=== PATIENT | female | born 1950 | race Caucasian/White ===

== ENCOUNTER 2019-05-08 15:18 | Observation (INO) | payer OTHER ==
[2019-05-08 16:20] LABS: Absolute Lymphocytes (CBC) 1.9 K/uL (0.7-4.9); Basophils % 1.1 % (0-1.3); Hematocrit 44.8 % (36.0-45.0); Lymphocytes % 23.1 % (15.3-44.8); MPV 11.3 fL (7.6-11.3); RBC Red Blood Cell Count 4.82 M/uL (3.86-4.86)
[2019-05-08 16:23] LABS: Protime INR 1.04
--- NOTE | 2019-05-08 16:36 | RAD REPORT ---
EXAM DESCRIPTION: Miguelina Single View05/08/2019 4:31 pm CLINICAL HISTORY: Chest pain COMPARISON: 2010 FINDINGS: The lungs appear clear of acute infiltrate. The heart is normal size IMPRESSION: No acute abnormalities displayed
[2019-05-08 16:37] LABS: ALT/SGPT 22 U/L (12-78); AST/SGOT 22 U/L (15-37); Albumin 3.6 g/dL (3.4-5.0); Alkaline Phosphatase 102 U/L (45-117); BUN Blood Urea Nitrogen 11 mg/dL (7-18); Bicarbonate 24 mmol/L (21-32); Bilirubin Direct 0.1 mg/dL (0-0.2); Bilirubin Total 0.6 mg/dL (0.2-1.0); Glucose Level 90 mg/dL (74-106); Magnesium 2.2 mg/dL (1.8-2.4); NT PRO-BNP 29 pg/mL (<125); Potassium 3.9 mmol/L (3.5-5.1); Protein, Total 7.8 g/dL (6.4-8.2); Sodium Level 139 mmol/L (136-145); Troponin (Emerg Dept Use Only) < 0.02 ng/mL (0.0-0.045)
--- NOTE | 2019-05-08 18:03 | RAD REPORT ---
EXAM DESCRIPTION: CT - Angio Aorta For Dissection - 05/08/2019 5:40 pm CLINICAL HISTORY: . Chest and abd pain COMPARISON: None TECHNIQUE: Computed tomography angiography of the chest, abdomen pelvis were obtained. 100 cc Isovue 370 was administered intravenously. Coronal and sagittal reconstruction were performed. MIP 3D reconstruction was performed All CT scans are performed using dose optimization technique as appropriate and may include automated exposure control or mA/KV adjustment according to patient size. FINDINGS: An aortic dissection is not seen. An aortic aneurysm is not displayed. The celiac, SMA and ANA MARÍA are patent . A lung consolidation is not present. A pericardial effusion is not seen. A pleural effusion is not n oted. Mild fatty liver The Spleen, pancreas adrenals kidneys demonstrate no significant abnormality. The appendix is normal. Small to moderate hiatal hernia Diverticula stem from the colon without evidence of diverticulitis. 13 millimeter fatty structure abu ts the sigmoid colon which may indicate remote epiploic appendagitis. No stranding next to the sigmoi d colon seen. Marked osteoarthritis left hip Small umbilical hernia Cystocele IMPRESSION: Negative for an aortic dissection.
--- NOTE | 2019-05-08 19:47 | EDPHYS ---
Physician Documentation [facility] Name: Carolyn Cordoba Age: 69 yrs Sex: Female : 1950 Arrival Date: 05/08/2019 Time: 15:19 Bed 13 Private MD: Rosenda Valadez F ED Physician Candido Vegas HPI: 05/08 15:42 This 69 yrs old Female presents to ER via Ambulatory with complaints of Chest cp Pain, Numbness Of Arm. 15:42 The patient or guardian reports chest pain that is located primarily in the anterior cp chest wall, left. 15:42 Onset: yesterday. The pain radiates to the left arm, left neck. Associated signs and cp symptoms: Pertinent positives: numbness of left arm, Pertinent negatives: abdominal pain, diaphoresis, lower extremity pain, lower extremity swelling, recent travel, shortness of breath, syncope. The chest pain is described as a heaviness, a pressure. Duration: The patient or guardian reports multiple episodes, that wax and wane. 15:42 Severity of pain: in the emergency department the pain has improved. cp Historical: - Allergies: 15:26 Xanax; tw2 - Home Meds: 15:26 meloxicam oral oral [Active]; trelegt [Active]; dycycline [Active]; tw2 - PMHx: 15:26 GERD; COPD; tw2 - PSHx: 15:26 None; tw2 - Immunization history:: Adult Immunizations. - Social history:: Smoking status: . - Ebola Screening: : Patient denies travel to an Ebola-affected area in the 21 days before illness onset. ROS: 15:44 Constitutional: Negative for body aches, chills, fever, poor PO intake. cp 15:44 Eyes: Negative for injury, pain, redness, and discharge. cp 15:44 ENT: Negative for drainage from ear(s), ear pain, sore throat, difficulty swallowing, difficulty handling secretions. 15:44 Cardiovascular: Positive for chest pain, Negative for edema, palpitations. 15:44 Respiratory: Negative for cough, shortness of breath, wheezing. 15:44 Abdomen/GI: Negative for abdominal pain, nausea, vomiting, and diarrhea, constipation, black/tarry stool, rectal bleeding. 15:44 Back: Negative for injury or acute deformity, decreased range of motion, radiated pain. 15:44 : Negative for urinary symptoms. 15:44 MS/extremity: Positive for pain, paresthesias, of the left arm, Negative for injury or acute deformity, decreased range of motion. 15:44 Skin: Negative for cellulitis, rash. 15:44 Neuro: Negative for altered mental status, dizziness, headache, syncope, weakness. 15:44 All other systems are negative. Exam: 15:45 ECG was reviewed by the Attending Physician. cp 15:50 Constitutional: The patient appears in no acute distress, alert, awake, cp non-diaphoretic, non-toxic, well developed, well nourished. 15:50 Head/Face: Normocephalic, atraumatic. cp 15:50 Eyes: Periorbital structures: appear normal, Conjunctiva: normal, no exudate, no injection, Sclera: no appreciated abnormality, Lids and lashes: appear normal, bilaterally. 15:50 ENT: External ear(s): are unremarkable, Nose: is normal, Mouth: is normal, Posterior pharynx: is normal, airway is patent, no erythema, no exudate. 15:50 Neck: ROM/movement: is normal, is supple, without pain, no range of motions limitations, no nuchal rigidity. 15:50 Chest/axilla: Inspection: normal, Palpation: is normal, no crepitus, no tenderness. 15:50 Cardiovascular: Rate: tachycardic, Rhythm: regular, Pulses: Pulses are 2+ in right radial artery and left radial artery. Edema: is not appreciated, JVD: is not appreciated. 15:50 Respiratory: the patient does not display signs of respiratory distress, Respirations: normal, no use of accessory muscles, no retractions, no splinting, no tachypnea, labored breathing, is not present, Breath sounds: are clear throughout, no decreased breath sounds, no stridor, no wheezing. 15:50 Abdomen/GI: Inspection: abdomen appears normal, Palpation: abdomen is soft and non-tender, in all quadrants. 15:50 Back: pain, is absent, ROM is normal. 15:50 Musculoskeletal/extremity: Exam is negative for decreased range of motion, deformity, injury. 15:50 Skin: no rash present. 15:50 Neuro: Orientation: to person, place \T\ time. Mentation: is normal, Cerebellar function: is grossly normal, Motor: moves all fours, strength is normal, Sensation: is normal. Vital Signs: 15:23 BP 169 / 102; Pulse 117; Resp 18; Temp 97.9(TE); Pulse Ox 100% on R/A; Weight 104.33 kg tw2 (R); Height 5 ft. 2 in. (157.48 cm); Pain 8/10; 16:26 BP 152 / 66; Pulse 78; Resp 16; Pulse Ox 96% on R/A; ph 18:00 BP 151 / 64; Pulse 76; Resp 18; Pulse Ox 99% on R/A; ph 19:20 BP 154 / 85; Pulse 73; Resp 18; Pulse Ox 97% on R/A; lp1 20:30 BP 144 / 80; Pulse 67; Resp 18; Temp 98.4(O); Pulse Ox 99% on R/A; Pain 9/10; lp1 15:23 Body Mass Index 42.07 (104.33 kg, 157.48 cm) tw2 MDM: 15:31 Patient medically screened. cp 19:40 Data reviewed: vital signs, nurses notes, lab test result(s), EKG, radiologic studies, cp plain films. 19:40 Differential diagnosis: abnormal EKG, acute myocardial infarction, pleurisy, pneumonia, cp pneumothorax, pulmonary embolus, stable angina, thoracic aortic disection, unstable angina. The patient was given aspirin in the Emergency Department. Test interpretation: by ED physician or midlevel provider: ECG, plain radiologic studies. 19:41 Physician consultation: Rosenda Valadez MD was called at 19:41, left message on [email or web address].cp 20:05 Physician consultation: Rosenda Valadez MD was contacted at 20:05, regarding admission, cp to the telemetry unit. patient's condition. 05/08 15:31 Order name: Basic Metabolic Panel; Complete Time: 16:48 cp 05/08 16:55 Interpretation: Normal except: GFR 53. cp 05/08 15:31 Order name: CBC with Diff; Complete Time: 16:24 cp 05/08 16:24 Interpretation: Reviewed. cp 05/08 15:31 Order name: LFT's; Complete Time: 16:48 cp 05/08 16:55 Interpretation: Normal except: GLOB 4.2; A/G 0.9. cp 05/08 15:31 Order name: Magnesium; Complete Time: 16:48 cp 05/08 15:31 Order name: NT PRO-BNP; Complete Time: 16:48 cp 05/08 15:31 Order name: PT-INR; Complete Time: 16:48 cp 05/08 15:31 Order name: Troponin (emerg Dept Use Only); Complete Time: 16:48 cp 05/08 16:55 Interpretation: TROPED < 0.02; Reviewed. cp 05/08 20:23 Order name: Basic Metabolic Panel EDMS 05/08 20:23 Order name: Basic Metabolic Panel EDMS 05/08 20:23 Order name: CBC with Automated Diff EDMS 05/08 20:23 Order name: CBC with Automated Diff EDMS 05/08 20:23 Order name: Troponin I EDMS 05/08 20:23 Order name: Troponin I EDMS 05/08 20:24 Order name: Troponin I EDMS 05/08 15:31 Order name: XRAY Chest (1 view); Complete Time: 16:48 cp 05/08 15:31 Order name: EKG; Complete Time: 15:32 cp 05/08 15:31 Order name: Cardiac monitoring; Complete Time: 16:06 cp 05/08 15:31 Order name: EKG - Nurse/Tech; Complete Time: 16:06 cp 05/08 15:31 Order name: IV Saline Lock; Complete Time: 16:06 cp 05/08 15:31 Order name: Labs collected and sent; Complete Time: 16:06 cp 05/08 16:50 Order name: CT Aorta for Dissection; Complete Time: 18:21 cp 05/08 18:22 Interpretation: Report reviewed. cp 05/08 19:51 Order name: Diet Regular; Complete Time: 19:51 cp 05/08 20:21 Order name: CONS Physician Consult EDUT 05/08 20:23 Order name: EKG Electrocardiogram EDUT 05/08 20:23 Order name: EKG Electrocardiogram EDUT 05/08 20:23 Order name: EKG Electrocardiogram EDUT 05/08 20:23 Order name: EKG Electrocardiogram EDMS 05/08 15:31 Order name: O2 Per Protocol; Complete Time: 16:06 cp 05/08 15:31 Order name: O2 Sat Monitoring; Complete Time: 16:06 cp EC:45 Rate is 85 beats/min. Rhythm is regular. IN interval is normal. QRS interval is normal. cp QT interval is normal. T waves are Inverted in lead III. Interpreted by me. Reviewed by me. Administered Medications: 18:18 Drug: Aspirin 325 mg Route: PO; ph 18:40 Follow up: Response: No adverse reaction ph 20:00 Drug: Metoprolol 25 mg Route: PO; lp1 21:10 Follow up: Response: No adverse reaction lp1 20:38 Drug: morphine 2 mg {Note: RASS 0.} Route: IVP; Site: right wrist; lp1 21:09 Follow up: Response: Marked relief of symptoms; RASS: Alert and Calm (0) lp1 Disposition: 05/09 07:21 Co-signature as Attending Physician, Candido Vegas MD I agree with the assessment and dov plan of care. Disposition: 05/08/19 19:46 Hospitalization ordered by Rosenda Valadez for Observation. Preliminary diagnosis is Chest pain, unspecified. - Bed requested for Telemetry/MedSurg (observation). - Status is Observation. lp1 - Condition is Stable. - Problem is new. - Symptoms have improved. UTI on Admission? No Signatures: Dispatcher [employer] EDMS Haley Hernandez RN RN mw Anderson, Corey, MD MD cha Pena, Laura, RN RN lp1 Eugenia Brown RN RN Candido Machado PA PA cp Wise, Tara, RN RN tw2 Corrections: (The following items were deleted from the chart) 05/08 20:31 19:46 Hospitalization Ordered by Rosenda Valadez MD for Observation. Preliminary diagnosis is Chest pain, unspecified. Bed requested for Telemetry/MedSurg (observation). Status is Observation. Condition is Stable. Problem is new. Symptoms have improved. UTI on Admission? No. cp 21:11 20:31 05/08/2019 19:46 Hospitalization Ordered by Rosenda Valadez MD for Observation. lp1 Preliminary diagnosis is Chest pain, unspecified. Bed requested for Telemetry/MedSurg (observation). Status is Observation. Condition is Stable. Problem is new. Symptoms have improved. UTI on Admission? No. mw
--- NOTE | 2019-05-08 19:47 | ER ---
Nurse's Notes [facility] Name: Carolyn Cordoba Age: 69 yrs Sex: Female : 1950 Arrival Date: 05/08/2019 Time: 15:19 Bed 13 Private MD: Rosenda Valadez F Diagnosis: Chest pain, unspecified Presentation: 05/08 15:23 Presenting complaint: Patient states: i started having chest pain yesterday its like a tw2 squeezing pressure in my chest. Transition of care: patient was not received from another setting of care. Onset of symptoms was May 08, 2019. Risk Assessment: Do you want to hurt yourself or someone else? Patient reports no desire to harm self or others. Initial Sepsis Screen: Does the patient meet any 2 criteria? No. Patient's initial sepsis screen is negative. Does the patient have a suspected source of infection? No. Patient's initial sepsis screen is negative. Care prior to arrival: None. 15:23 Method Of Arrival: Ambulatory tw2 15:23 Acuity: MADI 3 tw2 Triage Assessment: 15:26 General: Appears in no apparent distress. obese, Behavior is calm, cooperative, tw2 appropriate for age. Pain: Complains of pain in chest. Cardiovascular: Reports chest pain. Historical: - Allergies: 15:26 Xanax; tw2 - Home Meds: 15:26 meloxicam oral oral [Active]; trelegt [Active]; dycycline [Active]; tw2 - PMHx: 15:26 GERD; COPD; tw2 - PSHx: 15:26 None; tw2 - Immunization history:: Adult Immunizations. - Social history:: Smoking status: . - Ebola Screening: : Patient denies travel to an Ebola-affected area in the 21 days before illness onset. Screenin:26 Abuse screen: Denies threats or abuse. Nutritional screening: No deficits noted. tw2 Tuberculosis screening: No symptoms or risk factors identified. Fall Risk Secondary diagnosis (15 points) impaired mobility, Ambulatory Aid- Crutches/Cane/Walker (15 pts). Assessment: 15:26 Pain: Pain radiates to left arm Pain began 1 day ago. tw2 16:00 General: Appears in no apparent distress. comfortable, obese, well groomed, Behavior is ph cooperative, appropriate for age, anxious. Pain: Complains of pain in anterior aspect of left upper chest Pain radiates to left jaw Quality of pain is described as pressure. Neuro: Level of Consciousness is awake, alert, obeys commands, Oriented to person, place, time, situation. Cardiovascular: Reports chest pain, Denies nausea, shortness of breath, Chest pain quality is pressure, is located in left anterior chest wall radiates to left jaw(s) began 1 day ago. Respiratory: Airway is patent Respiratory effort is even, unlabored, Respiratory pattern is regular, symmetrical. Derm: Skin is intact, is fragile, is thin, Skin is pink, warm \\T\\ dry. Musculoskeletal: Circulation, motion, and sensation intact. Range of motion: intact in all extremities. 17:00 Reassessment: Patient appears in no apparent distress at this time. Patient and/or ph family updated on plan of care and expected duration. Pain level reassessed. Patient is alert, oriented x 3, equal unlabored respirations, skin warm/dry/pink. 18:39 Reassessment: Patient appears in no apparent distress at this time. Patient and/or ph family updated on plan of care and expected duration. Pain level reassessed. Patient is alert, oriented x 3, equal unlabored respirations, skin warm/dry/pink. 19:20 Reassessment: Patient appears in no apparent distress at this time. Patient is alert, lp1 oriented x 3, equal unlabored respirations, skin warm/dry/pink. Patient decides to stay and be admitted, Provider notified. 20:18 Reassessment: Provider notified of patient complaint of continued pain to left upper lp1 chest, states "it comes and goes"; verbal order for Morphine 2mg IV. Vital Signs: 15:23 BP 169 / 102; Pulse 117; Resp 18; Temp 97.9(TE); Pulse Ox 100% on R/A; Weight 104.33 kg tw2 (R); Height 5 ft. 2 in. (157.48 cm); Pain 8/10; 16:26 BP 152 / 66; Pulse 78; Resp 16; Pulse Ox 96% on R/A; ph 18:00 BP 151 / 64; Pulse 76; Resp 18; Pulse Ox 99% on R/A; ph 19:20 BP 154 / 85; Pulse 73; Resp 18; Pulse Ox 97% on R/A; lp1 20:30 BP 144 / 80; Pulse 67; Resp 18; Temp 98.4(O); Pulse Ox 99% on R/A; Pain 9/10; lp1 15:23 Body Mass Index 42.07 (104.33 kg, 157.48 cm) tw2 ED Course: 15:19 Patient arrived in ED. mr 15:19 Rosenda Valadez MD is Private Physician. mr 15:23 Arm band placed on. EKG completed in triage. Results shown to MD. tw2 15:23 Bed in low position. Call light in reach. quenching machine operator on. Pulse ox on. NIBP on. tw2 15:24 Triage completed. tw2 15:26 Patient maintains SpO2 saturation greater than 95% on room air. tw2 15:30 Candido Philip PA is PHCP. cp 15:30 Candido Vegas MD is Attending Physician. cp 15:36 Eugenia Brown RN is Primary Nurse. ph 15:42 EKG done, by administrative support technician. reviewed by Candido ESPINOSA. sm3 16:31 XRAY Chest (1 view) In Process Unspecified. EDMS 17:40 CT Aorta for Dissection In Process Unspecified. EDMS 19:33 No provider procedures requiring assistance completed. lp1 19:45 Rosenda Valadez MD is Hospitalizing Provider. cp 20:19 Patient admitted, IV remains in place. lp1 Administered Medications: 18:18 Drug: Aspirin 325 mg Route: PO; ph 18:40 Follow up: Response: No adverse reaction ph 20:00 Drug: Metoprolol 25 mg Route: PO; lp1 21:10 Follow up: Response: No adverse reaction lp1 20:38 Drug: morphine 2 mg {Note: RASS 0.} Route: IVP; Site: right wrist; lp1 21:09 Follow up: Response: Marked relief of symptoms; RASS: Alert and Calm (0) lp1 Outcome: 19:46 Decision to Hospitalize by Provider. cp 20:19 Condition: stable lp1 20:19 Instructed on the need for admit. 20:55 Admitted to Tele via wheelchair, room 421, with chart, Report called to ERNESTO Mcclain lp1 21:11 Patient left the ED. lp1 Signatures: Dispatcher [employer] HIRENNY Reema Gutierrez Laura, RN RN lp1 Eugenia Brown, RN RN ph Tamera, JESÚS Rey cp, Tara, RN RN tw2 Aury Marquez 3
[2019-05-08] MEDS ORDERED: METOPROLOL TAR 25 MG TAB ONE (19:58)
[2019-05-08] MEDS ORDERED: ONDANSETRON 4 MG/2 ML VIAL IV PRN (20:19)
[2019-05-08] MEDS ORDERED: MORPHINE 4 MG/ML SYR IV PRN (20:19)
[2019-05-08] MEDS ORDERED: ZOLPIDEM TARTRATE 10 MG TABLET PO PRN (20:21)
[2019-05-08] MEDS ORDERED: MORPHINE 2 MG/ML SYR ONE (20:27)
[2019-05-08] MEDS ORDERED: METOPROLOL XL 25 MG TAB PO SCH (21:00)
[2019-05-08 21:30] VITALS: BMI 41.0
[2019-05-09 04:06] LABS: Absolute Lymphocytes (CBC) 2.6 K/uL (0.7-4.9); Basophils % 1.2 % (0-1.3); Hematocrit 37.8 % (36.0-45.0); MPV 11.7 fL (7.6-11.3); RBC Red Blood Cell Count 4.13 M/uL (3.86-4.86)
[2019-05-09 04:14] LABS: Potassium 3.9 mmol/L (3.5-5.1)
[2019-05-09 04:38] LABS: Blood Morphology Comment NOT SEEN (NOT SEEN); Platelet Estimate ADEQ; Urine White Blood Cell Casts OK
[2019-05-09 07:42] LABS: Urine Appearance CLEAR; Urine Bilirubin NEGATIVE (NEG); Urine Blood 2+ (NEG); Urine Color YELLOW; Urine Glucose NEGATIVE (NEG); Urine Protein 1+ (NEG); Urine Specific Gravity >=1.030 (1.005-1.030); Urine Urobilinogen 0.2 mg/dL (0.2-1.0)
[2019-05-09] MEDS ORDERED: INFLUENZA VACCINE (for 3y+) 0.5 ML DOSE IMVAC ONE (08:00)
[2019-05-09 08:08] LABS: Urine Bacteria 20-50 /HPF (<20); Urine Culture Reflex Order NOT NEEDED
[2019-05-09] MEDS ORDERED: ASPIRIN EC 81 MG TAB PO SCH (09:00)
--- NOTE | 2019-05-09 10:19 | EKG ---
Test Date: 2019-05-08 Test Time: 15:25:20 Research Environmental Scientist: JORGE L MEASUREMENT RESULTS: Intervals: Rate: 85 AR: 186 QRSD: 84 QT: 350 QTc: 416 [place]: P: 27 AR: 186 QRS: -48 T: 1 INTERPRETIVE STATEMENTS: Normal sinus rhythm Pulmonary disease pattern Left anterior fascicular block Nonspecific T wave abnormality Abnormal ECG No previous ECG available for comparison Electronically Signed On 05-09-19 10:16:21 CDT by Douglas Elizabeth
--- NOTE | 2019-05-09 10:26 | ECHO ---
HEIGHT: 5 ft 3 in WEIGHT: 231 lb 9.6 oz DATE OF STUDY: 05/09/[address]: Douglas Elizabeth MD 2-DIMENSIONAL: YES M.MODE: YES DOPPLER: YES COLOR FLOW: YES TDS: NO PORTABLE: YES DEFINITY: NO BUBBLE STUDY: NO DIAGNOSIS: CHEST PAIN CARDIAC HISTORY: CATHERIZATION: NO SURGERY: NO PROSTHETIC VALVE: NO PACEMAKER: NO MEASUREMENTS (cm) DIASTOLIC (NORMALS) SYSTOLIC (NORMALS) IVSd 1.0 (0.6-1.2) LA Diam (1.9-4.0) LVEF 68% LVIDd 4.6 (3.5-5.7) LVIDs 2.9 (2.0-3.5) %FS 38% LVPWd 1.1 (0.6-1.2) Ao Diam 3.0 (2.0-3.7) 2 DIMENSIONAL ASSESSMENT: RIGHT ATRIUM: NORMAL LEFT ATRIUM: NORMAL RIGHT VENTRICLE: NORMAL LEFT VENTRICLE: NORMAL TRICUSPID VALVE: NORMAL MITRAL VALVE: NORMAL PULMONIC VALVE: NORMAL AORTIC VALVE: NORMAL PERICARDIAL EFFUSION: NONE AORTIC ROOT: NORMAL LEFT VENTRICULAR WALL MOTION: NORMAL. DOPPLER/COLOR FLOW: NORMAL. COMMENTS: NORMAL 2D ECHO WITH DOPPLER. NO WALL MOTION ABNORMALITY. NO EFFUSION. TECHNOLOGIST: DEBO GARCÍA
[2019-05-09] MEDS ORDERED: TRAZODONE 50 MG TABLET PO PRN (11:12)
[2019-05-09] MEDS ORDERED: predniSONE 10 MG TAB PO PRN (11:12)
[2019-05-09] MEDS ORDERED: TRAMADOL HCL 50 MG TAB PO SCH (12:00)
--- NOTE | 2019-05-09 12:37 | EKG ---
Test Date: 2019-05-09 Test Time: 07:28:21 Boom Supervisor: ZHANG MEASUREMENT RESULTS: Intervals: Rate: 51 VT: 206 QRSD: 86 QT: 464 QTc: 427 [place]: P: 14 VT: 206 QRS: -25 T: 9 INTERPRETIVE STATEMENTS: Sinus bradycardia Otherwise normal ECG Compared to ECG 05/08/2019 15:25:20 Sinus rhythm no longer present Left anterior fascicular block no longer present T-wave abnormality no longer present Electronically Signed On 05-09-19 12:36:28 CDT by Douglas Elizabeth
[2019-05-09 14:54] VITALS: O2SAT 97
[2019-05-09 17:08] VITALS: BP 150/85; TEMP 97
--- NOTE | 2019-05-09 18:28 | CON ---
Date of Consultation: 05/09/2019 She is a patient of Dr. Valadez. I saw the patient on 05/09/2019. Reason For Consultation: Chest pain and arm pain. History Of Present Illness: Ms. Cordoba is a 69-year-old white woman without any previous cardiac hist ory. She has a history of COPD, gastroesophageal reflux disease, and dyslipidemia. She came in with symptoms that she believes are secondary to shingles. Apparently, she had the same exact symptoms a bout 2 years ago when she developed symptoms. She complained of upper left chest, left shoulder, helen k numbness. No pain per se. Denied any nausea, vomiting, diaphoresis, PND, orthopnea, pedal edema, palpitations, or syncope. By the time I saw her, she had normal labs, normal chest x-ray, normal CT angiogram of the chest. Ms. Cordoba states she has had 3 stress tests in the past; the last one was ab out 2 years ago prior to her hip surgery. All of which were normal. She states that she does need a nother stress test sometimes before next year when she is going to have another hip surgery done. Past Medical History: As stated above. Allergies: SHE IS ALLERGIC TO XANAX. Review of Systems: Negative. Social History: Negative. Family History: Noncontributory. Medications: Lipitor, prednisone, and Protonix. Physical Examination: General: She is pleasant, no acute distress. Vital signs: Stable. Sinus rhythm. HEENT: Negative. Neck: Supple with no bruit, lymphadenopathy, JVD, or thyromegaly. Chest: Clear to auscultation and percussion. Cardiac: Regular rhythm and rate. No murmurs, gallops, or rubs. Abdomen: Benign. Extremities: No clubbing, cyanosis, or edema. Diagnostic Data: Normal. Impression And Plan: Atypical chest pain, possibly secondary to neuropathy may be shingles or possib ly cervical spondylosis. I doubt we are dealing with any cardiac issues. Echocardiogram that was do ne is normal. I think she can go home. We can make arrangements for her to have an outpatient stres s test prior to her next hip surgery. She agreed to that. Her chronic obstructive pulmonary disease , gastroesophageal reflux disease, and dyslipidemia are well controlled. Case was discussed with Dr. Valadez. JENY/FELIPE Voice ID: [id number] Report ID: [id number]
[2019-05-09] MEDS ORDERED: GABAPENTIN 300 MG CAP PO SCH (21:00)
[2019-05-09] MEDS ORDERED: ATORVASTATIN 10 MG TAB PO SCH (21:00)
[2019-05-09] MEDS ORDERED: AMOX/K CLAV 875 MG TAB PO SCH (21:00)
--- NOTE | 2019-05-09 23:19 | HP ---
Date of Admission: 05/08/2019 History Of Present Illness: A 69-year-old female with history of hypertension, presented to the [facility] room with complaint of chest pain in the anterior left substernal area. She gave me a history that was associated with left shoulder pain and think coming and going for a few days, stays for a fe w minutes, comes at rest also. No nausea. No vomiting. No palpitation. No other complaints. Review of Systems: Cardiovascular: No dizziness. No palpitation. Respiratory: No complaints. Genitourinary: No complaints. Gastrointestinal: No complaints. Skeletomuscular: Chronic low back pain and multiple joint osteoarthritic pains. Neurological: No complaints. Past Medical History: 1.Hypertension. 2.Hyperlipidemia. 3.Osteoarthritis, multiple joints. 4.Chronic low back pain. 5.Gastroesophageal reflux disease. 6.Chronic obstructive pulmonary disease. Social History: No smoking, alcohol, or drug abuse history. Family History: Noncontributing. Medications: Include Lipitor 10 mg p.o. daily, gabapentin 300 mg p.o. b.i.d., meloxicam 50 mg p.o. d aily, Protonix 40 mg p.o. daily, prednisone 20 mg p.o. daily, tramadol 50 mg p.o. daily, trazodone 10 0 mg p.o. daily. Physical Examination: Vital Signs: Blood pressure 130/60, pulse 60, temperature 97.3. Heart: Regular rate and rhythm. Chest: Clear to auscultation. Abdomen: Soft, nontender. No hepatosplenomegaly. Bowel sounds are normoactive. Extremities: No edema, cyanosis. Peripheral pulses are felt. Neurological: Alert, oriented, nonfocal. Grossly intact. Diagnostic Data: Chest x-ray, no acute pathology. EKG showed normal sinus rhythm. Pulmonary diseas e pattern. Left anterior fascicular block. Nonspecific T-wave abnormality. CT scan of the chest sh owed negative for aortic dissection. CBC noted. Chemistry, GFR 57. Cardiac enzymes negative. Urin alysis; 2+ blood, 1+ leukocyte esterase, and white BC is 10 to 20. Assessment And Plan: 1.Chest pain. The patient with increased risk for coronary artery disease. The patient is being ad mitted and we will do serial cardiac enzymes. Consult Cardiology, put her on telemetry. 2.Urinary tract infection. We will put patient on Augmentin. Pending culture. 3.Rest of patient's chronic medical problems, we will continue current medicines. 4.Have consulted Cardiology. Look orders for details. DAVID/FELIPE Voice ID: [id number]
[2019-05-10] MEDS ORDERED: MELOXICAM 7.5 MG TAB PO SCH (09:00)
[2019-05-10] MEDS ORDERED: PANTOPRAZOLE 40MG TABLET PO SCH (09:00)
--- OUTSIDE RECORDS SUMMARY | 2019-05-21 14:07 | XMS REPORT ---
:1950 [facility] Address [address] [place] [address] Care Team Providers Name Role Phone Unavailable Unavailable Unavailable Problems This patient has no known problems. Allergies, Adverse Reactions, Alerts This patient has no known allergies or adverse reactions. Medications This patient has no known medications.
== END 2019-05-09 16:37 | disposition home or self-care (01) ==
LOC: ER 15:18 → ERHOLD 20:32 → 4TH 20:57
PROVIDERS: ADMIT Internal Medicine; ATTEND Internal Medicine
DX: R07.89 Other chest pain (principal); N39.0 Urinary tract infection, site not specified; I10 Essential (primary) hypertension; E78.5 Hyperlipidemia, unspecified; M15.9 Polyosteoarthritis, unspecified; M54.5 Low back pain; K21.9 Gastro-esophageal reflux disease without esophagitis; J44.9 Chronic obstructive pulmonary disease, unspecified; Z23 Encounter for immunization
CPT/HCPCS: 93005 ×2; 93306; 85025 ×2; 81001; 80048 ×2; 36415; 83735; 85610; 80076; 84484 ×3; 83880; 71275; 74175; 71045; 90471; 96374; 99285; Q9967; Q2035; J2270; G0378 ×3

== ENCOUNTER 2019-11-28 11:01 | Inpatient (IN) | payer OTHER ==
--- NOTE | 2019-11-28 14:27 | R.PREADM ---
SCREENING DATE AND TIME 11/28/2019 11:08 (CDT) ANTICIPATED REHAB ADMISSION DATE 11/28/2019 REFERRING FACILITY [facility] REFERRAL DATE AND TIME 11/28/2019 11:09 (CDT) ACUTE ADMIT DATE 11/22/2019 Previous Rehabilitation(s): No. REFERRING PHYSICIAN Dr. SHIKHA PÉREZ REHAB FACILITY [facility] CLINICAL LIAISON Gloria Mace RN PHYSICIAN REVIEWER Dr. Moi Barry M.D. [facility]# [id number] [id number] NAME DESIREE CORDOBA ADDRESS [address] [facility] PHONE [facility] [id number] DATE OF 1950 AGE 69 SSN# [id number] GENDER female MARITAL STATUS Single (Never ) RACE white [facility] PRE-HOSPITAL LIVING SETTING 01 - Home (private home/apt. board/care, assisted living, chcf, transitional living) HOME TYPE AND DETAILS Type of home: single family house # of levels in the residence: 1 # of steps within the residence: 0 # of steps to enter the residence: 0 PRE-HOSPITAL LIVING WITH Alone FAMILY SUPPORT Yes PRIMARY FAMILY CONTACT NAME ESTEBAN DIETRICH PRIMARY FAMILY CONTACT PHONE PRIMARY FAMILY CONTACT RELATIONSHIP Sister PHONE PRIMARY FAMILY CONTACT ON ADM.? no IS PRIMARY FAMILY CONTACT AUTH. REP.? no 1ST EMERGENCY CONTACT ESTEBAN DIETRICH 1ST CONTACT PHONE 1ST CONTACT RELATIONSHIP Sister PHONE 1ST CONTACT ON ADM. no IS 1ST CONTACT AUTH. REP.? no 2ND EMERGENCY CONTACT DAVEY CORDOBA 2ND CONTACT PHONE 2ND CONTACT RELATIONSHIP MOTHER PHONE 2ND CONTACT ON ADM.? no PATIENT EMPLOYMENT STATUS Retired (for age) PATIENT EMPLOYER No Employer PAYOR INFORMATION: 1ST PAYOR NAME Medicare 1ST PAYOR PHONE 1ST PAYOR INJURY/ILLNESS DUE TO ACCIDENT? Yes ANOTHER LIBERTARIAN RESPONSIBLE? No PRIMARY REHAB/ACUTE DIAGNOSIS: LEFT DISTAL FEMORAL SHAFT PERIPROSTHETIC FRACTURE ONSET DATE 11/22/2019 REHAB IMPAIRMENT CATEGORY (SHAYY): 07 Fracture of LE (FracLE) does NOT meet 60% rule AFFECTED EXTREMITIES: LLE PRIMARY DIAGNOSIS-RELATED SURGERIES: Emergency Femur (Shaft) Fracture Left Femur ORIMN with plate fixation augmentation- performed by Dr. SHIKHA PÉREZ on 11/23/2019 COMORBID REHAB/ACUTE DIAGNOSES: - Tier 3 Morbid (severe) obesity due to excess calories (E66.01) SUMMARY OF ACUTE HOSPITALIZATION: Pt. is a 69 yo Right-handed white female. On 11/22/2019 she was admitted to [facility] and underwent emergency surgery for LEFT DISTAL FEMO RAL SHAFT PERIPROSTHETIC FRACTURE (Femur (Shaft) Fracture) by Dr. SHIKHA PÉREZ. Pre-morbidly, Pt. was independent/mod-I in Locomotion, Balance, Social Cognition, Transfers Control, Sphincter Control, Self-Care, and Communication; and she had good Endurance and Safety Awareness. Currently, she has deficits of Locomotion, Balance, Transfers Control, Self-Care, and Endurance. Pt. is now referred to [facility] for acute in-patient rehabilitation in order to maximize patient's functional independence in activities of daily living, strength, ROM, and mobi lity. Patient has realistic goal of being discharged at assistance level 7-Ind to reside at [facility]HER[facility]S HOME w ith Family/Relatives. Ms. Desiree Cordoba is a 69 year old female who prior to her fall lived at home independently alone. Ms. Cordoba was independent and active in the community, performing all of her own ADLs including driving, shopping and housekeeping. Ms. Cordoba had a fall from standing 11/22/2019 and suffered a left distal femoral shaft periprosthetic fracture. Ms. Cordoba underwent emergency left femur ORIMN with plate fixation augmentation 11/23/2019. Ms. Cordoba is now medically stable but in need of 24-hour nursing, doctor supervision and oversight while receiving active and ongoing intensive therapy (PT, OT and/or SPT). The patient is reasonably expected to participate in 3 hours of therapy a day/15 hours per week and receive care with an intensive interdisciplinary approach. PAST MEDICAL HISTORY Morbid (severe) obesity due to excess calories (E66.01) asthma Chronic obstructive pulmonary disease, unspecified (J44.9) Esophageal reflux Fibromyalgia (M79.7) Hyperlipidemia, unspecified (E78.5) SHINGLES Sleep apnea MEDICATION ALLERGIES: XANAX ZINC ENVIRONMENTAL ALLERGIES: - Substance Allergies None Known - Other Allergies None Known CODE STATUS: Full code WEIGHT/HEIGHT/BMI: WEIGHT 260 lbs HEIGHT 5' 3" BMI 46.1 DIET: - Diet Type Regular - Diet - Solid Texture Regular - Diet - Liquid Texture Regular - Tube Feed N/A SKIN DIAGRAM: Incision on Left upper leg; extent - small; stage - NS(Not Stageable). Treatment - Per Physician's Or ders. REVIEW OF SYSTEMS: - Gen Alert and awake Lying in bed No apparent distress Oriented to: person, time, and place - Vital Signs Temperature: 97.1 F SBP/DBP: 127/63 Pulse: 72 Resp: 16 Vital signs stable, afebrile - CVS RRR VITAL SIGNS Temperature: 97.1 F SBP/DBP: 127/63 Pulse: 72 Resp: 16 Vital signs stable, afebrile MEDICATIONS/TREATMENT: Other- See attached MAR (Medication Administration Record). CURRENT SPHINCTER CONTROL: Pre-hospital bladder status: unspecified # of bladder accidents in the last 7 days prior to screenin Pre-hospital bowel status: unspecified # of bowel accidents in the last 7 days prior to screenin Last Bowel Movement Date: 11/28/2019 CURRENT LOCOMOTION STATUS: distance walked 16 feet DETAILED CURRENT FUNCTIONAL STATUS: - Bladder accident frequency: Ind - No accidents in the past 7 days - Bowel accident frequency: Ind - No accidents in the past 7 days - Walking score based on distance walked: 0(N/A) - Wheelchair score based on distance traveled: 0(N/A) QI SCORES: - Self-Care A. Eating 05-Setup or clean-up assistance B. Oral hygiene 05-Setup or clean-up assistance C. Toileting hygiene 03-Partial/moderate assistance E. Shower/bathe self 88-Not attempted due to medical condition or safety concerns F. Upper body dressing 03-Partial/moderate assistance G. Lower body dressing 02-Substantial/maximal assistance H. Putting on/taking off footwear 02-Substantial/maximal assistance - Mobility A. Roll left and right 04-Supervision or touching assistance B. Sit to lying 04-Supervision or touching assistance C. Lying to sitting on side of bed 04-Supervision or touching assistance D. Sit to stand 03-Partial/moderate assistance E. Chair/[id number] transfer 03-Partial/moderate assistance F. Toilet transfer 03-Partial/moderate assistance G. Car transfer 88-Not attempted due to medical condition or safety concerns I. Walk 10 feet 88-Not attempted due to medical condition or safety concerns J. Walk 50 feet with two turns 88-Not attempted due to medical condition or safety concerns K. Walk 150 feet 88-Not attempted due to medical condition or safety concerns L. Walking 10 feet on uneven surfaces 88-Not attempted due to medical condition or safety concerns M. 1 step (curb) 88-Not attempted due to medical condition or safety concerns N. 4 steps 88-Not attempted due to medical condition or safety concerns O. 12 steps 88-Not attempted due to medical condition or safety concerns P. Picking up object 88-Not attempted due to medical condition or safety concerns R. Wheel 50 feet with two turns S. Wheel 150 feet - Bladder and Bowel Bladder continence 1-Stress incontinence only Bowel continence 0-Always continent - Endurance Poor - Balance Fair - Safety Awareness Good CURRENT FUNC. DEFICITS: Self-Care, Mobility, Endurance, and Balance CURRENT / PREVIOUS ASSISTIVE DEVICES: Rolling Walker Standard Walker CURRENT USE ASSISTIVE DEVICES: CPAP HISTORY OF FALLS. HAS THE PATIENT HAD TWO OR MORE FALLS IN THE PAST YEAR OR ANY FALL WITH INJURY IN T HE PAST YEAR?: Unknown PRIOR SURGERY. DID THE PATIENT HAVE MAJOR SURGERY DURING THE 100 DAYS PRIOR TO ADMISSION?: Yes THERAPY NOTES FROM ACUTE CARE: Attached. SPECIAL NEEDS: - Safety Concerns Skin breakdown precautions needed due to skin breakdown risk PRECAUTIONS: - Weight Bearing Precaution WBAT left LE PATIENT NEEDS ACTIVE AND ONGOING THERAPEUTIC INTERVENTION OF MULTIPLE THERAPY DISCIPLINES, INCLUDING: - Dietary and Nutrition Adequate Nutrition. Nutritional Education. Nutritional Supplements. PATIENT NEEDS CLOSE MEDICAL SUPERVISION BY A REHABILITATION PHYSICIAN FOR: Coordination of Treatment Team Medical and Co-Morbidity Management Post-Op Complications Wound Care PATIENT REQUIRES 24X7 REHAB NURSING FOR MEDICAL AND FUNCTIONAL MGT. OF THE FOLLOWING DEFICITS: Disease Management Medication Management Patient/Family Education Providing Safe Environment Skin Integrity PATIENT REQUIRES INTENSIVE, COORDINATED INTERDISCIPLINARY APPROACH TO REHAB: Arranging Home Equipment/Services Discharge Planning Family Intervention/Training Dye Colorist Dyer/Case Management PATIENT REHAB POTENTIAL: Tomer CORDOBA is able and expected to receive 3 hours of individualized therapy daily on at least 5 of alexandra ry 7 days Tomer CORDOBA's prognosis for significant practical improvement within a reasonable period of time appears Good Expected level of measurable improvement will be of a practical value to Tomer CORDOBA's functional capaci ty or adaptations to impairments Has a viable Discharge Plan Medically appropriate; condition is sufficiently stable to participate in intensive rehab program DISCHARGE PLAN: - Estimated Length of Stay (days) 7. - Consensus on plan Discharge plan has been discussed with primary caregiver. Patient/Family is in agreement with the chelle n. Primary caregiver is in agreement with the plan. - Patient/Family Goals Return home with assistance. - Planned Living Setting Upon Discharge MOTHER'S HOME, to live with Family/Relatives. Transitional Living. Primary caregiver: SISTER. RECOMMENDED CARE LEVEL: IRF RECOMMENDATION DETAILS: Recommended Admission to Comprehensive Rehabilitation Program to Increase Functional [place] SCREENER'S COMPLETENESS CONFIRMATION: - Screening Confirmation The patient data collection on this preadmission screening form is finished PHYSICIANS REVIEW AND ADMISSION DETERMINATION Admit - Based on my review of the Pre-Admission Screening results, in my medical judgment and experie nce, I concur with the findings and recommend admission to [facility], as this patient requires an IRF level of care. SIGNATURE PANEL: Clinical Liaison - [electronically] signed by Gloria Mace RN on 11/28/2019 at 12:38 (CDT) Physician Reviewer - [electronically] signed by Dr. Moi Barry M.D. on 11/28/2019 at 14:26 (CDT )
--- OUTSIDE RECORDS SUMMARY | 2019-11-28 18:48 | XMS REPORT | Summary of Care ---
:1950 Author Organization [facility] Address [address] [place], [place] [id number] Care Team Providers Name Role Phone Melissa Valadez Primary Care Provider Reason for Referral Radiology Services (STAT) Status Reason Specialty Diagnoses / Referred By Referred To Procedures Contact Contact New Request Diagnostic Diagnoses Pain of left lower extremity Enoch Daniel, Radiology Procedures XR FEMUR 2 VW LEFT [address] [place] [address] [place] [address] Radiology Services (STAT) Status Reason Specialty Diagnoses / Referred By Referred To Procedures Contact Contact New Request Diagnostic Diagnoses Pain of left lower extremity Enoch Daniel, Radiology Procedures XR PELVIS 3+ VW [address] [place] [address] [place], [place] [id number] Reason for Visit Reason Comments Auth/Cert Status Reason Specialty Diagnoses / Referred By Referred To Procedures Contact Contact Emergency Medicine Diagnoses [facility] Emergency Dept [address] [facility] [address] Fax: Encounter Details Date Type Department Care Team Description 11/22/2019 Emergency ADC-Emergency Enoch Daniel MD Pain of left lower extremity (Primary Dx ); Department 301 [facility] Closed fracture of distal end of left fe mur, unspecified fracture morphology, initial encounter 132 [facility] [address] [place] [address] [phone] Allergies Active Allergy Reactions Severity Noted Date Comments Alprazolam Hallucinations High 02/16/2012 Zinc Rash High 08/20/2014 documented as of this encounter (statuses as of 11/22/2019) Medications Medication Sig Dispensed Refills Start Date End Date Status atorvastatin (LIPITOR) TK 1 T PO QD 1 05/29/2016 Active 10 mg tablet pantoprazole 40 mg EC TK 1 T PO QD 6 07/25/2016 Active tablet gabapentin 300 mg Take one cap 90 capsule 0 06/21/2017 Active capsule today, BID tomorrow, and then traZODONE 100 mg TK 1 T PO ONCE A 0 07/24/2017 Active tablet DAY meloxicam 15 mg tablet Take 1 tablet by 30 tablet 0 11/08/2017 Active mouth daily. fluticasone/umeclidin/ Inhale as needed. 0 Active vilanter (TRELEGY ELLIPTA INHALE) predniSONE 20 mg 1 PO BID x 4 days 8 tablet 0 06/15/2018 Active tablet doxycycline 100 mg Take 1 capsule by 30 capsule 11 04/11/2019 Active capsuleIndications: mouth daily. Infection of prosthetic knee joint, subsequent encounter traMADol 50 mg Take 1 tablet by 90 tablet 1 04/11/2019 Active tabletIndications: mouth every 8 Infection of (eight) hours as prosthetic knee joint, needed for Pain subsequent encounter (scale 7-10). 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 Total knee replacement status 05/19/2011 Major depressive disorder, single episode, mild 2005 documented as of this encounter (statuses as of 11/22/2019) Immunizations Name Administration Dates Next Due Influenza High Dose 05/29/2016 Influenza Virus Vaccine 04/20/2017 documented as of this encounter Social History Tobacco Use Types Packs/Day Years Used Date Never Smoker Smokeless Tobacco: Never Used Comments: sidestream exposure Alcohol Use Drinks/Week oz/Week Comments No Sex Assigned at Date Recorded Not on file Job Start Date Occupation Industry Not on file Not on file Not on file Travel History Travel Start Travel End No recent travel history available. COVID-19 Exposure Response Date Recorded In the last month, have you been in contact with No / Unsure 11/22/2019 10:14 AM CDT someone who was confirmed or suspected to have Coronavirus / COVID-19? documented as of this encounter Last Filed Vital Signs Vital Sign Reading Time Taken Comments Blood Pressure 125/81 11/22/2019 12:00 PM CDT Pulse 75 11/22/2019 12:00 PM CDT Temperature 36.7 C (98.1 F) 11/22/2019 12:00 PM CDT Respiratory Rate 18 11/22/2019 12:00 PM CDT Oxygen Saturation 97% 11/22/2019 12:00 PM CDT Inhaled Oxygen Concentration - - Weight 106.1 kg (234 lb) 11/22/2019 9:20 AM CDT Height 160 cm (5' 3") 11/22/2019 9:24 AM CDT Body Mass Index 41.45 11/22/2019 9:20 AM CDT documented in this encounter Plan of Treatment Health Maintenance Due Date Last Done Comments HEPATITIS C (HCV) SCREEN 1950 DTaP,Tdap,and Td Vaccines (1 - Tdap) 1962 Breast Cancer Screening (MAMMOGRAM) 1991 COLONOSCOPY 2001 Zoster Recombinant Vaccine (SHINGRIX) (1 2001 of 2) Medicare Wellness Visit 2016 Osteoporosis Screening 2016 PNEUMOCOCCAL VACCINES 65+ (1 of 2 - PCV13) 2016 INFLUENZA VACCINE (Season Ended) 2020 04/20/2017, documented as of this encounter Implants Implanted Type Area Acls Nurse Device Shelf Model / Identifier Expiration Serial / Lot Date Bone, [facility] Osteoset Resorbable Bead Kit Fast Cure 25cc Grafts #[id number] - [id number] BONE [facility] [id number] / Implanted: Qty: 2 on 09/26/2012 at [facility] [employer] / [place] Maxxeus 5cc Cts #2017-40 - [id number] BONE Right: Community Tissue 10/10/2013 / Implanted: Qty: 1 on 04/16/2014 by Butch Maldonado MD at [facility] Leg Services / [id number] Dbranjan Major [facility] Cts #2017-40 - [id number] BONE Community Tissue 10/11/2015 / Implanted: Qty: 1 on 04/16/2014 by Guicho Hammonds MD at [facility] Services / [id number] Femur Shaft, [facility] Tissue Services > 11.0 Cm Frozen > 11.0 Cm #1135-14 - [id number] BONE Right: [facility] Tissue 07/10/2018 1135-14 / Implanted: Qty: 1 on 09/24/2014 by Butch Maldonado MD at [facility] Leg Services [id number] / [id number] Description:[facility] Tissue Services ID: [id number] Femur Shaft > 11.0 cm 14.0 cm exp: 07/10/2018 PrCode: 1135-14 CTS: Lot: [id number] 3.5mm Hex Button Button Right: Hip Baron 12/10/2015 2 23235 / Implanted: Qty: 1 on 04/16/2014 by Aly Garcia MD at [facility] / [id number] 3.5mm Hex Button Button Right: Hip Baron 08/25/2017 2 23235 / Implanted: Qty: 1 on 04/16/2014 at [facility] / [id number] 3.5mm Hex Button Button Right: Hip Baron 12/14/2017 2 23235 / Implanted: Qty: 1 on 04/16/2014 by Aly Garcia MD at [facility] / [id number] 3.5mm Hex Button Button Right: Hip Baron 09/08/2016 2 23235 / Implanted: Qty: 1 on 04/16/2014 by Aly Garcia MD at [facility] / [id number] 3.5mm Hex Button Button Right: Hip Baron 03/08/2018 2 232-35 / Implanted: Qty: 1 on 04/16/2014 by Aly Garcia MD at [facility] / [id number] Cable Ready Cable Environmental Lead System CABLE Right: Hip Baron 12/10/2023 2231-09-08 / Implanted: Qty: 1 on 04/16/2014 by Aly Garcia MD at [facility] / [id number] Cable Ready Cable Environmental Lead System CABLE Right: Hip Baron 12/10/2023 2231-09-08 / Implanted: Qty: 1 on 04/16/2014 by Aly Garcia MD at [facility] / [id number] Cement, Liberty Bone #6191-1-001 - [id number] CEMENT Right: Knee S tryker 01/09/2015 6191-1-001 / Implanted: Qty: 2 on 09/26/2012 by Savanah Lomax MD at [facility] / [id number] Cement, [employer]hew Versabond #[id number] - [id number] CEMENT Right: Knee Mace & Nephew 03/12/2014 [id number] / Implanted: Qty: 3 on 12/14/2012 by Savanah Lomax MD at [facility] / [id number] Bone Cement, Depuy Smartset Ghv Gentamicin 40g #[id number] - [id number] CEMENT Right: Leg Depuy Synthes 11/25/2015 [id number] / Implanted: Qty: 1 on 09/24/2014 by Butch Maldonado MD at [facility] / [id number] Bone Cement, Depuy Smartset Ghv Gentamicin 40g #[id number] - [id number] CEMENT Right: Leg Depuy Synthes 11/25/2015 [id number] / Implanted: Qty: 1 on 09/24/2014 by Butch Maldonado MD at [facility] / [id number] Lps Distal Femoral Component Xx Small Right Femoral Right: Knee 08/12/2017 [id number] / Implanted: Qty: 1 on 12/14/2012 by Savanah Lomax MD at [facility] Component / [id number] Segmental Component Femoral Sleeve Right: Leg Depuy Synthes 02/25/2024 [id number] / Implanted: Qty: 1 on 09/24/2014 by Butch Maldonado MD at [facility] / [id number] Description:REF: [id number] LOT: [id number] Segmental Component 45 mm EXPIRATION: 2024-02 Femoral Stem Bowed Femoral Stem Right: Leg Depuy Synthes [id number] / Implanted: Qty: 1 on 09/24/2014 by Butch Maldonado MD at [facility] / [id number] Description:REF: [id number] LOT: [id number] EXPIRATION: 2023-06 11mm x 200mm cemented Femoral Stem Bowed Ncb Periprosthetic Proximal Femur Plate, Right, 9 Holes, L. 245 Mm Femur Right: Leg Baron 12/25/2020 [id number] / Implanted: Qty: 1 on 09/24/2014 by Butch Maldonado MD at [facility] / [id number] Description:LOT: [id number] NORRIS: [id number] REF: [phone] NCB Periprosthetic Proximal Femur plate, right, 9 holes, L. 245mm Expiration: 2020-12 Lps Tibial Insert Hinge Milroy Xx Small 16mm Hinge Right: Knee 07/12/2014 [id number] / Implanted: Qty: 1 on 12/14/2012 by Savanah Lomax MD at [facility] / [id number] Tka Tibial Tray, Depuy Mbt Rev Tib Tray Sz 3 15mm #[id number] - [id number] KNEE Right: Knee Depuy Synthes 06/11/2022 [id number] / Implanted: Qty: 1 on 12/14/2012 by Savanah Lomax MD at [facility] / [id number] Plate, Synthes 4.5mm Broad Lcp 12h/224mm #226.621 - [id number] PL ATE Right: Leg Synthes 226.621 / Implanted: Qty: 1 on 04/16/2014 by Guicho Hammonds MD at [facility] / Screw, Synthes 4.5mm Cortex Slf-T 14mm #214.814 - [id number] SCRE W Right: Leg Synthes 214.814 / Implanted: Qty: 1 on 04/16/2014 by Guicho Hammonds MD at [facility] / Screw, Synthes 4.5mm Cortex Slf-T 26mm #214.826 - [id number] SCRE W Right: Leg Synthes 214.826 / Implanted: Qty: 1 on 04/16/2014 by Guicho Hammonds MD at [facility] / Screw, Synthes 4.5mm Cortex Slf-T 28mm #214.828 - [id number] SCRE W Right: Leg Synthes 214.828 / Implanted: Qty: 1 on 04/16/2014 by Guicho Hammonds MD at [facility] / Screw, Synthes 4.5mm Cortex Slf-T 30mm #214.830 - [id number] SCRE W Right: Leg Synthes 214.830 / Implanted: Qty: 1 on 04/16/2014 by Guicho Hammonds MD at [facility] / Screw, Synthes 5.0mm Lckng Slf-T W/T25 Star Rec 26mm #212.20 7 - [id number] SCREW Right: Leg Synthes 212.207 / Implanted: Qty: 2 on 04/16/2014 by Guicho Hammonds MD at [facility] / Screw, Synthes 5.0mm Lckng Slf-T W/T25 Star Rec 28mm #212.20 8 - [id number] SCREW Right: Leg Synthes 212.208 / Implanted: Qty: 1 on 04/16/2014 at [facility] / Screw, Synthes 5.0mm Lckng Slf-T W/T25 Star Rec 30mm #212.20 9 - [id number] SCREW Right: Leg Synthes 212.209 / Implanted: Qty: 1 on 04/16/2014 by Guicho Hammonds MD at [facility] / Screw, Synthes 5.0mm Periprosthetic Lckn g Slf-T Star 8mm #02.221.508 - [id number] SCREW Right: Leg Synthes 221.508 / Implanted: Qty: 1 on 04/16/2014 at [facility] / Screw, Synthes 5.0mm Periprosthetic Lckn g Slf-T Star 10mm #02.221.510 - [id number] SCREW Right: Leg Synthes .510 / Implanted: Qty: 1 on 04/16/2014 by Guicho Hammonds MD at [facility] / Screw, Synthes 5.0mm Periprosthetic Lckn g Slf-T Star 12mm #02.221.512 - [id number] SCREW Right: Leg Synthes 512 / Implanted: Qty: 1 on 04/16/2014 by Guicho Hammonds MD at [facility] / Bicortical Screw SCREW Right: Hip Baron 02 .31710.030 / Implanted: Qty: 1 on 04/16/2014 by Aly Garcia MD at [facility] / Bicortical Screw SCREW Right: Hip Baron 02 .08651.040 / Implanted: Qty: 1 on 04/16/2014 by Aly Garcia MD at [facility] / Bicortical Screw SCREW Right: Hip Baron 02 .66880.032 / Implanted: Qty: 2 on 04/16/2014 by Aly Garcia MD at [facility] / Bicortical Screw SCREW Right: Hip Baron 02 .23757.034 / Implanted: Qty: 1 on 04/16/2014 by Aly Garcia MD at [facility] / Bicortical Screw SCREW Right: Hip Baron 02 .46002.034 / Implanted: Qty: 1 on 04/16/2014 at [facility] / Bicortical Screw SCREW Right: Hip Baron 02 .07005.038 / Implanted: Qty: 1 on 04/16/2014 by Aly Garcia MD at [facility] / Unicortical Screw SCREW Right: Hip Baron 0 2.16562.014 / Implanted: Qty: 1 on 04/16/2014 by Aly Garcia MD at [facility] / Unicortical Screw SCREW Right: Hip Baron 0 2.32655.016 / Implanted: Qty: 1 on 04/16/2014 by Aly Garcia MD at [facility] / 5.0 Cortcal Screw 02.52694.014 SCREW Right: Leg Baron 02.33863.014 / Implanted: Qty: 2 on 09/24/2014 by Butch Maldonado MD at [facility] / 02.01722.0 14 Description:5.0 Cortical SCREWS: 02.0315 0.014 5.0 Cortical Screw 02.09821.030 SCREW Right: Leg Baron 02.13684.030 / Implanted: Qty: 2 on 09/24/2014 by Butch Maldonado MD at [facility] / 02.23344.0 30 Description:5.0 Cortical SCREWS: 02.0315 0.030 5.0 Cortical Screw 02.53135.040 SCREW Right: Leg Baron 02.06547.040 / Implanted: Qty: 1 on 09/24/2014 by Butch Maldonado MD at [facility] / 02.54034.0 40 Description:5.0 Cortical SCREW 02.48976. 040 5.0 Cortical Screw 02.71368.016 SCREW Right: Leg Baron 02.01789.016 / Implanted: Qty: 3 on 09/24/2014 by Butch Maldonado MD at [facility] / 02.96330.0 16 Description:5.0 Cortical Screw 02.86380. 016 5.0 Cortical Screw 02.99264.018 SCREW Right: Leg Baron 02.36372.018 / Implanted: Qty: 1 on 09/24/2014 by Butch Maldonado MD at [facility] / 02.26764.0 18 Description:5.0 Cortical Screw 02.90144. 018 Stem, Depuy Sig Tib Niko Stm 13x60 2.5 #589248 - [id number] em Right: Knee Depuy Synthes 03/12/2022 [id number] / Implanted: Qty: 1 on 12/14/2012 by Savanah Lomax MD at [facility] / [id number] Lsp Stem Straight 12mm X 125mm Cemented Stem Right: Knee 06/11/2022 [id number] / Implanted: Qty: 1 on 12/14/2012 by Savanah Lomax MD at [facility] / [id number] Wire, Baron Jewels 16ga Long, 30cm #1292-61 - [id number] WIRE Right: Kn ludwin 1292-61 / Implanted: Qty: 3 on 09/26/2012 by Savanah Lomax MD at [facility] 002 / 002 Cable Ready Cable Environmental Lead System Right: Hip Baron 10/10/2023 2231-09-08 / Implanted: Qty: 1 on 04/16/2014 by Aly Garcia MD at [facility] / [id number] Locking Cap Right: Hip Baron 02.0315 0.300 / Implanted: Qty: 8 on 04/16/2014 by Aly Garcia MD at [facility] / Curved Shaft Plate Right: Hip Baron 02.34941.010 / Implanted: Qty: 1 on 04/16/2014 by Aly Garcia MD at [facility] / Tibial Insert Milroy X Small 16mm Depuy #- - [id number] Right: Leg Depuy Synthes 10/25/2017 / Implanted: Qty: 1 on 09/24/2014 by Butch Maldonado MD at [facility] / [id number] Femoral Comp Lps Distal Radius X Small Right Depuy #- - [id number] Right: Leg Depuy Synthes 06/26/2019 / Implanted: Qty: 1 on 09/24/2014 by Butch Maldonado MD at [facility] / [id number] documented as of this encounter Procedures Procedure Name Priority Date/Time Associated Comments Diagnosis XR PELVIS 3+ VW STAT 11/22/2019 10:54 Pain of left lower Re sults for this AM CDT extremity procedure are i n the results section. XR FEMUR 2 VW LEFT STAT 11/22/2019 10:54 Pain of left lower Results for this AM CDT extremity procedure are i n the results section. ACTIVATED PARTIAL STAT 11/22/2019 10:09 Pain of left lower Results for this THRMPLAS YOLANDA AM CDT extremity procedure are i n the results section. PROTHROMBIN TIME / STAT 11/22/2019 10:09 Pain of left lower Results for this INR AM CDT extremity procedure are i n the results section. CORONAVIRUS COVID-19 STAT 11/22/2019 9:48 Pain of left low er Results for this TESTING AM CDT extremity procedure are i n the results section. CBC WITH DIFFERENTIAL STAT 11/22/2019 9:42 Pain of left lo wer Results for this AM CDT extremity procedure are i n the results section. CBC WITH DIFFERENTIAL Routine 11/22/2019 9:42 Pain of left lo wer Results for this AM CDT extremity procedure are i n the results section. BASIC METABOLIC PANEL STAT 11/22/2019 9:42 Pain of left lo wer Results for this (NA, K, CL, CO2, AM CDT extremity procedure a re in GLUCOSE, BUN, the results CREATININE, CA) section. HEPATIC FUNCTION STAT 11/22/2019 9:42 Pain of left lower R esults for this PANEL (74543) AM CDT extremity procedure are in (ALB,T.PRO,BILI the results T,BU/BC,ALT,AST,ALK section. PHOS) documented in this encounter Results XR FEMUR 2 VW LEFT (11/22/2019 10:54 AM CDT) Specimen Narrative Performed At HISTORY: Pain. S/P fall. PACS/VR/DOSE FINDINGS: Single frontal projection view of left femur showed oblique fracture through the distal shaft of the femur with moderate medial and cephalad displacement of the distal fracture fragment which is overriding the proximal fragment by up to 6 cm. Metallic prosthesis over the distal femo ral condyles is partially visualized. Procedure Note [facility], Radiant Results Inft User - 2019 11:01 AM CDT HISTORY: Pain. S/P fall. FINDINGS: Single frontal projection view of left femur showed oblique fracture through the distal shaft of the femur with moderate medial and cephalad displacement of the distal frac ture fragment which is overriding the proximal fragment by up to 6 cm. Metallic prosthesis over the distal femo ral condyles is partially visualized. Performing Organization Address City/State/Zipcode Phone Number PACS/VR/DOSE XR PELVIS 3+ VW (11/22/2019 10:54 AM CDT) Specimen Narrative Performed At HISTORY: Pain. S/P fall. PACS/VR/DOSE FINDINGS: 3 AP view of the pelvis showed partially visualized metallic hardware over proximal right femur with 2 of the upper most screws supporting metallic plate are probably l ose. Moderate hypertrophic degenerative osteoarthritis of l eft hip joint noted. Mild degenerative arthritis of right hip joint noted. Donor site changes are seen over the iliac bones, more on t he left side. CONCLUSIONS: No acute fracture or disloc ation in AP views of the pelvis. Procedure Note [facility], Radiant Results Inft User - 2019 10:59 AM CDT HISTORY: Pain. S/P fall. FINDINGS: 3 AP view of the pelvis showed partially visualized metallic hardware over proximal right femur with 2 of the upper most screws supporting metallic plate are probably l ose. Moderate hypertrophic degenerative osteo arthritis of left hip joint noted. Mild degenerative arthritis of right hip joint noted. Donor site changes are seen over the iliac bones, more on t he left side. CONCLUSIONS: No acute fracture or disloc ation in AP views of the pelvis. Performing Organization Address City/State/Zipcode Phone Number PACS/VR/DOSE Prothrombin Time (PT) / INR (11/22/2019 10:09 AM CDT) PROTIME PATIENT 12.5 12.0 - 14.7 [facility] LABORATORY INR 1.0Comment: Normal [facility] INR <1.1; Warfarin [facility] Therapeutic range LABORATORY 2.0 to 3.0 or 2.5 to 3.5, depending upon the indications. Specimen Blood - VENOUS Performing Organization Address [facility]/Zipcode Phone Number [facility] CLIA: [id number], [address] [place] [address] aPTT (11/22/2019 10:09 AM CDT) Pathologist Sig nature APTT Patient 24 23 - 38 Seconds [facility] LABORATORY Specimen Blood - VENOUS Narrative Performed At The [facility] patient population mean normal value [facility] LABORATORY for aPTT is 30 seconds. Performing Organization Address [facility] Phone Number [facility] CLIA: [id number], [address] [place] [address] CORONAVIRUS COVID-19 TESTING (11/22/2019 9:48 AM CDT) Pathologist Sig nature SARS-CoV-2 Not Detected Not Detected [facility] LABORATORY Specimen Swab - NASOPHARYNGEAL SWAB Narrative Performed At ID NOW COVID-19 Assay is an isothermal nucleic [facility] LABORATORY acid amplification test intended for the qualitative detection of nucleic acid from SARS-CoV-2 viral RNA in nasopharyngeal (BUILDING PERFORMANCE SPECIALIST) specimens. It is used under Emergency Use Authorization (EUA) by FDA. The limit of detection (LOD) of the assay is 125 Genome Equivalents/mL. A positive result is indicative of the presence of SARS-CoV-2 RNA. Clinical correlation with patient history and other diagnostic information is necessary to determine patient infection status. A negative (Not Detected) result does not preclude SARS-CoV-2 infection. Clinical correlation with patient history and other diagnostic information should be used in patient management decisions. Invalid: Please collect a new specimen for repeat patient testing if clinically indicated. Performing Organization Address City/State/Zipcode Phone Number [facility] CLIA: [id number], [address] [address] CBC WITH DIFFERENTIAL (11/22/2019 9:42 AM CDT) Pathologist Sig nature WBC 12.23 (H) 4.30 - 11.10 [facility] 10*3/L [facility] LABORATORY RBC 4.28 3.93 - 5.25 [facility] 10*6/L [facility] LABORATORY HGB 13.4 11.6 - 15.0 [facility] g/dL [facility] LABORATORY HCT 40.0 35.7 - 45.2 % [facility] LABORATORY MCV 93.5 80.6 - 95.5 fL [facility] LABORATORY MCH 31.3 25.9 - 32.8 pg [facility] LABOR[facility] MCHC 33.5 31.6 - 35.1 [facility] g/dL [facility] LABORATORY RDW-SD 49.8 39.0 - 49.9 fL [facility] LABORATORY RDW-CV 14.4 12.0 - 15.5 % [facility] LABORATORY PLT 179 166 - 358 [facility] 10*3/L [facility] LABORATORY MPV 12.4 9.5 - 12.9 fL [facility] LABORATORY NRBC/100 WBC 0.0 0.0 - 10.0 /100 [facility] WBCs [facility] LABORATORY NRBC x10^3 <0.01 10*3/L [facility] LABORATORY GRAN MAT (NEUT) % 70.9 % [facility] LABOR[facility] IMM GRAN % 0.70 % [facility] LABOR[facility] LYMPH % 18.3 % [facility] LAB[facility] MONO % 9.2 % [facility] LABOR[facility] EOS % 0.5 % [facility] LABOR[facility] BASO % 0.4 % [facility] LABORATORY GRAN MAT x10^3(ANC) 8.66 (H) 1.88 - 7.09 [facility] 10*3/uL [facility] LABORATORY IMM GRAN x10^3 0.09 (H) 0.00 - 0.06 [facility] 10*3/uL HOSPITAL LABORATORY LYMPH x10^3 2.24 1.32 - 3.29 [facility] 10*3/uL HOSPITAL LABORATORY MONO x10^3 1.13 (H) 0.33 - 0.92 [facility] 10*3/uL HOSPITAL LABORATORY EOS x10^3 0.06 0.03 - 0.39 [facility] 10*3/uL [facility] LABORATORY BASO x10^3 0.05 0.01 - 0.07 [facility] 10*3/uL [facility] LABORATORY Specimen Blood - VENOUS Performing Organization Address City/[facility]/Zipcode Phone Number [facility] CLIA: [id number], [address] Hepatic Function Panel (ALB, T.PRO, BILI T, BU/BC, ALT, AST, ALK PHOS) (11/22/2019 9:42 AM CDT) Pathologist Sig nature TOTAL BILI 0.5 0.1 - 1.1 mg/dL [facility] LABORATORY BILI UNCON 0.3 0.1 - 1.1 mg/dL [facility] LAB[facility] BILI CONJ 0.0 0.0 - 0.3 mg/dL [facility] LABOR[facility] T PROTEIN 6.9 6.3 - 8.2 g/dL [facility] LAB[facility] ALBUMIN 3.8 3.5 - 5.0 g/dL [facility] LAB[facility] ALK PHOS 82 34 - 122 U/L [facility] LAB[facility] ALTv 22 5 - 35 U/L [facility] LAB[facility] AST(SGOT) 38 13 - 40 U/L [facility] LABORATORY Specimen Blood - VENOUS Performing Organization Address City/[facility] [facility]/Zipcode Phone Number [facility] CLIA: [id number], [address] Basic Metabolic Panel (NA, K, CL, CO2, GLUCOSE, BUN, CREATININE, CA) (11/22/2019 9:42 AM CDT) Pathologist Sig nature NA 138 135 - 145 [facility] mmol/L [facility] K 4.4 3.5 - 5.0 [facility] mmol/L [facility] CL 109 (H) 98 - 108 mmol/L [facility] CO2 TOTAL 20 (L) 23 - 31 mmol/L [facility] AGAP 9 2 - 16 [facility] BUN 14 7 - 23 mg/dL [facility] [place] GLUCOSE 105 70 - 110 mg/dL [facility] CREATININE 0.65 0.50 - 1.04 [facility] mg/dL [facility] CALCIUM 8.9 8.6 - 10.6 [facility] mg/dL [facility] eGFR Calculation 90.6 mL/min/1.73m2 [facility] (Non-[facility] LABORATORY Maltese) eGFR Calculation 109.9 mL/min/1.73m2 [facility] () [facility] Specimen Blood - VENOUS Narrative Performed At Association of Glomerular Filtration Rate (GFR) [facility] and Staging of Kidney Disease* + + +- + | GFR (mL/min/1.73 m2) | With Kidney Damage | Without Kidney Damage + + +- + | >90 | Stage one | Normal + + +- + | 60-89 | Stage two | Decreased GFR + + +- + | 30-59 | Stage three | Stage three + + +- + | 15-29 | Stage four | Stage four + + +- + | <15 (or dialysis) | Stage five | Stage five + + +- + *Each stage assumes the associated GFR level has been in effect for at least three months. Stages 1 to 5, with or without kidney disease, indicate chronic kidney disease. Notes: Determination of stages one and two (with eGFR >59mL/min/1.73 m2) requires estimation of kidney damage for at least three months as defined by structural or functional abnormalities of the kidney, manifested by either: Pathological abnormalities or Markers of kidney damage (including abnormalities in the composition of the blood or urine or abnormalities in imaging tests). Performing Organization Address City/State/Zipcode Phone Number [facility] CLIA: [id number], [address] documented in this encounter Visit Diagnoses Diagnosis Pain of left lower extremity - Primary Closed fracture of distal end of left fe mur, unspecified fracture morphology, initial encounter documented in this encounter Administered Medications Medication Order MAR Action Action Date Dose Rate Site FENTanyl PF (SUBLIMAZE (PF)) Given 11/22/2019 9:58 AM CDT 100 m cg injection 100 mcg 100 mcg, Slow IV Push, ONCE, 1 dose, 11/22/19 at 1100, STAT FENTanyl PF (SUBLIMAZE (PF)) injection 150 Given 11/21 11:00 AM CDT 150 mcg mcg 150 mcg, Slow IV Push, ONCE, 1 dose, Wed11/22/19 at 1200, STAT HYDROmorphone (DILAUDID) injection 0.5 m g Given 11/22/2019 11:47 AM CDT 0.5 mg 0.5 mg, Slow IV Push, ONCE, 1 dose, Wed11/22/19 at 1245, [place], Use approved by (Faculty): ADC PROVIDER documented in this encounter Insurance Payer Benefit Plan / Subscriber ID Effective Dates Phone Addre ss Type Group MEDICARE MEDICARE PART xxxxxxxxxxx 2016-[place] 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
--- OUTSIDE RECORDS SUMMARY | 2019-11-28 18:48 | XMS REPORT ---
:1950 Author Organization [facility] t Address [address] [place] [address] Care Team Providers Name Role Phone Sandrita MARTINEZ, A Attending Clinician Fredy MARTINEZ Attending Clinician Sandrita MARTINEZ, A Admitting Clinician Problems This patient has no known problems. Allergies, Adverse Reactions, Alerts This patient has no known allergies or adverse reactions. Medications This patient has no known medications. Procedures This patient has no known procedures. Encounters Start End Encounter Admission Attending Care Care Encounter Source Date/Time Date/Time Type Type Clinicians Facility Department ID 2019-11-22 2019-11-28 [facility] Lanie Remy [id number] 14:08:03 17:30:00 Encounter J Carlos Burns Yady [id number] [facility] [id number] 2019-11-22 2019-11-22 Emergency Fredy [facility] [id number] 09:15:45 13:02:00 Enoch Reyes [id number] [place] [id number] [place] [id number] Results This patient has no known results.
--- OUTSIDE RECORDS SUMMARY | 2019-11-28 18:49 | XMS REPORT | Summary of Care ---
:1950 Author Organization [facility] Address [address] [place] [address] Care Team Providers Name Role Phone Allyson, Melissa Primary Care Provider Reason for Referral Other (Routine) Status Reason Specialty Diagnoses / Referred By Referred To Procedures Contact Contact New Request Diagnoses Closed displaced oblique fracture of shaft of left femur, initial encounter Shikha Remy, Shikha Remy, Procedures Discharge Follow-up: Specialty Provider SHIKHA REMY; 2 Weeks MD MARTINEZ [address] [place] [address] Phone: Fax: Radiology Services (STAT) Status Reason Specialty Diagnoses / Referred By Referred To Procedures Contact Contact New Request Diagnostic Diagnoses Closed displaced oblique fracture of shaft of left femur, initial encounter Shikha Remy Radiology Procedures XR FEMUR 2 VW MARTA Burns MD [address] [place] [address] Radiology Services (Routine) Status Reason Specialty Diagnoses / Referred By Referred To Procedures Contact Contact New Request Diagnostic Diagnoses Encounter for central line placement Fang, Radiology Procedures XR CHEST 1 TRISH Hong MD [address] [place] [address] Radiology Services (STAT) Status Reason Specialty Diagnoses / Referred By Referred To Procedures Contact Contact New Request Diagnostic Diagnoses Closed displaced oblique fracture of shaft of left femur, initial encounter RemyShikha colorado Radiology Procedures XR KNEE <3 VW LEFT MD Katy [address] [place] [address] (STAT) Status Reason Specialty Diagnoses / Referred By Referred To Procedures Contact Contact New Request Diagnostic Diagnoses Closed displaced oblique fracture of shaft of left femur, initial encounter Remy, Shikha Radiology Procedures FL TIME OR (NON-REPORTABLE) MD Katy [address] [place] [address] MRI/CAT Scan (STAT) Status Reason Specialty Diagnoses / Referred By Referred To Procedures Contact Contact New Request Diagnostic Diagnoses Closed displaced oblique fracture of shaft of left femur, initial encounter Remy, Shikha Radiology Procedures CT FEMUR LEFT WO CONTRAST MD Katy [address] [place] [address] Radiology Services (STAT) Status Reason Specialty Diagnoses / Referred By Referred To Procedures Contact Contact New Request Diagnostic Diagnoses Closed displaced oblique fracture of shaft of left femur, initial encounter RemyShikha colorado Radiology Procedures XR CHEST 1 VW MD Katy [address] [place] [address] Radiology Services (STAT) Status Reason Specialty Diagnoses / Referred By Referred To Procedures Contact Contact New Request Diagnostic Diagnoses Closed displaced oblique fracture of shaft of left femur, initial encounter RemyShikha colorado Radiology Procedures XR HIPS 2 VW LEFT MD Katy [address] [place] [address] Radiology Services (STAT) Status Reason Specialty Diagnoses / Referred By Referred To Procedures Contact Contact New Request Diagnostic Diagnoses Closed displaced oblique fracture of shaft of left femur, initial encounter Shikha Remy Radiology Procedures XR FEMUR 2 VW LEFT MD Katy [address] [place] [address] Radiology Services (STAT) Status Reason Specialty Diagnoses / Referred By Referred To Procedures Contact Contact New Request Diagnostic Diagnoses Closed displaced oblique fracture of shaft of left femur, initial encounter RemyShikha colorado Radiology Procedures XR KNEE <3 VW MARTA Burns MD [address] [place] [address] Reason for Visit Reason Comments Referral/consult Auth/Cert Status Reason Specialty Diagnoses / Referred By Referred To Procedures Contact Contact Emergency Medicine [facility] [address] [place] [phone] Fax: Encounter Details Date Type Department Care Team Description 11/22/2019 - Hospital Encounter Neurology/Neurologi Remy, Shikha Burns , Closed displaced 11/28/2019 nancy Surgery (JONAS MARTINEZ oblique fracture of 11B) [address] [facility] shaft of left [facility] femur, initial [place], [place] [id number] [place] [address] encounter [phone] Allergies Active Allergy Reactions Severity Noted Date Comments Alprazolam Hallucinations High 02/16/2012 Zinc Rash High 08/20/2014 documented as of this encounter (statuses as of 11/28/2019) Medications Medication Sig Dispensed Refills Start Date End Date Status atorvastatin TK 1 T PO QD 1 05/29/2016 Act sarabjit (LIPITOR) 10 mg tablet pantoprazole 40 mg EC TK 1 T PO QD 6 07/25/2016 Active tablet gabapentin 300 mg Take one cap 90 capsule 0 06/21/2017 Active capsule today, BID tomorrow, and then traZODONE 100 mg TK 1 T PO ONCE A 0 07/24/2017 Active tablet DAY meloxicam 15 mg Take 1 tablet by 30 tablet 0 11/08/2017 Active tablet mouth daily. fluticasone/umeclidin Inhale as 0 Active /vilanter (TRELEGY needed. ELLIPTA INHALE) predniSONE 20 mg 1 PO BID x 4 8 tablet 0 06/15/2018 Active tablet days doxycycline 100 mg Take 1 capsule 30 capsule 11 04/11/2019 Active capsuleIndications: by mouth daily. Infection of prosthetic knee joint, subsequent encounter traMADol 50 mg Take 1 tablet by 90 tablet 1 04/11/2019 Active tabletIndications: mouth every 8 Infection of (eight) hours as prosthetic knee needed for Pain joint, subsequent (scale 7-10). encounter HYDROcodone-acetamino Take 1 tablet by 40 tablet 0 11/28/2019 Active phen 5-325 mg mouth every 6 tabletIndications: (six) hours as Closed displaced needed for Pain oblique fracture of (scale 4-6). shaft of left femur, initial encounter ergocalciferol, Take 50,000 5 capsule 0 12/02/2019 A ctive vitamin d2, 2,500 Units by mouth unit CapIndications: weekly. Closed displaced oblique fracture of shaft of left femur, initial encounter enoxaparin 30 mg/0.3 inject 0.3 mL 13.8 mL 0 11/28/201912/10 Active mL under the skin injectionIndications: every 12 Closed displaced (twelve) hours oblique fracture of for 23 days. shaft of left femur, initial encounter documented as of this encounter (statuses as of 11/28/2019) Active Problems Problem Noted Date Vitamin D deficiency 11/24/2019 Age-related osteoporosis with current pathological fra cture with routine 11/23/2019 healing COPD mixed type 11/23/2019 SHAMIR on CPAP 11/23/2019 Current chronic use of systemic steroids 11/23/2019 Mixed hyperlipidemia 11/23/2019 Gastroesophageal reflux disease without esophagitis Fracture, femur 11/22/2019 Closed displaced oblique fracture of shaft of left fem ur, initial 11/22/2019 encounter Overview: Added automatically from request for rm josy [id number] Arthritis of left hip 09/17/2017 Overview: Added automatically from request for rm josy [id number] Osteoarthritis of left hip, unspecified osteoarthritis type 10/14/2015 Left-sided low back pain with left-sided sciatica 10/2015 Trochanteric bursitis of left hip 10/14/2015 S/P revision of total knee 09/24/2014 Femur fracture, right 04/13/2014 Infected prosthetic knee joint 09/26/2012 Total knee replacement status 05/19/2011 Major depressive disorder, single episode, mild 2005 documented as of this encounter (statuses as of 11/28/2019) Immunizations Name Administration Dates Next Due Influenza High Dose 05/29/2016 Influenza Virus Vaccine 04/20/2017 documented as of this encounter Social History Tobacco Use Types Packs/Day Years Used Date Never Smoker Smokeless Tobacco: Never Used Comments: sidestream exposure Alcohol Use Drinks/Week oz/Week Comments Not Currently Sex Assigned at Date Recorded Not on file Job Start Date Occupation Industry Not on file Not on file Not on file Travel History Travel Start Travel End No recent travel history available. COVID-19 Exposure Response Date Recorded In the last month, have you been in contact with No / Unsure 11/22/2019 2:03 PM CDT someone who was confirmed or suspected to have Coronavirus / COVID-19? documented as of this encounter Last Filed Vital Signs Vital Sign Reading Time Taken Comments Blood Pressure 119/56 11/28/2019 3:22 PM CDT Pulse 72 11/28/2019 3:22 PM CDT Temperature 37.1 C (98.7 F) 11/28/2019 3:22 PM CDT Respiratory Rate 20 11/28/2019 3:22 PM CDT Oxygen Saturation 95% 11/28/2019 3:22 PM CDT Inhaled Oxygen Concentration - - Weight 117.9 kg (260 lb) 11/22/2019 8:30 PM CDT Height 160 cm (5' 3") 11/22/2019 8:30 PM CDT Body Mass Index 46.06 11/22/2019 8:30 PM CDT documented in this encounter Discharge Summaries Shikha Remy MD - 11/28/2019 3:08 PM CDT Date of Service: 11/28/2019 Admit Date/Time: 11/22/2019 2:08 PM Discharge Date: 11/28/2019 Service: Orthopaedic Surgery Attending MD: Dr. Remy Resident MD: Rosetta Beauchamp MD PCP: Rosenda Valadez Reason for Admission: left closed distal femoral shaft fracture (recurrent), above prior left total knee arthroplasty Operations/Procedures:left femoral shaft fracture open reduction and intramedullary nailing, and open reduction internal fixation, with deep hardware removal Complications: None FINAL DIAGNOSIS: (the reason, after study, for admitting the patient to the hospital): same SECONDARY DIAGNOSIS: (any diagnosis that, on this admission, required clinical evaluation, therapeutic treatment, diagnostic procedures, extended hospital stay, or additional nursing care/monitoring) None Hospital Course: Patient was admitted from the emergency room and was taken to the operating room on11/23/2019 for the above procedures. Postoperatively, she was transferred to the floor. The patient was evaluated by Physical Therapy and Occupational Therapy and was deemed appropriate for inpatient rehab. During Layne's hospitalization , she was seen by the Medicine and Cardiology service for assistance with management. At the time of discharge, she was afebrile and her pain was well controlled. No postoperative complications were noted. Prophylactic anticoagulation was provided in the form of Lovenox to be taken for 4 weeks after discharge. Patient suitable for discharge. Laboratory: Labs: CBC BMP PT/INR WBC x10^3 (/uL) Date Value 09/27/2014 11.5 (H) WBC (10*3/L) Date Value 11/24/2019 12.88 (H) NA Date Value 11/24/2019 133 mmol/L (L) 07/23/2014 139 MMOL/L No results found for: PT RBC x10^6 (/uL) Date Value 09/27/2014 2.74 (L) RBC (10*6/L) Date Value 11/24/2019 3.58 (L) K Date Value 11/24/2019 4.4 mmol/L 07/23/2014 4.7 MMOL/L PT INR (no units) Date Value 04/14/2014 1.0 INR (no units) Date Value 11/22/2019 1.0 PLT x10^3 (/uL) Date Value 09/27/2014 127 (L) PLT (10*3/L) Date Value 11/24/2019 211 CALCIUM Date Value 11/24/2019 7.9 mg/dL (L) 07/23/2014 9.8 MG/DL 07/23/2014 9.8 MG/DL THB ART (G/DL) Date Value 09/24/2014 9.6 (L) HGB Date Value 11/24/2019 11.4 g/dL (L) 09/27/2014 8.0 G/DL (L) CL Date Value 11/24/2019 104 mmol/L 07/23/2014 105 MMOL/L aPTT HCT (%) Date Value 11/24/2019 34.0 (L) 09/27/2014 24.1 (L) BUN Date Value 11/24/2019 15 mg/dL 07/23/2014 15 MG/DL APTT (SEC) Date Value 12/17/2012 29 APTT Patient (Seconds) Date Value 11/22/2019 24 CREATININE Date Value 11/24/2019 0.63 mg/dL 07/23/2014 0.80 MG/DL Radiology: Xr Chest 1 Vw Result Date: 11/22/2019 Cardiomegaly with mild interstitial pulmonary edema. Preliminary Report Dictated by Resident: Viridiana Ram MD., have reviewed this study and agree with the above report. Ct Femur Left Wo Contrast Result Date: 11/22/2019 Distracted oblique subacute distal femoral diaphyseal fracture with mild swelling. Total knee arthroplasty with patellar implant loosening. Severe left hip osteoarthrosis. No lytic or sclerotic lesion.Preliminary Report Dictated by Resident: Raghavendra Ram MD., have reviewedthis study and agree with the above report. Xr Femur 2 Vw Left Result Date: 11/23/2019 Status post distal femoral fracture fixation. Xr Femur 2 Vw Left Result Date: 11/22/2019 Distracted distal femoral diaphyseal subacute fracture. Severe left hip osteoarthrosis. Stable totalknee arthroplasty. Hardware loosening at the level of the right proximal femur. Preliminary Report Dictated by Resident: Raghavendra Ram MD., have reviewed this study and agreewith the above report. Xr Hips 2 Vw Left Result Date: 11/22/2019 Distracted distal femoral diaphyseal subacute fracture. Severe left hip osteoarthrosis. Stable totalknee arthroplasty. Hardware loosening at the level of the right proximal femur. Preliminary Report Dictated by Resident: Raghavendra Ram MD., have reviewed this study and agreewith the above report. Xr Knee <3 Vw Left Result Date: 11/22/2019 Distracted distal femoral diaphyseal subacute fracture. Stable total knee arthroplasty. Preliminary Report Dictated by Resident: Raghavendra Varela MD., have reviewed this study and agree with the above report. Xr Knee <3 Vw Left Result Date: 11/22/2019 Distracted distal femoral diaphyseal subacute fracture. Severe left hip osteoarthrosis. Stable totalknee arthroplasty. Hardware loosening at the level of the right proximal femur. Preliminary Report Dictated by Resident: Raghavendra Ram MD., have reviewed this study and agreewith the above report. Discharge Disposition: rehab hospital Discharge Condition: Good Activity: FWB/WBAT: left lower extremity Discharge Medications: Medication List START taking these medications enoxaparin 30 mg/0.3 mL injection Commonly known as: LOVENOX inject 0.3 mL under the skin every 12 (twelve) hours for 23 days. ergocalciferol (vitamin D2) 2,500 unit Cap Commonly known as: ERGOCAL Take 50,000 Units by mouth weekly. Start taking on: December 02, 2019 HYDROcodone-acetaminophen 5-325 mg tablet Commonly known as: NORCO 5 Take 1 tablet by mouth every 6 (six) hours as needed for Pain (scale 4-6). CONTINUE taking these medications atorvastatin 10 mg tablet Commonly known as: LIPITOR doxycycline hyclate 100 mg capsule Commonly known as: Vibramycin Take 1 capsule by mouth daily. gabapentin 300 mg capsule Commonly known as: NEURONTIN Take one cap today, BID tomorrow, and then meloxicam 15 mg tablet Commonly known as: MOBIC Take 1 tablet by mouth daily. pantoprazole 40 mg EC tablet Commonly known as: PROTONIX predniSONE 20 mg tablet Commonly known as: DELTASONE 1 PO BID x 4 days traMADol 50 mg tablet Commonly known as: ULTRAM Take 1 tablet by mouth every 8 (eight) hours as needed for Pain (scale 7-10). traZODone 100 mg tablet Commonly known as: DESYREL TRELEGY ELLIPTA INHALE Where to Get Your Medications Information about where to get these medications is not yet available Ask your nurse or doctor about these medications enoxaparin 30 mg/0.3 mL injection ergocalciferol (vitamin D2) 2,500 unit Cap HYDROcodone-acetaminophen 5-325 mg tablet Discharge Instructions: Please perform twice daily (BID) dry dressing changes, as needed, to left leg/hip incisions with clean 4x4s and nonocclusive tape (i.e., paper tape). No strenuous activity. Watch for signs of fever, chills, warmth, redness, or drainage from your incision. A slight amount is normal for a day or two following surgery. Seek medical attention for: loss of neurologic function,fever >101.5 F, increasing warmth, redness, swelling, drainage at incision site, or anything thatmay concern you. Follow up: Follow up in [address] Remy. Agree with note above and plan of care documented in this encounter Discharge Instructions AttachmentsThe following attachments cannot be sent through Care Everywhere. Acetaminophen; Hydrocodone tablets or capsules (Bulgarian)Enoxaparin injection (Bulgarian)Ergocalciferol, Vitamin D2 tablets or capsules (Bulgarian)Subcutaneous (Sub-Q) Injection, (Single Medicine), Giving a (Bulgarian)documented in this encounter Progress Notes Kristi Caruso OT - 11/28/2019 4:06 PM CDTOCCUPATIONAL THERAPY DISCHARGE NOTE: Patient seen for initial evaluation and Patient/Caregivier Education, Equipment recommendations and Daily living activities. Goals not met secondary to discharge to rehabilitation hospital. Please see progress note dated 11/24/2019 for details on functional status at time of discharge. Discharge acute care OT secondary to discharge from hospital. RICKIE Kent/MARIA DEL CARMEN Ac pager number: [phone] Janneth Wilson RN - 11/28/2019 3:53 PM CDT Care Management Discharge Disposition Note (DCDN) 5-2-1 Interventions: Disease specific education;Intensive medication reconciliation/management;Teachback;Clear discharge plan;Follow-up appointments 5-2-1 Providers: Physician;Distribution Spec/Door Operator;Nurse 5-2-1 Patient Capacity Improvements: Avoidance of adverse events/readmission Discharge Plan for ongoing care and services: Rehabilitation Is this a new referral: Yes Patient Choice completed for referred services: Yes Discharge location(s): Rehabilitation location: [facility] [place], [place] () [phone] (F) [phone] Patient choice completed for referred services: Yes Discussed with patient/patients family involved in decision making: Yes Patient or family caregiver understands, and agrees with discharge plan. Community resources/referrals made or provided to patient: No Transportation: Wheelchair Van(Voucher: [id number]) Mental Status: Alert & Oriented to Person,Place & Time Living Arrangement: Home Other living arrangement: Address of living arrangement: [address] [place] [address] [place] [address] Funding Resources: Medicare A & B;Medicaid HMO Nursing informed of discharge plan: Yes Name of RN informed: Viola Expected discharge date: 11/28/2019 Time: Evening [40] Additional Information: ADRIÁN/VANDANA Name & Contact number: Janneth OLIVER, RN Material Worker, Care Management Dept. [email or web address] (O) [phone] (C) [phone] (not for patient use) The following information has been provided to the facility noted above: reason for the patient discharge or transfer; patients physical and psychosocial status; summary of care, treatment, servicesprovided to patient; and the patient progress toward goals. Mark Christie, PT - 11/28/2019 11:30 AM CDTPhysical Therapy Progress Note: Recommendations: Primary discharge plan: rehabilitation hospital Equipment recommendations: defer to facility PAIN: -Pain Description: tingling and stinging -Pain Location: left leg -Pain rating before treatment: 5, After treatment: 5 -Pain Management: Repositioning Provided PRECAUTIONS: Weight Bearing Precaution: WBAT, Left General Precautions: PPE used:Gloves and Surgical mask, General, Fall, Bracing/Cast present or required:N/A S: Patient agreeable to working with PT. She states she wants to be able to walk to the bathroom so she doesn't have to use the bedside commode O: Patient met Up in chair. Patient seen for the following: Bed mobility: Scooting in supine: Independent Supine-sit: Independent Scooting to edge of bed: Modified independent, use of bed rails assessed patient's ability to return to supine from sitting EOB without use of overhead trapeze Transfers: Sit to stand: Minimal assist using Rolling Walker, requires stabilization of RW during transfer Stand pivot transfer: SBA/Setup Static/dynamic standing balance: Good Verbal cueing provided for correct hand placement and correct use of AD progressed from moderate assistance to minimal assistance when coming to standing. SBA for going to sitting. Gait: Assisted patient with ambulation as follows: 50 with one 2 minute rest break feet using RollingWalker and CGA Patient presenting with Step-to gait pattern. Instructed patient in directional changes and head movements in all planes during gait trial resulting in minimal instability and no LOB. educated patient on importance of taking a rest break if needed. Therapeutic exercise: patient educated in Energy conservation, Fall prevention, General strengthening and Safety awareness., instructed patient in the following: ankle pumps, quad sets, straight leg raises, long arc quads, patient/caregiver demonstrates understanding of instructions. incorporated quad sets prior to ambulation After session, patient Up in chair and call ochoa provided. Nurse notified. A: Patient tolerated session well. Patient progressing toward goals #1, #2, #3, #4. P: PT will continue to progress gait distance with decreased rest breaks. Incorporate sit to stand techniques to prevent need for stabilization of walker. Total Timed Tx Codes in Minutes: 17 Min Total Treatment Time in Minutes: 17 Min NAYLA Nino I was present and participated throughout the session and agree with the documentation as written bythe student therapist on the encounter dated 11/28/2019. Mark Moy PT, DPT, C/NDT Pager [phone] Shikha mckenzie MD - 11/28/2019 11:20 AM CDT Orthopedic Surgery Progress Note Date of Service: 11/28/2019 11:21 Interval History: Layne Cordoba is a 69 year old female s/p s/p left femur ORIMN with plate fixation augmentation for periprosthetic femur fracture on 11/23/2019 S: No issues overnight. Rehab acceptance still pending O: Temp: [36.4 C (97.5 F)-37.2 C (98.9 F)] Pulse: [66-81] Resp: [18] BP: (111-160)/(55-81) MAP (mmHg): [74-104] General: Sitting comfortably in bed, cooperative, comfortable, NAD Cardiac: regular rate, perfused extremities Pulmonary: unlabored respirations MSK: LLE - Inspection: Dressings saturated, changed this AM. Currently dry. No malodor or erythema - SILT in SP/DP/Lin/Sa distributions, Motor intact to TA/GS/EHL/FHL, palpable DP pulse LABORATORY WBC x10^3 (/uL) Date Value 09/27/2014 11.5 (H) 09/26/2014 15.1 (H) WBC (10*3/L) Date Value 11/24/2019 12.88 (H) 11/22/2019 12.23 (H) PLT x10^3 (/uL) Date Value 09/27/2014 127 (L) 09/26/2014 125 (L) PLT (10*3/L) Date Value 11/24/2019 211 11/22/2019 179 HGB Date Value 11/24/2019 11.4 g/dL (L) 09/27/2014 8.0 G/DL (L) 11/26 0700 - 11/27 0659 In: 480 [Oral:480] Out: 1200 [Urine:1200] Imaging: No new imaging Assessment: Layne Cordoba is a 69 year old female s/p left femur ORIMN with plate fixation augmentation 11/23/19. Progressing as expected Plan: Neuro- Pain controlled, multimodal oral therapy GI- Diet: Regular Heme- Asymptomatic, will continue to monitor as indicated ID- continue home Doxycycline M/S- WBAT LLE, KI for comfort. Dressings changes BID/when saturated by nursing - [place] out no issues Activity- PT/OT DVT Prophylaxis - SCD's, lovenox 30 mg BID Disp: PT/OT, pain control, likely rehab placement After discussion with Dr. Garcia, I personally examined the patient, and personally performed a history and physical examination. Furthermore, I personally discussed the subsequent workup/treatment recommendations with the patient. Finally, I agree with resident's note as written. Janneth Wilson RN - 11/28/2019 9:35 AM CDTCare Coordinator Note: [place] [address] to f/u on referral sent yesterday. Spoke with Sachi. Per Sachi patient chart is still in review. Sachi will f/u and call CC back. Janneth OLIVER, RN Material Worker, Care Management Dept. [email or web address] (O) [phone] (C) [phone] (not for patient use) Janneth Wilson RN - 11/27/2019 4:11 PM CDTCare Coordinator Note: CC met with patient at bedside to discuss discharge planning and obtain choice for inpatient [facility]. [facility] [address] [place] [address] . Referral and clinical documentation faxed to facility. Layne Cordoba [id number] RE: Care Management Patient Choice Notification Your doctor has recommended that you have post-hospital care services at discharge. You can choose the provider you want, regardless of its relationship with [facility]. We will contact any of the agencieswithin the [facility] network, or any other agency upon your request. The hospital must assist patients, their families, or the patients underwriting account representative in selecting a post-acute care provider by using and sharing data that includes, but is not limited to, Home Health Agencies, Snf Facilities, Inpatient Rehab, or Retort Press Operator Acute Care, Prison data on quality measures and data on resource use measures. Based on where you live and agency service areas, a list was generated from: Medicare.gov Disclosure: [facility] owns or is affiliated with the following facilities/agencies: [facility] (prison and rehabilitation) Patient Choice Acknowledgement I, Layne Cordoba / authorized underwriting account representative, am aware that I have choice in selecting post-hospital care providers. [facility] has given me a list of providers in the area available to me and/or my authorized underwriting account representative. My choice(s) are listed below: ? Rehab: [facility], [address] [place] [address] - 5th Floor, [place], [place] (Ph) [phone] (F) [phone] Your signature on this form indicates that you have been given the following information: I have been advised of my right to choose the providers I wish ? If prison facilities, long-term acute care hospitals, or home health agencies were recommended, I was given a list of facilities/agencies in my geographic area that deliver these services or ? I have pre-selected or am an established client with a facility/agency and choose to initiate/continue services 11/27/19 Patient/Guardian/Responsible Republican Signature Date Signed copy placed on chart to be scanned into Electronic Medical Record Janneth OLIVER, RN Material Worker, Care Management Dept. [email or web address] (O) [phone] (C) [phone] (not for patient use) Kristi Sheridan OT - 11/27/2019 11:20 AM CDT11/27/2019 1120 OCCUPATIONAL THERAPY NOTE: Patient attempted, declining at this time due to pain and fatigue, reports waiting for pain medication requested ~15 minutes prior. Patient encouraged for participation and educated on role of acute OT, continues to decline. OT will follow up as patient amenable and schedule allows. Thank you. RICKIE Kent/Yashira, MSOT pager number: [phone] Julia Morejon - 11/27/2019 10:12 AM CDT Physical Therapy Progress Note: Recommendations: Primary discharge plan: rehabilitation hospital If patient to discharge home today, recommend home with 24/ family supervision, home with 24 hour physical assistance and home health PT . Equipment recommendations: defer to facility PAIN: -Pain Description: aching and tingling -Pain Location: left leg -Pain rating before treatment: 0, After treatment: 8 -Pain Management: Repositioning Provided PRECAUTIONS: Weight Bearing Precaution: WBAT General Precautions: PPE used:Gloves and Surgical mask, General, Fall, periwick Bracing/Cast present or required:N/A S: Patient agreeable to working with PT. She is wanting to get out of bed more during that day. O: Patient met Semi reclined in bed. Patient seen for the following: Bed mobility: Rolling: Modified independent, use of bed rails with HOB flat Supine-sit: Modified independent, use of bed rails with HOB flat Scooting to edge of bed: Independent cued patient to attempt bed mobility without assistance Transfers: Sit to stand: Moderate assist using Rolling Walker, Patient required stabilization of RW and verbal cues for hand placement. Sit to stand from various surfaces and heights Stand pivot transfer: Minimal assist, with use of RW Static/dynamic standing balance: Fair+ Verbal cueing provided for correct hand placement and correct use of AD Gait: Assisted patient with ambulation as follows: 5 feet using Rolling Walker and Minimal assist Patient presenting with Step-to gait pattern. Instructed patient in directional changes and head movements in all planes during gait trial resulting in minimal instability and no LOB with use of RW cued patient on upright positioning while using AD Therapeutic exercise: patient educated in Fall prevention, General strengthening and Safety awareness., instructed patient in the following: ankle pumps, quad sets, straight leg raises, patient/caregiver demonstrates understanding of instructions. facilitated quad contraction on L with tapping Assisted with SLR on R. Patient unable to maintain quad control during SLR. After session, patient Up in chair and call ochoa provided. Nurse notified. A: Patient tolerated session well. Patient progressing toward goals #1, #2, #4. P: PT will progress gait distance and improve sequencing of transferring cues. Total Timed Tx Codes in Minutes: 33 Min Total Treatment Time in Minutes: 33 Min NAYLA Nino Associated attestation - Mark Moy PT - 11/27/2019 11:37 AM CDTI was present and participated throughout the session and agree with the documentation as written bythe student therapist on the encounter dated 11/27/2019. Mark Moy PT, DPT, C/NDT Pager [phone], Rosetta Pavon MD - 11/27/2019 7:17 AM CDT Orthopedic Surgery Progress Note Date of Service: 11/27/2019 07:18 Interval History: Layne Cordoba is a 69 year old female s/p s/p left femur ORIMN with plate fixation augmentation for periprosthetic femur fracture on 11/23/2019 S: ISAAC BLANCHARD, patient states she's been getting up with PT/OT but has difficulty moving her LLE due to it feeling heavy and is hesitant about putting weight on her RLE due to it having a history of giving out on her. Otherwise no new complaints. O: Temp: [36.2 C (97.1 F)-37.3 C (99.1 F)] Pulse: [72-89] Resp: [16-19] BP: (127-193)/(63-96) MAP (mmHg): [88-121] General: Sitting comfortably in bed, cooperative, comfortable, NAD Cardiac: regular rate, perfused extremities Pulmonary: unlabored respirations MSK: LLE - Inspection: Dressings saturated with serosanguinous pooling within ioban, removed: incisions without overlying erythema, mild expressible serous drainage. - SILT in SP/DP/Lin/Sa distributions, Motor intact to TA/GS/EHL/FHL, palpable DP pulse LABORATORY WBC x10^3 (/uL) Date Value 09/27/2014 11.5 (H) 09/26/2014 15.1 (H) WBC (10*3/L) Date Value 11/24/2019 12.88 (H) 11/22/2019 12.23 (H) PLT x10^3 (/uL) Date Value 09/27/2014 127 (L) 09/26/2014 125 (L) PLT (10*3/L) Date Value 11/24/2019 211 11/22/2019 179 HGB Date Value 11/24/2019 11.4 g/dL (L) 09/27/2014 8.0 G/DL (L) 11/25 0700 - 11/26 0659 In: 360 [Oral:360] Out: 1200 [Urine:1200] Imaging: No new imaging Assessment: Layne Cordoba is a 69 year old female s/p left femur ORIMN with plate fixation augmentation 11/23/19 Plan: Neuro- Pain controlled, multimodal oral therapy GI- Diet: Regular Heme- Asymptomatic, will continue to monitor as indicated ID- continue home Doxycycline M/S- WBAT LLE, KI for comfort. Dressings changed today. - indwelling [place] out, has purewick Activity- PT/OT DVT Prophylaxis - SCD's, lovenox 30 mg BID Disp: PT/OT, pain control, likely rehab placement Rosetta Beauchamp MD PGY-3, Orthopaedic Surgery Associated attestation - Jose May II, MD - 11/27/2019 9:37 AM CDTI performed a history and physical examination of the patient and discussed the patient's managementwith the resident. I reviewed the resident's note and agree with the documented findings and plan of care. Jose May II, M.D. Executive Recruiter Orthopaedic Trauma [employer] Caster Orthopaedic Surgery Pager: 11/27/2019 9:37 AM Iris Dunham PTA - 11/26/2019 11:42 AM CDTPhysical Therapy Progress Note: Recommendations: Primary discharge plan:rehabilitation hospital If patient to discharge home today, recommendhome with / family supervision, home with 24 hour physical assistance and home health PT. Equipment recommendations:defer to facility PAIN: -Pain Location: left leg -Pain rating before treatment: does not rate, After treatment: does not rate -Pain Management: Nursing Notified PRECAUTIONS: Weight Bearing Precaution: WBAT General Precautions: PPE used:Gloves and Surgical mask, General, Fall Bracing/Cast present or required:Knee immobilizer S: Patient agreeable to working with PT. Patient stating he feels nauseous and threw up prior to therapist arrival. O: Patient met Semi reclined in bed. Patient seen for the following: Bed mobility: Repositioned in bed: Modified Independent Therapeutic exercise: patient educated in Energy conservation, Fall prevention, General strengthening, Positioning and Safety awareness., instructed patient in the following: ankle pumps, quad sets, glut sets, heel slides, straight leg raises, patient/caregiver instructed to perform HEP 10-15 times per day, 1-3 repetitio ns., patient/caregiver verbalizes understanding of instructions. After session, patient Semi reclined in bed and call ochoa provided. A: Patient tolerated session fair. Patient progressing toward goals #1, #4. P: PT will - progress gait distance. Total Timed Tx Codes in Minutes: 34 Min Total Treatment Time in Minutes: 34 Min Iris Dunham PTA Pager #: [phone] Supervising PT Gifty Brownlee Flakito Rios MD - 11/26/2019 9:24 AM CDT Orthopedic Surgery Progress Note Date of Service: 11/26/2019 09:25 Interval History: Layne Cordoba is a 69 year old female s/p left femoral IMN and ORIF for periprosthetic femur fracture on 11/23/2019 S: NAEON, doing well this am with no complaints. Patient states she is not ready to be discharged until after she feels comfortable using a bedside commode. O: Temp: [36.1 C (97 F)-37.4 C (99.3 F)] Pulse: [72-91] Resp: [16-20] BP: (121-168)/(54-77) MAP (mmHg): [76-106] General: Sitting comfortably in bed, cooperative, comfortable Cardiac: regular rate Pulmonary: unlabored respirations MSK: LLE - Inspection: Dressings c/d/i - SILT in SP/DP/S/S distributions, Motor intact to AT/PT/EHL/FHL, palpable DP pulse LABORATORY WBC x10^3 (/uL) Date Value 09/27/2014 11.5 (H) 09/26/2014 15.1 (H) WBC (10*3/L) Date Value 11/24/2019 12.88 (H) 11/22/2019 12.23 (H) PLT x10^3 (/uL) Date Value 09/27/2014 127 (L) 09/26/2014 125 (L) PLT (10*3/L) Date Value 11/24/2019 211 11/22/2019 179 HGB Date Value 11/24/2019 11.4 g/dL (L) 09/27/2014 8.0 G/DL (L) 11/24 0700 - 11/25 0659 In: - Out: 1200 [Urine:1200] Imaging: No new imaging Assessment: Layne Cordoba is a 69 year old female s/p left femur ORIMN with plate fixation augmentation 11/23/19 Plan: Neuro- Pain controlled, multimodal oral therapy GI- Diet: Regualr Heme- Asymptomatic, will continue to monitor ID- Doxycycline M/S- WBAT LLE, KI for comfort - [place] out Activity- PT/OT DVT Prophylaxis - SCD's, lovenox 30 mg BID Disp: Will likely discharge to rehab vs. home as per PT tomorrow as patient worried about mobility. Flakito Rios MD PGY-1 Orthopaedic Surgery Pager: [phone] Associated attestation - Jose May II, MD - 11/27/2019 9:39 AM CDTI performed a history and physical examination of the patient and discussed the patient's managementwith the resident. I reviewed the resident's note and agree with the documented findings and plan of care. Jose May II, M.D. Executive Recruiter Orthopaedic Trauma [employer] Orthopaedic Surgery Pager: 11/27/2019 9:39 AM Jose Donald PTA - 11/25/2019 8:28 AM CDT Physical Therapy Progress Note: Recommendations: Primary discharge plan: rehabilitation hospital If patient to discharge home today, recommend home with 24/ family supervision, home with 24 hour physical assistance and home health PT . Equipment recommendations: defer to facility PAIN: -Pain Description: aching and constant -Pain Location: L LE -Pain rating before treatment: 4, After treatment: 10 -Pain Management: reports taking pain meds PRECAUTIONS: Weight Bearing Precaution: WBAT, Left, LE General Precautions: PPE used:Gloves and Surgical mask, General, Fall, pure wick Bracing/Cast present or required:Knee immobilizer, for comfort S: Patient agreeable to working with PT. Patient stated she is used to pain as she has had her knees done before and they still bother her. O: Patient met Semi reclined in bed. Patient seen for the following: Bed mobility: Rolling: Modified independent Reclined to sitting: Modified independent Sitting balance Excellent Scooting to edge of bed: Modified independent Sit to supine: Modified independent Repositioned patient to head of bed: Modified independent Transfers: Sit to stand: Minimal assist using Rolling Walker Stand to sit: Minimal assist using Rolling Walker Static/dynamic standing balance: Fair+ Verbal cueing provided for correct hand placement and correct use of AD Patient experienced difficulty facilitating stand but once upright patient presented with no instability but pain present with weight bearing Gait: Assisted patient with ambulation as follows: 12 feet using Rolling Walker and CGA Patient presenting with step to pattern, antalgic gait, slow fernanda, moderate fatigue throughout, slight instability with no LOB, genu valgum present B gait pattern. patient limited by pain at this time, anticipate gait stability and distance to increase once pain is managed Therapeutic exercise: instructed patient in the following: ankle pumps, quad sets, glut sets, hip abduction/adduction, long arc quads, patient/caregiver instructed to perform HEP 2-3 times per day, 10-15 repetitions., patient/caregiver demonstrates understanding of instructions. educated patient on benefits of therex, pt verbalized understanding After session, patient Semi reclined in bed and call ochoa provided. A: Patient tolerated session poorly. Patient progressing toward goals #1, #2, #3, #4. P: PT will - attempt to increase gait stability and transfers . Total Timed Tx Codes in Minutes: 26 Min Total Treatment Time in Minutes: 26 Min Jose Donald PTA [facility] [phone] Supervising PT: Gifty Brownlee Chavez Chopra, - 11/25/2019 7:36 AM CDT Orthopedic Surgery Progress Note Date of Service: 11/25/2019 07:36 S: 24 hour events:Doing well this AM; NAEON O: Temp: [36.7 C (98 F)-37.6 C (99.6 F)] Pulse: [68-95] Resp: [16-18] BP: (120-140)/(59-72) MAP (mmHg): [79-93] General: AAOX3; no apparent distress Cardiac: regular rate Pulmonary: unlabored respirations Extremity: LLE: Dressings c/d/i. Motor grossly intact TA/GS/EHL/FHL, sensation intact to light touch in deep peroneal, superficial peroneal, tibial, sural, and saphenous distributions. BCR to toes LABORATORY WBC x10^3 (/uL) Date Value 09/27/2014 11.5 (H) 09/26/2014 15.1 (H) WBC (10*3/L) Date Value 11/24/2019 12.88 (H) 11/22/2019 12.23 (H) THB ART (G/DL) Date Value 09/24/2014 9.6 (L) 09/24/2014 11.2 (L) 09/24/2014 12.4 (L) HGB Date Value 11/24/2019 11.4 g/dL (L) 11/22/2019 13.4 g/dL 06/15/2018 13.3 g/dL 09/27/2014 8.0 G/DL (L) 09/26/2014 7.7 G/DL (L) 09/25/2014 7.9 G/DL (L) PLT x10^3 (/uL) Date Value 09/27/2014 127 (L) 09/26/2014 125 (L) PLT (10*3/L) Date Value 11/24/2019 211 11/22/2019 179 HCT (%) Date Value 11/24/2019 34.0 (L) 09/27/2014 24.1 (L) 11/23 0700 - 11/24 0659 In: 480 [Oral:480] Out: - A/P Layne Cordoba is a 69 year old female s/p left femur ORIMN with plate fixation augmentation 11/23/19. Neuro- Pain is controlled with multimodal pain medications, will continue GI- Diet: Regular Heme- Will continue to monitor ID- Doxycycline M/S- WBAT LLE. Knee immobilizer for comfort - [place] out once up with PT Activity- PT/OT DVT Prophylaxis - SCD's and lovenox 30mg BID Disp: Pending pain control and mobilization with PT. Anticipate will remain in house until early next week, but if pain is controlled can discharge this weekend. Chavez Fisher DO PGY-2 [phone] 11/25/2019 Associated attestation - Jose May II, MD - 11/27/2019 9:42 AM CDTI performed a history and physical examination of the patient and discussed the patient's managementwith the resident. I reviewed the resident's note and agree with the documented findings and plan of care. Jose May II, M.D. Executive Recruiter Orthopaedic Trauma [employer] Orthopaedic Surgery Pager: 11/27/2019 9:42 AM Zachery De Leon MSW - 11/24/2019 9:47 AM CDTCare Management Social Functional Assessment Patient Name: Layne Cordoba Age: [age] year old Sex: female Patient's Previous Admission Date at [facility]: 09/24/2014 Current diagnosis and co-morbidities: Femur Fracture Readmission Questions: Was patient discharged from any acute care hospital within the last 30 days: No Social Functional Assessment: Primary language spoken/preferred: Bulgarian Mental Status: Alert & Oriented to Person,Place & Time Information given by: Self Patient's support system: Other Name and number of support system: SisterLuann [phone] Primary Make Up Artist: Self MPOA: Same as support system Living Arrangement: Home Address of living arrangement : [address] [place] [address] [place] [address] Persons living in home: Self Barriers to returning home: None Baseline functional status- ambulation: Independent Functional status-baseline personal care: Independent Baseline functional status- driving: Independent Baseline functional status- grocery shopping: Independent Functional status-baseline housekeeping: Independent Functional status-baseline meal prep: Independent Current functional status same as prior: No(Pending PT/OT eval) Do you have a PCP?: Yes Name of PCP: Rosenda Valadez Home Health Care Agency: No Provider Services: No DME Company: No Equipment: Rollator;Walker;CPAP Hemodialysis: No Community resources utilized: None Funding Resources: Medicare A & B Prescription coverage plan: Medicare Part D Pharmacy where meds are filled: Other Other pharmacy: [facility] Anticipated services prior to disharge: PT/OT/ST Expected mode of discharge transportation: Personal vehicle;Same as support system Additional info required for discharge planning: Pending P/T O/T recommendation Recommended discharge plan: Home SFA Complete: Social Functional Assessment complete: Yes Alcohol Use Screening (AUDIT-C) How often do you have a drink containing alcohol?: Never SCORE: 0 Any issues or concerns with obtaining/affording your medications at home: no. Are you or your support system able to fruit picker medications at discharge: yes. Role of Care Management explained. Merrick De Leon LCSW Door Operator [facility] [phone] signed by Zachery De Leon MSW at 11/24/2019 9:47 AM Kristi Sheridan OT - 11/24/2019 9:05 AM CDT11/24/2019 0905 OCCUPATIONAL THERAPY NOTE: OT consult received, chart reviewed. Patient declining this AM, wanting time to finish breakfast however amenable to OT session later this AM. OT will plan to follow up as schedule allows. Thank you. RICKIE Kent/Yashira, MSOT pager number: [phone] Bob Velazco MD - 11/24/2019 8:38 AM CDT Medicine Service Progress Note Date of Service: 11/24/2019 08:38 24-HOUR EVENTS: - Went to the OR yesterday for IMN and ORIF of left femur SUBJECTIVE: She doing well, states her surgery went really well. Her pain is well controlled, denies difficulty breathing. She states she was told to bring her own CPAP machine from home. PHYSICAL EXAM: Vitals: 11/23/19 2230 11/24/19 0425 11/24/19 0743 11/24/19 0804 BP: (!) 161/84 125/69 (!) 140/68 BP Location: Right arm Patient Position: Supine Supine Pulse: 98 87 89 84 Resp: 16 16 18 Temp: 36.5 C (97.7 F) 36.9 C (98.5 F) 37.3 C (99.2 F) TempSrc: Oral Oral Oral SpO2: 96% 92% 95% 94% Weight: Height: Intake/Output Summary (Last 24 hours) at 11/24/2019 0838 Last data filed at 11/23/2019 1830 Gross per 24 hour Intake 2600 ml Output 525 ml Net 2075 ml Physical Exam Constitutional: No distress. Neck: She has a small incision scar on her left neck where the left CVC was placed. Wound is not actively bleeding but has dried blood around it. No erythema was appreciated Cardiovascular: Normal rate, regular rhythm, S1 normal and S2 normal. Pulses: Dorsalis pedis pulses are 2+ on the right side, and 1+ on the left side. Pulmonary/Chest: She has rales in the right lower field. Abdominal: Soft. Bowel sounds are normal. She exhibits no distension. There is no tenderness. Skin: Skin is warm, dry and intact. LABS/IMAGING - reviewed, pertinent results as below: Recent Labs 11/24/19 0429 WBC 12.88* HGB 11.4* HCT 34.0* MCV 95.0 PLT 211 NA 133* K 4.4 CL 104 TCO2 24 CREAT 0.63 BUN 15 ASSESSMENT/PLAN Layne Cordoba is a 69 year old female admitted to the hospital with: Left femur fracture History of infected hardware Clinical osteoporosis Chronic use of steroids Vitamin D deficiency She is doing well POD #1 from left IMN and ORIF of left femur. Agree with PT/OT consult. Patient mayneed calcium and vitamin D supplementation. She will also need bisphosphonates when deemed appropriate by Orthopedic surgery. Her vitamin D level is undetectable, she will need high dose supplementation. Additionally, patient noted to have mild pulmonary edema and trace asymmetrical pitting edema. Recommend conservative fluid management to avoid volume overload. - Continue doxycycline - Continue Miralax - Extra dose of prednisone 10 mg today, may resume 10 mg daily tomorrow as prescribed by her Chemical Dependency Nurse. - Agree with PT/OT - Conservative fluid management, avoid IV fluids if not necessary - ergocalciferol 50,000 units weekly for 6 weeks Presumed COPD SHAMIR No acute issues - Continue fluticasone/salmeterol - albuterol [id number] PRN - CPAP at night At this time, no further medical issues or needs identified. Medicine Service will sign off. If any questions, please page [phone] PAIN: Controlled Prophylaxis: DVT- enoxaparin Stress Ulcer: no indication for prophylaxis Bob Madison MD Internal Medicine PGY-3 Pager: [phone] END OF DAILY PROGRESS NOTE CURRENT MEDICATIONS - reviewed. Current Facility-Administered Medications Medication Dose Route Frequency Last Rate Last Dose doxycycline hyclate (Vibramycin) capsule 100 mg 100 mg Oral DAILY 100 mg at 11/24/19 0819 predniSONE (DELTASONE) tablet 10 mg 10 mg Oral ONCE ceFAZolin (ANCEF) 3,000 mg in NaCl 0.9% (NS) 100 mL piggyback 3,000 mg IV Piggyback Q8H ABX 3,000 mg at 11/24/19 0818 enoxaparin (LOVENOX) injection 30 mg 30 mg Subcutaneous Q12H 30 mg at 11/24/19 0819 Fluticasone-Salmeterol (ADVAIR) 100-50 mcg/dose inhalation disk 1 Puff 1 Puff Inhalation Q12H1 Puff at 11/24/19 0742 ipratropium-albuterol (DUONEB) 0.5 mg-3 mg(2.5 mg base)/3 mL nebulizer solution 3 mL 3 mL Inhalation Q6HPRN Polyethylene Glycol 3350 (MIRALAX) powder 17 g 17 g Oral BID 17 g at 11/24/19 0800 predniSONE (DELTASONE) tablet 10 mg 10 mg Oral DAILY 10 mg at 11/24/19 0819 atorvastatin (LIPITOR) tablet 10 mg 10 mg Oral QHS 10 mg at 11/23/19 2301 docusate (COLACE) capsule 100 mg 100 mg Oral Q12H 100 mg at 11/24/19 0819 gabapentin (NEURONTIN) capsule 300 mg 300 mg Oral TID 300 mg at 11/24/19 0819 HYDROcodone-acetaminophen (NORCO 5) 5-325 mg tablet 1 tablet 1 tablet Oral Q6HPRN 1 tablet at11/24/19 0029 morpHINE injection 4 mg 4 mg Slow IV Push Q4HPRN 4 mg at 11/24/19 0516 ondansetron (ZOFRAN (PF)) injection 4 mg 4 mg Slow IV Push Q6HPRN traMADol (ULTRAM) tablet 50 mg 50 mg Oral Q4HPRN Associated attestation - Rebecca Dewitt MD - 11/24/2019 12:28 PM CDTI personally interviewed and examined this patient with Dr. Madison on November 24, 2019. I actively participated in the decision-making process. Please see Dr. Madison' note for additional details. Patient states she will go stay with her mother after discharge. She feels much better today regarding her ability to remain independent after she recovers from this fracture. Rebecca Dewitt MD, [facility] Shikha Remy MD - 11/24/2019 7:07 AM CDT Orthopedic Surgery Progress Note Date of Service: 11/24/2019 07:07 S: 24 hour events: Pain largely controlled overnight. No new complaint this morning NAOE - Denies F / C/ N/ V/ CP/ SOB/ dizziness /lightheadedness O: Temp: [36.4 C (97.6 F)-36.9 C (98.5 F)] Pulse: [70-102] Resp: [11-21] BP: (100-161)/(43-105) MAP (mmHg): [71-119] General: AAOX3; no apparent distress Cardiac: regular rate Pulmonary: unlabored respirations Extremity: LLE: Dressings c/d/i. Motor grossly intact TA/GS/EHL/FHL, sensation intact to light touch in deep peroneal, superficial peroneal, tibial, sural, and saphenous distributions. BCR to toes LABORATORY WBC x10^3 (/uL) Date Value 09/27/2014 11.5 (H) 09/26/2014 15.1 (H) WBC (10*3/L) Date Value 11/24/2019 12.88 (H) 11/22/2019 12.23 (H) THB ART (G/DL) Date Value 09/24/2014 9.6 (L) 09/24/2014 11.2 (L) 09/24/2014 12.4 (L) HGB Date Value 11/24/2019 11.4 g/dL (L) 11/22/2019 13.4 g/dL 06/15/2018 13.3 g/dL 09/27/2014 8.0 G/DL (L) 09/26/2014 7.7 G/DL (L) 09/25/2014 7.9 G/DL (L) PLT x10^3 (/uL) Date Value 09/27/2014 127 (L) 09/26/2014 125 (L) PLT (10*3/L) Date Value 11/24/2019 211 11/22/2019 179 HCT (%) Date Value 11/24/2019 34.0 (L) 09/27/2014 24.1 (L) 11/22 0700 - 11/23 0659 In: 2600 [I.V.:2600] Out: 525 [Urine:275] A/P Layne Cordoba is a 69 year old female s/p left femur ORIMN with plate fixation augmentation 11/23/19. Neuro- Pain is controlled with multimodal pain medications, will continue GI- Diet: Regular Heme- Post-op Hgb 11.4, no issues ID- periop ancef complete today, will restart doxycycline in the morning M/S- WBAT LLE. Knee immobilizer for comfort - [place] out once up with PT Activity- PT/OT DVT Prophylaxis - SCD's and lovenox 30mg BID Disp: Pending pain control and mobilization with PT. Anticipate will remain in house until early next week, but if pain is controlled can discharge this weekend. After discussion with Dr. Garcia, I personally examined the patient, and personally performed a history and physical examination. Furthermore, I personally discussed the subsequent workup/treatment recommendations with the patient. Finally, I agree with resident's note as written. Sha Cash MD - 11/23/2019 10:29 PM CDTORTHO POST-OP CHECK AND PLAN Pt resting comfortably in 11B. VSS, breathing comfortably. Dressings c/d/i. palpable DP pulse, motor intact ankle plantar and dorsiflecion, SILT all distributions in foot Diet: regular Activity: WBAT LLE DVT ppx: 20 mg lovenox BID for 28 days A/P: Pt s/p L femur ORIF and IMN. No post-op complications. Sha Ledesma MD 11/23/2019 23:30 Rema Barker LMSW - 11/23/2019 2:57 PM CDTSocial Worker Note SW attempted SFA in AM patient off unit. SW attempted SFA in PM patient in OR. Rema Aponte LMSW Door Operator Care Management C: [phone] O: [phone] [email or web address] Shikha Remy MD - 11/23/2019 9:04 AM CDT Orthopedic Surgery Progress Note Date of Service: 11/23/2019 09:04 S: 24 hour events: NAOE - Denies F / C/ N/ V/ CP/ SOB/ dizziness /lightheadedness O: Temp: [36.6 C (97.9 F)-37.4 C (99.4 F)] Pulse: [71-88] Resp: [16-19] BP: (107-163)/(51-117) MAP (mmHg): [72-97] General: AAOX3; no apparent distress Cardiac: regular rate Pulmonary: unlabored respirations Extremity: LLE: KI in place. Motor grossly intact TA/GS/EHL/FHL, sensation intact to light touch in deep peroneal, superficial peroneal, tibial, sural, and saphenous distributions. Palpable pedal pulses. LABORATORY WBC x10^3 (/uL) Date Value 09/27/2014 11.5 (H) 09/26/2014 15.1 (H) WBC (10*3/L) Date Value 11/22/2019 12.23 (H) 06/15/2018 8.58 THB ART (G/DL) Date Value 09/24/2014 9.6 (L) 09/24/2014 11.2 (L) 09/24/2014 12.4 (L) HGB Date Value 11/22/2019 13.4 g/dL 06/15/2018 13.3 g/dL 09/27/2014 8.0 G/DL (L) 09/26/2014 7.7 G/DL (L) 09/25/2014 7.9 G/DL (L) PLT x10^3 (/uL) Date Value 09/27/2014 127 (L) 09/26/2014 125 (L) PLT (10*3/L) Date Value 11/22/2019 179 06/15/2018 208 HCT (%) Date Value 11/22/2019 40.0 09/27/2014 24.1 (L) 11/21 0700 - 11/22 0659 In: - Out: 250 [Urine:250] A/P Layne Cordoba is a 69 year old female with left femur fracture. -Cardiology consult and echo this am -NPO for surgery this afternoon -Consent in chart -All questions answered -Will remain in house for periop abx and PT/OT post-op After discussion with Dr. Garcia, I personally examined the patient, and personally performed a history and physical examination. Furthermore, I personally discussed the subsequent workup/treatment recommendations with the patient. Finally, I agree with resident's note as written. All treatment options were discussed with the patient including the risks and benefits of surgery aswell as the likelihood of the patient achieving the desired goals. PARQ held. All questions answered. Risks include but are not limited to bleeding,infection, damage to nerve, muscle, artery, tendon, pain, stiffness, scarring, functional or cosmetic deformity, malunion, nonuion, need for further surgery, need for hardware removal, post traumatic arthritis, dvt, pulmonary emboli, and . No guarantees were expressed or implied other than due diligence.... documented in this encounter Plan of Treatment Name Type Priority Associated Diagnoses Date/Ti me ABG+COOX+NA+K+GLU+CA2+ LAB Routine 11/22 4:53 PM CDT VBG+VCOOX+NA+K+GLU+CA2+ LAB Routine 11/09 4:58 PM CDT VBG+VCOOX+NA+K+GLU+CA2+ LAB Routine 11/09 6:29 PM CDT Name Type Priority Associated Diagnoses Order S chedule ABG+COOX+NA+K+GLU+CA2+ LAB Routine ONCE for 1 Occurrences starting 2019 until 11/23/2019 VBG+VCOOX+NA+K+GLU+CA2 LAB Routine ONCE for 1 Occurrences + starting 2019 until 11/23/2019 VBG+VCOOX+NA+K+GLU+CA2 LAB Routine ONCE for 1 Occurrences + starting 2019 until 11/23/2019 Health Maintenance Due Date Last Done Comments [...] of this encounter Implants Implanted Type Area Low Pressure Kettle Operator Device Shelf Model / Identifier Expiration Serial / Lot Date Bone, [facility] Osteoset Resorbable Bead Kit Fast Cure 25cc Grafts #[id number] - [id number] BONE [facility] [id number] / Implanted: Qty: 2 on 09/26/2012 at [facility] [employer] / Dbm Putty Maxxeus 5cc Cts #2017-40 - [id number] BONE Right: [facility] Tissue 10/10/2013 / Implanted: Qty: 1 on 04/16/2014 by Butch Maldonado MD at [facility] [employer] / [id number] Dbm Putty Maxxeus 5cc Cts #2017-40 - [id number] BONE [facility] Tissue 10/11/2015 / Implanted: Qty: 1 on 04/16/2014 by Guicho Hammonds MD at [facility] Services / [id number] Femur Shaft, [facility] Tissue Services > 11.0 Cm Frozen > 11.0 Cm #1135-14 - [id number] BONE Right: [facility] Tissue 07/10/2018 1135-14 / Implanted: Qty: 1 on 09/24/2014 by Butch Maldonado MD at [facility] [employer] [id number] / [id number] Description:[facility] Tissue Services ID: [id number] Femur Shaft > 11.0 cm 14.0 cm exp: 07/10/2018 PrCode: 1135-14 CTS: Lot: [id number] 3.5mm Hex Button Button Right: Hip Baron 12/10/2015 2 232-35 / Implanted: Qty: 1 on 04/16/2014 by Aly Garcia MD at [facility] / [id number] 3.5mm Hex Button Button Right: Hip Baron 08/25/2017 2 232-35 / Implanted: Qty: 1 on 04/16/2014 at [facility] / [id number] 3.5mm Hex Button Button Right: Hip Baron 12/14/2017 2 / Implanted: Qty: 1 on 04/16/2014 by Aly Garcia MD at [facility] / [id number] 3.5mm Hex Button Button Right: Hip Baron 09/08/2016 2 / Implanted: Qty: 1 on 04/16/2014 by Aly Garcia MD at [facility] / [id number] 3.5mm Hex Button Button Right: Hip Baron 03/08/2018 2 / Implanted: Qty: 1 on 04/16/2014 by Aly Garcia MD at [facility] / [id number] Cable Ready Cable Dredge Runner System CABLE Right: Hip Baron 12/10/2023 2231-09-08 / Implanted: Qty: 1 on 04/16/2014 by Aly Garcia MD at [facility] / [id number] Cable Ready Cable Dredge Runner System CABLE Right: Hip Baron 12/10/2023 2231-09-08 / Implanted: Qty: 1 on 04/16/2014 by Aly Garcia MD at [facility] / [id number] Cement, Ilsa Bone #6191-1-001 - [id number] CEMENT Right: Knee S tryker 01/09/2015 6191-1-001 / Implanted: Qty: 2 on 09/26/2012 by Savanah Lomax MD at [facility] / [id number] Cement, [employer]ace [employer] Nephew Versabond #[id number] - [id number] CEMENT Right: Knee [employer]ace [employer] Nephew 03/12/2014 [id number] / Implanted: Qty: 3 on 12/14/2012 by Savanah Lomax MD at [facility] / [id number] Bone Cement, Depuy Smartset Ghv Gentamicin 40g #[id number] - [id number] CEMENT Right: Leg Depuy Synthes 11/25/2015 [id number] / Implanted: Qty: 1 on 09/24/2014 by Butch Maldonado MD at [facility] / [id number] Bone Cement, Depuy Smartset Ghv Gentamicin 40g #[id number] - [id number] CEMENT Right: Leg Depuy Synthes 11/25/2015 [id number] / Implanted: Qty: 1 on 09/24/2014 by Butch Maldonado MD at [facility] / [id number] Lps Distal Femoral Component Xx Small Right Femoral Right: Knee 08/12/[id number] / Implanted: Qty: 1 on 12/14/2012 by Savanah Lomax MD at [facility] Component / [id number] Segmental Component Femoral Sleeve Right: Leg Depuy Synthes 02/25/2024 [id number] / Implanted: Qty: 1 on 09/24/2014 by Butch Maldonado MD at [facility] / [id number] Description:REF: 1987-01-045 LOT: [id number] Segmental Component 45 mm EXPIRATION: 2024-02 Femoral Stem Bowed Femoral Stem Right: Leg Depuy Synthes [id number] / Implanted: Qty: 1 on 09/24/2014 by Butch Maldonado MD at [facility] / [id number] Description:REF: 15-311 LOT: [id number] EXPIRATION: 2023-06 11mm x 200mm cemented Femoral Stem Bowed Ncb Periprosthetic Proximal Femur Plate, Right, 9 Holes, L. 245 Mm Femur Right: Leg Baron 12/25/2020 [id number] / Implanted: Qty: 1 on 09/24/2014 by Butch Maldonado MD at [facility] / [id number] Description:LOT: [id number] NORRIS: [id number] REF: [phone] NCB Periprosthetic Proximal Femur plate, right, 9 holes, L. 245mm Expiration: 2020-12 Lps Tibial Insert Hinge Morral Xx Small 16mm Hinge Right: Knee 07/12/[id number] / Implanted: Qty: 1 on 12/14/2012 by Savanah Lomax MD at [facility] / [id number] Tka Tibial Tray, Depuy Mbt Rev Tib Tray Sz 3 15mm #[id number] - [id number] Right: Knee Depuy Synthes 06/11/2022 [id number] / Implanted: Qty: 1 on 12/14/2012 by Savanah Lomax MD at [facility] / [id number] Plate, Synthes 4.5mm Broad Lcp 12h/224mm #226.621 - [id number] PL ATE Right: Leg Synthes 226.621 / Implanted: Qty: 1 on 04/16/2014 by Guicho Hammonds MD at [facility] / Screw, Synthes 4.5mm Cortex Slf-T 14mm #214.814 - [id number] SCRE W Right: Leg Synthes 214.814 / Implanted: Qty: 1 on 04/16/2014 by Guicho Hammonds MD at [facility] / Screw, Synthes 4.5mm Cortex Slf-T 26mm #214.826 - [id number] SCRE W Right: Leg Synthes 214.826 / Implanted: Qty: 1 on 04/16/2014 by Guicho Hammonds MD at [facility] / Screw, Synthes 4.5mm Cortex Slf-T 28mm #214.828 - [id number] SCRE W Right: Leg Synthes 214.828 / Implanted: Qty: 1 on 04/16/2014 by Guicho Hammonds MD at [facility] / Screw, Synthes 4.5mm Cortex Slf-T 30mm #214.830 - [id number] SCRE W Right: Leg Synthes 214.830 / Implanted: Qty: 1 on 04/16/2014 by Guicho Hammonds MD at [facility] / Screw, Synthes 5.0mm Lckng Slf-T W/T25 Star Rec 26mm #212.20 7 - [id number] SCREW Right: Leg Synthes 212.207 / Implanted: Qty: 2 on 04/16/2014 by Guicho Hammonds MD at [facility] / Screw, Synthes 5.0mm Lckng Slf-T W/T25 Star Rec 28mm #212.20 8 - [id number] SCREW Right: Leg Synthes 212.208 / Implanted: Qty: 1 on 04/16/2014 at [facility] / Screw, Synthes 5.0mm Lckng Slf-T W/T25 Star Rec 30mm #212.20 9 - [id number] SCREW Right: Leg Synthes 212.209 / Implanted: Qty: 1 on 04/16/2014 by Guicho Hammonds MD at [facility] / Screw, Synthes 5.0mm Periprosthetic Lckn g Slf-T Star 8mm #02.221.508 - [id number] SCREW Right: Leg Synthes .221.508 / Implanted: Qty: 1 on 04/16/2014 at [facility] / Screw, Synthes 5.0mm Periprosthetic Lckn g Slf-T Star 10mm #02.221.510 - [id number] SCREW Right: Leg Synthes .221.510 / Implanted: Qty: 1 on 04/16/2014 by Guicho Hammonds MD at [facility] / Screw, Synthes 5.0mm Periprosthetic Lckn g Slf-T Star 12mm #02.221.512 - [id number] SCREW Right: Leg Synthes 221.512 / Implanted: Qty: 1 on 04/16/2014 by Guicho Hammonds MD at [facility] / Bicortical Screw SCREW Right: Hip Baron 02 .67108.030 / Implanted: Qty: 1 on 04/16/2014 by Aly Garcia MD at [facility] / Bicortical Screw SCREW Right: Hip Baron 02 .08485.040 / Implanted: Qty: 1 on 04/16/2014 by Aly Garcia MD at [facility] / Bicortical Screw SCREW Right: Hip Baron 02 .87854.032 / Implanted: Qty: 2 on 04/16/2014 by Aly Garcia MD at [facility] / Bicortical Screw SCREW Right: Hip Baron 02 .54367.034 / Implanted: Qty: 1 on 04/16/2014 by Aly Garcia MD at [facility] / Bicortical Screw SCREW Right: Hip Baron 02 .91448.034 / Implanted: Qty: 1 on 04/16/2014 at [facility] / Bicortical Screw SCREW Right: Hip Baron 02 .32984.038 / Implanted: Qty: 1 on 04/16/2014 by Aly Garcia MD at [facility] / Unicortical Screw SCREW Right: Hip Baron 0 2.33415.014 / Implanted: Qty: 1 on 04/16/2014 by Aly Garcia MD at [facility] / Unicortical Screw SCREW Right: Hip Baron 0 2.54814.016 / Implanted: Qty: 1 on 04/16/2014 by Aly aGrcia MD at [facility] / 5.0 Cortcal Screw 02.32868.014 SCREW Right: Leg Baron 02.94750.014 / Implanted: Qty: 2 on 09/24/2014 by Butch Maldonado MD at [facility] / 02.72599.0 14 Description:5.0 Cortical SCREWS: 02.0315 0.014 5.0 Cortical Screw 02.29178.030 SCREW Right: Leg Baron 02.50619.030 / Implanted: Qty: 2 on 09/24/2014 by Butch Maldonado MD at [facility] / 02.55246.0 30 Description:5.0 Cortical SCREWS: 02.0315 0.030 5.0 Cortical Screw 02.04619.040 SCREW Right: Leg Baron 02.19513.040 / Implanted: Qty: 1 on 09/24/2014 by Butch Maldonado MD at [facility] / 02.04001.0 40 Description:5.0 Cortical SCREW 02.65056. 040 5.0 Cortical Screw 02.63592.016 SCREW Right: Leg Baron 02.25193.016 / Implanted: Qty: 3 on 09/24/2014 by Butch Maldonado MD at [facility] / 02.21091.0 16 Description:5.0 Cortical Screw 02.24718. 016 5.0 Cortical Screw 02.30267.018 SCREW Right: Leg Baron 02.00253.018 / Implanted: Qty: 1 on 09/24/2014 by Butch Maldonado MD at [facility] / 02.32066.0 18 Description:5.0 Cortical Screw 02.23494. 018 85mm Lag Screw And 80mm Compression Screw SCREW Left: Leg Mace & Nephew 07/19/2028 [id number] / Implanted: Qty: 1 on 11/23/2019 by Shikha Remy MD at [facility] / [id number] Screw, Mace & Nephew Trigen Low Profile 5.0mm X 42.5mm #716 88991 - Sna SCREW Left: Leg [employer]ace [employer] Nephew 06/03/2029 [id number] / Implanted: Qty: 1 on 11/23/2019 by Shikha Remy MD at [facility] NA / [id number] Screw, Mace [employer] Nephew Trigen Low Profile 5.0mm X 52.5mm #716 37201 - Sna SCREW Left: Leg Mace [employer] Nephew 01/31/2029 [id number] / Implanted: Qty: 1 on 11/23/2019 by Shikha Remy MD at [facility] NA / [id number] Screw, Mace [employer] Nephew Trigen Low Profile 5.0mm X 47.5mm #716 90446 - Sna SCREW Left: Leg Mace [employer] Nephew 10/31/2027 [id number] / Implanted: Qty: 1 on 11/23/2019 by Shikha Remy MD at [facility] NA / [id number] Screw, Mace & Nephew Clara-Loc 4.5mm T25 Locking 56mm Self-Tapping #50004746 - S SCREW Mace [employer] Nephew [id number] / Implanted: Qty: 1 on 11/23/2019 by Shikha Remy MD at [facility] / Screw, Mace [employer] Nephew Clara-Loc 4.5mm T25 Blunt Tip Loc kim 10mm #35837114 - S SCREW [employer]hew [id number] / Implanted: Qty: 4 on 11/23/2019 by Shikha Remy MD at [facility] / Screw, Mace [employer] Nephew Clara-Loc 4.5mm T25 Blunt Tip Loc kim 12mm #99629144 - S SCREW M[employer]hew [id number] / Implanted: Qty: 1 on 11/23/2019 by Shikha Remy MD at [facility] / Screw, Mace [employer] Nephew Clara-Loc 4.5mm T25 Locking 14mm Self-Tapping #31907023 - S SCREW [employer]hew [id number] / Implanted: Qty: 2 on 11/23/2019 by Shikha Remy MD at [facility] / Screw, Mace [employer] Nephew Clara-Loc 4.5mm T25 Locking 18mm Self-Tapping #69478547 - S SCREW [employer]hew [id number] / Implanted: Qty: 1 on 11/23/2019 by Shikha Remy MD at [facility] / Screw, Mace [employer] Nephew Clara-Loc 4.5mm T25 Locking 24mm Self-Tapping #35321182 - S SCREW Mace [employer] Nephew [id number] / Implanted: Qty: 1 on 11/23/2019 by Shikha Remy MD at [facility] / Stem, Depuy Sig Tib Niko Stm 13x60 08/13.3 #504189 - [id number] St em Right: Knee Depuy Synthes 03/12/2022 124602 / Implanted: Qty: 1 on 12/14/2012 by Savanah Lomax MD at [facility] / [id number] Lsp Stem Straight 12mm X 125mm Cemented Stem Right: Knee 06/11/2022 [id number] / Implanted: Qty: 1 on 12/14/2012 by Savanah Lomax MD at [facility] / [id number] Drill Bit, Mace & Nephew 3.5mm W/Quick Connect #[id number] - S Lin pply Item Mace & Nephew [id number] / Implanted: Qty: 1 on 11/23/2019 by Shikha Remy MD at [facility] / Wire, Baron Jewels 16ga Long, 30cm #1292-61 - [id number] WIRE Right: [facility] 1292-61 / Implanted: Qty: 3 on 09/26/2012 by Savanah Lomax MD at [facility] 002 / 002 Cable Ready Cable Dredge Runner System Right: Hip Baron 10/10/2023 2231-09-08 / Implanted: Qty: 1 on 04/16/2014 by Aly Garcia MD at [facility] / [id number] Locking Cap Right: Hip Baron 02.0315 0.300 / Implanted: Qty: 8 on 04/16/2014 by Aly Garcia MD at [facility] / Curved Shaft Plate Right: Hip Baron 02.32015.010 / Implanted: Qty: 1 on 04/16/2014 by Aly Garcia MD at [facility] / Tibial Insert Morral X Small 16mm Depuy #1986-- - [id number] Right: Leg Depuy Synthes 10/25/2017 / Implanted: Qty: 1 on 09/24/2014 by Butch Maldonado MD at [facility] / [id number] Femoral Comp Lps Distal Radius X Small Right Depuy #1986-- - [id number] Right: Leg Depuy Synthes 06/26/2019 / Implanted: Qty: 1 on 09/24/2014 by Butch Maldonado MD at [facility] / [id number] Left Trochanteric Antegrade Nail 10mm X 38cm Left: Leg ith & Nephew 07/19/2027 [id number] / Implanted: Qty: 1 on 11/23/2019 by Shikha Remy MD at [facility] NA / [id number] Plate Bone Locking 342mml Holex10 Mace & Nephew [id number] / Implanted: Qty: 1 on 11/23/2019 by Shikha Remy MD at [facility] / documented as of this encounter Procedures Procedure Name Priority Date/Time Associated Comments Diagnosis VITAMIN D, 25-OH Routine 11/24/2019 4:29 Results for this AM CDT procedure are i n the results section. PROFILE / Routine 11/24/2019 4:29 Results for this HEMOGRAM AM CDT procedure are i n the results section. BASIC METABOLIC Routine 11/24/2019 4:29 Results for this PANEL (NA, K, CL, AM CDT procedure are in CO2, GLUCOSE, the results BUN, CREATININE, section. CA) XR FEMUR 2 VW STAT 11/23/2019 7:40 Closed displaced Result s for this LEFT PM CDT oblique fracture procedure a re in of shaft of left the results femur, initial section. encounter XR CHEST 1 VW Routine 11/23/2019 7:40 Encounter for Results f or this PM CDT central line procedure are i n placement the results section. FL TIME OR STAT 11/23/2019 6:32 Closed displaced Results for this (NON-REPORTABLE) PM CDT oblique fracture procedu re are in of shaft of left the results femur, initial section. encounter FEMUR ORIF Level 4 (within 11/23/2019 2:32 Closed displaced 0-5 days) PM CDT oblique fracture of shaft of left femur, initial encounter Special Needs Vascular (surfboard) bed. C- arm FEMUR INTRAMEDULLARY Level 4 (within 11/23/2019 2:32 PM Closed dis placed NAILING 0-5 days) CDT oblique fracture of shaft of left femur, initial encounter Special Needs Vascular (surfboard) bed. C- arm ECHO ROUTINE W/DOPPLER STAT 11/23/2019 8:53 AM Closed disp laced COLOR CDT oblique fracture of shaft of left femur, initial encounter XR KNEE <3 VW LEFT STAT 11/22/2019 6:04 PM Closed displace d Results for this CDT oblique fracture procedure a re in of shaft of left the results femur, initial section. encounter EKG-12 LEAD Routine 11/22/2019 5:[address] FEMUR LEFT WO STAT 11/22/2019 4:49 PM Closed displaced Results for this CONTRAST CDT oblique fracture procedure a re in of shaft of left the results femur, initial section. encounter HB ABO GROUPING STAT 11/22/2019 4:20 PM Resul ts for this CDT procedure are i n the results section. URINALYSIS STAT 11/22/2019 3:56 PM Results for this CDT procedure are i n the results section. XR KNEE <3 VW LEFT STAT 11/22/2019 3:32 PM Closed displace d Results for this CDT oblique fracture procedure a re in of shaft of left the results femur, initial section. encounter XR HIPS 2 VW LEFT STAT 11/22/2019 3:32 PM Closed displaced Results for this CDT oblique fracture procedure a re in of shaft of left the results femur, initial section. encounter XR FEMUR 2 VW LEFT STAT 11/22/2019 3:32 PM Closed displace d Results for this CDT oblique fracture procedure a re in of shaft of left the results femur, initial section. encounter XR CHEST 1 VW STAT 11/22/2019 3:32 PM Closed displaced Res ults for this CDT oblique fracture procedure a re in of shaft of left the results femur, initial section. encounter EKG-12 LEAD Routine 11/22/2019 2:43 PM CDT HOSPITAL ADMISSION Routine 11/22/2019 12:01 AM CDT EMERGENCY SERVICES Routine 11/22/2019 12:01 AM AGREEMENTS AND CDT AUTHORIZATIONS EMERGENCY DEPARTMENT Routine 11/22/2019 12:01 AM DOCUMENTS CDT documented in this encounter Results PROFILE / HEMOGRAM (11/24/2019 4:29 AM CDT) Pathologist Sig nature WBC 12.88 (H) 4.30 - 11.10 [facility] 10*3/L SERVICES RBC 3.58 (L) 3.93 - 5.25 [facility] 10*6/L SERVICES HGB 11.4 (L) 11.6 - 15.0 g/dL [facility] HCT 34.0 (L) 35.7 - 45.2 % [facility] MCH 31.8 25.9 - 32.8 pg [facility] MCV 95.0 80.6 - 95.5 fL [facility] MCHC 33.5 31.6 - 35.1 g/dL [facility] PLT 211 166 - 358 10*3/L [facility] MPV 12.3 9.5 - 12.9 fL [facility] RDW-CV 14.4 12.0 - 15.5 % [facility] RDW-SD 50.2 (H) 39.0 - 49.9 fL [facility] NRBC x10^3 <0.01 10*3/L [facility] NRBC/100 WBC 0.0 0.0 - 10.0 /100 [facility] WBCs SERVICES IPF % [facility] Specimen Blood - ARM, LEFT Performing Organization Address City/State/Zipcode Phone Number [facility] CLIA: [id number], [address] [place], [place] [address] [facility] BASIC METABOLIC PANEL (NA, K, CL, CO2, GLUCOSE, BUN, CREATININE, CA) (11/24/2019 4:29 AM CDT) Pathologist Sig nature NA 133 (L) 135 - 145 [facility] mmol/L SERVICES K 4.4 3.5 - 5.0 [facility] mmol/L SERVICES CL 104 98 - 108 mmol/L [facility] SERVICES CO2 TOTAL 24 23 - 31 mmol/L [facility] SERVICES AGAP 5 2 - 16 [facility] SERVICES BUN 15 7 - 23 mg/dL [facility] SERVICES GLUCOSE 178 (H) 70 - 110 mg/dL [facility] SERVICES CREATININE 0.63 0.50 - 1.04 [facility] mg/dL SERVICES CALCIUM 7.9 (L) 8.6 - 10.6 [facility] mg/dL SERVICES eGFR Calculation 94.0 mL/min/1.73m2 [facility] (Non- SERVICES English) eGFR Calculation 113.9 mL/min/1.73m2 [facility] () SERVICES Specimen Blood - ARM, LEFT Narrative Performed At [facility] of Glomerular Filtration Rate (GFR) and St aging [facility] SERVICES of Kidney Disease* + + +------- ------ + | GFR (mL/min/1.73 m2) | With Kidney Damage | Wi thout Kidney Damage + + +------- ------ + | >90 | Stage one | Normal + + +------- ------ + | 60-89 | Stage two | Decreased GFR + + +------- ------ + | 30-59 | Stage three | Stage three + + +------- ------ + | 15-29 | Stage four | Stage four + + +------- ------ + | <15 (or dialysis) | Stage five | Stage five + + +------- ------ + *Each stage assumes the associated GFR level has been in effect for at least three months. Stages 1 to 5, wit h or without kidney disease, indicate chronic kidney disease. Notes: Determination of stages one and two (with eGFR >59mL/min/1.73 m2) requires estimation of kidney damag e for at least three months as defined by structural or func tional abnormalities of the kidney, manifested by either: Pathological abnormalities or Markers of kidney damage (including abnormalities in the composition of the blo od or urine or abnormalities in imaging tests) . Performing Organization Address City/State/[facility] Phone Number [facility] CLIA: [id number], [address] [place] [phone] [facility] VITAMIN D, 25-OH (11/24/2019 4:29 AM CDT) Pathologist Sig nature VIT D 25OH <13 (L) 25 - 80 ng/mL [facility] Specimen Blood - ARM, LEFT Narrative Performed At Deficiency: <20 ng/mL [facility] Insufficiency: 20-24 ng/mL Optimal: 25-80 ng/mL Performing Organization Address City/State/Zipcode Phone Number [facility] CLIA: [id number], [address] [place] [phone] [facility] XR FEMUR 2 VW LEFT (11/23/2019 7:40 PM CDT) Specimen Impressions Performed At PACS/VR/DOSE Status post distal femoral fracture fixa tion. Narrative Performed At EXAM: PACS/VR/DOSE XR FEMUR 2 VW LEFT HISTORY: post op COMPARISON: 11/22/2019 FINDINGS: Imaging of the left femur demonstrates i nterval intramedullary nail and lateral plate fixation hardware utilized to secure an anatomically aligned distal femoral diaphyseal fracture. The mid and distal fixation plate is slightly elevated from the cortex. Overl geoffrey soft tissue swelling, gas, skin hua are seen. Procedure Note [facility], [facility]iant Results Inft User - 2019 7:59 PM CDT EXAM: XR FEMUR 2 VW LEFT HISTORY: post op COMPARISON: 11/22/2019 FINDINGS: Imaging of the left femur demonstrates i nterval intramedullary nail and lateral plate fixation hardware utilized to secure an anatomically aligned distal femoral diaphyseal fracture. The mid and distal fixation plate is slightly elevated from the cortex. Overl geoffrey soft tissue swelling, gas, skin hua are seen. IMPRESSION Status post distal femoral fracture fixa tion. Performing Organization Address City/[facility] Phone Number PACS/VR/DOSE XR CHEST 1 VW (11/23/2019 7:40 PM CDT) Specimen Narrative Performed At EXAM: XR CHEST 1 VW PACS/VR/DOSE HISTORY: central line placement COMPARISON: None. FINDINGS: The tip of the vascular access catheter introduced on the left just enters the brachiocephalic vein. The heart is s lightly enlarged to the left, unchanged. Hilar vascular congestion is present with mild interstitial edema in the poorly expanded lungs. Smal l pleural effusions blunt the costophrenic angles. Procedure Note [facility], [facility]iant Results Inft User - 2019 8:07 AM CDT EXAM: XR CHEST 1 VW HISTORY: central line placement COMPARISON: None. FINDINGS: The tip of the vascular access catheter introduced on the left just enters the brachiocephalic vein. The heart is s lightly enlarged to the left, unchanged. Hilar vascular congestion is present with mild interstitial edema in the poorly expanded lungs. Smal l pleural effusions blunt the costophrenic angles. Performing Organization Address City/State/Zipcode Phone Number PACS/VR/DOSE FL TIME OR (NON-REPORTABLE) (11/23/2019 6:32 PM CDT) Specimen Narrative Performed At These images do not require a Radiology diagnostic rep ort. PACS Performing Organization Address City/State[facility] Phone Number PACS XR KNEE <3 VW LEFT (11/22/2019 6:04 PM CDT) Specimen Impressions Performed At PACS/VR/DOSE Distracted distal femoral diaphyseal sub acute fracture. Stable total knee arthroplasty. Preliminary Report Dictated by Resident: Tito Cheney I, Raghavendra Zapata MD., have reviewed this study and a gree with the above report. Narrative Performed At EXAM: XR KNEE <3 VW LEFT PACS/VR/DOSE HISTORY: fx 1 view, true lateral. Will come assist whe n ready. [phone] COMPARISON: XR KNEE <3 VW LEFT, 0.. FINDINGS: Crosstable radiographs of the left knee demonstrate a partially visualized oblique subacute fracture through the di stal femoral diaphysis with posterior distraction of the distal frag ment and craniocaudal foreshortening. Degree of foreshortening is limited as out of osywc-ca-zeku superiorly. Postsurgical changes of tota l knee arthroplasty. A slightly radiopaque pin projects over the distal femur and proximal tibia likely external to patient. Procedure Note [facility], [facility] Results Inft User - 2019 9:02 PM CDT EXAM: XR KNEE <3 VW LEFT HISTORY: fx 1 view, true lateral. Will c ome assist when ready. [phone] COMPARISON: XR KNEE <3 VW LEFT, 0.. FINDINGS: Crosstable radiographs of the left knee demonstrate a partially visualized oblique subacute fracture through the di stal femoral diaphysis with posterior distraction of the distal frag ment and craniocaudal foreshortening. Degree of foreshortening is limited as out of cttis-gk-swhg superiorly. Postsurgical changes of tota l knee arthroplasty. A slightly radiopaque pin projects over the distal femur and proximal tibia likely external to patient. IMPRESSION Distracted distal femoral diaphyseal sub acute fracture. Stable total knee arthroplasty. Preliminary Report Dictated by Resident: Tito Cheney I, Raghavendra Zapata MD., have reviewed th is study and agree with the above report. Performing Organization Address City/State/Zipcode Phone Number PACS/VR/DOSE CT FEMUR LEFT WO CONTRAST (11/22/2019 4:49 PM CDT) Specimen Impressions Performed At PACS/VR/DOSE Distracted oblique subacute distal femor al diaphyseal fracture with mild swelling. Total knee arthroplasty with patellar im plant loosening. Severe left hip osteoarthrosis. No lytic or sclerotic lesion. Preliminary Report Dictated by Resident: Adele Vargas I, Raghavendra Zapata MD., have reviewed this study and a ninoska with the above report. Narrative Performed At EXAM: CT FEMUR LEFT WO CONTRAST PACS/VR/DOSE HISTORY: Fracture, femur R/o pathologic fx, and for operative planning COMPARISON: Same day radiographs 11/22/19. TECHNIQUE: Contiguous CT acquisition of the femur was performed with reconstructed 5 mm slices without admini stration of IV contrast. Multiplanar reformatted images were obta ined. FINDINGS: BONE AND JOINT: A displaced oblique fracture through the distal femora l diaphysis is seen with anteromedial distraction of the distal femoral fr acture fragment. The distal femoral fracture fragment is posteriorly displa forest by approximately one shaft width diameter with at least 2 .5 cm craniocaudal overriding. Minimal bone resorption and remodeling is seen along t he fracture margins. Paralleling perihardware lucency is seen about the patellar implant of total knee arthroplasty changes consistent with loosen ing. Severe superior hip joint space narrowing with sxrw-ms-vdnt contact, s ubchondral sclerosis, osteophyte formation and degenerative cystic changes a re seen in the left hip joint. Ghost tracks are noted through the dista l femoral diaphysis. No lytic or sclerotic osseous lesions ar e detected. SOFT TISSUES: There is focal swelling along the lateral margin of th e fracture bed within the musculature and subcutaneous fat. No vascular injury is appreciated. Scatt ered arterial vascular calcifications are present. Procedure Note [facility], [facility]iant Results Inft User - 2019 6:29 PM CDT EXAM: CT FEMUR LEFT WO CONTRAST HISTORY: Fracture, femur R/o pathologic fx, and for operative planning COMPARISON: Same day radiographs 11/22/19. TECHNIQUE: Contiguous CT acquisition of the femur was performed with reconstructed 5 mm slices without admini stration of IV contrast. Multiplanar reformatted images were obta ined. FINDINGS: BONE AND JOINT: A displaced oblique fracture through the distal femoral diaphysis is seen with anteromedial distraction of the dis sandra femoral fracture fragment. The distal femoral fracture fragment is post eriorly displaced by approximately one shaft width diameter with at least 2 .5 cm craniocaudal overriding. Minimal bone resorption and remodeling i s seen along the fracture margins. Paralleling perihardware lucency is seen about the patellar implant of total knee arthroplasty changes consiste nt with loosening. Severe superior hip joint space narrowing with bone-on-b one contact, subchondral sclerosis, osteophyte formation and degenerative cy stic changes are seen in the left hip joint. Ghost tracks are noted through the dista l femoral diaphysis. No lytic or sclerotic osseous lesions ar e detected. SOFT TISSUES: There is focal swelling along the latera l margin of the fracture bed within the musculature and subcutaneous fat. No vascular injury is appreciated. Scatt ered arterial vascular calcifications are present. IMPRESSION Distracted oblique subacute distal femor al diaphyseal fracture with mild swelling. Total knee arthroplasty with patellar im plant loosening. Severe left hip osteoarthrosis. No lytic or sclerotic lesion. Preliminary Report Dictated by Resident: Adele Vargas I, Raghavendra Zapata MD., have reviewed is study and agree with the above report. Performing Organization Address City/State/Zipcode Phone Number PACS/VR/DOSE Type and Screen - ONCE STAT (11/22/2019 4:20 PM CDT) Pathologist Sig nature ABO & RH B POSITIVE LAB Comment: Performed at [facility] - [facility] Blood [place] [address] Toll Free: [phone] CLIA No. [id number] IAT Negative LAB Comment: Performed at [facility] - [facility] Blood [place] [address] Toll Free: [phone] CLIA No. [id number] Specimen Blood - VENOUS Performing Organization Address City/State/Zipcode Phone Number BLD LAB URINALYSIS (11/22/2019 3:56 PM CDT) Pathologist Sig nature APPEARANCE Clear Clear [facility] COLOR Yellow Yellow [facility] PH 5.0 4.8 - 8.0 [facility] SP GRAVITY 1.015 1.003 - 1.030 [facility] GLU U QUAL Normal Normal [facility] BLOOD 2+ (A) Negative [facility] KETONES Negative Negative [facility] PROTEIN 100 mg/dL (A) Negative [facility] UROBILIN Normal Normal [facility] BILIRUBIN Negative Negative [facility] NITRITE Negative Negative [facility] LEUK ROXY Negative Negative [facility] RBC/HPF 6 (H) 0 - 3 HPF [facility] WBC/HPF 4 0 - 5 HPF [facility] BACTERIA Negative Negative [facility] MUCOUS Slight (A) Negative LPF [facility] SQ EPITH 1 <=2 HPF [facility] HYAL CAST 4 (H) <=2 LPF [facility] GRAN CASTS 2 (H) <=1 LPF [facility] Specimen Urine - URINE, CLEAN CATCH Performing Organization Address City/State/Zipcode Phone Number [facility] CLIA: [id number], [address] [place], [place] [address] [facility] XR CHEST 1 VW (11/22/2019 3:32 PM CDT) Specimen Impressions Performed At PACS/VR/DOSE Cardiomegaly with mild interstitial pulm onary edema. Preliminary Report Dictated by Resident: Adele Vargas I, Viridiana Salcedo MD., have reviewed thi s study and agree with the above report. Narrative Performed At XR CHEST 1 VW PACS/VR/DOSE Comparison: 06/15/2018 History: Surgery Findings: The lungs are under inflated with pulmonary vascular c ongestion. No pleural effusion, focal consolidation, or pneumo thorax is identified. The cardiomediastinal silhouette is enlarged. The thor acic aorta is ectatic and atherosclerotic calcifications are s een in the aortic arc.. No acute osseous abnormality is present. Degenerative changes are seen in the acromial clavicular and glenohumeral joints. Mild spondylotic changes are seen in the thoracolumbar spine. Procedure Note [facility], [facility] Results In[facility] User - 2019 3:50 PM CDT XR CHEST 1 VW Comparison: 06/15/2018 History: Surgery Findings: The lungs are under inflated with pulmon tanisha vascular congestion. No pleural effusion, focal consolidation, or pneumo thorax is identified. The cardiomediastinal silhouette is enla rged. The thoracic aorta is ectatic and atherosclerotic calcifications are s een in the aortic arc.. No acute osseous abnormality is present. Degenerative changes are seen in the acromial clavicular and glenohumeral joints. Mild spondylotic changes are seen in the thoracolumbar spine. IMPRESSION Cardiomegaly with mild interstitial pulm onary edema. Preliminary Report Dictated by Resident: Adele Vargas I, Viridiana Salcedo MD., have reviewed this study and agree with the above report. Performing Organization Address City/State/Zipcode Phone Number PACS/VR/DOSE XR HIPS 2 VW LEFT (11/22/2019 3:32 PM CDT) Specimen Impressions Performed At PACS/VR/DOSE Distracted distal femoral diaphyseal sub acute fracture. Severe left hip osteoarthrosis. Stable total knee arthroplasty. Hardware loosening at the level of the r ight proximal femur. Preliminary Report Dictated by Resident: Adele Vargas I, Raghavendra Zapata MD., have reviewed this study and a gree with the above report. Narrative Performed At EXAM:XR HIPS 2 VW LEFT PACS/VR/DOSE EXAM: XR FEMUR 2 VW LEFT EXAM: XR KNEE <3 VW LEFT HISTORY: fracture COMPARISON: Radiographs performed the same day earlier , pelvic radiograph dated 02/23/2018 FINDINGS: Radiographs of the left hip, femur and knee demonstrat e an oblique subacute fracture through the distal femoral diap hysis with medial posterior distraction of the distal fragment with and approximat abi 6 cm craniocaudal overriding. Severe left hip joint space narrowing with tmko-gg-vraa contact, marginal osteophytosis and degenerative cysti c changes. Partially visualized right proximal femoral plate and screw fixation hardware is noted with proximal screw retraction approximately 6 m m. Chronic cortical fragmentation is redemonstrated along the left iliac c rest. Plate fixation hardware with progressive partial backin g out of the proximal fixation plate and screw are seen about the proxi mal right femur. Postsurgical changes of prior total knee arthroplasty with preservation of prosthetic joint space and alignment. No suspicious paralleling periprosthetic lucencies are seen. Lumbosacral junction spondylosis and fac et arthropathy are seen. Severe osteopenia. Procedure Note [facility], Radiant Results Inft User - 2019 4:48 PM CDT EXAM:XR HIPS 2 VW LEFT EXAM: XR FEMUR 2 VW LEFT EXAM: XR KNEE <3 VW LEFT HISTORY: fracture COMPARISON: Radiographs performed the sa me day earlier, pelvic radiograph dated 02/23/2018 FINDINGS: Radiographs of the left hip, femur and k nee demonstrate an oblique subacute fracture through the distal femoral diap hysis with medial posterior distraction of the distal fragment with and approximately 6 cm craniocaudal overriding. Severe left hip joint space narrowing with wzej-bb-lnna contact, marginal osteophytosis and dege nerative cystic changes. Partially visualized right proximal femoral plate and screw fixation hardware is noted with proximal screw retraction alexx roximately 6 mm. Chronic cortical fragmentation is redemonstrated along th e left iliac crest. Plate fixation hardware with progressive partial backin g out of the proximal fixation plate and screw are seen about the proxi mal right femur. Postsurgical changes of prior total knee arthroplasty with preservation of prosthetic joint space and alignment. No suspicious paralleling periprosthetic lucencies are seen. Lumbosacral junction spondylosis and fac et arthropathy are seen. Severe osteopenia. IMPRESSION Distracted distal femoral diaphyseal sub acute fracture. Severe left hip osteoarthrosis. Stable total knee arthroplasty. Hardware loosening at the level of the r ight proximal femur. Preliminary Report Dictated by Resident: Raghavendra Ram MD., have reviewed [facility] study and agree with the above report. Performing Organization Address City/State/Zipcode Phone Number PACS/VR/DOSE XR FEMUR 2 VW LEFT (11/22/2019 3:32 PM CDT) Specimen Impressions Performed At PACS/VR/DOSE Distracted distal femoral diaphyseal sub acute fracture. Severe left hip osteoarthrosis. Stable total knee arthroplasty. Hardware loosening at the level of the r ight proximal femur. Preliminary Report Dictated by Resident: Raghavendra Ram MD., have reviewed this study and a gree with the above report. Narrative Performed At EXAM:XR HIPS 2 VW LEFT PACS/VR/DOSE EXAM: XR FEMUR 2 VW LEFT EXAM: XR KNEE <3 VW LEFT HISTORY: fracture COMPARISON: Radiographs performed the same day earlier , pelvic radiograph dated 02/23/2018 FINDINGS: Radiographs of the left hip, femur and knee demonstrat e an oblique subacute fracture through the distal femoral diap hysis with medial posterior distraction of the distal fragment with and approximat abi 6 cm craniocaudal overriding. Severe left hip joint space narrowing with ovpc-mq-iono contact, marginal osteophytosis and degenerative cysti c changes. Partially visualized right proximal femoral plate and screw fixation hardware is noted with proximal screw retraction approximately 6 m m. Chronic cortical fragmentation is redemonstrated along the left iliac c rest. Plate fixation hardware with progressive partial backin g out of the proximal fixation plate and screw are seen about the proxi mal right femur. Postsurgical changes of prior total knee arthroplasty with preservation of prosthetic joint space and alignment. No suspicious paralleling periprosthetic lucencies are seen. Lumbosacral junction spondylosis and fac et arthropathy are seen. Severe osteopenia. Procedure Note [facility], Radiant Results Inft User - 2019 4:48 PM CDT EXAM:XR HIPS 2 VW LEFT EXAM: XR FEMUR 2 VW LEFT EXAM: XR KNEE <3 VW LEFT HISTORY: fracture COMPARISON: Radiographs performed the sa me day earlier, pelvic radiograph dated 02/23/2018 FINDINGS: Radiographs of the left hip, femur and k nee demonstrate an oblique subacute fracture through the distal femoral diap hysis with medial posterior distraction of the distal fragment with and approximately 6 cm craniocaudal overriding. Severe left hip joint space narrowing with ybgt-qp-oadp contact, marginal osteophytosis and dege nerative cystic changes. Partially visualized right proximal femoral plate and screw fixation hardware is noted with proximal screw retraction alexx roximately 6 mm. Chronic cortical fragmentation is redemonstrated along th e left iliac crest. Plate fixation hardware with progressive partial backin g out of the proximal fixation plate and screw are seen about the proxi mal right femur. Postsurgical changes of prior total knee arthroplasty with preservation of prosthetic joint space and alignment. No suspicious paralleling periprosthetic lucencies are seen. Lumbosacral junction spondylosis and fac et arthropathy are seen. Severe osteopenia. IMPRESSION Distracted distal femoral diaphyseal sub acute fracture. Severe left hip osteoarthrosis. Stable total knee arthroplasty. Hardware loosening at the level of the r ight proximal femur. Preliminary Report Dictated by Resident: Raghavendra Ram MD., have reviewed [facility] study and agree with the above report. Performing Organization Address City/State/Zipcode Phone Number PACS/VR/DOSE XR KNEE <3 VW LEFT (11/22/2019 3:32 PM CDT) Specimen Impressions Performed At PACS/VR/DOSE Distracted distal femoral diaphyseal sub acute fracture. Severe left hip osteoarthrosis. Stable total knee arthroplasty. Hardware loosening at the level of the r ight proximal femur. Preliminary Report Dictated by Resident: Adele Vargas I, Raghavendra Zapata MD., have reviewed this study and a gree with the above report. Narrative Performed At EXAM:XR HIPS 2 VW LEFT PACS/VR/DOSE EXAM: XR FEMUR 2 VW LEFT EXAM: XR KNEE <3 VW LEFT HISTORY: fracture COMPARISON: Radiographs performed the same day earlier , pelvic radiograph dated 02/23/2018 FINDINGS: Radiographs of the left hip, femur and knee demonstrat e an oblique subacute fracture through the distal femoral diap hysis with medial posterior distraction of the distal fragment with and approximat abi 6 cm craniocaudal overriding. Severe left hip joint space narrowing with otoo-wi-roxh contact, marginal osteophytosis and degenerative cysti c changes. Partially visualized right proximal femoral plate and screw fixation hardware is noted with proximal screw retraction approximately 6 m m. Chronic cortical fragmentation is redemonstrated along the left iliac c rest. Plate fixation hardware with progressive partial backin g out of the proximal fixation plate and screw are seen about the proxi mal right femur. Postsurgical changes of prior total knee arthroplasty with preservation of prosthetic joint space and alignment. No suspicious paralleling periprosthetic lucencies are seen. Lumbosacral junction spondylosis and fac et arthropathy are seen. Severe osteopenia. Procedure Note [facility], Radiant Results Inft User - 2019 4:48 PM CDT EXAM:XR HIPS 2 VW LEFT EXAM: XR FEMUR 2 VW LEFT EXAM: XR KNEE <3 VW LEFT HISTORY: fracture COMPARISON: Radiographs performed the sa me day earlier, pelvic radiograph dated 02/23/2018 FINDINGS: Radiographs of the left hip, femur and k nee demonstrate an oblique subacute fracture through the distal femoral diap hysis with medial posterior distraction of the distal fragment with and approximately 6 cm craniocaudal overriding. Severe left hip joint space narrowing with blds-wa-awca contact, marginal osteophytosis and dege nerative cystic changes. Partially visualized right proximal femoral plate and screw fixation hardware is noted with proximal screw retraction alexx roximately 6 mm. Chronic cortical fragmentation is redemonstrated along th e left iliac crest. Plate fixation hardware with progressive partial backin g out of the proximal fixation plate and screw are seen about the proxi mal right femur. Postsurgical changes of prior total knee arthroplasty with preservation of prosthetic joint space and alignment. No suspicious paralleling periprosthetic lucencies are seen. Lumbosacral junction spondylosis and fac et arthropathy are seen. Severe osteopenia. IMPRESSION Distracted distal femoral diaphyseal sub acute fracture. Severe left hip osteoarthrosis. Stable total knee arthroplasty. Hardware loosening at the level of the r ight proximal femur. Preliminary Report Dictated by Resident: Raghavendra Ram MD., have reviewed is study and agree with the above report. Performing Organization Address City/State/Zipcode Phone Number PACS/VR/DOSE documented in this encounter Visit Diagnoses Diagnosis Closed displaced oblique fracture of sha ft of left femur, initial encounter - Primary Encounter for central line placement Fitting and adjustment of vascular amina ter Fracture, femur Closed fracture of unspecified part of f emur Age-related osteoporosis with current pa thological fracture with routine healing Aftercare for healing pathologic fractur e of other bone COPD mixed type Chronic airway obstruction, not elsewher e classified SHAMIR on CPAP Obstructive sleep apnea (adult) (pediatr ic) Current chronic use of systemic steroids Mixed hyperlipidemia Gastroesophageal reflux disease without esophagitis Esophageal reflux Vitamin D deficiency Unspecified vitamin D deficiency documented in this encounter Administered Medications Medication Order MAR Action Action Date Dose Rate Site atorvastatin (LIPITOR) tablet 10 Given 11/27/2019 8:18 PM CDT 1 0 mg mg 10 mg, Oral, QHS, First dose on Wed11/22/19 at 2100, Until Discontinued, Routine Given 11/26/2019 8:06 PM CDT 10 mg Given 11/25/2019 7:13 PM CDT 10 mg docusate (COLACE) capsule 100 mg Given 11/25/2019 8:00 AM CDT 100 mg 100 mg, Oral, Q12H, First dose on Wed11/22/19 at 2000, Until Discontinued, Routine Given 11/24/2019 9:25 PM CDT 100 mg Given 11/24/2019 8:19 AM CDT 100 mg doxycycline hyclate (Vibramycin) capsule 100 Given 8:23 AM CDT 100 mg mg 100 mg, Oral, DAILY, First dose on Wed11/24/19 at 0900, Until Discontinued, EDGAR, Reason for Anti-Infective: Empiric Non-Surgical Prophylaxis, Duration of therapy: 7 days, Specific indication: Chronic suppression Given 11/27/2019 8:19 AM CDT 100 mg Given 11/26/2019 8:50 AM CDT 100 mg enoxaparin (LOVENOX) injection 30 mg Given 11/28/2019 7:39 AM CDT 30 mg Abdo men-SC 30 mg, Subcutaneous, Q12H, First dose on Wed11/23/19 at 2000, Until Discontinued, Routine Given 11/27/2019 8:18 PM CDT 30 mg Abdo men-SC Given 11/27/2019 8:18 AM CDT 30 mg Abdo men-SC ergocalciferol (vitamin d2) Given 11/25/2019 12:26 AM CDT 50,000 Units (CALCIFEROL) capsule 50,000 Units 50,000 Units, Oral, QWEEKLY, 6 doses, First dose on 11/25/19 at 0000, Last dose on 12/30/19 at 0000, Routine Fluticasone-Salmeterol (ADVAIR) 100-50 Given 11/28/2019 7:21 AM CDT 1 Puff mcg/dose inhalation disk 1 Puff 1 Puff, Inhalation, Q12H, First dose on Wed11/23/19 at 2000, Until Discontinued, Routine Given 11/27/2019 9:40 PM CDT 1 Puff Given 11/27/2019 8:42 AM CDT 1 Puff gabapentin (NEURONTIN) capsule 300 mg Given 11/28/2019 2:48 PM CDT 300 mg 300 mg, Oral, TID, First dose on Wed11/22/19 at 2000, Until Discontinued, Routine Given 11/28/2019 7:39 AM CDT 300 mg Given 11/27/2019 8:18 PM CDT 300 mg HYDROcodone-acetaminophen (NORCO 5) 5-325 Given 2019 12:09 PM CDT 1 tablet mg tablet 1 tablet 1 tablet, Oral, Q6HPRN, Starting Wed11/22/19 at 1719, Until Discontinued, Routine, Pain (scale 4-6) Given 11/27/2019 9:12 PM CDT 1 tablet Given 11/27/2019 11:56 AM CDT 1 tablet ipratropium-albuterol (DUONEB) 0.5 mg-3 mg(2.5 mg base)/3 mL nebulizer solution 3 mL 3 mL, Inhalation, Q6HPRN, Starting Apryl 11/23/19 at 1126 , Until Discontinued, Routine, Wheezing morpHINE injection 4 mg Given 11/28/2019 2:59 AM CDT 4 mg 4 mg, Slow IV Push, Q4HPRN, Starting Wed11/22/19 at 1719, Until Discontinued, Routine, For pain unrelieved by oral medications, or if patient is unable to tolerate oral pain medication. Given 11/24/2019 5:16 AM CDT 4 mg Given 11/22/2019 8:00 PM CDT 4 mg ondansetron (ZOFRAN (PF)) injection 4 mg Given 11/26/2019 9:39 AM CDT 4 mg 4 mg, Slow IV Push, Q6HPRN, Starting Wed11/22/19 at 1719, Until Discontinued, Routine, Nausea and Vomiting (N/V) pantoprazole (PROTONIX) EC tablet 40 mg Given 11/28/2019 7:39 AM CDT 40 mg 40 mg, Oral, DAILY, First dose on Wed11/27/19 at 0115, Until Discontinued, Routine Given 11/27/2019 8:19 AM CDT 40 mg Given 11/27/2019 2:09 AM CDT 40 mg Polyethylene Glycol 3350 (MIRALAX) powde r 17 g Given 11/25/2019 8:00 AM CDT 17 g 17 g, Oral, BID, First dose on Wed11/23/19 at 2000, Until Discontinued, Routine Given 11/24/2019 9:25 PM CDT 17 g Given 11/24/2019 8:00 AM CDT 17 g predniSONE (DELTASONE) tablet 10 mg Given 11/28/2019 7:39 AM CDT 10 mg 10 mg, Oral, DAILY, First dose on Wed11/24/19 at 0900, Until Discontinued, Routine Given 11/27/2019 8:19 AM CDT 10 mg Given 11/26/2019 8:50 AM CDT 10 mg traMADol (ULTRAM) tablet 50 mg Given 11/26/2019 8:50 AM CDT 50 mg 50 mg, Oral, Q4HPRN, Starting Wed11/22/19 at 1719, Until Discontinued, Routine, Pain (scale 7-10) Given 11/25/2019 11:10 PM CDT 50 mg Medication Order MAR Action Action Date Dose Rate Site ceFAZolin (ANCEF) 3,000 mg in Given 11/24/2019 3:04 PM CDT 3,00 0 mg NaCl 0.9% (NS) 100 mL piggyback 3,000 mg, IV Piggyback, Q8H ABX, 3 doses, First dose on Wed11/23/19 at 2000, Last dose on Wed11/24/19 at 1200, 100 mL, Reason for Anti-Infective: Surgical Prophylaxis, Surgical Prophylaxis: Orthopaedic, Duration of therapy: within 24 hours of surgery Given 11/24/2019 8:18 AM CDT 3,000 mg Given 11/23/2019 11:09 PM CDT 3,000 mg doxycycline hyclate (Vibramycin) capsule 100 Given 10:35 AM CDT 100 mg mg 100 mg, Oral, DAILY, First dose on Apryl 11/23/19 at 0900, Until Discontinued, EDGAR, Reason for Anti-Infective: Empiric Non-Surgical Prophylaxis, Duration of therapy: 7 days FENTanyl PF (SUBLIMAZE (PF)) injection 25 Given 11/23/2019 7:40 PM CDT 25 mcg mcg 25 mcg, Slow IV Push, Q5MIN PRN, 4 doses, Starting Apryl 11/23/19 at 1856, Until Wed11/23/19 at 1940, Routine, Pain (scale 4-6), PACU Given 11/23/2019 7:30 PM CDT 25 mcg Given 11/23/2019 7:21 PM CDT 25 mcg FENTanyl PF (SUBLIMAZE (PF)) injection 50 Given 11/22/2019 6:29 PM CDT 50 mcg mcg 50 mcg, Slow IV Push, ONCE, 1 dose, Wed11/22/19 at 1915, Routine HYDROmorphone (DILAUDID) injection 0.2 m g Given 11/23/2019 9:15 PM CDT 0.2 mg 0.2 mg, Slow IV Push, Q5MIN PRN, 10 doses, Starting Apryl 11/23/19 at 1856, Until Apryl 11/23/19 at 2226, Routine, Pain (scale 7-10), PACU, Use approved by (Faculty): PACU USE -ANESTHESIA SERVICE-HYDROMORPHONE INJECTIONS Given 11/23/2019 8:40 PM CDT 0.2 mg morpHINE injection 4 mg Given 11/22/2019 4:21 PM CDT 4 mg 4 mg, Slow IV Push, ONCE, 1 dose, Wed20 at 1700, Routine predniSONE (DELTASONE) tablet 10 mg Given 11/24/2019 12:18 PM CDT 10 mg 10 mg, Oral, ONCE, 1 dose, 11/24/19 at 0945, Routine predniSONE (DELTASONE) tablet 20 mg Given 11/23/2019 11:01 PM CDT 20 mg 20 mg, Oral, ONCE, 1 dose, Apryl 11/23/19 at 1800, Routine documented in this encounter Insurance Payer Benefit Plan / Subscriber ID Effective Phone Address T ype Group Dates MEDICARE MEDICARE PART xxxxxxxxxxx 2016-Pres [phone] Medicare A & B ent [id number] JESÚS ROBBINS [phone] SUSAN DAVIS xxxxxxxxx 2017-Pres [address] Medica id HEALTHCARE - HEALTHCARE ent [id number] MANAGED MEDICAID [place], [place] documented as of this encounter Advance Directives Type Date Recorded Patient Zoning Assistant Explanati on Advance Directives and Living 03/14/2013 10:06 AM Will Power of Curtain Cleaner 12/31/2015 1:19 PM
[2019-11-28] MEDS ORDERED: TRAZODONE 50 MG TABLET PO PRN (19:12)
[2019-11-28] MEDS: TRAMADOL HCL 50 MG TAB PO PRN (19:36)
[2019-11-28] MEDS: HYDROCODONE/APAP 5/325 MG TAB PO PRN (20:52)
[2019-11-28] MEDS: ATORVASTATIN 10 MG TAB PO SCH (20:52)
[2019-11-28] MEDS: GABAPENTIN 300 MG CAP PO SCH (20:52)
[2019-11-28 21:06] LABS: Urine Appearance CLEAR; Urine Bilirubin NEGATIVE (NEG); Urine Blood 2+ (NEG); Urine Color YELLOW; Urine Glucose NEGATIVE (NEG); Urine Protein 1+ (NEG); Urine Specific Gravity 1.015 (1.005-1.030); Urine Urobilinogen 0.2 mg/dL (0.2-1.0)
[2019-11-28 21:13] LABS: Urine Culture Reflex Order NOT NEEDED
[2019-11-28 21:14] LABS: Urine Bacteria <20 /HPF (<20)
[2019-11-28] MEDS ORDERED: DOCUSATE NA/SENNA CONC 1 TAB PO PRN (22:43)
[2019-11-29] MEDS: PANTOPRAZOLE 40MG TABLET PO SCH (06:06)
[2019-11-29] MEDS: TRAMADOL HCL 50 MG TAB PO PRN (06:16)
[2019-11-29 06:30] LABS: Absolute Lymphocytes (CBC) 2.7 K/uL (0.7-4.9); Hematocrit 28.9 % (36.0-45.0); Lymphocytes % 26.2 % (15.3-44.8); MPV 9.7 fL (7.6-11.3); RBC Red Blood Cell Count 3.07 M/uL (3.86-4.86)
[2019-11-29 07:40] LABS: Albumin 2.1 g/dL (3.4-5.0); BUN Blood Urea Nitrogen 13 mg/dL (7-18); Bicarbonate 25 mmol/L (21-32); Glucose Level 79 mg/dL (74-106); Magnesium 2.2 mg/dL (1.8-2.4); Potassium 3.7 mmol/L (3.5-5.1); Sodium Level 144 mmol/L (136-145)
[2019-11-29] MEDS: MELOXICAM 7.5 MG TAB PO SCH (09:00)
[2019-11-29] MEDS: GABAPENTIN 300 MG CAP PO SCH ×2 (09:00→20:06)
[2019-11-29] MEDS: FE SULF/FA/VIT B COMP & C TAB PO SCH (09:01)
[2019-11-29] MEDS: HYDROCODONE/APAP 5/325 MG TAB PO PRN ×3 (09:02→20:06)
[2019-11-29] MEDS: FERROUS SULFATE 325 MG TAB PO SCH (09:02)
[2019-11-29] MEDS: predniSONE 20 MG TAB PO SCH (09:02)
[2019-11-29] MEDS: DOXYCYCLINE 100 MG CAP PO SCH (09:03)
[2019-11-29] MEDS: PROMOD 30 ML DOSE PO SCH ×2 (09:05→20:07)
[2019-11-29] MEDS: ENOXAPARIN 30 MG/0.3 ML SQ SCH (09:06)
--- NOTE | 2019-11-29 13:42 | R.HP ---
FACILITY: [facility] ENCOUNTER DATE AND TIME: 11/29/2019 13:37 (CDT) MR#: [id number] NAME DESIREE CARVALHO ADDRESS: [place] [address] CITY: [place] STATE: [place]IP [id number] PHONE: DATE OF : 1950 AGE: 69 SSN# [id number] GENDER: Female DEXTERITY Right-handed MARITAL STATUS Single (Never ) RACE White PRE-HOSPITAL LIVING SETTING 01 - Home (private home/apt. board/care, assisted living, senior care, transitional living) PRE-HOSPITAL LIVING WITH Alone ENCOUNTER PHYSICIAN: Dr. Moi Barry M.D. REFERRING DOCTOR: Dr. SHIKHA PÉREZ DATE OF ADMISSION: 11/28/2019 18:45 (CDT) REFERRING FACILITY [facility] HOME TYPE AND DETAILS: Type of home: single family house # of levels in the residence: 1 # of steps within the residence: 0 # of steps to enter the residence: 0 ONSET DATE: 11/22/2019 PRIMARY DIAGNOSIS-RELATED SURGERIES: Emergency Femur (Shaft) Fracture Left Femur ORIMN with plate fixation augmentation- performed by Dr. SHIKHA PÉREZ on 11/23/2019 SECONDARY/COMORBID DIAGNOSES (TIERED): - Tier 3 Morbid (severe) obesity due to excess calories (E66.01) HISTORY OF PRESENT ILLNESS (HPI): Pt. is a 69 yo Right-handed white female. On 11/22/2019 [facility] and underwent emergency surgery for LEFT DISTAL FEMO RAL SHAFT PERIPROSTHETIC FRACTURE (Femur (Shaft) Fracture) by Dr. SHIKHA PÉREZ. Pre-morbidly, Pt. was independent/mod-I in Locomotion, Balance, Social Cognition, Transfers Control, Sphincter Control, Self-Care, and Communication; and she had good Endurance and Safety Awareness. Currently, she has deficits of Locomotion, Balance, Transfers Control, Self-Care, and Endurance. Pt. is now referred to [facility] for acute in-patient rehabilitation in order to maximize patient's functional independence in activities of daily living, strength, ROM, and mobi lity. Patient has realistic goal of being discharged at assistance level 7-Ind to reside at [facility] w ith Family/Relatives. Ms. Desiree Carvalho is a 69 year old female who prior to her fall lived at home independently alone. Ms. Carvalho was independent and active in the community, performing all of her own ADLs including driving, shopping and housekeeping. Ms. Carvalho had a fall from standing 11/22/2019 and suffered a left distal femoral shaft periprosthetic fracture. Ms. Carvalho underwent emergency left femur ORIMN with plate fixation augmentation 11/23/2019. Ms. Carvalho is now medically stable but in need of 24-hour nursing, doctor supervision and oversight while receiving active and ongoing intensive therapy (PT, OT and/or SPT). The patient is reasonably expected to participate in 3 hours of therapy a day/15 hours per week and receive care with an intensive interdisciplinary approach. MEDICATION ALLERGIES: XANAX ZINC ENVIRONMENTAL ALLERGIES: - Substance Allergies None Known - Other Allergies None Known PAST MEDICAL HISTORY: Morbid (severe) obesity due to excess calories (E66.01) asthma Chronic obstructive pulmonary disease, unspecified (J44.9) Esophageal reflux Fibromyalgia (M79.7) Hyperlipidemia, unspecified (E78.5) SHINGLES Sleep apnea FAMILY HISTORY: Family history is not contributory. SOCIAL HISTORY: - Home Living Alone REVIEW OF SYSTEMS: - Gen No Chills Fatigue No Fever - Eyes No Double Vision No itchiness - ENMT No Difficulty Swallowing - CVS No Chest Discomfort No Chest Pain Fatigue No Weight Gain - Resp No Cough No Shortness of Breath - GI Continent No Abdominal Pain Constipation No Diarrhea - Continent No Kidney Pain No Painful Urination No Urinary Urgency - MSK No Joint Pain Muscle Cramps Stiffness - Skin Itching No Rash No Suspicious Lesions - Neuro Coordination Difficulty No Difficulty with Concentration No Memory Loss No Seizures Weakness - Psych No Anxiety No Depression No HIV Exposure No Persistent Infections No Seasonal Allergies - Endo No Cold/Heat Intolerance No Excessive Hunger No Excessive Thirst No Excessive Urination PHYSICAL EXAM - Gen Alert and awake Lying in bed No apparent distress Oriented to: person, time, and place - Skin Left hip incision intact with hua. She has mild itching at incision site. Normacephalic - Eyes No abnormalities - ENMT No abnormalities - Neck No abnormalities No cervical adenopathy - CVS RRR - Chest No abnormalities - Resp Clear to auscultation - Abd Soft - GI Non distended Deferred - No abnormalities - Ext Mild left lower extremity edema. - MSK 4+/5 weakness in left lower extremity - Neuro 4/5 strength left lower extremity. - Psych No abnormalities VITAL SIGNS Temperature: 97.1 F SBP/DBP: 127/63 Pulse: 72 Resp: 16 NURSING: - Shower allowing shower - Skin care per protocol PRECAUTIONS: - Weight Bearing Precaution WBAT left LE ACTIVITIES OOB only with supervision QI SCORES: - Self-Care A. Eating 05-Setup or clean-up assistance B. Oral hygiene 05-Setup or clean-up assistance C. Toileting hygiene 03-Partial/moderate assistance E. Shower/bathe self 88-Not attempted due to medical condition or safety concerns F. Upper body dressing 03-Partial/moderate assistance G. Lower body dressing 02-Substantial/maximal assistance H. Putting on/taking off footwear 02-Substantial/maximal assistance - Mobility A. Roll left and right 04-Supervision or touching assistance B. Sit to lying 04-Supervision or touching assistance C. Lying to sitting on side of bed 04-Supervision or touching assistance D. Sit to stand 03-Partial/moderate assistance E. Chair/bbk-ni-ggyxe transfer 03-Partial/moderate assistance F. Toilet transfer 03-Partial/moderate assistance G. Car transfer 88-Not attempted due to medical condition or safety concerns I. Walk 10 feet 88-Not attempted due to medical condition or safety concerns J. Walk 50 feet with two turns 88-Not attempted due to medical condition or safety concerns K. Walk 150 feet 88-Not attempted due to medical condition or safety concerns L. Walking 10 feet on uneven surfaces 88-Not attempted due to medical condition or safety concerns M. 1 step (curb) 88-Not attempted due to medical condition or safety concerns N. 4 steps 88-Not attempted due to medical condition or safety concerns O. 12 steps 88-Not attempted due to medical condition or safety concerns P. Picking up object 88-Not attempted due to medical condition or safety concerns R. Wheel 50 feet with two turns S. Wheel 150 feet - Bladder and Bowel Bladder continence 1-Stress incontinence only Bowel continence 0-Always continent - Endurance Poor - Balance Fair - Safety Awareness Good CURRENT FUNC. DEFICITS: Self-Care, Mobility, Endurance, and Balance MEDICATIONS: - Other See attached MAR (Medication Administration Record) ASSESSMENT: Pt. is a 69 yo Right-handed white female.On 11/22/2019 she was admitted to [facility] emergency surgery for LEFT DISTAL FEMORAL SHAFT PERIPROSTHETIC FRACTURE (Femur (Shaft) Fracture) b y Dr. SHIKHA PÉREZ.Pre-morbidly, Pt. was independent/mod-I in Locomotion, Balance, Social Cognitio n, Transfers Control, Sphincter Control, Self-Care, and Communication; and she had good Endurance and Safety Awareness.Currently, she has deficits of Locomotion, Balance, Transfers Control, Self-Care, a nd Endurance.Pt. is now referred to [facility] for acute in-patient rehabilita tion in order to maximize patient's functional independence in activities of daily living, strength, ROM, and mobility.- Rehab Goal Patient has realistic goal of being discharged at assistance level 7-Ind to reside at [facility] w ith Family/Relatives. Ms. Desiree Carvalho is a 69 year old female who prior to her fall lived at home independently alone. Ms. Carvalho was independent and active in the community, performing all of her own ADLs including driving, shopping and housekeeping. Ms. Carvalho had a fall from standing 11/22/2019 and suffered a left distal femoral shaft periprosthetic fracture. Ms. Carvalho underwent emergency left femur ORIMN with plate fixation augmentation 11/23/2019. Ms. Carvalho is now medically stable but in need of 24-hour nursing, doctor supervision and oversight while receiving active and ongoing intensive therapy (PT, OT and/or SPT). The patient is reasonably expected to participate in 3 hours of therapy a day/15 hours per week and receive care with an intensive interdisciplinary approach.REHAB PLAN: - Physical Therapy Decreased range of motion - to improve, our physical therapists will perform initial evaluation of pt 's status upon admission and devise an individualized program for increasing patient's Range of Motio n. Gait dysfunction - to improve, our physical therapists will perform initial evaluation of pt's status upon admission and devise an individualized program for Gait Training, and Wheel Chair mobility Inability to transfer - to improve, our physical therapists will perform initial evaluation of pt's s tatus upon admission and devise an individualized program for Bed mobility Need for home safety evaluation - to improve, our physical therapists will perform initial evaluation of pt's status upon admission and devise an individualized program for Home Evaluation Need in caregiver upon discharge - to improve, our physical therapists will perform initial evaluatio n of pt's status upon admission and devise an individualized program for Caregiver Training New precaution - to improve, our physical therapists will perform initial evaluation of pt's status u sima admission and devise an individualized program for Patient precaution education Edema - to improve, our physical therapists will perform initial evaluation of pt's status upon admi ssion and devise an individualized program for Elevation Training, and Lymphedema Therapy Poor balance - to improve, our physical therapists will perform initial evaluation of pt's status upo n admission and devise an individualized program for Balance Training Poor endurance - to improve, our physical therapists will perform initial evaluation of pt's status u sima admission and devise an individualized program for Endurance Training Weakness - to improve, our physical therapists will perform initial evaluation of pt's status upon ad mission and devise an individualized program for Aquatic Therapy, Neuromuscular Reeducation, and Stre ngthening Achieving independence - to improve, our physical therapists will perform initial evaluation of pt's status upon admission and devise an individualized program for Community Reintegration Activities - Occupational Therapy ADL deficits - to improve, our occupation therapists will perform initial evaluation of pt's status u sima admission and devise an individualized program for Bathing, Bed mobility, Community Reintegration , Cooking, Dressing, Eating, Fine Motor Skills, Grooming, Homemaking, Kitchen Mobility, Laundry, Cornelia ent Education, Safety Awareness, Splinting - Positioning, Transfers(Toilet, Tub, Shower), and Wheel C hair Management Need for pulmonary care nurse - to improve, our occupation therapists will perform initial evaluation of pt's s tatus upon admission and devise an individualized program for Caregiver Training Weakness - to improve, our occupation therapists will perform initial evaluation of pt's status upon admission and devise an individualized program for Aquatic Therapy, Balance, Endurance, UE ROM, and U E strengthening MEDICAL PLAN: - Diet Type Start Regular - Diet - Liquid Texture Start Regular - Tube Feed Start N/A - Weight Bearing Precaution WBAT left LE - Skin care per protocol - Other See attached MAR (Medication Administration Record) - Diet - Solid Texture Regular - Shower shower DISCHARGE PLAN: - Estimated Length of Stay (days) 7. - Consensus on plan Discharge plan has been discussed with primary caregiver. Patient/Family is in agreement with the chelle n. Primary caregiver is in agreement with the plan. - Patient/Family Goals Return home with assistance. - Planned Living Setting Upon Discharge [facility], to live with Family/Relatives. Transitional Living. Primary caregiver: SISTER. SIGNATURE PANEL: (CDT)
--- NOTE | 2019-11-29 13:45 | PAPE ---
PATIENT: [facility] MR# [id number] REFERRING DOCTOR Dr. SHIKHA PÉREZ EVALUATION DATE AND TIME 11/29/2019 13:42 (CDT) NAME DESIREE CARVALHO DATE OF 1950 AGE 69 PHONE SSN# [id number] GENDER female EVALUATING PHYSICIAN Dr. Moi Barry M.D. ADMISSION DIAGNOSIS: LEFT DISTAL FEMORAL SHAFT PERIPROSTHETIC FRACTURE ONSET DATE 11/22/2019 SECONDARY/COMORBID DIAGNOSES TIERED: - Tier 3 Morbid (severe) obesity due to excess calories (E66.01) POST-ADMISSION FUNCTIONAL/MEDICAL STATUS: - Bladder Same accident frequency: Ind - No accidents in the past 7 days - Bowel Same accident frequency: Ind - No accidents in the past 7 days - Walking Same score based on distance walked: 0(N/A) - Wheelchair Same score based on distance traveled: 0(N/A) STATUS CHANGE EVALUATION: No change in Functional or Medical Status is identified compared with Pre-Admission screening. PATIENT NEEDS CLOSE MEDICAL SUPERVISION BY A REHABILITATION PHYSICIAN FOR: Coordination of Treatment Team Medical and Co-Morbidity Management Post-Op Complications Wound Care PATIENT REQUIRES 24X7 REHAB NURSING FOR MEDICAL AND FUNCTIONAL MGT. OF THE FOLLOWING DEFICITS: Disease Management Medication Management Patient/Family Education Providing Safe Environment Skin Integrity PATIENT REQUIRES INTENSIVE, COORDINATED INTERDISCIPLINARY APPROACH TO REHAB: Arranging Home Equipment/Services Discharge Planning Family Intervention/Training Incendiaries Supervisor/Case Management LIST OF IDENTIFIED AND POTENTIAL PROBLEMS: Alteration in leisure activities Bladder, Incontinence Bowel, Incontinence Infection, Actual or Potential Mobility Impaired Pain, Alteration in Comfort Self Care Deficit Skin Integrity, Actual or Potential Urinary Tract Infection (UTI), Actual or Potential PATIENT COULD BE AT RISK FOR COMPLICATIONS FROM ADVERSE MEDICAL CONDITIONS DUE TO HIS/HER COMORBIDITI ES AND THE RIGORS OF THE INTENSIVE REHABILLITATION PROGRAM. METHODS OR INTERVENTIONS TO AVOID COMPLIC ATIONS INCLUDE: - Bleeding Assess lab values and manage abnormalities. Nursing to teach precautions for anti-coagulation therapy . Wound to be assessed every shift. - Infection Clinical staff to assess and manage the signs and symptoms of infection including fever, redness, war mth, etc. - Urinary Tract Infection - Falls Patient will be evaluated for Fall Precautions and will be placed on Fall Precautions as indicated pe r protocol. - Skin Breakdown Nursing will assess skin daily using assessment tool and will place on Skin Breakdown Precautions as indicated per protocol. - Pain Clinical staff may employ non-medication methods such as massage, distraction, decrease stimulus, etc . as needed. Clinical staff will assess patient's pain level every shift per protocol to assess and e nsure pain management effectiveness. Medications will be given and the pain level re-assessed. PRELIMINARY PLAN OF CARE: - Physical Therapy Patient needs Physical Therapy for a daily minimum of 1.5 hours at least 5 out of 7 days, to improve: Mobility, Strengthening, Transfers, Stretching, ROM, Endurance, Ability to manage stairs, Gait, and Balance. - Speech Therapy Patient needs Speech Therapy for a daily minimum of 0.5 hours at least 5 out of 7 days, to improve: S wallowing, Cognition, Language Skills, and Compensatory Strategies. - Rehabilitation Nursing Patient requires 24x7 Rehabilitation Nursing for: Pain Issues, Identifying and preventing risk factor s, Monitoring and reporting current medical conditions, Assisting with ambulation and transfer, Sukh ting with all ADL-s, Teaching patients about disease process and medications, Family teaching, Provid ing safe environment, Bowel and Bladder Issues, Skin Integrity, and Medication Management. Patient needs Incendiaries Supervisor and/or Case Management for: Discharge Planning, Arranging Home Equipmen t or Services, and Family Interventions. - Dietary and Nutrition Services Patient needs Dietary and Nutrition Services for: Adequate Nutrition, Nutritional Supplements, and Nu tritional Education. - Occupational Therapy Patient needs Occupational Therapy for a daily minimum of 1.5 hours at least 5 out of 7 days, to impr ove Activities of Daily Living, including: Eating, Grooming, Bathing, Dressing, Toileting, Toilet Tra nsfers, Community Reintegration, Higher functional activities, Adaptive Equipment, Splinting, Househo ld Tasks, and Other activities as determined. QI SCORES: - Self-Care A. Eating 05-Setup or clean-up assistance B. Oral hygiene 05-Setup or clean-up assistance C. Toileting hygiene 03-Partial/moderate assistance E. Shower/bathe self 88-Not attempted due to medical condition or safety concerns F. Upper body dressing 03-Partial/moderate assistance G. Lower body dressing 02-Substantial/maximal assistance H. Putting on/taking off footwear 02-Substantial/maximal assistance - Mobility A. Roll left and right 04-Supervision or touching assistance B. Sit to lying 04-Supervision or touching assistance C. Lying to sitting on side of bed 04-Supervision or touching assistance D. Sit to stand 03-Partial/moderate assistance E. Chair/mre-ba-ysriw transfer 03-Partial/moderate assistance F. Toilet transfer 03-Partial/moderate assistance G. Car transfer 88-Not attempted due to medical condition or safety concerns I. Walk 10 feet 88-Not attempted due to medical condition or safety concerns J. Walk 50 feet with two turns 88-Not attempted due to medical condition or safety concerns K. Walk 150 feet 88-Not attempted due to medical condition or safety concerns L. Walking 10 feet on uneven surfaces 88-Not attempted due to medical condition or safety concerns M. 1 step (curb) 88-Not attempted due to medical condition or safety concerns N. 4 steps 88-Not attempted due to medical condition or safety concerns O. 12 steps 88-Not attempted due to medical condition or safety concerns P. Picking up object 88-Not attempted due to medical condition or safety concerns R. Wheel 50 feet with two turns S. Wheel 150 feet - Bladder and Bowel Bladder continence 1-Stress incontinence only Bowel continence 0-Always continent - Endurance Poor - Balance Fair - Safety Awareness Good POTENTIAL FUNCTIONAL GOALS FOR PATIENT TO ACHIEVE BY DISCHARGE: - Safety Precaution Patient will remain free from falls or injury at time of discharge. - Bed Mobility Patient will perform bed mobility at 4-Mary Kay level of assistance. - Transfers Patient will complete transfers from bed to chair at 4-Mary Kay level of assistance. - Mobility Patient will ambulate 150 ft with 4-Mary Kay level of assistance with RW. PATIENT REHAB POTENTIAL Tomer CARVALHO is able and expected to receive 3 hours of individualized therapy daily on at least 5 of alexandra ry 7 days NSoledad CARVALHO's prognosis for significant practical improvement within a reasonable period of time appears Good Expected level of measurable improvement will be of a practical value to NSoledad CARVALHO's functional capaci ty or adaptations to impairments Has a viable Discharge Plan Medically appropriate; condition is sufficiently stable to participate in intensive rehab program DISCHARGE PLAN: - Estimated Length of Stay (days) 7. - Consensus on plan Discharge plan has been discussed with primary caregiver. Patient/Family is in agreement with the chelle n. Primary caregiver is in agreement with the plan. - Patient/Family Goals Return home with assistance. - Planned Living Setting Upon Discharge MOTHER'S HOME, to live with Family/Relatives. Transitional Living. Primary caregiver: SISTER. CONCLUSION ON REHABILITATION NECESSITY: I have evaluated patient's pre-admission functional status and, comparing it to the patient's post-ad mission functional status now, I conclude that the pre-admission assessment was accurate. Patient's c ondition on admission supports the medical necessity of admission to IRF. It is safe to proceed with patient's therapy program. SIGNATURE PANEL: (CDT)
[2019-11-29] MEDS: ATORVASTATIN 10 MG TAB PO SCH (20:06)
[2019-11-30] MEDS: TRAMADOL HCL 50 MG TAB PO PRN ×2 (00:40→12:36)
[2019-11-30] MEDS: ENOXAPARIN 30 MG/0.3 ML SQ SCH (06:31)
[2019-11-30] MEDS: PANTOPRAZOLE 40MG TABLET PO SCH (06:31)
[2019-11-30] MEDS: MELOXICAM 7.5 MG TAB PO SCH (08:34)
[2019-11-30] MEDS: GABAPENTIN 300 MG CAP PO SCH ×2 (08:34→20:04)
[2019-11-30] MEDS: DOXYCYCLINE 100 MG CAP PO SCH ×2 (08:34→20:04)
[2019-11-30] MEDS: PROMOD 30 ML DOSE PO SCH ×2 (08:35→20:03)
[2019-11-30] MEDS: predniSONE 20 MG TAB PO SCH (08:35)
[2019-11-30] MEDS: FERROUS SULFATE 325 MG TAB PO SCH (08:35)
[2019-11-30] MEDS: CALCIUM CARB 500MG/VIT D 200 IU TAB PO SCH (08:35)
[2019-11-30] MEDS: FE SULF/FA/VIT B COMP & C TAB PO SCH (08:35)
[2019-11-30] MEDS: HYDROCODONE/APAP 5/325 MG TAB PO PRN (08:38)
--- NOTE | 2019-11-30 17:32 | R.PN ---
ENCOUNTER DATE AND TIME: 11/30/2019 17:19 (CDT) NAME DESIREE CARVALHO DATE OF : 1950 DATE OF ADMISSION: 11/28/2019 18:45 (CDT) LEFT DISTAL FEMORAL SHAFT PERIPROSTHETIC FRACTURECHIEF COMPLAINT: Left femur fracture SUBJECTIVE: Pt denied any Shortness of Breath. Pt denied any depression. WBC is normal at 10.2, Hgb 9.7. Ferrous sulfate and Hemocyte plus is being used. Ambulated 140' with contact guard assistance using a rolling walker. VITAL SIGNS Temperature: 98.6 F SBP/DBP: 118/55 Pulse: 60 Resp: 16 MEDICATION ALLERGIES: XANAX ZINC ENVIRONMENTAL ALLERGIES: - Substance Allergies None Known - Other Allergies None Known NURSING: - Shower allowing shower - Skin care per protocol PRECAUTIONS: - Weight Bearing Precaution WBAT left LE ACTIVITIES OOB only with supervision THERAPIES: - Dietary and Nutrition Adequate Nutrition. Nutritional Education. Nutritional Supplements. PHYSICAL EXAM - Gen Alert and awake Lying in bed No apparent distress Oriented to: person, time, and place - Skin Left hip incision intact with hua. She has mild itching at incision site. Normacephalic - Eyes No abnormalities - ENMT No abnormalities - Neck No abnormalities No cervical adenopathy - CVS RRR - Chest No abnormalities - Resp Clear to auscultation - Abd Soft - GI Non distended Deferred - No abnormalities - Ext Mild left lower extremity edema. - MSK 4+/5 weakness in left lower extremity - Neuro 4/5 strength left lower extremity. - Psych No abnormalities ASSESSMENT: Pt. is a 69 yo Right-handed white female.On 11/22/2019 she was admitted to [facility] emergency surgery for LEFT DISTAL FEMORAL SHAFT PERIPROSTHETIC FRACTURE (Femur (Shaft) Fracture) Bairon PÉREZ.Pre-morbidly, Pt. was independent/mod-I in Locomotion, Balance, Social Cognitio n, Transfers Control, Sphincter Control, Self-Care, and Communication; and she had good Endurance and Safety Awareness.Currently, she has deficits of Locomotion, Balance, Transfers Control, Self-Care, a nd Endurance.Pt. is now referred to [facility] for acute in-patient rehabilita tion in order to maximize patient's functional independence in activities of daily living, strength, ROM, and mobility.- Rehab Goal Patient has realistic goal of being discharged at assistance level 7-Ind to reside at MOTHER'S HOME w ith Family/Relatives. MDM/PLAN: - Physical Therapy Decreased range of motion - to improve, our physical therapists will perform initial evaluation of p t's status upon admission and devise an individualized program for increasing patient's Range of Phillip on. Gait dysfunction - to improve, our physical therapists will perform initial evaluation of pt's statu s upon admission and devise an individualized program for Gait Training, and Wheel Chair mobility Inability to transfer - to improve, our physical therapists will perform initial evaluation of pt's status upon admission and devise an individualized program for Bed mobility Need for home safety evaluation - to improve, our physical therapists will perform initial evaluatio n of pt's status upon admission and devise an individualized program for Home Evaluation Need in caregiver upon discharge - to improve, our physical therapists will perform initial evaluati on of pt's status upon admission and devise an individualized program for Caregiver Training Edema - to improve, our physical therapists will perform initial evaluation of pt's status upon admis lauren and devise an individualized program for Elevation Training, and Lymphedema Therapy New precaution - to improve, our physical therapists will perform initial evaluation of pt's status upon admission and devise an individualized program for Patient precaution education Poor balance - to improve, our physical therapists will perform initial evaluation of pt's status up on admission and devise an individualized program for Balance Training Poor endurance - to improve, our physical therapists will perform initial evaluation of pt's status upon admission and devise an individualized program for Endurance Training Weakness - to improve, our physical therapists will perform initial evaluation of pt's status upon a dmission and devise an individualized program for Aquatic Therapy, Neuromuscular Reeducation, and Str engthening Achieving independence - to improve, our physical therapists will perform initial evaluation of pt's status upon admission and devise an individualized program for Community Reintegration Activities - Occupational Therapy ADL deficits - to improve, our occupation therapists will perform initial evaluation of pt's status upon admission and devise an individualized program for Bathing, Bed mobility, Community Reintegratio n, Cooking, Dressing, Eating, Fine Motor Skills, Grooming, Homemaking, Kitchen Mobility, Laundry, Pat ient Education, Safety Awareness, Splinting - Positioning, Transfers(Toilet, Tub, Shower), and Wheel Chair Management Need for animal caregiver - to improve, our occupation therapists will perform initial evaluation of pt's status upon admission and devise an individualized program for Caregiver Training Weakness - to improve, our occupation therapists will perform initial evaluation of pt's status upon admission and devise an individualized program for Aquatic Therapy, Balance, Endurance, UE ROM, and UE strengthening - Other See attached MAR (Medication Administration Record) - Diet Type Continue Regular - Diet - Liquid Texture Continue Regular - Tube Feed Continue N/A - Weight Bearing Precaution WBAT left LE - Skin care per protocol - Diet - Solid Texture Continue Regular - Shower allowing shower FUNCTIONAL STATUS: UPDATED AT WEEKLY TEAM CONFERENCE - Bladder Same accident frequency: 7-Ind - No accidents in the past 7 days - Bowel Same accident frequency: 7-Ind - No accidents in the past 7 days - Walking Same score based on distance walked: 0(N/A) - Wheelchair Same score based on distance traveled: 0(N/A) FUNCTIONAL STATUS: - Self-Care A. Eating Ind B. Grooming Sushma C. Bathing modA D. Dressing - Upper modA E. Dressing - Lower Dep F. Toileting maxA - Sphincter Control G. Bladder control Mary Kay H. Bowel control sup - Transfers Control I. Bed/Chair/Wheelchair maxA J. Toilet maxA K. Tub/Shower maxA - Locomotion L. Walk/Wheelchair (B) modA M. Stairs ADNO - Communication N. Comprehension (B) Sushma O. Expression (B) Sushma - Social Cognition P. Social Interaction Ind Q. Problem Solving Ind R. Memory Sushma - Endurance Fair - Balance Fair - Safety Awareness Fair QI SCORES: - Self-Care A. Eating 05-Setup or clean-up assistance B. Oral hygiene 05-Setup or clean-up assistance C. Toileting hygiene 03-Partial/moderate assistance E. Shower/bathe self 88-Not attempted due to medical condition or safety concerns F. Upper body dressing 03-Partial/moderate assistance G. Lower body dressing 02-Substantial/maximal assistance H. Putting on/taking off footwear 02-Substantial/maximal assistance - Mobility A. Roll left and right 04-Supervision or touching assistance B. Sit to lying 04-Supervision or touching assistance C. Lying to sitting on side of bed 04-Supervision or touching assistance D. Sit to stand 03-Partial/moderate assistance E. Chair/jcq-kv-eqqql transfer 03-Partial/moderate assistance F. Toilet transfer 03-Partial/moderate assistance G. Car transfer 88-Not attempted due to medical condition or safety concerns I. Walk 10 feet 88-Not attempted due to medical condition or safety concerns J. Walk 50 feet with two turns 88-Not attempted due to medical condition or safety concerns K. Walk 150 feet 88-Not attempted due to medical condition or safety concerns L. Walking 10 feet on uneven surfaces 88-Not attempted due to medical condition or safety concerns M. 1 step (curb) 88-Not attempted due to medical condition or safety concerns N. 4 steps 88-Not attempted due to medical condition or safety concerns O. 12 steps 88-Not attempted due to medical condition or safety concerns P. Picking up object 88-Not attempted due to medical condition or safety concerns R. Wheel 50 feet with two turns S. Wheel 150 feet - Bladder and Bowel Bladder continence 1-Stress incontinence only Bowel continence 0-Always continent - Endurance Poor - Balance Fair - Safety Awareness Good CURRENT FUNC. DEFICITS: Self-Care, Mobility, Endurance, and Balance SIGNATURE PANEL: (CDT)
[2019-11-30] MEDS: ATORVASTATIN 10 MG TAB PO SCH (20:04)
[2019-12-01] MEDS: HYDROCODONE/APAP 5/325 MG TAB PO PRN ×2 (00:14→19:41)
[2019-12-01] MEDS: ENOXAPARIN 30 MG/0.3 ML SQ SCH (06:14)
[2019-12-01] MEDS: PANTOPRAZOLE 40MG TABLET PO SCH (06:14)
[2019-12-01] MEDS: TRAMADOL HCL 50 MG TAB PO PRN ×2 (06:37→12:05)
[2019-12-01] MEDS: GABAPENTIN 300 MG CAP PO SCH ×2 (07:28→19:39)
[2019-12-01] MEDS: MELOXICAM 7.5 MG TAB PO SCH (07:28)
[2019-12-01] MEDS: FERROUS SULFATE 325 MG TAB PO SCH (07:29)
[2019-12-01] MEDS: CALCIUM CARB 500MG/VIT D 200 IU TAB PO SCH (07:29)
[2019-12-01] MEDS: predniSONE 20 MG TAB PO SCH (07:29)
[2019-12-01] MEDS: DOXYCYCLINE 100 MG CAP PO SCH ×2 (07:29→19:41)
[2019-12-01] MEDS: FE SULF/FA/VIT B COMP & C TAB PO SCH (07:29)
[2019-12-01] MEDS: PROMOD 30 ML DOSE PO SCH ×2 (07:31→19:47)
--- NOTE | 2019-12-01 09:40 | P.RH.PN ---
Estimated Length of Stay: 14 Expected Discharge Date: 11/13/19 Discharge Disposition Plan: Home Family Support: Yes Longterm Goal: Mobility, Transfers, Self Care Vital Signs: Last Vital Signs Temp 97.5 F 12/01/19 06:47 Pulse 65 12/01/19 06:47 Resp 18 12/01/19 07:29 BP 109/61 12/01/19 06:47 Pulse Ox 97 12/01/19 07:29 Laboratory: Laboratory Last Values WBC 10.2 K/uL (4.3-10.9) 11/29/19 06:19 RBC 3.07 M/uL (3.86-4.86) L 11/29/19 06:19 Hgb 9.7 g/dL (12.0-15.0) L 11/29/19 06:19 Hct 28.9 % (36.0-45.0) L 11/29/19 06:19 MCV 93.8 fL (80-100) 11/29/19 06:19 MCH 31.6 pg (27.0-35.0) 11/29/19 06:19 MCHC 33.7 g/dL (32.0-36.0) 11/29/19 06:19 RDW 15.3 % (12.1-15.2) H 11/29/19 06:19 Plt Count 243 K/uL (152-406) 11/29/19 06:19 MPV 9.7 fL (7.6-11.3) 11/29/19 06:19 Neutrophils % 60.0 % (41.7-73.7) 11/29/19 06:19 Lymphocytes % 26.2 % (15.3-44.8) 11/29/19 06:19 Monocytes % 10.6 % (3.3-12.3) 11/29/19 06:19 Eosinophils % 2.2 % (0-4.4) 11/29/19 06:19 Basophils % 1.0 % (0-1.3) 11/29/19 06:19 Absolute Neutrophils 6.1 K/uL (1.8-8.0) 11/29/19 06:19 Absolute Lymphocytes 2.7 K/uL (0.7-4.9) 11/29/19 06:19 Absolute Monocytes 1.1 K/uL (0.1-1.3) 11/29/19 06:19 Absolute Eosinophils 0.2 K/uL (0-0.5) 11/29/19 06:19 Absolute Basophils 0.1 K/uL (0-0.5) 11/29/19 06:19 Sodium 144 mmol/L (136-145) 11/29/19 06:19 Potassium 3.7 mmol/L (3.5-5.1) 11/29/19 06:19 Chloride 112 mmol/L (98-107) H 11/29/19 06:19 Carbon Dioxide 25 mmol/L (21-32) 11/29/19 06:19 BUN 13 mg/dL (7-18) 11/29/19 06:19 Creatinine 0.60 mg/dL (0.55-1.3) 11/29/19 06:19 Estimated GFR > 90 mL/min (=/>90) 11/29/19 06:19 Glucose 79 mg/dL (74-106) 11/29/19 06:19 Calcium 7.9 mg/dL (8.5-10.1) L 11/29/19 06:19 Magnesium 2.2 mg/dL (1.8-2.4) 11/29/19 06:19 Albumin 2.1 g/dL (3.4-5.0) L 11/29/19 06:19 Prealbumin 16.0 mg/dL (20-40) L 11/29/19 06:19 Urine Color Yellow 11/28/19 20:45 Urine Appearance Clear 11/28/19 20:45 Urine pH 6.0 (5.0-7.0) 11/28/19 20:45 Ur Specific [place] 1.015 (1.005-1.030) 11/28/19 20:45 Glucose (UA)(Auto) Negative (NEG) 11/28/19 20:45 Urine Ketones Negative (NEG) 11/28/19 20:45 Urine Blood 2+ (NEG) H 11/28/19 20:45 Urine Nitrite Negative (NEG) 11/28/19 20:45 Urine Bilirubin Negative (NEG) 11/28/19 20:45 Urine Urobilinogen 0.2 mg/dL (0.2-1.0) 11/28/19 20:45 Ur Leukocyte Esterase Trace (NEG) H 11/28/19 20:45 Urine RBC 5-10 /HPF (NONE SEEN) H 11/28/19 20:45 Urine WBC <5 /HPF (<5) 11/28/19 20:45 Ur Squamous Epith Cells <5 /HPF (NONE SEEN) 11/28/19 20:45 Urine Bacteria <20 /HPF (<20) 11/28/19 20:45 Urine Culture Reflexed Not needed 11/28/19 20:45 Urine Total Protein 1+ (NEG) H 11/28/19 20:45 Weight: 248 lb 11.2 oz Wound Present: Yes Closed Surgical Incision Present: Yes Negative Pressure Wound Therapy Present: No Physician Update: Labs reviewed and are stable. She is walking 150' and transfering with contact guard. She has some postural stablility issues. She is doing fair with occupational therapy but she is still at maximum assistance. 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 Please see the Rehabilitation Signature page for all necessary signatures.
--- NOTE | 2019-12-01 14:15 | FAST ---
ENCOUNTER DATE AND TIME: 12/01/2019 08:00 (CDT) NAME DESIREE CARVALHO DATE OF : 1950 DATE OF ADMISSION: 11/28/2019 18:45 (CDT) PHONE: AGE: 69 N# [id number] GENDER: Female ENCOUNTER PHYSICIAN: Dr. Moi Barry M.D. ADMISSION DIAGNOSIS: - Orthopaedic Disorders 08 - Femur (Shaft) Fracture (08.2) LEFT DISTAL FEMORAL SHAFT PERIPROSTHETIC FRACTURE. EATING: Not assessed/no information CODE: - ORAL HYGIENE: ORAL HYGIENE - STEP 1: Does the patient complete the activity by him/herself with no assistance (physical, verbal/nonverbal cueing, setup/clean-up)? Yes. 1. [id number] ADMISSION PERFORMANCE: Independent CODE: 06 TOILETING HYGIENE: TOILETING HYGIENE - STEP 1: Does the patient complete the activity by him/herself with no assistance (physical, verbal/nonverbal cueing, setup/clean-up)? No. TOILETING HYGIENE - STEP 2: Does the patient need only setup/clean-up assistance from one helper? No. TOILETING HYGIENE - STEP 3: Does the patient need only verbal/nonverbal cueing or touching/steadying/contact guard assistance fro m one helper? Yes. 1. [id number] ADMISSION PERFORMANCE: Supervision or touching assistance CODE: 04 BATHING: Not assessed/no information CODE: - DRESSING - UPPER BODY: DRESSING - UPPER BODY - STEP 1: Does the patient complete the activity by him/herself with no assistance (physical, verbal/nonverbal cueing, setup/clean-up)? No. DRESSING - UPPER BODY - STEP 2: Does the patient need only setup/clean-up assistance from one helper? Yes. 1. [id number] ADMISSION PERFORMANCE: Setup or clean-up assistance CODE: 05 DRESSING - LOWER BODY: DRESSING - LOWER BODY - STEP 1: Does the patient complete the activity by him/herself with no assistance (physical, verbal/nonverbal cueing, setup/clean-up)? No. DRESSING - LOWER BODY - STEP 2: Does the patient need only setup/clean-up assistance from one helper? No. DRESSING - LOWER BODY - STEP 3: Does the patient need only verbal/nonverbal cueing or touching/steadying/contact guard assistance fro m one helper? Yes. 1. [id number] ADMISSION PERFORMANCE: Supervision or touching assistance CODE: 04 PUTTING ON/TAKING OFF FOOTWEAR: Not assessed/no information CODE: - DOES THE PATIENT USE A WHEELCHAIR/SCOOTER? CODE: EXPR INDICATE THE TYPE OF WHEELCHAIR/SCOOTER USED: CODE: EXPR INDICATE THE TYPE OF WHEELCHAIR/SCOOTER USED: CODE: EXPR BLADDER AND BOWEL: CODE: EXPR CODE: EXPR SIGNATURE PANEL: The following modified sections: 1. [id number] Admission Performance, 1. [id number] Admission Performance, 1. [id number] Admission Performance, 1. [id number] Admission Performance were [electronically] signed by ISAMAR Nguyen on WedDec 01 2019 14:13:46 T-0500 (Central Daylight Time)
[2019-12-01] MEDS: ATORVASTATIN 10 MG TAB PO SCH (21:10)
[2019-12-02] MEDS: TRAMADOL HCL 50 MG TAB PO PRN ×2 (03:08→12:07)
[2019-12-02 05:35] VITALS: BMI 47.6
[2019-12-02] MEDS: PANTOPRAZOLE 40MG TABLET PO SCH (06:31)
[2019-12-02] MEDS: ENOXAPARIN 30 MG/0.3 ML SQ SCH (06:32)
[2019-12-02] MEDS: CALCIUM CARB 500MG/VIT D 200 IU TAB PO SCH (08:28)
[2019-12-02] MEDS: MELOXICAM 7.5 MG TAB PO SCH (08:28)
[2019-12-02] MEDS: DOXYCYCLINE 100 MG CAP PO SCH (08:29)
[2019-12-02] MEDS: FERROUS SULFATE 325 MG TAB PO SCH (08:29)
[2019-12-02] MEDS: predniSONE 20 MG TAB PO SCH (08:29)
[2019-12-02] MEDS: GABAPENTIN 300 MG CAP PO SCH ×2 (08:29→19:18)
[2019-12-02] MEDS: HYDROCODONE/APAP 5/325 MG TAB PO PRN ×2 (08:30→23:15)
[2019-12-02] MEDS: FE SULF/FA/VIT B COMP & C TAB PO SCH (08:30)
[2019-12-02] MEDS: PROMOD 30 ML DOSE PO SCH ×2 (08:32→19:28)
[2019-12-02] MEDS ORDERED: DRISDOL (VITAMIN D=ERGOCALCIFEROL) 50000 UNIT CAP PO SCH (09:00)
[2019-12-02] MEDS: SMZ./TMP. 800/160 MG TABLET PO SCH (19:18)
[2019-12-02] MEDS: ATORVASTATIN 10 MG TAB PO SCH (19:19)
[2019-12-03] MEDS: ENOXAPARIN 30 MG/0.3 ML SQ SCH (06:18)
[2019-12-03] MEDS: PANTOPRAZOLE 40MG TABLET PO SCH (06:18)
[2019-12-03] MEDS: PROMOD 30 ML DOSE PO SCH ×2 (07:56→19:36)
[2019-12-03] MEDS: MELOXICAM 7.5 MG TAB PO SCH (07:56)
[2019-12-03] MEDS: FE SULF/FA/VIT B COMP & C TAB PO SCH (07:56)
[2019-12-03] MEDS: SMZ./TMP. 800/160 MG TABLET PO SCH ×2 (07:56→19:36)
[2019-12-03] MEDS: predniSONE 20 MG TAB PO SCH (07:56)
[2019-12-03] MEDS: FERROUS SULFATE 325 MG TAB PO SCH (07:56)
[2019-12-03] MEDS: CALCIUM CARB 500MG/VIT D 200 IU TAB PO SCH (07:56)
[2019-12-03] MEDS: GABAPENTIN 300 MG CAP PO SCH ×2 (07:57→19:36)
[2019-12-03] MEDS: HYDROCODONE/APAP 5/325 MG TAB PO PRN (19:37)
[2019-12-03] MEDS: ATORVASTATIN 10 MG TAB PO SCH (20:01)
[2019-12-03] MEDS: TRAMADOL HCL 50 MG TAB PO PRN (22:51)
[2019-12-04] MEDS: HYDROCODONE/APAP 5/325 MG TAB PO PRN ×3 (03:05→19:23)
[2019-12-04] MEDS: PANTOPRAZOLE 40MG TABLET PO SCH (06:43)
[2019-12-04] MEDS: ENOXAPARIN 30 MG/0.3 ML SQ SCH (06:44)
[2019-12-04] MEDS: FE SULF/FA/VIT B COMP & C TAB PO SCH (08:00)
[2019-12-04] MEDS: FERROUS SULFATE 325 MG TAB PO SCH (08:23)
[2019-12-04] MEDS: MELOXICAM 7.5 MG TAB PO SCH (08:23)
[2019-12-04] MEDS: GABAPENTIN 300 MG CAP PO SCH ×2 (08:24→19:24)
[2019-12-04] MEDS: CALCIUM CARB 500MG/VIT D 200 IU TAB PO SCH (08:24)
[2019-12-04] MEDS: SMZ./TMP. 800/160 MG TABLET PO SCH ×2 (08:25→19:23)
[2019-12-04] MEDS: PROMOD 30 ML DOSE PO SCH ×2 (08:26→19:24)
--- NOTE | 2019-12-04 12:13 | FAST ---
ENCOUNTER DATE AND TIME: 12/04/2019 08:00 (CDT) NAME DESIREE CARVALHO DATE OF : 1950 DATE OF ADMISSION: 11/28/2019 18:45 (CDT) PHONE: AGE: 69 N# [id number] GENDER: Female ENCOUNTER PHYSICIAN: Dr. Moi Barry M.D. ADMISSION DIAGNOSIS: - Orthopaedic Disorders 08 - Femur (Shaft) Fracture (08.2) LEFT DISTAL FEMORAL SHAFT PERIPROSTHETIC FRACTURE. EATING: Not assessed/no information CODE: - ORAL HYGIENE: ORAL HYGIENE - STEP 1: Does the patient complete the activity by him/herself with no assistance (physical, verbal/nonverbal cueing, setup/clean-up)? Yes. 1. [id number] ADMISSION PERFORMANCE: Independent CODE: 06 TOILETING HYGIENE: Not assessed/no information CODE: - BATHING: SHOWER/BATHE SELF - STEP 1: Does the patient complete the activity by him/herself with no assistance (physical, verbal/nonverbal cueing, setup/clean-up)? No. SHOWER/BATHE SELF - STEP 2: Does the patient need only setup/clean-up assistance from one helper? No. SHOWER/BATHE SELF - STEP 3: Does the patient need only verbal/nonverbal cueing or touching/steadying/contact guard assistance fro m one helper? Yes. 1. [id number] ADMISSION PERFORMANCE: Supervision or touching assistance CODE: 04 DRESSING - UPPER BODY: DRESSING - UPPER BODY - STEP 1: Does the patient complete the activity by him/herself with no assistance (physical, verbal/nonverbal cueing, setup/clean-up)? Yes. 1. [id number] ADMISSION PERFORMANCE: Independent CODE: 06 DRESSING - LOWER BODY: DRESSING - LOWER BODY - STEP 1: Does the patient complete the activity by him/herself with no assistance (physical, verbal/nonverbal cueing, setup/clean-up)? No. DRESSING - LOWER BODY - STEP 2: Does the patient need only setup/clean-up assistance from one helper? No. DRESSING - LOWER BODY - STEP 3: Does the patient need only verbal/nonverbal cueing or touching/steadying/contact guard assistance fro m one helper? Yes. 1. [id number] ADMISSION PERFORMANCE: Supervision or touching assistance CODE: 04 PUTTING ON/TAKING OFF FOOTWEAR: FOOTWEAR - STEP 1: Does the patient complete the activity by him/herself with no assistance (physical, verbal/nonverbal cueing, setup/clean-up)? No. FOOTWEAR - STEP 2: Does the patient need only setup/clean-up assistance from one helper? No. FOOTWEAR - STEP 3: Does the patient need only verbal/nonverbal cueing or touching/steadying/contact guard assistance fro m one helper? Yes. 1. [id number] ADMISSION PERFORMANCE: Supervision or touching assistance CODE: 04 DOES THE PATIENT USE A WHEELCHAIR/SCOOTER? CODE: EXPR INDICATE THE TYPE OF WHEELCHAIR/SCOOTER USED: CODE: EXPR INDICATE THE TYPE OF WHEELCHAIR/SCOOTER USED: CODE: EXPR BLADDER AND BOWEL: CODE: EXPR CODE: EXPR SIGNATURE PANEL: The following modified sections: 1. [id number] Admission Performance, 1. [id number] Admission Performance, 1. [id number] Admission Performance, 1. [id number] Admission Performance, 1. [id number] Admission Performance were [electronically] signed by ISAMAR Rubi on WedDec 04 2019 12:13:11 T-0500 (Central Daylight Time)
[2019-12-04] MEDS: TRAMADOL HCL 50 MG TAB PO PRN ×2 (12:49→21:37)
[2019-12-04] MEDS: ATORVASTATIN 10 MG TAB PO SCH (20:04)
[2019-12-05] MEDS: HYDROCODONE/APAP 5/325 MG TAB PO PRN ×3 (01:56→20:08)
[2019-12-05] MEDS: ENOXAPARIN 30 MG/0.3 ML SQ SCH (06:43)
[2019-12-05] MEDS: PANTOPRAZOLE 40MG TABLET PO SCH (06:43)
[2019-12-05] MEDS: TRAMADOL HCL 50 MG TAB PO PRN ×2 (08:22→21:54)
[2019-12-05] MEDS: GABAPENTIN 300 MG CAP PO SCH ×2 (08:23→20:09)
[2019-12-05] MEDS: CALCIUM CARB 500MG/VIT D 200 IU TAB PO SCH (08:23)
[2019-12-05] MEDS: FERROUS SULFATE 325 MG TAB PO SCH (08:23)
[2019-12-05] MEDS: MELOXICAM 7.5 MG TAB PO SCH (08:24)
[2019-12-05] MEDS: FE SULF/FA/VIT B COMP & C TAB PO SCH (08:24)
[2019-12-05] MEDS: SMZ./TMP. 800/160 MG TABLET PO SCH ×2 (08:24→20:08)
[2019-12-05] MEDS: PROMOD 30 ML DOSE PO SCH ×2 (08:26→20:09)
--- NOTE | 2019-12-05 12:02 | P.CNS ---
Date of Consult: 12/05/19 Chief Complaint: s/p left hip surgery History of Present Illness: she had an IM igor left proximal femur in [place] on 11/23/2019, they released her to [facility] according to patient history which she has been doing and tolerating well. she is concerned about infection, she has had previous post operative infections and had a left elbow bursal infection at the time of surgery, she has been on Bactrim for that and it is improving. She is concerned about drainage from her distal incision, she is on Lovenox but she is up and active Allergies alprazolam [From Xanax] Allergy (Severe, Verified 11/29/19 06:07) seecom Home medications list reviewed: Yes Home Medications: Atorvastatin Calcium [Lipitor] 10 mg PO BEDTIME 05/08/19 Doxycycline Hyclate 100 mg PO DAILY 05/08/19 Fluticasone/Umeclidin/Vilanter [Trelegy Ellipta 100-62.5-25] 1 each IH BEDTIME 05/08/19 Gabapentin 300 mg PO BID 05/08/19 Meloxicam 15 mg PO DAILY 05/08/19 Pantoprazole [Protonix Tab] 40 mg PO DAILY 05/08/19 Tramadol HCl [Ultram] 50 mg PO Q8HP 05/08/19 Trazodone HCl [Desyrel] 100 mg PO BEDTIME PRN PRN 05/08/19 predniSONE [Deltasone] 20 mg PO BID 05/08/19 Ergocalciferol (Vitamin D2) [Vitamin D 50,000 Unit Cap] 1 cap PO Q7D 11/28/19 Hydrocodone Bit/Acetaminophen [Hydrocodon-Acetaminophen 5-325] 1 tab PO Q8HR PRN 11/28/19 - Past Medical/Surgical History Diabetic: No -: GERD -: COPD -: OA -: MALINDA KNEE REPLACEMENT -: ANKLE SURGERY -: TIBULA,FIBULA,FEMUR SURGERY - Family History Father Medical History: Heart disease, Lung disease, GI disease Mother Medical History: Heart disease, Hypertension, GI disease - Social History Alcohol use: No CD- Drugs: No Caffeine use: Yes Place of Residence: Home Review of Systems 10-point ROS is otherwise unremarkable Physical Examination Temp Pulse Resp BP Pulse Ox 97.9 F 65 14 110/58 L 97 12/05/19 09:13 12/05/19 09:13 12/05/19 09:20 12/05/19 09:13 12/05/19 09:20 General: In no apparent distress, Oriented x3 HEENT: Atraumatic Musculoskeletal: Other (wound on lower leg saturated with clear serious drainage, well approximated) - Problems (1) Femur fracture, left Current Visit: Yes Status: Acute Conclusions/Impression: stop lovenox due to ooze, explained to patient this places her at higher risk for DVT and PE, she accepted that. she has been up and active on her walker and pleged to continue activity, the will pull hua wednesday but if the lower wound is still draining they will hold that, bactrim is, continue Bactrim untill script is done Clindamycin 300mg qid X10 days, and x-ray left femur, follow up in office after discharge.
--- NOTE | 2019-12-05 14:37 | RAD REPORT ---
EXAM DESCRIPTION: RAD - Femur Left - 12/05/2019 2:03 pm CLINICAL HISTORY: r/o infection Left leg pain COMPARISON: No comparisons FINDINGS: Skin hua are noted along the lateral thigh. Extensive hardware is present in the left femur without evidence of lucency surrounding the hardware. No acute fracture seen.
[2019-12-05] MEDS: ATORVASTATIN 10 MG TAB PO SCH (20:09)
--- NOTE | 2019-12-05 22:40 | R.PN ---
ENCOUNTER DATE AND TIME: 12/05/2019 22:37 (CDT) NAME DESIREE CARVALHO DATE OF : 1950 DATE OF ADMISSION: 11/28/2019 18:45 (CDT) LEFT DISTAL FEMORAL SHAFT PERIPROSTHETIC FRACTURECHIEF COMPLAINT: Left femur fracture SUBJECTIVE: Pt denied any Shortness of Breath. Pt denied any depression. WBC is normal at 10.2, Hgb 9.7. Ferrous sulfate and Hemocyte plus is being used. Ambulated 140' with contact guard assistance using a rolling walker. She had no new complaint. VITAL SIGNS Temperature: 98.6 F SBP/DBP: 121/86 Pulse: 63 Resp: 16 MEDICATION ALLERGIES: XANAX ZINC ENVIRONMENTAL ALLERGIES: - Substance Allergies None Known - Other Allergies None Known NURSING: - Shower allowing shower - Skin care per protocol PRECAUTIONS: - Weight Bearing Precaution WBAT left LE ACTIVITIES OOB only with supervision THERAPIES: - Dietary and Nutrition Adequate Nutrition. Nutritional Education. Nutritional Supplements. PHYSICAL EXAM - Gen Alert and awake Lying in bed No apparent distress Oriented to: person, time, and place - Skin Left hip incision intact with hua. She has mild itching at incision site. Normacephalic - Eyes No abnormalities - ENMT No abnormalities - Neck No abnormalities No cervical adenopathy - CVS RRR - Chest No abnormalities - Resp Clear to auscultation - Abd Soft - GI Non distended Deferred - No abnormalities - Ext Mild left lower extremity edema. - MSK 4+/5 weakness in left lower extremity - Neuro 4/5 strength left lower extremity. - Psych No abnormalities ASSESSMENT: Pt. is a 69 yo Right-handed white female.On 11/22/2019 she was admitted to [facility] emergency surgery for LEFT DISTAL FEMORAL SHAFT PERIPROSTHETIC FRACTURE (Femur (Shaft) Fracture) Bairon PÉREZ.Pre-morbidly, Pt. was independent/mod-I in Locomotion, Balance, Social Cognitio n, Transfers Control, Sphincter Control, Self-Care, and Communication; and she had good Endurance and Safety Awareness.Currently, she has deficits of Locomotion, Balance, Transfers Control, Self-Care, a nd Endurance.Pt. is now referred to [facility] for acute in-patient rehabilita tion in order to maximize patient's functional independence in activities of daily living, strength, ROM, and mobility.- Rehab Goal Patient has realistic goal of being discharged at assistance level 7-Ind to reside at [facility] w ith Family/Relatives. MDM/PLAN: - Physical Therapy Decreased range of motion - to improve, our physical therapists will perform initial evaluation of p t's status upon admission and devise an individualized program for increasing patient's Range of [place] on. Gait dysfunction - to improve, our physical therapists will perform initial evaluation of pt's statu s upon admission and devise an individualized program for Gait Training, and Wheel Chair mobility Inability to transfer - to improve, our physical therapists will perform initial evaluation of pt's status upon admission and devise an individualized program for Bed mobility Need for home safety evaluation - to improve, our physical therapists will perform initial evaluatio n of pt's status upon admission and devise an individualized program for Home Evaluation Need in caregiver upon discharge - to improve, our physical therapists will perform initial evaluati on of pt's status upon admission and devise an individualized program for Caregiver Training Edema - to improve, our physical therapists will perform initial evaluation of pt's status upon admi ssion and devise an individualized program for Elevation Training, and Lymphedema Therapy New precaution - to improve, our physical therapists will perform initial evaluation of pt's status upon admission and devise an individualized program for Patient precaution education Poor balance - to improve, our physical therapists will perform initial evaluation of pt's status up on admission and devise an individualized program for Balance Training Poor endurance - to improve, our physical therapists will perform initial evaluation of pt's status upon admission and devise an individualized program for Endurance Training Weakness - to improve, our physical therapists will perform initial evaluation of pt's status upon a dmission and devise an individualized program for Aquatic Therapy, Neuromuscular Reeducation, and Str engthening Achieving independence - to improve, our physical therapists will perform initial evaluation of pt's status upon admission and devise an individualized program for Community Reintegration Activities - Occupational Therapy ADL deficits - to improve, our occupation therapists will perform initial evaluation of pt's status upon admission and devise an individualized program for Bathing, Bed mobility, Community Reintegratio n, Cooking, Dressing, Eating, Fine Motor Skills, Grooming, Homemaking, Kitchen Mobility, Laundry, Pat ient Education, Safety Awareness, Splinting - Positioning, Transfers(Toilet, Tub, Shower), and Wheel Chair Management Need for transitional care liaison - to improve, our occupation therapists will perform initial evaluation of pt's status upon admission and devise an individualized program for Caregiver Training Weakness - to improve, our occupation therapists will perform initial evaluation of pt's status upon admission and devise an individualized program for Aquatic Therapy, Balance, Endurance, UE ROM, and UE strengthening - Other See attached MAR (Medication Administration Record) - Diet Type Continue Regular - Diet - Liquid Texture Continue Regular - Tube Feed Continue N/A - Weight Bearing Precaution WBAT left LE - Skin care per protocol - Diet - Solid Texture Continue Regular - Shower allowing shower FUNCTIONAL STATUS: UPDATED AT WEEKLY TEAM CONFERENCE - Bladder Same accident frequency: 7-Ind - No accidents in the past 7 days - Bowel Same accident frequency: 7-Ind - No accidents in the past 7 days - Walking Same score based on distance walked: 0(N/A) - Wheelchair Same score based on distance traveled: 0(N/A) FUNCTIONAL STATUS: - Self-Care A. Eating Ind B. Grooming Sushma C. Bathing modA D. Dressing - Upper modA E. Dressing - Lower Dep F. Toileting maxA - Sphincter Control G. Bladder control Mary Kay H. Bowel control sup - Transfers Control I. Bed/Chair/Wheelchair maxA J. Toilet maxA K. Tub/Shower maxA - Locomotion L. Walk/Wheelchair (B) modA M. Stairs ADNO - Communication N. Comprehension (B) Sushma O. Expression (B) Sushma - Social Cognition P. Social Interaction Ind Q. Problem Solving Ind R. Memory Sushma - Endurance Fair - Balance Fair - Safety Awareness Fair QI SCORES: - Self-Care A. Eating 05-Setup or clean-up assistance B. Oral hygiene 05-Setup or clean-up assistance C. Toileting hygiene 03-Partial/moderate assistance E. Shower/bathe self 88-Not attempted due to medical condition or safety concerns F. Upper body dressing 03-Partial/moderate assistance G. Lower body dressing 02-Substantial/maximal assistance H. Putting on/taking off footwear 02-Substantial/maximal assistance - Mobility A. Roll left and right 04-Supervision or touching assistance B. Sit to lying 04-Supervision or touching assistance C. Lying to sitting on side of bed 04-Supervision or touching assistance D. Sit to stand 03-Partial/moderate assistance E. Chair/rtq-ax-ekccf transfer 03-Partial/moderate assistance F. Toilet transfer 03-Partial/moderate assistance G. Car transfer 88-Not attempted due to medical condition or safety concerns I. Walk 10 feet 88-Not attempted due to medical condition or safety concerns J. Walk 50 feet with two turns 88-Not attempted due to medical condition or safety concerns K. Walk 150 feet 88-Not attempted due to medical condition or safety concerns L. Walking 10 feet on uneven surfaces 88-Not attempted due to medical condition or safety concerns M. 1 step (curb) 88-Not attempted due to medical condition or safety concerns N. 4 steps 88-Not attempted due to medical condition or safety concerns O. 12 steps 88-Not attempted due to medical condition or safety concerns P. Picking up object 88-Not attempted due to medical condition or safety concerns R. Wheel 50 feet with two turns S. Wheel 150 feet - Bladder and Bowel Bladder continence 1-Stress incontinence only Bowel continence 0-Always continent - Endurance Poor - Balance Fair - Safety Awareness Good CURRENT FUNC. DEFICITS: Self-Care, Mobility, Endurance, and Balance SIGNATURE PANEL: (CDT)
[2019-12-06] MEDS: HYDROCODONE/APAP 5/325 MG TAB PO PRN ×3 (01:35→20:16)
[2019-12-06] MEDS: PANTOPRAZOLE 40MG TABLET PO SCH (07:47)
[2019-12-06] MEDS: FERROUS SULFATE 325 MG TAB PO SCH (08:02)
[2019-12-06] MEDS: CALCIUM CARB 500MG/VIT D 200 IU TAB PO SCH (08:03)
[2019-12-06] MEDS: GABAPENTIN 300 MG CAP PO SCH ×2 (08:03→20:16)
[2019-12-06] MEDS: MELOXICAM 7.5 MG TAB PO SCH (08:03)
[2019-12-06] MEDS: SMZ./TMP. 800/160 MG TABLET PO SCH ×2 (08:03→20:16)
[2019-12-06] MEDS: FE SULF/FA/VIT B COMP & C TAB PO SCH (08:04)
[2019-12-06] MEDS: PROMOD 30 ML DOSE PO SCH ×2 (08:05→20:17)
[2019-12-06] MEDS: TRAMADOL HCL 50 MG TAB PO PRN ×2 (12:57→21:42)
--- NOTE | 2019-12-06 14:37 | FAST ---
ENCOUNTER DATE AND TIME: 12/06/2019 08:00 (CDT) NAME DESIREE CARVALHO DATE OF : 1950 DATE OF ADMISSION: 11/28/2019 18:45 (CDT) PHONE: AGE: 69 N# [id number] GENDER: Female ENCOUNTER PHYSICIAN: Dr. Moi Barry M.D. ADMISSION DIAGNOSIS: - Orthopaedic Disorders 08 - Femur (Shaft) Fracture (08.2) LEFT DISTAL FEMORAL SHAFT PERIPROSTHETIC FRACTURE. EATING: Not assessed/no information CODE: - ORAL HYGIENE: ORAL HYGIENE - STEP 1: Does the patient complete the activity by him/herself with no assistance (physical, verbal/nonverbal cueing, setup/clean-up)? Yes. 1. [id number] ADMISSION PERFORMANCE: Independent CODE: 06 TOILETING HYGIENE: TOILETING HYGIENE - STEP 1: Does the patient complete the activity by him/herself with no assistance (physical, verbal/nonverbal cueing, setup/clean-up)? Yes. 1. [id number] ADMISSION PERFORMANCE: Independent CODE: 06 BATHING: SHOWER/BATHE SELF - STEP 1: Does the patient complete the activity by him/herself with no assistance (physical, verbal/nonverbal cueing, setup/clean-up)? Yes. 1. [id number] ADMISSION PERFORMANCE: Independent CODE: 06 DRESSING - UPPER BODY: DRESSING - UPPER BODY - STEP 1: Does the patient complete the activity by him/herself with no assistance (physical, verbal/nonverbal cueing, setup/clean-up)? Yes. 1. [id number] ADMISSION PERFORMANCE: Independent CODE: 06 DRESSING - LOWER BODY: DRESSING - LOWER BODY - STEP 1: Does the patient complete the activity by him/herself with no assistance (physical, verbal/nonverbal cueing, setup/clean-up)? Yes. 1. [id number] ADMISSION PERFORMANCE: Independent CODE: 06 PUTTING ON/TAKING OFF FOOTWEAR: FOOTWEAR - STEP 1: Does the patient complete the activity by him/herself with no assistance (physical, verbal/nonverbal cueing, setup/clean-up)? Yes. 1. [id number] ADMISSION PERFORMANCE: Independent CODE: 06 DOES THE PATIENT USE A WHEELCHAIR/SCOOTER? CODE: EXPR INDICATE THE TYPE OF WHEELCHAIR/SCOOTER USED: CODE: EXPR INDICATE THE TYPE OF WHEELCHAIR/SCOOTER USED: CODE: EXPR BLADDER AND BOWEL: CODE: EXPR CODE: EXPR SIGNATURE PANEL: The following modified sections: 1. [id number] Admission Performance, 1. [id number] Admission Performance, 1. [id number] Admission Performance, 1. [id number] Admission Performance, 1. [id number] Admission Performance, 1. [id number] Admission Performance were [electronically] signed by ISAMAR Rubi on WedDec 06 2019 14:36:52 [facility]-0500 (Central Daylight Time)
--- NOTE | 2019-12-06 18:03 | R.PN ---
ENCOUNTER DATE AND TIME: 12/06/2019 17:59 (CDT) NAME DESIREE CARVALHO DATE OF : 1950 DATE OF ADMISSION: 11/28/2019 18:45 (CDT) LEFT DISTAL FEMORAL SHAFT PERIPROSTHETIC FRACTURECHIEF COMPLAINT: Left femur fracture SUBJECTIVE: Pt denied any Shortness of Breath. Pt denied any depression. WBC is normal at 10.2, Hgb 9.7. Ferrous sulfate and Hemocyte plus is being used. Ambulated 300' with standby assistance using a rolling walker. Up and down 5 steps with contact guard assistance. Self-propelled a wheelchair 500' with independence. She had no new complaint. VITAL SIGNS Temperature: 98.8 F SBP/DBP: 139/52 Pulse: 68 Resp: 16 MEDICATION ALLERGIES: XANAX ZINC ENVIRONMENTAL ALLERGIES: - Substance Allergies None Known - Other Allergies None Known NURSING: - Shower allowing shower - Skin care per protocol PRECAUTIONS: - Weight Bearing Precaution WBAT left LE ACTIVITIES OOB only with supervision THERAPIES: - Dietary and Nutrition Adequate Nutrition. Nutritional Education. Nutritional Supplements. PHYSICAL EXAM - Gen Alert and awake Lying in bed No apparent distress Oriented to: person, time, and place - Skin Left hip incision intact with hua. She has mild itching at incision site. Normacephalic - Eyes No abnormalities - ENMT No abnormalities - Neck No abnormalities No cervical adenopathy - CVS RRR - Chest No abnormalities - Resp Clear to auscultation - Abd Soft - GI Non distended Deferred - No abnormalities - Ext Mild left lower extremity edema. - MSK 4+/5 weakness in left lower extremity - Neuro 4/5 strength left lower extremity. - Psych No abnormalities ASSESSMENT: Pt. is a 69 yo Right-handed white female.On 11/22/2019 she was admitted to [facility] emergency surgery for LEFT DISTAL FEMORAL SHAFT PERIPROSTHETIC FRACTURE (Femur (Shaft) Fracture) Bairon PÉREZ.Pre-morbidly, Pt. was independent/mod-I in Locomotion, Balance, Social Cognitio n, Transfers Control, Sphincter Control, Self-Care, and Communication; and she had good Endurance and Safety Awareness.Currently, she has deficits of Locomotion, Balance, Transfers Control, Self-Care, a nd Endurance.Pt. is now referred to [facility] for acute in-patient rehabilita tion in order to maximize patient's functional independence in activities of daily living, strength, ROM, and mobility.- Rehab Goal Patient has realistic goal of being discharged at assistance level 7-Ind to reside at [facility] w ith Family/Relatives. MDM/PLAN: - Physical Therapy Decreased range of motion - to improve, our physical therapists will perform initial evaluation of p t's status upon admission and devise an individualized program for increasing patient's Range of Phillip on. Gait dysfunction - to improve, our physical therapists will perform initial evaluation of pt's statu s upon admission and devise an individualized program for Gait Training, and Wheel Chair mobility Inability to transfer - to improve, our physical therapists will perform initial evaluation of pt's status upon admission and devise an individualized program for Bed mobility Need for home safety evaluation - to improve, our physical therapists will perform initial evaluatio n of pt's status upon admission and devise an individualized program for Home Evaluation Need in caregiver upon discharge - to improve, our physical therapists will perform initial evaluati on of pt's status upon admission and devise an individualized program for Caregiver Training Edema - to improve, our physical therapists will perform initial evaluation of pt's status upon admi ssion and devise an individualized program for Elevation Training, and Lymphedema Therapy New precaution - to improve, our physical therapists will perform initial evaluation of pt's status upon admission and devise an individualized program for Patient precaution education Poor balance - to improve, our physical therapists will perform initial evaluation of pt's status up on admission and devise an individualized program for Balance Training Poor endurance - to improve, our physical therapists will perform initial evaluation of pt's status upon admission and devise an individualized program for Endurance Training Weakness - to improve, our physical therapists will perform initial evaluation of pt's status upon a dmission and devise an individualized program for Aquatic Therapy, Neuromuscular Reeducation, and Str engthening Achieving independence - to improve, our physical therapists will perform initial evaluation of pt's status upon admission and devise an individualized program for Community Reintegration Activities - Occupational Therapy ADL deficits - to improve, our occupation therapists will perform initial evaluation of pt's status upon admission and devise an individualized program for Bathing, Bed mobility, Community Reintegratio n, Cooking, Dressing, Eating, Fine Motor Skills, Grooming, Homemaking, Kitchen Mobility, Laundry, Pat ient Education, Safety Awareness, Splinting - Positioning, Transfers(Toilet, Tub, Shower), and Wheel Chair Management Need for manager critical care - to improve, our occupation therapists will perform initial evaluation of pt's status upon admission and devise an individualized program for Caregiver Training Weakness - to improve, our occupation therapists will perform initial evaluation of pt's status upon admission and devise an individualized program for Aquatic Therapy, Balance, Endurance, UE ROM, and UE strengthening - Other See attached MAR (Medication Administration Record) - Diet Type Continue Regular - Diet - Liquid Texture Continue Regular - Tube Feed Continue N/A - Weight Bearing Precaution WBAT left LE - Skin care per protocol - Diet - Solid Texture Continue Regular - Shower allowing shower FUNCTIONAL STATUS: UPDATED AT WEEKLY TEAM CONFERENCE - Bladder Same accident frequency: 7-Ind - No accidents in the past 7 days - Bowel Same accident frequency: 7-Ind - No accidents in the past 7 days - Walking Same score based on distance walked: 0(N/A) - Wheelchair Same score based on distance traveled: 0(N/A) FUNCTIONAL STATUS: - Self-Care A. Eating Ind B. Grooming Sushma C. Bathing modA D. Dressing - Upper modA E. Dressing - Lower Dep F. Toileting maxA - Sphincter Control G. Bladder control Mary Kay H. Bowel control sup - Transfers Control I. Bed/Chair/Wheelchair maxA J. Toilet maxA K. Tub/Shower maxA - Locomotion L. Walk/Wheelchair (B) modA M. Stairs ADNO - Communication N. Comprehension (B) Sushma O. Expression (B) Sushma - Social Cognition P. Social Interaction Ind Q. Problem Solving Ind R. Memory Sushma - Endurance Fair - Balance Fair - Safety Awareness Fair QI SCORES: - Self-Care A. Eating 05-Setup or clean-up assistance B. Oral hygiene 05-Setup or clean-up assistance C. Toileting hygiene 03-Partial/moderate assistance E. Shower/bathe self 88-Not attempted due to medical condition or safety concerns F. Upper body dressing 03-Partial/moderate assistance G. Lower body dressing 02-Substantial/maximal assistance H. Putting on/taking off footwear 02-Substantial/maximal assistance - Mobility A. Roll left and right 04-Supervision or touching assistance B. Sit to lying 04-Supervision or touching assistance C. Lying to sitting on side of bed 04-Supervision or touching assistance D. Sit to stand 03-Partial/moderate assistance E. Chair/ovw-cv-uprsm transfer 03-Partial/moderate assistance F. Toilet transfer 03-Partial/moderate assistance G. Car transfer 88-Not attempted due to medical condition or safety concerns I. Walk 10 feet 88-Not attempted due to medical condition or safety concerns J. Walk 50 feet with two turns 88-Not attempted due to medical condition or safety concerns K. Walk 150 feet 88-Not attempted due to medical condition or safety concerns L. Walking 10 feet on uneven surfaces 88-Not attempted due to medical condition or safety concerns M. 1 step (curb) 88-Not attempted due to medical condition or safety concerns N. 4 steps 88-Not attempted due to medical condition or safety concerns O. 12 steps 88-Not attempted due to medical condition or safety concerns P. Picking up object 88-Not attempted due to medical condition or safety concerns R. Wheel 50 feet with two turns S. Wheel 150 feet - Bladder and Bowel Bladder continence 1-Stress incontinence only Bowel continence 0-Always continent - Endurance Poor - Balance Fair - Safety Awareness Good CURRENT FUNC. DEFICITS: Self-Care, Mobility, Endurance, and Balance SIGNATURE PANEL: (CDT)
[2019-12-06] MEDS: ATORVASTATIN 10 MG TAB PO SCH (20:16)
[2019-12-07 06:08] LABS: Absolute Lymphocytes (CBC) 1.6 K/uL (0.7-4.9); Basophils % 1.2 % (0-1.3); Lymphocytes % 19.9 % (15.3-44.8); MPV 9.9 fL (7.6-11.3); RBC Red Blood Cell Count 3.09 M/uL (3.86-4.86)
[2019-12-07] MEDS: PANTOPRAZOLE 40MG TABLET PO SCH (06:43)
[2019-12-07 07:18] LABS: Potassium 4.4 mmol/L (3.5-5.1)
[2019-12-07 07:19] LABS: Albumin 2.4 g/dL (3.4-5.0); Magnesium 2.1 mg/dL (1.8-2.4); Prealbumin 18.4 mg/dL (20-40)
[2019-12-07] MEDS: TRAMADOL HCL 50 MG TAB PO PRN (07:37)
[2019-12-07] MEDS: MELOXICAM 7.5 MG TAB PO SCH (07:38)
[2019-12-07] MEDS: FERROUS SULFATE 325 MG TAB PO SCH (07:39)
[2019-12-07] MEDS: SMZ./TMP. 800/160 MG TABLET PO SCH ×2 (07:39→21:12)
[2019-12-07] MEDS: FE SULF/FA/VIT B COMP & C TAB PO SCH (07:39)
[2019-12-07] MEDS: GABAPENTIN 300 MG CAP PO SCH ×2 (07:39→21:12)
[2019-12-07] MEDS: PROMOD 30 ML DOSE PO SCH ×2 (07:39→21:12)
[2019-12-07] MEDS: CALCIUM CARB 500MG/VIT D 200 IU TAB PO SCH (07:39)
[2019-12-07] MEDS: HYDROCODONE/APAP 5/325 MG TAB PO PRN ×2 (11:59→23:18)
--- NOTE | 2019-12-07 14:47 | FAST ---
ENCOUNTER DATE AND TIME: 12/07/2019 08:00 (CDT) NAME DESIREE CARVALHO DATE OF : 1950 DATE OF ADMISSION: 11/28/2019 18:45 (CDT) PHONE: AGE: 69 N# [id number] GENDER: Female ENCOUNTER PHYSICIAN: Dr. Moi Barry M.D. ADMISSION DIAGNOSIS: - Orthopaedic Disorders 08 - Femur (Shaft) Fracture (08.2) LEFT DISTAL FEMORAL SHAFT PERIPROSTHETIC FRACTURE. ROLL LEFT AND RIGHT: ROLL LEFT AND RIGHT - STEP 1: Does the patient complete the activity by him/herself with no assistance (physical, verbal/nonverbal cueing, setup/clean-up)? Yes. 1. [id number] ADMISSION PERFORMANCE: Independent CODE: 06 SIT TO LYING: SIT TO LYING - STEP 1: Does the patient complete the activity by him/herself with no assistance (physical, verbal/nonverbal cueing, setup/clean-up)? Yes. 1. [id number] ADMISSION PERFORMANCE: Independent CODE: 06 LYING TO SITTING: LYING TO SITTING ON SIDE OF BED - STEP 1: Does the patient complete the activity by him/herself with no assistance (physical, verbal/nonverbal cueing, setup/clean-up)? Yes. 1. [id number] ADMISSION PERFORMANCE: Independent CODE: 06 SIT TO STAND: SIT TO STAND - STEP 1: Does the patient complete the activity by him/herself with no assistance (physical, verbal/nonverbal cueing, setup/clean-up)? Yes. 1. [id number] ADMISSION PERFORMANCE: Independent CODE: 06 TRANSFERS: BED, CHAIR: CHAIR/[id number] TRANSFER - STEP 1: Does the patient complete the activity by him/herself with no assistance (physical, verbal/nonverbal cueing, setup/clean-up)? No. CHAIR/[id number] TRANSFER - STEP 2: Does the patient need only setup/clean-up assistance from one helper? Yes. 1. [id number] ADMISSION PERFORMANCE: Setup or clean-up assistance CODE: 05 TRANSFER TOILET: TOILET TRANSFER - STEP 1: Does the patient complete the activity by him/herself with no assistance (physical, verbal/nonverbal cueing, setup/clean-up)? Yes. 1. [id number] ADMISSION PERFORMANCE: Independent CODE: 06 TRANSFERS: CAR: CAR TRANSFER - STEP 1: Does the patient complete the activity by him/herself with no assistance (physical, verbal/nonverbal cueing, setup/clean-up)? No. CAR TRANSFER - STEP 2: Does the patient need only setup/clean-up assistance from one helper? Yes. 1. [id number] ADMISSION PERFORMANCE: Setup or clean-up assistance CODE: 05 WALK 10 FEET: WALK 10 FEET - STEP 1: Does the patient complete the activity by him/herself with no assistance (physical, verbal/nonverbal cueing, setup/clean-up)? No. WALK 10 FEET - STEP 2: Does the patient need only setup/clean-up assistance from one helper? Yes. 1. [id number] ADMISSION PERFORMANCE: Setup or clean-up assistance CODE: 05 WALK 50 FEET: WALK 50 FEET - STEP 1: Does the patient complete the activity by him/herself with no assistance (physical, verbal/nonverbal cueing, setup/clean-up)? No. WALK 50 FEET - STEP 2: Does the patient need only setup/clean-up assistance from one helper? Yes. 1. [id number] ADMISSION PERFORMANCE: Setup or clean-up assistance CODE: 05 WALK 150 FEET: WALK 150 FEET - STEP 1: Does the patient complete the activity by him/herself with no assistance (physical, verbal/nonverbal cueing, setup/clean-up)? No. WALK 150 FEET - STEP 2: Does the patient need only setup/clean-up assistance from one helper? Yes. 1. [id number] ADMISSION PERFORMANCE: Setup or clean-up assistance CODE: 05 WALK 10 FEET UNEVEN: Not attempted due to medical condition or safety concerns CODE: 88 1 STEP (CURB): 1 STEP CURB - STEP 1: Does the patient complete the activity by him/herself with no assistance (physical, verbal/nonverbal cueing, setup/clean-up)? No. 1 STEP CURB - STEP 2: Does the patient need only setup/clean-up assistance from one helper? No. 1 STEP CURB - STEP 3: Does the patient need only verbal/nonverbal cueing or touching/steadying/contact guard assistance fro m one helper? Yes. 1. [id number] ADMISSION PERFORMANCE: Supervision or touching assistance CODE: 04 4 STEPS: Not attempted due to medical condition or safety concerns CODE: 88 12 STEPS: PICKING UP OBJECT: Not attempted due to medical condition or safety concerns CODE: 88 DOES THE PATIENT USE A WHEELCHAIR/SCOOTER? Q1. DOES THE PATIENT USE A WHEELCHAIR/SCOOTER?: Yes CODE: 1 WHEEL 50 FEET WITH TWO TURNS: WHEEL 50 FEET WITH TWO TURNS - STEP 1: Does the patient complete the activity by him/herself with no assistance (physical, verbal/nonverbal cueing, setup/clean-up)? Yes. 1. [id number] ADMISSION PERFORMANCE: Independent CODE: 06 INDICATE THE TYPE OF WHEELCHAIR/SCOOTER USED: RR1. INDICATE THE TYPE OF WHEELCHAIR/SCOOTER USED.: Manual CODE: 1 WHEEL 150 FEET: WHEEL 150 FEET - STEP 1: Does the patient complete the activity by him/herself with no assistance (physical, verbal/nonverbal cueing, setup/clean-up)? Yes. 1. [id number] ADMISSION PERFORMANCE: Independent CODE: 06 INDICATE THE TYPE OF WHEELCHAIR/SCOOTER USED: SS1. INDICATE THE TYPE OF WHEELCHAIR/SCOOTER USED.: Manual CODE: 1 BLADDER AND BOWEL: CODE: EXPR CODE: EXPR SIGNATURE PANEL: The following modified sections: 1. [id number] Admission Performance, 1. [id number] Admission Performance, 1. [id number] Admission Performance, 1. [id number] Admission Performance, 1. [id number] Admission Performance, 1. [id number] Admission Performance, 1. [id number] Admission Performance, 1. [id number] Admission Performance , 1. [id number] Admission Performance, 1. [id number] Admission Performance, 1. [id number] Admission Performanc e, Q1. Does the patient use a wheelchair/scooter?, 1. [id number] Admission Performance, RR1. Indicate th e type of wheelchair/scooter used., 1. [id number] Admission Performance, Code, SS1. Indicate the type of wheelchair/scooter used. were [electronically] signed by Laurita Quiñones PTA on WedDec 07 2019 4:46:37 GMT-0500 (Central Daylight Time)
[2019-12-07 16:57] LABS: Albumin 2.4 g/dL (3.4-5.0); Potassium 4.2 mmol/L (3.5-5.1); Prealbumin 17.7 mg/dL (20-40)
[2019-12-07 17:56] LABS: Absolute Lymphocytes (CBC) 1.6 K/uL (0.7-4.9); Basophils % 0.9 % (0-1.3); Hematocrit 29.3 % (36.0-45.0); Lymphocytes % 16.1 % (15.3-44.8); MPV 10.7 fL (7.6-11.3); RBC Red Blood Cell Count 3.04 M/uL (3.86-4.86)
--- NOTE | 2019-12-07 18:08 | R.PN ---
ENCOUNTER DATE AND TIME: 12/07/2019 18:02 (CDT) NAME DESIREE CARVALHO DATE OF : 1950 DATE OF ADMISSION: 11/28/2019 18:45 (CDT) LEFT DISTAL FEMORAL SHAFT PERIPROSTHETIC FRACTURECHIEF COMPLAINT: Left femur fracture SUBJECTIVE: Pt denied any Shortness of Breath. Pt denied any depression. WBC is normal at 9.7, Hgb 9.7, prealbumin 17.7. Ferrous sulfate and Hemocyte plus is being used. Left femur x-ray show hardware in place and no fractures. Ambulated 300' with standby assistance using a rolling walker. Up and down 5 steps with contact guard assistance. Self-propelled a wheelchair 500' with independence. She had no new complaint. VITAL SIGNS Temperature: 99.6 F SBP/DBP: 143/60 Pulse: 65 Resp: 15 MEDICATION ALLERGIES: XANAX ZINC ENVIRONMENTAL ALLERGIES: - Substance Allergies None Known - Other Allergies None Known NURSING: - Shower allowing shower - Skin care per protocol PRECAUTIONS: - Weight Bearing Precaution WBAT left LE ACTIVITIES OOB only with supervision THERAPIES: - Dietary and Nutrition Adequate Nutrition. Nutritional Education. Nutritional Supplements. PHYSICAL EXAM - Gen Alert and awake Lying in bed No apparent distress Oriented to: person, time, and place - Skin Left hip incision intact with hua. She has mild itching at incision site. Normacephalic - Eyes No abnormalities - ENMT No abnormalities - Neck No abnormalities No cervical adenopathy - CVS RRR - Chest No abnormalities - Resp Clear to auscultation - Abd Soft - GI Non distended Deferred - No abnormalities - Ext Mild left lower extremity edema. - MSK 4+/5 weakness in left lower extremity - Neuro 4/5 strength left lower extremity. - Psych No abnormalities ASSESSMENT: Pt. is a 69 yo Right-handed white female.On 11/22/2019 she was admitted to [facility] emergency surgery for LEFT DISTAL FEMORAL SHAFT PERIPROSTHETIC FRACTURE (Femur (Shaft) Fracture) Bairon PÉREZ.Pre-morbidly, Pt. was independent/mod-I in Locomotion, Balance, Social Cognitio n, Transfers Control, Sphincter Control, Self-Care, and Communication; and she had good Endurance and Safety Awareness.Currently, she has deficits of Locomotion, Balance, Transfers Control, Self-Care, a nd Endurance.Pt. is now referred to [facility] for acute in-patient rehabilita tion in order to maximize patient's functional independence in activities of daily living, strength, ROM, and mobility.- Rehab Goal Patient has realistic goal of being discharged at assistance level 7-Ind to reside at [facility] w ith Family/Relatives. MDM/PLAN: - Physical Therapy Decreased range of motion - to improve, our physical therapists will perform initial evaluation of p t's status upon admission and devise an individualized program for increasing patient's Range of Phillip on. Gait dysfunction - to improve, our physical therapists will perform initial evaluation of pt's statu s upon admission and devise an individualized program for Gait Training, and Wheel Chair mobility Inability to transfer - to improve, our physical therapists will perform initial evaluation of pt's status upon admission and devise an individualized program for Bed mobility Need for home safety evaluation - to improve, our physical therapists will perform initial evaluatio n of pt's status upon admission and devise an individualized program for Home Evaluation Need in caregiver upon discharge - to improve, our physical therapists will perform initial evaluati on of pt's status upon admission and devise an individualized program for Caregiver Training Edema - to improve, our physical therapists will perform initial evaluation of pt's status upon admi ssion and devise an individualized program for Elevation Training, and Lymphedema Therapy New precaution - to improve, our physical therapists will perform initial evaluation of pt's status upon admission and devise an individualized program for Patient precaution education Poor balance - to improve, our physical therapists will perform initial evaluation of pt's status up on admission and devise an individualized program for Balance Training Poor endurance - to improve, our physical therapists will perform initial evaluation of pt's status upon admission and devise an individualized program for Endurance Training Weakness - to improve, our physical therapists will perform initial evaluation of pt's status upon a dmission and devise an individualized program for Aquatic Therapy, Neuromuscular Reeducation, and Str engthening Achieving independence - to improve, our physical therapists will perform initial evaluation of pt's status upon admission and devise an individualized program for Community Reintegration Activities - Occupational Therapy ADL deficits - to improve, our occupation therapists will perform initial evaluation of pt's status upon admission and devise an individualized program for Bathing, Bed mobility, Community Reintegratio n, Cooking, Dressing, Eating, Fine Motor Skills, Grooming, Homemaking, Kitchen Mobility, Laundry, Pat ient Education, Safety Awareness, Splinting - Positioning, Transfers(Toilet, Tub, Shower), and Wheel Chair Management Need for specialist wound care - to improve, our occupation therapists will perform initial evaluation of pt's status upon admission and devise an individualized program for Caregiver Training Weakness - to improve, our occupation therapists will perform initial evaluation of pt's status upon admission and devise an individualized program for Aquatic Therapy, Balance, Endurance, UE ROM, and UE strengthening - Other See attached MAR (Medication Administration Record) - Diet Type Continue Regular - Diet - Liquid Texture Continue Regular - Tube Feed Continue N/A - Weight Bearing Precaution WBAT left LE - Skin care per protocol - Diet - Solid Texture Continue Regular - Shower allowing shower FUNCTIONAL STATUS: UPDATED AT WEEKLY TEAM CONFERENCE - Bladder Same accident frequency: 7-Ind - No accidents in the past 7 days - Bowel Same accident frequency: 7-Ind - No accidents in the past 7 days - Walking Same score based on distance walked: 0(N/A) - Wheelchair Same score based on distance traveled: 0(N/A) FUNCTIONAL STATUS: - Self-Care A. Eating Ind B. Grooming Sushma C. Bathing modA D. Dressing - Upper modA E. Dressing - Lower Dep F. Toileting maxA - Sphincter Control G. Bladder control Mary Kay H. Bowel control sup - Transfers Control I. Bed/Chair/Wheelchair maxA J. Toilet maxA K. Tub/Shower maxA - Locomotion L. Walk/Wheelchair (B) modA M. Stairs ADNO - Communication N. Comprehension (B) Sushma O. Expression (B) uSshma - Social Cognition P. Social Interaction Ind Q. Problem Solving Ind R. Memory Sushma - Endurance Fair - Balance Fair - Safety Awareness Fair QI SCORES: - Self-Care A. Eating 05-Setup or clean-up assistance B. Oral hygiene 05-Setup or clean-up assistance C. Toileting hygiene 03-Partial/moderate assistance E. Shower/bathe self 88-Not attempted due to medical condition or safety concerns F. Upper body dressing 03-Partial/moderate assistance G. Lower body dressing 02-Substantial/maximal assistance H. Putting on/taking off footwear 02-Substantial/maximal assistance - Mobility A. Roll left and right 04-Supervision or touching assistance B. Sit to lying 04-Supervision or touching assistance C. Lying to sitting on side of bed 04-Supervision or touching assistance D. Sit to stand 03-Partial/moderate assistance E. Chair/yly-vx-kgxju transfer 03-Partial/moderate assistance F. Toilet transfer 03-Partial/moderate assistance G. Car transfer 88-Not attempted due to medical condition or safety concerns I. Walk 10 feet 88-Not attempted due to medical condition or safety concerns J. Walk 50 feet with two turns 88-Not attempted due to medical condition or safety concerns K. Walk 150 feet 88-Not attempted due to medical condition or safety concerns L. Walking 10 feet on uneven surfaces 88-Not attempted due to medical condition or safety concerns M. 1 step (curb) 88-Not attempted due to medical condition or safety concerns N. 4 steps 88-Not attempted due to medical condition or safety concerns O. 12 steps 88-Not attempted due to medical condition or safety concerns P. Picking up object 88-Not attempted due to medical condition or safety concerns R. Wheel 50 feet with two turns S. Wheel 150 feet - Bladder and Bowel Bladder continence 1-Stress incontinence only Bowel continence 0-Always continent - Endurance Poor - Balance Fair - Safety Awareness Good CURRENT FUNC. DEFICITS: Self-Care, Mobility, Endurance, and Balance SIGNATURE PANEL: (CDT)
[2019-12-07] MEDS: ATORVASTATIN 10 MG TAB PO SCH (21:12)
[2019-12-08] MEDS: PANTOPRAZOLE 40MG TABLET PO SCH (06:51)
[2019-12-08 07:07] VITALS: BP 119/59; TEMP 98.8
[2019-12-08] MEDS: TRAMADOL HCL 50 MG TAB PO PRN (07:50)
[2019-12-08] MEDS: SMZ./TMP. 800/160 MG TABLET PO SCH (07:51)
[2019-12-08] MEDS: MELOXICAM 7.5 MG TAB PO SCH (07:51)
[2019-12-08] MEDS: FERROUS SULFATE 325 MG TAB PO SCH (07:51)
[2019-12-08] MEDS: CALCIUM CARB 500MG/VIT D 200 IU TAB PO SCH (07:52)
[2019-12-08] MEDS: GABAPENTIN 300 MG CAP PO SCH (07:52)
[2019-12-08] MEDS: PROMOD 30 ML DOSE PO SCH (07:52)
[2019-12-08] MEDS: FE SULF/FA/VIT B COMP & C TAB PO SCH (07:54)
--- NOTE | 2019-12-08 09:36 | P.RH.PN ---
Estimated Length of Stay: 12 Expected Discharge Date: 12/09/19 Discharge Disposition Plan: Home Family Support: Yes Jail Goal: Mobility, Transfers, Self Care Vital Signs: Last Vital Signs Temp 98.8 F 12/08/19 07:07 Pulse 64 12/08/19 07:07 Resp 16 12/08/19 08:50 BP 119/59 L 12/08/19 07:07 Pulse Ox 95 12/08/19 08:50 Laboratory: Laboratory Last Values WBC 9.7 K/uL (4.3-10.9) D 12/07/19 15:45 RBC 3.04 M/uL (3.86-4.86) L 12/07/19 15:45 Hgb 9.7 g/dL (12.0-15.0) L 12/07/19 15:45 Hct 29.3 % (36.0-45.0) L 12/07/19 15:45 MCV 96.5 fL (80-100) 12/07/19 15:45 MCH 31.9 pg (27.0-35.0) 12/07/19 15:45 MCHC 33.0 g/dL (32.0-36.0) 12/07/19 15:45 RDW 17.2 % (12.1-15.2) H 12/07/19 15:45 Plt Count 248 K/uL (152-406) 12/07/19 15:45 MPV 10.7 fL (7.6-11.3) 12/07/19 15:45 Neutrophils % 67.9 % (41.7-73.7) 12/07/19 15:45 Lymphocytes % 16.1 % (15.3-44.8) 12/07/19 15:45 Monocytes % 13.3 % (3.3-12.3) H 12/07/19 15:45 Eosinophils % 1.8 % (0-4.4) 12/07/19 15:45 Basophils % 0.9 % (0-1.3) 12/07/19 15:45 Absolute Neutrophils 6.6 K/uL (1.8-8.0) 12/07/19 15:45 Absolute Lymphocytes 1.6 K/uL (0.7-4.9) 12/07/19 15:45 Absolute Monocytes 1.3 K/uL (0.1-1.3) 12/07/19 15:45 Absolute Eosinophils 0.2 K/uL (0-0.5) 12/07/19 15:45 Absolute Basophils 0.1 K/uL (0-0.5) 12/07/19 15:45 Sodium 137 mmol/L (136-145) 12/07/19 15:45 Potassium 4.2 mmol/L (3.5-5.1) 12/07/19 15:45 Chloride 108 mmol/L (98-107) H 12/07/19 15:45 Carbon Dioxide 22 mmol/L (21-32) 12/07/19 15:45 BUN 16 mg/dL (7-18) 12/07/19 15:45 Creatinine 1.04 mg/dL (0.55-1.3) 12/07/19 15:45 Estimated GFR 53 mL/min (=/>90) L 12/07/19 15:45 Glucose 95 mg/dL (74-106) 12/07/19 15:45 Calcium 8.2 mg/dL (8.5-10.1) L 12/07/19 15:45 Magnesium 2.0 mg/dL (1.8-2.4) 12/07/19 15:45 Albumin 2.4 g/dL (3.4-5.0) L 12/07/19 15:45 Prealbumin 17.7 mg/dL (20-40) L 12/07/19 15:45 Urine Color Yellow 11/28/19 20:45 Urine Appearance Clear 11/28/19 20:45 Urine pH 6.0 (5.0-7.0) 11/28/19 20:45 Ur Specific [place] 1.015 (1.005-1.030) 11/28/19 20:45 Glucose (UA)(Auto) Negative (NEG) 11/28/19 20:45 Urine Ketones Negative (NEG) 11/28/19 20:45 Urine Blood 2+ (NEG) H 11/28/19 20:45 Urine Nitrite Negative (NEG) 11/28/19 20:45 Urine Bilirubin Negative (NEG) 11/28/19 20:45 Urine Urobilinogen 0.2 mg/dL (0.2-1.0) 11/28/19 20:45 Ur Leukocyte Esterase Trace (NEG) H 11/28/19 20:45 Urine RBC 5-10 /HPF (NONE SEEN) H 11/28/19 20:45 Urine WBC <5 /HPF (<5) 11/28/19 20:45 Ur Squamous Epith Cells <5 /HPF (NONE SEEN) 11/28/19 20:45 Urine Bacteria <20 /HPF (<20) 11/28/19 20:45 Urine Culture Reflexed Not needed 11/28/19 20:45 Urine Total Protein 1+ (NEG) H 11/28/19 20:45 Weight: 269 lb Left Elbow Skin Temperature: Warm Wound Present: Yes Closed Surgical Incision Present: Yes Negative Pressure Wound Therapy Present: No Physician Update: Her labs were reviewed and are stable. She is independent with ADL and mobilization. She will be discharged home with home health. Functional Improvement: Patient has met all short-term goals at this time, and is progressing well toward long-term goals. Patient follows instruction well, and shows good attitude toward therapy. Summary: Patient's care plan and residential goals have been reviewed and revised as necessary. Please see the Rehabilitation Signature page for all necessary signatures.
--- NOTE | 2019-12-08 11:40 | FAST ---
SHIFT START DATE/TIME: 12/08/2019 07:00 (CDT) SHIFT END DATE/TIME: 12/08/2019 19:00 (CDT) NAME DESIREE CARVALHO DATE OF : 1950 DATE OF ADMISSION: 11/28/2019 18:45 (CDT) PHONE: AGE: 69 N# [id number] GENDER: Female ENCOUNTER PHYSICIAN: Dr. Moi Barry M.D. ADMISSION DIAGNOSIS: - Orthopaedic Disorders 08 - Femur (Shaft) Fracture (08.2) LEFT DISTAL FEMORAL SHAFT PERIPROSTHETIC FRACTURE. EATING: EATING - STEP 1: Does the patient complete the activity by him/herself with no assistance (physical, verbal/nonverbal cueing, setup/clean-up)? No. EATING - STEP 2: Does the patient need only setup/clean-up assistance from one helper? No. EATING - STEP 3: Does the patient need only verbal/nonverbal cueing or touching/steadying/contact guard assistance fro m one helper? Yes. 1. [id number] ADMISSION PERFORMANCE: Supervision or touching assistance CODE: 04 ORAL HYGIENE: ORAL HYGIENE - STEP 1: Does the patient complete the activity by him/herself with no assistance (physical, verbal/nonverbal cueing, setup/clean-up)? No. ORAL HYGIENE - STEP 2: Does the patient need only setup/clean-up assistance from one helper? No. ORAL HYGIENE - STEP 3: Does the patient need only verbal/nonverbal cueing or touching/steadying/contact guard assistance fro m one helper? Yes. 1. [id number] ADMISSION PERFORMANCE: Supervision or touching assistance CODE: 04 TOILETING HYGIENE: TOILETING HYGIENE - STEP 1: Does the patient complete the activity by him/herself with no assistance (physical, verbal/nonverbal cueing, setup/clean-up)? No. TOILETING HYGIENE - STEP 2: Does the patient need only setup/clean-up assistance from one helper? No. TOILETING HYGIENE - STEP 3: Does the patient need only verbal/nonverbal cueing or touching/steadying/contact guard assistance fro m one helper? Yes. 1. [id number] ADMISSION PERFORMANCE: Supervision or touching assistance CODE: 04 BATHING: Not assessed/no information CODE: - DRESSING - UPPER BODY: Not assessed/no information CODE: - DRESSING - LOWER BODY: Not assessed/no information CODE: - PUTTING ON/TAKING OFF FOOTWEAR: Not assessed/no information CODE: - ROLL LEFT AND RIGHT: Not assessed/no information CODE: - SIT TO LYING: Not assessed/no information CODE: - LYING TO SITTING: Not assessed/no information CODE: - SIT TO STAND: SIT TO STAND - STEP 1: Does the patient complete the activity by him/herself with no assistance (physical, verbal/nonverbal cueing, setup/clean-up)? No. SIT TO STAND - STEP 2: Does the patient need only setup/clean-up assistance from one helper? No. SIT TO STAND - STEP 3: Does the patient need only verbal/nonverbal cueing or touching/steadying/contact guard assistance fro m one helper? Yes. 1. [id number] ADMISSION PERFORMANCE: Supervision or touching assistance CODE: 04 TRANSFERS: BED, CHAIR: CHAIR/[id number] TRANSFER - STEP 1: Does the patient complete the activity by him/herself with no assistance (physical, verbal/nonverbal cueing, setup/clean-up)? No. CHAIR/[id number] TRANSFER - STEP 2: Does the patient need only setup/clean-up assistance from one helper? No. CHAIR/[id number] TRANSFER - STEP 3: Does the patient need only verbal/nonverbal cueing or touching/steadying/contact guard assistance fro m one helper? Yes. 1. [id number] ADMISSION PERFORMANCE: Supervision or touching assistance CODE: 04 TRANSFER TOILET: TOILET TRANSFER - STEP 1: Does the patient complete the activity by him/herself with no assistance (physical, verbal/nonverbal cueing, setup/clean-up)? No. TOILET TRANSFER - STEP 2: Does the patient need only setup/clean-up assistance from one helper? No. TOILET TRANSFER - STEP 3: Does the patient need only verbal/nonverbal cueing or touching/steadying/contact guard assistance fro m one helper? Yes. 1. [id number] ADMISSION PERFORMANCE: Supervision or touching assistance CODE: 04 TRANSFERS: CAR: Not assessed/no information CODE: - WALK 10 FEET: Not assessed/no information CODE: - 1 STEP (CURB): Not assessed/no information CODE: - PICKING UP OBJECT: Not assessed/no information CODE: - DOES THE PATIENT USE A WHEELCHAIR/SCOOTER? CODE: EXPR WHEEL 50 FEET WITH TWO TURNS: Not assessed/no information CODE: - INDICATE THE TYPE OF WHEELCHAIR/SCOOTER USED: CODE: EXPR WHEEL 150 FEET: Not assessed/no information CODE: - INDICATE THE TYPE OF WHEELCHAIR/SCOOTER USED: CODE: EXPR BLADDER AND BOWEL: H350. BLADDER CONTINENCE (3-DAY ASSESSMENT PERIOD): Always continent (no documented incontinence) CODE: 0 H400. BOWEL CONTINENCE (3-DAY ASSESSMENT PERIOD): Always continent CODE: 0 SIGNATURE PANEL: The following modified sections: 1. [id number] Admission Performance, 1. [id number] Admission Performance, 1. [id number] Admission Performance, 1. [id number] Admission Performance, 1. [id number] Admission Performance, 1. [id number] Admission Performance, Code, H350. Bladder Continence (3-day assessment period), H400. Lukas wel Continence (3-day assessment period) were [electronically] signed by Fabio Birmingham on WedDecember 07 202 0 11:40:08 T-0500 (Central Daylight Time)
[2019-12-08] MEDS: HYDROCODONE/APAP 5/325 MG TAB PO PRN (12:46)
[2019-12-08] MEDS ORDERED: NYSTATIN PWDR 100000 UNIT/GM TOP SCH (20:00)
== END 2019-12-08 14:49 | disposition home health service (06) | DRG 560 ==
LOC: 5TH 18:45
PROVIDERS: ADMIT Psychiatry & Neurology Neurology with Special Qualifications in Child Neurology; ATTEND Psychiatry & Neurology Neurology with Special Qualifications in Child Neurology
DX: S72.392D Other fracture of shaft of left femur, subsequent encounter for closed fracture with routine healing (principal); Z68.42 Body mass index [BMI] 45.0-49.9, adult; J44.9 Chronic obstructive pulmonary disease, unspecified; K21.9 Gastro-esophageal reflux disease without esophagitis; E78.5 Hyperlipidemia, unspecified; M79.7 Fibromyalgia; E66.01 Morbid (severe) obesity due to excess calories; Z88.8 Allergy status to other drugs, medicaments and biological substances; Z79.52 Long term (current) use of systemic steroids; Z79.891 Long term (current) use of opiate analgesic; Z79.899 Other long term (current) drug therapy; Z96.653 Presence of artificial knee joint, bilateral
CPT/HCPCS: 36415; 80048; 81001; 82040; 83735; 84134; 85025; 87070; 87075; 87077; 87086; 87088; 87186; 87205; 97110; 97116; 97161; 97530; 97542; J1650; J7512

== ENCOUNTER 2020-04-18 08:39 | Inpatient (IN) | payer OTHER ==
--- NOTE | 2020-04-18 11:02 | R.PREADM ---
PRE-ADMISSION SCREENING FORM SCREENING DATE AND TIME 04/18/2020 08:56 (CDT) ANTICIPATED REHAB ADMISSION DATE 04/20/2020 REFERRING FACILITY [facility] REFERRAL DATE AND TIME 04/18/2020 08:57 (CDT) ACUTE ADMIT DATE 04/06/2020 Previous Rehabilitation(s): No. ACUTE GLOVE OPERATOR/DC ADMINISTRATION INTERN RENÉ MARKHAM ATTENDING PHYSICIAN DR. SULLIVAN REFERRING PHYSICIAN DR. SULLIVAN PRIMARY CARE PHYSICIAN DR. NO,[facility] REHAB FACILITY [facility] CLINICAL LIAISON Miley Cordon PHYSICIAN REVIEWER Dr. Moi Barry M.D. MR# [id number] NAME DESIERE CORDOBA ADDRESS [address] [facility] PHONE [facility] [address] DATE OF 1950 AGE 70 SSN# [id number] GENDER female MARITAL STATUS Single (Never ) RACE unknown race ADMIT FROM 03 - [facility]dc Facility (SNF) PRE-HOSPITAL LIVING SETTING 01 - Home (private home/apt. board/care, assisted living, alf, transitional living) HOME TYPE AND DETAILS Type of home: single family house # of levels in the residence: 1 # of steps within the residence: 0 # of steps to enter the residence: 1 PRE-HOSPITAL LIVING WITH Family/Relatives FAMILY SUPPORT Yes PRIMARY FAMILY CONTACT NAME ESTEBAN DIETRICH PRIMARY FAMILY CONTACT PHONE PRIMARY FAMILY CONTACT RELATIONSHIP Sister PHONE PRIMARY FAMILY CONTACT ON ADM.? no IS PRIMARY FAMILY CONTACT AUTH. REP.? no 1ST EMERGENCY CONTACT ESTEBAN DIETRICH 1ST CONTACT PHONE 1ST CONTACT RELATIONSHIP Sister PHONE 1ST CONTACT ON ADM. no IS 1ST CONTACT AUTH. REP.? no PHONE 2ND CONTACT ON ADM.? no PATIENT EMPLOYMENT STATUS Retired (for age) PATIENT EMPLOYER No Employer PAYOR INFORMATION: 1ST PAYOR NAME MEDICARE 1ST PAYOR PHONE 1ST PAYOR INJURY/ILLNESS DUE TO ACCIDENT? No ANOTHER DEMOCRAT RESPONSIBLE? No PRIMARY REHAB/ACUTE DIAGNOSIS: RIGHT FEMUR FRACTURE REHAB IMPAIRMENT CATEGORY (SHAYY): 07 Fracture of LE (FracLE) MEETS 60% rule AFFECTED EXTREMITIES: LLE PRIMARY DIAGNOSIS-RELATED SURGERIES: Emergency Unilateral Hip Fracture - performed by DR. SULLIVAN on 04/07/2020 SUMMARY OF ACUTE HOSPITALIZATION: Pt. is a 70 yo Right-handed female of unknown race. On 04/06/2020 she was admitted to [facility] and underwent emergency surgery for RIGHT FEMUR FRAC TURE (Unilateral Hip Fracture) by DR. SULLIVAN. Pre-morbidly, Pt. was independent/mod-I in Communication, Safety Awareness, Social Cognition, and Tra nsfers Control; and she had good Endurance and Locomotion. Currently, she has deficits of Safety Awareness, Balance, Sphincter Control, Self-Care, and Endurance . Pt. is now referred to [facility] for acute in-patient rehabilitation in order to maximize patient's functional independence in activities of daily living, strength, ROM, and mobi lity. Patient has realistic goal of being discharged at assistance level 7-Ind to reside at Home with Fami ly/Relatives. Layne Cordoba is a 69 year -old female that lives independently at home in her one-story apartment. She has no stairs to get inside. She was able to do daily activated on her own prior to her femur fracture. PMH of COPD and extensive bilateral lower extremity orthopedic history who presents with right proximal femur fracture. She says she took a step on a flat surface and heard a crack. She was in pain in the posterior hip, thigh and knee on the right side. Patient has not been able to bear weight since the injury. She has always performed all her own ADLs and IADLs. Prior to [facility] she was seeing her PCP regularly. She had surgery @ [facility] 04-06-20. She was d/c on 04/16/20 to [facility], which her and the family stated was a mix up. They had requested to come to us for acute inpatient rehab. The patient would most definitely benefit from acute inpatient rehab and has become severely debilitated and unable to live at her prior level of activity at home getting her stronger to be back living at home independently is our goal. It is reasonable and necessary for the patient to come to acute inpatient rehab for approximately 7-10 days in order to return to her prior level of care. She now being transferred to [facility] Inpatient rehabilitation and is medically stable with relatively stable labs. She is now medically stable but in need of 24 hour nursing, doctor supervision and oversight while receiving active and participate in 3 hours of therapy a day/15 hours per week and receive care with intensive interdisciplinary approach. COVID-19 screening performed; spoke with patient via phone. Patient denies new onset of fever, cough, difficulty breathing, sore throat, body aches and non-allergy nasal congestion in the past 24 hours. Patient denies travel outside of [place] in the past 14 days. Patient denies any contact with someone who has a confirmed diagnosis of or is under investigation for COVID-19 in the past 14 days. Patient has been tested negative for COVID- 19. PAST MEDICAL HISTORY ASTHMA COPD ESOPHAGEAL REFLUX FIBROMYALGIA Hypertension SHINGLES SLEEP APNEA PAST SURGICAL HISTORY: ANTIBIOTIC SPACER PLACEMENT SPACER REMOVAL LEFT FEMUR INTRAMEDULLARY NAILING FEMUR ORIF LEFT FEMUR ORIF RIGHT HIP ORIF RIGHT KNEE RESCETION ARTHROPLASTY LEFT LUMBAR EPIDURAL STEROID INJECTION LEFT OPEN KNEE DEBRIDEMENT RIGHT REMOVAL HARDWARE LOWER EXTREAMITY (SHX) RIGHT TIBIA ORIF RIGHT TOTAL KNEE ARTHROPLASTY RIGHT TRANDFORAMINAL EPIDURAL INJECTION LEFT MEDICATION ALLERGIES: XANAX ZINC ENVIRONMENTAL ALLERGIES: - Substance Allergies None Known - Other Allergies None Known CODE STATUS: Full code WEIGHT/HEIGHT/BMI: WEIGHT 280 lbs HEIGHT 5' 3" BMI 49.6 DIET: - Diet Type Regular - Diet - Solid Texture Regular - Diet - Liquid Texture Regular - Tube Feed N/A REVIEW OF SYSTEMS: - Gen Alert and awake Lying in bed No apparent distress Oriented to: person, time, and place - Vital Signs Temperature: 98.4 F SBP/DBP: 136/69 Pulse: 68 Resp: 18 Vital signs stable, afebrile - CVS RRR VITAL SIGNS Temperature: 98.4 F SBP/DBP: 136/69 Pulse: 68 Resp: 18 Vital signs stable, afebrile MEDICATIONS/TREATMENT: Other- See attached MAR (Medication Administration Record). CURRENT SPHINCTER CONTROL: Pre-hospital bladder status: unspecified # of bladder accidents in the last 7 days prior to screenin Pre-hospital bowel status: unspecified # of bowel accidents in the last 7 days prior to screenin Last Bowel Movement Date: 04/18/2020 CURRENT LOCOMOTION STATUS: distance walked 0 feet DETAILED CURRENT FUNCTIONAL STATUS: - Bladder accident frequency: Ind - No accidents in the past 7 days - Bowel accident frequency: Ind - No accidents in the past 7 days - Walking score based on distance walked: 0(N/A) - Wheelchair score based on distance traveled: 0(N/A) QI SCORES: - Self-Care A. Eating 03-Partial/moderate assistance B. Oral hygiene 03-Partial/moderate assistance C. Toileting hygiene E. Shower/bathe self 02-Substantial/maximal assistance F. Upper body dressing 03-Partial/moderate assistance G. Lower body dressing 02-Substantial/maximal assistance H. Putting on/taking off footwear 88-Not attempted due to medical condition or safety concerns - Mobility A. Roll left and right 03-Partial/moderate assistance B. Sit to lying 03-Partial/moderate assistance C. Lying to sitting on side of bed 03-Partial/moderate assistance D. Sit to stand 02-Substantial/maximal assistance E. Chair/wew-bg-jrjix transfer 02-Substantial/maximal assistance F. Toilet transfer G. Car transfer 88-Not attempted due to medical condition or safety concerns I. Walk 10 feet 88-Not attempted due to medical condition or safety concerns J. Walk 50 feet with two turns 88-Not attempted due to medical condition or safety concerns K. Walk 150 feet 88-Not attempted due to medical condition or safety concerns L. Walking 10 feet on uneven surfaces 88-Not attempted due to medical condition or safety concerns M. 1 step (curb) 88-Not attempted due to medical condition or safety concerns N. 4 steps 88-Not attempted due to medical condition or safety concerns O. 12 steps 88-Not attempted due to medical condition or safety concerns P. Picking up object 88-Not attempted due to medical condition or safety concerns R. Wheel 50 feet with two turns 88-Not attempted due to medical condition or safety concerns S. Wheel 150 feet 88-Not attempted due to medical condition or safety concerns - Bladder and Bowel Bladder continence Bowel continence - Endurance Fair - Balance Poor - Safety Awareness Fair CURRENT FUNC. DEFICITS: Self-Care, Mobility, Endurance, Balance, and Safety Awareness CURRENT / PREVIOUS ASSISTIVE DEVICES: Hospital Bed Rolling Walker Shower Chair Wheelchair PRIOR SURGERY. DID THE PATIENT HAVE MAJOR SURGERY DURING THE 100 DAYS PRIOR TO ADMISSION?: No THERAPY NOTES FROM ACUTE CARE: Attached. SPECIAL NEEDS: - Safety Concerns Skin breakdown precautions needed due to skin breakdown risk PRECAUTIONS: - Anterior Hip Precaution No abduction No active extension No adduction across midline No external rotation No hip flexion >90 degrees No internal rotation - Posterior Hip Precaution No adduction across midline No external rotation No hip flexion >90 degrees No internal rotation No wheel chair propulsion - Weight Bearing Precaution WBAT left LE PATIENT NEEDS ACTIVE AND ONGOING THERAPEUTIC INTERVENTION OF MULTIPLE THERAPY DISCIPLINES, INCLUDING: - Dietary and Nutrition Adequate Nutrition. Nutritional Education. Nutritional Supplements. PATIENT NEEDS CLOSE MEDICAL SUPERVISION BY A REHABILITATION PHYSICIAN FOR: Coordination of Treatment Team Post-Op Complications PATIENT REQUIRES 24X7 REHAB NURSING FOR MEDICAL AND FUNCTIONAL MGT. OF THE FOLLOWING DEFICITS: Disease Management Medication Management Patient/Family Education Providing Safe Environment PATIENT REQUIRES INTENSIVE, COORDINATED INTERDISCIPLINARY APPROACH TO REHAB: Arranging Home Equipment/Services Discharge Planning Family Intervention/Training Resident Advisor/Case Management PATIENT REHAB POTENTIAL: Tomer CORDOBA is able and expected to receive 3 hours of individualized therapy daily on at least 5 of alexandra ry 7 days NSoledad CORDOBA's prognosis for significant practical improvement within a reasonable period of time appears Good Expected level of measurable improvement will be of a practical value to Tomer CORDOBA's functional capaci ty or adaptations to impairments Has a viable Discharge Plan Medically appropriate; condition is sufficiently stable to participate in intensive rehab program DISCHARGE PLAN: - Estimated Length of Stay (days) 14. - Consensus on plan Discharge plan has been discussed with primary caregiver. Patient/Family is in agreement with the chelle n. Primary caregiver is in agreement with the plan. - Patient/Family Goals Return home independently. - Planned Living Setting Upon Discharge Home, to live with Family/Relatives. Transitional Living. RECOMMENDED CARE LEVEL: IRF RECOMMENDATION DETAILS: Recommended Admission to Comprehensive Rehabilitation Program to Increase Functional [place] SCREENER'S COMPLETENESS CONFIRMATION: - Screening Confirmation The patient data collection on this preadmission screening form is finished PHYSICIANS REVIEW AND ADMISSION DETERMINATION Admit - Based on my review of the Pre-Admission Screening results, in my medical judgment and experie nce, I concur with the findings and recommend admission to [facility], as this patient requires an IRF level of care. SIGNATURE PANEL: Ocular Pathologist - [electronically] signed by Miley Cordon on 04/18/2020 at 10:19 (CDT) Clinical Liaison - [electronically] signed by Gloria Mace RN on 04/18/2020 at 10:22 (CDT) Physician Reviewer - [electronically] signed by Dr. Moi Barry M.D. on 04/18/2020 at 11:02 (CDT )
[2020-04-18] MEDS ORDERED: ALBUTEROL 2.5 MG/3 ML NEB SOL NEB PRN (13:29)
[2020-04-18] MEDS ORDERED: FLUTICASONE FUROATE IH PRN (14:15)
[2020-04-18] MEDS ORDERED: VILANTEROL IH PRN (14:15)
[2020-04-18] MEDS ORDERED: UMECLIDINIUM IH PRN (14:15)
[2020-04-18] MEDS ORDERED: ENOXAPARIN 40 MG/0.4 ML SQ SCH (17:00)
--- NOTE | 2020-04-18 17:41 | R.HP ---
HISTORY AND PHYSICAL FACILITY: [facility] ENCOUNTER DATE AND TIME: 04/18/2020 17:33 (CDT) MR#: [id number] NAME DESIREE CORDOBA ADDRESS: [place] [address] CITY: [place] ZIP [address] PHONE: DATE OF : 1950 AGE: 70 SSN# [id number] GENDER: Female DEXTERITY Right-handed MARITAL STATUS Single (Never ) RACE Unknown race PRE-HOSPITAL LIVING SETTING 01 - Home (private home/apt. board/care, assisted living, custodial, transitional living) PRE-HOSPITAL LIVING WITH Family/Relatives ENCOUNTER PHYSICIAN: Dr. Moi Barry M.D. REFERRING DOCTOR: DR. SULLIVAN DATE OF ADMISSION: 04/18/2020 10:47 (CDT) REFERRING FACILITY [facility] PRIMARY CARE PHYSICIAN MADHAV ESTRADA HOME TYPE AND DETAILS: Type of home: single family house # of levels in the residence: 1 # of steps within the residence: 0 # of steps to enter the residence: 1 PRIMARY DIAGNOSIS-RELATED SURGERIES: Emergency Unilateral Hip Fracture - performed by DR. SULLIVAN on 04/07/2020 HISTORY OF PRESENT ILLNESS (HPI): Pt. is a 70 yo Right-handed female of unknown race. On 04/06/2020 she was admitted to [facility] and underwent emergency surgery for RIGHT FEMUR FRAC TURE (Unilateral Hip Fracture) by DR. SULLIVAN. Pre-morbidly, Pt. was independent/mod-I in Communication, Safety Awareness, Social Cognition, and Tra nsfers Control; and she had good Endurance and Locomotion. Currently, she has deficits of Safety Awareness, Balance, Sphincter Control, Self-Care, and Endurance . Pt. is now referred to [facility] for acute in-patient rehabilitation in order to maximize patient's functional independence in activities of daily living, strength, ROM, and mobi lity. Patient has realistic goal of being discharged at assistance level 7-Ind to reside at Home with Fami ly/Relatives. Layne Cordoba is a 69 year -old female that lives independently at home in her one-story apartment. She has no stairs to get inside. She was able to do daily activated on her own prior to her femur fracture. PMH of COPD and extensive bilateral lower extremity orthopedic history who presents with right proximal femur fracture. She says she took a step on a flat surface and heard a crack. She was in pain in the posterior hip, thigh and knee on the right side. Patient has not been able to bear weight since the injury. She has always performed all her own ADLs and IADLs. Prior to COVID she was seeing her PCP regularly. She had surgery @ [facility] 04-06-20. She was d/c on 04/16/20 to [facility], which her and the family stated was a mix up. They had requested to come to us for acute inpatient rehab. The patient would most definitely benefit from acute inpatient rehab and has become severely debilitated and unable to live at her prior level of activity at home getting her stronger to be back living at home independently is our goal. It is reasonable and necessary for the patient to come to acute inpatient rehab for approximately 7-10 days in order to return to her prior level of care. She now being transferred to Inpatient rehabilitation and is medically stable with relatively stable labs. She is now medically stable but in need of 24 hour nursing, doctor supervision and oversight while receiving active and participate in 3 hours of therapy a day/15 hours per week and receive care with intensive interdisciplinary approach. COVID-19 screening performed; spoke with patient via phone. Patient denies new onset of fever, cough, difficulty breathing, sore throat, body aches and non-allergy nasal congestion in the past 24 hours. Patient denies travel outside of [place] in the past 14 days. Patient denies any contact with someone who has a confirmed diagnosis of or is under investigation for COVID-19 in the past 14 days. Patient has been tested negative for COVID- 19. MEDICATION ALLERGIES: XANAX ZINC ENVIRONMENTAL ALLERGIES: - Substance Allergies None Known - Other Allergies None Known PAST MEDICAL HISTORY: ASTHMA COPD ESOPHAGEAL REFLUX FIBROMYALGIA Hypertension SHINGLES SLEEP APNEA PAST SURGICAL HISTORY: ANTIBIOTIC SPACER PLACEMENT SPACER REMOVAL LEFT FEMUR INTRAMEDULLARY NAILING FEMUR ORIF LEFT FEMUR ORIF RIGHT HIP ORIF RIGHT KNEE RESCETION ARTHROPLASTY LEFT LUMBAR EPIDURAL STEROID INJECTION LEFT OPEN KNEE DEBRIDEMENT RIGHT REMOVAL HARDWARE LOWER EXTREAMITY (SHX) RIGHT TIBIA ORIF RIGHT TOTAL KNEE ARTHROPLASTY RIGHT TRANDFORAMINAL EPIDURAL INJECTION LEFT SOCIAL HISTORY: - Home Living Family/Relatives REVIEW OF SYSTEMS: - Gen No Chills Fatigue No Fever - Eyes No Double Vision No itchiness - ENMT No Difficulty Swallowing - CVS No Chest Discomfort No Chest Pain Fatigue No Weight Gain - Resp No Cough No Shortness of Breath - GI Continent No Abdominal Pain Constipation No Diarrhea - Continent No Kidney Pain No Painful Urination No Urinary Urgency - MSK Joint Pain Muscle Cramps Stiffness - Skin No Itching No Rash No Suspicious Lesions - Neuro No Coordination Difficulty No Difficulty with Concentration No Memory Loss No Seizures Weakness - Psych No Anxiety No Depression No HIV Exposure No Persistent Infections No Seasonal Allergies - Endo No Cold/Heat Intolerance No Excessive Hunger No Excessive Thirst No Excessive Urination PHYSICAL EXAM - Gen Alert and awake Lying in bed No apparent distress Oriented to: person, time, and place - Skin No skin breakdown. Normacephalic - Eyes No abnormalities - ENMT No abnormalities - Neck No abnormalities No cervical adenopathy - CVS RRR - Chest No abnormalities - Resp Clear to auscultation - Abd Soft - GI Non distended Deferred - No abnormalities - Ext Right hip surgical site has good hemostasis. - MSK 4+/5 weakness in right lower extremity - Neuro 4/5 strength right lower extremity. - Psych No abnormalities VITAL SIGNS Temperature: 97.3 F SBP/DBP: 135/67 Pulse: 74 Resp: 16 NURSING: - Shower allowing shower - Skin care per protocol PRECAUTIONS: - Anterior Hip Precaution No abduction No active extension No adduction across midline No external rotation No hip flexion >90 degrees No internal rotation - Posterior Hip Precaution No adduction across midline No external rotation No hip flexion >90 degrees No internal rotation No wheel chair propulsion - Weight Bearing Precaution WBAT left LE ACTIVITIES OOB only with supervision QI SCORES: - Self-Care A. Eating 03-Partial/moderate assistance B. Oral hygiene 03-Partial/moderate assistance C. Toileting hygiene E. Shower/bathe self 02-Substantial/maximal assistance F. Upper body dressing 03-Partial/moderate assistance G. Lower body dressing 02-Substantial/maximal assistance H. Putting on/taking off footwear 88-Not attempted due to medical condition or safety concerns - Mobility A. Roll left and right 03-Partial/moderate assistance B. Sit to lying 03-Partial/moderate assistance C. Lying to sitting on side of bed 03-Partial/moderate assistance D. Sit to stand 02-Substantial/maximal assistance E. Chair/[id number]-[id number] transfer 02-Substantial/maximal assistance F. Toilet transfer G. Car transfer 88-Not attempted due to medical condition or safety concerns I. Walk 10 feet 88-Not attempted due to medical condition or safety concerns J. Walk 50 feet with two turns 88-Not attempted due to medical condition or safety concerns K. Walk 150 feet 88-Not attempted due to medical condition or safety concerns L. Walking 10 feet on uneven surfaces 88-Not attempted due to medical condition or safety concerns M. 1 step (curb) 88-Not attempted due to medical condition or safety concerns N. 4 steps 88-Not attempted due to medical condition or safety concerns O. 12 steps 88-Not attempted due to medical condition or safety concerns P. Picking up object 88-Not attempted due to medical condition or safety concerns R. Wheel 50 feet with two turns 88-Not attempted due to medical condition or safety concerns S. Wheel 150 feet 88-Not attempted due to medical condition or safety concerns - Bladder and Bowel Bladder continence Bowel continence - Endurance Fair - Balance Poor - Safety Awareness Fair CURRENT FUNC. DEFICITS: Self-Care, Mobility, Endurance, Balance, and Safety Awareness MEDICATIONS: - Other See attached MAR (Medication Administration Record) ASSESSMENT: Pt. is a 70 yo Right-handed female of unknown race.On 04/06/2020 she was admitted to [facility] nd underwent emergency surgery for RIGHT FEMUR FRACTURE (Unilateral Hip Fracture) by DR. SULLIVAN.Pre -morbidly, Pt. was independent/mod-I in Communication, Safety Awareness, Social Cognition, and Transf ers Control; and she had good Endurance and Locomotion.Currently, she has deficits of Safety Awarenes s, Balance, Sphincter Control, Self-Care, and Endurance.Pt. is now referred to [facility] for acute in-patient rehabilitation in order to maximize patient's functional independenc e in activities of daily living, strength, ROM, and mobility.- Rehab Goal Patient has realistic goal of being discharged at assistance level 7-Ind to reside at Home with Fami ly/Relatives. Layne Cordoba is a 69 year -old female that lives independently at home in her one-story apartment. She has no stairs to get inside. She was able to do daily activated on her own prior to her femur fracture. PMH of COPD and extensive bilateral lower extremity orthopedic history who presents with right proximal femur fracture. She says she took a step on a flat surface and heard a crack. She was in pain in the posterior hip, thigh and knee on the right side. Patient has not been able to bear weight since the injury. She has always performed all her own ADLs and IADLs. Prior to COVID she was seeing her PCP regularly. She had surgery @ [facility] 04-06-20. She was d/c on 04/16/20 to [facility], which her and the family stated was a mix up. They had requested to come to us for acute inpatient rehab. The patient would most definitely benefit from acute inpatient rehab and has become severely debilitated and unable to live at her prior level of activity at home getting her stronger to be back living at home independently is our goal. It is reasonable and necessary for the patient to come to acute inpatient rehab for approximately 7-10 days in order to return to her prior level of care. She now being transferred to Inpatient rehabilitation and is medically stable with relatively stable labs. She is now medically stable but in need of 24 hour nursing, doctor supervision and oversight while receiving active and participate in 3 hours of therapy a day/15 hours per week and receive care with intensive interdisciplinary approach. COVID-19 screening performed; spoke with patient via phone. Patient denies new onset of fever, cough, difficulty breathing, sore throat, body aches and non-allergy nasal congestion in the past 24 hours. Patient denies travel outside of [place] in the past 14 days. Patient denies any contact with someone who has a confirmed diagnosis of or is under investigation for COVID-19 in the past 14 days. Patient has been tested negative for COVID- 19.REHAB PLAN: - Physical Therapy Decreased range of motion - to improve, our physical therapists will perform initial evaluation of pt 's status upon admission and devise an individualized program for increasing patient's Range of Motio n. Gait dysfunction - to improve, our physical therapists will perform initial evaluation of pt's status upon admission and devise an individualized program for Gait Training, and Wheel Chair mobility Need for home safety evaluation - to improve, our physical therapists will perform initial evaluation of pt's status upon admission and devise an individualized program for Home Evaluation Need in caregiver upon discharge - to improve, our physical therapists will perform initial evaluatio n of pt's status upon admission and devise an individualized program for Caregiver Training New precaution - to improve, our physical therapists will perform initial evaluation of pt's status u sima admission and devise an individualized program for Patient precaution education Poor balance - to improve, our physical therapists will perform initial evaluation of pt's status upo n admission and devise an individualized program for Balance Training Poor endurance - to improve, our physical therapists will perform initial evaluation of pt's status u sima admission and devise an individualized program for Endurance Training Weakness - to improve, our physical therapists will perform initial evaluation of pt's status upon ad mission and devise an individualized program for Aquatic Therapy, Neuromuscular Reeducation, and Stre ngthening Achieving independence - to improve, our physical therapists will perform initial evaluation of pt's status upon admission and devise an individualized program for Community Reintegration Activities - Occupational Therapy ADL deficits - to improve, our occupation therapists will perform initial evaluation of pt's status u sima admission and devise an individualized program for Bathing, Bed mobility, Community Reintegration , Cooking, Dressing, Eating, Fine Motor Skills, Grooming, Homemaking, Kitchen Mobility, Laundry, Cornelia ent Education, Safety Awareness, Splinting - Positioning, Transfers(Toilet, Tub, Shower), and Wheel C hair Management Need for post anesthesia care unit nurse - to improve, our occupation therapists will perform initial evaluation of pt's s tatus upon admission and devise an individualized program for Caregiver Training Weakness - to improve, our occupation therapists will perform initial evaluation of pt's status upon admission and devise an individualized program for Aquatic Therapy, Balance, Endurance, UE ROM, and U E strengthening MEDICAL PLAN: - Anterior Hip Precaution No abduction No active extension No adduction across midline No external rotation No hip flexion >90 degrees No internal rotation - Diet - Liquid Texture Start Regular - Tube Feed Start N/A - Diet Type Start Regular - Posterior Hip Precaution No adduction across midline No external rotation No hip flexion >90 degrees No internal rotation No wheel chair propulsion - Weight Bearing Precaution WBAT right LE - Skin care per protocol - Other See attached MAR (Medication Administration Record) - Diet - Solid Texture Regular - Shower shower DISCHARGE PLAN: - Estimated Length of Stay (days) 14. - Consensus on plan Discharge plan has been discussed with primary caregiver. Patient/Family is in agreement with the chelle n. Primary caregiver is in agreement with the plan. - Patient/Family Goals Return home independently. - Planned Living Setting Upon Discharge Home, to live with Family/Relatives. Transitional Living. SIGNATURE PANEL: (CDT)
[2020-04-18] MEDS: predniSONE 20 MG TAB PO SCH (19:28)
[2020-04-18] MEDS: TRAMADOL HCL 50 MG TAB PO PRN (19:28)
[2020-04-18] MEDS: GABAPENTIN 300 MG CAP PO SCH (19:28)
[2020-04-18] MEDS: DOCUSATE NA 100 MG CAP PO SCH (19:35)
[2020-04-18] MEDS ORDERED: ENOXAPARIN 30 MG/0.3 ML SQ SCH (20:00)
[2020-04-18 23:38] LABS: Urine Appearance CLOUDY; Urine Bilirubin NEGATIVE (NEG); Urine Blood 2+ (NEG); Urine Color YELLOW; Urine Glucose NEGATIVE (NEG); Urine Protein NEGATIVE (NEG); Urine Specific Gravity <=1.005 (1.005-1.030); Urine pH 6.5 (5.0-7.0)
[2020-04-18 23:54] LABS: Urine Culture Reflex Order NOT NEEDED
[2020-04-18 23:55] LABS: Urine Bacteria >50 /HPF (<20); Urine Urothelial Cells <5 /HPF (NONE SEEN)
--- OUTSIDE RECORDS SUMMARY | 2020-04-19 03:48 | XMS REPORT | Continuity of Care Document ---
:1950 Author Organization [facility] t Address [address] [place] [id number] Care Team Providers Name Role Phone Yadira MARTINEZ Attending Clinician Juliano FAROOQ Attending Clinician Doctor Unassigned, Name Attending Clinician Unavailable Gautam OROZCO Attending Clinician Sandrita MARTINEZ, Katy Attending Clinician Fredy MARTINEZ Attending Clinician Yadira MARTINEZ Admitting Clinician Sandrita MARTINEZ, Katy Admitting Clinician Problems This patient has no known problems. Allergies, Adverse Reactions, Alerts This patient has no known allergies or adverse reactions. Medications This patient has no known medications. Procedures This patient has no known procedures. Encounters Start End Encounter Admission Attending Care Care Encounter Source Date/Time Date/Time Type Type Clinicians Facility Department ID 2020-04-06 2020-04-16 [facility] Yadira Lanie [id number] 20:29:00 17:40:00 Encounter Maricruz Conteh [id number] [facility] [id number] 2020-04-06 2020-04-06 Emergency NADINE Henao [id number] 16:27:00 19:20:00 Aly Reyes [id number] [place] 4.2.7.2.686 [place] [id number] 2020-01-04 2020-01-04 Orders Doctor MARICRUZ [id number] 00:00:00 00:00:00 Only Unassigned, ROLDAN [id number] [place] [facility] [id number] 2019-12-06 2019-12-06 Orders Doctor MARICRUZ [id number] 00:00:00 00:00:00 Only Unassigned, ROLDAN [id number] [place] [facility] [id number] 2019-11-29 2019-11-29 Transition Tiffanie Florezcharles [id number] 00:00:00 00:00:00 of Care Rain Valdez [id number] [place] [id number] 2019-11-22 2019-11-28 [facility] Lanie Remy [id number] 14:08:03 17:30:00 Encounter J Carlos Katy Sheridany [id number] [facility] [id number] 2019-11-22 2019-11-22 Emergency Fredy [facility] [id number] 09:15:45 13:02:00 Enoch Reyes [id number] [place] [id number] [place] [id number] Results This patient has no known results.
--- OUTSIDE RECORDS SUMMARY | 2020-04-19 03:48 | XMS REPORT | Summary of Care ---
:1950 Author Organization [facility] - [facility] Address [address] [place] [address] Care Team Providers Name Role Phone Allyson, Melissa Primary Care Provider Reason for Referral Radiology Services (STAT) Status Reason Specialty Diagnoses / Referred By Referred To Procedures Contact Contact New Request Diagnostic Diagnoses Right leg pain Aly Henao, Radiology Procedures XR KNEE <3 VW RIGHT VEHICLE TRIMMER [address] [place] [address] Radiology Services (STAT) Status Reason Specialty Diagnoses / Referred By Referred To Procedures Contact Contact New Request Diagnostic Diagnoses Right leg pain Aly Henao, Radiology Procedures XR FEMUR 2 VW RIGHT VEHICLE TRIMMER [address] [place] [address] Reason for Visit Reason Comments Leg Pain right Auth/Cert Status Reason Specialty Diagnoses / Referred By Referred To Procedures Contact Contact Emergency Medicine Diagnoses RT LEG PAIN [facility] [address] [place] [address] Fax: Encounter Details Date Type Department Care Team Description 04/06/2020 Emergency [facility] Aly Henao, VEHICLE TRIMMER Closed nondisplaced subtrochanteric frac ture of right femur, initial encounter (Primary Dx); Department [address] [facility] Right leg pain [address] [place] [place] [address] [address] [place] [id number] [phone] Allergies Active Allergy Reactions Severity Noted Date Comments Alprazolam Hallucinations High 02/16/2012 Zinc Rash High 08/20/2014 documented as of this encounter (statuses as of 04/06/2020) Medications Medication Sig Dispensed Refills Start Date [...] needed for Pain subsequent encounter (scale 7-10). HYDROcodone-acetaminop Take 1 tablet by 40 tablet 0 11/28/2019 Active hen 5-325 mg mouth every 6 tabletIndications: (six) hours as Closed displaced needed for Pain oblique fracture of (scale 4-6). shaft of left femur, initial encounter ergocalciferol, Take 50,000 Units 5 capsule 0 12/02/2019 Active vitamin d2, 2,500 unit by mouth weekly. CapIndications: Closed displaced oblique fracture of shaft of left femur, initial encounter traMADol 50 mg Take 1 tablet by 40 tablet 0 12/12/2019 Active tabletIndications: S/P mouth every 4 ORIF (open reduction (four) hours as internal fixation) needed for Pain fracture, Closed (scale 7-10). 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 Total knee replacement status 05/19/2011 Major depressive disorder, single episode, mild 2005 documented as of this encounter (statuses as of 04/06/2020) Immunizations Name Administration Dates Next Due Influenza High Dose 05/29/2016 Influenza Virus Vaccine 04/20/2017 documented as of this encounter Social History Tobacco Use Types Packs/Day Years Used Date Never Smoker Smokeless Tobacco: Never Used Comments: sidestream exposure Alcohol Use Drinks/Week oz/Week Comments Not Currently Sex Assigned at Date Recorded Not on file COVID-19 Exposure Response Date Recorded In the last month, have you been in contact with No / Unsure 04/06/2020 4:27 PM CDT someone who was confirmed or suspected to have Coronavirus / COVID-19? documented as of this encounter Last Filed Vital Signs Vital Sign Reading Time Taken Comments Blood Pressure 93/75 04/06/2020 7:00 PM CDT Pulse 63 04/06/2020 7:00 PM CDT Temperature 37.2 C (98.9 F) 04/06/2020 7:00 PM CDT Respiratory Rate 19 04/06/2020 7:00 PM CDT Oxygen Saturation 96% 04/06/2020 7:00 PM CDT Inhaled Oxygen Concentration - - Weight 127 kg (280 lb) 04/06/2020 4:30 PM CDT Height - - Body Mass Index 49.6 11/22/2019 8:30 PM CDT documented in this encounter ED Notes Dilcia Covington RN - 04/06/2020 4:27 PM CDTPatient [facility] via [facility] for c/o of right upper leg pain that goes down to her knee for one week that got worse today after hearing a crack. Patient denies any trauma. Patient has had multiple fractures and surgeries with rods and plats on her right leg. Patient also reporting the sensation of right knee pain Patient was given 150 mcg and 4 mg of zofran IM cDAly valentino FNP - 04/06/2020 4:24 PM CDT [facility] Emergency Department Note Patient Name: Layne Cordoba Date of : 1950 69 year old female Treatment Room: [place] [address] Primary Care Physician: Rosenda Valadez Patient Escorted by: Self [9] Mode of Arrival: EMS - [facility] [43] EMS Treatment Prior to ED Arrival: Travel and Exposure Screening: Symptoms Does patient have any of these symptoms?: (not recorded) Exposure Screening Has patient had contact with someone with a communicable disease in the last month?: (not recorded) Diseases exposed to:: (not recorded) Is Patient ?: (not recorded) Exposure Date: (not recorded) Chief Complaint: Chief Complaint Patient presents with Leg Pain right History of Present Illness: Patient with right hip pain x 2 weeks stated she heard and felt a pop today with intense increase inpain. Patient now reports unable to ambulate or lift her leg due to pain. History provided by: Patient diplomatic interpreter/translator used: No Leg Pain Location: Hip Injury: no Hip location: R hip Pain details: Quality: Sharp and shooting Severity: Severe Onset quality: Sudden Duration: 1 day Timing: Constant Progression: Worsening Chronicity: New Dislocation: no Prior injury to area: No Relieved by: Nothing Worsened by: Bearing weight, extension, flexion and rotation Ineffective treatments: None tried Risk factors: frequent fractures and obesity Past Medical History/Immunizations: Past Medical History: Diagnosis Date Asthma COPD (chronic obstructive pulmonary disease) Esophageal reflux Fibromyalgia Hyperlipidemia Shingles Sleep apnea Tetanus received in last 5 years: Unknown Allergies: Allergies Allergen Reactions Xanax [Alprazolam] Hallucinations Zinc Rash Past Social History: Tobacco Use Never smoked or used smokeless tobacco. sidestream exposure Alcohol Use Not Currently. Drug Use No. Past Surgical History: Past Surgical History: Procedure Laterality Date ANTIBIOTIC SPACER PLACEMENT 09/26/2012 Surgeon: Savaanh Roman MD; Location: [facility] ANTIBIOTIC SPACER REMOVAL 12/14/2012 Surgeon: Savanah Roman MD; Location: [facility] FEMUR INTRAMEDULLARY NAILING Left 11/23/2019 Surgeon: J Carlos Remy MD; Location: [facility] FEMUR ORIF Early 1970s FEMUR ORIF Right 04/16/2014 Surgeon: Butch Kohler MD; Location: [facility] LOC[facility] FEMUR ORIF Left 11/23/2019 Surgeon: J Carlos Remy MD; Location: [facility] KNEE RESECTION ARTHROPLASTY 09/26/2012 Surgeon: Savanah Roman MD; Location: [facility] LUMBAR EPIDURAL STEROID INJECTION Left 01/20/2016 Surgeon: Casper Arias MD; [facility] OPEN KNEE DEBRIDEMENT 01/07/2011 Surgeon:SAVANAH ROMAN; Location:[facility] SACROILIAC JOINT INJECTION 09/21/2016 SACROILIAC JOINT INJECTION Left 09/21/2016 Surgeon: Casper Arias MD; Location[facility] TIBIA ORIF Right 04/16/2014 Surgeon: Butch Kohler MD; Location: [facility] TOTAL KNEE ARTHROPLASTY 1998 Bilateral TOTAL KNEE ARTHROPLASTY REVISION 12/18/2010 Surgeon:SAVANAH ROMAN; Location:[facility] TOTAL KNEE ARTHROPLASTY REVISION 12/14/2012 Surgeon: Savanah Roman MD; Location: [facility] TOTAL KNEE ARTHROPLASTY REVISION Right 09/24/2014 Surgeon: Butch Kohler MD; Location: [facility] TRANSFORAMINAL EPIDURAL INJECTION (SHX) 09/21/2016 TRANSFORAMINAL EPIDURAL INJECTION (SHX) Left 09/21/2016 Surgeon: Casper Arias MD; Location: [facility] TRANSFORAMINAL EPIDURAL STEROID INJECTION 01/20/2016 Review of Systems: Review of Systems Constitutional: Negative. HENT: Negative. Eyes: Negative. Respiratory: Negative. Cardiovascular: Negative. Gastrointestinal: Negative. Genitourinary: Negative. Musculoskeletal: Right hip/ leg pain Skin: Negative. Neurological: Negative. Psychiatric/Behavioral: Negative. Endocrine: Endocrine negative Physical Exam: ED Triage Vitals [04/06/20 1630] Weight 127 kg (280 lb) Actual or estimated Estimated by patient/family report Height BP (!) 167/87 Pulse 79 Resp 20 Temp 36.9 C (98.5 F) Temp source Oral SpO2 96 % Measured on Room air Physical Exam Constitutional: General: She is not in acute distress. Appearance: She is well-developed. She is not toxic-appearing or diaphoretic. HENT: Head: Normocephalic. Mouth/Throat: Mouth: Mucous membranes are not dry. Pharynx: No oropharyngeal exudate. Eyes: Pupils: Pupils are equal, round, and reactive to light. Neck: Musculoskeletal: Normal range of motion. Cardiovascular: Rate and Rhythm: Normal rate and regular rhythm. Heart sounds: Normal heart sounds. Pulmonary: Effort: Pulmonary effort is normal. No respiratory distress. Breath sounds: Normal breath sounds. No wheezing or rales. Abdominal: General: Bowel sounds are normal. There is no distension. Palpations: Abdomen is soft. Tenderness: There is no abdominal tenderness. Musculoskeletal: Right hip: She exhibits decreased range of motion, decreased strength, tenderness and bony tenderness. She exhibits no deformity. Legs: Skin: General: Skin is warm and dry. Neurological: Mental Status: She is alert and oriented to person, place, and time. Cranial Nerves: No cranial nerve deficit. Psychiatric: Speech: Speech normal. Behavior: Behavior normal. Thought Content: Thought content normal. Judgment: Judgment normal. Radiology: Hospital Encounter on 04/06/20 XR KNEE <3 VW RIGHT Narrative EXAM: XR FEMUR 2 VW RIGHT, XR KNEE <3 VW RIGHT HISTORY: 69 years-old Female with rt leg pain COMPARISON: Right knee and femur x-rays 12/31/2015 FINDINGS: Radiographs of the right femur and knee demonstrate distal femoral resection and total knee arthroplasty with long stem prosthesis. There is interval backing out of the plate and screws fixating of the proximal/mid femoral shaft with development of perihardware lucency around the proximal most screw with hardware related fracture of the subtrochanteric right femur. Redemonstrated screw fragments along the mid femoral shaft anteriorly. Unremarkable appearance of the total knee arthroplasty hardware and partially visualized plate and screw fixation of the proximal tibial diaphysis. Dystrophic calcifications are noted about the knee joint and the left femoral shaft. Impression Perihardware fracture of the subtrochanteric right femur. Unremarkable total knee arthroplasty using long stem prosthesis. Preliminary Report Dictated by Resident: Evelyn Torrez XR FEMUR 2 VW RIGHT Narrative EXAM: XR FEMUR 2 VW RIGHT, XR KNEE <3 VW RIGHT HISTORY: 69 years-old Female with rt leg pain COMPARISON: Right knee and femur x-rays 12/31/2015 FINDINGS: Radiographs of the right femur and knee demonstrate distal femoral resection and total knee arthroplasty with long stem prosthesis. There is interval backing out of the plate and screws fixating of the proximal/mid femoral shaft with development of perihardware lucency around the proximal most screw with hardware related fracture of the subtrochanteric right femur. Redemonstrated screw fragments along the mid femoral shaft anteriorly. Unremarkable appearance of the total knee arthroplasty hardware and partially visualized plate and screw fixation of the proximal tibial diaphysis. Dystrophic calcifications are noted about the knee joint and the left femoral shaft. Impression Perihardware fracture of the subtrochanteric right femur. Unremarkable total knee arthroplasty using long stem prosthesis. Preliminary Report Dictated by Resident: Evelny Torrez Lab Results (24h): No results found for this or any previous visit (from the past 24 hour(s)). Orders and Treatments: Orders Placed This Encounter Procedures XR FEMUR 2 VW RIGHT XR KNEE <3 VW RIGHT COVID-19 (ID NOW RAPID TESTING) Orders Placed This Encounter Medications FENTanyl PF (SUBLIMAZE (PF)) injection 50 mcg morpHINE injection 4 mg ED COURSE ED Course as of Apr 06 1810 Sat Apr 06, [id number] Discussed with Dr. May who accepted patient for ER to ER eval. [KM] 3174 No ortho chain sales consultant for [facility] today. Notified [facility] of need to transfer to [place] for ortho eval, femur fracture. XR FEMUR 2 VW RIGHT [KM] ED Course User Index [KM] Aly Henao, VEHICLE TRIMMER MDM: right hip/ leg pain Hx of multiple ortho surgeries on rt leg and knee, also left leg and knee subtrochanteric fracture noted. Discussed with dr. May who accepted for ER to ER [facility] in [place]. No ortho on for [facility] today. Stable for transfer. Coding Diagnosis/Impression: ICD-10-CM ICD-9-CM 1. Closed nondisplaced subtrochanteric fracture of right femur, initial encounter S72.24XA 820.22 2. Right leg pain M79.604 729.5 Disposition/Condition: ED Disposition None Discharge Medications: Patient's Medications START taking these medications No medications on file CONTINUE taking these medications which have NOT CHANGED ATORVASTATIN (LIPITOR) 10 MG TABLET TK 1 T PO QD DOXYCYCLINE 100 MG CAPSULE Take 1 capsule by mouth daily. ERGOCALCIFEROL, VITAMIN D2, 2,500 UNIT CAP Take 50,000 Units by mouth weekly. FLUTICASONE/UMECLIDIN/VILANTER (TRELEGY ELLIPTA INHALE) Inhale as needed. GABAPENTIN 300 MG CAPSULE Take one cap today, BID tomorrow, and then HYDROCODONE-ACETAMINOPHEN 5-325 MG TABLET Take 1 tablet by mouth every 6 (six) hours as needed for Pain (scale 4-6). MELOXICAM 15 MG TABLET Take 1 tablet by mouth daily. PANTOPRAZOLE 40 MG EC TABLET TK 1 T PO QD PREDNISONE 20 MG TABLET 1 PO BID x 4 days TRAMADOL 50 MG TABLET Take 1 tablet by mouth every 8 (eight) hours as needed for Pain (scale 7-10). TRAMADOL 50 MG TABLET Take 1 tablet by mouth every 4 (four) hours as needed for Pain (scale 7-10). TRAZODONE 100 MG TABLET TK 1 T PO ONCE A DAY START taking Modified Medications as Prescribed No medications on file STOP taking these medications No medications on file Follow-up: Electronically signed by: OSEAS Marroquin 04/06/2020 4:32 PM Associated attestation - Enoch Daniel MD - 04/06/2020 6:34 PM CDTOn the date of service, I reviewed the patients history, exam findings, diagnostic and any interventions or procedures in detail of the assigned advance practice provider and was available for consultation. Enoch Daniel Jr., MD Clinical Core Driller Helper [facility] Emergency Department documented in this encounter Miscellaneous Notes ED Nurse Note - Anca Wesley RN - 04/06/2020 6:31 PM CDTNurse Report Report given to Candido OROZCO at [facility]. Chief complaint, assessment findings and orders reviewed. Plan of care discussed. Anca Wesley RN D Nurse Note - Shonda Guevara PCT - 04/06/2020 6:16 PM CDTCity Ambulance contacted for transfer at 1817. ETA 30-35Min. D Nurse Note - Anca Wesley RN - 04/06/2020 4:54 PM CDTCovered with warm blanket documented in this encounter Plan of Treatment Name Type Priority Associated Diagnoses Date/Ti me XR FEMUR 2 VW RIGHT IMAGING STAT Right leg pain 2019 5:13 PM CDT XR KNEE <3 VW RIGHT IMAGING STAT Right leg pain 2019 5:13 PM CDT Health Maintenance Due Date Last Done Comments HEPATITIS C (HCV) SCREEN 1950 DTaP,Tdap,and Td Vaccines (1 - Tdap) 1970 Breast Cancer Screening (MAMMOGRAM) 1991 COLON CANCER SCREENING ANNUAL FIT/FOBT 2001 COLON CANCER SCREENING FIT DNA EVERY 3 2001 YEARS COLON CANCER SCREENING SIGMOIDOSCOPY EVERY 2001 5 YEARS COLONOSCOPY 2001 Colorectal Cancer Screening 2001 Zoster Recombinant Vaccine (SHINGRIX) (1 2001 of 2) Medicare Wellness Visit 2016 Osteoporosis Screening 2016 PNEUMOCOCCAL VACCINES 65+ (1 of 1 - 2016 PPSV23) INFLUENZA VACCINE (#1) 2020 04/20/2017, 05/29/2016 Depression Screening 04/11/2020 04/11/2019 documented as of this encounter Implants Implanted Type Area Housekeeping Supervisor Device Shelf Model / Identifier Expiration Serial / Lot Date [facility] Osteoset Resorbable Bead Kit Fast Cure 25cc Grafts #[id number] - [id number] [facility] [place] [id number] / Implanted: Qty: 2 on 09/26/2012 at [facility] [employer] / Dbm Putty Maxxeus 5cc Cts #2016-40 - [id number] BONE Right: Formerly [facility] Tissue 10/10/2013 / Implanted: Qty: 1 on 04/16/2014 by Butch Maldonado MD at [facility] [place] [employer] / 31-1955 Dbm Putty Maxxeus 5cc Cts #2016-40 - [id number] BONE Formerly [facility] Tissue 10/11/2015 / Implanted: Qty: 1 on 04/16/2014 by Guicho Hammonds MD at [facility] Services / [id number] Femur Shaft, Formerly [facility] Tissue Services > 11.0 Cm Frozen > 11.0 Cm #1135-14 - [id number] BONE Right: Formerly [facility] Tissue 07/10/2018 1135-14 / Implanted: Qty: 1 on 09/24/2014 by Butch Maldonado MD at [facility] [place] [employer] [id number] / [id number] Description:Formerly [facility] Tissue [facility] ID: [id number] Femur Shaft > 11.0 cm 14.0 cm exp: 07/10/2018 PrCode: 1135-14 CTS: Lot: [id number] 3.5mm Hex Button Button Right: Hip Baron 12/10/2015 2 35 / Implanted: Qty: 1 on 04/16/2014 by Aly Garcia MD at [facility] [place] / [id number] 3.5mm Hex Button Button Right: Hip Baron 08/25/2017 2 35 / Implanted: Qty: 1 on 04/16/2014 at [facility] [place] / [id number] 3.5mm Hex Button Button Right: Hip Baron 12/14/2017 2 23235 / Implanted: Qty: 1 on 04/16/2014 by Aly Garcia MD at [facility] [place] / [id number] 3.5mm Hex Button Button Right: Hip Baron 09/08/2016 2 23235 / Implanted: Qty: 1 on 04/16/2014 by Aly Garcia MD at [facility] [place] / [id number] 3.5mm Hex Button Button Right: Hip Baron 03/08/2018 2 232-02-35 / Implanted: Qty: 1 on 04/16/2014 by Aly Garcia MD at [facility] [place] / [id number] Cable Ready Cable Collections Technician System CABLE Right: Hip Baron 12/10/2023 2231-09-08 / Implanted: Qty: 1 on 04/16/2014 by Aly Garcia MD at [facility] [place] / [id number] Cable Ready Cable Collections Technician System CABLE Right: Hip Baron 12/10/2023 2231-09-08 / Implanted: Qty: 1 on 04/16/2014 by Aly Garcia MD at [facility] [place] / [id number] Cement, Ilsa Bone #6191-1-001 - [id number] CEMENT Right: Knee S tryker 01/09/2015 6191-1-001 / Implanted: Qty: 2 on 09/26/2012 by Savanah Lomax MD at [facility] [place] / [id number] Cement, Mace & Nephew Versabond #[id number] - [id number] CEMENT Right: Knee Mace & Nephew 03/12/2014 [id number] / Implanted: Qty: 3 on 12/14/2012 by Savanah Lomax MD at [facility] [place] / [id number] Bone Cement, Depuy Smartset Ghv Gentamicin 40g #[id number] - [id number] CEMENT Right: Leg Depuy Synthes 11/25/2015 [id number] / Implanted: Qty: 1 on 09/24/2014 by Butch Maldonado MD at [facility] [place] / [id number] Bone Cement, Depuy Smartset Ghv Gentamicin 40g #[id number] - [id number] CEMENT Right: Leg Depuy Synthes 11/25/2015 [id number] / Implanted: Qty: 1 on 09/24/2014 by Butch Maldonado MD at [facility] [place] / [id number] Lps Distal Femoral Component Xx Small Right Femoral Right: Knee 08/12/2017 [id number] / Implanted: Qty: 1 on 12/14/2012 by Savanah Lomax MD at [facility] [place] Component / [id number] Segmental Component Femoral Sleeve Right: Leg Depuy Synthes 02/25/2024 [id number] / Implanted: Qty: 1 on 09/24/2014 by Butch Maldonado MD at [facility] [place] / [id number] Description:REF: 045 LOT: [id number] Segmental Component 45 mm EXPIRATION: 2024-02 Femoral Stem Bowed Femoral Stem Right: Leg Depuy Synthes [id number] / Implanted: Qty: 1 on 09/24/2014 by Butch Maldonado MD at [facility] [place] / [id number] Description:REF: -311 LOT: [id number] EXPIRATION: 2023-06 11mm x 200mm cemented Femoral Stem Bowed Ncb Periprosthetic Proximal Femur Plate, Right, 9 Holes, L. 245 Mm Femur Right: Leg Baron 12/25/2020 [id number] / Implanted: Qty: 1 on 09/24/2014 by Butch Maldonado MD at [facility] [place] / [id number] Description:LOT: [id number] NORRIS: [id number] REF: [phone] NCB Periprosthetic Proximal Femur plate, right, 9 holes, L. 245mm Expiration: 2020-12 Lps Tibial Insert Hinge Kerby Xx Small 16mm Hinge Right: Knee 07/12/2014 [id number] / Implanted: Qty: 1 on 12/14/2012 by Savanah Lomax MD at [facility] [place] / [id number] Tka Tibial Tray, Depuy Mbt Rev Tib Tray Sz 3 15mm #[id number] - [id number] KNEE Right: Knee Depuy Synthes 06/11/2022 [id number] / Implanted: Qty: 1 on 12/14/2012 by Savanah Lomax MD at [facility] [place] / [id number] Plate, Synthes 4.5mm Broad Lcp 12h/224mm #226.621 - [id number] PL ATE Right: Leg Synthes 226.621 / Implanted: Qty: 1 on 04/16/2014 by Guicho Hammonds MD at [facility] / Screw, Synthes 4.5mm Cortex Slf-T 14mm #214.814 - [id number] SCRE W Right: Leg Synthes 214.814 / Implanted: Qty: 1 on 04/16/2014 by Guicho Hammonds MD at [facility] / Screw, Synthes 4.5mm Cortex Slf-T 26mm #214.826 - [id number] SCRE W Right: Leg Synthes 214.826 / Implanted: Qty: 1 on 04/16/2014 by Guicho Hammonsd MD at [facility] / Screw, Synthes 4.5mm Cortex Slf-T 28mm #214.828 - [id number] SCRE W Right: Leg Synthes 214.828 / Implanted: Qty: 1 on 04/16/2014 by Guicho Hammonds MD at [facility] / Screw, Synthes 4.5mm Cortex Slf-T 30mm #214.830 - [id number] SCRE W Right: Leg Synthes 214.830 / Implanted: Qty: 1 on 04/16/2014 by Guicho Hammonds MD at [facility] / Screw, Synthes 5.0mm Lckng Slf-T W/T25 Star Rec 26mm #212.20 7 - [id number] SCREW Right: Leg Synthes 212.207 / Implanted: Qty: 2 on 04/16/2014 by Guicho Hammonds MD at [facility] / Screw, Synthes 5.0mm Lckng Slf-T W/T25 Star Rec 28mm #212.20 8 - [id number] SCREW Right: Leg Synthes 212.208 / Implanted: Qty: 1 on 04/16/2014 at [facility] [place] / Screw, Synthes 5.0mm Lckng Slf-T W/T25 Star Rec 30mm #212.20 9 - [id number] SCREW Right: Leg Synthes 212.209 / Implanted: Qty: 1 on 04/16/2014 by Guicho Hammonds MD at [facility] / Screw, Synthes 5.0mm Periprosthetic Lckn g Slf-T Star 8mm #02.221.508 - [id number] SCREW Right: Leg Synthes .508 / Implanted: Qty: 1 on 04/16/2014 at [facility] [place] / Screw, Synthes 5.0mm Periprosthetic Lckn g Slf-T Star 10mm #02.221.510 - [id number] SCREW Right: Leg Synthes .510 / Implanted: Qty: 1 on 04/16/2014 by Guicho Hammonds MD at [facility] / Screw, Synthes 5.0mm Periprosthetic Lckn g Slf-T Star 12mm #02.221.512 - [id number] SCREW Right: Leg Synthes 221.512 / Implanted: Qty: 1 on 04/16/2014 by Guicho Hammonds MD at [facility] / Bicortical Screw SCREW Right: Hip Baron 02 .88197.030 / Implanted: Qty: 1 on 04/16/2014 by Aly Garcia MD at [facility] [place] / Bicortical Screw SCREW Right: Hip Abron 02 .42625.040 / Implanted: Qty: 1 on 04/16/2014 by Aly Garcia MD at [facility] [place] / Bicortical Screw SCREW Right: Hip Baron 02 .05097.032 / Implanted: Qty: 2 on 04/16/2014 by Aly Garcia MD at [facility] [place] / Bicortical Screw SCREW Right: Hip Baron 02 .27650.034 / Implanted: Qty: 1 on 04/16/2014 by Aly Garcia MD at [facility] [place] / Bicortical Screw SCREW Right: Hip Baron 02 .06210.034 / Implanted: Qty: 1 on 04/16/2014 at [facility] [place] Bicortical Screw SCREW Right: Hip Baron 02 .74867.038 / Implanted: Qty: 1 on 04/16/2014 by Aly Garcia MD at [facility] [place] Unicortical Screw SCREW Right: Hip Baron 0 2.94272.014 / Implanted: Qty: 1 on 04/16/2014 by Aly Garcia MD at [facility] [place] / Unicortical Screw SCREW Right: Hip Baron 0 2.85682.016 / Implanted: Qty: 1 on 04/16/2014 by Aly Garcia MD at [facility] [place] / 5.0 Cortcal Screw 02.36963.014 SCREW Right: Leg Baron 02.77864.014 / Implanted: Qty: 2 on 09/24/2014 by Butch Maldonado MD at [facility] [place] / 02.35074.0 14 Description:5.0 Cortical SCREWS: 02.0315 0.014 5.0 Cortical Screw 02.19940.030 SCREW Right: Leg Baron 02.56328.030 / Implanted: Qty: 2 on 09/24/2014 by Butch Maldonado MD at [facility] [place] / 02.94147.0 30 Description:5.0 Cortical SCREWS: 02.0315 0.030 5.0 Cortical Screw 02.75132.040 SCREW Right: Leg Baron 02.61749.040 / Implanted: Qty: 1 on 09/24/2014 by Butch Maldonado MD at [facility] [place] / 02.29587.0 40 Description:5.0 Cortical SCREW 02.49232. 040 5.0 Cortical Screw 02.84602.016 SCREW Right: Leg Baron 02.18727.016 / Implanted: Qty: 3 on 09/24/2014 by Butch Maldonado MD at [facility] [place] / 02.70442.0 16 Description:5.0 Cortical Screw 02.97884. 016 5.0 Cortical Screw 02.51616.018 SCREW Right: Leg Baron 02.17516.018 / Implanted: Qty: 1 on 09/24/2014 by Butch Maldonado MD at [facility] [place] / 02.18234.0 18 Description:5.0 Cortical Screw 02.90938. 018 85mm Lag Screw And 80mm Compression Screw SCREW Left: Leg [employer] 07/19/2028 [id number] / Implanted: Qty: 1 on 11/23/2019 by J Carlos Remy MD at [facility] NA / [id number] Screw, [employer] Trigen Low Profile 5.0mm X 42.5mm #[id number] - Sna SCREW Left: Leg [employer] 06/03/2029 [id number] / Implanted: Qty: 1 on 11/23/2019 by J Carlos Remy MD at [facility] NA / [id number] Screw, [employer] Trigen Low Profile 5.0mm X 52.5mm #[id number] - Sna SCREW Left: Leg [employer] 01/31/2029 [id number] / Implanted: Qty: 1 on 11/23/2019 by J Carlos Remy MD at [facility] NA / [id number] Screw, [employer] Trigen Low Profile 5.0mm X 47.5mm #[id number] - Sna SCREW Left: Leg [employer] 10/31/2027 [id number] / Implanted: Qty: 1 on 11/23/2019 by J Carlos Remy MD at [facility] NA / [id number] Screw, [employer] Clara-Loc 4.5mm T25 Locking 56mm Self-Tapping #[id number] - S SCREW [employer] [id number] / Implanted: Qty: 1 on 11/23/2019 by J Carlos Remy MD at [facility] / Screw, [employer] Clara-Loc 4.5mm T25 Blunt Tip Loc kim 10mm #[id number] - S SCREW [employer] [id number] / Implanted: Qty: 4 on 11/23/2019 by J Carlos Remy MD at [facility] / Screw, [employer] Clara-Loc 4.5mm T25 Blunt Tip Loc kim 12mm #[id number] - S SCREW [employer] [id number] / Implanted: Qty: 1 on 11/23/2019 by J Carlos Remy MD at [facility] / Screw, [employer] Clara-Loc 4.5mm T25 Locking 14mm Self-Tapping #[id number] - S SCREW [employer] [id number] / Implanted: Qty: 2 on 11/23/2019 by J Carlos Remy MD at [facility] / Screw, [employer] Clara-Loc 4.5mm T25 Locking 18mm Self-Tapping #[id number] - S SCREW [employer] [id number] / Implanted: Qty: 1 on 11/23/2019 by J Carlos Remy MD at [facility] / Screw, [employer] Clara-Loc 4.5mm T25 Locking 24mm Self-Tapping #[id number] - S SCREW [employer] [id number] / Implanted: Qty: 1 on 11/23/2019 by J Carlos Remy MD at [facility] / Stem, Depuy Sig Tib Niko Stm 13x60 2/2.5/3 #[id number] - [id number] St em Right: Knee Depuy Synthes 03/12/2022 [id number] / Implanted: Qty: 1 on 12/14/2012 by Savanah Lomax MD at [facility] [place] / [id number] Lsp Stem Straight 12mm X 125mm Cemented Stem Right: Knee 06/11/2022 [id number] / Implanted: Qty: 1 on 12/14/2012 by Savanah Lomax MD at [facility] [place] / [id number] Drill Bit, M[employer]hew 3.5mm W/Quick Connect #[id number] - S Lin pply Item [employer]ace [employer]hew [id number] / Implanted: Qty: 1 on 11/23/2019 by J Carlos Remy MD at [facility] / Wire, Baron Jewels 16ga Long, 30cm #1292-61 - [id number] WIRE Right: Kn 1292-61 / Implanted: Qty: 3 on 09/26/2012 by Savanah Lomax MD at [facility] [place] 002 / 002 Cable Ready Cable Collections Technician System Right: Hip Baron 10/10/2023 2231-09-08 / Implanted: Qty: 1 on 04/16/2014 by Aly Garcia MD at [facility] [place] / [id number] Locking Cap Right: Hip Baron 02.0315 0.300 / Implanted: Qty: 8 on 04/16/2014 by Aly Garcia MD at [facility] [place] / Curved Shaft Plate Right: Hip Baron 02.90222.010 / Implanted: Qty: 1 on 04/16/2014 by Aly Garcia MD at [facility] [place] / Tibial Insert Kerby X Small 16mm Depuy #- - [id number] Right: Leg Depuy Synthes 10/25/2017 / Implanted: Qty: 1 on 09/24/2014 by Butch Maldonado MD at [facility] [place] / [id number] Femoral Comp Lps Distal Radius X Small Right Depuy # - [id number] Right: Leg Depuy Synthes 06/26/2019 / Implanted: Qty: 1 on 09/24/2014 by Butch Maldonado MD at [facility] [place] / [id number] Left Trochanteric Antegrade Nail 10mm X 38cm Left: Leg Sm ith & Nephew 07/19/2027 [id number] / Implanted: Qty: 1 on 11/23/2019 by J Carlos Remy MD at [facility] NA / [id number] Plate Bone Locking 342mml Holex10 Mace [employer]hew [id number] / Implanted: Qty: 1 on 11/23/2019 by J Carlos Remy MD at [facility] / documented as of this encounter Procedures Procedure Name Priority Date/Time Associated Diagnosis Comme nts COVID-19 (ID NOW STAT 04/06/2020 5:53 PM Right leg pain Re sults for this RAPID TESTING) CDT procedure are in the results section. XR KNEE <3 VW RIGHT STAT 04/06/2020 5:13 PM Right leg pain CDT Procedure Note - Alonso Bryant nt Results Inft User - 04/06/2020 7:20 PM CDT EXAM: XR FEMUR 2 VW RIGHT, XR KNEE <3 VW RIGHT HISTORY: 69 years-old Female with rt leg pain COMPARISON: Right knee and f emur x-rays 12/31/2015 FINDINGS: Radiographs of the right fem ur and knee demonstrate distal femoral resection and total knee art hroplasty with long stem prosthesis. There is interval backing out of the plate and screws fixating of the proximal/mid femoral shaft with developme nt of perihardware lucency around the proximal most screw with hardware rel ated fracture of the subtrochanteric right femur. Redemonstrated screw fragments along the mid femoral shaft anteriorly. Unremarkable appearance of t he total knee arthroplasty hardware and partially visualized plate a nd screw fixation of the proximal tibial diaphysis. Dystrophic calcif ications are noted about the knee joint and the left femoral shaft. IMPRESSION Perihardware fracture of the subtrochanteric right femur. Unremarkable total knee arth roplasty using long stem prosthesis. Preliminary Report Dictated by Resident: Evelyn Torrez XR FEMUR 2 VW RIGHT STAT 04/06/2020 5:13 PM CDT Right leg pain Procedure Note - Alonso Bryant nt Results Inft User - 04/06/2020 7:20 PM CDT EXAM: XR FEMUR 2 VW RIGHT, XR KNEE <3 VW RIGHT HISTORY: 69 years-old Female with rt leg pain COMPARISON: Right knee and f emur x-rays 12/31/2015 FINDINGS: Radiographs of the right fem ur and knee demonstrate distal femoral resection and total knee art hroplasty with long stem prosthesis. There is interval backing out of the plate and screws fixating of the proximal/mid femoral shaft with developme nt of perihardware lucency around the proximal most screw with hardware rel ated fracture of the subtrochanteric right femur. Redemonstrated screw fragments along the mid femoral shaft anteriorly. Unremarkable appearance of t he total knee arthroplasty hardware and partially visualized plate a nd screw fixation of the proximal tibial diaphysis. Dystrophic calcif ications are noted about the knee joint and the left femoral shaft. IMPRESSION Perihardware fracture of the subtrochanteric right femur. Unremarkable total knee arth roplasty using long stem prosthesis. Preliminary Report Dictated by Resident: Evelyn Torrez documented in this encounter Results COVID-19 (ID NOW RAPID TESTING) (04/06/2020 5:53 PM CDT) SARS-CoV-2 Rapid ID Not Detected Not Detected [facility] Specimen Swab - NASOPHARYNGEAL SWAB Narrative Performed At ID NOW COVID-19 Assay is an isothermal nucleic [facility] acid amplification test intended for the qualitative detection of nucleic acid from SARS-CoV-2 viral RNA in nasopharyngeal (INSURANCE SALES MANAGER) specimens. It is used under Emergency Use Authorization (EUA) by FDA. The limit of detection (LOD) of the assay is 125 Genome Equivalents/mL. A positive result is indicative of the presence of SARS-CoV-2 RNA. Clinical correlation with patient history and other diagnostic information is necessary to determine patient infection status. A negative (Not Detected) result does not preclude SARS-CoV-2 infection. In patients with clinical symptoms and other tests that are consistent with SARS-CoV-2 infection, negative results should be treated as presumptive negative and a new specimen should be tested with alternative PCR molecular test. Invalid: Please collect a new specimen for repeat patient testing if clinically indicated. Performing Organization Address City/State/Zipcode Phone Number [facility] CLIA: [id number] [place], [place] [id number] [address] documented in this encounter Visit Diagnoses Diagnosis Closed nondisplaced subtrochanteric frac ture of right femur, initial encounter - Primary Right leg pain Pain in limb documented in this encounter Administered Medications Medication Order MAR Action Action Date Dose Rate Site FENTanyl PF (SUBLIMAZE (PF)) Given 04/06/2020 4:59 PM CDT 50 mc g injection 50 mcg 50 mcg, Slow IV Push, ONCE, 1 dose, 04/06/20 at 1745, Routine morpHINE injection 4 mg Given 04/06/2020 5:28 PM CDT 4 mg 4 mg, Slow IV Push, ONCE, 1 dose, 04/06/20 at 1830, STAT morpHINE injection 4 mg Given 04/06/2020 6:25 PM CDT 4 mg 4 mg, Slow IV Push, ONCE, 1 dose, 04/06/20 at 1930, STAT documented in this encounter Additional Health Concerns Infection Onset Date Last Indicated Resolved Time COVID-19 Rule Out 04/06/2020 04/06/2020 04/06/2020 6: 37 PM CDT documented as of this encounter Insurance Payer Benefit Plan / Subscriber ID Effective Phone Address T ype Group Dates MEDICARE MEDICARE PART [id number] 2016-Pres [phone] Medicare A & B ent [phone] JESÚS ROBBINS [phone] SUSAN DAVIS [id number] 2017-Pres [address] Medica id HEALTHCARE - [place]CARE [place] [id number] MANAGED MEDICAID [place], [place] documented as of this encounter Advance Directives Type Date Recorded Patient Scientific Aide Explanati on Advance Directives and Living 03/14/2013 10:06 AM Will Power of Demo Specialist 12/31/2015 1:19 PM
--- OUTSIDE RECORDS SUMMARY | 2020-04-19 03:50 | XMS REPORT | Summary of Care ---
:1950 Author Organization [facility] Address [address] [place] [address] Care Team Providers Name Role Phone Melissa Valadez Primary Care Provider Reason for Referral Other (Routine) Status Reason Specialty Diagnoses / Referred By Contact Refe rred To Procedures Contact New Request Diagnoses Other fracture of right femur, initial encounter for closed fracture Maricruz Sullivan II, Maricruz Sullivan II, Procedures Discharge Follow-up: Specialty Provider MARICRUZ SULLIVAN II; 2 Weeks MD MARTINEZ [address] [facility] [address] [place], [place] [address] [place], [place] Phone: [phone] Fax: (Routine) Status Reason Specialty Diagnoses / Referred By Referred To Procedures Contact Contact New Request Orthopedic Diagnoses Other fracture of right femur, initial encounter for closed fracture Maricruz Sullivan Surgery Procedures CONSULT/REFERRAL [facility] MD JONNA [address] [facility] [address] [place] [address] Other (Routine) Status Reason Specialty Diagnoses / Referred By Referred To Procedures Contact Contact New Request Orthopedic Diagnoses Other fracture of right femur, initial encounter for closed fracture Maricruz Sullivan, Surgery Procedures Discharge Follow-up: Specialty Provider EARL RUBIO; 2 Weeks MD Earl COYLE MD [address] [facility] [address] [place] amanda Zepeda [place], [place] [address] [place], [place] Phone: [phone] Phone: Radiology Services (Routine) Status Reason Specialty Diagnoses / Referred By Referred To Procedures Contact Contact New Request Diagnostic Diagnoses Other fracture of right femur, initial encounter for closed fracture Yadira, Maricruz Radiology Procedures XR FEMUR 2 VW RIGHT MD Светлана COYLE Dr. [address] [place] [address] (Routine) Status Reason Specialty Diagnoses / Referred By Referred To Procedures Contact Contact New Request Diagnostic Diagnoses Other fracture of right femur, initial encounter for closed fracture Maricruz Sullivan Radiology Procedures FL TIME OR (NON-REPORTABLE) MD Светлана COYLE Dr. [address] [place] [address] Radiology Services (STAT) Status Reason Specialty Diagnoses / Referred By Referred To Procedures Contact Contact New Request Diagnostic Diagnoses Closed fracture of right femur with routine healing, unspecified fracture morphology, unspecified portion of femur, subsequent encounter Maricruz Sullivan Radiology Procedures XR CHEST 1 VW MD Светлана COYLE Dr. [address] [place] [address] MRI/CAT Scan (STAT) Status Reason Specialty Diagnoses / Referred By Referred To Procedures Contact Contact New Request Diagnostic Diagnoses Closed fracture of right femur with routine healing, unspecified fracture morphology, unspecified portion of femur, subsequent encounter Maricruz Sullivan Radiology Procedures CT HIP RIGHT WO CONTRAST MD [address] [address] [address] Radiology Services (STAT) Status Reason Specialty Diagnoses / Referred By Referred To Procedures Contact Contact New Request Diagnostic Diagnoses Closed fracture of right femur with routine healing, unspecified fracture morphology, unspecified portion of femur, subsequent encounter Mraicruz Sullivan Radiology Procedures XR HIPS 2 VW RIGHT MD Светлана COYLE Dr. [address] [place] [address] Reason for Visit Reason Comments REFERRAL Auth/Cert Status Reason Specialty Diagnoses / Referred By Referred To Procedures Contact Contact [facility] [address] [place] [phone] Fax: Encounter Details Date Type Department Care Team Description 04/06/2020 - Hospital Surgery (JONAS 9C) Maricruz Sullivan II, Other fracture of 04/16/2020 Encounter 712 Wes Ferreira MD right femur, [place], [place] [address] initial encounter [id number] for closed fracture [phone] [place] [address] [phone] Allergies Active Allergy Reactions Severity Noted Date Comments Alprazolam Hallucinations High 02/16/2012 Zinc Rash High 08/20/2014 documented as of this encounter (statuses as of 04/16/2020) Medications Medication Sig Dispensed Refills Start Date End Date Status atorvastatin TK 1 T PO QD 1 05/29/2016 Act sarabjit (LIPITOR) 10 mg tablet pantoprazole 40 mg TK 1 T PO QD 6 07/25/2016 Active EC tablet gabapentin 300 mg Take one cap 90 capsule 0 06/21/2017 Active capsule today, BID tomorrow, and then traZODONE 100 mg TK 1 T PO 0 07/24/2017 Ac tive tablet ONCE A DAY meloxicam 15 mg Take 1 tablet 30 tablet 0 11/08/2017 Active tablet by mouth daily. fluticasone/umeclid Inhale as 0 Active in/vilanter needed. (TRELEGY ELLIPTA INHALE) predniSONE 20 mg 1 PO BID x 4 8 tablet 0 06/15/2018 Active tablet days doxycycline 100 mg Take 1 30 capsule 11 04/11/2019 Active capsuleIndications: capsule by Infection of mouth daily. prosthetic knee joint, subsequent encounter traMADol 50 mg Take 1 tablet 90 tablet 1 04/11/2019 Active tabletIndications: by mouth Infection of every 8 prosthetic knee (eight) hours joint, subsequent as needed for encounter Pain (scale 7-10). ergocalciferol, Take 50,000 5 capsule 0 12/02/2019 A ctive vitamin d2, 2,500 Units by unit mouth weekly. CapIndications: Closed displaced oblique fracture of shaft of left femur, initial encounter traMADol 50 mg Take 1 tablet 40 tablet 0 12/12/2019 Active tabletIndications: by mouth S/P ORIF (open every 4 reduction internal (four) hours fixation) fracture, as needed for Closed bicondylar Pain (scale fracture of left 7-10). femur, initial encounter HYDROcodone-acetami Take 1 tablet 42 tablet 0 04/15/202004/22 Active nophen 10-325 mg by mouth tabletIndications: every 4 acute pain (four) hours as needed for Pain (scale 7-10) for up to 7 days. Indications: acute pain enoxaparin 30 inject 0.3 mL 16.8 mL 0 04/15/2020 05/13/2020 Active mg/0.3 mL under the injectionIndication skin every 12 s: Other fracture (twelve) of right femur, hours for 28 initial encounter days. for closed fracture sennosides-docusate Take 1 tablet 28 tablet 0 04/15/202004/29 Active sodium 8.6-50 mg by mouth 2 per (two) times tabletIndications: daily for 14 Other fracture of days. right femur, initial encounter for closed fracture traMADoL 50 mg Take 1 tablet 28 tablet 0 04/16/2020 Active tabletIndications: by mouth acute pain every 6 (six) hours as needed for Pain (scale 4-6). Indications: acute pain HYDROcodone-acetami Take 1 tablet 40 tablet 0 11/28/201904/15 Discontinued nophen 5-325 mg by mouth tabletIndications: every 6 (six) Closed displaced hours as oblique fracture of needed for shaft of left Pain (scale femur, initial 4-6). encounter traMADoL 50 mg Take 1 tablet 28 tablet 0 04/15/2020 04/16/2020 Discontinued tabletIndications: by mouth acute pain every 6 (six) hours as needed for Pain (scale 4-6) for up to 7 days. Indications: acute pain documented as of this encounter (statuses as of 04/16/2020) Active Problems Problem Noted Date Other fracture of right femur, initial encounter for c losed fracture 2020 Vitamin D deficiency 11/24/2019 Age-related osteoporosis with current pathological fra cture with routine 11/23/2019 healing COPD mixed type 11/23/2019 SHAMIR on CPAP 11/23/2019 Current chronic use of systemic steroids 11/23/2019 Mixed hyperlipidemia 11/23/2019 Gastroesophageal reflux disease without esophagitis Fracture, femur 11/22/2019 Closed displaced oblique fracture of shaft of left fem ur, initial 11/22/2019 encounter Overview: Added automatically from request for rm [id number] Arthritis of left hip 09/17/2017 Overview: Added automatically from request for rm [id number] Osteoarthritis of left hip, unspecified osteoarthritis type 10/14/2015 Left-sided low back pain with left-sided sciatica 10/2015 Trochanteric bursitis of left hip 10/14/2015 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 documented as of this encounter Last Filed Vital Signs Vital Sign Reading Time Taken Comments Blood Pressure 132/63 04/16/2020 11:20 AM CDT Pulse 73 04/16/2020 11:20 AM CDT Temperature 35.9 C (96.7 F) 04/16/2020 11:20 AM CDT Respiratory Rate 16 04/16/2020 11:20 AM CDT Oxygen Saturation 97% 04/16/2020 11:20 AM CDT Inhaled Oxygen Concentration - - Weight 127 kg (280 lb) 04/06/2020 8:27 PM CDT Height - - Body Mass Index 49.6 11/22/2019 8:30 PM CDT documented in this encounter Discharge Summaries Geovanny Dong MD - 04/16/2020 1:18 PM CDT Orthopedic Surgery Discharge Summary Date of Service: 04/16/2020 ADMIT DATE: 04/06/2020 DISCHARGE DATE: 04/16/2020 ATTENDING MD: Dr. Sullivan PCP: Rosenda Valadez PRIMARY DIAGNOSIS/REASON FOR ADMISSION Right periprosthetic subtrochanteric femur fracture FINAL DIAGNOSIS: (the reason, after study, for admitting the patient to the hospital): same SECONDARY DIAGNOSIS: (any diagnosis that, on this admission, required clinical evaluation, therapeutic treatment, diagnostic procedures, extended hospital stay, or additional nursing care/monitoring): Active Hospital Problems Diagnosis Date Noted Other fracture of right femur, initial encounter for closed fracture 2020 Resolved Hospital Problems No resolved problems to display. Patient Active Problem List Diagnosis Date Noted Other fracture of right femur, initial encounter for closed fracture 2020 Vitamin D deficiency 11/24/2019 Age-related osteoporosis with current pathological fracture with routine healing 11/23/2019 COPD mixed type 11/23/2019 SHAMIR on CPAP 11/23/2019 Current chronic use of systemic steroids 11/23/2019 Mixed hyperlipidemia 11/23/2019 Gastroesophageal reflux disease without esophagitis 11/23/2019 Fracture, femur 11/22/2019 Closed displaced oblique fracture of shaft of left femur, initial encounter 11/22/2019 Arthritis of left hip 09/17/2017 Osteoarthritis of left hip, unspecified osteoarthritis type 10/14/2015 Left-sided low back pain with left-sided sciatica 10/14/2015 Trochanteric bursitis of left hip 10/14/2015 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 She underwent the above procedures without complications. She was admitted to the hospital for PT/OT and pain control following surgery. On 04/16/20, her drain output was decreased and her drainswere pulled. She was discharged to SNF in good condition. CONDITION: good DIET: regular ACTIVITY: None weight bearing RLE DISCHARGE MEDICATIONS: Current Discharge Medication List START taking these medications Details enoxaparin (LOVENOX) 30 mg inject 30 mg under the skin every 12 (twelve) hours. Qty: 16.8 mL, Refills: 0 Start date: 04/15/2020, End date: 05/13/2020 Associated Diagnoses: Other fracture of right femur, initial encounter for closed fracture HYDROcodone-acetaminophen (NORCO) 1 tablet Take 1 tablet by mouth every 4 (four) hours as needed forPain (scale 7-10). Qty: 42 tablet, Refills: 0 Start date: 04/15/2020, End date: 04/22/2020 Associated Diagnoses: Other fracture of right femur, initial encounter for closed fracture sennosides-docusate sodium (SENOKOT-S) 1 tablet Take 1 tablet by mouth 2 (two) times daily. Qty: 28 tablet, Refills: 0 Start date: 04/15/2020, End date: 04/29/2020 Associated Diagnoses: Other fracture of right femur, initial encounter for closed fracture !! traMADoL (ULTRAM) 50 mg Take 50 mg by mouth every 6 (six) hours as needed for Pain (scale 4-6). Qty: 28 tablet, Refills: 0 Start date: 04/15/2020, End date: 04/22/2020 Associated Diagnoses: Other fracture of right femur, initial encounter for closed fracture !! - Potential duplicate medications found. Please discuss with provider. CONTINUE these medications which have NOT CHANGED Details !! traMADoL (ULTRAM) 50 mg Take 50 mg by mouth every 4 (four) hours as needed for Pain (scale 7-10). Qty: 40 tablet, Refills: 0 Associated Diagnoses: S/P ORIF (open reduction internal fixation) fracture; Closed bicondylar fracture of left femur, initial encounter ergocalciferol (vitamin D2) (ERGOCAL) 50,000 Units Take 50,000 Units by mouth weekly. Qty: 5 capsule, Refills: 0 Associated Diagnoses: Closed displaced oblique fracture of shaft of left femur, initial encounter doxycycline hyclate (Vibramycin) 100 mg Take 100 mg by mouth daily. Qty: 30 capsule, Refills: 11 Associated Diagnoses: Infection of prosthetic knee joint, subsequent encounter !! traMADoL (ULTRAM) 50 mg Take 50 mg by mouth every 8 (eight) hours as needed for Pain (scale 7-10). Qty: 90 tablet, Refills: 1 Associated Diagnoses: Infection of prosthetic knee joint, subsequent encounter predniSONE 20 mg tablet 1 PO BID x 4 days Qty: 8 tablet, Refills: 0 fluticasone/umeclidin/vilanter (TRELEGY ELLIPTA INHALE) Inhale as needed. meloxicam (MOBIC) 15 mg Take 15 mg by mouth daily. Qty: 30 tablet, Refills: 0 traZODONE 100 mg tablet TK 1 T PO ONCE A DAY Refills: 0 gabapentin 300 mg capsule Take one cap today, BID tomorrow, and then Qty: 90 capsule, Refills: 0 pantoprazole 40 mg EC tablet TK 1 T PO QD Refills: 6 atorvastatin (LIPITOR) 10 mg tablet TK 1 T PO QD Refills: 1 !! - Potential duplicate medications found. Please discuss with provider. STOP taking these medications HYDROcodone-acetaminophen (NORCO 5) 1 tablet Comments: Reason for Stopping: WOUND CARE: Keep incision clean and dry No showering DISCHARGE: Discharged: Home FOLLOW-UP APPOINTMENT: With Dr. Sullivan in 10-14 days. Patient was given discharge instructions. Associated attestation - Maricruz Sullivan II, MD - 04/16/2020 1:26 PM CDTI performed a history and physical examination of the patient and discussed the patient's managementwith the resident'. I reviewed the resident's note and agree with the documented findings and plan of care. Patient was discharged at this date and time: No discharge date for patient encounter. Maricruz Sullivan II, M.D. [employer] [facility] Medical Practice Manager Orthopaedic Surgery Pager: 04/16/2020 1:26 PM No discharge date for patient encounter. documented in this encounter Discharge Instructions AttachmentsThe following attachments cannot be sent through Care Everywhere. Femur Fracture Open Reduction and Internal Fixation (ORIF), Understanding (Macanese)Fall Prevention (Macanese)Acetaminophen; Hydrocodone tablets or capsules (Macanese)Surgical Site Infections, Preventing (Macanese)documented in this encounter Progress Notes Zachery De Leon MSW - 04/16/2020 3:57 PM CDTSw informed by ERNESTO Jacobs that [facility] needs physical copies of Pt's narcotic prescriptions signed. Tiarra paged ortho team. Awaiting response. Merrick De Leon LCSW Sap Bw Architect [facility] [phone] signed by Zachery De Leon MSW at 04/16/2020 3:58 PM CDTKelsi Fine OTA - 04/16/2020 2:56 PM CDTOCCUPATIONAL THERAPY NOTE: Discharge Recommendations: Therapy Needs and Potential:- Patient would benefit from continued skilled occupational therapy services to address: Decline in basic activities of daily living, Decline in instrumental activities of daily living, Decreased strength and Decreased endurance - Patient demonstrates good potential to improve and meet therapy goals with further skilled occupational therapy services. - Patient appears motivated to improve their B/IADLs and return to their previous level of function. - Patient demonstrates ability to tolerate at least 30-60 minutes of active participation in occupational therapy. - Patient able to follow commands: 1-step Yes, Multi-step Yes, Inconsistencies No Challenges to Home Transition:- Requires physical assistance for BADLS - Requires physical assistance for IADLS - Limited caregiver availability - Increased risk of falls Equipment Recommendations:Bedside commode and Overhead trapeze Precautions: WB: NWB R LE General: PPE Utilized: Gloves and Surgical mask, Fall Bracing: N/A S: Patient agreeable to participate in occupational therapy. Patient pleasant and cooperative with PENN this session, however refused to complete a standing pivot transfer. Patient stated she is waiting on transportation to go to SNF and she needs to be prepared. "i don't have time to do all this, plus i'm gonna get therapy when i get there." PAIN Pre-treatment: 5/10 pain at RLE. Post-treatment: 5/10 pain at RLE. Repositioning Provided and patient stated she already had her pain medications. O: Patient found semireclining in bed. R LE elevated. Patient seen this date for the following: ADL Training Grooming: SBA/Setup sitting up in bed UB Dressing: Minimal assist, but with poor effort noted from patient LB Dressing: Dependent. Patient refused to attempt this task. Patient educated on use of rotary dump operator and sock aid to assist with LB dressing due to reports of painwith hip flexion, and patient stated that she is familiar with equipment, as she has had this hip surgery before. Patient educated about fall prevention and safety awareness. Patient educated about the following: Adaptive equipment , Compensatory techniques/adaptive strategies, Fall prevention and WB restrictions. PENN observed and analyzed patient's body mechanics thru out session, especially during transitional movements and offered recommendations to improve techniques to reduce patient's fall risk and increase patient's overall safety during ADLs. Therapeutic Exercise/Procedure Patient seen for Towel/dowel and General strengthening : Patient performed Shoulder flexion/extension, Shoulder abduction/adduction and Elbow flexion/extension, Patient completed 2 sets of 10 reps, Patient required tactile and/or verbal cueing to perform exercises with correct technique Patient/caregiver returns demonstration x 10 repetitions as follows: Tactile and verbal cues provided for correct technique. Patient/caregiver verbalized understanding to all discussed. Patient left semireclining in bed with call ochoa in reach. Resting comfortably with all needs met. A: Patient exhibited Fair participation in therapy and responded well to treatment this session. Patient is progressing toward goal(s) 2, 3, 4 and 5. Pain, Poor endurance, Poor motivation and Persistent weakness remain(s) a limiting factor. P: Daily living activities and Therapeutic exercises to maximize patient's safety and independence with BADLs if patient remains in hospital. ISAMAR Driver Pager [phone] Supervising OTR: Sulma Miner Total Timed Treatment Codes: 41 Min Total Treatment Time: 41 Min Zachery Galvaiz MSW - 04/16/2020 2:36 PM CDT Care Management Discharge Disposition Note (DCDN) 5-2-1 Interventions: Disease specific education;Intensive medication reconciliation/management;Teachback;Clear discharge plan;Follow-up phone calls 5-2-1 Providers: Negative Notcher/Sap Bw Architect;Nurse 5-2-1 Patient Capacity Improvements: Avoidance of adverse events/readmission Discharge Plan for ongoing care and services: Residential Facility (SNF) Patient Choice completed for referred services: Yes Discussed with patient/patients family involved in decision making: Patient or family caregiver understands, and agrees with discharge plan. n/a discussed directly with patient Discharge Plan: Residential Facility (SNF) Discharge location(s): [facility] location: [address] [address] () [phone] (F) [phone] Community resources/referrals made or provided to patient: No Resources/Referrals: Mental Status: Alert & Oriented to Person,Place & Time Manage ADL indepentdly: Yes Living Arrangement: Home Other living arrangement: Address of living arrangement: [address] [facility] [address] Funding Resources: Medicare A & B Has patient been referred to [facility]/Renee? Nursing informed of discharge plan: No CHP referral sent? No CM medication request completed (if appropriate): N/A PCP: Yes Transportation: Ambulance Prior authorization obtained for ambulance:No Authorization number: CPT code: A0428 - Ambulance service, basic life support, non-emergency transport Discharge Medications Will the patient be able to obtain his medications? Yes Does the patient have transportation to to obtain the prescription medications? Yes CM Medication Request completed (if appropriate): Yes Name of RN informed: Arlene Expected discharge date: 04/16/2020 Time: Ambulance ETA 1700 Additional Information: SAND CUTTER informed. Ambulance ETA still TBD. CM/SW Name & Contact number: BERNADETTE Funk Ph. [phone] The following information has been provided to the facility noted above: reason for the patient discharge or transfer; patients physical and psychosocial status; summary of care, treatment, servicesprovided to patient; and the patient progress toward goals. Chandrika Velazco, VIDEO CONFERENCE SPECIALIST - 04/16/2020 12:55 PM CDT Physical Therapy Progress Note: Discharge Recommendations: Therapy Needs and Potential: Patient would benefit from continued physical therapy services to address: decline in bed mobility decline in transfers decline in gait and/or balance decline w/c mobility decreased strength decreased endurance Patient demonstrates good potential to improve and meet therapy goals with further physical therapy services. Patient appears motivated to improve their functional mobility and return to their previous levelof function. Patient demonstrates ability to tolerate atleast 30-60 minutes of physical therapy with active participation. Challenges to Home Transition: increased risk of falls decreased caregiver availability Equipment recommendations: wheelchair PAIN: denies pain PRECAUTIONS: Weight Bearing Precaution: NWB, Right, LE General Precautions: PPE used:Gloves and Surgical mask, General, Fall, Lines/Tubes, Posterior hip precautions, Drain right hip Bracing/Cast present or required:N/A S: Patient agreeable to working with PT. O: Patient met Supine. Patient seen for the following: Bed mobility: Rolling: Minimal assist Bridging: SBA/Setup with LLE Scooting in supine: SBA/Setup using bedrails Sitting balance Fair+ Supine to sit: SBA/Setup, patient requiring assistance for supporting RLE throughout transition, however able to lift RLE and bring it off bed Scooting to edge of bed: Minimal assist, patient cued for advancing hips forward and for leaning sideways Sit to supine: Minimal assist, patient requiring assistance for bringing RLE up into bed. Cued patient for correct body mechanics and for maintaining posterior hip precautions during transition Pt able to tolerate sitting for ~15 mins requiring supv for safety Pt reporting urge to void and was assisted for placing bedpan. Transfers: Pt refusing transfer training this day secondary to patient with c/o fatigue. Pt also refusing sitting in chair secondary to reporting it being uncomfortable and the day before staying in recliner chair for too long. Therapeutic exercise: patient educated in Energy conservation, Fall prevention, General strengthening, Safety awareness, WB restrictions and Hip precautions., instructed patient in the following: ankle pumps, quad sets, glut sets, adductor sets, heel slides, straight leg raises, long arc quads, patient/caregiver instructed to perform HEP 2 times per day, 20 repetitions., patient/caregiver demonstrates understanding of instructions. educated patient on correct technique for performing each exercise in sitting and supine positions After session, patient Supine on bedpan and call ochoa provided. RN notified. A: Patient tolerated session fair. Patient progressing toward goals #1, #3. P: PT will - progress towards current goals and will attemp to improve with mobility and transfers next session . Total Timed Tx Codes in Minutes: 32 Min Total Treatment Time in Minutes: 32 Min Chandrika Madison PTA Supervising PT Dillon TSoledad Thakkar Geovanny West MD - 04/16/2020 7:28 AM CDT Orthopedic Surgery Progress Note Date of Service: 04/16/2020 07:28 S: Layne Carvalho is a 70 year old female s/p right femur HWR and ORIF on 04/08/[address] Sullivan. 24 hour events: No acute events overnight. Patient feels well this morning. Denies any pain. Eating and drinking well. One drain removed yesterday. O: Temp: [35.9 C (96.7 F)-37.2 C (99 F)] Pulse: [69-83] Resp: [15-20] BP: (96-142)/(54-95) MAP (mmHg): [65-111] General: AAOX3; no apparent distress Cardiac: regular rate Pulmonary: unlabored respirations Extremity: RLE: Dressing in place; c,d,i. Drain in place with small amount of sanguineous output in canister. Motor grossly intact GS/TA/EHL/FHL, sensation intact to light touch in deep peroneal, superficial peroneal, tibial, sural, and saphenous distributions. Palpable pedal pulses. LABORATORY WBC x10^3 (/uL) Date Value 09/27/2014 11.5 (H) 09/26/2014 15.1 (H) WBC (10*3/L) Date Value 04/15/2020 9.98 04/12/2020 13.17 (H) THB ART (G/DL) Date Value 09/24/2014 9.6 (L) 09/24/2014 11.2 (L) 09/24/2014 12.4 (L) HGB Date Value 04/15/2020 7.6 g/dL (L) 04/12/2020 7.8 g/dL (L) 04/09/2020 9.3 g/dL (L) 09/27/2014 8.0 G/DL (L) 09/26/2014 7.7 G/DL (L) 09/25/2014 7.9 G/DL (L) PLT x10^3 (/uL) Date Value 09/27/2014 127 (L) 09/26/2014 125 (L) PLT (10*3/L) Date Value 04/15/2020 364 (H) 04/12/2020 202 HCT (%) Date Value 04/15/2020 23.6 (L) 09/27/2014 24.1 (L) Drain output: 50 cc A/P Layne Carvalho is a 70 year old female s/p right femur HWR and ORIF on 04/08/[address] Sullivan. Neuro- Pain controlled, Continue current regimen GI- Diet: regular Heme- Hb 7.6 on 04/15/20; asymptomatic ID- none M/S- NWB RLE Activity- PT/OT DVT Prophylaxis - Lovenox 30 mg BID Will discuss drain output this morning with faculty and possible removal. Disp: pending drain removal; possible removal today and discharge Geovanny Dong MD Orthopaedic Surgery Resident, PGY4 04/16/2020 07:28 Associated attestation - Maricruz Sullivan II, MD - 04/16/2020 9:20 AM CDTI performed a history and physical examination of the patient and discussed the patient's managementwith the resident. I reviewed the resident's note and agree with the documented findings and plan of care. Maricruz Sullivan II, M.D. [facility] [employer] [facility]opa[facility] Tra[facility] Medical Practice Manager Orthopaedic Surgery Pager: 04/16/2020 9:20 AM Adele Ferreira PTA - 04/15/2020 11:23 AM CDT Physical Therapy Progress Note: Discharge Recommendations: Therapy Needs and Potential: Patient would benefit from continued physical therapy services to address: decline in bed mobility decline in transfers decline in gait and/or balance decline w/c mobility decreased strength decreased endurance Patient demonstrates good potential to improve and meet therapy goals with further physical therapy services. Patient appears motivated to improve their functional mobility and return to their previous levelof function. Patient demonstrates ability to tolerate atleast 30-60 minutes of physical therapy with active participation. Challenges to Home Transition: increased risk of falls decreased caregiver availability Equipment recommendations: wheelchair PAIN: denies pain PRECAUTIONS: Weight Bearing Precaution: NWB, Right, LE General Precautions: PPE used:Gloves and Surgical mask, General, Fall, Lines/Tubes, Posterior hip precautions, Drain right hip Bracing/Cast present or required:N/A S: Patient agreeable to working with PT. O: Patient met Semi reclined in bed. Patient seen for the following: Bed mobility: Scooting in supine: SBA/Setup. Patient utilizes B handrails Sitting balance Fair+. Supine to sit: SBA/Setup. Patient utilizes B handrails Scooting to edge of bed: Minimal assist Sit to supine: SBA/Setup analyzed patients transition to sitting. Patient was able to grab R LE and assist it over to theEOB. Patient was able to sit unsupported at bedside x 15 minutes. Slight discomfort in R LE with leg in dependent position and requests to lay back down. Transfers: Sit to stand: Maximal assist using Rolling Walker Stand to sit: Moderate assist using Rolling Walker Static/dynamic standing balance: Poor Verbal cueing provided for correct hand placement and correct use of AD Attempted to stand x 2 and patient had difficulty dt weakness in L LE and B UE to support herselfin RW. She was able to keep R NWB with tactile and verbal cuing Therapeutic exercise: patient educated in Compensatory techniques/adaptive strategies, Deep breathing, Edema management, Energy conservation, Fall prevention, General strengthening, Joint protection, Positioning, Relaxation/breathing techniques and Safety awareness., instructed patient in the following: ankle pumps, toe flexion/extension, quad sets, glut sets, adductor sets, hamstring sets, heel slides, hip abduction/adduction, straight leg raises, short arc quads, patient/caregiver instructed to perform HEP 2 times per day, 20 repetitions., patient/caregiver demonstrates understanding of instructions. cued patient with correct exercise technique. After session, patient Semi reclined in bed and call ochoa provided. A: Patient tolerated session well. Patient progressing toward goals #1, #2, #3, #4. P: PT will - progress bed mobility and transfers Total Timed Tx Codes in Minutes: 40 Min Total Treatment Time in Minutes: 40 Min Adele Ferreira VIDEO CONFERENCE SPECIALIST #[id number] Supervising PT: Dillon Thakkar Geovanny West MD - 04/15/2020 6:11 AM CDT Orthopedic Surgery Progress Note Date of Service: 04/15/2020 06:11 S: Layne Carvalho is a 70 year old female s/p right femur HWR and ORIF on 04/08/[address] Sullivan. 24 hour events: No acute events overnight. Patient feels well. She would like to get out of bed. Dressing changed on rounds today. O: Temp: [36.3 C (97.3 F)-37.4 C (99.3 F)] Pulse: [77-89] Resp: [18-22] BP: (116-134)/(40-72) MAP (mmHg): [61-85] General: AAOX3; no apparent distress Cardiac: regular rate Pulmonary: unlabored respirations Extremity: RLE: Dressing removed and changed; incision with sutures in place. Drains in place with small amountof sanguineous output in canister. Motor grossly intact GS/TA/EHL/FHL, sensation intact to light touch in deep peroneal, superficial peroneal, tibial, sural, and saphenous distributions. Palpable pedalpulses. LABORATORY WBC x10^3 (/uL) Date Value 09/27/2014 11.5 (H) 09/26/2014 15.1 (H) WBC (10*3/L) Date Value 04/12/2020 13.17 (H) 04/09/2020 15.44 (H) THB ART (G/DL) Date Value 09/24/2014 9.6 (L) 09/24/2014 11.2 (L) 09/24/2014 12.4 (L) HGB Date Value 04/12/2020 7.8 g/dL (L) 04/09/2020 9.3 g/dL (L) 04/06/2020 12.9 g/dL 09/27/2014 8.0 G/DL (L) 09/26/2014 7.7 G/DL (L) 09/25/2014 7.9 G/DL (L) PLT x10^3 (/uL) Date Value 09/27/2014 127 (L) 09/26/2014 125 (L) PLT (10*3/L) Date Value 04/12/2020 202 04/09/2020 171 HCT (%) Date Value 04/12/2020 23.3 (L) 09/27/2014 24.1 (L) Drain output: 67 cc 7.5 cc A/P Layne Carvalho is a 70 year old female s/p right femur HWR and ORIF on 04/08/[address] Sullivan. Neuro- Pain controlled, Continue current regimen GI- Diet: regular Heme- Hb 7.8 on 04/12/20 with no further bleeding noted, repeat Hgb ordered this morning ID- none M/S- NWB RLE Activity- PT/OT DVT Prophylaxis - Lovenox 30 mg BID Will discuss drain output this morning with faculty and possible removal. Disp: pending drain removal; possible removal today and discharge Geovanny Dong MD Orthopaedic Surgery Resident, PGY4 04/15/2020 07:04 Associated attestation - Maricruz Sullivan II, MD - 04/15/2020 9:04 AM CDTI performed a history and physical examination of the patient and discussed the patient's managementwith the resident. I reviewed the resident's note and agree with the documented findings and plan of care. Maricruz Sullivan II, M.D. [facility] [employer] [facility] Tra[facility] Medical Practice Manager Orthopaedic Surgery Pager: 04/15/2020 9:04 AM Reza John MD - 04/14/2020 6:43 AM CDT Orthopedic Surgery Progress Note Date of Service: 04/14/2020 06:49 S: Layne Carvalho is a 70 year old female s/p right femur HWR and ORIF on 04/08/[address] Sullivan 24 hour events: No acute events overnight. Patient feels well this morning with minimal pain. Dressing was changed last night due to leaking from wick catheter but nurse noted no bleeding from wound atthe time. O: Temp: [36 C (96.8 F)-37.3 C (99.2 F)] Pulse: [72-82] Resp: [15-20] BP: (85-149)/(49-71) MAP (mmHg): [62-94] General: AAOX3; no apparent distress Cardiac: regular rate Pulmonary: unlabored respirations Extremity: RLE: Dressing c/d/i with no visible strike through. Drains in place with small amount of sanguineousoutput in canister. Motor grossly intact GS/TA/EHL/FHL, sensation intact to light touch in deep peroneal, superficial peroneal, tibial, sural, and saphenous distributions. Palpable pedal pulses. LABORATORY WBC x10^3 (/uL) Date Value 09/27/2014 11.5 (H) 09/26/2014 15.1 (H) WBC (10*3/L) Date Value 04/12/2020 13.17 (H) 04/09/2020 15.44 (H) THB ART (G/DL) Date Value 09/24/2014 9.6 (L) 09/24/2014 11.2 (L) 09/24/2014 12.4 (L) HGB Date Value 04/12/2020 7.8 g/dL (L) 04/09/2020 9.3 g/dL (L) 04/06/2020 12.9 g/dL 09/27/2014 8.0 G/DL (L) 09/26/2014 7.7 G/DL (L) 09/25/2014 7.9 G/DL (L) PLT x10^3 (/uL) Date Value 09/27/2014 127 (L) 09/26/2014 125 (L) PLT (10*3/L) Date Value 04/12/2020 202 04/09/2020 171 HCT (%) Date Value 04/12/2020 23.3 (L) 09/27/2014 24.1 (L) Drain output: 105cc 30cc A/P Layne Carvalho is a 70 year old female s/p right femur HWR and ORIF on 04/08/[address] Sullivan. Neuro- Pain controlled, Continue current regimen GI- Diet: regular Heme- Hb 7.2 on 04/12/20 with no further bleeding noted, consider rechecking ID- none M/S- NWB RLE Activity- PT/OT DVT Prophylaxis - Lovenox 30 mg BID Want <30 cc's to pull drains. Will continue to monitor output. Disp: pending PT/OT; drain removal Reza John MD Orthopaedic Surgery PGY-1 04/14/2020 Associated attestation - Patrick Edwards MD - 04/14/2020 9:04 AM CDT 04/14/2020 Patient seen and examined and agree with the noteOAly Lindquist DO - 04/13/2020 6:59 AM CDT Orthopedic Surgery Progress Note Date of Service: 04/13/2020 07:00 S: Layne Carvalho is a 70 year old female s/p right femur HWR and ORIF on 04/08/[address] Sullivan 24 hour events: No acute events overnight. Patient feels well this morning. Hgb dropped to 7.8, however patient is asymptomatic.Pain well controlled. Has been out of bed with PT/OT. Activity: NWB RLE O: Temp: [36.7 C (98 F)-37.6 C (99.7 F)] Pulse: [69-82] Resp: [16] BP: (125-179)/(53-103) MAP (mmHg): [71-128] General: AAOX3; no apparent distress Cardiac: regular rate Pulmonary: unlabored respirations Extremity: RLE: Incision with sutures in place. Drains in place. Motor grossly intact GS/TA/EHL/FHL, sensation intact to light touch in deep peroneal, superficial peroneal, tibial, sural, and saphenous distributions. Palpable pedal pulses. LABORATORY WBC x10^3 (/uL) Date Value 09/27/2014 11.5 (H) 09/26/2014 15.1 (H) WBC (10*3/L) Date Value 04/12/2020 13.17 (H) 04/09/2020 15.44 (H) THB ART (G/DL) Date Value 09/24/2014 9.6 (L) 09/24/2014 11.2 (L) 09/24/2014 12.4 (L) HGB Date Value 04/12/2020 7.8 g/dL (L) 04/09/2020 9.3 g/dL (L) 04/06/2020 12.9 g/dL 09/27/2014 8.0 G/DL (L) 09/26/2014 7.7 G/DL (L) 09/25/2014 7.9 G/DL (L) PLT x10^3 (/uL) Date Value 09/27/2014 127 (L) 09/26/2014 125 (L) PLT (10*3/L) Date Value 04/12/2020 202 04/09/2020 171 HCT (%) Date Value 04/12/2020 23.3 (L) 09/27/2014 24.1 (L) 04/12 0700 - 04/13 0659 In: 120 [Oral:120] Out: 1340 [Urine:1200; Drains:140] Drain output: 80 cc 60 cc A/P Layne Carvalho is a 70 year old female s/p right femur HWR and ORIF on 04/08/[address] Sullivan. Neuro- Pain controlled, Continue current regimen GI- Diet: regular Heme- Hgb 7.8 on 04/12; asymptomatic; continue to monitor ID- periop Ancef completed M/S- NWB RLE Activity- PT/OT DVT Prophylaxis - Lovenox 30 mg BID next dressing on 04/14/20 Want <30 cc's to pull drains. Will continue to monitor output. Disp: pending PT/OT; drain removal Aly Simons DO Orthopaedic Resident Associated attestation - Patrick Edwards MD - 04/13/2020 9:25 AM CDT 04/13/2020 Patient seen and examined and agree with the Zachery Gallegos MSW - 04/12/2020 3:00 PM CDT Care Management Discharge Disposition Note (DCDN) 5-2-1 Interventions: Disease specific education;Intensive medication reconciliation/management;Teachback;Clear discharge plan;Follow-up phone calls 5-2-1 Providers: Negative Notcher/Sap Bw Architect;Nurse 5-2-1 Patient Capacity Improvements: Avoidance of adverse events/readmission Discharge Plan for ongoing care and services: Residential Facility (SNF) Patient Choice completed for referred services: Yes Discussed with patient/patients family involved in decision making: Patient or family caregiver understands, and agrees with discharge plan. n/a. Discussed with Pt directly Discharge Plan: Residential Facility (SNF) Discharge location(s): [facility] location: [address] [address] () [phone] (F) [phone] Community resources/referrals made or provided to patient: No Mental Status: Alert & Oriented to Person,Place & Time Psychosocial issues and/or concerns resulting in patient being a high risk for re-admission: Manage ADL indepentdly: No Living Arrangement: Home Other living arrangement: Address of living arrangement: [address] [place] [address] Funding Resources: Medicare A & B Has patient been referred to [facility]/Renee? Nursing informed of discharge plan: No CHP referral sent? No CM medication request completed (if appropriate): N/A PCP: Yes Transportation: Ambulance Prior authorization obtained for ambulance:No Authorization number: CPT code: A0428 - Ambulance service, basic life support, non-emergency transport Discharge Medications Will the patient be able to obtain his medications? Yes Does the patient have transportation to to obtain the prescription medications? Yes CM Medication Request completed (if appropriate): Yes Expected discharge date: 04/13/2020 Time: when medically cleared CM/SW Name & Contact number: BERNADETTE Funk Ph. [phone] The following information has been provided to the facility noted above: reason for the patient discharge or transfer; patients physical and psychosocial status; summary of care, treatment, servicesprovided to patient; and the patient progress toward goals. Mitch Franklin MD - 04/12/2020 12:48 PM CDT Orthopedic Surgery Progress Note Date of Service: 04/12/2020 12:49 S: Layne Carvalho is a 70 year old female s/p right femur HWR and ORIF on 04/08/[address] Sullivan 24 hour events: No acute events overnight. Patient feels well this morning. Pain well controlled. Has been out of bed with PT/OT. Activity: NWB RLE O: Temp: [36.7 C (98 F)-36.9 C (98.4 F)] Pulse: [81-84] Resp: [16-18] BP: (92-179)/(45-103) MAP (mmHg): [57-128] General: AAOX3; no apparent distress Cardiac: regular rate Pulmonary: unlabored respirations Extremity: RLE: Incision with sutures in place. Drains in place. Motor grossly intact GS/TA/EHL/FHL, sensation intact to light touch in deep peroneal, superficial peroneal, tibial, sural, and saphenous distributions. Palpable pedal pulses. LABORATORY WBC x10^3 (/uL) Date Value 09/27/2014 11.5 (H) 09/26/2014 15.1 (H) WBC (10*3/L) Date Value 04/09/2020 15.44 (H) 04/06/2020 9.81 THB ART (G/DL) Date Value 09/24/2014 9.6 (L) 09/24/2014 11.2 (L) 09/24/2014 12.4 (L) HGB Date Value 04/09/2020 9.3 g/dL (L) 04/06/2020 12.9 g/dL 11/24/2019 11.4 g/dL (L) 09/27/2014 8.0 G/DL (L) 09/26/2014 7.7 G/DL (L) 09/25/2014 7.9 G/DL (L) PLT x10^3 (/uL) Date Value 09/27/2014 127 (L) 09/26/2014 125 (L) PLT (10*3/L) Date Value 04/09/2020 171 04/06/2020 184 HCT (%) Date Value 04/09/2020 28.3 (L) 09/27/2014 24.1 (L) 04/11 0700 - 04/12 0659 In: 120 [Oral:120] Out: 1340 [Urine:950; Drains:390] Drain output: 90 cc 300 cc A/P Layne Carvalho is a 70 year old female s/p right femur HWR and ORIF on 04/08/[address] Sullivan. Neuro- Pain controlled, Continue current regimen GI- Diet: regular Heme- Hgb 9.3 on 04/09; acute blood loss anemia, asymptomatic; continue to monitor ID- periop Ancef completed M/S- NWB RLE - d/c garcia Activity- PT/OT DVT Prophylaxis - Lovenox 30 mg BID Dressings changed today, next on 04/14/20 Drains continuing to have too much output. Want <30 cc's to pull drains. Will continue to monitoroutput. Disp: pending PT/OT; drain removal Mitch Rendon M.D. Orthopaedic Surgery PGY-1 Associated attestation - Maricruz Sullivan II, MD - 04/15/2020 8:58 AM CDTI performed a history and physical examination of the patient and discussed the patient's managementwith the resident. I reviewed the resident's note and agree with the documented findings and plan of care. Maricruz Sullivan II, M.D. [employer] Orthopaedic Trauma Medical Practice Manager Orthopaedic Surgery Pager: 04/15/2020 8:58 AM Zachery De Leon MSW - 04/12/2020 10:43 AM [id number]: Tiarra left message and contact info for admissions at [facility] . Per employee there Pt is medically approved, but not yet financially approved. Waiting for call back. 1230: Per ortho team Pt is not ready to discharge today. Tiarra informed Kalli in admission at [place]. She states they can take Pt over the weekend and made a note of it. Weekend team: Packet is on Pt's chart. Ambulance and [facility] are pended in communications tab. Please use ortho team pager or [employer] Web to inquire about discharge. Merrikc De Leon LCSW Sap Bw Architect [facility] [phone] signed by Zachery De Leon MSW at 04/12/2020 1:18 PM CDTCAdele fox PTA - 04/12/2020 10:40 AM CDT Physical Therapy Progress Note: Discharge Recommendations: Therapy Needs and Potential: Patient would benefit from continued physical therapy services to address: decline in bed mobility decline in transfers decline in gait and/or balance decreased strength decreased endurance Patient demonstrates good potential to improve and meet therapy goals with further physical therapy services. Patient appears motivated to improve their functional mobility and return to their previous levelof function. Challenges to Home Transition: increased risk of falls decreased caregiver availability Equipment recommendations: wheelchair PAIN: -Pain Location: right leg PRECAUTIONS: Weight Bearing Precaution: R LE NWB General Precautions: PPE used:Gloves and Surgical mask, General, Fall Bracing/Cast present or required:N/A S: Patient agreeable to working with PT exercises only. O: Patient met Up in chair. Patient seen for the following: Therapeutic exercise: patient educated in Compensatory techniques/adaptive strategies, Edema management, Energy conservation, Fall prevention, General strengthening, Joint protection, Relaxation/breathing techniques and Safety awareness., instructed patient in the following: ankle pumps, toe flexion/extension, quad sets, glut sets, adductor sets, heel slides, hip abduction/adduction, straight leg raises, short arc quads, patient/caregiver instructed to perform HEP 2 times per day, 15 repetitions., patient/caregiver demonstrates understanding of instructions. cued patient with correct exercise techniques Education provided with what NWB means and not to put weight through R LE After session, patient Up in chair and call ochoa provided. A: Patient tolerated therapeutic exercises well. Slow progress toward transitions dt weakness in L LE and NWB on R LE P: PT will - progress strength, endurance, ROM and mobility Total Timed Tx Codes in Minutes: 15 Min Total Treatment Time in Minutes: 15 Min Adele Ferreira VIDEO CONFERENCE SPECIALIST #[id number] Supervising PT: Dillon Thakkar Sulma Miner OT - 04/12/2020 9:26 AM CDTI was present and participated throughout the session and agree with the documentation as written bythe student therapist on the encounter dated 04/12/2020. RICKIE Cisneros, JAYLA OCCUPATIONAL THERAPY NOTE: Discharge Recommendations: Therapy Needs and Potential:- Patient would benefit from continued skilled occupational therapy services to address: Decline in basic activities of daily living, Decline in instrumental activities of daily living, Decreased strength and Decreased endurance - Patient demonstrates good potential to improve and meet therapy goals with further skilled occupational therapy services. - Patient appears motivated to improve their B/IADLs and return to their previous level of function. - Patient demonstrates ability to tolerate at least 30-60 minutes of active participation in occupational therapy. - Patient able to follow commands: 1-step Yes, Multi-step Yes, Inconsistencies No Challenges to Home Transition:- Requires physical assistance for BADLS - Requires physical assistance for IADLS - Limited caregiver availability - Increased risk of falls Equipment Recommendations:Bedside commode and Overhead trapeze Precautions: Weight bearing status: NWB R LE General: PPE Utilized: Gloves and Surgical mask, Fall and AJYNE drain x2 Bracing: N/A S: Patient agreeable to participate in occupational therapy. Patient reported she enjoyed sitting upin the chair yesterday. PAIN Pre-treatment: Does not rate/10 pain at right leg. Post-treatment: Does not rate/10 pain at right leg. Patient denies need for pain meds. O: Patient found semireclining in bed. Heels floating. Patient seen this date for the following: ADL Training Bed mobility: Moderate assist x2 Functional mobility: Dependent at this time; with nimesh lift for bed to chair transfers Grooming: SBA/Setup; oral care and washed face with items provided Feeding: Independent; drank water from hospital cup Toileting Hygiene: Dependent. Uses Purewick Patient left sitting upright in bedside chair with call ochoa in reach. Heels floating and MALINDA LE elevated. A: Patient exhibited Good participation in therapy and responded well to treatment this session. Patient is progressing toward goal(s) all. Pain, Poor endurance and Persistent weakness remain(s) a limiting factor. Patient continues to present with Decreased independence with ADL and Decreased strength /endurance for functional activity and will benefit from continued OT services to address above areas and improve functional status. Pt remains motivated to participate in therapy, but expresses some anxiety with movement, leading to occassional self-limiting behavior. Pt re-educated on importance of movement within weightbearing precautions during the healing process. Pt verbalizes understanding to all discussed. P: Functional motor treatment, Patient/Caregivier Education, Daily living activities, Therapeutic exercises and Neuromuscular Re-Education NEENA Lawler Total Timed Treatment Codes: 25 Min Total Treatment Time: 25 Min Ray Monterroso VIDEO CONFERENCE SPECIALIST - 04/11/2020 3:30 PM CDTPhysical Therapy Progress Note: Discharge Recommendations: Therapy Needs and Potential: Patient would benefit from continued physical therapy services to address: decline in bed mobility decline in transfers decline in gait and/or balance decreased strength decreased endurance Patient demonstrates good potential to improve and meet therapy goals with further physical therapy services. Patient demonstrates ability to tolerate atleast 30-60 minutes of physical therapy with active participation. Challenges to Home Transition: increased risk of falls decreased caregiver availability Equipment recommendations: wheelchair PAIN: denies pain PRECAUTIONS: Weight Bearing Precaution: NWB Right, LE General Precautions: PPE used:Gloves and Surgical mask, General, Fall, oxygen: Room air Bracing/Cast present or required:N/A S: Patient agreeable to working with PT but doesn't want to do too much due to food tray about to arrive. O: Patient met Up in chair. Patient seen for the following: Bed mobility: Rolling: Dependent while in chair to don nimesh sling educated patient in the benefits of donning the nimesh sling and not using melinda stedy due to NWB RLE at all times required Therapeutic exercise: patient educated in Deep breathing, General strengthening, Safety awareness and WB restrictions.Patient sitting and instructed in bilateral LE exercises x 15 reps to include: AP, Heel slides, and LAQ with AAROM on the Right side and AROM on the left side educated patient in the importance of NWB RLE during out of bed and during transfers After session, patient Up in chair, nimesh sling donned beneath patient, and call ochoa provided. A: Patient tolerated session fair. Patient progressing toward goals slowly. P: PT will - progress strength, endurance, ROM, and Mobility Lainey Kee PTA Pager # [phone] Sup PT Dillon Bijan Total Timed Tx Codes in Minutes: 28 Min Total Treatment Time in Minutes: 28 Min Zachery Galaviz MSW - 04/11/2020 10:59 AM CDTSocial Work Note Spoke with Pt regarding discharge planning. She states that she is interested in SNF based on her sessions with PT/OT. She is agreeable to [facility] as discussed on Wednesday. Sw sentreferral. Medically, Pt still has active drains. Per ortho team, Pt potentially can discharge tomorrow. Merrick De Leon LCSW [employer] [facility] [phone] Laynetaran Aguilarmanjinder Carvalho [id number] RE: Care Management Patient Choice Notification Your doctor has recommended that you have post-hospital care services at discharge. You can choose the provider you want, regardless of its relationship with [facility]. We will contact any of the agencieswithin the [facility] network, or any other agency upon your request. Based on where you live and agency service areas, a list was generated from: Medicare.gov Disclosure: [facility] owns or is affiliated with the following facilities/agencies: [facility] (long-term and rehabilitation) If you are being referred to a home health agency or long-term facility, you will also be given a [facility] Beneficiary Notification Letter (Orqizgb-ll-Uwdh Profile Supplement) informing you about [facility]'s preferred partners. 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 The hospital has given me a list of providers in the area available to me and/or my authorized retail customer service representative. My choice(s) are listed below: ? SNF/LTC: [facility], [address] [place] [phone] (Ph) [phone] (F) [phone] Your signature on this form indicates that you have been given the following information: ? I have been advised of my right to choose the providers I wish ? If long-term facilities, long-term acute care hospitals, personal care homes, or home healthagencies were recommended, I was given a list of facilities/agencies in my geographic area that deliver these services or ? I have pre-selected or am an established client with a facility/agency and choose to initiate/continue services verbal by Pt 04/11/20 Patient/Guardian/Responsible Alliance Party Signature Date Geovanny West MD - 04/11/2020 7:57 AM CDT Orthopedic Surgery Progress Note Date of Service: 04/11/2020 07:57 S: Layne Carvalho is a 70 year old female s/p right femur HWR and ORIF on 04/08/[address] [place] 24 hour events: No acute events overnight. Patient feels well this morning. Pain well controlled. Has been out of bed with PT/OT. Activity: NWB RLE O: Temp: [36.8 C (98.2 F)-37.1 C (98.8 F)] Pulse: [78-89] Resp: [18-20] BP: (128-143)/(42-68) MAP (mmHg): [59-93] General: AAOX3; no apparent distress Cardiac: regular rate Pulmonary: unlabored respirations Extremity: RLE: Incision with sutures in place. Drains in place. Motor grossly intact GS/TA/EHL/FHL, sensation intact to light touch in deep peroneal, superficial peroneal, tibial, sural, and saphenous distributions. Palpable pedal pulses. LABORATORY WBC x10^3 (/uL) Date Value 09/27/2014 11.5 (H) 09/26/2014 15.1 (H) WBC (10*3/L) Date Value 04/09/2020 15.44 (H) 04/06/2020 9.81 THB ART (G/DL) Date Value 09/24/2014 9.6 (L) 09/24/2014 11.2 (L) 09/24/2014 12.4 (L) HGB Date Value 04/09/2020 9.3 g/dL (L) 04/06/2020 12.9 g/dL 11/24/2019 11.4 g/dL (L) 09/27/2014 8.0 G/DL (L) 09/26/2014 7.7 G/DL (L) 09/25/2014 7.9 G/DL (L) PLT x10^3 (/uL) Date Value 09/27/2014 127 (L) 09/26/2014 125 (L) PLT (10*3/L) Date Value 04/09/2020 171 04/06/2020 184 HCT (%) Date Value 04/09/2020 28.3 (L) 09/27/2014 24.1 (L) 04/10 0700 - 04/11 0659 In: 480 [Oral:480] Out: 520 [Urine:250; Drains:270] Drain output: 30 cc 240 cc A/P Layne Carvalho is a 70 year old female s/p right femur HWR and ORIF on 04/08/[address] [place]. Neuro- Pain controlled, Continue current regimen GI- Diet: regular Heme- Hgb 9.3 on 04/09; acute blood loss anemia, asymptomatic; continue to monitor ID- periop Ancef completed M/S- NWB RLE - d/c garcia Activity- PT/OT DVT Prophylaxis - Lovenox 30 mg BID Disp: pending PT/OT; drain removal Geovanny Dong MD Orthopaedic Surgery Resident, PGY4 04/11/2020 07:57 Associated attestation - Maricruz [place], MD - 04/15/2020 8:56 AM CDTI performed a history and physical examination of the patient and discussed the patient's managementwith the resident. I reviewed the resident's note and agree with the documented findings and plan of care. Maricruz [place], M.D. [employer] [facility] Medical Practice Manager Orthopaedic Surgery Pager: 04/15/2020 8:56 AM Adele Ferreira PTA - 04/10/2020 3:13 PM CDTPhysical Therapy Progress Note: Discharge Recommendations: Therapy Needs and Potential: Patient would benefit from continued physical therapy services to address: decline in bed mobility decline in transfers decline in gait and/or balance decreased strength decreased endurance Patient demonstrates good potential to improve and meet therapy goals with further physical therapy services. Patient demonstrates ability to tolerate atleast 30-60 minutes of physical therapy with active participation. Challenges to Home Transition: increased risk of falls decreased caregiver availability Equipment recommendations: wheelchair PAIN: -Pain Description: constant -Pain Location: right leg -Pain rating before treatment: does not rate, After treatment: does not rate -Pain Management: Nursing Notified Patient complains of 10/10 pain in the R UE where the PICC line was inserted. Patient refuses to put any weight through R UE dt pain levels. Did not notice redness or swelling at pain site. RN notified. PRECAUTIONS: Weight Bearing Precaution: NWB General Precautions: PPE used:Gloves and Surgical mask, General, Fall Bracing/Cast present or required:N/A S: Patient agreeable to working with PT. Patient voices that she can not put weight through R UE and refuses to stand. Patient reluctant with sitting at EOB although agrees with encouragement. O: Patient met Semi reclined in bed. Patient seen for the following: Bed mobility: Supine to sit: Maximal assist x 2 people Scooting to edge of bed: Maximal assist Sit to supine: Maximal assist x 2 people Repositioned patient to head of bed: Dependent adjusted transition to help decrease wb through right UE dt pain sx's. Patient sat at EOB x 15 mins with fair - tolerance. She did not tolerate R LE in dependent position and the R LE was propped up during sitting activities Therapeutic exercise: patient educated in Compensatory techniques/adaptive strategies, Deep breathing, Fall prevention,General strengthening, Joint protection, Positioning, Relaxation/breathing techniques and Safety awareness., instructed patient in the following: ankle pumps, toe flexion/extension, glut sets, long arcquads, patient/caregiver instructed to perform HEP 2 times per day, 15 repetitions., patient/caregiver demonstrates understanding of instructions. cued patient correct exercise technique for maximum benifits. Education provided in regards to OOB activities and the importance to stand. Patient verbalizes understanding. After session, patient Semi reclined in bed and call ochoa provided. A: Patient tolerated session fair. Patient progressing toward goals #1, #3. Patient's progression limited by pain this session. RN notified. P: PT will - progress OOB activity and attempt (R NWB) stand if applicable next visit. Total Timed Tx Codes in Minutes: 30 Min Total Treatment Time in Minutes: 30 Min Adele Ferreira VIDEO CONFERENCE SPECIALIST #[id number] Supervising PT: Dillon Thakkar [place] Miner OT - 04/10/2020 11:20 AM CDTOCCUPATIONAL THERAPY NOTE: Discharge Recommendations: Therapy Needs and Potential:- Patient would benefit from continued skilled occupational therapy services to address: Decline in basic activities of daily living, Decline in instrumental activities of daily living, Decreased strength and Decreased endurance - Patient demonstrates good potential to improve and meet therapy goals with further skilled occupational therapy services. - Patient appears motivated to improve their B/IADLs and return to their previous level of function. - Patient demonstrates ability to tolerate at least 30-60 minutes of active participation in occupational therapy. - Patient able to follow commands: 1-step Yes, Multi-step Yes, Inconsistencies No Challenges to Home Transition:- Requires physical assistance for BADLS - Requires physical assistance for IADLS - No caregiver support - Increased risk of falls - Environmental barriers Equipment Recommendations:Bedside commode and Overhead trapeze Precautions: Weight bearing status: NWB R LE; JAYNE drains General: PPE Utilized: Gloves and Surgical mask and Fall Bracing: N/A S: Patient agreeable to participate in occupational therapy. PAIN Pre-treatment: 02/18 pain at right leg. Post-treatment: 8/10 pain at right leg. Nursing Notified and Pain Meds given. O: Patient found semireclining in bed. R LE elevated. Patient seen this date for the following: ADL Training Bed mobility to EOB with max assist x 2 Return to semi-reclined in bed with max assist x 2 Patient maintains WB precautions throughout session. Patient educated about the following adaptive equipment: BSC. Neuromuscular Re-Education Patient sustains static sitting balance x 15 minutes with fluctuating levels of SBA/Setup and Minimal assist. Patient left semireclining in bed with call ochoa in reach. R LE elevated. A: Patient exhibited Good participation in therapy and responded well to treatment this session. Patient is progressing toward goal(s) all. Pain, Poor endurance and Persistent weakness remain(s) a limiting factor. Patient continues to present with Decreased independence with ADL and Decreased strength /endurance for functional activity and will benefit from continued OT services to address above areas and improve functional status. Pt with increased tolerance for EOB activity today. Continues to require increased encouragement throughout due to pain. P: Patient/Caregivier Education, Equipment recommendations and Daily living activities RICKIE Cisneros, MOT Total Timed Treatment Codes: 40 Min Total Treatment Time: 40 Min Geovanny West MD - 04/10/2020 6:56 AM CDT Orthopedic Surgery Progress Note Date of Service: 04/10/2020 06:56 S: Layne Carvalho is a 70 year old female s/p right femur HWR and ORIF on 04/08/[address] [place] 24 hour events: No acute events overnight. Patient says she slept well overnight. Pain well controlled in the right leg. Was able to work with PT/OT yesterday. Activity: NWB RLE O: Temp: [36.7 C (98.1 F)-38 C (100.4 F)] Pulse: [91-102] Resp: [14-18] BP: (120-145)/(60-78) MAP (mmHg): [75-92] General: AAOX3; no apparent distress Cardiac: regular rate Pulmonary: unlabored respirations Extremity: RLE: Incision with sutures in place; dressing changed on rounds. Drains in place. Motor grossly intact GS/TA/EHL/FHL, sensation intact to light touch in deep peroneal, superficial peroneal, tibial, sural, and saphenous distributions. Palpable pedal pulses. LABORATORY WBC x10^3 (/uL) Date Value 09/27/2014 11.5 (H) 09/26/2014 15.1 (H) WBC (10*3/L) Date Value 04/09/2020 15.44 (H) 04/06/2020 9.81 THB ART (G/DL) Date Value 09/24/2014 9.6 (L) 09/24/2014 11.2 (L) 09/24/2014 12.4 (L) HGB Date Value 04/09/2020 9.3 g/dL (L) 04/06/2020 12.9 g/dL 11/24/2019 11.4 g/dL (L) 09/27/2014 8.0 G/DL (L) 09/26/2014 7.7 G/DL (L) 09/25/2014 7.9 G/DL (L) PLT x10^3 (/uL) Date Value 09/27/2014 127 (L) 09/26/2014 125 (L) PLT (10*3/L) Date Value 04/09/2020 171 04/06/2020 184 HCT (%) Date Value 04/09/2020 28.3 (L) 09/27/2014 24.1 (L) 04/08 2300 - 04/09 2259 In: - Out: 530 [Urine:250; Drains:280] Drain output: 180 cc 280 cc A/P Layne Carvalho is a 70 year old female s/p right femur HWR and ORIF on 04/08/[address] [place]. Neuro- Pain controlled, Continue current regimen GI- Diet: regular Heme- Hgb 9.3 yesterday; acute blood loss anemia, asymptomatic; continue to monitor ID- periop Ancef completed M/S- NWB RLE - d/c garcia Activity- PT/OT DVT Prophylaxis - Lovenox 30 mg BID Disp: pending PT/OT Geovanny Dong MD Orthopaedic Surgery Resident, PGY4 04/10/2020 06:56 Associated attestation - Maricruz [place], MD - 04/15/2020 8:57 AM CDTI performed a history and physical examination of the patient and discussed the patient's managementwith the resident. I reviewed the resident's note and agree with the documented findings and plan of care. Maricruz [place], M.D. [employer] [facility] Tra[facility] Medical Practice Manager Orthopaedic Surgery Pager: 04/15/2020 8:56 AM Zachery De Leon MSW - 04/09/2020 10:20 AM CDTCare Management Social Functional Assessment Patient Name: Layne Carvalho Age: [age] year old Sex: female Patient's Previous Admission Date at [facility]: 11/22/2019 Current diagnosis and co-morbidities: FRACTURE OF RIGHT FEMUR Readmission Questions: Was patient discharged from any acute care hospital within the last 30 days: No Social Functional Assessment: Primary language spoken/preferred: Macanese Mental Status: Alert & Oriented to Person,Place & Time Information given by: Self Patient's support system: Child;Other Name and number of support system: Luann Murphy, sister [phone]; Soren De Leon, son [phone] Primary Director Operations: Self MPOA: No Living Arrangement: Home Address of living arrangement : [address] [address] Persons living in home: Self Barriers to returning home: None Baseline functional status- ambulation: Independent Functional status-baseline personal care: Independent Baseline functional status- driving: Independent Baseline functional status- grocery shopping: Independent Functional status-baseline housekeeping: Independent Functional status-baseline meal prep: Independent Current functional status same as prior: No(Pending PT/OT) Do you have a PCP?: Yes Name of PCP: Rosenda Valadez Home Health Care Agency: Yes Name of Home Health Agency: [address] [address] () [phone] (F) [phone] Previous or current Home Health Care Agency: Previous Provider Services: No DME Company: No Equipment: Walker;Rollator;Bedside Commode Hemodialysis: No Community resources utilized: SSA/SSI/Medicaid Funding Resources: Medicare A & B Prescription coverage plan: Medicare Part D Pharmacy where meds are filled: ([facility]) Anticipated services prior to disharge: PT/OT/ST Expected mode of discharge transportation: Personal vehicle;Wheelchair van Additional info required for discharge planning: Pending P/T O/T recommendation Recommended discharge plan: Update/Resume HH orders;DME Referral;New placement SFA Complete: Social Functional Assessment complete: Yes Alcohol Use Screening (AUDIT-C) How often do you have a drink containing alcohol?: Never SCORE: 0 Merrick De Leon LCSW [employer] [facility] [phone] Any issues or concerns with obtaining/affording your medications at home: no. Are you or your support system able to pickle pumper medications at discharge: yes. Describe: family. Role of Care Management explained. Merrick De Leon LCSW [employer] [facility] [phone] signed by Zachery De Leon MSW at 04/09/2020 10:21 AM Geovanny West MD - 04/09/2020 7:25 AM CDT Orthopedic Surgery Progress Note Date of Service: 04/09/2020 07:25 S: Layne Carvalho is a 70 year old female s/p right femur HWR and ORIF on 04/08/[address] [place] 24 hour events: No acute events overnight. Patient feeling well this morning. Denies pain in her right leg. Activity: NWB RLE O: Temp: [35.3 C (95.6 F)-36.7 C (98 F)] Heart Rate (monitor): [105-112] Pulse: [91-112] Resp: [11-22] BP: (106-135)/(68-93) MAP (mmHg): [84-98] General: AAOX3; no apparent distress Cardiac: regular rate Pulmonary: unlabored respirations Extremity: RLE: Dressings clean, dry, and intact. Drains in place. Motor grossly intact GS/TA/EHL/FHL, sensation intact to light touch in deep peroneal, superficial peroneal, tibial, sural, and saphenous distributions. Palpable pedal pulses. LABORATORY WBC x10^3 (/uL) Date Value 09/27/2014 11.5 (H) 09/26/2014 15.1 (H) WBC (10*3/L) Date Value 04/06/2020 9.81 11/24/2019 12.88 (H) THB ART (G/DL) Date Value 09/24/2014 9.6 (L) 09/24/2014 11.2 (L) 09/24/2014 12.4 (L) HGB Date Value 04/06/2020 12.9 g/dL 11/24/2019 11.4 g/dL (L) 11/22/2019 13.4 g/dL 09/27/2014 8.0 G/DL (L) 09/26/2014 7.7 G/DL (L) 09/25/2014 7.9 G/DL (L) PLT x10^3 (/uL) Date Value 09/27/2014 127 (L) 09/26/2014 125 (L) PLT (10*3/L) Date Value 04/06/2020 184 11/24/2019 211 HCT (%) Date Value 04/06/2020 38.2 09/27/2014 24.1 (L) 04/08 0700 - 04/09 0659 In: 2920 [Oral:120; I.V.:2800] Out: 1375 [Urine:665; Drains:460] Drain output: 180 cc 280 cc A/P Layne Carvalho is a 70 year old female s/p right femur HWR and ORIF on 04/08/[address] [place]. Neuro- Pain controlled, Continue current regimen GI- Diet: regular Heme- Hgb pending this AM ID- periop Ancef M/S- NWB RLE - no issues Activity- PT/OT DVT Prophylaxis - Lovenox 30 mg BID Disp: pending PT/OT Geovanny Dong MD Orthopaedic Surgery Resident, PGY4 04/09/2020 09:04 Associated attestation - Maricruz [place], MD - 04/09/2020 10:45 PM CDTI performed a history and physical examination of the patient and discussed the patient's managementwith the resident. I reviewed the resident's note and agree with the documented findings and plan of care. Maricruz [place] II, M.D. [employer] Orthopaedic Trauma Medical Practice Manager Orthopaedic Surgery Pager: 04/09/2020 10:45 PM Geovanny Dong MD - 04/08/2020 5:25 PM CDTORTHO POST-OP CHECK AND PLAN Pt resting comfortably on the floor. VSS, A&O, breathing comfortably. Dressings c/d/i. Palpable DP pulse, motor intact to toes, SILT all distributions. Anesthesia block: none Pain control: multimodal Diet: regular Activity: NWB RLE Drains: 2 hemovac drains Garcia: in place Labs: AM CBC and BMP DVT prophylaxis: Lovenox ABX: periop Ancef XR: completed in the OR A/P: Pt s/p right femur HWR and ORIF. No post-op complications. Geovanny Dong MD 04/08/2020 17:25 Associated attestation - Maricruz [place], MD - 04/09/2020 10:49 PM CDTI talked with the resident about the patient and was actively involved in the development of a plan of care. Maricruz [place] II, M.D. [employer] Orthopaedic Trauma Medical Practice Manager Orthopaedic Surgery Pager: 04/09/2020 10:49 PM Maricruz [place], MD - 04/08/2020 2:41 PM CDT Orthopaedics Brief Operative Note 04/08/2020 2:41 PM Full Operative Dictation to Follow Pre operative diagnosis: 1. Right periprostetic subtrochanteric femur fracture Post operative diagnosis: Same Procedure: 1. ORIF right periprostetic subtrochanteric femur fracture CPT Code: 48638 Plate IT/Per/Sub Troch 2. Removal deep implants right femur CPT Code: 91920 RemDeepImp Surgeon: Maricruz [place], M.D. Residents: Valdemar Dong Anesthesia: general - GETA EBL: 200 ml Fluids: 1.8 liters Urine: not recorded Tourniquet: none Implants: Implant Name Type Inv. Item Serial No. Route Rider Lot No. LRB No. Used Action SpeedTitan Implant, [id number] Curio [id number] Right 1 Implanted SpeedTitan Implant, [id number] Curio [id number] Right 1 Implanted 4.5mm LCP Proximal Femur Hook Plate, 10 Hole, 277mm 0 [place] [id number] Right 1 Implanted SCREW BONE COMPRESION LOCKING 5.0MM 14MML DEPUY REF#[id number] - S0 SCREW BONE COMPRESION LOCKING5.0MM 14MML DEPUY REF#[id number] 0 [employer] [id number] Right 1 Implanted connecting screw f/lckng attachment 0 [employer] [id number] Right 1 Implanted 3.5mm locking attachment plate, 4.5mm LCP plate, 8 hole 0 [place] [id number] Right 1 Implanted 3.5mm locking attachment plate, 4.5mm LCP plate, 4 hole 0 [place] [id number] Right 1 Implanted SCREW 5.0MM PERIPROSTHETIC LCKING SLF-TPING STRDRV 18MM DEPUY REF#[id number] - S0 SCREW 5.0MM PERIPROSTHETIC LCKING SLF-TPING STRDRV 18MM DEPUY REF#[id number] 0 Depuy Synthes [id number] Right 1 Implanted connecting screw f/lckng attachment PL 0 [employer]iti[employer]ox Synthes [id number] Right 1 Implanted SCREW 5.0MM PERIPROSTHETIC LCKING SLF-TPING STRDRV 18MM DEPUY REF#[id number] - S0 SCREW 5.0MM PERIPROSTHETIC LCKING SLF-TPING STRDRV 18MM DEPUY REF#[id number] 0 Depuy Synthes [id number] Right 1 Implanted SCREW 5.0MM PERIPROSTHETIC LCKING SLF-TPING STRDRV 18MM DEPUY REF#[id number] - S0 SCREW 5.0MM PERIPROSTHETIC LCKING SLF-TPING STRDRV 18MM DEPUY REF#[id number] 0 Depuy Synthes [id number] Right 2 Implanted SCREW, SYNTHES 3.5MM LCKNG SLF-T W/STAR REC 16MM #212.104 - S0 SCREW SCREW, SYNTHES 3.5MM LCKNG SLF-T W/STAR REC 16MM #212.104 0 Synthes 0 Right 1 Implanted SCREW, SYNTHES 3.5MM LCKNG SLF-T W/STAR REC 24MM #212.108 - S0 SCREW SCREW, SYNTHES 3.5MM LCKNG SLF-T W/STAR REC 24MM #212.108 0 Synthes 0 Right 1 Implanted SCREW, SYNTHES 3.5MM LCKNG SLF-T W/STAR REC 26MM #212.109 - S0 SCREW SCREW, SYNTHES 3.5MM LCKNG SLF-T W/STAR REC 26MM #212.109 0 Synthes 0 Right 1 Implanted SCREW, SYNTHES 3.5MM LCKNG SLF-T W/STAR REC 30MM #212.111 - S0 SCREW SCREW, SYNTHES 3.5MM LCKNG SLF-T W/STAR REC 30MM #212.111 0 Synthes 0 Right 1 Implanted SCREW, SYNTHES 3.5MM LCKNG SLF-T W/STAR REC 32MM #212.112 - S0 SCREW SCREW, SYNTHES 3.5MM LCKNG SLF-T W/STAR REC 32MM #212.112 0 Synthes 0 Right 4 Implanted SCREW, SYNTHES 3.5MM LCKNG SLF-T W/STAR REC 34MM #212.113 - S0 SCREW SCREW, SYNTHES 3.5MM LCKNG SLF-T W/STAR REC 34MM #212.113 0 Synthes 0 Right 1 Implanted SCREW, SYNTHES 3.5MM CORTEX SLF-T 34MM #204.834 - S0 SCREW SCREW, SYNTHES 3.5MM CORTEX SLF-T 34MM #204.834 0 Synthes 0 Right 1 Implanted PLATE, 3.5 LCP RECONSTRUCTION 7H/98MM #245.071 - S0 PLATE, 3.5 LCP RECONSTRUCTION 7H/98MM #245.071 0 Synthes 0 Right 1 Implanted SCREW, SYNTHES 3.5MM LCKNG SLF-T W/STAR REC 28MM #212.110 - S0 SCREW SCREW, SYNTHES 3.5MM LCKNG SLF-T W/STAR REC 28MM #212.110 0 Synthes 0 Right 4 Implanted SCREW, SYNTHES 3.5MM CORTEX SLF-T 26MM #204.826 - SN/A SCREW SCREW, SYNTHES 3.5MM CORTEX SLF-T 26MM #204.826 N/A Synthes N/A Right 2 Implanted SCREW, SYNTHES 3.5MM LCKNG SLF-T W/STAR REC 10MM #212.101 - S0 SCREW SCREW, SYNTHES 3.5MM LCKNG SLF-T W/STAR REC 10MM #212.101 0 Synthes 0 Right 1 Implanted SCREW, SYNTHES 3.5MM CORTEX SLF-T 10MM #204.810 - S0 SCREW SCREW, SYNTHES 3.5MM CORTEX SLF-T 10MM #204.810 0 Synthes 0 Right 1 Implanted DBM PUTTY MAXXEUS 10CC CTS #2017- - [id number] BONE DBM PUTTY MAXXEUS 10CC CTS #2017- [id number] [facility] [employer] [facility] 0 Right 1 Implanted BONE, [facility] [employer] CANCELLOUS CRUSHED 15CC FREEZE DRIED #1003-12 - [id number] BONE BONE, [facility] [employer] CANCELLOUS CRUSHED 15CC FREEZE DRIED #1003-12 [id number] [facility] Services [id number] Right 1 Implanted SCREW, SYNTHES 4.5MM CORTEX SLF-T 66MM #214.866 - S0 SCREW SCREW, SYNTHES 4.5MM CORTEX SLF-T 66MM #214.866 0 Synthes 0 Right 1 Implanted SCREW, SYNTHES 4.5MM CORTEX SLF-T 70MM #214.870 - S0 SCREW SCREW, SYNTHES 4.5MM CORTEX SLF-T 70MM #214.870 0 Synthes 0 Right 1 Implanted 4.5mm x 90mm cortex screw 0 Depuy Synthes 0 Right 1 Implanted SCREW, SYNTHES 5.0MM MARVA CONICAL 50MM #[id number] - S0 SCREW SCREW, SYNTHES 5.0MM MARVA CONICAL 50MM#02.205.250 0 Synthes 0 Right 1 Implanted SCREW, SYNTHES 5.0MM MARVA CONICAL 55MM #[id number] - S0 SCREW SCREW, SYNTHES 5.0MM MARVA CONICAL 55MM#[id number] 0 Synthes 0 Right 2 Implanted SCREW, SYNTHES 5.0MM MARVA LCKNG 55MM #[id number] - S0 SCREW SCREW, SYNTHES 5.0MM MARVA LCKNG 55MM #[id number] 0 Synthes 0 Right 2 Implanted SCREW, SYNTHES 5.0MM LCKNG SLF-T W/T25 STAR REC 16MM #[id number] - S0 SCREW SCREW, SYNTHES 5.0MM LCKNG SLF-T W/T25 STAR REC 16MM #212.202 0 Synthes 0 Right 2 Implanted SCREW, SYNTHES 5.0MM LCKNG SLF-T W/T25 STAR REC 40MM #212.214 - S0 SCREW SCREW, SYNTHES 5.0MM LCKNG SLF-T W/T25 STAR REC 40MM #212.214 0 Synthes 0 Right 1 Implanted SCREW, SYNTHES 7.3MM MARVA CONICAL 55MM #[id number] - S0 SCREW SCREW, SYNTHES 7.3MM MARVA CONICAL 55MM#[id number] 0 Synthes 0 Right 1 Implanted SCREW, SYNTHES 7.3MM MARVA CONICAL 70MM #[id number] - S0 SCREW SCREW, SYNTHES 7.3MM MARVA CONICAL 70MM#[id number] 0 Synthes 0 Right 1 Implanted SCREW, SYNTHES 7.3MM MARVA LCKNG 55MM #[id number] - S0 SCREW SCREW, SYNTHES 7.3MM MARVA LCKNG 55MM #[id number] 0 Synthes 0 Right 2 Implanted SCREW, SYNTHES 7.3MM MARVA LCKNG 70MM #[id number] - S0 SCREW SCREW, SYNTHES 7.3MM MARVA LCKNG 70MM #[id number] 0 Synthes 0 Right 2 Implanted Findings: stable fixation Specimens: none Drains: HVx2 stitched in Complications: none Disposition: to floor Maricruz Sullivan II, M.D. [facility] Medical Practice Manager Orthopaedic Surgery Pager: 04/08/2020 2:41 PM documented in this encounter H&P Notes Maricruz Sullivan II, MD - 04/08/2020 6:37 AM CDTOrthopaedic Pre-Operative Note 04/08/2020 6:38 AM Had a discussion with Layne Carvalho about their upcoming procedure/surgery. The discussed procedure was removal deep implant right femur and ORIF subtroanteric femur fracture. The risk, benefits, and alternatives to treatment were discussed of this options as well as non-operative treatment. The risks discussed where as follows, but not limited to chance of heart attack, chance of stroke, chance of , infection from the procedure/surgery, bleeding from the procedure/surgery, possible need for blood transfusions, symptomatic implants, malunion of fracture , nonunion of fracture, damage to nerves/arteries/veins/tendons/bones/skin/muscle/ligaments, need for further surgeries, blood clots with specfic focus on blood clots of the extremties (deep vein thrombosis) and blood clots of the lungs (pulmonary embolism). Layne Carvalho understood the risks, all questions were answered and Layne Carvalho would like to proceed with removal deep implant right femur and ORIF subtroanteric femur fracture. Please see informed consent statement below. 2020 H&P reviewed including review of system and no changes. Patient had right leg marked personally by me. Physical exam before procedure/surgery is as follows: Gen: NAD RLE: 5/5 EHL ankle plantar/dorsi flexion, SILT sural/sapheous/tibial/sP/DP nerves, 2+ PT/Dp pulses Maricruz Sullivan II, M.D. [facility] Medical Practice Manager Orthopaedic Surgery Pager: 04/08/2020 6:38 AM Informed consent discussed with the patient, including: condition, proposed care, treatments and services, alternative forms of treatment, and risks of no treatment. Details discussed around the procedures to be used, and the risks and hazards involved, potential benefits, and side effects of the patients proposed care, treatment, and services; the likelihood of the patient achieving his or her goals; and any potential problems that might occur during recuperation. Reasonable alternative also discussed with the patients proposed care, treatment, and services. The discussion encompasses risks, benefits, and side effects related to the alternative and risks related to not receiving the proposed care, treatment, and services. Aly Varma DO - 04/06/2020 10:20 PM CDT Orthopedic Surgery H&P Note Date: 04/06/2020 Referring Provider: AUSTEN Reason for Referral: Right femur periprosthetic fracture HPI: Layne Carvalho is a 69 year old female PMH of COPD and extensive bilateral lower extremityorthopedic history who presents with a Right proximal femur fracture. She said she took a step on flat surface and felt and heard a crack. She has pain in the posterior hip, thigh and knee on the right side. She denies falling, as she was using her walker and was able to sit immediately. Has not beenable to bear weight since the injury. She denies numbness. She reports a history of bilateral femur fractures requiring ORIF when she was 19 yrs old that was complicated by infection, requiring removal of her hardware (with some hardware unable to be removed from her left femur). She reports having bilateral knee TKAs done in [place] in 1997. The right TKAwas complicated by infections in 2010 (resection on 10/08/2010, replant on 12/18/2010) and 2012 requiring multiple surgical interventions (resection on 09/26/2012, R revision TKA performed on 12/14/2012), also with R femur and tib-fib periprosthetic fracture requiring surgical intervention (04/16/2014), most recently a right knee revision arthroplasty and femur ORIF on 09/24/2014 for R distal femur failed ORIF for periprosthetic fracture. Has longstanding left hip pain due to osteoarthritis, but L ISAIAH deferred at last clinic appointment in 2018 due to necessity to lose weight. Lives in [facility] [address] [place] [id number]. . Insurance status: Medicare ROS: General: denies fevers, chills Pulm: denies cough, SOB Cards: denies chest pain, palpitations Neuro: denies sensation changes, feelings of weakness HEENT: denies changes in vision, changes in hearing, difficulty swallowing GI: denies nausea, vomiting, diarrhea : denies dysuria MSK: denies weakness PMH: Past Medical History: Diagnosis Date Asthma COPD (chronic obstructive pulmonary disease) Esophageal reflux Fibromyalgia Hyperlipidemia Shingles Sleep apnea PSH: Past Surgical History: Procedure Laterality Date ANTIBIOTIC SPACER PLACEMENT 09/26/2012 Surgeon: Patrick Roman MD; [facility] ANTIBIOTIC SPACER REMOVAL 12/14/2012 Surgeon: Patrick Roman MD; [facility]: [facility] FEMUR INTRAMEDULLARY NAILING Left 11/23/2019 Surgeon: J Carlos Remy MD; [facility] FEMUR ORIF Early 1970s FEMUR ORIF Right 04/16/2014 Surgeon: Butch Kohler MD; Location: [facility] FEMUR ORIF Left 11/23/2019 Surgeon: J Carlos Remy MD; [facility] KNEE RESECTION ARTHROPLASTY 09/26/2012 Surgeon: Patrick Roman MD; Location: [facility] LUMBAR EPIDURAL STEROID INJECTION Left 01/20/2016 Surgeon: Casper Arias MD; [facility] OPEN KNEE DEBRIDEMENT 01/07/2011 Surgeon:PATRICK ROMAN; [facility] SACROILIAC JOINT INJECTION 09/21/2016 SACROILIAC JOINT INJECTION Left 09/21/2016 Surgeon: Casper Arias MD; [facility] TIBIA ORIF Right 04/16/2014 Surgeon: Butch Kohler MD; [facility]: [facility] TOTAL KNEE ARTHROPLASTY 1998 Bilateral TOTAL KNEE ARTHROPLASTY REVISION 12/18/2010 Surgeon:PATRIKC ROMAN; [facility] TOTAL KNEE ARTHROPLASTY REVISION 12/14/2012 Surgeon: Patrick Roman MD; [facility]: [facility] TOTAL KNEE ARTHROPLASTY REVISION Right 09/24/2014 Surgeon: Butch Kohler MD; [facility]: [facility] TRANSFORAMINAL EPIDURAL INJECTION (SHX) 09/21/2016 TRANSFORAMINAL EPIDURAL INJECTION (SHX) Left 09/21/2016 Surgeon: Casper Arias MD; [facility] TRANSFORAMINAL EPIDURAL STEROID INJECTION 01/20/2016 SOC Hx: - Tobacco: None - Alcohol: None ALLERGIES Allergies Allergen Reactions Xanax [Alprazolam] Hallucinations Zinc Rash Physical Exam: BP 136/69 | Pulse 68 | Temp 36.9 C (98.4 F) (Oral) | Resp 18 | Wt 127 kg (280 lb) | SpO2 95% | BMI 49.60 kg/m Gen: patient alert and awake. Cooperative and comfortable Pulm: breathing comfortably on room air, non-labored Cards: regular rate HEENT: EOM grossly intact, No lacerations or hematomas GI: not examined : not examined MSK/EXT: Right lower extremity - Multiple thigh and knee scars apparent, no obvious deformity. - + TTP posterolateral thigh - Motor intact TA/GS/EHL/FHL, - Sensation intact to light touch - palpable pedal pulses LABS: CBC WBC x10^3 (/uL) Date Value 09/27/2014 11.5 (H) WBC (10*3/L) Date Value 11/24/2019 12.88 (H) RBC x10^6 (/uL) Date Value 09/27/2014 2.74 (L) RBC (10*6/L) Date Value 11/24/2019 3.58 (L) PLT x10^3 (/uL) Date Value 09/27/2014 127 (L) PLT (10*3/L) Date Value 11/24/2019 211 THB ART (G/DL) Date Value 09/24/2014 9.6 (L) HGB Date Value 11/24/2019 11.4 g/dL (L) 09/27/2014 8.0 G/DL (L) HCT (%) Date Value 11/24/2019 34.0 (L) 09/27/2014 24.1 (L) BMP NA Date Value 11/24/2019 133 mmol/L (L) 07/23/2014 139 MMOL/L K Date Value 11/24/2019 4.4 mmol/L 07/23/2014 4.7 MMOL/L CALCIUM Date Value 11/24/2019 7.9 mg/dL (L) 07/23/2014 9.8 MG/DL 07/23/2014 9.8 MG/DL CL Date Value 11/24/2019 104 mmol/L 07/23/2014 105 MMOL/L BUN Date Value 11/24/2019 15 mg/dL 07/23/2014 15 MG/DL CREATININE Date Value 11/24/2019 0.63 mg/dL 07/23/2014 0.80 MG/DL GLUCOSE Date Value 11/24/2019 178 mg/dL (H) 07/23/2014 93 MG/DL CO2 TOTAL Date Value 11/24/2019 24 mmol/L 07/23/2014 24 MMOL/L Imaging: Xr Femur 2 Vw Right Result Date: 04/06/2020 Perihardware fracture of the subtrochanteric right femur with hardware loosening with underlying changes of revision knee arthroplasty. Preliminary Report Dictated by Resident: Raghavendra Heard MD., have reviewed this study and agree with the above report. Xr Knee <3 Vw Right Result Date: 04/06/2020 Perihardware fracture of the subtrochanteric right femur with hardware loosening with underlying changes of revision knee arthroplasty. Preliminary Report Dictated by Resident: Ali Morshid I, Raghavendra M Benny, MD., have reviewed this study and agree with the above report. Assessment: Layne Carvalho is a 69 year old female with a R periprosthetic subtrochanteric fracture in the setting of revision knee arthroplasty and Lateral proximal femur plate. Plan: - Admit to Ortho - plan for HWR and ORIF R femur tomorrow - WB status: NWB RLE - Lewis traction for comfort. - NPO pm - Independently reviewed current and previous imaging for comparison, if applicable, as well as relevant lab results. I discussed my findings and educated patient on the condition present. All questions answered to patient's satisfaction. Patient states they understand and are in agreement with the tr eatment. Aly Simons DO PGY-2 Resident Orthopedic Surgery & Rehabilitation Associated attestation - Maricruz Sullivan II, MD - 04/09/2020 11:00 PM CDTI performed a history and physical examination of the patient and discussed the patient's managementwith the resident. I reviewed the resident's note and agree with the documented findings and plan of care. Maricruz Sullivan II, M.D. [facility] Medical Practice Manager Orthopaedic Surgery Pager: 04/09/2020 11:00 PM documented in this encounter Procedure Notes Ralph Salinas RN - 04/10/2020 12:35 PM CDTVascular Access Services A bedside timeout was conducted before procedure with Paulie Cervantes RN. An ultrasound guided, 4 Fr., 10 cm. MIDLINE was then placed in the right basilic vein, in one attempt(s). Local anesthetic was not used. Labs were not obtained. REF#: [id number] Lot #: [id number] Exp: 05/11/21 documented in this encounter Consult Notes Gifty Brownlee PT - 04/15/2020 11:08 AM CDTAssociated Order(s): CONSULT ADULT PHYSICAL THERAPYDuplicate consult. PT will continue to follow and attempt progression to ambulation. egnaud, Sulma Katy OT - 04/09/2020 1:22 PM CDTAssociated Order(s): CONSULT ADULT OCCUPATIONAL THERAPY I was present and participated throughout the session and agree with the documentation as written bythe student therapist on the encounter dated 04/09/2020. Vadim Miner OTR, MOT OT GENERAL EVALUATION Consult received via [facility], EMR reviewed and evaluation completed 04/09/20. Patient referred to occupational therapy for evaluation and treatment s/p R femur HWR and ORIF. Patient agreeable to participate in occupational therapy. Discharge Recommendations: Therapy Needs and Potential:- Patient would benefit from continued skilled occupational therapy services to address: Decline in basic activities of daily living, Decline in instrumental activities of daily living, Decreased strength, Decreased range of motion and Decreased endurance - Patient demonstrates good potential to improve and meet therapy goals with further skilled occupational therapy services. - Patient appears motivated to improve their B/IADLs and return to their previous level of function. - Patient demonstrates ability to tolerate at least 30-60 minutes of active participation in occupational therapy. - Patient exhibits limited activity tolerance. - Patient able to follow commands: 1-step Yes, Multi-step Yes, Inconsistencies No Challenges to Home Transition:- Requires physical assistance for BADLS - Requires physical assistance for IADLS - Limited caregiver availability - Increased risk of falls Equipment Recommendations:Shower chair PLAN OF CARE: At least 2-3x/week Precautions: Weight bearing status: NWB R LE, WBAT L LE General: PPE Utilized: Gloves and Surgical mask, Fall and JAYNE drain x2 Bracing: N/A Current Occupational Performance and/or Treatment: Bed-level evaluation completed secondary to patient's pain level. Per patient report, patient was independent with ADL's prior to hospital admission, however utilized rollator with functional mobility. Functional Mobility: NT secondary to bed-level evaluation Patient/caregiver educated on: Deep breathing and Role of OT Patient left semireclining in bed with call ochoa in reach. Heels floating and R LE elevated. Please,see full evaluation below for more detail. OT EVALUATION: 70 year old female Admit date: 04/06/2020 Date of onset: 04/06/2020 Admit Diagnosis: FRACTURE OF RIGHT FEMUR OT Diagnosis: Impaired BADL independence, Impaired IADL independence, Decreased endurance, Impaired self-care mobility and Pain PMH: Past Medical History: Diagnosis Date Asthma COPD (chronic obstructive pulmonary disease) Esophageal reflux Fibromyalgia Hyperlipidemia Shingles Sleep apnea PSH: Past Surgical History: Procedure Laterality Date ANTIBIOTIC SPACER PLACEMENT 09/26/2012 Surgeon: Patrick Roman MD; [facility] ANTIBIOTIC SPACER REMOVAL 12/14/2012 Surgeon: Patrick Roman MD; Location: [facility] FEMUR INTRAMEDULLARY NAILING Left 11/23/2019 Surgeon: J Carlos Remy MD; [facility] FEMUR ORIF Early 1970s FEMUR ORIF Right 04/16/2014 Surgeon: Butch Kohler MD; Location: [facility] FEMUR ORIF Left 11/23/2019 Surgeon: J Carlos Remy MD; [facility] HIP ORIF Right 04/08/2020 Surgeon: Maricruz Sullivan II, MD; [facility] KNEE RESECTION ARTHROPLASTY 09/26/2012 Surgeon: Patrick Roman MD; Location: [facility] LUMBAR EPIDURAL STEROID INJECTION Left 01/20/2016 Surgeon: Casper Arias MD; [facility] OPEN KNEE DEBRIDEMENT 01/07/2011 Surgeon:PATRICK ROMAN; [facility] REMOVAL HARDWARE LOWER EXTREMITY (SHX) Right 04/08/2020 Surgeon: Maricruz Sullivan II, MD; [facility] SACROILIAC JOINT INJECTION 09/21/2016 SACROILIAC JOINT INJECTION Left 09/21/2016 Surgeon: Casper Arias MD; [facility] TIBIA ORIF Right 04/16/2014 Surgeon: Butch Kohler MD; [facility]: [facility] TOTAL KNEE ARTHROPLASTY 1998 Bilateral TOTAL KNEE ARTHROPLASTY REVISION 12/18/2010 Surgeon:PATRICK ROMAN; [facility] TOTAL KNEE ARTHROPLASTY REVISION 12/14/2012 Surgeon: Patrick Roman MD; [facility] TOTAL KNEE ARTHROPLASTY REVISION Right 09/24/2014 Surgeon: Butch Kohler MD; [facility]: [facility] TRANSFORAMINAL EPIDURAL INJECTION (SHX) 09/21/2016 TRANSFORAMINAL EPIDURAL INJECTION (SHX) Left 09/21/2016 Surgeon: Casper Arias MD; Location: [facility] TRANSFORAMINAL EPIDURAL STEROID INJECTION 01/20/2016 PAIN: Before assessment: 10/19 After assessment: 02/18 Location: right leg Pain Management: Pt reports pain meds given earlier OCCUPATIONAL ROLES/HOME ENVIRONMENT: Home environment: Single story home, ramps to enter. Bathroom access: Yes Bathroom setup: Shower Occupation(s): Retired Function prior to admission: Household ambulation, Community ambulation, Independent with BADLs and Independent with IADLs Equipment prior to admission: Rollator, Bedside commode, Rolling Walker, Sock aide PERFORMANCE SKILLS/FACTORS: UE Muscle Tone: bilateral WNL UE ROM: bilateral AROM WFL UE Strength: MALINDA UE WFL Hand dominance: right Dexterity/Coordination: bilateral Fine motor skills Intact and bilateral Gross motor skills Intact Endurance - Sitting: NT Standing: NT Sitting Balance - Static: NT Dynamic: NT Standing: Balance - Static NT Dynamic: NT Dizziness: No Skin Integrity: JAYNE drain x2 Sensation: bilateral Intact to light touch Oral Motor: WFL Communication: Able to verbalize needs Yes Other: N/A Vision: WFL Yes Other: glasses or contacts Hearing: good; no issues reported COGNITION: Orientation: person, place, date/time and situation Follows Commands: 1-step Yes Multi-step Yes Inconsistencies No Safety Awareness/Judgment: Good PROBLEM LIST: Decreased independence with ADL and Decreased strength/endurance for functional activity REHAB POTENTIAL/PROGNOSIS: fair PATIENT/FAMILY GOALS: To go home TREATMENT/INTERVENTION PLAN: Functional motor treatment, Patient/Caregivier Education, Equipment recommendations, Daily living activities, Therapeutic exercises and Neuromuscular Re-Education GOAL(S): By discharge, patient will increase independence in daily living skills as follows: 1 Patient will perform 3 in 1 BSC transfer with CGA with RW. 2 Patient will don/doff socks with CGA using None. 3 Patient will complete grooming tasks with CGA while sitting EOB 4 Patient will increase endurance for functional activity as evidenced by ability to sustain 20 minutes of active participation. 5 Patient/caregiver will verbalize/demonstrate understanding/proficiency in the following home programs: Adaptive equipment , Compensatory techniques/adaptive strategies, Fall prevention and WB restrictions PATIENT-FAMILY TEACHING Patient provided with preferred teaching of verbal information on Deep breathing and Role of OT. Shows readiness to learn. Verbal instruction teaching provided. Individual verbalizes understanding of teaching provided. NEENA Lawler Total Timed Treatment Codes: 8 Min Total Treatment Time: 15 Min Patient Complexity Level High - An occupational therapy evaluation of high complexity was completed using the above tests and measures. The following information was obtained: An occupational profile and medical and therapy history, including review of medical and/or therapy records and extensive stephanie tional review of physical, cognitive, or psychosocial history related to current functional performance, Various standardized and non-standardized assessments were used to identify at least 5 or more performance deficits related to physical, cognitive, or psychosocial skills that result in activity limitations and/or participation restrictions and Clinical decision-making is of high analytic complexity, which includes an analysis of the patient profile, analysis of data from comprehensive assessment(s), and consideration of multiple treatment options. Patient present with comorbidities that affect occupational performance. Significant modification of tasks or assistance (e.g., physical or verbal) with assessment(s) is necessary to enable patient to complete evaluation component. Dillon Nava PT - 04/09/2020 11:53 AM CDTAssociated Order(s): CONSULT ADULT PHYSICAL THERAPY Patient agreeable to working with physical therapy. Patient met Semi reclined in bed. PHYSICAL THERAPY EVALUATION Consult received, chart reviewed and evaluation complete this date. Patient is referred to PT for evaluation and treatment. Patient is a 70 year old female who presents to hospital for FRACTURE OF RIGHT FEMUR. Patient is seen Open reduction and internal fixation, right periprosthetic subtrochanteric femur fracture, CPT code 82894. 2. Removal of deep implant, right femur on 04/08/20 . Discharge Recommendations: Therapy Needs and Potential: Patient would benefit from continued physical therapy services to address: decline in bed mobility decline in transfers decline in gait and/or balance decreased strength decreased endurance Patient demonstrates good potential to improve and meet therapy goals with further physical therapy services. Patient appears motivated to improve their functional mobility and return to their previous levelof function. Challenges to Home Transition: increased risk of falls decreased caregiver availability Equipment recommendations: Anticipates wheel chair with elevating leg rest and removable arm rest at this time. Will update as patient progress with therapy Current Functional Status and/or Treatment:Functional mobility training Bed Mobility: Supine-sit: Patient provided with max assist x 2 with head of the bed elevated. sitting at the edge of bed initially max assist with verbal cues and few min patient able to tolerate with CGA wtih verbal cues. Patient c/o dizziness while sitting at the edge of bed. Patient is requesting to return to supine position. Sit to supine: patient provided with max assist x2 with verbal cues. Scooting in supine: patient provided with max assist x2 with verbal cues and in trendelenburg position . Patient with increase fear of movement and breaking the leg patient educated on importance of movement and importance of therapy to achieve PLOF Transfers: NT secondary to patient not able to tolerate at this time , Ambulation: NT secondary to patient not able to tolerate at this time . Therapeutic exercise: instructed patient in the following: ankle pumps, heel slides, hip abduction/adduction After session, patient Semi reclined in bed. Call button provided. RN notified of patient status PLAN OF CARE: At least 4 times per week, once or twice a day (while in hospital) per patient's tolerance and medical needs. See below for complete details. Admit Date: 04/06/2020 Hospital Diagnosis:FRACTURE OF RIGHT FEMUR PT Diagnosis: Weakness and Pain Weight Bearing Precaution: NWB RT LE General Precautions: PPE used:Gloves and Surgical mask, General, Fall,Hemovac: 2 Bracing/Cast present or required:N/A PMH: Past Medical History: Diagnosis Date Asthma COPD (chronic obstructive pulmonary disease) Esophageal reflux Fibromyalgia Hyperlipidemia Shingles Sleep apnea PSH: Past Surgical History: Procedure Laterality Date ANTIBIOTIC SPACER PLACEMENT 09/26/2012 Surgeon: Patrick Roman MD; [facility] ANTIBIOTIC SPACER REMOVAL 12/14/2012 Surgeon: Patrick Roman MD; [facility]: [facility] FEMUR INTRAMEDULLARY NAILING Left 11/23/2019 Surgeon: JC arlos Remy MD; [facility] FEMUR ORIF Early 1970s FEMUR ORIF Right 04/16/2014 Surgeon: Butch Kohler MD; [facility]: [facility] FEMUR ORIF Left 11/23/2019 Surgeon: J Carlos Remy MD; [facility] HIP ORIF Right 04/08/2020 Surgeon: Maricruz Sullivan II, MD; [facility]: [facility] KNEE RESECTION ARTHROPLASTY 09/26/2012 Surgeon: Patrick Roman MD; [facility]: [facility] LUMBAR EPIDURAL STEROID INJECTION Left 01/20/2016 Surgeon: Casper Arias MD; [facility] OPEN KNEE DEBRIDEMENT 01/07/2011 Surgeon:PATRICK ROMAN; [facility] REMOVAL HARDWARE LOWER EXTREMITY (SHX) Right 04/08/2020 Surgeon: Maricruz Sullivan II, MD; [facility] SACROILIAC JOINT INJECTION 09/21/2016 SACROILIAC JOINT INJECTION Left 09/21/2016 Surgeon: Casper Arias MD; [facility] TIBIA ORIF Right 04/16/2014 Surgeon: Butch Kohler MD; [facility]: [facility] TOTAL KNEE ARTHROPLASTY 1998 Bilateral TOTAL KNEE ARTHROPLASTY REVISION 12/18/2010 Surgeon:PATRICK ROMAN; [facility] TOTAL KNEE ARTHROPLASTY REVISION 12/14/2012 Surgeon: Patrick Roman MD; Location: [facility] TOTAL KNEE ARTHROPLASTY REVISION Right 09/24/2014 Surgeon: Butch Kohler MD; Location: [facility] TRANSFORAMINAL EPIDURAL INJECTION (SHX) 09/21/2016 TRANSFORAMINAL EPIDURAL INJECTION (SHX) Left 09/21/2016 Surgeon: Casper Arias MD; Location: [facility] TRANSFORAMINAL EPIDURAL STEROID INJECTION 01/20/2016 Prior Living Situation: lives alone, ramp access DME: Rolling Walker, Four wheeled walker with seat Prior level of Mobility: community ambulation Subjective: patient states that she was independent prior to hospitalization Patient/Family Goals: to get better Patient/Family verbalizes understanding of condition: Yes PAIN: -Pain Description: constant -Pain Location: right leg -Pain rating before treatment: 6, After treatment: 9 -Pain Management: Pain Meds given COMMUNICATION Primary Language: Macanese Able to Verbalize needs: Yes Vision:glasses Hearing:good; no issues reported ORIENTATION/COGNITION: Oriented to: person, place, date/time and situation Awake: Yes Alert: Yes Dizzy: Yes While sitting at the edge of bed Follows Commands: Yes 1-Step Yes Multi-Step Yes Inconsistent: No NEUROLOGICAL Light Touch: within functional limits bilateral LE Tone: normal BALANCE: Sitting: Static: Good Dynamic: NT Standing: Static: NT Dynamic: NT RANGE OF MOTION: within functional limits bilateral LE, STRENGTH: left LE : 3+/5, RT LE: NT secondary to s/p surgery ENDURANCE: Fair, Room air SKIN INTEGRITY: defer to nursing notes , PROBLEM LIST: Decline in bed mobility, Decline in gait, Decline in transfers, Decreased strength, Decreased endurance, Decreased balance, Weight bearing restrictions and Pain ASSESSMENT: Patient is a 70 year old female seen secondary to the above listed diagnosis. Patient would benefit from continued PT to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 Small Right Femoral Right: Knee 08/12/2017 [id number] / Implanted: Qty: 1 on 12/14/2012 by Patrick Lomax MD at [facility] Component / [id number] Segmental Component Femoral Sleeve Right: Leg Depuy Synthes 02/25/2024 [id number] / Implanted: Qty: 1 on 09/24/2014 by Butch Maldonado MD at [facility] / [id number] Description:REF: LOT: [id number] Segmental Component 45 mm EXPIRATION: 2024-02 Femoral Stem Bowed Femoral Stem Right: Leg Depuy Synthes [id number] / Implanted: Qty: 1 on 09/24/2014 by Butch Maldonado MD at [facility] / [id number] Description:REF: LOT: [id number] EXPIRATION: 2023-06 11mm x 200mm cemented Femoral Stem Bowed Ncb Periprosthetic Proximal Femur Plate, Right, 9 Holes, L. 245 Mm Femur Right: Leg Baron 12/25/2020 [id number] / Implanted: Qty: 1 on 09/24/2014 by Butch Maldonado MD at [facility] / [id number] Description:LOT: [id number] NORRIS: [id number] REF: [phone] NCB Periprosthetic Proximal Femur plate, right, 9 holes, L. 245mm Expiration: 2020-12 Lps Tibial Insert Hinge Entiat Xx Small 16mm Hinge Right: Knee 07/12/2014 [id number] / Implanted: Qty: 1 on 12/14/2012 by Patrick Lomax MD at [facility] / [id number] Tka Tibial Tray, Depuy Mbt Rev Tib Tray Sz 3 15mm #[id number] - [id number] KNEE Right: Knee Depuy Synthes 06/11/2022 [id number] / Implanted: Qty: 1 on 12/14/2012 by Patrick Lomax MD at [facility] / [id number] Plate, Synthes 4.5mm Broad Lcp 12h/224mm #226.621 - [id number] ATE Right: Leg Synthes 226.621 / Implanted: Qty: 1 on 04/16/2014 by Guicho Hammonds MD at [facility] / Screw, Synthes 4.5mm Cortex Slf-T 14mm #214.814 - [id number] SCRE W Right: Leg Synthes 214.814 / Implanted: Qty: 1 on 04/16/2014 by Guicho Hammonds MD at [facility] / Screw, Synthes 4.5mm Cortex Slf-T 26mm #214.826 - [id number] SCRE W Right: Leg Synthes 214.826 / Implanted: Qty: 1 on 04/16/2014 by Guicho Hammonds MD at [facility] / Screw, Synthes 4.5mm Cortex Slf-T 28mm #214.828 - [id number] SCRE W Right: Leg Synthes 214.828 / Implanted: Qty: 1 on 04/16/2014 by Guicho Hammonds MD at [facility] / Screw, Synthes 4.5mm Cortex Slf-T 30mm #214.830 - [id number] SCRE W Right: Leg Synthes 214.830 / Implanted: Qty: 1 on 04/16/2014 by Guicho Hammonds MD at [facility] / Screw, Synthes 5.0mm Lckng Slf-T W/T25 Star Rec 26mm #212.20 7 - [id number] SCREW Right: Leg Synthes 212.207 / Implanted: Qty: 2 on 04/16/2014 by Guicho Hammonds MD at [facility] / Screw, Synthes 5.0mm Lckng Slf-T W/T25 Star Rec 28mm #212.20 8 - [id number] SCREW Right: Leg Synthes 212.208 / Implanted: Qty: 1 on 04/16/2014 at [facility] / Screw, Synthes 5.0mm Lckng Slf-T W/T25 Star Rec 30mm #212.20 9 - [id number] SCREW Right: Leg Synthes 212.209 / Implanted: Qty: 1 on 04/16/2014 by Guicho Hammonds MD at [facility] / Screw, Synthes 5.0mm Periprosthetic Lckn g Slf-T Star 8mm #02.221.508 - [id number] SCREW Right: Leg Synthes .508 / Implanted: Qty: 1 on 04/16/2014 at [facility] / Screw, Synthes 5.0mm Periprosthetic Lckn g Slf-T Star 10mm #02.221.510 - [id number] SCREW Right: Leg Synthes 02.221.510 / Implanted: Qty: 1 on 04/16/2014 by Guicho Hammonds MD at [facility] / Screw, Synthes 5.0mm Periprosthetic Lckn g Slf-T Star 12mm #02.221.512 - [id number] SCREW Right: Leg Synthes .221.512 / Implanted: Qty: 1 on 04/16/2014 by Guicho Hammonds MD at [facility] / Bicortical Screw SCREW Right: Hip Baron 02 .21913.030 / Implanted: Qty: 1 on 04/16/2014 by Aly Garcia MD at [facility] / Bicortical Screw SCREW Right: Hip Baron 02 .84382.040 / Implanted: Qty: 1 on 04/16/2014 by Aly Garcia MD at [facility] / Bicortical Screw SCREW Right: Hip Baron 02 .57371.032 / Implanted: Qty: 2 on 04/16/2014 by Aly Garcia MD at [facility] / Bicortical Screw SCREW Right: Hip Baron 02 .50873.034 / Implanted: Qty: 1 on 04/16/2014 by Aly Garcia MD at [facility] / Bicortical Screw SCREW Right: Hip Baron 02 .52670.034 / Implanted: Qty: 1 on 04/16/2014 at [facility] / Bicortical Screw SCREW Right: Hip Baron 02 .62772.038 / Implanted: Qty: 1 on 04/16/2014 by Aly Garcia MD at [facility] / Unicortical Screw SCREW Right: Hip Baron 0 2.27100.014 / Implanted: Qty: 1 on 04/16/2014 by Aly Garcia MD at [facility] / Unicortical Screw SCREW Right: Hip Baron 0 2.70332.016 / Implanted: Qty: 1 on 04/16/2014 by Aly Garcia MD at [facility] / 5.0 Cortcal Screw 02.10968.014 SCREW Right: Leg Baron 02.70961.014 / Implanted: Qty: 2 on 09/24/2014 by Butch Maldonado MD at [facility] / 02.52638.0 14 Description:5.0 Cortical SCREWS: 02.0315 0.014 5.0 Cortical Screw 02.79100.030 SCREW Right: Leg Baron 02.62911.030 / Implanted: Qty: 2 on 09/24/2014 by Butch Maldonado MD at [facility] / 02.26360.0 30 Description:5.0 Cortical SCREWS: 02.0315 0.030 5.0 Cortical Screw 02.13008.040 SCREW Right: Leg Baron 02.30525.040 / Implanted: Qty: 1 on 09/24/2014 by Butch Maldonado MD at [facility] / 02.72519.0 40 Description:5.0 Cortical SCREW 02.18489. 040 5.0 Cortical Screw 02.87442.016 SCREW Right: Leg Baron 02.48024.016 / Implanted: Qty: 3 on 09/24/2014 by Butch Maldonado MD at [facility] / 02.80468.0 16 Description:5.0 Cortical Screw 02.27204. 016 5.0 Cortical Screw 02.28769.018 SCREW Right: Leg Baron 02.03799.018 / Implanted: Qty: 1 on 09/24/2014 by Butch Maldonado MD at [facility] / 02.77966.0 18 Description:5.0 Cortical Screw 02.27803. 018 85mm Lag Screw And 80mm Compression Screw SCREW Left: Leg [employer] 07/19/2028 [id number] / Implanted: Qty: 1 on 11/23/2019 by J Carlos Remy MD at [facility] NA / [id number] Screw, Mace [employer] Nephew Trigen Low Profile 5.0mm X 42.5mm #716 02324 - Sna SCREW Left: Leg [employer] 06/03/2029 [id number] / Implanted: Qty: 1 on 11/23/2019 by J Carlos Remy MD at [facility] NA / [id number] Screw, Mace [employer] Nephew Trigen Low Profile 5.0mm X 52.5mm #716 86379 - Sna SCREW Left: Leg [employer] 01/31/2029 06589975 / Implanted: Qty: 1 on 11/23/2019 by J Carlos Remy MD at [facility] NA / [id number] Screw, Mace [employer] Nephew Trigen Low Profile 5.0mm X 47.5mm #716 30063 - Sna SCREW Left: Leg [employer] 10/31/2027 [id number] / Implanted: Qty: 1 on 11/23/2019 by J Carlos Remy MD at [facility] NA / [id number] Screw, Mace [employer] Nephew Clara-Loc 4.5mm T25 Locking 56mm Self-Tapping #35311469 - S SCREW [employer]hew [id number] / Implanted: Qty: 1 on 11/23/2019 by J Carlos Remy MD at [facility] / Screw, M[employer] Nephew Clara-Loc 4.5mm T25 Blunt Tip Loc kim 10mm #83030688 - S SCREW [employer]hew [id number] / Implanted: Qty: 4 on 11/23/2019 by J Carlos Remy MD at [facility] / Screw, Mace [employer] Nephew Clara-Loc 4.5mm T25 Blunt Tip Loc kim 12mm #25161025 - S SCREW [employer]hew [id number] / Implanted: Qty: 1 on 11/23/2019 by J Carlos Remy MD at [facility] / Screw, M[employer] Nephew Clara-Loc 4.5mm T25 Locking 14mm Self-Tapping #88950539 - S SCREW [employer]hew [id number] / Implanted: Qty: 2 on 11/23/2019 by J Carlos Remy MD at [facility] / Screw, Mace [employer] Nephew Clara-Loc 4.5mm T25 Locking 18mm Self-Tapping #33378123 - S SCREW [employer]hew [id number] / Implanted: Qty: 1 on 11/23/2019 by J Carlos Remy MD at [facility] / Screw, Mace [employer] Nephew Clara-Loc 4.5mm T25 Locking 24mm Self-Tapping #62970533 - S SCREW [employer]hew 09731521 / Implanted: Qty: 1 on 11/23/2019 by J Carlos Remy MD at [facility] / Screw, Synthes 3.5mm Cortex Slf-T 34mm #204.834 - S0 SCREW Right : Leg Synthes 04/08/2020 204.834 / Implanted: Qty: 1 on 04/08/2020 by Maricruz Boo II, MD at [facility] 0 / 0 Screw, Synthes 3.5mm Lckng Slf-T W/Star Rec 16mm #212.104 - S0 S CREW Right: Leg Synthes 04/08/2020 212.104 / Implanted: Qty: 1 on 04/08/2020 by Maricruz Boo II, MD at [facility] 0 / 0 Screw, Synthes 3.5mm Lckng Slf-T W/Star Rec 24mm #212.108 - S0 S CREW Right: Leg Synthes 04/08/2020 212.108 / Implanted: Qty: 1 on 04/08/2020 by Maricruz Boo II, MD at [facility] 0 / 0 Screw, Synthes 3.5mm Lckng Slf-T W/Star Rec 26mm #212.109 - S0 S CREW Right: Leg Synthes 04/08/2020 212.109 / Implanted: Qty: 1 on 04/08/2020 by Maricruz Boo II, MD at [facility] 0 / 0 Screw, Synthes 3.5mm Lckng Slf-T W/Star Rec 30mm #212.111 - S0 S CREW Right: Leg Synthes 04/08/2020 212.111 / Implanted: Qty: 1 on 04/08/2020 by Maricruz Boo II, MD at [facility] 0 / 0 Screw, Synthes 3.5mm Lckng Slf-T W/Star Rec 32mm #212.112 - S0 S CREW Right: Leg Synthes 04/08/2020 212.112 / Implanted: Qty: 4 on 04/08/2020 by Maricruz Boo II, MD at [facility] 0 / 0 Screw, Synthes 3.5mm Lckng Slf-T W/Star Rec 34mm #212.113 - S0 S CREW Right: Leg Synthes 04/08/2020 212.113 / Implanted: Qty: 1 on 04/08/2020 by Maricruz Boo II, MD at [facility] 0 / 0 Screw, Synthes 3.5mm Lckng Slf-T W/Star Rec 28mm #212.110 - S0 S CREW Right: Leg Synthes 04/08/2020 212.110 / Implanted: Qty: 4 on 04/08/2020 by Maricruz Boo II, MD at [facility] 0 / 0 Screw, Synthes 3.5mm Cortex Slf-T 26mm #204.826 - Sn/A SCREW Right: Leg Synthes 04/08/2020 204.826 / Implanted: Qty: 2 on 04/08/2020 by Maricruz Boo II, MD at [facility] N/A / N/A Screw, Synthes 3.5mm Lckng Slf-T W/Star Rec 10mm #212.101 - S0 S CREW Right: Leg NXE 04/08/2020 212.101 / Implanted: Qty: 1 on 04/08/2020 by Maricruz Boo II, MD at [facility] 0 / 0 Screw, Synthes 3.5mm Cortex Slf-T 10mm #204.810 - S0 SCREW Right : Leg NXE 04/08/2020 204.810 / Implanted: Qty: 1 on 04/08/2020 by Maricruz Boo II, MD at [facility] 0 / 0 Screw, Synthes 5.0mm Marva Conical 50mm #02.205.250 - S0 SCREW Right: Leg NXE 04/08/2020 02.205.250 / Implanted: Qty: 1 on 04/08/2020 by Maricruz Boo II, MD at [facility] 0 / 0 Screw, Synthes 4.5mm Cortex Slf-T 66mm #214.866 - S0 SCREW Right : Leg NXE 04/08/2020 214.866 / Implanted: Qty: 1 on 04/08/2020 by Maricruz Boo II, MD at [facility] 0 / 0 Screw, Synthes 4.5mm Cortex Slf-T 70mm #214.870 - S0 SCREW Right : Leg NXE 04/08/2020 214.870 / Implanted: Qty: 1 on 04/08/2020 by Maricruz Boo II, MD at [facility] 0 / 0 Screw, Synthes 5.0mm Marva Conical 55mm #02.205.255 - S0 SCREW Right: Leg NXE 04/08/2020 02.205.255 / Implanted: Qty: 2 on 04/08/2020 by Maricruz Boo II, MD at [facility] 0 / 0 Screw, Synthes 5.0mm Marva Lckng 55mm #02.205.055 - S0 SCREW Righ t: Leg Synthes 04/08/2020 02.205.055 / Implanted: Qty: 2 on 04/08/2020 by Maricruz Boo II, MD at [facility] 0 / 0 Screw, Synthes 5.0mm Lckng Slf-T W/T25 Star Rec 16mm #212.20 2 - S0 SCREW Right: Leg Synthes 04/08/2020 212.202 / Implanted: Qty: 2 on 04/08/2020 by Maricruz Boo II, MD at [facility] 0 / 0 Screw, Synthes 7.3mm Marva Conical 55mm #02.207.255 - S0 SCREW Right: Leg Synthes 04/08/2020 02.207.255 / Implanted: Qty: 1 on 04/08/2020 by Maricruz Boo II, MD at [facility] 0 / 0 Screw, Synthes 7.3mm Marva Conical 70mm #02.207.270 - S0 SCREW Right: Leg Synthes 04/08/2020 02.207.270 / Implanted: Qty: 1 on 04/08/2020 by Maricruz Boo II, MD at [facility] 0 / 0 Screw, Synthes 5.0mm Lckng Slf-T W/T25 Star Rec 40mm #212.21 4 - S0 SCREW Right: Leg Synthes 04/08/2020 212.214 / Implanted: Qty: 1 on 04/08/2020 by Maricruz Boo II, MD at [facility] 0 / 0 Screw, Synthes 7.3mm Marva Lckng 55mm #02.207.055 - S0 SCREW Righ t: Leg Synthes 04/08/2020 02.207.055 / Implanted: Qty: 2 on 04/08/2020 by Maricruz Boo II, MD at [facility] 0 / 0 Screw, Synthes 7.3mm Marva Lckng 70mm #02.207.070 - S0 SCREW Righ t: Leg Synthes 04/08/2020 02.207.070 / Implanted: Qty: 2 on 04/08/2020 by Maricruz Boo II, MD at [facility] 0 / 0 Screw, Synthes 3.5mm Lckng Slf-T W/Star Rec 22mm #212.107 - S0 S CREW Right: Leg Synthes 212.107 / Implanted: Qty: 1 on 04/08/2020 at [facility] 0 / 0 Screw, Synthes 3.5mm Lckng Slf-T W/Star Rec 36mm #212.115 - S0 S CREW Right: Leg Synthes 212.115 / Implanted: Qty: 2 on 04/08/2020 at [facility] 0 / 0 Stem, Depuy Sig Tib Niko Stm 13x60 #[id number] - [id number] St em Right: Depuy Synthes 03/12/2022 163526 / Implanted: Qty: 1 on 12/14/2012 by Patrick Lomax MD at [facility] Knee / [id number] Lsp Stem Straight 12mm X 125mm Cemented Stem Right: 06/11/2022 [id number] / Implanted: Qty: 1 on 12/14/2012 by Patrick Lomax MD at [facility] Knee / [id number] Drill Bit, Mace [employer] Nephew 3.5mm W/Quick Connect #[id number] - S Lin pply Item Mace [employer] Nephew [id number] / Implanted: Qty: 1 on 11/23/2019 by J Carlos Remy MD at [facility] / Wire, Baron Jewels 16ga Long, 30cm #1292-61 - S002 WIRE Right: 1292-61 / Implanted: Qty: 3 on 09/26/2012 by Patrick Lomax MD at [facility] Knee 002 / 002 Cable Ready Cable Geothermal Operations Engineer System Right: Hip Baron 10/10/2023 2231-09-08 / Implanted: Qty: 1 on 04/16/2014 by Aly Garcia MD at [facility] / [id number] Locking Cap Right: Hip Baron .0315 0.300 / Implanted: Qty: 8 on 04/16/2014 by Aly Garcia MD at [facility] / Curved Shaft Plate Right: Hip Baron 02.24562.010 / Implanted: Qty: 1 on 04/16/2014 by Aly Garcia MD at [facility] / Tibial Insert Entiat X Small 16mm Depuy #1986--016 - [id number] Right: Leg Depuy Synthes 10/25/2017 / Implanted: Qty: 1 on 09/24/2014 by Butch Maldonado MD at [facility] / [id number] Femoral Comp Lps Distal Radius X Small Right Depuy #1986-- - [id number] Right: Leg Depuy Synthes 06/26/2019 / Implanted: Qty: 1 on 09/24/2014 by Butch Maldonado MD at [facility] / [id number] Left Trochanteric Antegrade Nail 10mm X 38cm Left: Leg [facility] & Nephew 07/19/2027 [id number] / Implanted: Qty: 1 on 11/23/2019 by J Carlos Remy MD at [facility] NA / [id number] Plate Bone Locking 342mml Holex10 Mace [employer] Nephew [id number] / Implanted: Qty: 1 on 11/23/2019 by J Carlos Remy MD at [facility] / [employer] Implant, [id number] Right: Leg [employer] 09/14/2023 [id number] / Implanted: Qty: 1 on 04/08/2020 by [facility] / [id number] Speed[employer]itan Implant, [id number] Right: Leg [employer] 03/28/2023 [id number]-[id number] / Implanted: Qty: 1 on 04/08/2020 by Maricruz Boo II, MD at [facility] 0 / [id number] 4.5mm Lcp Proximal Femur Hook Plate, 10 Hole, 277mm Right: Leg Depuy Synthes 10/10/2027 242.124S / Implanted: Qty: 1 on 04/08/2020 by Maricruz Boo II, MD at [facility] 0 / [id number] Screw Bone Compresion Locking 5.0mm 14mml Depuy Ref#02.221. 514s - S0 Right: Leg Depuy Synthes 09/09/2027 02.221.514S / Implanted: Qty: 1 on 04/08/2020 by Maricruz Boo II, MD at [facility] 0 / [id number] Connecting Screw F/Lckng Attachment Right: Leg Depuy Synthes 11/08/2028 02.120.606S / Implanted: Qty: 1 on 04/08/2020 by Maricruz oBo II, MD at [facility] 0 / [id number] 3.5mm Locking Attachment Plate, 4.5mm Lcp Plate, 8 Hole Right: Leg Depuy Synthes 09/08/2028 02.120.602S / Implanted: Qty: 1 on 04/08/2020 by Maricruz Boo II, MD at [facility] 0 / [id number] 3.5mm Locking Attachment Plate, 4.5mm Lcp Plate, 4 Hole Right: Leg Depuy Synthes 12/09/2028 02.120.601S / Implanted: Qty: 1 on 04/08/2020 by Maricruz Boo II, MD at [facility] 0 / [id number] Screw 5.0mm Periprosthetic Lcking Slf-Tp ing Strdrv 18mm Depuy Ref#02.221.518s - S0 Right: Leg Depuy Synthes 10/09/2024 02.221.518S / Implanted: Qty: 1 on 04/08/2020 by Maricruz Boo II, MD at [facility] 0 / [id number] Screw 5.0mm Periprosthetic Lcking Slf-Tp ing Strdrv 18mm Depuy Ref#02.221.518s - S0 Right: Leg Depuy Synthes 10/09/2024 02.221.518S / Implanted: Qty: 1 on 04/08/2020 by Maricruz Boo II, MD at [facility] 0 / [id number] Screw 5.0mm Periprosthetic Lcking Slf-Tp ing Strdrv 18mm Depuy Ref#02.221.518s - S0 Right: Leg Depuy Synthes 10/09/2024 02.221.518S / Implanted: Qty: 1 on 04/08/2020 by Maricruz Boo II, MD at [facility] 0 / [id number] Plate, 3.5 Lcp Reconstruction 7h/98mm #245.071 - S0 Right: Leg Synthes 04/08/2020 245.071 / Implanted: Qty: 1 on 04/08/2020 by Maricruz Boo II, MD at [facility] 0 / 0 4.5mm X 90mm Cortex Screw Right: Leg Depuy Synthes 04/08/2020 214.890 / Implanted: Qty: 1 on 04/08/2020 by Maricruz Boo II, MD at [facility] 0 0 documented as of this encounter Procedures Procedure Name Priority Date/Time Associated Comments Diagnosis COVID-19 (ID NOW STAT 04/16/2020 2:13 Results for RAPID TESTING) PM CDT this procedur e are in the results section. CBC WITH DIFF Routine 04/15/2020 10:09 Results fo r AM CDT this procedure are in the results section. CBC WITHOUT DIFF EDGAR 04/12/2020 5:00 Results for PM CDT this procedure are in the results section. BASIC METABOLIC PANEL Routine 04/09/2020 5:51 Re sults for (NA, K, CL, CO2, PM CDT this proced ure GLUCOSE, BUN, are in the CREATININE, CA) results section. CBC WITH DIFF Routine 04/09/2020 5:50 Results fo r PM CDT this procedure are in the results section. FL TIME OR Routine 04/08/2020 3:00 Other fracture of Result s for (NON-REPORTABLE) PM CDT right femur, this proced ure initial encounter are in the for closed results fracture section. XR FEMUR 2 VW RIGHT Routine 04/08/2020 2:29 Other fracture of Results for PM CDT right femur, this procedure initial encounter are in the for closed results fracture section. REMOVAL HARDWARE Level 3 (within 04/08/2020 7:00 Other fracture of LOWER EXTREMITY 12 hours) AM CDT right femur, initial encounter for closed fracture HIP ORIF Level 3 (within 04/08/2020 7:00 Other fracture of 12 hours) AM CDT right femur, initial encounter for closed fracture EKG-12 LEAD Routine 2020 12:52 AM CDT HB ABO GROUPING Routine 04/06/2020 11:51 Results for PM CDT this procedure are in the results section. CBC WITHOUT DIFF STAT 04/06/2020 11:49 Results for PM CDT this procedure are in the results section. BASIC METABOLIC PANEL STAT 04/06/2020 11:49 Re sults for (NA, K, CL, CO2, PM CDT this proced ure GLUCOSE, BUN, are in the CREATININE, CA) results section. XR CHEST 1 VW STAT 04/06/2020 11:30 Closed fracture of Resu lts for PM CDT right femur with this proced ure routine healing, are in the unspecified results fracture section. morphology, unspecified portion of femur, subsequent encounter EKG-12 LEAD Routine 04/06/2020 11:[address] HIP RIGHT WO STAT 04/06/2020 10:02 Closed fracture of Re sults for CONTRAST PM CDT right femur with this proced ure routine healing, are in the unspecified results fracture section. morphology, unspecified portion of femur, subsequent encounter XR HIPS 2 VW RIGHT STAT 04/06/2020 9:56 Closed fracture of Results for PM CDT right femur with this proced ure routine healing, are in the unspecified results fracture section. morphology, unspecified portion of femur, subsequent encounter EMERGENCY SERVICES Routine 04/06/2020 12:01 AGREEMENTS AND AM CDT AUTHORIZATIONS EMERGENCY DEPARTMENT Routine 04/06/2020 12:01 DOCUMENTS AM CDT documented in this encounter Results COVID-19 (ID NOW RAPID TESTING) (04/16/2020 2:13 PM CDT) SARS-CoV-2 Rapid ID Not Detected Not Detected [facility] Specimen Swab - NASOPHARYNGEAL SWAB Narrative Performed At ID NOW COVID-19 Assay is an isothermal nucleic acid [facility] amplification test intended for the qualitative detect ion of nucleic acid from SARS-CoV-2 viral RNA in nasopharynge al (DEVELOPMENTAL SPECIALIST) specimens. It is used under Emergency Use Authori zation (EUA) by FDA. The limit of detection (LOD) of the assa y is 125 Genome Equivalents/mL. A positive result is indicative of the presence of SARS-CoV-2 RNA. Clinical correlation with patient hi story and other diagnostic information is necessary to deter mine patient infection status. A negative (Not Detected) result does not preclude SARS-CoV-2 infection. In patients with clinical sympto ms and other tests that are consistent with SARS-CoV-2 infect ion, negative results should be treated as presumptive nega tive and a new specimen should be tested with alternative P CR molecular test. Invalid: Please collect a new specimen for repeat leny ent testing if clinically indicated. Performing Organization Address City/State/Zipcode Phone Number [facility] CLIA: [id number] [place] [address] [place] [address] CBC WITH DIFF (04/15/2020 10:09 AM CDT) Pathologist Sig nature WBC 9.98 4.30 - 11.10 [facility] 10*3/L SERVICES RBC 2.50 (L) 3.93 - 5.25 [facility] 10*6/L SERVICES HGB 7.6 (L) 11.6 - 15.0 [facility] g/dL SERVICES HCT 23.6 (L) 35.7 - 45.2 % [facility] MCV 94.4 80.6 - 95.5 fL [facility] MCH 30.4 25.9 - 32.8 pg [facility] MCHC 32.2 31.6 - 35.1 [facility] g/dL SERVICES RDW-SD 51.0 (H) 39.0 - 49.9 fL [facility] RDW-CV 14.8 12.0 - 15.5 % [facility] PLT 364 (H) 166 - 358 [facility] 10*3/L SERVICES MPV 11.0 9.5 - 12.9 fL [facility] SERVICES NRBC/100 WBC 0.0 0.0 - 10.0 /100 [facility] WBCs SERVICES NRBC x10^3 <0.01 10*3/L [facility] GRAN MAT (NEUT) % 67.2 % [facility] IMM GRAN % 0.60 % [facility] LYMPH % 15.7 % [facility] MONO % 13.5 % [facility] EOS % 2.6 % [facility] BASO % 0.4 % [facility] GRAN MAT x10^3(ANC) 6.70 1.88 - 7.09 [facility] 10*3/uL SERVICES IMM GRAN x10^3 0.06 0.00 - 0.06 [facility] 10*3/uL SERVICES LYMPH x10^3 1.57 1.32 - 3.29 [facility] 10*3/uL SERVICES MONO x10^3 1.35 (H) 0.33 - 0.92 [facility] 10*3/uL SERVICES EOS x10^3 0.26 0.03 - 0.39 [facility] 10*3/uL SERVICES BASO x10^3 0.04 0.01 - 0.07 [facility] 10*3/uL SERVICES Specimen Blood - ARM, RIGHT Performing Organization Address [facility] Phone Number [facility] CLIA: [id number] [place] [address] [place] [address] CBC WITHOUT DIFF (04/12/2020 5:00 PM CDT) Pathologist Sig nature WBC 13.17 (H) 4.30 - 11.10 [facility] 10*3/L SERVICES RBC 2.48 (L) 3.93 - 5.25 [facility] 10*6/L SERVICES HGB 7.8 (L) 11.6 - 15.0 g/dL [facility] SERVICES HCT 23.3 (L) 35.7 - 45.2 % [facility] SERVICES MCH 31.5 25.9 - 32.8 pg [facility] MCV 94.0 80.6 - 95.5 fL [facility] SERVICES MCHC 33.5 31.6 - 35.1 g/dL [facility] SERVICES PLT 202 166 - 358 10*3/L [facility] MPV 12.5 9.5 - 12.9 fL [facility] SERVICES RDW-CV 14.8 12.0 - 15.5 % [facility] SERVICES RDW-SD 50.7 (H) 39.0 - 49.9 fL [facility] SERVICES NRBC x10^3 <0.01 10*3/L [facility] SERVICES NRBC/100 WBC 0.0 0.0 - 10.0 /100 [facility] WBCs SERVICES IPF % [facility] Specimen Blood - ARM, RIGHT Performing Organization Address City/[facility] Phone Number [facility] CLIA: [id number] [place], [place] [address] [address] [place] [address] BASIC METABOLIC PANEL (NA, K, CL, CO2, GLUCOSE, BUN, CREATININE, CA) (04/09/2020 5:51 PM CDT) Pathologist Sig nature NA 132 (L) 135 - 145 [facility] mmol/L SERVICES K 3.7 3.5 - 5.0 [facility] mmol/L SERVICES CL 103 98 - 108 mmol/L [facility] CO2 TOTAL 25 23 - 31 mmol/L [facility] AGAP 4 2 - 16 [facility] BUN 13 7 - 23 mg/dL [facility] SERVICES GLUCOSE 100 70 - 110 mg/dL [facility] SERVICES CREATININE 0.54 0.50 - 1.04 [facility] mg/dL SERVICES CALCIUM 7.8 (L) 8.6 - 10.6 [facility] mg/dL SERVICES eGFR Calculation 111.9 mL/min/1.73m2 [facility] (Non- SERVICES Cypriot) eGFR Calculation 135.7 mL/min/1.73m2 [facility] () SERVICES Specimen Blood - VENOUS Narrative Performed At Association of Glomerular Filtration Rate (GFR) and St aging [facility] of Kidney Disease* + + +------- ------ + | GFR (mL/min/1.73 m2) | With Kidney Damage | Wi thorout Kidney Damage + + +------- ------ + [...] in imaging tests) . Performing Organization Address City/State/Zipcode Phone Number [facility] CLIA: [id number] [place] [address] [place] [address] CBC WITH DIFF (04/09/2020 5:50 PM CDT) Pathologist [facility] nature WBC 15.44 (H) 4.30 - 11.10 [facility] 10*3/L SERVICES RBC 3.02 (L) 3.93 - 5.25 [facility] 10*6/L SERVICES HGB 9.3 (L) 11.6 - 15.0 [facility] g/dL SERVICES HCT 28.3 (L) 35.7 - 45.2 % [facility] MCV 93.7 80.6 - 95.5 fL [facility] MCH 30.8 25.9 - 32.8 pg [facility] MCHC 32.9 31.6 - 35.1 [facility] g/dL SERVICES RDW-SD 48.9 39.0 - 49.9 fL [facility] SERVICES RDW-CV 14.6 12.0 - 15.5 % [facility] PLT 171 166 - 358 [facility] 10*3/L SERVICES MPV 13.1 (H) 9.5 - 12.9 fL [facility] SERVICES NRBC/100 WBC 0.0 0.0 - 10.0 /100 [facility] WBCs SERVICES NRBC x10^3 <0.01 10*3/L [facility] GRAN MAT (NEUT) % 74.4 % [facility] IMM GRAN % 0.50 % [facility] LYMPH % 12.9 % [facility] MONO % 10.8 % [facility] EOS % 1.0 % [facility] BASO % 0.4 % [facility] GRAN MAT x10^3(ANC) 11.49 (H) 1.88 - 7.09 [facility] 10*3/uL SERVICES IMM GRAN x10^3 0.07 (H) 0.00 - 0.06 [facility] 10*3/uL SERVICES LYMPH x10^3 1.99 1.32 - 3.29 [facility] 10*3/uL SERVICES MONO x10^3 1.67 (H) 0.33 - 0.92 [facility] 10*3/uL SERVICES EOS x10^3 0.16 0.03 - 0.39 [facility] 10*3/uL SERVICES BASO x10^3 0.06 0.01 - 0.07 [facility] 10*3/uL SERVICES Specimen Blood - VENOUS Performing Organization Address City/State/Zipcode Phone Number [facility] CLIA: [id number] [place] [address] [place] [address] TIME OR (NON-REPORTABLE) (04/08/2020 3:00 PM CDT) Specimen Narrative Performed At These images do not require a Radiology diagnostic rep ort. PACS Performing Organization Address City/State/Zipcode Phone Number PACS XR FEMUR 2 VW RIGHT (04/08/2020 2:29 PM CDT) Specimen Impressions Performed At Postop changes of interval osteotomies involving the p roximal right PACS/VR/DOSE femur without hardware complication seen. RL: [id number] 4 :03 PM Narrative Performed At Patient name: LAYNE CARVALHO PACS/VR/DOSE : 1950 70 years EXAMINATION: XR FEMUR 2 VW RIGHT Ordering Physician: MARICRUZ SULLIVAN II CLINICAL HISTORY: surgery COMPARISON: 04/06/2020. TECHNIQUE: Frontal and lateral views of the right f emur were performed. FINDINGS: Changes of plate and igor fixation spanni ng an osteotomy through the proximal right femur. No hardware compli cation seen. Right hip maintains alignment with narrowing and osteophyte formation pres ent. Heterotopic bone formation across the osteotomy site of t he proximal third femoral diaphysis. Hinged arthroplasty noted of the right knee without complication evident. Postop changes in the soft tiss ues including drain placement. Procedure Note [facility] Inft User - 2019 4:04 PM CDT Patient name: LAYNE CARVALHO : 1950 70 years EXAMINATION: XR FEMUR 2 VW RIGHT Ordering Physician: MARICRUZ SULLIVAN II CLINICAL HISTORY: surgery COMPARISON: 04/06/2020. TECHNIQUE: Frontal and lateral views of the right f emur were performed. FINDINGS: Changes of plate and igor fixation spanni ng an osteotomy through the proximal right femur. No hardware compli cation seen. Right hip maintains alignment with narrowing and osteophyte formation present. Heterotopic bone formation across the osteotomy site of t he proximal third femoral diaphysis. Hinged arthroplasty noted of the right knee without complication evident. Postop changes in the soft tiss ues including drain placement. IMPRESSION Postop changes of interval osteotomies i nvolving the proximal right femur without hardware complication seen. RL: [id number] Performing Organization Address City/State/Zipcode Phone Number PACS/VR/DOSE Type and Screen - ONCE Routine (04/06/2020 11:51 PM CDT) Pathologist [facility] ABO & RH B POSITIVE LAB Comment: Performed at [facility] Laboratory Services - [facility] Blood [place] [address] Toll Free: [phone] CLIA No. [id number] IAT Negative LAB Comment: Performed at [facility] Laboratory Services - [facility] Blood [place] [address] Toll Free: [phone] CLIA No. [id number] Specimen Blood - VENOUS Performing Organization Address City/State/Zipcode Phone Number BLD LAB BASIC METABOLIC PANEL (NA, K, CL, CO2, GLUCOSE, BUN, CREATININE, CA) (04/06/2020 11:49 PM CDT) Pathologist [facility] NA 140 135 - 145 [facility] mmol/L SERVICES K 3.6 3.5 - 5.0 [facility] mmol/L SERVICES CL 110 (H) 98 - 108 mmol/L [facility] SERVICES CO2 TOTAL 23 23 - 31 mmol/L [facility] SERVICES AGAP 7 2 - 16 [facility] BUN 12 7 - 23 mg/dL [facility] SERVICES GLUCOSE 127 (H) 70 - 110 mg/dL [facility] SERVICES CREATININE 0.71 0.50 - 1.04 [facility] mg/dL SERVICES CALCIUM 8.4 (L) 8.6 - 10.6 [facility] mg/dL SERVICES eGFR Calculation 81.9 mL/min/1.73m2 [facility] (Non- SERVICES Cypriot) eGFR Calculation 99.2 mL/min/1.73m2 [facility] () SERVICES Specimen Blood - VENOUS Narrative Performed At Association of Glomerular Filtration Rate (GFR) and St aging [facility] of Kidney Disease* + + [...] in imaging tests) . Performing Organization Address City/[facility]/Zipcode Phone Number [facility] CLIA: [id number] [place] [address] [place] [address] CBC WITHOUT DIFF (04/06/2020 11:49 PM CDT) WBC 9.81 4.30 - 11.10 [facility] 10*3/L SERVICES RBC 4.16 3.93 - 5.25 [facility] 10*6/L SERVICES HGB 12.9 11.6 - 15.0 [facility] g/dL SERVICES HCT 38.2 35.7 - 45.2 % [facility] SERVICES MCH 31.0 25.9 - 32.8 pg [facility] MCV 91.8 80.6 - 95.5 fL [facility] MCHC 33.8 31.6 - 35.1 [facility] g/dL SERVICES PLT 184 166 - 358 [facility] 10*3/L SERVICES MPV 13.0 (H) 9.5 - 12.9 fL [facility] SERVICES RDW-CV 14.3 12.0 - 15.5 % [facility] RDW-SD 47.8 39.0 - 49.9 fL [facility] SERVICES NRBC x10^3 <0.01 10*3/L [facility] SERVICES NRBC/100 WBC 0.0 0.0 - 10.0 [facility] /100 WBCs SERVICES IPF % 10.6 (H)Comment: 1.3 - 7.7 % [facility] Platelet count SERVICES measured by fluorescence method. Specimen Blood - VENOUS Performing Organization Address City/[facility]/Zipcode Phone Number [facility] CLIA: [id number] [place] [address] [place] [address] XR CHEST 1 VW (04/06/2020 11:30 PM CDT) Specimen Impressions Performed At PACS/VR/DOSE Prominent central vascular congestion. N o focal consolidation. Cardiomegaly, unchanged. Preliminary Report Dictated by Resident: Gareth Salvador MD., have reviewe d this study and agree with the above report. Narrative Performed At EXAM: PACS/VR/DOSE XR CHEST 1 VW HISTORY: 69 years-old; Female; surgery p re op COMPARISON: 11/23/2019 radiograph FINDINGS: Lungs/Pleura: . There is prominent central vascular co ngestion There is no pleural effusion or pneumothorax. Heart/Mediastinum: The cardiomediastinal silhouette is enlarged, unchanged No acute osseous structure abnormality. Procedure Note [facility] Results Inft User - 2019 12:00 AM CDT EXAM: XR CHEST 1 VW HISTORY: 69 years-old; Female; surgery p re op COMPARISON: 11/23/2019 radiograph FINDINGS: Lungs/Pleura: . There is prominent centr al vascular congestion There is no pleural effusion or pneumothorax. Heart/Mediastinum: The cardiomediastinal silhouette is enlarged, unchanged No acute osseous structure abnormality. IMPRESSION Prominent central vascular congestion. N o focal consolidation. Cardiomegaly, unchanged. Preliminary Report Dictated by Resident: Gareth Salvador MD., have reviewed this study and agree with the above report. Performing Organization Address City/State/Zipcode Phone Number PACS/VR/DOSE CT HIP RIGHT WO CONTRAST (04/06/2020 10:02 PM CDT) Specimen Impressions Performed At PACS/VR/DOSE [employer] proximal femoral subtrochanteric fracture with overlying fluid collection which may be postoperative. Preliminary Report Dictated by Resident: Dena Boston I, Raghavendra Zapata MD., have reviewed this study and a gree with the above report. Narrative Performed At EXAM: CT HIP RIGHT WO CONTRAST PACS/VR/DOSE HISTORY: 69 years old Female with Fractu re, hip Hip replaced, periprosthetic fracture suspected TECHNIQUE: CT imaging of the right hip is obtained i n 0.63 mm intervals. Sagittal and coronal, are generated and reviewed. Imaging was performed without IV contrast material. COMPARISON: 12/12/2019, 04/06/2020 radiogra phs FINDINGS: Diffuse osteopenia is noted. There is distal femoral resection with u tilization of a long stem prosthesis for femoral tibial arthroplas ty. Overlying lateral femoral cortical plate fixation hardware is seen with partial visualization of dislodged screw fragments at the distal fixation plate. There is transversely oriented subtrochanteric fracture through the proximal plate fixation screw with abduction of the pro ximal fracture fragment with posterior distraction of the proximal femoral fracture fragment. There is a resultant varus angulation at the hip. T he lateral fixation plate is partially backed out along the proximal femur, most notable proximally. This gap measures at least 1.1 cm. A healing osteotomy through the proximal femoral diaphysis is partially visualize d with surrounding heterotopic ossification and bony fragmentation. A fluid collectio n is seen superficial to the right proximal femoral fixation plate measuring 6.8 cm in greatest anterior posterior dimension, 2 cm in gr eatest transverse dimension and approximately 5 cm in craniocaudal dimen lauren. Procedure Note [facility], [facility]iant Results Inft User - 2019 6:49 AM CDT EXAM: CT HIP RIGHT WO CONTRAST HISTORY: 69 years old Female with Fractu re, hip Hip replaced, periprosthetic fracture suspected TECHNIQUE: CT imaging of the right hip is obtained in 0.63 mm intervals. Sagittal and coronal, are generated and reviewed. Imaging was performed without IV contrast material. COMPARISON: 12/12/2019, 04/06/2020 radiogra phs FINDINGS: Diffuse osteopenia is noted. There is distal femoral resection with u tilization of a long stem prosthesis for femoral tibial arthroplas ty. Overlying lateral femoral cortical plate fixation hardware is seen with partial visualization of dislodged screw fragments at the distal fixation plate. There is transversely oriented subtrochanteric fr acture through the proximal plate fixation screw with abduction of the pro ximal fracture fragment with posterior distraction of the proximal fe moral fracture fragment. There is a resultant varus angulation at the hip. T he lateral fixation plate is partially backed out along the proximal femur, most notable proximally. This gap measures at least 1.1 cm. A hea ling osteotomy through the proximal femoral diaphysis is partially visualize d with surrounding heterotopic ossification and bony fragmentation. A f luid collection is seen superficial to the right proximal femoral fixation p late measuring 6.8 cm in greatest anterior posterior dimension, 2 cm in gr eatest transverse dimension and approximately 5 cm in craniocaudal dimen lauren. IMPRESSION Perihardware proximal femoral subtrochan teric fracture with overlying fluid collection which may be postoperative. Preliminary Report Dictated by Resident: Raghavendra Salvador MD., have reviewed is study and agree with the above report. Performing Organization Address City/State/Zipcode Phone Number PACS/VR/DOSE XR HIPS 2 VW RIGHT (04/06/2020 9:56 PM CDT) Specimen Impressions Performed At PACS/VR/DOSE [employer] subtrochanteric femoral fra cture. Preliminary Report Dictated by Resident: Raghavendra Salvador MD., have reviewed this study and a gree with the above report. Narrative Performed At EXAM: PACS/VR/DOSE XR HIPS 2 VW RIGHT HISTORY: trauma COMPARISON: Same day radiographs and CT. FINDINGS: Image quality: Suboptimal evaluation of the femoral neck and head due to penetration. Radiographs of the right hip demonstrate perihardware subtrochanteric femoral fracture at the level of a proximal lateral fe moral plate fixation screw. There is varus angulation with partial lateral displacement of the proximal fixation plate. Diffuse osteopenia is noted. Partially visualized left femoral nail and plate fixation hardware is seen with severe left hip osteoarthrosis.. Procedure Note [facility], Radiant Results Inft User - 2019 7:00 AM CDT EXAM: XR HIPS 2 VW RIGHT HISTORY: trauma COMPARISON: Same day radiographs and CT. FINDINGS: Image quality: Suboptimal evaluation of the femoral neck and head due to penetration. Radiographs of the right hip demonstrate perihardware subtrochanteric femoral fracture at the level of a proxi mal lateral femoral plate fixation screw. There is varus angulation with pa rtial lateral displacement of the proximal fixation plate. Diffuse osteope jerome is noted. Partially visualized left femoral nail and plate fixation xiao dware is seen with severe left hip osteoarthrosis.. IMPRESSION Perihardware subtrochanteric femoral fra cture. Preliminary Report Dictated by Resident: Raghavendra Salvador MD., have reviewed is study and agree with the above report. Performing Organization Address City/State/Zipcode Phone Number PACS/VR/DOSE documented in this encounter Visit Diagnoses Diagnosis Closed fracture of right femur with rout ine healing, unspecified fracture morphology, unspecified portion of femur, subsequent encounter documented in this encounter Administered Medications Medication Order MAR Action Action Date Dose Rate Site albuterol (PROVENTIL) 2.5 mg /3 Given 04/15/2020 7:57 PM CDT 2. 5 mg mL (0.083 %) nebulizer solution 2.5 mg 2.5 mg, Inhalation, Q6HPRN, Starting [place] 04/14/20 at 1542, Until Discontinued, Routine, Shortness of Breath, Wheezing Given 04/15/2020 10:13 AM CDT 2.5 mg Given 04/14/2020 11:25 PM CDT 2.5 mg enoxaparin (LOVENOX) injection 30 mg Given 04/16/2020 9:20 AM CDT 30 mg Abdo men-SC 30 mg, Subcutaneous, Q12H, First dose on Wed04/08/20 at 2000, Until Discontinued, Routine Given 04/15/2020 8:14 PM CDT 30 mg Abdo men-SC Given 04/15/2020 8:09 AM CDT 30 mg Abdo men-SC heparin lock flush (HEP-LOCK) 100 unit/m L injection 200 Units 200 Units (2 mL), IV Push, PRN - SEE INS TRUCTIONS, Starting Wed04/09/20 at 1948, Until Discontinued, Routine HYDROcodone-acetaminophen (NORCO) 10-325 Given 04/15/2020 11 :17 PM CDT 1 tablet mg tablet 1 tablet 1 tablet, Oral, Q4HPRN, Starting [place] 04/07/20 at 0037, Until Discontinued, Routine, Pain (scale 7-10) Given 04/14/2020 12:23 AM CDT 1 tablet Given 04/13/2020 12:29 AM CDT 1 tablet lactated ringers IV infusion 1,000 mL at 42 mL/hr, 1,000 mL, IV Infusion, CONT INUOUS, Starting Wed04/08/20 at 1430, Until Discontinued, Routine, PACU morpHINE injection 2 mg Given 04/09/2020 11:39 AM CDT 2 mg 2 mg, Slow IV Push, Q4HPRN, Starting [place] 04/07/20 at 0037, Until Discontinued, Routine, For pain unrelieved by oral medications, or if patient is unable to tolerate oral pain medication. Given 2020 2:23 PM CDT 2 mg Given 2020 1:28 AM CDT 2 mg NaCl 0.9% (NS) injection 10 mL 10 mL, Slow IV Push, PRN - SEE INSTRUCTI ONS, Starting Wed04/09/20 at 1948, Until Discontinued, Routine pantoprazole (PROTONIX) EC tablet 40 mg Given 04/16/2020 9:20 AM CDT 40 mg 40 mg, Oral, DAILY, First dose on Wed04/10/20 at 2100, Until Discontinued, Routine Given 04/15/2020 8:09 AM CDT 40 mg Given 04/14/2020 8:14 AM CDT 40 mg sennosides-docusate sodium (SENOKOT-S) Given 04/15/2020 8:14 PM CDT 1 tablet 8.6-50 mg per tablet 1 tablet 1 tablet, Oral, BID, First dose on Wed04/07/20 at 0800, Until Discontinued, Routine Given 04/14/2020 8:14 AM CDT 1 tablet Given 04/13/2020 8:41 AM CDT 1 tablet traMADoL (ULTRAM) tablet 50 mg Given 04/09/2020 6:19 PM CDT 50 mg 50 mg, Oral, Q6HPRN, Starting [place] 04/07/20 at 0037, Until Discontinued, Routine, Pain (scale 4-6) Given 04/08/2020 4:56 PM CDT 50 mg Medication Order MAR Action Action Date Dose Rate Site albuterol (PROVENTIL) 2.5 mg /3 Given 04/14/2020 2:39 AM CDT 2. 5 mg mL (0.083 %) nebulizer solution 2.5 mg 2.5 mg, Inhalation, ONCE, 1 dose, [place] 04/14/20 at 0330, Routine ceFAZolin in dextrose (iso-os) (ANCEF) 2 Given 04/09/2020 3:33 AM CDT 2 g gram/100 mL Piggyback 2 g 2 g (2,000 mg), IV Piggyback, Q8H ABX, 2 doses, First dose on Wed04/08/20 at 1615, Last dose on Wed04/09/20 at 0015, 100 mL, Reason for Anti-Infective: Surgical Prophylaxis, Surgical Prophylaxis: Orthopaedic, Duration of therapy: within 24 hours of surgery Given 04/08/2020 8:46 PM CDT 2 g FENTanyl PF (SUBLIMAZE (PF)) injection 25 Given 04/08/2020 4:27 PM CDT 25 mcg mcg 25 mcg, Slow IV Push, Q5MIN PRN, 4 doses, Starting 04/08/20 at 1429, Until 04/08/20 at 1627, Routine, Pain (scale 4-6), PACU Given 04/08/2020 3:59 PM CDT 25 mcg Given 04/08/2020 3:31 PM CDT 25 mcg ipratropium (ATROVENT) 0.02 % nebulizer Given 04/14/2020 2:39 A M CDT 0.5 mg solution 0.5 mg 0.5 mg, Inhalation, ONCE, 1 dose, 04/14/20 at 0330, Routine morpHINE injection 4 mg Given 04/06/2020 9:24 PM CDT 4 mg 4 mg, Slow IV Push, ONCE, 1 dose, 04/06/20 at 2215, Routine morpHINE injection 4 mg Given 2020 2:21 AM CDT 4 mg 4 mg, Slow IV Push, ONCE, 1 dose, 04/07/20 at 0230, Routine NaCl 0.9% (NS) IV infusion 1,000 New Bag 04/10/2020 6:18 PM C DT 1,000 mL 150 mL/hr mL at 150 mL/hr, IV Infusion, ONCE, 1 dose, 04/10/20 at 1900, Routine, 1 L bolus, ondansetron (ZOFRAN (PF)) injection 4 mg Given 04/08/2020 2:57 PM CDT 4 mg 4 mg, Slow IV Push, PRN, 1 dose, Starting 04/08/20 at 1429, Until 04/08/20 at 1457, Routine, Nausea and Vomiting (N/V), PACU documented in this encounter Additional Health Concerns Infection Onset Date Last Indicated Resolved Time COVID-19 Rule Out 04/06/2020 04/06/2020 04/09/2020 8: 33 AM CDT COVID-19 Rule Out 04/16/2020 04/16/2020 04/16/2020 3: 07 PM CDT documented as of this encounter Insurance Payer Benefit Plan / Subscriber ID Effective Phone Address T ype Group Dates MEDICARE MEDICARE PART [id number] 2016-Pres 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
[2020-04-19] MEDS: TRAMADOL HCL 50 MG TAB PO PRN ×3 (05:14→23:12)
[2020-04-19] MEDS: ENOXAPARIN 40 MG/0.4 ML SQ SCH (06:35)
[2020-04-19] MEDS: PANTOPRAZOLE 40MG TABLET PO SCH (06:35)
[2020-04-19] MEDS: LIDOCAINE 4% PATCH TOP SCH (06:35)
[2020-04-19] MEDS: FLUTICASONE 50MCG NASAL SPRAY NAS SCH (07:09)
[2020-04-19 07:18] LABS: Absolute Lymphocytes (CBC) 1.3 K/uL (0.7-4.9); Basophils % 0.3 % (0-1.3); Hematocrit 26.5 % (36.0-45.0); Lymphocytes % 9.7 % (15.3-44.8); MPV 9.1 fL (7.6-11.3); RBC Red Blood Cell Count 2.86 M/uL (3.86-4.86)
[2020-04-19 07:38] LABS: Albumin 2.4 g/dL (3.4-5.0); Magnesium 2.6 mg/dL (1.8-2.4); Potassium 4.3 mmol/L (3.5-5.1); Prealbumin 10.4 mg/dL (20-40)
[2020-04-19] MEDS: predniSONE 20 MG TAB PO SCH ×2 (07:59→19:41)
[2020-04-19] MEDS: GABAPENTIN 300 MG CAP PO SCH ×2 (07:59→19:42)
[2020-04-19] MEDS: DOCUSATE NA 100 MG CAP PO SCH ×3 (07:59→19:42)
[2020-04-19] MEDS: MELOXICAM 7.5 MG TAB PO SCH (07:59)
[2020-04-19] MEDS: ATORVASTATIN 10 MG TAB PO SCH (08:00)
[2020-04-19] MEDS: DOXYCYCLINE 100 MG CAP PO SCH (08:00)
[2020-04-19 09:46] LABS: White Blood Cell Scan OK (OK)
[2020-04-19 09:47] LABS: Blood Morphology Comment NOT SEEN (NOT SEEN); Platelet Estimate INCR
--- NOTE | 2020-04-19 09:50 | P.RH.PN ---
Estimated Length of Stay: 14 Expected Discharge Date: 05/01/20 Discharge Disposition Plan: Home Family Support: Yes Half-Way Goal: Mobility, Transfers, Self Care Vital Signs: Last Vital Signs Temp 97.5 F 04/19/20 08:00 Pulse 63 04/19/20 08:00 Resp 18 04/19/20 08:00 BP 118/59 L 04/19/20 08:00 Pulse Ox 96 04/19/20 08:00 Laboratory: Laboratory Last Values WBC 13.1 K/uL (4.3-10.9) H 04/19/20 06:56 RBC 2.86 M/uL (3.86-4.86) L 04/19/20 06:56 Hgb 8.6 g/dL (12.0-15.0) L 04/19/20 06:56 Hct 26.5 % (36.0-45.0) L 04/19/20 06:56 MCV 92.6 fL (80-100) D 04/19/20 06:56 MCH 30.1 pg (27.0-35.0) 04/19/20 06:56 MCHC 32.5 g/dL (32.0-36.0) 04/19/20 06:56 RDW 15.3 % (12.1-15.2) H 04/19/20 06:56 Plt Count 446 K/uL (152-406) H 04/19/20 06:56 MPV 9.1 fL (7.6-11.3) 04/19/20 06:56 Neutrophils % 86.1 % (41.7-73.7) H 04/19/20 06:56 Lymphocytes % 9.7 % (15.3-44.8) L 04/19/20 06:56 Monocytes % 3.9 % (3.3-12.3) 04/19/20 06:56 Eosinophils % 0.0 % (0-4.4) 04/19/20 06:56 Basophils % 0.3 % (0-1.3) 04/19/20 06:56 Absolute Neutrophils 11.3 K/uL (1.8-8.0) H 04/19/20 06:56 Absolute Lymphocytes 1.3 K/uL (0.7-4.9) 04/19/20 06:56 Absolute Monocytes 0.5 K/uL (0.1-1.3) 04/19/20 06:56 Absolute Eosinophils 0.0 K/uL (0-0.5) 04/19/20 06:56 Absolute Basophils 0.0 K/uL (0-0.5) 04/19/20 06:56 Sodium 138 mmol/L (136-145) 04/19/20 06:56 Potassium 4.3 mmol/L (3.5-5.1) 04/19/20 06:56 Chloride 109 mmol/L (98-107) H 04/19/20 06:56 Carbon Dioxide 22 mmol/L (21-32) 04/19/20 06:56 BUN 13 mg/dL (7-18) 04/19/20 06:56 Creatinine 0.68 mg/dL (0.55-1.3) 04/19/20 06:56 Estimated GFR 86 mL/min (=/>90) L 04/19/20 06:56 Glucose 136 mg/dL (74-106) H 04/19/20 06:56 Calcium 8.2 mg/dL (8.5-10.1) L 04/19/20 06:56 Magnesium 2.6 mg/dL (1.8-2.4) H D 04/19/20 06:56 Albumin 2.4 g/dL (3.4-5.0) L 04/19/20 06:56 Prealbumin 10.4 mg/dL (20-40) L 04/19/20 06:56 Urine Color Yellow 04/18/20 23:10 Urine Appearance Cloudy 04/18/20 23:10 Urine pH 6.5 (5.0-7.0) 04/18/20 23:10 Ur Specific [place] <=1.005 (1.005-1.030) 04/18/20 23:10 Glucose (UA)(Auto) Negative (NEG) 04/18/20 23:10 Urine Ketones Negative (NEG) 04/18/20 23:10 Urine Blood 2+ (NEG) H 04/18/20 23:10 Urine Nitrite Negative (NEG) 04/18/20 23:10 Urine Bilirubin Negative (NEG) 04/18/20 23:10 Urine Urobilinogen 1.0 mg/dL (0.2-1.0) 04/18/20 23:10 Ur Leukocyte Esterase 2+ (NEG) H 04/18/20 23:10 Urine RBC 5-10 /HPF (NONE SEEN) H 04/18/20 23:10 Urine WBC 10-20 /HPF (<5) H 04/18/20 23:10 Ur Squamous Epith Cells 10-20 /HPF (NONE SEEN) H 04/18/20 23:10 Ur Urothelial Cells <5 /HPF (NONE SEEN) 04/18/20 23:10 Urine Bacteria >50 /HPF (<20) H 04/18/20 23:10 Urine Culture Reflexed Not needed 04/18/20 23:10 Urine Total Protein Negative (NEG) 04/18/20 23:10 Weight: 246 lb Wound Present: No Closed Surgical Incision Present: Yes Negative Pressure Wound Therapy Present: No Physician Update: Labs reviewed and are stable. Hgb is 8.6. She is doing well so far. She walked 10 feet with nonweight bearing. Her transfers is at supervision. Summary: Patient's care plan and exterminator goals have been reviewed and revised as necessary. Please see the Rehabilitation Signature page for all necessary signatures.
[2020-04-19] MEDS: CEPACOL LOZENGES PO PRN ×3 (13:20→21:49)
[2020-04-19] MEDS: CRANBERRY FRUIT EXTRACT 200 MG CAP PO SCH (19:41)
[2020-04-20] MEDS: CEPACOL LOZENGES PO PRN ×2 (00:35→20:31)
[2020-04-20] MEDS: ACETAMINOPHEN 325 MG TABLET PO PRN (00:35)
[2020-04-20] MEDS: LIDOCAINE 4% PATCH TOP SCH (07:25)
[2020-04-20] MEDS: PANTOPRAZOLE 40MG TABLET PO SCH (07:26)
[2020-04-20] MEDS: ENOXAPARIN 40 MG/0.4 ML SQ SCH (07:26)
[2020-04-20] MEDS: ATORVASTATIN 10 MG TAB PO SCH ×2 (08:00→20:02)
[2020-04-20] MEDS: DOCUSATE NA 100 MG CAP PO SCH (08:00)
[2020-04-20] MEDS: FLUTICASONE 50MCG NASAL SPRAY NAS SCH (08:00)
[2020-04-20] MEDS: MELOXICAM 7.5 MG TAB PO SCH (08:18)
[2020-04-20] MEDS: GABAPENTIN 300 MG CAP PO SCH ×2 (08:18→19:54)
[2020-04-20] MEDS: DOXYCYCLINE 100 MG CAP PO SCH (08:19)
[2020-04-20] MEDS: predniSONE 20 MG TAB PO SCH ×2 (08:19→19:54)
[2020-04-20] MEDS: CRANBERRY FRUIT EXTRACT 200 MG CAP PO SCH ×2 (08:19→19:54)
[2020-04-20] MEDS: TRAMADOL HCL 50 MG TAB PO PRN ×2 (08:20→13:35)
[2020-04-20] MEDS ORDERED: DOCUSATE NA 100 MG CAP PO PRN (10:08)
[2020-04-21] MEDS: PANTOPRAZOLE 40MG TABLET PO SCH (07:00)
[2020-04-21] MEDS: TRAMADOL HCL 50 MG TAB PO PRN ×2 (07:00→20:09)
[2020-04-21] MEDS: LIDOCAINE 4% PATCH TOP SCH (08:08)
[2020-04-21] MEDS: FLUTICASONE 50MCG NASAL SPRAY NAS SCH (08:09)
[2020-04-21] MEDS: predniSONE 20 MG TAB PO SCH ×2 (08:09→20:08)
[2020-04-21] MEDS: GABAPENTIN 300 MG CAP PO SCH ×2 (08:09→20:07)
[2020-04-21] MEDS: MELOXICAM 7.5 MG TAB PO SCH (08:09)
[2020-04-21] MEDS: DOXYCYCLINE 100 MG CAP PO SCH (08:09)
[2020-04-21] MEDS: CRANBERRY FRUIT EXTRACT 200 MG CAP PO SCH ×2 (08:10→20:07)
[2020-04-21] MEDS: ENOXAPARIN 40 MG/0.4 ML SQ SCH (08:10)
[2020-04-21] MEDS: FE SULF/FA/VIT B COMP & C TAB PO SCH (12:34)
[2020-04-21] MEDS: PROMOD 30 ML DOSE PO SCH ×2 (12:34→20:07)
[2020-04-21] MEDS: FERROUS SULFATE 325 MG TAB PO SCH (12:34)
--- NOTE | 2020-04-21 14:44 | FAST ---
[employer] FORM SHIFT START DATE/TIME: 04/21/2020 07:00 (CDT) SHIFT END DATE/TIME: 04/21/2020 19:00 (CDT) NAME DESIREE CARVALHO DATE OF : 1950 DATE OF ADMISSION: 04/18/2020 10:47 (CDT) PHONE: AGE: 70 N# [id number] GENDER: Female ENCOUNTER PHYSICIAN: Dr. Moi Barry M.D. ADMISSION DIAGNOSIS: - Orthopaedic Disorders 08 - Unilateral Hip Fracture (08.11) RIGHT FEMUR FRACTURE. EATING: EATING - STEP 1: Does the patient complete the activity by him/herself with no assistance (physical, verbal/nonverbal cueing, setup/clean-up)? No. EATING - STEP 2: Does the patient need only setup/clean-up assistance from one helper? Yes. 1. [id number] ADMISSION PERFORMANCE: Setup or clean-up assistance CODE: 05 ORAL HYGIENE: ORAL HYGIENE - STEP 1: Does the patient complete the activity by him/herself with no assistance (physical, verbal/nonverbal cueing, setup/clean-up)? No. ORAL HYGIENE - STEP 2: Does the patient need only setup/clean-up assistance from one helper? Yes. 1. [id number] ADMISSION PERFORMANCE: Setup or clean-up assistance CODE: 05 TOILETING HYGIENE: TOILETING HYGIENE - STEP 1: Does the patient complete the activity by him/herself with no assistance (physical, verbal/nonverbal cueing, setup/clean-up)? No. TOILETING HYGIENE - STEP 2: Does the patient need only setup/clean-up assistance from one helper? Yes. 1. [id number] ADMISSION PERFORMANCE: Setup or clean-up assistance CODE: 05 BATHING: Not assessed/no information CODE: - DRESSING - UPPER BODY: DRESSING - UPPER BODY - STEP 1: Does the patient complete the activity by him/herself with no assistance (physical, verbal/nonverbal cueing, setup/clean-up)? No. DRESSING - UPPER BODY - STEP 2: Does the patient need only setup/clean-up assistance from one helper? Yes. 1. [id number] ADMISSION PERFORMANCE: Setup or clean-up assistance CODE: 05 DRESSING - LOWER BODY: DRESSING - LOWER BODY - STEP 1: Does the patient complete the activity by him/herself with no assistance (physical, verbal/nonverbal cueing, setup/clean-up)? No. DRESSING - LOWER BODY - STEP 2: Does the patient need only setup/clean-up assistance from one helper? Yes. 1. [id number] ADMISSION PERFORMANCE: Setup or clean-up assistance CODE: 05 PUTTING ON/TAKING OFF FOOTWEAR: FOOTWEAR - STEP 1: Does the patient complete the activity by him/herself with no assistance (physical, verbal/nonverbal cueing, setup/clean-up)? No. FOOTWEAR - STEP 2: Does the patient need only setup/clean-up assistance from one helper? No. FOOTWEAR - STEP 3: Does the patient need only verbal/nonverbal cueing or touching/steadying/contact guard assistance fro m one helper? No. FOOTWEAR - STEP 4: Does the patient need physical assistance - for example lifting or trunk support from one helper - wi th the helper providing less than half of the effort? Yes. 1. [id number] ADMISSION PERFORMANCE: Partial/moderate assistance CODE: 03 ROLL LEFT AND RIGHT: ROLL LEFT AND RIGHT - STEP 1: Does the patient complete the activity by him/herself with no assistance (physical, verbal/nonverbal cueing, setup/clean-up)? No. ROLL LEFT AND RIGHT - STEP 2: Does the patient need only setup/clean-up assistance from one helper? No. ROLL LEFT AND RIGHT - STEP 3: Does the patient need only verbal/nonverbal cueing or touching/steadying/contact guard assistance fro m one helper? Yes. 1. [id number] ADMISSION PERFORMANCE: Supervision or touching assistance CODE: 04 SIT TO LYING: SIT TO LYING - STEP 1: Does the patient complete the activity by him/herself with no assistance (physical, verbal/nonverbal cueing, setup/clean-up)? No. SIT TO LYING - STEP 2: Does the patient need only setup/clean-up assistance from one helper? No. SIT TO LYING - STEP 3: Does the patient need only verbal/nonverbal cueing or touching/steadying/contact guard assistance fro m one helper? No. SIT TO LYING - STEP 4: Does the patient need physical assistance - for example lifting or trunk support from one helper - wi th the helper providing less than half of the effort? Yes. 1. [id number] ADMISSION PERFORMANCE: Partial/moderate assistance CODE: 03 LYING TO SITTING: LYING TO SITTING ON SIDE OF BED - STEP 1: Does the patient complete the activity by him/herself with no assistance (physical, verbal/nonverbal cueing, setup/clean-up)? No. LYING TO SITTING ON SIDE OF BED - STEP 2: Does the patient need only setup/clean-up assistance from one helper? No. LYING TO SITTING ON SIDE OF BED - STEP 3: Does the patient need only verbal/nonverbal cueing or touching/steadying/contact guard assistance fro m one helper? Yes. 1. [id number] ADMISSION PERFORMANCE: Supervision or touching assistance CODE: 04 SIT TO STAND: SIT TO STAND - STEP 1: Does the patient complete the activity by him/herself with no assistance (physical, verbal/nonverbal cueing, setup/clean-up)? No. SIT TO STAND - STEP 2: Does the patient need only setup/clean-up assistance from one helper? No. SIT TO STAND - STEP 3: Does the patient need only verbal/nonverbal cueing or touching/steadying/contact guard assistance fro m one helper? Yes. 1. [id number] ADMISSION PERFORMANCE: Supervision or touching assistance CODE: 04 TRANSFERS: BED, CHAIR: CHAIR/[id number] TRANSFER - STEP 1: Does the patient complete the activity by him/herself with no assistance (physical, verbal/nonverbal cueing, setup/clean-up)? No. CHAIR/[id number] TRANSFER - STEP 2: Does the patient need only setup/clean-up assistance from one helper? No. CHAIR/[id number] TRANSFER - STEP 3: Does the patient need only verbal/nonverbal cueing or touching/steadying/contact guard assistance fro m one helper? Yes. 1. [id number] ADMISSION PERFORMANCE: Supervision or touching assistance CODE: 04 TRANSFER TOILET: TOILET TRANSFER - STEP 1: Does the patient complete the activity by him/herself with no assistance (physical, verbal/nonverbal cueing, setup/clean-up)? No. TOILET TRANSFER - STEP 2: Does the patient need only setup/clean-up assistance from one helper? No. TOILET TRANSFER - STEP 3: Does the patient need only verbal/nonverbal cueing or touching/steadying/contact guard assistance fro m one helper? Yes. 1. [id number] ADMISSION PERFORMANCE: Supervision or touching assistance CODE: 04 TRANSFERS: CAR: Not assessed/no information CODE: - WALK 10 FEET: Not assessed/no information CODE: - 1 STEP (CURB): Not assessed/no information CODE: - PICKING UP OBJECT: Not assessed/no information CODE: - DOES THE PATIENT USE A WHEELCHAIR/SCOOTER? Q1. DOES THE PATIENT USE A WHEELCHAIR/SCOOTER?: Yes CODE: 1 WHEEL 50 FEET WITH TWO TURNS: Not assessed/no information CODE: - INDICATE THE TYPE OF WHEELCHAIR/SCOOTER USED: RR1. INDICATE THE TYPE OF WHEELCHAIR/SCOOTER USED.: Manual CODE: 1 WHEEL 150 FEET: Not assessed/no information CODE: - INDICATE THE TYPE OF WHEELCHAIR/SCOOTER USED: SS1. INDICATE THE TYPE OF WHEELCHAIR/SCOOTER USED.: Manual CODE: 1 BLADDER AND BOWEL: H350. BLADDER CONTINENCE (3-DAY ASSESSMENT PERIOD): Always continent (no documented incontinence) CODE: 0 H400. BOWEL CONTINENCE (3-DAY ASSESSMENT PERIOD): Always continent CODE: 0 SIGNATURE PANEL: The following modified sections: 1. [id number] Admission Performance, 1. [id number] Admission Performance, 1. [id number] Admission Performance, 1. DN6832e Admission Performance, 1. VT0073e Admission Performance, 1. GS6108n Admission Performance, 1. [id number] Admission Performance, 1. [id number] Admission Performance , 1. [id number] Admission Performance, 1. [id number] Admission Performance, 1. [id number] Admission Performanc e, 1. [id number] Admission Performance, 1. [id number] Admission Performance, 1. [id number] Admission Performan ce, Q1. Does the patient use a wheelchair/scooter?, RR1. Indicate the type of wheelchair/scooter used ., Code, SS1. Indicate the type of wheelchair/scooter used., H350. Bladder Continence (3-day assessme nt period), H400. Bowel Continence (3-day assessment period) were [electronically] signed by Kandi Arndt [email or web address] on WedApr 21 2020 14:43:42 T-0500 (Central Daylight Time)
[2020-04-21] MEDS: CEPACOL LOZENGES PO PRN (14:58)
--- NOTE | 2020-04-21 17:00 | R.PN ---
PROGRESS NOTES ENCOUNTER DATE AND TIME: 04/21/2020 16:55 (CDT) NAME DESIREE CARVALHO DATE OF : 1950 DATE OF ADMISSION: 04/18/2020 10:47 (CDT) RIGHT FEMUR FRACTURESUBJECTIVE: Pt denied any depression. Pt denied any Shortness of Breath. VITAL SIGNS Temperature: 97.4 F SBP/DBP: 154/69 Pulse: 83 Resp: 16 MEDICATION ALLERGIES: XANAX ZINC ENVIRONMENTAL ALLERGIES: - Substance Allergies None Known - Other Allergies None Known NURSING: - Shower allowing shower - Skin care per protocol PRECAUTIONS: - Anterior Hip Precaution No abduction No active extension No adduction across midline No external rotation No hip flexion >90 degrees No internal rotation - Posterior Hip Precaution No adduction across midline No external rotation No hip flexion >90 degrees No internal rotation No wheel chair propulsion - Weight Bearing Precaution WBAT left LE ACTIVITIES OOB only with supervision THERAPIES: - Dietary and Nutrition Adequate Nutrition. Nutritional Education. Nutritional Supplements. PHYSICAL EXAM - Gen Alert and awake Lying in bed No apparent distress Oriented to: person, time, and place - Skin No skin breakdown. Normacephalic - Eyes No abnormalities - ENMT No abnormalities - Neck No abnormalities No cervical adenopathy - CVS RRR - Chest No abnormalities - Resp Clear to auscultation - Abd Soft - GI Non distended Deferred - No abnormalities - Ext Right hip surgical site has good hemostasis. - MSK 4+/5 weakness in right lower extremity - Neuro 4/5 strength right lower extremity. - Psych No abnormalities ASSESSMENT: Pt. is a 70 yo Right-handed female of unknown race.On 04/06/2020 she was admitted to [facility] nd underwent emergency surgery for RIGHT FEMUR FRACTURE (Unilateral Hip Fracture) by DR. SULLIVAN.Pre -morbidly, Pt. was independent/mod-I in Communication, Safety Awareness, Social Cognition, and Transf ers Control; and she had good Endurance and Locomotion.Currently, she has deficits of Safety Awarenes s, Balance, Sphincter Control, Self-Care, and Endurance.Pt. is now referred to [facility] for acute in-patient rehabilitation in order to maximize patient's functional independenc e in activities of daily living, strength, ROM, and mobility.- Rehab Goal Patient has realistic goal of being discharged at assistance level 7-Ind to reside at Home with Fami ly/Relatives. MDM/PLAN: - Physical Therapy Decreased range of motion - to improve, our physical therapists will perform initial evaluation of p t's status upon admission and devise an individualized program for increasing patient's Range of [place] on. Gait dysfunction - to improve, our physical therapists will perform initial evaluation of pt's statu s upon admission and devise an individualized program for Gait Training, and Wheel Chair mobility Need for home safety evaluation - to improve, our physical therapists will perform initial evaluatio n of pt's status upon admission and devise an individualized program for Home Evaluation Need in caregiver upon discharge - to improve, our physical therapists will perform initial evaluati on of pt's status upon admission and devise an individualized program for Caregiver Training New precaution - to improve, our physical therapists will perform initial evaluation of pt's status upon admission and devise an individualized program for Patient precaution education Poor balance - to improve, our physical therapists will perform initial evaluation of pt's status up on admission and devise an individualized program for Balance Training Poor endurance - to improve, our physical therapists will perform initial evaluation of pt's status upon admission and devise an individualized program for Endurance Training Weakness - to improve, our physical therapists will perform initial evaluation of pt's status upon a dmission and devise an individualized program for Aquatic Therapy, Neuromuscular Reeducation, and Str engthening Achieving independence - to improve, our physical therapists will perform initial evaluation of pt's status upon admission and devise an individualized program for Community Reintegration Activities - Occupational Therapy ADL deficits - to improve, our occupation therapists will perform initial evaluation of pt's status upon admission and devise an individualized program for Bathing, Bed mobility, Community Reintegratio n, Cooking, Dressing, Eating, Fine Motor Skills, Grooming, Homemaking, Kitchen Mobility, Laundry, Pat ient Education, Safety Awareness, Splinting - Positioning, Transfers(Toilet, Tub, Shower), and Wheel Chair Management Need for residential care facility manager - to improve, our occupation therapists will perform initial evaluation of pt's status upon admission and devise an individualized program for Caregiver Training Weakness - to improve, our occupation therapists will perform initial evaluation of pt's status upon admission and devise an individualized program for Aquatic Therapy, Balance, Endurance, UE ROM, and UE strengthening - Other See attached MAR (Medication Administration Record) - Anterior Hip Precaution No abduction No active extension No adduction across midline No external rotation No hip flexion >90 degrees No internal rotation - Diet - Liquid Texture Continue Regular - Tube Feed Continue N/A - Diet Type Continue Regular - Posterior Hip Precaution No adduction across midline No external rotation No hip flexion >90 degrees No internal rotation No wheel chair propulsion - Weight Bearing Precaution WBAT right LE - Skin care per protocol - Diet - Solid Texture Continue Regular - Shower allowing shower FUNCTIONAL STATUS: UPDATED AT WEEKLY TEAM CONFERENCE - Bladder Same accident frequency: 7-Ind - No accidents in the past 7 days - Bowel Same accident frequency: 7-Ind - No accidents in the past 7 days - Walking Same score based on distance walked: 0(N/A) - Wheelchair Same score based on distance traveled: 0(N/A) FUNCTIONAL STATUS: - Self-Care A. Eating Sushma B. Grooming Sushma C. Bathing Mary Kay D. Dressing - Upper sup E. Dressing - Lower modA F. Toileting modA - Sphincter Control G. Bladder control Sushma H. Bowel control Sushma - Transfers Control I. Bed/Chair/Wheelchair Mary Kay J. Toilet Mary Kay K. Tub/Shower modA - Locomotion L. Walk/Wheelchair (B) modA M. Stairs ADNO - Communication N. Comprehension (B) Ind O. Expression (B) Ind - Social Cognition P. Social Interaction Ind Q. Problem Solving Ind R. Memory Ind - Endurance Fair - Balance Fair - Safety Awareness Good QI SCORES: - Self-Care A. Eating 03-Partial/moderate assistance B. Oral hygiene 03-Partial/moderate assistance C. Toileting hygiene E. Shower/bathe self 02-Substantial/maximal assistance F. Upper body dressing 03-Partial/moderate assistance G. Lower body dressing 02-Substantial/maximal assistance H. Putting on/taking off footwear 88-Not attempted due to medical condition or safety concerns - Mobility A. Roll left and right 03-Partial/moderate assistance B. Sit to lying 03-Partial/moderate assistance C. Lying to sitting on side of bed 03-Partial/moderate assistance D. Sit to stand 02-Substantial/maximal assistance E. Chair/[id number] transfer 02-Substantial/maximal assistance F. Toilet transfer G. Car transfer 88-Not attempted due to medical condition or safety concerns I. Walk 10 feet 88-Not attempted due to medical condition or safety concerns J. Walk 50 feet with two turns 88-Not attempted due to medical condition or safety concerns K. Walk 150 feet 88-Not attempted due to medical condition or safety concerns L. Walking 10 feet on uneven surfaces 88-Not attempted due to medical condition or safety concerns M. 1 step (curb) 88-Not attempted due to medical condition or safety concerns N. 4 steps 88-Not attempted due to medical condition or safety concerns O. 12 steps 88-Not attempted due to medical condition or safety concerns P. Picking up object 88-Not attempted due to medical condition or safety concerns R. Wheel 50 feet with two turns 88-Not attempted due to medical condition or safety concerns S. Wheel 150 feet 88-Not attempted due to medical condition or safety concerns - Bladder and Bowel Bladder continence Bowel continence - Endurance Fair - Balance Poor - Safety Awareness Fair [facility]IC[facility]: Self-Care, Mobility, Endurance, Balance, and Safety Awareness SIGNATURE PANEL: (CDT)
[2020-04-21] MEDS: SMZ./TMP. 800/160 MG TABLET PO SCH (20:07)
[2020-04-21] MEDS: ATORVASTATIN 10 MG TAB PO SCH (20:08)
[2020-04-22] MEDS: TRAMADOL HCL 50 MG TAB PO PRN ×2 (00:04→20:16)
[2020-04-22] MEDS: ACETAMINOPHEN 325 MG TABLET PO PRN (02:45)
[2020-04-22] MEDS: ENOXAPARIN 40 MG/0.4 ML SQ SCH (07:06)
[2020-04-22] MEDS: PANTOPRAZOLE 40MG TABLET PO SCH (07:06)
[2020-04-22] MEDS ORDERED: TRELEGY ELLIPTA IH SCH (08:00)
[2020-04-22] MEDS ORDERED: DOXYCYCLINE 100 MG CAP PO SCH (08:00)
[2020-04-22] MEDS: FLUTICASONE 50MCG NASAL SPRAY NAS SCH (08:02)
[2020-04-22] MEDS: CRANBERRY FRUIT EXTRACT 200 MG CAP PO SCH ×2 (08:03→20:16)
[2020-04-22] MEDS: FE SULF/FA/VIT B COMP & C TAB PO SCH (08:04)
[2020-04-22] MEDS: SMZ./TMP. 800/160 MG TABLET PO SCH (08:04)
[2020-04-22] MEDS: GABAPENTIN 300 MG CAP PO SCH ×2 (08:04→20:17)
[2020-04-22] MEDS: MELOXICAM 7.5 MG TAB PO SCH (08:04)
[2020-04-22] MEDS: PROMOD 30 ML DOSE PO SCH ×2 (08:04→20:17)
[2020-04-22] MEDS: predniSONE 20 MG TAB PO SCH ×2 (08:04→20:17)
[2020-04-22] MEDS: FERROUS SULFATE 325 MG TAB PO SCH (08:04)
[2020-04-22] MEDS: LIDOCAINE 4% PATCH TOP SCH (10:21)
[2020-04-22] MEDS: DOXYCYCLINE 100 MG PO SCH (10:21)
[2020-04-22] MEDS: NITROFURAN MACRO 100 MG CAP PO SCH (16:36)
--- NOTE | 2020-04-22 17:05 | R.PN ---
PROGRESS NOTES ENCOUNTER DATE AND TIME: 04/22/2020 16:59 (CDT) NAME DESIREE CARVALHO DATE OF : 1950 DATE OF ADMISSION: 04/18/2020 10:47 (CDT) RIGHT FEMUR FRACTURECHIEF COMPLAINT: Right hip fracture. SUBJECTIVE: Pt denied any depression. Pt denied any Shortness of Breath. Ambulated 24' with contact guard assistance using a rolling walker. Self-propelled 750' with wheelcha ir and standby assistance. VITAL SIGNS Temperature: 97.6 F SBP/DBP: 121/48 Pulse: 60 Resp: 16 MEDICATION ALLERGIES: XANAX ZINC ENVIRONMENTAL ALLERGIES: - Substance Allergies None Known - Other Allergies None Known NURSING: - Shower allowing shower - Skin care per protocol PRECAUTIONS: - Anterior Hip Precaution No abduction No active extension No adduction across midline No external rotation No hip flexion >90 degrees No internal rotation - Posterior Hip Precaution No adduction across midline No external rotation No hip flexion >90 degrees No internal rotation No wheel chair propulsion - Weight Bearing Precaution WBAT left LE ACTIVITIES OOB only with supervision THERAPIES: - Dietary and Nutrition Adequate Nutrition. Nutritional Education. Nutritional Supplements. PHYSICAL EXAM - Gen Alert and awake Lying in bed No apparent distress Oriented to: person, time, and place - Skin No skin breakdown. Normacephalic - Eyes No abnormalities - ENMT No abnormalities - Neck No abnormalities No cervical adenopathy - CVS RRR - Chest No abnormalities - Resp Clear to auscultation - Abd Soft - GI Non distended Deferred - No abnormalities - Ext Right hip surgical site has good hemostasis. - MSK 4+/5 weakness in right lower extremity - Neuro 4/5 strength right lower extremity. - Psych No abnormalities ASSESSMENT: Pt. is a 70 yo Right-handed female of unknown race.On 04/06/2020 she was admitted to [facility] nd underwent emergency surgery for RIGHT FEMUR FRACTURE (Unilateral Hip Fracture) by DR. SULLIVAN.Pre -morbidly, Pt. was independent/mod-I in Communication, Safety Awareness, Social Cognition, and Transf ers Control; and she had good Endurance and Locomotion.Currently, she has deficits of Safety Awarenes s, Balance, Sphincter Control, Self-Care, and Endurance.Pt. is now referred to [facility] for acute in-patient rehabilitation in order to maximize patient's functional independenc e in activities of daily living, strength, ROM, and mobility.- Rehab Goal Patient has realistic goal of being discharged at assistance level 7-Ind to reside at Home with Fami ly/Relatives. MDM/PLAN: - Physical Therapy Decreased range of motion - to improve, our physical therapists will perform initial evaluation of p t's status upon admission and devise an individualized program for increasing patient's Range of Phillip on. Gait dysfunction - to improve, our physical therapists will perform initial evaluation of pt's statu s upon admission and devise an individualized program for Gait Training, and Wheel Chair mobility Need for home safety evaluation - to improve, our physical therapists will perform initial evaluatio n of pt's status upon admission and devise an individualized program for Home Evaluation Need in caregiver upon discharge - to improve, our physical therapists will perform initial evaluati on of pt's status upon admission and devise an individualized program for Caregiver Training New precaution - to improve, our physical therapists will perform initial evaluation of pt's status upon admission and devise an individualized program for Patient precaution education Poor balance - to improve, our physical therapists will perform initial evaluation of pt's status up on admission and devise an individualized program for Balance Training Poor endurance - to improve, our physical therapists will perform initial evaluation of pt's status upon admission and devise an individualized program for Endurance Training Weakness - to improve, our physical therapists will perform initial evaluation of pt's status upon a dmission and devise an individualized program for Aquatic Therapy, Neuromuscular Reeducation, and Str engthening Achieving independence - to improve, our physical therapists will perform initial evaluation of pt's status upon admission and devise an individualized program for Community Reintegration Activities - Occupational Therapy ADL deficits - to improve, our occupation therapists will perform initial evaluation of pt's status upon admission and devise an individualized program for Bathing, Bed mobility, Community Reintegratio n, Cooking, Dressing, Eating, Fine Motor Skills, Grooming, Homemaking, Kitchen Mobility, Laundry, Pat ient Education, Safety Awareness, Splinting - Positioning, Transfers(Toilet, Tub, Shower), and Wheel Chair Management Need for home care administrator - to improve, our occupation therapists will perform initial evaluation of pt's status upon admission and devise an individualized program for Caregiver Training Weakness - to improve, our occupation therapists will perform initial evaluation of pt's status upon admission and devise an individualized program for Aquatic Therapy, Balance, Endurance, UE ROM, and UE strengthening - Other See attached MAR (Medication Administration Record) - Anterior Hip Precaution No abduction No active extension No adduction across midline No external rotation No hip flexion >90 degrees No internal rotation - Diet - Liquid Texture Continue Regular - Tube Feed Continue N/A - Diet Type Continue Regular - Posterior Hip Precaution No adduction across midline No external rotation No hip flexion >90 degrees No internal rotation No wheel chair propulsion - Weight Bearing Precaution WBAT right LE - Skin care per protocol - Diet - Solid Texture Continue Regular - Shower allowing shower FUNCTIONAL STATUS: UPDATED AT WEEKLY TEAM CONFERENCE - Bladder Same accident frequency: 7-Ind - No accidents in the past 7 days - Bowel Same accident frequency: 7-Ind - No accidents in the past 7 days - Walking Same score based on distance walked: 0(N/A) - Wheelchair Same score based on distance traveled: 0(N/A) FUNCTIONAL STATUS: - Self-Care A. Eating Sushma B. Grooming Sushma C. Bathing Mary Kay D. Dressing - Upper sup E. Dressing - Lower modA F. Toileting modA - Sphincter Control G. Bladder control Sushma H. Bowel control Sushma - Transfers Control I. Bed/Chair/Wheelchair Mary Kay J. Toilet Mary Kay K. Tub/Shower modA - Locomotion L. Walk/Wheelchair (B) modA M. Stairs ADNO - Communication N. Comprehension (B) Ind O. Expression (B) Ind - Social Cognition P. Social Interaction Ind Q. Problem Solving Ind R. Memory Ind - Endurance Fair - Balance Fair - Safety Awareness Good QI SCORES: - Self-Care A. Eating 03-Partial/moderate assistance B. Oral hygiene 03-Partial/moderate assistance C. Toileting hygiene E. Shower/bathe self 02-Substantial/maximal assistance F. Upper body dressing 03-Partial/moderate assistance G. Lower body dressing 02-Substantial/maximal assistance H. Putting on/taking off footwear 88-Not attempted due to medical condition or safety concerns - Mobility A. Roll left and right 03-Partial/moderate assistance B. Sit to lying 03-Partial/moderate assistance C. Lying to sitting on side of bed 03-Partial/moderate assistance D. Sit to stand 02-Substantial/maximal assistance E. Chair/[id number] transfer 02-Substantial/maximal assistance F. Toilet transfer G. Car transfer 88-Not attempted due to medical condition or safety concerns I. Walk 10 feet 88-Not attempted due to medical condition or safety concerns J. Walk 50 feet with two turns 88-Not attempted due to medical condition or safety concerns K. Walk 150 feet 88-Not attempted due to medical condition or safety concerns L. Walking 10 feet on uneven surfaces 88-Not attempted due to medical condition or safety concerns M. 1 step (curb) 88-Not attempted due to medical condition or safety concerns N. 4 steps 88-Not attempted due to medical condition or safety concerns O. 12 steps 88-Not attempted due to medical condition or safety concerns P. Picking up object 88-Not attempted due to medical condition or safety concerns R. Wheel 50 feet with two turns 88-Not attempted due to medical condition or safety concerns S. Wheel 150 feet 88-Not attempted due to medical condition or safety concerns - Bladder and Bowel Bladder continence Bowel continence - Endurance Fair - Balance Poor - Safety Awareness Fair [facility]IC[facility]: Self-Care, Mobility, Endurance, Balance, and Safety Awareness SIGNATURE PANEL: (CDT)
[2020-04-22] MEDS: ATORVASTATIN 10 MG TAB PO SCH (20:17)
[2020-04-22] MEDS: TRAZODONE 50 MG TABLET PO PRN (20:17)
[2020-04-23] MEDS: TRAMADOL HCL 50 MG TAB PO PRN ×2 (00:54→19:56)
[2020-04-23] MEDS: PANTOPRAZOLE 40MG TABLET PO SCH (07:08)
[2020-04-23] MEDS: ENOXAPARIN 40 MG/0.4 ML SQ SCH (07:08)
[2020-04-23] MEDS: FLUTICASONE 50MCG NASAL SPRAY NAS SCH (07:09)
[2020-04-23] MEDS: LIDOCAINE 4% PATCH TOP SCH (07:09)
[2020-04-23] MEDS: NITROFURAN MACRO 100 MG CAP PO SCH ×2 (08:14→16:43)
[2020-04-23] MEDS: GABAPENTIN 300 MG CAP PO SCH ×2 (08:14→19:57)
[2020-04-23] MEDS: FERROUS SULFATE 325 MG TAB PO SCH (08:14)
[2020-04-23] MEDS: CRANBERRY FRUIT EXTRACT 200 MG CAP PO SCH ×2 (08:14→19:56)
[2020-04-23] MEDS: MELOXICAM 7.5 MG TAB PO SCH (08:14)
[2020-04-23] MEDS: FE SULF/FA/VIT B COMP & C TAB PO SCH (08:14)
[2020-04-23] MEDS: PROMOD 30 ML DOSE PO SCH ×2 (08:14→19:57)
[2020-04-23] MEDS: DOXYCYCLINE 100 MG PO SCH (08:15)
[2020-04-23] MEDS: predniSONE 20 MG TAB PO SCH ×2 (08:15→19:57)
--- NOTE | 2020-04-23 18:52 | R.PN ---
PROGRESS NOTES ENCOUNTER DATE AND TIME: 04/23/2020 18:50 (CDT) NAME DESIREE CARVALHO DATE OF : 1950 DATE OF ADMISSION: 04/18/2020 10:47 (CDT) RIGHT FEMUR FRACTURECHIEF COMPLAINT: Right hip fracture. SUBJECTIVE: Pt denied any depression. Pt denied any Shortness of Breath. Ambulated 30' with contact guard assistance using a rolling walker. Self-propelled 750' with wheelcha ir and standby assistance. VITAL SIGNS Temperature: 97.2 F SBP/DBP: 117/58 Pulse: 51 Resp: 16 MEDICATION ALLERGIES: XANAX ZINC ENVIRONMENTAL ALLERGIES: - Substance Allergies None Known - Other Allergies None Known NURSING: - Shower allowing shower - Skin care per protocol PRECAUTIONS: - Anterior Hip Precaution No abduction No active extension No adduction across midline No external rotation No hip flexion >90 degrees No internal rotation - Posterior Hip Precaution No adduction across midline No external rotation No hip flexion >90 degrees No internal rotation No wheel chair propulsion - Weight Bearing Precaution WBAT left LE ACTIVITIES OOB only with supervision THERAPIES: - Dietary and Nutrition Adequate Nutrition. Nutritional Education. Nutritional Supplements. PHYSICAL EXAM - Gen Alert and awake Lying in bed No apparent distress Oriented to: person, time, and place - Skin No skin breakdown. Normacephalic - Eyes No abnormalities - ENMT No abnormalities - Neck No abnormalities No cervical adenopathy - CVS RRR - Chest No abnormalities - Resp Clear to auscultation - Abd Soft - GI Non distended Deferred - No abnormalities - Ext Right hip surgical site has good hemostasis. - MSK 4+/5 weakness in right lower extremity - Neuro 4/5 strength right lower extremity. - Psych No abnormalities ASSESSMENT: Pt. is a 70 yo Right-handed female of unknown race.On 04/06/2020 she was admitted to [facility] nd underwent emergency surgery for RIGHT FEMUR FRACTURE (Unilateral Hip Fracture) by DR. SULLIVAN.Pre -morbidly, Pt. was independent/mod-I in Communication, Safety Awareness, Social Cognition, and Transf ers Control; and she had good Endurance and Locomotion.Currently, she has deficits of Safety Awarenes s, Balance, Sphincter Control, Self-Care, and Endurance.Pt. is now referred to [facility] for acute in-patient rehabilitation in order to maximize patient's functional independenc e in activities of daily living, strength, ROM, and mobility.- Rehab Goal Patient has realistic goal of being discharged at assistance level 7-Ind to reside at Home with Fami ly/Relatives. MDM/PLAN: - Physical Therapy Decreased range of motion - to improve, our physical therapists will perform initial evaluation of p t's status upon admission and devise an individualized program for increasing patient's Range of [place] on. Gait dysfunction - to improve, our physical therapists will perform initial evaluation of pt's statu s upon admission and devise an individualized program for Gait Training, and Wheel Chair mobility Need for home safety evaluation - to improve, our physical therapists will perform initial evaluatio n of pt's status upon admission and devise an individualized program for Home Evaluation Need in caregiver upon discharge - to improve, our physical therapists will perform initial evaluati on of pt's status upon admission and devise an individualized program for Caregiver Training New precaution - to improve, our physical therapists will perform initial evaluation of pt's status upon admission and devise an individualized program for Patient precaution education Poor balance - to improve, our physical therapists will perform initial evaluation of pt's status up on admission and devise an individualized program for Balance Training Poor endurance - to improve, our physical therapists will perform initial evaluation of pt's status upon admission and devise an individualized program for Endurance Training Weakness - to improve, our physical therapists will perform initial evaluation of pt's status upon a dmission and devise an individualized program for Aquatic Therapy, Neuromuscular Reeducation, and Str engthening Achieving independence - to improve, our physical therapists will perform initial evaluation of pt's status upon admission and devise an individualized program for Community Reintegration Activities - Occupational Therapy ADL deficits - to improve, our occupation therapists will perform initial evaluation of pt's status upon admission and devise an individualized program for Bathing, Bed mobility, Community Reintegratio n, Cooking, Dressing, Eating, Fine Motor Skills, Grooming, Homemaking, Kitchen Mobility, Laundry, Pat ient Education, Safety Awareness, Splinting - Positioning, Transfers(Toilet, Tub, Shower), and Wheel Chair Management Need for care professional - to improve, our occupation therapists will perform initial evaluation of pt's status upon admission and devise an individualized program for Caregiver Training Weakness - to improve, our occupation therapists will perform initial evaluation of pt's status upon admission and devise an individualized program for Aquatic Therapy, Balance, Endurance, UE ROM, and UE strengthening - Other See attached MAR (Medication Administration Record) - Anterior Hip Precaution No abduction No active extension No adduction across midline No external rotation No hip flexion >90 degrees No internal rotation - Diet - Liquid Texture Continue Regular - Tube Feed Continue N/A - Diet Type Continue Regular - Posterior Hip Precaution No adduction across midline No external rotation No hip flexion >90 degrees No internal rotation No wheel chair propulsion - Weight Bearing Precaution WBAT right LE - Skin care per protocol - Diet - Solid Texture Continue Regular - Shower allowing shower FUNCTIONAL STATUS: UPDATED AT WEEKLY TEAM CONFERENCE - Bladder Same accident frequency: 7-Ind - No accidents in the past 7 days - Bowel Same accident frequency: 7-Ind - No accidents in the past 7 days - Walking Same score based on distance walked: 0(N/A) - Wheelchair Same score based on distance traveled: 0(N/A) FUNCTIONAL STATUS: - Self-Care A. Eating Sushma B. Grooming Sushma C. Bathing Mary Kay D. Dressing - Upper sup E. Dressing - Lower modA F. Toileting modA - Sphincter Control G. Bladder control Sushma H. Bowel control Sushma - Transfers Control I. Bed/Chair/Wheelchair Mary Kay J. Toilet Mary Kay K. Tub/Shower modA - Locomotion L. Walk/Wheelchair (B) modA M. Stairs ADNO - Communication N. Comprehension (B) Ind O. Expression (B) Ind - Social Cognition P. Social Interaction Ind Q. Problem Solving Ind R. Memory Ind - Endurance Fair - Balance Fair - Safety Awareness Good QI SCORES: - Self-Care A. Eating 03-Partial/moderate assistance B. Oral hygiene 03-Partial/moderate assistance C. Toileting hygiene E. Shower/bathe self 02-Substantial/maximal assistance F. Upper body dressing 03-Partial/moderate assistance G. Lower body dressing 02-Substantial/maximal assistance H. Putting on/taking off footwear 88-Not attempted due to medical condition or safety concerns - Mobility A. Roll left and right 03-Partial/moderate assistance B. Sit to lying 03-Partial/moderate assistance C. Lying to sitting on side of bed 03-Partial/moderate assistance D. Sit to stand 02-Substantial/maximal assistance E. Chair/[id number] transfer 02-Substantial/maximal assistance F. Toilet transfer G. Car transfer 88-Not attempted due to medical condition or safety concerns I. Walk 10 feet 88-Not attempted due to medical condition or safety concerns J. Walk 50 feet with two turns 88-Not attempted due to medical condition or safety concerns K. Walk 150 feet 88-Not attempted due to medical condition or safety concerns L. Walking 10 feet on uneven surfaces 88-Not attempted due to medical condition or safety concerns M. 1 step (curb) 88-Not attempted due to medical condition or safety concerns N. 4 steps 88-Not attempted due to medical condition or safety concerns O. 12 steps 88-Not attempted due to medical condition or safety concerns P. Picking up object 88-Not attempted due to medical condition or safety concerns R. Wheel 50 feet with two turns 88-Not attempted due to medical condition or safety concerns S. Wheel 150 feet 88-Not attempted due to medical condition or safety concerns - Bladder and Bowel Bladder continence Bowel continence - Endurance Fair - Balance Poor - Safety Awareness Fair [facility] DEFICITS: Self-Care, Mobility, Endurance, Balance, and Safety Awareness SIGNATURE PANEL: (CDT)
[2020-04-23] MEDS: ATORVASTATIN 10 MG TAB PO SCH (19:56)
[2020-04-23] MEDS: TRAZODONE 50 MG TABLET PO PRN (19:56)
[2020-04-24] MEDS: GABAPENTIN 300 MG CAP PO SCH ×2 (08:22→20:25)
[2020-04-24] MEDS: MELOXICAM 7.5 MG TAB PO SCH (08:22)
[2020-04-24] MEDS: NITROFURAN MACRO 100 MG CAP PO SCH ×2 (08:22→16:29)
[2020-04-24] MEDS: FERROUS SULFATE 325 MG TAB PO SCH (08:22)
[2020-04-24] MEDS: predniSONE 20 MG TAB PO SCH ×2 (08:22→20:26)
[2020-04-24] MEDS: PANTOPRAZOLE 40MG TABLET PO SCH (08:22)
[2020-04-24] MEDS: FE SULF/FA/VIT B COMP & C TAB PO SCH (08:22)
[2020-04-24] MEDS: DRISDOL (VITAMIN D=ERGOCALCIFEROL) 50000 UNIT CAP PO SCH (08:22)
[2020-04-24] MEDS: CRANBERRY FRUIT EXTRACT 200 MG CAP PO SCH ×2 (08:23→20:25)
[2020-04-24] MEDS: LIDOCAINE 4% PATCH TOP SCH (08:23)
[2020-04-24] MEDS: ENOXAPARIN 40 MG/0.4 ML SQ SCH (08:23)
[2020-04-24] MEDS: FLUTICASONE 50MCG NASAL SPRAY NAS SCH (08:23)
[2020-04-24] MEDS: DOXYCYCLINE 100 MG PO SCH (08:24)
[2020-04-24] MEDS: PROMOD 30 ML DOSE PO SCH ×2 (08:24→20:26)
--- NOTE | 2020-04-24 19:17 | R.PN ---
PROGRESS NOTES ENCOUNTER DATE AND TIME: 04/24/2020 19:14 (CDT) NAME DESIREE CARVALHO DATE OF : 1950 DATE OF ADMISSION: 04/18/2020 10:47 (CDT) RIGHT FEMUR FRACTURECHIEF COMPLAINT: Right hip fracture. SUBJECTIVE: Pt denied any depression. Pt denied any Shortness of Breath. Ambulated 22' with contact guard assistance using a rolling walker. Self-propelled 500' with wheelch air and independence. VITAL SIGNS Temperature: 97.1 F SBP/DBP: 143/64 Pulse: 60 Resp: 16 MEDICATION ALLERGIES: XANAX ZINC ENVIRONMENTAL ALLERGIES: - Substance Allergies None Known - Other Allergies None Known NURSING: - Shower allowing shower - Skin care per protocol PRECAUTIONS: - Anterior Hip Precaution No abduction No active extension No adduction across midline No external rotation No hip flexion >90 degrees No internal rotation - Posterior Hip Precaution No adduction across midline No external rotation No hip flexion >90 degrees No internal rotation No wheel chair propulsion - Weight Bearing Precaution WBAT left LE ACTIVITIES OOB only with supervision THERAPIES: - Dietary and Nutrition Adequate Nutrition. Nutritional Education. Nutritional Supplements. PHYSICAL EXAM - Gen Alert and awake Lying in bed No apparent distress Oriented to: person, time, and place - Skin No skin breakdown. Normacephalic - Eyes No abnormalities - ENMT No abnormalities - Neck No abnormalities No cervical adenopathy - CVS RRR - Chest No abnormalities - Resp Clear to auscultation - Abd Soft - GI Non distended Deferred - No abnormalities - Ext Right hip surgical site has good hemostasis. - MSK 4+/5 weakness in right lower extremity - Neuro 4/5 strength right lower extremity. - Psych No abnormalities ASSESSMENT: Pt. is a 70 yo Right-handed female of unknown race.On 04/06/2020 she was admitted to [facility] nd underwent emergency surgery for RIGHT FEMUR FRACTURE (Unilateral Hip Fracture) by DR. SULLIVAN.Pre -morbidly, Pt. was independent/mod-I in Communication, Safety Awareness, Social Cognition, and Transf ers Control; and she had good Endurance and Locomotion.Currently, she has deficits of Safety Awarenes s, Balance, Sphincter Control, Self-Care, and Endurance.Pt. is now referred to [facility] for acute in-patient rehabilitation in order to maximize patient's functional independenc e in activities of daily living, strength, ROM, and mobility.- Rehab Goal Patient has realistic goal of being discharged at assistance level 7-Ind to reside at Home with Fami ly/Relatives. MDM/PLAN: - Physical Therapy Decreased range of motion - to improve, our physical therapists will perform initial evaluation of p t's status upon admission and devise an individualized program for increasing patient's Range of Phillip on. Gait dysfunction - to improve, our physical therapists will perform initial evaluation of pt's statu s upon admission and devise an individualized program for Gait Training, and Wheel Chair mobility Need for home safety evaluation - to improve, our physical therapists will perform initial evaluatio n of pt's status upon admission and devise an individualized program for Home Evaluation Need in caregiver upon discharge - to improve, our physical therapists will perform initial evaluati on of pt's status upon admission and devise an individualized program for Caregiver Training New precaution - to improve, our physical therapists will perform initial evaluation of pt's status upon admission and devise an individualized program for Patient precaution education Poor balance - to improve, our physical therapists will perform initial evaluation of pt's status up on admission and devise an individualized program for Balance Training Poor endurance - to improve, our physical therapists will perform initial evaluation of pt's status upon admission and devise an individualized program for Endurance Training Weakness - to improve, our physical therapists will perform initial evaluation of pt's status upon a dmission and devise an individualized program for Aquatic Therapy, Neuromuscular Reeducation, and Str engthening Achieving independence - to improve, our physical therapists will perform initial evaluation of pt's status upon admission and devise an individualized program for Community Reintegration Activities - Occupational Therapy ADL deficits - to improve, our occupation therapists will perform initial evaluation of pt's status upon admission and devise an individualized program for Bathing, Bed mobility, Community Reintegratio n, Cooking, Dressing, Eating, Fine Motor Skills, Grooming, Homemaking, Kitchen Mobility, Laundry, Pat ient Education, Safety Awareness, Splinting - Positioning, Transfers(Toilet, Tub, Shower), and Wheel Chair Management Need for career development facilitator - to improve, our occupation therapists will perform initial evaluation of pt's status upon admission and devise an individualized program for Caregiver Training Weakness - to improve, our occupation therapists will perform initial evaluation of pt's status upon admission and devise an individualized program for Aquatic Therapy, Balance, Endurance, UE ROM, and UE strengthening - Other See attached MAR (Medication Administration Record) - Anterior Hip Precaution No abduction No active extension No adduction across midline No external rotation No hip flexion >90 degrees No internal rotation - Diet - Liquid Texture Continue Regular - Tube Feed Continue N/A - Diet Type Continue Regular - Posterior Hip Precaution No adduction across midline No external rotation No hip flexion >90 degrees No internal rotation No wheel chair propulsion - Weight Bearing Precaution WBAT right LE - Skin care per protocol - Diet - Solid Texture Continue Regular - Shower allowing shower FUNCTIONAL STATUS: UPDATED AT WEEKLY TEAM CONFERENCE - Bladder Same accident frequency: 7-Ind - No accidents in the past 7 days - Bowel Same accident frequency: 7-Ind - No accidents in the past 7 days - Walking Same score based on distance walked: 0(N/A) - Wheelchair Same score based on distance traveled: 0(N/A) FUNCTIONAL STATUS: - Self-Care A. Eating Sushma B. Grooming Sushma C. Bathing Mary Kay D. Dressing - Upper sup E. Dressing - Lower modA F. Toileting modA - Sphincter Control G. Bladder control Sushma H. Bowel control Sushma - Transfers Control I. Bed/Chair/Wheelchair Mary Kay J. Toilet Mary Kay K. Tub/Shower modA - Locomotion L. Walk/Wheelchair (B) modA M. Stairs ADNO - Communication N. Comprehension (B) Ind O. Expression (B) Ind - Social Cognition P. Social Interaction Ind Q. Problem Solving Ind R. Memory Ind - Endurance Fair - Balance Fair - Safety Awareness Good QI SCORES: - Self-Care A. Eating 03-Partial/moderate assistance B. Oral hygiene 03-Partial/moderate assistance C. Toileting hygiene E. Shower/bathe self 02-Substantial/maximal assistance F. Upper body dressing 03-Partial/moderate assistance G. Lower body dressing 02-Substantial/maximal assistance H. Putting on/taking off footwear 88-Not attempted due to medical condition or safety concerns - Mobility A. Roll left and right 03-Partial/moderate assistance B. Sit to lying 03-Partial/moderate assistance C. Lying to sitting on side of bed 03-Partial/moderate assistance D. Sit to stand 02-Substantial/maximal assistance E. Chair/[id number] transfer 02-Substantial/maximal assistance F. Toilet transfer G. Car transfer 88-Not attempted due to medical condition or safety concerns I. Walk 10 feet 88-Not attempted due to medical condition or safety concerns J. Walk 50 feet with two turns 88-Not attempted due to medical condition or safety concerns K. Walk 150 feet 88-Not attempted due to medical condition or safety concerns L. Walking 10 feet on uneven surfaces 88-Not attempted due to medical condition or safety concerns M. 1 step (curb) 88-Not attempted due to medical condition or safety concerns N. 4 steps 88-Not attempted due to medical condition or safety concerns O. 12 steps 88-Not attempted due to medical condition or safety concerns P. Picking up object 88-Not attempted due to medical condition or safety concerns R. Wheel 50 feet with two turns 88-Not attempted due to medical condition or safety concerns S. Wheel 150 feet 88-Not attempted due to medical condition or safety concerns - Bladder and Bowel Bladder continence Bowel continence - Endurance Fair - Balance Poor - Safety Awareness Fair CURRENT [facility]. DEFICITS: Self-Care, Mobility, Endurance, Balance, and Safety Awareness SIGNATURE PANEL: (CDT)
[2020-04-24] MEDS: TRAMADOL HCL 50 MG TAB PO PRN (20:26)
[2020-04-24] MEDS: ATORVASTATIN 10 MG TAB PO SCH (20:26)
[2020-04-25 06:57] LABS: Absolute Lymphocytes (CBC) 2.1 K/uL (0.7-4.9); Basophils % 0.8 % (0-1.3); Hematocrit 32.2 % (36.0-45.0); Lymphocytes % 14.5 % (15.3-44.8); MPV 10.3 fL (7.6-11.3); RBC Red Blood Cell Count 3.53 M/uL (3.86-4.86)
[2020-04-25 07:11] LABS: Albumin 3.1 g/dL (3.4-5.0); Potassium 4.7 mmol/L (3.5-5.1); Prealbumin 30.4 mg/dL (20-40)
--- NOTE | 2020-04-25 08:19 | FAST ---
OT QI REPORT FORM ENCOUNTER DATE AND TIME: 04/24/2020 08:00 (CDT) NAME DESIREE CARVALHO DATE OF : 1950 DATE OF ADMISSION: 04/18/2020 10:47 (CDT) PHONE: AGE: 70 N# [id number] GENDER: Female ENCOUNTER PHYSICIAN: Dr. Moi Barry M.D. ADMISSION DIAGNOSIS: - Orthopaedic Disorders 08 - Unilateral Hip Fracture (08.11) RIGHT FEMUR FRACTURE. EATING: Not assessed/no information CODE: - ORAL HYGIENE: ORAL HYGIENE - STEP 1: Does the patient complete the activity by him/herself with no assistance (physical, verbal/nonverbal cueing, setup/clean-up)? Yes. 1. [id number] ADMISSION PERFORMANCE: Independent CODE: 06 TOILETING HYGIENE: Not assessed/no information CODE: - BATHING: SHOWER/BATHE SELF - STEP 1: Does the patient complete the activity by him/herself with no assistance (physical, verbal/nonverbal cueing, setup/clean-up)? No. SHOWER/BATHE SELF - STEP 2: Does the patient need only setup/clean-up assistance from one helper? No. SHOWER/BATHE SELF - STEP 3: Does the patient need only verbal/nonverbal cueing or touching/steadying/contact guard assistance fro m one helper? Yes. 1. [id number] ADMISSION PERFORMANCE: Supervision or touching assistance CODE: 04 DRESSING - UPPER BODY: DRESSING - UPPER BODY - STEP 1: Does the patient complete the activity by him/herself with no assistance (physical, verbal/nonverbal cueing, setup/clean-up)? No. DRESSING - UPPER BODY - STEP 2: Does the patient need only setup/clean-up assistance from one helper? Yes. 1. [id number] ADMISSION PERFORMANCE: Setup or clean-up assistance CODE: 05 DRESSING - LOWER BODY: DRESSING - LOWER BODY - STEP 1: Does the patient complete the activity by him/herself with no assistance (physical, verbal/nonverbal cueing, setup/clean-up)? No. DRESSING - LOWER BODY - STEP 2: Does the patient need only setup/clean-up assistance from one helper? No. DRESSING - LOWER BODY - STEP 3: Does the patient need only verbal/nonverbal cueing or touching/steadying/contact guard assistance fro m one helper? Yes. 1. [id number] ADMISSION PERFORMANCE: Supervision or touching assistance CODE: 04 PUTTING ON/TAKING OFF FOOTWEAR: FOOTWEAR - STEP 1: Does the patient complete the activity by him/herself with no assistance (physical, verbal/nonverbal cueing, setup/clean-up)? No. FOOTWEAR - STEP 2: Does the patient need only setup/clean-up assistance from one helper? No. FOOTWEAR - STEP 3: Does the patient need only verbal/nonverbal cueing or touching/steadying/contact guard assistance fro m one helper? Yes. 1. [id number] ADMISSION PERFORMANCE: Supervision or touching assistance CODE: 04 DOES THE PATIENT USE A WHEELCHAIR/SCOOTER? CODE: EXPR INDICATE THE TYPE OF WHEELCHAIR/SCOOTER USED: CODE: EXPR INDICATE THE TYPE OF WHEELCHAIR/SCOOTER USED: CODE: EXPR BLADDER AND BOWEL: CODE: EXPR CODE: EXPR SIGNATURE PANEL: The following modified sections: 1. [id number] Admission Performance, 1. [id number] Admission Performance, 1. [id number] Admission Performance, 1. [id number] Admission Performance, 1. [id number] Admission Performance were [electronically] signed by ISAMAR Rubi on WedApr 25 2020 08:18:04 T-0500 (Central Daylight Time)
[2020-04-25] MEDS: MELOXICAM 7.5 MG TAB PO SCH (08:24)
[2020-04-25] MEDS: FE SULF/FA/VIT B COMP & C TAB PO SCH (08:24)
[2020-04-25] MEDS: PANTOPRAZOLE 40MG TABLET PO SCH (08:24)
[2020-04-25] MEDS: GABAPENTIN 300 MG CAP PO SCH ×2 (08:24→19:44)
[2020-04-25] MEDS: FERROUS SULFATE 325 MG TAB PO SCH (08:24)
[2020-04-25] MEDS: ENOXAPARIN 40 MG/0.4 ML SQ SCH (08:24)
[2020-04-25] MEDS: NITROFURAN MACRO 100 MG CAP PO SCH ×2 (08:24→17:14)
[2020-04-25] MEDS: CRANBERRY FRUIT EXTRACT 200 MG CAP PO SCH ×2 (08:25→19:44)
[2020-04-25] MEDS: DOXYCYCLINE 100 MG PO SCH (08:25)
[2020-04-25] MEDS: predniSONE 20 MG TAB PO SCH ×2 (08:25→19:44)
[2020-04-25] MEDS: FLUTICASONE 50MCG NASAL SPRAY NAS SCH (08:25)
[2020-04-25] MEDS: LIDOCAINE 4% PATCH TOP SCH (08:25)
[2020-04-25] MEDS: PROMOD 30 ML DOSE PO SCH ×2 (08:26→19:44)
--- NOTE | 2020-04-25 17:45 | R.PN ---
PROGRESS NOTES ENCOUNTER DATE AND TIME: 04/25/2020 17:41 (CDT) NAME DESIREE CARVALHO DATE OF : 1950 DATE OF ADMISSION: 04/18/2020 10:47 (CDT) RIGHT FEMUR FRACTURECHIEF COMPLAINT: Right hip fracture. SUBJECTIVE: Pt denied any depression. Pt denied any Shortness of Breath. Ambulated 40' with standby assistance using a rolling walker. Self-propelled 750' with wheelchair an d independence. WBC 14.2, Hgb 10.5, prealbumin 30.4. VITAL SIGNS Temperature: 98.0 F SBP/DBP: 125/74 Pulse: 60 Resp: 16 MEDICATION ALLERGIES: XANAX ZINC ENVIRONMENTAL ALLERGIES: - Substance Allergies None Known - Other Allergies None Known NURSING: - Shower allowing shower - Skin care per protocol PRECAUTIONS: - Anterior Hip Precaution No abduction No active extension No adduction across midline No external rotation No hip flexion >90 degrees No internal rotation - Posterior Hip Precaution No adduction across midline No external rotation No hip flexion >90 degrees No internal rotation No wheel chair propulsion - Weight Bearing Precaution WBAT left LE ACTIVITIES OOB only with supervision THERAPIES: - Dietary and Nutrition Adequate Nutrition. Nutritional Education. Nutritional Supplements. PHYSICAL EXAM - Gen Alert and awake Lying in bed No apparent distress Oriented to: person, time, and place - Skin No skin breakdown. Normacephalic - Eyes No abnormalities - ENMT No abnormalities - Neck No abnormalities No cervical adenopathy - CVS RRR - Chest No abnormalities - Resp Clear to auscultation - Abd Soft - GI Non distended Deferred - No abnormalities - Ext Right hip surgical site has good hemostasis. - MSK 4+/5 weakness in right lower extremity - Neuro 4/5 strength right lower extremity. - Psych No abnormalities ASSESSMENT: Pt. is a 70 yo Right-handed female of unknown race.On 04/06/2020 she was admitted to [facility] nd underwent emergency surgery for RIGHT FEMUR FRACTURE (Unilateral Hip Fracture) by DR. SULLIVAN.Pre -morbidly, Pt. was independent/mod-I in Communication, Safety Awareness, Social Cognition, and Transf ers Control; and she had good Endurance and Locomotion.Currently, she has deficits of Safety Awarenes s, Balance, Sphincter Control, Self-Care, and Endurance.Pt. is now referred to [facility] for acute in-patient rehabilitation in order to maximize patient's functional independenc e in activities of daily living, strength, ROM, and mobility.- Rehab Goal Patient has realistic goal of being discharged at assistance level 7-Ind to reside at Home with Fami ly/Relatives. MDM/PLAN: - Physical Therapy Decreased range of motion - to improve, our physical therapists will perform initial evaluation of p t's status upon admission and devise an individualized program for increasing patient's Range of Phillip on. Gait dysfunction - to improve, our physical therapists will perform initial evaluation of pt's statu s upon admission and devise an individualized program for Gait Training, and Wheel Chair mobility Need for home safety evaluation - to improve, our physical therapists will perform initial evaluatio n of pt's status upon admission and devise an individualized program for Home Evaluation Need in caregiver upon discharge - to improve, our physical therapists will perform initial evaluati on of pt's status upon admission and devise an individualized program for Caregiver Training New precaution - to improve, our physical therapists will perform initial evaluation of pt's status upon admission and devise an individualized program for Patient precaution education Poor balance - to improve, our physical therapists will perform initial evaluation of pt's status up on admission and devise an individualized program for Balance Training Poor endurance - to improve, our physical therapists will perform initial evaluation of pt's status upon admission and devise an individualized program for Endurance Training Weakness - to improve, our physical therapists will perform initial evaluation of pt's status upon a dmission and devise an individualized program for Aquatic Therapy, Neuromuscular Reeducation, and Str engthening Achieving independence - to improve, our physical therapists will perform initial evaluation of pt's status upon admission and devise an individualized program for Community Reintegration Activities - Occupational Therapy ADL deficits - to improve, our occupation therapists will perform initial evaluation of pt's status upon admission and devise an individualized program for Bathing, Bed mobility, Community Reintegratio n, Cooking, Dressing, Eating, Fine Motor Skills, Grooming, Homemaking, Kitchen Mobility, Laundry, Pat ient Education, Safety Awareness, Splinting - Positioning, Transfers(Toilet, Tub, Shower), and Wheel Chair Management Need for respiratory care technician - to improve, our occupation therapists will perform initial evaluation of pt's status upon admission and devise an individualized program for Caregiver Training Weakness - to improve, our occupation therapists will perform initial evaluation of pt's status upon admission and devise an individualized program for Aquatic Therapy, Balance, Endurance, UE ROM, and UE strengthening - Other See attached MAR (Medication Administration Record) - Anterior Hip Precaution No abduction No active extension No adduction across midline No external rotation No hip flexion >90 degrees No internal rotation - Diet - Liquid Texture Continue Regular - Tube Feed Continue N/A - Diet Type Continue Regular - Posterior Hip Precaution No adduction across midline No external rotation No hip flexion >90 degrees No internal rotation No wheel chair propulsion - Weight Bearing Precaution WBAT right LE - Skin care per protocol - Diet - Solid Texture Continue Regular - Shower allowing shower FUNCTIONAL STATUS: UPDATED AT WEEKLY TEAM CONFERENCE - Bladder Same accident frequency: 7-Ind - No accidents in the past 7 days - Bowel Same accident frequency: 7-Ind - No accidents in the past 7 days - Walking Same score based on distance walked: 0(N/A) - Wheelchair Same score based on distance traveled: 0(N/A) FUNCTIONAL STATUS: - Self-Care A. Eating Sushma B. Grooming Sushma C. Bathing Mary Kay D. Dressing - Upper sup E. Dressing - Lower modA F. Toileting modA - Sphincter Control G. Bladder control Sushma H. Bowel control Sushma - Transfers Control I. Bed/Chair/Wheelchair Mary Kay J. Toilet Mary Kay K. Tub/Shower modA - Locomotion L. Walk/Wheelchair (B) modA M. Stairs ADNO - Communication N. Comprehension (B) Ind O. Expression (B) Ind - Social Cognition P. Social Interaction Ind Q. Problem Solving Ind R. Memory Ind - Endurance Fair - Balance Fair - Safety Awareness Good QI SCORES: - Self-Care A. Eating 03-Partial/moderate assistance B. Oral hygiene 03-Partial/moderate assistance C. Toileting hygiene E. Shower/bathe self 02-Substantial/maximal assistance F. Upper body dressing 03-Partial/moderate assistance G. Lower body dressing 02-Substantial/maximal assistance H. Putting on/taking off footwear 88-Not attempted due to medical condition or safety concerns - Mobility A. Roll left and right 03-Partial/moderate assistance B. Sit to lying 03-Partial/moderate assistance C. Lying to sitting on side of bed 03-Partial/moderate assistance D. Sit to stand 02-Substantial/maximal assistance E. Chair/[id number] transfer 02-Substantial/maximal assistance F. Toilet transfer G. Car transfer 88-Not attempted due to medical condition or safety concerns I. Walk 10 feet 88-Not attempted due to medical condition or safety concerns J. Walk 50 feet with two turns 88-Not attempted due to medical condition or safety concerns K. Walk 150 feet 88-Not attempted due to medical condition or safety concerns L. Walking 10 feet on uneven surfaces 88-Not attempted due to medical condition or safety concerns M. 1 step (curb) 88-Not attempted due to medical condition or safety concerns N. 4 steps 88-Not attempted due to medical condition or safety concerns O. 12 steps 88-Not attempted due to medical condition or safety concerns P. Picking up object 88-Not attempted due to medical condition or safety concerns R. Wheel 50 feet with two turns 88-Not attempted due to medical condition or safety concerns S. Wheel 150 feet 88-Not attempted due to medical condition or safety concerns - Bladder and Bowel Bladder continence Bowel continence - Endurance Fair - Balance Poor - Safety Awareness Fair CURRENT [facility]. DEFICITS: Self-Care, Mobility, Endurance, Balance, and Safety Awareness SIGNATURE PANEL: (CDT)
[2020-04-25] MEDS: TRAMADOL HCL 50 MG TAB PO PRN (19:44)
[2020-04-25] MEDS: ATORVASTATIN 10 MG TAB PO SCH (20:05)
[2020-04-26] MEDS: FLUTICASONE 50MCG NASAL SPRAY NAS SCH (07:04)
[2020-04-26] MEDS: ENOXAPARIN 40 MG/0.4 ML SQ SCH (07:04)
[2020-04-26] MEDS: PANTOPRAZOLE 40MG TABLET PO SCH (07:04)
[2020-04-26] MEDS: CRANBERRY FRUIT EXTRACT 200 MG CAP PO SCH ×2 (07:50→19:39)
[2020-04-26] MEDS: FE SULF/FA/VIT B COMP & C TAB PO SCH (07:50)
[2020-04-26] MEDS: DOXYCYCLINE 100 MG PO SCH (07:51)
[2020-04-26] MEDS: GABAPENTIN 300 MG CAP PO SCH ×2 (07:51→19:40)
[2020-04-26] MEDS: FERROUS SULFATE 325 MG TAB PO SCH (07:51)
[2020-04-26] MEDS: MELOXICAM 7.5 MG TAB PO SCH (07:51)
[2020-04-26] MEDS: predniSONE 20 MG TAB PO SCH ×2 (07:51→19:40)
[2020-04-26] MEDS: NITROFURAN MACRO 100 MG CAP PO SCH ×2 (07:51→17:02)
[2020-04-26] MEDS: PROMOD 30 ML DOSE PO SCH ×2 (07:52→19:44)
--- NOTE | 2020-04-26 10:05 | P.RH.PN ---
Estimated Length of Stay: 15 Expected Discharge Date: 05/02/20 Discharge Disposition Plan: Home Family Support: Yes [facility] Goal: Mobility, Transfers, Self Care Vital Signs: Last Vital Signs Temp 98.6 F 04/26/20 07:28 Pulse 60 04/26/20 07:28 Resp 16 04/26/20 07:28 BP 139/75 04/26/20 07:28 Pulse Ox 100 04/26/20 07:28 Laboratory: Laboratory Last Values WBC 14.2 K/uL (4.3-10.9) H 04/25/20 06:33 RBC 3.53 M/uL (3.86-4.86) L D 04/25/20 06:33 Hgb 10.5 g/dL (12.0-15.0) L 04/25/20 06:33 Hct 32.2 % (36.0-45.0) L D 04/25/20 06:33 MCV 91.2 fL (80-100) 04/25/20 06:33 MCH 29.7 pg (27.0-35.0) 04/25/20 06:33 MCHC 32.6 g/dL (32.0-36.0) 04/25/20 06:33 RDW 16.0 % (12.1-15.2) H 04/25/20 06:33 Plt Count 522 K/uL (152-406) H 04/25/20 06:33 MPV 10.3 fL (7.6-11.3) D 04/25/20 06:33 Neutrophils % 77.8 % (41.7-73.7) H 04/25/20 06:33 Lymphocytes % 14.5 % (15.3-44.8) L 04/25/20 06:33 Monocytes % 6.8 % (3.3-12.3) 04/25/20 06:33 Eosinophils % 0.1 % (0-4.4) 04/25/20 06:33 Basophils % 0.8 % (0-1.3) 04/25/20 06:33 Absolute Neutrophils 11.1 K/uL (1.8-8.0) H 04/25/20 06:33 Absolute Lymphocytes 2.1 K/uL (0.7-4.9) 04/25/20 06:33 Absolute Monocytes 1.0 K/uL (0.1-1.3) 04/25/20 06:33 Absolute Eosinophils 0.0 K/uL (0-0.5) 04/25/20 06:33 Absolute Basophils 0.1 K/uL (0-0.5) 04/25/20 06:33 Platelet Estimate Incr 04/19/20 06:56 Morphology Comment Not seen (NOT SEEN) 04/19/20 06:56 Sodium 141 mmol/L (136-145) 04/25/20 06:33 Potassium 4.7 mmol/L (3.5-5.1) 04/25/20 06:33 Chloride 111 mmol/L (98-107) H 04/25/20 06:33 Carbon Dioxide 22 mmol/L (21-32) 04/25/20 06:33 BUN 22 mg/dL (7-18) H 04/25/20 06:33 Creatinine 0.85 mg/dL (0.55-1.3) 04/25/20 06:33 Estimated GFR 66 mL/min (=/>90) L 04/25/20 06:33 Glucose 116 mg/dL (74-106) H 04/25/20 06:33 Calcium 8.5 mg/dL (8.5-10.1) 04/25/20 06:33 Magnesium 2.6 mg/dL (1.8-2.4) H D 04/19/20 06:56 Albumin 3.1 g/dL (3.4-5.0) L 04/25/20 06:33 Prealbumin 30.4 mg/dL (20-40) 04/25/20 06:33 Urine Color Yellow 04/18/20 23:10 Urine Appearance Cloudy 04/18/20 23:10 Urine pH 6.5 (5.0-7.0) 04/18/20 23:10 Ur Specific [place] <=1.005 (1.005-1.030) 04/18/20 23:10 Glucose (UA)(Auto) Negative (NEG) 04/18/20 23:10 Urine Ketones Negative (NEG) 04/18/20 23:10 Urine Blood 2+ (NEG) H 04/18/20 23:10 Urine Nitrite Negative (NEG) 04/18/20 23:10 Urine Bilirubin Negative (NEG) 04/18/20 23:10 Urine Urobilinogen 1.0 mg/dL (0.2-1.0) 04/18/20 23:10 Ur Leukocyte Esterase 2+ (NEG) H 04/18/20 23:10 Urine RBC 5-10 /HPF (NONE SEEN) H 04/18/20 23:10 Urine WBC 10-20 /HPF (<5) H 04/18/20 23:10 Ur Squamous Epith Cells 10-20 /HPF (NONE SEEN) H 04/18/20 23:10 Ur Urothelial Cells <5 /HPF (NONE SEEN) 04/18/20 23:10 Urine Bacteria >50 /HPF (<20) H 04/18/20 23:10 Urine Culture Reflexed Not needed 04/18/20 23:10 Urine Total Protein Negative (NEG) 04/18/20 23:10 SARS-CoV-2 RNA (RT-PCR) Negative (NEGATIVE) 04/19/20 13:30 Smear Scan Ok (OK) 04/19/20 06:56 Weight: 244 lb 9.6 oz Wound Present: No Closed Surgical Incision Present: Yes Negative Pressure Wound Therapy Present: No Physician Update: WBC increased to 14. Will get chest x-ray, repeat UA. She just completed a course of antibiotics for a UTI. She is doing well with physical and occupational therapy. Medical Issues: HX OF BILATERAL KNEE REPLACEMENT, COPD, DEPRESSION, GERD, OBESITY. Medication Issues: NONE AT THIS TIME. Pain Issues: TAKING TYLENOL, LIDOCAINE PATCH, AND TRAMADOL FOR PAIN. Functional Improvement: Patient has met all short-term goals at this time, w/ the exception of gait distance. Patient continues to show improvement in all aspects of therapy, however continues to require VC for pacing. Summary: Patient's care plan and finisher machine goals have been reviewed and revised as necessary. Please see the Rehabilitation Signature page for all necessary signatures.
[2020-04-26] MEDS: LIDOCAINE 4% PATCH TOP SCH (10:11)
--- NOTE | 2020-04-26 12:35 | RAD REPORT ---
EXAM DESCRIPTION: Miguelina Single View04/26/2020 12:28 pm CLINICAL HISTORY: Cough COMPARISON: 2018 FINDINGS: The lungs appear clear of acute infiltrate. The heart is borderline enlarged IMPRESSION: No acute abnormalities displayed
[2020-04-26 13:14] LABS: Urine Appearance TURBID; Urine Bilirubin NEGATIVE (NEG); Urine Blood 1+ (NEG); Urine Color DK YELLOW; Urine Glucose NEGATIVE (NEG); Urine Protein 2+ (NEG); Urine Specific Gravity >=1.030 (1.005-1.030)
[2020-04-26 13:36] LABS: Calcium Oxalate Crystals- Ur MANY (NONE SEEN); Urine Bacteria >50 /HPF (<20); Urine Culture Reflex Order NOT NEEDED
[2020-04-26] MEDS ORDERED: CEFTRIAXONE/SWI 1gm 1 GM/10 ML SYR IVP ONE (15:00)
[2020-04-26] MEDS: TRAZODONE 50 MG TABLET PO PRN (19:40)
[2020-04-26] MEDS: ATORVASTATIN 10 MG TAB PO SCH (20:31)
[2020-04-27 05:46] VITALS: BMI 42.2
[2020-04-27 06:47] LABS: Absolute Lymphocytes (CBC) 1.5 K/uL (0.7-4.9); Basophils % 0.4 % (0-1.3); Hematocrit 34.3 % (36.0-45.0); Lymphocytes % 13.1 % (15.3-44.8); MPV 10.2 fL (7.6-11.3); RBC Red Blood Cell Count 3.73 M/uL (3.86-4.86)
[2020-04-27] MEDS: PANTOPRAZOLE 40MG TABLET PO SCH (07:48)
[2020-04-27] MEDS: ENOXAPARIN 40 MG/0.4 ML SQ SCH (07:49)
[2020-04-27] MEDS: PROMOD 30 ML DOSE PO SCH ×2 (08:00→20:05)
[2020-04-27] MEDS: LIDOCAINE 4% PATCH TOP SCH ×2 (08:00→08:05)
[2020-04-27] MEDS: NITROFURAN MACRO 100 MG CAP PO SCH ×2 (08:06→16:35)
[2020-04-27] MEDS: MELOXICAM 7.5 MG TAB PO SCH (08:06)
[2020-04-27] MEDS: GABAPENTIN 300 MG CAP PO SCH ×2 (08:06→20:05)
[2020-04-27] MEDS: CRANBERRY FRUIT EXTRACT 200 MG CAP PO SCH ×2 (08:06→20:05)
[2020-04-27] MEDS: TRAMADOL HCL 50 MG TAB PO PRN ×2 (08:07→20:04)
[2020-04-27] MEDS: predniSONE 20 MG TAB PO SCH ×2 (08:07→20:04)
[2020-04-27] MEDS: FERROUS SULFATE 325 MG TAB PO SCH (08:07)
[2020-04-27] MEDS: FE SULF/FA/VIT B COMP & C TAB PO SCH (08:07)
[2020-04-27] MEDS: DOXYCYCLINE 100 MG PO SCH (08:08)
[2020-04-27] MEDS: FLUTICASONE 50MCG NASAL SPRAY NAS SCH (08:10)
--- NOTE | 2020-04-27 15:16 | FAST ---
[employer] FORM SHIFT START DATE/TIME: 04/27/2020 07:00 (CDT) SHIFT END DATE/TIME: 04/27/2020 19:00 (CDT) NAME DESIREE CARVALHO DATE OF : 1950 DATE OF ADMISSION: 04/18/2020 10:47 (CDT) PHONE: AGE: 70 N# [id number] GENDER: Female ENCOUNTER PHYSICIAN: Dr. Moi Barry M.D. ADMISSION DIAGNOSIS: - Orthopaedic Disorders 08 - Unilateral Hip Fracture (08.11) RIGHT FEMUR FRACTURE. EATING: EATING - STEP 1: Does the patient complete the activity by him/herself with no assistance (physical, verbal/nonverbal cueing, setup/clean-up)? No. EATING - STEP 2: Does the patient need only setup/clean-up assistance from one helper? Yes. 1. [id number] ADMISSION PERFORMANCE: Setup or clean-up assistance CODE: 05 ORAL HYGIENE: ORAL HYGIENE - STEP 1: Does the patient complete the activity by him/herself with no assistance (physical, verbal/nonverbal cueing, setup/clean-up)? No. ORAL HYGIENE - STEP 2: Does the patient need only setup/clean-up assistance from one helper? Yes. 1. [id number] ADMISSION PERFORMANCE: Setup or clean-up assistance CODE: 05 TOILETING HYGIENE: TOILETING HYGIENE - STEP 1: Does the patient complete the activity by him/herself with no assistance (physical, verbal/nonverbal cueing, setup/clean-up)? No. TOILETING HYGIENE - STEP 2: Does the patient need only setup/clean-up assistance from one helper? Yes. 1. [id number] ADMISSION PERFORMANCE: Setup or clean-up assistance CODE: 05 BATHING: Not assessed/no information CODE: - DRESSING - UPPER BODY: DRESSING - UPPER BODY - STEP 1: Does the patient complete the activity by him/herself with no assistance (physical, verbal/nonverbal cueing, setup/clean-up)? No. DRESSING - UPPER BODY - STEP 2: Does the patient need only setup/clean-up assistance from one helper? Yes. 1. [id number] ADMISSION PERFORMANCE: Setup or clean-up assistance CODE: 05 DRESSING - LOWER BODY: DRESSING - LOWER BODY - STEP 1: Does the patient complete the activity by him/herself with no assistance (physical, verbal/nonverbal cueing, setup/clean-up)? No. DRESSING - LOWER BODY - STEP 2: Does the patient need only setup/clean-up assistance from one helper? Yes. 1. [id number] ADMISSION PERFORMANCE: Setup or clean-up assistance CODE: 05 PUTTING ON/TAKING OFF FOOTWEAR: FOOTWEAR - STEP 1: Does the patient complete the activity by him/herself with no assistance (physical, verbal/nonverbal cueing, setup/clean-up)? No. FOOTWEAR - STEP 2: Does the patient need only setup/clean-up assistance from one helper? Yes. 1. [id number] ADMISSION PERFORMANCE: Setup or clean-up assistance CODE: 05 ROLL LEFT AND RIGHT: ROLL LEFT AND RIGHT - STEP 1: Does the patient complete the activity by him/herself with no assistance (physical, verbal/nonverbal cueing, setup/clean-up)? No. ROLL LEFT AND RIGHT - STEP 2: Does the patient need only setup/clean-up assistance from one helper? Yes. 1. [id number] ADMISSION PERFORMANCE: Setup or clean-up assistance CODE: 05 SIT TO LYING: SIT TO LYING - STEP 1: Does the patient complete the activity by him/herself with no assistance (physical, verbal/nonverbal cueing, setup/clean-up)? No. SIT TO LYING - STEP 2: Does the patient need only setup/clean-up assistance from one helper? Yes. 1. [id number] ADMISSION PERFORMANCE: Setup or clean-up assistance CODE: 05 LYING TO SITTING: LYING TO SITTING ON SIDE OF BED - STEP 1: Does the patient complete the activity by him/herself with no assistance (physical, verbal/nonverbal cueing, setup/clean-up)? No. LYING TO SITTING ON SIDE OF BED - STEP 2: Does the patient need only setup/clean-up assistance from one helper? Yes. 1. [id number] ADMISSION PERFORMANCE: Setup or clean-up assistance CODE: 05 SIT TO STAND: SIT TO STAND - STEP 1: Does the patient complete the activity by him/herself with no assistance (physical, verbal/nonverbal cueing, setup/clean-up)? No. SIT TO STAND - STEP 2: Does the patient need only setup/clean-up assistance from one helper? Yes. 1. [id number] ADMISSION PERFORMANCE: Setup or clean-up assistance CODE: 05 TRANSFERS: BED, CHAIR: CHAIR/[id number] TRANSFER - STEP 1: Does the patient complete the activity by him/herself with no assistance (physical, verbal/nonverbal cueing, setup/clean-up)? No. CHAIR/[id number] TRANSFER - STEP 2: Does the patient need only setup/clean-up assistance from one helper? Yes. 1. [id number] ADMISSION PERFORMANCE: Setup or clean-up assistance CODE: 05 TRANSFER TOILET: TOILET TRANSFER - STEP 1: Does the patient complete the activity by him/herself with no assistance (physical, verbal/nonverbal cueing, setup/clean-up)? No. TOILET TRANSFER - STEP 2: Does the patient need only setup/clean-up assistance from one helper? Yes. 1. [id number] ADMISSION PERFORMANCE: Setup or clean-up assistance CODE: 05 TRANSFERS: CAR: Not assessed/no information CODE: - WALK 10 FEET: Not assessed/no information CODE: - 1 STEP (CURB): Not assessed/no information CODE: - PICKING UP OBJECT: Not assessed/no information CODE: - DOES THE PATIENT USE A WHEELCHAIR/SCOOTER? Q1. DOES THE PATIENT USE A WHEELCHAIR/SCOOTER?: Yes CODE: 1 WHEEL 50 FEET WITH TWO TURNS: WHEEL 50 FEET WITH TWO TURNS - STEP 1: Does the patient complete the activity by him/herself with no assistance (physical, verbal/nonverbal cueing, setup/clean-up)? Yes. 1. [id number] ADMISSION PERFORMANCE: Independent CODE: 06 INDICATE THE TYPE OF WHEELCHAIR/SCOOTER USED: RR1. INDICATE THE TYPE OF WHEELCHAIR/SCOOTER USED.: Manual CODE: 1 WHEEL 150 FEET: WHEEL 150 FEET - STEP 1: Does the patient complete the activity by him/herself with no assistance (physical, verbal/nonverbal cueing, setup/clean-up)? Yes. 1. [id number] ADMISSION PERFORMANCE: Independent CODE: 06 INDICATE THE TYPE OF WHEELCHAIR/SCOOTER USED: SS1. INDICATE THE TYPE OF WHEELCHAIR/SCOOTER USED.: Manual CODE: 1 BLADDER AND BOWEL: H350. BLADDER CONTINENCE (3-DAY ASSESSMENT PERIOD): Always continent (no documented incontinence) CODE: 0 H400. BOWEL CONTINENCE (3-DAY ASSESSMENT PERIOD): Always continent CODE: 0 SIGNATURE PANEL: The following modified sections: 1. [id number] Admission Performance, 1. [id number] Admission Performance, 1. [id number] Admission Performance, 1. PM2011h Admission Performance, 1. NG7280s Admission Performance, 1. MC8761m Admission Performance, 1. OF1075Y Admission Performance, 1. [id number] Admission Performance , 1. [id number] Admission Performance, 1. GB4308A Admission Performance, 1. GE5040T Admission Performanc e, 1. [id number] Admission Performance, Q1. Does the patient use a wheelchair/scooter?, 1. [id number] Admis lauren Performance, RR1. Indicate the type of wheelchair/scooter used., 1. [id number] Admission Performanc e, Code, SS1. Indicate the type of wheelchair/scooter used., H350. Bladder Continence (3-day assessme nt period), H400. Bowel Continence (3-day assessment period) were [electronically] signed by Kandi Arndt C.N.ASoledad on Sat Apr 27 2020 15:15:28 GMT-0500 (Central Daylight Time)
[2020-04-27] MEDS: ATORVASTATIN 10 MG TAB PO SCH (20:04)
[2020-04-27] MEDS: TRAZODONE 50 MG TABLET PO PRN (20:05)
[2020-04-28] MEDS: ENOXAPARIN 40 MG/0.4 ML SQ SCH (08:00)
[2020-04-28] MEDS: LIDOCAINE 4% PATCH TOP SCH (08:00)
[2020-04-28] MEDS: PROMOD 30 ML DOSE PO SCH ×2 (08:00→20:00)
[2020-04-28] MEDS: PANTOPRAZOLE 40MG TABLET PO SCH (08:35)
[2020-04-28] MEDS: MELOXICAM 7.5 MG TAB PO SCH (08:36)
[2020-04-28] MEDS: CRANBERRY FRUIT EXTRACT 200 MG CAP PO SCH ×2 (08:37→19:59)
[2020-04-28] MEDS: TRAMADOL HCL 50 MG TAB PO PRN ×2 (08:37→19:59)
[2020-04-28] MEDS: FERROUS SULFATE 325 MG TAB PO SCH (08:40)
[2020-04-28] MEDS: DOXYCYCLINE 100 MG PO SCH (08:40)
[2020-04-28] MEDS: GABAPENTIN 300 MG CAP PO SCH ×2 (08:41→19:59)
[2020-04-28] MEDS: predniSONE 20 MG TAB PO SCH ×2 (08:41→19:59)
[2020-04-28] MEDS: NITROFURAN MACRO 100 MG CAP PO SCH ×2 (08:41→17:22)
[2020-04-28] MEDS: FLUTICASONE 50MCG NASAL SPRAY NAS SCH (08:42)
[2020-04-28] MEDS: FE SULF/FA/VIT B COMP & C TAB PO SCH (08:45)
[2020-04-28] MEDS: ATORVASTATIN 10 MG TAB PO SCH (19:59)
[2020-04-29] MEDS: PANTOPRAZOLE 40MG TABLET PO SCH (07:11)
[2020-04-29] MEDS: ENOXAPARIN 40 MG/0.4 ML SQ SCH (07:11)
[2020-04-29] MEDS: FLUTICASONE 50MCG NASAL SPRAY NAS SCH (07:12)
[2020-04-29] MEDS: CRANBERRY FRUIT EXTRACT 200 MG CAP PO SCH ×2 (07:55→19:52)
[2020-04-29] MEDS: predniSONE 20 MG TAB PO SCH ×2 (07:55→19:52)
[2020-04-29] MEDS: NITROFURAN MACRO 100 MG CAP PO SCH ×2 (07:55→16:48)
[2020-04-29] MEDS: LIDOCAINE 4% PATCH TOP SCH (07:55)
[2020-04-29] MEDS: MELOXICAM 7.5 MG TAB PO SCH (07:55)
[2020-04-29] MEDS: DOXYCYCLINE 100 MG PO SCH (07:56)
[2020-04-29] MEDS: GABAPENTIN 300 MG CAP PO SCH ×2 (07:56→19:52)
[2020-04-29] MEDS: FE SULF/FA/VIT B COMP & C TAB PO SCH (07:56)
[2020-04-29] MEDS: FERROUS SULFATE 325 MG TAB PO SCH (07:56)
[2020-04-29] MEDS: PROMOD 30 ML DOSE PO SCH ×2 (07:57→19:52)
[2020-04-29] MEDS: NYSTATIN PWDR 100000 UNIT/GM TOP SCH ×2 (11:13→20:00)
--- NOTE | 2020-04-29 18:09 | R.PN ---
PROGRESS NOTES ENCOUNTER DATE AND TIME: 04/29/2020 18:07 (CDT) NAME DESIREE CARVALHO DATE OF : 1950 DATE OF ADMISSION: 04/18/2020 10:47 (CDT) RIGHT FEMUR FRACTURECHIEF COMPLAINT: Right hip fracture. SUBJECTIVE: Pt denied any depression. Pt denied any Shortness of Breath. Ambulated 40' with standby assistance using a rolling walker. Self-propelled 750' with wheelchair an d independence. WBC 11.6, Hgb 11.1, prealbumin 30.4. VITAL SIGNS Temperature: 97.0 F SBP/DBP: 124/68 Pulse: 65 Resp: 16 MEDICATION ALLERGIES: XANAX ZINC ENVIRONMENTAL ALLERGIES: - Substance Allergies None Known - Other Allergies None Known NURSING: - Shower allowing shower - Skin care per protocol PRECAUTIONS: - Anterior Hip Precaution No abduction No active extension No adduction across midline No external rotation No hip flexion >90 degrees No internal rotation - Posterior Hip Precaution No adduction across midline No external rotation No hip flexion >90 degrees No internal rotation No wheel chair propulsion - Weight Bearing Precaution WBAT left LE ACTIVITIES OOB only with supervision THERAPIES: - Dietary and Nutrition Adequate Nutrition. Nutritional Education. Nutritional Supplements. PHYSICAL EXAM - Gen Alert and awake Lying in bed No apparent distress Oriented to: person, time, and place - Skin No skin breakdown. Normacephalic - Eyes No abnormalities - ENMT No abnormalities - Neck No abnormalities No cervical adenopathy - CVS RRR - Chest No abnormalities - Resp Clear to auscultation - Abd Soft - GI Non distended Deferred - No abnormalities - Ext Right hip surgical site has good hemostasis. - MSK 4+/5 weakness in right lower extremity - Neuro 4/5 strength right lower extremity. - Psych No abnormalities ASSESSMENT: Pt. is a 70 yo Right-handed female of unknown race.On 04/06/2020 she was admitted to [facility] nd underwent emergency surgery for RIGHT FEMUR FRACTURE (Unilateral Hip Fracture) by DR. SULLIVAN.Pre -morbidly, Pt. was independent/mod-I in Communication, Safety Awareness, Social Cognition, and Transf ers Control; and she had good Endurance and Locomotion.Currently, she has deficits of Safety Awarenes s, Balance, Sphincter Control, Self-Care, and Endurance.Pt. is now referred to [facility] for acute in-patient rehabilitation in order to maximize patient's functional independenc e in activities of daily living, strength, ROM, and mobility.- Rehab Goal Patient has realistic goal of being discharged at assistance level 7-Ind to reside at Home with Fami ly/Relatives. MDM/PLAN: - Physical Therapy Decreased range of motion - to improve, our physical therapists will perform initial evaluation of p t's status upon admission and devise an individualized program for increasing patient's Range of [place] on. Gait dysfunction - to improve, our physical therapists will perform initial evaluation of pt's statu s upon admission and devise an individualized program for Gait Training, and Wheel Chair mobility Need for home safety evaluation - to improve, our physical therapists will perform initial evaluatio n of pt's status upon admission and devise an individualized program for Home Evaluation Need in caregiver upon discharge - to improve, our physical therapists will perform initial evaluati on of pt's status upon admission and devise an individualized program for Caregiver Training New precaution - to improve, our physical therapists will perform initial evaluation of pt's status upon admission and devise an individualized program for Patient precaution education Poor balance - to improve, our physical therapists will perform initial evaluation of pt's status up on admission and devise an individualized program for Balance Training Poor endurance - to improve, our physical therapists will perform initial evaluation of pt's status upon admission and devise an individualized program for Endurance Training Weakness - to improve, our physical therapists will perform initial evaluation of pt's status upon a dmission and devise an individualized program for Aquatic Therapy, Neuromuscular Reeducation, and Str engthening Achieving independence - to improve, our physical therapists will perform initial evaluation of pt's status upon admission and devise an individualized program for Community Reintegration Activities - Occupational Therapy ADL deficits - to improve, our occupation therapists will perform initial evaluation of pt's status upon admission and devise an individualized program for Bathing, Bed mobility, Community Reintegratio n, Cooking, Dressing, Eating, Fine Motor Skills, Grooming, Homemaking, Kitchen Mobility, Laundry, Pat ient Education, Safety Awareness, Splinting - Positioning, Transfers(Toilet, Tub, Shower), and Wheel Chair Management Need for animal care taker - to improve, our occupation therapists will perform initial evaluation of pt's status upon admission and devise an individualized program for Caregiver Training Weakness - to improve, our occupation therapists will perform initial evaluation of pt's status upon admission and devise an individualized program for Aquatic Therapy, Balance, Endurance, UE ROM, and UE strengthening - Other See attached MAR (Medication Administration Record) - Anterior Hip Precaution No abduction No active extension No adduction across midline No external rotation No hip flexion >90 degrees No internal rotation - Diet - Liquid Texture Continue Regular - Tube Feed Continue N/A - Diet Type Continue Regular - Posterior Hip Precaution No adduction across midline No external rotation No hip flexion >90 degrees No internal rotation No wheel chair propulsion - Weight Bearing Precaution WBAT right LE - Skin care per protocol - Diet - Solid Texture Continue Regular - Shower allowing shower FUNCTIONAL STATUS: UPDATED AT WEEKLY TEAM CONFERENCE - Bladder Same accident frequency: 7-Ind - No accidents in the past 7 days - Bowel Same accident frequency: 7-Ind - No accidents in the past 7 days - Walking Same score based on distance walked: 0(N/A) - Wheelchair Same score based on distance traveled: 0(N/A) FUNCTIONAL STATUS: - Self-Care A. Eating Sushma B. Grooming Sushma C. Bathing Mary Kay D. Dressing - Upper sup E. Dressing - Lower modA F. Toileting modA - Sphincter Control G. Bladder control Sushma H. Bowel control Sushma - Transfers Control I. Bed/Chair/Wheelchair Mary Kay J. Toilet Mary Kay K. Tub/Shower modA - Locomotion L. Walk/Wheelchair (B) modA M. Stairs ADNO - Communication N. Comprehension (B) Ind O. Expression (B) Ind - Social Cognition P. Social Interaction Ind Q. Problem Solving Ind R. Memory Ind - Endurance Fair - Balance Fair - Safety Awareness Good QI SCORES: - Self-Care A. Eating 03-Partial/moderate assistance B. Oral hygiene 03-Partial/moderate assistance C. Toileting hygiene E. Shower/bathe self 02-Substantial/maximal assistance F. Upper body dressing 03-Partial/moderate assistance G. Lower body dressing 02-Substantial/maximal assistance H. Putting on/taking off footwear 88-Not attempted due to medical condition or safety concerns - Mobility A. Roll left and right 03-Partial/moderate assistance B. Sit to lying 03-Partial/moderate assistance C. Lying to sitting on side of bed 03-Partial/moderate assistance D. Sit to stand 02-Substantial/maximal assistance E. Chair/nau-ks-ygzzo transfer 02-Substantial/maximal assistance F. Toilet transfer G. Car transfer 88-Not attempted due to medical condition or safety concerns I. Walk 10 feet 88-Not attempted due to medical condition or safety concerns J. Walk 50 feet with two turns 88-Not attempted due to medical condition or safety concerns K. Walk 150 feet 88-Not attempted due to medical condition or safety concerns L. Walking 10 feet on uneven surfaces 88-Not attempted due to medical condition or safety concerns M. 1 step (curb) 88-Not attempted due to medical condition or safety concerns N. 4 steps 88-Not attempted due to medical condition or safety concerns O. 12 steps 88-Not attempted due to medical condition or safety concerns P. Picking up object 88-Not attempted due to medical condition or safety concerns R. Wheel 50 feet with two turns 88-Not attempted due to medical condition or safety concerns S. Wheel 150 feet 88-Not attempted due to medical condition or safety concerns - Bladder and Bowel Bladder continence Bowel continence - Endurance Fair - Balance Poor - Safety Awareness Fair [facility]RENT [facility]. DEFICITS: Self-Care, Mobility, Endurance, Balance, and Safety Awareness SIGNATURE PANEL: (CDT)
[2020-04-29] MEDS ORDERED: NYSTATIN PWDR 100000 UNIT/GM TOP SCH (20:00)
[2020-04-29] MEDS: ATORVASTATIN 10 MG TAB PO SCH (20:00)
[2020-04-30] MEDS: FLUTICASONE 50MCG NASAL SPRAY NAS SCH (07:00)
[2020-04-30] MEDS: PANTOPRAZOLE 40MG TABLET PO SCH (07:00)
[2020-04-30] MEDS: ENOXAPARIN 40 MG/0.4 ML SQ SCH (07:00)
[2020-04-30] MEDS: NYSTATIN PWDR 100000 UNIT/GM TOP SCH ×2 (07:00→20:29)
[2020-04-30] MEDS: PROMOD 30 ML DOSE PO SCH ×2 (07:36→20:00)
[2020-04-30] MEDS: LIDOCAINE 4% PATCH TOP SCH (07:54)
[2020-04-30] MEDS: predniSONE 20 MG TAB PO SCH ×2 (07:55→20:28)
[2020-04-30] MEDS: FERROUS SULFATE 325 MG TAB PO SCH (07:55)
[2020-04-30] MEDS: CRANBERRY FRUIT EXTRACT 200 MG CAP PO SCH ×2 (07:55→20:28)
[2020-04-30] MEDS: MELOXICAM 7.5 MG TAB PO SCH (07:55)
[2020-04-30] MEDS: DOXYCYCLINE 100 MG CAP PO SCH (07:55)
[2020-04-30] MEDS: FE SULF/FA/VIT B COMP & C TAB PO SCH (07:56)
[2020-04-30] MEDS: GABAPENTIN 300 MG CAP PO SCH ×2 (07:56→20:29)
--- NOTE | 2020-04-30 17:05 | R.PN ---
PROGRESS NOTES ENCOUNTER DATE AND TIME: 04/30/2020 17:03 (CDT) NAME DEISREE CARVALHO DATE OF : 1950 DATE OF ADMISSION: 04/18/2020 10:47 (CDT) RIGHT FEMUR FRACTURECHIEF COMPLAINT: Right hip fracture. SUBJECTIVE: Pt denied any depression. Pt denied any Shortness of Breath. Ambulated 40' with standby assistance using a rolling walker. Self-propelled 750' with wheelchair an d independence. WBC 11.6, Hgb 11.1, prealbumin 30.4. VITAL SIGNS Temperature: 97.0 F SBP/DBP: 128/71 Pulse: 53 Resp: 16 MEDICATION ALLERGIES: XANAX ZINC ENVIRONMENTAL ALLERGIES: - Substance Allergies None Known - Other Allergies None Known NURSING: - Shower allowing shower - Skin care per protocol PRECAUTIONS: - Anterior Hip Precaution No abduction No active extension No adduction across midline No external rotation No hip flexion >90 degrees No internal rotation - Posterior Hip Precaution No adduction across midline No external rotation No hip flexion >90 degrees No internal rotation No wheel chair propulsion - Weight Bearing Precaution WBAT left LE ACTIVITIES OOB only with supervision THERAPIES: - Dietary and Nutrition Adequate Nutrition. Nutritional Education. Nutritional Supplements. PHYSICAL EXAM - Gen Alert and awake Lying in bed No apparent distress Oriented to: person, time, and place - Skin No skin breakdown. Normacephalic - Eyes No abnormalities - ENMT No abnormalities - Neck No abnormalities No cervical adenopathy - CVS RRR - Chest No abnormalities - Resp Clear to auscultation - Abd Soft - GI Non distended Deferred - No abnormalities - Ext Right hip surgical site has good hemostasis. - MSK 4+/5 weakness in right lower extremity - Neuro 4/5 strength right lower extremity. - Psych No abnormalities ASSESSMENT: Pt. is a 70 yo Right-handed female of unknown race.On 04/06/2020 she was admitted to [facility] nd underwent emergency surgery for RIGHT FEMUR FRACTURE (Unilateral Hip Fracture) by DR. SULLIVAN.Pre -morbidly, Pt. was independent/mod-I in Communication, Safety Awareness, Social Cognition, and Transf ers Control; and she had good Endurance and Locomotion.Currently, she has deficits of Safety Awarenes s, Balance, Sphincter Control, Self-Care, and Endurance.Pt. is now referred to [facility] for acute in-patient rehabilitation in order to maximize patient's functional independenc e in activities of daily living, strength, ROM, and mobility.- Rehab Goal Patient has realistic goal of being discharged at assistance level 7-Ind to reside at Home with Fami ly/Relatives. MDM/PLAN: - Physical Therapy Decreased range of motion - to improve, our physical therapists will perform initial evaluation of p t's status upon admission and devise an individualized program for increasing patient's Range of [place] on. Gait dysfunction - to improve, our physical therapists will perform initial evaluation of pt's statu s upon admission and devise an individualized program for Gait Training, and Wheel Chair mobility Need for home safety evaluation - to improve, our physical therapists will perform initial evaluatio n of pt's status upon admission and devise an individualized program for Home Evaluation Need in caregiver upon discharge - to improve, our physical therapists will perform initial evaluati on of pt's status upon admission and devise an individualized program for Caregiver Training New precaution - to improve, our physical therapists will perform initial evaluation of pt's status upon admission and devise an individualized program for Patient precaution education Poor balance - to improve, our physical therapists will perform initial evaluation of pt's status up on admission and devise an individualized program for Balance Training Poor endurance - to improve, our physical therapists will perform initial evaluation of pt's status upon admission and devise an individualized program for Endurance Training Weakness - to improve, our physical therapists will perform initial evaluation of pt's status upon a dmission and devise an individualized program for Aquatic Therapy, Neuromuscular Reeducation, and Str engthening Achieving independence - to improve, our physical therapists will perform initial evaluation of pt's status upon admission and devise an individualized program for Community Reintegration Activities - Occupational Therapy ADL deficits - to improve, our occupation therapists will perform initial evaluation of pt's status upon admission and devise an individualized program for Bathing, Bed mobility, Community Reintegratio n, Cooking, Dressing, Eating, Fine Motor Skills, Grooming, Homemaking, Kitchen Mobility, Laundry, Pat ient Education, Safety Awareness, Splinting - Positioning, Transfers(Toilet, Tub, Shower), and Wheel Chair Management Need for care management coordinator - to improve, our occupation therapists will perform initial evaluation of pt's status upon admission and devise an individualized program for Caregiver Training Weakness - to improve, our occupation therapists will perform initial evaluation of pt's status upon admission and devise an individualized program for Aquatic Therapy, Balance, Endurance, UE ROM, and UE strengthening - Other See attached MAR (Medication Administration Record) - Anterior Hip Precaution No abduction No active extension No adduction across midline No external rotation No hip flexion >90 degrees No internal rotation - Diet - Liquid Texture Continue Regular - Tube Feed Continue N/A - Diet Type Continue Regular - Posterior Hip Precaution No adduction across midline No external rotation No hip flexion >90 degrees No internal rotation No wheel chair propulsion - Weight Bearing Precaution WBAT right LE - Skin care per protocol - Diet - Solid Texture Continue Regular - Shower allowing shower FUNCTIONAL STATUS: UPDATED AT WEEKLY TEAM CONFERENCE - Bladder Same accident frequency: 7-Ind - No accidents in the past 7 days - Bowel Same accident frequency: 7-Ind - No accidents in the past 7 days - Walking Same score based on distance walked: 0(N/A) - Wheelchair Same score based on distance traveled: 0(N/A) FUNCTIONAL STATUS: - Self-Care A. Eating Sushma B. Grooming Sushma C. Bathing Mary Kay D. Dressing - Upper sup E. Dressing - Lower modA F. Toileting modA - Sphincter Control G. Bladder control Sushma H. Bowel control Sushma - Transfers Control I. Bed/Chair/Wheelchair Mary Kay J. Toilet Mary Kay K. Tub/Shower modA - Locomotion L. Walk/Wheelchair (B) modA M. Stairs ADNO - Communication N. Comprehension (B) Ind O. Expression (B) Ind - Social Cognition P. Social Interaction Ind Q. Problem Solving Ind R. Memory Ind - Endurance Fair - Balance Fair - Safety Awareness Good QI SCORES: - Self-Care A. Eating 03-Partial/moderate assistance B. Oral hygiene 03-Partial/moderate assistance C. Toileting hygiene E. Shower/bathe self 02-Substantial/maximal assistance F. Upper body dressing 03-Partial/moderate assistance G. Lower body dressing 02-Substantial/maximal assistance H. Putting on/taking off footwear 88-Not attempted due to medical condition or safety concerns - Mobility A. Roll left and right 03-Partial/moderate assistance B. Sit to lying 03-Partial/moderate assistance C. Lying to sitting on side of bed 03-Partial/moderate assistance D. Sit to stand 02-Substantial/maximal assistance E. Chair/inn-rk-nrlfk transfer 02-Substantial/maximal assistance F. Toilet transfer G. Car transfer 88-Not attempted due to medical condition or safety concerns I. Walk 10 feet 88-Not attempted due to medical condition or safety concerns J. Walk 50 feet with two turns 88-Not attempted due to medical condition or safety concerns K. Walk 150 feet 88-Not attempted due to medical condition or safety concerns L. Walking 10 feet on uneven surfaces 88-Not attempted due to medical condition or safety concerns M. 1 step (curb) 88-Not attempted due to medical condition or safety concerns N. 4 steps 88-Not attempted due to medical condition or safety concerns O. 12 steps 88-Not attempted due to medical condition or safety concerns P. Picking up object 88-Not attempted due to medical condition or safety concerns R. Wheel 50 feet with two turns 88-Not attempted due to medical condition or safety concerns S. Wheel 150 feet 88-Not attempted due to medical condition or safety concerns - Bladder and Bowel Bladder continence Bowel continence - Endurance Fair - Balance Poor - Safety Awareness Fair CURRENT [facility]. DEFICITS: Self-Care, Mobility, Endurance, Balance, and Safety Awareness SIGNATURE PANEL: (CDT)
[2020-04-30] MEDS: TRAMADOL HCL 50 MG TAB PO PRN (20:28)
[2020-04-30] MEDS: ATORVASTATIN 10 MG TAB PO SCH (20:29)
[2020-05-01] MEDS: TRAZODONE 50 MG TABLET PO PRN (02:00)
[2020-05-01] MEDS: FERROUS SULFATE 325 MG TAB PO SCH (07:35)
[2020-05-01] MEDS: LIDOCAINE 4% PATCH TOP SCH (07:35)
[2020-05-01] MEDS: predniSONE 20 MG TAB PO SCH ×2 (07:35→19:52)
[2020-05-01] MEDS: CRANBERRY FRUIT EXTRACT 200 MG CAP PO SCH ×2 (07:35→19:51)
[2020-05-01] MEDS: PANTOPRAZOLE 40MG TABLET PO SCH (07:36)
[2020-05-01] MEDS: FE SULF/FA/VIT B COMP & C TAB PO SCH (07:36)
[2020-05-01] MEDS: FLUTICASONE 50MCG NASAL SPRAY NAS SCH (07:36)
[2020-05-01] MEDS: NYSTATIN PWDR 100000 UNIT/GM TOP SCH ×2 (07:36→19:52)
[2020-05-01] MEDS: ENOXAPARIN 40 MG/0.4 ML SQ SCH (07:37)
[2020-05-01] MEDS: MELOXICAM 7.5 MG TAB PO SCH (07:37)
[2020-05-01] MEDS: GABAPENTIN 300 MG CAP PO SCH ×2 (07:37→19:52)
[2020-05-01] MEDS: DOXYCYCLINE 100 MG CAP PO SCH (07:37)
[2020-05-01] MEDS: PROMOD 30 ML DOSE PO SCH ×2 (07:39→19:52)
[2020-05-01] MEDS: DRISDOL (VITAMIN D=ERGOCALCIFEROL) 50000 UNIT CAP PO SCH (09:29)
--- NOTE | 2020-05-01 12:46 | FAST ---
OT QI REPORT FORM ENCOUNTER DATE AND TIME: 05/01/2020 08:00 (CDT) NAME DESIREE CARVALHO DATE OF : 1950 DATE OF ADMISSION: 04/18/2020 10:47 (CDT) PHONE: AGE: 70 N# [id number] GENDER: Female ENCOUNTER PHYSICIAN: Dr. Moi Barry M.D. ADMISSION DIAGNOSIS: - Orthopaedic Disorders 08 - Unilateral Hip Fracture (08.11) RIGHT FEMUR FRACTURE. EATING: Not assessed/no information CODE: - ORAL HYGIENE: ORAL HYGIENE - STEP 1: Does the patient complete the activity by him/herself with no assistance (physical, verbal/nonverbal cueing, setup/clean-up)? Yes. 1. [id number] ADMISSION PERFORMANCE: Independent CODE: 06 TOILETING HYGIENE: TOILETING HYGIENE - STEP 1: Does the patient complete the activity by him/herself with no assistance (physical, verbal/nonverbal cueing, setup/clean-up)? Yes. 1. [id number] ADMISSION PERFORMANCE: Independent CODE: 06 BATHING: SHOWER/BATHE SELF - STEP 1: Does the patient complete the activity by him/herself with no assistance (physical, verbal/nonverbal cueing, setup/clean-up)? Yes. 1. [id number] ADMISSION PERFORMANCE: Independent CODE: 06 DRESSING - UPPER BODY: DRESSING - UPPER BODY - STEP 1: Does the patient complete the activity by him/herself with no assistance (physical, verbal/nonverbal cueing, setup/clean-up)? Yes. 1. [id number] ADMISSION PERFORMANCE: Independent CODE: 06 DRESSING - LOWER BODY: DRESSING - LOWER BODY - STEP 1: Does the patient complete the activity by him/herself with no assistance (physical, verbal/nonverbal cueing, setup/clean-up)? Yes. 1. [id number] ADMISSION PERFORMANCE: Independent CODE: 06 PUTTING ON/TAKING OFF FOOTWEAR: FOOTWEAR - STEP 1: Does the patient complete the activity by him/herself with no assistance (physical, verbal/nonverbal cueing, setup/clean-up)? Yes. 1. [id number] ADMISSION PERFORMANCE: Independent CODE: 06 DOES THE PATIENT USE A WHEELCHAIR/SCOOTER? CODE: EXPR INDICATE THE TYPE OF WHEELCHAIR/SCOOTER USED: CODE: EXPR INDICATE THE TYPE OF WHEELCHAIR/SCOOTER USED: CODE: EXPR BLADDER AND BOWEL: CODE: EXPR CODE: EXPR SIGNATURE PANEL: The following modified sections: 1. [id number] Admission Performance, 1. [id number] Admission Performance, 1. [id number] Admission Performance, 1. [id number] Admission Performance, 1. [id number] Admission Performance, 1. [id number] Admission Performance were [electronically] signed by ISAMAR Rubi on WedMay 01 2020 12:45:09 T-0500 (Central Daylight Time)
--- NOTE | 2020-05-01 16:26 | FAST ---
[employer] FORM SHIFT START DATE/TIME: 05/01/2020 07:00 (CDT) SHIFT END DATE/TIME: 05/01/2020 19:00 (CDT) NAME DESIREE CARVALHO DATE OF : 1950 DATE OF ADMISSION: 04/18/2020 10:47 (CDT) PHONE: AGE: 70 N# [id number] GENDER: Female ENCOUNTER PHYSICIAN: Dr. Moi Barry M.D. ADMISSION DIAGNOSIS: - Orthopaedic Disorders 08 - Unilateral Hip Fracture (08.11) RIGHT FEMUR FRACTURE. EATING: EATING - STEP 1: Does the patient complete the activity by him/herself with no assistance (physical, verbal/nonverbal cueing, setup/clean-up)? Yes. 1. [id number] ADMISSION PERFORMANCE: Independent CODE: 06 ORAL HYGIENE: ORAL HYGIENE - STEP 1: Does the patient complete the activity by him/herself with no assistance (physical, verbal/nonverbal cueing, setup/clean-up)? Yes. 1. [id number] ADMISSION PERFORMANCE: Independent CODE: 06 TOILETING HYGIENE: TOILETING HYGIENE - STEP 1: Does the patient complete the activity by him/herself with no assistance (physical, verbal/nonverbal cueing, setup/clean-up)? Yes. 1. [id number] ADMISSION PERFORMANCE: Independent CODE: 06 BATHING: Not assessed/no information CODE: - DRESSING - UPPER BODY: DRESSING - UPPER BODY - STEP 1: Does the patient complete the activity by him/herself with no assistance (physical, verbal/nonverbal cueing, setup/clean-up)? Yes. 1. [id number] ADMISSION PERFORMANCE: Independent CODE: 06 DRESSING - LOWER BODY: DRESSING - LOWER BODY - STEP 1: Does the patient complete the activity by him/herself with no assistance (physical, verbal/nonverbal cueing, setup/clean-up)? Yes. 1. [id number] ADMISSION PERFORMANCE: Independent CODE: 06 PUTTING ON/TAKING OFF FOOTWEAR: FOOTWEAR - STEP 1: Does the patient complete the activity by him/herself with no assistance (physical, verbal/nonverbal cueing, setup/clean-up)? No. FOOTWEAR - STEP 2: Does the patient need only setup/clean-up assistance from one helper? No. FOOTWEAR - STEP 3: Does the patient need only verbal/nonverbal cueing or touching/steadying/contact guard assistance fro m one helper? Yes. 1. [id number] ADMISSION PERFORMANCE: Supervision or touching assistance CODE: 04 ROLL LEFT AND RIGHT: ROLL LEFT AND RIGHT - STEP 1: Does the patient complete the activity by him/herself with no assistance (physical, verbal/nonverbal cueing, setup/clean-up)? No. ROLL LEFT AND RIGHT - STEP 2: Does the patient need only setup/clean-up assistance from one helper? Yes. 1. [id number] ADMISSION PERFORMANCE: Setup or clean-up assistance CODE: 05 SIT TO LYING: SIT TO LYING - STEP 1: Does the patient complete the activity by him/herself with no assistance (physical, verbal/nonverbal cueing, setup/clean-up)? No. SIT TO LYING - STEP 2: Does the patient need only setup/clean-up assistance from one helper? Yes. 1. [id number] ADMISSION PERFORMANCE: Setup or clean-up assistance CODE: 05 LYING TO SITTING: LYING TO SITTING ON SIDE OF BED - STEP 1: Does the patient complete the activity by him/herself with no assistance (physical, verbal/nonverbal cueing, setup/clean-up)? No. LYING TO SITTING ON SIDE OF BED - STEP 2: Does the patient need only setup/clean-up assistance from one helper? Yes. 1. [id number] ADMISSION PERFORMANCE: Setup or clean-up assistance CODE: 05 SIT TO STAND: SIT TO STAND - STEP 1: Does the patient complete the activity by him/herself with no assistance (physical, verbal/nonverbal cueing, setup/clean-up)? No. SIT TO STAND - STEP 2: Does the patient need only setup/clean-up assistance from one helper? Yes. 1. [id number] ADMISSION PERFORMANCE: Setup or clean-up assistance CODE: 05 TRANSFERS: BED, CHAIR: CHAIR/[id number] TRANSFER - STEP 1: Does the patient complete the activity by him/herself with no assistance (physical, verbal/nonverbal cueing, setup/clean-up)? No. CHAIR/[id number] TRANSFER - STEP 2: Does the patient need only setup/clean-up assistance from one helper? Yes. 1. [id number] ADMISSION PERFORMANCE: Setup or clean-up assistance CODE: 05 TRANSFER TOILET: TOILET TRANSFER - STEP 1: Does the patient complete the activity by him/herself with no assistance (physical, verbal/nonverbal cueing, setup/clean-up)? No. TOILET TRANSFER - STEP 2: Does the patient need only setup/clean-up assistance from one helper? Yes. 1. [id number] ADMISSION PERFORMANCE: Setup or clean-up assistance CODE: 05 TRANSFERS: CAR: Not assessed/no information CODE: - WALK 10 FEET: Not assessed/no information CODE: - 1 STEP (CURB): Not assessed/no information CODE: - PICKING UP OBJECT: Not assessed/no information CODE: - DOES THE PATIENT USE A WHEELCHAIR/SCOOTER? Q1. DOES THE PATIENT USE A WHEELCHAIR/SCOOTER?: Yes CODE: 1 WHEEL 50 FEET WITH TWO TURNS: WHEEL 50 FEET WITH TWO TURNS - STEP 1: Does the patient complete the activity by him/herself with no assistance (physical, verbal/nonverbal cueing, setup/clean-up)? No. WHEEL 50 FEET WITH TWO TURNS - STEP 2: Does the patient need only setup/clean-up assistance from one helper? Yes. 1. [id number] ADMISSION PERFORMANCE: Setup or clean-up assistance CODE: 05 INDICATE THE TYPE OF WHEELCHAIR/SCOOTER USED: RR1. INDICATE THE TYPE OF WHEELCHAIR/SCOOTER USED.: Manual CODE: 1 WHEEL 150 FEET: Not assessed/no information CODE: - INDICATE THE TYPE OF WHEELCHAIR/SCOOTER USED: SS1. INDICATE THE TYPE OF WHEELCHAIR/SCOOTER USED.: Manual CODE: 1 BLADDER AND BOWEL: H350. BLADDER CONTINENCE (3-DAY ASSESSMENT PERIOD): Always continent (no documented incontinence) CODE: 0 H400. BOWEL CONTINENCE (3-DAY ASSESSMENT PERIOD): Always continent CODE: 0 SIGNATURE PANEL: The following modified sections: 1. [id number] Admission Performance, 1. [id number] Admission Performance, 1. [id number] Admission Performance, 1. [id number] Admission Performance, 1. [id number] Admission Performance, 1. [id number] Admission Performance, 1. [id number] Admission Performance, 1. [id number] Admission Performance , 1. [id number] Admission Performance, 1. [id number] Admission Performance, 1. [id number] Admission Performanc e, 1. [id number] Admission Performance, Q1. Does the patient use a wheelchair/scooter?, 1. [id number] Admis lauren Performance, RR1. Indicate the type of wheelchair/scooter used., Code, SS1. Indicate the type of wheelchair/scooter used., H350. Bladder Continence (3-day assessment period), H400. Bowel Continence (3-day assessment period) were [electronically] signed by Talha [email or web address] on WedMay 01 2020 16 :25:31 T-0500 (Central Daylight Time)
--- NOTE | 2020-05-01 17:47 | R.PN ---
PROGRESS NOTES ENCOUNTER DATE AND TIME: 05/01/2020 17:44 (CDT) NAME DESIREE CARVALHO DATE OF : 1950 DATE OF ADMISSION: 04/18/2020 10:47 (CDT) RIGHT FEMUR FRACTURECHIEF COMPLAINT: Right hip fracture. SUBJECTIVE: Pt denied any depression. Pt denied any Shortness of Breath. Ambulated 20' with standby assistance using a rolling walker. Self-propelled 750' with wheelchair an d independence. WBC 11.6, Hgb 11.1, prealbumin 30.4. VITAL SIGNS Temperature: 97.4 F SBP/DBP: 118/64 Pulse: 58 Resp: 16 MEDICATION ALLERGIES: XANAX ZINC ENVIRONMENTAL ALLERGIES: - Substance Allergies None Known - Other Allergies None Known NURSING: - Shower allowing shower - Skin care per protocol PRECAUTIONS: - Anterior Hip Precaution No abduction No active extension No adduction across midline No external rotation No hip flexion >90 degrees No internal rotation - Posterior Hip Precaution No adduction across midline No external rotation No hip flexion >90 degrees No internal rotation No wheel chair propulsion - Weight Bearing Precaution WBAT left LE ACTIVITIES OOB only with supervision THERAPIES: - Dietary and Nutrition Adequate Nutrition. Nutritional Education. Nutritional Supplements. PHYSICAL EXAM - Gen Alert and awake Lying in bed No apparent distress Oriented to: person, time, and place - Skin No skin breakdown. Normacephalic - Eyes No abnormalities - ENMT No abnormalities - Neck No abnormalities No cervical adenopathy - CVS RRR - Chest No abnormalities - Resp Clear to auscultation - Abd Soft - GI Non distended Deferred - No abnormalities - Ext Right hip surgical site has good hemostasis. - MSK 4+/5 weakness in right lower extremity - Neuro 4/5 strength right lower extremity. - Psych No abnormalities ASSESSMENT: Pt. is a 70 yo Right-handed female of unknown race.On 04/06/2020 she was admitted to [facility] nd underwent emergency surgery for RIGHT FEMUR FRACTURE (Unilateral Hip Fracture) by DR. SULLIVAN.Pre -morbidly, Pt. was independent/mod-I in Communication, Safety Awareness, Social Cognition, and Transf ers Control; and she had good Endurance and Locomotion.Currently, she has deficits of Safety Awarenes s, Balance, Sphincter Control, Self-Care, and Endurance.Pt. is now referred to [facility] for acute in-patient rehabilitation in order to maximize patient's functional independenc e in activities of daily living, strength, ROM, and mobility.- Rehab Goal Patient has realistic goal of being discharged at assistance level 7-Ind to reside at Home with Fami ly/Relatives. MDM/PLAN: - Physical Therapy Decreased range of motion - to improve, our physical therapists will perform initial evaluation of p t's status upon admission and devise an individualized program for increasing patient's Range of Phillip on. Gait dysfunction - to improve, our physical therapists will perform initial evaluation of pt's statu s upon admission and devise an individualized program for Gait Training, and Wheel Chair mobility Need for home safety evaluation - to improve, our physical therapists will perform initial evaluatio n of pt's status upon admission and devise an individualized program for Home Evaluation Need in caregiver upon discharge - to improve, our physical therapists will perform initial evaluati on of pt's status upon admission and devise an individualized program for Caregiver Training New precaution - to improve, our physical therapists will perform initial evaluation of pt's status upon admission and devise an individualized program for Patient precaution education Poor balance - to improve, our physical therapists will perform initial evaluation of pt's status up on admission and devise an individualized program for Balance Training Poor endurance - to improve, our physical therapists will perform initial evaluation of pt's status upon admission and devise an individualized program for Endurance Training Weakness - to improve, our physical therapists will perform initial evaluation of pt's status upon a dmission and devise an individualized program for Aquatic Therapy, Neuromuscular Reeducation, and Str engthening Achieving independence - to improve, our physical therapists will perform initial evaluation of pt's status upon admission and devise an individualized program for Community Reintegration Activities - Occupational Therapy ADL deficits - to improve, our occupation therapists will perform initial evaluation of pt's status upon admission and devise an individualized program for Bathing, Bed mobility, Community Reintegratio n, Cooking, Dressing, Eating, Fine Motor Skills, Grooming, Homemaking, Kitchen Mobility, Laundry, Pat ient Education, Safety Awareness, Splinting - Positioning, Transfers(Toilet, Tub, Shower), and Wheel Chair Management Need for healthcare insurance sales agent - to improve, our occupation therapists will perform initial evaluation of pt's status upon admission and devise an individualized program for Caregiver Training Weakness - to improve, our occupation therapists will perform initial evaluation of pt's status upon admission and devise an individualized program for Aquatic Therapy, Balance, Endurance, UE ROM, and UE strengthening - Other See attached MAR (Medication Administration Record) - Anterior Hip Precaution No abduction No active extension No adduction across midline No external rotation No hip flexion >90 degrees No internal rotation - Diet - Liquid Texture Continue Regular - Tube Feed Continue N/A - Diet Type Continue Regular - Posterior Hip Precaution No adduction across midline No external rotation No hip flexion >90 degrees No internal rotation No wheel chair propulsion - Weight Bearing Precaution WBAT right LE - Skin care per protocol - Diet - Solid Texture Continue Regular - Shower allowing shower FUNCTIONAL STATUS: UPDATED AT WEEKLY TEAM CONFERENCE - Bladder Same accident frequency: 7-Ind - No accidents in the past 7 days - Bowel Same accident frequency: 7-Ind - No accidents in the past 7 days - Walking Same score based on distance walked: 0(N/A) - Wheelchair Same score based on distance traveled: 0(N/A) FUNCTIONAL STATUS: - Self-Care A. Eating Sushma B. Grooming Sushma C. Bathing Mary Kay D. Dressing - Upper sup E. Dressing - Lower modA F. Toileting modA - Sphincter Control G. Bladder control Sushma H. Bowel control Sushma - Transfers Control I. Bed/Chair/Wheelchair Mary Kay J. Toilet Mary Kay K. Tub/Shower modA - Locomotion L. Walk/Wheelchair (B) modA M. Stairs ADNO - Communication N. Comprehension (B) Ind O. Expression (B) Ind - Social Cognition P. Social Interaction Ind Q. Problem Solving Ind R. Memory Ind - Endurance Fair - Balance Fair - Safety Awareness Good QI SCORES: - Self-Care A. Eating 03-Partial/moderate assistance B. Oral hygiene 03-Partial/moderate assistance C. Toileting hygiene E. Shower/bathe self 02-Substantial/maximal assistance F. Upper body dressing 03-Partial/moderate assistance G. Lower body dressing 02-Substantial/maximal assistance H. Putting on/taking off footwear 88-Not attempted due to medical condition or safety concerns - Mobility A. Roll left and right 03-Partial/moderate assistance B. Sit to lying 03-Partial/moderate assistance C. Lying to sitting on side of bed 03-Partial/moderate assistance D. Sit to stand 02-Substantial/maximal assistance E. Chair/hpd-zp-[id number] transfer 02-Substantial/maximal assistance F. Toilet transfer G. Car transfer 88-Not attempted due to medical condition or safety concerns I. Walk 10 feet 88-Not attempted due to medical condition or safety concerns J. Walk 50 feet with two turns 88-Not attempted due to medical condition or safety concerns K. Walk 150 feet 88-Not attempted due to medical condition or safety concerns L. Walking 10 feet on uneven surfaces 88-Not attempted due to medical condition or safety concerns M. 1 step (curb) 88-Not attempted due to medical condition or safety concerns N. 4 steps 88-Not attempted due to medical condition or safety concerns O. 12 steps 88-Not attempted due to medical condition or safety concerns P. Picking up object 88-Not attempted due to medical condition or safety concerns R. Wheel 50 feet with two turns 88-Not attempted due to medical condition or safety concerns S. Wheel 150 feet 88-Not attempted due to medical condition or safety concerns - Bladder and Bowel Bladder continence Bowel continence - Endurance Fair - Balance Poor - Safety Awareness Fair CURRENT [facility]. DEFICITS: Self-Care, Mobility, Endurance, Balance, and Safety Awareness SIGNATURE PANEL: (CDT)
[2020-05-01] MEDS: ATORVASTATIN 10 MG TAB PO SCH (19:52)
[2020-05-02] MEDS: TRAZODONE 50 MG TABLET PO PRN (00:53)
[2020-05-02 07:01] VITALS: BP 127/69; TEMP 97.2
[2020-05-02] MEDS: predniSONE 20 MG TAB PO SCH (07:04)
[2020-05-02] MEDS: PANTOPRAZOLE 40MG TABLET PO SCH (07:04)
[2020-05-02] MEDS: DOXYCYCLINE 100 MG CAP PO SCH (07:04)
[2020-05-02] MEDS: FE SULF/FA/VIT B COMP & C TAB PO SCH (07:04)
[2020-05-02] MEDS: CRANBERRY FRUIT EXTRACT 200 MG CAP PO SCH (07:04)
[2020-05-02] MEDS: LIDOCAINE 4% PATCH TOP SCH (07:05)
[2020-05-02] MEDS: ENOXAPARIN 40 MG/0.4 ML SQ SCH (07:05)
[2020-05-02] MEDS: MELOXICAM 7.5 MG TAB PO SCH (07:05)
[2020-05-02] MEDS: GABAPENTIN 300 MG CAP PO SCH (07:05)
[2020-05-02] MEDS: FERROUS SULFATE 325 MG TAB PO SCH (07:05)
[2020-05-02] MEDS: FLUTICASONE 50MCG NASAL SPRAY NAS SCH (07:06)
[2020-05-02] MEDS: NYSTATIN PWDR 100000 UNIT/GM TOP SCH (07:07)
[2020-05-02] MEDS: PROMOD 30 ML DOSE PO SCH (07:07)
--- NOTE | 2020-05-08 10:41 | PAPE ---
POST ADMISSION PHYSICIAN EVALUATION PATIENT: [facility] MR# [id number] REFERRING DOCTOR DR. SULLIVAN PRIMARY CARE PHYSICIAN MADHAV ESTRADA EVALUATION DATE AND TIME 04/18/2020 17:42 (CDT) DESIREE MACHADO DATE OF 1950 AGE 70 PHONE SSN# [id number] GENDER female EVALUATING PHYSICIAN Dr. Moi Barry M.D. ADMISSION DIAGNOSIS: RIGHT FEMUR FRACTURE POST-ADMISSION FUNCTIONAL/MEDICAL STATUS: - Bladder Same accident frequency: Ind - No accidents in the past 7 days - Bowel Same accident frequency: Ind - No accidents in the past 7 days - Walking Same score based on distance walked: 0(N/A) - Wheelchair Same score based on distance traveled: 0(N/A) STATUS CHANGE EVALUATION: No change in Functional or Medical Status is identified compared with Pre-Admission screening. PATIENT NEEDS CLOSE MEDICAL SUPERVISION BY A REHABILITATION PHYSICIAN FOR: Coordination of Treatment Team Post-Op Complications PATIENT REQUIRES 24X7 REHAB NURSING FOR MEDICAL AND FUNCTIONAL MGT. OF THE FOLLOWING DEFICITS: Disease Management Medication Management Patient/Family Education Providing Safe Environment PATIENT REQUIRES INTENSIVE, COORDINATED INTERDISCIPLINARY APPROACH TO REHAB: Arranging Home Equipment/Services Discharge Planning Family Intervention/Training Vertical Mill Operator/Case Management LIST OF IDENTIFIED AND POTENTIAL PROBLEMS: Alteration in leisure activities Bladder, Incontinence Bowel, Incontinence Infection, Actual or Potential Mobility Impaired Pain, Alteration in Comfort Self Care Deficit Skin Integrity, Actual or Potential Urinary Tract Infection (UTI), Actual or Potential PATIENT COULD BE AT RISK FOR COMPLICATIONS FROM ADVERSE MEDICAL CONDITIONS DUE TO HIS/HER COMORBIDITI ES AND THE RIGORS OF THE INTENSIVE REHABILLITATION PROGRAM. METHODS OR INTERVENTIONS TO AVOID COMPLIC ATIONS INCLUDE: - Infection Clinical staff to assess and manage the signs and symptoms of infection including fever, redness, war mth, etc. - Urinary Tract Infection - Falls Patient will be evaluated for Fall Precautions and will be placed on Fall Precautions as indicated pe r protocol. - Skin Breakdown Nursing will assess skin daily using assessment tool and will place on Skin Breakdown Precautions as indicated per protocol. - Pain Clinical staff may employ non-medication methods such as massage, distraction, decrease stimulus, etc . as needed. Clinical staff will assess patient's pain level every shift per protocol to assess and e nsure pain management effectiveness. Medications will be given and the pain level re-assessed. PRELIMINARY PLAN OF CARE: - Physical Therapy Patient needs Physical Therapy for a daily minimum of 1.5 hours at least 5 out of 7 days, to improve: Mobility, Strengthening, Transfers, Stretching, ROM, Endurance, Ability to manage stairs, Gait, and Balance. - Speech Therapy Patient needs Speech Therapy for a daily minimum of 0.5 hours at least 5 out of 7 days, to improve: S wallowing, Cognition, Language Skills, and Compensatory Strategies. - Rehabilitation Nursing Patient requires 24x7 Rehabilitation Nursing for: Pain Issues, Identifying and preventing risk factor s, Monitoring and reporting current medical conditions, Assisting with ambulation and transfer, Sukh ting with all ADL-s, Teaching patients about disease process and medications, Family teaching, Provid ing safe environment, Bowel and Bladder Issues, Skin Integrity, and Medication Management. Patient needs Vertical Mill Operator and/or Case Management for: Discharge Planning, Arranging Home Equipmen t or Services, and Family Interventions. - Dietary and Nutrition Services Patient needs Dietary and Nutrition Services for: Adequate Nutrition, Nutritional Supplements, and Nu tritional Education. - Occupational Therapy Patient needs Occupational Therapy for a daily minimum of 1.5 hours at least 5 out of 7 days, to impr ove Activities of Daily Living, including: Eating, Grooming, Bathing, Dressing, Toileting, Toilet Tra nsfers, Community Reintegration, Higher functional activities, Adaptive Equipment, Splinting, Househo ld Tasks, and Other activities as determined. QI SCORES: - Self-Care A. Eating 03-Partial/moderate assistance B. Oral hygiene 03-Partial/moderate assistance C. Toileting hygiene E. Shower/bathe self 02-Substantial/maximal assistance F. Upper body dressing 03-Partial/moderate assistance G. Lower body dressing 02-Substantial/maximal assistance H. Putting on/taking off footwear 88-Not attempted due to medical condition or safety concerns - Mobility A. Roll left and right 03-Partial/moderate assistance B. Sit to lying 03-Partial/moderate assistance C. Lying to sitting on side of bed 03-Partial/moderate assistance D. Sit to stand 02-Substantial/maximal assistance E. Chair/ahk-tm-[id number] transfer 02-Substantial/maximal assistance F. Toilet transfer G. Car transfer 88-Not attempted due to medical condition or safety concerns I. Walk 10 feet 88-Not attempted due to medical condition or safety concerns J. Walk 50 feet with two turns 88-Not attempted due to medical condition or safety concerns K. Walk 150 feet 88-Not attempted due to medical condition or safety concerns L. Walking 10 feet on uneven surfaces 88-Not attempted due to medical condition or safety concerns M. 1 step (curb) 88-Not attempted due to medical condition or safety concerns N. 4 steps 88-Not attempted due to medical condition or safety concerns O. 12 steps 88-Not attempted due to medical condition or safety concerns P. Picking up object 88-Not attempted due to medical condition or safety concerns R. Wheel 50 feet with two turns 88-Not attempted due to medical condition or safety concerns S. Wheel 150 feet 88-Not attempted due to medical condition or safety concerns - Bladder and Bowel Bladder continence Bowel continence - Endurance Fair - Balance Poor - Safety Awareness Fair POTENTIAL FUNCTIONAL GOALS FOR PATIENT TO ACHIEVE BY DISCHARGE: - Safety Precaution Patient will remain free from falls or injury at time of discharge. - Bed Mobility Patient will perform bed mobility at 4-Mary Kay level of assistance. - Transfers Patient will complete transfers from bed to chair at 4-Mary Kay level of assistance. - Mobility Patient will ambulate 150 ft with 4-Mary Kay level of assistance with RW. PATIENT REHAB POTENTIAL Tomer CARVALHO is able and expected to receive 3 hours of individualized therapy daily on at least 5 of alexandra 7 days NSoledad CARVALHO's prognosis for significant practical improvement within a reasonable period of time appears Good Expected level of measurable improvement will be of a practical value to Tomer CARVALHO's functional capaci ty or adaptations to impairments Has a viable Discharge Plan Medically appropriate; condition is sufficiently stable to participate in intensive rehab program DISCHARGE PLAN: - Estimated Length of Stay (days) 14. - Consensus on plan Discharge plan has been discussed with primary caregiver. Patient/Family is in agreement with the chelle n. Primary caregiver is in agreement with the plan. - Patient/Family Goals Return home independently. - Planned Living Setting Upon Discharge Home, to live with Family/Relatives. Transitional Living. CONCLUSION ON REHABILITATION NECESSITY: I have evaluated patient's pre-admission functional status and, comparing it to the patient's post-ad mission functional status now, I conclude that the pre-admission assessment was accurate. Patient's c ondition on admission supports the medical necessity of admission to [facility]. It is safe to proceed with patient's therapy program. SIGNATURE PANEL: (CDT)
--- NOTE | 2020-05-08 10:42 | R.DS ---
DISCHARGE SUMMARY FACILITY [facility] MR# [id number] NAME DESIREE CORDOBA ADDRESS [address] [place]IP [address] PHONE DATE OF 1950 AGE 70 SSN# [id number] GENDER Female DEXTERITY Right-handed MARITAL STATUS Single (Never ) RACE Unknown race ENCOUNTER PHYSICIAN Dr. Moi Barry M.D. REFERRING DOCTOR DR. SULLIVAN REFERRING FACILITY [facility] PRIMARY CARE PHYSICIAN MADHAV ESTRADA DISCHARGE DIAGNOSIS: - Orthopaedic Disorders 08 - Unilateral Hip Fracture (08.11) RIGHT FEMUR FRACTURE. DATE OF ADMISSION 04/18/2020 10:47 (CDT) MEDICATION ALLERGIES: XANAX ZINC ENVIRONMENTAL ALLERGIES: - Substance Allergies None Known - Other Allergies None Known DISCHARGE MEDICATIONS: Other- ContinueSee attached MAR (Medication Administration Record). NURSING: - Shower allowing shower - Skin care per protocol PRECAUTIONS: - Anterior Hip Precaution No abduction No active extension No adduction across midline No external rotation No hip flexion >90 degrees No internal rotation - Posterior Hip Precaution No adduction across midline No external rotation No hip flexion >90 degrees No internal rotation No wheel chair propulsion - Weight Bearing Precaution WBAT left LE ACTIVITIES OOB only with supervision THERAPIES: - Dietary and Nutrition Adequate Nutrition Nutritional Education Nutritional Supplements HISTORY OF PRESENT ILLNESS: Pt. is a 70 yo Right-handed female of unknown race.On 04/06/2020 she was admitted to [facility] a nd underwent emergency surgery for RIGHT FEMUR FRACTURE (Unilateral Hip Fracture) by DR. SULLIVAN.Pre -morbidly, Pt. was independent/mod-I in Communication, Safety Awareness, Social Cognition, and Transf ers Control; and she had good Endurance and Locomotion.Currently, she has deficits of Safety Awarenes s, Balance, Sphincter Control, Self-Care, and Endurance.Pt. is now referred to [facility] for acute in-patient rehabilitation in order to maximize patient's functional independenc e in activities of daily living, strength, ROM, and mobility.- Rehab Goal Patient has realistic goal of being discharged at assistance level 7-Ind to reside at Home with Fami ly/Relatives. Layne Cordoba is a 69 year -old female that lives independently at home in her one-story apartment. She has no stairs to get inside. She was able to do daily activated on her own prior to her femur fracture. PMH of COPD and extensive bilateral lower extremity orthopedic history who presents with right proximal femur fracture. She says she took a step on a flat surface and heard a crack. She was in pain in the posterior hip, thigh and knee on the right side. Patient has not been able to bear weight since the injury. She has always performed all her own ADLs and IADLs. Prior to [facility] she was seeing her PCP regularly. She had surgery @ [facility] 04-06-20. She was d/c on 04/16/20 to [facility], which her and the family stated was a mix up. They had requested to come to us for acute inpatient rehab. The patient would most definitely benefit from acute inpatient rehab and has become severely debilitated and unable to live at her prior level of activity at home getting her stronger to be back living at home independently is our goal. It is reasonable and necessary for the patient to come to acute inpatient rehab for approximately 7-10 days in order to return to her prior level of care. She now being transferred to [facility] Inpatient rehabilitation and is medically stable with relatively stable labs. She is now medically stable but in need of 24 hour nursing, doctor supervision and oversight while receiving active and participate in 3 hours of therapy a day/15 hours per week and receive care with intensive interdisciplinary approach. COVID-19 screening performed; spoke with patient via phone. Patient denies new onset of fever, cough, difficulty breathing, sore throat, body aches and non-allergy nasal congestion in the past 24 hours. Patient denies travel outside of [place] in the past 14 days. Patient denies any contact with someone who has a confirmed diagnosis of or is under investigation for COVID-19 in the past 14 days. Patient has been tested negative for COVID- 19.HOSPITAL COURSE: ANTERIOR HIP PRECAUTION: On 04/18/2020 the following precautions were added for the patient: Anterior Hip Precaution - No inte rnal rotation, Anterior Hip Precaution - No adduction across midline, Anterior Hip Precaution - No hi p flexion >90 degrees, Anterior Hip Precaution - No abduction, Anterior Hip Precaution - No active ex tension, and Anterior Hip Precaution - No external rotation. On 04/21/2020 the following precautions were added for the patient: Anterior Hip Precaution - No abd uction, Anterior Hip Precaution - No active extension, Anterior Hip Precaution - No adduction acros s midline, Anterior Hip Precaution - No external rotation, Anterior Hip Precaution - No hip flexion >90 degrees, and Anterior Hip Precaution - No internal rotation. The following precautions were removed for the patient: Anterior Hip Precaution - No abduction, Anter ior Hip Precaution - No active extension, Anterior Hip Precaution - No adduction across midline, Ante rior Hip Precaution - No external rotation, Anterior Hip Precaution - No hip flexion >90 degrees, Ant erior Hip Precaution - No internal rotation, Anterior Hip Precaution - No abduction, Anterior Hip Pr ecaution - No active extension, Anterior Hip Precaution - No adduction across midline, Anterior Hip Precaution - No external rotation, Anterior Hip Precaution - No hip flexion >90 degrees, and Anter ior Hip Precaution - No internal rotation. On 04/18/2020 the following precautions were added for the patient: Posterior Hip Precaution - No ext ernal rotation, Posterior Hip Precaution - No adduction across midline, Posterior Hip Precaution - No hip flexion >90 degrees, Posterior Hip Precaution - No wheel chair propulsion, and Posterior Hip Pre caution - No internal rotation. On 04/21/2020 the following precautions were added for the patient: Posterior Hip Precaution - No ad duction across midline, Posterior Hip Precaution - No external rotation, Posterior Hip Precaution - No hip flexion >90 degrees, Posterior Hip Precaution - No internal rotation, and Posterior Hip Prec aution - No wheel chair propulsion. The following precautions were removed for the patient: Posterior Hip Precaution - No adduction acros s midline, Posterior Hip Precaution - No external rotation, Posterior Hip Precaution - No hip flexion >90 degrees, Posterior Hip Precaution - No internal rotation, Posterior Hip Precaution - No wheel ch air propulsion, Posterior Hip Precaution - No adduction across midline, Posterior Hip Precaution - No external rotation, Posterior Hip Precaution - No hip flexion >90 degrees, Posterior Hip Precautio n - No internal rotation, and Posterior Hip Precaution - No wheel chair propulsion. On 04/18/2020 the following precautions were added for the patient: Weight Bearing Precaution - WBAT left LE. On 04/18/2020 the following precautions were added for the patient: Weight Bearing Precaution - WBAT right LE. On 04/21/2020 the following precautions were removed for the patient: Weight Bearing Precaution - WB AT right LE. The following precautions were added for the patient: Weight Bearing Precaution - WBAT right LE. On 04/22/2020 the following precautions were removed for the patient: Weight Bearing Precaution - WBA T right LE. The following precautions were added for the patient: Weight Bearing Precaution - WBAT right LE. DIET - LIQUID TEXTURE: On 04/18/2020 Pt was upgraded to Regular Diet - Liquid Texture. DIET - SOLID TEXTURE: On 04/18/2020 Pt was upgraded to Regular Diet - Solid Texture. DIET TYPE: On 04/18/2020 Pt was upgraded to Regular Diet Type. POSTERIOR HIP PRECAUTION: TUBE FEED: On 04/18/2020 Pt was changed to N/A Tube Feed. WEIGHT BEARING PRECAUTION: DISCHARGE PHYSICAL EXAM - Gen Alert and awake Lying in bed No apparent distress Oriented to: person, time, and place - Skin No skin breakdown. Normacephalic - Eyes No abnormalities - ENMT No abnormalities - Neck No abnormalities No cervical adenopathy - CVS RRR - Chest No abnormalities - Resp Clear to auscultation - Abd Soft - GI Non distended Deferred - No abnormalities - Ext Right hip surgical site has good hemostasis. - MSK 4+/5 weakness in right lower extremity - Neuro 4/5 strength right lower extremity. - Psych No abnormalities FUNCTIONAL STATUS: - Self-Care A. Eating 6-Sushma B. Grooming 6-Sushma C. Bathing 4-Mary Kay D. Dressing - Upper 5-sup E. Dressing - Lower 4-Mary Kay F. Toileting 4-Mary Kay - Sphincter Control G. Bladder control 6-Sushma H. Bowel control 6-Sushma - Transfers Control I. Bed/Chair/Wheelchair 4-Mary Kay J. Toilet 4-Mary Kay K. Tub/Shower 4-Mary Kay - Locomotion L. Walk/Wheelchair (B) 4-Mary Kay M. Stairs 0-ADNO - Communication N. Comprehension (B) 7-Ind O. Expression (B) 7-Ind - Social Cognition P. Social Interaction 7-Ind Q. Problem Solving 7-Ind R. Memory 7-Ind - Endurance Fair - Balance Fair - Safety Awareness Good QI SCORES: - Self-Care A. Eating 03-Partial/moderate assistance B. Oral hygiene 03-Partial/moderate assistance C. Toileting hygiene E. Shower/bathe self 02-Substantial/maximal assistance F. Upper body dressing 03-Partial/moderate assistance G. Lower body dressing 02-Substantial/maximal assistance H. Putting on/taking off footwear 88-Not attempted due to medical condition or safety concerns - Mobility A. Roll left and right 03-Partial/moderate assistance B. Sit to lying 03-Partial/moderate assistance C. Lying to sitting on side of bed 03-Partial/moderate assistance D. Sit to stand 02-Substantial/maximal assistance E. Chair/[id number] transfer 02-Substantial/maximal assistance F. Toilet transfer G. Car transfer 88-Not attempted due to medical condition or safety concerns I. Walk 10 feet 88-Not attempted due to medical condition or safety concerns J. Walk 50 feet with two turns 88-Not attempted due to medical condition or safety concerns K. Walk 150 feet 88-Not attempted due to medical condition or safety concerns L. Walking 10 feet on uneven surfaces 88-Not attempted due to medical condition or safety concerns M. 1 step (curb) 88-Not attempted due to medical condition or safety concerns N. 4 steps 88-Not attempted due to medical condition or safety concerns O. 12 steps 88-Not attempted due to medical condition or safety concerns P. Picking up object 88-Not attempted due to medical condition or safety concerns R. Wheel 50 feet with two turns 88-Not attempted due to medical condition or safety concerns S. Wheel 150 feet 88-Not attempted due to medical condition or safety concerns - Bladder and Bowel Bladder continence Bowel continence - Endurance Fair - Balance Poor - Safety Awareness Fair DISCHARGE INSTRUCTIONS: - N/A Lovenox 40 mg sq daily. DISCHARGE PLAN, FOLLOW UP CARE PROVISIONS: - Estimated Length of Stay (days) 14. - Consensus on plan Discharge plan has been discussed with primary caregiver. Patient/Family is in agreement with the chelle n. Primary caregiver is in agreement with the plan. - Patient/Family Goals Return home independently. - Planned Living Setting Upon Discharge Home, to live with Family/Relatives. Transitional Living. SIGNATURE PANEL: (CDT)
== END 2020-05-02 08:40 | disposition home or self-care (01) | DRG 560 ==
LOC: 5TH 12:47
PROVIDERS: ADMIT Psychiatry & Neurology Neurology with Special Qualifications in Child Neurology; ATTEND Psychiatry & Neurology Neurology with Special Qualifications in Child Neurology
DX: S72.91XD Unspecified fracture of right femur, subsequent encounter for closed fracture with routine healing (principal); Z68.41 Body mass index [BMI] 40.0-44.9, adult; E66.9 Obesity, unspecified; J44.9 Chronic obstructive pulmonary disease, unspecified; F32.9 Major depressive disorder, single episode, unspecified; K21.9 Gastro-esophageal reflux disease without esophagitis; Z96.653 Presence of artificial knee joint, bilateral; Z60.2 Problems related to living alone; Z88.8 Allergy status to other drugs, medicaments and biological substances; Z20.828 Contact with and (suspected) exposure to other viral communicable diseases
CPT/HCPCS: 36415; 71045; 80048; 81001; 82040; 83735; 84134; 85025; 87077; 87086; 87088; 87186; 97110; 97116; 97161; 97530; 97542; J0696; J1650; J7512; U0002; U0003

== ENCOUNTER 2022-05-15 12:54 | Inpatient (IN) | payer OTHER ==
--- OUTSIDE RECORDS SUMMARY | 2022-05-15 13:11 | XMS REPORT | Continuity of Care Document ---
:1950 Author Organization [facility] t Address [address] [place] [address] Care Team Providers Name Role Phone Mora MARTINEZ, Annette Primary Care Physician PATRICK ROMAN Attending Clinician Unavailable MARICRUZ SULLIVAN Attending Clinician Unavailable JUAN MANUEL LOPEZ Attending Clinician Unavailable JUAN MANUEL LOPEZ Attending Clinician Unavailable RICKEY CUMMINGS Attending Clinician Unavailable RICKEY CUMMINGS Attending Clinician Unavailable Ernst Hopkins MD Attending Clinician Maricruz Godfrey MD Attending Clinician Alejandra Kye MD Attending Clinician Jb Rice MD Attending Clinician LIBBY DANIEL Attending Clinician Unavailable Lorraine Shaver MD Attending Clinician Libby Daniel DO Attending Clinician Susan Oates RN Attending Clinician MERCEDES ALEXIS Attending Clinician Unavailable Mercedes Alexis MD Attending Clinician Iris Krishnan MD Attending Clinician [phone] Grecia MARTINEZ, Aj Toribio Attending Clinician John MARTINEZ, Juan Manuel Lopez Attending Clinician Doctor Unassigned, Clymer Attending Clinician Unavailable c-Lab Attending Clinician Unavailable Patrick Roman MD Attending Clinician Shaquille-Ugojukamila RETURN TO VENDOR, Shibi Attending Clinician [phone] Vaccine, Gal [facility] Attending Clinician Unavailable Jaspal OROZCO, Arlene Edwards Attending Clinician Unavailable IRAM GUZMAN Attending Clinician Unavailable Veronica FAROOQ, Blake Edwards Attending Clinician Calvin Nguyen DO Attending Clinician Shaikh JUAN, Iram Attending Clinician Unknown, Attending Attending Clinician Unavailable Rylie Maloney Attending Clinician Nurse, [facility] Attending Clinician Unavailable RYLIE VILLALTA Attending Clinician Unavailable Provider, [facility] Attending Clinician Unavailable UNKNOWN, ATTENDING Attending Clinician Unavailable Laurie COYLE MD, Maricruz Attending Clinician REJI LUCIANO Attending Clinician Unavailable Reji Deutsch Attending Clinician Inna OROZCO, Aracely Schneider Attending Clinician Unavailable Kaitlin Nunes Attending Clinician Adeline October Attending Clinician ADELINEOctober Attending Clinician Unavailable JOHN BEAUCHAMP Attending Clinician Unavailable Nito RETURN TO VENDOR, John Attending Clinician Shy OROZCO, Nola Attending Clinician Unavailable Herb Langford MD Attending Clinician Pcp-Lab Attending Clinician Unavailable Rosetta Beauchamp MD Attending Clinician PRAVEEN AYALA Attending Clinician Unavailable Nette Reece PT Attending Clinician Unavailable Praveen Ayala MD Attending Clinician Aguilar QUIROZ, Terri Retana Attending Clinician Unavailable Patrice Sheikh PTA Attending Clinician Unavailable LUIS HALEY Attending Clinician Unavailable GENOVEVA LYONS Attending Clinician Unavailable Sean Shahid PT, Dinorah Attending Clinician Unavailable MARCELLA CAMPBELL Attending Clinician Unavailable Nurse, Pcp [facility] Team Attending Clinician Unavailab Pablo MARTINEZ, Alexandra Attending Clinician Geovanny Dong MD Attending Clinician Aly Barrett Attending Clinician Rain Florez RN Attending Clinician Shikha Remy MD Attending Clinician Rico Daniel MD Attending Clinician RICO DANIEL Attending Clinician Unavailable PATRICK ROMAN Admitting Clinician Unavailable MARICRUZ SULLIVAN Admitting Clinician Unavailable MARICRUZ GODFREY Admitting Clinician Unavailable Elisa MARTINEZ, Maricruz Olmos Admitting Clinician AJ PAIGE Admitting Clinician Unavailable Aj Paige MD Admitting Clinician ANNETTE PATTERSON Admitting Clinician Unavailable RICKEY CUMMINGS Admitting Clinician Unavailable Laurie COYLE MD, John Admitting Clinician Patrick Roman MD Admitting Clinician MARCELLA CAMPBELL Admitting Clinician Unavailable Shikha Remy MD Admitting Clinician SHIKHA REMY Admitting Clinician Unavailable Payers Payer Name Policy Type Policy Number Effective Date Expiration Date S ource MEDICARE B Cash Check CardROAD [id number] 2016 00:00:00 [place] [id number] 2016 00:00:00 [facility] [id number] 2017 MEDICAID 00:00:00 Problems Condition Condition Condition Status Onset Resolution Last Treating Co mments Source Name Details Category Date Date Treatment Clinician Date Perforated Perforated Disease Active 2021-07 U nivers diverticul diverticul 0-17 it y of um um 00:00: [address] Branch Diverticul Diverticul Disease Active 2021-07 Overview : Univers itis large itis large 0-17 Formattin ity of intestine intestine 00:00: g of this [place] w/o w/o 00 note Medical perforatio perforatio might be Branch n or n or different abscess abscess from the w/bleeding w/bleeding original. Added automatic ally from request for surgery [id number] Pain of Pain of Disease Active 2021-07 Univers right right 0-11 ity of lower lower 00:00: [place] extremity extremity 00 [facility] Branch Wound Wound Disease Active Univers infection infection 2-22 ity of 00:00: [place] 00 Medical Branch Abscess of Abscess of Disease Recurre Univers right right nce 2-22 ity of lower lower 00:00: [place] extremity extremity 00 [facility] Branch Bandemia Bandemia Disease Active Unive rs 2-22 ity of 00:00: [place] 00 Medical Branch Wound Wound Disease Active 2020-07 Univers infection infection 1-28 ity of after after 00:00: [place] surgery surgery 00 Medical Branch Surgical Surgical Disease Active 2020-07 Unive rs site site 1-27 ity of infection infection 00:[place] Non-healin Non-healin Disease Active 2020-07 U nivers g wound of g wound of 0-05 it y of lower lower 00:00: [place] extremity, extremity, 00 Me dical right, right, Branch initial initial encounter encounter Nonhealing Nonhealing Disease Active 2020-07 U nivers surgical surgical 0-05 ity of wound, wound, 00:00: [place] initial initial 00 Medical encounter encounter Bran ch Atypical Atypical Disease Active Unive rs femoral femoral 6-21 ity of fracture, fracture, 00:[place] unspec[place] unspecifie 00 Me dical d, d, Branch subsequent subsequent encounter encounter for for fracture fracture with with nonunion nonunion Other Other Disease Active Univers fracture fracture 9-27 ity of of right of right 00:00: [place] femur, femur, 00 Medical initial initial Branch encounter encounter for closed for closed fracture fracture Vitamin D Vitamin D Disease Active Uni vers deficiency deficiency 5-15 it y of 00:00: [place] 00 Medical Branch 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 00:[place]: [place] with is with 00 Medical current current Branch pathologic pathologic al al fracture fracture with with routine routine healing healing 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 5-14 ity of 00:00: [place] 00 Medical Branch SHAMIR on SHAMIR on Disease Active Univers CPAP CPAP 5-14 ity of 00:00: 00 Medical Branch Current Current Disease Active Univers chronic chronic 5-14 ity of use of use of 00:00: [place] systemic systemic 00 Medica l steroids steroids Branch Mixed Mixed Disease Active Univers hyperlipid hyperlipid 5-14 it y of emia emia 00:00: [place] Medical Branch Gastroesop Gastroesop Disease Active U nivers hageal hageal 5-14 ity of reflux reflux 00:00: [place] disease disease 00 Medical without without Branch esophagiti esophagiti s s Fracture, Fracture, Disease Active Uni vers femur femur 5-13 ity of 00:00: [place] Medical Branch Closed Closed Disease Active Overview: Univer s displaced displaced 5-13 Formattin i ty of oblique oblique 00:00: g of this [place] fracture fracture 00 note Medica l of shaft of shaft might be Bran ch of left of left different femur, femur, from the initial initial original. encounter encounter Added automatic ally from request for surgery [id number] Arthritis Arthritis Disease Active Overview: Univers of left of left 3-09 Formattin ity o f hip hip 00:00: g of this [place] 00 note Medical might be Branch different from the original. Added automatic ally from request for surgery [id number] Osteoarthr Osteoarthr Disease Active U nivers itis of itis of 4-04 ity of left hip, left hip, 00:00[place] unspecif[place] unspecifie 00 Me dical d d Branch osteoarthr osteoarthr itis type itis type Left-sided Left-sided Disease Active U nivers low back low back 4-04 ity of pain with pain with 00:00[place] left-sided left-sided 00 Me dical sciatica sciatica Branch Trochanter Trochanter Disease Active U nivers ic ic 4-04 ity of bursitis bursitis 00:00: [place] of left of left 00 Medical hip hip Branch S/P S/P Disease Active 2015-0 Univers revision revision 3-16 ity of of total of total 00:00: [place] knee knee 00 Medical Branch Femur Femur Disease Active 2013-07 Univers fracture, fracture, 0-03 ity of right right 00:00: [place] 00 Medical Branch 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 00:00: [place] Total knee Total knee Disease Active 2010-07 U nivers replacemen replacemen 1-08 it y of t status t status 00:00: [place] 00 Medical Branch 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 6-03 it y of disorder, disorder, 00:00: [place] single single 00 Medical episode, episode, Branch mild mild Allergies, Adverse Reactions, Alerts Allergy Allergy Status Severity Reaction(s) Onset Inactive Treating Comm ents Source Name Type Date Date Clinician Zinc Propensi Active Rash Univers ty to 209 ity of adverse 00:00: [place] reaction 00 Medical s to Branch drug ZINC DRUG Active High Rash Univers INGREDI 2 ity of 00:00: [place] 00 Medical Branch Alprazol Propensi Active Hallucinatio Univers am ty to ns 02-15 ity of adverse 00:00: [place] reaction 00 Medical s to Branch drug ALPRAZOL DRUG Active High Hallucinates [place] AM INGREDI 02-15 ity of 00:00: [place] 00 [facility] Social History Social Habit Start Date Stop Date Quantity Comments Source Exposure to 2022-05-01 2022-05-11 Not sure [facility] SARS-CoV-2 00:00:00 03:11:00 [facility] (event) Branch Alcohol intake 2022-05-11 2022-05-11 Ex-drinker [facility] 00:00:00 00:00:00 (finding) [place] [facility] Tobacco use and 2022-01-27 2022-01-27 Smokeless tobacco Un iversity of exposure 00:00:00 00:00:00 non-user [facility] Tobacco Comment 2022-01-27 2022-01-27 sidestream Universit y of 00:00:00 00:00:00 exposure [facility] Sex [birth year] Universit y of 00:00:00 00:00:00 [place] [facility] Smoking Status Start Date Stop Date Source Never smoked tobacco [facility] Medications Ordered Filled Start Stop Current Ordering Indication Dosage Frequency Signature Comments Components Source Medication Medication Date Date Medication? Clinician (SIG) Name Name pantoprazol 2021-07 Yes 40mg Take 1 Univ ers e 40 mg EC 1-04 tablet by ity of tablet 00:00: mouth in [place] 00 the Medical morning. Branch KCL 20 2021-07 Yes 40meq Take 30 mL Univ ers mEq/15 mL 1-04 by mouth ity of solution 00:00: in the [place] 00 morning. Medical Branch doxycycline 2021-07 Yes 100mg Take 1 Uni vers hyclate 100 1-03 capsule by it y of mg capsule 00:00: mouth [place] 00 every 12 Medical (twelve) Branch hours. pregabalin 2021-07 Yes 100mg Take 1 Univ ers 100 mg 1-03 capsule by ity of capsule 00:00: mouth in [place] 00 the Medical morning Branch and 1 capsule in the evening. ipratropium 2021-07 Yes 3mL Inhale 3 [place] -albuteroL 1-03 mL every 6 ity of 0.5 mg-3 00:00: (six) [place] mg(2.5 mg 00 hours as Medica l base)/3 mL needed for [facility] nebulizer Wheezing solution or Bronchospa sm. celecoxib 2021-07 Yes 100mg Take 1 Unive rs 100 mg 1-03 capsule by ity of capsule 00:00: mouth in [place] 00 the Medical morning Branch and 1 capsule in the evening. Take with meals. ferrous 2021-07 Yes 325mg Take 1 Univers sulfate 325 -03 tablet by ity of mg (65 mg 00:00: mouth in [facility] s iron) 00 the Medical tablet morning Branch and 1 tablet at noon and 1 tablet in the evening. Take with meals. cephALEXin 2021-07- Yes 500mg Take 1 Uni vers 500 mg -03 - capsule by ity of capsule 00:00: 05:59 mouth [place] 00 :00 every 6 Medical (six) Branch hours. Sliding 2021-07 Yes Subcutaneo Univ ers Scale 1-02 us, TID ity of Insulin - 13:00: MEALS+HS, [place] as Lispro 00 First dose Medical (HumaLOG) + (after Branch Fsbg last Testing modificati on) on Wed05/13/22 at 0800, Until Discontinu ed, Routine gabapentin 2021-07 Yes 300mg 300 mg, Uni vers (NEURONTIN) 07-12 Oral, TID, it y of capsule 300 19:00: First dose [place] mg 00 (after Medical last Branch modificati on) on Wed05/12/22 at 1400, Until Discontinu ed, Routine cephALEXin 2021-07- Yes 500mg 500 mg, Un [place] (KEFLEX) 07-12 Oral, Q6H, ity of capsule 500 17:00: 17:59 360 doses, [place] mg 00 :00 First dose Medical on Wed05/12/22 at 1200, Last dose on Wed08/10/22 at 0600, EDGAR
Re ason for Anti-Infec tive: Documented Infection< br>Documen palma Infection Site: Bone
Duration of Therapy: Other (see Comments) doxycycline 2021-07- Yes 100mg 100 mg, U nivers hyclate 07-12 Oral, ity of (Vibramycin 16:00: 11:59 Q12HA2, [place] ) capsule 00 :00 180 doses, Medi nancy 100 mg First dose Branch on Wed05/12/22 at 1100, Last dose on Wed08/09/22 at 1800, EDGAR
Re ason for Anti-Infec tive: Documented Infection< br>Documen palma Infection Site: Bone
Du ration of Therapy: Other (see Comments) gabapentin 2021-07- No 100mg 100 mg, [place] (NEURONTIN) 07-12 Oral, BID, i ty of capsule 100 06:30: 13:27 First dose [place] mg 00 :57 on Wed Medical 05/12/22 at Branch 0130, Until Discontinu ed, Routine ferrous 2021-07 Yes 325mg 325 mg, Univer s sulfate 0-31 Oral, TID ity of tablet 325 17:00: MEALS, [place] mg 00 First dose Medical on Wed05/11/22 at 1200, Until Discontinu ed, Routine HYDROmorpho 2021-07- No .5mg 0.5 mg, Un [place] ne 0-28 10-30 Slow IV ity of (DILAUDID) 22:26: 22:25 Push, [place] injection 07 :07 [id number], Medica l 0.5 mg Starting Branch on Wed05/08/22 at 1726, Until Wed05/10/22 at 1725, Routine, Pain (scale 7-10), second line therapy MUST USE ORAL NORCO FIRST!!
Use approved by (Faculty): GENERAL SURGERY
General surgeon approving: Sandeep GONGmorpho 2021-07- Yes .5mg 0.5 mg, [place] ne 005-10 Slow IV ity of (DILAUDID) 21:46: 21:45 Push, [place] injection 15 :15 Q4HPRN, Medical 0.5 mg Starting Branch on Wed05/08/22 at 1646, Until Wed05/10/22 at 1645, Routine, Pain (scale 7-10)
U se approved by (Faculty): GENERAL SURGERY
General surgeon approving: Sandeep bahenaacilli 2021-07- Yes 3.375g 3.375 g, Univers n-tazobacta 05-12 IV ity of m (ZOSYN) 04:30: 04:29 Piggyback, [place] 3.375 g in 00 :00 Q8H ABX, Medic al NaCl 0.9% 12 doses, Branc h (NS) 50 mL First dose MINI-BAG on Wed05/07/22 at 2330, Last dose on Wed05/11/22 at 1530, Administer over 4 Hours, 50 mL
Reas on for Anti-Infec tive: Documented Infection& lt;br>Docu mented Infection Site: Skin / Soft Tissue
Duration of Therapy: 7 days piperacilli 2021-07- Yes 3.375g 3.375 g, Univers n-tazobacta 005-12 IV ity of m (ZOSYN) 04:30: 04:29 Piggyback, [place] 3.375 g in 00 :00 Q8H ABX, Medic al NaCl 0.9% 12 doses, Branc h (NS) 50 mL First dose MINI-BAG on Wed05/07/22 at 2330, Last dose on Wed05/11/22 at 1530, Administer over 4 Hours, 50 mL
Reas on for Anti-Infec tive: Documented Infection& lt;br>Docu mented Infection Site: Skin / Soft Tissue
Duration of Therapy: 7 days piperacilli 2021-07- No 3.375g 3.375 g, Univers n-tazobacta 005-12 IV ity of m (ZOSYN) 04:30: 00:43 Piggyback, [place] 3.375 g in 00 :00 Q8H ABX, Medic al NaCl 0.9% 12 doses, Branc h (NS) 50 mL First dose MINI-BAG on Apryl 05/07/22 at 2330, Last dose on 05/11/22 at 1530, Administer over 4 Hours, 50 mL
Reas on for Anti-Infec tive: Documented Infection& lt;br>Docu mented Infection Site: Skin / Soft Tissue
Duration of Therapy: 7 days D10W 10 % 2021-07 Yes at 40 Univers IV infusion 0-28 mL/hr, IV ity of 03:15: Infusion, [address] , Starting Branch on Wed05/07/22 at 2215, Until Discontinu ed, Routine D10W 10 % 2021-07 Yes at 40 Univers IV infusion 0-28 mL/hr, IV ity of 03:15: Infusion, [address] , Starting Branch on Wed05/07/22 at 2215, Until Discontinu ed, Routine D10W 10 % 2021-07- No at 40 Univer s IV infusion 0-28 11-01 mL/hr, IV it y of 03:15: 17:14 Infusion, [place] 00 :00 [facility] , Starting Branch on Wed05/07/22 at 2215, Until 05/12/22 at 1214, Routine piperacilli 2021-07- No 3.375g 3.375 g, Univers n-tazobacta 05-07 IV ity of m (ZOSYN) 20:30: 22:05 Piggyback, [place] 3.375 g in 00 :00 ONCE, 1 Medica l NaCl 0.9% dose, On Branch (NS) 50 mL Apryl MINI-BAG 05/07/22 at 1530, Administer over 30 Minutes, 50 mL
Reas on for Anti-Infec tive: Documented Infection< br>Documen palma Infection Site: Skin / Soft Tissue
Duration of Therapy: 7 days lactated 2021-07 Yes 500mL at 20 Univers ringers IV 0-27 mL/hr, 500 ity of infusion 19:15: mL, IV [place] 500 mL 00 Infusion, Medical CONTINUOUS Branch , Starting on Apryl 05/07/22 at 1415, Until Discontinu ed, Routine, PACU lactated 2021-07 Yes 500mL at 20 Univers ringers IV 0-27 mL/hr, 500 ity of infusion 19:15: mL, IV [place] 500 mL 00 Infusion, Medical CONTINUOUS Branch , Starting on Apryl 05/07/22 at 1415, Until Discontinu ed, Routine, PACU HYDROcodone 2021-07- No 1{tbl} 1 tablet, Univers -acetaminop 0-27 10-27 Oral, ity of hen (NORCO 19:15: 19:35 ONCE, 1 [place] 5) 5-325 mg 00 :00 dose, On Medi nancy tablet 1 Apryl Branch tablet 05/07/22 at 1415, Routine, PACU FENTanyl PF 2021-07- No 25ug 25 mcg, [place] (SUBLIMAZE 0- 10-27 Slow IV ity o f (PF)) 19:00: 19:59 [place], [place] injection 26 :24 Q5MIN PRN, Medi nancy 25 mcg 4 doses, Branch Starting on Wed05/07/22 at 1400, Until Apryl 05/07/22 at 1459, Routine, Pain (scale 4-6), PACU D10W 10 % 2021-07- No at 75 Univer s IV infusion 0-27 10-28 mL/hr, IV it y of 16:45: 03:14 Infusion, [place] 00 :25 CONTINUOUS Medical , Starting Branch on Wed05/07/22 at 1145, Until Wed05/07/22 at 2214, Routine pregabalin 2021-07 Yes 100mg 100 mg, Uni vers (LYRICA) 0-27 Oral, BID, ity o f capsule 100 01:00: First dose [place] mg 00 (after Medical last Branch modificati on) on Wed05/06/22 at 2000, Until Discontinu ed, Routine pregabalin 2021-07 Yes 100mg 100 mg, Uni vers (LYRICA) 0-27 Oral, BID, ity o f capsule 100 01:00: First dose [place] mg 00 (after Medical last Branch modificati on) on Wed05/06/22 at 1999, Until Discontinu ed, Routine pregabalin 2021-07 Yes 100mg 100 mg, Uni vers (LYRICA) 0-27 Oral, BID, ity o f capsule 100 01:00: First dose [place] mg 00 (after Medical last Branch modificati on) on Wed05/06/22 at 1999, Until Discontinu ed, Routine D10W 10 % 2021-07- No at 50 Univer s IV infusion 0-27 10-27 mL/hr, IV it y of 00:00: 16:32 Infusion, [place] 00 :12 CONTINUOUS Medical , Starting Branch on Wed05/06/22 at 1900, Until Apryl 05/07/22 at 1132, Routine HYDROmorpho 2021-07- No .5mg 0.5 mg, Un [place] ne 0- 10-28 Slow IV ity of (DILAUDID) 19:27: 19:26 Push, [place] injection 39 :39 Q4HPRN, Medical 0.5 mg Starting Branch on Wed05/06/22 at 1427, Until Wed05/08/22 at 1426, Routine, Pain (scale 7-10)
U se approved by (Faculty): GENERAL SURGERY
General surgeon approving: Sandeep fluconazole 2021-07- No 400mg 400 mg, U nivers (DIFLUCAN) 0- 10-27 Oral, ity of tablet 400 15:45: 19:09 DAILY, 5 [place] mg 00 :38 doses, Medical First dose Branch on Wed05/06/22 at 1045, Last dose on Wed05/10/22 at 0900, EDGAR
Re ason for Anti-Infec tive: Documented Infection< br>Documen palma Infection Site: Abdominal< br>Duratio n of Therapy: Other (see Comments) Sliding 2021-07 Yes Subcutaneo Univ ers Scale 0-26 us, Q4H, ity of Insulin - 01:00: First dose [place] Lispro 00 (after Medical (HumaLOG) + last Branch Fsbg modificati Testing on) on Wed05/05/22 at 1999, Until Discontinu ed, Routine Sliding 2021-07 Yes Subcutaneo Univ ers Scale 0-26 us, Q4H, ity of Insulin - 01:00: First dose [place] Lispro 00 (after Medical (HumaLOG) + last Branch Fsbg modificati Testing on) on Wed05/05/22 at 1999, Until Discontinu ed, Routine Sliding 2021-07- No Subcutaneo Uni vers Scale 0-26 11-02 us, Q4H, ity of Insulin - 01:00: 03:15 First dose [place] Lispro 00 :50 (after Medical (HumaLOG) + last Branch Fsbg modificati Testing on) on Wed05/05/22 at 1999, Until Discontinu ed, Routine acetaminoph 2021-07 Yes 650mg 650 mg, Un [place] en 0-25 Oral, Q6H, ity of (TYLENOL) 17:00: First dose [place] tablet 650 00 on Wed Medical mg 05/05/22 Branch at 1200, Until Discontinu ed, Routine acetaminoph 2021-07 Yes 650mg 650 mg, Un [place] en 0-25 Oral, Q6H, ity of (TYLENOL) 17:00: First dose [place] tablet 650 00 on Wed Medical mg 05/05/22 Branch at 1200, Until Discontinu ed, Routine acetaminoph 2021-07 Yes 650mg 650 mg, Un [place] en 0-25 Oral, Q6H, ity of (TYLENOL) 17:00: First dose [place] tablet 650 00 on Wed Medical mg 05/05/22 Branch at 1200, Until Discontinu ed, Routine ketorolac 2021-07- No 15mg 15 mg, Unive rs (TORADOL) 0-05-07 Slow IV ity of injection 16:16: 16:15 Push, [place] 15 mg 30 :30 Q8HPRN, Medical Starting Branch on Wed05/05/22 at 1116, Until Apryl 05/07/22 at 1115, Routine, Pain (scale 7-10) pantoprazol 2021-07 Yes 40mg 40 mg, Univ ers e 0-25 Oral, ity of (PROTONIX) 14:00: DAILY, [place] EC tablet 00 First dose Medi nancy 40 mg on [facility] 05/05/22 at 0900, Until Discontinu ed, Routine pantoprazol 2021-07 Yes 40mg 40 mg, Univ ers e 0-25 Oral, ity of (PROTONIX) 14:00: DAILY, [place] EC tablet 00 First dose Medi nancy 40 mg on [facility] 05/05/22 at 0900, Until Discontinu ed, Routine pantoprazol 2021-07 Yes 40mg 40 mg, Univ ers e 0-25 Oral, ity of (PROTONIX) 14:00: DAILY, [place] EC tablet 00 First dose Medi nancy 40 mg on [facility] 05/05/22 at 0900, Until Discontinu ed, Routine magnesium 2021-07 No 2g 2 g, IV Univ ers sulfate in 0-25 10-25 Piggyback, it y of water 2 12:15: 12:51 Administer [place] as gram/50 mL 00 :00 over 60 Medica l (4 %) Minutes, Branch infusion 2 ONCE, 1 g dose, On Wed05/05/22 at 0715, Routine potassium 2021-07- No 20meq 20 mEq, IV Univers chloride in 0-25 10-25 Piggyback, i ty of water (KCL) 12:15: 13:56 ONCE, 1 [place] 20 mEq/100 00 :00 dose, On Medic al mL RTU IVPB [facility] 20 mEq 05/05/22 at 0715, 100 mL ketorolac 2021-07- No 15mg 15 mg, Unive rs (TORADOL) 0-25 10-25 Slow IV ity of injection 07:00: 06:57 Push, [place] 15 mg 00 :00 ONCE, 1 Medical dose, On Branch Wed05/05/22 at 0200, Routine D10W 10 % 2021-07- No at 100 Unive rs IV infusion 0-24 10-25 mL/hr, IV it y of 22:45: 17:11 Infusion, [place] 00 :03 CONTINUOUS Medical , Starting Branch on Wed05/04/22 at 1745, Until Wed05/05/22 at 1211, Routine acetaminoph 2021-07- No 1000mg 1,000 mg, Univers en ADULT 0-24 10-25 IV ity of (OFIRMEV) 19:00: 11:33 Infusion, [place] injection 00 :00 at 400 Medical 1,000 mg mL/hr Branch Administer over 15 Minutes, Q8H, 3 doses, First dose (after last reorder) on Wed05/04/22 at 1400, Last dose on Wed05/05/22 at 0600, Routine
Indicatio n: Perioperat sarabjit Patient NaCl 154 2021-07- No IV Univers mEq in D10W 0-24 10-24 Infusion, it y of 1,000 mL IV 02:00: 21:45 CONTINUOUS [place] Solution 00 :28 , Starting Medic al on [facility] 05/03/22 at 2100, Until Wed05/04/22 at 1645, 1,000 mL, at 100 mL/hr morphine ER 2021-07 Yes 15mg 15 mg, Univ ers (MS CONTIN) 0-24 Oral, ity of 12 hr 01:00: Q12H, [place] tablet 15 00 First dose Medi nancy mg on [facility] 05/03/22 at 1999, Until Discontinu ed, Routine morphine ER 2021-07 Yes 15mg 15 mg, Univ ers (MS CONTIN) 0-24 Oral, ity of 12 hr 01:00: Q12H, [place] tablet 15 00 First dose Medi nancy mg on [facility] 05/03/22 at 2000, Until Discontinu ed, Routine morphine ER 2021-07 Yes 15mg 15 mg, Univ ers (MS CONTIN) 0-24 Oral, ity of 12 hr 01:00: Q12H, [place] tablet 15 00 First dose Medi nancy mg on [facility] 05/03/22 at 2000, Until Discontinu ed, Routine pregabalin 2021-07- No 50mg 50 mg, Univ ers (LYRICA) 0-24 10-26 Oral, BID, ity of capsule 50 01:00: 19:23 First dose [place] mg 00 :30 on [facility] 05/03/22 Branch at 2000, Until Discontinu ed, Routine celecoxib 2021-07 Yes 100mg 100 mg, Univ ers (CELEBREX) 0-23 Oral, BID ity of capsule 100 22:00: [place]ALS, [place] mg 00 First dose Medical on [facility] 05/03/22 at 1700, Until Discontinu ed, Routine celecoxib 2021-07 Yes 100mg 100 mg, Univ ers (CELEBREX) 0-23 Oral, BID ity of capsule 100 22:00: [place]ALS, [place] mg 00 First dose Medical on [place] [facility] 05/03/22 at 1700, Until Discontinu ed, Routine celecoxib 2021-07 Yes 100mg 100 mg, Univ ers (CELEBREX) 0-23 Oral, BID ity of capsule 100 22:00: [place]ALS, [place] mg 00 First dose Medical on [place] [facility] 05/03/22 at 1700, Until Discontinu ed, Routine acetaminoph 2021-07 No 1000mg 1,000 mg, Univers en ADULT 0-23 10-24 IV ity of (OFIRMEV) 19:00: 11:10 [place]fusion, [place] injection 00 :00 at 400 Medical 1,000 mg mL/hr Branch Administer over 15 Minutes, Q8H, 3 doses, First dose (after last reorder) on [place] 05/03/22 at 1400, Last dose on Wed05/04/22 at 0600, Routine
Indicatio n: Perioperat sarabjit Patient HYDROcodone 2021-07 Yes 1{tbl} 1 tablet, Univers -acetaminop 0-23 Oral, ity of hen (NORCO) 16:59: Q4HPRN, [place] 10-325 mg 28 Starting Medica l tablet 1 on [place] tablet 05/03/22 at 1159, Until Discontinu ed, Routine, Pain (scale 4-6) HYDROcodone 2021-07 Yes 1{tbl} 1 tablet, Univers -acetaminop 0-23 Oral, ity of hen (NORCO) 16:59: Q4HPRN, [place] 10-325 mg 28 Starting Medica l tablet 1 on [place] tablet 05/03/22 at 1159, Until Discontinu ed, Routine, Pain (scale 4-6) HYDROcodone 2021-07 Yes 1{tbl} 1 tablet, Univers -acetaminop 0-23 Oral, ity of hen (NORCO) 16:59: Q4HPRN, [place] 10-325 mg 28 Starting Medica l tablet 1 on [place] [facility] tablet 05/03/22 at 1159, Until Discontinu ed, Routine, Pain (scale 4-6) D10W 0.9% 2021-07- No 1000mL 1,000 mL, Univers NaCl (NS) 0-23 10-24 at 100 ity of 1000 mL IV 12:45: 03:18 mL/hr, IV [place] infusion 00 :04 Infusion, Medica l CONTINUOUS Branch , Starting on [place] 05/03/22 at 0745, Until [place] 05/03/22 at 2218 D5W 0.9% 2021-07- No 1000mL at 100 Univ ers NaCl (NS) 0-23 10-23 mL/hr, ity of IV infusion 07:45: 11:45 1,000 mL, [place] 1,000 mL 00 :05 IV Medical Infusion, Branch CONTINUOUS , Starting on [place] 05/03/22 at 0245, Until [place] 05/03/22 at 0645, Routine glucagon 2021-07 Yes 1mg 1 mg, Univers (GLUCAGEN 0-23 Intramuscu ity of DIAGNOSTIC 06:35: lar, PRN, [place] KIT) 32 Starting Medical injection 1 on [facility] 05/03/22 at 0135, Until Discontinu ed, EDGAR, Blood Glucose < or = 70 mg/dL and patient is unable to swallow or has mental changes. dextrose 50 2021-07 Yes 25mL 25 mL, Univ ers % in water 0-23 Slow IV ity of (D50W) 06:35: Push, PRN, [place] injection 32 Starting Medica l 25 mL on [facility] 05/03/22 at 0135, Until Discontinu ed, EDGAR, Blood Glucose < or = 70 mg/dL and patient is unable to swallow or has mental status changes. glucagon 2021-07 Yes 1mg 1 mg, Univers (GLUCAGEN 0-23 Intramuscu ity of DIAGNOSTIC 06:35: lar, PRN, [place] KIT) 32 Starting Medical injection 1 on [facility] 05/03/22 at 0135, Until Discontinu ed, EDGAR, Blood Glucose < or = 70 mg/dL and patient is unable to swallow or has mental changes. dextrose 50 2021-07 Yes 25mL 25 mL, Univ ers % in water 0-23 Slow IV ity of (D50W) 06:35: Push, PRN, [place] injection 32 Starting Medica l 25 mL on [facility] 05/03/22 at 0135, Until Discontinu ed, EDGAR, Blood Glucose < or = 70 mg/dL and patient is unable to swallow or has mental status changes. glucagon 2021-07 Yes 1mg 1 mg, Univers (GLUCAGEN 0-23 Intramuscu ity of DIAGNOSTIC 06:35: lar, PRN, [place] KIT) 32 Starting Medical injection 1 on [place] Branch mg 05/03/22 at 0135, Until Discontinu ed, EDGAR, Blood Glucose < or = 70 mg/dL and patient is unable to swallow or has mental changes. dextrose 50 2021-07 Yes 25mL 25 mL, Univ ers % in water 0- Slow IV ity of (D50W) 06:35: Push, PRN, [place] injection 32 Starting Medica l 25 mL on [facility] 05/03/22 at 0135, Until Discontinu ed, EDGAR, Blood Glucose < or = 70 mg/dL and patient is unable to swallow or has mental status changes. HYDROmorpho 2021-07- No .5mg 0.5 mg, Un [place] ne 0-24 Slow IV ity of (DILAUDID) 19:25: 19:24 Push, [place] injection 45 :45 Q4HPRN, Medical 0.5 mg Starting Branch on 05/02/22 at 1425, Until 05/04/22 at 1424, Routine, Pain (scale 7-10)
U se approved by (Faculty): GENERAL SURGERY
General surgeon approving: elisa ketorolac 2021-07- No 15mg 15 mg, Unive rs (TORADOL) 005-02 Intramuscu ity of injection 18:30: 19:03 lar, Q6H [place] 15 mg 00 :47 ABX, 20 Medical doses, Branch First dose (after last modificati on) on 05/02/22 at 1330, Last dose on [place] 05/07/22 at 0730, Routine lactated 2021-07- No 1000mL at 100 Univ ers ringers IV 0- 10-23 mL/hr, ity of infusion 14:45: 06:35 1,000 mL, [place] 1,000 mL 00 :55 IV Medical Infusion, Branch CONTINUOUS , Starting on [facility] 05/02/22 at 0945, Until 05/03/22 at 0135, Routine KCL 20 2021-07 Yes 40meq 40 mEq, Univers mEq/15 mL 0-22 Oral, ity of solution 40 14:00: DAILY, [place] mEq 00 First dose Medical on [facility] Branch 05/02/22 at 0900, Until Discontinu ed, Routine KCL 20 2021-07 Yes 40meq 40 mEq, Univers mEq/15 mL 0-22 Oral, ity of solution 40 14:00: DAILY, [place] mEq 00 First dose Medical on [facility] Branch 05/02/22 at 0900, Until Discontinu ed, Routine KCL 20 2021-07 Yes 40meq 40 mEq, Univers mEq/15 mL 0-22 Oral, ity of solution 40 14:00: DAILY, [place] mEq 00 First dose Medical on [facility] Branch 05/02/22 at 0900, Until Discontinu ed, Routine acetaminoph 2021-07 No 1000mg 1,000 mg, Univers en ADULT 05-02 IV ity of (OFIRMEV) 19:00: 10:52 Infusion, [place] injection 00 :00 at 400 Medical 1,000 mg mL/hr Branch Administer over 15 Minutes, Q8H, 3 doses, First dose (after last reorder) on Wed05/01/22 at 1400, Last dose on Wed05/02/22 at 0600, Routine
Indicatio n: Perioperat sarabjit Patient magnesium 2021-07 No 2g 2 g, IV Univ ers sulfate in 05-01 Piggyback, it y of water 2 14:00: 14:44 Administer [place] gram/50 mL 00 :00 over 60 Medica l (4 %) Minutes, Branch infusion 2 ONCE, 1 g dose, On Wed05/01/22 at 0900, Routine potassium 2021-07 No 20meq 20 mEq, IV Univers chloride in 05-01 Piggyback, i ty of water (KCL) 14:00: 15:49 ONCE, 1 [place] 20 mEq/100 00 :00 dose, On Medic al mL RTU IVPB Fri Branch 20 mEq 05/01/22 at 0900, 100 mL acetaminoph 2021-07 1000mg 1,000 mg, Univers en ADULT - IV ity of (OFIRMEV) 19:00: 11:29 Infusion, [place] injection 00 :00 at 400 Medical 1,000 mg mL/hr Branch Administer over 15 Minutes, Q8H, 3 doses, First dose (after last reorder) on [place] 04/30/22 at 1400, Last dose on Wed05/01/22 at 0600, Routine
Indicatio n: Perioperat sarabjit Patient calcium 2021-07 No 1g 1 g, IV Univer s gluconate 1 0-20 10-20 Infusion, it y of g in NaCl 12:00: 12:01 at 100 [place] 50 mL 00 :00 mL/hr Medical (ISO-OSM) Administer Bran ch RTU IV over 30 infusion 1 Minutes, g ONCE, 1 dose, On [place] 04/30/22 at 0700, Routine potassium 2021-07 20meq 20 mEq, IV Univers chloride in 0-20 10-20 Piggyback, i ty of water (KCL) 12:00: 13:42 ONCE, 1 [place] 20 mEq/100 00 :00 dose, On Medic al mL RTU IVPB [place] Branch 20 mEq 04/30/22 at 0700, 100 mL potassium 2021-07 15mmol 15 mmol, U nivers phosphate 0-20 10-20 IV ity of 15 mmol in 12:00: 15:30 Piggyback, [place] NaCl 0.9% 00 :00 ONCE, 1 Medical (NS) 250 mL dose, On Bran ch piggyback [place] 04/30/22 at 0700, 250 mL D5W 0.9% 2021-07 No 1000mL at 100 [facility] ers NaCl (NS) 0-19 10-22 mL/hr, ity of IV infusion 21:45: 13:33 1,000 mL, [place] 1,000 mL 00 :57 IV Medical Infusion, Branch CONTINUOUS , Starting on Wed04/29/22 at 1645, Until 05/02/22 at 0833, Routine dextrose 50 2021-07- No 1{syrin 50 mL (1 Univers % in water 0-19 10-19 ge} Syringe), ity of (D50W) 21:30: 20:56 Slow IV [place] injection 00 :00 Push, Medical 50 mL ONCE, 1 Branch dose, On Wed04/29/22 at 1630, Routine calcium 2021-07 No 1g 1 g, IV Univer s gluconate 1 04-29 Infusion, it y of g in NaCl 20:30: 21:23 at 100 [place] 50 mL 00 :00 mL/hr Medical (ISO-OSM) Administer Bran ch RTU IV over 30 infusion 1 Minutes, g ONCE, 1 dose, On Wed04/29/22 at 1530, Routine metoprolol 2021-07 No 5mg 5 mg, Unive rs (LOPRESSOR) 04-29 Intravenou i ty of injection 5 20:30: 20:11 s, ONCE, 1 [place] mg 00 :00 dose, On Medical [facility] Branch 04/29/22 at 1530, Routine magnesium 2021-07 No 2g 2 g, IV Univ ers sulfate in 04-29 Piggyback, it y of water 2 20:30: 22:28 Administer [place] gram/50 mL 00 :00 over 60 Medica l (4 %) Minutes, Branch infusion 2 ONCE, 1 g dose, On [facility] 04/29/22 at 1530, Routine acetaminoph 2021-07 No 1000mg 1,000 mg, Univers en ADULT 04-30 IV ity of (OFIRMEV) 19:00: 11:38 Infusion, [place] injection 00 :00 at 400 Medical 1,000 mg mL/hr Branch Administer over 15 Minutes, Q8H, 3 doses, First dose (after last reorder) on Wed04/29/22 at 1400, Last dose on [place] 04/30/22 at 0600, Routine
Indicatio n: Perioperat sarabjit Patient morpHINE (4 2021-07 No 4mg 4 mg, Slow Univers mg/mL) 05-02 IV Push, ity of injection 4 01:15: 19:26 Q2HPRN, [place] mg 00 :09 Starting Medical on Tue Branch 04/28/22 at 2015, Until 05/02/22 at 1426, Routine, Pain (scale 7-10) phenoL 2021-07 Yes [id number] 1{spray 1 Sophia, Univers (SORE 0-19 } Oral, PRN, ity of THROAT 01:03: Starting [place] (PHENOL)) 41 on [facility] Medical 1.4 % spray 04/28/22 Bran ch bottle 1 at 2002, Sophia Until Discontinu ed, Routine, Sore throat phenoL 2021-07 Yes [id number] 1{spray 1 [place], Univers (SORE 0-19 } Oral, PRN, ity of THROAT 01:03: Starting [place] (PHENOL)) 41 on [facility] Medical 1.4 % spray 04/28/22 Bran ch bottle 1 at 2002, Sophia Until Discontinu ed, Routine, Sore throat phenoL 2021-07 Yes [id number] 1{spray 1 [place], Univers (SORE 0-19 } Oral, PRN, ity of THROAT 01:03: Starting [place] (PHENOL)) 41 on [facility] Medical 1.4 % spray 04/28/22 Bran ch bottle 1 at 2002, Sophia Until Discontinu ed, Routine, Sore throat potassium 2021-07- No 20meq 20 mEq, IV Univers chloride in 04-29 Piggyback, i ty of water (KCL) 23:00: 01:09 ONCE, 1 [place] 20 mEq/100 00 :00 dose, On Medic al mL RTU IVPB Wed 20 mEq 04/28/22 at 1800, 100 mL calcium 2021-07- No 1g 1 g, IV Univer s gluconate 1 04-28 Infusion, it y of g in NaCl 21:45: 22:45 at 100 [place] 50 mL 00 :00 mL/hr Medical (ISO-OSM) Administer Bran ch RTU IV over 30 infusion 1 Minutes, g ONCE, 1 dose, On Wed04/28/22 at 1645, Routine lactated 2021-07- No [id number] 1000mL at 999 Univers ringers IV 0-18 10-18 mL/hr, ity of infusion 21:30: 22:00 1,000 mL, [place] 1,000 mL 00 :00 Intravenou Medic al s, ONCE, 1 Branch dose, On Wed04/28/22 at 1630, Routine levalbutero 2021-07- No 1.25mg 1.25 mg, Univers l (XOPENEX) 005-01 Inhalation i ty of nebulizer 20:15: 12:02 , Q6H, [place] solution 00 :24 First dose Medic al 1.25 mg (after Branch last modificati on) on Wed04/28/22 at 1515, Until Discontinu ed, Routine acetaminoph 2021-07- Yes 1000mg 1,000 mg, Univers en ADULT 004-29 IV ity of ([facility]) 19:00: 18:59 Infusion, [place] injection 00 :00 at 400 Medical 1,000 mg mL/hr Branch Administer over 15 Minutes, Q8H, 3 doses, First dose (after last reorder) on Wed04/28/22 at 1400, Last dose on Wed04/29/22 at 0600, Routine
Indicatio n: Perioperat sarabjit Patient acetaminoph 2021-07 No 1000mg 1,000 mg, Univers en ADULT 04-29 IV ity of ([facility]) 19:00: 18:59 Infusion, [place] injection 00 :00 at 400 Medical 1,000 mg mL/hr Branch Administer over 15 Minutes, Q8H, 3 doses, First dose (after last reorder) on Wed04/28/22 at 1400, Last dose on Wed04/29/22 at 0600, Routine
Indicatio n: Perioperat sarabjit Patient lidocaine 2021-07 No 5mL 5 mL, Univer s 1% (PF) 04-28 Subcutaneo ity o f (XYLOCAINE) 15:45: 15:45 us, ONCE, [place] injection 5 00 :00 1 dose, On Me dical mL [facility] 04/28/22 at 1045, Routine NaCl 0.9% 2021-07 Yes 10mL 10 mL, Univer s (NS) 0-18 Slow IV ity of injection 15:41: Push, PRN, [place] 10 mL 17 Starting Medical on Wed04/28/22 at 1041, Until Discontinu ed, Routine, line maintenanc e NaCl 0.9% 2021-07 Yes 10mL 10 mL, Univer s (NS) 0-18 Slow IV ity of injection 15:41: Push, PRN, [place] 10 mL 17 Starting Medical on 04/28/22 at 1041, Until Discontinu ed, Routine, line maintenanc e NaCl 0.9% 2021-07 Yes 10mL 10 mL, Univer s (NS) 0-18 Slow IV ity of injection 15:41: Push, PRN, [place] 10 mL 17 Starting Medical on Wed Branch 04/28/22 at 1041, Until Discontinu ed, Routine, line maintenanc e NaCl 0.9% 2021-07 Yes 10mL 10 mL, Univer s (NS) 0-18 Slow IV ity of injection 15:41: Push, PRN, [place] 10 mL 17 Starting Medical on Wed Branch 04/28/22 at 1041, Until Discontinu ed, Routine, line maintenanc e pantoprazol 2021-07 Yes 40mg 40 mg, Univ ers e 0-18 Slow IV ity of (PROTONIX) 15:15: Push, [place] injection 00 Q24H, Medical 40 mg First dose Branch on Wed04/28/22 at 1015, Until Discontinu ed pantoprazol 2021-07- No 40mg 40 mg, Uni vers e 0-18 10-25 Slow IV ity of (PROTONIX) 15:15: 12:40 Push, [place] injection 00 :21 Q24H, Medical 40 mg First dose Branch on Wed04/28/22 at 1015, Until Discontinu ed lactated 2021-07- No 1000mL at 999 Univ ers ringers IV 0-18 10-18 mL/hr, ity of infusion 13:45: 14:00 1,000 mL, [place] 1,000 mL 00 :00 Intravenou Medic al s, ONCE, 1 Branch dose, On Wed04/28/22 at 0845, Routine sodium 2021-07 Yes Topical, Univers hypochlorit 0-18 QDAILYPRN, it y of e 0.025% 12:50: Starting [place] ([employer]) 05 on Wed Medical solution 04/28/22 Branch at 0750, Until Discontinu ed, Routine, [facility] magnesium 2021-07- No 1g 1 g, IV Univ ers sulfate in 0-18 10-18 Piggyback, it y of D5W 1 10:15: 11:22 ONCE, 1 [place] gram/100 mL 00 :00 dose, On [facility] RTU IV Wed Branch Piggyback 1 04/28/22 g at 0515, Administer over 60 Minutes, 100 mL lactated 2021-07- No [id number] 1000mL at 999 Univers ringers IV 0-18 10-18 mL/hr, ity of infusion 08:45: 09:00 1,000 mL, [place] 1,000 mL 00 :00 Intravenou Medic al s, ONCE, 1 Branch dose, On Wed04/28/22 at 0345, Routine NORepinephr 2021-07 Yes .05ug/k 0.05-1.5 Univers ine 16 mg 0-18 g/min mcg/kg/min ity of in NS 250 07:22: ?72.6 kg [place] mL infusion 24 (3.4031-10 Me dical RTU 2.0938 Branch mL/hr, rounded to 3.4-102.09 mL/hr), IV Infusion, TITRATE, MAP Goal > or = 65 mmHg, Starting on Wed04/28/22 at 0222
In itiate titration at 0.05 mcg/kg/min . &nb sp;Increas e by 0.01 mcg/kg/min every 30 seconds to 5 minutes as needed to reach and maintain goal blood pressure.& nbsp;&nbsp ;Maximum dose = 1.5 mcg/kg/min . &nb sp;If goal not maintained at maximum allowed dose, contact prescriber .
NORepinephr 2021-07- No .05ug/k 0.05-1.5 Univers ine 16 mg 0-18 10-19 g/min mcg/kg/min it y of in NS 250 07:22: 20:00 ?72.6 kg [place] mL infusion 24 :17 (3.4031-10 Me dical RTU 2.0938 Branch mL/hr, rounded to 3.4-102.09 mL/hr), IV Infusion, TITRATE, MAP Goal > or = 65 mmHg, Starting on Wed04/28/22 at 0222
In itiate titration at 0.05 mcg/kg/min . &nb sp;Increas e by 0.01 mcg/kg/min every 30 seconds to 5 minutes as needed to reach and maintain goal blood pressure.& nbsp;&nbsp ;Maximum dose = 1.5 mcg/kg/min . &nb sp;If goal not maintained at maximum allowed dose, contact prescriber .
piperacilli 2021-07- Yes 3.375g 3.375 g, Univers n-tazobacta 0-18 11-02 IV ity of m (ZOSYN) 06:30: 06:29 Piggyback, [place] 3.375 g in 00 :00 Q8H ABX, Medic al NaCl 0.9% 45 doses, Branc h (NS) 50 mL First dose MINI-BAG on Wed04/28/22 at 0130, Last dose on Wed05/12/22 at 1730, Administer over 4 Hours, 50 mL
Reas on for Anti-Infec tive: Documented Infection& lt;br>Docu mented Infection Site: Abdominal< br>Duratio n of Therapy: 14 days piperacilli 2021-07- No 3.375g 3.375 g, Univers n-tazobacta 0-18 -26 IV ity of m (ZOSYN) 06:30: 17:35 Piggyback, [place] 3.375 g in 00 :39 Q8H ABX, Medic al NaCl 0.9% 45 doses, Branc h (NS) 50 mL First dose MINI-BAG on Wed04/28/22 at 0130, Last dose on Wed05/12/22 at 1730, Administer over 4 Hours, 50 mL
Reas on for Anti-Infec tive: Documented Infection& lt;br>Docu mented Infection Site: Abdominal< br>Duratio n of Therapy: 14 days lactated 2021-07- No 1000mL at 999 Univ ers ringers IV 0-18 10-18 mL/hr, ity of infusion 06:00: 06:10 1,000 mL, [place] 1,000 mL 00 :00 Intravenou Medic al s, ONCE, 1 Branch dose, On Wed04/28/22 at 0100, Routine ipratropium 2021-07 Yes 3mL 3 mL, Unive rs -albuteroL 0-18 Inhalation ity of (DUONEB) 04:52: , Q6HPRN, [place] 0.5 mg-3 16 Starting Medical mg(2.5 mg on Mon Branch base)/3 mL 04/27/22 nebulizer at 2352, solution 3 Until mL Discontinu ed, Routine, Wheezing, Bronchospa sm ipratropium 2021-07 Yes 3mL 3 mL, Unive rs -albuteroL 0-18 Inhalation ity of (DUONEB) 04:52: , Q6HPRN, [place] 0.5 mg-3 16 Starting Medical mg(2.5 mg on Mon Branch base)/3 mL 04/27/22 nebulizer at 2352, solution 3 Until mL Discontinu ed, Routine, Wheezing, Bronchospa sm ipratropium 2021-07 Yes 3mL 3 mL, Unive rs -albuteroL 0-18 Inhalation ity of (DUONEB) 04:52: , Q6HPRN, [place] 0.5 mg-3 16 Starting Medical mg(2.5 mg on Mon Branch base)/3 mL 04/27/22 nebulizer at 2352, solution 3 Until mL Discontinu ed, Routine, Wheezing, Bronchospa sm ipratropium 2021-07 Yes 3mL 3 mL, Unive rs -albuteroL 0-18 Inhalation ity of (DUONEB) 04:52: , Q6HPRN, [place] 0.5 mg-3 16 Starting Medical mg(2.5 mg on Mon Branch base)/3 mL 04/27/22 nebulizer at 2352, solution 3 Until mL Discontinu ed, Routine, Wheezing, Bronchospa sm dexMEDEtomi 2021-07 Yes .2ug/kg 0.2-1.5 Univers dine 400 0-18 /h mcg/kg/hr ity of mcg in 0.9 04:40: ?72.6 kg [place] % NaCl 100 00 (3.63-27.2 Med ical mL 25 mL/hr, Branch (PRECEDEX) rounded to RTU IV 3.63-27.23 infusion mL/hr), IV Infusion, TITRATE, Sedation-R ASS score (0 to -1), Starting on Wed04/27/22 at 2340
In itiate infusion at 0.2 mcg/kg/hr and titrate by 0.1 mcg/kg/hr every 30 minutes to goal sedation score. Maximum dose = 1.5 mcg/kg/hr. If goal not maintained at maximum allowed dose, contact prescriber .
dexMEDEtomi 2021-07 No .2ug/kg 0.2-1.5 Univers dine 400 0-18 10-19 /h mcg/kg/hr ity o f mcg in 0.9 04:40: 14:11 ?72.6 kg [place] % NaCl 100 00 :56 (3.63-27.2 Med ical mL 25 mL/hr, Branch (PRECEDEX) rounded to RTU IV 3.63-27.23 infusion mL/hr), IV Infusion, TITRATE, Sedation-R ASS score (0 to -1), Starting on Wed04/27/22 at 2340
In itiate infusion at 0.2 mcg/kg/hr and titrate by 0.1 mcg/kg/hr every 30 minutes to goal sedation score. Maximum dose = 1.5 mcg/kg/hr. If goal not maintained at maximum allowed dose, contact prescriber .
propofoL IV 2021-07 Yes 5ug/kg/ 5-50 Uni vers infusion 0-18 min mcg/kg/min ity o f 04:26: ?72.6 kg [place] 03 (2.178-21. Medical 78 mL/hr, Branch rounded to 2.18-21.78 mL/hr), IV Infusion, TITRATE, Sedation-R ASS score (0 to -1), Starting on Wed04/27/22 at 2326
In itiate infusion at 5 mcg/kg/min and titrate by 5 mcg/kg/min every 30 seconds to 10 minutes to goal sedation score. Maximum dose = 50 mcg/kg/min . If goal not maintained at maximum allowed dose, contact prescriber . &nbs p;Tubing and unused portions of vials should be discarded after 12 hours.
propofoL IV 2021-07- No 5ug/kg/ 5-50 Un [place] infusion 0-18 10-19 min mcg/kg/min ity of 04:26: 14:11 ?72.6 kg [place] 03 :56 (2.178-21. Medical 78 mL/hr, Branch rounded to 2.18-21.78 mL/hr), IV Infusion, TITRATE, Sedation-R ASS score (0 to -1), Starting on Wed04/27/22 at 2326
In itiate infusion at 5 mcg/kg/min and titrate by 5 mcg/kg/min every 30 seconds to 10 minutes to goal sedation score. Maximum dose = 50 mcg/kg/min . If goal not maintained at maximum allowed dose, contact prescriber . &nbs p;Tubing and unused portions of vials should be discarded after 12 hours.
fentaNYL PF 2021-07 Yes 25ug/h 25-200 Un [place] (SUBLIMAZE) 0-18 mcg/hr ity of STD 2,500 04:19: (2.5-20 [place] mcg in NaCl 43 mL/hr), IV Me dical 0.9% (NS) Infusion, Branc h 250 mL TITRATE, infusion CPOT/Pain RTU Scale Goals Determined by Provider, Starting on Wed04/27/22 at 2319
In itiate infusion at 25 mcg/hr. Titrate by 25 mcg/hr every 1 minute to 15 minutes to identified goal pain and/or sedation scores. Maximum dose = 200 mcg/hr. If goal not maintained at maximum allowed dose, contact prescriber .
fentaNYL PF 2021-07 No 25ug/h 25-200 U nivers (SUBLIMAZE) 0-18 10-19 mcg/hr ity o f STD 2,500 04:19: 14:11 (2.5-20 [place] mcg in NaCl 43 :56 mL/hr), IV Me dical 0.9% (NS) Infusion, Branc h 250 mL TITRATE, infusion CPOT/Pain RTU Scale Goals Determined by Provider, Starting on Wed04/27/22 at 2319
In itiate infusion at 25 mcg/hr. Titrate by 25 mcg/hr every 1 minute to 15 minutes to identified goal pain and/or sedation scores. Maximum dose = 200 mcg/hr. If goal not maintained at maximum allowed dose, contact prescriber .
acetaminoph 2021-07 Yes 650mg 650 mg, Un elliott en 0-18 Oral, ity of (TYLENOL) 04:14: Q6HPRN, [place] tablet 650 26 Starting Medic al mg on Wed Branch 04/27/22 at 2314, Until Discontinu ed, Routine, Pain (scale 1-3), Temp > 38.5 C acetaminoph 2021-07- No 1000mg 1,000 mg, Univers en ADULT 04-28 IV ity of (OFIRMEV) 03:00: 18:30 Infusion, [place] injection 00 :00 at 400 Medical 1,000 mg mL/hr Branch Administer over 15 Minutes, Q8H, 3 doses, First dose on Wed04/27/22 at 2200, Last dose on Wed04/28/22 at 1400, Routine
Indicatio n: Perioperat sarabjit Patient bupivacaine 2021-07- No PRN, Unive rs (preserv 04-28 Starting ity of free) 02:05: 03:28 on [facility] (SENSORCAIN 00 :19 04/27/22 Medi nancy E MPF) 0.25 at 2105, Bran ch % (2.5 Intra-op mg/mL) 30 mL, bupivacaine liposome (PF) (EXPAREL (PF)) 1.3 % (13.3 mg/mL) 266 mg, NaCl 0.9% (NS) 50 mL sodium 2021-07- No PRN, Univers chloride 04-28 Starting ity of 0.9 % 00:43: 03:28 on [facility] irrigation 00 :19 04/27/22 Medic al solution at 1943, Branch Until Wed04/27/22 at 2228, Intra-op enoxaparin 2021-07 Yes 40mg 40 mg, Unive rs (LOVENOX) 0-17 Subcutaneo ity of injection 22:00: us, DAILY, [place] 40 mg 00 First dose Medical on Wed Branch 04/27/22 at 1700, Until Discontinu ed, Routine lactated 2021-07 Yes 1000mL at 100 Unive rs ringers IV 0-17 mL/hr, ity of infusion 22:00: 1,000 mL, [place] 1,000 mL 00 IV Medical Infusion, Branch CONTINUOUS , Starting on Wed04/27/22 at 1700, Until Discontinu ed, Routine enoxaparin 2021-07 Yes 40mg 40 mg, Unive rs (LOVENOX) 0-17 Subcutaneo ity of injection 22:00: us, DAILY, [place] 40 mg 00 First dose Medical on Wed Branch 04/27/22 at 1700, Until Discontinu ed, Routine enoxaparin 2021-07 Yes 40mg 40 mg, Unive rs (LOVENOX) 0-17 Subcutaneo ity of injection 22:00: us, DAILY, [place] 40 mg 00 First dose Medical on Wed04/27/22 at 1700, Until Discontinu ed, Routine enoxaparin 2021-07 Yes 40mg 40 mg, Unive rs (LOVENOX) 0-17 Subcutaneo ity of injection 22:00: us, DAILY, [place] 40 mg 00 First dose Medical on Wed Branch 04/27/22 at 1700, Until Discontinu ed, Routine lactated 2021-07 1000mL at 100 Univ ers [facility]ers IV 0-17 10-19 mL/hr, ity of infusion 22:00: 20:48 1,000 mL, [facility] as 1,000 mL 00 :58 IV Medical Infusion, Branch CONTINUOUS , Starting on Wed04/27/22 at 1700, Until Wed04/29/22 at 1548, Routine ondansetron 2021-07 Yes 4mg 4 mg, Slow Univers (ZOFRAN 0-17 IV Push, ity of (PF)) 21:41: Q6HPRN, [place] injection 4 21 Starting Medi nancy mg on Wed Branch 04/27/22 at 1641, Until Discontinu ed, Routine, Nausea and Vomiting (N/V) ondansetron 2021-07 Yes 4mg 4 mg, Slow Univers (ZOFRAN 0-17 IV Push, ity of (PF)) 21:41: Q6HPRN, [place] injection 4 21 Starting Medi nancy mg on Wed Branch 04/27/22 at 1641, Until Discontinu ed, Routine, Nausea and Vomiting (N/V) ondansetron 2021-07 Yes 4mg 4 mg, Slow Univers (ZOFRAN 0-17 IV Push, ity of (PF)) 21:41: Q6HPRN, [place] injection 4 21 Starting Medi nancy mg on Wed Branch 04/27/22 at 1641, Until Discontinu ed, Routine, Nausea and Vomiting (N/V) ondansetron 2021-07 Yes 4mg 4 mg, Slow Univers (ZOFRAN 0-17 IV Push, ity of (PF)) 21:41: Q6HPRN, [place] injection 4 21 Starting Medi nancy mg on Wed [place] 04/27/22 at 1641, Until Discontinu ed, Routine, Nausea and Vomiting (N/V) morpHINE (2021-07 Yes 4mg 4 mg, Slow [facility] mg/mL) 0-17 IV Push, ity of injection 4 21:28: Q4HPRN, [place] mg 34 Starting Medical on Wed [place] 04/27/22 at 1628, Until Discontinu ed, Routine, Pain (scale 7-10) morpHINE (4 2021-07- No 4mg 4 mg, Slow [facility] mg/mL) 0-17 10-19 IV Push, ity of injection 4 21:28: 01:07 Q4HPRN, [place] mg 34 :03 Starting Medical on Wed [place] 04/27/22 at 1628, Until Tu04/28/22 at 2007, Routine, Pain (scale 7-10) NaCl 0.9% 2021-07- No 1000mL at 999 Uni vers (NS) bolus 0-17 10-17 mL/hr, ity of infusion 15:15: 16:09 1,000 mL, [place] 1,000 mL 00 :00 IV Medical Infusion, Branch ONCE, 1 dose, On Wed04/27/22 at 1015, STAT NaCl 0.9% 2021-07- No 1000mL at 999 Uni vers (NS) bolus 0-17 10-17 mL/hr, ity of infusion 15:15: 16:09 1,000 mL, [place] 1,000 mL 00 :00 IV Medical Infusion, Branch ONCE, 1 dose, On Wed04/27/22 at 1015, STAT morpHINE (2021-07- No 4mg 4 mg, Slow [facility] mg/mL) 0-17 10-17 IV Push, ity of injection 4 13:45: 13:43 ONCE, 1 [place] mg 00 :00 dose, On Medical [facility] 04/27/22 at 0845, STAT piperacilli 2021-07- No 3.375g 3.375 g, Univers n-tazobacta 0-17 - IV ity of m (ZOSYN) 13:15: 14:24 Piggyback, [place] 3.375 g in 00 :00 ONCE, 1 Medica l NaCl 0.9% dose, On Branch (NS) 50 mL Mon MINI-BAG 04/27/22 at 0815, Administer over 30 Minutes, 50 mL
Reas on for Anti-Infec tive: Empiric Therapy for Suspected Infection< br>Empiric Therapy Site: Abdominal< br>Duratio n of therapy: 72 hours FENTanyl PF 2021-07- No 25ug 25 mcg, [facility] [place] (SUBLIMAZE 0-17 -17 Intramuscu it y of (PF)) 10:00: 09:59 lar, ONCE, [place] injection 00 :00 1 dose, On Medi nancy 25 mcg Wed Branch 04/27/22 at 0500, Routine doxycycline 2021-07- Yes 100mg 100 mg, U nivers hyclate 0- Oral, BID, ity o f (Vibramycin 17:30: 12:59 10 doses, [place] ) capsule 00 :00 First dose Medi nancy 100 mg on Wed Branch 04/22/22 at 1230, Last dose on 04/26/22 at 2000, EDGAR
Re ason for Anti-Infec tive: Documented Infection< br>Documen palma Infection Site: Bone
Du ration of Therapy: Other (see Comments) cephALEXin 2021-07- Yes 250mg 250 mg, [facility] [place] (KEFLEX) 0- Oral, QID, ity of capsule 250 17:30: 16:59 20 doses, [place] mg 00 :00 First dose Medical on Wed Branch 04/22/22 at 1230, Last dose on Wed04/27/22 at 0800, EDGAR
Re ason for Anti-Infec tive: Documented Infection< br>Documen palma Infection Site: Bone
Du ration of Therapy: Other (see Comments) pantoprazol 2021-07- No Take by Un [place] e sodium 0-12 10-12 mouth. ity of (PROTONIX 15:52: 00:00 [place] ORAL) 44 :00 [facility] pantoprazol 2021-07- No Take by Un [place]ott e sodium 0-12 10-12 mouth. ity of (PROTONIX 15:52: 00:00 [place] ORAL) 44 :00 Medical Branch pantoprazol 2021-07- No Take by Un [place] e sodium 0-12 10-12 mouth. ity of (PROTONIX 15:52: 00:00 [place] ORAL) 44 :00 [facility] Branch ketorolac 2021-07- No 15mg 15 mg, Unive rs (TORADOL) 0-12 -12 Intramuscu ity of injection 15:36: 15:45 lar, ONCE, [place] 15 mg 00 :00 1 dose, On Medical Wed Branch 04/22/22 at 1045, Routine cefadroxil 2021-07- Yes [id number] 500mg Take 1 [facility] 500 mg 007-22 capsule by ity of capsule 00:00: 05:59 mouth in [place] 00 :00 the [facility] and 1 capsule in the evening. Do all this for 90 days. cefadroxil 2021-07- Yes [id number] 500mg Take 1 [facility] 500 mg 007-22 capsule by ity of capsule 00:00: 05:59 mouth in [place] 00 :00 the [facility] and 1 capsule in the evening. Do all this for 90 days. cefadroxil 2021-07- Yes [id number] 500mg Take 1 [facility] 500 mg 007-22 capsule by ity of capsule 00:00: 05:59 mouth in [place] 00 :00 the [facility] and 1 capsule in the evening. Do all this for 90 days. cefadroxil 2021-07- Yes [id number] 500mg Take 1 [facility] 500 mg 0-06 11- capsule by ity of capsule 00:00: 05:59 mouth in [place] 00 :00 the [facility] and 1 capsule in the evening. Do all this for 90 days. cefadroxil 2021-07- Yes [id number] 500mg Take 1 [facility] 500 mg 0-06 11- capsule by ity of capsule 00:00: 05:59 mouth in [place] 00 :00 the [facility] and 1 capsule in the evening. Do all this for 90 days. cefadroxil 2021-07- Yes [id number] 500mg Take 1 [facility] 500 mg 007-22 capsule by ity of capsule 00:00: 05:59 mouth in [place] 00 :00 the Medical morning Branch and 1 capsule in the evening. Do all this for 90 days. cefadroxil 2021-07- Yes [id number] 500mg Take 1 [facility] 500 mg 007-22 capsule by ity of capsule 00:00: 05:59 mouth in [place] 00 :00 the [facility] morning Branch and 1 capsule in the evening. Do all this for 90 days. cefadroxil 2021-07- No [id number] 500mg Take 1 [facility] 500 mg 005-14 capsule by ity of capsule 00:00: 00:00 mouth in [place] 00 :00 the [facility] morning Branch and 1 capsule in the evening. Do all this for 90 days. HYDROcodone 2021-07- Yes [id number] 1{tbl} Take 1 U nivers -acetaminop 0-12 10-16 tablet by it y of hen 5-325 00:00: 04:59 mouth [place] mg tablet 00 :00 every 6 Medical (six) Branch hours as needed for Pain (scale 7-10) for up to 3 days. Indication s: acute pain HYDROcodone 2021-07- Yes 4647 1{tbl} Take 1 U nivers -acetaminop 0-12 10-16 tablet by it y of hen 5-325 00:00: 04:59 mouth [place] mg tablet 00 :00 every 6 Medical (six) Branch hours as needed for Pain (scale 7-10) for up to 3 days. Indication s: acute pain enoxaparin 2021-07 Yes 30mg 30 mg, Unive rs (LOVENOX) 0-11 Subcutaneo ity of injection 22:00: us, DAILY, [place] 30 mg 00 First dose Medical on Wed [place] 04/21/22 at 1700, Until Discontinu ed, Routine ceFEPIme 2021-07- No 1000mg 1,000 mg, U nivers (MAXIPIME) 0-11 10-12 IV ity of 1,000 mg in 20:45: 17:22 Piggyback, [place] NaCl 0.9% 00 :50 Q8H ABX, Medica l (NS) 50 mL 30 doses, Bran ch MINI-BAG First dose on Wed04/21/22 at 1545, Last dose on Wed05/01/22 at 0745, Administer over 4 Hours, 50 mL
Reas on for Anti-Infec tive: Documented Infection& lt;br>Docu mented Infection Site: Bone
Du ration of Therapy: 14 days diphenhydrA 2021-07 No 25mg 25 mg, Uni vers MINE 0-11 10-11 Oral, ONCE ity of (BENADRYL) 18:45: 19:09 NOW, 1 [place] tablet 25 00 :00 dose, On Medica l mg Wed04/21/22 at 1345, Routine tiotropium 2021-07 Yes 18ug 18 mcg, Univ ers (SPIRIVA) 0-11 Inhalation ity of inhalation 14:00: , DAILY, [place] 18 mcg 00 First dose Medical on [facility] 04/21/22 at 0900, Until Discontinu ed, Routine pantoprazol 2021-07 Yes 20mg 20 mg, Univ ers e 0-11 Oral, ity of (PROTONIX) 14:00: DAILY, [place] EC tablet 00 First dose Medi nancy 20 mg on [facility] 04/21/22 at 0900, Until Discontinu ed beclomethas 2021-07 Yes 1{puff} 1 Puff, Univers one 0-11 Inhalation ity of dipropionat 13:00: , BID, [place] (QVAR 00 First dose Medica l REDIHALER) on [facility] 40 04/21/22 mcg/actuati at 0800, on inhaler Until 1 Puff Discontinu ed, Routine sennosides- 2021-07 Yes 1{tbl} 1 tablet, Univers docusate 0-11 Oral, BID, ity o f sodium 13:00: First dose [place] (SENOKOT-S) 00 on [facility] Medica l 8.6-50 mg 04/21/22 Branch per tablet at 0800, 1 tablet Until Discontinu ed, Routine ceFEPIme 2021-07 No 1000mg 1,000 mg, U nivers (MAXIPIME) 0-11 10-11 IV ity of 1,000 mg in 13:00: 14:50 Piggyback, [place] NaCl 0.9% 00 :00 ONCE, 1 Medical (NS) 50 mL dose, On Branc h MINI-BAG Wed04/21/22 at 0800, Administer over 30 Minutes, 50 mL
Reas on for Anti-Infec tive: Documented Infection< br>Documen palma Infection Site: Bone<br&gt ;Duration of Therapy: 14 days vancomycin 2021-07- No 15mg/kg 1,000 mg Univers (VANCOCIN) 011 04-21 (rounded ity of 1,000 mg in 11:45: 21:11 from 1,089 [place] NaCl 0.9% 00 :22 mg = 15 Medical (NS) 250 mL mg/kg Branch VIAL-MATE ?72.6 kg), IV IV piggyback Piggyback, Q8H ABX, 42 doses, First dose on Wed04/21/22 at 0645, Last dose on Wed05/04/22 at 2245, Administer over 60 Minutes, 250 mL
Reas on for Anti-Infec tive: Documented Infection< br>Documen palma Infection Site: Bone
Du ration of Therapy: 14 days piperacilli 2021-07 No 3.375g 3.375 g, Univers n-tazobacta 0-11 04-21 IV ity of m (ZOSYN) 11:00: 12:17 [place]back, [place] 3.375 g in 00 :40 Q8H, 14 Medica l NaCl 0.9% doses, Branch (NS) 50 mL First dose MINI-BAG on Wed04/21/22 at 0600, Last dose on Wed04/25/22 at 1400, Administer over 240 Minutes, 50 mL
Reas on for Anti-Infec tive: Documented Infection& lt;br>Docu mented Infection Site: Bone
Du ration of Therapy: 14 days gabapentin 2021-07 Yes 100mg 100 mg, Uni vers (NEURONTIN) 0-11 Oral, BID, it y of capsule 100 06:15: First dose [place] mg 00 (after Medical last Branch modificati on) on Wed04/21/22 at 0115, Until Discontinu ed, Routine ondansetron 2021-07 Yes 4mg 4 mg, Unive rs (ZOFRAN) 0-11 Oral, ity of tablet 4 mg 05:03: Q8HPRN, [place] 05 Starting Medical on [facility] Branch 04/21/22 at 0003, Until Discontinu ed, Routine, Nausea and Vomiting (N/V) HYDROcodone 2021-07 Yes 1{tbl} 1 tablet, Univers -acetaminop 0-11 Oral, ity of hen (NORCO 05:01: Q6HPRN, [place] 5) 5-325 mg 47 Starting Medi nancy tablet 1 on [facility] tablet 04/21/22 at 0001, Until Discontinu ed, Routine, Pain (scale 4-6) ondansetron 2021-07- No 4mg 4 mg, Slow Univers (ZOFRAN 0-11 10-11 IV Push, ity of (PF)) 01:58: 01:59 ONCE, 1 [place] injection 4 00 :00 dose, On Medi nancy mg [facility] 04/20/22 at 2100, EDGAR FENTanyl PF 2021-07- No 50ug 50 mcg, [place] (SUBLIMAZE 0- 10-11 Slow IV ity o f (PF)) 00:53: 00:53 Push, [place] injection 00 :00 ONCE, 1 Medical 50 mcg dose, On Branch Wed04/20/22 at 2000, Routine pantoprazol 2021-07 Yes Take by Uni vers e sodium 0-11 mouth. ity of (PROTONIX 00:05: [place] ORAL) 36 Medical Branch vancomycin 2021-07- No 15mg/kg 1,000 mg Univers (VANCOCIN) 004-21 (rounded ity of 1,000 mg in 23:30: 00:30 from 1,089 [place] NaCl 0.9% 00 :00 mg = 15 Medical (NS) 250 mL mg/kg Branch VIAL-MATE ?72.6 kg), IV IV piggyback Piggyback, ONCE, 1 dose, On Wed04/20/22 at 1830, Administer over 60 Minutes, 250 mL
Reas on for Anti-Infec tive: Documented Infection< br>Documen palma Infection Site: Skin / Soft Tissue
Duration of Therapy: Other (see Comments) FENTanyl PF 2021-07- No 50ug 50 mcg, [facility] [place] (SUBLIMAZE 0-10 10-10 Slow IV ity o f (PF)) 22:15: 21:30 Push, [place] injection 00 :00 ONCE, 1 Medical 50 mcg dose, On Branch [facility] 04/20/22 at 1715, Routine FENTanyl PF 2021-07- No 50ug 50 mcg, [place] (SUBLIMAZE 0-10 10-10 Slow IV ity o f (PF)) 19:00: 19:05 Push, [place] injection 00 :00 ONCE, 1 Medical 50 mcg dose, On Branch [facility] 04/20/22 at 1400, Routine iopamidol 2021-07 No [id number] 90mL 90 mL, Univers (ISOVUE 0-10 10-10 Intravenou ity o f 370-500 mL) 17:45: 17:45 s, ONCE, 1 [place] injection 00 :00 dose, On Medica l 90 mL [facility] 04/20/22 at 1245, Routine ondansetron 2021-07- No 4mg 4 mg, Slow Univers (ZOFRAN 0-10 10-10 IV Push, ity of (PF)) 16:15: 16:03 ONCE, 1 [place] injection 4 00 :00 dose, On Medi nancy mg [facility] 04/20/22 at 1115, EDGAR morpHINE (4 2021-07- No 4mg 4 mg, Slow [facility] mg/mL) 0-10 10-10 IV Push, ity of injection 4 16:15: 16:03 ONCE, 1 [place] mg 00 :00 dose, On Medical [facility] 04/20/22 at 1115, STAT TAKE 1 2021-0 No CAPSULE BY 9-22 MOUTH THREE 00:00: TIMES DAILY 00 TAKE 1 2021-0 No TABLET BY 9-22 MOUTH FOUR 00:00: TIMES DAILY 00 TAKE 1 2021-0 No TABLET BY 8-16 MOUTH FOUR 00:00: TIMES DAILY 00 TAKE 1 2021-0 No 100 CAPSULE BY 8-15 MOUTH THREE 00:00: TIMES DAILY 00 TAKE 1 2021-0 No TABLET BY 8-15 MOUTH FOUR 00:00: TIMES DAILY 00 TAKE 1 2021-0 No 100 CAPSULE BY 8-15 MOUTH THREE 00:00: TIMES DAILY 00 pantoprazol 2021-0 No 1mg e 40 mg 7-26 tablet,lesa 00:00: yed release 00 ondansetron 2021-0 No 1mg HCl 4 mg 7-26 tablet 00:00: 00 &lt 2021-0 No 02-03 00:00: 00 TAKE 1 2021-0 No 100 TABLET BY 02-03 MOUTH EVERY 00:00: DAY 00 &lt 2021-0 No 100 02-03 00:00: 00 ADMINISTER 2021-0 No 40 0.4 ML 02-03 UNDER THE 00:00: SKIN DAILY 00 &lt 2021-0 No 02-03 00:00: 00 TAKE 1 2021-0 No 10 TABLET BY 02-03 MOUTH DAILY 00:00: 00 TAKE 1 2021-0 No 100 TABLET BY 02-03 MOUTH EVERY 00:00: DAY 00 &lt 2021-0 No 02-03 00:00: 00 &lt 2021-0 No 100 02-03 00:00: 00 &lt 2021-0 No 02-03 00:00: 00 &lt 2021-0 No 10 02-03 00:00: 00 gabapentin 2021-0 No 1mg 100 mg -20 capsule 00:00: 00 &lt 2021-0 No 01-28 00:00: 00 pantoprazol 0 Yes Take by Uni vers e sodium 7-19 mouth. ity of (PROTONIX 12:08: [place] ORAL) 56 Medical Branch pantoprazol Yes Take by Uni vers e sodium 7-19 mouth. ity of (PROTONIX 12:08: [place] ORAL) 56 Medical Branch pantoprazol Yes Take by Uni vers e sodium 7-19 mouth. ity of (PROTONIX 12:08: [place] ORAL) 56 Medical Branch pantoprazol 0 Yes Take by Uni vers e sodium 7-19 mouth. ity of (PROTONIX 12:08: [place] ORAL) 56 Medical Branch pantoprazol 0 Yes Take by Uni vers e sodium 7-19 mouth. ity of (PROTONIX 12:08: [place] ORAL) 56 Medical Branch pantoprazol 0 Yes Take by Uni vers e sodium 7-19 mouth. ity of (PROTONIX 12:08: [place] ORAL) 56 Medical Branch pantoprazol 0 Yes Take by Uni vers e sodium 7-19 mouth. ity of (PROTONIX 12:08: [place] ORAL) 56 Medical Branch doxycycline 0 Yes [id number] 100mg Take 1 [facility] hyclate 100 7-19 capsule by it y of mg capsule 00:00: mouth in [place] 00 the Medical morning Branch and 1 capsule in the evening. HYDROcodone 2022-0 Yes [id number] 1{tbl} Take 1 [facility] [place] -acetaminop 7-19 tablet by ity of hen ([facility]) 00:00: mouth [place] 10-325 mg 00 every 6 Medical tablet (six) Branch hours as needed (severe pain). Indication s: acute pain amoxicillin 2022-0 Yes [id number] 1000mg Take 2 [facility] 500 mg 7-19 capsules ity of capsule 00:00: by mouth [place] 00 in the Medical morning Branch and 2 capsules in the evening. doxycycline 2022-0 Yes [id number] 100mg Take 1 [facility] hyclate 100 7-19 capsule by it y of mg capsule 00:00: mouth in [place] 00 the Medical morning Branch and 1 capsule in the evening. HYDROcodone 2022-0 Yes [id number] 1{tbl} Take 1 [place] -acetaminop 7-19 tablet by ity of hen ([facility]) 00:00: mouth [place] 10-325 mg 00 every 6 Medical tablet (six) Branch hours as needed (severe pain). Indication s: acute pain amoxicillin 2022-0 Yes [id number] 1000mg Take 2 [facility] 500 mg 7-19 capsules ity of capsule 00:00: by mouth [place] 00 in the Medical morning Branch and 2 capsules in the evening. doxycycline 2022-0 Yes [id number] 100mg Take 1 [facility] hyclate 100 7-19 capsule by it y of mg capsule 00:00: mouth in [place] 00 the Medical morning Branch and 1 capsule in the evening. HYDROcodone 2022-0 Yes [id number] 1{tbl} Take 1 [facility] [place] -acetaminop 7-19 tablet by ity of hen ([facility]) 00:00: mouth [place] 10-325 mg 00 every 6 Medical tablet (six) Branch hours as needed (severe pain). Indication s: acute pain amoxicillin 2022-0 Yes [id number] 1000mg Take 2 [facility] 500 mg 7-19 capsules ity of capsule 00:00: by mouth [place] 00 in the Medical morning Branch and 2 capsules in the evening. doxycycline 2022-0 Yes [id number] 100mg Take 1 [facility] hyclate 100 7-19 capsule by it y of mg capsule 00:00: mouth in [place] 00 the Medical morning Branch and 1 capsule in the evening. HYDROcodone 2022-0 Yes [id number] 1{tbl} Take 1 [place] -acetaminop 7-19 tablet by ity of hen (NORCO) 00:00: mouth [place] 10-325 mg 00 every 6 Medical tablet (six) Branch hours as needed (severe pain). Indication s: acute pain amoxicillin 2022-0 Yes [id number] 1000mg Take 2 [facility] 500 mg 7-19 capsules ity of capsule 00:00: by mouth [place] 00 in the Medical morning Branch and 2 capsules in the evening. doxycycline 2022-0 Yes [id number] 100mg Take 1 [facility] hyclate 100 7-19 capsule by it y of mg capsule 00:00: mouth in [place] 00 the Medical morning Branch and 1 capsule in the evening. HYDROcodone 2022-0 Yes [id number] 1{tbl} Take 1 [facility] [place] -acetaminop 7-19 tablet by ity of hen (NORCO) 00:00: mouth [place] 10-325 mg 00 every 6 Medical tablet (six) Branch hours as needed (severe pain). Indication s: acute pain amoxicillin 2022-0 Yes [id number] 1000mg Take 2 [facility] 500 mg 7-19 capsules ity of capsule 00:00: by mouth [place] 00 in the Medical morning Branch and 2 capsules in the evening. doxycycline 2022-0 Yes [id number] 100mg Take 1 [facility] hyclate 100 7-19 capsule by it y of mg capsule 00:00: mouth in [place] 00 the Medical morning Branch and 1 capsule in the evening. HYDROcodone 2022-0 Yes [id number] 1{tbl} Take 1 [facility] [place] -acetaminop 7-19 tablet by ity of hen (NORCO) 00:00: mouth [place] 10-325 mg 00 every 6 Medical tablet (six) Branch hours as needed (severe pain). Indication s: acute pain amoxicillin 2022-0 Yes [id number] 1000mg Take 2 [facility] 500 mg 7-19 capsules ity of capsule 00:00: by mouth [place] 00 in the Medical morning Branch and 2 capsules in the evening. doxycycline 2022-0 Yes [id number] 100mg Take 1 [facility] hyclate 100 7-19 capsule by it y of mg capsule 00:00: mouth in [place] 00 the Medical morning Branch and 1 capsule in the evening. doxycycline 2022-0 Yes [id number] 100mg Take 1 [facility] hyclate 100 7-19 capsule by it y of mg capsule 00:00: mouth in [place] 00 the Medical morning Branch and 1 capsule in the evening. doxycycline 2-0 Yes [id number] 100mg Take 1 [facility] hyclate 100 7-19 capsule by it y of mg capsule 00:00: mouth in [place] 00 the Medical morning Branch and 1 capsule in the evening. doxycycline 2021-0 Yes [id number] 100mg Take 1 [facility] hyclate 100 7-19 capsule by it y of mg capsule 00:00: mouth in [place] 00 the Medical morning Branch and 1 capsule in the evening. doxycycline 2-0 Yes [id number] 100mg Take 1 [facility] hyclate 100 7-19 capsule by it y of mg capsule 00:00: mouth in [place] 00 the Medical morning Branch and 1 capsule in the evening. doxycycline 2021-0 Yes [id number] 100mg Take 1 [facility] hyclate 100 7-19 capsule by it y of mg capsule 00:00: mouth in [place] 00 the Medical morning Branch and 1 capsule in the evening. doxycycline 2021-0 Yes [id number] 100mg Take 1 [facility] hyclate 100 7-19 capsule by it y of mg capsule 00:00: mouth in [place] 00 the Medical morning Branch and 1 capsule in the evening. doxycycline 2-0 Yes [id number] 100mg Take 1 [facility] hyclate 100 7-19 capsule by it y of mg capsule 00:00: mouth in [place] 00 the Medical morning Branch and 1 capsule in the evening. doxycycline 2021-0 Yes [id number] 100mg Take 1 [facility] hyclate 100 7-19 capsule by it y of mg capsule 00:00: mouth in [place] 00 the Medical morning Branch and 1 capsule in the evening. doxycycline 2021-0 Yes [id number] 100mg Take 1 [facility] hyclate 100 7-19 capsule by it y of mg capsule 00:00: mouth in [place] 00 the Medical morning Branch and 1 capsule in the evening. HYDROcodone 2021-0 2021- No [id number] 1{tbl} Take 1 U nivers -acetaminop 7-19 10-12 tablet by it y of hen (NORCO) 00:00: 00:00 mouth [place] 10-325 mg 00 :00 every 6 Medical tablet (six) Branch hours as needed (severe pain). Indication s: acute pain amoxicillin 2021-0 2021- No [id number] 1000mg Take 2 [facility] 500 mg 7-19 10-12 capsules ity of capsule 00:00: 00:00 by mouth [place] 00 :00 in the Medical morning Branch and 2 capsules in the evening. HYDROcodone 2021-2021- No [id number] 1{tbl} Take 1 U nivers -acetaminop 7-19 10-12 tablet by it y of hen ([facility]) 00:00: 00:00 mouth [place] 10-325 mg 00 :00 every 6 Medical tablet (six) Branch hours as needed (severe pain). Indication s: acute pain amoxicillin 2021-2021- No [id number] 1000mg Take 2 [facility] 500 mg 7-19 10-12 capsules ity of capsule 00:00: 00:00 by mouth [place] 00 :00 in the Medical morning Branch and 2 capsules in the evening. HYDROcodone 2021-2021- No [id number] 1{tbl} Take 1 U nivers -acetaminop 7-19 10-12 tablet by it y of hen ([facility]) 00:00: 00:00 mouth [place] 10-325 mg 00 :00 every 6 Medical tablet (six) Branch hours as needed (severe pain). Indication s: acute pain amoxicillin 2021-2021- No [id number] 1000mg Take 2 [facility] 500 mg 7-19 10-12 capsules ity of capsule 00:00: 00:00 by mouth [place] 00 :00 in the Medical morning Branch and 2 capsules in the evening. mupirocin 2 0 No 1% % topical 6-14 ointment 00:00: 00 gabapentin 2021-0 No 1mg 100 mg 5-20 capsule 00:00: 00 Dose 2021-0 No Unknown 4-26 00:00: 00 cefadroxil 2021-0 No 2mg/5 500 mg/5 mL 4-21 mL oral 00:00: suspension 00 Dose 2021-0 No Unknown 4-21 00:00: 00 Dose 2021-0 No Unknown 4-14 00:00: 00 Dose 2021-0 No Unknown 4-14 00:00: 00 Dose 2021-0 No Unknown 4-14 00:00: 00 Dose 2021-0 No Unknown 4-14 00:00: 00 Dose 2022-0 No Unknown 4-14 00:00: 00 Dose 2022-0 No Unknown 4-14 00:00: 00 Dose 2022-0 No Unknown 4-14 00:00: 00 Dose 2022-0 No Unknown 4-14 00:00: 00 Dose 2022-0 No Unknown 4-14 00:00: 00 Dose 2022-0 No Unknown 4-14 00:00: 00 Dose 2022-0 No Unknown 4-14 00:00: 00 Dose 2022-0 No Unknown 4-14 00:00: 00 Dose 2022-0 No Unknown 4-14 00:00: 00 Dose 2022-0 No Unknown 4-14 00:00: 00 Dose 2022-0 No Unknown 4-14 00:00: 00 Dose 2022-0 No Unknown 4-14 00:00: 00 Dose 2022-0 No Unknown 4-14 00:00: 00 Dose 2022-0 No Unknown 4-14 00:00: 00 Dose 2022-0 No Unknown 4-14 00:00: 00 Dose 2022-0 No Unknown 4-14 00:00: 00 Dose 2022-0 No Unknown 4-14 00:00: 00 Dose 2022-0 No Unknown 4-14 00:00: 00 Dose 2022-0 No Unknown 4-14 00:00: 00 Dose 2022-0 No Unknown 4-14 00:00: 00 Dose 2022-0 No Unknown 4-14 00:00: 00 Dose 2022-0 No Unknown 4-14 00:00: 00 Dose 2022-0 No Unknown 4-14 00:00: 00 Dose 2022-0 No Unknown 4-14 00:00: 00 Dose 2022-0 No Unknown 4-14 00:00: 00 Dose 2022-0 No Unknown 4-14 00:00: 00 Dose 2022-0 No Unknown 4-14 00:00: 00 Dose 2022-0 No Unknown 4-14 00:00: 00 Dose 2022-0 No Unknown 4-14 00:00: 00 Dose 2022-0 No Unknown 4-14 00:00: 00 Dose 2022-0 No Unknown 4-14 00:00: 00 Dose 2022-0 No Unknown 4-14 00:00: 00 Dose 2022-0 No Unknown 4-14 00:00: 00 Dose 2022-0 No Unknown 4-14 00:00: 00 Dose 2022-0 No Unknown 4-14 00:00: 00 Dose 2022-0 No Unknown 4-14 00:00: 00 Dose 2022-0 No Unknown 4-14 00:00: 00 Dose 2022-0 No Unknown 4-14 00:00: 00 Dose 2022-0 No Unknown 4-14 00:00: 00 Dose 2022-0 No Unknown 4-14 00:00: 00 Dose 2022-0 No Unknown 4-14 00:00: 00 Dose 2022-0 No Unknown 4-14 00:00: 00 Dose 2022-0 No Unknown 4-14 00:00: 00 Dose 2022-0 No Unknown 4-14 00:00: 00 Dose 2022-0 No Unknown 4-14 00:00: 00 Dose 2022-0 No Unknown 4-14 00:00: 00 Dose 2022-0 No Unknown 4-14 00:00: 00 Dose 2022-0 No Unknown 4-14 00:00: 00 Dose 2022-0 No Unknown 4-14 00:00: 00 Dose 2022-0 No Unknown 4-14 00:00: 00 Dose 2022-0 No Unknown 4-14 00:00: 00 Dose 2022-0 No Unknown 4-14 00:00: 00 Dose 2022-0 No Unknown 4-14 00:00: 00 Dose 2022-0 No Unknown 4-14 00:00: 00 Dose 2022-0 No Unknown 4-14 00:00: 00 Dose 2022-0 No Unknown 4-14 00:00: 00 Dose 2022-0 No Unknown 4-14 00:00: 00 Dose 2022-0 No Unknown 4-14 00:00: 00 Dose 2022-0 No Unknown 4-14 00:00: 00 Dose 2022-0 No Unknown 4-14 00:00: 00 Dose 2022-0 No Unknown 4-14 00:00: 00 Dose 2022-0 No Unknown 4-14 00:00: 00 Dose 2022-0 No Unknown 4-14 00:00: 00 Dose 2022-0 No Unknown 4-14 00:00: 00 Dose 2022-0 No Unknown 4-14 00:00: 00 Dose 2022-0 No Unknown 4-14 00:00: 00 Dose 2022-0 No Unknown 4-14 00:00: 00 Dose 2022-0 No Unknown 4-14 00:00: 00 Dose 2022-0 No Unknown 4-14 00:00: 00 Dose 2022-0 No Unknown 4-14 00:00: 00 Dose 2022-0 No Unknown 4-14 00:00: 00 Dose 2022-0 No Unknown 4-14 00:00: 00 Dose 2022-0 No Unknown 4-14 00:00: 00 Dose 2022-0 No Unknown 4-14 00:00: 00 Dose 2022-0 No Unknown 4-14 00:00: 00 Dose 2022-0 No Unknown 4-14 00:00: 00 Dose 2022-0 No Unknown 4-14 00:00: 00 Dose 2022-0 No Unknown 4-14 00:00: 00 Dose 2022-0 No Unknown 4-14 00:00: 00 Dose 2022-0 No Unknown 4-14 00:00: 00 Dose 2022-0 No Unknown 4-13 00:00: 00 Dose 2022-0 No Unknown 4-13 00:00: 00 Dose 2022-0 No Unknown 4-13 00:00: 00 Dose 2022-0 No Unknown 4-13 00:00: 00 Dose 2022-0 No Unknown 4-13 00:00: 00 Dose 2022-0 No Unknown 4-13 00:00: 00 Dose 2022-0 No Unknown 4-13 00:00: 00 Dose 2022-0 No Unknown 4-13 00:00: 00 Dose 2022-0 No Unknown 4-13 00:00: 00 Dose 2022-0 No Unknown 4-13 00:00: 00 Dose 2022-0 No Unknown 4-13 00:00: 00 Dose 2022-0 No Unknown 4-13 00:00: 00 Dose 2022-0 No Unknown 4-13 00:00: 00 Dose 2022-0 No Unknown 4-13 00:00: 00 Dose 2022-0 No Unknown 4-13 00:00: 00 Dose 2022-0 No Unknown 4-13 00:00: 00 Dose 2022-0 No Unknown 4-13 00:00: 00 Dose 2022-0 No Unknown 4-13 00:00: 00 Dose 2022-0 No Unknown 4-13 00:00: 00 Dose 2022-0 No Unknown 4-13 00:00: 00 Dose 2022-0 No Unknown 4-13 00:00: 00 Dose 2022-0 No Unknown 4-13 00:00: 00 Dose 2022-0 No Unknown 4-13 00:00: 00 Dose 2022-0 No Unknown 4-13 00:00: 00 Dose 2022-0 No Unknown 4-13 00:00: 00 Dose 2022-0 No Unknown 4-13 00:00: 00 Dose 2022-0 No Unknown 4-13 00:00: 00 Dose 2022-0 No Unknown 4-13 00:00: 00 Dose 2022-0 No Unknown 4-13 00:00: 00 Dose 2022-0 No Unknown 4-13 00:00: 00 ondansetron 2021-0 Yes [id number] 4mg Take 1 [facility] (ZOFRAN) 4 4-05 tablet by ity of mg tablet 00:00: mouth [place] 00 every 8 Medical (eight) Branch hours as needed for Nausea and Vomiting (N/V). ondansetron 2021-0 Yes [id number] 4mg Take 1 [facility] (ZOFRAN) 4 4-05 tablet by ity of mg tablet 00:00: mouth [place] 00 every 8 Medical (eight) Branch hours as needed for Nausea and Vomiting (N/V). ondansetron 2021-0 Yes [id number] 4mg Take 1 [facility] (ZOFRAN) 4 4-05 tablet by ity of mg tablet 00:00: mouth [place] 00 every 8 Medical (eight) Branch hours as needed for Nausea and Vomiting (N/V). ondansetron 2021-0 Yes [id number] 4mg Take 1 [facility] (ZOFRAN) 4 4-05 tablet by ity of mg tablet 00:00: mouth [place] 00 every 8 Medical (eight) Branch hours as needed for Nausea and Vomiting (N/V). ondansetron 2-0 Yes [id number] 4mg Take 1 [facility] (ZOFRAN) 4 4-05 tablet by ity of mg tablet 00:00: mouth [place] 00 every 8 Medical (eight) Branch hours as needed for Nausea and Vomiting (N/V). ondansetron 2-0 Yes [id number] 4mg Take 1 Univers (ZOFRAN) 4 4-05 tablet by ity of mg tablet 00:00: mouth [place] 00 every 8 Medical (eight) Branch hours as needed for Nausea and Vomiting (N/V). ondansetron 2022-0 Yes [id number] 4mg Take 1 [facility] (ZOFRAN) 4 4-05 tablet by ity of mg tablet 00:00: mouth [place] 00 every 8 Medical (eight) Branch hours as needed for Nausea and Vomiting (N/V). ondansetron 2-0 Yes [id number] 4mg Take 1 [facility] (ZOFRAN) 4 4-05 tablet by ity of mg tablet 00:00: mouth [place] 00 every 8 Medical (eight) Branch hours as needed for Nausea and Vomiting (N/V). ondansetron 2-0 Yes [id number] 4mg Take 1 [facility] (ZOFRAN) 4 4-05 tablet by ity of mg tablet 00:00: mouth [place] 00 every 8 Medical (eight) Branch hours as needed for Nausea and Vomiting (N/V). ondansetron 2-0 Yes [id number] 4mg Take 1 [facility] (ZOFRAN) 4 4-05 tablet by ity of mg tablet 00:00: mouth [place] 00 every 8 Medical (eight) Branch hours as needed for Nausea and Vomiting (N/V). ondansetron 2-0 Yes [id number] 4mg Take 1 [facility] (ZOFRAN) 4 4-05 tablet by ity of mg tablet 00:00: mouth [place] 00 every 8 Medical (eight) Branch hours as needed for Nausea and Vomiting (N/V). ondansetron 2-0 Yes [id number] 4mg Take 1 [facility] (ZOFRAN) 4 4-05 tablet by ity of mg tablet 00:00: mouth [place] 00 every 8 Medical (eight) Branch hours as needed for Nausea and Vomiting (N/V). ondansetron 2-0 Yes [id number] 4mg Take 1 [facility] (ZOFRAN) 4 4-05 tablet by ity of mg tablet 00:00: mouth [place] 00 every 8 Medical (eight) Branch hours as needed for Nausea and Vomiting (N/V). ondansetron 2022-0 Yes [id number] 4mg Take 1 [facility] (ZOFRAN) 4 4-05 tablet by ity of mg tablet 00:00: mouth [place] 00 every 8 Medical (eight) Branch hours as needed for Nausea and Vomiting (N/V). ondansetron 2022-0 Yes [id number] 4mg Take 1 [facility] (ZOFRAN) 4 4-05 tablet by ity of mg tablet 00:00: mouth [place] 00 every 8 Medical (eight) Branch hours as needed for Nausea and Vomiting (N/V). ondansetron Yes [id number] 4mg Take 1 [facility] (ZOFRAN) 4 4-05 tablet by ity of mg tablet 00:00: mouth [place] 00 every 8 Medical (eight) Branch hours as needed for Nausea and Vomiting (N/V). ondansetron Yes [id number] 4mg Take 1 [facility] (ZOFRAN) 4 4-05 tablet by ity of mg tablet 00:00: mouth [place] 00 every 8 Medical (eight) Branch hours as needed for Nausea and Vomiting (N/V). ondansetron Yes [id number] 4mg Take 1 [facility] (ZOFRAN) 4 4-05 tablet by ity of mg tablet 00:00: mouth [place] 00 every 8 Medical (eight) Branch hours as needed for Nausea and Vomiting (N/V). cefadroxil 2021- No [id number] 500mg Take 1 [facility] 500 mg 10-14- capsule by ity of capsule 00:00: 00:00 mouth 2 [place] 00 :00 (two) Medical times Branch daily. doxycycline 2021- No [id number] 100mg Take 1 [facility] hyclate 100 10-14- capsule by i ty of mg capsule 00:00: 00:00 mouth 2 [place] 00 :00 (two) Medical times Branch daily. sennosides- Yes [id number] 1{tbl} Take 1 [facility] docusate 3-01 [id number] tablet by ity of sodium 00:00: mouth [place] 8.6-50 mg 00 daily. Medical per tablet Branch sennosides- Yes [id number] 1{tbl} Take 1 [facility] docusate 3-01 [id number] tablet by ity of sodium 00:00: mouth [place] 8.6-50 mg 00 daily. Medical per tablet Branch sennosides- Yes [id number] 1{tbl} Take 1 [facility] docusate 3-01 [id number] tablet by ity of sodium 00:00: mouth [place] 8.6-50 mg 00 daily. Medical per tablet Branch sennosides- Yes [id number] 1{tbl} Take 1 [facility] docusate 3 [id number] tablet by ity of sodium 00:00: mouth [place] 8.6-50 mg 00 daily. Medical per tablet [facility] Yes [id number] 1{tbl} Take 1 Univers docusate 3 [id number] tablet by ity of sodium 00:00: mouth [place] 8.6-50 mg 00 daily. Medical per tablet [facility] Yes [id number] 1{tbl} Take 1 Univers docusate 09-09 [id number] tablet by ity of sodium 00:00: mouth [place] 8.6-50 mg 00 daily. Medical per tablet [facility] Yes [id number] 1{tbl} Take 1 Univers docusate 09-09 [id number] tablet by ity of sodium 00:00: mouth [place] 8.6-50 mg 00 daily. Medical per tablet [facility] Yes [id number] 1{tbl} Take 1 Univers docusate 09-09 [id number] tablet by ity of sodium 00:00: mouth [place] 8.6-50 mg 00 daily. Medical per tablet [facility] 2021- No [id number] 1{tbl} Take 1 Univers docusate 09-09 [id number] tablet by ity of sodium 00:00: 00:00 mouth [place] 8.6-50 mg 00 :00 daily. Medical per tablet [facility] 2021- No [id number] 1{tbl} Take 1 Univers docusate 09-09 [id number] tablet by ity of sodium 00:00: 00:00 mouth [place] 8.6-50 mg 00 :00 daily. Medical per tablet [facility] 2021- No [id number] 1{tbl} Take 1 Univers docusate 304-22 [id number] tablet by ity of sodium 00:00: 00:00 mouth [place] 8.6-50 mg 00 :00 daily. Medical per tablet [place] PEN NEEDLE Yes Use as Unive rs 31 gauge x 2-10 directed ity o f 3/16" Ndle 00:00: daily with [place] 00 Tymlos pen Medical injector. Branch abaloparati Yes 80ug inject 80 U nivers de (TYMLOS) 2-10 mcg under ity of 80 mcg 00:00: the skin [place] (3,120 00 daily. Medical mcg/1.56 Branch mL) PnIj PEN NEEDLE Yes Use as Unive rs 31 gauge x 2-10 directed ity o f 09/24" Ndle 00:00: daily with [place] 00 Tymlos pen Medical injector. Branch abaloparati Yes 80ug inject 80 U nivers de (TYMLOS) 2-10 mcg under ity of 80 mcg 00:00: the skin [place] (3,120 00 daily. Medical mcg/1.56 Branch mL) PnIj PEN NEEDLE Yes Use as Unive rs 31 gauge x 2-10 directed ity o f 09/24" Nd 00:00: daily with [place] Tymlos pen Medical injector. Branch abaloparati Yes 80ug inject 80 U nivers de (TYMLOS) 2-10 mcg under ity of 80 mcg 00:00: the skin [place] (3,120 00 daily. Medical mcg/1.56 Branch mL) PnIj PEN NEEDLE Yes Use as Unive rs 31 gauge x 2-10 directed ity o f 09/24" Nd 00:00: daily with [place] 00 Tymlos pen Medical injector. Branch abaloparati Yes 80ug inject 80 U nivers de (TYMLOS) 2-10 mcg under ity of 80 mcg 00:00: the skin [place] (3,120 00 daily. Medical mcg/1.56 Branch mL) PnIj PEN NEEDLE Yes Use as Unive rs 31 gauge x 2-10 directed ity o f 09/24" Ndle 00:00: daily with [place] 00 Tymlos pen Medical injector. Branch abaloparati Yes 80ug inject 80 U nivers de (TYMLOS) 2-10 mcg under ity of 80 mcg 00:00: the skin [place] (3,120 00 daily. Medical mcg/1.56 Branch mL) PnIj PEN NEEDLE Yes Use as Unive rs 31 gauge x 2-10 directed ity o f 09/24" Ndle 00:00: daily with [place] 00 Tymlos pen Medical injector. Branch abaloparati Yes 80ug inject 80 U nivers de (TYMLOS) 2-10 mcg under ity of 80 mcg 00:00: the skin [place] (3,120 00 daily. Medical mcg/1.56 Branch mL) PnIj PEN NEEDLE Yes Use as Unive rs 31 gauge x 2-10 directed ity o f 09/24" Ndle 00:00: daily with [place] 00 Tymlos pen Medical injector. Branch abaloparati Yes 80ug inject 80 U nivers de (TYMLOS) 2-10 mcg under ity of 80 mcg 00:00: the skin [place] (3,120 00 daily. Medical mcg/1.56 Branch mL) PnIj PEN NEEDLE Yes Use as Unive rs 31 gauge x 2-10 directed ity o f 09/24" Ndle 00:00: daily with [place] 00 Tymlos pen Medical injector. Branch abaloparati Yes 80ug inject 80 U nivers de (TYMLOS) 2-10 mcg under ity of 80 mcg 00:00: the skin [place] (3,120 00 daily. Medical mcg/1.56 Branch mL) PnIj PEN NEEDLE 2021- No Use as Univ ers 31 gauge x 2-10 10-12 directed ity of 09/24" Ndle 00:00: 00:00 daily with [place] 00 :00 Tymlos pen Medical injector. Branch abaloparati 2021- No 80ug inject 80 Univers de (TYMLOS) 2-10 10-12 mcg under it y of 80 mcg 00:00: 00:00 the skin [place] (3,120 00 :00 daily. Medical mcg/1.56 Branch mL) PnIj PEN NEEDLE 2021- No Use as Univ ers 31 gauge x 2-10 10-12 directed ity of 316" Ndle 00:00: 00:00 daily with [place] 00 :00 Tymlos pen Medical injector. Branch abaloparati 2021- No 80ug inject 80 Univers de (TYMLOS) 2-10 10-12 mcg under it y of 80 mcg 00:00: 00:00 the skin [place] (3,120 00 :00 daily. Medical mcg/1.56 Branch mL) PnIj PEN NEEDLE 2021- No Use as Univ ers 31 gauge x 2-10 10-12 directed ity of 3/16" Ndle 00:00: 00:00 daily with [place] 00 :00 Tymlos pen Medical injector. Branch abaloparati 2021- No 80ug inject 80 Univers de (TYMLOS) 2-10 10-12 mcg under it y of 80 mcg 00:00: 00:00 the skin [place] (3,120 00 :00 daily. Medical mcg/1.56 Branch mL) PnIj gabapentin Yes 100mg Take 100 Un [place] 100 mg 2-01 mg by ity of capsule 00:00: mouth 2 (two) Medical times Branch daily. TRELEGY Yes 1{puff} Inhale 1 Uni vers ELLIPTA 2-01 Puff ity of 100-62.5-25 00:00: daily. [place] mcg DsDv [facility] Branch gabapentin Yes 100mg Take 100 [facility] [place] 100 mg 2-01 mg by ity of capsule 00:00: mouth 2 (two) Medical times Branch daily. TRELEGY Yes 1{puff} Inhale 1 Uni vers ELLIPTA 2-01 Puff ity of 100-62.5-25 00:00: daily. [place] m[place] DsD[place] [facility] gabapentin Yes 100mg Take 100 Un [place] 100 mg 2-01 mg by ity of capsule 00:00: mouth 2 (two) Medical times Branch daily. TRELEGY Yes 1{puff} Inhale 1 Uni vers ELLIPTA 2-01 Puff ity of 100-62.5-25 00:00: daily. [place] m[place] DsD[place] [facility] gabapentin 2021-0 Yes 100mg Take 100 Un [place] 100 mg 2-01 mg by ity of capsule 00:00: mouth 2 (two) Medical times Branch daily. TRELEGY Yes 1{puff} Inhale 1 Uni vers ELLIPTA 2-01 Puff ity of 100-62.5-25 00:00: daily. [place] DsD[place] [facility] Branch gabapentin 2022-0 Yes 100mg Take 100 [facility] [place] 100 mg 2-01 mg by ity of capsule 00:00: mouth 2 (two) Medical times Branch daily. TRELEGY 2-0 Yes 1{puff} Inhale 1 Uni vers ELLIPTA 2-01 Puff ity of 100-62.5-25 00:00: daily. [place] DsD[facility] gabapentin 2-0 Yes 100mg Take 100 Un [place] 100 mg 2-01 mg by ity of capsule 00:00: mouth (two) Medical times Branch daily. TRELEGY 2021-0 Yes 1{puff} Inhale 1 Uni vers ELLIPTA 2-01 Puff ity of 100-62.5-25 00:00: daily. [place] m[place] DsD[place] [facility] Branch gabapentin 2022-0 Yes 100mg Take 100 [facility] [place] 100 mg 2-01 mg by ity of capsule 00:00: mouth (two) Medical times Branch daily. TRELEGY 2-0 Yes 1{puff} Inhale 1 Uni vers ELLIPTA 2-01 Puff ity of 100-62.5-25 00:00: daily. [place] mcg DsDv [facility] gabapentin 2022-0 Yes 100mg Take 100 [facility] [place] 100 mg 2-01 mg by ity of capsule 00:00: mouth (two) Medical times Branch daily. TRELEGY 2-0 Yes 1{puff} Inhale 1 Uni vers ELLIPTA 2-01 Puff ity of 100-62.5-25 00:00: daily. [place] mcg DsDv 00 Medical Branch gabapentin 2022-0 Yes 100mg Take 100 [facility] [place] 100 mg 2-01 mg by ity of capsule 00:00: mouth 2 (two) Medical times Branch daily. gabapentin 2022-0 Yes 100mg Take 100 [facility] [place] 100 mg 2-01 mg by ity of capsule 00:00: mouth 2 (two) Medical times Branch daily. gabapentin 2022-0 Yes 100mg Take 100 [facility] [place] 100 mg 2-01 mg by ity of capsule 00:00: mouth (two) Medical times Branch daily. gabapentin 2022-0 Yes 100mg Take 100 [facility] [place] 100 mg 2-01 mg by ity of capsule 00:00: mouth (two) Medical times Branch daily. gabapentin 2022-0 Yes 100mg Take 100 [facility] [place] 100 mg 2-01 mg by ity of capsule 00:00: mouth (two) Medical times Branch daily. gabapentin 2022-0 Yes 100mg Take 100 [facility] [place] 100 mg 2-01 mg by ity of capsule 00:00: mouth (two) Medical times Branch daily. gabapentin 2022-0 Yes 100mg Take 100 [facility] [place] 100 mg 2-01 mg by ity of capsule 00:00: mouth (two) Medical times Branch daily. gabapentin 2022-0 Yes 100mg Take 100 [facility] [place] 100 mg 2-01 mg by ity of capsule 00:00: mouth (two) Medical times Branch daily. gabapentin 2022-0 Yes 100mg Take 100 [place] 100 mg 2-01 mg by ity of capsule 00:00: mouth (two) Medical times Branch daily. gabapentin 2022-0 Yes 100mg Take 100 [place] 100 mg 2-01 mg by ity of capsule 00:00: mouth (two) Medical times Branch daily. TRELEGY 2021- No 1{puff} Inhale 1 [facility] [place] ELLIPTA 2-01 10-12 Puff ity of 100-62.5-25 00:00: 00:00 daily. [place] mcg DsDv 00 :00 Medical Branch TRELEGY 2021- No 1{puff} Inhale 1 [facility] [place] ELLIPTA 2-01 10-12 Puff ity of 100-62.5-25 00:00: 00:00 daily. [place] mcg DsDv 00 :00 Medical Branch TRELEGY 2021- No 1{puff} Inhale 1 [facility] [place] ELLIPTA 2-01 10-12 Puff ity of 100-62.5-25 00:00: 00:00 daily. [place] mcg DsDv 00 :00 Medical Branch meloxicam No 1mg 15 mg 1-20 tablet 00:00: 00 Dose 2021-1 No Unknown 2-16 00:00: 00 gabapentin 2021-1 No 1mg 100 mg 1-18 capsule 00:00: 00 meloxicam 2021-1 No 1mg 15 mg 0-18 tablet 00:00: 00 meloxicam 2021-1 No 1mg 15 mg 0-18 tablet 00:00: 00 gabapentin 2021-1 No 1mg 100 mg 0-18 capsule 00:00: 00 atorvastati 2021-0 No 1mg n 10 mg 7-08 tablet 00:00: 00 meloxicam 2021-0 No 1mg 15 mg 5-28 tablet 00:00: 00 meloxicam 2021-0 No 1mg 15 mg 4-21 tablet 00:00: 00 Dose 2021-0 No Unknown 4-19 00:00: 00 gabapentin 2021-0 No 1mg 100 mg 4-12 capsule 00:00: 00 meloxicam 2021-0 No 1mg 15 mg 3-17 tablet 00:00: 00 gabapentin 2021-0 No 1mg 100 mg 3-09 capsule 00:00: 00 Dose 2021-0 No Unknown 3-08 00:00: 00 Augmentin 2021-0 No 1mg 875 mg-125 3-08 mg tablet 00:00: 00 meloxicam 2021-0 No 1mg 15 mg 2-09 tablet 00:00: 00 gabapentin 2021-0 No 1mg 100 mg 2-09 capsule 00:00: 00 atorvastati 1-0 No 1mg n 10 mg 1-26 tablet 00:00: 00 meloxicam 2020-1 No 1mg 15 mg 2-30 tablet 00:00: 00 Dose 2020-1 No Unknown 2-07 00:00: 00 gabapentin 2020-1 No 1mg 100 mg 1-23 capsule 00:00: 00 meloxicam 2020-1 No 1mg 15 mg 1-23 tablet 00:00: 00 Dose 2020-0 No Unknown 6-19 00:00: 00 Dose 2020-0 No Unknown 6-19 00:00: 00 pantoprazol 2020-0 No 1mg e 40 mg 6-17 tablet,lesa 00:00: yed release 00 doxycycline 2020-0 No 1mg hyclate 100 6-17 mg capsule 00:00: 00 meloxicam 2020-0 No 1mg 15 mg 4-13 tablet 00:00: 00 gabapentin 2020-0 No 1mg 100 mg 4-13 capsule 00:00: 00 Immunizations Ordered Filled Immunization Date Status Comments [facility] e Immunization Name Name SARS-COV-2 COVID-19 2021-10-14 Completed Unive rsity of PFIZER RADHA-SUCROSE 00:00:00 [place] [facility] VACCINE (FARIAS TOP) Branch SARS-COV-2 COVID-19 2021-10-14 Completed Unive rsity of PFIZER RADHA-SUCROSE 00:00:00 [place] [facility] VACCINE (FARIAS TOP) Branch SARS-COV-2 COVID-19 2021-10-14 Completed Unive rsity of PFIZER RADHA-SUCROSE 00:00:00 [place] [facility] VACCINE (FARIAS TOP) Branch SARS-COV-2 COVID-19 2021-10-14 Completed Unive rsity of PFIZER RADHA-SUCROSE 00:00:00 [place] [facility] VACCINE (FARIAS TOP) Branch SARS-COV-2 COVID-19 2021-10-14 Completed Unive rsity of PFIZER RADHA-SUCROSE 00:00:00 [place] [facility] VACCINE (FARIAS TOP) Branch SARS-COV-2 COVID-19 2021-10-14 Completed Unive rsity of PFIZER RADHA-SUCROSE 00:00:00 [place] [facility] VACCINE (FARIAS TOP) Branch SARS-COV-2 COVID-19 2021-10-14 Completed Unive rsity of PFIZER RADHA-SUCROSE 00:00:00 [place] [facility] VACCINE (FARIAS TOP) Branch SARS-COV-2 COVID-19 2021-10-14 Completed Unive rsity of PFIZER RADHA-SUCROSE 00:00:00 [place] [facility] VACCINE (FARIAS TOP) Branch SARS-COV-2 COVID-19 2021-10-14 Completed Unive rsity of PFIZER RADHA-SUCROSE 00:00:00 [place] [facility] VACCINE (FARIAS TOP) Branch SARS-COV-2 COVID-19 2021-10-14 Completed Unive rsity of PFIZER RADHA-SUCROSE 00:00:00 [place] [facility] VACCINE (FARIAS TOP) Branch SARS-COV-2 COVID-19 2021-10-14 Completed Unive rsity of PFIZER RADHA-SUCROSE 00:00:00 [place] [facility] VACCINE (FARIAS TOP) Branch SARS-COV-2 COVID-19 2021-10-14 Completed Unive rsity of PFIZER RADHA-SUCROSE 00:00:00 [place] [facility] VACCINE (FARAIS TOP) Branch SARS-COV-2 COVID-19 2021-10-14 Completed Unive rsity of PFIZER RADHA-SUCROSE 00:00:00 [place] [facility] VACCINE (FARIAS TOP) Branch SARS-COV-2 COVID-19 2021-10-14 Completed Unive rsity of PFIZER RADHA-SUCROSE 00:00:00 [place] [facility] VACCINE (FARIAS TOP) Branch SARS-COV-2 COVID-19 2021-10-14 Completed Unive rsity of PFIZER RADHA-SUCROSE 00:00:00 [place] [facility] VACCINE (FARIAS TOP) Branch SARS-COV-2 COVID-19 2021-10-14 Completed Unive rsity of PFIZER RADHA-SUCROSE 00:00:00 [place] [facility] VACCINE (FARIAS TOP) Branch SARS-COV-2 COVID-19 2021-10-14 Completed Unive rsity of PFIZER RADHA-SUCROSE 00:00:00 [place] [facility] VACCINE (FARIAS TOP) Branch SARS-COV-2 COVID-19 2021-10-14 Completed Unive rsity of PFIZER RADHA-SUCROSE 00:00:00 [place] [facility] VACCINE (FARIAS TOP) Branch SARS-COV-2 COVID-19 2020-10-03 Completed Unive rsity of PFIZER VACCINE 00:00:00 [place] [facility] Branch SARS-COV-2 COVID-19 2020-10-03 Completed Unive rsity of PFIZER VACCINE 00:00:00 [place] [facility] Branch SARS-COV-2 COVID-19 2020-10-03 Completed Unive rsity of PFIZER VACCINE 00:00:00 [place] [facility] Branch SARS-COV-2 COVID-19 2020-10-03 Completed Unive rsity of PFIZER VACCINE 00:00:00 [place] [facility] Branch SARS-COV-2 COVID-19 2020-10-03 Completed Unive rsity of PFIZER VACCINE 00:00:00 [place] [facility] Branch SARS-COV-2 COVID-19 2020-10-03 Completed Unive rsity of PFIZER VACCINE 00:00:00 [place] [facility] Branch SARS-COV-2 COVID-19 2020-10-03 Completed Unive rsity of PFIZER VACCINE 00:00:00 [place] [facility] Branch SARS-COV-2 COVID-19 2020-10-03 Completed Unive rsity of PFIZER VACCINE 00:00:00 [facility] Branch SARS-COV-2 COVID-19 2020-10-03 Completed Unive rsity of PFIZER VACCINE 00:00:00 [facility] Branch SARS-COV-2 COVID-19 2020-10-03 Completed Unive rsity of PFIZER VACCINE 00:00:00 [facility] Branch SARS-COV-2 COVID-19 2020-10-03 Completed Unive rsity of PFIZER VACCINE 00:00:00 [facility] Branch SARS-COV-2 COVID-19 2020-10-03 Completed Unive rsity of PFIZER VACCINE 00:00:00 [facility] Branch SARS-COV-2 COVID-19 2020-10-03 Completed Unive rsity of PFIZER VACCINE 00:00:00 [facility] Branch SARS-COV-2 COVID-19 2020-10-03 Completed Unive rsity of PFIZER VACCINE 00:00:00 [facility] Branch SARS-COV-2 COVID-19 2020-10-03 Completed Unive rsity of PFIZER VACCINE 00:00:00 [facility] Branch SARS-COV-2 COVID-19 2020-10-03 Completed Unive rsity of PFIZER VACCINE 00:00:00 [facility] Branch SARS-COV-2 COVID-19 2020-10-03 Completed Unive rsity of PFIZER VACCINE 00:00:00 [facility] Branch SARS-COV-2 COVID-19 2020-10-03 Completed Unive rsity of PFIZER VACCINE 00:00:00 [facility] Branch SARS-COV-2 COVID-19 2020-09-13 Completed Unive rsity of PFIZER VACCINE 00:00:00 [facility] Branch SARS-COV-2 COVID-19 2020-09-13 Completed Unive rsity of PFIZER VACCINE 00:00:00 [facility] Branch SARS-COV-2 COVID-19 2020-09-13 Completed Unive rsity of PFIZER VACCINE 00:00:00 [facility] Branch SARS-COV-2 COVID-19 2020-09-13 Completed Unive rsity of PFIZER VACCINE 00:00:00 [facility] Branch SARS-COV-2 COVID-19 2020-09-13 Completed Unive rsity of PFIZER VACCINE 00:00:00 [facility] SARS-COV-2 COVID-19 2020-09-13 Completed Unive rsity of PFIZER VACCINE 00:00:00 [facility] Branch SARS-COV-2 COVID-19 2020-09-13 Completed Unive rsity of PFIZER VACCINE 00:00:00 [facility] Branch SARS-COV-2 COVID-19 2020-09-13 Completed Unive rsity of PFIZER VACCINE 00:00:00 [facility] Branch SARS-COV-2 COVID-19 2020-09-13 Completed Unive rsity of PFIZER VACCINE 00:00:00 [facility] Branch SARS-COV-2 COVID-19 2020-09-13 Completed Unive rsity of PFIZER VACCINE 00:00:00 [facility] Branch SARS-COV-2 COVID-19 2020-09-13 Completed Unive rsity of PFIZER VACCINE 00:00:00 [facility] Branch SARS-COV-2 COVID-19 2020-09-13 Completed Unive rsity of PFIZER VACCINE 00:00:00 [facility] Branch SARS-COV-2 COVID-19 2020-09-13 Completed Unive rsity of PFIZER VACCINE 00:00:00 [facility] Branch SARS-COV-2 COVID-19 2020-09-13 Completed Unive rsity of PFIZER VACCINE 00:00:00 [facility] Branch SARS-COV-2 COVID-19 2020-09-13 Completed Unive rsity of PFIZER VACCINE 00:00:00 [facility] Branch SARS-COV-2 COVID-19 2020-09-13 Completed Unive rsity of PFIZER VACCINE 00:00:00 [facility] Branch SARS-COV-2 COVID-19 2020-09-13 Completed Unive rsity of PFIZER VACCINE 00:00:00 [facility] Branch SARS-COV-2 COVID-19 2020-09-13 Completed Unive rsity of PFIZER VACCINE 00:00:00 [facility] Branch Influenza High Dose 2020-05-30 Completed Unive rsity of [place] 00:00:00 [facility] Branch Influenza High Dose 2020-05-30 Completed Unive rsity of [place] 00:00:00 [facility] Branch Influenza High Dose 2020-05-30 Completed Unive rsity of [place] 00:00:00 [facility] Branch Influenza High Dose 2020-05-30 Completed Unive rsity of [place] 00:00:00 [facility] Influenza High Dose 2020-05-30 Completed Unive rsity of [place] 00:00:00 [facility] Branch Influenza High Dose 2020-05-30 Completed Unive rsity of [place] 00:00:00 [facility] Influenza High Dose 2020-05-30 Completed Unive rsity of [place] 00:00:00 [facility] Influenza High Dose 2020-05-30 Completed Unive rsity of [place] 00:00:00 [facility] Influenza High Dose 2020-05-30 Completed Unive rsity of [place] 00:00:00 [facility] Influenza High Dose 2020-05-30 Completed Unive rsity of [place] 00:00:00 [facility] Influenza High Dose 2020-05-30 Completed Unive rsity of [place] 00:00:00 [facility] Influenza High Dose 2020-05-30 Completed Unive rsity of [place] 00:00:00 [facility] Influenza High Dose 2020-05-30 Completed Unive rsity of [place] 00:00:00 [facility] Influenza High Dose 2020-05-30 Completed Unive rsity of [place] 00:00:00 [facility] Influenza High Dose 2020-05-30 Completed Unive rsity of [place] 00:00:00 [facility] Influenza High Dose 2020-05-30 Completed Unive rsity of [place] 00:00:00 [facility] Influenza High Dose 2020-05-30 Completed Unive rsity of [place] 00:00:00 [facility] Influenza High Dose 2020-05-30 Completed Unive rsity of [place] 00:00:00 [facility] Influenza Virus 2019-05-09 Completed Universit y of Vaccine (3+ yrs) 00:00:00 [facility] Influenza Virus 2019-05-09 Completed Universit y of Vaccine (3+ yrs) 00:00:00 [facility] Influenza Virus 2019-05-09 Completed Universit y of Vaccine (3+ yrs) 00:00:00 [facility] Influenza Virus 2019-05-09 Completed Universit y of Vaccine (3+ yrs) 00:00:00 [facility] Influenza Virus 2019-05-09 Completed [facility] Vaccine (3+ yrs) 00:00:00 [facility] Influenza Virus 2019-05-09 Completed [facility] of Vaccine (3+ yrs) 00:00:00 [facility] Influenza Virus 2019-05-09 Completed [facility] of Vaccine (3+ yrs) 00:00:00 [facility] Influenza Virus 2019-05-09 Completed [facility]it [facility] of Vaccine (3+ yrs) 00:00:00 [facility] Influenza Virus 2019-05-09 Completed [facility]it [facility] of Vaccine (3+ yrs) 00:00:00 [facility] Influenza Virus 2019-05-09 Completed [facility]it [facility] of Vaccine (3+ yrs) 00:00:00 [facility] Influenza Virus 2019-05-09 Completed [facility] of Vaccine (3+ yrs) 00:00:00 [facility] Influenza Virus 2019-05-09 Completed [facility]it [facility] of Vaccine (3+ yrs) 00:00:00 [facility] Influenza Virus 2019-05-09 Completed [facility]it y of Vaccine (3+ yrs) 00:00:00 [facility] Influenza Virus 2019-05-09 Completed [facility]it [facility] of Vaccine (3+ yrs) 00:00:00 [facility] Influenza Virus 2019-05-09 Completed [facility]it [facility] of Vaccine (3+ yrs) 00:00:00 [facility] Influenza Virus 2019-05-09 Completed [facility]it [facility] of Vaccine (3+ yrs) 00:00:00 [facility] Influenza Virus 2019-05-09 Completed [facility]it [facility] of Vaccine (3+ yrs) 00:00:00 [facility] Influenza Virus 2019-05-09 Completed [facility]it [facility] of Vaccine (3+ yrs) 00:00:00 [facility] Influenza Virus 2017-04-20 Completed [facility]it [facility] of Vaccine 00:00:00 [facility] Influenza Virus 2017-04-20 Completed [facility]it [facility] of Vaccine 00:00:00 [facility] Influenza Virus 2017-04-20 Completed [facility]it y of Vaccine 00:00:00 [facility] Influenza Virus 2017-04-20 Completed [facility]it [facility] of Vaccine 00:00:00 [facility] Influenza Virus 2017-04-20 Completed [facility]it [facility] of Vaccine 00:00:00 [facility] Influenza Virus 2017-04-20 Completed [facility] of Vaccine 00:00:00 [facility] Influenza Virus 2017-04-20 Completed [facility]it y of Vaccine 00:00:00 [facility] Influenza Virus 2017-04-20 Completed [facility]it [facility] of Vaccine 00:00:00 [facility] Influenza Virus 2017-04-20 Completed [facility]it y of Vaccine 00:00:00 [facility] Influenza Virus 2017-04-20 Completed [facility]it [facility] of Vaccine 00:00:00 [facility] Influenza Virus 2017-04-20 Completed Universit y of Vaccine 00:00:00 [facility] Influenza Virus 2017-04-20 Completed [facility]it y of Vaccine 00:00:00 [facility] Influenza Virus 2017-04-20 Completed [facility]it y of Vaccine 00:00:00 [facility] Influenza Virus 2017-04-20 Completed [facility]it y of Vaccine 00:00:00 [facility] Influenza Virus 2017-04-20 Completed [facility]it y of Vaccine 00:00:00 [facility] Influenza Virus 2017-04-20 Completed [facility]it y of Vaccine 00:00:00 [facility] Influenza Virus 2017-04-20 Completed [facility]it y of Vaccine 00:00:00 [facility] Influenza Virus 2017-04-20 Completed [facility]it [facility] of Vaccine 00:00:00 [facility] Influenza High Dose 2016-05-29 Completed Unive rsity of 00:00:00 [facility] Influenza High Dose 2016-05-29 Completed Unive rsity of 00:00:00 [facility] Influenza High Dose 2016-05-29 Completed Unive rsity of 00:00:00 [facility] Influenza High Dose 2016-05-29 Completed Unive rsity of 00:00:00 [facility] Influenza High Dose 2016-05-29 Completed Unive rsity of 00:00:00 [facility] Influenza High Dose 2016-05-29 Completed Unive rsity of 00:00:00 [facility] Influenza High Dose 2016-05-29 Completed Unive rsity of 00:00:00 [facility] Influenza High Dose 2016-05-29 Completed Unive rsity of 00:00:00 [facility] Influenza High Dose 2016-05-29 Completed Unive rsity of 00:00:00 [facility] Influenza High Dose 2016-05-29 Completed Unive rsity of 00:00:00 [facility] Influenza High Dose 2016-05-29 Completed Unive rsity of 00:00:00 [facility] Influenza High Dose 2016-05-29 Completed Unive rsity of 00:00:00 [facility] Influenza High Dose 2016-05-29 Completed Unive rsity of 00:00:00 [facility] Influenza High Dose 2016-05-29 Completed Unive rsity of 00:00:00 [facility] Influenza High Dose 2016-05-29 Completed [facility]ive rsity of 00:00:00 [facility] Influenza High Dose 2016-05-29 Completed Unive rsity of 00:00:00 [facility] Influenza High Dose 2016-05-29 Completed Unive rsity of 00:00:00 [facility] Influenza High Dose 2016-05-29 Completed Unive rsity of 00:00:00 [facility] Vital Signs Vital Name Observation Time Observation Value Comments Source Systolic blood 2022-05-15 15:23:00 120 mm[Hg] Univer sity of pressure [facility] Diastolic blood 2022-05-15 15:23:00 59 mm[Hg] Unive rsity of pressure [facility] Heart rate 2022-05-15 15:23:00 81 /min [facility] Oxygen saturation in 2022-05-15 15:23:00 97 /min University of Arterial blood by [place] [employer] [facility] oximetry [facility] Body temperature 2022-05-15 12:15:00 36.83 Jolene [facility] Respiratory rate 2022-05-15 12:15:00 18 /min [facility] Body weight 2022-05-15 01:00:00 70.2 kg [facility] BMI 2022-05-15 01:00:00 27.42 kg/m2 [facility] Body height 2022-05-11 07:00:00 160 cm [facility] Systolic blood 2022-05-07 19:35:00 106 mm[Hg] Univer [facility]ity of pressure [facility] Diastolic blood 2022-05-07 19:35:00 56 mm[Hg] Unive rsity of pressure [facility] Heart rate 2022-05-07 19:35:00 70 /min [facility] Respiratory rate 2022-05-07 19:35:00 12 /min [facility] ers[facility] Oxygen saturation in 2022-05-07 19:35:00 95 /min University of Arterial blood by [employer] Pulse oximetry Branch Body temperature 2022-05-07 19:10:00 36.33 Jolene [facility] Body weight 2022-05-02 13:00:00 88.5 kg [facility] BMI 2022-05-02 13:00:00 34.56 kg/m2 [facility] Body height 2022-04-27 16:38:00 160 cm [facility] Heart rate 2022-04-28 04:10:00 94 /min [facility] Respiratory rate 2022-04-28 04:10:00 16 /min [facility] Oxygen saturation in 2022-04-28 04:10:00 100 /min [facility] of Arterial blood by [facility] Pulse oximetry Branch Systolic blood 2022-04-28 04:00:00 103 mm[Hg] Univer sity of pressure [facility] Diastolic blood 2022-04-28 04:00:00 60 mm[Hg] Unive rsity of pressure [facility] Body temperature 2022-04-27 16:38:00 37.22 Jolene [facility] Body height 2022-04-27 16:38:00 160 cm [facility] Body weight 2022-04-27 16:38:00 72.576 kg [facility] BMI 2022-04-27 16:38:00 30.46 kg/m2 [facility] Systolic blood 2022-04-27 14:00:00 138 mm[Hg] Univer sity of pressure [facility] Diastolic blood 2022-04-27 14:00:00 67 mm[Hg] Unive rsity of pressure [facility] Heart rate 2022-04-27 14:00:00 111 /min [facility] Respiratory rate 2022-04-27 14:00:00 17 /min [facility] Oxygen saturation in 2022-04-27 14:00:00 100 /min [facility] of Arterial blood by [facility] Pulse oximetry Branch Body temperature 2022-04-27 09:22:00 37.61 Jolene [facility] Body height 2022-04-27 09:22:00 160 cm [facility] Body weight 2022-04-27 09:22:00 72.576 kg [facility] BMI 2022-04-27 09:22:00 28.34 kg/m2 [facility] Systolic blood 2022-04-22 20:52:00 130 mm[Hg] Univer sity of pressure [facility] Diastolic blood 2022-04-22 20:52:00 67 mm[Hg] Unive rsity of pressure [facility] Heart rate 2022-04-22 20:52:00 78 /min [facility] Body temperature 2022-04-22 20:52:00 36.78 Jolene [facility] Respiratory rate 2022-04-22 20:52:00 16 /min [facility] Oxygen saturation in 2022-04-22 20:52:00 98 /min [facility] Arterial blood by [place] [facility] Pulse oxim[facility] Branch Body height 2022-04-22 02:09:00 160 cm [facility] Body weight 2022-04-22 02:09:00 72.576 kg [facility] BMI 2022-04-22 02:09:00 28.34 kg/m2 [facility] Systolic blood 2022-01-27 17:09:00 110 mm[Hg] Univer [facility]ity of pressure [facility] Diastolic blood 2022-01-27 17:09:00 73 mm[Hg] Unive rsity of pressure [facility] Heart rate 2022-01-27 17:09:00 80 /min [facility] Respiratory rate 2022-01-27 17:09:00 18 /min [facility] Body height 2022-01-27 17:09:00 160 cm [facility] Body weight 2022-01-27 17:09:00 76.658 kg [facility] BMI 2022-01-27 17:09:00 29.94 kg/m2 [facility] Oxygen saturation in 2022-01-27 17:09:00 98 /min [facility] Arterial blood by [place] [facility] Pulse oximetry Branch BP Systolic 2021-04-28 14:02:00 BP Diastolic 2021-04-28 14:02:00 Weight Measured 2021-04-28 14:02:00 180.00 pounds Height Measured 2021-04-28 14:02:00 63.00 inches Body Temperature 2021-04-28 14:02:00 Heart Rate 2021-04-28 14:02:00 Respiratory Rate 2021-04-28 14:02:00 BP Systolic 2020-09-16 16:14:00 133 mm[Hg] BP Diastolic 2020-09-16 16:14:00 79 mm[Hg] Weight Measured 2020-09-16 16:14:00 220.60 pounds Height Measured 2020-09-16 16:14:00 63.00 inches Body Temperature 2020-09-16 16:14:00 98.00 degrees Heart Rate 2020-09-16 16:14:00 62.00 /min Respiratory Rate 2020-09-16 16:14:00 BP Systolic 2019-12-27 15:20:00 BP Diastolic 2019-12-27 15:20:00 Weight Measured 2019-12-27 15:20:00 279.00 pounds Height Measured 2019-12-27 15:20:00 63.00 inches Body Temperature 2019-12-27 15:20:00 Heart Rate 2019-12-27 15:20:00 Respiratory Rate 2019-12-27 15:20:00 BP Systolic 2019-12-05 03:17:00 BP Diastolic 2019-12-05 03:17:00 Weight Measured 2019-12-05 03:17:00 230.00 pounds Height Measured 2019-12-05 03:17:00 63.00 inches Body Temperature 2019-12-05 03:17:00 98.32 degrees Heart Rate 2019-12-05 03:17:00 Respiratory Rate 2019-12-05 03:17:00 BP Systolic 2019-10-17 16:44:00 BP Diastolic 2019-10-17 16:44:00 Weight Measured 2019-10-17 16:44:00 230.00 pounds Height Measured 2019-10-17 16:44:00 63.00 inches Body Temperature 2019-10-17 16:44:00 98.32 degrees Heart Rate 2019-10-17 16:44:00 Respiratory Rate 2019-10-17 16:44:00 BP Systolic 2017-04-13 13:01:00 141 mm[Hg] BP Diastolic 2017-04-13 13:01:00 84 mm[Hg] Weight Measured 2017-04-13 13:01:00 220.00 pounds Height Measured 2017-04-13 13:01:00 63.00 inches Body Temperature 2017-04-13 13:01:00 98.00 degrees Heart Rate 2017-04-13 13:01:00 56.00 /min Respiratory Rate 2017-04-13 13:01:00 20.00 /min Procedures Procedure Date / Time Performing Clinician Source Performed POCT GLUCOSE (AUTOMATED) 2022-05-15 12:16:00 Jb Rice Sabrina [facility] POCT GLUCOSE (AUTOMATED) 2022-05-15 01:09:00 Jb Rice Uni [facility] POCT GLUCOSE (AUTOMATED) 2022-05-14 21:25:00 [facility] 2022-05-14 16:18:00 Jb Rice [facility] MR LUMBAR SPINE WO 2022-05-14 14:24:[address] [facility] POCT GLUCOSE (AUTOMATED) 2022-05-14 12:34:00 Jb Rice [facility] POCT GLUCOSE (AUTOMATED) 2022-05-14 01:21:00 Jb Rice [facility] POCT GLUCOSE (AUTOMATED) 2022-05-13 22:03:00 Jb Rice [facility] CBC WITH DIFF 2022-05-13 20:46:00 Rickey Cummings [facility] POCT GLUCOSE (AUTOMATED) 2022-05-13 16:52:00 Jb Rice [facility] POCT GLUCOSE (AUTOMATED) 2022-05-13 12:58:00 Jb Rice [facility] BASIC METABOLIC PANEL 2022-05-13 09:43:00 Rickey Cummings [facility] (NA, K, CL, CO2, GLUCOSE, Medica l Branch BUN, CREATININE, [place]) CBC WITHOUT DIFF 2022-05-13 09:43[facility] 2022-05-13 01:03:00 Jb Rice [facility] POCT GLUCOSE (AUTOMATED) 2022-05-12 21:07:00 bJ Rice Uni [facility] POCT GLUCOSE (AUTOMATED) 2022-05-12 16:27:00 SagarvalentinJb [facility] POCT GLUCOSE (AUTOMATED) 2022-05-12 12:22:00 KrystalJb [facility] BASIC METABOLIC PANEL 2022-05-12 09:05:00 [facility] (NA, K, CL, CO2, GLUCOSE, Feli, Chris [facility] ical Branch BUN, CREATININE, CA) CBC WITH DIFF 2022-05-12 09:05:00 [facility] [place] Feli, [facility] GLYCOSYLATED HEMOGLOBIN 2022-05-12 09:05:00 Jose Hernandez [facility] POCT GLUCOSE (AUTOMATED) 2022-05-12 09:03:00 Krystal Jb [facility] POCT GLUCOSE (AUTOMATED) 2022-05-12 04:59:00 Krystal Jb [facility] POCT GLUCOSE (AUTOMATED) 2022-05-12 01:14:00 KrystalJb [facility] POCT GLUCOSE (AUTOMATED) 2022-05-11 21:43:00 KrystalEveJb [facility] POCT GLUCOSE (AUTOMATED) 2022-05-11 16:34:00 KrystalJb [facility] POCT GLUCOSE (AUTOMATED) 2022-05-11 12:36:00 Krystal Jb [facility] BASIC METABOLIC PANEL 2022-05-11 11:35:00 Jade Dasilva [facility] (NA, K, CL, CO2, GLUCOSE, Medica l Branch BUN, CREATININE, CA) PHOSPHORUS 2022-05-11 09:21:00 Jade Dasilva [facility] MAGNESIUM 2022-05-11 09:21:00 Jade Dasilva [facility] CBC WITH DIFF 2022-05-11 09:21:00 Jade Dasilva [facility] POCT GLUCOSE (AUTOMATED) 2022-05-11 09:20:00 Jb Rice [facility] POCT GLUCOSE (AUTOMATED) 2022-05-11 05:38:00 Jb Rice Sabrina [facility] POCT GLUCOSE (AUTOMATED) 2022-05-11 00:57:00 Jb Rice Sabrina [facility] POCT GLUCOSE (AUTOMATED) 2022-05-10 21:39:00 Jb Rice Sabrina versity of [facility] POCT GLUCOSE (AUTOMATED) 2022-05-10 16:34:00 Jb Rice Sabrina versity of [facility] POCT GLUCOSE (AUTOMATED) 2022-05-10 12:49:00 Jb Rice Sabrina versity of [facility] BASIC METABOLIC PANEL 2022-05-10 09:54:00 [facility] ([facility], K, CL, CO2, GLUCOSE, Medica l Branch BUN, CREATININE, CA) CBC WITH DIFF 2022-05-10 09:54:[facility] POCT GLUCOSE (AUTOMATED) 2022-05-10 09:51:00 Jb Rice Sabrina versity of [facility] POCT GLUCOSE (AUTOMATED) 2022-05-10 05:21:00 Jb Rice Sabrina versity of [facility] POCT GLUCOSE (AUTOMATED) 2022-05-10 00:59:00 Jb Rice Sabrina versity of [facility] POCT GLUCOSE (AUTOMATED) 2022-05-09 16:50:00 Jb Rice Sabrina versity of [facility] POCT GLUCOSE (AUTOMATED) 2022-05-09 12:53:00 Jb Rice Sabrina [facility] POCT GLUCOSE (AUTOMATED) 2022-05-09 09:19:00 Jb Rice Sabrina [facility] POCT GLUCOSE (AUTOMATED) 2022-05-09 06:20:00 Jb Rice Uni [facility] POCT GLUCOSE (AUTOMATED) 2022-05-09 00:52:00 Jb Rice Sabrina versity of [facility] POCT GLUCOSE (AUTOMATED) 2022-05-08 21:43:00 Jb Rice [facility] POCT GLUCOSE (AUTOMATED) 2022-05-08 21:43:00 KrystalJb [facility] POCT GLUCOSE (AUTOMATED) 2022-05-08 16:21:00 KrystalJb [facility] POCT GLUCOSE (AUTOMATED) 2022-05-08 16:21:00 Krystal Jb [facility] POCT GLUCOSE (AUTOMATED) 2022-05-08 12:36:00 Sagaridamervat Jb [facility] POCT GLUCOSE (AUTOMATED) 2022-05-08 12:36:00 Krystal Jb [facility] PHOSPHORUS 2022-05-08 09:21:00 Krystal [facility] MAGNESIUM 2022-05-08 09:[facility] 2022-05-08 09:21:00 Krsytal [facility] (NA, K, CL, CO2, GLUCOSE, Medica l Branch BUN, CREATININE, CA) CBC WITH DIFF 2022-05-08 09:21:00 Krystal [facility] PHOSPHORUS 2022-05-08 09:21:00 Krystal [facility] MAGNESIUM 2022-05-08 09:21:00 Krystal [facility] BASIC METABOLIC PANEL 2022-05-08 09:21:00 Krystal [facility] (NA, K, CL, CO2, GLUCOSE, Medica l Branch BUN, CREATININE, CA) CBC WITH DIFF 2022-05-08 09:21:00 Krystal [facility] POCT GLUCOSE (AUTOMATED) 2022-05-08 09:16:00 Jb Rice [facility] POCT GLUCOSE (AUTOMATED) 2022-05-08 09:16:00 Krystal Jb [facility] POCT GLUCOSE (AUTOMATED) 2022-05-08 05:50:00 Jb Rice [facility] POCT GLUCOSE (AUTOMATED) 2022-05-08 05:50:00 KrystalJb [facility] POCT GLUCOSE (AUTOMATED) 2022-05-08 00:41:00 SagarvalentinJb [facility] POCT GLUCOSE (AUTOMATED) 2022-05-08 00:41:00 SagarvalentinJb [facility] POCT GLUCOSE (AUTOMATED) 2022-05-07 21:00:00 SagarvalentinEveJb [facility] POCT GLUCOSE (AUTOMATED) 2022-05-07 21:00:00 SagarvalentinJb [facility] COLOSTOMY REVISION 2022-05-07 17:59:00 Sandeep [facility] WOUND VAC PLACEMENT 2022-05-07 17:59:00 Sandeep [facility] COLOSTOMY REVISION 2022-05-07 17:59:00 Sandeep [facility] WOUND VAC PLACEMENT 2022-05-07 17:59:00 Sandeep [facility] POCT GLUCOSE (AUTOMATED) 2022-05-07 16:23:00 Maricruz Godfrey [facility] POCT GLUCOSE (AUTOMATED) 2022-05-07 16:23:00 Maricruz Godfrey [facility] POCT GLUCOSE (AUTOMATED) 2022-05-07 13:21:00 Maricruz Godfrey [facility] POCT GLUCOSE (AUTOMATED) 2022-05-07 13:21:00 Maricruz Godfrey [facility] PHOSPHORUS 2022-05-07 08:16:00 Krystal [facility] MAGNESIUM 2022-05-07 08:16:00 Krystal [facility] BASIC METABOLIC PANEL 2022-05-07 08:16:00 Jb Rice [facility] (NA, K, CL, CO2, GLUCOSE, Medica l Branch BUN, CREATININE, CA) CBC WITH DIFF 2022-05-07 08:16[facility]-07 08:16:00 Krystal [facility] MAGNESIUM 2022-05-07 08:16:00 [facility] BASIC METABOLIC PANEL 2022-05-07 08:16:[address] [facility] (NA, K, CL, CO2, GLUCOSE, Medica l Branch BUN, CREATININE, CA) CBC WITH DIFF 2022-05-07 08:16:00 [facility] POCT GLUCOSE (AUTOMATED) 2022-05-07 06:04:00 Maricruz Godfrey [facility] POCT GLUCOSE (AUTOMATED) 2022-05-07 06:04:00 Maricruz Godfrey [facility] POCT GLUCOSE (AUTOMATED) 2022-05-07 02:40:00 Maricruz Godfrey [facility] POCT GLUCOSE (AUTOMATED) 2022-05-07 02:40:00 Maricruz Godfrey [facility] POCT GLUCOSE (AUTOMATED) 2022-05-07 01:25:00 Maricruz Godfrey [facility] POCT GLUCOSE (AUTOMATED) 2022-05-07 01:25:00 Maricruz Godfrey [facility] POCT GLUCOSE (AUTOMATED) 2022-05-06 22:00:00 Maricruz Godfrey [facility] POCT GLUCOSE (AUTOMATED) 2022-05-06 22:00:00 Maricruz Godfrey [facility] POCT GLUCOSE (AUTOMATED) 2022-05-06 17:00:00 Maricruz Godfrey [facility] POCT GLUCOSE (AUTOMATED) 2022-05-06 17:00:00 Maricruz Godfrey [facility] POCT GLUCOSE (AUTOMATED) 2022-05-06 13:48:00 Maricruz Godfrey [facility] POCT GLUCOSE (AUTOMATED) 2022-05-06 13:48:00 Maricruz Godfrey [facility] POCT GLUCOSE (AUTOMATED) 2022-05-06 10:02:00 Maricruz Godfrey [facility] POCT GLUCOSE (AUTOMATED) 2022-05-06 10:02:00 Maricruz Godfrey [facility] POCT GLUCOSE (AUTOMATED) 2022-05-06 09:00:00 Maricruz Godfrey [facility] POCT GLUCOSE (AUTOMATED) 2022-05-06 09:00:00 Maricruz Godfrey [facility] POCT GLUCOSE (AUTOMATED) 2022-05-06 06:24:00 Maricruz Godfrey [facility] POCT GLUCOSE (AUTOMATED) 2022-05-06 06:24:00 Maricruz Godfrey [facility] PHOSPHORUS 2022-05-06 05:25:00 Maineme [facility] MAGNESIUM 2022-05-06 05:25[facility]22-05-06 05:25:00 [facility], [facility], CL, CO2, GLUCOSE, Medica l Branch BUN, CREATININE, CA) CBC WITH DIFF 2022-05-06 05:25:00 [facility]22-05-06 05:25[facility] 2022-05-06 05:25:00 [facility]OLIC PANEL 2022-05-06 05:25:00 [facility] ([facility], K, CL, CO2, GLUCOSE, Medica l Branch BUN, CREATININE, CA) CBC WITH DIFF 2022-05-06 05:25:00 [facility] (AUTOMATED) 2022-05-06 05:22:00 Maricruz Godfrey [facility] POCT GLUCOSE (AUTOMATED) 2022-05-06 05:22:00 Maricruz Godfrey [facility] EXTERNAL PROVIDER RECORDS 2022-05-06 05:01:00 Doctor Unassigned, [facility] Name [facility] EXTERNAL PROVIDER RECORDS 2022-05-06 05:01:00 Doctor Unassigned, [facility] POCT GLUCOSE (AUTOMATED) 2022-05-06 00:30:00 Maricruz Godfrey [facility] POCT GLUCOSE (AUTOMATED) 2022-05-06 00:30:00 Maricruz Godfrey [facility] POCT GLUCOSE (AUTOMATED) 2022-05-05 21:41:00 Maricruz Godfrey [facility] POCT GLUCOSE (AUTOMATED) 2022-05-05 21:41:00 Maricruz Godfrey [facility] POCT GLUCOSE (AUTOMATED) 2022-05-05 17:05:00 Maricruz Godfrey [facility] POCT GLUCOSE (AUTOMATED) 2022-05-05 17:05:00 Maricruz Godfrey [facility] POCT GLUCOSE (AUTOMATED) 2022-05-05 10:58:00 Maricruz Godfrey [facility] POCT GLUCOSE (AUTOMATED) 2022-05-05 10:58:00 Maricruz Godfrey [facility] PHOSPHORUS 2022-05-05 09:32:00 Jade Dasilva [facility] MAGNESIUM 2022-05-05 09:32:00 Brown Jadelora Oro [facility] BASIC METABOLIC PANEL 2022-05-05 09:32:00 Jade Dasilva [facility] (NA, K, CL, CO2, GLUCOSE, Medica l Branch BUN, CREATININE, CA) CBC WITH DIFF 2022-05-05 09:32:00 Jade Dasilva [facility] PHOSPHORUS 2022-05-05 09:32:00 Jade Dasilva [facility] MAGNESIUM 2022-05-05 09:32:00 Brown Jadelora Oro [facility] BASIC METABOLIC PANEL 2022-05-05 09:32:00 Jade Dasilva [facility] (NA, K, CL, CO2, GLUCOSE, Medica l Branch BUN, CREATININE, CA) CBC WITH DIFF 2022-05-05 09:32:00 Jade Dasilva [facility] POCT GLUCOSE (AUTOMATED) 2022-05-04 16:24:00 Maricruz Godfrey [facility] POCT GLUCOSE (AUTOMATED) 2022-05-04 16:24:00 Maricruz Godfrey [facility] BASIC METABOLIC PANEL 2022-05-04 12:45:00 Jose Hernandez [facility] (NA, K, CL, CO2, GLUCOSE, Medica l Branch BUN, CREATININE, CA) CBC WITHOUT DIFF 2022-05-04 12:45:00 David [facility] BASIC METABOLIC PANEL 2022-05-04 12:45:00 David [facility] (NA, K, CL, CO2, GLUCOSE, Medica l Branch BUN, CREATININE, CA) CBC WITHOUT DIFF 2022-05-04 12:45:00 Jose Hernandez [facility] POCT GLUCOSE (AUTOMATED) 2022-05-04 10:58:00 Maricruz Godfrey [facility] POCT GLUCOSE (AUTOMATED) 2022-05-04 10:58:00 Maricruz Godfrey [facility] PHOSPHORUS 2022-05-04 10:47:00 [facility] MAGNESIUM 2022-05-04 10:47:00 [facility] BASIC METABOLIC PANEL 2022-05-04 10:47:00 [facility] (NA, K, CL, CO2, GLUCOSE, Medica l Branch BUN, CREATININE, CA) CBC WITH DIFF 2022-05-04 10:47:00 [facility] PHOSPHORUS 2022-05-04 10:47:00 [facility] 2022-05-04 10:47:00 [facility] BASIC METABOLIC PANEL 2022-05-04 10:47:00 [facility] (NA, K, CL, CO2, GLUCOSE, Medica l Branch BUN, CREATININE, CA) CBC WITH DIFF 2022-05-04 10:47:00 [facility] PO[facility]UCOSE (AUTOMATED) 2022-05-03 23:18:00 Maricruz Godfrey [facility] POCT GLUCOSE (AUTOMATED) 2022-05-03 23:18:00 Maricruz Godfrey [facility] POCT GLUCOSE (AUTOMATED) 2022-05-03 16:27:00 Maricruz Godfrey [facility] POCT GLUCOSE (AUTOMATED) 2022-05-03 16:27:00 Maricruz Godfrey [facility] POCT GLUCOSE (AUTOMATED) 2022-05-03 11:13:00 Maricruz Godfrey [facility] POCT GLUCOSE (AUTOMATED) 2022-05-03 11:13:00 Maricruz Godfrey [facility] PHOSPHORUS 2022-05-03 10:28:00 Jade Dasilva [facility] MAGNESIUM 2022-05-03 10:28:00 Jade Dasilva [facility] BASIC METABOLIC PANEL 2022-05-03 10:28:00 Jade Dasilva [facility] (NA, K, CL, CO2, GLUCOSE, Medica l Branch BUN, CREATININE, CA) CBC WITH DIFF 2022-05-03 10:28:00 Jade Dasilva [facility] PHOSPHORUS 2022-05-03 10:28:00 Jade Dasilva [facility] MAGNESIUM 2022-05-03 10:28:00 Jade Dasilva [facility] BASIC METABOLIC PANEL 2022-05-03 10:28:00 Jade Dasilva [facility] (NA, K, CL, CO2, GLUCOSE, Medica l Branch BUN, CREATININE, CA) CBC WITH DIFF 2022-05-03 10:28:00 Jade Dasilva [facility] POCT GLUCOSE (AUTOMATED) 2022-05-03 06:06:00 Maricruz Godfrey [facility] POCT GLUCOSE (AUTOMATED) 2022-05-03 06:06:00 Maricruz Godfrey [facility] POCT GLUCOSE (AUTOMATED) 2022-05-02 21:30:00 Ernst [facility] POCT GLUCOSE (AUTOMATED) 2022-05-02 21:30:00 Ernst [facility] PHOSPHORUS 2022-05-02 07:44:00 Jade Dasilva [facility] MAGNESIUM 2022-05-02 07:44:00 Jade Dasilva [facility] BASIC METABOLIC PANEL 2022-05-02 07:44:00 Jade Dasilva [facility] (NA, K, CL, CO2, GLUCOSE, Medica l Branch BUN, CREATININE, CA) CBC WITH DIFF 2022-05-02 07:44:00 Jade Dasilva [facility] PHOSPHORUS 2022-05-02 07:44:00 Jade Dasilva [facility] MAGNESIUM 2022-05-02 07:44:00 Jade Dasilva [facility] BASIC METABOLIC PANEL 2022-05-02 07:44:00 Jade Dasilva [facility] (NA, K, CL, CO2, GLUCOSE, Medica l Branch BUN, CREATININE, CA) CBC WITH DIFF 2022-05-02 07:44:00 Jade Dasilva [facility] POCT GLUCOSE (AUTOMATED) 2022-05-01 23:24:00 Ernst [facility] POCT GLUCOSE (AUTOMATED) 2022-05-01 23:24:00 Sandeep [facility] POCT GLUCOSE (AUTOMATED) 2022-05-01 17:40:00 Sandeep [facility] POCT GLUCOSE (AUTOMATED) 2022-05-01 17:40:00 Ernst [facility] PHOSPHORUS 2022-05-01 08:54:00 [facility] 2022-05-01 08:54:00 [facility] HEPATIC FUNCTION PANEL 2022-05-01 08:54:00 [facility] ([id number]) (ALB,T.PRO,[facility] T,BU/BC,ALT,AST,ALK PHOS) BASIC METABOLIC PANEL 2022-05-01 08:54:00 [facility] (NA, K, CL, CO2, GLUCOSE, Medica l Branch BUN, CREATININE, CA) CBC WITH DIFF 2022-05-01 08:54:00 [facility] PHOSPHORUS 2022-05-01 08:54:00 [facility] MAGNESIUM 2022-05-01 08:54:00 [facility] HEPATIC FUNCTION PANEL 2022-05-01 08:54:00 [facility] ([id number]) (ALB,T.PRO,BILI Medical Branch T,BU/BC,ALT,AST,ALK PHOS) BASIC METABOLIC PANEL 2022-05-01 08:54:00 [facility] (NA, K, CL, CO2, GLUCOSE, Medica l Branch BUN, CREATININE, CA) CBC WITH DIFF 2022-05-01 08:54:00 [facility] POCT GLUCOSE (AUTOMATED) 2022-04-30 23:29:00 Ernst [facility] POCT GLUCOSE (AUTOMATED) 2022-04-30 23:29:00 Ernst [facility] PHOSPHORUS 2022-04-30 09:20:00 Jade Dasilva [facility] MAGNESIUM 2022-04-30 09:20:00 Brown [facility] THYROID STIMULATING 2022-04-30 09:20:00 [facility]OLIC PANEL 2022-04-30 09:20:00 Jade Dasilva [facility] (NA, K, CL, CO2, GLUCOSE, Medica l Branch BUN, CREATININE, CA) CBC WITH DIFF 2022-04-30 09:20:00 Brown [facility] PHOSPHORUS 2022-04-30 09:20:00 Brown [facility] MAGNESIUM 2022-04-30 09:20:00 Brown [facility] THYROID STIMULATING 2022-04-30 09:20:00 [facility] BASIC METABOLIC PANEL 2022-04-30 09:20:00 Brown Jadelora Oro [facility] (NA, K, CL, CO2, GLUCOSE, Medica l Branch BUN, CREATININE, CA) CBC WITH DIFF 2022-04-30 09:20:00 Jade Dasilva [facility] POCT GLUCOSE (AUTOMATED) 2022-04-30 04:50:00 Ernst [facility] POCT GLUCOSE (AUTOMATED) 2022-04-30 04:50:00 Ernst [facility] POCT GLUCOSE (AUTOMATED) 2022-04-30 01:34:00 Ernst [facility] POCT GLUCOSE (AUTOMATED) 2022-04-30 01:34:00 Ernst [facility] POCT GLUCOSE (AUTOMATED) 2022-04-29 22:58:00 Ernst [facility] POCT GLUCOSE (AUTOMATED) 2022-04-29 22:58:00 Ernst [facility] PHOSPHORUS 2022-04-29 20:07:00 [facility] 2022-04-29 20:07:00 [facility] BAS[facility] MET[facility]OLIC PANEL 2022-04-29 20:07:00 [facility] (NA, K, CL, CO2, GLUCOSE, Medica l Branch BUN, CREATININE, CA) PHOSPHORUS 2022-04-29 20:07:00 [facility] 2022-04-29 20:07[facility]00 [facility]EL 2022-04-29 20:07:00 [facility] (NA, K, CL, CO2, GLUCOSE, Medica l Branch BUN, CREATININE, CA) PHOSPHORUS 2022-04-29 08:29:00 Brown Jade [facility] MAGNESIUM 2022-04-29 08:29:00 Brown [facility] BASIC METABOLIC PANEL 2022-04-29 08:29:00 Brown Jadelora Oro [facility] (NA, K, CL, CO2, GLUCOSE, Medica l Branch BUN, CREATININE, CA) CBC WITH DIFF 2022-04-29 08:29:00 Brown Jade [facility] PHOSPHORUS 2022-04-29 08:29:00 Brown [facility] MAGNESIUM 2022-04-29 08:29:00 Brown [facility] BASIC METABOLIC PANEL 2022-04-29 08:29:00 Brown Jadelora Oro [facility] (NA, K, CL, CO2, GLUCOSE, Medica l Branch BUN, CREATININE, CA) CBC WITH DIFF 2022-04-29 08:29:00 Brown [facility] PREPARE PACKED RBC 2022-04-29 01:44:36 [facility] RBC 2022-04-29 01:44:[address] [facility] PHOSPHORUS 2022-04-28 21:01:00 Olivia Zamudio [facility] MAGNESIUM 2022-04-28 21:01:00 Olivia Zamudio [facility] BASIC METABOLIC PANEL 2022-04-28 21:01:00 Olivia Zamudio [facility] (NA, K, CL, CO2, GLUCOSE, Medica l Branch BUN, CREATININE, CA) CBC WITH DIFF 2022-04-28 21:01:00 Olivia Zamudio [facility] PHOSPHORUS 2022-04-28 21:01:00 Olivia Zamudio [facility] MAGNESIUM 2022-04-28 21:01:00 Olivia Zamudio [facility] BASIC METABOLIC PANEL 2022-04-28 21:01:00 Olivia Zamudio [facility] (NA, K, CL, CO2, GLUCOSE, Medica l Branch BUN, CREATININE, CA) CBC WITH DIFF 2022-04-28 21:01:00 Olivia Zamudio [facility] PHOSPHORUS 2022-04-28 20:03:00 Olivia Zamudio [facility] MAGNESIUM 2022-04-28 20:03:00 Olivia Zamudio [facility] BASIC METABOLIC PANEL 2022-04-28 20:03:00 Olivia Zamudio [facility] (NA, K, CL, CO2, GLUCOSE, Medica l Branch BUN, CREATININE, CA) PHOSPHORUS 2022-04-28 20:03:00 Olivia Zamudio [facility] MAGNESIUM 2022-04-28 20:03:00 Olivia Zamudio [facility] BASIC METABOLIC PANEL 2022-04-28 20:03:00 Olivia Zamudio [facility] (NA, K, CL, CO2, GLUCOSE, Medica l Branch BUN, CREATININE, CA) XR CHEST 1 VW 2022-04-28 16:15:00 Olivia Zamudio [facility] XR CHEST 1 VW 2022-04-28 16:15:00 Olivia Zamudio [facility] XR CHEST 1 VW 2022-04-28 16:15:00 Olivia Zamudio [facility] POCT GLUCOSE (AUTOMATED) 2022-04-28 12:03:00 Ernst [facility] POCT GLUCOSE (AUTOMATED) 2022-04-28 12:03:00 Ernst [facility] POCT GLUCOSE (AUTOMATED) 2022-04-28 12:03:00 Ernst [facility] MRSA / MSSA SCREEN BY 2022-04-28 09:46:00 [facility] MRSA / MSSA SCREEN BY 2022-04-28 09:46:00 Green, [facility] PCR, [facility] MRSA / MSSA SCREEN BY 2022-04-28 09:46:00 Green [facility] PCR, [facility] PHOSPHORUS 2022-04-28 08:48:00 [facility] 2022-04-28 08:48:00 [facility] BASIC METABOLIC PANEL 2022-04-28 08:48:00 [facility] (NA, K, CL, CO2, GLUCOSE, Medica l Branch BUN, CREATININE, CA) CBC WITH DIFF 2022-04-28 08:48:00 [facility] 2022-04-28 08:48:00 [facility] 2022-04-28 08:48:00 [facility] BASIC METABOLIC PANEL 2022-04-28 08:48:00 [facility] (NA, K, CL, CO2, GLUCOSE, Medica l Branch BUN, CREATININE, CA) CBC WITH DIFF 2022-04-28 08:48:00 [facility] 2022-04-28 08:48:00 [facility] 2022-04-28 08:48:00 [facility] BASIC METABOLIC PANEL 2022-04-28 08:48:00 Iris Lacy [facility] (NA, K, CL, CO2, GLUCOSE, Medica l Branch BUN, CREATININE, CA) CBC WITH DIFF 2022-04-28 08:48:00 Regino [facility] XR CHEST 1 VW 2022-04-28 06:02:00 [facility] XR CHEST 1 VW 2022-04-28 06:02:[address] [facility] XR CHEST 1 VW 2022-04-28 06:02:00 [facility] AC PANEL 20 + LACTIC ACID 2022-04-28 03:59:[address] [facility] AC PANEL 20 + LACTIC ACID 2022-04-28 03:59:[address] [facility] AC PANEL 20 + LACTIC ACID 2022-04-28 03:59:00 Spencer Euceda [facility] SURGICAL PATHOLOGY EXAM 2022-04-28 01:19:[address] [facility] SURGICAL PATHOLOGY EXAM 2022-04-28 01:19:[address] [facility] FUNGUS (ROUTINE) CULTURE 2022-04-28 00:14:00 Ernst [facility] BODY FLUID 2022-04-28 00:14:00 Sandeep [facility] CULTURE(AEROBIC/ANAEROBIC Medica l Branch ) AFB CULTURE 2022-04-28 00:14:00 Sandeep [facility] BODY FLUID 2022-04-28 00:14:00 Sandeep [facility] CULTURE(AEROBIC/ANAEROBIC Medica l Branch ) FUNGUS (ROUTINE) CULTURE 2022-04-28 00:14:00 Ernst [facility] AFB CULTURE 2022-04-28 00:14:00 Sandeep [facility] BODY FLUID 2022-04-28 00:14:00 Sandeep [facility] CULTURE(AEROBIC/ANAEROBIC Medica l Branch ) FUNGUS (ROUTINE) CULTURE 2022-04-28 00:14:00 Ernst [facility] ABG+COOX+NA+K+GLU+CA2+ 2022-04-28 00:08:00 Ernst Hopkins [facility] ABG+COOX+NA+K+GLU+CA2+ 2022-04-28 00:08:00 Ernst Hopkins [facility] EXPLORATORY LAPAROTOMY 2022-04-27 23:11:00 Ernst Hopkins [facility] SIGMOIDECTOMY 2022-04-27 23:11:00 Ernst Hopkins [facility] EXPLORATORY LAPAROTOMY 2022-04-27 23:11:00 Ernst Hopkins [facility] SIGMOIDECTOMY 2022-04-27 23:11:00 Sandeep [facility] HB ABO GROUPING 2022-04-27 22:06:00 Regino [facility] HB ABO GROUPING 2022-04-27 22:06:00 Regino [facility] HB ABO GROUPING 2022-04-27 22:06:00 Regino [facility] COVID-19 (ID NOW RAPID 2022-04-27 21:48:00 [facility]) Medical Branch COVID-19 (ID NOW RAPID 2022-04-27 21:48:[address] [facility] TESTING) Medical Branch LAB ONLY COVID 2022-04-27 21:48:00 Ernst [facility] COVID-19 (ID NOW RAPID 2022-04-27 21:48:[address] [facility] TESTING) Medical Branch LAB ONLY COVID 2022-04-27 21:48:00 Ernst [facility] LACTIC ACID WHOLE BLOOD 2022-04-27 12:44:00 Lorraine Shaver [facility] ABDOMEN PELVIS WO 2022-04-27 12:06:13 [facility] CONTRAST [facility] Branch LIPASE 2022-04-27 10:27:00 Lorraine Shaver [facility] COMP. METABOLIC PANEL 2022-04-27 10:27:00 Lorraine Shaver [facility] ([id number]) [facility] CBC WITH DIFF 2022-04-27 10:27:00 Lorraine Shaver [facility] ASSIGNMENT OF BENEFITS 2022-04-27 10:23:13 Doctor Unassigned, [facility] CONSENT/REFUSAL FOR 2022-04-27 10:22:55 Doctor Unassigned, [facility] DIAGNOSIS AND TREATMENT [place] [facility] URINALYSIS 2022-04-27 10:08:00 Lorraine Shaver [facility] VANCOMYCIN TROUGH 2022-04-22 10:32:00 Aliya Caruso [facility] BASIC METABOLIC PANEL 2022-04-22 10:31:00 Del Jay [facility] (NA, K, CL, CO2, GLUCOSE, Medica l Branch BUN, CREATININE, CA) CBC WITHOUT DIFF 2022-04-22 10:31:00 Del Jay [facility] CBC WITH DIFF 2022-04-21 16:17:00 Aliya Caruso [facility] PROTHROMBIN TIME / INR 2022-04-21 16:17:00 Aliya Caruso [facility] WOUND CULTURE 2022-04-21 15:22:00 Del Jay [facility] COMP. METABOLIC PANEL 2022-04-21 11:08:00 Aliya Caruso [facility] ([id number]) [facility] WOUND CULTURE 2022-04-21 11:08:00 Aliya Caruso [facility] CT FEMUR RIGHT W CONTRAST 2022-04-20 19:04:00 Iris Krishnan [facility] CT FEMUR LEFT W CONTRAST 2022-04-20 16:53:37 Iris Krishnan [facility] BLOOD CULTURE SCREEN 2022-04-20 15:13:00 [facility] COMP. METABOLIC PANEL 2022-04-20 15:13:00 Iris Krishnan [facility] ([id number]) [facility] CBC WITH DIFF 2022-04-20 15:13:00 Iris Krishnan [facility] BLOOD CULTURE SCREEN 2022-04-20 14:59:00 Iris Krishnan [facility] XR FEMUR 2 VW RIGHT 2022-04-20 14:35:08 Iris Krishnan [facility] XR HIPS 3 VW RIGHT 2022-04-20 14:35:08 Iris Krishnan [facility] HOME HEALTH - OTHER 2022-02-03 05:01:00 [facility] HEALTH - OTHER 2022-01-16 05:01:00 [facility] HEALTH - OTHER 2021-12-05 05:01:00 [facility] Plan of Care Planned Activity Planned Date Details Comments Source Goal Plan of Care Note [code = 40315-5] Goal Plan of Care Note [code = 73625-0] Goal Plan of Care Note [code = 91221-9] Goal Plan of Care Note [code = 49914-3] Goal Plan of Care Note [code = 83843-3] Goal Plan of Care Note [code = 71824-2] Goal Plan of Care Note [code = 35946-2] Goal Plan of Care Note [code = 14162-8] Goal Plan of Care Note [code = 85749-7] Goal Plan of Care Note [code = 30336-2] Goal Plan of Care Note [code = 08976-0] Goal Plan of Care Note [code = 19907-9] Goal Plan of Care Note [code = 79194-4] Goal Plan of Care Note [code = 84495-6] Goal Plan of Care Note [code = 86582-2] Goal Plan of Care Note [code = 91292-8] Encounters Start End Encounter Admission Attending Care Care Encounter Source Date/Time Date/Time Type Type Clinicians Facility Department ID 2021-05-12 Inpatient [facility] [id number] Univers 00:10:15 PATRICK sanford [facility] 2021-05-11 Inpatient U LAURIE [facility] SOR [id number] Univers 23:41:29 MARICRUZ ity [facility] 2021-05-09 Emergency [facility] [id number] Univers 19:36:35 ity of [facility] 2021-05-09 Emergency [facility] [id number] Univers 19:36:11 ity of [facility] 2021-05-08 Emergency [facility] [id number] Univers 20:49:32 ity of [facility] 2022-04-27 2022-05-15 Inpatient X RICKEY CUMMINGS [facility] [id number] Univers 11:41:00 11:29:00 RICKEY CUMMINGS [facility] 2022-04-27 2022-05-15 Hospital Ernst Hopkins [facility] 1.2.840.1 [id number] Univers 11:41:00 11:29:00 Encounter Maricruz Godfrey [facility] 350.1.1 3.10 ity of [place] 4.2.7.2.686 [facility] [phone] [address] ([facility]) 2022-05-07 2022-05-07 [facility] 1.2.840.114 [id number] Univers 12:25:00 14:39:00 Ernst [facility] 350.1.13.10 ity of CARE 4.2.7.2.686 [facility] AT [id number] Al dicdariusz ENRIQUE 020 [facility] 2022-04-28 2022-04-28 Outpatient R JUAN MANUEL LOPEZ [facility] [id number] Univers 13:30:00 13:30:00 [facility] 2022-04-27 2022-04-27 [facility] 1.2.840.114 [id number] Univers 18:55:00 23:23:00 Ernst SPECIALTY 350.1.13.10 ity of CARE 4.2.7.2.686 [facility] AT [phone] Al dicdariusz VICTORY 020 [facility] 2022-04-27 2022-04-27 Emergency X ROBERT [facility] ERT [id number] Univers 04:18:00 11:08:00 LIBBY ity of [facility] 2022-04-27 2022-04-27 Emergency Lorraine Shaver [facility] 1.2.840 .114 [id number] Univers 04:18:00 11:08:00 Libby Daniel 350.1.13.1 0 ity of [place] 4.2.7.2.[address] [facility] [id number] [facility] 084 Branch 2022-04-27 2022-04-27 Telephone Sandeep [facility] [id number] Univers 00:00:00 00:00:00 [facility] 350.1.13.10 it y of CANCER 4.2.7.2.686 [facility] [id number] Med ical MDA 188 Branch 2022-04-23 2022-04-23 Transition ABIGAIL Oates 1.2.840.114 [id number] Univers 00:00:00 00:00:00 of Care Susan SIMMS 350.1.13.10 i ty of [place] [address] [place] [address] [id number] [facility] 403 Branch 2022-04-20 2022-04-22 Outpatient X MERCEDES ALEXIS [facility] [id number] Univers 09:05:00 20:49:00 ity of [facility] 2022-04-20 2022-04-22 Emergency Mercedes Alexis 1.2.840.11 [id number] Univers 09:05:00 20:49:00 Iris Krishnan 350.1. 13.10 ity of [facility] 4.2.7.2.686 [place] [id number] [facility] 093 Branch 2022-04-15 2022-04-15 Telephone CANDE Lopez 1.2.840.114 [id number] Univers 00:00:00 00:00:00 Juan Manuel Kevin HEALTH 350.1.13.10 i ty of CLINICS 4.2.7.2.686 [facility] s [id number] [facility] 089 Branch 2022-04-09 2022-04-09 Outpatient [id number] 00:00:00 00:00:00 Visit [id number] 2022-03-13 2022-03-13 [facility] 1.2.840.114 [id number] Univers 00:00:00 00:00:00 Juan Manuel S Y HEALTH 350.1.13.10 i ty [place] [id number] [place] [address]9939 Branch 2022-03-12 2022-03-12 Telephone [facility] 1.2.840.114 [id number] Univers 00:00:00 00:00:00 Juan Manuel S Y HEALTH 350.1.13.10 i ty [place] [id number] [place] 909939 Branch 2022-02-11 2022-02-11 Telephone [facility] 1.2.840.114 [id number] Univers 00:00:00 00:00:00 Juan Manuel S Y HEALTH 350.1.13.10 i ty of [place] [id number] [facility] 0[address] [place] 2022-02-03 2022-02-03 Orders Doctor MARICRUZ 1.2.840.114 [id number] Univers 00:00:00 00:00:00 Only Unassigned, YADY 350.1.13.10 ity of [place] [facility] 4.2.7.2.686 Luiz as [phone] [facility] 009 Branch 2022-01-27 2022-01-27 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 [facility] 1.2.840.114 [id number] Univers 13:45:00 14:00:00 Visit John Juan Manuel S Y HEALTH 350.1.13.10 ity of [place] [id number] [facility] 316 Branch 2022-01-27 2022-01-27 Office CANDE Lopez 1.2.840.114 [id number] Univers 12:00:00 12:30:00 Visit Juan Manuel Francisco [facility] 350.1.13.10 i ty of [place] [id number] [place] [address]9939 [place] 2022-01-27 2022-01-27 Outpatient R JUAN MANUEL LOPEZ [facility] [id number] Univers 12:00:00 12:00:00 JUAN MANUEL LOPEZ [facility] 2022-01-23 2022-01-23 Telephone CANDE Lopez [id number] Univers 00:00:00 00:00:00 Juan Manuel TRINH 350.1.13.10 i ty [id number] [id number] [address] 2022-01-20 2022-01-20 Outpatient R JUAN MANUEL LOPEZ [facility] [id number] Univers 15:30:00 15:30:00 JUAN MANUEL LOPEZ luanne [facility] 2022-01-16 2022-01-16 Orders Doctor MARICRUZ 1.2.840.114 [id number] Univers 00:00:00 00:00:00 Only Unassigned, YADY 350.1.13.10 ity of [facility] 4.2.7.2.686 Luiz as [phone] [address] 2021-12-31 2021-12-31 Orders Doctor MARICRUZ 1.2.840.114 [id number] Univers 00:00:00 00:00:00 Only Unassigned, YADY 350.1.13.10 ity of [place] [facility] 4.2.7.2.686 Luiz as [phone] [address] 2021-12-05 2021-12-05 Orders Doctor MARICRUZ 1.2.840.114 [id number] Univers 00:00:00 00:00:00 Only Unassigned, YADY 350.1.13.10 ity of [place] [facility] 4.2.7.2.686 Luiz as [phone] [address] 2021-11-26 2021-11-26 Orders Doctor MARICRUZ 1.2.840.114 [id number] Univers 00:00:00 00:00:00 Only Unassigned, YADY 350.1.13.10 ity of [place] [facility] 4.2.7.2.686 Luiz as [phone] [address] 2021-11-21 2021-11-21 Outpatient Arvin ROMAN [facility] [id number] Univers 10:10:00 11:02:13 PATRICK sanford of [facility] 2021-11-21 2021-11-21 [facility] 1.2.840.114 [id number] [facility] 10:10:00 11:02:13 Visit Patrick Gay SPECIALTY 350.1.13.10 [place] [phone] [address] 2021-11-19 2021-11-19 Telephone CANDE Lopez 1.2.840.114 [id number] Univers 00:00:00 00:00:00 [facility] 350.1.13.10 i ty of [place] [phone] [facility] 0[address] [place] 2021-11-18 2021-11-18 Orders Doctor ALCANTARA 1.2.840.114 [id number] Univers 00:00:00 00:00:00 Only Unassigned, YADY 350.1.13.10 ity of [place] [facility] 4.2.7.2.686 [place] as [phone] [address] 2021-11-08 2021-11-08 Orders Doctor ALCANTARA 1.2.840.114 [id number] Univers 00:00:00 00:00:00 Only Unassigned, YADY 350.1.13.10 ity of [facility] [facility] 4.2.7.2.686 [place] [phone] [address] 2021-11-06 2021-11-06 Telephone Stefanie STOUT 1.2.840.114 [id number] Univers 00:00:00 00:00:00 njumon, PEDIATRIC 350.1.13.10 [place] [phone] [facility] PRIMARY [address] CARE CLINIC 2021-10-30 2021-10-30 Telephone John, CANDE 1.2.840.114 [id number] Univers 00:00:00 00:00:00 Juan Manuel S Y HEALTH 350.1.13.10 i ty of [place] [phone] [facility] [address] 2021-10-29 2021-10-29 Orders Doctor MARICRUZ 1.2.840.114 [id number] Univers 00:00:00 00:00:00 Only Unassigned, YADY 350.1.13.10 ity of [place] [facility] 4.2.7.2.686 Luiz as [phone] [facility] [address] 2021-10-27 2021-10-27 Outpatient R [facility] [id number] Univers 00:00:00 00:00:00 ity of [facility] 2021-10-27 2021-10-27 Outpatient R [facility] [id number] Univers 00:00:00 00:00:00 ity [facility] 2021-10-17 2021-10-17 Orders Doctor MARICRUZ 1.2.840.114 [id number] Univers 00:00:00 00:00:00 Only Unassigned, YADY 350.1.13.10 ity of [place] [facility] 4.2.7.2.686 Lu[place] as [phone] [facility] [address] 2021-10-14 2021-10-14 Imm/Inj Vaccine, Gal [facility] UNIVERSIT 1.2.840 .114 [id number] Univers 16:20:00 16:30:00 Visit JohnJuan Manuel 350.1.13.10 it[place] of CL[place] [phone] [facility] [address] 2021-10-14 2021-10-14 Outpatient R JUAN MANUEL LOPEZ [facility] [id number] Univers 16:20:00 16:20:00 [facility] 2021-10-14 2021-10-14 Office CANDE Lopez 1.2.840.114 [id number] Univers 14:30:00 15:00:00 Visit Juan Manuel Lopez [facility] 350.1.13.10 i ty of CLINICS 4.2.7.2.686 Chacorta lopez [phone] [facility] [address] 2021-10-14 2021-10-14 Outpatient R JOHN, JUAN MANUEL [facility] [id number] Univers 14:30:00 14:30:00 JUAN MANUEL LOPEZ luanne [facility] 2021-10-14 2021-10-14 Outpatient R JOHN, [facility] [id number] Univers 14:30:00 14:30:00 JOHNJUAN MANUEL CARL [facility] 2021-10-14 2021-10-14 Outpatient R JOHN, [facility] [id number] Univers 14:30:00 14:30:00 JOHNJUAN MANUEL CARL [facility] 2021-10-01 2021-10-01 Outpatient Arvin ROMAN [facility] [id number] Univers 09:20:00 10:46:23 PATRICK sanford [facility] 2021-10-01 2021-10-01 Outpatient Arvin ROMAN [facility] [id number] Univers 09:20:00 10:46:23 PATRICK luanne [facility] 2021-10-01 2021-10-01 Outpatient Arvin ROMAN [facility] [id number] Univers 09:20:00 10:46:23 PATRICK [facility] 2021-10-01 2021-10-01 Office [facility] 1.2.840.114 [id number] Univers 09:20:00 09:30:00 Visit Patrick KUO 350.1.13.10 it y of CARE 4.2.7.2.686 Chacorta lopez STEPHEN [phone] [place] [address] [address] 2021-10-01 2021-10-01 Outpatient Arvin ROMAN [facility] [id number] Univers 09:20:00 09:20:00 [facility] 2021-09-30 2021-09-30 Outpatient Arvin ROMAN, [facility] [id number] Univers 14:50:00 14:50:00 PATRICK sanford [facility] 2021-09-30 2021-09-30 Outpatient R ROMAN, [facility] [id number] Univers 14:50:00 14:50:00 PATRICK sanford [facility] 2021-09-30 2021-09-30 Outpatient Arvin ROMAN [facility] [id number] Univers 14:50:00 14:50:00 PATRICK sanford [facility] 2021-09-19 2021-09-19 Orders Doctor MARICRUZ 1.2.840.114 [id number] Univers 00:00:00 00:00:00 Only Unassigned, YADY 350.1.13.10 [facility] 4.2.7.2.686 [place] [phone] [facility] [address] 2021-09-09 2021-09-09 Transition ABIGAIL Shay 1.2.840.114 [id number] Univers 00:00:00 00:00:00 of Care Arlene RUSTY 350.1.13.10 it [place] [phone] [facility] [address] 2021-09-01 2021-09-08 [facility] [id number] Univers 15:07:00 19:35:00 IRAM sanford o f [facility] 2021-09-01 2021-09-08 [facility] Blake Martin [facility] 1.2.840. 114 [id number] Univers 15:07:00 19:35:00 Encounter JesusctErum wallaceCalvin [facility] 350.1.13.10 ity of Rickey Cummings 4.2.7.2.686 [facility] [phone] [address] ([facility]) 2021-09-05 2021-09-05 Outpatient Arvin ROMAN [facility] [id number] Univers 10:00:00 10:00:00 PATRICK sanford [facility] 2021-09-05 2021-09-05 Outpatient R ABEL, [facility] [id number] Univers 10:00:00 10:00:00 PATRICK ity [facility] 2021-09-02 2021-09-02 Telephone Stefanie 1.2.840.2 [id number] Univers 00:00:00 00:00:00 jordypramod, 49808.1.1 ity of [place] 3.104.2.7 [place] .3.841689 Medica l .8 [place] 2021-09-01 2021-09-01 Nurse Unknown, Attending 1.2.840.1 [id number] Univers 14:45:00 15:07:29 Visit Catherinekatie Rylie 02298.1.1 ity of Nurse, [facility] 3.104.2.7 [place] .3.627235 Medica l .8 [place] 2021-09-01 2021-09-01 Outpatient R AMBAR [facility] [id number] Univers 14:45:00 15:07:29 [facility] ity [facility] 2021-09-01 2021-09-01 Urgent Unknown, Attending 1.2.840.1 [id number] Univers 14:00:00 14:15:00 Care Provider, [facility] 31923.1.1 ity of 3.104.2.7 [place] .3.997695 Medica l .8 [place] 2021-09-01 2021-09-01 Urgent Provider, [facility] 1.2.840.114 [id number] Univers 14:00:00 14:15:00 Care Unknown, Attending PATTY 350.1.13.10 ity of [facility] 4.2.7.2.[address] [facility] [phone] [address] 2021-09-01 2021-09-01 Outpatient R UNKNOWN, [facility] [id number] Univers 14:00:00 14:00:00 ATTENDING ity [facility] 2021-09-01 2021-09-01 Outpatient R UNKNOWN, [facility] [id number] Univers 14:00:00 14:00:00 ATTENDING ity [facility] 2021-09-01 2021-09-01 Outpatient R LYSSA, [facility] [id number] Univers 14:00:00 14:00:00 ATTENDING ity of [facility] 2021-09-01 2021-09-01 Telephone Abel, 1.2.840.8 [id number] Univers 00:00:00 00:00:00 Patrick Gay 09324.1.1 ity of 3.104.2.7 [place] .3.700048 Medica l .8 [place] 2021-09-01 2021-09-01 Telephone Abel, 1.2.840.9 [id number] Univers 00:00:00 00:00:00 Patrick Gay 00043.1.1 ity of 3.104.2.7 [place] .3.871818 Medica l .8 [place] 2021-09-01 2021-09-01 Travel 1.2.840.1 1.2.831.199 [id number] Univers 00:00:00 00:00:00 94888.1.1 350.1.13.10 ity of 3.104.2.7 4.[place].3.698 [place] .3.965835 084.8 Medica l .8 [place] 2021-08-29 2021-08-29 Outpatient R ABEL [facility] [id number] Univers 10:30:00 10:30:00 PATRICK ity of [facility] 2021-08-27 2021-08-27 Telephone Roman, 1.2.840.8 [id number] Univers 00:00:00 00:00:00 Patrick Gay 24004.1.1 ity of 3.104.2.7 [place] .3.740956 Medica l .8 [place] 2021-08-22 2021-08-22 Outpatient Arvin ROMAN [facility] [id number] Univers 11:10:00 11:10:00 PATRICK ity of [facility] 2021-08-21 2021-08-21 Telephone Shaquille-Denys 1.2.840.5 [id number] Univers 00:00:00 00:00:00 njumon, 72478.1.1 ity of [place] 3.104.2.7 [place] .3.277553 Medica l .8 [address] 2021-08-21 2021-08-21 Telephone Abel, 1.2.840.1 [id number] Univers 00:00:00 00:00:00 Patrick Gay 68563.1.1 ity of 3.104.2.7 [place] .3.425746 Medica l .8 Branch 2021-08-20 2021-08-20 [facility] [id number] Univers 11:10:00 11:10:00 PATRICK ity of [facility] 2021-08-19 2021-08-19 Orders Doctor 1.2.840.8 [id number] Univers 00:00:00 00:00:00 Only Unassigned, 37723.1.1 ity of [place] 3.104.2.7 [place] .3.360265 Medica l .8 [address] 2021-08-19 2021-08-19 Refill Abel, 1.2.840.0 [id number] Univers 00:00:00 00:00:00 Patrick Gay 00691.1.1 ity of 3.104.2.7 [place] .3.331103 Medica l .8 Branch 2021-08-12 2021-08-12 Telephone CANDE Lopez 1.2.840.114 [id number] Univers 00:00:00 00:00:00 Juan Manuel S HEALTH 350.1.13.10 i ty of CL[place] 4.2.7.2.[place] [id number] [facility] nancy 0[address] 2021-08-12 2021-08-12 Telephone John, 1.2.840.1 [id number] Univers 00:00:00 00:00:00 Juan Manuel S 24817.1.1 ity of 3.104.2.7 [place] .3.765382 Medica l .8 Branch 2021-08-08 2021-08-08 [facility] 1.2.840.114 [id number] Univers 00:00:00 00:00:00 Patrick Gay PRIMARY 350.1.13.10 it y [place] 4.2.[place].2.[place] [phone] Al dical [address] 2021-08-08 2021-08-08 Telephone Roman, 1.2.840.7 [id number] Univers 00:00:00 00:00:00 Patrick Gay 92967.1.1 ity of 3.104.2.7 [place] .3.542495 Medica l .8 [place] 2021-07-30 2021-07-30 Orders Doctor MARICRUZ 1.2.840.114 [id number] Univers 00:00:00 00:00:00 Only Unassigned, YADY 350.1.13.10 ity of [place] [facility] 4.2.7.2.686 Luiz as [phone] [facility] 00[address] [place] 2021-07-30 2021-07-30 Orders Doctor 1.2.840.8 [id number] Univers 00:00:00 00:00:00 Only Unassigned, 93738.1.1 ity of [place] 3.104.2.7 [place] .3.991822 Medica l .8 [place] 2021-07-29 2021-07-29 [facility] 1.2.840.114 [id number] Univers 00:00:00 00:00:00 Patrick Gay PRIMARY 350.1.13.10 it y [place] 4[place].2.[place] [phone] Al dical [address] 2021-07-29 2021-07-29 Telephone Roman, 1.2.840.3 [id number] Univers 00:00:00 00:00:00 Patrick Gay 19128.1.1 ity of 3.104.2.7 [place] .3.919523 Medica l .8 Branch 2021-07-24 2021-07-24 [facility] 1.2.840.114 [id number] Univers 00:00:00 00:00:00 Patrick Gay SPECIALTY 350.1.13.10 it[place] [id number] Al divina ENRIQUE 198 [facility] 2021-07-24 2021-07-24 Telephone Roman, 1.2.840.2 [id number] Univers 00:00:00 00:00:00 Patrick Gay 66248.1.1 ity of 3.104.2.7 [place] .3.662410 Medica l .8 [place] 2021-07-22 2021-07-22 Orders Doctor MARICRUZ 1.2.840.114 [id number] Univers 00:00:00 00:00:00 Only Unassigned, YADY 350.1.13.10 ity of [place] [facility] 4.2.7.2.686 Luiz as [phone] [facility] 009 [place] 2021-07-22 2021-07-22 Orders Doctor 1.2.840.6 [id number] Univers 00:00:00 00:00:00 Only Unassigned, 98438.1.1 ity of [place] 3.104.2.7 [place] .3.617125 Medica l .8 [place] 2021-07-18 2021-07-18 [facility] [id number] Univers 11:00:00 11:00:00 PATRICK sanford of [facility] 2021-07-15 2021-07-15 [facility] 1.2.840.114 [id number] Univers 00:00:00 00:00:00 Patrick Gay PRIMARY 350.1.13.10 it y of CARE 4.2.7.2.686 Chacorta s STEPHEN [phone] Al divina [address] [place] 2021-07-15 2021-07-15 Telephone Abel 1.2.840.1 [id number] Univers 00:00:00 00:00:00 Patrick Gay 25261.1.1 ity of 3.104.2.7 [place] .3.464453 Medica l .8 [place] 2021-07-11 2021-07-11 Office [facility] 1.2.840.114 [id number] Univers 10:00:00 10:18:55 Visit Patrick Gay SPECIALTY 350.1.13.10 it[place] [phone] Al divina [facility] 2021-07-11 2021-07-11 Outpatient R ABEL [facility] [id number] Univers 10:00:00 10:18:55 PATRICK juvenal [facility] 2021-07-11 2021-07-11 Outpatient R ABEL [facility] [id number] Univers 10:00:00 10:18:55 PATRICK juvenal [facility] 2021-07-11 2021-07-11 Outpatient R ABEL [facility] [id number] Univers 10:00:00 10:18:55 PATRICK juvenal [facility] 2021-07-11 2021-07-11 Outpatient R ABEL [facility] [id number] Univers 10:00:00 10:18:55 PATRICK juvenal [facility] 2021-07-11 2021-07-11 Office Abel, 1.2.840.9 [id number] Univers 10:00:00 10:18:55 Visit Patrick Gay 74174.1.1 ity of 3.104.2.7 [place] .3.862168 Medica l .8 [place] 2021-07-11 2021-07-11 Outpatient R ROMAN, [facility] [id number] Univers 10:00:00 10:18:55 PATRICK juvenal [facility] 2021-07-11 2021-07-11 Outpatient R ABEL [facility] [id number] Univers 10:00:00 10:00:00 PATRICK juvenal [facility] 2021-07-11 2021-07-11 Outpatient R ROMAN, [facility] [id number] Univers 10:00:00 10:00:00 PATRICK elmoreluanne [facility] 2021-07-11 2021-07-11 Letter [facility] 1.2.840.114 [id number] Univers 00:00:00 00:00:00 (Out) Patrick Gay SPECIALTY 350.1.13.10 ity of CARE 4.2.7.2.686 [facility] [phone] Al divina [facility] 2021-07-11 2021-07-11 Letter Abel, 1.2.840.4 [id number] Univers 00:00:00 00:00:00 (Out) Patrick Gay 01030.1.1 ity of 3.104.2.7 [place] .3.868288 Medica l .8 [place] 2021-07-11 2021-07-11 Travel 1.2.840.1 1.2.965.806 [id number] Univers 00:00:00 00:00:00 65767.1.1 350.1.13.10 ity of 3.104.2.7 4.2.7.3.698 [place] .3.047382 084.8 Medica l .8 [place] 2021-07-09 2021-07-09 Orders Doctor MARICRUZ 1.2.840.114 [id number] Univers 00:00:00 00:00:00 Only Unassigned, YADY 350.1.13.10 ity of [place] [facility] 4.2.7.2.686 Luiz as [phone] [facility] nancy 009 [place] 2021-07-09 2021-07-09 Orders Doctor 1.2.840.4 [id number] Univers 00:00:00 00:00:00 Only Unassigned, 72002.1.1 ity of [place] 3.104.2.7 [place] .3.584480 Medica l .8 [place] 2021-06-27 2021-06-27 Telephone Abel MORAULITO 1.2.840.114 [id number] Univers 00:00:00 00:00:00 Patrick Gay SPECIALTY 350.1.13.10 ity [place] 4.2.7.2.686 [place] CENTER AT [phone] Al dical KLAUS [facility] 2021-06-27 2021-06-27 Telephone Abel 1.2.840.0 [id number] Univers 00:00:00 00:00:00 Patrick Gay 41264.1.1 ity of 3.104.2.7 [place] .3.689356 Medica l .8 [place] 2021-06-25 2021-06-25 Orders Doctor MARICRUZ 1.2.840.114 [id number] Univers 00:00:00 00:00:00 Only Unassigned, YADY 350.1.13.10 ity of [place] [facility] 4.2.7.2.686 Luiz as [phone] [facility] [address] 2021-06-25 2021-06-25 Orders Doctor 1.2.840.2 [id number] Univers 00:00:00 00:00:00 Only Unassigned, 59178.1.1 ity of [place] 3.104.2.7 [place] .3.885634 Medica l .8 [place] 2021-06-23 2021-06-23 Telephone Abel [facility] 1.2.840.114 [id number] Univers 00:00:00 00:00:00 Patrick Gay PRIMARY 350.1.13.10 it y [place] 4.2[place].2.[place] 708.8422655 Al dical [address] 2021-06-23 2021-06-23 Telephone Abel, 1.2.840.1 [id number] Univers 00:00:00 00:00:00 Patrick Gay 79936.1.1 ity of 3.104.2.7 [place] .3.196825 Medica l .8 [place] 2021-06-11 2021-06-11 Transition MARINA ShayRoselyn 1.2.840.114 [id number] Univers 00:00:00 00:00:00 of Care Arlene B SIMMS 350.1.13.10 [place] [id number] [facility] 403 [address] 2021-06-11 2021-06-11 Transition Shay, 1.2.840.7 [id number] Univers 00:00:00 00:00:00 of Care Arlene B 17607.1.1 ity of 3.104.2.7 [place] .3.144179 Medica l .8 [place] 2021-06-07 2021-06-10 Inpatient X ABEL [facility] SOR [id number] Univers 02:00:00 19:40:00 PATRICK sanford [facility] 2021-06-07 2021-06-10 [facility] Maricruz Sullivan 1.2.840.11 [id number] Univers 02:00:00 19:40:00 Encounter Patrick Roman 350.1.13 .10 ity [facility] 4.2.7.2.686 [facility] [phone] [facility] 092 [address] 2021-06-07 2021-06-10 [facility] [id number] Univers 02:00:00 19:40:00 PATRICK ity [facility] 2021-06-07 2021-06-10 [facility] Maricruz Sullivan 1.2.840.1 [id number] Univers 02:00:00 19:40:00 Encounter Patrick Roman 95796.1.1 ity of 3.104.2.7 [place] .3.470753 Medica l .8 [address] 2021-06-06 2021-06-07 Emergency X [facility] ERT [id number] Univers 18:42:00 00:43:00 REJI ity of [facility] 2021-06-06 2021-06-07 Emergency [facility] 1.2.077.615 [id number] Univers 18:42:00 00:43:00 Reji NO 350.1.13.10 i ty [facility] 4.2.7.2.[address] [facility] [phone] [facility] 084 [address] 2021-06-06 2021-06-07 Emergency X [facility] ERT [id number] Univers 18:42:00 00:43:00 REJI ity of [facility] 2021-06-06 2021-06-07 Emergency X [facility] ERT [id number] Univers 18:42:00 00:43:00 REJI ity of [facility] 2021-06-06 2021-06-07 Emergency Luciano, 1.2.840.7 [id number] Univers 18:42:00 00:43:00 Reji R 67955.1.1 ity of 3.104.2.7 [place] .3.028735 Medica l .8 Branch 2021-06-06 2021-06-06 Nurse Aracely Keith 1.2.840.114 [id number] Univers 00:00:00 00:00:00 Triage YADY 350.1.13.10 it y of HOSPITAL 4.2.7.2.686 [place] [id number] [facility] 019 [place] 2021-06-06 2021-06-06 [facility] 1.2.840.114 [id number] Univers 00:00:00 00:00:00 Patrick Gay SPECIALTY 350.1.13.10 it[place] [phone] Al divina ENRIQUE 198 [facility] 2021-04-30 2021-04-30 Outpatient [facility] [id number] Univers 00:00:00 00:00:00 ity [facility] 2021-04-30 2021-04-30 Outpatient R [facility] [id number] Univers 00:00:00 00:00:00 ity [facility] 2021-04-30 2021-04-30 Orders Doctor MARICRUZ 1.2.840.114 [id number] Univers 00:00:00 00:00:00 Only Unassigned, YADY 350.1.13.10 ity of [place] [facility] 4.2.7.2.686 Luiz as [phone] [facility] 009 [place] 2021-04-18 2021-04-18 [facility] 1.2.840.114 [id number] Univers 10:43:36 23:59:00 Encounter Patrick Gay SPECIALTY 350.1.13.10 it[place] [phone] Al divina ENRIQUE 809 [facility] 2021-04-18 2021-04-18 [facility] [id number] Univers 11:00:00 11:11:29 PATRICK sanford [facility] 2021-04-18 2021-04-18 [facility] [id number] Univers 11:00:00 11:11:29 [facility]-04[facility]18 2021-04-18 [facility] 1.2.840.114 [id number] Univers 10:25:43 11:11:29 Visit Patrick Victor Hugo SPECIALTY 350.1.13.10 it[place] [phone] Al divina [facility] 2021-04-18 2021-04-18 Office [facility] 1.2.840.114 [id number] Univers 10:25:43 11:11:29 Visit Patrick Gay SPECIALTY 350.1.13.10 it[place] 4[place].2.[place] [phone] Al divina [facility] 2021-04-18 2021-04-18 [facility] [id number] Univers 11:00:00 11:00:00 PATRICK [facility] 2021-04-14 2021-04-14 Office Kaitlin Ojdea UN[facility]ERSIT 1.2.840.11 [id number] Univers 10:55:48 11:55:48 Visit [facility] HEALTH 350.1.13.10 ity of CL[place] [phone] [address] 2021-04-14 2021-04-14 Office Kaitlin Ojeda UN[facility]ERSIT 1.2.840.11 [id number] Univers 10:55:48 11:55:48 Visit [facility] [id number] [id number] [phone] [address] 2021-04-14 2021-04-14 Outpatient Arvin HERZOG [facility] [id number] Univers 11:00:00 11:00:00 [facility] 2021-04-14 2021-04-14 Outpatient R ADELINE [facility] [id number] Univers 11:00:00 11:00:00 OTIS [facility] 2021-04-14 2021-04-14 Outpatient R ADELINE [facility] [id number] Univers 11:00:00 11:00:00 OCTOBER ity [facility] 2021-04-14 2021-04-14 Outpatient Arvin HERZOG [facility] [id number] Univers 11:00:00 11:00:00 OCTOBER ity [facility] 2021-03-21 2021-03-21 [facility] 1.2.840.114 [id number] Univers 00:00:00 00:00:00 Patrick Gay PRIMARY [id number] [id number] [facility] [id number] Al divina [address] [place] [address] 2021-03-14 2021-03-14 Outpatient Arvin ROMAN [facility] [id number] Univers 10:10:00 12:37:09 PATRICK sanford [facility] 2021-03-14 2021-03-14 Outpatient Arvin ROMAN [facility] [id number] Univers 10:10:00 12:37:09 PATRICK luanne [facility] 2021-03-14 2021-03-14 [facility] 1.2.840.114 [id number] Univers 09:39:49 12:37:09 Visit Patrick Gay SPECIALTY [id number] [id number] [phone] Al divina ENRIQUE [address] [facility] 2021-03-14 2021-03-14 Outpatient Arvin ROMAN [facility] [id number] Univers 10:10:00 10:10:00 PATRICK sanford [facility] 2021-03-12 2021-03-12 Orders Doctor MARICRUZ 1.2.840.114 [id number] Univers 00:00:00 00:00:00 Only Unassigned, YADY 350.1.13.10 ity of [place] [facility] 4.2.7.2.686 Lu[place] as [phone] [address] 2021-03-07 2021-03-07 Telephone Abel [facility] 1.2.840.114 [id number] Univers 00:00:00 00:00:00 Patrick Gay PRIMARY 350.1.13.10 [phone] Al divina [address] 2021-03-07 2021-03-07 [facility] 1.2.840.114 [id number] Univers 00:00:00 00:00:00 Patrick W PRIMARY 350.1.13.10 [place] [phone] Al divina [address] 2021-03-03 2021-03-03 [facility] 1.2.840.114 [id number] Univers 00:00:00 00:00:00 Patrick W PRIMARY 350.1.13.10 [place] [phone] Al divina [address] 2021-03-03 2021-03-03 [facility] 1.2.840.114 [id number] Univers 00:00:00 00:00:00 Patrick Gay PRIMARY 350.1.13.10 [place] [phone] Al divina [address] [place] [address] 2021-02-28 2021-02-28 Outpatient R ABEL [facility] [id number] Univers 10:00:00 10:58:09 [facility] 2021-02-28 Outpatient Arvin ROMAN [facility] [id number] Univers 10:00:00 10:58:09 PATRICK sanford [facility] 2021-02-28 2021-02-28 Office [facility] 1.2.840.114 [id number] Univers 09:42:30 10:58:09 Visit Patrick Gay SPECIALTY 350.1.13.10 [place] [phone] Al divina ENRIQUE 198 [facility] 2021-02-28 2021-02-28 Office [facility] 1.2.840.114 [id number] Univers 09:42:30 10:58:09 Visit Patrick Gay SPECIALTY 350.1.13.10 [place] [phone] Al divina [facility] 2021-02-28 2021-02-28 Outpatient R ABEL [facility] [id number] Univers 10:00:00 10:00:00 PATRICK ity of [facility] 2021-02-26 2021-02-26 Orders Doctor MARICRUZ 1.2.840.114 [id number] Univers 00:00:00 00:00:00 Only Unassigned, YADY 350.1.13.10 ity of [place] [facility] 4.2.7.2.686 Luiz as [phone] [address] 2021-02-25 2021-02-25 [facility] 1.2.840.114 [id number] Univers 00:00:00 00:00:00 Patrick Gay SPECIALTY 350.1.13.10 [place] [phone] Al divina [facility] 2021-02-19 2021-02-19 Outpatient R NITO [facility] [id number] Univers 10:40:00 11:37:15 JOHN ity [facility] 2021-02-19 2021-02-19 [facility] [id number] Univers 10:40:00 11:37:15 JOHN ity [facility] 2021-02-19 2021-02-19 Office Nito [facility] 1.2.840.114 [id number] Univers 10:17:05 11:37:15 Visit John SPECIALTY 350.1.13.10 [place] [phone] Al divina [facility] 2021-02-19 2021-02-19 [facility] [id number] Univers 10:40:00 10:40:00 JOHN ity [facility] 2021-02-14 2021-02-14 [facility] 1.2.840.114 [id number] Univers 00:00:00 00:00:00 Patrick W PRIMARY 350.1.13.10 [place] [id number] Al dicwy [address] 2021-02-13 2021-02-13 Outpatient [facility] [id number] Univers 00:00:00 00:00:00 ity of [facility] 2021-02-13 2021-02-13 Outpatient R [facility] [id number] Univers 00:00:00 00:00:00 ity of [facility] 2021-02-13 2021-02-13 Outpatient R [facility] [id number] Univers 00:00:00 00:00:00 ity [facility] 2021-02-13 2021-02-13 Orders Doctor ALCANTARA 1.2.840.114 [id number] Univers 00:00:00 00:00:00 Only Unassigned, YADY 350.1.13.10 ity of [place] [facility] 4.2.7.2.686 Luiz as [phone] [address] 2021-02-12 2021-02-12 [facility] 1.2.840.114 [id number] Univers 00:00:00 00:00:00 Patrick Gay PRIMARY 350.1.13.10 [place] [phone] [facility] [address] [place] [address] 2021-02-07 2021-02-07 Outpatient Arvin ROMAN [facility] [id number] Univers 09:40:00 10:53:25 PATRICK sanford [facility] 2021-02-07 2021-02-07 [facility] [id number] Univers 09:40:00 10:53:25 PATRICK sanford [facility] 2021-02-07 2021-02-07 Office Abel [facility] 1.2.840.114 [id number] Univers 09:00:22 10:53:25 Visit Patrick Gay SPECIALTY 350.1.13.10 it[place] [id number] Al divina [address] 2021-02-07 2021-02-07 Outpatient R ABEL [facility] [id number] Univers 09:40:00 09:40:00 PATRICK sanford [facility] 2021-02-04 2021-02-04 [facility]phone [facility] 1.2.840.114 [id number] Univers 00:00:00 00:00:00 Patrick Victor Hugo PRIMARY 350.1.13.10 it [place] [phone] Al divina [address] [place] [address] 2021-01-31 2021-01-31 [facility]phone [facility] 1.2.840.114 [id number] Univers 00:00:00 00:00:00 Patrick Gay SPECIALTY 350.1.13.10 it[place] [phone] Al divina ERNIQUE [address] [place] [address] 2021-01-30 2021-01-30 Outpatient Arvin BEAUCHAMP [facility] [id number] Univers 14:20:00 15:52:41 JOHN ity [facility] 2021-01-30 2021-01-30 [facility] [id number] Univers 14:20:00 [facility]:52[facility] 2021-01-30 [facility] 1.2.840.114 [id number] Univers 14:18:27 15:52:41 Visit John SPECIALTY 350.1.13.10 it[place]2.[place] [phone] Al divina ENRIQUE [address] [place] [address] 2021-01-30 2021-01-30 Outpatient Arvin BEAUCHAMP [facility] [id number] Univers 14:20:00 14:20:00 JOHN ity [facility] 2021-01-29 2021-01-29 Outpatient Arvin BEAUCHAMP [facility] [id number] Univers 15:00:00 15:00:00 JOHN ity [facility] 2021-01-29 2021-01-29 Outpatient Arvin BEAUCHAMP [facility] [id number] Univers 15:00:00 15:00:00 JOHN ity [facility] 2021-01-29 2021-01-29 Outpatient Arvin BEAUCHAMP [facility] [id number] Univers 15:00:00 15:00:00 JOHN juvenal [facility] 2021-01-22 2021-01-22 Outpatient Arvin ROMAN [facility] [id number] Univers 09:00:00 09:00:00 PATRICK sanford [facility] 2021-01-22 2021-01-22 Outpatient Arvin ROMAN [facility] [id number] Univers 09:00:00 09:00:00 PATRICK sanford [facility] 2021-01-22 2021-01-22 Outpatient Arvin ROMAN [facility] [id number] Univers 09:00:00 09:00:00 PATRICK juvenal [facility] 2021-01-21 2021-01-21 [facility] 1.2.840.114 [id number] Univers 16:46:18 23:59:00 Encounter Patrick Gay PRIMARY 350.1.13.10 [place] [id number] Al dical [address] 2021-01-21 2021-01-21 Outpatient R ABEL [facility] [id number] Univers 16:46:18 23:59:00 PATRICK juvenal [facility] 2021-01-21 2021-01-21 Outpatient Arvin ROMAN [facility] [id number] Univers 16:46:18 23:59:00 PATRICK juvenal [facility] 2021-01-21 2021-01-21 [facility] 1.2.840.114 [id number] Univers 16:34:10 16:44:10 Visit Patrick Gay PRIMARY 350.1.13.10 [place] [id number] Al dical [address] 2021-01-21 2021-01-21 Outpatient R ROMAN [facility] [id number] Univers 16:20:00 16:20:00 PATRICK juvenal [facility] 2021-01-21 2021-01-21 [facility] [id number] Univers 16:10:00 16:10:00 PATRICK [facility] 2021-01-21 2021-01-21 Outpatient Arvin ABEL [facility] [id number] Univers 16:10:00 16:10:00 PATRICK [facility] 2021-01-21 2021-01-21 Outpatient Arvin ROMAN [facility] [id number] Univers 16:10:00 16:10:00 PATRICK [facility] 2021-01-17 2021-01-17 Outpatient R ABEL [facility] [id number] Univers 11:00:00 11:00:00 PATRIKC [facility] 2021-01-17 2021-01-17 [facility] [id number] Univers 11:00:00 11:00:00 PATRICK [facility] 2021-01-17 2021-01-17 [facility] [id number] Univers 11:00:00 11:00:00 [facility] 2021-01-17 2021-01-17 Orders Doctor MARICRUZ 1.2.840.114 [id number] Univers 00:00:00 00:00:00 Only Unassigned, YADY 350.1.13.10 ity of [place] [facility] 4.2.7.2.686 Lu[place] as [id number] [address] 2021-01-16 2021-01-16 Outpatient Arvin BEAUCHAMP [facility] [id number] Univers 14:00:00 14:00:00 [facility] 2021-01-16 2021-01-16 Outpatient Arvin BEAUCHAMP [facility] [id number] Univers 14:00:00 14:00:00 [facility] 2021-01-16 2021-01-16 Outpatient Arvin BEAUCHAMP [facility] [id number] Univers 14:00:00 14:00:00 [facility] 2021-01-15 2021-01-15 Clarita Roman [facility] 1.2.840.114 [id number] Univers 00:00:00 00:00:00 Patrick KUO 350.1.13.10 it [place] [phone] Al dical [address] 2021-01-15 2021-01-15 Orders Doctor MARICRUZ 1.2.840.114 [id number] Univers 00:00:00 00:00:00 Only Unassigned, YADY 350.1.13.10 ity of [place] [facility] 4.2.7.2.686 [place] as [id number] [facility] [address] 2021-01-14 2021-01-14 [facility] 1.2.840.114 [id number] Univers 00:00:00 00:00:00 Patrick W PRIMARY 350.1.13.10 [place] [id number] Al dic[address] 2021-01-13 2021-01-13 [facility]phone [facility] 1.2.840.114 [id number] Univers 00:00:00 00:00:00 Patrick W PRIMARY 350.1.13.10 [place] of [place].2.[place] [id number] Al dicwy [address] 2021-01-13 2021-01-13 [facility]phone [facility] 1.2.840.114 [id number] Univers 00:00:00 00:00:00 Patrick W PRIMARY 350.1.13.10 [place] C[place]2.[place] [id number] [facility] [address] 2021-01-07 2021-01-07 Outpatient Arvin BEAUCHAMP [facility] [id number] Univers 11:40:00 11:40:00 JOHN ity of [facility] 2021-01-06 2021-01-06 Transition Abigail Shay 1.2.840.114 [id number] Univers 00:00:00 00:00:00 of Care Arlene Grace Simms 350.1.13.10 it y of [place] [phone] [facility] [address] 2021-01-06 2021-01-06 [facility]phone [facility] 1.2.840.114 [id number] Univers 00:00:00 00:00:00 Patrick Gay SPECIALTY 350.1.13.10 [place] [phone] Al dicdariusz VICTORLuanne 198 [facility] 2020-12-30 2021-01-04 Hospital Lanie Roman 1.2.840.114 [id number] Univers 05:42:00 15:09:00 Encounter Patrick Conteh 350.1.13.10 ity of Hospital 4.2.7.2.686 [place] [id number] [facility] [address] 2020-12-30 2020-12-30 Surgery Lanie Roman 1.2.840.114 [id number] Univers 07:20:00 15:45:00 Patrick Conteh 350.1.13.10 it y of Hospital 4.2.7.2.686 [place] [phone] [facility] [address] 2020-12-30 2020-12-30 Anesthesia Nola Begum 1.2.840.114 [id number] Univers 07:41:00 15:04:00 Event Herb Langford 350.1.13.10 ity of [facility] 4.2.7.2.686 [place] as [id number] [facility] [address] 2020-12-18 2020-12-18 [facility] [id number] Univers 13:15:00 13:18:41 PATRICK sanford [facility] 2020-12-18 2020-12-18 Outpatient R ABEL [facility] [id number] Univers 13:15:00 13:18:41 PATRICK sanford [facility] 2020-12-18 2020-12-18 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 [address] 2020-12-18 2020-12-18 Outpatient [facility] [id number] Univers 11:30:00 11:30:00 PATRICK [facility] 2020-12-12 2020-12-[address] [facility] 1.2.840.114 [id number] Univers 11:23:01 23:59:00 Encounter Maricruz PRIMARY 350.1.13.10 [place] C[place] [address] [id number] [facility] [address] [place] 2020-12-12 2020-12-12 Outpatient [facility] [id number] Univers 11:20:00 15:16:29 MARICRUZ [facility] 2020-12-12 2020-12-12 Outpatient [facility] [id number] Univers 11:20:00 15:16:29 MARICRUZ [facility] 2020-12-12 2020-12-12 Office [facility] 1.2.015.661 [id number] Univers 11:19:26 15:16:29 Visit Maricruz PRIMARY 350.1.13.10 it [place] C[place] 4[place]2.7.2.[place] [id number] [facility] [address] 2020-12-12 2020-12-12 Outpatient [facility] [id number] Univers 11:20:00 11:20:00 MARICRUZ [facility] 2020-11-21 2020-11-21 Outpatient [facility] [id number] Univers 11:00:00 11:00:00 MARICRUZ [facility] 2020-11-18 2020-11-18 Abstract [facility] 1.2.840.114 [id number] Univers 00:00:00 00:00:00 Rosetta PRIMARY 350.1.13.10 it y of [facility] 4.2.7.2.[place] [id number] Al dical [address] 2020-11-13 2020-11-13 Outpatient R JAMIE [facility] [id number] Univers 13:00:00 13:00:00 PRAVEEN sanford [facility] 2020-11-04 2020-11-04 Ancillary Reece Nette Yesy [facility] 1.2.840. 114 [id number] Univers 13:16:24 13:51:03 Visit Praveen Ayala 350.1.13.10 ity of [place] [phone] Al dical nal 179 [facility] 2020-11-04 2020-11-04 Outpatient R JAMIE [facility] [id number] Univers 13:00:00 13:51:03 PRAVEEN sanford [facility] 2020-11-04 2020-11-04 Outpatient R JAMIE [facility] [id number] Univers 13:00:00 13:51:03 PRAVEEN sanford [facility] 2020-10-30 2020-10-30 Ancillary Terri Sheikh [facility] 1.2.840 .114 [id number] Univers 13:47:39 14:27:39 Visit Praveen Ayala 350.1.13.10 ity of [place].2.[place] [id number] Al dical nal 179 [facility] 2020-10-28 2020-10-28 Ancillary Patrice Sheikh [facility] 1.2.840. 114 [id number] Univers 13:10:28 13:48:58 Visit Praveen Ayala 350.1.13.10 ity of [place].2.[place] [phone] Al dical nal 179 [facility] 2020-10-21 2020-10-21 Ancillary Patrice Sheikh [facility] 1.2.840. 114 [id number] Univers 14:57:12 15:56:42 Visit Praveen Ayala 350.1.13.10 ity of [place].2.[place] [phone] Al dical nal 179 [facility] 2020-10-18 2020-10-18 Ancillary Terri Sheikh [facility] 1.2.840 .114 [id number] Univers 13:02:31 13:40:50 Visit Praveen Ayala Yashira Eric 350.1.13.10 ity of [place].2.[place] [phone] Al dical nal 179 [facility] 2020-10-16 2020-10-16 Ancillary Terri Sheikh [facility] 1.2.840 .114 [id number] Univers 13:09:14 14:27:08 Visit Praveen Ayala Yashira No 350.1.13.10 ity of [place].2.7.2.[place] [id number] Al dical nal 179 [facility] 2020-10-11 2020-10-11 Outpatient R JAMIE [facility] [id number] Univers 11:20:00 11:20:00 PRAVEEN sanford [facility] 2020-10-09 2020-10-09 [facility] Jamie [facility] 1.2.840.114 [id number] Univers 12:32:47 23:59:00 Encounter Praveen Ac Eric 350.1.13.10 ity of [place].2.[place] [id number] [facility] [address] [place] [address] 2020-10-09 2020-10-09 Outpatient R JAMIE [facility] [id number] Univers 15:00:00 15:00:00 PRAVEEN sanford [facility] 2020-10-09 2020-10-09 Outpatient R JAMIE [facility] [id number] Univers 15:00:00 13:35:59 PRAVEEN sanford [facility] 2020-10-09 2020-10-09 Outpatient R JAMIE [facility] [id number] Univers 15:00:00 13:35:59 PRAVEEN sanford [facility] 2020-10-09 2020-10-09 Office Jamie [facility] 1.2.165.988 [id number] Univers 13:08:14 13:35:59 Visit Praveen Trinh 350.1.13.10 it y of Surgical 4.2.7.2.686 [place] Specialti [phone] Al dical es 198 [facility] 2020-10-09 2020-10-09 Telephone Jamie [facility] 1.2.840.114 [id number] Univers 00:00:00 00:00:00 Praveen Trinh 350.1.13.10 it y of Surgical 4.2.7.2.686 [place] Specialti [phone] Al dical es 198 [facility] 2020-10-09 2020-10-09 Orders Doctor MARICRUZ 1.2.840.114 [id number] Univers 00:00:00 00:00:00 Only Unassigned, YADY 350.1.13.10 ity of [place] [facility] 4.2.7.2.686 Luiz as [phone] [address] 2020-10-08 2020-10-08 Outpatient Arvin HALEY [facility] [id number] Univers 16:00:00 16:00:00 LUIS [facility] 2020-10-04 2020-10-04 Outpatient Arvin LYONS [facility] [id number] Univers 14:10:00 14:10:00 GENOVEVA [facility] 2020-10-03 2020-10-03 Outpatient Arvin LYONS [facility] [id number] Univers 13:00:00 13:00:00 GENOVEVA [facility] 2020-10-03 2020-10-03 Outpatient Arvin LYONS [facility] [id number] Univers 13:00:00 12:49:49 GENOVEVA [facility] 2020-10-03 2020-10-03 Outpatient Arvin LYONS [facility] [id number] Univers 13:00:00 12:49:49 GENOVEVA [facility] 2020-10-02 2020-10-02 Ancillary Patrice Sheikh [facility] 1.2.840. 114 [id number] Univers 15:50:04 16:22:16 Visit Praveen Ayala 350.1.13.10 ity of [place] [phone] Al dical nal 179 [facility] 2020-10-02 2020-10-02 Outpatient R JAMIE [facility] [id number] Univers 15:40:00 16:22:16 PRAVEEN sanford [facility] 2020-10-02 2020-10-02 Outpatient R JAMIE [facility] [id number] Univers 15:40:00 16:22:16 PRAVEEN sanford [facility] 2020-09-30 2020-09-30 Ancillary Dinorah Magana [facility] 1 .2.840.114 [id number] [facility] 13:56:58 14:38:16 Visit Praveen Ayala 350.1.13.10 ity of [place] [phone] Al dical nal 179 [facility] 2020-09-26 2020-09-26 Ancillary Nette Reece [facility] 1.2.840. 114 [id number] [facility] 13:06:01 14:07:27 Visit Praveen Ayala 350.1.13.10 ity of [place].2.[place] [phone] Al dical nal 179 [facility] 2020-09-24 2020-09-24 Ancillary Nette Reece [facility] 1.2.840. 114 [id number] [facility] 15:23:16 16:43:28 Visit Praveen Ayala 350.1.13.10 ity of [place].2.[place] [phone] Al dical nal 179 [facility] 2020-09-19 2020-09-19 Ancillary Dinorah Magana [facility] 1 .2.840.114 [id number] [facility] 13:50:00 15:15:27 Visit Praveen Ayala 350.1.13.10 ity of [place] [phone] Me dical nal 179 [facility] 2020-09-13 2020-09-13 Outpatient R SERENA [facility] [id number] Univers 13:40:00 13:40:00 GENOVEVA ity [facility] 2020-09-13 2020-09-13 Outpatient R SERENA [facility] [id number] Univers 13:40:00 13:40:00 GENOVEVA ity [facility] 2020-09-13 2020-09-13 Outpatient R SERENA [facility] [id number] Univers 13:40:00 13:40:00 GENOVEVA ity [facility] 2020-09-10 2020-09-10 Ancillary Sean Tari Shahidsha [facility] 1 .2.840.114 [id number] Univers 13:53:23 14:41:35 Visit [facility]en [facility]13.10 [facility] [place] [phone] Al dical nal 179 [facility] 2020-09-10 2020-09-10 Outpatient Arvin AYALA [facility] [id number] Univers 14:00:00 14:00:00 PRAVEEN [facility] 2020-08-22 2020-08-[address] [facility] 1.2.840.114 [id number] Univers 16:01:22 23:59:00 Encounter Maricruz PRIMARY 350.1.13.10 ity of [place].2.[place] [phone] Al dical [address] [place] 2020-08-22 2020-08-22 [facility] [id number] Univers 15:20:00 16:52:39 [facility] 2020-08-22 2020-08-22 [facility] 1.2.534.584 [id number] Univers 15:16:54 16:52:39 Visit Maricruz PRIMARY 350.1.13.10 it y of [place] [id number] Al dical [address] [place] 2020-08-22 2020-08-22 [facility] [id number] Univers 15:20:00 15:20:00 MARICRUZ sanford [facility] 2020-08-20 2020-08-20 Orders Doctor MARICRUZ 1.2.840.114 [id number] Univers 00:00:00 00:00:00 Only Unassigned, YADY 350.1.13.10 ity of [place] [facility] 4.2.7.2.686 Luiz as [id number] [address] 2020-08-15 2020-08-15 Outpatient [facility] [id number] Univers 13:40:00 13:40:00 MARICRUZ sanford [facility] 2020-08-07 2020-08-07 Orders Doctor MARICRUZ 1.2.840.114 [id number] Univers 00:00:00 00:00:00 Only Unassigned, YADY 350.1.13.10 ity of [place] [facility] 4.2.7.2.686 Luiz as [phone] [address] 2020-07-31 2020-07-31 Telemedici Stefanie Stout 1.2.840.114 [id number] Univers 13:08:16 16:10:57 ne Visit phillip, Pediatric 350.1.13.10 [phone] [place] [address] [facility] 2020-07-31 2020-07-31 Outpatient Arvin [facility] [id number] Univers 13:00:00 13:00:00 PHILLIP ity of [place] [facility] 2020-07-26 2020-07-26 Orders Doctor ALCANTARA 1.2.840.114 [id number] Univers 00:00:00 00:00:00 Only Unassigned, YADY 350.1.13.10 ity of [facility] 4.2.7.2.686 Luiz as [phone] [address] 2020-07-25 2020-07-25 Clarita Sullivan [facility] 1.2.840.114 [id number] Univers 00:00:00 00:00:00 [place] PRIMARY 350.1.13.10 it y [place] [id number] Me dical [address] 2020-07-25 2020-07-25 Orders Doctor MARICRUZ 1.2.840.114 [id number] Univers 00:00:00 00:00:00 Only Unassigned, YADY 350.1.13.10 ity of [facility] 4.2.7.2.686 Luiz as [phone] [facility] [address] 2020-07-24 2020-07-[address] [facility] 1.2.840.114 [id number] Univers 15:30:00 23:59:00 Encounter Maricruz No 350.1.13.10 ity [place] [phone] [facility] [facility] [address] 2020-07-24 2020-07-24 Outpatient R [facility] [id number] Univers 00:00:00 00:00:00 MARICRUZ sanford [facility] 2020-07-22 2020-07-22 Outpatient R [facility] [id number] Univers 15:09:20 23:59:00 juvenal FISHER [facility] 2020-07-22 2020-07-22 [facility] 1.2.840.114 [id number] Univers 15:00:00 23:59:00 Encounter Eric fisher 350.1.13.10 ity of [facility] [place] [id number] [facility] [address] 2020-07-18 2020-07-[address] [facility] 1.2.840.114 [id number] Univers 14:08:26 23:59:00 Encounter Maricruz PRIMARY 350.1.13.10 [place] [id number] Al dical [address] 2020-07-18 2020-07-18 [facility] 1.2.767.778 [id number] Univers 13:57:00 15:05:08 Visit Maricruz PRIMARY 350.1.13.10 it y [place] [id number] [address] 2020-07-18 2020-07-18 [facility] [id number] Univers 13:40:00 13:40:00 MARICRUZ ity [facility] 2020-07-11 2020-07-11 [facility] [id number] Univers 13:10:00 13:10:00 MARICRUZ elmorey [facility] 2020-06-26 2020-06-26 Office Stefanie Stout 1.2.840.114 [id number] Univers 12:49:11 14:01:35 Visit phillip, Pediatric 350.1.13.10 ity of [place] [id number] [address] 2020-06-26 2020-06-26 Outpatient R STEFANIE [facility] [id number] Univers 13:00:00 13:00:00 PHILLIP, ity of SHIBI [facility] 2020-06-26 2020-06-26 [facility] 1.2.766.606 [id number] Univers 00:00:00 00:00:00 Management Maricruz PRIMARY 350.1.13.10 it[place] [id number] [address] 2020-06-21 2020-06-21 [facility] 1.2.840.114 [id number] Univers 00:00:00 00:00:00 Maricruz PRIMARY 350.1.13.10 it y [place] [id number] [address] 2020-05-30 2020-05-[address] [facility] 1.2.840.114 [id number] Univers 10:09:07 23:59:00 Encounter Maricruz PRIMARY 350.1.13.10 it[place] [id number] Al dical [address] [place] 2020-05-30 2020-05-30 Imm/Inj Nurse, Pcp Gen [facility] Team [facility] 1.2.840.114 [id number] Univers 12:29:12 12:44:12 Visit Alexandra Martinez PRIMARY 350.1.13.10 ity of CARE 4.2.7.2.686 [place] [id number] Al dical [address] [place] 2020-05-30 2020-05-30 Office [facility] 1.2.154.258 [id number] Univers 10:04:32 12:22:15 Visit Maricruz PRIMARY 350.1.13.10 it y of CARE 4.2.7.2.686 [place] DAYDAYON [id number] [address] [place] 2020-05-30 2020-05-30 [facility] [id number] Univers 10:40:00 10:40:00 MARICRUZ ity of [facility] 2020-05-29 2020-05-29 Abstract [facility] 1.2.840.114 [id number] Univers 00:00:00 00:00:00 Geovanny PRIMARY 350.1.13.10 it y of [place] CARE 4.2.7.2.686 [place] NAYLORON [id number] Al dical [address] [place] 2020-05-16 2020-05-16 Orders Doctor MARICRUZ 1.2.840.114 [id number] Univers 00:00:00 00:00:00 Only Unassigned, YADY 350.1.13.10 ity of [facility] 4.2.7.2.686 Luiz as [id number] [facility] [address] [place] 2020-05-02 2020-05-02 Hospital [facility] 1.2.840.114 [id number] Univers 10:34:10 23:59:00 Encounter Maricruz PRIMARY 350.1.13.10 ity of CARE 4.2.7.2.686 [place] PAVDAPHNIEON [id number] Al dical [address] [place] 2020-05-02 2020-05-02 Office [facility] 1.2.931.686 [id number] Univers 10:29:28 12:45:31 Visit Maricruz PRIMARY 350.1.13.10 it y [place] [id number] [facility] [address] [place] 2020-05-02 2020-05-02 Outpatient R LAURIE [facility] [id number] Univers 10:00:00 10:00:00 MARICRUZ ity of [facility] 2020-04-30 2020-04-30 [facility] 1.2.840.114 [id number] Univers 00:00:00 00:00:00 Geovanny PRIMARY 350.1.13.10 it y of [facility] [place].2.[place] [id number] [address] 2020-04-18 2020-04-18 [facility]phone [facility] 1.2.840.114 [id number] Univers 00:00:00 00:00:00 Maricruz PRIMARY 350.1.13.10 it y [place] [id number] [address] 2020-04-06 2020-04-16 [facility] Lanie Sullivan 1.2.840.114 [id number] 20:29:00 17:40:00 Encounter Maricruz Conteh 350.1.13.10 [facility] 4.2.7.2.686 [id number] 09 2020-04-06 2020-04-16 [facility] Brianda Sullivane 1.2.840.114 [id number] [facility] 20:29:00 17:40:00 Encounter Maricruz [facility]13.10 [facility] 4.2.7.2.686 [place] [id number] [address] 2020-04-06 2020-04-06 Emergency [facility] 1.2.840.114 [id number] 16:27:00 19:20:00 Aly No 350.1.13.10 [place] 4.2.7.2.686 [place] [id number] [facility] 2020-04-06 2020-04-06 Emergency [facility] 1.2.840.114 [id number] [facility] 16:27:00 19:20:00 Aly No 350.1.13.10 i ty of [place] 4.2.7.2.[address] [facility] [id number] [place] [id number] [place] 2020-01-04 2020-01-04 Orders Doctor MARICRUZ 1.2.840.114 [id number] 00:00:00 00:00:00 Only Unassigned, YADY 350.1.13.10 [facility] 4.2.7.2.686 [id number] 2020-01-04 2020-01-04 Orders Doctor MARICRUZ 1.2.840.114 [id number] Univers 00:00:00 00:00:00 Only Unassigned, YADY 350.1.13.10 ity of [facility] 4.2.7.2.686 Luiz as [id number] [address] 2019-12-12 2019-12-12 Outpatient Arvin HALEY [facility] [id number] Univers 13:45:43 23:59:00 LUIS ity [facility] 2019-12-06 2019-12-06 Orders Doctor MARICRUZ 1.2.840.114 [id number] 00:00:00 00:00:00 Only Unassigned, YADY 350.1.13.10 [facility] 4.2.7.2.686 [id number] 2019-12-06 2019-12-06 Orders Doctor ALCANTARA 1.2.840.114 [id number] Univers 00:00:00 00:00:00 Only Unassigned, YADY 350.1.13.10 ity of [facility] 4.2.7.2.686 [place] [id number] [address] 2019-11-29 2019-11-29 Transition Abigail Florez 1.2.840.114 [id number] 00:00:00 00:00:00 of Care Rain Simms 350.1.13.10 [place] 4.2.7.2.686 [id number] [facility] 2019-11-29 2019-11-29 Transition Abigail Florez 1.2.840.114 [id number] Univers 00:00:00 00:00:00 of Care Rain Simms 350.1.13.10 it y of [place] [id number] [facility] [address] [place] 2019-11-22 2019-11-28 [facility] Lanie Remy 1.2.248.387 [id number] 14:08:03 17:30:00 Encounter Shikha [place] 350.1.13.10 [facility] 4.2.7.2.686 [id number] [facility] 2019-11-22 2019-11-28 [facility] Lanie Remy 1.2.849.512 [id number] Univers 14:08:03 17:30:00 Encounter Shikha A Yady 350.1.13.10 ity of [facility] 4.2.7.2.686 [place] [id number] [address] 2019-11-22 2019-11-22 Emergency [facility] 1.2.177.356 [id number] 09:15:45 13:02:00 Rico Ramirezton 350.1.13.10 [place] 4.2.7.2.686 [place] [id number] [facility] 2019-11-22 2019-11-22 Emergency X [facility] ERT [id number] Univers 09:15:45 13:02:00 RICO ity of [facility] 2019-11-22 2019-11-22 [facility] 1.2.576.119 [id number] Univers 09:15:45 13:02:00 Rico Ramirezton 350.1.13.10 i ty of [place].2.[place] [id number] [address] Results Test Description Test Time Test Comments Results Result Comments Source POCT GLUCOSE (AUTOMATED) 2022-05-15 12:18:02 Test Item Value Reference Range Interpretation Comme nts POCT GLU (test code = 8357504454) 101 mg/dL 70-110 Lab Interpretation (test code = 43346-0) Normal [facility] GLUCOSE (AUTOMATED)2022-05-15 01:10:09 Test Item Value Reference Range Interpretation Comments POCT GLU (test code = 3935637928) 116 mg/dL 70-110 H Lab Interpretation (test code = Abnormal 63459-5) [facility] GLUCOSE (AUTOMATED)2022-05-14 21:27:18 Test Item Value Reference Range Interpretation Comments POCT GLU (test code = 1941129161) 108 mg/dL 70-110 Lab Interpretation (test code = Normal 03572-8) [facility] GLUCOSE (AUTOMATED)2022-05-14 16:19:26 Test Item Value Reference Range Interpretation Comments POCT GLU (test code = 2270741476) 108 mg/dL 70-110 Lab Interpretation (test code = Normal 18740-1) [facility] GLUCOSE (AUTOMATED)2022-05-14 12:35:24 Test Item Value Reference Range Interpretation Comments POCT GLU (test code = 1414072039) 92 mg/dL 70-110 Lab Interpretation (test code = Normal 16747-2) [facility] GLUCOSE (AUTOMATED)2022-05-14 01:22:52 Test Item Value Reference Range Interpretation Comments POCT GLU (test code = 5001474276) 114 mg/dL 70-110 H Lab Interpretation (test code = Abnormal 17644-7) [facility] GLUCOSE (AUTOMATED)2022-05-13 22:04:48 Test Item Value Reference Range Interpretation Comments POCT GLU (test code = 3240968629) 94 mg/dL 70-110 Lab Interpretation (test code = Normal 93939-8) [facility] WITH [id number] 21:21:11 Test Item Value Reference Range Interpretation Comments WBC (test code = See_Comment [Automated 6690-2) message] The sy stem which generated this result transmitted reference range : 4.30 - 11.10 10*3/?L. The reference range was not used to interpret this result as normal/abnormal . RBC (test code = See_Comment L [Automated 429-8) message] The sy stem which generated this result transmitted reference range : 3.93 - 5.25 10*6/?L. The reference range was not used to interpret this result as normal/abnormal . HGB (test code = 7.8 g/dL 11.6-15.0 L 718-7) HCT (test code = 24.5 % 35.7-45.2 L 4544-3) MCV (test code = 89.7 fL 80.6-95.5 787-2) MCH (test code = 28.6 pg 25.9-32.8 785-6) MCHC (test code = 31.8 g/dL 31.6-35.1 786-4) RDW-SD (test code = 52.1 fL 39.0-49.9 H 39190-3) RDW-CV (test code = 17.4 % 12.0-15.5 H 788-0) PLT (test code = See_Comment H [Automated 777-3) message] The sy stem which generated this result transmitted reference range : 166 - 358 10*3/ ?L. The reference r meli was not used to interpret this result as normal/abnormal . MPV (test code = 9.3 fL 9.5-12.9 L 08910-0) NRBC/100 WBC (test See_Comment [Automat ed code = 7506766552) message] The system which generated this result transmitted reference range : 0.0 - 10.0 /100 WBCs. The refer ence range was not u sed to interpret th is result as normal/abnormal . NRBC x10^3 (test code See_Comment [Auto mated = 4783455493) message] The s ystem which generated this result transmitted reference range : 10*3/?L. The reference range was not used to interpret this result as normal/abnormal . GRAN MAT (NEUT) % 58.3 % (test code = 770-8) IMM GRAN % (test code 0.30 % = 7403090280) LYMPH % (test code = 24.0 % 736-9) MONO % (test code = 12.5 % 5905-5) EOS % (test code = 4.4 % 713-8) BASO % (test code = 0.5 % 706-2) GRAN MAT x10^3(ANC) 5.55 10*3/uL 1.88-7.09 (test code = 2760984221) IMM GRAN x10^3 (test 0.03 10*3/uL 0.00-0.06 code = 2137267116) LYMPH x10^3 (test code 2.29 10*3/uL 1.32-3.29 = 731-0) MONO x10^3 (test code 1.19 10*3/uL 0.33-0.92 H = 742-7) EOS x10^3 (test code = 0.42 10*3/uL 0.03-0.39 H 711-2) BASO x10^3 (test code 0.05 10*3/uL 0.01-0.07 = 704-7) Lab Interpretation Abnormal (test code = 11679-2) [facility] GLUCOSE (AUTOMATED)2022-05-13 16:53:58 Test Item Value Reference Range Interpretation Comments POCT GLU (test code = 8663122422) 100 mg/dL 70-110 Lab Interpretation (test code = Normal 92403-0) [facility] GLUCOSE (AUTOMATED)2022-05-13 12:59:22 Test Item Value Reference Range Interpretation Comments POCT GLU (test code = 5994319122) 85 mg/dL 70-110 Lab Interpretation (test code = Normal 76206-1) [facility] GLUCOSE (AUTOMATED)2022-05-13 01:05:03 Test Item Value Reference Range Interpretation Comments POCT GLU (test code = 8490977807) 140 mg/dL 70-110 H Lab Interpretation (test code = Abnormal 32005-5) [facility] GLUCOSE (AUTOMATED)2022-05-12 21:08:29 Test Item Value Reference Range Interpretation Comments POCT GLU (test code = 0283204791) 109 mg/dL 70-110 Lab Interpretation (test code = Normal 90769-2) [facility] GLUCOSE (AUTOMATED)2022-05-12 16:28:42 Test Item Value Reference Range Interpretation Comments POCT GLU (test code = 8895154416) 117 mg/dL 70-110 H Lab Interpretation (test code = Abnormal 24684-3) [facility] GLUCOSE (AUTOMATED)2022-05-12 12:24:43 Test Item Value Reference Range Interpretation Comments POCT GLU (test code = 9068298524) 114 mg/dL 70-110 H Lab Interpretation (test code = Abnormal 48322-8) [facility] GLUCOSE (AUTOMATED)2022-05-12 09:09:02 Test Item Value Reference Range Interpretation Comments POCT GLU (test code = 3901164507) 88 mg/dL 70-110 Lab Interpretation (test code = Normal 09634-6) [facility] GLUCOSE (AUTOMATED)2022-05-12 05:00:55 Test Item Value Reference Range Interpretation Comments POCT GLU (test code = 0158187640) 107 mg/dL 70-110 Lab Interpretation (test code = Normal 27301-5) [facility] GLUCOSE (AUTOMATED)2022-05-12 01:15:40 Test Item Value Reference Range Interpretation Comments POCT GLU (test code = 3489134576) 118 mg/dL 70-110 H Lab Interpretation (test code = Abnormal 90111-7) [facility] GLUCOSE (AUTOMATED)2022-05-11 21:44:12 Test Item Value Reference Range Interpretation Comments POCT GLU (test code = 0815275988) 109 mg/dL 70-110 Lab Interpretation (test code = Normal 20539-8) [facility] GLUCOSE (AUTOMATED)2022-05-11 16:35:33 Test Item Value Reference Range Interpretation Comments POCT GLU (test code = 9023845315) 105 mg/dL 70-110 Lab Interpretation (test code = Normal 33112-2) [facility] GLUCOSE (AUTOMATED)2022-05-11 12:37:40 Test Item Value Reference Range Interpretation Comments POCT GLU (test code = 7823297263) 100 mg/dL 70-110 Lab Interpretation (test code = Normal 41791-8) [facility] GLUCOSE (AUTOMATED)2022-05-11 09:21:30 Test Item Value Reference Range Interpretation Comments POCT GLU (test code = 7144644901) 94 mg/dL 70-110 Lab Interpretation (test code = Normal 58930-3) [facility] GLUCOSE (AUTOMATED)2022-05-11 05:40:17 Test Item Value Reference Range Interpretation Comments POCT GLU (test code = 7935510112) 95 mg/dL 70-110 Lab Interpretation (test code = Normal 21363-5) [facility] GLUCOSE (AUTOMATED)2022-05-11 00:58:38 Test Item Value Reference Range Interpretation Comments POCT GLU (test code = 3849424781) 104 mg/dL 70-110 Lab Interpretation (test code = Normal 95086-8) [facility] GLUCOSE (AUTOMATED)2022-05-10 21:40:47 Test Item Value Reference Range Interpretation Comments POCT GLU (test code = 7791860212) 98 mg/dL 70-110 Lab Interpretation (test code = Normal 02882-3) [facility] 16:35:59 Test Item Value Reference Range Interpretation Comments POCT GLU (test code = 4837053773) 90 mg/dL 70-110 Lab Interpretation (test code = Normal 12331-6) [facility]10 12:50:26 Test Item Value Reference Range Interpretation Comments POCT GLU (test code = 7101955126) 96 mg/dL 70-110 Lab Interpretation (test code = Normal 32031-6) [facility] GLUCOSE (AUTOMATED)2022-05-10 09:58:38 Test Item Value Reference Range Interpretation Comments POCT GLU (test code = 0244007028) 93 mg/dL 70-110 Lab Interpretation (test code = Normal 77852-7) [facility] GLUCOSE (AUTOMATED)2022-05-10 05:23:38 Test Item Value Reference Range Interpretation Comments POCT GLU (test code = 7315612930) 98 mg/dL 70-110 Lab Interpretation (test code = Normal 43457-6) [facility] GLUCOSE (AUTOMATED)2022-05-10 01:00:31 Test Item Value Reference Range Interpretation Comments POCT GLU (test code = 2046224858) 91 mg/dL 70-110 Lab Interpretation (test code = Normal 24724-1) [facility] GLUCOSE (AUTOMATED)2022-05-09 16:51:58 Test Item Value Reference Range Interpretation Comments POCT GLU (test code = 0635752400) 107 mg/dL 70-110 Lab Interpretation (test code = Normal 31764-2) [facility]-09 12:54:43 Test Item Value Reference Range Interpretation Comments POCT GLU (test code = 6845993824) 119 mg/dL 70-110 H Lab Interpretation (test code = Abnormal 87308-2) [facility] GLUCOSE (AUTOMATED)2022-05-09 09:21:00 Test Item Value Reference Range Interpretation Comments POCT GLU (test code = 1883253533) 124 mg/dL 70-110 H Lab Interpretation (test code = Abnormal 28453-3) [facility] GLUCOSE (AUTOMATED)2022-05-09 06:21:35 Test Item Value Reference Range Interpretation Comments POCT GLU (test code = 0726959300) 126 mg/dL 70-110 H Lab Interpretation (test code = Abnormal 31647-2) [facility] GLUCOSE (AUTOMATED)2022-05-09 00:54:03 Test Item Value Reference Range Interpretation Comments POCT GLU (test code = 5344302659) 121 mg/dL 70-110 H Lab Interpretation (test code = Abnormal 03874-9) [facility] GLUCOSE (AUTOMATED)2022-05-08 21:44:59 Test Item Value Reference Range Interpretation Comments POCT GLU (test code = 2762583538) 135 mg/dL 70-110 H Lab Interpretation (test code = Abnormal 77017-8) [facility] GLUCOSE (AUTOMATED)2022-05-08 21:44:59 Test Item Value Reference Range Interpretation Comments POCT GLU (test code = 7512839097) 135 mg/dL 70-110 H Lab Interpretation (test code = Abnormal 80117-6) [facility] GLUCOSE (AUTOMATED)2022-05-08 17:19:33 Test Item Value Reference Range Interpretation Comments POCT GLU (test code = 3291697421) 149 mg/dL 70-110 H Lab Interpretation (test code = Abnormal 75925-2) [facility] GLUCOSE (AUTOMATED)2022-05-08 17:19:33 Test Item Value Reference Range Interpretation Comments POCT GLU (test code = 7460920493) 149 mg/dL 70-110 H Lab Interpretation (test code = Abnormal 84959-5) [facility] GLUCOSE (AUTOMATED)2022-05-08 17:19:33 Test Item Value Reference Range Interpretation Comments POCT GLU (test code = 2031869943) 149 mg/dL 70-110 H Lab Interpretation (test code = Abnormal 16008-5) [facility] GLUCOSE (AUTOMATED)2022-05-08 13:09:00 Test Item Value Reference Range Interpretation Comments POCT GLU (test code = 9843750979) 150 mg/dL 70-110 H Lab Interpretation (test code = Abnormal 61112-3) [facility] GLUCOSE (AUTOMATED)2022-05-08 13:09:00 Test Item Value Reference Range Interpretation Comments POCT GLU (test code = 6626457093) 150 mg/dL 70-110 H Lab Interpretation (test code = Abnormal 79100-9) [facility] GLUCOSE (AUTOMATED)2022-05-08 13:09:00 Test Item Value Reference Range Interpretation Comments POCT GLU (test code = 9208147811) 150 mg/dL 70-110 H Lab Interpretation (test code = Abnormal 51258-1) [facility] GLUCOSE (AUTOMATED)2022-05-08 09:18:28 Test Item Value Reference Range Interpretation Comments POCT GLU (test code = 4389622500) 160 mg/dL 70-110 H Lab Interpretation (test code = Abnormal 22826-2) [facility] GLUCOSE (AUTOMATED)2022-05-08 09:18:28 Test Item Value Reference Range Interpretation Comments POCT GLU (test code = 4929463405) 160 mg/dL 70-110 H Lab Interpretation (test code = Abnormal 26671-5) [facility] GLUCOSE (AUTOMATED)2022-05-08 09:18:28 Test Item Value Reference Range Interpretation Comments POCT GLU (test code = 4999161600) 160 mg/dL 70-110 H Lab Interpretation (test code = Abnormal 57596-2) [facility] GLUCOSE (AUTOMATED)2022-05-08 05:51:31 Test Item Value Reference Range Interpretation Comments POCT GLU (test code = 6843748740) 170 mg/dL 70-110 H Lab Interpretation (test code = Abnormal 18047-0) [facility] GLUCOSE (AUTOMATED)2022-05-08 05:51:31 Test Item Value Reference Range Interpretation Comments POCT GLU (test code = 7237729468) 170 mg/dL 70-110 H Lab Interpretation (test code = Abnormal 89756-1) [facility] GLUCOSE (AUTOMATED)2022-05-08 05:51:31 Test Item Value Reference Range Interpretation Comments POCT GLU (test code = 5128734699) 170 mg/dL 70-110 H Lab Interpretation (test code = Abnormal 84738-1) [facility] GLUCOSE (AUTOMATED)2022-05-08 00:43:21 Test Item Value Reference Range Interpretation Comments POCT GLU (test code = 0015744634) 270 mg/dL 70-110 H Lab Interpretation (test code = Abnormal 55552-9) [facility] GLUCOSE (AUTOMATED)2022-05-08 00:43:21 Test Item Value Reference Range Interpretation Comments POCT GLU (test code = 6157852783) 270 mg/dL 70-110 H Lab Interpretation (test code = Abnormal 41797-9) [facility] GLUCOSE (AUTOMATED)2022-05-08 00:43:21 Test Item Value Reference Range Interpretation Comments POCT GLU (test code = 3995548782) 270 mg/dL 70-110 H Lab Interpretation (test code = Abnormal 07551-9) [facility] GLUCOSE (AUTOMATED)2022-05-07 21:04:16 Test Item Value Reference Range Interpretation Comments POCT GLU (test code = 102 mg/dL 70-110 Notifi ed Provider [id number]) Lab Interpretation (test Normal code = 37274-2) [facility] GLUCOSE (AUTOMATED)2022-05-07 21:04:16 Test Item Value Reference Range Interpretation Comments POCT GLU (test code = 102 mg/dL 70-110 Notifi ed Provider [id number]) Lab Interpretation (test Normal code = 86120-5) [facility] GLUCOSE (AUTOMATED)2022-05-07 21:04:16 Test Item Value Reference Range Interpretation Comments POCT GLU (test code = 102 mg/dL 70-110 Notifi ed Provider [id number]) Lab Interpretation (test Normal code = 99675-2) [facility] GLUCOSE (AUTOMATED)2022-05-07 16:26:32 Test Item Value Reference Range Interpretation Comments POCT GLU (test code = 78 mg/dL 70-110 Notifi ed Provider [id number]) Lab Interpretation (test Normal code = 82633-8) [facility] GLUCOSE (AUTOMATED)2022-05-07 16:26:32 Test Item Value Reference Range Interpretation Comments POCT GLU (test code = 78 mg/dL 70-110 Notifi ed Provider [id number]) Lab Interpretation (test Normal code = 60507-4) [facility] GLUCOSE (AUTOMATED)2022-05-07 16:26:32 Test Item Value Reference Range Interpretation Comments POCT GLU (test code = 78 mg/dL 70-110 Notifi ed Provider [id number]) Lab Interpretation (test Normal code = 21640-4) [facility] 13:23:28 Test Item Value Reference Range Interpretation Comments POCT GLU (test code = 87 mg/dL 70-110 Notifi ed Provider [id number]) Lab Interpretation (test Normal code = 64313-5) [facility] 13:23:28 Test Item Value Reference Range Interpretation Comments POCT GLU (test code = 87 mg/dL 70-110 Notifi ed Provider [id number]) Lab Interpretation (test Normal code = 21472-6) [facility]07 13:23:28 Test Item Value Reference Range Interpretation Comments POCT GLU (test code = 87 mg/dL 70-110 Notifi ed Provider [id number]) Lab Interpretation (test Normal code = 12638-7) [facility]07 06:05:32 Test Item Value Reference Range Interpretation Comments POCT GLU (test code = 7838715134) 83 mg/dL 70-110 Lab Interpretation (test code = Normal 29326-2) [facility]22-[facility]07 06:05:32 Test Item Value Reference Range Interpretation Comments POCT GLU (test code = 0360018775) 83 mg/dL 70-110 Lab Interpretation (test code = Normal 53996-0) [facility]07 06:05:32 Test Item Value Reference Range Interpretation Comments POCT GLU (test code = 0888460691) 83 mg/dL 70-110 Lab Interpretation (test code = Normal 59149-6) [facility]22-[facility]-07 02:42:29 Test Item Value Reference Range Interpretation Comments POCT GLU (test code = 1189465301) 89 mg/dL 70-110 Lab Interpretation (test code = Normal 08511-4) [facility]42:29 Test Item Value Reference Range Interpretation Comments POCT GLU (test code = 3663669749) 89 mg/dL 70-110 Lab Interpretation (test code = Normal 40197-9) [facility] Test Item Value Reference Range Interpretation Comments POCT GLU (test code = 0058039582) 89 mg/dL 70-110 Lab Interpretation (test code = Normal 16489-6) [facility]:27:21 Test Item Value Reference Range Interpretation Comments POCT GLU (test code = 2597300668) 90 mg/dL 70-110 Lab Interpretation (test code = Normal 30800-2) [facility] GLUCOSE (AUTOMATED)2022-05-07 01:27:21 Test Item Value Reference Range Interpretation Comments POCT GLU (test code = 8168893460) 90 mg/dL 70-110 Lab Interpretation (test code = Normal 63134-3) [facility] GLUCOSE (AUTOMATED)2022-05-07 01:27:21 Test Item Value Reference Range Interpretation Comments POCT GLU (test code = 7181499590) 90 mg/dL 70-110 Lab Interpretation (test code = Normal 61842-5) [facility] GLUCOSE (AUTOMATED)2022-05-06 22:02:22 Test Item Value Reference Range Interpretation Comments POCT GLU (test code = 8580096075) 76 mg/dL 70-110 Lab Interpretation (test code = Normal 24229-6) [facility]:02:22 Test Item Value Reference Range Interpretation Comments POCT GLU (test code = 5215172267) 76 mg/dL 70-110 Lab Interpretation (test code = Normal 63574-5) [facility]:02:22 Test Item Value Reference Range Interpretation Comments POCT GLU (test code = 0913428967) 76 mg/dL 70-110 Lab Interpretation (test code = Normal 64735-3) [facility] 17:01:25 Test Item Value Reference Range Interpretation Comments POCT GLU (test code = 8958192811) 92 mg/dL 70-110 Lab Interpretation (test code = Normal 45488-1) [facility] GLUCOSE (AUTOMATED)2022-05-06 17:01:25 Test Item Value Reference Range Interpretation Comments POCT GLU (test code = 1325104898) 92 mg/dL 70-110 Lab Interpretation (test code = Normal 65418-2) [facility] 17:01:25 Test Item Value Reference Range Interpretation Comments POCT GLU (test code = 5027875325) 92 mg/dL 70-110 Lab Interpretation (test code = Normal 51021-8) [facility] 13:49:34 Test Item Value Reference Range Interpretation Comments POCT GLU (test code = 8116319012) 104 mg/dL 70-110 Lab Interpretation (test code = Normal 05274-9) [facility] 13:49:34 Test Item Value Reference Range Interpretation Comments POCT GLU (test code = 5042190659) 104 mg/dL 70-110 Lab Interpretation (test code = Normal 37416-8) [facility] GLUCOSE (AUTOMATED)2022-05-06 13:49:34 Test Item Value Reference Range Interpretation Comments POCT GLU (test code = 0388486305) 104 mg/dL 70-110 Lab Interpretation (test code = Normal 84192-4) [facility] 10:03:34 Test Item Value Reference Range Interpretation Comments POCT GLU (test code = 7979078935) 79 mg/dL 70-110 Lab Interpretation (test code = Normal 93236-6) [facility] GLUCOSE (AUTOMATED)2022-05-06 10:03:34 Test Item Value Reference Range Interpretation Comments POCT GLU (test code = 0902181892) 79 mg/dL 70-110 Lab Interpretation (test code = Normal 51512-3) [facility] GLUCOSE (AUTOMATED)2022-05-06 10:03:34 Test Item Value Reference Range Interpretation Comments POCT GLU (test code = 2520927586) 79 mg/dL 70-110 Lab Interpretation (test code = Normal 54808-6) [facility] 09:02:14 Test Item Value Reference Range Interpretation Comments POCT GLU (test code = 5480400141) 77 mg/dL 70-110 Lab Interpretation (test code = Normal 02435-5) [facility] GLUCOSE (AUTOMATED)2022-05-06 09:02:14 Test Item Value Reference Range Interpretation Comments POCT GLU (test code = 3780139605) 77 mg/dL 70-110 Lab Interpretation (test code = Normal 51492-2) [facility] GLUCOSE (AUT[facility])2022-05-06 09:02:14 Test Item Value Reference Range Interpretation Comments POCT GLU (test code = 1829224444) 77 mg/dL 70-110 Lab Interpretation (test code = Normal 52871-3) [facility] GLUCOSE (AUTOMATED)2022-05-06 06:24:47 Test Item Value Reference Range Interpretation Comments POCT GLU (test code = 2684022625) 95 mg/dL 70-110 Lab Interpretation (test code = Normal 68180-9) [facility] GLUCOSE (AUTOMATED)2022-05-06 06:24:47 Test Item Value Reference Range Interpretation Comments POCT GLU (test code = 2100282609) 95 mg/dL 70-110 Lab Interpretation (test code = Normal 65988-1) [facility] GLUCOSE (AUTOMATED)2022-05-06 06:24:47 Test Item Value Reference Range Interpretation Comments POCT GLU (test code = 1342963048) 95 mg/dL 70-110 Lab Interpretation (test code = Normal 32972-8) [facility] GLUCOSE (AUTOMATED)2022-05-06 05:23:27 Test Item Value Reference Range Interpretation Comments POCT GLU (test code = 9809864709) 80 mg/dL 70-110 Lab Interpretation (test code = Normal 03434-5) [facility] GLUCOSE (AUTOMATED)2022-05-06 05:23:27 Test Item Value Reference Range Interpretation Comments POCT GLU (test code = 4390918243) 80 mg/dL 70-110 Lab Interpretation (test code = Normal 32734-6) [facility] GLUCOSE (AUTOMATED)2022-05-06 05:23:27 Test Item Value Reference Range Interpretation Comments POCT GLU (test code = 7485268675) 80 mg/dL 70-110 Lab Interpretation (test code = Normal 26449-2) [facility] GLUCOSE (AUTOMATED)2022-05-06 00:32:44 Test Item Value Reference Range Interpretation Comments POCT GLU (test code = 8923144053) 92 mg/dL 70-110 Lab Interpretation (test code = Normal 86414-9) [facility] GLUCOSE (AUTOMATED)2022-05-06 00:32:44 Test Item Value Reference Range Interpretation Comments POCT GLU (test code = 8157488743) 92 mg/dL 70-110 Lab Interpretation (test code = Normal 56769-2) [facility] GLUCOSE (AUTOMATED)2022-05-06 00:32:44 Test Item Value Reference Range Interpretation Comments POCT GLU (test code = 1396714432) 92 mg/dL 70-110 Lab Interpretation (test code = Normal 37209-3) [facility] GLUCOSE (AUTOMATED)2022-05-05 21:46:32 Test Item Value Reference Range Interpretation Comments POCT GLU (test code = 8023585629) 92 mg/dL 70-110 Lab Interpretation (test code = Normal 81025-5) [facility] GLUCOSE (AUTOMATED)2022-05-05 21:46:32 Test Item Value Reference Range Interpretation Comments POCT GLU (test code = 6404805835) 92 mg/dL 70-110 Lab Interpretation (test code = Normal 28794-9) [facility] GLUCOSE (AUTOMATED)2022-05-05 21:46:32 Test Item Value Reference Range Interpretation Comments POCT GLU (test code = 3369723640) 92 mg/dL 70-110 Lab Interpretation (test code = Normal 46509-6) [facility] GLUCOSE (AUTOMATED)2022-05-05 17:06:28 Test Item Value Reference Range Interpretation Comments POCT GLU (test code = 5101812529) 106 mg/dL 70-110 Lab Interpretation (test code = Normal 48796-7) [facility] GLUCOSE (AUTOMATED)2022-05-05 17:06:28 Test Item Value Reference Range Interpretation Comments POCT GLU (test code = 4791928288) 106 mg/dL 70-110 Lab Interpretation (test code = Normal 80879-5) [facility] GLUCOSE (AUTOMATED)2022-05-05 17:06:28 Test Item Value Reference Range Interpretation Comments POCT GLU (test code = 1349226841) 106 mg/dL 70-110 Lab Interpretation (test code = Normal 00489-4) [facility] GLUCOSE (AUTOMATED)2022-05-05 10:59:23 Test Item Value Reference Range Interpretation Comments POCT GLU (test code = 5303066581) 95 mg/dL 70-110 Lab Interpretation (test code = Normal 88643-6) [facility] GLUCOSE (AUTOMATED)2022-05-05 10:59:23 Test Item Value Reference Range Interpretation Comments POCT GLU (test code = 5808136602) 95 mg/dL 70-110 Lab Interpretation (test code = Normal 53223-2) [facility] GLUCOSE (AUTOMATED)2022-05-05 10:59:23 Test Item Value Reference Range Interpretation Comments POCT GLU (test code = 3840837128) 95 mg/dL 70-110 Lab Interpretation (test code = Normal 42844-3) [facility] GLUCOSE (AUTOMATED)2022-05-04 16:27:41 Test Item Value Reference Range Interpretation Comments POCT GLU (test code = 96 mg/dL 70-110 Notifi ed Provider [id number]) Lab Interpretation (test Normal code = 94318-3) [facility] GLUCOSE (AUTOMATED)2022-05-04 16:27:41 Test Item Value Reference Range Interpretation Comments POCT GLU (test code = 96 mg/dL 70-110 Notifi ed Provider [id number]) Lab Interpretation (test Normal code = 14128-2) [facility] GLUCOSE (AUTOMATED)2022-05-04 16:27:41 Test Item Value Reference Range Interpretation Comments POCT GLU (test code = 96 mg/dL 70-110 Notifi ed Provider [id number]) Lab Interpretation (test Normal code = 65867-8) [facility] METABOLIC PANEL (NA, K, CL, CO2, GLUCOSE, BUN, CREATININE, CA)2022-05-04 11:33:42 Test Item Value Reference Range Interpretation Comments NA (test code = 136 mmol/L 135-145 6384209877) K (test code = 3.2 mmol/L 3.5-5.0 L 9124058131) CL (test code = 114 mmol/L 98-108 H 6469074319) CO2 TOTAL (test code = 21 mmol/L 23-31 L 2157400536) AGAP (test code = 2-16 L 8647540075) BUN (test code = 2 mg/dL 7-23 L 0723041361) GLUCOSE (test code = 87 mg/dL 70-110 0685715359) CREATININE (test code = 0.38 mg/dL 0.50-1.04 L 8396262834) CALCIUM (test code = 7.3 mg/dL 8.6-10.6 L 8331402154) eGFR (test code = mL/min/1.73m2 7305890723) PARISH (test code = PARISH) Association of Glomerular Filtration Rate (GFR) and Staging of Kidney Disease* + --+ --+ ------+| GFR (mL/min/1.73 m2) ?| With Kidney Damage ?| ?Without Kidney Damage+ --------+ --------+ +| ?>90 ?| ?Stage one ?| ? Normal ?+ ---+ ---+ -------+| ?60-89 ?| ?Stage two ?| ? Decreased GFR ? + --+ --+ ------+| ?30-59 ?| ?Stage three ?| ? Stage three ? + --+ --+ ------+| ?15-29 ?| ?Stage four ? | ? Stage four ?+ ---+ ---+ -------+| ?<15 (or dialysis) ? ?| ?Stage five ? | ? Stage five ?+ ---+ ---+ -------+ *Each stage assumes the associated GFR level has been in effect for at least three months. ?Stages 1 to 5, with or without kidney disease, indicate chronic kidney disease. Notes: Determination of stages one and two (with eGFR >59mL/min/1.73 m2) requires estimation of kidney damage for at least three months as defined by structural or functional abnormalities of the kidney, manifested by either:Pathological abnormalities or Markers of kidney damage (including abnormalities in the composition of the blood or urine or abnormalities in imaging tests). Lab Interpretation Abnormal (test code = 18121-3) [facility] Test Item Value Reference Range Interpretation Comments MAGNESIUM (test code = 4240970755) 2.0 mg/dL 1.7-2.4 Lab Interpretation (test code = Normal 01146-8) [facility]42 Test Item Value Reference Range Interpretation Comments PHOSPHORUS (test code = 7715398732) 2.8 mg/dL 2.5-5.0 Lab Interpretation (test code = Normal 24113-1) [facility] METABOLIC PANEL (NA, K, CL, CO2, GLUCOSE, BUN, CREATININE, CA)2022-05-04 11:33:42 Test Item Value Reference Range Interpretation Comments NA (test code = 136 mmol/L 135-145 2497515883) K (test code = 3.2 mmol/L 3.5-5.0 L 6916202444) CL (test code = 114 mmol/L 98-108 H 2051915014) CO2 TOTAL (test code = 21 mmol/L 23-31 L 6757640577) AGAP (test code = 2-16 L 7382476363) BUN (test code = 2 mg/dL 7-23 L 7223141706) GLUCOSE (test code = 87 mg/dL 70-110 4406327840) CREATININE (test code = 0.38 mg/dL 0.50-1.04 L 1931150304) CALCIUM (test code = 7.3 mg/dL 8.6-10.6 L 5711281244) eGFR (test code = mL/min/1.73m2 5426016151) PARISH (test code = PARISH) Association of Glomerular Filtration Rate (GFR) and Staging of Kidney Disease* + --+ --+ ------+| GFR (mL/min/1.73 m2) ?| With Kidney Damage ?| ?Without Kidney Damage+ --------+ --------+ +| ?>90 ?| ?Stage one ?| ? Normal ?+ ---+ ---+ -------+| ?60-89 ?| ?Stage two ?| ? Decreased GFR ? + --+ --+ ------+| ?30-59 ?| ?Stage three ?| ? Stage three ? + --+ --+ ------+| ?15-29 ?| ?Stage four ? | ? Stage four ?+ ---+ ---+ -------+| ?<15 (or dialysis) ? ?| ?Stage five ? | ? Stage five ?+ ---+ ---+ -------+ *Each stage assumes the associated GFR level has been in effect for at least three months. ?Stages 1 to 5, with or without kidney disease, indicate chronic kidney disease. Notes: Determination of stages one and two (with eGFR >59mL/min/1.73 m2) requires estimation of kidney damage for at least three months as defined by structural or functional abnormalities of the kidney, manifested by either:Pathological abnormalities or Markers of kidney damage (including abnormalities in the composition of the blood or urine or abnormalities in imaging tests). Lab Interpretation Abnormal (test code = 69808-6) [facility]42 Test Item Value Reference Range Interpretation Comments MAGNESIUM (test code = 9092392526) 2.0 mg/dL 1.7-2.4 Lab Interpretation (test code = Normal 20070-5) [facility]:33:42 Test Item Value Reference Range Interpretation Comments PHOSPHORUS (test code = 8232850311) 2.8 mg/dL 2.5-5.0 Lab Interpretation (test code = Normal 72199-1) [facility] (NA, K, CL, CO2, GLUCOSE, BUN, CREATININE, CA)2022-05-04 11:33:42 Test Item Value Reference Range Interpretation Comments NA (test code = 136 mmol/L 135-145 4715469088) K (test code = 3.2 mmol/L 3.5-5.0 L 0873292412) CL (test code = 114 mmol/L 98-108 H 5135919143) CO2 TOTAL (test code = 21 mmol/L 23-31 L 2620846912) AGAP (test code = 2-16 L 8620508849) BUN (test code = 2 mg/dL 7-23 L 3861935666) GLUCOSE (test code = 87 mg/dL 70-110 2664363098) CREATININE (test code = 0.38 mg/dL 0.50-1.04 L 9328101411) CALCIUM (test code = 7.3 mg/dL 8.6-10.6 L 6371108994) eGFR (test code = mL/min/1.73m2 3689255947) PARISH (test code = PARISH) Association of Glomerular Filtration Rate (GFR) and Staging of Kidney Disease* + --+ --+ ------+| GFR (mL/min/1.73 m2) ?| With Kidney Damage ?| ?Without Kidney Damage+ --------+ --------+ +| ?>90 ?| ?Stage one ?| ? Normal ?+ ---+ ---+ -------+| ?60-89 ?| ?Stage two ?| ? Decreased GFR ? + --+ --+ ------+| ?30-59 ?| ?Stage three ?| ? Stage three ? + --+ --+ ------+| ?15-29 ?| ?Stage four ? | ? Stage four ?+ ---+ ---+ -------+| ?<15 (or dialysis) ? ?| ?Stage five ? | ? Stage five ?+ ---+ ---+ -------+ *Each stage assumes the associated GFR level has been in effect for at least three months. ?Stages 1 to 5, with or without kidney disease, indicate chronic kidney disease. Notes: Determination of stages one and two (with eGFR >59mL/min/1.73 m2) requires estimation of kidney damage for at least three months as defined by structural or functional abnormalities of the kidney, manifested by either:Pathological abnormalities or Markers of kidney damage (including abnormalities in the composition of the blood or urine or abnormalities in imaging tests). Lab Interpretation Abnormal (test code = 43680-8) [facility] 11:33:42 Test Item Value Reference Range Interpretation Comments MAGNESIUM (test code = 4435467656) 2.0 mg/dL 1.7-2.4 Lab Interpretation (test code = Normal 25629-9) [facility] 11:33:42 Test Item Value Reference Range Interpretation Comments PHOSPHORUS (test code = 3688955312) 2.8 mg/dL 2.5-5.0 Lab Interpretation (test code = Normal 90367-3) [facility] WITH [id number] 11:16:42 Test Item Value Reference Range Interpretation Comments WBC (test code = See_Comment H [Automated 6690-2) message] The sy stem which generated this result transmitted reference range : 4.30 - 11.10 10*3/?L. The reference range was not used to interpret this result as normal/abnormal . RBC (test code = See_Comment L [Automated 789-8) message] The sy stem which generated this result transmitted reference range : 3.93 - 5.25 10*6/?L. The reference range was not used to interpret this result as normal/abnormal . HGB (test code = 6.8 g/dL 11.6-15.0 L 718-7) HCT (test code = 20.3 % 35.7-45.2 L 4544-3) MCV (test code = 86.4 fL 80.6-95.5 787-2) MCH (test code = 28.9 pg 25.9-32.8 785-6) MCHC (test code = 33.5 g/dL 31.6-35.1 786-4) RDW-SD (test code = 50.1 fL 39.0-49.9 H 17834-1) RDW-CV (test code = 16.1 % 12.0-15.5 H 788-0) PLT (test code = See_Comment H [Automated 777-3) message] The sy stem which generated this result transmitted reference range : 166 - 358 10*3/ ?L. The reference r meli was not used to interpret this result as normal/abnormal . MPV (test code = 9.5 fL 9.5-12.9 38433-3) NRBC/100 WBC (test See_Comment [Automat ed code = 8215035520) message] The system which generated this result transmitted reference range : 0.0 - 10.0 /100 WBCs. The refer ence range was not u sed to interpret th is result as normal/abnormal . NRBC x10^3 (test code See_Comment [Auto mated = 6304914466) message] The s ystem which generated this result transmitted reference range : 10*3/?L. The reference range was not used to interpret this result as normal/abnormal . GRAN MAT (NEUT) % 66.8 % (test code = 770-8) IMM GRAN % (test code 0.60 % = 2877104741) LYMPH % (test code = 19.5 % 736-9) MONO % (test code = 9.4 % 5905-5) EOS % (test code = 3.4 % 713-8) BASO % (test code = 0.3 % 706-2) GRAN MAT x10^3(ANC) 7.59 10*3/uL 1.88-7.09 H (test code = 1951144294) IMM GRAN x10^3 (test 0.07 10*3/uL 0.00-0.06 H code = 9745237524) LYMPH x10^3 (test code 2.21 10*3/uL 1.32-3.29 = 731-0) MONO x10^3 (test code 1.07 10*3/uL 0.33-0.92 H = 742-7) EOS x10^3 (test code = 0.39 10*3/uL 0.03-0.39 711-2) BASO x10^3 (test code 0.03 10*3/uL 0.01-0.07 = 704-7) Lab Interpretation Abnormal (test code = 70260-2) [facility] WITH [id number] 11:16:42 Test Item Value Reference Range Interpretation Comments WBC (test code = See_Comment H [Automated 6690-2) message] The sy stem which generated this result transmitted reference range : 4.30 - 11.10 10*3/?L. The reference range was not used to interpret this result as normal/abnormal . RBC (test code = See_Comment L [Automated 789-8) message] The sy stem which generated this result transmitted reference range : 3.93 - 5.25 10*6/?L. The reference range was not used to interpret this result as normal/abnormal . HGB (test code = 6.8 g/dL 11.6-15.0 L 718-7) HCT (test code = 20.3 % 35.7-45.2 L 4544-3) MCV (test code = 86.4 fL 80.6-95.5 787-2) MCH (test code = 28.9 pg 25.9-32.8 785-6) MCHC (test code = 33.5 g/dL 31.6-35.1 786-4) RDW-SD (test code = 50.1 fL 39.0-49.9 H 63010-0) RDW-CV (test code = 16.1 % 12.0-15.5 H 788-0) PLT (test code = See_Comment H [Automated 777-3) message] The sy stem which generated this result transmitted reference range : 166 - 358 10*3/ ?L. The reference r meli was not used to interpret this result as normal/abnormal . MPV (test code = 9.5 fL 9.5-12.9 19857-4) NRBC/100 WBC (test See_Comment [Automat ed code = 9174847922) message] The system which generated this result transmitted reference range : 0.0 - 10.0 /100 WBCs. The refer ence range was not u sed to interpret th is result as normal/abnormal . NRBC x10^3 (test code See_Comment [Auto mated = 0375668307) message] The s ystem which generated this result transmitted reference range : 10*3/?L. The reference range was not used to interpret this result as normal/abnormal . GRAN MAT (NEUT) % 66.8 % (test code = 770-8) IMM GRAN % (test code 0.60 % = 5567119966) LYMPH % (test code = 19.5 % 736-9) MONO % (test code = 9.4 % 5905-5) EOS % (test code = 3.4 % 713-8) BASO % (test code = 0.3 % 706-2) GRAN MAT x10^3(ANC) 7.59 10*3/uL 1.88-7.09 H (test code = 8767838805) IMM GRAN x10^3 (test 0.07 10*3/uL 0.00-0.06 H code = 5669769078) LYMPH x10^3 (test code 2.21 10*3/uL 1.32-3.29 = 731-0) MONO x10^3 (test code 1.07 10*3/uL 0.33-0.92 H = 742-7) EOS x10^3 (test code = 0.39 10*3/uL 0.03-0.39 711-2) BASO x10^3 (test code 0.03 10*3/uL 0.01-0.07 = 704-7) Lab Interpretation Abnormal (test code = 61744-8) [facility] WITH [id number] 11:16:42 Test Item Value Reference Range Interpretation Comments WBC (test code = See_Comment H [Automated 6690-2) message] The sy stem which generated this result transmitted reference range : 4.30 - 11.10 10*3/?L. The reference range was not used to interpret this result as normal/abnormal . RBC (test code = See_Comment L [Automated 789-8) message] The sy stem which generated this result transmitted reference range : 3.93 - 5.25 10*6/?L. The reference range was not used to interpret this result as normal/abnormal . HGB (test code = 6.8 g/dL 11.6-15.0 L 718-7) HCT (test code = 20.3 % 35.7-45.2 L 4544-3) MCV (test code = 86.4 fL 80.6-95.5 787-2) MCH (test code = 28.9 pg 25.9-32.8 785-6) MCHC (test code = 33.5 g/dL 31.6-35.1 786-4) RDW-SD (test code = 50.1 fL 39.0-49.9 H 06706-5) RDW-CV (test code = 16.1 % 12.0-15.5 H 788-0) PLT (test code = See_Comment H [Automated 777-3) message] The sy stem which generated this result transmitted reference range : 166 - 358 10*3/ ?L. The reference r meli was not used to interpret this result as normal/abnormal . MPV (test code = 9.5 fL 9.5-12.9 18083-1) NRBC/100 WBC (test See_Comment [Automat ed code = 4562991149) message] The system which generated this result transmitted reference range : 0.0 - 10.0 /100 WBCs. The refer ence range was not u sed to interpret th is result as normal/abnormal . NRBC x10^3 (test code See_Comment [Auto mated = 8188362076) message] The s ystem which generated this result transmitted reference range : 10*3/?L. The reference range was not used to interpret this result as normal/abnormal . GRAN MAT (NEUT) % 66.8 % (test code = 770-8) IMM GRAN % (test code 0.60 % = 9650798135) LYMPH % (test code = 19.5 % 736-9) MONO % (test code = 9.4 % 5905-5) EOS % (test code = 3.4 % 713-8) BASO % (test code = 0.3 % 706-2) GRAN MAT x10^3(ANC) 7.59 10*3/uL 1.88-7.09 H (test code = 6905839324) IMM GRAN x10^3 (test 0.07 10*3/uL 0.00-0.06 H code = 3848086915) LYMPH x10^3 (test code 2.21 10*3/uL 1.32-3.29 = 731-0) MONO x10^3 (test code 1.07 10*3/uL 0.33-0.92 H = 742-7) EOS x10^3 (test code = 0.39 10*3/uL 0.03-0.39 711-2) BASO x10^3 (test code 0.03 10*3/uL 0.01-0.07 = 704-7) Lab Interpretation Abnormal (test code = 11334-0) [facility] GLUCOSE (AUTOMATED)2022-05-04 11:04:17 Test Item Value Reference Range Interpretation Comments POCT GLU (test code = 3949879966) 83 mg/dL 70-110 Lab Interpretation (test code = Normal 00337-4) [facility] GLUCOSE (AUTOMATED)2022-05-04 11:04:17 Test Item Value Reference Range Interpretation Comments POCT GLU (test code = 5649295976) 83 mg/dL 70-110 Lab Interpretation (test code = Normal 45892-5) [facility] GLUCOSE (AUTOMATED)2022-05-04 11:04:17 Test Item Value Reference Range Interpretation Comments POCT GLU (test code = 9025828200) 83 mg/dL 70-110 Lab Interpretation (test code = Normal 90788-8) [facility] GLUCOSE (AUTOMATED)2022-05-03 23:19:53 Test Item Value Reference Range Interpretation Comments POCT GLU (test code = 115 mg/dL 70-110 H Notifi ed Provider [id number]) Lab Interpretation (test Abnormal code = 19293-6) [facility]:19:53 Test Item Value Reference Range Interpretation Comments POCT GLU (test code = 115 mg/dL 70-110 H Notifi ed Provider [id number]) Lab Interpretation (test Abnormal code = 09957-8) [facility] 23:19:53 Test Item Value Reference Range Interpretation Comments POCT GLU (test code = 115 mg/dL 70-110 H Notifi ed Provider [id number]) Lab Interpretation (test Abnormal code = 02314-9) [facility] GLUCOSE (AUTOMATED)2022-05-03 16:29:24 Test Item Value Reference Range Interpretation Comments POCT GLU (test code = 86 mg/dL 70-110 Notifi ed Provider [id number]) Lab Interpretation (test Normal code = 77776-7) [facility] GLUCOSE (AUTOMATED)2022-05-03 16:29:24 Test Item Value Reference Range Interpretation Comments POCT GLU (test code = 86 mg/dL 70-110 Notifi ed Provider [id number]) Lab Interpretation (test Normal code = 57892-2) [facility] 16:29:24 Test Item Value Reference Range Interpretation Comments POCT GLU (test code = 86 mg/dL 70-110 Notifi ed Provider [id number]) Lab Interpretation (test Normal code = 69271-0) [facility] 11:14:25 Test Item Value Reference Range Interpretation Comments POCT GLU (test code = 6224479369) 80 mg/dL 70-110 Lab Interpretation (test code = Normal 28966-9) [facility]:14:25 Test Item Value Reference Range Interpretation Comments POCT GLU (test code = 5835473328) 80 mg/dL 70-110 Lab Interpretation (test code = Normal 96967-5) [facility] GLUCOSE (AUTOMATED)2022-05-03 11:14:25 Test Item Value Reference Range Interpretation Comments POCT GLU (test code = 0316680233) 80 mg/dL 70-110 Lab Interpretation (test code = Normal 92607-9) [facility] 11:09:32 Test Item Value Reference Range Interpretation Comments PHOSPHORUS (test code = 1175373583) 2.8 mg/dL 2.5-5.0 Lab Interpretation (test code = Normal 24121-0) [facility]:09:32 Test Item Value Reference Range Interpretation Comments MAGNESIUM (test code = 8891854336) 2.0 mg/dL 1.7-2.4 Lab Interpretation (test code = Normal 70058-0) [facility] (NA, K, CL, CO2, GLUCOSE, BUN, CREATININE, CA)2022-05-03 11:09:32 Test Item Value Reference Range Interpretation Comments NA (test code = 133 mmol/L 135-145 L 5988837744) K (test code = 3.9 mmol/L 3.5-5.0 6253015255) CL (test code = 111 mmol/L 98-108 H 7752054151) CO2 TOTAL (test code = 20 mmol/L 23-31 L 7036398465) AGAP (test code = 2-16 4842838231) BUN (test code = 5 mg/dL 7-23 L 3023490359) GLUCOSE (test code = 64 mg/dL 70-110 L 0377643515) CREATININE (test code = 0.36 mg/dL 0.50-1.04 L 8994402279) CALCIUM (test code = 7.4 mg/dL 8.6-10.6 L 1533837380) eGFR (test code = mL/min/1.73m2 5085802007) PARISH (test code = PARISH) Association of Glomerular Filtration Rate (GFR) and Staging of Kidney Disease* + --+ --+ ------+| GFR (mL/min/1.73 m2) ?| With Kidney Damage ?| ?Without Kidney Damage+ --------+ --------+ +| ?>90 ?| ?Stage one ?| ? Normal ?+ ---+ ---+ -------+| ?60-89 ?| ?Stage two ?| ? Decreased GFR ? + --+ --+ ------+| ?30-59 ?| ?Stage three ?| ? Stage three ? + --+ --+ ------+| ?15-29 ?| ?Stage four ? | ? Stage four ?+ ---+ ---+ -------+| ?<15 (or dialysis) ? ?| ?Stage five ? | ? Stage five ?+ ---+ ---+ -------+ *Each stage assumes the associated GFR level has been in effect for at least three months. ?Stages 1 to 5, with or without kidney disease, indicate chronic kidney disease. Notes: Determination of stages one and two (with eGFR >59mL/min/1.73 m2) requires estimation of kidney damage for at least three months as defined by structural or functional abnormalities of the kidney, manifested by either:Pathological abnormalities or Markers of kidney damage (including abnormalities in the composition of the blood or urine or abnormalities in imaging tests). Lab Interpretation Abnormal (test code = 17301-3) [facility]:09:32 Test Item Value Reference Range Interpretation Comments PHOSPHORUS (test code = 4086895283) 2.8 mg/dL 2.5-5.0 Lab Interpretation (test code = Normal 46481-6) [facility] 11:09:32 Test Item Value Reference Range Interpretation Comments MAGNESIUM (test code = 1357627697) 2.0 mg/dL 1.7-2.4 Lab Interpretation (test code = Normal 92800-7) [facility] (NA, K, CL, CO2, GLUCOSE, BUN, CREATININE, CA)2022-05-03 11:09:32 Test Item Value Reference Range Interpretation Comments NA (test code = 133 mmol/L 135-145 L 0312746805) K (test code = 3.9 mmol/L 3.5-5.0 0219435480) CL (test code = 111 mmol/L 98-108 H 0920019465) CO2 TOTAL (test code = 20 mmol/L 23-31 L 6164132542) AGAP (test code = 2-16 3725166450) BUN (test code = 5 mg/dL 7-23 L 6705264941) GLUCOSE (test code = 64 mg/dL 70-110 L 9250323606) CREATININE (test code = 0.36 mg/dL 0.50-1.04 L 3702726406) CALCIUM (test code = 7.4 mg/dL 8.6-10.6 L 6678570655) eGFR (test code = mL/min/1.73m2 8448699591) PARISH (test code = PARISH) Association of Glomerular Filtration Rate (GFR) and Staging of Kidney Disease* + --+ --+ ------+| GFR (mL/min/1.73 m2) ?| With Kidney Damage ?| ?Without Kidney Damage+ --------+ --------+ +| ?>90 ?| ?Stage one ?| ? Normal ?+ ---+ ---+ -------+| ?60-89 ?| ?Stage two ?| ? Decreased GFR ? + --+ --+ ------+| ?30-59 ?| ?Stage three ?| ? Stage three ? + --+ --+ ------+| ?15-29 ?| ?Stage four ? | ? Stage four ?+ ---+ ---+ -------+| ?<15 (or dialysis) ? ?| ?Stage five ? | ? Stage five ?+ ---+ ---+ -------+ *Each stage assumes the associated GFR level has been in effect for at least three months. ?Stages 1 to 5, with or without kidney disease, indicate chronic kidney disease. Notes: Determination of stages one and two (with eGFR >59mL/min/1.73 m2) requires estimation of kidney damage for at least three months as defined by structural or functional abnormalities of the kidney, manifested by either:Pathological abnormalities or Markers of kidney damage (including abnormalities in the composition of the blood or urine or abnormalities in imaging tests). Lab Interpretation Abnormal (test code = 35191-0) [facility]:09:32 Test Item Value Reference Range Interpretation Comments PHOSPHORUS (test code = 9584364968) 2.8 mg/dL 2.5-5.0 Lab Interpretation (test code = Normal 16039-1) [facility]:09:32 Test Item Value Reference Range Interpretation Comments MAGNESIUM (test code = 1871925415) 2.0 mg/dL 1.7-2.4 Lab Interpretation (test code = Normal 02523-7) [facility] METABOLIC PANEL (NA, K, CL, CO2, GLUCOSE, BUN, CREATININE, CA)2022-05-03 11:09:32 Test Item Value Reference Range Interpretation Comments NA (test code = 133 mmol/L 135-145 L 2430009462) K (test code = 3.9 mmol/L 3.5-5.0 3080488760) CL (test code = 111 mmol/L 98-108 H 9488094281) CO2 TOTAL (test code = 20 mmol/L 23-31 L 4460375276) AGAP (test code = 2-16 4604430280) BUN (test code = 5 mg/dL 7-23 L 5972134338) GLUCOSE (test code = 64 mg/dL 70-110 L 5223695029) CREATININE (test code = 0.36 mg/dL 0.50-1.04 L 0085865402) CALCIUM (test code = 7.4 mg/dL 8.6-10.6 L 1080817102) eGFR (test code = mL/min/1.73m2 3091206953) PARISH (test code = PARISH) Association of Glomerular Filtration Rate (GFR) and Staging of Kidney Disease* + --+ --+ ------+| GFR (mL/min/1.73 m2) ?| With Kidney Damage ?| ?Without Kidney Damage+ --------+ --------+ +| ?>90 ?| ?Stage one ?| ? Normal ?+ ---+ ---+ -------+| ?60-89 ?| ?Stage two ?| ? Decreased GFR ? + --+ --+ ------+| ?30-59 ?| ?Stage three ?| ? Stage three ? + --+ --+ ------+| ?15-29 ?| ?Stage four ? | ? Stage four ?+ ---+ ---+ -------+| ?<15 (or dialysis) ? ?| ?Stage five ? | ? Stage five ?+ ---+ ---+ -------+ *Each stage assumes the associated GFR level has been in effect for at least three months. ?Stages 1 to 5, with or without kidney disease, indicate chronic kidney disease. Notes: Determination of stages one and two (with eGFR >59mL/min/1.73 m2) requires estimation of kidney damage for at least three months as defined by structural or functional abnormalities of the kidney, manifested by either:Pathological abnormalities or Markers of kidney damage (including abnormalities in the composition of the blood or urine or abnormalities in imaging tests). Lab Interpretation Abnormal (test code = 32295-0) [facility] WITH [id number] 10:37:32 Test Item Value Reference Range Interpretation Comments WBC (test code = See_Comment H [Automated 6690-2) message] The sy stem which generated this result transmitted reference range : 4.30 - 11.10 10*3/?L. The reference range was not used to interpret this result as normal/abnormal . RBC (test code = See_Comment L [Automated 789-8) message] The sy stem which generated this result transmitted reference range : 3.93 - 5.25 10*6/?L. The reference range was not used to interpret this result as normal/abnormal . HGB (test code = 7.9 g/dL 11.6-15.0 L 718-7) HCT (test code = 23.6 % 35.7-45.2 L 4544-3) MCV (test code = 86.1 fL 80.6-95.5 787-2) MCH (test code = 28.8 pg 25.9-32.8 785-6) MCHC (test code = 33.5 g/dL 31.6-35.1 786-4) RDW-SD (test code = 50.6 fL 39.0-49.9 H 13681-1) RDW-CV (test code = 16.4 % 12.0-15.5 H 788-0) PLT (test code = See_Comment H [Automated 777-3) message] The sy stem which generated this result transmitted reference range : 166 - 358 10*3/ ?L. The reference r meli was not used to interpret this result as normal/abnormal . MPV (test code = 9.4 fL 9.5-12.9 L 22325-8) NRBC/100 WBC (test See_Comment [Automat ed code = 9064965414) message] The system which generated this result transmitted reference range : 0.0 - 10.0 /100 WBCs. The refer ence range was not u sed to interpret th is result as normal/abnormal . NRBC x10^3 (test code See_Comment [Auto mated = 2806792404) message] The s ystem which generated this result transmitted reference range : 10*3/?L. The reference range was not used to interpret this result as normal/abnormal . GRAN MAT (NEUT) % 73.5 % (test code = 770-8) IMM GRAN % (test code 0.50 % = 8303292136) LYMPH % (test code = 15.5 % 736-9) MONO % (test code = 8.6 % 5905-5) EOS % (test code = 1.7 % 713-8) BASO % (test code = 0.2 % 706-2) GRAN MAT x10^3(ANC) 9.22 10*3/uL 1.88-7.09 H (test code = 8195048180) IMM GRAN x10^3 (test 0.06 10*3/uL 0.00-0.06 code = 7479471956) LYMPH x10^3 (test code 1.95 10*3/uL 1.32-3.29 = 731-0) MONO x10^3 (test code 1.08 10*3/uL 0.33-0.92 H = 742-7) EOS x10^3 (test code = 0.21 10*3/uL 0.03-0.39 711-2) BASO x10^3 (test code 0.03 10*3/uL 0.01-0.07 = 704-7) Lab Interpretation Abnormal (test code = 22775-0) [facility] WITH [id number] 10:37:32 Test Item Value Reference Range Interpretation Comments WBC (test code = See_Comment H [Automated 6690-2) message] The sy stem which generated this result transmitted reference range : 4.30 - 11.10 10*3/?L. The reference range was not used to interpret this result as normal/abnormal . RBC (test code = See_Comment L [Automated 789-8) message] The sy stem which generated this result transmitted reference range : 3.93 - 5.25 10*6/?L. The reference range was not used to interpret this result as normal/abnormal . HGB (test code = 7.9 g/dL 11.6-15.0 L 718-7) HCT (test code = 23.6 % 35.7-45.2 L 4544-3) MCV (test code = 86.1 fL 80.6-95.5 787-2) MCH (test code = 28.8 pg 25.9-32.8 785-6) MCHC (test code = 33.5 g/dL 31.6-35.1 786-4) RDW-SD (test code = 50.6 fL 39.0-49.9 H 53770-0) RDW-CV (test code = 16.4 % 12.0-15.5 H 788-0) PLT (test code = See_Comment H [Automated 777-3) message] The sy stem which generated this result transmitted reference range : 166 - 358 10*3/ ?L. The reference r meli was not used to interpret this result as normal/abnormal . MPV (test code = 9.4 fL 9.5-12.9 L 61731-1) NRBC/100 WBC (test See_Comment [Automat ed code = 5068770710) message] The system which generated this result transmitted reference range : 0.0 - 10.0 /100 WBCs. The refer ence range was not u sed to interpret th is result as normal/abnormal . NRBC x10^3 (test code See_Comment [Auto mated = 2371045672) message] The s ystem which generated this result transmitted reference range : 10*3/?L. The reference range was not used to interpret this result as normal/abnormal . GRAN MAT (NEUT) % 73.5 % (test code = 770-8) IMM GRAN % (test code 0.50 % = 2544710024) LYMPH % (test code = 15.5 % 736-9) MONO % (test code = 8.6 % 5905-5) EOS % (test code = 1.7 % 713-8) BASO % (test code = 0.2 % 706-2) GRAN MAT x10^3(ANC) 9.22 10*3/uL 1.88-7.09 H (test code = 2084903266) IMM GRAN x10^3 (test 0.06 10*3/uL 0.00-0.06 code = 6022437899) LYMPH x10^3 (test code 1.95 10*3/uL 1.32-3.29 = 731-0) MONO x10^3 (test code 1.08 10*3/uL 0.33-0.92 H = 742-7) EOS x10^3 (test code = 0.21 10*3/uL 0.03-0.39 711-2) BASO x10^3 (test code 0.03 10*3/uL 0.01-0.07 = 704-7) Lab Interpretation Abnormal (test code = 75368-4) [facility] WITH [id number] 10:37:32 Test Item Value Reference Range Interpretation Comments WBC (test code = See_Comment H [Automated 6690-2) message] The sy stem which generated this result transmitted reference range : 4.30 - 11.10 10*3/?L. The reference range was not used to interpret this result as normal/abnormal . RBC (test code = See_Comment L [Automated 789-8) message] The sy stem which generated this result transmitted reference range : 3.93 - 5.25 10*6/?L. The reference range was not used to interpret this result as normal/abnormal . HGB (test code = 7.9 g/dL 11.6-15.0 L 718-7) HCT (test code = 23.6 % 35.7-45.2 L 4544-3) MCV (test code = 86.1 fL 80.6-95.5 787-2) MCH (test code = 28.8 pg 25.9-32.8 785-6) MCHC (test code = 33.5 g/dL 31.6-35.1 786-4) RDW-SD (test code = 50.6 fL 39.0-49.9 H 34263-2) RDW-CV (test code = 16.4 % 12.0-15.5 H 788-0) PLT (test code = See_Comment H [Automated 777-3) message] The sy stem which generated this result transmitted reference range : 166 - 358 10*3/ ?L. The reference r meli was not used to interpret this result as normal/abnormal . MPV (test code = 9.4 fL 9.5-12.9 L 46129-4) NRBC/100 WBC (test See_Comment [Automat ed code = 2053471826) message] The system which generated this result transmitted reference range : 0.0 - 10.0 /100 WBCs. The refer ence range was not u sed to interpret th is result as normal/abnormal . NRBC x10^3 (test code See_Comment [Auto mated = 1712963074) message] The s ystem which generated this result transmitted reference range : 10*3/?L. The reference range was not used to interpret this result as normal/abnormal . GRAN MAT (NEUT) % 73.5 % (test code = 770-8) IMM GRAN % (test code 0.50 % = 1117258912) LYMPH % (test code = 15.5 % 736-9) MONO % (test code = 8.6 % 5905-5) EOS % (test code = 1.7 % 713-8) BASO % (test code = 0.2 % 706-2) GRAN MAT x10^3(ANC) 9.22 10*3/uL 1.88-7.09 H (test code = 1884318395) IMM GRAN x10^3 (test 0.06 10*3/uL 0.00-0.06 code = 8805641133) LYMPH x10^3 (test code 1.95 10*3/uL 1.32-3.29 = 731-0) MONO x10^3 (test code 1.08 10*3/uL 0.33-0.92 H = 742-7) EOS x10^3 (test code = 0.21 10*3/uL 0.03-0.39 711-2) BASO x10^3 (test code 0.03 10*3/uL 0.01-0.07 = 704-7) Lab Interpretation Abnormal (test code = 73143-9) [facility] GLUCOSE (AUTOMATED)2022-05-03 06:13:59 Test Item Value Reference Range Interpretation Comments POCT GLU (test code = 3324457713) 64 mg/dL 70-110 L Lab Interpretation (test code = Abnormal 72779-7) [facility] GLUCOSE (AUTOMATED)2022-05-03 06:13:59 Test Item Value Reference Range Interpretation Comments POCT GLU (test code = 6300905180) 64 mg/dL 70-110 L Lab Interpretation (test code = Abnormal 40578-2) [facility] GLUCOSE (AUTOMATED)2022-05-03 06:13:59 Test Item Value Reference Range Interpretation Comments POCT GLU (test code = 7739790149) 64 mg/dL 70-110 L Lab Interpretation (test code = Abnormal 80900-9) [facility] GLUCOSE (AUTOMATED)2022-05-02 21:41:31 Test Item Value Reference Range Interpretation Comments POCT GLU (test code = 1310228172) 74 mg/dL 70-110 Lab Interpretation (test code = Normal 51348-9) [facility] GLUCOSE (AUTOMATED)2022-05-02 21:41:31 Test Item Value Reference Range Interpretation Comments POCT GLU (test code = 6723933280) 74 mg/dL 70-110 Lab Interpretation (test code = Normal 47932-2) [facility] GLUCOSE (AUTOMATED)2022-05-02 21:41:31 Test Item Value Reference Range Interpretation Comments POCT GLU (test code = 8356159718) 74 mg/dL 70-110 Lab Interpretation (test code = Normal 67681-5) [facility]CA2[facility]2022-05-02 06:49:12 Test Item Value Reference Range Interpretation Comments PH (test code = 2) 7.35-7.45 PCO2 (test code = See_Comment L [Automate d message] 9146789039) The system [employer] generated this result transmit palma reference range : 35 - 45 mmHg. The reference range was not used to interpret this result as normal/abnormal . PO2 (test code = See_Comment H [Automated message] 9559208813) The system [employer] generated this result transmit palma reference range : 80 - 100 mmHg. The reference range was not used to interpret this result as normal/abnormal . HCO3 (test code = See_Comment L [Automate d message] 5265991756) The system [employer] generated this result transmit palma reference range : 22 - 26 mEq/L. The reference range was not used to interpret this result as normal/abnormal . BE (test code = See_Comment L [Automated message] 3681328654) The system [employer] generated this result transmit palma reference range : -3.0 - 3.0 mEq/ L. The reference r meli was not used to interpret this result as normal/abnormal . THB (test code = 8.2 g/dL 12.0-16.0 LL 4875033465) %O2HB (test code = 98.7 % 94.0-99.0 6002378747) %COHB ART (test code = 0.8 % 0.0-1.5 9579233742) %METHB ART (test code = 0.2 % 0.4-1.5 L 8027203462) VOL%O2 ART (test code = 12.0 % 15.0-23.0 L 5259734276) NA (test code = 135 mmol/L 135-145 6836757891) K+ (test code = 3.3 mmol/L 3.5-5.0 L 1505435963) AC CA IONZ (test code = 4.40 mg/dL 4.50-5.30 L 4713078850) GLUCOSE (test code = 97 mg/dL 70-110 3634219097) Lab Interpretation Abnormal (test code = 42045-9) [facility]-02 06:49:12 Test Item Value Reference Range Interpretation Comments PH (test code = 2) 7.35-7.45 PCO2 (test code = See_Comment L [Automate d message] 9698089636) The system [employer] generated this result transmit palma reference range : 35 - 45 mmHg. The reference range was not used to interpret this result as normal/abnormal . PO2 (test code = See_Comment H [Automated message] 8505755300) The system [employer] generated this result transmit palma reference range : 80 - 100 mmHg. The reference range was not used to interpret this result as normal/abnormal . HCO3 (test code = See_Comment L [Automate d message] 8610578796) The system [employer] generated this result transmit palma reference range : 22 - 26 mEq/L. The reference range was not used to interpret this result as normal/abnormal . BE (test code = See_Comment L [Automated message] 8554680740) The system [employer] generated this result transmit palma reference range : -3.0 - 3.0 mEq/ L. The reference r emli was not used to interpret this result as normal/abnormal . THB (test code = 8.2 g/dL 12.0-16.0 LL 9534993238) %O2HB (test code = 98.7 % 94.0-99.0 3465744791) %COHB ART (test code = 0.8 % 0.0-1.5 0303834333) %METHB ART (test code = 0.2 % 0.4-1.5 L 7515421473) VOL%O2 ART (test code = 12.0 % 15.0-23.0 L 0526365388) NA (test code = 135 mmol/L 135-145 8872260357) K+ (test code = 3.3 mmol/L 3.5-5.0 L 2056878571) AC CA IONZ (test code = 4.40 mg/dL 4.50-5.30 L 4129283354) GLUCOSE (test code = 97 mg/dL 70-110 9573489085) Lab Interpretation Abnormal (test code = 45243-5) [facility]-05-02 06:49:12 Test Item Value Reference Range Interpretation Comments PH (test code = 2) 7.35-7.45 PCO2 (test code = See_Comment L [Automate d message] 8923435817) The system [employer] generated this result transmit palma reference range : 35 - 45 mmHg. The reference range was not used to interpret this result as normal/abnormal . PO2 (test code = See_Comment H [Automated message] 9449716253) The system [employer] generated this result transmit palma reference range : 80 - 100 mmHg. The reference range was not used to interpret this result as normal/abnormal . HCO3 (test code = See_Comment L [Automate d message] 3603854676) The system [employer] generated this result transmit palma reference range : 22 - 26 mEq/L. The reference range was not used to interpret this result as normal/abnormal . BE (test code = See_Comment L [Automated message] 9055024482) The system [employer] generated this result transmit palma reference range : -3.0 - 3.0 mEq/ L. The reference r meli was not used to interpret this result as normal/abnormal . THB (test code = 8.2 g/dL 12.0-16.0 LL 5560491773) %O2HB (test code = 98.7 % 94.0-99.0 0372533901) %COHB ART (test code = 0.8 % 0.0-1.5 8643076694) %METHB ART (test code = 0.2 % 0.4-1.5 L 7894386073) VOL%O2 ART (test code = 12.0 % 15.0-23.0 L 9420095510) NA (test code = 135 mmol/L 135-145 7141998565) K+ (test code = 3.3 mmol/L 3.5-5.0 L 0156856269) AC CA IONZ (test code = 4.40 mg/dL 4.50-5.30 L 0531818401) GLUCOSE (test code = 97 mg/dL 70-110 3991052181) Lab Interpretation Abnormal (test code = 65110-4) [facility] GLUCOSE (AUTOMATED)2022-05-01 23:26:08 Test Item Value Reference Range Interpretation Comments POCT GLU (test code = 0265897421) 89 mg/dL 70-110 Lab Interpretation (test code = Normal 31702-0) [facility] GLUCOSE (AUTOMATED)2022-05-01 23:26:08 Test Item Value Reference Range Interpretation Comments POCT GLU (test code = 4382475765) 89 mg/dL 70-110 Lab Interpretation (test code = Normal 92520-2) [facility] GLUCOSE (AUTOMATED)2022-05-01 23:26:08 Test Item Value Reference Range Interpretation Comments POCT GLU (test code = 0878148310) 89 mg/dL 70-110 Lab Interpretation (test code = Normal 60179-3) [facility] GLUCOSE (AUTOMATED)2022-05-01 23:06:28 Test Item Value Reference Range Interpretation Comments POCT GLU (test code = 4371793532) 78 mg/dL 70-110 Lab Interpretation (test code = Normal 61523-8) [facility] GLUCOSE (AUTOMATED)2022-05-01 23:06:28 Test Item Value Reference Range Interpretation Comments POCT GLU (test code = 0796083736) 78 mg/dL 70-110 Lab Interpretation (test code = Normal 21495-0) [facility] GLUCOSE (AUTOMATED)2022-05-01 23:06:28 Test Item Value Reference Range Interpretation Comments POCT GLU (test code = 8487063905) 78 mg/dL 70-110 Lab Interpretation (test code = Normal 98088-9) [facility] METABOLIC PANEL (NA, K, CL, CO2, GLUCOSE, BUN, CREATININE, CA)2022-05-01 09:30:04 Test Item Value Reference Range Interpretation Comments NA (test code = 137 mmol/L 135-145 3801291579) K (test code = 3.5 mmol/L 3.5-5.0 7610703418) CL (test code = 114 mmol/L 98-108 H 8008854460) CO2 TOTAL (test code = 22 mmol/L 23-31 L 7854512790) AGAP (test code = 2-16 L 7890027479) BUN (test code = 6 mg/dL 7-23 L 2782647407) GLUCOSE (test code = 103 mg/dL 70-110 6364372665) CREATININE (test code = 0.39 mg/dL 0.50-1.04 L 9665511185) CALCIUM (test code = 7.2 mg/dL 8.6-10.6 L 3595260974) eGFR (test code = mL/min/1.73m2 1973473817) PARISH (test code = PARIHS) Association of Glomerular Filtration Rate (GFR) and Staging of Kidney Disease* + --+ --+ ------+| GFR (mL/min/1.73 m2) ?| With Kidney Damage ?| ?Without Kidney Damage+ --------+ --------+ +| ?>90 ?| ?Stage one ?| ? Normal ?+ ---+ ---+ -------+| ?60-89 ?| ?Stage two ?| ? Decreased GFR ? + --+ --+ ------+| ?30-59 ?| ?Stage three ?| ? Stage three ? + --+ --+ ------+| ?15-29 ?| ?Stage four ? | ? Stage four ?+ ---+ ---+ -------+| ?<15 (or dialysis) ? ?| ?Stage five ? | ? Stage five ?+ ---+ ---+ -------+ *Each stage assumes the associated GFR level has been in effect for at least three months. ?Stages 1 to 5, with or without kidney disease, indicate chronic kidney disease. Notes: Determination of stages one and two (with eGFR >59mL/min/1.73 m2) requires estimation of kidney damage for at least three months as defined by structural or functional abnormalities of the kidney, manifested by either:Pathological abnormalities or Markers of kidney damage (including abnormalities in the composition of the blood or urine or abnormalities in imaging tests). Lab Interpretation Abnormal (test code = 91717-5) [facility] Test Item Value Reference Range Interpretation Comments MAGNESIUM (test code = 4727404142) 1.9 mg/dL 1.7-2.4 Lab Interpretation (test code = Normal 08966-4) [facility] Test Item Value Reference Range Interpretation Comments PHOSPHORUS (test code = 5939099108) 2.9 mg/dL 2.5-5.0 Lab Interpretation (test code = Normal 30605-9) [facility]54599[facility] (ALB,T.PRO,BILI T,BU/BC,ALT,AST,ALK PHOS)2022-05-01 09:30:04 Test Item Value Reference Range Interpretation Comments TOTAL BILI (test code = 3693953518) 0.2 mg/dL 0.1-1.1 BILI UNCON (test code = 0216194267) 0.0 mg/dL 0.1-1.1 L BILI CONJ (test code = 7544433407) 0.0 mg/dL 0.0-0.3 T PROTEIN (test code = 4108555220) 5.6 g/dL 6.3-8.2 L ALBUMIN (test code = 5151272488) 2.2 g/dL 3.5-5.0 L ALK PHOS (test code = 9108520586) 82 U/L 34-122 ALTv (test code = 1742-6) 13 U/L 5-35 AST(SGOT) (test code = 6934649118) 32 U/L 13-40 Lab Interpretation (test code = Abnormal 58172-1) [facility] METABOLIC PANEL (NA, K, CL, CO2, GLUCOSE, BUN, CREATININE, CA)2022-05-01 09:30:04 Test Item Value Reference Range Interpretation Comments NA (test code = 137 mmol/L 135-145 5435343620) K (test code = 3.5 mmol/L 3.5-5.0 0031142074) CL (test code = 114 mmol/L 98-108 H 1795252122) CO2 TOTAL (test code = 22 mmol/L 23-31 L 4068535560) AGAP (test code = 2-16 L 1568325074) BUN (test code = 6 mg/dL 7-23 L 7578581659) GLUCOSE (test code = 103 mg/dL 70-110 5937574128) CREATININE (test code = 0.39 mg/dL 0.50-1.04 L 9188810606) CALCIUM (test code = 7.2 mg/dL 8.6-10.6 L 1084943201) eGFR (test code = mL/min/1.73m2 5649231250) PARISH (test code = PARISH) Association of Glomerular Filtration Rate (GFR) and Staging of Kidney Disease* + --+ --+ ------+| GFR (mL/min/1.73 m2) ?| With Kidney Damage ?| ?Without Kidney Damage+ --------+ --------+ +| ?>90 ?| ?Stage one ?| ? Normal ?+ ---+ ---+ -------+| ?60-89 ?| ?Stage two ?| ? Decreased GFR ? + --+ --+ ------+| ?30-59 ?| ?Stage three ?| ? Stage three ? + --+ --+ ------+| ?15-29 ?| ?Stage four ? | ? Stage four ?+ ---+ ---+ -------+| ?<15 (or dialysis) ? ?| ?Stage five ? | ? Stage five ?+ ---+ ---+ -------+ *Each stage assumes the associated GFR level has been in effect for at least three months. ?Stages 1 to 5, with or without kidney disease, indicate chronic kidney disease. Notes: Determination of stages one and two (with eGFR >59mL/min/1.73 m2) requires estimation of kidney damage for at least three months as defined by structural or functional abnormalities of the kidney, manifested by either:Pathological abnormalities or Markers of kidney damage (including abnormalities in the composition of the blood or urine or abnormalities in imaging tests). Lab Interpretation Abnormal (test code = 01938-8) [facility] Test Item Value Reference Range Interpretation Comments MAGNESIUM (test code = 9084785320) 1.9 mg/dL 1.7-2.4 Lab Interpretation (test code = Normal 23005-0) [facility] Test Item Value Reference Range Interpretation Comments PHOSPHORUS (test code = 2940523460) 2.9 mg/dL 2.5-5.0 Lab Interpretation (test code = Normal 15458-1) [facility]10591[facility] (ALB,T.PRO,BILI T,BU/BC,ALT,AST,ALK PHOS)2022-05-01 09:30:04 Test Item Value Reference Range Interpretation Comments TOTAL BILI (test code = 3559660146) 0.2 mg/dL 0.1-1.1 BILI UNCON (test code = 6295177432) 0.0 mg/dL 0.1-1.1 L BILI CONJ (test code = 5359064555) 0.0 mg/dL 0.0-0.3 T PROTEIN (test code = 9126979059) 5.6 g/dL 6.3-8.2 L ALBUMIN (test code = 6123625294) 2.2 g/dL 3.5-5.0 L ALK PHOS (test code = 4776864636) 82 U/L 34-122 ALTv (test code = 1742-6) 13 U/L 5-35 AST(SGOT) (test code = 8232432999) 32 U/L 13-40 Lab Interpretation (test code = Abnormal 69362-7) [facility] (NA, K, CL, CO2, GLUCOSE, BUN, CREATININE, CA)2022-05-01 09:30:04 Test Item Value Reference Range Interpretation Comments NA (test code = 137 mmol/L 135-145 6202811046) K (test code = 3.5 mmol/L 3.5-5.0 1389034757) CL (test code = 114 mmol/L 98-108 H 9480562500) CO2 TOTAL (test code = 22 mmol/L 23-31 L 3170390889) AGAP (test code = 2-16 L 0020129447) BUN (test code = 6 mg/dL 7-23 L 2755130278) GLUCOSE (test code = 103 mg/dL 70-110 3422407199) CREATININE (test code = 0.39 mg/dL 0.50-1.04 L 7053775816) CALCIUM (test code = 7.2 mg/dL 8.6-10.6 L 6289520839) eGFR (test code = mL/min/1.73m2 0370997144) PARISH (test code = PARISH) Association of Glomerular Filtration Rate (GFR) and Staging of Kidney Disease* + --+ --+ ------+| GFR (mL/min/1.73 m2) ?| With Kidney Damage ?| ?Without Kidney Damage+ --------+ --------+ +| ?>90 ?| ?Stage one ?| ? Normal ?+ ---+ ---+ -------+| ?60-89 ?| ?Stage two ?| ? Decreased GFR ? + --+ --+ ------+| ?30-59 ?| ?Stage three ?| ? Stage three ? + --+ --+ ------+| ?15-29 ?| ?Stage four ? | ? Stage four ?+ ---+ ---+ -------+| ?<15 (or dialysis) ? ?| ?Stage five ? | ? Stage five ?+ ---+ ---+ -------+ *Each stage assumes the associated GFR level has been in effect for at least three months. ?Stages 1 to 5, with or without kidney disease, indicate chronic kidney disease. Notes: Determination of stages one and two (with eGFR >59mL/min/1.73 m2) requires estimation of kidney damage for at least three months as defined by structural or functional abnormalities of the kidney, manifested by either:Pathological abnormalities or Markers of kidney damage (including abnormalities in the composition of the blood or urine or abnormalities in imaging tests). Lab Interpretation Abnormal (test code = 01732-0) [facility]04 Test Item Value Reference Range Interpretation Comments MAGNESIUM (test code = 9495222280) 1.9 mg/dL 1.7-2.4 Lab Interpretation (test code = Normal 22001-6) [facility] 09:30:04 Test Item Value Reference Range Interpretation Comments PHOSPHORUS (test code = 1663486443) 2.9 mg/dL 2.5-5.0 Lab Interpretation (test code = Normal 09793-4) [facility]47015[facility] (ALB,T.PRO,BILI T,BU/BC,ALT,AST,ALK PHOS)2022-05-01 09:30:04 Test Item Value Reference Range Interpretation Comments TOTAL BILI (test code = 8971139799) 0.2 mg/dL 0.1-1.1 BILI UNCON (test code = 8977626287) 0.0 mg/dL 0.1-1.1 L BILI CONJ (test code = 6158783156) 0.0 mg/dL 0.0-0.3 T PROTEIN (test code = 1940871144) 5.6 g/dL 6.3-8.2 L ALBUMIN (test code = 6117666210) 2.2 g/dL 3.5-5.0 L ALK PHOS (test code = 1573703809) 82 U/L 34-122 ALTv (test code = 1742-6) 13 U/L 5-35 AST(SGOT) (test code = 0969834675) 32 U/L 13-40 Lab Interpretation (test code = Abnormal 20100-1) [facility] [id number] 09:08:20 Test Item Value Reference Range Interpretation Comments WBC (test code = See_Comment H [Automated 6690-2) message] The sy stem which generated this result transmitted reference range : 4.30 - 11.10 10*3/?L. The reference range was not used to interpret this result as normal/abnormal . RBC (test code = See_Comment L [Automated 789-8) message] The sy stem which generated this result transmitted reference range : 3.93 - 5.25 10*6/?L. The reference range was not used to interpret this result as normal/abnormal . HGB (test code = 8.1 g/dL 11.6-15.0 L 718-7) HCT (test code = 24.8 % 35.7-45.2 L 4544-3) MCV (test code = 87.6 fL 80.6-95.5 787-2) MCH (test code = 28.6 pg 25.9-32.8 785-6) MCHC (test code = 32.7 g/dL 31.6-35.1 786-4) RDW-SD (test code = 52.8 fL 39.0-49.9 H 73329-5) RDW-CV (test code = 16.8 % 12.0-15.5 H 788-0) PLT (test code = See_Comment H [Automated 777-3) message] The sy stem which generated this result transmitted reference range : 166 - 358 10*3/ ?L. The reference r meli was not used to interpret this result as normal/abnormal . MPV (test code = 9.7 fL 9.5-12.9 65209-4) NRBC/100 WBC (test See_Comment [Automat ed code = 4878413236) message] The system which generated this result transmitted reference range : 0.0 - 10.0 /100 WBCs. The refer ence range was not u sed to interpret th is result as normal/abnormal . NRBC x10^3 (test code See_Comment [Auto mated = 6107177369) message] The s ystem which generated this result transmitted reference range : 10*3/?L. The reference range was not used to interpret this result as normal/abnormal . GRAN MAT (NEUT) % 70.8 % (test code = 770-8) IMM GRAN % (test code 0.50 % = 5812044133) LYMPH % (test code = 15.1 % 736-9) MONO % (test code = 9.6 % 5905-5) EOS % (test code = 3.8 % 713-8) BASO % (test code = 0.2 % 706-2) GRAN MAT x10^3(ANC) 9.13 10*3/uL 1.88-7.09 H (test code = 0818106504) IMM GRAN x10^3 (test 0.06 10*3/uL 0.00-0.06 code = 9621420360) LYMPH x10^3 (test code 1.94 10*3/uL 1.32-3.29 = 731-0) MONO x10^3 (test code 1.23 10*3/uL 0.33-0.92 H = 742-7) EOS x10^3 (test code = 0.49 10*3/uL 0.03-0.39 H 711-2) BASO x10^3 (test code 0.01-0.07 = 704-7) Lab Interpretation Abnormal (test code = 75553-0) [facility] WITH [id number] 09:08:20 Test Item Value Reference Range Interpretation Comments WBC (test code = See_Comment H [Automated 6690-2) message] The sy stem which generated this result transmitted reference range : 4.30 - 11.10 10*3/?L. The reference range was not used to interpret this result as normal/abnormal . RBC (test code = See_Comment L [Automated 789-8) message] The sy stem which generated this result transmitted reference range : 3.93 - 5.25 10*6/?L. The reference range was not used to interpret this result as normal/abnormal . HGB (test code = 8.1 g/dL 11.6-15.0 L 718-7) HCT (test code = 24.8 % 35.7-45.2 L 4544-3) MCV (test code = 87.6 fL 80.6-95.5 787-2) MCH (test code = 28.6 pg 25.9-32.8 785-6) MCHC (test code = 32.7 g/dL 31.6-35.1 786-4) RDW-SD (test code = 52.8 fL 39.0-49.9 H 27415-0) RDW-CV (test code = 16.8 % 12.0-15.5 H 788-0) PLT (test code = See_Comment H [Automated 777-3) message] The sy stem which generated this result transmitted reference range : 166 - 358 10*3/ ?L. The reference r meli was not used to interpret this result as normal/abnormal . MPV (test code = 9.7 fL 9.5-12.9 62746-5) NRBC/100 WBC (test See_Comment [Automat ed code = 4366948443) message] The system which generated this result transmitted reference range : 0.0 - 10.0 /100 WBCs. The refer ence range was not u sed to interpret th is result as normal/abnormal . NRBC x10^3 (test code See_Comment [Auto mated = 8331775009) message] The s ystem which generated this result transmitted reference range : 10*3/?L. The reference range was not used to interpret this result as normal/abnormal . GRAN MAT (NEUT) % 70.8 % (test code = 770-8) IMM GRAN % (test code 0.50 % = 7074882678) LYMPH % (test code = 15.1 % 736-9) MONO % (test code = 9.6 % 5905-5) EOS % (test code = 3.8 % 713-8) BASO % (test code = 0.2 % 706-2) GRAN MAT x10^3(ANC) 9.13 10*3/uL 1.88-7.09 H (test code = 0539779679) IMM GRAN x10^3 (test 0.06 10*3/uL 0.00-0.06 code = 2171966866) LYMPH x10^3 (test code 1.94 10*3/uL 1.32-3.29 = 731-0) MONO x10^3 (test code 1.23 10*3/uL 0.33-0.92 H = 742-7) EOS x10^3 (test code = 0.49 10*3/uL 0.03-0.39 H 711-2) BASO x10^3 (test code 0.01-0.07 = 704-7) Lab Interpretation Abnormal (test code = 77520-3) [facility] WITH [id number] 09:08:20 Test Item Value Reference Range Interpretation Comments WBC (test code = See_Comment H [Automated 6690-2) message] The sy stem which generated this result transmitted reference range : 4.30 - 11.10 10*3/?L. The reference range was not used to interpret this result as normal/abnormal . RBC (test code = See_Comment L [Automated 789-8) message] The sy stem which generated this result transmitted reference range : 3.93 - 5.25 10*6/?L. The reference range was not used to interpret this result as normal/abnormal . HGB (test code = 8.1 g/dL 11.6-15.0 L 718-7) HCT (test code = 24.8 % 35.7-45.2 L 4544-3) MCV (test code = 87.6 fL 80.6-95.5 787-2) MCH (test code = 28.6 pg 25.9-32.8 785-6) MCHC (test code = 32.7 g/dL 31.6-35.1 786-4) RDW-SD (test code = 52.8 fL 39.0-49.9 H 11503-1) RDW-CV (test code = 16.8 % 12.0-15.5 H 788-0) PLT (test code = See_Comment H [Automated 777-3) message] The sy stem which generated this result transmitted reference range : 166 - 358 10*3/ ?L. The reference r meli was not used to interpret this result as normal/abnormal . MPV (test code = 9.7 fL 9.5-12.9 03730-2) NRBC/100 WBC (test See_Comment [Automat ed code = 8177773706) message] The system which generated this result transmitted reference range : 0.0 - 10.0 /100 WBCs. The refer ence range was not u sed to interpret th is result as normal/abnormal . NRBC x10^3 (test code See_Comment [Auto mated = 7815228695) message] The s ystem which generated this result transmitted reference range : 10*3/?L. The reference range was not used to interpret this result as normal/abnormal . GRAN MAT (NEUT) % 70.8 % (test code = 770-8) IMM GRAN % (test code 0.50 % = 1541216632) LYMPH % (test code = 15.1 % 736-9) MONO % (test code = 9.6 % 5905-5) EOS % (test code = 3.8 % 713-8) BASO % (test code = 0.2 % 706-2) GRAN MAT x10^3(ANC) 9.13 10*3/uL 1.88-7.09 H (test code = 9819532957) IMM GRAN x10^3 (test 0.06 10*3/uL 0.00-0.06 code = 6633583227) LYMPH x10^3 (test code 1.94 10*3/uL 1.32-3.29 = 731-0) MONO x10^3 (test code 1.23 10*3/uL 0.33-0.92 H = 742-7) EOS x10^3 (test code = 0.49 10*3/uL 0.03-0.39 H 711-2) BASO x10^3 (test code 0.01-0.07 = 704-7) Lab Interpretation Abnormal (test code = 96545-1) [facility] GLUCOSE (AUTOMATED)2022-04-30 23:31:23 Test Item Value Reference Range Interpretation Comments POCT GLU (test code = 8239389755) 80 mg/dL 70-110 Lab Interpretation (test code = Normal 01686-6) [facility] GLUCOSE (AUTOMATED)2022-04-30 23:31:23 Test Item Value Reference Range Interpretation Comments POCT GLU (test code = 1744417619) 80 mg/dL 70-110 Lab Interpretation (test code = Normal 25764-3) [facility] GLUCOSE (AUTOMATED)2022-04-30 23:31:23 Test Item Value Reference Range Interpretation Comments POCT GLU (test code = 7730374958) 80 mg/dL 70-110 Lab Interpretation (test code = Normal 64426-8) [facility] [id number] 22:37:11 Test Item Value Reference Range Interpretation Comments TSH (test code = See_Comment H Biotin has been 3980951961) reported to cau se a negative bias, interpret resul ts relative to pat ient's use of biotin. [Automated mess age] The system [employer] generated this result transmitted ref erence range: 0.45 - 4 .70 mIU/L. The refe rence range was not u sed to interpret this result as normal/abnor mal. Lab Interpretation (test Abnormal code = 98529-1) [facility] [id number] 22:37:11 Test Item Value Reference Range Interpretation Comments TSH (test code = See_Comment H Biotin has been 4341674837) reported to cau se a negative bias, interpret resul ts relative to pat ient's use of biotin. [Automated mess age] The system [employer] generated this result transmitted ref erence range: 0.45 - 4 .70 mIU/L. The refe rence range was not u sed to interpret this result as normal/abnor mal. Lab Interpretation (test Abnormal code = 16776-0) [facility] [id number] 22:37:11 Test Item Value Reference Range Interpretation Comments TSH (test code = See_Comment H Biotin has been 0334107459) reported to cau se a negative bias, interpret resul ts relative to pat ient's use of biotin. [Automated mess age] The system [employer] generated this result transmitted ref erence range: 0.45 - 4 .70 mIU/L. The refe rence range was not u sed to interpret this result as normal/abnor mal. Lab Interpretation (test Abnormal code = 26262-4) [facility] [id number] 18:57:43 Test Item Value Reference Range Interpretation Comments Case Report (test Surgical Pathology ? code = 5207614546) ?Case: [id number] ? Authorizing Provider: ?Ernst Hopkins MD ?Collected: ? 04/27/2022 2019 ?Ordering Location: ? ? [facility] ? ? Received: ?04/27/20222154 ? Center ? Pathologist: ? Alonso, Gary, PhD ?Specimen: ? ?LARGE INTESTINE, SIGMOID COLON, sigmoid colon, stitch is distal ? Final Diagnosis o2pgiAKlGAZnm0olQECtsXSkFwY (test code = wMzNcZnRuYmpcdWMxIHtccnRmMV 6332701905) muiUbhTDSiOTJxMF3nsRzdnEb8f FrbQIKufhP4yDYmNGgxw3kpGZD5 c0fpymsgOUPyBTgjHx1btHUujBj gRiZlDFEeDGd6dA85CLAnmC6qrS XrJSq0VMOkrEEdncNtQbJtJOEyf AMdiDX3XRSxKG5utjbcEKhoLGul ZBKsrsU2PVYitWNeF4ZeSGNjOJ2 xdxyqLWE0TPrqQVJyJYW3CzCtDO Wwn8Fkqzf0WmDdyTQdPTbbkOZmn lxmczIwXHBhciBBLiBMQVJHRSBJ KrYIS3PBNzJvHSFJV23IBNAqE60 JV36mILNSF7DPHQwDZzrcwAFiRN AgICAtIERJVkVSVElDVUxJVElTI VjTJIahU8RFB8RPPRiXYDMxiwBj AGQkKQWZEKOJC9HPU38aPBKHH1a OUyBBUkUgVklBQkxFXHBhclxwYX JcZnMyMiBKdWFuIENhcmxvcyBBb BEgreJ3LN2emhWknzmbGOMzVECx NrS6JdVhRvEcGKQ3ExJoJE0kxLI xHWUsUcMzZSnbQYY1y8vcbBWpVB VplFFoWuAsZRRzLOBog6ahXNRjl GFuZzEwMzNcZnRuYmpcdWMxXGRl CzSbo0adx826pPQbc2dqQQEdZkD 6jAThVESjdPesfqv6nHvzQsIzMB Rfs4yhdtRcYcYdIWHoSYUeMNHgn ACqY662GMHbEDjhp1wbb6XtLYEj vJRzs2F4IUTIQBtzSgAoP624n3x ty8hrcyZfpTN6TGWbYOM0ZGsmit WetmF0VOznqYAfDhA5SKxxhoJiE CprobPzgnAaAju0CQNaU623BDL9 oHmlw4ycFCA6QWMrSAFwKyvxWe7 fuTAaE527KVVoMDLYLBOgdEf0VU ShndZblzTqbYAZz492U898x7sqZ QTxxrPwcErGutxug8qwR767AZPo oDNiptImBnEaUYGzuTKbjQO2QSR fHF8qhqadSYyvOVeaKTTiotV8HO RxwNDpO4OsYVVyRJ9ohcxvPKQ8D XykKYRdBYU8AhYkGUCzw9Xsxup0 MxCira7ebk96BZL7s6HlvFrdWFD 5HWA6XrUzIq9goZSyITDnJT4oAe BdpZRsNEYvwj20eEsmHJirueAbh E6gSlTwLSYzdWOtRSMyIQ7vjCPv OJWodC1hafyhZPYnQbDepafcSVC viUpniaTlUe6opMoeQFD6FNpcO9 lxaH7nIsU5MGiaK0wqgN3mEOp7R KsbuCO4SXSywD6iRF6akyufn9cz PRblMEzdTXIbhxD9gcC3FWZyxTE qT5QxcB9nZETbXY1eajbny4yvPH T0UNgaBFVqGAE7HsNrWFCqq6Bjg iq6QmLyn8PkbOXtIHhrV31wj411 CHNizlDpW3iuxVTedcgkuCPzyub yZHjvbjR9QPJpVFBuLHwuZBZzAT ZzMjBcbGFuZzEwMzNcaGljaFxmM NyhHxUxNIFlAHxvI5tfTlAkR4Mj EJXmSnLwqFJdHYutaWR0BWTzCSU ve61udWi6KNHqspcrb4NbWNJdmA MwdXEmjJ7xwbQlo9tjGBYzABJsA VSjF6VvSXA3hCAoWUSndKUezGF4 SH3qyzKaLA8kRUBqLffzqiWenNV ldqDjDTHiRVumj6rnSE9kNBVixB ixyE1gtSN5YICdd6yoeGYmrBObo 5nep2IxiaAlPEfhYCDtXJsbHZBn PAVcGT5zAZZtcWTtjiFqq5T3Glx knHDejliwMzfcmiH2NAuomsfkJA XjHByjQ2liMrCeMRDqdKmcInyjk 6MsLDWhNKJiAksrsTJpyO0= Clinical Layne Cortney Carvalho is a 72 Information (test year old code = 8261050553) femaleDiverticulitis large intestine w/o perforation or abscess w/bleeding [K57.33] Gross Description w3lroNNtPCNbbFUhFYPcA0yfwrD (test code = aDRRvgLJoV3AuxnreZXlrEQ8zKQ 7929055443) 4qcNaqdOXbvPMyNMJrJlGqn3qnb 335lCFvg0srLJXMjcuqqVb8nGjc F66sb0W6EnvpO27edUCkNHO1VON rYVLooHGqJWWtRJY7FMSjzWQtT6 ypDWQkHN0crdlwKXbgKMsxLLQig MX5NLFknXPbH2BtVAVwFHhdXNJk wxx0IdWhIh8quKNvlCsuSTujLpe ojQola9JdtZVdQFqtDWKqAOBkHL jgyofyLGv1ENTxZLigbBBrEU7vk PzeYhmbaYeqt2RmdYGxFFpcDQOc SYNcETraIZWaD9ISWESpLns6XHy 9QVIrQZf2BCsuW0AMSOStJPTyLw Z0UJBwLwG1UJi8YFHLJz8mPBK2Y XL1MEuaUYQ1SRVpMSMqUKSuSwEt XGZsIFxcZiBBcmlhbCBcXGZzIDE cJTwrldB0RXQlozEwaPpwvW1nFa VtMZMKLPKFZO0RZfJJOZCdkzbwf zIyIFNwZWNpbWVuIEEgaXMgcmVj MUi5XWUnjU7vPr7rbZCkmX5nnLQ sXDchFEOsq2l6lDJ4tSHzcBI6dX JufWkjIgJzBH2saPNmKSIIOV87j SSshqQnPGPlMLJtERWxdeMct9Cr soXhKTEbT70voELbG20lp18hRGQ kL95xeYOrG47mp52bWLV7vDSltG AexjZszTW8UNzjF0J3JTcuYYOth oRtN34gp8gauFUau0YrRCK6VI6k qIzrajVaJUQiJRBya3edpOHbAYl jLA41GHjmUg58HSMhSTulKXourx h9jOYzlNDaFjXaTw63SYXxPNtdH NUdYP1pxZDrOQ7oXAYmPCSjNHik RQWcu5YtjCCfEAV5AYEmLY4fCLK kx2aipkI6eH6fTJHes2FnlB3wKK PcYTQwGXMxv4XfyRLrtxSkFQHiG GKsLSFdh9ViVLJyiBa6W6igWEJw FRMsE0Ics5x4hYOmlVDbm1FxURy fEfW2BY9lrABycJ93JZM6uDTjxS AqFGUwWBVchBZvvn7tSYXoLQMdf h07fU8pgMKfHTFpvK1pZR2pXLVt OgBqY16xRbVcqSD7dNKvVSrnkAD xAR8xraxgbn2cXWIzPCNxsOAblZ 4jmqCleqMhdCHaGCTmcD6vnhT8E CAnJAOdiLY7GN55OGo2mHRlVKMl qSdtOGG0eQXmFPFjpszfGkZus11 lTc9uoTPoGLRkL1NpPT9bsKWauN KfDfNrUPdrOL00J59pERHxtlUib VZ6hDNxXOUxGTRidzfwfPMwASHh EZZbqhs6uEOcFORltJWaYP5aQWa jHTTkgTIkt1WihPTbPg0fJE03bO RpcGxlIGRpdmVydGljdWxhLCAxI D4sSOdrpFJfMIvlEQVbsHmyXTO9 wTXoWYAttdmrOrIkn13dCmxwD6a fSpLtYDscsLI2WIZqCOyhHWBZyw CdVMMmOLsaNYpzt8VfwQllwHXbm uJkGqjrVN6jNBVdwQQrp8ZedLE8 aYAxUKXdS2Qjf99qXKAkGEByvKG ikXO7RVXneC2bEZSkCTLqEJhclq KqjQzfXSSRYFI3bL9nAJWcOGB4B PbkglPfMMD9AVPzm6ZsfTJuYOVg rE1gTPPsHFMdB9HkHTEvbNxtVDe 5JBumxwQfBSQ4EVGcu9zcqCNqOF 5mxhqfhccmWE9zAqGwRZwxOP04w KCztLmxjAXtAMNfBzEMeHN4gaMb ALBbSqHbcFalccYzztRpXB35KUT xpaUszXRmPLM1DeISyZKbegVkN1 DkADRmsPpzEHLis1y8xNOzUYGhR EInz4xcQIQhZ6GwMW8vfSRqlCXw ZVVwbiQOBYucUWo6SAU8eDU0zVP pXNSbtOMig0IruWI5mYSdPSCdcw TUHukqQTEvf7VdBWVrDMGrLFMvz bTkdHb4EOtohY6eWJBwcnPQbSqv PRFLD9xtoUYrBErdSIYCIDhQW1U OAPqxKYBvM4WoH1EvmsI1t5ynmY cjg2ZfgFYuOA1pxKTimQ== Disclaimer (test g9lwdMPsQBAhw2cxNVAebCQjQjY code = [id number]) wMzNcZnRuYmpcdWMxIHtccnRmMV uxk3XzP1MnHgWlSOjgpoTfHBYxI stdadrrBCAbSOR0psDwBDOtPSry KOLaMSooCm3heUGyiGcaEbHyMWM ui1ickmHXDJrhFdLbU748DFDvEF teq4zxh1VzIWXymJZte5T0WNNDh tpwgMy6eDsbC87ke7J3CaigO2sd XZNzCXIfK4MoHN1wJQIjPtn4LZA 0VNL6MGVvALMhQ7BuLR4mQUReaR CdEAz8r3ohyQapJMInVHE7a9hqU SxicxKsRM3ews0wcSx5l5hadsYf LBBlETFogIJBFRIaW6YzaHuqAx7 rnBn3yXroLrapMWI8Uul5TO8ckq 67xti7bXdbVZJalmbzHcK6YWxeV DTfooboDVw6MYlpTMOnfAW1NRBt tYLhB2VhAZQwII6ocde9JRR7CGq mNINsXcU7GSFcnPHnRWTioOkuJU fri097ERK8MnRsGE8pL3Dza7G6c W4qsIYfIAEejDBnWjZzGSJylb0f tAFkJFmur4YoHCA9avQ7oHSjwSK jCSIeMB79Sgujm0CvEwfvz1MiI7 5nuJV5LEeym6srJI1mUwN9xiPjC Nvzr4opmF0pIeA8AScyQQ0fHN1m PJKpsJ4yeriaRUIbPrUzkufzTIO xpSdxmlUkWu8zcIfvRGV2TMjbB0 jhxT0jWwP1YDzoT6umkR9yXMa3A TumyKQ6BSHhxI9sVM9anusnv9qo SAqaCUcnKNWzxcT2flJ8XLPxcJM jD4KggK5dDWVqHL4unlmue4ijSO F0ZBnzOSNoCLV6QiXsKBKtv4Axw me3VvKmo6LazTOuBDliR44wb476 XBNmvjCeF8mdiVFhrvgclIVwwip gIFxjweK3RNRrrcZls2YrTQNeHR W7QQnzBCllsOTgQGUslJihc4wxR 3RscGFyXHBsYWluXGYxXGZzMjBc bGFuZzEwMzNcaGljaFxmMVxkYmN tVKIoLVhfI4ctVcEnY2WsVKUtWb OobBArM8itVAdlqgKtKVOrtcNri CD9CQplS0z6PZMnsiTlrCn3cgZj HqWzLFMcQTD6XEiogZKyGXIla5S rkzhyeQWwId7huYLqFDChvE6bTF OfAUKzCAqqPK6xmDz3AHVPbHKpa RGhIuPNKJPzIC22xdUcJDDNnnsj w8J9YUpvTBOui5FddALnG7vqu3I iXXBje49pUH4vu7L6j1imBQT1SG 6ne5QmIHIbeUQmeOJgKWSzi4Ubb mnng0MkLUGlihYef1UiNHXlraGy qFLoPEHebmYyhw5trmIlWCWdPXE xX6TpotxlkJzrldJtZATkcl4xeq CyBRW5GKOSWFYlVFGpq2ZnoS8dd OPJKRI4uROrzd3xyjAPeMTuMTWh bc77HAZkHK1xZ0haXAAjHHBjnkW hrYSxg1WdKYLhbJJ1jOYaAM0FQf JGu87aFNWcXGMBlrVoCBVakTiyi LY2elS0kL3hNWzIZNBaZyy+IFRo WAZTVSBhZN3ermGew2HwhdUlfUn jZSPlqIBdu8PhjZWhr2NpxPixa3 PfyLHxoQXdJS0xZKEjaunqMQJbP UHLStLRWZDculX4w8YdUKKbLZMf MDG0qLrrktp5CPWwzZ4vZTOrT5z hntuuCPkmKQXlc5BiyE9rhQIBqS Hov4ZvfRPitYXMgZDvSX9rbkTeG UhUCQpQHRJ0zdSgOGRao9GuPDfw S6ksL68yeBzvgZk9vWB4OVO8wM6 nLlx+IFxwYXJccGFyIEFwcHJvcH NeTCVyyKtwddFiJ0NwuwBhgU8dw MFmnmHiWJ4oJX7nJ5H6tLPjNZMs nwGrd7ckHLlzlnHcQoNbeqGbTUZ nOWtoOFSbx6PqQAjcKEG9VEnibt BpbmNsdWRpbmcgSCZFLCBTcGVja QGwNJZ7CMzjwjHxcrQcGB2tnS9d oBrisN2vzVZsvUJ4ikdwOLBnXDN teLmfMTUyID6tvRNbWDQdqnZOrL aamCRukV4xQ4TgSMXhDJImkv6dS SEfyV4mDChih7GumuwrMMXvCYCj JTZgkqYffm2kBPDxkNBSDB4LIJr tySQnu5MaeiWaO8nUGPZ9KUTeGe MkXgniRFNauRXqgMExMIFsmw85R CShjD9jiNlzAGQufE4hdX5bpKcm vL1qIhPtHnEtZNkmBI8vTHDuF3c crZLrGCJfQYLeK2qiJdLueH7ziD paFIgvQqQvFcZsAOfbXSD9hM== Embedded Images (test code = [id number]) [facility] [id number] 18:57:43 Test Item Value Reference Range Interpretation Comments Case Report (test Surgical Pathology ? code = [id number]) ?Case: [id number] ? Authorizing Provider: ?Ernst Hopkins MD ?Collected: ? 04/27/20222018 ?Ordering Location: ? ? [facility] ? ? Received: ?04/27/20222154 ? Center ? Pathologist: ? Gary Gupta MD PhD ?Specimen: ? ?LARGE INTESTINE, SIGMOID COLON, sigmoid colon, stitch is distal ? Final Diagnosis n9ppoVHkFJHcr6snEBCuyCTbSuJ (test code = wMzNcZnRuYmpcdWMxIHtccnRmMV [id number]) zosXijOFYuNXPnIA7znDmbqIg2r ZpvUDAiykF0cJYqPMdbi0olWAO6 q0piazyeFQFmMCjvTo2afHDkwZv tCsMtYPCfACp4fN80SIWnqU2fhJ LjQPt5ENAhgHSjbcDlLgIxQVXcp NWizYY9PRKjQK9zztlpOMbmSDuj YZBvnyZ6OVPrmHGiI4HdFGFaQF1 omkycNEQ8TFmfNMAhFDY1OiBdWW Nqx7Apacm3TqGjnSGtEOhlmBHho lxmczIwXHBhciBBLiBMQVJHRSBJ VhWIK9LPKbCxZHXRV06FUYQaV18 NF67jWJQYO2QUHBqHJjrruSEyUW AgICAtIERJVkVSVElDVUxJVElTI AeDSMhlE2XNK3VVIZyJTLRoqhJt TOKaKLVWMXRXH6FPH34yMTLOZ0g OUyBBUkUgVklBQkxFXHBhclxwYX JcZnMyMiBKdWFuIENhcmxvcyBBb IIfxcJ8MU6gyySnsvgvVSFlTLPw NnN3YnQpWsBnGJR7IrGcFZ1prGR kQRZmGkRhCPmwEAY0n2gwgSQyPZ CskZZzXxQdOTKkNEGlw9wdGEMkn GFuZzEwMzNcZnRuYmpcdWMxXGRl NsRrp2gbo024xAGmb5xhNTJaQdT 9dBYsIKIybSmxtpr6iCvdSaVtJN Oru1ixlcZkScQqIAIeNCExKOIvj RTxD291OMArOFlem4phz1VqPZJv gSOio6Q9YQQARRvpLhTzR513u5n ok7gjvbUmnYK9ROYnCUL9SDnkiu MtxmL5WMgmzZQqUbF7PUnqntGhT IndaeNilrHtVtm9HFHeR127SLA5 iQenz0vmZHJ7VODaKVEnLdfuWc1 jzPMuC512TRVcICVLCCKcoUx3QX HlloEeprXvjKNNq459A089b2tcW PNgcxSmoGrSfhnpm6ccU336DWDz dILzayYkWbHrTVAlcKSzqJE2RHC nJV6rnftdPGloRGnkLMKtkhD4HR StqDHfT2PcKQCeIG3niuffJKQ7C HzgDBQfMFB6VgDnETKhs7Ramff2 ChLuko2ztd55ILU0y0AlrBatRGM 6OUL0UeFkDp8xoWUdPRFrXY5lNa ZnfDKfHERuiu17lDkqMIvbopAgw J9eWqSlVJZiiSZtBVNrWF2jyYYt VTBarX4hoyncMKJjVwAqhoghMVH zfHxbtoUxSd7gcVfsSRM2ULfjJ1 njrY0bPeP4NVuiG5mtfB3cZQj3I KihaWS6QOLndY7aEH9hwdycl2nc ZBvbEBckCTIvojC8evF1HCLgaTM uR2MamL6eMYBqMN7lduore3tbOU Q9CQnfONDwEYP3CeYsJDSta7Mmv yw3RbIes7JabYIhOZyhN43gh410 YJViffSrW4cutGSlgylbyUEpigb hVBrziqH6AXUpSZAiWNacZTKkNM ZzMjBcbGFuZzEwMzNcaGljaFxmM YzfXvTjJEWbJLvbQ2alWcUuD3Vg TEXfFbPifHViUCnekNC8FAFePDJ ys04foDj8VISkqgakn9EzJGEolU PlbBVwbF8tabGgp7chVESzPIKbQ GZeL0GhSZD7xQDxAFZniPJgkJG9 NM0kyoSvZS8aASWfBwfxlsIkdED ukbBwFURfWOcxh3uzXI8fUQOzeI aajF0aiUA4XPJhk6pwvMZrlLYto 7llj4NzdpVkODlaTBWqRHxdAGDs NQMuCL6qJRQeuTTliiVkk2W8Gje hpCAnputvMjrpovW6JBkbkzhyZL QfBUfqD9whBwOyBGBqlWllRrtbw 4LkTKEsERGuVntepKJadU3= Clinical Layne Carvalho is a 72 Information (test year old code = [id number]) femaleDiverticulitis large intestine w/o perforation or abscess w/bleeding [K57.33] Gross Description i6uqrGUzNGQrcVLiDYLnP3hjgaD (test code = fGTYgtPIwL7MrgtaeKGzjIO5vQE [id number]) 2bvSpjdYFcpCPgXUUnBuYtz8lvh 017qYEyc3hkWNIIdoaynAj8bDib Y21xe6G6GrseL69qzIPbZAL4LNC vWHXnjPYbEGVwVBJ8MJHjiZEbR9 ggRYDmEV2treekEVneCTgbUHMhf QS9VJFikURnB0YrYNAmJYgcJWXp qts3DkIqUg0caDAtbOloKByhBws frSjby2TakUTaAPedEIKcJZWtHW dsylwcQFc3YROlVIcsyUSxWN4ye LyuAigpyEiem4WlbFOmKMwuKUVg HSMpKBvhNBBqM2KRNRIeHzk0BZs 3LDZiVLa0INziE2BVBIEnZVMhSt Y9OFCsZtT0OTx8YMMAWr9iIJO5G ZB5JGjbSQQ8PIHwPLBlYYEkBzFg XGZsIFxcZiBBcmlhbCBcXGZzIDE gPSsfwzN2UZOclnOkwRslbT5xRb JqURXLUWHUGI4XRkOBOQYqogejv zIyIFNwZWNpbWVuIEEgaXMgcmVj AKc7ZGKfkA6gIt7oqGBrzX5xyWQ lASqmBMLdi7b3jFQ2tWRwwQG4aP WiuIcyAuQgSO2eoROzEXFKLN97l OGqraPcKJVhZYAzZTFkiuYko0Uo jmYbBMZwV23nxLPbI43ki55oUCF pJ21ldBXoM25eb62hGKT5vYTtdV BuodPwjEX5ETafT5V7MEhsGQWmy nFjK07nb1vwkMUch3ZzLEX4RU8d mQqyexYoIYDlVKWsb2innUIgABn nQQ46IEnlEv20OIYjZXhxHXmohb z3xITwgCLdUbAaNo26XDVmPWwzS UQrLK6ypDZqIB6uLJKhFVBoEDid FYBak2GpnWBnVYT9TBStVZ9qAAA is0ndxqT3tR3wSXFdf1SceA2bUB VfIVHdFSPny7PmjQVcwtFzKCUmU NOrFIOmt4HoVTPbzUs7B2ryJRSw KUJjU2Diq3m5nSGrkIEhj0WeZLa dTfX1SX9xaVSurN57VJN2nWOumT HiOABuPYRxhXBmtm5nWTWcBBIlc p54mC9kmGSlTXQqxQ2zKM1oZWGm AuClE52bZnBmkME5hOHwDYspqUW jWO8ybkpiox0rYWQeVBIkfLKigN 7myfKcjsJcfBRjFRRobN9uutC3B MTnVLRwlIK9YO24XRn2oEHzYRQf vYwaINQ7kAXxYGVpsylvZwUho63 jHs4lnZCvLZDlW3CqKN6jeWKbkF QjZeKdLVqxCT57R99vLILghlKce QD9zHHuZGMwEHGgxzlgePTzAFZg PWRuaex2wIFzNBUqmCGmKI1hVUx sFGOfkRIdx4OuyHSbYo0fJP96hC RpcGxlIGRpdmVydGljdWxhLCAxI C1xKVmftQBgPPfrHSLuoUbsMFJ0 cEAyXNCsurjaLuPew79sJuduX1b jOsSoHQunpQE1ZUQbLSsfYSZVux PeZCSiVRzoDKryq5TtzZxtdREbs jRtQrqzWH5oRYCpqDTdd1JivQW6 eXXcTJFyS5Lpl92lUUNbTTDugKQ dkVR5VOUxkR8nMNObYYMgLTmmml UpsTqqULHSDGT1xG0lZYRnSFS1O MouqtIeTFQ8TKGcp7PcjVJiWGWu uT1kYEWsTUJpX6QfGOAidVebJTw 8WIekefDnMDV6RAApt8phcDJoED 5ycgihcrqlAG6gQbBgOBtbEZ04a ESddKoklBMkCHWuIkUHtOK5emBp INDoQzScoMxtcuTvnvPeDF12WMO jljQyuGReARP7SmANyKAezsEbU7 PnDUGpzCdvHXFzn9o4wNEjPHBqZ TJad6rjUNLqT2QzGE2ryMKmuQJx FNGycoPVVFafTIr1XNZ5vTN1fPI aNWJykLUzl5GbsFS3oVNbXTYnyc IELlfqONYxt7NyKNDaJPGzRSOdt jDknSn5UDbplT0sLISucoUPmLov KHYTU7nqbJFiDRxvBWZUZEdEL0F HKJfpHSMjT6ChJ8NogmW7z9emmP msi6EozCTyMJ8udYIbuU== Disclaimer (test i2zgiYJeUYIyx9koIRCiwBNqVcO code = [id number]) wMzNcZnRuYmpcdWMxIHtccnRmMV zga6PmY1HfBsUjCOkozdMcTQXyG neuudeoPBIhSAH6tyKtHRRyCXff NFFfUDnmJf2tfEKbtWdcRbFxJMH jg5zhsnJALYugEyTkR449OCMjJL bps4yyb0XeMCPklMLgr1S6PTPLc wfzyIo0dYueJ50nn0H5KjozG6lh KHIhUKIxH2LgGR6cMUQcHpv1XQW 7VYO4DJMlNWMcV5QzWK9zBAUhmJ FiDRt5o7ajwBwpCTCeFIH6s6ckN RlirpFfYU1dec9ksWc4g6tuhlFb PRIdVXNmhNTGZCEbE4DckRltDe4 jwGj2qFcdZgmsVRG9Tyt7QS7hdm 26fmj2kYrtOLJhnobaMpO1QNgmO MQltybcLPg5CJoaEROeaHK6HGLp jFUjI9EiAFVhBJ2qneo9FSX5TQi pKTUiAgH9QDTuxGYqTNKhzIwbSF bbc870ZNF1EvUxSU9oG4Azz5Q6z S6kfOFaOMZvnRQxZwTkSVFcij4p kHElLLbkk2ReDFQ6nkZ7vNHmvZE dBDHwXX77Cmrnl5InVtkha9PcX6 5hjFT8XDqel7ygBR6uDkS7saPcL Ivhl3ipoS3wJzM8LOasBK5sRL4e VQTfhO9fnytwCMSfUoZesfhnISN ktXzazqMiIx9ikDpyFHT0LFdlM2 aedB2zTcK2VXplW3oceI7xDRd3Y LoyvOB3JADgyR0cCX6jkunmk9zf PUzzKXeqGGQmmdL2twC5IKPtrLZ yV1OwcO2bRTGcWC7olfmjb9xgHK V1TOcvJYMfWSK8BlNtGWNjs6Tsw jh3DiRzr3TxeOXlXPwrF14lf170 FEPuilYyT6yuzDTkrvouxYQokag rRChvsuV2WBXtkfMfk3WeQTZlEM R8MRskVOzuvZZgGOXvhEwqp4ehO 3RscGFyXHBsYWluXGYxXGZzMjBc bGFuZzEwMzNcaGljaFxmMVxkYmN aGTXxFLbsY4vfPpKdZ2UjWKJySd ArfUXnK1yjLAmhmdBfMCRtuoPxl HZ1CEumN7z7YPNytrTuaJz9lmVz EtVbIDJtHOO0WUhsxRGkGSUrg8Z rbatooKBwHi1bsLNtERYqzU1oIN LpZFLdUFwiEI7uiZz7ZRQCgOXjv HGcLrLZVNRvFW45bvWuNVAWqora x4T8QWnzHAWbe0VroWDsL6qrg3J aJESws95kHC5mn3K9n0rrGLZ9IA 8hi2ZqNRNxqPWjrUGwFUOlh2Kvx cpjz8NbIRNllgGde7ApNAMofvWy gTGjPYRqnoZlhf6mpkDaYSJySHC gA3OpqjjpjDaykcErHARizz8iic TxLDH8SPXVVGZjFHIea5GadY0tw GDJYZS2nAMfsx6pxlXYsYFgLTOw nz95PPEnSB4cD0ndEATaVPMrwzA wuYMmo8AkDUInrFN4zETyKX4HDn BTs06mXTAdKSALzjWgZIEdaPzuv TZ7zdW2aK5pNUaQSVWzIlw+IFRo YFZZNUCjYK5debJov7MevuCaiNl pFGZhfWJtk8VroCImz1VboVocx1 ZyjENxtQAkLL1iUUMxwnqwUCXdE UZWVzYOUTOpeaO1t7ScOCSwOZZe VIO8iAdqcsw7ZEFjlF9sQPOxC1e hbwizEGxgYHTxc6HyvX9jlOAPkO Reb9ZlxQLlhHFXxSNcND3ymfInI MeCTQyXVRG8eyJjUWZxa5IaOZtk K3tuD73ulNdkeLa3eGE5GWB6kZ2 nLlx+IFxwYXJccGFyIEFwcHJvcH CzSPHzyGgcabEyO1ZhhqHtuJ2qb YOwheIvFV9iHI0qJ6S0eVFnVOHl anUis8euTTryqxMbLsOvhiLdDAM wFRflBOWbk5XmLTinBDW3XJomny BpbmNsdWRpbmcgSCZFLCBTcGVja ZDaBIE0XRgxcfPyifYrRS2xaB3a uXyqfH7zzSByaRU6wvuhATBvKJS lvEouWQFiLT8ytRBtLAZrxnCXbU nnnGMbzU0aL7HeUMXwFIXemd2wT QUkyJ2wSUpok0QxczdmXHFdYBEg ZFFweuXbak0nKBZslTXHYM7GAOn onXUcl4ObacFhR5tNLTE8SMMpMy UrCbvuYCTkpAJacHXtDLEydh71C VXarL1vvDdrLCFhkP0nvJ5idGrc oC2fKpTkAcEwYUxoVG7tNRWhA2j nnVZeOZZbSJHfW8vgNbSrpK8ppR ibBQaxRqYdLzAfWJhcJMU4tE== Embedded Images (test code = 8104822327) [facility] [id number] 18:57:43 Test Item Value Reference Range Interpretation Comments Case Report (test Surgical Pathology ? code = [id number]) ?Case: [id number] ? Authorizing Provider: ?Ernst Hopkins MD ?Collected: ? 04/27/20222018 ?Ordering Location: ? ? [facility] ? ? Received: ?04/27/2022 2155 ? Center ? Pathologist: ? Gary Gupta MD PhD ?Specimen: ? ?LARGE INTESTINE, SIGMOID COLON, sigmoid colon, stitch is distal ? Final Diagnosis h7gadVImJRMkk8ogISHdpPEiZeB (test code = wMzNcZnRuYmpcdWMxIHtccnRmMV [id number]) dlaKwlXWIxJVPqKK6daRohwEo3a RzpIZUmraW8eOKfZWnhs7oaWBQ3 n6ttfssjECPzHWsySv3uzCSobLs gUuRlXZDsACn8sQ45TDXbuU0siP LnHWg2MIPmrIViglMtZuXpCRQgu WKbdLS4EYFbGF8oczmbSCfgDDsi LXJfljN4DPVlfUDkM3YbWCIfNL0 tngysZYT5GFdpILWdCRL4WnFgLQ Ubp8Uzebc6AfVmaXLuYMpbpRNpd lxmczIwXHBhciBBLiBMQVJHRSBJ HoPXF9SFIeAsJCZYG45PRFPbK85 UP12bJPZQJ9OCIFeOKsfxcUVlQJ AgICAtIERJVkVSVElDVUxJVElTI IoUWAtrT7CUM9NSTMxQNKMxhoSw AMJhEPAZHASLT2PQF93iCIEZM4d OUyBBUkUgVklBQkxFXHBhclxwYX JcZnMyMiBKdWFuIENhcmxvcyBBb EMqhtT8LW7vezPlbzxrULTuNYRs EqL1QxSgEdYdUWN7NvRoBL3tyEN pFAJiLgOoVLviAJD7s5rfoQXmSV QwaYNiZmBoPLQtWVOof4nfRCSas GFuZzEwMzNcZnRuYmpcdWMxXGRl WxVaf5lky173nEWjs8jlFZWiHtC 6sEBvNIYmkYlozph5eUchQtReHM Qtz2bsohUdXpNsJHKxWLRrTCLbq BYaD213VPWlFEdvh2kwi1WdAEUl oDEoz3P3ETJDEVvmLcZdX596c5t nd6myvvClgBC6XUZlRXK9PDwuym XjyyT9BJacvIOxNzW6BBtrtxGvG JwiiwXsofGmGan9TPOxY142NSC0 dPmjq3qzAUN2UQOyKTNpRzeaQq9 yxXMfN456KHLhQJYLSCAuzIp0AE ZvxkWfmsEcfNXEc344Y560h4zcM XZlcaBwkEtXyenqz0udI985IPMu vAHotbYwVlLwIXIqbXSfiSB0PFB dYV7anmdgWFwhQTmfMYYsbpC3TS RgaWSxO1VxSCOiNO2znabnQXB9P HgnQKRiRXY8UzNvMNYde9Vtqfz0 SaWdtd0gko42IMQ5c3HytXtgTUO 8FNL9HcZcYp5mrHZwBDTeFK2zHi KozMKoCSOydi95tQfrDUuqtpAcr H6dRaEdILSkoZUkJVCwJC1okFFu RSIstL1kzarlWPSaMuRvcfvxTUX nuOzsulEaBl2ckBrfEZF1ERplT7 bxtP6oViL6JFehN2hmnJ8aYGj6G EoocCD1XFOvjT6bFH3gisicj9xh LEagAPxcXKVgecX8gkJ7SAWloBH dH6RfwD8kONKpUA3chkjrk9buYX S5BLdqDCXpHHK6ZwGiSFHqb2Wmb to7SmMnt5YtcVUzJCobA03pv672 AZUeyySnI3jjhDOijqmojXDkzmz dEIrpvyM7HTZnTPHaIOggZGRmGP ZzMjBcbGFuZzEwMzNcaGljaFxmM ZvsWkCqICKqODadG1kdZnAlF9Xr WSJnMvOawQQjYDryvPI6AMLjXJV gm80yaVt6ETHlbdxxc0YnRTHglL LjlGBybI5ljrNcw5htRXBlGVEyZ WWnG7AjYKT4uKUiVSLqnZDcmHK5 SR2wymAaSM6gRVLoOkczboYpoTK jcvJiZWTpUXqkw6tyVA0pUMBjbR goxK5ruQW6VTBmy3orvCKguOOtp 4uyc5EbicUdBJisNEKsNBfsPGKp NRWzNV7fAMJgbXVhjdAmg3D3Ioh fjYAfacaeGwtalwZ3YMcoprxdRH LaUPahN3uoTtMpFMBasHhiOwayg 4JtMSWvHILpAqtljMHjzU2= Clinical Layne Aguilare Beryl is a 72 Information (test year old code = [id number]) femaleDiverticulitis large intestine w/o perforation or abscess w/bleeding [K57.33] Gross Description m1kmhKPbJATntRGcQPNbM1mfpxU (test code = nERUxyGLdF4NwxrveSNltFJ6tAN [id number]) 7swIvckLVgqNOsSWPpGvEhs2sza 179vTKiy1xsBRSEbdhxaMr2sKqj S47tw0U3JkmbI33jbPUfEHI3NGX hYPEcmZSfMOAdSES2YUVfhZJmL0 dpDBMjAX8xgvplXFmvLJyvYJFbe DP9DJTadBApZ1OwGDEnFEluOLAo tmd7DvGsKg1sgNPpxRhkDVubStn tdGaps2JgsBWhFBcuYSKvNCFaAR uwshaoACk7RYAhQQereMFlHG2ab YnfXdyuvLdns6OppOTzNAdlVBWl UOOfIYhjBBRuB3PDIZEdPhc4JMp 9QNItHFf6TOdvH9AHTNOcTVHuHu N0IAMvBzC8DGd1THKYCw8uYSU2B TX1QUjgHQV9HAZpUFTqBVOaDbMu XGZsIFxcZiBBcmlhbCBcXGZzIDE oCOtadiK8SJPozdWtrHofaK8uLz DeLVNICCMQDU2SBbKNVNCkfrpfj zIyIFNwZWNpbWVuIEEgaXMgcmVj PNg8ACCruZ9oZu9peEIqlM8raJE eZHfpGNOoc9r6cDI5vFIaaDZ9aI XscUtyIvErFQ2ezPKyDUDEHA79g YWkpcLePCMfVLDdFUIxugTat2Wp xbCqQPMdN80zlDNiI31lb16fFEN iB94thVDlD04ro06kCKA9oJZofF UwhyDacCO9OPxaE7C9GUmrXUTbf pMaW59qc2yfaGKdm0KvVRN8UZ4w dWrwwqZxSHZyDRAcb9gqrRVuFVx cMF48VUpjWn19WBQzRVlsVHkwyl w1zSRfvLNxVlLcCw76CKLlPZbcP AEfFS7llLBaCT3uVJQjSOYbDGwc ZDNem8RdhUPrGFD7OZXuOL9mRZS jy7lggeM9hA5qLSTtq4NtbW7pYO YrDCRhUWKsa0RspIMnrvDaBUQfQ QQhBMRiz3QcPHTgcZh4T0njZRVk HAHfY3Huu1z4nWGoqORrm7VpCPe nZxZ6MO5xmJEbuU89CBY4fRMgmT SvPAKdJPJjeODekk1tNEIvEDElo a24xU0qlBJfPDKgcZ2tXA5tOLNp YxJoE73mUhFxvJB7kXJlLUdqbXW qHT9zqytmcg2tXDWlFDTwxGMbyJ 3mvpDjttMddVTfENMubR3qapX3P QDvHUUdlIS0AF80BBj3aGDtOSQi fFpuMMQ2lWPkKAHhqldlMmIhy53 sVb8zhQOaIKQbG7LtOQ5luVBgoN YoUqWfCGslQH60A53xOCJcjmBwg PZ2uLElKXBjUIJwcebnkXNiXMHt OTQsodc1vTChLUFtnGCrWJ0ySPf gEJWznIYpl2CimJSgJy1yMZ05xW RpcGxlIGRpdmVydGljdWxhLCAxI X8iBDqglQMqSVrcQFYqzUsoWVY2 oUBaJRMlkpgtYyZcj36vEchmX4c jLjYuKIydxUX4OLStQTcjYGCRgt MaISJjPSamMJhaz5YevPasxKMwy bBhLgivMW3zHBGaxGHpv3JhyLT2 jJJnFDJoB1Zjq87fTVFjYPNzmPQ czJL3OIQlfR7kQQXeVEFwGPzdky FutDncEVOCHHR0fA4sBUXpWUI1V DacsiMvLFP1NLUex7FtbRKtWGJe kG7mFLPyTYKsI1DeJNWvqTipDEm 9WHddnpJmBDN7UIYfw7tmpTCpDC 4vzpyqdqedSS2qJfEvVAbcYS00w ASstIqevGJuHGXcOtRWvFF9kgGp UXDbVhJvzBemsrRghkUjZM27LBN xduUiqHJsQNG8QnCLfIEntoSwA3 WaYGGwhHcxJHMcg0t7cHWdUSXdN KGyq2eqKBJhF4RuPI4lvZWgjJOc UVZexaLGLRfiGZs3IDR0yYV0eIN pFZWotXSzw1ZhrDW1mVAbYLXqzm EDYgejDYFio7MfWGWmRLBaNZDmz tEzdVk7PJoqgV2mGMWehhGCmMsd TOKXC0nwrEQcDDmcOPSKXOuFS3K BMYkbCXLbE9BoP1SbbjT0x6pjbX moa1YgtAEqEY3qaCEegY== Disclaimer (test y4fxuXFrLVGqt0feWDWnsGXeHqG code = [id number]) wMzNcZnRuYmpcdWMxIHtccnRmMV zso8ItH3NvUeFcMCqfknDiACIdW izwedakLOEgUGC7jaAuSFJdVNoj TUXkSDhnUa2ogPPdnOvpYoBdWIU lm3pxsvEFSUfzMuHmZ922EGPpDH dyl7bjy4RgTVXxuHLul2R1QHWKh okgaBo8pKolQ41ti9Z0MsmxU4dc LRAcBGReO5GvWM5yBIYgMch2DBL 1HWC7WULjVUDnT6RhKV8jBWJdcP JlPSq2g7diuEkcHSNgVYD7s0vgX FrhgcFvGD6ayb2bhQj3k8pysvJg FZLlVAJlfFAQLMGnB7RmyVbqKa7 omPc7wDcbEthrYQG2Ota2HB4jaj 20ojp2qMdqSKCexmmsQiW0MIkmL HDravizBEq5DUelUIAixYG7CDKs jFSaQ6GjGYFoAH1thqv5CGD6FXv sXTUiLuT6JCDpeBRtJJDddUumAS lqb740VRS1PfWsGD2nE6Vua8H6q J6zmCDjANGvhIYyAaAlYOOzhw7r sETsNKbpk1EzQVW0qnG3lCKhfJE dFYPrGO38Xqtkz8QzLndpb6DrX2 4hoHG8JVoxf1gpZM6lTgB7gmPbF Pjfr3eluN6yAyX6XKxeGK4yGG1k JBCljG0ixxbnNQMaGfAjzntsUBJ vsXzgorMqDr6ogBydFEH7EVypY2 eoyG8mCdH2BMdqQ0accA0xKKa2T EinsPS3WGKlvF6vRW9gnvooo9zb PTacAOmeYMEkxvV6doI1MUGzhOK gO0OlwA3oXHRyNJ3cfeecc0mxFF X9AHkcUEBdGUE5VsAkWIRnc8Pop vl7DqHjp9NlbPZrREzvA98by160 VLSlbuBtR8hejYUvzmlpeQXbyki kCZfdffX0OMTyshXeh5HrYNZfPX O2JAzeJDadsFCjPXNquLblg1kcJ 3RscGFyXHBsYWluXGYxXGZzMjBc bGFuZzEwMzNcaGljaFxmMVxkYmN tNDFnVVqxF6tuWoNbB9LlABDvIn GbzDDuR5kzHHcczaFsGIFgjvEcx DO2PVryH2d7VEVnsfZsjJy7dgNf ZmHkBNFcMQB6GIqrgMLlYXZrt4S tkeerdRErPw4sfAZwMSNemX6dHF YbZBHaZSrrJA6skVe5CAOMgAEsr EUtYwYSTEZxMQ28mrBnHOOJbjsy z4B9TIxyNEZqh0SdkXLcX4bmp3M dQNEtx26qYA7kc3F2x9tvPXH9BF 2ut8CrZYCsmIFupPRuQRVkd4Vit ohyk0DeGXLrgdOjp0KrISQnrrGs uKKwRWUmykHmiz6coyEnWJDdOTH aN2LszljkaFwuebPdKJVsws3cih UoUHC4BGQTCDKrBDBho3NhfM6cy HEXFWI9bAUvpz2bgkKEeFUnZBGc tg78KQKsLX0xG2nrHEFkOKWiknG pdJIro0RbPDPgxXC9yYBnBW2QHx SYv20aRZGePXCVktYjOTHifPzqf JW4klT5fI1fQFvVAKGsYyj+IFRo YSTFCZRlKY8rltBkp4VbnvNjtEl uVHJnaFTiq3GeyPIjn3CdkOzen8 PejOAavSPzZC5bEGAcmwglMKDeZ OCBLhYIWPYniaS8j8OzPSUqATLx SPN2fPbnzpg4LYUyaK3mMCPfC5e trbvjZEkqYMGtc1TfxJ9tlANEfU Vuf9BpeTYzkDKFrEIrGZ4ltgWmG PnBBNxWQOW7urSmQTJpn8NwYHod X6otC48xbBhywYe6zRD5PEK2dY5 nLlx+IFxwYXJccGFyIEFwcHJvcH SdBRPliNtsljDdA6MpbjImaZ4ku WNhgtYlGQ3nTP4vN1R3oAZoVNXe wmKmx1imAFjpdiZpTxXnwzPnOEX cISinVFSxe8MjLIndERY8CEdafj BpbmNsdWRpbmcgSCZFLCBTcGVja LJtYGT1NChdinUbgoYkOO6ivX7a wPkqlG3tbFOlaFS6mlukYKBuBOX nwHbwVRBdNC5mlOIyZUSgceQHeF xvdVMtiB7uH4ZpDIRbELPrkh5vH EIjjA7vFHdsz7UsibynMAAdGHVk FXLkjoNkaf0qYBPvfFHKYJ0DUOn seFOem1NpbjFdN4hJIDB5GHUoKc LuFxfoZLEinXRxeSTvZCPjvg61U UNdwS3stBzmFWCxeB4xxE9tpRmt sB5mOpVoMeRwABktYY9dKFAcJ3t guHQbSJZwLVHaA4stMnEvqL2hwK woSHosPbLdLuArPGzpZGR3xE== Embedded Images (test code = 1360337380) [facility] Test Item Value Reference Range Interpretation Comments PHOSPHORUS (test code = 7640453841) 2.3 mg/dL 2.5-5.0 L Lab Interpretation (test code = Abnormal 07700-6) [facility] Test Item Value Reference Range Interpretation Comments MAGNESIUM (test code = 4232059788) 2.2 mg/dL 1.7-2.4 Lab Interpretation (test code = Normal 64689-2) [facility] (NA, K, CL, CO2, GLUCOSE, BUN, CREATININE, CA)2022-04-30 10:30:04 Test Item Value Reference Range Interpretation Comments NA (test code = 136 mmol/L 135-145 9932519208) K (test code = 3.1 mmol/L 3.5-5.0 L 7435223442) CL (test code = 111 mmol/L 98-108 H 0484363292) CO2 TOTAL (test code = 23 mmol/L 23-31 4776941391) AGAP (test code = 2-16 1993724029) BUN (test code = 8 mg/dL 7-23 8127202309) GLUCOSE (test code = 78 mg/dL 70-110 4585514397) CREATININE (test code = 0.41 mg/dL 0.50-1.04 L 8695105891) CALCIUM (test code = 7.4 mg/dL 8.6-10.6 L 6622326980) eGFR (test code = mL/min/1.73m2 0031929336) PARISH (test code = PARISH) Association of Glomerular Filtration Rate (GFR) and Staging of Kidney Disease* + --+ --+ ------+| GFR (mL/min/1.73 m2) ?| With Kidney Damage ?| ?Without Kidney Damage+ --------+ --------+ +| ?>90 ?| ?Stage one ?| ? Normal ?+ ---+ ---+ -------+| ?60-89 ?| ?Stage two ?| ? Decreased GFR ? + --+ --+ ------+| ?30-59 ?| ?Stage three ?| ? Stage three ? + --+ --+ ------+| ?15-29 ?| ?Stage four ? | ? Stage four ?+ ---+ ---+ -------+| ?<15 (or dialysis) ? ?| ?Stage five ? | ? Stage five ?+ ---+ ---+ -------+ *Each stage assumes the associated GFR level has been in effect for at least three months. ?Stages 1 to 5, with or without kidney disease, indicate chronic kidney disease. Notes: Determination of stages one and two (with eGFR >59mL/min/1.73 m2) requires estimation of kidney damage for at least three months as defined by structural or functional abnormalities of the kidney, manifested by either:Pathological abnormalities or Markers of kidney damage (including abnormalities in the composition of the blood or urine or abnormalities in imaging tests). Lab Interpretation Abnormal (test code = 74931-1) [facility] Test Item Value Reference Range Interpretation Comments PHOSPHORUS (test code = 4829819605) 2.3 mg/dL 2.5-5.0 L Lab Interpretation (test code = Abnormal 52813-8) [facility] Test Item Value Reference Range Interpretation Comments MAGNESIUM (test code = 2973378142) 2.2 mg/dL 1.7-2.4 Lab Interpretation (test code = Normal 52888-7) [facility] (NA, K, CL, CO2, GLUCOSE, BUN, CREATININE, CA)2022-04-30 10:30:04 Test Item Value Reference Range Interpretation Comments NA (test code = 136 mmol/L 135-145 2678535107) K (test code = 3.1 mmol/L 3.5-5.0 L 3791026246) CL (test code = 111 mmol/L 98-108 H 7861904598) CO2 TOTAL (test code = 23 mmol/L 23-31 6206755360) AGAP (test code = 2-16 3484865618) BUN (test code = 8 mg/dL 7-23 4694207110) GLUCOSE (test code = 78 mg/dL 70-110 4888950320) CREATININE (test code = 0.41 mg/dL 0.50-1.04 L 6628584609) CALCIUM (test code = 7.4 mg/dL 8.6-10.6 L 7544819618) eGFR (test code = mL/min/1.73m2 0757902112) PARISH (test code = PARISH) Association of Glomerular Filtration Rate (GFR) and Staging of Kidney Disease* + --+ --+ ------+| GFR (mL/min/1.73 m2) ?| With Kidney Damage ?| ?Without Kidney Damage+ --------+ --------+ +| ?>90 ?| ?Stage one ?| ? Normal ?+ ---+ ---+ -------+| ?60-89 ?| ?Stage two ?| ? Decreased GFR ? + --+ --+ ------+| ?30-59 ?| ?Stage three ?| ? Stage three ? + --+ --+ ------+| ?15-29 ?| ?Stage four ? | ? Stage four ?+ ---+ ---+ -------+| ?<15 (or dialysis) ? ?| ?Stage five ? | ? Stage five ?+ ---+ ---+ -------+ *Each stage assumes the associated GFR level has been in effect for at least three months. ?Stages 1 to 5, with or without kidney disease, indicate chronic kidney disease. Notes: Determination of stages one and two (with eGFR >59mL/min/1.73 m2) requires estimation of kidney damage for at least three months as defined by structural or functional abnormalities of the kidney, manifested by either:Pathological abnormalities or Markers of kidney damage (including abnormalities in the composition of the blood or urine or abnormalities in imaging tests). Lab Interpretation Abnormal (test code = 38308-9) [facility] Test Item Value Reference Range Interpretation Comments PHOSPHORUS (test code = 5666257421) 2.3 mg/dL 2.5-5.0 L Lab Interpretation (test code = Abnormal 43761-5) [facility] Test Item Value Reference Range Interpretation Comments MAGNESIUM (test code = 7278909327) 2.2 mg/dL 1.7-2.4 Lab Interpretation (test code = Normal 01117-7) [facility] (NA, K, CL, CO2, GLUCOSE, BUN, CREATININE, CA)2022-04-30 10:30:04 Test Item Value Reference Range Interpretation Comments NA (test code = 136 mmol/L 135-145 7211979949) K (test code = 3.1 mmol/L 3.5-5.0 L 4445334911) CL (test code = 111 mmol/L 98-108 H 1626254971) CO2 TOTAL (test code = 23 mmol/L 23-31 8064296049) AGAP (test code = 2-16 5255328313) BUN (test code = 8 mg/dL 7-23 9628767289) GLUCOSE (test code = 78 mg/dL 70-110 7028527646) CREATININE (test code = 0.41 mg/dL 0.50-1.04 L 0227603688) CALCIUM (test code = 7.4 mg/dL 8.6-10.6 L 7323557919) eGFR (test code = mL/min/1.73m2 4723524539) PARISH (test code = PARISH) Association of Glomerular Filtration Rate (GFR) and Staging of Kidney Disease* + --+ --+ ------+| GFR (mL/min/1.73 m2) ?| With Kidney Damage ?| ?Without Kidney Damage+ --------+ --------+ +| ?>90 ?| ?Stage one ?| ? Normal ?+ ---+ ---+ -------+| ?60-89 ?| ?Stage two ?| ? Decreased GFR ? + --+ --+ ------+| ?30-59 ?| ?Stage three ?| ? Stage three ? + --+ --+ ------+| ?15-29 ?| ?Stage four ? | ? Stage four ?+ ---+ ---+ -------+| ?<15 (or dialysis) ? ?| ?Stage five ? | ? Stage five ?+ ---+ ---+ -------+ *Each stage assumes the associated GFR level has been in effect for at least three months. ?Stages 1 to 5, with or without kidney disease, indicate chronic kidney disease. Notes: Determination of stages one and two (with eGFR >59mL/min/1.73 m2) requires estimation of kidney damage for at least three months as defined by structural or functional abnormalities of the kidney, manifested by either:Pathological abnormalities or Markers of kidney damage (including abnormalities in the composition of the blood or urine or abnormalities in imaging tests). Lab Interpretation Abnormal (test code = 29932-9) [facility] WITH [id number] 09:49:41 Test Item Value Reference Range Interpretation Comments WBC (test code = See_Comment H [Automated 1690-2) message] The system which generated this result transmit palma reference range : 4.30 - 11.10 10*3/?L. The reference range was not used to interpret this result as normal/abnormal . RBC (test code = See_Comment L [Automated 789-8) message] The system which generated this result transmit palma reference range : 3.93 - 5.25 10*6/?L. The reference range was not used to interpret this result as normal/abnormal . HGB (test code = 7.4 g/dL 11.6-15.0 L 718-7) HCT (test code = 22.2 % 35.7-45.2 L 4544-3) MCV (test code = 86.4 fL 80.6-95.5 787-2) MCH (test code = 28.8 pg 25.9-32.8 785-6) MCHC (test code = 33.3 g/dL 31.6-35.1 786-4) RDW-SD (test code = 52.5 fL 39.0-49.9 H 15482-6) RDW-CV (test code = 17.1 % 12.0-15.5 H 788-0) PLT (test code = See_Comment H [Automated 777-3) message] The system which generated this result transmit palma reference range : 166 - 358 10*3/ ?L. The reference range was not u sed to interpret th is result as normal/abnormal . MPV (test code = 10.2 fL 9.5-12.9 65597-6) NRBC/100 WBC (test See_Comment [Automat ed code = 4054167855) message] The system which generated this result transmit palma reference range : 0.0 - 10.0 /100 WBCs. The reference range was not used to interpret this result as normal/abnormal . NRBC x10^3 (test code See_Comment [Auto mated = 9182075452) message] The system which generated this result transmit palma reference range : 10*3/?L. The reference range was not used to interpret this result as normal/abnormal . GRAN MAT (NEUT) % 80.6 % (test code = 770-8) IMM GRAN % (test code 0.40 % = 5228079956) LYMPH % (test code = 10.0 % 736-9) MONO % (test code = 6.9 % 5905-5) EOS % (test code = 2.0 % 713-8) BASO % (test code = 0.1 % 706-2) GRAN MAT x10^3(ANC) 14.40 10*3/uL 1.88-7.09 H (test code = 6371417767) IMM GRAN x10^3 (test 0.08 10*3/uL 0.00-0.06 H code = 4228751571) LYMPH x10^3 (test code 1.79 10*3/uL 1.32-3.29 = 731-0) MONO x10^3 (test code 1.24 10*3/uL 0.33-0.92 H = 742-7) EOS x10^3 (test code = 0.36 10*3/uL 0.03-0.39 711-2) BASO x10^3 (test code 0.01-0.07 = 704-7) Lab Interpretation Abnormal (test code = 50897-0) [facility] WITH [id number] 09:49:41 Test Item Value Reference Range Interpretation Comments WBC (test code = See_Comment H [Automated 6690-2) message] The system which generated this result transmit palma reference range : 4.30 - 11.10 10*3/?L. The reference range was not used to interpret this result as normal/abnormal . RBC (test code = See_Comment L [Automated 789-8) message] The system which generated this result transmit palma reference range : 3.93 - 5.25 10*6/?L. The reference range was not used to interpret this result as normal/abnormal . HGB (test code = 7.4 g/dL 11.6-15.0 L 718-7) HCT (test code = 22.2 % 35.7-45.2 L 4544-3) MCV (test code = 86.4 fL 80.6-95.5 787-2) MCH (test code = 28.8 pg 25.9-32.8 785-6) MCHC (test code = 33.3 g/dL 31.6-35.1 786-4) RDW-SD (test code = 52.5 fL 39.0-49.9 H 76803-9) RDW-CV (test code = 17.1 % 12.0-15.5 H 788-0) PLT (test code = See_Comment H [Automated 777-3) message] The system which generated this result transmit palma reference range : 166 - 358 10*3/ ?L. The reference range was not u sed to interpret th is result as normal/abnormal . MPV (test code = 10.2 fL 9.5-12.9 91700-2) NRBC/100 WBC (test See_Comment [Automat ed code = 4694909467) message] The system which generated this result transmit palma reference range : 0.0 - 10.0 /100 WBCs. The reference range was not used to interpret this result as normal/abnormal . NRBC x10^3 (test code See_Comment [Auto mated = 3779866830) message] The system which generated this result transmit palma reference range : 10*3/?L. The reference range was not used to interpret this result as normal/abnormal . GRAN MAT (NEUT) % 80.6 % (test code = 770-8) IMM GRAN % (test code 0.40 % = 5454447858) LYMPH % (test code = 10.0 % 736-9) MONO % (test code = 6.9 % 5905-5) EOS % (test code = 2.0 % 713-8) BASO % (test code = 0.1 % 706-2) GRAN MAT x10^3(ANC) 14.40 10*3/uL 1.88-7.09 H (test code = 2179924809) IMM GRAN x10^3 (test 0.08 10*3/uL 0.00-0.06 H code = 0175986483) LYMPH x10^3 (test code 1.79 10*3/uL 1.32-3.29 = 731-0) MONO x10^3 (test code 1.24 10*3/uL 0.33-0.92 H = 742-7) EOS x10^3 (test code = 0.36 10*3/uL 0.03-0.39 711-2) BASO x10^3 (test code 0.01-0.07 = 704-7) Lab Interpretation Abnormal (test code = 63013-8) [facility] WITH [id number] 09:49:41 Test Item Value Reference Range Interpretation Comments WBC (test code = See_Comment H [Automated 6590-2) message] The system which generated this result transmit palma reference range : 4.30 - 11.10 10*3/?L. The reference range was not used to interpret this result as normal/abnormal . RBC (test code = See_Comment L [Automated 439-8) message] The system which generated this result transmit palma reference range : 3.93 - 5.25 10*6/?L. The reference range was not used to interpret this result as normal/abnormal . HGB (test code = 7.4 g/dL 11.6-15.0 L 718-7) HCT (test code = 22.2 % 35.7-45.2 L 4544-3) MCV (test code = 86.4 fL 80.6-95.5 787-2) MCH (test code = 28.8 pg 25.9-32.8 785-6) MCHC (test code = 33.3 g/dL 31.6-35.1 786-4) RDW-SD (test code = 52.5 fL 39.0-49.9 H 78251-9) RDW-CV (test code = 17.1 % 12.0-15.5 H 788-0) PLT (test code = See_Comment H [Automated 777-3) message] The system which generated this result transmit palma reference range : 166 - 358 10*3/ ?L. The reference range was not u sed to interpret th is result as normal/abnormal . MPV (test code = 10.2 fL 9.5-12.9 11976-2) NRBC/100 WBC (test See_Comment [Automat ed code = 0880374818) message] The system which generated this result transmit palma reference range : 0.0 - 10.0 /100 WBCs. The reference range was not used to interpret this result as normal/abnormal . NRBC x10^3 (test code See_Comment [Auto mated = 1203343415) message] The system which generated this result transmit palma reference range : 10*3/?L. The reference range was not used to interpret this result as normal/abnormal . GRAN MAT (NEUT) % 80.6 % (test code = 770-8) IMM GRAN % (test code 0.40 % = 4171210863) LYMPH % (test code = 10.0 % 736-9) MONO % (test code = 6.9 % 5905-5) EOS % (test code = 2.0 % 713-8) BASO % (test code = 0.1 % 706-2) GRAN MAT x10^3(ANC) 14.40 10*3/uL 1.88-7.09 H (test code = 3907256502) IMM GRAN x10^3 (test 0.08 10*3/uL 0.00-0.06 H code = 9255297758) LYMPH x10^3 (test code 1.79 10*3/uL 1.32-3.29 = 731-0) MONO x10^3 (test code 1.24 10*3/uL 0.33-0.92 H = 742-7) EOS x10^3 (test code = 0.36 10*3/uL 0.03-0.39 711-2) BASO x10^3 (test code 0.01-0.07 = 704-7) Lab Interpretation Abnormal (test code = 93965-5) [facility] GLUCOSE (AUTOMATED)2022-04-30 04:51:04 Test Item Value Reference Range Interpretation Comments POCT GLU (test code = 4601207992) 71 mg/dL 70-110 Lab Interpretation (test code = Normal 91246-6) [facility] GLUCOSE (AUTOMATED)2022-04-30 04:51:04 Test Item Value Reference Range Interpretation Comments POCT GLU (test code = 8669990180) 71 mg/dL 70-110 Lab Interpretation (test code = Normal 06805-7) [facility] GLUCOSE (AUTOMATED)2022-04-30 04:51:04 Test Item Value Reference Range Interpretation Comments POCT GLU (test code = 4195663379) 71 mg/dL 70-110 Lab Interpretation (test code = Normal 23785-2) [facility] GLUCOSE (AUTOMATED)2022-04-30 01:35:46 Test Item Value Reference Range Interpretation Comments POCT GLU (test code = 4649640948) 73 mg/dL 70-110 Lab Interpretation (test code = Normal 34679-4) [facility] GLUCOSE (AUTOMATED)2022-04-30 01:35:46 Test Item Value Reference Range Interpretation Comments POCT GLU (test code = 8490526746) 73 mg/dL 70-110 Lab Interpretation (test code = Normal 74189-4) [facility] GLUCOSE (AUTOMATED)2022-04-30 01:35:46 Test Item Value Reference Range Interpretation Comments POCT GLU (test code = 2639457626) 73 mg/dL 70-110 Lab Interpretation (test code = Normal 32051-9) [facility] GLUCOSE (AUTOMATED)2022-04-29 23:02:28 Test Item Value Reference Range Interpretation Comments POCT GLU (test code = 2111433078) 78 mg/dL 70-110 Lab Interpretation (test code = Normal 24820-0) [facility] GLUCOSE (AUTOMATED)2022-04-29 23:02:28 Test Item Value Reference Range Interpretation Comments POCT GLU (test code = 4989147993) 78 mg/dL 70-110 Lab Interpretation (test code = Normal 98663-3) [facility] GLUCOSE (AUTOMATED)2022-04-29 23:02:28 Test Item Value Reference Range Interpretation Comments POCT GLU (test code = 9493643114) 78 mg/dL 70-110 Lab Interpretation (test code = Normal 80873-5) [facility] Test Item Value Reference Range Interpretation Comments PHOSPHORUS (test code = 1110004346) 2.4 mg/dL 2.5-5.0 L Lab Interpretation (test code = Abnormal 33889-9) [facility]54 Test Item Value Reference Range Interpretation Comments PHOSPHORUS (test code = 4550102323) 2.4 mg/dL 2.5-5.0 L Lab Interpretation (test code = Abnormal 63840-9) [facility]:54 Test Item Value Reference Range Interpretation Comments PHOSPHORUS (test code = 7221927614) 2.4 mg/dL 2.5-5.0 L Lab Interpretation (test code = Abnormal 90618-7) [facility] (NA, K, CL, CO2, GLUCOSE, BUN, CREATININE, CA)2022-04-29 20:34:53 Test Item Value Reference Range Interpretation Comments NA (test code = 133 mmol/L 135-145 L 6491975576) K (test code = 3.5 mmol/L 3.5-5.0 6531701129) CL (test code = 110 mmol/L 98-108 H 6483093667) CO2 TOTAL (test code = 21 mmol/L 23-31 L 0952022884) AGAP (test code = 2-16 5230391309) BUN (test code = 10 mg/dL 7-23 5057303444) GLUCOSE (test code = 61 mg/dL 70-110 L 1865482636) CREATININE (test code = 0.39 mg/dL 0.50-1.04 L 9170283890) CALCIUM (test code = 7.5 mg/dL 8.6-10.6 L 9902165347) eGFR (test code = mL/min/1.73m2 4500057795) PARISH (test code = PARISH) Association of Glomerular Filtration Rate (GFR) and Staging of Kidney Disease* + --+ --+ ------+| GFR (mL/min/1.73 m2) ?| With Kidney Damage ?| ?Without Kidney Damage+ --------+ --------+ +| ?>90 ?| ?Stage one ?| ? Normal ?+ ---+ ---+ -------+| ?60-89 ?| ?Stage two ?| ? Decreased GFR ? + --+ --+ ------+| ?30-59 ?| ?Stage three ?| ? Stage three ? + --+ --+ ------+| ?15-29 ?| ?Stage four ? | ? Stage four ?+ ---+ ---+ -------+| ?<15 (or dialysis) ? ?| ?Stage five ? | ? Stage five ?+ ---+ ---+ -------+ *Each stage assumes the associated GFR level has been in effect for at least three months. ?Stages 1 to 5, with or without kidney disease, indicate chronic kidney disease. Notes: Determination of stages one and two (with eGFR >59mL/min/1.73 m2) requires estimation of kidney damage for at least three months as defined by structural or functional abnormalities of the kidney, manifested by either:Pathological abnormalities or Markers of kidney damage (including abnormalities in the composition of the blood or urine or abnormalities in imaging tests). Lab Interpretation Abnormal (test code = 79163-6) [facility] Test Item Value Reference Range Interpretation Comments MAGNESIUM (test code = 1636173774) 1.7 mg/dL 1.7-2.4 Lab Interpretation (test code = Normal 64079-6) [facility] (NA, K, CL, CO2, GLUCOSE, BUN, CREATININE, CA)2022-04-29 20:34:53 Test Item Value Reference Range Interpretation Comments NA (test code = 133 mmol/L 135-145 L 5123068878) K (test code = 3.5 mmol/L 3.5-5.0 9525306658) CL (test code = 110 mmol/L 98-108 H 1627674888) CO2 TOTAL (test code = 21 mmol/L 23-31 L 2708253651) AGAP (test code = 2-16 2866736489) BUN (test code = 10 mg/dL 7-23 3132762127) GLUCOSE (test code = 61 mg/dL 70-110 L 2209742310) CREATININE (test code = 0.39 mg/dL 0.50-1.04 L 3297869547) CALCIUM (test code = 7.5 mg/dL 8.6-10.6 L 5424883539) eGFR (test code = mL/min/1.73m2 0634209931) PARISH (test code = PARISH) Association of Glomerular Filtration Rate (GFR) and Staging of Kidney Disease* + --+ --+ ------+| GFR (mL/min/1.73 m2) ?| With Kidney Damage ?| ?Without Kidney Damage+ --------+ --------+ +| ?>90 ?| ?Stage one ?| ? Normal ?+ ---+ ---+ -------+| ?60-89 ?| ?Stage two ?| ? Decreased GFR ? + --+ --+ ------+| ?30-59 ?| ?Stage three ?| ? Stage three ? + --+ --+ ------+| ?15-29 ?| ?Stage four ? | ? Stage four ?+ ---+ ---+ -------+| ?<15 (or dialysis) ? ?| ?Stage five ? | ? Stage five ?+ ---+ ---+ -------+ *Each stage assumes the associated GFR level has been in effect for at least three months. ?Stages 1 to 5, with or without kidney disease, indicate chronic kidney disease. Notes: Determination of stages one and two (with eGFR >59mL/min/1.73 m2) requires estimation of kidney damage for at least three months as defined by structural or functional abnormalities of the kidney, manifested by either:Pathological abnormalities or Markers of kidney damage (including abnormalities in the composition of the blood or urine or abnormalities in imaging tests). Lab Interpretation Abnormal (test code = 78484-5) [facility]53 Test Item Value Reference Range Interpretation Comments MAGNESIUM (test code = 5719477605) 1.7 mg/dL 1.7-2.4 Lab Interpretation (test code = Normal 34041-9) [facility] (NA, K, CL, CO2, GLUCOSE, BUN, CREATININE, CA)2022-04-29 20:34:53 Test Item Value Reference Range Interpretation Comments NA (test code = 133 mmol/L 135-145 L 1109386095) K (test code = 3.5 mmol/L 3.5-5.0 7885313004) CL (test code = 110 mmol/L 98-108 H 6910680003) CO2 TOTAL (test code = 21 mmol/L 23-31 L 0401129296) AGAP (test code = 2-16 4376599416) BUN (test code = 10 mg/dL 7-23 0062207886) GLUCOSE (test code = 61 mg/dL 70-110 L 2498094854) CREATININE (test code = 0.39 mg/dL 0.50-1.04 L 9418160664) CALCIUM (test code = 7.5 mg/dL 8.6-10.6 L 1172353675) eGFR (test code = mL/min/1.73m2 7564374688) PARISH (test code = PARISH) Association of Glomerular Filtration Rate (GFR) and Staging of Kidney Disease* + --+ --+ ------+| GFR (mL/min/1.73 m2) ?| With Kidney Damage ?| ?Without Kidney Damage+ --------+ --------+ +| ?>90 ?| ?Stage one ?| ? Normal ?+ ---+ ---+ -------+| ?60-89 ?| ?Stage two ?| ? Decreased GFR ? + --+ --+ ------+| ?30-59 ?| ?Stage three ?| ? Stage three ? + --+ --+ ------+| ?15-29 ?| ?Stage four ? | ? Stage four ?+ ---+ ---+ -------+| ?<15 (or dialysis) ? ?| ?Stage five ? | ? Stage five ?+ ---+ ---+ -------+ *Each stage assumes the associated GFR level has been in effect for at least three months. ?Stages 1 to 5, with or without kidney disease, indicate chronic kidney disease. Notes: Determination of stages one and two (with eGFR >59mL/min/1.73 m2) requires estimation of kidney damage for at least three months as defined by structural or functional abnormalities of the kidney, manifested by either:Pathological abnormalities or Markers of kidney damage (including abnormalities in the composition of the blood or urine or abnormalities in imaging tests). Lab Interpretation Abnormal (test code = 84743-9) [facility]53 Test Item Value Reference Range Interpretation Comments MAGNESIUM (test code = 2848137836) 1.7 mg/dL 1.7-2.4 Lab Interpretation (test code = Normal 73338-7) [facility] WITH [id number] 16:02:13 Test Item Value Reference Range Interpretation Comments WBC (test code = See_Comment H [Automated 6690-2) message] The system which generated this result transmit palma reference range : 4.30 - 11.10 10*3/?L. The reference range was not used to interpret this result as normal/abnormal . RBC (test code = See_Comment L [Automated 789-8) message] The system which generated this result transmit palma reference range : 3.93 - 5.25 10*6/?L. The reference range was not used to interpret this result as normal/abnormal . HGB (test code = 7.6 g/dL 11.6-15.0 L 718-7) HCT (test code = 22.6 % 35.7-45.2 L 4544-3) MCV (test code = 87.3 fL 80.6-95.5 787-2) MCH (test code = 29.3 pg 25.9-32.8 785-6) MCHC (test code = 33.6 g/dL 31.6-35.1 786-4) RDW-SD (test code = 52.6 fL 39.0-49.9 H 44411-6) RDW-CV (test code = 16.9 % 12.0-15.5 H 788-0) PLT (test code = See_Comment H [Automated 777-3) message] The system which generated this result transmit palma reference range : 166 - 358 10*3/ ?L. The reference range was not u sed to interpret th is result as normal/abnormal . MPV (test code = 10.6 fL 9.5-12.9 94514-5) NRBC/100 WBC (test See_Comment [Automat ed code = 0214259184) message] The system which generated this result transmit palma reference range : 0.0 - 10.0 /100 WBCs. The reference range was not used to interpret this result as normal/abnormal . NRBC x10^3 (test code See_Comment [Auto mated = 9859539514) message] The system which generated this result transmit palma reference range : 10*3/?L. The reference range was not used to interpret this result as normal/abnormal . GRAN MAT (NEUT) % 88.1 % (test code = 770-8) IMM GRAN % (test code 0.70 % = 6108567232) LYMPH % (test code = 5.9 % 736-9) MONO % (test code = 5.1 % 5905-5) EOS % (test code = 0.1 % 713-8) BASO % (test code = 0.1 % 706-2) GRAN MAT x10^3(ANC) 25.64 10*3/uL 1.88-7.09 H (test code = 4858743746) IMM GRAN x10^3 (test 0.19 10*3/uL 0.00-0.06 H code = 7193628553) LYMPH x10^3 (test code 1.72 10*3/uL 1.32-3.29 = 731-0) MONO x10^3 (test code 1.50 10*3/uL 0.33-0.92 H = 742-7) EOS x10^3 (test code = 0.04 10*3/uL 0.03-0.39 711-2) BASO x10^3 (test code 0.04 10*3/uL 0.01-0.07 = 704-7) Lab Interpretation Abnormal (test code = 67290-6) [facility] WITH [id number] 16:02:13 Test Item Value Reference Range Interpretation Comments WBC (test code = See_Comment H [Automated 6690-2) message] The system which generated this result transmit palma reference range : 4.30 - 11.10 10*3/?L. The reference range was not used to interpret this result as normal/abnormal . RBC (test code = See_Comment L [Automated 789-8) message] The system which generated this result transmit palma reference range : 3.93 - 5.25 10*6/?L. The reference range was not used to interpret this result as normal/abnormal . HGB (test code = 7.6 g/dL 11.6-15.0 L 718-7) HCT (test code = 22.6 % 35.7-45.2 L 4544-3) MCV (test code = 87.3 fL 80.6-95.5 787-2) MCH (test code = 29.3 pg 25.9-32.8 785-6) MCHC (test code = 33.6 g/dL 31.6-35.1 786-4) RDW-SD (test code = 52.6 fL 39.0-49.9 H 90678-6) RDW-CV (test code = 16.9 % 12.0-15.5 H 788-0) PLT (test code = See_Comment H [Automated 777-3) message] The system which generated this result transmit palma reference range : 166 - 358 10*3/ ?L. The reference range was not u sed to interpret th is result as normal/abnormal . MPV (test code = 10.6 fL 9.5-12.9 07756-0) NRBC/100 WBC (test See_Comment [Automat ed code = 9819762502) message] The system which generated this result transmit palma reference range : 0.0 - 10.0 /100 WBCs. The reference range was not used to interpret this result as normal/abnormal . NRBC x10^3 (test code See_Comment [Auto mated = 6139903788) message] The system which generated this result transmit palma reference range : 10*3/?L. The reference range was not used to interpret this result as normal/abnormal . GRAN MAT (NEUT) % 88.1 % (test code = 770-8) IMM GRAN % (test code 0.70 % = 4043044687) LYMPH % (test code = 5.9 % 736-9) MONO % (test code = 5.1 % 5905-5) EOS % (test code = 0.1 % 713-8) BASO % (test code = 0.1 % 706-2) GRAN MAT x10^3(ANC) 25.64 10*3/uL 1.88-7.09 H (test code = 1263003637) IMM GRAN x10^3 (test 0.19 10*3/uL 0.00-0.06 H code = 9384327084) LYMPH x10^3 (test code 1.72 10*3/uL 1.32-3.29 = 731-0) MONO x10^3 (test code 1.50 10*3/uL 0.33-0.92 H = 742-7) EOS x10^3 (test code = 0.04 10*3/uL 0.03-0.39 711-2) BASO x10^3 (test code 0.04 10*3/uL 0.01-0.07 = 704-7) Lab Interpretation Abnormal (test code = 84838-6) [facility] WITH [id number] 16:02:13 Test Item Value Reference Range Interpretation Comments WBC (test code = See_Comment H [Automated 5990-2) message] The system which generated this result transmit palma reference range : 4.30 - 11.10 10*3/?L. The reference range was not used to interpret this result as normal/abnormal . RBC (test code = See_Comment L [Automated 789-8) message] The system which generated this result transmit palma reference range : 3.93 - 5.25 10*6/?L. The reference range was not used to interpret this result as normal/abnormal . HGB (test code = 7.6 g/dL 11.6-15.0 L 718-7) HCT (test code = 22.6 % 35.7-45.2 L 4544-3) MCV (test code = 87.3 fL 80.6-95.5 787-2) MCH (test code = 29.3 pg 25.9-32.8 785-6) MCHC (test code = 33.6 g/dL 31.6-35.1 786-4) RDW-SD (test code = 52.6 fL 39.0-49.9 H 56768-8) RDW-CV (test code = 16.9 % 12.0-15.5 H 788-0) PLT (test code = See_Comment H [Automated 777-3) message] The system which generated this result transmit palma reference range : 166 - 358 10*3/ ?L. The reference range was not u sed to interpret th is result as normal/abnormal . MPV (test code = 10.6 fL 9.5-12.9 10971-3) NRBC/100 WBC (test See_Comment [Automat ed code = 5422455477) message] The system which generated this result transmit palma reference range : 0.0 - 10.0 /100 WBCs. The reference range was not used to interpret this result as normal/abnormal . NRBC x10^3 (test code See_Comment [Auto mated = 5850807272) message] The system which generated this result transmit palma reference range : 10*3/?L. The reference range was not used to interpret this result as normal/abnormal . GRAN MAT (NEUT) % 88.1 % (test code = 770-8) IMM GRAN % (test code 0.70 % = 1291114237) LYMPH % (test code = 5.9 % 736-9) MONO % (test code = 5.1 % 5905-5) EOS % (test code = 0.1 % 713-8) BASO % (test code = 0.1 % 706-2) GRAN MAT x10^3(ANC) 25.64 10*3/uL 1.88-7.09 H (test code = 4779023368) IMM GRAN x10^3 (test 0.19 10*3/uL 0.00-0.06 H code = 8379824069) LYMPH x10^3 (test code 1.72 10*3/uL 1.32-3.29 = 731-0) MONO x10^3 (test code 1.50 10*3/uL 0.33-0.92 H = 742-7) EOS x10^3 (test code = 0.04 10*3/uL 0.03-0.39 711-2) BASO x10^3 (test code 0.04 10*3/uL 0.01-0.07 = 704-7) Lab Interpretation Abnormal (test code = 82114-2) [facility] Test Item Value Reference Range Interpretation Comments PHOSPHORUS (test code = 3044372973) 2.8 mg/dL 2.5-5.0 Lab Interpretation (test code = Normal 36950-2) [facility]:11:08 Test Item Value Reference Range Interpretation Comments MAGNESIUM (test code = 9485973801) 2.0 mg/dL 1.7-2.4 Lab Interpretation (test code = Normal 41550-3) [facility] (NA, K, CL, CO2, GLUCOSE, BUN, CREATININE, CA)2022-04-29 09:11:08 Test Item Value Reference Range Interpretation Comments NA (test code = 136 mmol/L 135-145 7227791934) K (test code = 3.9 mmol/L 3.5-5.0 6425938828) CL (test code = 111 mmol/L 98-108 H 5381519509) CO2 TOTAL (test code = 22 mmol/L 23-31 L 4223589582) AGAP (test code = 2-16 0080915039) BUN (test code = 13 mg/dL 7-23 5913668350) GLUCOSE (test code = 94 mg/dL 70-110 3197244698) CREATININE (test code = 0.45 mg/dL 0.50-1.04 L 0121124146) CALCIUM (test code = 7.8 mg/dL 8.6-10.6 L 2884836794) eGFR (test code = mL/min/1.73m2 5372082462) PARISH (test code = PARISH) Association of Glomerular Filtration Rate (GFR) and Staging of Kidney Disease* + --+ --+ ------+| GFR (mL/min/1.73 m2) ?| With Kidney Damage ?| ?Without Kidney Damage+ --------+ --------+ +| ?>90 ?| ?Stage one ?| ? Normal ?+ ---+ ---+ -------+| ?60-89 ?| ?Stage two ?| ? Decreased GFR ? + --+ --+ ------+| ?30-59 ?| ?Stage three ?| ? Stage three ? + --+ --+ ------+| ?15-29 ?| ?Stage four ? | ? Stage four ?+ ---+ ---+ -------+| ?<15 (or dialysis) ? ?| ?Stage five ? | ? Stage five ?+ ---+ ---+ -------+ *Each stage assumes the associated GFR level has been in effect for at least three months. ?Stages 1 to 5, with or without kidney disease, indicate chronic kidney disease. Notes: Determination of stages one and two (with eGFR >59mL/min/1.73 m2) requires estimation of kidney damage for at least three months as defined by structural or functional abnormalities of the kidney, manifested by either:Pathological abnormalities or Markers of kidney damage (including abnormalities in the composition of the blood or urine or abnormalities in imaging tests). Lab Interpretation Abnormal (test code = 08001-0) [facility]08 Test Item Value Reference Range Interpretation Comments PHOSPHORUS (test code = 2733215722) 2.8 mg/dL 2.5-5.0 Lab Interpretation (test code = Normal 20620-6) [facility] 09:11:08 Test Item Value Reference Range Interpretation Comments MAGNESIUM (test code = 5673368347) 2.0 mg/dL 1.7-2.4 Lab Interpretation (test code = Normal 41824-3) [facility] (NA, K, CL, CO2, GLUCOSE, BUN, CREATININE, CA)2022-04-29 09:11:08 Test Item Value Reference Range Interpretation Comments NA (test code = 136 mmol/L 135-145 1514553086) K (test code = 3.9 mmol/L 3.5-5.0 7738067258) CL (test code = 111 mmol/L 98-108 H 9078469363) CO2 TOTAL (test code = 22 mmol/L 23-31 L 1423258447) AGAP (test code = 2-16 3375397659) BUN (test code = 13 mg/dL 7-23 4522271862) GLUCOSE (test code = 94 mg/dL 70-110 1707369574) CREATININE (test code = 0.45 mg/dL 0.50-1.04 L 1773054186) CALCIUM (test code = 7.8 mg/dL 8.6-10.6 L 3679880407) eGFR (test code = mL/min/1.73m2 1402791448) PARISH (test code = PARISH) Association of Glomerular Filtration Rate (GFR) and Staging of Kidney Disease* + --+ --+ ------+| GFR (mL/min/1.73 m2) ?| With Kidney Damage ?| ?Without Kidney Damage+ --------+ --------+ +| ?>90 ?| ?Stage one ?| ? Normal ?+ ---+ ---+ -------+| ?60-89 ?| ?Stage two ?| ? Decreased GFR ? + --+ --+ ------+| ?30-59 ?| ?Stage three ?| ? Stage three ? + --+ --+ ------+| ?15-29 ?| ?Stage four ? | ? Stage four ?+ ---+ ---+ -------+| ?<15 (or dialysis) ? ?| ?Stage five ? | ? Stage five ?+ ---+ ---+ -------+ *Each stage assumes the associated GFR level has been in effect for at least three months. ?Stages 1 to 5, with or without kidney disease, indicate chronic kidney disease. Notes: Determination of stages one and two (with eGFR >59mL/min/1.73 m2) requires estimation of kidney damage for at least three months as defined by structural or functional abnormalities of the kidney, manifested by either:Pathological abnormalities or Markers of kidney damage (including abnormalities in the composition of the blood or urine or abnormalities in imaging tests). Lab Interpretation Abnormal (test code = 65011-2) [facility]:11:08 Test Item Value Reference Range Interpretation Comments PHOSPHORUS (test code = 3647871442) 2.8 mg/dL 2.5-5.0 Lab Interpretation (test code = Normal 65760-3) [facility] 09:11:08 Test Item Value Reference Range Interpretation Comments MAGNESIUM (test code = 2747565847) 2.0 mg/dL 1.7-2.4 Lab Interpretation (test code = Normal 18150-7) [facility] (NA, K, CL, CO2, GLUCOSE, BUN, CREATININE, CA)2022-04-29 09:11:08 Test Item Value Reference Range Interpretation Comments NA (test code = 136 mmol/L 135-145 4488471742) K (test code = 3.9 mmol/L 3.5-5.0 3932002890) CL (test code = 111 mmol/L 98-108 H 4263578303) CO2 TOTAL (test code = 22 mmol/L 23-31 L 8409506019) AGAP (test code = 2-16 7774832172) BUN (test code = 13 mg/dL 7-23 1021542554) GLUCOSE (test code = 94 mg/dL 70-110 4933599807) CREATININE (test code = 0.45 mg/dL 0.50-1.04 L 5102399666) CALCIUM (test code = 7.8 mg/dL 8.6-10.6 L 4470917782) eGFR (test code = mL/min/1.73m2 5836024524) PARISH (test code = PARISH) Association of Glomerular Filtration Rate (GFR) and Staging of Kidney Disease* + --+ --+ ------+| GFR (mL/min/1.73 m2) ?| With Kidney Damage ?| ?Without Kidney Damage+ --------+ --------+ +| ?>90 ?| ?Stage one ?| ? Normal ?+ ---+ ---+ -------+| ?60-89 ?| ?Stage two ?| ? Decreased GFR ? + --+ --+ ------+| ?30-59 ?| ?Stage three ?| ? Stage three ? + --+ --+ ------+| ?15-29 ?| ?Stage four ? | ? Stage four ?+ ---+ ---+ -------+| ?<15 (or dialysis) ? ?| ?Stage five ? | ? Stage five ?+ ---+ ---+ -------+ *Each stage assumes the associated GFR level has been in effect for at least three months. ?Stages 1 to 5, with or without kidney disease, indicate chronic kidney disease. Notes: Determination of stages one and two (with eGFR >59mL/min/1.73 m2) requires estimation of kidney damage for at least three months as defined by structural or functional abnormalities of the kidney, manifested by either:Pathological abnormalities or Markers of kidney damage (including abnormalities in the composition of the blood or urine or abnormalities in imaging tests). Lab Interpretation Abnormal (test code = 01713-0) [facility] 1 Units 2022-04-29 01:44:36 Test Item Value Reference Range Interpretation Comments Cross Match Result Compatible (test code = 4409) ISBT Blood Type Code (test code = 074209) Unit Blood Type (test B Pos code = 4410) Unit Number (test [id number] code = 4411) Blood Expiration Date & Time (test code = 681762) Status Information Issued (test code = 4412) Product Red Blood Cells Identification (test code = 4413) Product Code (test [id number] Performed at [facility] code = 4414) Laboratory Services - [facility] Blood [address] Free: [phone] A No. [id number] [facility] ([facility]), 1 Units 2022-04-29 01:44:36 Test Item Value Reference Range Interpretation Comments Cross Match Result Compatible (test code = 4409) ISBT Blood Type Code (test code = 324012) Unit Blood Type (test B Pos code = 4410) Unit Number (test [id number] code = 4411) Blood Expiration Date & Time (test code = 116087) Status Information Issued (test code = 4412) Product Red Blood Cells Identification (test code = 4413) Product Code (test [id number] Performed at [facility] code = 4414) Laboratory Services - [facility] Blood [id number] [place], [place] [id number] Free: [phone] A No. [id number] [facility] (in units), 1 Units 2022-04-29 01:44:36 Test Item Value Reference Range Interpretation Comments Cross Match Result Compatible (test code = 4409) ISBT Blood Type Code (test code = 051945) Unit Blood Type (test B Pos code = 4410) Unit Number (test [id number] code = 4411) Blood Expiration Date & Time (test code = 506513) Status Information Issued (test code = 4412) Product Red Blood Cells Identification (test code = 4413) Product Code (test P4757T86 Performed at [facility] code = 4414) Laboratory Services - [facility] Blood [address] [place] [address]Aveu Free: [phone] A No. [id number] [facility] METABOLIC PANEL (NA, K, CL, CO2, GLUCOSE, BUN, CREATININE, CA)2022-04-28 20:46:48 Test Item Value Reference Range Interpretation Comments NA (test code = 138 mmol/L 135-145 2365330980) K (test code = 2.5 mmol/L 3.5-5.0 LL 1828347220) CL (test code = 123 mmol/L 98-108 H 9615360906) CO2 TOTAL (test code = 14 mmol/L 23-31 L 9178797822) AGAP (test code = 2-16 L 7586553592) BUN (test code = 10 mg/dL 7-23 0134508653) GLUCOSE (test code = 80 mg/dL 70-110 7796195075) CREATININE (test code = 0.33 mg/dL 0.50-1.04 L 2449969342) CALCIUM (test code = 5.4 mg/dL 8.6-10.6 LL 6892588166) eGFR (test code = mL/min/1.73m2 0958088316) PARISH (test code = PARISH) Association of Glomerular Filtration Rate (GFR) and Staging of Kidney Disease* + --+ --+ ------+| GFR (mL/min/1.73 m2) ?| With Kidney Damage ?| ?Without Kidney Damage+ --------+ --------+ +| ?>90 ?| ?Stage one ?| ? Normal ?+ ---+ ---+ -------+| ?60-89 ?| ?Stage two ?| ? Decreased GFR ? + --+ --+ ------+| ?30-59 ?| ?Stage three ?| ? Stage three ? + --+ --+ ------+| ?15-29 ?| ?Stage four ? | ? Stage four ?+ ---+ ---+ -------+| ?<15 (or dialysis) ? ?| ?Stage five ? | ? Stage five ?+ ---+ ---+ -------+ *Each stage assumes the associated GFR level has been in effect for at least three months. ?Stages 1 to 5, with or without kidney disease, indicate chronic kidney disease. Notes: Determination of stages one and two (with eGFR >59mL/min/1.73 m2) requires estimation of kidney damage for at least three months as defined by structural or functional abnormalities of the kidney, manifested by either:Pathological abnormalities or Markers of kidney damage (including abnormalities in the composition of the blood or urine or abnormalities in imaging tests). Lab Interpretation Abnormal (test code = 99509-1) [facility] METABOLIC PANEL (NA, K, CL, CO2, GLUCOSE, BUN, CREATININE, CA)2022-04-28 20:46:48 Test Item Value Reference Range Interpretation Comments NA (test code = 138 mmol/L 135-145 7562190830) K (test code = 2.5 mmol/L 3.5-5.0 LL 0966589281) CL (test code = 123 mmol/L 98-108 H 3443745381) CO2 TOTAL (test code = 14 mmol/L 23-31 L 4343317006) AGAP (test code = 2-16 L 5257013602) BUN (test code = 10 mg/dL 7-23 9696083855) GLUCOSE (test code = 80 mg/dL 70-110 6247970750) CREATININE (test code = 0.33 mg/dL 0.50-1.04 L 0462095019) CALCIUM (test code = 5.4 mg/dL 8.6-10.6 LL 6559941734) eGFR (test code = mL/min/1.73m2 0475536560) PARISH (test code = PARISH) Association of Glomerular Filtration Rate (GFR) and Staging of Kidney Disease* + --+ --+ ------+| GFR (mL/min/1.73 m2) ?| With Kidney Damage ?| ?Without Kidney Damage+ --------+ --------+ +| ?>90 ?| ?Stage one ?| ? Normal ?+ ---+ ---+ -------+| ?60-89 ?| ?Stage two ?| ? Decreased GFR ? + --+ --+ ------+| ?30-59 ?| ?Stage three ?| ? Stage three ? + --+ --+ ------+| ?15-29 ?| ?Stage four ? | ? Stage four ?+ ---+ ---+ -------+| ?<15 (or dialysis) ? ?| ?Stage five ? | ? Stage five ?+ ---+ ---+ -------+ *Each stage assumes the associated GFR level has been in effect for at least three months. ?Stages 1 to 5, with or without kidney disease, indicate chronic kidney disease. Notes: Determination of stages one and two (with eGFR >59mL/min/1.73 m2) requires estimation of kidney damage for at least three months as defined by structural or functional abnormalities of the kidney, manifested by either:Pathological abnormalities or Markers of kidney damage (including abnormalities in the composition of the blood or urine or abnormalities in imaging tests). Lab Interpretation Abnormal (test code = 32884-8) [facility] METABOLIC PANEL (NA, K, CL, CO2, GLUCOSE, BUN, CREATININE, CA)2022-04-28 20:46:48 Test Item Value Reference Range Interpretation Comments NA (test code = 138 mmol/L 135-145 6478568705) K (test code = 2.5 mmol/L 3.5-5.0 LL 7559585033) CL (test code = 123 mmol/L 98-108 H 1464817601) CO2 TOTAL (test code = 14 mmol/L 23-31 L 8316615928) AGAP (test code = 2-16 L 9246786240) BUN (test code = 10 mg/dL 7-23 8521861543) GLUCOSE (test code = 80 mg/dL 70-110 8161472127) CREATININE (test code = 0.33 mg/dL 0.50-1.04 L 2961937902) CALCIUM (test code = 5.4 mg/dL 8.6-10.6 LL 9705167878) eGFR (test code = mL/min/1.73m2 8150506293) PARISH (test code = PARISH) Association of Glomerular Filtration Rate (GFR) and Staging of Kidney Disease* + --+ --+ ------+| GFR (mL/min/1.73 m2) ?| With Kidney Damage ?| ?Without Kidney Damage+ --------+ --------+ +| ?>90 ?| ?Stage one ?| ? Normal ?+ ---+ ---+ -------+| ?60-89 ?| ?Stage two ?| ? Decreased GFR ? + --+ --+ ------+| ?30-59 ?| ?Stage three ?| ? Stage three ? + --+ --+ ------+| ?15-29 ?| ?Stage four ? | ? Stage four ?+ ---+ ---+ -------+| ?<15 (or dialysis) ? ?| ?Stage five ? | ? Stage five ?+ ---+ ---+ -------+ *Each stage assumes the associated GFR level has been in effect for at least three months. ?Stages 1 to 5, with or without kidney disease, indicate chronic kidney disease. Notes: Determination of stages one and two (with eGFR >59mL/min/1.73 m2) requires estimation of kidney damage for at least three months as defined by structural or functional abnormalities of the kidney, manifested by either:Pathological abnormalities or Markers of kidney damage (including abnormalities in the composition of the blood or urine or abnormalities in imaging tests). Lab Interpretation Abnormal (test code = 56506-0) [facility]:16 Test Item Value Reference Range Interpretation Comments PHOSPHORUS (test code = 6736883014) 2.3 mg/dL 2.5-5.0 L Lab Interpretation (test code = Abnormal 12208-2) [facility] 20:35:16 Test Item Value Reference Range Interpretation Comments MAGNESIUM (test code = 3858258372) 1.3 mg/dL 1.7-2.4 L Lab Interpretation (test code = Abnormal 06919-7) [facility] 20:35:16 Test Item Value Reference Range Interpretation Comments PHOSPHORUS (test code = 2988847114) 2.3 mg/dL 2.5-5.0 L Lab Interpretation (test code = Abnormal 25090-5) [facility] 20:35:16 Test Item Value Reference Range Interpretation Comments MAGNESIUM (test code = 9423455949) 1.3 mg/dL 1.7-2.4 L Lab Interpretation (test code = Abnormal 18589-8) [facility] 20:35:16 Test Item Value Reference Range Interpretation Comments PHOSPHORUS (test code = 2708780774) 2.3 mg/dL 2.5-5.0 L Lab Interpretation (test code = Abnormal 49990-6) [facility] Test Item Value Reference Range Interpretation Comments MAGNESIUM (test code = 7996620893) 1.3 mg/dL 1.7-2.4 L Lab Interpretation (test code = Abnormal 97629-1) [facility] GLUCOSE (AUTOMATED)2022-04-28 12:04:36 Test Item Value Reference Range Interpretation Comments POCT GLU (test code = 8233951181) 139 mg/dL 70-110 H Lab Interpretation (test code = Abnormal 88475-3) [facility] GLUCOSE (AUTOMATED)2022-04-28 12:04:36 Test Item Value Reference Range Interpretation Comments POCT GLU (test code = 3727958925) 139 mg/dL 70-110 H Lab Interpretation (test code = Abnormal 80056-5) [facility] GLUCOSE (AUTOMATED)2022-04-28 12:04:36 Test Item Value Reference Range Interpretation Comments POCT GLU (test code = 4214162169) 139 mg/dL 70-110 H Lab Interpretation (test code = Abnormal 25921-0) [facility] GLUCOSE (AUTOMATED)2022-04-28 12:04:36 Test Item Value Reference Range Interpretation Comments POCT GLU (test code = 5352455080) 139 mg/dL 70-110 H Lab Interpretation (test code = Abnormal 29291-0) [facility] WITH [id number] 09:47:25 Test Item Value Reference Range Interpretation Comments WBC (test code = See_Comment H [Automated 6690-2) message] The system which generated this result transmit palma reference range : 4.30 - 11.10 10*3/?L. The reference range was not used to interpret this result as normal/abnormal . RBC (test code = See_Comment L [Automated 789-8) message] The system which generated this result transmit palma reference range : 3.93 - 5.25 10*6/?L. The reference range was not used to interpret this result as normal/abnormal . HGB (test code = 7.3 g/dL 11.6-15 L 718-7) HCT (test code = 22.5 % 35.7-45.2 L 4544-3) MCV (test code = 88.6 fL 80.6-95.5 787-2) MCH (test code = 28.7 pg 25.9-32.8 785-6) MCHC (test code = 32.4 g/dL 31.6-35.1 786-4) RDW-SD (test code = 53.9 fL 39-49.9 H 82890-7) RDW-CV (test code = 16.8 % 12-15.5 H 788-0) PLT (test code = See_Comment H [Automated 777-3) message] The system which generated this result transmit palma reference range : 166 - 358 10*3/ ?L. The reference range was not u sed to interpret th is result as normal/abnormal . MPV (test code = 10.0 fL 9.5-12.9 19652-6) NRBC/100 WBC (test See_Comment [Automat ed code = 5703581665) message] The system which generated this result transmit palma reference range : 0.0 - 10.0 /100 WBCs. The reference range was not used to interpret this result as normal/abnormal . NRBC x10^3 (test code See_Comment [Auto mated = 4999473851) message] The system which generated this result transmit palma reference range : 10*3/?L. The reference range was not used to interpret this result as normal/abnormal . GRAN MAT (NEUT) % 92.4 % (test code = 770-8) IMM GRAN % (test code 0.60 % = 0454827656) LYMPH % (test code = 3.5 % 736-9) MONO % (test code = 3.3 % 5905-5) EOS % (test code = 0.0 % 713-8) BASO % (test code = 0.2 % 706-2) GRAN MAT x10^3(ANC) 39.84 10*3/uL 1.88-7.09 H (test code = 9893674342) IMM GRAN x10^3 (test 0.24 10*3/uL 0-0.06 H code = 9180881330) LYMPH x10^3 (test code 1.53 10*3/uL 1.32-3.29 = 731-0) MONO x10^3 (test code 1.44 10*3/uL 0.33-0.92 H = 742-7) EOS x10^3 (test code = 0.03-0.39 L 711-2) BASO x10^3 (test code 0.08 10*3/uL 0.01-0.07 H = 704-7) BANDS (test code = Increased A 0816394007) Lab Interpretation Abnormal (test code = 40244-8) [facility] WITH [id number] 09:47:25 Test Item Value Reference Range Interpretation Comments WBC (test code = See_Comment H [Automated 6690-2) message] The system which generated this result transmit palma reference range : 4.30 - 11.10 10*3/?L. The reference range was not used to interpret this result as normal/abnormal . RBC (test code = See_Comment L [Automated 789-8) message] The system which generated this result transmit palma reference range : 3.93 - 5.25 10*6/?L. The reference range was not used to interpret this result as normal/abnormal . HGB (test code = 7.3 g/dL 11.6-15.0 L 718-7) HCT (test code = 22.5 % 35.7-45.2 L 4544-3) MCV (test code = 88.6 fL 80.6-95.5 787-2) MCH (test code = 28.7 pg 25.9-32.8 785-6) MCHC (test code = 32.4 g/dL 31.6-35.1 786-4) RDW-SD (test code = 53.9 fL 39.0-49.9 H 35711-3) RDW-CV (test code = 16.8 % 12.0-15.5 H 788-0) PLT (test code = See_Comment H [Automated 777-3) message] The system which generated this result transmit palma reference range : 166 - 358 10*3/ ?L. The reference range was not u sed to interpret th is result as normal/abnormal . MPV (test code = 10.0 fL 9.5-12.9 56967-1) NRBC/100 WBC (test See_Comment [Automat ed code = 0477298597) message] The system which generated this result transmit palma reference range : 0.0 - 10.0 /100 WBCs. The reference range was not used to interpret this result as normal/abnormal . NRBC x10^3 (test code See_Comment [Auto mated = 8875615870) message] The system which generated this result transmit palma reference range : 10*3/?L. The reference range was not used to interpret this result as normal/abnormal . GRAN MAT (NEUT) % 92.4 % (test code = 770-8) IMM GRAN % (test code 0.60 % = 9620265351) LYMPH % (test code = 3.5 % 736-9) MONO % (test code = 3.3 % 5905-5) EOS % (test code = 0.0 % 713-8) BASO % (test code = 0.2 % 706-2) GRAN MAT x10^3(ANC) 39.84 10*3/uL 1.88-7.09 H (test code = 6944864711) IMM GRAN x10^3 (test 0.24 10*3/uL 0.00-0.06 H code = 1816096126) LYMPH x10^3 (test code 1.53 10*3/uL 1.32-3.29 = 731-0) MONO x10^3 (test code 1.44 10*3/uL 0.33-0.92 H = 742-7) EOS x10^3 (test code = 0.03-0.39 L 711-2) BASO x10^3 (test code 0.08 10*3/uL 0.01-0.07 H = 704-7) BANDS (test code = Increased A 7434018644) Lab Interpretation Abnormal (test code = 92947-8) [facility] WITH [id number] 09:47:25 Test Item Value Reference Range Interpretation Comments WBC (test code = See_Comment H [Automated 6690-2) message] The system which generated this result transmit palma reference range : 4.30 - 11.10 10*3/?L. The reference range was not used to interpret this result as normal/abnormal . RBC (test code = See_Comment L [Automated 789-8) message] The system which generated this result transmit palma reference range : 3.93 - 5.25 10*6/?L. The reference range was not used to interpret this result as normal/abnormal . HGB (test code = 7.3 g/dL 11.6-15.0 L 718-7) HCT (test code = 22.5 % 35.7-45.2 L 4544-3) MCV (test code = 88.6 fL 80.6-95.5 787-2) MCH (test code = 28.7 pg 25.9-32.8 785-6) MCHC (test code = 32.4 g/dL 31.6-35.1 786-4) RDW-SD (test code = 53.9 fL 39.0-49.9 H 39347-9) RDW-CV (test code = 16.8 % 12.0-15.5 H 788-0) PLT (test code = See_Comment H [Automated 777-3) message] The system which generated this result transmit palma reference range : 166 - 358 10*3/ ?L. The reference range was not u sed to interpret th is result as normal/abnormal . MPV (test code = 10.0 fL 9.5-12.9 29188-0) NRBC/100 WBC (test See_Comment [Automat ed code = 8109134538) message] The system which generated this result transmit palma reference range : 0.0 - 10.0 /100 WBCs. The reference range was not used to interpret this result as normal/abnormal . NRBC x10^3 (test code See_Comment [Auto mated = 7257067651) message] The system which generated this result transmit palma reference range : 10*3/?L. The reference range was not used to interpret this result as normal/abnormal . GRAN MAT (NEUT) % 92.4 % (test code = 770-8) IMM GRAN % (test code 0.60 % = 4682411735) LYMPH % (test code = 3.5 % 736-9) MONO % (test code = 3.3 % 5905-5) EOS % (test code = 0.0 % 713-8) BASO % (test code = 0.2 % 706-2) GRAN MAT x10^3(ANC) 39.84 10*3/uL 1.88-7.09 H (test code = 7841050544) IMM GRAN x10^3 (test 0.24 10*3/uL 0.00-0.06 H code = 3177730062) LYMPH x10^3 (test code 1.53 10*3/uL 1.32-3.29 = 731-0) MONO x10^3 (test code 1.44 10*3/uL 0.33-0.92 H = 742-7) EOS x10^3 (test code = 0.03-0.39 L 711-2) BASO x10^3 (test code 0.08 10*3/uL 0.01-0.07 H = 704-7) BANDS (test code = Increased A 2209318030) Lab Interpretation Abnormal (test code = 68649-9) [facility] WITH [id number] 09:47:25 Test Item Value Reference Range Interpretation Comments WBC (test code = See_Comment H [Automated 1190-2) message] The system which generated this result transmit palma reference range : 4.30 - 11.10 10*3/?L. The reference range was not used to interpret this result as normal/abnormal . RBC (test code = See_Comment L [Automated 479-8) message] The system which generated this result transmit palma reference range : 3.93 - 5.25 10*6/?L. The reference range was not used to interpret this result as normal/abnormal . HGB (test code = 7.3 g/dL 11.6-15.0 L 718-7) HCT (test code = 22.5 % 35.7-45.2 L 4544-3) MCV (test code = 88.6 fL 80.6-95.5 787-2) MCH (test code = 28.7 pg 25.9-32.8 785-6) MCHC (test code = 32.4 g/dL 31.6-35.1 786-4) RDW-SD (test code = 53.9 fL 39.0-49.9 H 18244-0) RDW-CV (test code = 16.8 % 12.0-15.5 H 788-0) PLT (test code = See_Comment H [Automated 777-3) message] The system which generated this result transmit palma reference range : 166 - 358 10*3/ ?L. The reference range was not u sed to interpret th is result as normal/abnormal . MPV (test code = 10.0 fL 9.5-12.9 73362-6) NRBC/100 WBC (test See_Comment [Automat ed code = 8952566643) message] The system which generated this result transmit palma reference range : 0.0 - 10.0 /100 WBCs. The reference range was not used to interpret this result as normal/abnormal . NRBC x10^3 (test code See_Comment [Auto mated = 8621756464) message] The system which generated this result transmit palma reference range : 10*3/?L. The reference range was not used to interpret this result as normal/abnormal . GRAN MAT (NEUT) % 92.4 % (test code = 770-8) IMM GRAN % (test code 0.60 % = 6627409004) LYMPH % (test code = 3.5 % 736-9) MONO % (test code = 3.3 % 5905-5) EOS % (test code = 0.0 % 713-8) BASO % (test code = 0.2 % 706-2) GRAN MAT x10^3(ANC) 39.84 10*3/uL 1.88-7.09 H (test code = 4937596683) IMM GRAN x10^3 (test 0.24 10*3/uL 0.00-0.06 H code = 0703684298) LYMPH x10^3 (test code 1.53 10*3/uL 1.32-3.29 = 731-0) MONO x10^3 (test code 1.44 10*3/uL 0.33-0.92 H = 742-7) EOS x10^3 (test code = 0.03-0.39 L 711-2) BASO x10^3 (test code 0.08 10*3/uL 0.01-0.07 H = 704-7) BANDS (test code = Increased A 6655271624) Lab Interpretation Abnormal (test code = 65322-8) [facility] METABOLIC PANEL (NA, K, CL, CO2, GLUCOSE, BUN, CREATININE, CA)2022-04-28 09:18:41 Test Item Value Reference Range Interpretation Comments NA (test code = 135 mmol/L 135-145 3954700126) K (test code = 3.5 mmol/L 3.5-5 2925650141) CL (test code = 112 mmol/L 98-108 H 2162240184) CO2 TOTAL (test code = 19 mmol/L 23-31 L 5816647051) AGAP (test code = 2-16 8917452806) BUN (test code = 12 mg/dL 7-23 8167088790) GLUCOSE (test code = 115 mg/dL 70-110 H 0819150904) CREATININE (test code = 0.53 mg/dL 0.5-1.04 1058329211) CALCIUM (test code = 7.7 mg/dL 8.6-10.6 L 0669936266) eGFR (test code = mL/min/1.73m2 0972743686) PARISH (test code = PARISH) Association of Glomerular Filtration Rate (GFR) and Staging of Kidney Disease* + --+ --+ ------+| GFR (mL/min/1.73 m2) ?| With Kidney Damage ?| ?Without Kidney Damage+ --------+ --------+ +| ?>90 ?| ?Stage one ?| ? Normal ?+ ---+ ---+ -------+| ?60-89 ?| ?Stage two ?| ? Decreased GFR ? + --+ --+ ------+| ?30-59 ?| ?Stage three ?| ? Stage three ? + --+ --+ ------+| ?15-29 ?| ?Stage four ? | ? Stage four ?+ ---+ ---+ -------+| ?<15 (or dialysis) ? ?| ?Stage five ? | ? Stage five ?+ ---+ ---+ -------+ *Each stage assumes the associated GFR level has been in effect for at least three months. ?Stages 1 to 5, with or without kidney disease, indicate chronic kidney disease. Notes: Determination of stages one and two (with eGFR >59mL/min/1.73 m2) requires estimation of kidney damage for at least three months as defined by structural or functional abnormalities of the kidney, manifested by either:Pathological abnormalities or Markers of kidney damage (including abnormalities in the composition of the blood or urine or abnormalities in imaging tests). Lab Interpretation Abnormal (test code = 05226-6) [facility] Test Item Value Reference Range Interpretation Comments MAGNESIUM (test code = 9636541765) 1.6 mg/dL 1.7-2.4 L Lab Interpretation (test code = Abnormal 58647-4) [facility] 09:18:41 Test Item Value Reference Range Interpretation Comments PHOSPHORUS (test code = 2702712647) 3.9 mg/dL 2.5-5 Lab Interpretation (test code = Normal 78737-4) [facility] (NA, K, CL, CO2, GLUCOSE, BUN, CREATININE, CA)2022-04-28 09:18:41 Test Item Value Reference Range Interpretation Comments NA (test code = 135 mmol/L 135-145 8626345790) K (test code = 3.5 mmol/L 3.5-5.0 1903986101) CL (test code = 112 mmol/L 98-108 H 8121375309) CO2 TOTAL (test code = 19 mmol/L 23-31 L 8158535591) AGAP (test code = 2-16 5439418429) BUN (test code = 12 mg/dL 7-23 8773538263) GLUCOSE (test code = 115 mg/dL 70-110 H 1291164314) CREATININE (test code = 0.53 mg/dL 0.50-1.04 9596645376) CALCIUM (test code = 7.7 mg/dL 8.6-10.6 L 7132181169) eGFR (test code = mL/min/1.73m2 6404132971) PARISH (test code = PARISH) Association of Glomerular Filtration Rate (GFR) and Staging of Kidney Disease* + --+ --+ ------+| GFR (mL/min/1.73 m2) ?| With Kidney Damage ?| ?Without Kidney Damage+ --------+ --------+ +| ?>90 ?| ?Stage one ?| ? Normal ?+ ---+ ---+ -------+| ?60-89 ?| ?Stage two ?| ? Decreased GFR ? + --+ --+ ------+| ?30-59 ?| ?Stage three ?| ? Stage three ? + --+ --+ ------+| ?15-29 ?| ?Stage four ? | ? Stage four ?+ ---+ ---+ -------+| ?<15 (or dialysis) ? ?| ?Stage five ? | ? Stage five ?+ ---+ ---+ -------+ *Each stage assumes the associated GFR level has been in effect for at least three months. ?Stages 1 to 5, with or without kidney disease, indicate chronic kidney disease. Notes: Determination of stages one and two (with eGFR >59mL/min/1.73 m2) requires estimation of kidney damage for at least three months as defined by structural or functional abnormalities of the kidney, manifested by either:Pathological abnormalities or Markers of kidney damage (including abnormalities in the composition of the blood or urine or abnormalities in imaging tests). Lab Interpretation Abnormal (test code = 58610-0) [facility] 09:18:41 Test Item Value Reference Range Interpretation Comments MAGNESIUM (test code = 9068621137) 1.6 mg/dL 1.7-2.4 L Lab Interpretation (test code = Abnormal 34281-5) [facility] [facility] 09:18:41 Test Item Value Reference Range Interpretation Comments PHOSPHORUS (test code = 7214118606) 3.9 mg/dL 2.5-5.0 Lab Interpretation (test code = Normal 52101-8) [facility] (NA, K, CL, CO2, GLUCOSE, BUN, CREATININE, CA)2022-04-28 09:18:41 Test Item Value Reference Range Interpretation Comments NA (test code = 135 mmol/L 135-145 7859036760) K (test code = 3.5 mmol/L 3.5-5.0 9465488788) CL (test code = 112 mmol/L 98-108 H 4421302943) CO2 TOTAL (test code = 19 mmol/L 23-31 L 3796480647) AGAP (test code = 2-16 5011009725) BUN (test code = 12 mg/dL 7-23 5948146613) GLUCOSE (test code = 115 mg/dL 70-110 H 7248945261) CREATININE (test code = 0.53 mg/dL 0.50-1.04 5453588224) CALCIUM (test code = 7.7 mg/dL 8.6-10.6 L 2103127354) eGFR (test code = mL/min/1.73m2 9061460264) PARISH (test code = PARISH) Association of Glomerular Filtration Rate (GFR) and Staging of Kidney Disease* + --+ --+ ------+| GFR (mL/min/1.73 m2) ?| With Kidney Damage ?| ?Without Kidney Damage+ --------+ --------+ +| ?>90 ?| ?Stage one ?| ? Normal ?+ ---+ ---+ -------+| ?60-89 ?| ?Stage two ?| ? Decreased GFR ? + --+ --+ ------+| ?30-59 ?| ?Stage three ?| ? Stage three ? + --+ --+ ------+| ?15-29 ?| ?Stage four ? | ? Stage four ?+ ---+ ---+ -------+| ?<15 (or dialysis) ? ?| ?Stage five ? | ? Stage five ?+ ---+ ---+ -------+ *Each stage assumes the associated GFR level has been in effect for at least three months. ?Stages 1 to 5, with or without kidney disease, indicate chronic kidney disease. Notes: Determination of stages one and two (with eGFR >59mL/min/1.73 m2) requires estimation of kidney damage for at least three months as defined by structural or functional abnormalities of the kidney, manifested by either:Pathological abnormalities or Markers of kidney damage (including abnormalities in the composition of the blood or urine or abnormalities in imaging tests). Lab Interpretation Abnormal (test code = 94318-9) [facility] Test Item Value Reference Range Interpretation Comments MAGNESIUM (test code = 1991216286) 1.6 mg/dL 1.7-2.4 L Lab Interpretation (test code = Abnormal 12155-2) [facility]:18:41 Test Item Value Reference Range Interpretation Comments PHOSPHORUS (test code = 2318124625) 3.9 mg/dL 2.5-5.0 Lab Interpretation (test code = Normal 07579-9) [facility] (NA, K, CL, CO2, GLUCOSE, BUN, CREATININE, CA)2022-04-28 09:18:41 Test Item Value Reference Range Interpretation Comments NA (test code = 135 mmol/L 135-145 4265746767) K (test code = 3.5 mmol/L 3.5-5.0 8194680254) CL (test code = 112 mmol/L 98-108 H 8421839385) CO2 TOTAL (test code = 19 mmol/L 23-31 L 7469720793) AGAP (test code = 2-16 6343314026) BUN (test code = 12 mg/dL 7-23 8563463894) GLUCOSE (test code = 115 mg/dL 70-110 H 4551768669) CREATININE (test code = 0.53 mg/dL 0.50-1.04 0147650037) CALCIUM (test code = 7.7 mg/dL 8.6-10.6 L 2527912307) eGFR (test code = mL/min/1.73m2 2968264965) PARISH (test code = PARISH) Association of Glomerular Filtration Rate (GFR) and Staging of Kidney Disease* + --+ --+ ------+| GFR (mL/min/1.73 m2) ?| With Kidney Damage ?| ?Without Kidney Damage+ --------+ --------+ +| ?>90 ?| ?Stage one ?| ? Normal ?+ ---+ ---+ -------+| ?60-89 ?| ?Stage two ?| ? Decreased GFR ? + --+ --+ ------+| ?30-59 ?| ?Stage three ?| ? Stage three ? + --+ --+ ------+| ?15-29 ?| ?Stage four ? | ? Stage four ?+ ---+ ---+ -------+| ?<15 (or dialysis) ? ?| ?Stage five ? | ? Stage five ?+ ---+ ---+ -------+ *Each stage assumes the associated GFR level has been in effect for at least three months. ?Stages 1 to 5, with or without kidney disease, indicate chronic kidney disease. Notes: Determination of stages one and two (with eGFR >59mL/min/1.73 m2) requires estimation of kidney damage for at least three months as defined by structural or functional abnormalities of the kidney, manifested by either:Pathological abnormalities or Markers of kidney damage (including abnormalities in the composition of the blood or urine or abnormalities in imaging tests). Lab Interpretation Abnormal (test code = 19635-2) [facility] 09:18:41 Test Item Value Reference Range Interpretation Comments MAGNESIUM (test code = 5265450492) 1.6 mg/dL 1.7-2.4 L Lab Interpretation (test code = Abnormal 03492-2) [facility] 09:18:41 Test Item Value Reference Range Interpretation Comments PHOSPHORUS (test code = 0603589790) 3.9 mg/dL 2.5-5.0 Lab Interpretation (test code = Normal 74333-3) [facility] + Lactic [id number] 04:06:47 Test Item Value Reference Range Interpretation Comments PH (test code = 2) 7.35-7.45 PCO2 (test code = See_Comment L [Automate d 1525849266) message] The sy stem which generated this result transmitted reference range : 35 - 45 mmHg. The reference range was not used to interpret this result as normal/abnormal . PO2 (test code = See_Comment H [Automated 9691940721) message] The sy stem which generated this result transmitted reference range : 80 - 100 mmHg. The reference range was not used to interpret this result as normal/abnormal . HCO3 (test code = See_Comment L [Automate d 6578197685) message] The sy stem which generated this result transmitted reference range : 22 - 26 mEq/L. The reference range was not used to interpret this result as normal/abnormal . BE (test code = See_Comment L [Automated 8444206590) message] The sy stem which generated this result transmitted reference range : -3.0 - 3.0 mEq/ L. The reference r meli was not used to interpret this result as normal/abnormal . THB (test code = 9.1 g/dL 12-16 L 5255544424) %O2HB (test code = 98.7 % 94-99 5234080222) %COHB ART (test code = 0.2 % 0-1.5 7954206264) %METHB ART (test code = 0.3 % 0.4-1.5 L 0583543691) VOL%O2 ART (test code = 13.3 % 15-23 L 0750762186) NA (test code = 138 mmol/L 135-145 0219012609) K+ (test code = 3.5 mmol/L 3.5-5 8428754634) AC CA IONZ (test code = 4.60 mg/dL 4.5-5.3 3383073211) GLUCOSE (test code = 108 mg/dL 70-110 0037720095) LACTIC ACID (test code 1.38 mmol/L 0.5-2.2 = 7451076746) Lab Interpretation Abnormal (test code = 96121-3) [facility] + Lactic [id number] 04:06:47 Test Item Value Reference Range Interpretation Comments PH (test code = 2) 7.35-7.45 PCO2 (test code = See_Comment L [Automate d 9143660209) message] The sy stem which generated this result transmitted reference range : 35 - 45 mmHg. The reference range was not used to interpret this result as normal/abnormal . PO2 (test code = See_Comment H [Automated 2277765714) message] The sy stem which generated this result transmitted reference range : 80 - 100 mmHg. The reference range was not used to interpret this result as normal/abnormal . HCO3 (test code = See_Comment L [Automate d 2512274612) message] The sy stem which generated this result transmitted reference range : 22 - 26 mEq/L. The reference range was not used to interpret this result as normal/abnormal . BE (test code = See_Comment L [Automated 7884625449) message] The sy stem which generated this result transmitted reference range : -3.0 - 3.0 mEq/ L. The reference r meli was not used to interpret this result as normal/abnormal . THB (test code = 9.1 g/dL 12.0-16.0 L 2816263476) %O2HB (test code = 98.7 % 94.0-99.0 9466258441) %COHB ART (test code = 0.2 % 0.0-1.5 1765334413) %METHB ART (test code = 0.3 % 0.4-1.5 L 2391498945) VOL%O2 ART (test code = 13.3 % 15.0-23.0 L 3613294472) NA (test code = 138 mmol/L 135-145 1927677914) K+ (test code = 3.5 mmol/L 3.5-5.0 4997325012) AC CA IONZ (test code = 4.60 mg/dL 4.50-5.30 3091002673) GLUCOSE (test code = 108 mg/dL 70-110 7459035459) LACTIC ACID (test code 1.38 mmol/L 0.50-2.20 = 0526504000) Lab Interpretation Abnormal (test code = 37038-5) [facility] + Lactic [id number] 04:06:47 Test Item Value Reference Range Interpretation Comments PH (test code = 2) 7.35-7.45 PCO2 (test code = See_Comment L [Automate d 4541292067) message] The sy stem which generated this result transmitted reference range : 35 - 45 mmHg. The reference range was not used to interpret this result as normal/abnormal . PO2 (test code = See_Comment H [Automated 0256416494) message] The sy stem which generated this result transmitted reference range : 80 - 100 mmHg. The reference range was not used to interpret this result as normal/abnormal . HCO3 (test code = See_Comment L [Automate d 5581617800) message] The sy stem which generated this result transmitted reference range : 22 - 26 mEq/L. The reference range was not used to interpret this result as normal/abnormal . BE (test code = See_Comment L [Automated 8844109742) message] The sy stem which generated this result transmitted reference range : -3.0 - 3.0 mEq/ L. The reference r meli was not used to interpret this result as normal/abnormal . THB (test code = 9.1 g/dL 12.0-16.0 L 1747445049) %O2HB (test code = 98.7 % 94.0-99.0 5736422677) %COHB ART (test code = 0.2 % 0.0-1.5 6836590985) %METHB ART (test code = 0.3 % 0.4-1.5 L 0805452759) VOL%O2 ART (test code = 13.3 % 15.0-23.0 L 7435560370) NA (test code = 138 mmol/L 135-145 6082581858) K+ (test code = 3.5 mmol/L 3.5-5.0 8362344519) AC CA IONZ (test code = 4.60 mg/dL 4.50-5.30 2621418021) GLUCOSE (test code = 108 mg/dL 70-110 0058153746) LACTIC ACID (test code 1.38 mmol/L 0.50-2.20 = 1338496951) Lab Interpretation Abnormal (test code = 22312-8) [facility] + Lactic [id number] 04:06:47 Test Item Value Reference Range Interpretation Comments PH (test code = 2) 7.35-7.45 PCO2 (test code = See_Comment L [Automate d 2679711356) message] The sy stem which generated this result transmitted reference range : 35 - 45 mmHg. The reference range was not used to interpret this result as normal/abnormal . PO2 (test code = See_Comment H [Automated 4188158702) message] The sy stem which generated this result transmitted reference range : 80 - 100 mmHg. The reference range was not used to interpret this result as normal/abnormal . HCO3 (test code = See_Comment L [Automate d 8406282103) message] The sy stem which generated this result transmitted reference range : 22 - 26 mEq/L. The reference range was not used to interpret this result as normal/abnormal . BE (test code = See_Comment L [Automated 8939243239) message] The sy stem which generated this result transmitted reference range : -3.0 - 3.0 mEq/ L. The reference r meli was not used to interpret this result as normal/abnormal . THB (test code = 9.1 g/dL 12.0-16.0 L 2354696417) %O2HB (test code = 98.7 % 94.0-99.0 5663363620) %COHB ART (test code = 0.2 % 0.0-1.5 8535531307) %METHB ART (test code = 0.3 % 0.4-1.5 L 9025751732) VOL%O2 ART (test code = 13.3 % 15.0-23.0 L 4019870519) NA (test code = 138 mmol/L 135-145 0760727351) K+ (test code = 3.5 mmol/L 3.5-5.0 2647431381) AC CA IONZ (test code = 4.60 mg/dL 4.50-5.30 1732050394) GLUCOSE (test code = 108 mg/dL 70-110 1114363021) LACTIC ACID (test code 1.38 mmol/L 0.50-2.20 = 4166805448) Lab Interpretation Abnormal (test code = 11831-8) [facility] [id number] 22:49:56 Test Item Value Reference Range Interpretation Comments ABO & RH (test code B Positive Performe d at [facility] = 20) [facility] [address] [place], [place] [id number] Free: [phone] A No. [id number] IAT (test code = Negative Performed a t [facility] 1185) Laboratory [facility] [address] [place], [place] [id number] Free: [phone] A No. [id number] [facility] [id number] 22:49:56 Test Item Value Reference Range Interpretation Comments ABO & RH (test code B Positive Performe d at [facility] = 20) [facility] Blood [address] Free: [phone] A No. [id number] IAT (test code = Negative Performed a t [facility] 1185) Laboratory [facility] [address] Free: [phone] A No. [id number] [facility] [id number] 22:49:56 Test Item Value Reference Range Interpretation Comments ABO & RH (test code B Positive Performe d at [facility] = 20) [facility] Blood [address] Free: [phone] A No. [id number] IAT (test code = Negative Performed a t [facility] 1185) Laboratory [facility] [address] Free: [phone] A No. [id number] [facility] [id number] 22:49:56 Test Item Value Reference Range Interpretation Comments ABO & RH (test code B Positive Performe d at [facility] = 20) [facility] [address] Free: [phone] A No. [id number] IAT (test code = Negative Performed a t [facility] 1185) Laboratory [facility] [address] Free: [phone] A No. [id number] [facility] WITH [id number] 16:17:23 Test Item Value Reference Range Interpretation Comments WBC (test code = See_Comment H [Automated 6690-2) message] The system which generated this result transmit palma reference range : 4.30 - 11.10 10*3/?L. The reference range was not used to interpret this result as normal/abnormal . RBC (test code = See_Comment L [Automated 789-8) message] The system which generated this result transmit palma reference range : 3.93 - 5.25 10*6/?L. The reference range was not used to interpret this result as normal/abnormal . HGB (test code = 8.8 g/dL 11.6-15 L 718-7) HCT (test code = 27.4 % 35.7-45.2 L 4544-3) MCV (test code = 89.3 fL 80.6-95.5 787-2) MCH (test code = 28.7 pg 25.9-32.8 785-6) MCHC (test code = 32.1 g/dL 31.6-35.1 786-4) RDW-SD (test code = 53.0 fL 39-49.9 H 41327-8) RDW-CV (test code = 16.3 % 12-15.5 H 788-0) PLT (test code = See_Comment H [Automated 777-3) message] The system which generated this result transmit palma reference range : 166 - 358 10*3/ ?L. The reference range was not u sed to interpret th is result as normal/abnormal . MPV (test code = 10.3 fL 9.5-12.9 93695-9) NRBC/100 WBC (test See_Comment [Automat ed code = 3799635993) message] The system which generated this result transmit palma reference range : 0.0 - 10.0 /100 WBCs. The reference range was not used to interpret this result as normal/abnormal . NRBC x10^3 (test code See_Comment [Auto mated = 2873639456) message] The system which generated this result transmit palma reference range : 10*3/?L. The reference range was not used to interpret this result as normal/abnormal . GRAN MAT (NEUT) % 71.6 % (test code = 770-8) IMM GRAN % (test code 0.60 % = 5887095071) LYMPH % (test code = 12.9 % 736-9) MONO % (test code = 10.4 % 5905-5) EOS % (test code = 4.0 % 713-8) BASO % (test code = 0.5 % 706-2) GRAN MAT x10^3(ANC) 10.42 10*3/uL 1.88-7.09 H (test code = 0843064259) IMM GRAN x10^3 (test 0.08 10*3/uL 0-0.06 H code = 3987150793) LYMPH x10^3 (test code 1.87 10*3/uL 1.32-3.29 = 731-0) MONO x10^3 (test code 1.51 10*3/uL 0.33-0.92 H = 742-7) EOS x10^3 (test code = 0.58 10*3/uL 0.03-0.39 H 711-2) BASO x10^3 (test code 0.07 10*3/uL 0.01-0.07 = 704-7) Lab Interpretation Abnormal (test code = 52198-8) [facility]. METABOLIC PANEL (11055)2022-04-20 15:45:18 Test Item Value Reference Range Interpretation Comments NA (test code = 138 mmol/L 135-145 5883550716) K (test code = 4.6 mmol/L 3.5-5 2326011119) CL (test code = 99 mmol/L 98-108 3925434825) CO2 TOTAL (test code = 25 mmol/L 23-31 3846432703) AGAP (test code = 2-16 4357637003) BUN (test code = 23 mg/dL 7-23 5724796040) GLUCOSE (test code = 129 mg/dL 70-110 H 2848104421) CREATININE (test code = 0.61 mg/dL 0.5-1.04 4414428182) TOTAL BILI (test code = 0.4 mg/dL 0.1-1.0 7230384066) CALCIUM (test code = 9.2 mg/dL 8.6-10.6 6880717685) T PROTEIN (test code = 7.3 g/dL 6.3-8.2 5415510998) ALBUMIN (test code = 3.4 g/dL 3.5-5 L 2082272436) ALK PHOS (test code = 130 U/L 34-122 H 4552422683) ALTv (test code = 15 U/L 5-35 1742-6) AST(SGOT) (test code = 26 U/L 13-40 7622012327) eGFR (test code = mL/min/1.73m2 4450300483) PARISH (test code = PARISH) Association of Glomerular Filtration Rate (GFR) and Staging of Kidney Disease* + --+ --+ ------+| GFR (mL/min/1.73 m2) ?| With Kidney Damage ?| ?Without Kidney Damage+ --------+ --------+ +| ?>90 ?| ?Stage one ?| ? Normal ?+ ---+ ---+ -------+| ?60-89 ?| ?Stage two ?| ? Decreased GFR ? + --+ --+ ------+| ?30-59 ?| ?Stage three ?| ? Stage three ? + --+ --+ ------+| ?15-29 ?| ?Stage four ? | ? Stage four ?+ ---+ ---+ -------+| ?<15 (or dialysis) ? ?| ?Stage five ? | ? Stage five ?+ ---+ ---+ -------+ *Each stage assumes the associated GFR level has been in effect for at least three months. ?Stages 1 to 5, with or without kidney disease, indicate chronic kidney disease. Notes: Determination of stages one and two (with eGFR >59mL/min/1.73 m2) requires estimation of kidney damage for at least three months as defined by structural or functional abnormalities of the kidney, manifested by either:Pathological abnormalities or Markers of kidney damage (including abnormalities in the composition of the blood or urine or abnormalities in imaging tests). Lab Interpretation Abnormal (test code = 24039-4) [facility]
[2022-05-15] MEDS ORDERED: ONDANSETRON 4 MG (ODT) TAB PO PRN (14:26)
[2022-05-15] MEDS ORDERED: IPRATROPIUM BROM 0.5MG/2.5ML NEB PRN (14:26)
[2022-05-15] MEDS ORDERED: GLUCAGON 1 MG/VIAL IM PRN (14:52)
[2022-05-15] MEDS ORDERED: D50W 25 GM/50 ML SYRINGE IV PRN (14:52)
[2022-05-15] MEDS ORDERED: D10W 125 ML IV PRN (15:07)
[2022-05-15] MEDS: HYDROCODONE/APAP 5/325 MG TAB PO PRN ×2 (15:47→20:54)
[2022-05-15] MEDS: INSULIN -REGULAR HUMAN 50 UNIT/0.5 ML ML SQ SCH ×2 (16:30→20:24)
--- NOTE | 2022-05-15 17:00 | RAD REPORT ---
EXAM DESCRIPTION: CT - Abdomen Pelvis Wo Contrast - 05/15/2022 4:46 pm CLINICAL HISTORY: Abdominal pain COMPARISON: None TECHNIQUE: Computed axial tomography of the abdomen and pelvis was obtained. IV and oral contrast we re not requested. All CT scans are performed using dose optimization technique as appropriate and may include automated exposure control or mA/KV adjustment according to patient size. FINDINGS: The evaluation of solid organs, vessels and bowel is limited secondary to the lack of con trast administration. Left sided colostomy. Left colectomy with Hilaria's pouch. No obstruction. Increased density within the subcutaneous fat left lateral abdomen and pelvis could be hematoma. No intraabdominal/pelvic hematoma. Liver, spleen, pancreas, adrenals and kidneys grossly normal. Small hiatal hernia No adnexal mass. Postsurgical changes involve the hips IMPRESSION: Postsurgical changes left colon. Increased density within the subcutaneous fat left lateral abdomen pelvis may represent hematoma. No intraabdominal/pelvic hematoma
[2022-05-15] MEDS: CEPHALEXIN 500 MG CAP PO SCH ×2 (17:26→23:51)
[2022-05-15 18:08] LABS: Specific Gravity 1.009 (1.005-1.030); Urine Bilirubin NEGATIVE (Negative); Urine Blood Trace (Negative); Urine Clarity Clear (Clear); Urine Color Colorless (Yellow); Urine Glucose NEGATIVE (Negative); Urine Protein NEGATIVE (Negative); Urine RBC <5 /HPF (None Seen); Urine Urobilinogen Normal (Normal); Urine pH 7.5 (5.0-7.0)
[2022-05-15] MEDS ORDERED: INFLUENZA VACCINE (for 6+ mo) 0.5 ML DOSE IMVAC ONE (19:00)
[2022-05-15] MEDS: CELECOXIB 100 MG CAPSULE PO SCH (20:23)
[2022-05-15] MEDS: GABAPENTIN 300 MG CAP PO SCH (20:23)
[2022-05-15] MEDS: FERROUS SULFATE 325 MG TAB PO SCH (20:24)
[2022-05-15] MEDS: DOXYCYCLINE 100 MG CAP PO SCH (20:24)
--- NOTE | 2022-05-15 22:02 | HP ---
Date of Admission: 05/15/2022 Ebxl-hg-niwn visit. Chief Complaint: Right leg and thigh weakness and pain. History Of Present Illness: Ms. Cordoba is a 72-year-old right-handed patient who was admitt ed to [facility] twice this year after surgery on both left and right hip for fractures. Sienna dunbar developed progressive abdominal pain and had a nonhealing wound in the right femur where she had to sandra replacement and imaging of both femurs, right and left showed that she had severe osteoarthritic changes in the left hip and oblique periprosthetic fracture with surrounding callus formation in the distal third of the left femoral diaphysis. In addition, there was diverticulosis identified of the large intestine. Because of the abdominal pain and discomfort, she was sent from the [facility] on 04/27/2022, where a formal diagnosis of diverticulitis of the large intestine w as made. She had a Hilaria procedure, exploratory laparotomy, sigmoidectomy, and had a colostomy pl aced and transferred to ICU. She was intubated during the surgery and briefly thereafter then transf erred out of the ICU on the 02 of May. She had a wound VAC placed in the abdominal surgical si te and was n.p.o. until she tolerated a normal diet on the 06 of May. The colostomy was revise d on the 07 of May. Because of the ongoing infection, she did remain on antibiotics intravenou sly and also strong medications for pain including Dilaudid, MS Contin, and Export. She had DVT proph ylaxis provided as well. She did note that after she recovered from surgery, she had significant edema in the right lower extr emity and shortly thereafter was unable to do hip flexion and knee extension and had decreased sensat ion around the knee and anterior thigh and leg. An MRI of the lumbosacral spine was done and that st antonette did not explain the patient's significant weakness of the right lower extremity. An MRI or CT sc an of the abdomen and pelvis is not documented as the patient's right lower extremity weakness possib ly may be related to a retroperitoneal involvement of the femoral nerve, which is often involved in t his type of surgery. At this time, a CT scan of the abdomen and pelvis will be done to rule out retr operitoneal hematoma or bleed or compromise of the right lumbosacral plexus. Past Medical And Surgical History: Asthma, COPD, esophageal reflux disease, fibromyalgia, dyslipidem ia, major depression, sleep apnea, osteoporosis, and shingles. 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 Family History: Noncontributory. Social History: No alcohol, tobacco, or IV drug use. The patient does have family support. Allergies: ALPRAZOLAM AND ZINC. Current Medications: Export 5/325 every 4 hours as needed, Celebrex 100 mg twice daily, Keflex 500 mg every 6 hours, vibramycin 100 mg every 12 hours, ferrous sulfate 325 mg 3 times, gabapentin 300 mg t wice daily and she is on a mild insulin sliding scale, Zofran 4 mg every 6 hours as needed, Protonix 40 mg daily, potassium bicarbonate 25 mEq daily, and tramadol 50 mg every 4 hours as needed. Laboratory Studies: White blood cell count 10.5, hemoglobin 7.3, hematocrit 22.7, and platelets 606. Sodium 137, potassium 4.2, glucose 81, BUN 13, creatinine 0.6, calcium 8. X-ray Imaging: A CT of the femur on the left with contrast showed no soft tissue or muscular fluid c ollection. There is no clear finding of osteomyelitis. There are postop changes of the left femur. Hardware intact. There is oblique periprosthetic fracture with surrounding callus across the distal third of the femoral diaphysis with severe osteoarthritic changes of the left hip joint. There is d iverticulosis. CT of the right femur with contrast showed minimal increase in size of a multiloculat ed fluid collection posterior to the knee measuring 3 x 2.6 cm, likely representing a complex Child c yst. There were changes of right total hip arthroplasty with long-stem prosthesis without overlying complications. There was right femoral reconstruction, right hip hemiarthroplasty with stable [facility] ent. Also MRI of the lumbar spine without contrast showed multilevel spondylosis of the lumbar spine , mild dextroscoliosis without high-grade spinal canal or stenosis at any level. There was moderate L2-L3 neural foramina narrowing. Review of Systems: Ms. Cordoba reports marked weakness of the right lower extremity and unable to bend the knee upwards or extend the leg. She does have some plantar flexion of the right lower extremity and there is some p ain radiating from the right back and the right lower extremity down towards the foot. She does feel diffusely weak otherwise and has some myalgias and arthralgias. Denies any rash, any headache, or a ny psychiatric issues. No genitourinary or gastrointestinal issues. Physical Examination: Vital Signs: Blood pressure 100/55, pulse 83, respiratory rate 16, temperature 97.7, oxygen saturati on 99%. General: Ms. Cordoba is resting comfortably in bed. She is in slight distress due to right lower extr emity pain, but earlier in the day the pain was rated 4. HEENT: She is otherwise normocephalic, atraumatic. Sclerae anicteric. Oropharynx is moist and pink . Neck: Supple. Chest: Clear. Heart: Regular. Extremities: There is mild edema in the right lower extremity compared to the left side. She has no obvious drainage at her surgical site. In terms of her strength in the right lower extremity, hip f lexion at this point is 0, knee extension 0, foot dorsiflexion trace of 1/5, plantar flexion around 3 to 4/5, unable to invert and teressa the right foot. On the left, she has proximally and distally 4/5 upper extremities, 4/5 diffuse weakness, mild decrease in sensation in the right L3-L4 distribution and also towards L5 distribution on the right side, otherwise intact. Current Level Functioning: Currently bed mobility is moderate with maximum assistance, max assistanc e for transfers and upper and lower body dressing. She is unable to bear any weight on the right low er extremity due to severe weakness and total assist with the lift being required for those transfers , max assist also for shower. Assessment And Plan: Ms. Cordoba is a 72-year-old patient with diverticulitis, which was complicated b y multiple surgeries involving right and left hip, in addition to a likely proximal femoral neuropath y, perhaps above the inguinal ligament on the right causing significant weakness in the right lower e xtremity proximally and distally. She has as noted above, extensive comorbidities including multiple infections requiring long-term antibiotics and she currently is on antibiotics. She also has a woun d VAC in place. She has osteoporosis, depression, dyslipidemia, fibromyalgia, gastroesophageal reflu x disease, and multiple surgeries as noted in the right and left femur earlier this year. Her rehabi litation impairment group is 20 miscellaneous, her etiologic diagnosis is 16, which is debility. Sec ondary diagnoses include the right femoral above the knee neuropathy with significant right lower ext remity weakness. She has a colostomy, bandemia, wound infection, osteoarthritis, left and right belo w the knee pain, trochanteric bursitis of the left hip. Risks of complication to include further inf ection, bleeding, sepsis, uncontrolled pain, falling, respiratory failure, aspiration, wheezing, pote ntial for pneumonia as noted, loss of consciousness, , and also fatigue. Barriers To Discharge: As noted, she has a colostomy and wound VAC and she will have Wound Care to a ssist. She does have significant femoral neuropathy likely above the inguinal ligament on the right. It will be evaluated with a CT scan with no contrast of abdomen and pelvis. If there is edema with compression, that has a better prognosis than if there is significant injury to the femoral nerve. She has been debilitated and given the length of time she is in hospital for over 2 weeks, without mu ch mobilization, also she would be at risk of aspiration pneumonia, of deep vein thrombosis, of urina ry tract infection, of sepsis. Estimated Length Of Stay: Around 14 days. Disposition: Depending on progress or return of functioning of the right lower extremity strength, s he may require long-term. If, however, she does begin to have return of function in the right lower extremity, there is a possibility she may be able to be home with Home Health. Prognosis is fa ir at this point. Rehabilitation Goals: 1.To be able to transfer with modified independence, perhaps using a sliding board from bed to chair to commode, to shower. Also to be able to mobilize at this point, perhaps with wheelchair with supe rvision at hospital distances. 2.To be able to perform ADLs such as dressing upper and lower body, donning and doffing shoes with s upervision. The goals were discussed with the patient and she is in agreement. I acknowledge that I personally p erformed a full physical examination on Ms. Cordoba and this was within 3 hours of arrival on the floor and determined that she is able to tolerate a course of therapy, which will include up to 3 hours a day, 5 of 7 days and up to a 6 day depending on availability and this is of intensive physical and oc cupational therapy. It is expected that an individualized plan of care will be completed by day 4 ba sed on the pre-admission screen, history and physical, and therapeutic evaluation. ANMOL Voice ID: [id number]
[2022-05-16] MEDS: TRAMADOL HCL 50 MG TAB PO PRN ×2 (00:15→20:38)
[2022-05-16] MEDS: HYDROCODONE/APAP 5/325 MG TAB PO PRN ×5 (01:35→21:58)
[2022-05-16] MEDS: CEPHALEXIN 500 MG CAP PO SCH ×3 (05:10→17:00)
[2022-05-16] MEDS: PANTOPRAZOLE 40MG TABLET PO SCH (05:10)
[2022-05-16 05:44] LABS: Absolute Lymphocytes (CBC) 1.8 K/uL (0.7-4.9); Hematocrit 26.2 % (36.0-45.0); MCV 86.1 fL (80-100); MPV 8.1 fL (7.6-11.3); RBC Red Blood Cell Count 3.04 M/uL (3.86-4.86)
[2022-05-16 05:59] LABS: Albumin 1.9 g/dL (3.4-5.0); Magnesium 2.1 mg/dL (1.8-2.4); Prealbumin 14.2 mg/dL (20-40)
[2022-05-16] MEDS: INSULIN -REGULAR HUMAN 50 UNIT/0.5 ML ML SQ SCH ×4 (07:30→20:13)
[2022-05-16] MEDS: GABAPENTIN 300 MG CAP PO SCH ×2 (08:28→19:33)
[2022-05-16] MEDS: DOXYCYCLINE 100 MG CAP PO SCH ×2 (08:28→19:32)
[2022-05-16] MEDS: CELECOXIB 100 MG CAPSULE PO SCH ×2 (08:28→19:33)
[2022-05-16] MEDS: FERROUS SULFATE 325 MG TAB PO SCH ×3 (09:34→19:33)
[2022-05-16] MEDS: POTASSIUM 25 MEQ EFFERV TAB PO SCH (09:34)
[2022-05-16] MEDS: APIXABAN 2.5 MG TABLET PO SCH (19:33)
[2022-05-16] MEDS: AMINO ACIDS/PROTEIN HYDROLYS 30 ML LIQUID.PKT PO SCH (19:34)
[2022-05-16] MEDS: BACLOFEN 10 MG TAB PO PRN (21:01)
[2022-05-17] MEDS: CEPHALEXIN 500 MG CAP PO SCH ×4 (00:04→17:05)
[2022-05-17] MEDS: TRAMADOL HCL 50 MG TAB PO PRN ×3 (00:06→15:04)
[2022-05-17] MEDS: HYDROCODONE/APAP 5/325 MG TAB PO PRN ×6 (01:51→21:18)
[2022-05-17] MEDS: PANTOPRAZOLE 40MG TABLET PO SCH (05:20)
[2022-05-17] MEDS: INSULIN -REGULAR HUMAN 50 UNIT/0.5 ML ML SQ SCH ×4 (07:30→20:33)
[2022-05-17] MEDS: AMINO ACIDS/PROTEIN HYDROLYS 30 ML LIQUID.PKT PO SCH ×2 (08:00→20:35)
[2022-05-17] MEDS: POTASSIUM 25 MEQ EFFERV TAB PO SCH (08:00)
[2022-05-17] MEDS: APIXABAN 2.5 MG TABLET PO SCH ×2 (08:02→20:34)
[2022-05-17] MEDS: GABAPENTIN 300 MG CAP PO SCH ×2 (08:31→20:34)
[2022-05-17] MEDS: FERROUS SULFATE 325 MG TAB PO SCH ×3 (08:31→20:34)
[2022-05-17] MEDS: DOXYCYCLINE 100 MG CAP PO SCH ×2 (08:31→20:34)
[2022-05-17] MEDS: CELECOXIB 100 MG CAPSULE PO SCH ×2 (08:31→20:34)
[2022-05-17] MEDS: BACLOFEN 10 MG TAB PO PRN (10:36)
[2022-05-17] MEDS: DOCUSATE NA/SENNA CONC 1 TAB PO SCH (20:34)
[2022-05-17] MEDS: ENSURE ENLIVE 237 ML CAN PO SCH (20:35)
[2022-05-17] MEDS: MAGNESIUM OXIDE 400 MG TAB PO SCH (20:35)
[2022-05-18] MEDS: CEPHALEXIN 500 MG CAP PO SCH ×5 (00:04→23:22)
[2022-05-18] MEDS: HYDROCODONE/APAP 5/325 MG TAB PO PRN ×6 (01:44→22:42)
[2022-05-18 04:25] LABS: Absolute Lymphocytes (CBC) 1.9 K/uL (0.7-4.9); Hematocrit 23.8 % (36.0-45.0); Lymphocytes % 24.5 % (15.3-44.8); MCV 87.1 fL (80-100); MPV 8.2 fL (7.6-11.3); RBC Red Blood Cell Count 2.73 M/uL (3.86-4.86)
[2022-05-18 04:44] LABS: Potassium 3.9 mmol/L (3.5-5.1)
[2022-05-18] MEDS: PANTOPRAZOLE 40MG TABLET PO SCH (05:35)
[2022-05-18] MEDS: INSULIN -REGULAR HUMAN 50 UNIT/0.5 ML ML SQ SCH ×3 (07:07→20:00)
[2022-05-18] MEDS: BACLOFEN 10 MG TAB PO PRN ×2 (07:42→21:05)
[2022-05-18] MEDS: TRAMADOL HCL 50 MG TAB PO PRN ×3 (07:43→21:04)
[2022-05-18] MEDS: CELECOXIB 100 MG CAPSULE PO SCH ×2 (07:44→20:22)
[2022-05-18] MEDS: DOXYCYCLINE 100 MG CAP PO SCH ×2 (07:44→20:22)
[2022-05-18] MEDS: GABAPENTIN 300 MG CAP PO SCH (07:45)
[2022-05-18] MEDS: MAGNESIUM OXIDE 400 MG TAB PO SCH ×2 (07:45→20:22)
[2022-05-18] MEDS: APIXABAN 2.5 MG TABLET PO SCH ×2 (07:45→20:23)
[2022-05-18] MEDS: AMINO ACIDS/PROTEIN HYDROLYS 30 ML LIQUID.PKT PO SCH ×2 (08:00→20:00)
[2022-05-18] MEDS: POTASSIUM 25 MEQ EFFERV TAB PO SCH (08:42)
[2022-05-18] MEDS: ENSURE ENLIVE 237 ML CAN PO SCH ×2 (08:43→20:24)
[2022-05-18] MEDS ORDERED: IPRATROPIUM BROM 0.5MG/2.5ML NEB PRN (09:00)
[2022-05-18] MEDS: FERROUS SULFATE 325 MG TAB PO SCH ×3 (09:31→20:23)
[2022-05-18] MEDS ORDERED: GABAPENTIN 300 MG CAP PO SCH (20:00)
[2022-05-18] MEDS: DOCUSATE NA/SENNA CONC 1 TAB PO SCH (20:22)
[2022-05-18] MEDS ORDERED: GABAPENTIN 300 MG CAP PO ONE (22:44)
--- NOTE | 2022-05-18 23:21 | PN ---
This is a qflj-gq-gykj visit with the patient, Carolyn Cordoba. Subjective: Ms. Cordoba is doing fair today. She did have some significant pain, which is addressed w ith pain medications and have been improved. She still has ongoing right lower extremity weakness, w hich was noted after surgery. She did have CT scan of the abdomen and pelvis done on the 4th to eval uate the possibility of a femoral nerve or right brachial plexus compression following surgery, which led to the weakness in the right lower extremity. The study identified increased density of the sub cutaneous far left lateral abdominal pelvis, which may represent a hematoma and the postsurgical hewitt ges were noted in the left colon. Note, the right side is where she has more weakness and inability to lift the knee and extend the leg. Review of Systems: As noted, some ongoing weakness in the right lower extremity and some pain in the right hip radiating down the right lateral thigh into the leg and foot. Otherwise, no fevers or chills. Some arthralgi as and myalgias as noted. No rash. No psychiatric issues. Physical Examination: Vital Signs: Blood pressure 103/57, pulse 83, respiratory rate 16, temperature 97.8. General: Ms. Cordoba is resting in bed. Pain varies from 0 to max of 8 today. Currently, pain level of 0. HEENT: She is normocephalic, atraumatic. Sclerae anicteric. Oropharynx moist. Neck: Supple. Chest: Clear. Heart: Regular. Abdomen: Soft. Extremities: She has trace edema in the lower extremities and especially more on the right compared to left side. Weakness ongoing in the right lower extremity rated around 2/5, more proximally than d istally where it is about 3/5. Laboratory Studies: White blood cell count 7.8, hemoglobin 8.0, hematocrit 23.8, and platelets 424. The electrolytes are normal. Creatinine 0.48, glucose ranged from 87-106, calcium 9.0. Urine cultu re showed no growth. Imaging: The CT of the abdomen and pelvis as described above showing the fluid collection in the far left abdominal area, likely a hematoma. Medications: [place] 5/325 one every 4 hours as needed. She has protein supplementation 30 mL twice d aily, Eliquis 2.5 mg twice daily, baclofen 5 mg twice daily, Celebrex 100 mg twice daily, Keflex 500 mg every 6 hours, vibramycin 100 mg twice daily. She was seen by the Wound Care Service and they are putting MediHoney on wounds she has on the right and left lower extremities as well as the area wher e there was a wound VAC, which was now removed on recommendations of wound care and is treated with w et-to-dry dressing. She has ferrous sulfate 325 mg twice daily for anemia, gabapentin 600 mg twice d aily for neuropathic related pain, Atrovent 0.5 mg every 6 hours for nebulizers, magnesium oxide 400 mg twice daily, Ensure 237 mL twice daily, Zofran 4 mg every 6 hours as needed, Protonix 40 mg daily, potassium 25 mEq daily, Senokot-S 1 tablet at bedtime, and tramadol 100 mg every 4 hours as needed. Current Functional Status: Currently she is at contact guard assistance with multiple supine to sit transfers. She did struggle to advance the right lower extremity due to significant weakness as note d. She did require maximal assistance to perform sit to supine transfers due to difficulty lifting t he right lower extremity. Progress towards rehabilitation goals: She is making fair progress although significant limitation i ncludes the weakness of the right lower extremity, noted after her abdominal surgery. She has comorb idities of anemia, malnutrition, GE reflux, diabetes mellitus, abdominal infection and she is on curr ent antibiotics, vibramycin and has risk of deep vein thrombosis and is on Eliquis and muscle spasms on muscle relaxant in addition to Celebrex for antiinflammatory treatment. Assessment And Plan: Ms. Cordoba is a 72-year-old patient who was admitted with debility. She has col ostomy, colectomy revised. She has a wound VAC that has now been removed and she has wet-to-dry dres sings there. She has other areas of breakdown in her lower extremities that are managed with help of the Wound Care Service. She has deep vein thrombosis risk addressed by Eliquis, anemia as noted abo ve, pain management as noted above and she does have significant weakness in the right lower extremit y, potentially related to a femoral nerve entrapment perhaps around time of surgery, which is causing significant right lower extremity weakness. Comorbidities that continue to impact rehab progress: Significant right lower extremity weakness, li neema femoral nerve involvement, perhaps above the inguinal ligament at the time of surgery, making it difficult to lift the knee and extend the legs. Otherwise, her comorbidities are being managed by ranjan dee as noted above. MALLIKA/FELIPE Voice ID: [id number] Report ID: [id number]
[2022-05-19] MEDS: CEPHALEXIN 500 MG CAP PO SCH ×3 (05:28→17:13)
[2022-05-19] MEDS: PANTOPRAZOLE 40MG TABLET PO SCH (05:28)
[2022-05-19] MEDS: POTASSIUM 25 MEQ EFFERV TAB PO SCH (07:55)
[2022-05-19] MEDS: LIDOCAINE 4% PATCH TOP SCH (07:55)
[2022-05-19] MEDS: CELECOXIB 100 MG CAPSULE PO SCH ×2 (07:56→19:38)
[2022-05-19] MEDS: DOXYCYCLINE 100 MG CAP PO SCH ×2 (07:56→19:38)
[2022-05-19] MEDS: APIXABAN 2.5 MG TABLET PO SCH ×2 (07:56→19:38)
[2022-05-19] MEDS: FERROUS SULFATE 325 MG TAB PO SCH ×3 (07:56→19:38)
[2022-05-19] MEDS: MAGNESIUM OXIDE 400 MG TAB PO SCH ×2 (07:56→19:38)
[2022-05-19] MEDS: ENSURE ENLIVE 237 ML CAN PO SCH ×2 (07:57→19:43)
[2022-05-19] MEDS: GABAPENTIN 300 MG CAP PO SCH ×2 (07:57→19:38)
[2022-05-19] MEDS: INSULIN -REGULAR HUMAN 50 UNIT/0.5 ML ML SQ SCH ×2 (07:58→20:00)
[2022-05-19] MEDS: AMINO ACIDS/PROTEIN HYDROLYS 30 ML LIQUID.PKT PO SCH ×2 (07:58→19:39)
[2022-05-19] MEDS: HYDROCODONE/APAP 5/325 MG TAB PO PRN ×4 (08:12→22:05)
--- NOTE | 2022-05-19 14:40 | P.CNS ---
Date of Consult: 05/19/22 PC: I was asked to see this 72-year-old female in regards to her multiple wounds and recent colostomy. HPC: Patient underwent a recent colostomy with Gilmore's pouch. Apparently involved so involved a revision, and application of a wound VAC. She has some pain on the left side of her abdomen consistent with possible subcutaneous e xtraperitoneal hematoma. PSHx: Previous surgery on hips, chronic osteomyelitis of her femurs PMHx: CAD Social Hx: Lives at home by herself, Sys R: States she has been doing fine, until her sudden onset of pain a few weeks ago. She is at this facility for rehab. O/E: Awake alert vital signs stable HEENT: Within normal limits Chest: Chest movement equal bilaterally Abd: Healing surgical wound, colostomy appears to be somewhat retracted, appliance needs to be attended to. [place]: Her chronic wounds actually look fairly well at this time Impression: This patient, who underwent an emergent procedure for sigmoid diverticulitis necessitating colostomy, is at our facility for rehab. I have been asked to help with the wound care. I will follow along with her. Wound care will be up to address some colostomy issues. This ostomy is retracted at the moment, but appears viable. Plan: Continue current therapy.
[2022-05-19] MEDS: CRANBERRY FRUIT EXTRACT 200 MG CAP PO SCH (19:37)
[2022-05-19] MEDS: MEDIHONEY 44 ML TOPICAL TUBE TOP SCH (22:10)
--- NOTE | 2022-05-19 22:27 | PN ---
Date of Progress Note: 05/19/2022 This is a aowx-dt-lglb visit on patient, Carolyn Cordoba. Subjective: Ms. Cordoba reports significant pain in the right lower extremity. She is receiving multi ple medications, but still has significant pain there and she did have a visit from Dr. Ricardo Fisher , the general surgeon. He noted she did go undergo emergency procedure with sigmoid diverticulitis w ith colostomy and he addressed her colostomy issues. He said it was retracted, but appears viable an d to continue therapy. Review of Systems: She reports again pain in the right lower extremity and ongoing weakness since her surgery with very little movement distally, really unable to move except it holds slightly, could not dorsiflex or plan tar flex the right foot, but not necessarily bend at the knee and lift at the waist the thigh. Objective: Vital Signs: Blood pressure 110/55, pulse 68, respiratory rate 18, temperature 97.8. Skin: As noted, her significant findings are wound intact in the abdominal colostomy area with vacuu m now removed. Extremities: She does have around 1-2 strength proximally in the right lower extremity and 0-1 in th e distal right lower extremity. Decreased sensation in the right compared to left lower extremity. Otherwise, upper extremities with mild diffuse weakness noted at 4/5. Laboratory Studies: Blood sugars ranged 96-104. X-ray Imaging: No new x-ray imaging. Medications: Unchanged and as noted she is on Eliquis, baclofen, Celebrex, Keflex, vibramycin, jones us sulfate, gabapentin, glucagon, lidocaine patch, magnesium oxide 400 b.i.d., Protonix, Senokot, pot assium replacement, Zofran, and tramadol. Current Functional Status: Currently she did multiple supine to sit transfers with contact guard to standby assistance. She was able to get out of bed with contact guard to standby assistance. She di d stand and pivot transfers with minimum to moderate assistance. She required maximal assistance to do sit to supine transfers. She self propelled the wheelchair 250 feet with bilateral upper extremit ies with standby assistance. Progress towards rehabilitation goals: She is making fair progress, but is significantly limited wit h her right lower extremity marked weakness. 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 Otherwise, she is mobilizing well especially when in the wheelchair, but does require max assist with transfers. Assessment: Ms. Cordoba is a 72-year-old patient with diverticulitis and treated with colostomy, colec evelyn, and wound VAC now removed. She has significant right lower extremity weakness likely due to co mpression of the femoral nerve above the inguinal ligament. Her comorbid conditions do include signi ficant pain, peripheral neuropathic pain, infection at multiple sites, muscle spasms, malnutrition, a nd anemia. Those are addressed as indicated with medications above and of course physical and occupa tional therapy will continue aggressively. Comorbidities that continue impacting her rehabilitation process do include the significant right lower extremity weakness, which has not improved much since coming to the rehabilitation unit. She has comorbidities as noted that were addressed, but not signi ficantly impacting her rehab stay negatively. MALLIKA/FELIPE Voice ID: [id number] Report ID: [id number]
[2022-05-20] MEDS: CEPHALEXIN 500 MG CAP PO SCH ×4 (00:07→18:32)
[2022-05-20] MEDS: PANTOPRAZOLE 40MG TABLET PO SCH (06:30)
[2022-05-20] MEDS: INSULIN -REGULAR HUMAN 50 UNIT/0.5 ML ML SQ SCH ×2 (07:29→20:00)
[2022-05-20] MEDS: AMINO ACIDS/PROTEIN HYDROLYS 30 ML LIQUID.PKT PO SCH ×2 (08:00→20:19)
[2022-05-20] MEDS: LIDOCAINE 4% PATCH TOP SCH (08:16)
[2022-05-20] MEDS: FERROUS SULFATE 325 MG TAB PO SCH ×3 (08:17→19:56)
[2022-05-20] MEDS: APIXABAN 2.5 MG TABLET PO SCH ×2 (08:18→19:56)
[2022-05-20] MEDS: GABAPENTIN 300 MG CAP PO SCH ×2 (08:18→19:56)
[2022-05-20] MEDS: DOXYCYCLINE 100 MG CAP PO SCH ×2 (08:18→19:56)
[2022-05-20] MEDS: CELECOXIB 100 MG CAPSULE PO SCH ×2 (08:18→19:56)
[2022-05-20] MEDS: CRANBERRY FRUIT EXTRACT 200 MG CAP PO SCH ×2 (08:19→19:56)
[2022-05-20] MEDS: POTASSIUM 25 MEQ EFFERV TAB PO SCH (08:19)
[2022-05-20] MEDS: HYDROCODONE/APAP 5/325 MG TAB PO PRN ×4 (08:52→19:57)
[2022-05-20] MEDS: MEDIHONEY 44 ML TOPICAL TUBE TOP SCH (08:53)
[2022-05-20] MEDS: MAGNESIUM OXIDE 400 MG TAB PO SCH ×2 (08:53→19:56)
[2022-05-20] MEDS: ENSURE ENLIVE 237 ML CAN PO SCH ×2 (08:53→20:19)
[2022-05-20] MEDS: BACLOFEN 10 MG TAB PO PRN ×2 (11:13→22:14)
[2022-05-20] MEDS: TRAMADOL HCL 50 MG TAB PO PRN (11:13)
[2022-05-20] MEDS: DOCUSATE NA/SENNA CONC 1 TAB PO SCH (19:56)
[2022-05-21] MEDS: HYDROCODONE/APAP 5/325 MG TAB PO PRN ×6 (00:03→21:38)
[2022-05-21] MEDS: CEPHALEXIN 500 MG CAP PO SCH ×5 (00:03→23:56)
--- NOTE | 2022-05-21 00:30 | PN ---
Usoz-rc-fkif progress note. Subjective: Ms. Cordoba denies any significant change in her right lower extremity weakness. There is some more pain radiating in the same distribution. She does have some swelling and some drainage no palma at the right lateral leg surgical site that has been cultured. I spoke with the patient's daught er, who was requesting she be restarted on her intravenous antibiotics that she was placed on while a t [facility] in [place]. Our nurse will contact them to determine what she was on. The worry is that the right thigh drainage may represent a reinfection, which the patient actually had that led to her hos pitalization at [facility]. She is currently on oral antibiotics. Again, culture taken and the G gume stain and sensitivities are pending. Review of Systems: As noted pain in the right hip, significant weakness in the right proximal and distal lower extremity , not significantly improved and with some arthralgias in the upper extremities. No fevers or chills . Laboratory Studies: Blood sugars range from 77-107. X-ray Imaging: No new x-rays and imaging. Medications: She continues Eliquis 2.5 mg twice daily, baclofen, celecoxib, Keflex 500 mg every 6 ho urs, vibramycin 100 mg every 12 hours, MediHoney to the wound, ferrous sulfate, gabapentin, glucagon, Senokot, Protonix, Zofran, and magnesium oxide. Current Functional Status: Currently bed mobility performed with standby to contact guard assistance . Supine transfers with contact guard assistance using a leg dining chair seat cushion trimmer. She did do stand and pivot tra nsfers with moderate assistance using a rolling walker and sit to supine transfers with maximal raeann tance. Progress towards rehabilitation goals: She is making at this point, more than fair progress overall, given the significant right lower extremity weakness. Now there is a drainage at the right hip surg ical site, cultures are pending and there is a lot more subcutaneous fluid noted. Assessment: Ms. Cordoba is a 72-year-old patient with diverticulitis. She had colostomy, colectomy, a nd wound VAC. She has significant right lower extremity weakness, possibly related to femoral neurop athy above the inguinal ligament. She has more drainage on the right lateral surgical site. Culture s are pending. She is on multiple antibiotics. However, she may have to be an IV antibiotics. The patient was apparently a hard stick prior to coming in and she may be a central line placed for IV an tibiotics to continue. She has malnutrition and anemia addressed with medications and nutritional monterroso pplement as appropriate. She does have DVT prophylaxis on board. ANMOL Voice ID: [id number] Report ID: [id number]
[2022-05-21 04:30] LABS: Absolute Lymphocytes (CBC) 2.5 K/uL (0.7-4.9); Hematocrit 24.3 % (36.0-45.0); MCV 86.7 fL (80-100); MPV 8.7 fL (7.6-11.3); RBC Red Blood Cell Count 2.81 M/uL (3.86-4.86)
[2022-05-21 04:54] LABS: Albumin 2.1 g/dL (3.4-5.0); Magnesium 2.2 mg/dL (1.8-2.4); Potassium 4.2 mmol/L (3.5-5.1); Prealbumin 12.8 mg/dL (20-40)
[2022-05-21] MEDS: PANTOPRAZOLE 40MG TABLET PO SCH (05:19)
[2022-05-21] MEDS: TRAMADOL HCL 50 MG TAB PO PRN ×2 (07:01→20:21)
[2022-05-21] MEDS: GABAPENTIN 300 MG CAP PO SCH ×2 (07:16→20:08)
[2022-05-21] MEDS: APIXABAN 2.5 MG TABLET PO SCH ×2 (07:17→20:08)
[2022-05-21] MEDS: INSULIN -REGULAR HUMAN 50 UNIT/0.5 ML ML SQ SCH ×2 (08:00→20:00)
[2022-05-21] MEDS: POTASSIUM 25 MEQ EFFERV TAB PO SCH (08:00)
[2022-05-21] MEDS: AMINO ACIDS/PROTEIN HYDROLYS 30 ML LIQUID.PKT PO SCH ×2 (08:00→20:10)
[2022-05-21] MEDS: LIDOCAINE 4% PATCH TOP SCH (08:30)
[2022-05-21] MEDS: CELECOXIB 100 MG CAPSULE PO SCH ×2 (08:31→20:08)
[2022-05-21] MEDS: CRANBERRY FRUIT EXTRACT 200 MG CAP PO SCH ×2 (08:31→20:08)
[2022-05-21] MEDS: FERROUS SULFATE 325 MG TAB PO SCH ×3 (08:32→20:08)
[2022-05-21] MEDS: DOXYCYCLINE 100 MG CAP PO SCH ×2 (08:32→20:08)
[2022-05-21] MEDS: ENSURE ENLIVE 237 ML CAN PO SCH ×2 (09:28→20:10)
[2022-05-21] MEDS: MAGNESIUM OXIDE 400 MG TAB PO SCH ×2 (09:28→20:09)
[2022-05-21] MEDS: MEDIHONEY 44 ML TOPICAL TUBE TOP SCH (09:29)
[2022-05-21] MEDS ORDERED: HYDROCORTISONE 1 % CREAM 30GM TOP PRN (11:23)
[2022-05-21] MEDS: BACLOFEN 10 MG TAB PO PRN ×2 (14:17→22:30)
[2022-05-21] MEDS: DOCUSATE NA/SENNA CONC 1 TAB PO SCH (20:07)
--- NOTE | 2022-05-21 23:50 | PN ---
Subjective: Ms. Cordoba is reporting some improvement in the right lower extremity weakness today. He r pain is also slightly improved. She has less drainage from the right thigh surgical site. Dr. Darrin chisholm was in the room at the time of my visit and he looked at the wound and noted that he thought it looked as good as it could be. She is on oral antibiotics and does not believe that her infection is any worse and only oral antibiotics are needed. The patient's family did request that IV antibiotic s be started; however, he is not in favor of that. White blood cell count was actually normal today and normal ever since admission, it is 8.8. She does continue to have significant anemia, hemoglobin 8.1. Otherwise on review of systems, no other positives noted. Physical Examination: Vital Signs: Blood pressure 115/57, pulse 63, respiratory rate 16-18, temperature 97, oxygen saturat ion 96%. General: Ms. Cordoba is resting in bed. No significant distress. Extremities: She does have some more movement though slight in terms of right knee elevation around 2/5, still no right foot elevation or dorsiflexion noted. There is some plantar flexion and downward curling of the right toe. Sensation is still decreased in the right lower extremity compared to the left side. Laboratory Studies: Her prealbumin is 12.8, creatinine 0.53, glucose ranged from 82 up to 92. White blood cell count 8.8, hemoglobin 8.1. X-ray Imaging: No new x-rays or imaging. Medications: Have not changed and similar to yesterday as noted. Current Functional Status: Currently, Ms. Cordoba did static standing balance activity with contact gu kavya assistance. She performs oay-yh-bcxwt transfers with contact guard to minimum assistance. Sit-t o-supine transfers with moderate assistance. She did participate in gait training in the [facility], able to ambulate about 8 feet 3 times with minimal assistance and she self propelled the wheelcha ir 250 feet and 120 feet independently. Progress towards rehabilitation goals: She is making fair overall progress given her limitation of s ignificant right lower extremity weakness and numbness. Assessment And Plan: Ms. Cordoba is a 72-year-old patient with diverticulitis. She received a colosto my, colectomy and reversal with wound VAC, now removed, and she has significant right lower extremity weakness likely due to compression of the femoral nerve above the inguinal ligament potentially duri ng surgical manipulation. She does have significant pain, peripheral neuropathy, ongoing infection, muscle spasms, malnutrition and anemia and those are addressed by medications as noted. Comorbiditie s that continue to impact rehabilitation process are she again has significant weakness of right lowe r extremity and she is on antibiotics for infection, which has improved. She has significant anemia and malnutrition and those are addressed as well. LB/MODL Voice ID: [id number] Report ID: [id number]
[2022-05-22] MEDS: TRAMADOL HCL 50 MG TAB PO PRN ×2 (00:01→20:10)
[2022-05-22] MEDS: HYDROCODONE/APAP 5/325 MG TAB PO PRN ×3 (02:01→10:00)
[2022-05-22] MEDS: CEPHALEXIN 500 MG CAP PO SCH ×4 (05:37→23:48)
[2022-05-22] MEDS: PANTOPRAZOLE 40MG TABLET PO SCH (05:37)
[2022-05-22] MEDS: AMINO ACIDS/PROTEIN HYDROLYS 30 ML LIQUID.PKT PO SCH ×2 (08:00→20:00)
[2022-05-22] MEDS ORDERED: ENSURE HIGH PROTEIN 237 ML CAN PO SCH (08:00)
[2022-05-22] MEDS: INSULIN -REGULAR HUMAN 50 UNIT/0.5 ML ML SQ SCH ×2 (08:00→20:00)
[2022-05-22] MEDS: CRANBERRY FRUIT EXTRACT 200 MG CAP PO SCH ×2 (08:31→20:07)
[2022-05-22] MEDS: APIXABAN 2.5 MG TABLET PO SCH ×2 (08:32→20:06)
[2022-05-22] MEDS: DOXYCYCLINE 100 MG CAP PO SCH ×2 (08:32→20:09)
[2022-05-22] MEDS: FERROUS SULFATE 325 MG TAB PO SCH ×3 (08:32→20:09)
[2022-05-22] MEDS: POTASSIUM 25 MEQ EFFERV TAB PO SCH (08:32)
[2022-05-22] MEDS: GABAPENTIN 300 MG CAP PO SCH ×2 (08:32→20:08)
[2022-05-22] MEDS: CELECOXIB 100 MG CAPSULE PO SCH ×2 (08:33→20:07)
--- NOTE | 2022-05-22 08:39 | P.RH.PN ---
Estimated Length of Stay: 15 Expected Discharge Date: 05/29/22 Discharge Disposition Plan: Home Family Support: Yes Care Home Goal: Mobility, Transfers, Self Care Vital Signs: Last Vital Signs Temp 97.4 F 05/22/22 07:12 Pulse 62 05/22/22 07:12 Resp 18 05/22/22 07:13 BP 105/53 L 05/22/22 07:12 Pulse Ox 97 05/22/22 07:13 Laboratory: Laboratory Last Values WBC 8.80 K/uL (4.3-10.9) 05/21/22 04:00 RBC 2.81 M/uL (3.86-4.86) L 05/21/22 04:00 Hgb 8.1 g/dL (12.0-15.0) L 05/21/22 04:00 Hct 24.3 % (36.0-45.0) L 05/21/22 04:00 MCV 86.7 fL (80-100) 05/21/22 04:00 MCH 29.0 pg (27.0-35.0) 05/21/22 04:00 MCHC 33.4 g/dL (32.0-36.0) 05/21/22 04:00 RDW 18.2 % (12.1-15.2) H 05/21/22 04:00 Plt Count 463 K/uL (152-406) H 05/21/22 04:00 MPV 8.7 fL (7.6-11.3) 05/21/22 04:00 Neutrophils % 53.7 % (41.7-73.7) 05/21/22 04:00 Lymphocytes % 28.0 % (15.3-44.8) 05/21/22 04:00 Monocytes % 13.3 % (3.3-12.3) H 05/21/22 04:00 Eosinophils % 4.8 % (0-4.4) H 05/21/22 04:00 Basophils % 0.2 % (0-1.3) 05/21/22 04:00 Absolute Neutrophils 4.7 K/uL (1.8-8.0) 05/21/22 04:00 Absolute Lymphocytes 2.5 K/uL (0.7-4.9) 05/21/22 04:00 Absolute Monocytes 1.2 K/uL (0.1-1.3) 05/21/22 04:00 Absolute Eosinophils 0.4 K/uL (0-0.5) 05/21/22 04:00 Absolute Basophils 0.0 K/uL (0-0.5) 05/21/22 04:00 Sodium 139 mmol/L (136-145) 05/21/22 04:00 Potassium 4.2 mmol/L (3.5-5.1) 05/21/22 04:00 Chloride 105 mmol/L (98-107) 05/21/22 04:00 Carbon Dioxide 27 mmol/L (21-32) 05/21/22 04:00 Anion Gap 11.2 mEq/L (5.0-15.0) 05/21/22 04:00 BUN 17 mg/dL (7-18) 05/21/22 04:00 Creatinine 0.53 mg/dL (0.55-1.3) L 05/21/22 04:00 Est GFR (CKD-EPI) 99 ml/min (=/>90) 05/21/22 04:00 Glucose 92 mg/dL (74-106) 05/21/22 04:00 POC Glucose 91 mg/dL (65-120) 05/22/22 07:04 Calcium 9.1 mg/dL (8.5-10.1) 05/21/22 04:00 Magnesium 2.2 mg/dL (1.8-2.4) 05/21/22 04:00 Albumin 2.1 g/dL (3.4-5.0) L 05/21/22 04:00 Prealbumin 12.8 mg/dL (20-40) L 05/21/22 04:00 Urine Color Colorless (Yellow) 05/15/22 16:37 Urine Clarity Clear (Clear) 05/15/22 16:37 Urine pH 7.5 (5.0-7.0) H 05/15/22 16:37 Ur Specific Buchanan 1.009 (1.005-1.030) 05/15/22 16:37 Glucose (UA)(Auto) Negative (Negative) 05/15/22 16:37 Urine Ketones Negative (Negative) 05/15/22 16:37 Urine Blood Trace (Negative) H 05/15/22 16:37 Urine Nitrite Negative (Negative) 05/15/22 16:37 Urine Bilirubin Negative (Negative) 05/15/22 16:37 Urine Urobilinogen Normal (Normal) 05/15/22 16:37 Ur Leukocyte Esterase Negative Harini/uL (Negative) 05/15/22 16:37 Urine RBC <5 /HPF (None Seen) 05/15/22 16:37 Urine WBC <5 /HPF (<5) 05/15/22 16:37 U Non-Squamous Epi Cells <5 /HPF (None Seen) 05/15/22 16:37 Urine Total Protein Negative (Negative) 05/15/22 16:37 SARS-CoV-2 Rap RNA(RT-PCR) Negative (NEGATIVE) 05/22/22 05:40 Weight: 169 lb 14.4 oz Wound Present: Yes Closed Surgical Incision Present: Yes Negative Pressure Wound Therapy Present: No Physician Update: She still has significant drainage for her right thigh surgical site. Her albumin is 2.1, a contributing factor. She is on protein supplementation. 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 She has significant pain in the right lower extremity. She has difficulty managing her colostomy. Summary: Patient's care plan and intermission coordinator goals have been reviewed and revised as necessary. Please see the Rehabilitation Signature page for all necessary signatures.
[2022-05-22] MEDS: ENSURE HIGH PROTEIN 237 ML CAN PO SCH ×2 (08:45→20:07)
[2022-05-22] MEDS: MAGNESIUM OXIDE 400 MG TAB PO SCH ×2 (08:45→20:08)
[2022-05-22] MEDS: MEDIHONEY 44 ML TOPICAL TUBE TOP SCH (08:45)
[2022-05-22] MEDS: HYDROCODONE/APAP 7.5/325 MG TAB PO PRN ×3 (13:16→23:48)
[2022-05-22] MEDS: DOCUSATE NA/SENNA CONC 1 TAB PO SCH (20:09)
[2022-05-23] MEDS: TRAMADOL HCL 50 MG TAB PO PRN ×2 (01:55→19:33)
[2022-05-23] MEDS: BACLOFEN 10 MG TAB PO PRN ×2 (01:57→22:55)
[2022-05-23] MEDS: PANTOPRAZOLE 40MG TABLET PO SCH (05:20)
[2022-05-23] MEDS: CEPHALEXIN 500 MG CAP PO SCH ×3 (05:20→17:42)
[2022-05-23] MEDS: HYDROCODONE/APAP 7.5/325 MG TAB PO PRN ×4 (05:22→20:37)
[2022-05-23 05:34] VITALS: BMI 31.1
[2022-05-23 05:50] LABS: Absolute Lymphocytes (CBC) 2.4 K/uL (0.7-4.9); Hematocrit 27.3 % (36.0-45.0); Lymphocytes % 30.3 % (15.3-44.8); MCV 86.2 fL (80-100); MPV 8.7 fL (7.6-11.3); RBC Red Blood Cell Count 3.17 M/uL (3.86-4.86)
[2022-05-23 06:10] LABS: Potassium 4.1 mmol/L (3.5-5.1)
[2022-05-23] MEDS: INSULIN -REGULAR HUMAN 50 UNIT/0.5 ML ML SQ SCH ×2 (07:11→19:43)
[2022-05-23] MEDS: DOXYCYCLINE 100 MG CAP PO SCH ×2 (07:34→19:32)
[2022-05-23] MEDS: GABAPENTIN 300 MG CAP PO SCH ×2 (07:34→19:31)
[2022-05-23] MEDS: CRANBERRY FRUIT EXTRACT 200 MG CAP PO SCH ×2 (07:35→19:31)
[2022-05-23] MEDS: MAGNESIUM OXIDE 400 MG TAB PO SCH ×2 (07:35→19:31)
[2022-05-23] MEDS: FERROUS SULFATE 325 MG TAB PO SCH ×3 (07:35→19:32)
[2022-05-23] MEDS: APIXABAN 2.5 MG TABLET PO SCH ×2 (07:35→19:31)
[2022-05-23] MEDS: CELECOXIB 100 MG CAPSULE PO SCH ×2 (07:35→19:31)
[2022-05-23] MEDS: POTASSIUM 25 MEQ EFFERV TAB PO SCH (07:35)
[2022-05-23] MEDS: ENSURE HIGH PROTEIN 237 ML CAN PO SCH ×2 (07:41→19:32)
[2022-05-23] MEDS: AMINO ACIDS/PROTEIN HYDROLYS 30 ML LIQUID.PKT PO SCH ×2 (07:41→19:32)
[2022-05-23] MEDS: MEDIHONEY 44 ML TOPICAL TUBE TOP SCH (10:47)
[2022-05-23] MEDS: DOCUSATE NA/SENNA CONC 1 TAB PO SCH (19:31)
[2022-05-24] MEDS: CEPHALEXIN 500 MG CAP PO SCH ×4 (00:24→16:59)
[2022-05-24] MEDS: HYDROCODONE/APAP 7.5/325 MG TAB PO PRN ×5 (01:05→19:20)
[2022-05-24] MEDS: PANTOPRAZOLE 40MG TABLET PO SCH (05:30)
[2022-05-24] MEDS: INSULIN -REGULAR HUMAN 50 UNIT/0.5 ML ML SQ SCH (08:00)
[2022-05-24] MEDS: AMINO ACIDS/PROTEIN HYDROLYS 30 ML LIQUID.PKT PO SCH ×2 (08:00→19:20)
[2022-05-24] MEDS: DOXYCYCLINE 100 MG CAP PO SCH ×2 (08:00→19:19)
[2022-05-24] MEDS: APIXABAN 2.5 MG TABLET PO SCH ×2 (09:00→19:20)
[2022-05-24] MEDS: MEDIHONEY 44 ML TOPICAL TUBE TOP SCH (09:08)
[2022-05-24] MEDS: POTASSIUM 25 MEQ EFFERV TAB PO SCH (09:09)
[2022-05-24] MEDS: GABAPENTIN 300 MG CAP PO SCH ×2 (09:09→19:19)
[2022-05-24] MEDS: CRANBERRY FRUIT EXTRACT 200 MG CAP PO SCH ×2 (09:10→19:19)
[2022-05-24] MEDS: FERROUS SULFATE 325 MG TAB PO SCH ×3 (09:11→19:19)
[2022-05-24] MEDS: CELECOXIB 100 MG CAPSULE PO SCH ×2 (09:11→19:20)
[2022-05-24] MEDS: MAGNESIUM OXIDE 400 MG TAB PO SCH ×2 (09:11→19:20)
[2022-05-24] MEDS: ENSURE HIGH PROTEIN 237 ML CAN PO SCH ×2 (10:26→19:20)
[2022-05-24] MEDS: DOCUSATE NA/SENNA CONC 1 TAB PO SCH (19:19)
[2022-05-24] MEDS: TRAZODONE 50 MG TABLET PO PRN (20:26)
[2022-05-24] MEDS: TRAMADOL HCL 50 MG TAB PO PRN (20:28)
[2022-05-25] MEDS: CEPHALEXIN 500 MG CAP PO SCH ×4 (00:01→17:05)
[2022-05-25] MEDS: HYDROCODONE/APAP 7.5/325 MG TAB PO PRN ×6 (00:01→23:10)
[2022-05-25] MEDS: PANTOPRAZOLE 40MG TABLET PO SCH (05:25)
[2022-05-25] MEDS: CRANBERRY FRUIT EXTRACT 200 MG CAP PO SCH ×2 (07:57→19:39)
[2022-05-25] MEDS: FERROUS SULFATE 325 MG TAB PO SCH ×3 (07:57→19:38)
[2022-05-25] MEDS: GABAPENTIN 300 MG CAP PO SCH ×2 (07:57→19:39)
[2022-05-25] MEDS: APIXABAN 2.5 MG TABLET PO SCH ×2 (07:57→19:39)
[2022-05-25] MEDS: ENSURE HIGH PROTEIN 237 ML CAN PO SCH ×2 (07:58→19:41)
[2022-05-25] MEDS: POTASSIUM CL SA 10 MEQ TAB PO SCH (07:58)
[2022-05-25] MEDS: CELECOXIB 100 MG CAPSULE PO SCH ×2 (07:58→19:38)
[2022-05-25] MEDS: MAGNESIUM OXIDE 400 MG TAB PO SCH ×2 (07:58→19:38)
[2022-05-25] MEDS: DOXYCYCLINE 100 MG CAP PO SCH ×2 (07:58→19:38)
[2022-05-25] MEDS: AMINO ACIDS/PROTEIN HYDROLYS 30 ML LIQUID.PKT PO SCH ×2 (07:59→19:40)
[2022-05-25] MEDS: TRAMADOL HCL 50 MG TAB PO PRN ×2 (08:00→11:57)
[2022-05-25] MEDS: MEDIHONEY 44 ML TOPICAL TUBE TOP SCH (12:11)
[2022-05-25] MEDS: DOCUSATE NA/SENNA CONC 1 TAB PO SCH (19:39)
[2022-05-25] MEDS: BACLOFEN 10 MG TAB PO PRN (21:12)
[2022-05-26] MEDS: CEPHALEXIN 500 MG CAP PO SCH ×4 (00:05→17:15)
--- NOTE | 2022-05-26 00:09 | CON ---
History Of Present Illness: This is a 72-year-old female with significant history of perforated sigm oid colon status post surgical repair with colostomy placement on April 27 at [facility]. The patient capone s multiple medical problems including asthma, COPD, gastroesophageal reflux disease, fibromyalgia, hy percholesterolemia, depression, shingles, sleep apnea, osteoporosis, right prosthetic knee infection, right femur antibiotic spacer, right total knee arthroplasty, right and left femur open reduction in ternal fixation, and right tibia open reduction internal fixation. The patient is currently on Kefle x and Vibramycin. Reason is not clear, most likely secondary to osteomyelitis. The patient also has an open wound to the lower extremities, especially the right femur area on the lateral thigh, which has green drainage. Past Medical History: As per HPI. Social History: Nonsmoker, nondrinker. Family History: Noncontributory. Medications: Keflex and Vibramycin. See MAR for other medications. Allergies: ALPRAZOLAM AND VANC. Review of Systems: A 10-point review was performed. Physical Examination: General: This is a 72-year-old female in the rehab unit, not in any acute cardiopulmonary distress. Vital Signs: Temperature 98, pulse 78, respirations 18, blood pressure 130/70. HEENT: Unremarkable. Neck: Supple. Lungs: Basal crackles. Heart: S1, S2 regular. Abdomen: Bowel sounds present. Tenderness in lower abdomen. Colostomy bag in place. Abdominal wou nd noted. Extremities: Bilateral lower extremity wounds noted. Laboratory Data: WBC 8, hemoglobin 8.9, platelets 475. Chemistry shows sodium, BUN, and creatinine stable. Procalcitonin is 0.09. Microdata: Wound cultures are negative from 05/20/2022. Assessment And Plan: A 72-year-old female with recent history of perforated sigmoid colon status pos t colostomy who continued to have some abdominal discomfort and also significant history of right fem ur infection status post right and left femur open reduction internal fixation. Wound is draining gr een drainage. We will recommend to re-culture the wound. Continue antibiotic, Vibramycin and doxycy sage. If needed we will change antibiotic after discussing from the hospital, once the patient was discharged. Wound to the tibia is improving. For abdominal wound, continue current treatment. Cons ider Silvadene to the right femur wound. Pending culture results. We will follow the patient closel y. Thank you Dr. Barry for consult. NF/MODL Voice ID: [id number] Report ID: [id number]
[2022-05-26] MEDS: HYDROCODONE/APAP 7.5/325 MG TAB PO PRN ×5 (04:30→20:19)
[2022-05-26] MEDS: PANTOPRAZOLE 40MG TABLET PO SCH (05:18)
[2022-05-26] MEDS: GABAPENTIN 300 MG CAP PO SCH ×2 (07:48→20:18)
[2022-05-26] MEDS: MAGNESIUM OXIDE 400 MG TAB PO SCH ×2 (07:48→20:19)
[2022-05-26] MEDS: DOXYCYCLINE 100 MG CAP PO SCH ×2 (07:48→20:18)
[2022-05-26] MEDS: APIXABAN 2.5 MG TABLET PO SCH ×2 (07:48→20:18)
[2022-05-26] MEDS: ENSURE HIGH PROTEIN 237 ML CAN PO SCH ×2 (07:49→20:21)
[2022-05-26] MEDS: CRANBERRY FRUIT EXTRACT 200 MG CAP PO SCH ×2 (07:49→20:18)
[2022-05-26] MEDS: POTASSIUM CL SA 10 MEQ TAB PO SCH (07:49)
[2022-05-26] MEDS: FERROUS SULFATE 325 MG TAB PO SCH ×3 (07:49→20:18)
[2022-05-26] MEDS: CELECOXIB 100 MG CAPSULE PO SCH ×2 (07:49→20:19)
[2022-05-26] MEDS: AMINO ACIDS/PROTEIN HYDROLYS 30 ML LIQUID.PKT PO SCH ×2 (07:50→20:20)
[2022-05-26] MEDS: MEDIHONEY 44 ML TOPICAL TUBE TOP SCH (09:49)
[2022-05-26] MEDS: DOCUSATE NA/SENNA CONC 1 TAB PO SCH (20:18)
--- NOTE | 2022-05-26 22:36 | PN ---
Date of Progress Note: 05/25/2022 This is a eoek-ke-mtez visit. Subjective: Ms. Cordoba does report very slight drainage of the right leg surgical site that is a nipple threader mahnaz surgical site. She has some slight improvement in the movement of the right thigh, but no improv ement noted in the right foot in terms of dorsiflexion. There is muscle contraction on the right thi gh, but no movement yet of extending the leg. She did visit with Dr. Fisher, the orthopedic surgeon who did the right hip surgery. However, she is in hospital with colostomy, colectomy, and has dress ing changes regarding that and has significant debility. She has anemia and malnutrition as well. Physical Examination: Vital Signs: Blood pressure 108/53, pulse 72, respiratory rate 16, temperature 97.6. General: Ms. Cordoba is resting in bed. She is mildly depressed given her slow rate of recovery of th e right lower extremity strength. HEENT: Otherwise normocephalic, atraumatic. Sclerae are anicteric. Upper Extremities: Some arthralgias and myalgias but otherwise no focal weakness. She has as dense weakness in the right lower extremity, proximally in the right leg, 2/5 for knee extension, and later al and medial rotation of the knee also around 2/5. Foot dorsiflexion 0-5, plantar flexion 2 to 3/5. Otherwise, 4/5 in the left upper and lower extremity and the right upper extremity. Laboratory Studies: No new laboratory studies. Last blood work was on 05/23/2022. White blood cell count 8.0, hemoglobin 8.9. Blood sugars range from 79-101. Procalcitonin down to 0.09. X-ray imaging: No new x-rays. Current Functional Status: Ms. Cordoba was able to perform a wheelchair mobilization with standby assi stance. She did move increased distance today compared to last week. She showed progress towards in dependent functioning at home. Progress toward repetition goals. She is making a fair progress overall to rehabilitation. With her rehabilitation, however, she is significantly limited by marked weakness in the right lower extremit y, which is likely due to a femoral neuropathy above the inguinal ligament. Assessment And Plan: Ms. Cordoba is a 72-year-old patient with diverticulitis, status post colostomy a nd colectomy with wound VAC, which has been removed and she is having wet-to-dry dressing in the abdo frederick wound. She has a dense weakness in the right lower extremity due to compression of the femoral nerve above the inguinal ligament, perhaps during surgical manipulation. She does have peripheral n europathy and ongoing infection that is treated with antibiotics, muscle spasms, anemia, malnutrition , depression, and insomnia. Those conditions are managed as noted with medications, which are not ch anged. She is being followed by the Infectious Disease Service who is managing her oral antibiotics and she will continue with aggressive physical and occupational therapy. MALLIKA/FELIPE Voice ID: [id number] Report ID: [id number]
[2022-05-27] MEDS: HYDROCODONE/APAP 7.5/325 MG TAB PO PRN ×5 (00:01→20:32)
[2022-05-27] MEDS: CEPHALEXIN 500 MG CAP PO SCH ×5 (00:02→23:09)
--- NOTE | 2022-05-27 00:09 | PN ---
Date of Progress Note: 05/26/2022 Kzjh-lm-lfeg progress note visit. Subjective: Ms. Cordoba is resting in bed. She has slight improvement in the right lower extremity st rength where the muscles contracted the thigh, but no movement is seen. She is somewhat depressed ab out the slow rate of progress of her right lower extremity strength. She denies significant pain at the colostomy, colectomy site in the abdomen and that wound is being dressed with wet-to-dry dressing . Physical Examination: Vital Signs: Blood pressure 112/55, pulse 64, respiratory rate 18, temperature 97.1, oxygen saturati on 94%. General: Ms. Cordoba is resting in bed. She is in no acute distress. HEENT: Normocephalic and atraumatic. Sclerae are anicteric. Extremities: Her right lower extremity surgical site that is chronic and the right thigh shows very little drainage and a slight open area about 3 or [address] Fisher is evaluating and allan varela for that and Dr. Vernon from the Infectious Disease service is managing that with antibiotics. Laboratory Studies: White blood cell count from 05/23 is 8.0, hemoglobin 8.9. Blood sugars from the 13th, 79 and 101. X-ray imaging: No new x-ray images. Medications: Eliquis 2.5 mg twice daily, protein amino acid supplementation 30 mL twice daily, Conger 7.5/325 every 4 hours as needed, baclofen 5 mg twice daily, Celebrex 100 mg twice daily, Keflex 500 mg every 6 hours, Vibramycin 100 mg twice daily, ferrous sulfate 325 mg twice daily, MediHoney wound care and topical abdominal wound site daily, gabapentin 900 mg twice daily, magnesium oxide 400 mg tw ice daily, Atrovent nebulizer 0.5 mg daily as needed, Zofran 4 mg q.6 hours as needed, Protonix 40 mg daily, potassium 10 mEq daily, Senokot 1 tablet at bedtime, Ultram 100 mg every 4 hours as needed, t razodone 100 mg at night as needed for insomnia. Current Functional Status: Currently, Ms. Cordoba is able to perform wheelchair mobility, but she requ ired moderate assistance for that. Dae-wz-gtjah transfers required minimal assistance and contact gu kavya assistance to remain standing upright. She had some difficulty getting her hand on the walker. Also, tax-wg-jxturj was done with minimum assistance. Completed 5 ori-ke-dpeqb with a rolling walker . Progress toward rehabilitation goals: Overall, she is making fair, but maybe slow progress with reha bilitation given significant weakness in the right lower extremity that is likely due to a femoral ne rve compression or stretch injury perhaps around time of surgery above the inguinal ligament on the r ight side. She has had diabetes mellitus, malnutrition, and anemia with constipation, significant pa in. Assessment And Plan: Ms. Cordoba is a 72-year-old patient with diverticulitis, status post colostomy, colectomy who has had a wound VAC removed and is having wet-to-dry dressings with MediHoney in surgic al wound site in the abdominal area. She has a chronic right lower extremity hip surgery prosthesis and chronic drainage from the site that is followed by Dr. Fisher and the Infectious Disease physici ans. She does have significant weakness with the right femoral neuropathy above the inguinal ligamen t. She has nausea addressed with Zofran, neuropathic pain at rest with gabapentin, nebulizers for sh ortness of breath. She has amino acid for her supplementation for nutrition and of course physical a nd occupational therapy is done aggressively. Barriers to improvement and may impede her rehabilitation: Again, the most significant barrier is th e right lower extremity weakness due to femoral neuropathy above the inguinal ligament. Otherwise, she is somewhat in depressed mood given her slow recovery of strength in the right lower e xtremity and otherwise her abdominal wound is progressing fairly well in terms of healing. Another b arrier is the ongoing drainage from the chronic right proximal lower extremity surgical site, again m anaged by ID and Dr. Fisher of the Orthopedic Service. LB/MODL Voice ID: [id number] Report ID: [id number]
[2022-05-27] MEDS: PANTOPRAZOLE 40MG TABLET PO SCH (05:18)
[2022-05-27] MEDS: APIXABAN 2.5 MG TABLET PO SCH ×2 (07:32→19:36)
[2022-05-27] MEDS: CRANBERRY FRUIT EXTRACT 200 MG CAP PO SCH ×2 (07:32→19:35)
[2022-05-27] MEDS: CELECOXIB 100 MG CAPSULE PO SCH ×2 (07:33→19:36)
[2022-05-27] MEDS: ENSURE HIGH PROTEIN 237 ML CAN PO SCH ×2 (08:00→19:37)
[2022-05-27] MEDS: AMINO ACIDS/PROTEIN HYDROLYS 30 ML LIQUID.PKT PO SCH ×2 (08:00→19:37)
[2022-05-27] MEDS: POTASSIUM CL SA 10 MEQ TAB PO SCH (08:00)
[2022-05-27] MEDS: FERROUS SULFATE 325 MG TAB PO SCH ×3 (08:17→19:36)
[2022-05-27] MEDS: MAGNESIUM OXIDE 400 MG TAB PO SCH ×2 (08:17→19:35)
[2022-05-27] MEDS: DOXYCYCLINE 100 MG CAP PO SCH ×2 (08:17→19:36)
[2022-05-27] MEDS: GABAPENTIN 300 MG CAP PO SCH ×2 (08:18→19:35)
[2022-05-27] MEDS: MEDIHONEY 44 ML TOPICAL TUBE TOP SCH (08:18)
--- NOTE | 2022-05-27 16:44 | PN ---
Subjective: The patient is lying in bed, not in any acute cardiopulmonary distress. Objective: Vital Signs: Temperature 97, pulse 70, respirations 17, blood pressure 106/54. Lungs: Clear to auscultation. Heart: S1, S2. Regular. Abdomen: Soft. Bowel sounds present. Wounds noted. Extremities: No edema. Right leg and left leg wounds noted. Laboratory Data: Reviewed. Assessment And Plan: Abdominal wound and right thigh wound to apply Medihoney with alginate, anemia of chronic disease, severe protein-calorie malnourishment. Continue supportive care. Prognosis is g uarded. We will follow the patient closely. NF/MODL Voice ID: [id number] Report ID: [id number]
[2022-05-27] MEDS: DOCUSATE NA/SENNA CONC 1 TAB PO SCH (19:35)
[2022-05-27] MEDS: TRAMADOL HCL 50 MG TAB PO PRN (19:35)
[2022-05-27] MEDS: BACLOFEN 10 MG TAB PO PRN (19:36)
[2022-05-27] MEDS: TRAZODONE 50 MG TABLET PO PRN (19:36)
--- NOTE | 2022-05-28 00:41 | PN ---
This is a kyka-gf-qlpd progress note. Subjective: Ms. Cordoba is resting in bed. She is somewhat depressed about the situation where her viet soto broke up with his girlfriend, who was promising to be helpful to her when she is at home. However, she is otherwise making slight improvement in terms of her right lower extremity weakness. She can now roll medially the knee, which is slightly more than she could when she initially had surgery. Sienna dunbar has no significant drainage on the right thigh. Review of Systems: Some rkyy-sl-hwgcmjhu pain in the right lower extremity, chronic hip replacement, and at the colostom y colectomy site in the abdominal area where there is dressing changes applied with MediHoney and the colostomy bag is changed on a regular basis. Physical Examination: Vital Signs: Blood pressure 106/54, pulse 70, respiratory rate 17, temperature 97.4, oxygen saturati on 97%. General: Ms. Cordoba is resting in bed. She is normocephalic, atraumatic. Sclerae anicteric. Oropha rynx is moist. Neck: Supple. Chest: Clear. Heart: Regular. Extremities: On the right shows some mild edema as well as on left. She has right lateral surgical wound that has a very small opening. No significant drainage noted today. Colostomy bag is in place . Laboratory Studies: No new laboratory studies. Blood sugars from 2 days ago, 79 to 101. X-ray imaging: No new x-ray imaging. Medications: Medications were reviewed and have not changed. Current Functional Status: Today she is able to perform euw-si-ejanx transfers with minimum assistan ce. Supine to sit transfers done independently. Bed mobility completed with standby assistance. Sienna dunbar was able to get out of bed with standby assistance with the use of the leg middle card tender, with which she i s able to lift the leg by pulling with the arms. She did mobilize a wheelchair 100 feet and then 200 feet with standby assistance. Progress towards rehabilitation goals: Progress versus goals of becoming modified independence for keisha sargent. Mobilization is slow given marked weakness of the right lower extremity with slow recovery of strength. She does have a colostomy bag and the patient is being trained every day as the nurses change the bag. She does have slight pain in that area and more significant pain and weakness in th e right lower extremity. She also has in addition significant pain nor neuropathic type pain as well . She has nausea, depression, insomnia, and those positions are addressed currently with Zofran, tra zodone, gabapentin, and magnesium. 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 She has debility likely related to her hospitalization plus the colostomy bag, which is in place after her diverticulosis and abdominal rm josy. Also ongoing infections, which the ID service is following her. She has a chronic right hip s urgical prosthesis and Dr. Fisher in the Orthopedic Service is following and she has insomnia, const ipation, and nausea and those do impact her rehabilitation process. MALLIKA/FELIPE Voice ID: [id number] Report ID: [id number]
[2022-05-28] MEDS: HYDROCODONE/APAP 7.5/325 MG TAB PO PRN ×6 (00:47→23:53)
[2022-05-28] MEDS: PANTOPRAZOLE 40MG TABLET PO SCH (05:22)
[2022-05-28] MEDS: CEPHALEXIN 500 MG CAP PO SCH ×4 (05:22→23:53)
[2022-05-28] MEDS: APIXABAN 2.5 MG TABLET PO SCH ×2 (07:27→19:46)
[2022-05-28] MEDS: CELECOXIB 100 MG CAPSULE PO SCH ×2 (08:00→19:46)
[2022-05-28] MEDS: AMINO ACIDS/PROTEIN HYDROLYS 30 ML LIQUID.PKT PO SCH ×2 (08:00→19:48)
[2022-05-28] MEDS: GABAPENTIN 300 MG CAP PO SCH ×2 (08:29→19:44)
[2022-05-28] MEDS: MEDIHONEY 44 ML TOPICAL TUBE TOP SCH (08:29)
[2022-05-28] MEDS: FERROUS SULFATE 325 MG TAB PO SCH ×3 (08:30→19:46)
[2022-05-28] MEDS: MAGNESIUM OXIDE 400 MG TAB PO SCH ×2 (08:30→19:46)
[2022-05-28] MEDS: CRANBERRY FRUIT EXTRACT 200 MG CAP PO SCH ×2 (08:30→19:44)
[2022-05-28] MEDS: POTASSIUM CL SA 10 MEQ TAB PO SCH (08:30)
[2022-05-28] MEDS: DOXYCYCLINE 100 MG CAP PO SCH ×2 (08:30→19:44)
[2022-05-28] MEDS: ENSURE HIGH PROTEIN 237 ML CAN PO SCH ×2 (09:49→19:48)
[2022-05-28] MEDS: TRAMADOL HCL 50 MG TAB PO PRN (10:31)
[2022-05-28] MEDS: BACLOFEN 10 MG TAB PO PRN (10:31)
[2022-05-28] MEDS: DOCUSATE NA/SENNA CONC 1 TAB PO SCH ×2 (19:45→19:57)
--- NOTE | 2022-05-28 22:18 | PN ---
Subjective: Ms. Cordoba is in bed. She continues to feel somewhat depressed about her progression in addition to some issues with her family and potential help, which is her son's girlfriend who apparpaul puente has kind of taken off and is no longer willing to help. She does report some more pain in the ri ght lower extremity aldrich region and right foot and some more movement in the right leg, which she can roll medially better than yesterday. She does report some more drainage at the right thigh long ter m surgical site. Review of Systems: No fevers or chills. Some arthralgias and myalgias. No new rash. No psychiatric issues aside from the depression. No dermatological issues. No other positives noted on her 10 point review of system s. Objective: Vital Signs: Blood pressure 111/55, pulse 61, respiratory rate 18, temperature 97.0, oxy gen saturation 97%. General: Ms. Cordoba is resting in bed. She is in mild pain, which can vary all the way up to 8, but currently 0. Skin: She is otherwise having mild drainage of the right side surgical site. Her colostomy site is showing good hemostasis. No evidence of ongoing infection. Laboratory Studies: No new laboratory studies. Imaging/X-ray: No new x-rays. Medications: List has been reviewed and is unchanged. Current Functional Status: Ms. Cordoba performs jdc-jk-evtzr transfers with moderate assistance. She propelled a wheelchair 100 feet and then 200 feet with standby assistance. She did require maximal a ssistance to don and doff lower extremity clothes. Progress towards rehabilitation goals: She is making slow progress towards her goal of becoming inde pendent with her transfers, upper and lower body dressing, showering, and performance of her activiti es of daily living in addition to mobilizing household distances in a wheelchair. Assessment: Ms. Cordoba is a 72-year-old patient with diverticulitis status post colostomy, colectomy with wound VAC that has been removed and wet-to-dry dressing on the abdominal wound with ostomy bag i n place. 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 She has depression and ongoing infection in the right thigh that is treated with multiple antibiotics. She has risk of deep vein thrombosis, constipation, naus ea, anemia, and malnutrition. Those conditions are addressed by her medications including amino acid supplementation, Eliquis for deep vein thrombosis prophylaxis, baclofen for muscle spasms, Keflex an d vibramycin for longer term infection in the right thigh. She has Cymbalta for depression, ferrous sulfate for anemia, gabapentin for neuropathic pain, Zofran for nausea, Protonix for reflux, Senokot- S for constipation, Ultram for pain, and trazodone for insomnia. Comorbidities that continue to impact rehabilitation process: Biggest comorbid is right femoral neur opathy above the inguinal ligament, which is making movement of right lower extremity very difficult. She has very slow regain of functioning in that region. She did have significant pain as likely th e nerve is reactivating causing pain in the right lower extremity. She is on gabapentin and Cymbalta to help with that. MALLIKA/FELIPE Voice ID: [id number] Report ID: [id number]
[2022-05-29] MEDS: HYDROCODONE/APAP 7.5/325 MG TAB PO PRN ×4 (04:12→15:22)
[2022-05-29] MEDS: CEPHALEXIN 500 MG CAP PO SCH ×3 (06:11→17:30)
[2022-05-29] MEDS: PANTOPRAZOLE 40MG TABLET PO SCH (06:11)
[2022-05-29] MEDS ORDERED: SILVER SULFADIAZINE 1% 25 GM TOP SCH (08:00)
[2022-05-29] MEDS ORDERED: DULOXETINE 20 MG CAP PO SCH (08:00)
[2022-05-29 08:03] VITALS: BP 115/56; TEMP 97.4
--- NOTE | 2022-05-29 08:23 | P.RH.PN ---
Estimated Length of Stay: 16 Expected Discharge Date: 06/01/22 Discharge Disposition Plan: Home Family Support: Yes Penitentiary Goal: Mobility, Transfers, Self Care Vital Signs: Last Vital Signs Temp 97.4 F 05/29/22 07:30 Pulse 68 05/29/22 07:30 Resp 18 05/29/22 07:43 BP 115/56 L 05/29/22 07:30 Pulse Ox 96 05/29/22 07:43 Laboratory: Laboratory Last Values WBC 8.00 K/uL (4.3-10.9) 05/23/22 05:31 RBC 3.17 M/uL (3.86-4.86) L 05/23/22 05:31 Hgb 8.9 g/dL (12.0-15.0) L 05/23/22 05:31 Hct 27.3 % (36.0-45.0) L 05/23/22 05:31 MCV 86.2 fL (80-100) 05/23/22 05:31 MCH 28.3 pg (27.0-35.0) 05/23/22 05:31 MCHC 32.8 g/dL (32.0-36.0) 05/23/22 05:31 RDW 18.1 % (12.1-15.2) H 05/23/22 05:31 Plt Count 475 K/uL (152-406) H 05/23/22 05:31 MPV 8.7 fL (7.6-11.3) 05/23/22 05:31 Neutrophils % 49.9 % (41.7-73.7) 05/23/22 05:31 Lymphocytes % 30.3 % (15.3-44.8) 05/23/22 05:31 Monocytes % 12.9 % (3.3-12.3) H 05/23/22 05:31 Eosinophils % 5.5 % (0-4.4) H 05/23/22 05:31 Basophils % 1.4 % (0-1.3) H 05/23/22 05:31 Absolute Neutrophils 4.0 K/uL (1.8-8.0) 05/23/22 05:31 Absolute Lymphocytes 2.4 K/uL (0.7-4.9) 05/23/22 05:31 Absolute Monocytes 1.0 K/uL (0.1-1.3) 05/23/22 05:31 Absolute Eosinophils 0.4 K/uL (0-0.5) 05/23/22 05:31 Absolute Basophils 0.1 K/uL (0-0.5) 05/23/22 05:31 Sodium 138 mmol/L (136-145) 05/23/22 05:31 Potassium 4.1 mmol/L (3.5-5.1) 05/23/22 05:31 Chloride 105 mmol/L (98-107) 05/23/22 05:31 Carbon Dioxide 28 mmol/L (21-32) 05/23/22 05:31 Anion Gap 9.1 mEq/L (5.0-15.0) 05/23/22 05:31 BUN 17 mg/dL (7-18) 05/23/22 05:31 Creatinine 0.66 mg/dL (0.55-1.3) 05/23/22 05:31 Est GFR (CKD-EPI) 94 ml/min (=/>90) 05/23/22 05:31 Glucose 94 mg/dL (74-106) 05/23/22 05:31 POC Glucose 101 mg/dL (65-120) 05/24/22 20:04 Lactic Acid 1.1 mmol/L (0.4-2.0) 05/23/22 05:31 Calcium 9.0 mg/dL (8.5-10.1) 05/23/22 05:31 Magnesium 2.2 mg/dL (1.8-2.4) 05/21/22 04:00 Lactate Dehydrogenase 136 U/L (84-246) 05/23/22 05:31 Albumin 2.1 g/dL (3.4-5.0) L 05/21/22 04:00 Prealbumin 12.8 mg/dL (20-40) L 05/21/22 04:00 Procalcitonin 0.09 ng/mL (<0.050) H 05/23/22 05:31 Urine Color Colorless (Yellow) 05/15/22 16:37 Urine Clarity Clear (Clear) 05/15/22 16:37 Urine pH 7.5 (5.0-7.0) H 05/15/22 16:37 Ur Specific [place] 1.009 (1.005-1.030) 05/15/22 16:37 Glucose (UA)(Auto) Negative (Negative) 05/15/22 16:37 Urine Ketones Negative (Negative) 05/15/22 16:37 Urine Blood Trace (Negative) H 05/15/22 16:37 Urine Nitrite Negative (Negative) 05/15/22 16:37 Urine Bilirubin Negative (Negative) 05/15/22 16:37 Urine Urobilinogen Normal (Normal) 05/15/22 16:37 Ur Leukocyte Esterase Negative Harini/uL (Negative) 05/15/22 16:37 Urine RBC <5 /HPF (None Seen) 05/15/22 16:37 Urine WBC <5 /HPF (<5) 05/15/22 16:37 U Non-Squamous Epi Cells <5 /HPF (None Seen) 05/15/22 16:37 Urine Total Protein Negative (Negative) 05/15/22 16:37 SARS-CoV-2 Rap RNA(RT-PCR) Negative (NEGATIVE) 05/22/22 05:40 Weight: 170 lb 1.6 oz Wound Present: Yes Closed Surgical Incision Present: Yes Negative Pressure Wound Therapy Present: No Physician Update: She is making fair progress overall. She is on 2 antibotics with continuous aseptic fluid drainage. She is contact guard to min assistance with bed to chair transfers. She requires max assistance with commode transfers. She is depressed and in on cymbalta. 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 Please see the Rehabilitation Signature page for all necessary signatures.
[2022-05-29] MEDS: ENSURE HIGH PROTEIN 237 ML CAN PO SCH (08:48)
[2022-05-29] MEDS: MEDIHONEY 44 ML TOPICAL TUBE TOP SCH (08:48)
[2022-05-29] MEDS: CRANBERRY FRUIT EXTRACT 200 MG CAP PO SCH (08:49)
[2022-05-29] MEDS: FERROUS SULFATE 325 MG TAB PO SCH ×2 (08:49→13:41)
[2022-05-29] MEDS: DOXYCYCLINE 100 MG CAP PO SCH (08:49)
[2022-05-29] MEDS: MAGNESIUM OXIDE 400 MG TAB PO SCH (08:49)
[2022-05-29] MEDS: GABAPENTIN 300 MG CAP PO SCH (08:50)
[2022-05-29] MEDS: POTASSIUM CL SA 10 MEQ TAB PO SCH (08:50)
[2022-05-29] MEDS: APIXABAN 2.5 MG TABLET PO SCH (08:50)
[2022-05-29] MEDS: CELECOXIB 100 MG CAPSULE PO SCH (08:50)
[2022-05-29] MEDS: AMINO ACIDS/PROTEIN HYDROLYS 30 ML LIQUID.PKT PO SCH (08:51)
[2022-05-29] MEDS ORDERED: INFLUENZA VACCINE (for 6+ mo) 0.5 ML DOSE IMVAC ONE (10:00)
[2022-05-29 12:18] LABS: Absolute Lymphocytes (CBC) 2.1 K/uL (0.7-4.9); MCV 86.2 fL (80-100); MPV 8.8 fL (7.6-11.3); RBC Red Blood Cell Count 3.13 M/uL (3.86-4.86)
[2022-05-29 12:55] LABS: Potassium 4.1 mmol/L (3.5-5.1)
[2022-05-29] MEDS ORDERED: PNEUMOCOCCAL VACCINE 0.5 ML IMVAC ONE (13:00)
--- NOTE | 2022-05-29 17:48 | PN ---
Subjective: Patient sitting in a wheelchair. Denies any headache, nausea, vomiting, chest pain, abd ominal pain. Being transferred to alf. Objective: Vital Signs: Temperature 97, pulse 68, respirations 18, blood pressure 115/56. Lungs: Clear to auscultation. Heart: S1, S2. Regular. Abdomen: Soft, nontender. Bowel sounds are present. Extremity: No edema. Wounds noted, improving. Laboratory Data: Reviewed. Assessment And Plan: Right thigh and abdominal wounds, improving. Continue empiric antibiotic and w ound care. Anemia of chronic disease. Severe protein-calorie malnourishment. Morbid obesity. NF/MODL Voice ID: [id number] Report ID: [id number]
[2022-05-29] MEDS: TRAMADOL HCL 50 MG TAB PO PRN (18:14)
== END 2022-05-29 18:30 | DRG 947 ==
LOC: 5TH 12:54
PROVIDERS: ADMIT Psychiatry & Neurology Neurology with Special Qualifications in Child Neurology; ATTEND Psychiatry & Neurology Neurology with Special Qualifications in Child Neurology
DX: R53.81 Other malaise (principal); E43 Unspecified severe protein-calorie malnutrition; M81.0 Age-related osteoporosis without current pathological fracture; F32.A Depression, unspecified; E78.5 Hyperlipidemia, unspecified; M79.7 Fibromyalgia; K21.9 Gastro-esophageal reflux disease without esophagitis; I25.10 Atherosclerotic heart disease of native coronary artery without angina pectoris; G62.9 Polyneuropathy, unspecified; M62.838 Other muscle spasm; G47.00 Insomnia, unspecified; G57.21 Lesion of femoral nerve, right lower limb; K59.00 Constipation, unspecified; E78.00 Pure hypercholesterolemia, unspecified; D63.8 Anemia in other chronic diseases classified elsewhere; E66.01 Morbid (severe) obesity due to excess calories; G47.30 Sleep apnea, unspecified; J44.9 Chronic obstructive pulmonary disease, unspecified; B02.9 Zoster without complications; Z23 Encounter for immunization; Z88.8 Allergy status to other drugs, medicaments and biological substances; Z60.2 Problems related to living alone; Z68.31 Body mass index [BMI] 31.0-31.9, adult; Z96.643 Presence of artificial hip joint, bilateral; Z20.822 Contact with and (suspected) exposure to COVID-19
CPT/HCPCS: 36415; 74176; 80048; 81001; 82040; 82947; 83605; 83615; 83735; 84134; 84145; 85025; 87070; 87075; 87086; 87088; 87205; 90471; 90732; 97110; 97112; 97116; 97162; 97530; 97542; 99251; J2001; Q0162; Q2035; U0003

== ENCOUNTER 2022-09-07 15:48 | Emergency (ER) | payer OTHER ==
--- OUTSIDE RECORDS SUMMARY | 2022-09-07 16:41 | XMS REPORT | Continuity of Care Document ---
:1950 Author Organization [facility] t Address [address] [place]. [address] [place] [address] Care Team Providers Name Role Phone Mora MARTINEZ, Annette Primary Care Physician [phone] PATRICK ROMAN Attending Clinician Unavailable MARICRUZ SULLIVAN Attending Clinician Unavailable Rusty MONK, Kaitlin Attending Clinician CJ VELASCO Attending Clinician Unavailable CJ VELASCO Attending Clinician Unavailable JUAN MANUEL LOPEZ Attending Clinician Unavailable JUAN MANUEL LOPEZ Attending Clinician Unavailable Doctor Unassigned, Van Voorhis Attending Clinician Unavailable Arlene Shay RN Attending Clinician Unavailable LINDA HOPKINS Attending Clinician Unavailable Linda Hopkins MD Attending Clinician Service/[place], Surgery C Attending Clinician Unavailable RICKEY CUMMINGS Attending Clinician Unavailable RICKEY CUMMINGS Attending Clinician Unavailable Maricruz Godfrey MD Attending Clinician Shahid MARTINEZ, Alejandra Attending Clinician Jb Rice MD Attending Clinician LIBBY DANIEL Attending Clinician Unavailable Lorraine Shaver MD Attending Clinician Fredy LIVE Libby Attending Clinician Иван OROZCO, Susan Schneider Attending Clinician MERCEDES ALEXIS Attending Clinician Unavailable Amie MARTINEZ, Mercedes Sheridan Attending Clinician Ariella MARTINEZ, Iris Centeno Attending Clinician [phone] Grecia MARTINEZ, Aj Toribio Attending Clinician John MARTINEZ, Juan Manuel Lopez Attending Clinician [facility] Attending Clinician Unavailable Abel MARTINEZ, Patrick Gay Attending Clinician AlhajiColt CUSTODIAN BLOOD BANK, Marcella Attending Clinician [phone] Vaccine, Gal [facility] Attending Clinician Unavailable Veronica FAROOQ, Blake Edwards Attending Clinician Calvin Nguyen DO Attending Clinician Shaikh JUAN, Iram Attending Clinician Unknown, Attending Attending Clinician Unavailable Rylie Maloney Attending Clinician Nurse, [facility] Attending Clinician Unavailable RYLIE VILLALTA Attending Clinician Unavailable Provider, [facility] Attending Clinician Unavailable UNKNOWN, ATTENDING Attending Clinician Unavailable Laurie COYLE MD, John Attending Clinician REJI LUCIANO Attending Clinician Unavailable Reji Deutsch Attending Clinician Inna OROZCO, Aracely Schneider Attending Clinician Unavailable Adeline October Attending Clinician ADELINEOctober Attending Clinician Unavailable JOHN BEAUCHAMP Attending Clinician Unavailable Nito FAROOQ, John Attending Clinician Nola Begum RN Attending Clinician Unavailable Herb Langford MD Attending Clinician [facility] Attending Clinician Unavailable Rosetta Beauchamp MD Attending Clinician PRAVEEN AYALA Attending Clinician Unavailable Shanell POP, Nette Hayward Attending Clinician Unavailable Praveen Ayala MD Attending Clinician Aguilar SENIOR TELECOMMUNICATIONS SPECIALIST, Terri K Attending Clinician Unavailable Aguilar QUIROZ, Patrice F Attending Clinician Unavailable LUIS HALEY Attending Clinician Unavailable GENOVEVA LYONS Attending Clinician Unavailable Sean Shahid PT, Dinorah Attending Clinician Unavailable MARCELLA CAMPBELL Attending Clinician Unavailable Nurse, Pcp [facility] Team Attending Clinician Unavailab Pablo MARTINEZ, Alexandra Attending Clinician Geovanny Dong MD Attending Clinician Aly Barrett Attending Clinician Gautam OROZCO, Rain Attending Clinician Shikha Remy MD Attending Clinician RICO DANIEL Attending Clinician Unavailable Rico Daniel MD Attending Clinician PARTICK ROMAN Admitting Clinician Unavailable MARICRUZ SULLIVAN Admitting Clinician Unavailable JUAN MANUEL LOPEZ Admitting Clinician Unavailable HOLLEY ZEE Admitting Clinician Unavailable LINDA HOPKINS Admitting Clinician Unavailable Linda Hopkins MD Admitting Clinician MARICRUZ GODFREY Admitting Clinician Unavailable Maricruz Godfrey MD Admitting Clinician AJ PAIGE Admitting Clinician Unavailable Aj Paige MD Admitting Clinician ANNETTE PATTERSON Admitting Clinician Unavailable Rickey Cummings MD Admitting Clinician Laurie COYLE MD, John Admitting Clinician Patrick Roman MD Admitting Clinician MARCELLA CAMPBELL Admitting Clinician Unavailable Shikha Remy MD Admitting Clinician SHIKHA REMY Admitting Clinician Unavailable Payers Payer Name Policy Type Policy Number Effective Date Expiration Date S ource MEDICARE B [place] [id number] 2016 00:00:00 [place]ICAID OF [place] [id number] 2016 00:00:00 [facility] [id number] 2017 MEDICAID 00:00:00 Problems Condition Condition Condition Status Onset Resolution Last Treating Co mments Source Name Details Category Date Date Treatment Clinician Date Right leg Right leg Disease Active Uni vers pain pain 1-09 ity of 00:00: [place] 00 Medical Branch Perforated Perforated Disease Active 2021-07 [facility] [place] diverticul diverticul 0-17 it y of um um 00:00: [place] 00 Medical Branch Diverticul Diverticul Disease Active 2021-07 Overview : Univers itis large itis large 0-17 Formattin ity of intestine intestine 00:00: [place] of this [place] w/o w/o 00 note Medical perforatio perforatio might be Branch n or n or different abscess abscess from the w/bleeding w/bleeding original. Added automatic ally from request for surgery [id number] Pain of Pain of Disease Active 2021-07 Univers right right 0-11 ity of lower lower 00:00: [place] extremity extremity 00 [facility] Branch Wound Wound Disease Active Univers infection infection 2-22 ity of 00:00: [place] 00 [facility] Branch Abscess of Abscess of Disease Recurre Univers right right nce 2-22 ity of lower lower 00:00: [place] extremity extremity 00 [facility] Branch Bandemia Bandemia Disease Active Unive rs 2-22 ity of 00:00: [place] 00 [facility] Branch Wound Wound Disease Active 2020-07 Univers infection infection 1-28 ity of after after 00:00: [place] surgery surgery 00 [facility] Branch Surgical Surgical Disease Active 2020-07 Unive rs site site 1-27 ity of infection infection 00:[place] Non-healin Non-healin Disease Active 2020-07 U [place] g wound of g wound of 0-05 it y of lower lower 00:00: [place] extremity, extremity, 00 Me dical right, right, Branch initial initial encounter encounter Nonhealing Nonhealing Disease Active 2020-07 U [facility] surgical surgical 0-05 ity of wound, wound, 00:00: [place] initial initial 00 Medical encounter encounter Bran ch Atypical Atypical Disease Active Unive rs femoral femoral 6-21 ity of fracture, fracture, 00:[place] unspec[place] unspecifie 00 Me divina djie, Branch subsequent subsequent encounter encounter for for fracture fracture with with nonunion nonunion Other Other Disease Active 2020- Univers fracture fracture 9-27 ity of of right of right 00:00: [place] femur, femur, 00 Medical initial initial Branch encounter encounter for closed for closed fracture fracture Vitamin D Vitamin D Disease Active Uni vers deficiency deficiency 5-15 it y of 00:00: Medical Branch 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 00:[place] with is with 00 Medical current current Branch pathologic pathologic al al fracture fracture with with routine routine healing healing 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 5-14 ity of 00:00: [place] [facility] SHAMIR on SHAMIR on Disease Active 2019- Univers CPAP CPAP 5-14 ity of 00:00: [place] Medical Branch Current Current Disease Active 2020- Univers chronic chronic 5-14 ity of use of use of 00:00: [place] systemic systemic 00 Medica l steroids steroids Branch Mixed Mixed Disease Active 2019- Univers hyperlipid hyperlipid 5-14 it y of emia emia 00:00: Medical Branch Gastroesop Gastroesop Disease Active 2019- U nivers hageal hageal 5-14 ity of reflux reflux 00:00: [place] disease disease 00 Medical without without Branch esophagiti esophagiti s s Fracture, Fracture, Disease Active Uni vers femur femur 5-13 ity of 00:00: [place] 00 Medical Branch Closed Closed Disease Active Overview: Univer s displaced displaced 5-13 Formattin i ty of oblique oblique 00:00: g of this [place] fracture fracture 00 note Medica l of shaft of shaft might be Bran ch of left of left different femur, femur, from the initial initial original. encounter encounter Added automatic ally from request for surgery [id number] Arthritis Arthritis Disease Active Overview: Univers of left of left 3-09 Formattin ity o f hip hip 00:00: g of this [place] 00 note Medical might be Branch different from the original. Added automatic ally from request for surgery [id number] Osteoarthr Osteoarthr Disease Active U nivers itis of itis of 4-04 ity of left hip, left hip, 00:00[place] un[place] unspec[place]ie 00 Me dical d d Branch osteoarthr osteoarthr itis type itis type Left-sided Left-sided Disease Active U nivers low back low back 4-04 ity of pain with pain with 00:00: [place] left-sided left-sided 00 Me dical sciatica sciatica Branch Trochanter Trochanter Disease Active U nivers ic ic 4-04 ity of bursitis bursitis 00:00: [place] of left of left 00 Medical hip hip Branch S/P S/P Disease Active Univers revision revision 3-16 ity of of [...] 00 Medical Branch 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 6-03 it y of disorder, disorder, 00:00[place] single single 00 Medical episode, episode, Branch mild mild Allergies, Adverse Reactions, Alerts Allergy Allergy Status Severity Reaction(s) Onset Inactive Treating Comm ents Source Name Type Date Date Clinician Zinc Propensi Active Rash Univers ty to 2-09 ity of adverse 00:00: [place] reaction 00 [...] INGREDI 02-15 ity of 00:00: [place] 00 Medical Branch Social History Social Habit Start Date Stop Date Quantity Comments Source History SDOH Social Unive rsity of Connections [facility] Med ical Together Branch History SDOH Social Unive rsity of Connections [facility] Medical Branch History SDOH Social Unive rsity of Connections [place] Medical Membership Branch History SDOH Social Unive rsity of [facility] Medical Meetings Branch History SDOH University o f Transport Non-Med [place] M edical Branch History SDOH 2022-07-22 2022-07-22 1 University o f Alcohol Frequency 00:00:00 00:00:00 [place] M edical Branch History SDOH 2022-07-22 2022-07-22 0 University o f Alcohol Std Drinks 00:00:00 00:00:00 [place] [facility] History SDOH 2022-07-22 2022-07-22 1 University o f Alcohol Binge 00:00:00 00:00:00 [place] Medic al Branch History SDOH Social 2022-07-22 2022-07-22 4 Unive rsity of Connections Phone 00:00:00 00:00:00 [place] M edical Branch History SDOH Social 2022-07-22 2022-07-22 4 Unive rsity of Connections Living 00:00:00 00:00:00 [place] Medical [facility] History SDOH 2022-07-22 2022-07-22 0 University o f Physical Activity 00:00:00 00:00:00 [facility] [place] [facility] edical DPW Branch History SDOH 2022-07-22 2022-07-22 0 University o f Physical Activity 00:00:00 00:00:00 [facility] [place] [facility] edical MPS Branch History SDOH 2022-07-22 2022-07-22 5 University o f Financial 00:00:00 00:00:00 [place] [facility] History SDOH Food 2022-07-22 2022-07-22 1 Univers ity of Worry 00:00:00 00:00:00 [place] [facility] History SDOH Food 2022-07-22 2022-07-22 1 Univers ity of Scarcity 00:00:00 00:00:00 [place] [facility] History SDOH 2022-07-22 2022-07-22 2 University o f Transport Med 00:00:00 00:00:00 [place] Medic al Branch Exposure to 2022-07-10 2022-07-20 Not sure University of SARS-CoV-2 (event) 00:00:00 20:08:00 [facility] Branch Alcohol intake 2022-07-20 2022-07-20 Ex-drinker [place] of 00:00:00 00:00:00 (finding) [facility] Branch Education 2022-07-20 2022-07-20 21 University of 00:00:00 00:00:00 [facility] Tobacco use and 2022-01-27 2022-01-27 Smokeless tobacco Un iversity of exposure 00:00:00 00:00:00 non-user [facility] Tobacco Comment 2022-01-27 2022-01-27 sidestream Universit y of 00:00:00 00:00:00 exposure [facility] Sex [birth year] At [birth year] Universit y of 00:00:00 00:00:00 [facility] Smoking Status Start Date Stop Date Source Never smoked tobacco [facility] Medications Ordered Filled Start Stop Current Ordering Indication Dosage Frequency Signature Comments Components Source Medication Medication Date Date Medication? Clinician (SIG) Name Name doxycycline Yes [id number] 100mg Take 1 Univers hyclate 100 2-24 capsule by it y of mg capsule 00:00: mouth in [place] 00 the Medical morning Branch and 1 capsule in the evening. amoxicillin Yes [id number] 1000mg Take 2 Univers 500 mg 2-24 capsules ity of capsule 00:00: by mouth [place] 00 in the Medical morning Branch and 2 capsules in the evening. amoxicillin 2022- Yes [id number] 1000mg Take 2 Univers 500 mg 1-24 02-24 capsules ity of capsule 00:00: 05:59 by mouth [place] 00 :00 in the Medical morning Branch and 2 capsules at noon and 2 capsules in the evening. Do all this for 30 days. amoxicillin 2022- Yes [id number] 1000mg Take 2 Univers 500 mg 1-24 02-24 capsules ity of capsule 00:00: 05:59 by mouth [place] 00 :00 in the Medical morning Branch and 2 capsules at noon and 2 capsules in the evening. Do all this for 30 days. amoxicillin 0 2022- Yes [id number] 1000mg Take 2 Univers 500 mg 1-24 02-24 capsules ity of capsule 00:00: 05:59 by mouth [place] 00 :00 in the Medical morning Branch and 2 capsules at noon and 2 capsules in the evening. Do all this for 30 days. DULoxetine 2022- Yes [id number] 30mg Take 1 Univers 30 mg 1-14 02-14 capsule by ity of capsule 00:00: 05:59 mouth in [place] 00 :00 the Medical morning Branch for 30 days. polyethylen 2022- Yes [id number] 17g Take 1 Univers e glycol 07-25 Packet by ity o f 3350 17 00:00: 05:59 mouth in [place] gram powder 00 :00 the [facility] morning Branch for 30 days. pantoprazol 2022- Yes [id number] 40mg Take 1 Univers e 40 mg EC 07-25 tablet by ity of tablet 00:00: 05:59 mouth in [place] 00 :00 the [facility] morning Branch for 30 days. DULoxetine 2022- Yes [id number] 30mg Take 1 Univers 30 mg 07-25 capsule by ity of capsule 00:00: 05:59 mouth in [place] 00 :00 the [facility] morning Branch for 30 days. polyethylen 2022- Yes [id number] 17g Take 1 Univers e glycol 07-25 Packet by ity o f 3350 17 00:00: 05:59 mouth in [place] gram powder 00 :00 the [facility] morning Branch for 30 days. pantoprazol 2022- Yes [id number] 40mg Take 1 Univers e 40 mg EC 07-25 tablet by ity of tablet 00:00: 05:59 mouth in [place] 00 :00 the [facility] morning Branch for 30 days. DULoxetine 2022- Yes [id number] 30mg Take 1 Univers 30 mg 07-25 capsule by ity of capsule 00:00: 05:59 mouth in [place] 00 :00 the [facility] morning Branch for 30 days. polyethylen 2022- Yes [id number] 17g Take 1 Univers e glycol 07-25 Packet by ity o f 3350 17 00:00: 05:59 mouth in [place] gram powder 00 :00 the [facility] morning Branch for 30 days. pantoprazol 2022- Yes [id number] 40mg Take 1 Univers e 40 mg EC 07-25 tablet by ity of tablet 00:00: 05:59 mouth in [place] 00 :00 the [facility] morning Branch for 30 days. cefTRIAXone 2022- Yes [id number] 2000mg Inject Univers 2 gram 07-25- 2,000 mg ity of injection 00:00: 05:59 intravenou [place] 00 :00 sly every Medical 24 Branch (twenty-fo ur) hours for 10 days. cefTRIAXone 2022-2022- Yes [id number] 2000mg Inject Univers 2 gram 07-25 2,000 mg ity of injection 00:00: 05:59 intravenou [place] 00 :00 sly every Medical 24 Branch (twenty-fo ur) hours for 10 days. Lidocaine 2022-0 Yes [id number] Apply to Univers (BLUE-EMU 1-13 area(s) ity of LIDOCAINE 00:00: daily. [place] PATCH) 4 % 00 Medical PtMd Branch Lidocaine 2022-0 Yes [id number] Apply to Univers (BLUE-EMU 1-13 area(s) ity of LIDOCAINE 00:00: daily. [place] PATCH) 4 % 00 Medical PtMd Branch Lidocaine 2022-0 Yes [id number] Apply to Univers (BLUE-EMU 1-13 area(s) ity of LIDOCAINE 00:00: daily. [place] PATCH) 4 % 00 Medical PtMd Branch Lidocaine 2022-0 Yes [id number] Apply to Univers (BLUE-EMU 1-13 area(s) ity of LIDOCAINE 00:00: daily. [place] PATCH) 4 % 00 Medical PtMd Branch melatonin 3 2022- Yes [id number] 3mg Take 1 Univers mg tablet 07-24 tablet by ity of 00:00: 05:59 mouth at [place] 00 :00 bedtime Medical for 30 Branch days. methocarbam 2022- Yes [id number] 500mg Take 1 Univers oL 500 mg 07-24 tablet by ity of tablet 00:00: 05:59 mouth 4 [place] 00 :00 (four) Medical times Branch daily for 30 days. pregabalin 2022-0 2022- Yes [id number] 150mg Take 1 Univers 150 mg 07-24 capsule by ity of capsule 00:00: 05:59 mouth in [place] 00 :00 the Medical morning Branch and 1 capsule in the evening. Do all this for 30 days. celecoxib 2022- Yes [id number] 100mg Take 1 Univers 100 mg 07-24 capsule by ity of capsule 00:00: 05:59 mouth in [place] 00 :00 the Medical morning Branch and 1 capsule in the evening. Take with meals. Do all this for 30 days. acetaminoph 2022- Yes [id number] 650mg Take 2 Univers en 325 mg 07-24 tablets by ity of tablet 00:00: 05:59 mouth [place] 00 :00 every 6 Medical (six) Branch hours as needed for Pain (scale 1-3) for up to 30 days. amitriptyli 2022- Yes [id number] 12.5mg Take 0.5 Univers ne 25 mg 07-24 tablets by ity of tablet 00:00: 05:59 mouth at [place] 00 :00 bedtime Medical for 30 Branch days. melatonin 3 2022- Yes [id number] 3mg Take 1 Univers mg tablet 07-24 tablet by ity of 00:00: 05:59 mouth at [place] 00 :00 bedtime Medical for 30 Branch days. methocarbam 2022- Yes [id number] 500mg Take 1 Univers oL 500 mg 07-24 tablet by ity of tablet 00:00: 05:59 mouth 4 [place] 00 :00 (four) Medical times Branch daily for 30 days. pregabalin 2022- Yes [id number] 150mg Take 1 Univers 150 mg 07-24 capsule by ity of capsule 00:00: 05:59 mouth in [place] 00 :00 the Medical morning Branch and 1 capsule in the evening. Do all this for 30 days. celecoxib 2022- Yes [id number] 100mg Take 1 Univers 100 mg 07-24 capsule by ity of capsule 00:00: 05:59 mouth in [place] 00 :00 the Medical morning Branch and 1 capsule in the evening. Take with meals. Do all this for 30 days. acetaminoph 2022- Yes [id number] 650mg Take 2 Univers en 325 mg 07-24 tablets by ity of tablet 00:00: 05:59 mouth [place] 00 :00 every 6 Medical (six) Branch hours as needed for Pain (scale 1-3) for up to 30 days. amitriptyli 2022- Yes [id number] 12.5mg Take 0.5 Univers ne 25 mg 07-24 tablets by ity of tablet 00:00: 05:59 mouth at [place] 00 :00 bedtime Medical for 30 Branch days. melatonin 3 2022- Yes [id number] 3mg Take 1 Univers mg tablet 07-24 tablet by ity of 00:00: 05:59 mouth at [place] 00 :00 bedtime Medical for 30 Branch days. methocarbam 2022- Yes [id number] 500mg Take 1 Univers oL 500 mg 07-24 tablet by ity of tablet 00:00: 05:59 mouth 4 [place] 00 :00 (four) Medical times Branch daily for 30 days. pregabalin 2022- Yes [id number] 150mg Take 1 Univers 150 mg 07-24 capsule by ity of capsule 00:00: 05:59 mouth in [place] 00 :00 the Medical morning Branch and 1 capsule in the evening. Do all this for 30 days. celecoxib 2022- Yes [id number] 100mg Take 1 Univers 100 mg 07-24 capsule by ity of capsule 00:00: 05:59 mouth in [place] 00 :00 the Medical morning Branch and 1 capsule in the evening. Take with meals. Do all this for 30 days. acetaminoph 2022- Yes [id number] 650mg Take 2 Univers en 325 mg 07-24 tablets by ity of tablet 00:00: 05:59 mouth [place] 00 :00 every 6 Medical (six) Branch hours as needed for Pain (scale 1-3) for up to 30 days. amitriptyli 2022- Yes [id number] 12.5mg Take 0.5 Univers ne 25 mg 07-24 tablets by ity of tablet 00:00: 05:59 mouth at [place] 00 :00 bedtime Medical for 30 Branch days. HYDROcodone 2022- Yes [id number] 1{tbl} Take 1 U nivers -acetaminop 07-24 tablet by it y of hen 10-325 00:00: 05:59 mouth [place] mg tablet 00 :00 every 4 Medical (four) Branch hours as needed (Breakthro ugh pain scale 4-10) for up to 7 days. Indication s: acute pain HYDROcodone 2022- Yes [id number] 1{tbl} Take 1 U nivers -acetaminop 07-24 tablet by it y of hen 10-325 00:00: 05:59 mouth [place] mg tablet 00 :00 every 4 Medical (four) Branch hours as needed (Breakthro [facility] pain scale 4-10) for up to 7 days. Indication s: acute pain DULoxetine 0 Yes 30mg 30 mg, Unive rs (CYMBALTA) 1-12 Oral, ity of capsule 30 15:00: DAILY, [place] mg 00 First dose Medical on Wed Branch 07/23/22 at 0900, Until Discontinu ed, Routine amitriptyli Yes 12.5mg 12.5 mg, Univers ne (ELAVIL) 12 Oral, QHS, it y of tablet 12.5 03:00: First dose [place] mg 00 on Wed Medical 07/22/22 at Branch 2100, Until Discontinu ed, Routine lidocaine 2022- No 1{patch 1 Patch, Univers (LIDODERM) 07-23 } Topical, ity of 5 % (700 02:15: 13:46 Administer [place] mg/patch) 00 :00 over 12 Medical patch 1 Hours, Branch Patch ONCE, 1 dose, On Wed07/22/22 at 2015, Routine pregabalin Yes 150mg 150 mg, Uni vers (LYRICA) 12 Oral, BID, ity o f capsule 150 02:00: First dose [place] mg 00 (after Medical last Branch modificati on) on Wed07/22/22 at 2000, Until Discontinu ed, Routine HYDROcodone 0 Yes 1{tbl} 1 tablet, Univers -acetaminop 12 Oral, ity of hen (NORCO) 01:17: Q4HPRN, [place] 10-325 mg 37 Starting Medica l tablet 1 on Wed Branch tablet 07/22/22 at 1917, Until Discontinu ed, Routine, Breakthrou gh pain scale 4-10 cefTRIAXone 2022-0 2022- Yes 2000mg 2,000 mg, Univers (ROCEPHIN) 11 08-07 Intravenou it y of injection 17:00: 18:22 s, Q24H [place] 2,000 mg 00 :00 ABX, 14 Medical doses, Branch First dose on Wed07/22/22 at 1100, Last dose on Wed08/04/22 at 1100, Administer over 14 Days
Re ason for Anti-Infec tive: Documented Infection< br>Documen palma Infection Site: Bone
Du ration of Therapy: 14 days polyethylen 0 Yes 17g 17 g, Unive rs e glycol 11 Oral, ity of 3350 powder 15:00: DAILY, [place] 17 g 00 First dose Medical on Wed07/22/22 at 0900, Until Discontinu ed, Routine piperacilli 0 202- No 3.375g 3.375 g, Univers n-tazobacta 07-22 IV ity of m (ZOSYN) 06:30: 16:00 [place], [place] 3.375 g in 00 :09 Q8H ABX, Medic al NaCl 0.9% 19 doses, Branc h (NS) 50 mL First dose MINI-BAG (after last modificati on) on Wed07/22/22 at 0030, Last dose on Wed07/28/22 at 0030, Administer over 4 Hours, 50 mL
Reas on for Anti-Infec tive: Empiric Therapy for Suspected Infection< br>Empiric Therapy Site: Abdominal< br>Duratio n of therapy: 5 days morpHINE (2 Yes 2mg 2 mg, Slow Univers mg/mL) 11 IV Push, ity of injection 2 06:17: Q4HPRN, [place] mg 00 Starting Medical on Wed07/22/22 at 0017, Until Discontinu ed, Routine, Pain (scale 7-10) melatonin Yes 3mg 3 mg, Univers (MELATIN) 11 Oral, QHS, ity of tablet 3 mg 04:00: First dose [place] Wed07/21/22 at Branch 2200, Until Discontinu ed, Routine sennosides 0 Yes 8.6mg 8.6 mg, Uni vers (SENOKOT) 1-10 Oral, ity of tablet 8.6 15:00: DAILY, [place] mg 00 First dose Medical on Wed [employer] 07/21/22 at 0900, Until Discontinu ed, Routine pantoprazol 0 Yes 40mg 40 mg, Univ ers e 1-10 Oral, ity of (PROTONIX) 15:00: DAILY, [place] EC tablet 00 First dose Medi nancy 40 mg on [employer] 07/21/22 at 0900, Until Discontinu ed, Routine enoxaparin 2022-0 Yes 40mg 40 mg, Unive rs (LOVENOX) -10 Subcutaneo ity of injection 15:00: [place], DAILY, [place] 40 mg 00 First dose Medical on [facility] 07/21/22 at 0900, Until Discontinu ed, Routine methocarbam 0 Yes 500mg 500 mg, Un elliott oL 1-10 Oral, QID, ity of (ROBAXIN) 14:00: First dose [place] tablet 500 00 on Wed [facility] mg 07/21/22 at Branch 0800, Until Discontinu ed, Routine ferrous Yes 325mg 325 mg, Univer s sulfate -10 Oral, TID ity of tablet 325 14:00: MEALS, [place] mg 00 First dose Medical on [facility] 07/21/22 at 0800, Until Discontinu ed, Routine KCL 20 2022- No 40meq 40 mEq, Univer s mEq/15 mL 07-21 Oral, ity of solution 40 11:15: 11:10 ONCE, 1 [place] mEq 00 :00 dose, On Medical [facility] 07/21/22 at 0515, Routine piperacilli 2022- No 3.375g 3.375 g, Univers n-tazobacta 07-21 IV ity of m (ZOSYN) 11:00: 00:10 [place]back, [place] 3.375 g in 00 :16 Q8H ABX, Medic al NaCl 0.9% 21 doses, Branc h (NS) 50 mL First dose MINI-BAG on Wed07/21/22 at 0500, Last dose on Wed07/27/22 at 2100, Administer over 4 Hours, 50 mL
Reas on for Anti-Infec tive: Empiric Therapy for Suspected Infection< br>Empiric Therapy Site: Abdominal< br>Duratio n of therapy: 5 days NaCl 0.9% 0 Yes 10mL 10 mL, Univer s (NS) 1-10 Slow IV ity of injection 10:23: Push, PRN, [place] 10 mL 09 Starting Medical on Wed07/21/22 at 0423, Until Discontinu ed, Routine, line maintenanc e lidocaine 0 Yes 5mL 5 mL, Univers 1% (PF) 1-10 Subcutaneo ity of (XYLOCAINE) 10:23: [place], PRN, [place] injection 5 09 Starting Medi nancy mL on Wed07/21/22 at 0423, Until Discontinu ed, Routine, Local anesthesia iopamidol 0 2022- No [id number] 50mL 50 mL, Univers (ISOVUE 07-21 Intravenou ity o f 370-500 mL) 05:33: 05:32 s, ONCE, 1 [place] injection 00 :00 dose, On Medica l 50 mL Wed07/20/22 Branch at 2345, Routine celecoxib 0 Yes 100mg 100 mg, Univ ers (CELEBREX) 10 Oral, BID ity of capsule 100 05:30: MEALS, [place] mg 00 First dose Medical (after Branch last modificati on) on Wed07/20/22 at 2330, Until Discontinu ed, Routine pregabalin 2022- No 100mg 100 mg, [facility] [place] (LYRICA) 07-21 Oral, BID, ity of capsule 100 05:30: 22:02 First dose [place] mg 00 :01 (after Medical last Branch modificati on) on Wed07/20/22 at 2330, Until Discontinu ed, Routine ipratropium 0 Yes 3mL 3 mL, Unive rs -albuteroL 1-10 Inhalation ity of (DUONEB) 02:43: , Q6HPRN, [place] 0.5 mg-3 06 Starting Medical mg(2.5 mg on Wed base)/3 mL 07/20/22 at nebulizer 2042, solution 3 Until mL Discontinu ed, Routine, Wheezing, Bronchospa sm ondansetron 2022-0 Yes 4mg 4 mg, Slow Univers (ZOFRAN 1-10 IV Push, ity of (PF)) 02:33: Q6HPRN, [place] injection 4 07 Starting Medi nancy mg on Mon Branch 07/20/22 at 2032, Until Discontinu ed, Routine, Nausea and Vomiting (N/V) morpHINE (2 2022- No 4mg 4 mg, Slow Univers mg/mL) 07-2111 IV Push, ity of injection 4 02:33: 02:32 Q4HPRN, [place] mg 05 :05 Starting Medical on Wed Branch 07/20/22 at 2032, Until Tu07/21/22 at 2031, Routine, Pain (scale 7-10) HYDROcodone 2022- No 1{tbl} 1 tablet, Univers -acetaminop 07-2112 Oral, ity of hen (NORCO 02:33: 01:38 Q6HPRN, [place] 5) 5-325 mg 02 :10 Starting Medi nancy tablet 1 on Wed Branch tablet 07/20/22 at 2032, Until Wed07/22/22 at 1938, Routine, Pain (scale 4-6) acetaminoph Yes 650mg 650 mg, [facility] [place] en 1-10 Oral, ity of (TYLENOL) 02:33: Q6HPRN, [place] tablet 650 01 Starting Medic al mg on Wed Branch 07/20/22 at 2032, Until Discontinu ed, Routine, Pain (scale 1-3) HYDROcodone 2021-07 Yes 1{tbl} Take 1 [facility] [place] -acetaminop 2-27 tablet by ity of hen 7.5-325 00:00: mouth in [place] mg per 00 the Medical tablet morning Branch and 1 tablet in the evening. HYDROcodone 2021-07 Yes 1{tbl} Take 1 [facility] [place] -acetaminop 2-27 tablet by ity of hen 7.5-325 00:00: mouth in [place] mg per 00 the Medical tablet morning Branch and 1 tablet in the evening. HYDROcodone 2021-07- No 1{tbl} Take 1 U nivers -acetaminop 2-27 - tablet by it y of hen 7.5-325 00:00: 00:00 mouth in [place] mg per 00 :00 the Medical tablet morning Branch and 1 tablet in the evening. magnesium 2021-07 Yes 400mg Take 400 Uni vers oxide 400 2-02 mg by ity of mg (241.3 00:00: mouth [place] 00 the Medical magnesium) morning. Branc h tablet SENNA 8.6 2021-07 Yes 8.6mg Take 8.6 Uni vers mg tablet 2-02 mg by ity of 00:00: mouth [place] 00 daily. Medical Branch magnesium 2021-07 Yes 400mg Take 400 Uni vers oxide 400 2-02 mg by ity of mg (241.3 00:00: mouth [place] mg 00 the Medical magnesium) morning. Branc h tablet SENNA 8.6 2021-07 Yes 8.6mg Take 8.6 Uni vers mg tablet 2-02 mg by ity of 00:00: mouth [place] 00 daily. Medical Branch magnesium 2021-07 Yes 400mg Take 400 Uni vers oxide 400 2-02 mg by ity of mg (241.3 00:00: mouth [place] mg 00 the Medical magnesium) morning. Branc h tablet SENNA 8.2021-07 Yes 8.6mg Take 8.6 Uni vers mg tablet 2-02 mg by ity of 00:00: mouth [place] 00 daily. Medical Branch magnesium 2021-07 Yes 400mg Take 400 Uni vers oxide 400 2-02 mg by ity of mg (241.3 00:00: mouth in [place] mg 00 the Medical magnesium) morning. Branc h tablet SENNA 8.2021-07 Yes 8.6mg Take 8.6 Uni vers mg tablet 2-02 mg by ity of 00:00: mouth [place] 00 daily. Medical Branch magnesium 2021-07 Yes 400mg Take 400 Uni vers oxide 400 2-02 mg by ity of mg (241.3 00:00: mouth in [place] mg 00 the Medical magnesium) morning. Branc h tablet SENNA 8.6 2021-07 Yes 8.6mg Take 8.6 Uni vers mg tablet 2-02 mg by ity of 00:00: mouth [place] 00 daily. Medical Branch magnesium 2021-07 Yes 400mg Take 400 Uni vers oxide 400 2-02 mg by ity of mg (241.3 00:00: mouth in [place] mg 00 the Medical magnesium) morning. Branc h tablet SENNA 8.6 2021-07 Yes 8.6mg Take 8.6 Uni vers mg tablet 2-02 mg by ity of 00:00: mouth [place] daily. Medical Branch pantoprazol 2021-07 Yes 40mg Take 1 Univ ers e 40 mg EC 1-04 tablet by ity of tablet 00:00: mouth in [place] the morning. Branch KCL 20 2021-07 Yes 40meq Take 30 mL Univ ers mEq/15 mL 1-04 by mouth ity of solution 00:00: in the [place] morning. Medical Branch pantoprazol 2021-07 Yes 40mg Take 1 Univ ers e 40 mg EC 1-04 tablet by ity of tablet 00:00: mouth in [place] the morning. Branch KCL 20 2021-07 Yes 40meq Take 30 mL Univ ers mEq/15 mL 1-04 by mouth ity of solution 00:00: in the [place] morning. Medical Branch pantoprazol 2021-07 Yes 40mg Take 1 Univ ers e 40 mg EC 1-04 tablet by ity of tablet 00:00: mouth in [place] the morning. Branch KCL 20 2021-07 Yes 40meq Take 30 mL Univ ers mEq/15 mL 1-04 by mouth ity of solution 00:00: in the [place] morning. Medical Branch pantoprazol 2021-07 Yes 40mg Take 1 Univ ers e 40 mg EC 1-04 tablet by ity of tablet 00:00: mouth in [place] the morning. Branch KCL 20 2021-07 Yes 40meq Take 30 mL Univ ers mEq/15 mL 1-04 by mouth ity of solution 00:00: in the [place] morning. Medical Branch pantoprazol 2021-07 Yes 40mg Take 1 Univ ers e 40 mg EC 1-04 tablet by ity of tablet 00:00: mouth in [place] the morning. Branch KCL 20 2021-07 Yes 40meq Take 30 mL Univ ers mEq/15 mL 1-04 by mouth ity of solution 00:00: in the [place] 00 morning. Medical Branch KCL 20 2021-07 Yes 40meq Take 30 mL Univ ers mEq/15 mL 1-04 by mouth ity of solution 00:00: in the [place] 00 morning. Medical Branch KCL 20 2021-07 Yes 40meq Take 30 mL Univ ers mEq/15 mL 1-04 by mouth ity of solution 00:00: in the [place] 00 morning. Medical Branch KCL 20 2021-07 Yes 40meq Take 30 mL Univ ers mEq/15 mL 1-04 by mouth ity of solution 00:00: in the [place] morning. Medical Branch KCL 20 2021-07 Yes 40meq Take 30 mL Univ ers mEq/15 mL 1-04 by mouth ity of solution 00:00: in the [place] morning. Medical Branch pantoprazol 2021-07 2023- No 40mg Take 1 Uni vers e 40 mg EC -07-24 tablet by ity of tablet 00:00: 00:00 mouth in [place] 00 :00 the Medical morning. Branch doxycycline 2021-07 Yes 100mg Take 1 Uni vers hyclate 100 1-03 capsule by it y of mg capsule 00:00: mouth [place] 00 every 12 Medical (twelve) Branch hours. pregabalin 2021-07 Yes 100mg Take 1 Univ ers 100 mg 1-03 capsule by ity of capsule 00:00: mouth in [place] the Medical morning Branch and 1 capsule in the evening. ipratropium 2021-07 Yes 3mL Inhale 3 [facility] [place] -albuteroL 1-03 mL every 6 ity of 0.5 mg-3 00:00: (six) [place] mg(2.5 mg 00 hours as Medica l base)/3 mL needed for Bra [facility] nebulizer Wheezing solution or Bronchospa sm. celecoxib 2021-07 Yes 100mg Take 1 Unive rs 100 mg 1-03 capsule by ity of capsule 00:00: mouth in [place] the Medical morning Branch and 1 capsule in the evening. Take with meals. ferrous 2021-07 Yes 325mg Take 1 Univers sulfate 325 1-03 tablet by ity of mg (65 mg 00:00: mouth in [facility] s iron) 00 the Medical tablet morning Branch and 1 tablet at noon and 1 tablet in the evening. Take with meals. doxycycline 2021-07 Yes 100mg Take 1 Uni vers hyclate 100 1-03 capsule by it y of mg capsule 00:00: mouth [place] 00 every 12 Medical (twelve) Branch hours. pregabalin 2021-07 Yes 100mg Take 1 Univ ers 100 mg 1-03 capsule by ity of capsule 00:00: mouth in [place] 00 the Medical morning Branch and 1 capsule in the evening. ipratropium 2021-07 Yes 3mL Inhale 3 [facility] [place] -albuteroL 1-03 mL every 6 ity of 0.5 mg-3 00:00: (six) [place] mg(2.5 mg 00 hours as Medica l base)/3 mL needed for Bra nch nebulizer Wheezing solution or Bronchospa sm. celecoxib 2021-07 Yes 100mg Take 1 Unive rs 100 mg 1-03 capsule by ity of capsule 00:00: mouth in [place] 00 the Medical morning Branch and 1 capsule in the evening. Take with meals. ferrous 2021-07 Yes 325mg Take 1 [facility] sulfate 325 1-03 tablet by ity of mg (65 mg 00:00: mouth in [place] [facility]) 00 the Medical tablet morning Branch and 1 tablet at noon and 1 tablet in the evening. Take with meals. doxycycline 2021-07 Yes 100mg Take 1 Uni vers hyclate 100 1-03 capsule by it y of mg capsule 00:00: mouth [place] 00 every 12 Medical (twelve) Branch hours. pregabalin 2021-07 Yes 100mg Take 1 Univ ers 100 mg 1-03 capsule by ity of capsule 00:00: mouth in [place] 00 the Medical morning Branch and 1 capsule in the evening. ipratropium 2021-07 Yes 3mL Inhale 3 [place] -albuteroL 1-03 mL every 6 ity of 0.5 mg-3 00:00: (six) [place] mg(2.5 mg 00 hours as Medica l base)/3 mL needed for Bra nch nebulizer Wheezing solution or Bronchospa sm. celecoxib 2021-07 Yes 100mg Take 1 Unive rs 100 mg 1-03 capsule by ity of capsule 00:00: mouth in [place] 00 the Medical morning Branch and 1 capsule in the evening. Take with meals. ferrous 2021-07 Yes 325mg Take 1 Univers sulfate 325 1-03 tablet by ity of mg (65 mg 00:00: mouth in [place] [facility]) 00 the Medical tablet morning Branch and 1 tablet at noon and 1 tablet in the evening. Take with meals. doxycycline 2021-07 Yes 100mg Take 1 Uni vers hyclate 100 1-03 capsule by it y of mg capsule 00:00: mouth [place] 00 every 12 Medical (twelve) Branch hours. pregabalin 2021-07 Yes 100mg Take 1 Univ ers 100 mg 1-03 capsule by ity of capsule 00:00: mouth in [place] 00 the Medical morning Branch and 1 capsule in the evening. ipratropium 2021-07 Yes 3mL Inhale 3 [place] -albuteroL 1-03 mL every 6 ity of 0.5 mg-3 00:00: (six) [place] mg(2.5 mg 00 hours as Medica l base)/3 mL needed for Bra nch nebulizer Wheezing solution or Bronchospa sm. celecoxib 2021-07 Yes 100mg Take 1 Unive rs 100 mg 1-03 capsule by ity of capsule 00:00: mouth in [place] 00 the Medical morning Branch and 1 capsule in the evening. Take with meals. ferrous 2021-07 Yes 325mg Take 1 Univers sulfate 325 1-03 tablet by ity of mg (65 mg 00:00: mouth in [place] [facility]) 00 the Medical tablet morning Branch and 1 tablet at noon and 1 tablet in the evening. Take with meals. doxycycline 2021-07 Yes 100mg Take 1 Uni vers hyclate 100 1-03 capsule by it y of mg capsule 00:00: mouth [place] 00 every 12 Medical (twelve) Branch hours. pregabalin 2021-07 Yes 100mg Take 1 Univ ers 100 mg 1-03 capsule by ity of capsule 00:00: mouth in [place] the Medical morning Branch and 1 capsule in the evening. ipratropium 2021-07 Yes 3mL Inhale 3 [place] -albuteroL 1-03 mL every 6 ity of 0.5 mg-3 00:00: (six) [place] mg(2.5 mg 00 hours as Medica l base)/3 mL needed for Bra nch nebulizer Wheezing solution or Bronchospa sm. celecoxib 2021-07 Yes 100mg Take 1 Unive rs 100 mg 1-03 capsule by ity of capsule 00:00: mouth in [place] 00 the Medical morning Branch and 1 capsule in the evening. Take with meals. ferrous 2021-07 Yes 325mg Take 1 Univers sulfate 325 1-03 tablet by ity of mg (65 mg 00:00: mouth in [place] [facility]) 00 the Medical tablet morning Branch and 1 tablet at noon and 1 tablet in the evening. Take with meals. doxycycline 2021-07 Yes 100mg Take 1 Uni vers hyclate 100 1-03 capsule by it y of mg capsule 00:00: mouth [place] 00 every 12 Medical (twelve) Branch hours. ipratropium 2021-07 Yes 3mL Inhale 3 [place] -albuteroL 1-03 mL every 6 ity of 0.5 mg-3 00:00: (six) [place] mg(2.5 mg 00 hours as Medica l base)/3 mL needed for Bra nch nebulizer Wheezing solution or Bronchospa sm. ferrous 2021-07 Yes 325mg Take 1 Univers sulfate 325 1-03 tablet by ity of mg (65 mg 00:00: mouth [place] iron) 00 the Medical tablet morning Branch and 1 tablet at noon and 1 tablet in the evening. Take with meals. doxycycline 2021-07 Yes 100mg Take 1 Uni vers hyclate 100 1-03 capsule by it y of mg capsule 00:00: mouth [place] 00 every 12 Medical (twelve) Branch hours. ipratropium 2021-07 Yes 3mL Inhale 3 [place] -albuteroL 1-03 mL every 6 ity of 0.5 mg-3 00:00: (six) [place] mg(2.5 mg 00 hours as Medica l base)/3 mL needed for Bra nch nebulizer Wheezing solution or Bronchospa sm. ferrous 2021-07 Yes 325mg Take 1 [facility] sulfate 325 1-03 tablet by ity of mg (65 mg 00:00: mouth [place] iron) 00 the Medical tablet morning Branch and 1 tablet at noon and 1 tablet in the evening. Take with meals. doxycycline 2021-07 Yes 100mg Take 1 Uni vers hyclate 100 1-03 capsule by it y of mg capsule 00:00: mouth [place] 00 every 12 Medical (twelve) Branch hours. ipratropium 2021-07 Yes 3mL Inhale 3 [place] -albuteroL 1-03 mL every 6 ity of 0.5 mg-3 00:00: (six) [place] mg(2.5 mg 00 hours as Medica l base)/3 mL needed for Bra nch nebulizer Wheezing solution or Bronchospa sm. ferrous 2021-07 Yes 325mg Take 1 Univers sulfate 325 1-03 tablet by ity of mg (65 mg 00:00: mouth [place] iron) 00 the Medical tablet morning Branch and 1 tablet at noon and 1 tablet in the evening. Take with meals. ipratropium 2021-07 Yes 3mL Inhale 3 [place] -albuteroL 1-03 mL every 6 ity of 0.5 mg-3 00:00: (six) [place] mg(2.5 mg 00 hours as Medica l base)/3 mL needed for Bra [facility] nebulizer Wheezing solution or Bronchospa sm. ferrous 2021-07 Yes 325mg Take 1 Univers sulfate 325 03 tablet by ity of mg (65 mg 00:00: mouth [place] iron) 00 the Medical tablet morning Branch and 1 tablet at noon and 1 tablet in the evening. Take with meals. doxycycline 2021-07- No 100mg Take 1 [place] hyclate 100 07-14 capsule by i ty of mg capsule 00:00: 00:00 mouth [place] 00 :00 every 12 Medical (twelve) Branch hours. cephALEXin 2021-07- No 500mg Take 1 Uni vers 500 mg 07-14 capsule by ity of capsule 00:00: 05:59 mouth [place] 00 :00 every 6 Medical (six) Branch hours. cephALEXin 2021-07- No 500mg Take 1 Uni vers 500 mg 07-14 capsule by ity of capsule 00:00: 05:59 mouth [place] 00 :00 every 6 Medical (six) Branch hours. cephALEXin 2021-07- No 500mg Take 1 Uni vers 500 mg 07-14 capsule by ity of capsule 00:00: 05:59 mouth [place] 00 :00 every 6 Medical (six) Branch hours. cephALEXin 2021-07- No 500mg Take 1 Uni vers 500 mg 07-14 capsule by ity of capsule 00:00: 05:59 mouth [place] 00 :00 every 6 Medical (six) Branch hours. cephALEXin 2021-2022- No 500mg Take 1 Uni vers 500 mg 07-14 capsule by ity of capsule 00:00: 05:59 mouth [place] 00 :00 every 6 Medical (six) Branch hours. cephALEXin 2021-07- No 500mg Take 1 Uni vers 500 mg 07-14 capsule by ity of capsule 00:00: 05:59 mouth [place] 00 :00 every 6 Medical (six) Branch hours. cephALEXin 2021-07- No 500mg Take 1 Uni vers 500 mg 07-14 capsule by ity of capsule 00:00: 05:59 mouth [place] 00 :00 every 6 Medical (six) Branch hours. cephALEXin 2021-07- No 500mg Take 1 Uni vers 500 mg 07-14 capsule by ity of capsule 00:00: 05:59 mouth [place] 00 :00 every 6 Medical (six) Branch hours. pregabalin 2021-07- No 100mg Take 1 Uni vers 100 mg 07-14 capsule by ity of capsule 00:00: 00:00 mouth in [place] 00 :00 the Medical morning Branch and 1 capsule in the evening. celecoxib 2021-07 No 100mg Take 1 Univ ers 100 mg 07-14 capsule by ity of capsule 00:00: 00:00 mouth in [place] 00 :00 the Medical morning Branch and 1 capsule in the evening. Take with meals. Sliding 2021-07 Yes Subcutaneo Univ ers Scale 07-13 us, TID ity of Insulin - 13:00: [...] at 1400, Until Discontinu ed, Routine cephALEXin 2021-07 No 500mg 500 mg, Un [place] (KEFLEX) 07-12 Oral, Q6H, ity of capsule 500 17:00: 17:59 360 doses, [place] mg 00 :00 First dose Medical on Wed05/12/22 at 1200, Last dose on Wed08/10/22 at 0600, EDGAR
Re ason for Anti-Infec tive: Documented Infection< br>Documen palma Infection Site: Bone
Duration of Therapy: Other (see Comments) doxycycline 2021-07 No 100mg 100 mg, U nivers hyclate 07-12 [...] [place] mg 00 First dose Medical on Wed Branch 05/11/22 at 1200, Until Discontinu ed, Routine HYDROmorpho 2021-07- No .5mg 0.5 mg, Un [place] ne 0-28 10-30 Slow IV ity of (DILAUDID) 22:26: 22:25 Push, [place] injection 07 :07 [id number], Medica l 0.5 mg Starting Branch on Wed05/08/22 at 1726, Until Wed05/10/22 at 1725, Routine, Pain (scale 7-10), second line therapy MUST USE ORAL NORCO FIRST!!
Use approved by (Faculty): GENERAL SURGERY
General surgeon approving: Sandeep HYDROmorpho 2021-07- No .5mg 0.5 mg, [place] ne 0-28 10-30 Slow IV ity of (DILAUDID) 21:46: 21:45 Push, [place] injection 15 :15 Q4HPRN, Medical 0.5 mg Starting Branch on Wed05/08/22 at 1646, Until Wed05/10/22 at 1645, Routine, Pain (scale 7-10)
U se approved by (Faculty): GENERAL SURGERY
General surgeon approving: Sandeep piperacilli 2021-07 No 3.375g 3.375 g, Univers n-tazobacta 005-12 [...] Tissue
Duration of Therapy: 7 days piperacilli 2021-07 No 3.375g 3.375 g, Univers n-tazobacta 05-12 IV [...] Tissue
Duration of Therapy: 7 days piperacilli 2021-07 No 3.375g 3.375 g, Univers n-tazobacta 05-12 IV ity of m (ZOSYN) 04:30: 00:43 [...]
Duration of Therapy: 7 days D10W 10 2021-07 Yes at 40 Univers IV infusion 0-28 mL/hr, IV ity of 03:15: Infusion, [place] [id number] CONTINUOUS Medical , Starting Branch on Apryl 05/07/22 at 2215, Until Discontinu ed, Routine D10W 10 2021-07 Yes at 40 Univers IV infusion 0-28 mL/hr, IV ity of 03:15: Infusion, [place] 00 CONTINUOUS Medical , Starting Branch on [place] 05/07/22 at 2215, Until Discontinu ed, Routine D10W 10 % 2021-07- No at 40 Univer s IV infusion 0-28 11-01 mL/hr, IV it y of 03:15: 17:14 Infusion, [place] 00 :00 CONTINUOUS Medical , Starting Branch on [place] 05/07/22 at 2215, Until 05/12/22 at 1214, Routine [...] 2021-07- No 1{tbl} 1 tablet, Univers -acetaminop 05-07 Oral, ity of hen (NORCO 19:15: 19:35 ONCE, 1 [place] 5) 5-325 mg 00 :00 dose, On Medi nancy tablet 1 [place] Branch tablet 05/07/22 at 1415, Routine, PACU FENTanyl PF 2021-07- No 25ug 25 mcg, Un [place] (SUBLIMAZE 0-07 05-27 Slow IV ity o f (PF)) 19:00: 19:59 Push, [place] injection 26 :24 Q5MIN PRN, Medi nancy 25 mcg 4 doses, Branch Starting on Wed05/07/22 at 1400, Until Wed05/07/22 at 1459, Routine, Pain (scale 4-6), PACU [...] 1999, Until Discontinu ed, Routine D10W 10 2021-07- No at 50 Univer s IV infusion 0-27 10-27 mL/hr, IV it y of 00:00: 16:32 Infusion, [place] 00 :12 CONTINUOUS Medical , Starting Branch on Wed05/06/22 at 1900, Until Wed05/07/22 at 1132, Routine HYDROmorpho 2021-07- No .5mg 0.5 mg, Un [place] ne 0-05-08 Slow IV ity of (DILAUDID) 19:27: 19:26 Push, [place] injection 39 :39 Q4HPRN, Medical 0.5 mg Starting Branch on Wed05/06/22 at 1427, Until Wed05/08/22 at 1426, Routine, Pain (scale 7-10)
U se approved by (Faculty): GENERAL SURGERY
General surgeon approving: Sandeep fluconazole 2021-07- No 400mg 400 mg, U nivers (DIFLUCAN) 05-07 Oral, ity of tablet 400 15:45: 19:09 [...] 1999, Until Discontinu ed, Routine Sliding 2021-07 No Subcutaneo Uni vers Scale 0-26 11-02 [...] 0-25 Oral, ity of (PROTONIX) 14:00: DAILY, [place] EC tablet 00 First dose Medi nancy 40 mg on Wed Branch 05/05/22 at 0900, Until Discontinu ed, Routine pantoprazol 2021-07 Yes 40mg 40 mg, Univ ers e 0-25 Oral, ity of (PROTONIX) 14:00: DAILY, [place] EC tablet 00 First dose Medi nancy 40 mg on Wed Branch 05/05/22 at 0900, Until Discontinu ed, Routine pantoprazol 2021-07 Yes 40mg 40 mg, Univ ers e 0-25 Oral, ity of (PROTONIX) 14:00: DAILY, [place] EC tablet 00 First dose Medi nancy 40 mg on Wed Branch 05/05/22 at 0900, Until Discontinu ed, Routine magnesium 2021-07- No 2g 2 g, IV Univ ers sulfate in 0-25 10-25 Piggyback, it y of water 2 12:15: 12:51 Administer [place] gram/50 mL 00 :00 over 60 Medica l (4 %) Minutes, Branch infusion 2 ONCE, 1 g dose, On Wed05/05/22 at 0715, Routine potassium 2021-07 No 20meq 20 mEq, IV Univers chloride in 0-25 10-25 Piggyback, i ty of water (KCL) 12:15: 13:56 ONCE, 1 [place] 20 mEq/100 00 :00 dose, On Medic al mL RTU IVPB Wed 20 mEq 05/05/22 at 0715, 100 mL ketorolac 2021-07- No 15mg 15 mg, Unive rs (TORADOL) 0-25 10-25 Slow IV ity of injection 07:00: 06:57 Push, [place] 15 mg 00 :00 ONCE, 1 Medical dose, On Branch Wed05/05/22 at 0200, Routine D10W 10 % 2021-07- No at 100 Unive rs IV infusion 0-24 10-25 mL/hr, IV it y of 22:45: 17:11 Infusion, [place] 00 :03 CONTINUOUS Medical , Starting Branch on Wed05/04/22 at 1745, Until Wed05/05/22 at 1211, Routine acetaminoph 2021-07- No 1000mg 1,000 mg, Univers en ADULT 0- 10-25 IV ity of (OFIRMEV) 19:00: 11:33 [...] 00 :28 , Starting Medic al on Sun Branch 05/03/22 at 2100, Until Wed05/04/22 at 1645, 1,000 mL, at 100 mL/hr morphine ER 2021-07 Yes 15mg 15 mg, Univ ers (MS CONTIN) 0-24 Oral, ity of 12 hr 01:00: Q12H, [place] tablet 15 00 First dose Medi nancy mg on [facility] 05/03/22 at 2000, Until Discontinu ed, Routine morphine ER 2021-07 Yes 15mg 15 mg, Univ ers (MS CONTIN) 0-24 Oral, ity of 12 hr 01:00: Q12H, [place] tablet 15 00 First dose Medi nancy mg on [facility] 05/03/22 at 2000, Until Discontinu ed, Routine morphine ER 2021-07 Yes 15mg 15 mg, Univ ers (MS CONTIN) 0-24 Oral, ity of 12 hr 01:00: Q12H, [place] tablet 15 00 First dose Medi nancy mg on [facility] 05/03/22 at 2000, Until Discontinu ed, Routine pregabalin 2021-07 No 50mg 50 mg, Univ ers (LYRICA) 0-24 10-26 Oral, BID, ity of capsule 50 01:00: 19:23 First dose [place] mg 00 :30 on [facility] 05/03/22 Branch at 1999, Until Discontinu ed, Routine celecoxib 2021-07 Yes 100mg 100 mg, Univ ers (CELEBREX) 0-23 Oral, BID ity of capsule 100 22:00: MEALS, [place] mg 00 First dose Medical on [facility] 05/03/22 at 1700, Until Discontinu ed, Routine celecoxib 2021-07 Yes 100mg 100 mg, Univ ers (CELEBREX) 0-23 Oral, BID ity of capsule 100 22:00: MEALS, [place] mg 00 First dose Medical on [facility] 05/03/22 at 1700, Until Discontinu ed, Routine celecoxib 2021-07 Yes 100mg 100 mg, Univ ers (CELEBREX) 0-23 Oral, BID ity of capsule 100 22:00: MEALS, [place] mg 00 First dose Medical on [facility] 05/03/22 at 1700, Until Discontinu ed, Routine acetaminoph 2021-07 No 1000mg 1,000 mg, Univers en ADULT 0- 10-24 IV ity of (OFIRMEV) 19:00: 11:10 Infusion, [place] injection 00 :00 at 400 Medical 1,000 mg mL/hr Branch Administer over 15 Minutes, Q8H, 3 doses, First dose (after last reorder) on [place] 05/03/22 at 1400, Last dose on Wed05/04/22 [...] Medica l CONTINUOUS Branch , Starting on Wed05/03/22 at 0745, Until Wed05/03/22 at 2218 D5W 0.9% 2021-07- No 1000mL at 100 Univ ers NaCl (NS) 0-23 10-23 mL/hr, ity of IV infusion 07:45: 11:45 1,000 mL, [place] 1,000 mL 00 :05 IV Medical Infusion, Branch CONTINUOUS , Starting on Wed05/03/22 at 0245, Until Wed05/03/22 at 0645, Routine glucagon 2021-07 Yes 1mg 1 mg, Univers (GLUCAGEN 0-23 Intramuscu ity of DIAGNOSTIC 06:35: [place], PRN, [place] KIT) 32 Starting Medical injection 1 on [facility] 05/03/22 at 0135, Until Discontinu ed, EDGAR, Blood Glucose < or = 70 mg/dL and patient is unable to swallow or has mental changes. dextrose 50 2021-07 Yes 25mL 25 mL, Univ ers % in water 0-23 Slow IV ity of (D50W) 06:35: Push, PRN, [place] injection 32 Starting Medica l 25 mL on [facility] 05/03/22 at 0135, Until Discontinu ed, EDGAR, Blood Glucose < or = 70 mg/dL and patient is unable to swallow or has mental status changes. glucagon 2021-07 Yes 1mg 1 mg, Univers (GLUCAGEN 0-23 Intramuscu ity of DIAGNOSTIC 06:35: [place], PRN, [place] KIT) 32 Starting Medical injection 1 on [facility] 05/03/22 at 0135, Until Discontinu ed, EDGAR, Blood Glucose < or = 70 mg/dL and patient is unable to swallow or has mental changes. dextrose 50 2021-07 Yes 25mL 25 mL, Univ ers % in water 0-23 Slow IV ity of (D50W) 06:35: Push, PRN, [place] injection 32 Starting Medica l [facility] 05/03/22 at 0135, Until Discontinu ed, EDGAR, Blood Glucose < or = 70 mg/dL and patient is unable to swallow or has mental status changes. glucagon 2021-07 Yes 1mg 1 mg, Univers (GLUCAGEN 0-23 Intramuscu ity of DIAGNOSTIC 06:35: [place], [place]N, [place] KIT) 32 Starting Medical injection 1 on [facility] 05/03/22 at 0135, Until Discontinu ed, EDGAR, Blood Glucose < or = 70 mg/dL and patient is unable to swallow or has mental changes. dextrose 50 2021-07 Yes 25mL 25 mL, Univ ers % in water 0-23 Slow IV ity of (D50W) 06:35: Push, PRN, [place] injection 32 Starting Medica l 25 mL on [facility] 05/03/22 at 0135, Until Discontinu ed, EDGAR, Blood Glucose < or = 70 mg/dL and patient is unable to swallow or has mental status changes. HYDROmorpho 2021-07 No .5mg 0.5 mg, [place] ne 0- 10-24 Slow IV ity of (DILAUDID) 19:25: 19:24 Push, [place] injection 45 :45 Q4HPRN, Medical 0.5 mg Starting Branch on 05/02/22 at 1425, Until 05/04/22 at 1424, Routine, Pain (scale 7-10)
U se approved by (Faculty): GENERAL SURGERY
General surgeon approving: elisa ketorolac 2021-07 No 15mg 15 mg, Unive rs (TORADOL) 005-02 Intramuscu ity of injection 18:30: 19:03 lar, Q6H [place] 15 mg 00 :47 ABX, 20 Medical doses, Branch First dose (after last modificati on) on 05/02/22 at 1330, Last dose on Apryl 05/07/22 at 0730, Routine lactated 2021-07- No 1000mL at 100 Univ ers ringers IV 0 10-23 mL/hr, ity of infusion 14:45: 06:35 1,000 mL, [place] 1,000 mL 00 :55 IV Medical Infusion, Branch CONTINUOUS , Starting on 05/02/22 at 0945, Until 05/03/22 at 0135, Routine KCL 20 2021-07 Yes 40meq 40 mEq, Univers mEq/15 mL 0-22 Oral, ity of solution 40 14:00: DAILY, [place] mEq 00 First dose Medical on [facility] Branch 05/02/22 at 0900, Until Discontinu ed, Routine KCL 2021-07 Yes 40meq 40 mEq, Univers mEq/15 mL 0-22 Oral, ity of solution 40 14:00: DAILY, [place] mEq 00 First dose Medical on [facility] Branch 05/02/22 at 0900, Until Discontinu ed, Routine KCL 2021-07 Yes 40meq 40 mEq, Univers mEq/15 mL 0-22 Oral, ity of solution 40 14:00: DAILY, [place] mEq 00 First dose Medical on [facility] Branch 05/02/22 at 0900, Until Discontinu ed, Routine acetaminoph 2021-07- No 1000mg 1,000 mg, Univers en ADULT 05-02 IV ity of ([facility]) 19:00: 10:52 Infusion, [place] injection 00 [...] On Medic al mL RTU IVPB Wed Branch 20 mEq 05/01/22 at 0900, 100 mL acetaminoph 2021-07 No 1000mg 1,000 mg, Univers en ADULT 05-01 IV ity of ([facility]) 19:00: 11:29 Infusion, [place] injection 00 :00 at 400 Medical 1,000 mg mL/hr Branch Administer over 15 Minutes, Q8H, 3 doses, First dose (after last reorder) on Wed04/30/22 at 1400, Last dose on Wed05/01/22 at 0600, Routine
Indicatio n: Perioperat sarabjit Patient calcium 2021-07 No 1g 1 g, IV Univer s gluconate 1 04-30 Infusion, it y of g in NaCl 12:00: 12:01 at 100 [place] 50 mL 00 :00 mL/hr Medical (ISO-OSM) Administer Bran ch RTU IV over 30 infusion 1 Minutes, g ONCE, 1 dose, On Apryl 04/30/22 at 0700, Routine potassium 2021-07 No 20meq 20 mEq, IV Univers chloride in 0-20 10-20 Piggyback, i ty of water (KCL) 12:00: 13:42 ONCE, 1 [place] 20 mEq/100 00 :00 dose, On Medic al mL RTU IVPB Apryl Branch 20 mEq 04/30/22 at 0700, 100 mL potassium 2021-07 No 15mmol 15 mmol, U nivers phosphate 004-30 IV ity of 15 mmol in 12:00: 15:30 Piggyback, [place] NaCl 0.9% 00 :00 ONCE, 1 Medical (NS) 250 mL dose, On Bran ch piggyback Apryl 04/30/22 at 0700, 250 mL D5W 0.9% 2021-07 No 1000mL at 100 Univ ers NaCl (NS) 05-02 mL/hr, ity of IV infusion 21:45: 13:33 1,000 mL, [place] 1,000 mL 00 :57 IV Medical Infusion, Branch CONTINUOUS , Starting on 04/29/22 at 1645, Until 05/02/22 at 0833, Routine dextrose 50 2021-07- No 1{syrin 50 mL (1 Univers % in water 04-29 ge} Syringe), ity of (D50W) 21:30: 20:56 Slow IV [place] injection 00 :00 Push, Medical 50 mL ONCE, 1 Branch dose, On 04/29/22 at 1630, Routine calcium 2021-07 No 1g 1 g, IV Univer s gluconate 1 04-29 Infusion, it y of g in NaCl 20:30: 21:23 at 100 [place] 50 mL 00 :00 mL/hr Medical (ISO-OSM) Administer Bran ch RTU IV over 30 infusion 1 Minutes, g ONCE, 1 dose, On 04/29/22 at 1530, Routine metoprolol 2021-07 No 5mg 5 mg, Unive rs (LOPRESSOR) 04-29 Intravenou i ty of injection 5 20:30: 20:11 s, ONCE, 1 [place] mg 00 :00 dose, On Medical Wed Branch 04/29/22 at 1530, Routine magnesium 2021-07 No 2g 2 g, IV Univ ers sulfate in 04-29 Piggyback, it y of water 2 20:30: 22:28 Administer [place] gram/50 mL 00 :00 over 60 Medica l (4 %) Minutes, Branch infusion 2 ONCE, 1 g dose, On Wed04/29/22 at 1530, Routine acetaminoph 2021-07 1000mg 1,000 mg, Univers en ADULT 004-30 IV ity of (OFIRMEV) 19:00: 11:38 Infusion, [place] injection 00 :00 at 400 Medical 1,000 mg mL/hr Branch Administer over 15 Minutes, Q8H, 3 doses, First dose (after last reorder) on Wed04/29/22 at 1400, Last dose on Apryl 04/30/22 at 0600, Routine
Indicatio n: Perioperat sarabjit Patient morpHINE (4 2021-07 4mg 4 mg, Slow Univers mg/mL) 05-02 IV Push, ity of injection 4 01:15: 19:26 Q2HPRN, [place] mg 00 :09 Starting Medical on [facility] Branch 04/28/22 at 2015, Until 05/02/22 at 1426, Routine, Pain (scale 7-10) phenoL 2021-07 Yes [id number] 1{spray 1 [place], Univers (SORE 0-19 } Oral, PRN, ity of THROAT 01:03: Starting [place] (PHENOL)) 41 on [facility] Medical 1.4 % spray 04/28/22 Bran ch bottle 1 at 2002, [place] Until Discontinu ed, Routine, Sore throat phenoL 2021-07 Yes [id number] 1{spray 1 [place], Univers (SORE 0-19 } Oral, PRN, ity of THROAT 01:03: Starting [place] (PHENOL)) 41 on [facility] Medical 1.4 % spray 04/28/22 Bran ch bottle 1 at 2002, [place] Until Discontinu ed, Routine, Sore throat phenoL 2021-07 Yes [id number] 1{spray 1 [place], Univers (SORE 0-19 } Oral, PRN, ity of THROAT 01:03: Starting [place] (PHENOL)) 41 on [facility] Medical 1.4 % spray 04/28/22 Bran ch bottle 1 at 2002, [place] Until Discontinu ed, Routine, Sore throat potassium 2021-07 No 20meq 20 mEq, IV Univers chloride in 04-29 Piggyback, i ty of water (KCL) 23:00: 01:09 ONCE, 1 [place] 20 mEq/100 00 :00 dose, On Medic al mL RTU IVPB Wed Branch 20 mEq 04/28/22 at 1800, 100 mL calcium 2021-07- No 1g 1 g, IV Univer s gluconate 1 04-28 Infusion, it y of g in NaCl 21:45: 22:45 at 100 [place] 50 mL 00 :00 mL/hr Medical (ISO-OSM) Administer Bran ch RTU IV over 30 infusion 1 Minutes, g ONCE, 1 dose, On Wed04/28/22 at 1645, Routine lactated 2021-07 No [id number] 1000mL at 999 Univers ringers IV 04-28 mL/hr, ity of infusion 21:30: 22:00 1,000 mL, [place] 1,000 mL 00 :00 Intravenou Medic al s, ONCE, 1 Branch dose, On Wed04/28/22 at 1630, Routine levalbutero 2021-07 No 1.25mg 1.25 mg, Univers l (XOPENEX) 05-01 Inhalation i ty of nebulizer 20:15: 12:02 , Q6H, [place] solution 00 :24 First dose Medic al 1.25 mg (after Branch last modificati on) on Wed04/28/22 at 1515, Until Discontinu ed, Routine acetaminoph 2021-07 No 1000mg 1,000 mg, Univers en ADULT 0-04-29 IV ity of (OFIRMEV) 19:00: 18:59 Infusion, [place] injection 00 :00 at 400 Medical 1,000 mg mL/hr Branch Administer over 15 Minutes, Q8H, 3 doses, First dose (after last reorder) on Wed04/28/22 at 1400, Last dose on Wed04/29/22 at 0600, Routine
Indicatio n: Perioperat sarabjit Patient acetaminoph 2021-07 No 1000mg 1,000 mg, Univers en ADULT 0-28 04- IV ity of (OFIRMEV) 19:00: 18:59 Infusion, [place] injection 00 :00 at 400 Medical 1,000 mg mL/hr Branch Administer over 15 Minutes, Q8H, 3 doses, First dose (after last reorder) on Wed04/28/22 at 1400, Last dose on Wed04/29/22 at 0600, Routine
Indicatio n: Perioperat sarabjit Patient lidocaine 2021-07 No 5mL 5 mL, Univer s 1% (PF) 0-18 18 Subcutaneo ity o f (XYLOCAINE) 15:45: 15:45 us, ONCE, [place] injection 5 00 :00 1 dose, On Me dical mL Branch 04/28/22 at 1045, Routine NaCl 0.9% 2021-07 Yes 10mL 10 mL, Univer s (NS) 0-18 Slow IV ity of injection 15:41: Push, PRN, [place] 10 mL 17 Starting Medical on [facility] 04/28/22 at 1041, Until Discontinu ed, Routine, line maintenanc e NaCl 0.9% 2021-07 Yes 10mL 10 mL, Univer s (NS) 0-18 Slow IV ity of injection 15:41: Push, PRN, [place] 10 mL 17 Starting Medical on [facility] 04/28/22 at 1041, Until Discontinu ed, Routine, line maintenanc e NaCl 0.9% 2021-07 Yes 10mL 10 mL, Univer s (NS) 0-18 Slow IV ity of injection 15:41: Push, PRN, [place] 10 mL 17 Starting Medical on [facility] 04/28/22 at 1041, Until Discontinu ed, Routine, line maintenanc e NaCl 0.9% 2021-07 Yes 10mL 10 mL, Univer s (NS) 0-18 Slow IV ity of injection 15:41: Push, PRN, [place] 10 mL 17 Starting Medical on [facility] 04/28/22 at 1041, Until Discontinu ed, Routine, line maintenanc e pantoprazol 2021-07 Yes 40mg 40 mg, Univ ers e 0-18 Slow IV ity of (PROTONIX) 15:15: Push, [place] injection 00 Q24H, Medical 40 mg First dose Branch on Wed04/28/22 at 1015, Until Discontinu ed pantoprazol 2021-07 No 40mg 40 mg, Uni vers e [...] g, IV Univ ers sulfate in 0-18 10- Piggyback, it y of D5W 1 10:15: 11:22 ONCE, 1 [place] gram/100 mL 00 :00 dose, On [facility] RTU IV Branch Piggyback 1 04/28/22 g at 0515, Administer over 60 Minutes, 100 mL lactated 2021-07- No [id number] 1000mL at 999 Univers ringers IV 0-18 [...] allowed dose, contact prescriber .
piperacilli 2021-07- No 3.375g 3.375 g, Univers n-tazobacta 0-18 05-13 IV ity of m (ZOSYN) 06:30: 06:29 [...] No 3.375g 3.375 g, Univers n-tazobacta 0-18 10-26 IV ity of m (ZOSYN) 06:30: 17:35 [...] br>Duratio n of Therapy: 14 days lactated 2021-07 No 1000mL at 999 Univ ers ringers [...] mg-3 16 Starting Medical mg(2.5 mg on Wed)/3 mL 04/27/22 nebulizer at 2352, solution 3 Until mL Discontinu ed, Routine, Wheezing, Bronchospa sm ipratropium 2021-07 Yes 3mL 3 mL, Unive rs -albuteroL 0-18 Inhalation ity of (DUONEB) 04:52: , Q6HPRN, [place] 0.5 mg-3 16 Starting Medical mg(2.5 mg on Wed)/3 mL 04/27/22 nebulizer at 2352, solution 3 [...] maximum allowed dose, contact prescriber .
dexMEDEtomi 2021-07- No .2ug/kg 0.2-1.5 Univers dine 400 0-18 [...] mcg/kg/min ity o f 04:26: ?72.6 kg [place] 03 (2.178-21. Medical 78 mL/hr, Branch rounded [...] be discarded after 12 hours.
propofoL IV 2021-07 5ug/kg/ 5-50 Un [place] infusion 0-18 10-19 min mcg/kg/min ity of 04:26: 14:11 ?72.6 kg [place] 03 :56 (2.178-21. Medical 78 mL/hr, Branch [...] allowed dose, contact prescriber .
fentaNYL PF 2021-07- No 25ug/h 25-200 U nivers (SUBLIMAZE) 0-18 [...] 0-18 Oral, ity of (TYLENOL) 04:14: Q6HPRN, [place] tablet 650 26 Starting Medic al mg on Wed Branch 04/27/22 at 2314, Until Discontinu ed, Routine, Pain (scale 1-3), Temp > 38.5 C acetaminoph 2021-07- No 1000mg 1,000 mg, Univers en ADULT 0-18 10-18 IV ity of (OFIRMEV) 03:00: 18:30 Infusion, [place] injection 00 :00 at 400 Medical 1,000 mg mL/hr Branch Administer over 15 Minutes, Q8H, 3 doses, First dose on Wed04/27/22 at 2200, Last dose on Wed04/28/22 at 1400, Routine
Indicatio n: Perioperat sarabjit Patient bupivacaine 2021-07- No PRN, Unive rs (preserv 0-18 10-18 Starting ity of free) 02:05: 03:28 on [facility] (SENSORCAIN 00 :19 04/27/22 Medi nancy E MPF) 0.25 at 2105, Bran ch % (2.5 Intra-op mg/mL) 30 mL, bupivacaine liposome (PF) (EXPAREL (PF)) 1.3 % (13.3 mg/mL) 266 mg, NaCl 0.9% (NS) 50 mL sodium 2021-07- No PRN, Univers chloride 0-18 04-28 Starting ity of 0.9 % 00:43: 03:28 on Wed [place] irrigation 00 :19 04/27/22 Medic al solution at 1943, Branch Until [facility] 04/27/22 at 2228, Intra-op enoxaparin 2021-07 Yes 40mg 40 mg, Unive rs (LOVENOX) 0-17 Subcutaneo ity of injection 22:00: us, DAILY, [place] 40 mg 00 First dose Medical on [facility] 04/27/22 at 1700, Until Discontinu ed, Routine lactated 2021-07 Yes 1000mL at 100 Unive rs ringers IV 0-17 mL/hr, ity of infusion 22:00: 1,000 mL, [place] 1,000 mL 00 IV Medical Infusion, Branch CONTINUOUS , Starting on [facility] 04/27/22 at 1700, Until Discontinu ed, Routine enoxaparin 2021-07 Yes 40mg 40 mg, Unive rs (LOVENOX) 0-17 Subcutaneo ity of injection 22:00: us, DAILY, [place] 40 mg 00 First dose Medical on [facility] 04/27/22 at 1700, Until Discontinu ed, Routine enoxaparin 2021-07 Yes 40mg 40 mg, Unive rs (LOVENOX) 0-17 Subcutaneo ity of injection 22:00: us, DAILY, [place] 40 mg 00 First dose Medical on [facility] 04/27/22 at 1700, Until Discontinu ed, Routine enoxaparin 2021-07 Yes 40mg 40 mg, Unive rs (LOVENOX) 0-17 Subcutaneo ity of injection 22:00: us, DAILY, [place] 40 mg 00 First dose Medical on [facility] 04/27/22 at 1700, Until Discontinu ed, Routine lactated 2021-07- No 1000mL at 100 Univ ers ringers IV 0-17 10-19 mL/hr, ity of infusion 22:00: 20:48 1,000 mL, [place] 1,000 mL 00 :58 IV Medical Infusion, Branch CONTINUOUS , Starting on Wed04/27/22 at 1700, Until Wed04/29/22 at 1548, Routine ondansetron 2021-07 Yes 4mg 4 mg, Slow Univers (ZOFRAN 0-17 IV Push, ity of (PF)) 21:41: Q6HPRN, [place] injection 4 Starting Medi nancy mg on Wed Branch 04/27/22 at 1641, Until Discontinu ed, Routine, Nausea and Vomiting (N/V) ondansetron 2021-07 Yes 4mg 4 mg, Slow Univers (ZOFRAN 0-17 IV Push, ity of (PF)) 21:41: Q6HPRN, [place] injection 4 Starting Medi nancy mg on Wed Branch 04/27/22 at 1641, Until Discontinu ed, Routine, Nausea and Vomiting (N/V) ondansetron 2021-07 Yes 4mg 4 mg, Slow Univers (ZOFRAN 0-17 IV Push, ity of (PF)) 21:41: Q6HPRN, [place] injection 4 Starting Medi nancy mg on Wed Branch [...] as mg 34 Starting Medical on Wed Branch 04/27/22 at 1628, Until Discontinu ed, Routine, Pain (scale 7-10) morpHINE (4 2021-07 4mg 4 mg, Slow Univers mg/mL) 0-17 10-19 IV Push, ity of injection 4 21:28: 01:07 Q4HPRN, [place] mg 34 :[address] [facility] 04/27/22 at 1628, Until Wed04/28/22 at 2007, Routine, Pain (scale 7-10) NaCl 0.9% 2021-07- No 1000mL at 999 Uni vers (NS) bolus 0-17 10-17 mL/hr, ity of infusion 15:15: 16:09 1,000 mL, [place] 1,000 mL 00 :00 IV Medical Infusion, Branch ONCE, 1 dose, On [facility] 04/27/22 at 1015, STAT NaCl 0.9% 2021-07- No 1000mL at 999 Uni vers (NS) bolus 0-17 10-17 mL/hr, ity of infusion 15:15: 16:09 1,000 mL, [place] 1,000 mL 00 :00 IV Medical Infusion, Branch ONCE, 1 dose, On [facility] 04/27/22 at 1015, STAT morpHINE (4 2021-07 No 4mg 4 mg, Slow Univers mg/mL) 004-27 IV Push, ity of injection 4 13:45: 13:43 ONCE, 1 [place] mg 00 :00 dose, On Medical [facility] 04/27/22 at 0845, STAT piperacilli 2021-07 No 3.375g 3.375 g, Univers n-tazobacta 004-27 IV ity of m (ZOSYN) 13:15: 14:24 [place]back, [place] 3.375 g in 00 :00 ONCE, 1 Medica l NaCl 0.9% dose, On Branch (NS) 50 mL [facility] MINI-BAG 04/27/22 at 0815, Administer over 30 Minutes, 50 mL
Reas on for Anti-Infec tive: Empiric Therapy for Suspected Infection< br>Empiric Therapy Site: Abdominal< br>Duratio n of therapy: 72 hours FENTanyl PF 2021-07 No 25ug 25 mcg, Un [place] (SUBLIMAZE 0-17 - Intramuscu it y of (PF)) 10:00: 09:59 lar, ONCE, [place] injection 00 :00 1 dose, On Medi nancy [address] [facility] 04/27/22 at 0500, Routine doxycycline 2021-07- No 100mg 100 mg, U nivers hyclate 0-12 -17 Oral, BID, ity o f (Vibramycin 17:30: 12:59 10 doses, [place] ) capsule 00 :00 First dose Medi nancy 100 mg on Wed Branch 04/22/22 at 1230, Last dose on 04/26/22 at 2000, EDGAR
Re ason for Anti-Infec tive: Documented Infection< br>Documen palma Infection Site: Bone
Du ration of Therapy: Other (see Comments) cephALEXin 2021-07- No 250mg 250 mg, Un [place] (KEFLEX) 0-17 Oral, QID, ity of capsule 250 17:30: 16:59 20 doses, [place] mg 00 :00 First dose Medical on Wed Branch 04/22/22 at 1230, Last dose on 04/27/22 at 0800, EDGAR
Re ason for Anti-Infec tive: Documented Infection< br>Documen palma Infection Site: Bone
Du ration of Therapy: Other (see Comments) pantoprazol 2021-07- No Take by Un [place] e sodium 0-12 10-12 mouth. ity of (PROTONIX 15:52: 00:00 [place] ORAL) 44 :00 [facility] Branch pantoprazol 2021-07- No Take by Un [place] e sodium 0-12 10-12 mouth. ity of (PROTONIX 15:52: 00:00 [place] ORAL) 44 :00 [facility] Branch pantoprazol 2021-07- No Take by Un [place] e sodium 0-12 10-12 mouth. ity of (PROTONIX 15:52: 00:00 [place] ORAL) 44 :00 [facility] Branch ketorolac 2021-07- No 15mg 15 mg, Unive rs (TORADOL) 0-12 10-12 Intramuscu ity of injection 15:36: 15:45 lar, ONCE, [place] 15 mg 00 :00 1 dose, On Medical Wed Branch 04/22/22 at 1045, Routine cefadroxil 2021-07- No [id number] 500mg Take 1 Univers 500 mg 012 -11 capsule by ity of capsule 00:00: 05:59 mouth in [place] 00 :00 the Medical morning Branch and 1 capsule in the evening. Do all this for 90 days. cefadroxil 2021-07- No [id number] 500mg Take 1 Univers 500 mg 0-12 -11 capsule by ity of capsule 00:00: 05:59 mouth in [place] 00 :00 [facility] and 1 capsule in the evening. Do all this for 90 days. cefadroxil 2021-07- No [id number] 500mg Take 1 Univers 500 mg 0-12 -11 capsule by ity of capsule 00:00: 05:59 mouth in [place] 00 :00 [facility] and 1 capsule in the evening. Do all this for 90 days. cefadroxil 2021-07- No [id number] 500mg Take 1 Univers 500 mg 0-12 -11 capsule by ity of capsule 00:00: 05:59 mouth in [place] 00 :00 [facility] and 1 capsule in the evening. Do all this for 90 days. cefadroxil 2021-07- No [id number] 500mg Take 1 Univers 500 mg 0-12 -11 capsule by ity of capsule 00:00: 05:59 mouth in [place] 00 :00 [facility] and 1 capsule in the evening. Do all this for 90 days. cefadroxil 2021-07- No [id number] 500mg Take 1 Univers 500 mg 0-12 -11 capsule by ity of capsule 00:00: 05:59 mouth in [place] 00 :00 [facility] and 1 capsule in the evening. Do all this for 90 days. cefadroxil 2021-07- No [id number] 500mg Take 1 Univers 500 mg 0-12 -11 capsule by ity of capsule 00:00: 05:59 mouth in [place] 00 :00 [facility] and 1 capsule in the evening. Do all this for 90 days. cefadroxil 2021-07- No [id number] 500mg Take 1 Univers 500 mg 0-12 11-03 capsule by ity of capsule 00:00: 00:00 mouth in [place] 00 :00 [facility] and 1 capsule in the evening. Do all this for 90 days. HYDROcodone 2021-07- No 4647 1{tbl} Take 1 U nivers -acetaminop 0-12 10-16 tablet by it y of hen 5-325 00:00: 04:59 mouth [place] mg tablet 00 :00 every 6 Medical (six) Branch hours as needed for Pain (scale 7-10) for up to 3 days. Indication s: acute pain HYDROcodone 2021-07- No 4647 1{tbl} Take 1 U nivers [...] 30 mg 00 First dose Medical on Wed04/21/22 at 1700, Until Discontinu ed, Routine ceFEPIme 2021-07 No 1000mg 1,000 mg, U nivers (MAXIPIME) 004-22 IV ity of 1,000 mg in 20:45: 17:22 [place], [place] NaCl 0.9% 00 :50 Q8H ABX, Medica l (NS) 50 mL 30 doses, Bran ch MINI-BAG First dose on Wed04/21/22 at 1545, Last dose on Wed05/01/22 at 0745, Administer over 4 Hours, 50 mL
Reas on for Anti-Infec tive: Documented Infection& lt;br>Docu mented Infection Site: Bone
Du ration of Therapy: 14 days diphenhydrA 2021-07 No 25mg 25 mg, Uni vers MINE 011 11 Oral, ONCE ity of (BENADRYL) 18:45: 19:09 NOW, 1 [place] tablet 25 00 :00 dose, On Medica l mg Wed04/21/22 at 1345, Routine tiotropium 2021-07 Yes 18ug 18 mcg, Univ ers (SPIRIVA) 011 Inhalation ity of inhalation 14:00: , DAILY, [place] 18 mcg 00 First dose Medical on Wed04/21/22 at 0900, Until Discontinu ed, Routine pantoprazol 2021-07 Yes 20mg 20 mg, Univ ers e 0-11 Oral, ity of (PROTONIX) 14:00: DAILY, [place] EC tablet 00 First dose Medi nancy 20 mg on Wed04/21/22 at 0900, Until Discontinu ed beclomethas 2021-07 Yes 1{puff} 1 Puff, Univers one 0-11 Inhalation ity of dipropionat 13:00: , BID, [place] e (QVAR 00 First dose Medica l REDIHALER) on Wed 40 04/21/22 mcg/actuati at 0800, on inhaler Until 1 Puff Discontinu ed, Routine sennosides- 2021-07 Yes 1{tbl} 1 tablet, Univers docusate 0-11 Oral, BID, ity o f sodium 13:00: First dose [place] (SENOKOT-S) 00 on Wed Medica l 8.6-50 mg 04/21/22 Branch per tablet at 0800, 1 tablet Until Discontinu ed, Routine ceFEPIme 2021-07 No 1000mg 1,000 mg, U nivers (MAXIPIME) 0-11 11 IV ity of 1,000 mg in 13:00: 14:50 Piggyback, [place] NaCl 0.9% 00 :00 ONCE, 1 Medical (NS) 50 mL dose, On Branc h MINI-BAG Wed04/21/22 at 0800, Administer over 30 Minutes, 50 mL
Reas on for Anti-Infec tive: Documented Infection< br>Documen palma Infection Site: Bone<br&gt ;Duration of Therapy: 14 days vancomycin 2021-07 No 15mg/kg 1,000 mg Univers (VANCOCIN) 0-11 04-21 (rounded ity of 1,000 mg in 11:45: 21:11 from 1,089 [place] NaCl 0.9% 00 :22 mg = 15 Medical (NS) 250 mL mg/kg Branch VIAL-MATE ?72.6 kg), IV IV piggyback Piggyback, Q8H ABX, 42 doses, First dose on Wed04/21/22 at 0645, Last dose on Wed05/04/22 at 2245, Administer over 60 Minutes, 250 mL
Reas on for Anti-Infec tive: Documented Infection< br>Documen palma Infection Site: Bone
Du ration of Therapy: 14 days piperacilli 2021-07- No 3.375g 3.375 g, Univers n-tazobacta 0-11 10-11 IV ity of m (ZOSYN) 11:00: 12:17 [...] Q8HPRN, [place] 05 Starting Medical on Wed Branch 04/21/22 at 0003, Until Discontinu ed, Routine, Nausea and Vomiting (N/V) HYDROcodone 2021-07 Yes 1{tbl} 1 tablet, Univers -acetaminop 0-11 Oral, ity of hen (NORCO 05:01: Q6HPRN, [place] 5) 5-325 mg 47 Starting Medi nancy tablet 1 on Wed Branch tablet 04/21/22 at 0001, Until Discontinu ed, Routine, Pain (scale 4-6) ondansetron 2021-07 No 4mg 4 mg, Slow Univers (ZOFRAN 0-11 10-11 IV Push, ity of (PF)) 01:58: 01:59 ONCE, 1 [place] injection 4 00 :00 dose, On Medi nancy mg Mon Branch 04/20/22 at 2100, EDGAR FENTanyl PF 2021-07 No 50ug 50 mcg, Un [place] (SUBLIMAZE 0-11 10-11 Slow IV ity o f (PF)) 00:53: 00:53 Push, [place] injection 00 :00 ONCE, 1 Medical 50 mcg dose, On Branch Wed04/20/22 at 2000, Routine pantoprazol 2021-07 Yes Take by Uni vers e sodium 0-11 mouth. ity of (PROTONIX 00:05: [place] ORAL) 36 [facility] Branch vancomycin 2021-07- No 15mg/kg 1,000 mg Univers (VANCOCIN) 0-10 10-11 (rounded ity of 1,000 mg in 23:30: [...] 1 Medical 50 mcg dose, On Branch [facility] 04/20/22 at 1715, Routine FENTanyl PF 2021-07- No 50ug 50 mcg, Un [place] (SUBLIMAZE 0-10 10-10 Slow IV ity o f (PF)) 19:00: 19:05 Push, [place] injection 00 :00 ONCE, 1 Medical 50 mcg dose, On Branch [facility] 04/20/22 at 1400, Routine iopamidol 2021-07- No [id number] 90mL 90 mL, Univers (ISOVUE 0-10 10-10 Intravenou ity o f 370-500 mL) 17:45: 17:45 s, ONCE, 1 [place] injection 00 :00 dose, On Medica l [address] [facility] 04/20/22 at 1245, Routine ondansetron 2021-07- No 4mg 4 mg, Slow Univers (ZOFRAN 0-10 10-10 IV Push, ity of (PF)) 16:15: 16:03 ONCE, 1 [place] injection 4 00 :00 dose, On Medi nancy mg Mon Branch 04/20/22 at 1115, EDGAR morpHINE (4 2021-2021- No 4mg 4 mg, Slow Univers mg/mL) 0-10 10-10 IV Push, ity of injection 4 16:15: 16:03 ONCE, 1 [place] mg 00 :00 dose, On Medical Mon Branch 04/20/22 at 1115, STAT TAKE 1 2021-0 [...] MOUTH THREE 00:00: TIMES DAILY 00 pantoprazol 2-0 No 1mg e 40 mg 7-26 tablet,lesa 00:00: yed release 00 ondansetron 2021-0 No 1mg HCl 4 mg 7-26 tablet 00:00: 00 &lt 2022-0 No 7-26 00:00: 00 TAKE 1 2021-0 No 100 TABLET BY 7-26 MOUTH EVERY 00:00: DAY 00 &lt 2022-0 No 100 7-26 00:00: 00 ADMINISTER 2-0 No 40 0.4 ML 7-26 UNDER THE 00:00: SKIN DAILY 00 &lt 2022-0 No 7-26 00:00: 00 TAKE 1 2021-0 No 10 TABLET BY 7-26 MOUTH DAILY 00:00: 00 TAKE 1 2021-0 No 100 TABLET BY 7-26 MOUTH EVERY 00:00: DAY 00 &lt 2022-0 No 7-26 00:00: 00 &lt 2022-0 No 100 7-26 00:00: 00 &lt 2022-0 No 7-26 00:00: 00 &lt 2022-0 No 10 7-26 00:00: 00 gabapentin 2022-0 No 1mg 100 mg 7-20 capsule 00:00: 00 &lt 2-0 No 7-20 00:00: 00 pantoprazol 2021-0 Yes Take by [facility] vers e sodium 7-19 mouth. ity of (PROTONIX 12:08: [place] ORAL) [facility] pantoprazol 2021-0 Yes Take by [facility] vers e sodium 7-19 mouth. ity of (PROTONIX 12:08: [place] ORAL) 56 Medical Branch pantoprazol 2021-0 Yes Take by Uni vers e sodium 7-19 mouth. ity of (PROTONIX 12:08: [place] ORAL) 56 [facility] Branch pantoprazol 2021-0 Yes Take by Uni vers e sodium 7-19 mouth. ity of (PROTONIX 12:08: [place] ORAL) 56 Medical Branch pantoprazol 2021-0 Yes Take by Uni vers e sodium 7-19 mouth. ity of (PROTONIX 12:08: [place] ORAL) 56 Medical Branch pantoprazol 2021-0 Yes Take by Uni vers e sodium 7-19 mouth. ity of (PROTONIX 12:08: [place] ORAL) 56 Medical Branch pantoprazol 2021-0 Yes Take by Uni vers e sodium 7-19 mouth. ity of (PROTONIX 12:08: [place] ORAL) 56 Medical Branch doxycycline 2021-0 Yes [id number] 100mg Take 1 [facility] hyclate 100 7-19 capsule by it y of mg capsule 00:00: mouth in [place] 00 the Medical morning Branch and 1 capsule in the evening. HYDROcodone 2021-0 Yes [id number] 1{tbl} Take 1 [facility] [place] -acetaminop 7-19 tablet by ity of [place] (NORCO) 00:00: mouth [place] 10-325 mg 00 every 6 Medical tablet (six) Branch hours as needed (severe pain). Indication s: acute pain amoxicillin 2021-0 Yes [id number] 1000mg Take 2 [facility] 500 mg 7-19 capsules ity of capsule 00:00: by mouth [place] 00 in the Medical morning Branch and 2 capsules in the evening. doxycycline 2021-0 Yes [id number] 100mg Take 1 [facility] hyclate 100 7-19 capsule by it y of mg capsule 00:00: mouth in [place] 00 the Medical morning Branch and 1 capsule in the evening. HYDROcodone 2021-0 Yes [id number] 1{tbl} Take 1 [facility] [place] -acetaminop 7-19 tablet by [facility]y of [place] (NORCO) 00:00: mouth [place] 10-325 mg 00 every 6 Medical tablet (six) Branch hours as needed (severe pain). Indication s: acute pain amoxicillin 2022-0 Yes [id number] 1000mg Take 2 [facility] 500 mg 7-19 capsules ity of capsule 00:00: by mouth [place] 00 in the Medical morning Branch and 2 capsules in the evening. doxycycline 2022-0 Yes [id number] 100mg Take 1 [facility] hyclate 100 7-19 [...] Indication s: acute pain amoxicillin 2022-0 Yes [id number] 1000mg Take 2 [facility] 500 mg 7-19 capsules ity of capsule 00:00: by mouth [place] 00 in the Medical morning Branch and 2 capsules in the evening. doxycycline 2022-0 Yes [id number] 100mg Take 1 [facility] hyclate 100 7-19 [...] Indication s: acute pain amoxicillin 2022-0 Yes [id number] 1000mg Take 2 [facility] 500 mg 7-19 capsules ity of capsule 00:00: by mouth [place] 00 in the Medical morning Branch and 2 capsules in the evening. doxycycline 2022-0 Yes [id number] 100mg Take 1 [facility] hyclate 100 7-19 [...] Indication s: acute pain amoxicillin 2022-0 Yes [id number] 1000mg Take 2 [facility] 500 mg 7-19 capsules ity of capsule 00:00: by mouth [place] 00 in the Medical morning Branch and 2 capsules in the evening. doxycycline 2022-0 Yes [id number] 100mg Take 1 [facility] hyclate 100 7-19 [...] Indication s: acute pain amoxicillin 2022-0 Yes [id number] 1000mg Take 2 [facility] 500 mg 7-19 capsules ity of capsule 00:00: by mouth [place] 00 in the Medical morning Branch and 2 capsules in the evening. doxycycline 2022-0 Yes [id number] 100mg Take 1 [facility] hyclate 100 7-19 capsule by it y of mg capsule 00:00: mouth in [place] 00 the Medical morning Branch and 1 capsule in the evening. doxycycline 2022-0 Yes [id number] 100mg Take 1 [facility] hyclate 100 7-19 capsule by it y of mg capsule 00:00: mouth in [place] 00 the Medical morning Branch and 1 capsule in the evening. doxycycline 2022-0 Yes [id number] 100mg Take 1 [facility] hyclate 100 7-19 capsule by it y of mg capsule 00:00: mouth in [place] 00 the Medical morning Branch and 1 capsule in the evening. doxycycline 2022-0 Yes [id number] 100mg Take 1 [facility] hyclate 100 7-19 capsule by it y of mg capsule 00:00: mouth in [place] 00 the Medical morning Branch and 1 capsule in the evening. doxycycline 2022-0 Yes [id number] 100mg Take 1 [facility] hyclate 100 7-19 capsule by it y of mg capsule 00:00: mouth in [place] 00 the Medical morning Branch and 1 capsule in the evening. doxycycline 2022-0 Yes [id number] 100mg Take 1 [facility] hyclate 100 7-19 capsule by it y of mg capsule 00:00: mouth in [place] 00 the Medical morning Branch and 1 capsule in the evening. doxycycline 2022-0 Yes [id number] 100mg Take 1 [facility] hyclate 100 7-19 capsule by it y of mg capsule 00:00: mouth in [place] 00 the Medical morning Branch and 1 capsule in the evening. doxycycline 2022-0 Yes [id number] 100mg Take 1 [facility] hyclate 100 7-19 capsule by it y of mg capsule 00:00: mouth in [place] 00 the Medical morning Branch and 1 capsule in the evening. doxycycline 2022-0 Yes [id number] 100mg Take 1 [facility] hyclate 100 7-19 capsule by it y of mg capsule 00:00: mouth in [place] 00 the Medical morning Branch and 1 capsule in the evening. doxycycline 2022-0 Yes [id number] 100mg Take 1 [facility] hyclate 100 7-19 capsule by it y of mg capsule 00:00: mouth in [place] 00 the Medical morning Branch and 1 capsule in the evening. doxycycline 2022-0 Yes [id number] 100mg Take 1 [facility] hyclate 100 7-19 capsule by it y of mg capsule 00:00: mouth in [place] 00 the Medical morning Branch and 1 capsule in the evening. doxycycline 2022-0 Yes [id number] 100mg Take 1 [facility] hyclate 100 7-19 capsule by it y of mg capsule 00:00: mouth in [place] 00 the Medical morning Branch and 1 capsule in the evening. doxycycline 2022-0 Yes [id number] 100mg Take 1 [facility] hyclate 100 7-19 capsule by it y of mg capsule 00:00: mouth in [place] 00 the Medical morning Branch and 1 capsule in the evening. doxycycline 2022-0 Yes [id number] 100mg Take 1 [facility] hyclate 100 7-19 capsule by it y of mg capsule 00:00: mouth in [place] 00 the Medical morning Branch and 1 capsule in the evening. doxycycline 2022-0 Yes [id number] 100mg Take 1 [facility] hyclate 100 7-19 capsule by it y of mg capsule 00:00: mouth in [place] 00 the Medical morning Branch and 1 capsule in the evening. doxycycline 2022-0 Yes [id number] 100mg Take 1 [facility] hyclate 100 7-19 capsule by it y of mg capsule 00:00: mouth in [place] 00 the Medical morning Branch and 1 capsule in the evening. doxycycline 2022-0 Yes [id number] 100mg Take 1 [facility] hyclate 100 7-19 capsule by it y of mg capsule 00:00: mouth in [place] 00 the Medical morning Branch and 1 capsule in the evening. doxycycline 2021-2022- No [id number] 100mg Take 1 [facility] hyclate 100 7-19 02-24 capsule by i ty of mg capsule 00:00: 00:00 mouth in [place] :00 the Medical morning Branch and 1 capsule in the evening. HYDROcodone 2021- No [id number] 1{tbl} Take 1 [facility] n[facility] -acetaminop 7-19 10-12 tablet by it y of [place] ([place]CO) 00:00: [place] 10-325 [place] 00 :00 every 6 Medical tablet (six) Branch hours as needed (severe pain). Indication s: acute pain amoxicillin 2021-2021- No [id number] 1000mg Take 2 [facility] 500 mg 7-19 10-12 capsules ity of capsule 00:00: 00:00 by mouth [place] 00 :00 in the Medical morning Branch and 2 capsules in the evening. HYDROcodone 2021- No [id number] 1{tbl} Take 1 U nivers -acetaminop 7-19 10-12 tablet by it y of [place] (NORCO) 00:00: 00:[place] 10-325 [place] 00 :00 every 6 Medical tablet (six) Branch hours as needed (severe pain). Indication s: acute pain amoxicillin 2021-2021- No [id number] 1000mg Take 2 [facility] 500 mg 7-19 [...] Indication s: acute pain amoxicillin 2021-2021- No [id number] 1000mg Take 2 [facility] 500 mg 7-19 10-12 capsules ity of capsule 00:00: 00:00 by mouth [place] 00 :00 in the Medical morning Branch and 2 capsules in the evening. mupirocin 2 2021-0 No 1% % topical 6-14 ointment 00:00: 00 gabapentin 2022-0 No 1mg 100 mg 5-20 capsule 00:00: 00 Dose 2022-0 No Unknown 4-26 00:00: 00 cefadroxil 2-0 No 2mg/5 500 mg/5 mL 4-21 mL oral 00:00: suspension 00 Dose 2022-0 No Unknown 4-21 00:00: 00 Dose 2022-0 No Unknown 4-14 [...] 2022-0 No Unknown 4-13 00:00: 00 ondansetron 2022-0 Yes [id number] 4mg Take 1 [facility] (ZOFRAN) 4 4-05 tablet by ity of mg tablet 00:00: mouth 00 every 8 Medical (eight) Branch hours as needed for Nausea and Vomiting (N/V). ondansetron 2022-0 Yes [id number] 4mg Take 1 [facility] (ZOFRAN) 4 4-05 tablet by ity of mg tablet 00:00: mouth every 8 Medical (eight) Branch hours as needed for Nausea and Vomiting (N/V). ondansetron 2022-0 Yes [id number] 4mg Take 1 [facility] (ZOFRAN) 4 4-05 tablet by ity of mg tablet 00:00: mouth [place] every 8 Medical (eight) Branch hours as needed for Nausea and Vomiting (N/V). ondansetron 2022-0 Yes [id number] 4mg Take 1 [facility] (ZOFRAN) 4 4-05 tablet by ity of mg tablet 00:00: mouth [place] 00 every 8 Medical (eight) Branch hours as needed for Nausea and Vomiting (N/V). ondansetron 2022-0 Yes [id number] 4mg Take 1 [facility] (ZOFRAN) 4 4-05 tablet by ity of mg tablet 00:00: mouth [place] 00 every 8 Medical (eight) Branch hours as needed for Nausea and Vomiting (N/V). ondansetron 2022-0 Yes [id number] 4mg Take 1 [facility] (ZOFRAN) 4 4-05 tablet by ity of mg tablet 00:00: mouth [place] 00 every 8 Medical (eight) Branch hours as needed for Nausea and Vomiting (N/V). ondansetron 2-0 Yes [id number] 4mg Take 1 [facility] (ZOFRAN) 4 4-05 tablet by ity of mg tablet 00:00: mouth [place] 00 every 8 Medical (eight) Branch hours as needed for Nausea and Vomiting (N/V). ondansetron 2-0 Yes [id number] 4mg Take 1 [facility] (ZOFRAN) 4 4-05 tablet by ity of mg tablet 00:00: mouth [place] 00 every 8 Medical (eight) Branch hours as needed for Nausea and Vomiting (N/V). ondansetron 2-0 Yes [id number] 4mg Take 1 [facility] (ZOFRAN) 4 4-05 tablet by ity of mg tablet 00:00: mouth [place] 00 every 8 Medical (eight) Branch hours as needed for Nausea and Vomiting (N/V). ondansetron 2022-0 Yes [id number] 4mg Take 1 [facility] (ZOFRAN) 4 4-05 tablet by ity of mg tablet 00:00: mouth [place] 00 every 8 Medical (eight) Branch hours as needed for Nausea and Vomiting (N/V). ondansetron 2022-0 Yes [id number] 4mg Take 1 [facility] (ZOFRAN) 4 4-05 tablet by ity of mg tablet 00:00: mouth [place] 00 every 8 Medical (eight) Branch hours as needed for Nausea and Vomiting (N/V). ondansetron 2022-0 Yes [id number] 4mg Take 1 Univers (ZOFRAN) 4 4-05 tablet by ity of mg tablet 00:00: mouth [place] 00 every 8 Medical (eight) Branch hours as needed for Nausea and Vomiting (N/V). ondansetron 2-0 Yes [id number] 4mg Take 1 [facility] (ZOFRAN) 4 4-05 tablet by ity of mg tablet 00:00: mouth [place] 00 every 8 Medical (eight) Branch hours as needed for Nausea and Vomiting (N/V). ondansetron 2-0 Yes [id number] 4mg Take 1 Univers (ZOFRAN) 4 4-05 tablet by ity of mg tablet 00:00: mouth [place] 00 every 8 Medical (eight) Branch hours as needed for Nausea and Vomiting (N/V). ondansetron 2-0 Yes [id number] 4mg Take 1 Univers (ZOFRAN) 4 4-05 tablet by ity of mg tablet 00:00: mouth [place] 00 every 8 Medical (eight) Branch hours as needed for Nausea and Vomiting (N/V). ondansetron 2-0 Yes [id number] 4mg Take 1 Univers (ZOFRAN) 4 4-05 tablet by ity of mg tablet 00:00: mouth [place] 00 every 8 Medical (eight) Branch hours as needed for Nausea and Vomiting (N/V). ondansetron 2-0 Yes [id number] 4mg Take 1 Univers (ZOFRAN) 4 4-05 tablet by ity of mg tablet 00:00: mouth [place] 00 every 8 Medical (eight) Branch hours as needed for Nausea and Vomiting (N/V). ondansetron 2-0 Yes [id number] 4mg Take 1 Univers (ZOFRAN) 4 4-05 tablet by ity of mg tablet 00:00: mouth [place] 00 every 8 Medical (eight) Branch hours as needed for Nausea and Vomiting (N/V). ondansetron 2022-0 Yes [id number] 4mg Take 1 [facility] (ZOFRAN) 4 4-05 tablet by ity of mg tablet 00:00: mouth [place] 00 every 8 Medical (eight) Branch hours as needed for Nausea and Vomiting (N/V). ondansetron 2022-0 Yes [id number] 4mg Take 1 [facility] (ZOFRAN) 4 4-05 tablet by ity of mg tablet 00:00: mouth [place] 00 every 8 Medical (eight) Branch hours as needed for Nausea and Vomiting (N/V). ondansetron 2021-0 Yes [id number] 4mg Take 1 Univers (ZOFRAN) 4 4-05 tablet by ity of mg tablet 00:00: mouth [place] 00 every 8 Medical (eight) Branch hours as needed for Nausea and Vomiting (N/V). ondansetron 2021-0 Yes [id number] 4mg Take 1 [facility] (ZOFRAN) 4 4-05 tablet by ity of mg tablet 00:00: mouth [place] 00 every 8 Medical (eight) Branch hours as needed for Nausea and Vomiting (N/V). ondansetron 2021-0 Yes [id number] 4mg Take 1 [facility] (ZOFRAN) 4 4-05 tablet by ity of mg tablet 00:00: mouth [place] 00 every 8 Medical (eight) Branch hours as needed for Nausea and Vomiting (N/V). ondansetron 2021-0 Yes [id number] 4mg Take 1 [facility] (ZOFRAN) 4 4-05 tablet by ity of mg tablet 00:00: mouth [place] 00 every 8 Medical (eight) Branch hours as needed for Nausea and Vomiting (N/V). ondansetron 2021-0 Yes [id number] 4mg Take 1 [facility] (ZOFRAN) 4 4-05 tablet by ity of mg tablet 00:00: mouth [place] 00 every 8 Medical (eight) Branch hours as needed for Nausea and Vomiting (N/V). ondansetron 2021-0 Yes [id number] 4mg Take 1 [facility] (ZOFRAN) 4 4-05 tablet by ity of mg tablet 00:00: mouth [place] 00 every 8 Medical (eight) Branch hours as needed for Nausea and Vomiting (N/V). cefadroxil 2021-0 2021- No [id number] 500mg Take 1 [facility] 500 mg 4-11 15-19 capsule by ity of capsule 00:00: 00:00 mouth 2 [place] 00 :00 (two) Medical times Branch daily. doxycycline 2021-0 2021- No [id number] 100mg Take 1 [facility] hyclate 100 4-05 -19 capsule by i ty of mg capsule 00:00: 00:00 mouth 2 [place] :00 (two) Medical times Branch daily. sennosides- 2022-0 Yes [id number] 1{tbl} Take 1 [facility] docusate 3- [id number] tablet by ity of sodium 00:00: mouth [place] 8.6-50 mg 00 daily. Medical per tablet [facility]- Yes [id number] 1{tbl} Take 1 Univers docusate 3- [id number] tablet by ity of sodium 00:00: mouth [place] 8.6-50 mg 00 daily. Medical per tablet [facility]- Yes [id number] 1{tbl} Take 1 Univers docusate 3- [id number] tablet by ity of sodium 00:00: mouth [place] 8.6-50 mg 00 daily. Medical per tablet [facility]- Yes [id number] 1{tbl} Take 1 Univers docusate 3- [id number] tablet by ity of sodium 00:00: mouth [place] 8.6-50 mg 00 daily. Medical per tablet [facility]- Yes [id number] 1{tbl} Take 1 [facility] docusate 3- [id number] tablet by ity of sodium 00:00: mouth [place] 8.6-50 mg 00 daily. Medical per tablet [facility]- Yes [id number] 1{tbl} Take 1 [facility] docusate 3- [id number] tablet by ity of sodium 00:00: mouth [place] 8.6-50 mg 00 daily. Medical per tablet [facility] Yes [id number] 1{tbl} Take 1 Univers docusate 3- [id number] tablet by ity of sodium 00:00: mouth [place] 8.6-50 mg 00 daily. Medical per tablet [facility] Yes [id number] 1{tbl} Take 1 Univers docusate 3- [id number] tablet by ity of sodium 00:00: mouth [place] 8.6-50 mg 00 daily. Medical per tablet [facility] 2021- No [id number] 1{tbl} Take 1 Univers docusate 3- 10-12 [id number] tablet by ity of sodium 00:00: 00:00 mouth [place] 8.6-50 mg 00 :00 daily. Medical per tablet [facility]- 2021- No [id number] 1{tbl} Take 1 Univers docusate 09-09 [id number] tablet by ity of sodium 00:00: 00:00 mouth [place] 8.6-50 mg 00 :00 daily. Medical per tablet [employer] sennosides- 2021- No [id number] 1{tbl} Take 1 Univers docusate 09-09 [id number] tablet by ity of sodium 00:00: 00:00 mouth [place] 8.6-50 mg 00 :00 daily. Medical per tablet Branch PEN NEEDLE Yes Use as Unive rs [...] of 09/24" Ndle 00:00: 00:00 daily with [place] 00 :00 Tymlos pen Medical injector. Branch abaloparati 2021- No 80ug inject 80 Univers de (TYMLOS) 2-10 10-12 mcg under it y of 80 mcg 00:00: 00:00 the skin [place] (3,120 00 :00 daily. Medical mcg/1.56 Branch mL) PnIj gabapentin Yes 100mg Take 100 [place] 100 mg 2-01 mg by ity of capsule 00:00: mouth 2 [place] 00 (two) Medical times Branch daily. TRELEGY Yes 1{puff} Inhale 1 Uni vers ELLIPTA 2-01 Puff ity of 100-62.5-25 00:00: [place]. [place] mcg Ds 00 Medical Branch gabapentin Yes 100mg Take 100 [facility] [place] 100 mg 2-01 mg by ity of capsule 00:00: mouth 2 [place] 00 (two) Medical times Branch daily. TRELEGY Yes [...] 2 (two) Medical times Branch daily. TRELEGY 2021-0 [...] 2 (two) Medical times Branch daily. TRELEGY 2021-0 Yes 1{puff} Inhale 1 Uni vers ELLIPTA 2-01 Puff ity of 100-62.5-25 00:00: daily. [place] mcg DsDv 00 Medical Branch gabapentin 2021-0 Yes 100mg Take 100 [place] 100 mg 2-01 mg by ity of capsule 00:00: mouth 2 (two) Medical times Branch daily. TRELEGY 2022-0 Yes 1{puff} Inhale 1 Uni vers ELLIPTA 2-01 Puff ity of 100-62.5-25 00:00: daily. [facility] Medical Branch gabapentin 2022-0 Yes 100mg Take 100 [facility] [place] 100 mg 2-01 mg by ity of capsule 00:00: mouth [place] (two) Medical times Branch daily. gabapentin 2022-0 [...] mg by ity of capsule 00:00: mouth [place] (two) Medical times Branch daily. gabapentin 2022-0 Yes 100mg Take 100 [place] 100 mg 2-01 mg by ity of capsule 00:00: mouth [place] (two) Medical times Branch daily. gabapentin 2022-0 Yes 100mg Take 100 [place] 100 mg 2-01 mg by ity of capsule 00:00: mouth [place] (two) Medical times Branch daily. gabapentin 2022-0 Yes 100mg Take 100 [place] 100 mg 2-01 mg by ity of capsule 00:00: mouth [place] (two) Medical times Branch daily. gabapentin 2022-0 Yes 100mg Take 100 [place] 100 mg 2-01 mg by ity of capsule 00:00: mouth [place] (two) Medical times Branch daily. gabapentin 2022-0 Yes 100mg Take 100 [place] 100 mg 2-01 mg by ity of capsule 00:00: mouth [place] (two) Medical times Branch daily. gabapentin 2022-0 Yes 100mg Take 100 [place] 100 mg 2-01 mg by ity of capsule 00:00: mouth (two) Medical times Branch daily. gabapentin 2022-0 Yes 100mg Take 100 [place] 100 mg 2-01 mg by ity of capsule 00:00: mouth [place] (two) Medical times Branch daily. gabapentin 2022-0 [...] mouth (two) Medical times Branch daily. gabapentin 2-0 Yes 100mg Take 100 Un [...] 15 mg 1-20 tablet 00:00: 00 Dose 2020-07 No Unknown 2-16 00:00: 00 gabapentin 2021-1 [...] Immunizations Ordered Filled Immunization Date Status Comments [facility] e Immunization Name Name SARS-COV-2 COVID-19 [...] COVID-19 2021-10-14 Completed Unive rsity of PFIZER ARDHA-SUCROSE 00:00:00 [place] Medical VACCINE (FARIAS TOP) Branch [...] Unive rsity of PFIZER VACCINE 00:00:00 [place] [facility] Branch SARS-COV-2 COVID-19 2020-10-03 Completed Unive rsity of PFIZER VACCINE 00:00:00 [place] [facility] Branch SARS-COV-2 COVID-19 2020-10-03 Completed Unive rsity of PFIZER VACCINE 00:00:00 [place] [facility] Branch SARS-COV-2 COVID-19 2020-10-03 Completed Unive rsity of PFIZER VACCINE 00:00:00 [place] [facility] Branch SARS-COV-2 COVID-19 2020-10-03 Completed Unive rsity of PFIZER VACCINE 00:00:00 [place] [facility] Branch SARS-COV-2 COVID-19 2020-10-03 Completed Unive rsity of PFIZER VACCINE 00:00:00 [facility] Branch SARS-COV-2 COVID-19 2020-10-03 Completed Unive rsity of PFIZER VACCINE 00:00:00 [facility] Branch SARS-COV-2 COVID-19 2020-10-03 Completed Unive rsity of PFIZER VACCINE 00:00:00 [facility] Branch SARS-COV-2 COVID-19 2020-10-03 Completed Unive rsity of PFIZER VACCINE 00:00:00 [facility] Branch SARS-COV-2 COVID-19 2020-10-03 Completed Unive rsity of PFIZER VACCINE 00:00:00 [facility] Branch SARS-COV-2 COVID-19 2020-10-03 Completed Unive rsity of PFIZER VACCINE 00:00:00 [place] [facility] Branch SARS-COV-2 COVID-19 2020-10-03 Completed Unive rsity of PFIZER VACCINE 00:00:00 [place] [facility] Branch SARS-COV-2 COVID-19 2020-10-03 Completed Unive rsity of PFIZER VACCINE 00:00:00 [facility] Branch SARS-COV-2 COVID-19 2020-10-03 Completed Unive rsity of PFIZER VACCINE 00:00:00 [facility] Branch SARS-COV-2 COVID-19 2020-10-03 Completed Unive rsity of PFIZER VACCINE 00:00:00 [facility] Branch SARS-COV-2 COVID-19 2020-10-03 Completed Unive rsity of PFIZER VACCINE 00:00:00 [facility] Branch SARS-COV-2 COVID-19 2020-10-03 Completed Unive rsity of PFIZER VACCINE 00:00:00 [facility] Branch SARS-COV-2 COVID-19 2020-10-03 Completed Unive rsity of PFIZER VACCINE 00:00:00 [facility] Branch SARS-COV-2 COVID-19 2020-10-03 Completed Unive rsity of PFIZER VACCINE 00:00:00 [facility] Branch SARS-COV-2 COVID-19 2020-10-03 Completed Unive rsity of PFIZER VACCINE 00:00:00 [facility] Branch SARS-COV-2 COVID-19 2020-10-03 Completed Unive rsity of PFIZER VACCINE 00:00:00 [facility] Branch SARS-COV-2 COVID-19 2020-10-03 Completed Unive rsity of PFIZER VACCINE 00:00:00 [facility] Branch SARS-COV-2 COVID-19 2020-10-03 Completed Unive rsity of PFIZER VACCINE 00:00:00 [facility] Branch SARS-COV-2 COVID-19 2020-10-03 Completed Unive rsity of PFIZER VACCINE 00:00:00 [facility] Branch SARS-COV-2 COVID-19 2020-10-03 Completed Unive rsity of PFIZER VACCINE 00:00:00 [facility] Branch SARS-COV-2 COVID-19 2020-10-03 Completed Unive rsity of PFIZER VACCINE 00:00:00 [facility] Branch SARS-COV-2 COVID-19 2020-09-13 Completed Unive rsity of PFIZER VACCINE 00:00:00 [facility] Branch SARS-COV-2 COVID-19 2020-09-13 Completed Unive rsity of PFIZER VACCINE 00:00:00 [facility] Branch SARS-COV-2 COVID-19 2020-09-13 Completed Unive rsity of PFIZER VACCINE 00:00:00 [facility] Branch SARS-COV-2 COVID-19 2020-09-13 Completed Unive rsity of PFIZER VACCINE 00:00:00 [facility] Branch SARS-COV-2 COVID-19 2020-09-13 Completed Unive rsity of PFIZER VACCINE 00:00:00 [facility] Branch SARS-COV-2 COVID-19 2020-09-13 Completed Unive rsity of PFIZER VACCINE 00:00:00 [facility] Branch SARS-COV-2 COVID-19 2020-09-13 Completed Unive rsity of PFIZER VACCINE 00:00:00 [facility] Branch SARS-COV-2 COVID-19 2020-09-13 Completed Unive rsity of PFIZER VACCINE 00:00:00 [facility] Branch SARS-COV-2 COVID-19 2020-09-13 Completed Unive rsity of PFIZER VACCINE 00:00:00 [facility] Branch SARS-COV-2 COVID-19 2020-09-13 Completed Unive rsity of PFIZER VACCINE 00:00:00 [facility] Branch SARS-COV-2 COVID-19 2020-09-13 Completed Unive rsity of PFIZER VACCINE 00:00:00 [facility] SARS-COV-2 COVID-19 2020-09-13 Completed Unive rsity of PFIZER VACCINE 00:00:00 [facility] Branch SARS-COV-2 COVID-19 2020-09-13 Completed Unive rsity of PFIZER VACCINE 00:00:00 [facility] Branch SARS-COV-2 COVID-19 2020-09-13 Completed Unive rsity of PFIZER VACCINE 00:00:00 [facility] SARS-COV-2 COVID-19 2020-09-13 Completed Unive rsity of PFIZER VACCINE 00:00:00 [facility] SARS-COV-2 COVID-19 2020-09-13 Completed Unive rsity of PFIZER VACCINE 00:00:00 [facility] SARS-COV-2 COVID-19 2020-09-13 Completed Unive rsity of PFIZER VACCINE 00:00:00 [facility] Branch SARS-COV-2 COVID-19 2020-09-13 Completed Unive rsity of PFIZER VACCINE 00:00:00 [facility] SARS-COV-2 COVID-19 2020-09-13 Completed Unive rsity of PFIZER VACCINE 00:00:00 [facility] SARS-COV-2 COVID-19 2020-09-13 Completed Unive rsity of PFIZER VACCINE 00:00:00 [facility] SARS-COV-2 COVID-19 2020-09-13 Completed Unive rsity of PFIZER VACCINE 00:00:00 [facility] SARS-COV-2 COVID-19 2020-09-13 Completed Unive rsity of PFIZER VACCINE 00:00:00 [facility] SARS-COV-2 COVID-19 2020-09-13 Completed Unive rsity of PFIZER VACCINE 00:00:00 [facility] SARS-COV-2 COVID-19 2020-09-13 Completed Unive rsity of PFIZER VACCINE 00:00:00 [facility] SARS-COV-2 COVID-19 2020-09-13 Completed Unive rsity of PFIZER VACCINE 00:00:00 [facility] [facility] SARS-COV-2 COVID-19 2020-09-13 Completed Unive rsity of PFIZER VACCINE 00:00:00 [facility] Influenza High Dose 2020-05-30 Completed Unive rsity of Quad 00:00:00 [facility] Influenza High Dose 2020-05-30 Completed [facility]ity of [place] 00:00:00 [facility] Influenza High Dose 2020-05-30 Completed [facility] of [place] 00:00:00 [facility] Influenza High Dose 2020-05-30 Completed [facility] of [place] 00:00:00 [facility] Influenza High Dose 2020-05-30 Completed [facility] of [place] 00:00:00 [facility] Influenza High Dose 2020-05-30 Completed [facility] of [place] 00:00:00 [facility] Influenza High Dose 2020-05-30 Completed [facility] of [place] 00:00:00 [facility] Influenza High Dose 2020-05-30 Completed [facility] of [place] 00:00:00 [facility] Influenza High Dose 2020-05-30 Completed [facility] of [place] 00:00:00 [facility] Influenza High Dose 2020-05-30 Completed [facility] of [place] 00:00:00 [facility] Influenza High Dose 2020-05-30 Completed [facility] of [place] 00:00:00 [facility] Influenza High Dose 2020-05-30 Completed [facility] of [place] 00:00:00 [facility] Influenza High Dose 2020-05-30 Completed [facility] of [place] 00:00:00 [facility] Influenza High Dose 2020-05-30 Completed [facility] of [place] 00:00:00 [facility] Influenza High Dose 2020-05-30 Completed [facility] of [place] 00:00:00 [facility] Influenza High Dose 2020-05-30 Completed [facility] of [place] 00:00:00 [facility] Influenza High Dose 2020-05-30 Completed [facility] of [place] 00:00:00 [facility] Influenza High Dose 2020-05-30 Completed [facility] of [place] 00:00:00 [facility] Influenza High Dose 2020-05-30 Completed [facility] of [place] 00:00:00 [facility] Influenza High Dose 2020-05-30 Completed [facility] of [place] 00:00:00 [facility] Influenza High Dose 2020-05-30 Completed [facility] of [place] 00:00:00 [facility] Influenza High Dose 2020-05-30 Completed [facility] of [place] 00:00:00 [facility] Influenza High Dose 2020-05-30 Completed [facility] of [facility] 00:00:00 [facility] Influenza High Dose 2020-05-30 Completed [facility] of [place] 00:00:00 [facility] Influenza High Dose 2020-05-30 Completed [facility] of [facility] 00:00:00 [facility] Influenza High Dose 2020-05-30 Completed [facility] of [place] 00:00:00 [facility] Influenza Virus 2019-05-09 Completed Universit y of Vaccine (3+ yrs) 00:00:00 [facility] Influenza Virus 2019-05-09 Completed Universit y of Vaccine (3+ yrs) 00:00:00 [facility] Influenza Virus 2019-05-09 Completed Universit y of Vaccine (3+ yrs) 00:00:00 [facility] Influenza Virus 2019-05-09 Completed Universit y of Vaccine (3+ yrs) 00:00:00 [facility] Influenza Virus 2019-05-09 Completed Universit y of Vaccine (3+ yrs) 00:00:00 [facility] Influenza Virus 2019-05-09 Completed Universit y of Vaccine (3+ yrs) 00:00:00 [facility] Influenza Virus 2019-05-09 Completed Universit y of Vaccine (3+ yrs) 00:00:00 [facility] Influenza Virus 2019-05-09 Completed Universit y of Vaccine (3+ yrs) 00:00:00 [facility] Influenza Virus 2019-05-09 Completed Universit y of Vaccine (3+ yrs) 00:00:00 [facility] Influenza Virus 2019-05-09 Completed Universit y of Vaccine (3+ yrs) 00:00:00 [facility] Influenza Virus 2019-05-09 Completed Universit y of Vaccine (3+ yrs) 00:00:00 [facility] Influenza Virus 2019-05-09 Completed Universit y of Vaccine (3+ yrs) 00:00:00 [facility] Influenza Virus 2019-05-09 Completed Universit y of Vaccine (3+ yrs) 00:00:00 [facility] Influenza Virus 2019-05-09 Completed Universit y of Vaccine (3+ yrs) 00:00:00 [facility] Influenza Virus 2019-05-09 Completed Universit y of Vaccine (3+ yrs) 00:00:00 [facility] Influenza Virus 2019-05-09 Completed Universit y of Vaccine (3+ yrs) 00:00:00 [facility] Influenza Virus 2019-05-09 Completed Universit y of Vaccine (3+ yrs) 00:00:00 [facility] Influenza Virus 2019-05-09 Completed Universit y of Vaccine (3+ yrs) 00:00:00 [facility] Influenza Virus 2019-05-09 Completed Universit y of Vaccine (3+ yrs) 00:00:00 [facility] Influenza Virus 2019-05-09 Completed Universit y of Vaccine (3+ yrs) 00:00:00 [facility] Influenza Virus 2019-05-09 Completed Universit y of Vaccine (3+ yrs) 00:00:00 [facility] Influenza Virus 2019-05-09 Completed Universit y of Vaccine (3+ yrs) 00:00:00 [facility] Influenza Virus 2019-05-09 Completed Universit y of Vaccine (3+ yrs) 00:00:00 [facility] Influenza Virus 2019-05-09 Completed Universit y of Vaccine (3+ yrs) 00:00:00 [facility] Influenza Virus 2019-05-09 Completed Universit y of Vaccine (3+ yrs) 00:00:00 [facility] Influenza Virus 2019-05-09 Completed Universit y of Vaccine (3+ yrs) 00:00:00 [facility] Influenza Virus 2017-04-20 Completed Universit y of Vaccine 00:00:00 [facility] Influenza Virus 2017-04-20 Completed Universit y of Vaccine 00:00:00 [facility] Influenza Virus 2017-04-20 Completed Universit y of Vaccine 00:00:00 [facility] Influenza Virus 2017-04-20 Completed Universit y of Vaccine 00:00:00 [facility] Influenza Virus 2017-04-20 Completed Universit y of Vaccine 00:00:00 [facility] Influenza Virus 2017-04-20 Completed Universit y of Vaccine 00:00:00 [facility] Influenza Virus 2017-04-20 Completed Universit y of Vaccine 00:00:00 [facility] Influenza Virus 2017-04-20 Completed Universit y of Vaccine 00:00:00 [facility] Influenza Virus 2017-04-20 Completed Universit y of Vaccine 00:00:00 [facility] Influenza Virus 2017-04-20 Completed Universit y of Vaccine 00:00:00 [facility] Influenza Virus 2017-04-20 Completed Universit y of Vaccine 00:00:00 [facility] Influenza Virus 2017-04-20 Completed Universit y of Vaccine 00:00:00 [facility] Influenza Virus 2017-04-20 Completed Universit y of Vaccine 00:00:00 [facility] Influenza Virus 2017-04-20 Completed Universit y of Vaccine 00:00:00 [facility] Influenza Virus 2017-04-20 Completed Universit y of Vaccine 00:00:00 [facility] Influenza Virus 2017-04-20 Completed Universit y of Vaccine 00:00:00 [facility] Influenza Virus 2017-04-20 Completed Universit y of Vaccine 00:00:00 [facility] Influenza Virus 2017-04-20 Completed Universit y of Vaccine 00:00:00 [facility] Influenza Virus 2017-04-20 Completed Universit y of Vaccine 00:00:00 [facility] Influenza Virus 2017-04-20 Completed Universit y of Vaccine 00:00:00 [facility] Influenza Virus 2017-04-20 Completed Universit y of Vaccine 00:00:00 [facility] Influenza Virus 2017-04-20 Completed Universit y of Vaccine 00:00:00 [facility] Influenza Virus 2017-04-20 Completed Universit y of Vaccine 00:00:00 [facility] Influenza Virus 2017-04-20 Completed Universit y of Vaccine 00:00:00 [facility] Influenza Virus 2017-04-20 Completed Universit y of Vaccine 00:00:00 [facility] Influenza Virus 2017-04-20 Completed Universit y of Vaccine 00:00:00 [facility] Influenza High Dose 2016-05-29 Completed Unive rsity of 00:00:00 [facility] Influenza High Dose 2016-05-29 Completed Unive rsity of 00:00:00 [facility] Influenza High Dose 2016-05-29 Completed Unive rsity of 00:00:00 [facility] Influenza High Dose 2016-05-29 Completed Unive rsity of 00:00:00 [facility] Influenza High Dose 2016-05-29 Completed Unive rsity of 00:00:00 [facility] Influenza High Dose 2016-05-29 Completed Unive rsity of 00:00:00 [facility] Influenza High Dose 2016-05-29 Completed Unive rsity of 00:00:00 [facility] Influenza High Dose 2016-05-29 Completed Unive rsity of 00:00:00 [facility] Influenza High Dose 2016-05-29 Completed Unive rsity of 00:00:00 [facility] Influenza High Dose 2016-05-29 Completed Unive rsity of 00:00:00 [facility] Influenza High Dose 2016-05-29 Completed Unive rsity of 00:00:00 [facility] Influenza High Dose 2016-05-29 Completed Unive rsity of 00:00:00 [facility] Influenza High Dose 2016-05-29 Completed Unive rsity of 00:00:00 [facility] Influenza High Dose 2016-05-29 Completed Unive rsity of 00:00:00 [facility] Influenza High Dose 2016-05-29 Completed Unive rsity of 00:00:00 [facility] Influenza High Dose 2016-05-29 Completed Unive rsity of 00:00:00 [facility] Influenza High Dose 2016-05-29 Completed Unive rsity of 00:00:00 [facility] Influenza High Dose 2016-05-29 Completed Unive rsity of 00:00:00 [facility] Influenza High Dose 2016-05-29 Completed Unive rsity of 00:00:00 [facility] Influenza High Dose 2016-05-29 Completed Unive rsity of 00:00:00 [facility] Influenza High Dose 2016-05-29 Completed Unive rsity of 00:00:00 [facility] Influenza High Dose 2016-05-29 Completed Unive rsity of 00:00:00 [facility] Influenza High Dose 2016-05-29 Completed Unive rsity of 00:00:00 [facility] Influenza High Dose 2016-05-29 Completed Unive rsity of 00:00:00 [facility] Influenza High Dose 2016-05-29 Completed Unive rsity of 00:00:00 [facility] Influenza High Dose 2016-05-29 Completed Unive rsity of 00:00:00 [facility] Vital Signs Vital Name Observation Time Observation Value Comments Source Systolic blood 2022-07-24 17:45:00 111 mm[Hg] Univer sity of pressure [facility] Diastolic blood 2022-07-24 17:45:00 61 mm[Hg] Unive rsity of [facility] Heart rate 2022-07-24 17:45:00 74 /min Universi ty [facility] Body temperature 2022-07-24 17:45:00 36.61 Jolene [facility] 2022-07-24 17:45:00 18 /min [facility] Oxygen saturation in 2022-07-24 17:45:00 93 /min [facility] Arterial blood by [facility] Pulse [employer] Body weight 2022-07-24 09:28:00 68.992 kg Universi ty [facility] BMI 2022-07-24 09:28:00 26.94 kg/m2 Universi ty [facility] Body height 2022-07-21 01:59:00 160 cm Universi ty [facility] Systolic blood 2022-07-16 21:24:00 117 mm[Hg] Univer sity of pressure [facility] Diastolic blood 2022-07-16 21:24:00 78 mm[Hg] Unive rsity of pressure [facility] Heart rate 2022-07-16 21:24:00 99 /min Universi ty [facility] Body temperature 2022-07-16 21:24:00 36.67 Jolene Univ ersity of [facility] Body height 2022-07-16 21:24:00 160 cm Universi ty of [facility] Body weight 2022-07-16 21:24:00 68.04 kg Universi ty [facility] BMI 2022-07-16 21:24:00 26.57 kg/m2 [facility] Systolic blood 2022-05-15 15:23:00 120 mm[Hg] Univer [facility]ity of pressure [facility] Diastolic blood 2022-05-15 15:23:00 59 mm[Hg] Unive rsity of pressure [facility] Heart rate 2022-05-15 15:23:00 81 /min [facility] Oxygen saturation in 2022-05-15 15:23:00 97 /min [facility] of Arterial blood by [place] [facility] [employer] [employer] Body temperature 2022-05-15 12:15:00 36.83 Jolene [facility] ers[facility] Respiratory rate 2022-05-15 12:15:00 18 /min Univ ers[facility] Body weight 2022-05-15 01:00:00 70.2 kg [facility] BMI 2022-05-15 01:00:00 27.42 kg/m2 [facility] Body height 2022-05-11 07:00:00 160 cm [facility] Systolic blood 2022-05-07 19:35:00 106 mm[Hg] Univer sity of pressure [facility] Diastolic blood 2022-05-07 19:35:00 56 mm[Hg] Unive rsity of pressure [facility] Heart rate 2022-05-07 19:35:00 70 /min [facility] Respiratory rate 2022-05-07 19:35:00 12 /min Univ ersity of [facility] Oxygen saturation in 2022-05-07 19:35:00 95 /min [facility] of Arterial blood by [place] [facility] [employer] [employer] Body temperature 2022-05-07 19:10:00 36.33 Jolene [facility] Body weight 2022-05-02 13:00:00 88.5 kg [facility] BMI 2022-05-02 13:00:00 34.56 kg/m2 [facility] Body height 2022-04-27 16:38:00 160 cm [facility] Heart rate 2022-04-28 04:10:00 94 /min [facility] Respiratory rate 2022-04-28 04:10:00 16 /min Univ ersity [facility] Oxygen saturation in 2022-04-28 04:10:00 100 /min [facility] of Arterial blood by [place] [facility] [employer] [employer] Systolic blood 2022-04-28 04:00:00 103 mm[Hg] Univer [facility]ity of pressure [facility] Diastolic blood 2022-04-28 04:00:00 60 mm[Hg] Unive rsity of pressure [facility] Body temperature 2022-04-27 16:38:00 37.22 Jolene Univ ers[facility] Body height 2022-04-27 16:38:00 160 cm [facility] Body weight 2022-04-27 16:38:00 72.576 kg [facility] BMI 2022-04-27 16:38:00 30.46 kg/m2 [facility] Systolic blood 2022-04-27 14:00:00 138 mm[Hg] Univer [facility]ity of pressure [facility] Diastolic blood 2022-04-27 14:00:00 67 mm[Hg] Unive rsity of pressure [facility] Heart rate 2022-04-27 14:00:00 111 /min [facility] Respiratory rate 2022-04-27 14:00:00 17 /min Univ ers[facility] Oxygen saturation in 2022-04-27 14:00:00 100 /min University of Arterial blood by [facility] Pulse oximetry Branch Body temperature 2022-04-27 09:22:00 37.61 Jolene Univ ers[facility] Body height 2022-04-27 09:22:00 160 cm [facility] Body weight 2022-04-27 09:22:00 72.576 kg [facility] BMI 2022-04-27 09:22:00 28.34 kg/m2 [facility] Systolic blood 2022-04-22 20:52:00 130 mm[Hg] Univer sity of pressure [facility] Diastolic blood 2022-04-22 20:52:00 67 mm[Hg] Unive rsity of pressure [facility] Heart rate 2022-04-22 20:52:00 78 /min [facility] Body temperature 2022-04-22 20:52:00 36.78 Jolene Univ [facility] Respiratory rate 2022-04-22 20:52:00 16 /min Univ ers[facility] Oxygen saturation in 2022-04-22 20:52:00 98 /min University of Arterial blood by [facility] Pulse oximetry Branch Body height 2022-04-22 02:09:00 160 cm [facility] Body weight 2022-04-22 02:09:00 72.576 kg [facility] BMI 2022-04-22 02:09:00 28.34 kg/m2 [facility] Systolic blood 2022-01-27 17:09:00 110 mm[Hg] Univer sity of pressure [facility] Diastolic blood 2022-01-27 17:09:00 73 mm[Hg] Unive rsity of pressure [facility] Heart rate 2022-01-27 17:09:00 80 /min [facility] Respiratory rate 2022-01-27 17:09:00 18 /min Univ ers[facility] Body height 2022-01-27 17:09:00 160 cm [facility] Body weight 2022-01-27 17:09:00 76.658 kg [facility] BMI 2022-01-27 17:09:00 29.94 kg/m2 [facility] Oxygen saturation in 2022-01-27 17:09:00 98 /min University of Arterial blood by [facility] Pulse oximetry Branch BP Systolic 2021-04-28 14:02:00 [...] Date / Time Performing Clinician Source Performed PHYSICIAN ORDERS 2022-07-31 06:01:00 Doctor Unassigned, [facility] BASIC METABOLIC PANEL 2022-07-24 10:05:00 Den, [facility] (NA, K, CL, CO2, GLUCOSE, Medica l Branch BUN, CREATININE, CA) CBC WITH DIFF 2022-07-24 10:05:00 Keven, [facility] BASIC METABOLIC PANEL 2022-07-23 09:19:00 Den, [facility] (NA, K, CL, CO2, GLUCOSE, Medica l Branch BUN, CREATININE, CA) CBC WITH DIFF 2022-07-23 09:19:00 Den, [facility] BASIC METABOLIC PANEL 2022-07-22 10:18:00 Keven, [facility] (NA, K, CL, CO2, GLUCOSE, Medica l Branch BUN, CREATININE, CA) CBC WITH DIFF 2022-07-22 10:18:00 Keven [facility] US LOWER LEG RIGHT 2022-07-21 23:28:48 Rebecca Squires [facility] DUPLEX VENOUS LEG RIGHT - 2022-07-21 15:17:00 Adele Baca [facility] BY VASCULAR LAB [facility] XR FEMUR 2 VW RIGHT 2022-07-21 05:55[facility] RIGHT 2022-07-21 05:55:54 Keven [facility] XR TIBIA FIBULA 2 VW 2022-07-21 05:55:54 [facility] CT ABDOMEN PELVIS W 2022-07-21 05:40:00 Keven [facility] CONTRAST [facility] PHOSPHORUS 2022-07-21 04:11:00 Keven [facility] MAGNESIUM 2022-07-21 04:11:00 Keven [facility] BASIC METABOLIC PANEL 2022-07-21 04:11:00 Keven [facility] (NA, K, CL, CO2, GLUCOSE, Medica l Branch BUN, CREATININE, CA) CBC WITH DIFF 2022-07-21 04:11:00 Den, [facility] o f [facility] PROTHROMBIN TIME / INR 2022-07-21 04:11:[address] [facility] POCT GLUCOSE (AUTOMATED) 2022-05-15 12:16:00 Krystal Jb Bennett [facility] POCT GLUCOSE (AUTOMATED) 2022-05-15 01:09:00 [facility]) 2022-05-14 21:25:00 [facility] ([facility]OMATED) 2022-05-14 16:18:00 Jb Rice [facility] MR LUMBAR SPINE WO 2022-05-14 14:24:00 Rickey Cummings [facility] POCT GLUCOSE (AUTOMATED) 2022-05-14 12:34:00 Jb Rice Sabrina [facility] POCT GLUCOSE (AUTOMATED) 2022-05-14 01:21:00 Jb Riec Uni [facility] POCT GLUCOSE (AUTOMATED) 2022-05-13 22:03:00 Jb Rice [facility] CBC WITH DIFF 2022-05-13 20:46:00 Rickey Cummings [facility] POCT GLUCOSE (AUTOMATED) 2022-05-13 16:52:00 Jb Rice [facility] POCT GLUCOSE (AUTOMATED) 2022-05-13 12:58:00 Jb Rice Sabrina [facility] BASIC METABOLIC PANEL 2022-05-13 09:43:00 Rickey Cummings [facility] (NA, K, CL, CO2, GLUCOSE, Medica l Branch BUN, CREATININE, CA) CBC WITHOUT DIFF 2022-05-13 09:43:00 [facility]) 2022-05-13 01:03:00 [facility] (AUTOMATED) 2022-05-12 21:07:00 Jb Rice Uni [facility] POCT GLUCOSE (AUTOMATED) 2022-05-12 16:27:00 SagarvalentinJb [facility] POCT GLUCOSE (AUTOMATED) 2022-05-12 12:22:00 KrystalJb [facility] BASIC METABOLIC PANEL 2022-05-12 09:05:00 [facility] (NA, K, CL, CO2, GLUCOSE, Feli, [facility] BUN, CREATININE, CA) CBC WITH DIFF 2022-05-12 09:05:00 [facility] [place] Feli, [facility] GLYCOSYLATED HEMOGLOBIN 2022-05-12 09:05:00 Jose Hernandez [facility] (A1C) [facility] POCT GLUCOSE (AUTOMATED) 2022-05-12 09:03:00 Krystal Jb [facility] POCT GLUCOSE (AUTOMATED) 2022-05-12 04:59:00 Krystal Jb [facility] POCT GLUCOSE (AUTOMATED) 2022-05-12 01:14:00 KrystalJb [facility] POCT GLUCOSE (AUTOMATED) 2022-05-11 21:43:00 KrystalEveJb [facility] POCT GLUCOSE (AUTOMATED) 2022-05-11 16:34:00 KrystalJb [facility] POCT GLUCOSE (AUTOMATED) 2022-05-11 12:36:00 Krystal Jb [facility] BASIC METABOLIC PANEL 2022-05-11 11:35:00 Jade [facility] (NA, K, CL, CO2, GLUCOSE, Medica l Branch BUN, CREATININE, CA) PHOSPHORUS 2022-05-11 09:21:00 Jade Dasilva [facility] MAGNESIUM 2022-05-11 09:21:00 Jade Dasilva [facility] CBC WITH DIFF 2022-05-11 09:21:00 Jade Dasilva [facility] POCT GLUCOSE (AUTOMATED) 2022-05-11 09:20:00 Jb Rice [facility] [place] [facility] [employer] POCT GLUCOSE (AUTOMATED) 2022-05-11 05:38:00 Jb Rice Sabrina [facility] POCT GLUCOSE (AUTOMATED) 2022-05-11 00:57:00 Jb Rice Sabrina [facility] POCT GLUCOSE (AUTOMATED) 2022-05-10 21:39:00 Jb Rice Sabrina versity of [facility] POCT GLUCOSE (AUTOMATED) 2022-05-10 16:34:00 Jb Rice Sabrina versity of [facility] POCT GLUCOSE (AUTOMATED) 2022-05-10 12:49:00 Jb Rice Sabrina versity of [facility] BASIC METABOLIC PANEL 2022-05-10 09:54:00 [facility] ([facility], K, CL, CO2, GLUCOSE, Medica l Branch BUN, CREATININE, CA) CBC WITH DIFF 2022-05-10 09:54:[facility] POCT GLUCOSE (AUTOMATED) 2022-05-10 09:51:00 Jb Rice Sabrina versity of [facility] POCT GLUCOSE (AUTOMATED) 2022-05-10 05:21:00 Jb Rice Sabrina [facility] [place] [facility] [employer] POCT GLUCOSE (AUTOMATED) 2022-05-10 00:59:00 Jb Rice Sabrina [facility] [place] [facility] [employer] POCT GLUCOSE (AUTOMATED) 2022-05-09 16:50:00 Jb Rice Sabrina [facility] [place] [facility] [employer] POCT GLUCOSE (AUTOMATED) 2022-05-09 12:53:00 Jb Rice Sabrina [facility] POCT GLUCOSE (AUTOMATED) 2022-05-09 09:19:00 Jb Rice Sabrina [facility] POCT GLUCOSE (AUTOMATED) 2022-05-09 06:20:00 Jb Rice Uni [facility] POCT GLUCOSE (AUTOMATED) 2022-05-09 00:52:00 Jb Rice Sabrina versity of [facility] POCT GLUCOSE (AUTOMATED) 2022-05-08 21:43:00 Jb Rice [facility] POCT GLUCOSE (AUTOMATED) 2022-05-08 21:43:00 KrystalJb [facility] POCT GLUCOSE (AUTOMATED) 2022-05-08 16:21:00 KrystalJb [facility] POCT GLUCOSE (AUTOMATED) 2022-05-08 16:21:00 Krystal Jb [facility] POCT GLUCOSE (AUTOMATED) 2022-05-08 12:36:00 Sagaridamervat Jb [facility] POCT GLUCOSE (AUTOMATED) 2022-05-08 12:36:00 Krystal Jb [facility] PHOSPHORUS 2022-05-08 09:21:00 Krystal [facility] MAGNESIUM 2022-05-08 09:21:[facility] 2022-05-08 09:21:00 Krystal [facility] (NA, K, CL, CO2, GLUCOSE, Medica l Branch BUN, CREATININE, CA) CBC WITH DIFF 2022-05-08 09:21:00 Krystal [facility] PHOSPHORUS 2022-05-08 09:21:00 Krystal [facility] MAGNESIUM 2022-05-08 09:21:00 [facility] BASIC METABOLIC PANEL 2022-05-08 09:21:00 [facility]rystal [facility] (NA, K, CL, CO2, GLUCOSE, Medica l Branch BUN, CREATININE, CA) CBC WITH DIFF 2022-05-08 09:21:00 [facility] POCT GLUCOSE (AUTOMATED) 2022-05-08 09:16:00 Jb [facility] POCT GLUCOSE (AUTOMATED) 2022-05-08 09:16:00 Krystal Jb [facility] POCT GLUCOSE (AUTOMATED) 2022-05-08 05:50:00 Jb [facility] POCT GLUCOSE (AUTOMATED) 2022-05-08 05:50:00 KrystalJb [facility] POCT GLUCOSE (AUTOMATED) 2022-05-08 00:41:00 SagarvalentinJb [facility] POCT GLUCOSE (AUTOMATED) 2022-05-08 00:41:00 SagarvalentinJb [facility] POCT GLUCOSE (AUTOMATED) 2022-05-07 21:00:00 SagarvalentinEveJb [facility] POCT GLUCOSE (AUTOMATED) 2022-05-07 21:00:00 SagarvalentinJb [facility] COLOSTOMY REVISION 2022-05-07 17:59:00 Sand[facility]ep [facility] WOUND VAC PLACEMENT 2022-05-07 17:59:[address] [facility] COLOSTOMY REVISION 2022-05-07 17:59:00 Sand[facility]ep [facility] WOUND VAC PLACEMENT 2022-05-07 17:59:[address] [facility] POCT GLUCOSE (AUTOMATED) 2022-05-07 16:23:00 Maricruz Godfrey [facility] POCT GLUCOSE (AUTOMATED) 2022-05-07 16:23:00 Maricruz Godfrey [facility] POCT GLUCOSE (AUTOMATED) 2022-05-07 13:21:00 Maricruz Godfrey [facility] POCT GLUCOSE (AUTOMATED) 2022-05-07 13:21:00 Maricruz Godfrey [facility] PHOSPHORUS 2022-05-07 08:16:00 [facility] MAGNESIUM 2022-05-07 08:16:00 [facility] BASIC METABOLIC PANEL 2022-05-07 08:16:00 Jb [facility] (NA, K, CL, CO2, GLUCOSE, Medica l Branch BUN, CREATININE, CA) CBC WITH DIFF 2022-05-07 08:16:00 [facility] 2022-05-07 08:16:00 [facility] MAGNESIUM 2022-05-07 08:16:00 [facility] BASIC METABOLIC PANEL 2022-05-07 08:16:00 [facility] (NA, K, CL, CO2, GLUCOSE, Medica l Branch BUN, CREATININE, CA) CBC WITH DIFF 2022-05-07 08:16:00 [facility] POCT GLUCOSE (AUTOMATED) 2022-05-07 06:04:00 Maricruz Godfrey [facility] POCT GLUCOSE (AUTOMATED) 2022-05-07 06:04:00 Maricruz Godfrey [facility] POCT GLUCOSE (AUTOMATED) 2022-05-07 02:40:00 Maricruz Godfrey [facility] POCT GLUCOSE (AUTOMATED) 2022-05-07 02:40:00 Maricruz Godfrey [facility] POCT GLUCOSE (AUTOMATED) 2022-05-07 01:25:00 Maricruz Godfrey [facility] POCT GLUCOSE (AUTOMATED) 2022-05-07 01:25:00 Maricruz Godfrey [facility] POCT GLUCOSE (AUTOMATED) 2022-05-06 22:00:00 Maricruz Godfrey [facility] POCT GLUCOSE (AUTOMATED) 2022-05-06 22:00:00 Maricruz Godfrey [facility] POCT GLUCOSE (AUTOMATED) 2022-05-06 17:00:00 Maricruz Godfrey [facility] POCT GLUCOSE (AUTOMATED) 2022-05-06 17:00:00 Maricruz Godfrey [facility] POCT GLUCOSE (AUTOMATED) 2022-05-06 13:48:00 Maricruz Godfrey [facility] POCT GLUCOSE (AUTOMATED) 2022-05-06 13:48:00 Maricruz Godfrey [facility] POCT GLUCOSE (AUTOMATED) 2022-05-06 10:02:00 Maricruz Godfrey [facility] POCT GLUCOSE (AUTOMATED) 2022-05-06 10:02:00 Maricruz Godfrey [facility] POCT GLUCOSE (AUTOMATED) 2022-05-06 09:00:00 Maricruz Godfrey [facility] POCT GLUCOSE (AUTOMATED) 2022-05-06 09:00:00 Maricruz Godfrey [facility] POCT GLUCOSE (AUTOMATED) 2022-05-06 06:24:00 Maricruz Godfrey [facility] POCT GLUCOSE (AUTOMATED) 2022-05-06 06:24:00 Maricruz Godfrey [facility] PHOSPHORUS 2022-05-06 05:25:00 [facility] MAGNESIUM 2022-05-06 05:25:00 [facility] 2022-05-06 05:25:00 [facility] ([facility], K, CL, CO2, GLUCOSE, Medica l Branch BUN, CREATININE, CA) CBC WITH DIFF 2022-05-06 05:25:00 [facility] 2022-05-06 05:25:00 [facility] 2022-05-06 05:25:00 [facility]OLIC PANEL 2022-05-06 05:25:00 [facility] (NA, K, CL, CO2, GLUCOSE, Medica l Branch BUN, CREATININE, CA) CBC WITH DIFF 2022-05-06 05:25:00 [facility] PO[facility]SE (AUTOMATED) 2022-05-06 05:22:00 Maricruz Godfrey [facility] POCT GLUCOSE (AUTOMATED) 2022-05-06 05:22:00 Maricruz Godfrey [facility] EXTERNAL PROVIDER RECORDS 2022-05-06 05:01:00 Doctor Unassigned, [facility] Name [facility] EXTERNAL PROVIDER RECORDS 2022-05-06 05:01:00 Doctor Unassigned, [facility] Name [facility] POCT GLUCOSE (AUTOMATED) 2022-05-06 00:30:00 Maricruz Godfrey [facility] POCT GLUCOSE (AUTOMATED) 2022-05-06 00:30:00 Maricruz Godfrey [facility] POCT GLUCOSE (AUTOMATED) 2022-05-05 21:41:00 Maricruz Godfrey [facility] POCT GLUCOSE (AUTOMATED) 2022-05-05 21:41:00 Maricruz Godfrey [facility] POCT GLUCOSE (AUTOMATED) 2022-05-05 17:05:00 Maricruz Godfrey [facility] POCT GLUCOSE (AUTOMATED) 2022-05-05 17:05:00 Maricruz Godfrey [facility] POCT GLUCOSE (AUTOMATED) 2022-05-05 10:58:00 Maricruz Godfrey [facility] POCT GLUCOSE (AUTOMATED) 2022-05-05 10:58:00 Maricruz Godfrey [facility] PHOSPHORUS 2022-05-05 09:32:00 Jade Dasilva [facility] MAGNESIUM 2022-05-05 09:32:00 Brown Jadelora Oro [facility] BASIC METABOLIC PANEL 2022-05-05 09:32:00 [facility] (NA, K, CL, CO2, GLUCOSE, Medica l Branch BUN, CREATININE, CA) CBC WITH DIFF 2022-05-05 09:32:00 Jade Dasilva [facility] PHOSPHORUS 2022-05-05 09:32:00 Jade Dasilva [facility] MAGNESIUM 2022-05-05 09:32:00 Brown Jadelora Oro [facility] BASIC METABOLIC PANEL 2022-05-05 09:32:00 [facility] (NA, K, CL, CO2, GLUCOSE, Medica l Branch BUN, CREATININE, CA) CBC WITH DIFF 2022-05-05 09:32:00 Jade Dasilva [facility] POCT GLUCOSE (AUTOMATED) 2022-05-04 16:24:00 Maricruz Godfrey [facility] POCT GLUCOSE (AUTOMATED) 2022-05-04 16:24:00 Maricruz Godfrey [facility] BASIC METABOLIC PANEL 2022-05-04 12:45:00 Jose [facility] (NA, K, CL, CO2, GLUCOSE, Medica l Branch BUN, CREATININE, CA) CBC WITHOUT DIFF 2022-05-04 12:45:00 [facility] BASIC METABOLIC PANEL 2022-05-04 12:45:00 David [facility] (NA, K, CL, CO2, GLUCOSE, Medica l Branch BUN, CREATININE, CA) CBC WITHOUT DIFF 2022-05-04 12:45:00 Jose Hernandez [facility] POCT GLUCOSE (AUTOMATED) 2022-05-04 10:58:00 Maricruz Godfrey [facility] POCT GLUCOSE (AUTOMATED) 2022-05-04 10:58:00 Maricruz Godfrey [facility] PHOSPHORUS 2022-05-04 10:47:00 [facility] MAGNESIUM 2022-05-04 10:47:00 [facility] BASIC METABOLIC PANEL 2022-05-04 10:47:00 [facility] (NA, K, CL, CO2, GLUCOSE, Medica l Branch BUN, CREATININE, CA) CBC WITH DIFF 2022-05-04 10:47:00 [facility] PHOSPHORUS 2022-05-04 10:47:00 [facility]22-05-04 10:47:00 [facility] BASIC METABOLIC PANEL 2022-05-04 10:47:00 [facility] (NA, K, CL, CO2, GLUCOSE, Medica l Branch BUN, CREATININE, CA) CBC WITH DIFF 2022-05-04 10:47:00 [facility] PO[facility] (AUTOMATED) 2022-05-03 23:18:00 Maricruz Godfrey [facility] POCT GLUCOSE (AUTOMATED) 2022-05-03 23:18:00 Maricruz Godfrey [facility] POCT GLUCOSE (AUTOMATED) 2022-05-03 16:27:00 Maricruz Godfrey [facility] POCT GLUCOSE (AUTOMATED) 2022-05-03 16:27:00 Maricruz Godfrey [facility] POCT GLUCOSE (AUTOMATED) 2022-05-03 11:13:00 Maricruz Godfrey [facility] POCT GLUCOSE (AUTOMATED) 2022-05-03 11:13:00 Maricruz Godfrey [facility] PHOSPHORUS 2022-05-03 10:28:00 Jade Dasilva [facility] MAGNESIUM 2022-05-03 10:28:00 Jade Dasilva [facility] BASIC METABOLIC PANEL 2022-05-03 10:28:00 [facility] (NA, K, CL, CO2, GLUCOSE, Medica l Branch BUN, CREATININE, CA) CBC WITH DIFF 2022-05-03 10:28:00 Jade Dasilva [facility] PHOSPHORUS 2022-05-03 10:28:00 Jade Dasilva [facility] MAGNESIUM 2022-05-03 10:28:00 Jade Dasilva [facility] BASIC METABOLIC PANEL 2022-05-03 10:28:00 [facility] (NA, K, CL, CO2, GLUCOSE, Medica l Branch BUN, CREATININE, CA) CBC WITH DIFF 2022-05-03 10:28:00 Jade Dasilva [facility] POCT GLUCOSE (AUTOMATED) 2022-05-03 06:06:00 Maricruz Godfrey [facility] POCT GLUCOSE (AUTOMATED) 2022-05-03 06:06:00 Maricruz Godfrey [facility] POCT GLUCOSE (AUTOMATED) 2022-05-02 21:30:00 Linda Hopkins [facility] POCT GLUCOSE (AUTOMATED) 2022-05-02 21:30:00 Linda Hopkins [facility] PHOSPHORUS 2022-05-02 07:44:00 Jade Dasilva [facility] MAGNESIUM 2022-05-02 07:44:00 Jade Dasilva [facility] BASIC METABOLIC PANEL 2022-05-02 07:44:00 [facility] (NA, K, CL, CO2, GLUCOSE, Medica l Branch BUN, CREATININE, CA) CBC WITH DIFF 2022-05-02 07:44:00 Jade Dasilva [facility] PHOSPHORUS 2022-05-02 07:44:00 Jade Dasilva [facility] MAGNESIUM 2022-05-02 07:44:00 Jade Dasilva [facility] BASIC METABOLIC PANEL 2022-05-02 07:44:00 [facility] (NA, K, CL, CO2, GLUCOSE, Medica l Branch BUN, CREATININE, CA) CBC WITH DIFF 2022-05-02 07:44:00 Jade Dasilva [facility] POCT GLUCOSE (AUTOMATED) 2022-05-01 23:24:00 Linda [facility] POCT GLUCOSE (AUTOMATED) 2022-05-01 23:24:[address] [facility] POCT GLUCOSE (AUTOMATED) 2022-05-01 17:40:[address] [facility] POCT GLUCOSE (AUTOMATED) 2022-05-01 17:40:00 Linda Hopkins [facility] PHOSPHORUS 2022-05-01 08:54:00 [facility] 2022-05-01 08:54:00 [facility] HEPATIC FUNCTION PANEL 2022-05-01 08:54:00 [facility] ([id number]) (ALB,T.PRO,[facility] T,BU/BC,ALT,AST,ALK PHOS) BASIC METABOLIC PANEL 2022-05-01 08:54:00 [facility] (NA, K, CL, CO2, GLUCOSE, Medica l Branch BUN, CREATININE, CA) CBC WITH DIFF 2022-05-01 08:54:00 [facility] PHOSPHORUS 2022-05-01 08:54:00 [facility] MAGNESIUM 2022-05-01 08:54:00 [facility] HEPATIC FUNCTION PANEL 2022-05-01 08:54:00 [facility] ([id number]) (ALB,T.PRO,[facility]ILI Medical Branch T,BU/BC,ALT,AST,ALK PHOS) BASIC METABOLIC PANEL 2022-05-01 08:54:00 [facility] (NA, K, CL, CO2, GLUCOSE, Medica l Branch BUN, CREATININE, CA) CBC WITH DIFF 2022-05-01 08:54:00 [facility] POCT GLUCOSE (AUTOMATED) 2022-04-30 23:29:00 Linda Hopkins [facility] POCT GLUCOSE (AUTOMATED) 2022-04-30 23:29:00 Linda Hopkins [facility] PHOSPHORUS 2022-04-30 09:20:00 Jade Dasilva [facility] MAGNESIUM 2022-04-30 09:20:00 Brown [facility] THYROID STIMULATING 2022-04-30 09:20:00 [facility] 2022-04-30 09:20:00 [facility] (NA, K, CL, CO2, GLUCOSE, Medica l Branch BUN, CREATININE, CA) CBC WITH DIFF 2022-04-30 09:20:00 Brown [facility] PHOSPHORUS 2022-04-30 09:20:00 Brown [facility] MAGNESIUM 2022-04-30 09:20:00 Brown [facility] THYROID STIMULATING 2022-04-30 09:20:00 [facility] BASIC METABOLIC PANEL 2022-04-30 09:20:00 Brown Jadelora Oro [facility] (NA, K, CL, CO2, GLUCOSE, Medica l Branch BUN, CREATININE, CA) CBC WITH DIFF 2022-04-30 09:20:00 Jade Dasilva [facility] POCT GLUCOSE (AUTOMATED) 2022-04-30 04:50:00 Linda Hopkins [facility] POCT GLUCOSE (AUTOMATED) 2022-04-30 04:50:00 Linda Hopkins [facility] POCT GLUCOSE (AUTOMATED) 2022-04-30 01:34:00 Linda Hopkins [facility] POCT GLUCOSE (AUTOMATED) 2022-04-30 01:34:00 Linda Hopkins [facility] POCT GLUCOSE (AUTOMATED) 2022-04-29 22:58:00 Linda Hopkins [facility] POCT GLUCOSE (AUTOMATED) 2022-04-29 22:58:00 Linda Hopkins [facility] PHOSPHORUS 2022-04-29 20:07:00 [facility]-29 20:07[facility]00 [facility]EL 2022-04-29 20:07:00 [facility] (NA, K, CL, CO2, GLUCOSE, Medica l Branch BUN, CREATININE, CA) PHOSPHORUS 2022-04-29 20:07:00 [facility]22-04-29 20:07[facility]00 [facility] 2022-04-29 20:07:00 [facility] (NA, K, CL, CO2, GLUCOSE, Medica l Branch BUN, CREATININE, CA) PHOSPHORUS 2022-04-29 08:29:00 Brown Jade [facility] MAGNESIUM 2022-04-29 08:29:00 Brown [facility] BASIC METABOLIC PANEL 2022-04-29 08:29:00 Brown [facility]adelora [facility] (NA, K, CL, CO2, GLUCOSE, Medica l Branch BUN, CREATININE, CA) CBC WITH DIFF 2022-04-29 08:29:00 Brown Jade [facility] PHOSPHORUS 2022-04-29 08:29:00 Brown [facility] MAGNESIUM 2022-04-29 08:29:00 Brown [facility] BASIC METABOLIC PANEL 2022-04-29 08:29:00 Brown Jadelora [facility] (NA, K, CL, CO2, GLUCOSE, Medica l Branch BUN, CREATININE, CA) CBC WITH DIFF 2022-04-29 08:29:00 Brown [facility] PREPARE PACKED RBC 2022-04-29 01:44:36 [facility] 2022-04-29 01:44:36 Rosi Jones [facility] PHOSPHORUS 2022-04-28 21:01:00 Olivia Zamudio [facility] MAGNESIUM 2022-04-28 21:01:00 Olivia Zamudio [facility] BASIC METABOLIC PANEL 2022-04-28 21:01:00 [facility] (NA, K, CL, CO2, GLUCOSE, Medica l Branch BUN, CREATININE, CA) CBC WITH DIFF 2022-04-28 21:01:00 Olivia Zamudio [facility] PHOSPHORUS 2022-04-28 21:01:00 Olivia Zamudio [facility] MAGNESIUM 2022-04-28 21:01:00 Olivia Zamudio [facility] BASIC METABOLIC PANEL 2022-04-28 21:01:00 [facility] (NA, K, CL, CO2, GLUCOSE, Medica l Branch BUN, CREATININE, CA) CBC WITH DIFF 2022-04-28 21:01:00 Olivia Zamudio [facility] PHOSPHORUS 2022-04-28 20:03:00 lOivia Zamudio [facility] MAGNESIUM 2022-04-28 20:03:00 Olivia Zamudio [facility] BASIC METABOLIC PANEL 2022-04-28 20:03:00 [facility] (NA, K, CL, CO2, GLUCOSE, Medica l Branch BUN, CREATININE, CA) PHOSPHORUS 2022-04-28 20:03:00 Olivia Zamudio [facility] MAGNESIUM 2022-04-28 20:03:00 Olivia Zamudio [facility] BASIC METABOLIC PANEL 2022-04-28 20:03:00 [facility] (NA, K, CL, CO2, GLUCOSE, Medica l Branch BUN, CREATININE, CA) XR CHEST 1 VW 2022-04-28 16:15:00 Olivia Zamudio [facility] XR CHEST 1 VW 2022-04-28 16:15:00 Olivia Zamudio [facility] XR CHEST 1 VW 2022-04-28 16:15:00 Olivia Zamudio [facility] POCT GLUCOSE (AUTOMATED) 2022-04-28 12:03:00 Linda Hopkins [facility] POCT GLUCOSE (AUTOMATED) 2022-04-28 12:03:00 Linda Hopkins [facility] POCT GLUCOSE (AUTOMATED) 2022-04-28 12:03:00 Linda Hopkins [facility] MRSA / MSSA SCREEN BY 2022-04-28 09:46:00 [facility] MRSA / MSSA SCREEN BY 2022-04-28 09:46:00 Green, [facility] PCR, [facility] MRSA / MSSA SCREEN BY 2022-04-28 09:46:[address] [facility] PCR, [facility] PHOSPHORUS 2022-04-28 08:48:00 [facility] 2022-04-28 08:48:00 [facility] BASIC MET[facility]OLIC PANEL 2022-04-28 08:48:00 [facility] (NA, K, CL, CO2, GLUCOSE, Medica l Branch BUN, CREATININE, CA) CBC WITH DIFF 2022-04-28 08:48:00 [facility] 2022-04-28 08:48:00 [facility] 2022-04-28 08:48:00 [facility] BASIC METABOLIC PANEL 2022-04-28 08:48:00 [facility] (NA, K, CL, CO2, GLUCOSE, Medica l Branch BUN, CREATININE, CA) CBC WITH DIFF 2022-04-28 08:48:00 [facility] 2022-04-28 08:48:00 [facility] 2022-04-28 08:48:00 [facility] BASIC METABOLIC PANEL 2022-04-28 08:48:00 Iris Lacy [facility] (NA, K, CL, CO2, GLUCOSE, Medica l Branch BUN, CREATININE, CA) CBC WITH DIFF 2022-04-28 08:48:00 Regino [facility] XR CHEST 1 VW 2022-04-28 06:02:00 [facility] XR CHEST 1 VW 2022-04-28 06:02[facility] CHEST 1 VW 2022-04-28 06:02:00 [facility] AC PANEL 20 + LACTIC ACID 2022-04-28 03:59:00 Kinsey [facility] AC PANEL 20 + LACTIC ACID 2022-04-28 03:59:00 Kinsey [facility] AC PANEL 20 + LACTIC ACID 2022-04-28 03:59:00 Spencer Euceda [facility] SURGICAL PATHOLOGY EXAM 2022-04-28 01:19:00 Sandeep [facility] SURGICAL PATHOLOGY EXAM 2022-04-28 01:19:00 Sandeep [facility] FUNGUS (ROUTINE) CULTURE 2022-04-28 00:14:00 Linda Hopkins [facility] BODY FLUID 2022-04-28 00:14:00 Sandeep [facility] CULTURE(AEROBIC/ANAEROBIC Medica l Branch ) AFB CULTURE 2022-04-28 00:14:00 Sandeep [facility] BODY FLUID 2022-04-28 00:14:00 Sandeep [facility] CULTURE(AEROBIC/ANAEROBIC Medica l Branch ) FUNGUS (ROUTINE) CULTURE 2022-04-28 00:14:00 Linda Hopkins [facility] AFB CULTURE 2022-04-28 00:14:00 Sandeep [facility] BODY FLUID 2022-04-28 00:14:00 Sandeep [facility] CULTURE(AEROBIC/ANAEROBIC Medica l Branch ) FUNGUS (ROUTINE) CULTURE 2022-04-28 00:14:00 Linda Hopkins [facility] ABG+COOX+NA+K+GLU+CA2+ 2022-04-28 00:08:00 [facility] ABG+COOX+NA+K+GLU+CA2+ 2022-04-28 00:08:00 [facility] EXPLORATORY LAPAROTOMY 2022-04-27 23:11:00 [facility] SIGMOIDECTOMY 2022-04-27 23:11:00 [facility] EXPLORATORY LAPAROTOMY 2022-04-27 23:11:00 [facility] SIGMOIDECTOMY 2022-04-27 23:11:00 Sandeep [facility] HB ABO GROUPING 2022-04-27 22:06:00 Regino [facility] HB ABO GROUPING 2022-04-27 22:06:00 Regino [facility] HB ABO GROUPING 2022-04-27 22:06:00 Regino [facility] COVID-19 (ID NOW RAPID 2022-04-27 21:48:00 [facility] Medical Branch COVID-19 (ID NOW RAPID 2022-04-27 21:48:00 [facility] Medical Branch LAB ONLY COVID 2022-04-27 21:48:00 Linda Hopkins [facility] COVID-19 (ID NOW RAPID 2022-04-27 21:48:00 [facility] Medical Branch LAB ONLY COVID 2022-04-27 21:48:00 Linda Hopkins [facility] LACTIC ACID WHOLE BLOOD 2022-04-27 12:44:00 Lorraine Shaver [facility] CT ABDOMEN PELVIS WO 2022-04-27 12:06:13 [facility] CONTRAST [facility] LIPASE 2022-04-27 10:27:00 Lorraine Shaver [facility] COMP. METABOLIC PANEL 2022-04-27 10:27:00 Lorraine [facility]aver [facility] ([id number]) [facility] CBC WITH DIFF 2022-04-27 10:27:00 Lorraine Shaver [facility] ASSIGNMENT OF BENEFITS 2022-04-27 10:23:13 Doctor Unassigned, [facility] CONSENT/REFUSAL FOR 2022-04-27 10:22:55 [facility] DI[facility] AND TREATMENT [place] [facility] URINALYSIS 2022-04-27 10:08:00 Lorraine Shavre [facility] VANCOMYCIN TROUGH 2022-04-22 10:32:00 [facility] BASIC METABOLIC PANEL 2022-04-22 10:31:00 [facility] (NA, K, CL, CO2, GLUCOSE, Medica l Branch BUN, CREATININE, CA) CBC WITHOUT DIFF 2022-04-22 10:31:00 [facility] Jay [facility] CBC WITH DIFF 2022-04-21 16:17:00 Aliya Caruso [facility] PROTHROMBIN TIME / INR 2022-04-21 16:17:00 Aliya Caruso [facility] WOUND CULTURE 2022-04-21 15:22:00 [facility] COMP. METABOLIC PANEL 2022-04-21 11:08:00 Aliya Caruso [facility] ([id number]) [facility] WOUND CULTURE 2022-04-21 11:08:00 Aliya Caruso [facility] CT FEMUR RIGHT W CONTRAST 2022-04-20 19:04:00 Iris Krishnan [facility] CT FEMUR LEFT W CONTRAST 2022-04-20 16:53:37 Iris Krishnan [facility] BLOOD CULTURE SCREEN 2022-04-20 15:13:00 Iris Krishnan [facility] COMP. METABOLIC PANEL 2022-04-20 15:13:00 Iris Krishnan [facility] ([id number]) [facility] CBC WITH DIFF 2022-04-20 15:13:00 Iris Krsihnan [facility] BLOOD CULTURE SCREEN 2022-04-20 14:59:00 Iris Krishnan [facility] XR FEMUR 2 VW RIGHT 2022-04-20 14:35:08 Iris Krishnan [facility] XR HIPS 3 VW RIGHT 2022-04-20 14:35:08 Iris Krishnan [facility] HOME HEALTH - OTHER 2022-02-03 05:01:00 [facility] Name [facility] HEALTH - OTHER 2022-01-16 05:01:00 [facility] Name [facility] HEALTH - OTHER 2021-12-05 05:01:00 [facility] Name [facility] Plan of Care Planned Activity Planned Date Details Comments Source Goal Plan of Care Note [code = 42069-9] Goal Plan of Care Note [code = 15805-6] Goal Plan of Care Note [code = 86785-5] Goal Plan of Care Note [code = 05029-3] Goal Plan of Care Note [code = 38076-9] Goal Plan of Care Note [code = 45548-0] Goal Plan of Care Note [code = 60529-5] Goal Plan of Care Note [code = 43964-7] Goal Plan of Care Note [code = 83584-0] Goal Plan of Care Note [code = 57028-3] Goal Plan of Care Note [code = 61788-1] Goal Plan of Care Note [code = 69243-8] Goal Plan of Care Note [code = 14063-9] Goal Plan of Care Note [code = 89636-5] Goal Plan of Care Note [code = 60711-0] Goal Plan of Care Note [code = 86452-3] Encounters Start End Encounter Admission Attending Care Care Encounter Source Date/Time Date/Time Type Type Clinicians Facility Department ID 2021-05-12 Inpatient ABEL [facility] [id number] Univers 00:10:15 PATRICK sanford of [facility] 2021-05-11 Inpatient U LAURIE [facility] SOR [id number] Univers 23:41:29 MARICRUZ ity of [facility] 2021-05-09 Emergency [facility] [id number] Univers 19:36:35 ity of [facility] 2021-05-09 Emergency [facility] [id number] Univers 19:36:11 ity of [facility] 2021-05-08 Emergency [facility] [id number] Univers 20:49:32 ity of [facility] 2022-09-04 2022-09-04 Telephone CANDE Ojeda 1.2.840.114 10 [id number] Univers 00:00:00 00:00:00 Fasa [facility] 350.1.13.10 i ty of CL[place] [id number] [facility] [address] 2022-08-01 2022-08-01 Outpatient R [facility] [id number] Univers 00:00:00 00:00:00 ity of [facility] 2022-07-31 2022-07-31 Outpatient R [facility] [id number] Univers 00:00:00 00:00:00 ity [facility] 2022-07-31 2022-07-31 Orders Doctor MARICRUZ 1.2.840.114 [id number] Univers 00:00:00 00:00:00 Only Unassigned, YADY 350.1.13.10 ity of [place] [facility] 4.2.7.2.686 [place] as [id number] [facility] [address] 2022-07-28 2022-07-28 Transition ABIGAIL Shay 1.2.840.114 [id number] Univers 00:00:00 00:00:00 of Care Arlene RUSTY 350.1.13.10 [place] [id number] [facility] [address] 2022-07-20 2022-07-24 [facility] [id number] Univers 19:51:00 16:48:00 LINDA ity [facility] 2022-07-20 2022-07-24 [facility] 1.2.840.114 [id number] Univers 19:51:00 16:48:00 Encounter [facility] 350.1.13.10 it[place] [facility] [id number] [address] ([facility]) 2022-07-16 2022-07-16 Outpatient R SANDEEP [facility] [id number] Univers 15:45:00 16:23:11 LINDA [facility] 2022-07-16 2022-07-16 Office Service/[place], Surgery C [facility] 1.2.840.114 [id number] Univers 15:45:00 16:23:11 Visit Linda Hopkins SPECIALTY 350.1.13.10 ity of CARE 4.2.7.2.686 [facility] CENTER AT [phone] [place] [address] 2022-07-09 2022-07-09 Outpatient R SANDEEP [facility] [id number] Univers 14:15:00 14:15:00 [facility] 2022-07-09 2022-07-09 Telephone Service/Gen [facility] 1.2.840.114 [id number] Univers 00:00:00 00:00:00 surg, SPECIALTY 350.1.13.10 ity of Surgery C [place] [phone] [place] remydariusz DE LEÓN [address] [facility] 2022-05-18 2022-05-18 Transition ABIGAIL Shay 1.2.840.114 [id number] Univers 00:00:00 00:00:00 of Care Arlene RUSTY 350.1.13.10 it y of [place] 4.2.7.2.686 [facility] [id number] [facility] [address] 2022-04-27 2022-05-15 Inpatient X RICKEY CUMMINGS [facility] [id number] Univers 11:41:00 11:29:00 RICKEY CUMMINGS [facility] 2022-04-27 2022-05-15 [facility] Linda Hopkins [facility] 1.2.840.1 14 [id number] Univers 11:41:00 11:29:00 Encounter Maricruz Godfrey [facility] 350.1.1 3.10 ity of Alejandra Key [place]ATT[place] 4.2.7.2.686 [facility] [place] [facility] [phone] [address] ([facility]) 2022-05-07 2022-05-07 Surgery [facility] 1.2.840.114 [id number] Univers 12:25:00 14:39:00 [facility] 350.1.13.10 ity of CARE 4.2.7.2.686 [facility] AT [phone] [place] dical VICTORY [address] [facility] 2022-04-28 2022-04-28 Outpatient R JUAN MANUEL LOPEZ [facility] [id number] Univers 13:30:00 13:30:00 JUAN MANUEL LOPEZ ity of [facility] 2022-04-27 2022-04-27 Surgery [facility] 1.2.840.114 [id number] Univers 18:55:00 23:23:00 [facility] 350.1.13.10 ity of CARE 4.2.7.2.686 [facility] AT [phone] [facility] [facility] 2022-04-27 2022-04-27 Emergency X FREDY [facility] ERT [id number] Univers 04:18:00 11:08:00 LIBBY elmorey of [facility] 2022-04-27 2022-04-27 Emergency Lorraine Shaver S [facility] 1.2.840 .114 [id number] Univers 04:18:00 11:08:00 Libby Daniel 350.1.13.1 0 ity of [place] 4.2.7.2.686 [facility] [id number] [address] 2022-04-27 2022-04-27 Telephone [facility] 1.2.455.869 [id number] Univers 00:00:00 00:00:00 [facility] 350.1.13.10 it y of CANCER 4.2.7.2.686 [facility] - [phone] [facility] [address] 2022-04-23 2022-04-23 Transition ABIGAIL Oates 1.2.840.114 [id number] Univers 00:00:00 00:00:00 of Care Susan Schneider MENDEZ 350.1.13.10 i ty of [place] [id number] [facility] [address] 2022-04-20 2022-04-22 Outpatient X [facility] [id number] [id number] Univers 09:05:00 20:49:00 ity of [facility] 2022-04-20 2022-04-22 Emergency Mercedes Alexis 1.2.840.11 [id number] Univers 09:05:00 20:49:00 Iris Krishnan 350.1. 13.10 ity [facility] 4.2.7.2.686 [place] [phone] [facility] [address] [employer] 2022-04-15 2022-04-15 Telephone CANDE Lopez 1.2.840.114 [id number] Univers 00:00:00 00:00:00 Juan Manuel S Y HEALTH 350.1.13.10 i ty [place] CL[place] [id number] [facility] [address] [employer] 2022-04-09 2022-04-09 Outpatient [id number] 00:00:00 00:00:00 Visit [id number]-d8f [id number] c27efa 2022-03-13 2022-03-13 Telephone CANDE Lopez 1.2.840.114 9 [id number] Univers 00:00:00 00:00:00 Juan Manuel S Y HEALTH 350.1.13.10 i ty [place] [id number] [place] [address] [employer] 2022-03-12 2022-03-12 Telephone CANDE Lopez 1.2.840.114 9 [id number] Univers 00:00:00 00:00:00 Juan Manuel S Y HEALTH 350.1.13.10 i ty [place] [id number] [place] 449869 Branch 2022-02-11 2022-02-11 Telephone HEYDI Lopez 1.2.840.114 9 [id number] Univers 00:00:00 00:00:00 Juan Manuel S Y HEALTH 350.1.13.10 i ty of [place] 288.2546991 [place] 449869 Branch 2022-02-03 2022-02-03 Orders Doctor MARICRUZ 1.2.840.114 [id number] Univers 00:00:00 00:00:00 Only Unassigned, YADY 350.1.13.10 ity of [place] [facility] 4.2.7.2.686 Lu[place] as 308.8475839 [facility] [address] 2022-01-27 2022-01-27 Spool Cleaner Hand [facility] UNIVERSIT 1.2.840.114 [id number] Univers 13:45:00 14:00:00 Visit Juan Manuel Lopez Y HEALTH 350.1.13.10 it[place] of [place] [id number] [facility] [address] 2022-01-27 2022-01-27 Office John CANDE 1.2.840.114 [id number] Univers 12:00:00 12:30:00 Visit Juan Manuel S Y HEALTH 350.1.13.10 i ty [place] 178.2596343 [facility] [address] 2022-01-27 2022-01-27 Outpatient R JOHN, JUAN MANUEL [facility] [id number] Univers 12:00:00 12:00:00 JUAN MANUEL LOPEZ ity [facility] 2022-01-23 2022-01-23 Telephone JohnCANDE rae 1.2.840.114 [id number] Univers 00:00:00 00:00:00 Juan Manuel S Y HEALTH 350.1.13.10 i ty [place] [id number] [facility] [address] [employer] 2022-01-20 2022-01-20 Outpatient R JUAN MANUEL LOPEZ [facility] [id number] Univers 15:30:00 15:30:00 JUAN MANUEL LOPEZ itluanne of [facility] 2022-01-16 2022-01-16 Orders Doctor ALCANTARA 1.2.840.114 [id number] Univers 00:00:00 00:00:00 Only Unassigned, YADY 350.1.13.10 ity of [place] [facility] 4.2.7.2.686 [place] [id number] [address] 2021-12-31 2021-12-31 Orders Doctor MARICRUZ 1.2.840.114 [id number] Univers 00:00:00 00:00:00 Only Unassigned, YADY 350.1.13.10 ity of [place] [facility] 4.2.7.2.686 [place] 137.1969651 [address] 2021-12-05 2021-12-05 Orders Doctor ALCANTARA 1.2.840.114 [id number] Univers 00:00:00 00:00:00 Only Unassigned, YADY 350.1.13.10 ity of [place] [facility] 4.2.7.2.686 [place] [id number] [address] 2021-11-26 2021-11-26 Orders Doctor ALCANTARA 1.2.840.114 [id number] Univers 00:00:00 00:00:00 Only Unassigned, YADY 350.1.13.10 ity of [place] [facility] 4.2.7.2.686 [place] [id number] [address] 2021-11-21 2021-11-21 Outpatient R ABEL [facility] [id number] Univers 10:10:00 11:02:13 PATRICK sanford [facility] 2021-11-21 2021-11-21 Office Abel [facility] 1.2.840.114 [id number] Univers 10:10:00 11:02:13 Visit Patrick ROJAS 350.1.13.10 it[place] C[place] C[place] AT [phone] Me dical [address] 2021-11-19 2021-11-19 Telephone JohnHEYDIDEEPA 1.2.840.114 9 [id number] Univers 00:00:00 00:00:00 Juan Manuel S Y HEALTH 350.1.13.10 i [place] [id number] [address] 2021-11-18 2021-11-18 Orders Doctor MARICRUZ 1.2.840.114 [id number] Univers 00:00:00 00:00:00 Only Unassigned, YADY 350.1.13.10 ity of [place] [facility] 4.2.7.2.686 [place] [id number] [address] 2021-11-08 2021-11-08 Orders Doctor ALCANTARA 1.2.840.114 [id number] Univers 00:00:00 00:00:00 Only Unassigned, YADY 350.1.13.10 ity of [place] [facility] 4.2.7.2.686 [place] [id number] [address] 2021-11-06 2021-11-06 Telephone Stefanie STOUT 1.2.840.114 [id number] Univers 00:00:00 00:00:00 phillip, PEDIATRIC 350.1.13.10 ity of [place] [id number] [facility] 198 [facility] 2021-10-30 2021-10-30 Telephone CANDE Lopez 1.2.840.114 [id number] Univers 00:00:00 00:00:00 Juan Manuel S Y HEALTH 350.1.13.10 i ty [place] [id number] [address] 2021-10-29 2021-10-29 Orders Doctor ALCANTARA 1.2.840.114 [id number] Univers 00:00:00 00:00:00 Only Unassigned, YADY 350.1.13.10 ity of [place] [facility] 4.2.7.2.686 [place] [id number] [address] 2021-10-27 2021-10-27 Outpatient R [facility] [id number] Univers 00:00:00 00:00:00 ity of [facility] 2021-10-27 2021-10-27 Outpatient R [facility] [id number] Univers 00:00:00 00:00:00 ity of [facility] 2021-10-17 2021-10-17 Orders Doctor MARICRUZ 1.2.840.114 [id number] Univers 00:00:00 00:00:00 Only Unassigned, YADY 350.1.13.10 [facility] 4.2.7.2.686 [place] [id number] [facility] [address] [employer] 2021-10-14 2021-10-14 Imm/Inj Vaccine, Gal [facility] UNIVERSIT 1.2.840 .114 [id number] Univers 16:20:00 16:30:00 Visit JohnJuan Manuel [facility] 350.1.13.10 ity of CL[place] [id number] [facility] [address] [employer] 2021-10-14 2021-10-14 Office John [facility] 1.2.840.114 [id number] Univers 14:30:00 15:00:00 Visit [facility] 350.1.13.10 i ty of CL[place] 462.7579404 [facility] [address] [employer] 2021-10-14 2021-10-14 Outpatient R LOREN LOPEZAS [facility] [id number] Univers 14:30:00 14:30:00 JUAN MANUEL LOPEZ luanne [facility] 2021-10-14 2021-10-14 Outpatient R [facility] [id number] Univers 14:30:00 14:30:00 JUAN MANUEL LOPEZ luanne [facility] 2021-10-14 2021-10-14 Outpatient R JOHN [facility] [id number] Univers 14:30:00 14:30:00 JUAN MANUEL LOPEZ luanne [facility] 2021-10-14 2021-10-14 Outpatient R JOHN, [facility] [id number] Univers 14:30:00 14:30:00 JUAN MANUEL LOPEZ [facility] 2021-10-01 2021-10-01 Outpatient R ABEL [facility] [id number] Univers 09:20:00 10:46:23 PATRICK sanford [facility] 2021-10-01 2021-10-01 Outpatient Arvin ROMAN [facility] [id number] Univers 09:20:00 10:46:23 PATRICK juvenal [facility] 2021-10-01 2021-10-01 Outpatient Arvin ROMAN [facility] [id number] Univers 09:20:00 10:46:23 PATRICK juvenal [facility] 2021-10-01 2021-10-01 Outpatient Arvin ROMAN [facility] [id number] Univers 09:20:00 10:46:23 PATRICK juvenal [facility] 2021-10-01 2021-10-01 [facility] 1.2.840.114 [id number] Univers 09:20:00 09:30:00 Visit Patrick KUO 350.1.13.10 it y of CARE 4.2.7.2.686 [place]acorta [place]CHELL [id number] [address] 2021-09-30 2021-09-30 Outpatient [facility] [id number] Univers 14:50:00 14:50:00 PATRICK juvenal [facility] 2021-09-30 2021-09-30 Outpatient Arvin [facility] [id number] Univers 14:50:00 14:50:00 PATRICK juvenal [facility] 2021-09-30 2021-09-30 [facility] [id number] Univers 14:50:00 14:50:00 PATRICK [facility] 2021-09-19 2021-09-19 Orders Doctor ALCANTARA 1.2.840.114 [id number] Univers 00:00:00 00:00:00 Only Unassigned, YADY 350.1.13.10 ity of [place] [facility] 4.2.7.2.686 [place] as [id number] [facility] [address] 2021-09-09 2021-09-09 Transition ABIGAIL Shay 1.2.840.114 [id number] Univers 00:00:00 00:00:00 of Sosa SIMMS 350.1.13.10 it y of [place] [id number] [facility] [address] 2021-09-01 2021-09-08 [facility] VeronicaNealy Grace [facility] 1.2.840. 114 [id number] Univers 15:07:00 19:35:00 Encounter Erum Nguyenshua [facility] 350.1.13.10 ity of Rickey Cumm[place] 4.2.7.2.686 [facility] [phone] [address] ([facility]) 2021-09-05 2021-09-05 Outpatient Arvin ROMAN [facility] [id number] Univers 10:00:00 10:00:00 PATRICK sanford [facility] 2021-09-05 2021-09-05 Outpatient Arvin ROMAN [facility] [id number] Univers 10:00:00 10:00:00 PATRICK [facility] 2021-09-02 2021-09-02 Telephone Stefanie 1.2.840.8 [id number] Univers 00:00:00 00:00:00 phillip 46197.1.1 ity of [place] 3.104.2.7 [place] .3.809535 [facility] .[address] [employer] 2021-09-01 2021-09-01 Nurse Unknown, Attending 1.2.840.1 [id number] Univers 14:45:00 15:07:29 Visit Rylie Villalta 30686.1.1 ity of Nurse, [facility] 3.104.2.7 [place] .3.317971 [facility] [facility] .[facility] [employer] 2021-09-01 2021-09-01 Outpatient [facility] [id number] Univers 14:45:00 15:07:29 RYLIE sanford [facility] 2021-09-01 2021-09-01 Urgent Unknown, Attending 1.2.840.1 [id number] Univers 14:00:00 14:15:00 Care Provider, [facility] 59024.1.1 ity of 3.104.2.7 [place] .3.756860 [facility]ica l .[facility] [employer] 2021-09-01 2021-09-01 Urgent Provider, [facility] 1.2.840.114 [id number] Univers 14:00:00 14:15:00 Care Unknown, Attending PATTY 350.1.13.10 ity of [facility] 4.2.7.2.686 [facility] [id number] [address] 2021-09-01 2021-09-01 Outpatient R UNKNOWN, [facility] MARGOT [id number] Univers 14:00:00 14:00:00 ATTENDING ity [facility] 2021-09-01 2021-09-01 Outpatient R UNKNOWN, [facility] [id number] Univers 14:00:00 14:00:00 ATTENDING ity of [facility] 2021-09-01 2021-09-01 Outpatient R UNKNOWN, [facility] [id number] Univers 14:00:00 14:00:00 ATTENDING ity [facility] 2021-09-01 2021-09-01 Outpatient R UNKNOWN, [facility] MARGOT [id number] Univers 14:00:00 14:00:00 ATTENDING ity [facility] 2021-09-01 2021-09-01 Telephone Abel, 1.2.840.3 [id number] Univers 00:00:00 00:00:00 Patrick W 70877.1.1 ity of 3.104.2.7 [place] .3.091453 [facility]ica l .[facility] [employer] 2021-09-01 2021-09-01 Telephone Abel, 1.2.840.2 [id number] Univers 00:00:00 00:00:00 Patrick W 05809.1.1 ity of 3.104.2.7 [place] .3.348719 Medica l .[facility] [employer] 2021-09-01 2021-09-01 Travel 1.2.840.1 1.2.129.171 [id number] Univers 00:00:00 00:00:00 57855.1.1 350.1.13.10 ity of 3.104.2.7 [place].3.698 [place] .3.433561 084.8 Medica l .[facility] [employer] 2021-08-29 2021-08-29 [facility]patient [facility] [id number] Univers 10:30:00 10:30:00 PATRICK elmorey [facility] 2021-08-27 2021-08-27 Telephone Abel, 1.2.840.6 [id number] Univers 00:00:00 00:00:00 Patrick Gay 99325.1.1 ity of 3.104.2.7 [place] .3.144569 Medica l .[facility] [employer] 2021-08-22 2021-08-22 Outpatient Arvin [facility] [id number] Univers 11:10:00 11:10:00 PATRICK deepay [facility] 2021-08-21 2021-08-21 Telephone Alhaji-Ku 1.2.840.3 [id number] Univers 00:00:00 00:00:00 jordyumon, 97014.1.1 ity of [place] 3.104.2.7 [place] .3.982029 Medica l .[address] [employer] 2021-08-21 2021-08-21 Telephone Abel, 1.2.840.3 [id number] Univers 00:00:00 00:00:00 Patrick Gay 01943.1.1 ity of 3.104.2.7 [place] .3.592994 Medica l .[facility] [employer] 2021-08-20 2021-08-20 Outpatient Arvin [facility] [id number] Univers 11:10:00 11:10:00 PATRICK deepay [facility] 2021-08-19 2021-08-19 Orders Doctor 1.2.840.3 [id number] Univers 00:00:00 00:00:00 Only Unassigned, 03520.1.1 ity of [place] 3.104.2.7 [place] .3.035147 Medica l .8 Branch 2021-08-19 2021-08-19 Refill Abel, 1.2.840.0 [id number] Univers 00:00:00 00:00:00 Patrick Gay 34000.1.1 ity of 3.104.2.7 [place] .3.726588 Medica l .8 Branch 2021-08-12 2021-08-12 Telephone John [facility] 1.2.840.114 [id number] Univers 00:00:00 00:00:00 Juan Manuel S HEALTH 350.1.13.10 i ty of CL[place] 4[place] 907.7524050 [facility] [address] 2021-08-12 2021-08-12 Telephone John 1.2.840.0 [id number] Univers 00:00:00 00:00:00 Juan Manuel Lopez 88965.1.1 ity of 3.104.2.7 [place] .3.574127 Medica l .8 Branch 2021-08-08 2021-08-08 Telephone Abel [facility] 1.2.840.114 [id number] Univers 00:00:00 00:00:00 Patrick Gay PRIMARY 350.1.13.10 it y of C[place] 4[place].7.2.[place] 589.1354749 [place] dical [address] 2021-08-08 2021-08-08 Telephone Roman, 1.2.840.6 [id number] Univers 00:00:00 00:00:00 Patrick Gay 39858.1.1 ity of 3.104.2.7 [place] .3.513186 Medica l .8 Branch 2021-07-30 2021-07-30 Orders Doctor ALCANTARA 1.2.840.114 [id number] Univers 00:00:00 00:00:00 Only Unassigned, YADY 350.1.13.10 ity of [place] [facility] 4.2.7.2.686 Luiz as 997.8134980 [facility] [address] 2021-07-30 2021-07-30 Orders Doctor 1.2.840.9 [id number] Univers 00:00:00 00:00:00 Only Unassigned, 26276.1.1 ity of [place] 3.104.2.7 [place] .3.374084 Medica l .[address] [employer] 2021-07-29 2021-07-29 [facility] 1.2.840.114 [id number] Univers 00:00:00 00:00:00 Patrick Gay PRIMARY 350.1.13.10 it y of C[place].2.[place] [facility] 389.2288850 [place] dical [address] [employer] 2021-07-29 2021-07-29 Telephone Roman, 1.2.840.1 [id number] Univers 00:00:00 00:00:00 Patrick Gay 28899.1.1 ity of 3.104.2.7 [place] .3.337079 Medica l .[address] [employer] 2021-07-24 2021-07-24 Telephone [facility] 1.2.840.114 [id number] Univers 00:00:00 00:00:00 Patrick Gay SPECIALTY 350.1.13.10 ity [place] AT 306.3762174 [place] dical VICTORY [address] [facility] 2021-07-24 2021-07-24 Telephone Roman, 1.2.840.8 [id number] Univers 00:00:00 00:00:00 Patrick Gay 40579.1.1 ity of 3.104.2.7 [place] .3.240159 Medica l .[address] [employer] 2021-07-22 2021-07-22 Orders Doctor MARICRUZ 1.2.840.114 [id number] Univers 00:00:00 00:00:00 Only Unassigned, YADY 350.1.13.10 ity of [place] [facility] 4.2.7.2.686 Luiz as 315.0470227 [facility] nancy [address] [employer] 2021-07-22 2021-07-22 Orders Doctor 1.2.840.5 [id number] Univers 00:00:00 00:00:00 Only Unassigned, 18052.1.1 ity of [place] 3.104.2.7 [place] .3.157308 Medica l .[address] [employer] 2021-07-18 2021-07-18 Outpatient R ABEL [facility] [id number] Univers 11:00:00 11:00:00 PATRICK sanford [facility] 2021-07-15 2021-07-15 [facility] 1.2.840.114 [id number] Univers 00:00:00 00:00:00 Patrick Gay PRIMARY 350.1.13.10 [place] [facility] [phone] [place] 198 [employer] 2021-07-15 2021-07-15 Telephone Abel, 1.2.840.9 [id number] Univers 00:00:00 00:00:00 Patrick Gay 06979.1.1 ity of 3.104.2.7 [place] .3.915343 Medica l .8 [employer] 2021-07-11 2021-07-11 [facility] 1.2.840.114 [id number] Univers 10:00:00 10:18:55 Visit Patrick Gay SPECIALTY 350.1.13.10 [place] [facility] [phone] [place] divina ENRIQUE [address] [place] [address] 2021-07-11 2021-07-11 Outpatient Arvin ROMAN [facility] [id number] Univers 10:00:00 10:18:55 PATRICK sanford [facility] 2021-07-11 2021-07-11 Outpatient Arvin ROMAN [facility] [id number] Univers 10:00:00 10:18:55 PATRICK sanford [facility] 2021-07-11 2021-07-11 Outpatient Arvin ROMAN [facility] [id number] Univers 10:00:00 10:18:55 PATRICK sanford [facility] 2021-07-11 2021-07-11 Outpatient R ABEL [facility] [id number] Univers 10:00:00 10:18:55 PATRICK sanford [facility] 2021-07-11 2021-07-11 Office Abel, 1.2.840.2 [id number] Univers 10:00:00 10:18:55 Visit Patrick Gay 85408.1.1 ity of 3.104.2.7 [place] .3.244193 Medica l .[employer] 2021-07-11 2021-07-11 Outpatient R ROMAN, [facility] [id number] Univers 10:00:00 10:18:55 PATRICK juvenal [facility] 2021-07-11 2021-07-11 [id number] Univers 10:00:00 10:00:00 PATRICK elmoreluanne [facility] 2021-07-11 2021-07-11 Outpatient R ROMAN, [facility] [id number] Univers 10:00:00 10:00:00 PATRICK sanford [facility] 2021-07-11 2021-07-11 [facility] 1.2.840.114 [id number] Univers 00:00:00 00:00:00 (Out) Patrick Gay SPECIALTY 350.1.13.10 ity of CARE 4.2.7.2.686 [facility] AT [phone] [place] div[place] ENRIQUE [address] [facility] 2021-07-11 2021-07-11 Lele Roman, 1.2.840.3 [id number] Univers 00:00:00 00:00:00 (Out) Patrick Gay 20514.1.1 ity of 3.104.2.7 [place] .3.158395 Medica l .8 [employer] 2021-07-11 2021-07-11 Travel 1.2.840.1 1.2.315.667 [id number] Univers 00:00:00 00:00:00 21057.1.1 350.1.13.10 ity of 3.104.2.[place].3.698 [place] .3.287513 084.8 Medica l .8 [employer] 2021-07-09 2021-07-09 Orders Doctor MARICRUZ 1.2.840.114 [id number] Univers 00:00:00 00:00:00 Only Unassigned, YADY 350.1.13.10 ity of [place] [facility] 4.2.7.2.686 Luiz as [id number] [facility] 009 [employer] 2021-07-09 2021-07-09 Orders Doctor 1.2.840.6 [id number] Univers 00:00:00 00:00:00 Only Unassigned, 70788.1.1 ity of [place] 3.104.2.7 [place] .3.213763 [facility]ica [facility] .[employer] 2021-06-27 2021-06-27 Telephone [facility] 1.2.840.114 [id number] Univers 00:00:00 00:00:00 Patrick Gay SPECIALTY 350.1.13.10 [place] [id number] [place] divina ENRIQUE [address] [place] [address] 2021-06-27 2021-06-27 Telephone [place], 1.2.840.6 [id number] Univers 00:00:00 00:00:00 Patrick Gay 07317.1.1 ity of 3.104.2.7 [place] .3.451789 [employer] [employer] 2021-06-25 2021-06-25 Orders Doctor MARICRUZ 1.2.840.114 [id number] Univers 00:00:00 00:00:00 Only Unassigned, YADY 350.1.13.10 ity of [place] [facility] 4.2.7.2.686 Luiz as [id number] [address] 2021-06-25 2021-06-25 Orders Doctor 1.2.840.5 [id number] Univers 00:00:00 00:00:00 Only Unassigned, 01192.1.1 ity of [place] 3.104.2.7 [place] .3.807574 [facility] .[employer] 2021-06-23 2021-06-23 Telephone [facility] 1.2.840.114 [id number] Univers 00:00:00 00:00:00 Patrick Gay PRIMARY 350.1.13.10 it y [place] [id number] [place] dical [address] 2021-06-23 2021-06-23 Telephone Abel, 1.2.840.8 [id number] Univers 00:00:00 00:00:00 Patrick Gay 53750.1.1 ity of 3.104.2.7 [place] .3.699390 Medica l .8 [place] 2021-06-11 2021-06-11 Transition ABIGAIL Shay 1.2.840.114 [id number] Univers 00:00:00 00:00:00 of Care Arlene B SIMMS 350.1.13.10 it [facility] [place] [phone] [facility] [address] 2021-06-11 2021-06-11 Transition Jaspal, 1.2.840.8 [id number] Univers 00:00:00 00:00:00 of Care Arlene Grace 34941.1.1 ity of 3.104.2.7 [place] .3.391448 [place] .[employer] 2021-06-07 2021-06-10 Inpatient X ABEL [facility] SOR [id number] Univers 02:00:00 19:40:00 PATRICK sanford of [facility] 2021-06-07 2021-06-10 [facility]Maricruz garay 1.2.840.11 [id number] Univers 02:00:00 19:40:00 Encounter Patrick Roman 350.1.13 .10 ity of [facility] 4.2.7.2.686 Luiz as [id number] [facility] [address] 2021-06-07 2021-06-10 Inpatient X ABEL [facility] SOR [id number] [id number] Univers 02:00:00 19:40:00 PATRICK sanford of [facility] 2021-06-07 2021-06-10 [facility]Maricruz garay 1.2.840.1 [id number] Univers 02:00:00 19:40:00 Encounter Patrick Roman 51431.1.1 ity of 3.104.2.7 [place] .3.235667 [place] .[employer] 2021-06-06 2021-06-07 Emergency X [facility] ERT [id number] Univers 18:42:00 00:43:00 REJI ity of [facility] 2021-06-06 2021-06-07 Emergency [facility] 1.2.972.912 [id number] Univers 18:42:00 00:43:00 Reji NO 350.1.13.10 i ty of [place] 4.2.7.2.686 [facility] [id number] [facility] 084 [employer] 2021-06-06 2021-06-07 Emergency X [facility] ERT [id number] Univers 18:42:00 00:43:00 REJI ity of [facility] 2021-06-06 2021-06-07 Emergency X [facility] ERT [id number] Univers 18:42:00 00:43:00 REJI ity of [facility] 2021-06-06 2021-06-07 Emergency [place], 1.2.840.1 [id number] Univers 18:42:00 00:43:00 Reji R 73406.1.1 ity of 3.104.2.7 [place] .3.872580 Medica l .[employer] 2021-06-06 2021-06-06 Nurse Aracely Keith 1.2.840.114 [id number] Univers 00:00:00 00:00:00 Triage YADY 350.1.13.10 it y of HOSPITAL 4.2.7.2.686 Luiz [id number] [facility] 019 [employer] 2021-06-06 2021-06-06 Telephone Abel [facility] 1.2.840.114 [id number] Univers 00:00:00 00:00:00 Patrick W SPECIALTY 350.1.13.10 ity of [facility] 4.2.7.2.686 [facility] AT [phone] Va remydariusz ENRIQUE [address] [facility] 2021-04-30 2021-04-30 Outpatient [facility] [id number] Univers 00:00:00 00:00:00 ity of [facility] 2021-04-30 2021-04-30 Outpatient R [facility] [id number] Univers 00:00:00 00:00:00 ity [facility] 2021-04-30 2021-04-30 Orders Doctor MARICRUZ 1.2.840.114 [id number] Univers 00:00:00 00:00:00 Only Unassigned, YADY 350.1.13.10 ity of [place] [facility] 4.2.7.2.686 Luiz as [id number] [address] 2021-04-18 2021-04-18 [facility] 1.2.840.114 [id number] Univers 10:43:36 23:59:00 Encounter Patrick Gay SPECIALTY 350.1.13.10 [place] [phone] [place] divina GENETLuanne 8[address] [facility] 2021-04-18 2021-04-18 [facility] [id number] Univers 11:00:00 11:11:29 [facility] 2021-04-18 2021-04-18 Outpatient [facility] 247 [id number] Univers 11:00:00 11:11:29 [facility]The [facility] [place] [facility] 2021-04-18 2021-04-18 Office [facility] 1.2.840.114 [id number] Univers 10:25:43 11:11:29 Visit Patrick Gay SPECIALTY 350.1.13.10 [place] [phone] Va remydariusz DE LEÓNLuanne [address] [facility] 2021-04-18 2021-04-18 Office [facility] 1.2.840.114 [id number] Univers 10:25:43 11:11:29 Visit Patrick Gay SPECIALTY 350.1.13.10 [place] [phone] [place] divina ENRIQUE [address] [facility] 2021-04-18 2021-04-18 [facility] [id number] Univers 11:00:00 11:00:00 PATRICK sanford [facility] 2021-04-14 2021-04-14 Office Kaitlin Ojeda UNIVERSIT 1.2.840.11 [id number] Univers 10:55:48 11:55:48 Visit Michell Lr Y HEALTH 350.1.13.10 ity of CL[place]ICS 4.2.[place] [phone] [place] [id number] [employer] 2021-04-14 2021-04-14 Office Yaquelin Ojedarodrigo UNIVERSIT 1.2.840.11 [id number] Univers 10:55:48 11:55:48 Visit Adeline Michell Y HEALTH 350.1.13.10 it[place] CL[place] [id number] [address] 2021-04-14 2021-04-14 Outpatient [facility] [id number] Univers 11:00:00 11:00:00 [facility] 2021-04-14 2021-04-14 Outpatient [facility] [id number] Univers 11:00:00 11:00:00 MICHELL ity [facility] 2021-04-14 2021-04-14 Outpatient [facility] [id number] Univers 11:00:00 11:00:00 [facility] 2021-04-14 2021-04-14 Outpatient [facility] [id number] Univers 11:00:00 11:00:00 [facility] 2021-03-21 2021-03-21 [facility] 1.2.840.114 [id number] Univers 00:00:00 00:00:00 Patrick W PRIMARY 350.1.13.10 it [place] [phone] [address] 2021-03-14 2021-03-14 Outpatient Arvin ROMAN [facility] [id number] Univers 10:10:00 12:37:09 [facility]The [facility] [place] [facility] 2021-03-14 2021-03-14 Outpatient Arvin [facility] [id number] Univers 10:10:00 12:37:09 PATRICK sanford [facility] 2021-03-14 2021-03-14 [facility] 1.2.840.114 [id number] Univers 09:39:49 12:37:09 Visit Patrick Victor Hugo SPECIALTY 350.1.13.10 it[place] 4[place] [phone] [place] divina ENRIQUE [address] [place] [address] 2021-03-14 2021-03-14 [facility] [id number] Univers 10:10:00 10:10:00 PATRICK sanford [facility] 2021-03-12 2021-03-12 Orders Doctor MARICRUZ 1.2.840.114 [id number] Univers 00:00:00 00:00:00 Only Unassigned, YADY 350.1.13.10 ity of [place] [facility] 4.2.7.2.686 Luiz as [phone] [address] 2021-03-07 2021-03-07 Telephone [facility] 1.2.840.114 [id number] Univers 00:00:00 00:00:00 Patrick Gay PRIMARY 350.1.13.10 it [place] 4[place] [id number] [place] divina [address] [employer] 2021-03-07 2021-03-07 [facility] 1.2.840.114 [id number] Univers 00:00:00 00:00:00 Patrick Gay PRIMARY 350.1.13.10 [place] 4[place] [id number] [place] divina [address] [employer] 2021-03-03 2021-03-03 [facility] 1.2.840.114 [id number] Univers 00:00:00 00:00:00 Patrick Gay PRIMARY 350.1.13.10 it [place] 4[place] [id number] [place] divina [address] [employer] 2021-03-03 2021-03-03 Telephone [facility] 1.2.840.114 [id number] Univers 00:00:00 00:00:00 Patrick Gay PRIMARY 350.1.13.10 it y [place]2.[place]2.[place] [phone] [place] divina [address] [place] [address] 2021-02-28 2021-02-28 Outpatient R ABEL [facility] [id number] Univers 10:00:00 10:58:09 PATRICK elmoreluanne [facility] 2021-02-28 2021-02-28 Outpatient R ABEL [facility] [id number] Univers 10:00:00 10:58:09 PATRICK sanford [facility] 2021-02-28 2021-02-28 [facility] 1.2.840.114 [id number] Univers 09:42:30 10:58:09 Visit Patrick Gay SPECIALTY 350.1.13.10 it[place].2.7.[place] [id number] [place] divina [address] 2021-02-28 2021-02-28 [facility] 1.2.840.114 [id number] Univers 09:42:30 10:58:09 Visit Patrick Gay SPECIALTY 350.1.13.10 it[place] 4.2[place]2.[place] [phone] Va divina ENRIQUE [address] [place] [address] 2021-02-28 2021-02-28 [facility] [id number] Univers 10:00:00 10:00:00 PATRICK elmoreluanne [facility] 2021-02-26 2021-02-26 Orders Doctor MARICRUZ 1.2.840.114 [id number] Univers 00:00:00 00:00:00 Only Unassigned, YADY 350.1.13.10 ity of [place] [facility] 4.2.7.2.686 Luiz as [id number] [address] 2021-02-25 2021-02-25 [facility]phone [facility] 1.2.840.114 [id number] Univers 00:00:00 00:00:00 Patrick Gay SPECIALTY 350.1.13.10 [place] [phone] Va divina Lieberman [facility] 2021-02-19 2021-02-19 Outpatient R NITO [facility] [id number] Univers 10:40:00 11:37:15 JOHN ity [facility] 2021-02-19 2021-02-19 Outpatient R NITO [facility] [id number] Univers 10:40:00 11:37:15 JOHN ity [facility] 2021-02-19 2021-02-19 [facility] 1.2.840.114 [id number] Univers 10:17:05 11:37:15 Visit John SPECIALTY 350.1.13.10 [place]2.[place] [id number] Va divina Lieberman [facility] 2021-02-19 2021-02-19 Outpatient R NITO [facility] [id number] Univers 10:40:00 10:40:00 JOHN ity [facility] 2021-02-14 2021-02-14 Telephone Abel [facility] 1.2.840.114 [id number] Univers 00:00:00 00:00:00 Patrick KUO 350.1.13.10 it y of CARE 4.2.7.2.686 [facility] [place] [phone] [place] divina Lieberman [employer] 2021-02-13 2021-02-13 Outpatient [facility] [id number] Univers 00:00:00 00:00:00 ity of [facility] 2021-02-13 2021-02-13 Outpatient R [facility] [id number] Univers 00:00:00 00:00:00 ity of [facility] 2021-02-13 2021-02-13 Outpatient R [facility] [id number] Univers 00:00:00 00:00:00 ity of [facility] 2021-02-13 2021-02-13 Orders Doctor AL[place] 1.2.840.114 [id number] Univers 00:00:00 00:00:00 Only Unassigned, YADY 350.1.13.10 ity of [place] [facility] 4.2.7.2.686 Luiz as [id number] [address] 2021-02-12 2021-02-12 [facility] 1.2.840.114 [id number] Univers 00:00:00 00:00:00 Patrick W PRIMARY 350.1.13.10 [place] 4[place] [id number] [place] divina [address] [place] [address] 2021-02-07 2021-02-07 Outpatient R ABEL [facility] [id number] Univers 09:40:00 10:53:25 PATRICK sanford [facility] 2021-02-07 2021-02-07 Outpatient Arvin ROMAN [facility] [id number] Univers 09:40:00 10:53:25 PATRICK sanford [facility] 2021-02-07 2021-02-07 Office [facility] 1.2.840.114 [id number] Univers 09:00:22 10:53:25 Visit Patrick Gay SPECIALTY 350.1.13.10 it[place]2.[place] [phone] Va remydariusz DE LEÓNLuanne [address] [place] [address] 2021-02-07 2021-02-07 Outpatient Arvin ROMAN [facility] [id number] Univers 09:40:00 09:40:00 PATRICK sanford [facility] 2021-02-04 2021-02-04 [facility]phone [facility] 1.2.840.114 [id number] Univers 00:00:00 00:00:00 Patrick Gay PRIMARY 350.1.13.10 it y [place] 4[place] [phone] [place] divina [address] [place] [address] 2021-01-31 2021-01-31 Telephone [facility] 1.2.840.114 [id number] Univers 00:00:00 00:00:00 Patrick Gay SPECIALTY 350.1.13.10 it[place] 4[place]2.[place] [phone] Va remydariusz ENRIQUE [address] [place] [address] 2021-01-30 2021-01-30 Outpatient Arvin BEAUCHAMP [facility] [id number] Univers 14:20:00 [facility]52:[facility] 2021-01-30 Outpatient Arvin BEAUCHAMP [facility] [id number] Univers 14:20:00 15:52:41 [facility] 2021-01-30 2021-01-30 Office [facility] 1.2.840.114 [id number] Univers 14:18:27 15:52:41 Visit [facility] SPECIALTY 350.1.13.10 ity of CARE 4.2.7.2.686 [facility] AT [phone] [address] 2021-01-30 2021-01-30 Outpatient Arvin BEAUCHAMP [facility] [id number] Univers 14:20:00 14:20:00 [facility] 2021-01-29 2021-01-29 Outpatient Arvin BEAUCHAMP [facility] [id number] Univers 15:00:00 15:00:00 [facility] 2021-01-29 2021-01-29 Outpatient Arvin BEAUCHAMP [facility] [id number] Univers 15:00:00 15:00:00 [facility] 2021-01-29 2021-01-29 Outpatient Arvin BEAUCHAMP [facility] [id number] Univers 15:00:00 15:00:00 [facility] 2021-01-22 2021-01-22 Outpatient Arvin ROMAN [facility] [id number] Univers 09:00:00 09:00:00 PATRICK [facility] 2021-01-22 2021-01-22 Outpatient Arvin ROMAN [facility] [id number] Univers 09:00:00 09:00:00 PATRICK [facility] 2021-01-22 2021-01-22 Outpatient Arvin ROMAN [facility] [id number] Univers 09:00:00 09:00:00 PATRICK [facility] 2021-01-21 2021-01-21 [facility] 1.2.840.114 [id number] Univers 16:46:18 23:59:00 Encounter Patrick Gay PRIMARY 350.1.13.10 it[place] [id number] [place] dical [address] [employer] 2021-01-21 2021-01-21 Outpatient R ABEL [facility] [id number] Univers 16:46:18 23:59:00 PATRICK juvenal [facility] 2021-01-21 2021-01-21 Outpatient Arvin ROMAN [facility] [id number] Univers 16:46:18 23:59:00 [facility]The [facility] [place] [facility] 2021-01-21 2021-01-21 Office [facility] 1.2.840.114 [id number] Univers 16:34:10 16:44:10 Visit Patrick Gay PRIMARY 350.1.13.10 it y [place] 4[place].2.[place] [id number] [place] dical [address] [employer] 2021-01-21 2021-01-21 Outpatient Arvin ROMAN [facility] [id number] Univers 16:20:00 16:20:00 PATRICK juvenal [facility] 2021-01-21 2021-01-21 Outpatient Arvin ROMAN [facility] [id number] Univers 16:10:00 16:10:00 PATRICK juvenal [facility] 2021-01-21 2021-01-21 Outpatient Arvin ROMAN [facility] [id number] Univers 16:10:00 16:10:00 PATRICK juvenal [facility] 2021-01-21 2021-01-21 Outpatient Arvin ROMAN [facility] [id number] Univers 16:10:00 16:10:00 PATRICK juvenal [facility] 2021-01-17 2021-01-17 Outpatient Arvin ROMAN [facility] [id number] Univers 11:00:00 11:00:00 PATRICK juvenal [facility] 2021-01-17 2021-01-17 Outpatient Arvin ROMAN [facility] [id number] Univers 11:00:00 11:00:00 PATRICK sanford [facility] 2021-01-17 2021-01-17 Outpatient Arvin ROMAN [facility] [id number] Univers 11:00:00 11:00:00 PATRICK [facility] 2021-01-17 2021-01-17 Orders Doctor MARICRUZ 1.2.840.114 [id number] Univers 00:00:00 00:00:00 Only Unassigned, YADY 350.1.13.10 ity of [place] [facility] 4.2.7.2.686 Luiz as [id number] [address] 2021-01-16 2021-01-16 Outpatient rAvin [facility] [id number] Univers 14:00:00 14:00:00 [facility] 2021-01-16 2021-01-16 Outpatient Arvin BEAUCHAMP [facility] [id number] Univers 14:00:00 14:00:00 [facility] 2021-01-16 2021-01-16 Outpatient Ar[facility] [id number] Univers 14:00:00 14:00:00 [facility] 2021-01-15 2021-01-15 Telephone [facility] 1.2.840.114 [id number] Univers 00:00:00 00:00:00 Patrick Gay PRIMARY 350.1.13.10 [place] [id number] [address] 2021-01-15 2021-01-15 Orders Doctor [place] 1.2.840.114 [id number] Univers 00:00:00 00:00:00 Only Unassigned, YADY 350.1.13.10 ity of [place] [facility] 4.2.7.2.686 Luiz as [id number] [address] 2021-01-14 2021-01-14 [facility]ill [facility] 1.2.840.114 [id number] Univers 00:00:00 00:00:00 Patrick W PRIMARY 350.1.13.10 it y [place]2.[place].2.[place] [id number] [place] dicri [address] [employer] 2021-01-13 2021-01-13 Telephone [facility] 1.2.840.114 [id number] Univers 00:00:00 00:00:00 Patrick Gay PRIMARY 350.1.13.10 it y of [place] 4[place]2.[place].2.[place] [id number] [place] divina [address] 2021-01-13 2021-01-13 Telephone [facility] 1.2.840.114 [id number] Univers 00:00:00 00:00:00 Patrick W PRIMARY 350.1.13.10 it y [place]2.[place] [id number] [address] 2021-01-07 2021-01-07 Outpatient Arvin BEAUCHAMP [facility] [id number] Univers 11:40:00 11:40:00 JOHN ity of [facility] 2021-01-06 2021-01-06 Transition Abigail Shay 1.2.840.114 [id number] Univers 00:00:00 00:00:00 of Care Arlene Simms 350.1.13.10 it y of [place].7.2.[place] [id number] [facility] [address] 2021-01-06 2021-01-06 Telephone [facility] 1.2.840.114 [id number] Univers 00:00:00 00:00:00 Patrick Gay SPECIALTY 350.1.13.10 it[place] [id number] [facility] [address] [facility] 2020-12-30 2021-01-04 Hospital Lanie Roman 1.2.840.114 [id number] Univers 05:42:00 15:09:00 Encounter Patrick Conteh 350.1.13.10 ity of Hospital 4.2.7.2.686 Lu[place] as [id number] [facility] [address] 2020-12-30 2020-12-30 Surgery Abel Lanie 1.2.840.114 [id number] Univers 07:20:00 15:45:00 Patrick Conteh 350.1.13.10 it y of Hospital 4.2.7.2.686 Lu[place] as [id number] [facility] [address] 2020-12-30 2020-12-30 Anesthesia Noal Begum 1.2.840.114 [id number] Univers 07:41:00 15:04:00 Event Herb Langford 350.1.13.10 ity of [facility] 4.2.7.2.686 Lu[place] as [id number] [facility] [address] [employer] 2020-12-18 2020-12-18 Outpatient R ABEL [facility] [id number] Univers 13:15:00 13:18:41 PATRICK sanford [facility] 2020-12-18 2020-12-18 Outpatient [facility] [id number] Univers 13:15:00 13:18:41 PATRICK sanford [facility] 2020-12-18 2020-12-18 Spool Cleaner Hand Pcp-Lab [facility] 1.2.840.114 [id number] Univers 13:03:15 13:18:41 Visit Patrick Roman PRIMARY 350.1.13.1 0 it[place] [id number] [place] dical [address] [employer] 2020-12-18 2020-12-18 Office [facility] 1.2.840.114 [id number] Univers 11:30:12 11:40:12 Visit Patrick Gay PRIMARY 350.1.13.10 it y of [place] 4[place]2.7.2.[place] [id number] [place] d[place] [address] 2020-12-18 2020-12-18 Outpatient R ABEL [facility] [id number] Univers 11:30:00 11:30:00 PATRICK sanford [facility] 2020-12-12 2020-12-[address] [facility] 1.2.840.114 [id number] Univers 11:23:01 23:59:00 Encounter Maricruz PRIMARY 350.1.13.10 ity of [place].2.[place] [id number] [place] dical [address] 2020-12-12 2020-12-12 Outpatient Arvin SULLIVAN [facility] [id number] Univers 11:20:00 15:16:29 MARICRUZ sanford [facility] 2020-12-12 2020-12-12 Outpatient Arvin SULLIVAN [facility] [id number] Univers 11:20:00 15:16:29 MARICRUZ sanford [facility] 2020-12-12 2020-12-12 Office [facility] 1.2.378.919 [id number] Univers 11:19:26 15:16:29 Visit Maricruz KUO 350.1.13.10 it y of C[place]2.[place] [id number] [place] dical [address] [employer] 2020-12-12 2020-12-12 Outpatient Arvin LAURIE [facility] [id number] Univers 11:20:00 11:20:00 MARICRUZ sanford [facility] 2020-11-21 2020-11-21 Outpatient [facility] [id number] Univers 11:00:00 11:00:00 MARICRUZ sanford [facility] 2020-11-18 2020-11-18 Abstract Nito [facility] 1.2.840.114 [id number] Univers 00:00:00 00:00:00 Rosetta PRIMARY 350.1.13.10 it y of [place] C[place] [id number] [place] dical [address] [employer] 2020-11-13 2020-11-13 Outpatient Arvni AYALA [facility] [id number] Univers 13:00:00 13:00:00 PRAVEEN elmoreluanne [facility] 2020-11-04 2020-11-04 Ancillary Nette Reece [facility] 1.2.840. 114 [id number] Univers 13:16:24 13:51:03 Visit Praveen Ayala 350.1.13.10 it[phone] [address] [facility] 2020-11-04 2020-11-04 Outpatient Arvin AYALA [facility] [id number] Univers 13:00:00 13:51:03 PRAVEEN ity of [facility] 2020-11-04 2020-11-04 Outpatient R JAMIE [facility] [id number] Univers 13:00:00 13:51:03 PRAVEEN ity [facility] 2020-10-30 2020-10-30 Ancillary Terri Sheikh [facility] 1.2.840 .114 [id number] Univers 13:47:39 14:27:39 Visit Praveen Ayala [id number] [phone] [place] [facility] 2020-10-28 2020-10-28 Ancillary Patrice Sheikh [facility] 1.2.840. 114 [id number] Univers 13:10:28 13:48:58 Visit Praveen Ayala [id number] [phone] [place] [facility] 2020-10-21 2020-10-21 Ancillary Patrice Sheikh [facility] 1.2.840. 114 [id number] Univers 14:57:12 15:56:42 Visit Praveen Ayala [id number] [id number] [phone] [place] [facility] 2020-10-18 2020-10-18 Ancillary Terri Sheikh [facility] 1.2.840 .114 [id number] Univers 13:02:31 13:40:50 Visit Praveen Ayala [id number] [id number] [phone] [place] [facility] 2020-10-16 2020-10-16 Ancillary Terri Sheikh [facility] 1.2.840 .114 [id number] Univers 13:09:14 14:27:08 Visit Praveen Ayala [id number] [id number] [phone] [place] [facility] 2020-10-11 2020-10-11 [facility] [id number] Univers 11:20:00 11:20:00 PRAVEEN sanford [facility] 2020-10-09 2020-10-09 Hospital [facility] 1.2.840.114 [id number] Univers 12:32:47 23:59:00 Encounter Praveen Ac [place] [id number] ity of [place] [id number] [facility] [phone] [facility] [address] [employer] 2020-10-09 2020-10-09 [facility] [id number] Univers 15:00:00 15:00:00 PRAVEEN sanford [facility] 2020-10-09 2020-10-09 [facility] [id number] Univers 15:00:00 13:35:59 [facility]ENDELMAR [facility] [facility] [facility] 2020-10-09 2020-10-09 [facility] [id number] Univers 15:00:00 13:35:59 [facility] 2020-10-09 2020-10-09 Office [facility] 1.2.279.443 [id number] Univers 13:08:14 13:35:59 Visit Praveen Trinh 350.1.13.10 it y of Surgical 4.2.7.2.686 [place] Specialti [phone] [place] dical es 198 [facility] 2020-10-09 2020-10-09 Telephone [facility] 1.2.840.114 [id number] Univers 00:00:00 00:00:00 Praveen Trinh 350.1.13.10 it y of Surgical 4.2.7.2.686 [place] Specialti [phone] Va dical es 198 [facility] 2020-10-09 2020-10-09 Orders Doctor MARICRUZ 1.2.840.114 [id number] Univers 00:00:00 00:00:00 Only Unassigned, YADY 350.1.13.10 ity of [place] [facility] 4.2.7.2.686 Luiz as [phone] [address] 2020-10-08 2020-10-08 Outpatient R SUDHA [facility] [id number] Univers 16:00:00 16:00:00 LUIS itluanne [facility] 2020-10-04 2020-10-04 Outpatient R SERENA [facility] [id number] Univers 14:10:00 14:10:00 GENOVEVA ity [facility] 2020-10-03 2020-10-03 Outpatient R SERENA [facility] [id number] Univers 13:00:00 13:00:00 GENOVEVA ity [facility] 2020-10-03 2020-10-03 Outpatient R SERENA [facility] [id number] Univers 13:00:00 12:49:49 GENOVEVA [facility] 2020-10-03 2020-10-03 Outpatient R SERENA, [facility] [id number] Univers 13:00:00 12:49:49 GENOVEVA [facility] 2020-10-02 2020-10-02 Ancillary Patrice Sheikh [facility] 1.2.840. 114 [id number] Univers 15:50:04 16:22:16 Visit Praveen Ayala 350.1.13.10 ity [facility] [place] [phone] [address] 2020-10-02 2020-10-02 Outpatient Arvin JAMIE [facility] [id number] Univers 15:40:00 16:22:16 PRAVEEN sanford [facility] 2020-10-02 2020-10-02 Outpatient R JAMIE [facility] [id number] Univers 15:40:00 16:22:16 PRAVEEN [facility] 2020-09-30 2020-09-30 Ancillary Dinorah Magana [facility] 1 .2.840.114 [id number] Univers 13:56:58 14:38:16 Visit Praveen Ayala 350.1.13.10 ity [facility] [place] [phone] [place] dical nal 179 [facility] 2020-09-26 2020-09-26 Ancillary Nette Reece [facility] 1.2.840. 114 [id number] Univers 13:06:01 14:07:27 Visit Praveen Ayala 350.1.13.10 ity of [place] [phone] Va dical nal 179 [facility] 2020-09-24 2020-09-24 Ancillary Nette Reece [facility] 1.2.840. 114 [id number] Univers 15:23:16 16:43:28 Visit Praveen Ayala 350.1.13.10 ity of [place] [phone] Va dical nal 179 [facility] 2020-09-19 2020-09-19 Ancillary Dinorah Magana [facility] 1 .2.840.114 [id number] Univers 13:50:00 15:15:27 Visit Praveen Ayala 350.1.13.10 ity of [place] [phone] Va dical nal 179 [facility] 2020-09-13 2020-09-13 Outpatient Arvin SERENA [facility] [id number] Univers 13:40:00 13:40:00 GENOVEVA y [facility] 2020-09-13 2020-09-13 Outpatient R SERENA [facility] [id number] Univers 13:40:00 13:40:00 GENOVEVA ity [facility] 2020-09-13 2020-09-13 Outpatient R SERENA [facility] [id number] Univers 13:40:00 13:40:00 GENOVEVA y [facility] 2020-09-10 2020-09-10 Ancillary Dinorah Magana [facility] 1 .2.840.114 [id number] Univers 13:53:23 14:41:35 Visit Praveen Ayala Yashira Eric 350.1.13.10 ity of [place] [phone] Va dical nal 179 [facility] 2020-09-10 2020-09-10 Outpatient Arvin AYALA [facility] [id number] Univers 14:00:00 14:00:00 PRAVEEN ity [facility] 2020-08-22 2020-08-[address] [facility] 1.2.840.114 [id number] Univers 16:01:22 23:59:00 Encounter Maricruz KUO 350.1.13.10 ity of [place].2.[place] [phone] Va dical [address] [employer] 2020-08-22 2020-08-22 Outpatient [facility] [id number] Univers 15:20:00 16:52:39 MARICRUZ sanford [facility] 2020-08-22 2020-08-22 [facility] 1.2.413.285 [id number] Univers 15:16:54 16:52:39 Visit Maricruz KUO 350.1.13.10 it y of [place] [phone] Va dical [address] [employer] 2020-08-22 2020-08-22 Outpatient Arvin [facility] [id number] Univers 15:20:00 15:20:00 MARICRUZ sanford [facility] 2020-08-20 2020-08-20 Orders Doctor MARICRUZ Napier.2.840.114 [id number] Univers 00:00:00 00:00:00 Only UnassignedYADY 350.1.13.10 ity of [place] [facility] 4.2.7.2.686 Luiz as [phone] [facility] [address] [employer] 2020-08-15 2020-08-15 Outpatient Arvin [facility] [id number] Univers 13:40:00 13:40:00 MARICRUZ sanford [facility] 2020-08-07 2020-08-07 Orders Doctor MARICRUZ Napier.2.840.114 [id number] Univers 00:00:00 00:00:00 Only UnassignedYADY 350.1.13.10 ity of [place] [facility] 4.2.7.2.686 [place] as [phone] [facility] [address] 2020-07-31 2020-07-31 Telemedici Stefanie Vasquezin 1.2.840.114 [id number] Univers 13:08:16 16:10:57 ne Visit phillip, Pediatric 350.1.13.10 ity [place] and [place] [phone] [facility] Primary [address] [facility] 2020-07-31 2020-07-31 Outpatient R STEFANIE [facility] [id number] Univers 13:00:00 13:00:00 PHILLIP, ity of [place] [facility] 2020-07-26 2020-07-26 Orders Doctor MARICRUZ 1.2.840.114 [id number] Univers 00:00:00 00:00:00 Only Unassigned, YADY 350.1.13.10 ity of [place] [facility] 4.2.7.2.686 Luiz as [phone] [facility] [address] 2020-07-25 2020-07-25 Telephone [facility] 1.2.840.114 [id number] Univers 00:00:00 00:00:00 Maricruz KUO 350.1.13.10 it y of C[place] 4[place].2.[place] [id number] Va dical [address] 2020-07-25 2020-07-25 Orders Doctor MARICRUZ 1.2.840.114 [id number] Univers 00:00:00 00:00:00 Only Unassigned, YADY 350.1.13.10 ity of [place] [facility] 4.2.7.2.686 Lu[place] as [phone] [facility] [address] 2020-07-24 2020-07-[address] [facility] 1.2.840.114 [id number] Univers 15:30:00 23:59:00 Encounter Maricruz No 350.1.13.10 ity of [place].2.[place] [phone] [facility] [address] 2020-07-24 2020-07-24 Outpatient [facility] [id number] Univers 00:00:00 00:00:00 MARICRUZ sanford [facility] 2020-07-22 2020-07-22 Outpatient R STEFANIE [facility] [id number] Univers 15:09:20 23:59:00 deepa FISHERy of [facility] 2020-07-22 2020-07-22 [facility] 1.2.840.114 [id number] Univers 15:00:00 23:59:00 Encounter Eric fisher 350.1.13.10 ity of [facility] [place]2.7.2.[place] [phone] [facility] [address] 2020-07-18 2020-07-[address] [facility] 1.2.840.114 [id number] Univers 14:08:26 23:59:00 Encounter Maricruz PRIMARY 350.1.13.10 it[place] of [place].2.[place] [phone] Va dical [address] [employer] 2020-07-18 2020-07-18 Office [facility] 1.2.568.600 [id number] Univers 13:57:00 15:05:08 Visit Maricruz PRIMARY 350.1.13.10 it y of [place].2.[place] [id number] Va dical [address] 2020-07-18 2020-07-18 Outpatient R LAURIEFORMERLY [facility] [id number] Univers 13:40:00 13:40:00 MARICRUZ sanford [facility] 2020-07-11 2020-07-11 Outpatient R LAURIEFORMERLY [facility] [id number] Univers 13:10:00 13:10:00 MARICRUZ sanford [facility] 2020-06-26 2020-06-26 [facility] 1.2.840.114 [id number] Univers 12:49:11 14:01:35 Visit jordypramod Pediatric 350.1.13.10 ity of [facility] s and [place]2.[place].2.[place] [id number] [facility] Primary [address] [facility] 2020-06-26 2020-06-26 Outpatient R ALHAJI-DENYS [facility] [id number] Univers 13:00:00 13:00:00 deepa FISHERy of [place] [facility] 2020-06-26 2020-06-26 [facility] 1.2.694.780 [id number] Univers 00:00:00 00:00:00 Management Maricruz PRIMARY 350.1.13.10 ity of [place].2.[place] [phone] Va dical [address] [employer] 2020-06-21 2020-06-21 Telephone [facility] 1.2.840.114 [id number] Univers 00:00:00 00:00:00 Maricruz PRIMARY 350.1.13.10 it y of [place] [phone] Va dical [address] [employer] 2020-05-30 2020-05-[address] [facility] 1.2.840.114 [id number] Univers 10:09:07 23:59:00 Encounter Maricruz PRIMARY 350.1.13.10 ity of C[place].2.[place] [phone] Va dical [address] [employer] 2020-05-30 2020-05-30 Imm/Inj Nurse, Pcp Gen Med Patel Team [facility] B 1.2.840.114 [id number] Univers 12:29:12 12:44:12 Visit Michelle Alexandra PRIMARY 350.1.13.10 ity of C[place].2.[place] [phone] Me dical [address] [employer] 2020-05-30 2020-05-30 Office [facility] 1.2.135.803 [id number] Univers 10:04:32 12:22:15 Visit Maricruz PRIMARY 350.1.13.10 it y of CARE [place].2.[place] [phone] Va dical [address] [employer] 2020-05-30 2020-05-30 Outpatient R [facility] [id number] Univers 10:40:00 10:40:00 MARICRUZ ity of [facility] 2020-05-29 2020-05-29 [facility] 1.2.840.114 [id number] Univers 00:00:00 00:00:00 Geovanny PRIMARY 350.1.13.10 it y of [place] CARE [place]2.7.2.[place] [phone] Va dical [address] [employer] 2020-05-16 2020-05-16 Orders Doctor MARICRUZ 1.2.840.114 [id number] Univers 00:00:00 00:00:00 Only Unassigned, YADY 350.1.13.10 ity of [place] [facility] 4.2.7.2.686 Luiz as [phone] [address] 2020-05-02 2020-05-[address] [facility] 1.2.840.114 [id number] Univers 10:34:10 23:59:00 Encounter Maricruz PRIMARY 350.1.13.10 ity of C[place].2.[place] [phone] Va dical [address] [employer] 2020-05-02 2020-05-02 Office [facility] 1.2.846.423 [id number] 8495 Univers 10:29:28 12:45:31 Visit Maricruz PRIMARY 350.1.13.10 it y of C[place].2.[place] [phone] [facility] [address] [employer] 2020-05-02 2020-05-02 Outpatient R [facility] [id number] Univers 10:00:00 10:00:00 MARICRUZ ity [facility] 2020-04-30 2020-04-30 [facility] 1.2.840.114 [id number] Univers 00:00:00 00:00:00 Geovanny PRIMARY 350.1.13.10 it y of [place] CARE [place]2.[place].2.[place] [phone] Va dical [address] [employer] 2020-04-18 2020-04-18 Telephone [facility] 1.2.840.114 [id number] Univers 00:00:00 00:00:00 Maricruz PRIMARY 350.1.13.10 it y of CARE [place].2.[place] [phone] Va dical [address] 2020-04-06 2020-04-16 [facility] Lanie Sullivan 1.2.840.114 [id number] 20:29:00 17:40:00 Encounter Maricruz Yady 350.1.13.10 Hospital 4.2.7.2.686 [id number] [facility] 2020-04-06 2020-04-16 [facility] Lanie Sullivan 1.2.840.114 [id number] Univers 20:29:00 17:40:00 Encounter Maricruz Conteh 350.1.13.10 ity of Hospital 4.2.7.2.686 [place] as [phone] [facility] [address] [employer] 2020-04-06 2020-04-06 Emergency [facility] 1.2.840.114 [id number] 16:27:00 19:20:00 Aly No 350.1.13.10 [place] 4.2.7.2.686 [place] [phone] [facility] 2020-04-06 2020-04-06 Emergency [facility] 1.2.840.114 [id number] [facility] 16:27:00 19:20:00 Aly No 350.1.13.10 i ty of [place].2.[place] [phone] [facility] [address] [employer] 2020-01-04 2020-01-04 Orders Doctor ALCANTARA 1.2.840.114 [id number] 00:00:00 00:00:00 Only Unassigned, YADY 350.1.13.10 [place] [facility] 4.2.7.2.686 [id number] 009 2020-01-04 2020-01-04 Orders Doctor ALCANTARA 1.2.840.114 [id number] Univers 00:00:00 00:00:00 Only Unassigned, YADY 350.1.13.10 ity of [place] [facility] 4.2.7.2.686 Luiz as [id number] [facility] [address] [employer] 2019-12-12 2019-12-12 Outpatient Arvin HALEY [facility] [id number] Univers 13:45:43 23:59:00 LUIS ity of [facility] 2019-12-06 2019-12-06 Orders Doctor MARICRUZ 1.2.840.114 [id number] 00:00:00 00:00:00 Only Unassigned, YADY 350.1.13.10 [place] [facility] 4.2.7.2.686 [id number] 009 2019-12-06 2019-12-06 Orders Doctor MARICRUZ 1.2.840.114 [id number] Univers 00:00:00 00:00:00 Only Unassigned, YADY 350.1.13.10 ity of [place] [facility] 4.2.7.2.686 Luiz as [phone] [facility] [address] [employer] 2019-11-29 2019-11-29 Transition Abigail Florez 1.2.840.114 [id number] Univers 00:00:00 00:00:00 of Care Rain Simms 350.1.13.10 it y of [place].2.[place] [id number] [facility] [address] [employer] 2019-11-29 2019-11-29 Transition Abigail Florez 1.2.840.114 [id number] [id number] 00:00:00 00:00:00 of Care Rain Simms 350.1.13.10 [place] 4.2.7.2.686 [phone] [facility] 2019-11-22 2019-11-28 [facility] [place] 1.2.071.460 2923 [id number] [facility] 14:08:03 17:30:00 Encounter Shikha A Yady 350.1.13.10 ity of Hospital 4.2.7.2.686 [place] [phone] [facility] [address] [employer] 2019-11-22 2019-11-28 [facility] Lanie Remy 1.2.545.718 [id number] [id number] 14:08:03 17:30:00 Encounter Shikha A Donovan 350.1.13.10 Hospital 4.2.7.2.686 [id number] [facility] 2019-11-22 2019-11-22 Emergency X FREDY, [facility] ERT [id number] Univers 09:15:45 13:02:00 RICO elmorey [facility] 2019-11-22 2019-11-22 Emergency Fredy, [facility] 1.2.419.386 [id number] [facility] 09:15:45 13:02:00 Rico No 350.1.13.10 i ty of [place] 4.2.7.2.686 [facility] [phone] [facility] [address] [employer] 2019-11-22 2019-11-22 Emergency Fredy, [facility] 1.2.725.229 [id number] 6532 09:15:45 13:02:00 Rico No 350.1.13.10 [place] 4.2.7.2.686 [place] [phone] 084 Results Test Description Test Time Test Comments Results Result Comments Source BASIC METABOLIC PANEL (NA, K, CL, CO2, GLUCOSE, BUN, 2022-07 10:48:29 CREATININE, CA) Test Item Value Reference Range Interpretation Comme nts NA (test code = 2563442657) 137 mmol/L 135-145 K (test code = 9364128327) 4.1 mmol/L 3.5-5.0 CL (test code = 4057320542) 109 mmol/L 98-108 H CO2 TOTAL (test code = 1671611873) 23 mmol/L 23-31 AGAP (test code = 8932434449) 2-16 BUN (test code = 2441313774) 8 mg/dL 7-23 GLUCOSE (test code = 6652460892) 95 mg/dL 70-110 CREATININE (test code = 0.44 mg/dL 0.50-1.04 L 6820923310) CALCIUM (test code = 6511786091) 8.9 mg/dL 8.6-10.6 eGFR (test code = 5930010192) mL/min/1.73m2 PARISH (test code = PARISH) Association of Glomerular Filtration Rate (GFR) and Staging of Kidney Disease* + +-------- + ------+| GFR (mL/min/1.73 m2) ?| With Kidney Damage ?| ?Without Kidney Damage+ +-- + +| ?>90 ?| ?Stage one ?| ? Normal ?+ +------- + -------+| ?60-89 ?| ?Stage two ?| ? Decreased GFR ? + +-------- + ------+| ?30-59 ?| ?Stage three ?| ? Stage three ? + +-------- + ------+| ?15-29 ?| ?Stage four ? | ? Stage four ?+ +------- + -------+| ?<15 (or dialysis) ? ?| ?Stage five ? | ? Stage five ?+ +------- + -------+ *Each stage assumes the associated GFR [...] or abnormalities in imaging tests). Lab Interpretation (test code = Abnormal 91426-2) [facility] WITH [id number] 10:35:30 Test Item Value Reference Range Interpretation Comments [...] as normal/abnormal . HGB (test code = 9.1 g/dL 11.6-15.0 L 718-7) HCT (test code = 29.1 % 35.7-45.2 L 4544-3) MCV (test code = 87.9 fL 80.6-95.5 787-2) MCH (test code = 27.5 pg 25.9-32.8 785-6) MCHC (test code = 31.3 g/dL 31.6-35.1 L 786-4) RDW-SD (test code = 56.9 fL 39.0-49.9 H 86584-3) RDW-CV (test code = 17.6 % 12.0-15.5 H 788-0) PLT (test code = See_Comment H [Automated 777-3) message] The sy stem which generated this result transmitted reference range : 166 - 358 10*3/ ?L. The reference r meli was not used to interpret this result as normal/abnormal . MPV (test code = 11.0 fL 9.5-12.9 39058-6) NRBC/100 WBC (test See_Comment [Automat ed code = 0967073071) message] The system which generated this result transmitted reference range : 0.0 - 10.0 /100 WBCs. The refer ence range was not u sed to interpret th is result as normal/abnormal . NRBC x10^3 (test code See_Comment [Auto mated = 2664163370) message] The s ystem which generated this result transmitted reference range : 10*3/?L. The reference range was not used to interpret this result as normal/abnormal . GRAN MAT (NEUT) % 56.0 % (test code = 770-8) IMM GRAN % (test code 0.10 % = 1314355914) LYMPH % (test code = 28.6 % 736-9) MONO % (test code = 10.1 % 5905-5) EOS % (test code = 4.6 % 713-8) BASO % (test code = 0.6 % 706-2) GRAN MAT x10^3(ANC) 4.49 10*3/uL 1.88-7.09 (test code = 9459434645) IMM GRAN x10^3 (test 0.00-0.06 code = 5356126353) LYMPH x10^3 (test code 2.30 10*3/uL 1.32-3.29 = 731-0) MONO x10^3 (test code 0.81 10*3/uL 0.33-0.92 = 742-7) EOS x10^3 (test code = 0.37 10*3/uL 0.03-0.39 711-2) BASO x10^3 (test code 0.05 10*3/uL 0.01-0.07 = 704-7) Lab Interpretation Abnormal (test code = 75954-4) [facility] (NA, K, CL, CO2, GLUCOSE, BUN, CREATININE, CA)2022-07-23 10:28:40 Test Item Value Reference Range Interpretation Comments NA (test code = 137 mmol/L 135-145 6024986115) K (test code = 3.9 mmol/L 3.5-5.0 7778588171) CL (test code = 111 mmol/L 98-108 H 9524272697) CO2 TOTAL (test code = 24 mmol/L 23-31 0580060087) AGAP (test code = 2-16 8356555104) BUN (test code = 11 mg/dL 7-23 7027832543) GLUCOSE (test code = 98 mg/dL 70-110 1320362798) CREATININE (test code = 0.45 mg/dL 0.50-1.04 L 1489868405) CALCIUM (test code = 8.3 mg/dL 8.6-10.6 L 7400845962) eGFR (test code = mL/min/1.73m2 2646331769) PARISH (test code = PARISH) Association of [...] tests). Lab Interpretation Abnormal (test code = 78971-8) [facility] WITH [id number] 09:46:17 Test Item Value Reference Range Interpretation Comments [...] as normal/abnormal . HGB (test code = 9.0 g/dL 11.6-15.0 L 718-7) HCT (test code = 29.1 % 35.7-45.2 L 4544-3) MCV (test code = 89.8 fL 80.6-95.5 787-2) MCH (test code = 27.8 pg 25.9-32.8 785-6) MCHC (test code = 30.9 g/dL 31.6-35.1 L 786-4) RDW-SD (test code = 57.2 fL 39.0-49.9 H 77486-7) RDW-CV (test code = 17.3 % 12.0-15.5 H 788-0) PLT (test code = See_Comment H [Automated 777-3) message] The sy stem which generated this result transmitted reference range : 166 - 358 10*3/ ?L. The reference r meli was not used to interpret this result as normal/abnormal . MPV (test code = 11.1 fL 9.5-12.9 71890-2) NRBC/100 WBC (test See_Comment [Automat ed code = 0452917755) message] The system which generated this result transmitted reference range : 0.0 - 10.0 /100 WBCs. The refer ence range was not u sed to interpret th is result as normal/abnormal . NRBC x10^3 (test code See_Comment [Auto mated = 4534376020) message] The s ystem which generated this result transmitted reference range : 10*3/?L. The reference range was not used to interpret this result as normal/abnormal . GRAN MAT (NEUT) % 53.2 % (test code = 770-8) IMM GRAN % (test code 0.30 % = 4317936713) LYMPH % (test code = 29.9 % 736-9) MONO % (test code = 11.0 % 5905-5) EOS % (test code = 5.1 % 713-8) BASO % (test code = 0.5 % 706-2) GRAN MAT x10^3(ANC) 3.98 10*3/uL 1.88-7.09 (test code = 7258915788) IMM GRAN x10^3 (test 0.00-0.06 code = 9907690411) LYMPH x10^3 (test code 2.24 10*3/uL 1.32-3.29 = 731-0) MONO x10^3 (test code 0.82 10*3/uL 0.33-0.92 = 742-7) EOS x10^3 (test code = 0.38 10*3/uL 0.03-0.39 711-2) BASO x10^3 (test code 0.04 10*3/uL 0.01-0.07 = 704-7) Lab Interpretation Abnormal (test code = 63452-5) [facility] GLUCOSE (AUTOMATED)2022-05-15 12:18:02 Test Item Value Reference Range Interpretation Comments POCT GLU (test code = 7964526007) 101 mg/dL 70-110 Lab Interpretation (test code = Normal 86588-7) [facility] GLUCOSE (AUTOMATED)2022-05-15 01:10:09 Test Item Value Reference Range Interpretation Comments POCT GLU (test code = 8681687482) 116 mg/dL 70-110 H Lab Interpretation (test code = Abnormal 31061-3) [facility] GLUCOSE (AUTOMATED)2022-05-14 21:27:18 Test Item Value Reference Range Interpretation Comments POCT GLU (test code = 4804811662) 108 mg/dL 70-110 Lab Interpretation (test code = Normal 55046-9) [facility] GLUCOSE (AUTOMATED)2022-05-14 16:19:26 Test Item Value Reference Range Interpretation Comments POCT GLU (test code = 2166483685) 108 mg/dL 70-110 Lab Interpretation (test code = Normal 63166-0) [facility] GLUCOSE (AUTOMATED)2022-05-14 12:35:24 Test Item Value Reference Range Interpretation Comments POCT GLU (test code = 2177186018) 92 mg/dL 70-110 Lab Interpretation (test code = Normal 49025-9) [facility] GLUCOSE (AUTOMATED)2022-05-14 01:22:52 Test Item Value Reference Range Interpretation Comments POCT GLU (test code = 9146932546) 114 mg/dL 70-110 H Lab Interpretation (test code = Abnormal 41318-0) [facility] GLUCOSE (AUTOMATED)2022-05-13 22:04:48 Test Item Value Reference Range Interpretation Comments POCT GLU (test code = 1137535945) 94 mg/dL 70-110 Lab Interpretation (test code = Normal 92115-0) [facility] WITH [id number] 21:21:11 Test Item Value Reference Range Interpretation [...] (test code = 52.1 fL 39.0-49.9 H 02562-2) RDW-CV (test code = 17.4 % 12.0-15.5 H 788-0) PLT (test code = See_Comment H [Automated 777-3) message] The sy stem which generated this result transmitted reference range : 166 - 358 10*3/ ?L. The reference r meli was not used to interpret this result as normal/abnormal . MPV (test code = 9.3 fL 9.5-12.9 L 80934-7) NRBC/100 WBC (test See_Comment [Automat ed code = 9219180072) message] The system which generated this result transmitted reference range : 0.0 - 10.0 /100 WBCs. The refer ence range was not u sed to interpret th is result as normal/abnormal . NRBC x10^3 (test code See_Comment [Auto mated = [id number]) message] The s ystem which generated this result transmitted reference range : 10*3/?L. The reference range was not used to interpret this result as normal/abnormal . GRAN MAT (NEUT) % 58.3 % (test code = 770-8) IMM GRAN % (test code 0.30 % = 7463844757) LYMPH % (test code = 24.0 % 736-9) MONO % (test code = 12.5 % 5905-5) EOS % (test code = 4.4 % 713-8) BASO % (test code = 0.5 % 706-2) GRAN MAT x10^3(ANC) 5.55 10*3/uL 1.88-7.09 (test code = 4998868403) IMM GRAN x10^3 (test 0.03 10*3/uL 0.00-0.06 code = 4981996040) LYMPH x10^3 (test code 2.29 10*3/uL 1.32-3.29 = 731-0) MONO x10^3 (test code 1.19 10*3/uL 0.33-0.92 H = 742-7) EOS x10^3 (test code = 0.42 10*3/uL 0.03-0.39 H 711-2) BASO x10^3 (test code 0.05 10*3/uL 0.01-0.07 = 704-7) Lab Interpretation Abnormal (test code = 31210-2) [facility] GLUCOSE (AUTOMATED)2022-05-13 16:53:58 Test Item Value Reference Range Interpretation Comments POCT GLU (test code = 1830573308) 100 mg/dL 70-110 Lab Interpretation (test code = Normal 86152-3) [facility] GLUCOSE (AUTOMATED)2022-05-13 12:59:22 Test Item Value Reference Range Interpretation Comments POCT GLU (test code = 9443869301) 85 mg/dL 70-110 Lab Interpretation (test code = Normal 04523-7) [facility] GLUCOSE (AUTOMATED)2022-05-13 01:05:03 Test Item Value Reference Range Interpretation Comments POCT GLU (test code = [id number]) 140 mg/dL 70-110 H Lab Interpretation (test code = Abnormal 76649-3) [facility] GLUCOSE (AUTOMATED)2022-05-12 21:08:29 Test Item Value Reference Range Interpretation Comments POCT GLU (test code = 2566607272) 109 mg/dL 70-110 Lab Interpretation (test code = Normal 84044-9) [facility] GLUCOSE (AUTOMATED)2022-05-12 16:28:42 Test Item Value Reference Range Interpretation Comments POCT GLU (test code = 6285933907) 117 mg/dL 70-110 H Lab Interpretation (test code = Abnormal 63635-9) [facility] GLUCOSE (AUTOMATED)2022-05-12 12:24:43 Test Item Value Reference Range Interpretation Comments POCT GLU (test code = 5070274852) 114 mg/dL 70-110 H Lab Interpretation (test code = Abnormal 78523-0) [facility] GLUCOSE (AUTOMATED)2022-05-12 09:09:02 Test Item Value Reference Range Interpretation Comments POCT GLU (test code = 7580006559) 88 mg/dL 70-110 Lab Interpretation (test code = Normal 66552-1) [facility] GLUCOSE (AUTOMATED)2022-05-12 05:00:55 Test Item Value Reference Range Interpretation Comments POCT GLU (test code = 7302386613) 107 mg/dL 70-110 Lab Interpretation (test code = Normal 76197-6) [facility] GLUCOSE (AUTOMATED)2022-05-12 01:15:40 Test Item Value Reference Range Interpretation Comments POCT GLU (test code = 1449297773) 118 mg/dL 70-110 H Lab Interpretation (test code = Abnormal 52190-4) [facility] GLUCOSE (AUTOMATED)2022-05-11 21:44:12 Test Item Value Reference Range Interpretation Comments POCT GLU (test code = 5761036280) 109 mg/dL 70-110 Lab Interpretation (test code = Normal 54441-3) [facility] GLUCOSE (AUTOMATED)2022-05-11 16:35:33 Test Item Value Reference Range Interpretation Comments POCT GLU (test code = 3681915679) 105 mg/dL 70-110 Lab Interpretation (test code = Normal 61290-8) [facility] GLUCOSE (AUTOMATED)2022-05-11 12:37:40 Test Item Value Reference Range Interpretation Comments POCT GLU (test code = 9037162613) 100 mg/dL 70-110 Lab Interpretation (test code = Normal 31446-1) [facility] GLUCOSE (AUTOMATED)2022-05-11 09:21:30 Test Item Value Reference Range Interpretation Comments POCT GLU (test code = 6108838060) 94 mg/dL 70-110 Lab Interpretation (test code = Normal 00353-7) [facility] GLUCOSE (AUTOMATED)2022-05-11 05:40:17 Test Item Value Reference Range Interpretation Comments POCT GLU (test code = 1577329687) 95 mg/dL 70-110 Lab Interpretation (test code = Normal 98131-0) [facility] 00:58:38 Test Item Value Reference Range Interpretation Comments POCT GLU (test code = 3852026587) 104 mg/dL 70-110 Lab Interpretation (test code = Normal 68250-4) [facility] GLUCOSE (AUTOMATED)2022-05-10 21:40:47 Test Item Value Reference Range Interpretation Comments POCT GLU (test code = 0030201403) 98 mg/dL 70-110 Lab Interpretation (test code = Normal 09197-5) [facility] GLUCOSE (AUTOMATED)2022-05-10 16:35:59 Test Item Value Reference Range Interpretation Comments POCT GLU (test code = 7181925241) 90 mg/dL 70-110 Lab Interpretation (test code = Normal 17187-2) [facility] GLUCOSE (AUTOMATED)2022-05-10 12:50:26 Test Item Value Reference Range Interpretation Comments POCT GLU (test code = 8379401039) 96 mg/dL 70-110 Lab Interpretation (test code = Normal 31571-7) [facility] GLUCOSE (AUTOMATED)2022-05-10 09:58:38 Test Item Value Reference Range Interpretation Comments POCT GLU (test code = 5616483169) 93 mg/dL 70-110 Lab Interpretation (test code = Normal 82155-8) [facility] GLUCOSE (AUTOMATED)2022-05-10 05:23:38 Test Item Value Reference Range Interpretation Comments POCT GLU (test code = 3211096088) 98 mg/dL 70-110 Lab Interpretation (test code = Normal 00985-1) [facility] GLUCOSE (AUTOMATED)2022-05-10 01:00:31 Test Item Value Reference Range Interpretation Comments POCT GLU (test code = 6812991443) 91 mg/dL 70-110 Lab Interpretation (test code = Normal 88682-1) [facility] GLUCOSE (AUTOMATED)2022-05-09 16:51:58 Test Item Value Reference Range Interpretation Comments POCT GLU (test code = 0307532845) 107 mg/dL 70-110 Lab Interpretation (test code = Normal 97258-0) [facility] GLUCOSE (AUTOMATED)2022-05-09 12:54:43 Test Item Value Reference Range Interpretation Comments POCT GLU (test code = 9278420435) 119 mg/dL 70-110 H Lab Interpretation (test code = Abnormal 69937-0) [facility] GLUCOSE (AUTOMATED)2022-05-09 09:21:00 Test Item Value Reference Range Interpretation Comments POCT GLU (test code = 6818245544) 124 mg/dL 70-110 H Lab Interpretation (test code = Abnormal 88896-3) [facility] GLUCOSE (AUTOMATED)2022-05-09 06:21:35 Test Item Value Reference Range Interpretation Comments POCT GLU (test code = 8813551831) 126 mg/dL 70-110 H Lab Interpretation (test code = Abnormal 12450-5) [facility] 00:54:03 Test Item Value Reference Range Interpretation Comments POCT GLU (test code = 2874779889) 121 mg/dL 70-110 H Lab Interpretation (test code = Abnormal 74176-2) [facility] 21:44:59 Test Item Value Reference Range Interpretation Comments POCT GLU (test code = 5144675040) 135 mg/dL 70-110 H Lab Interpretation (test code = Abnormal 51597-8) [facility] GLUCOSE (AUTOMATED)2022-05-08 21:44:59 Test Item Value Reference Range Interpretation Comments POCT GLU (test code = 4746055530) 135 mg/dL 70-110 H Lab Interpretation (test code = Abnormal 90949-3) [facility] GLUCOSE (AUTOMATED)2022-05-08 17:19:33 Test Item Value Reference Range Interpretation Comments POCT GLU (test code = 9622739919) 149 mg/dL 70-110 H Lab Interpretation (test code = Abnormal 37622-2) [facility] GLUCOSE (AUTOMATED)2022-05-08 17:19:33 Test Item Value Reference Range Interpretation Comments POCT GLU (test code = 6247964115) 149 mg/dL 70-110 H Lab Interpretation (test code = Abnormal 02598-6) [facility] GLUCOSE (AUTOMATED)2022-05-08 17:19:33 Test Item Value Reference Range Interpretation Comments POCT GLU (test code = 3173850671) 149 mg/dL 70-110 H Lab Interpretation (test code = Abnormal 05887-6) [facility] GLUCOSE (AUTOMATED)2022-05-08 13:09:00 Test Item Value Reference Range Interpretation Comments POCT GLU (test code = 9541708556) 150 mg/dL 70-110 H Lab Interpretation (test code = Abnormal 16963-8) [facility] 13:09:00 Test Item Value Reference Range Interpretation Comments POCT GLU (test code = 4567009643) 150 mg/dL 70-110 H Lab Interpretation (test code = Abnormal 95444-9) [facility] GLUCOSE (AUTOMATED)2022-05-08 13:09:00 Test Item Value Reference Range Interpretation Comments POCT GLU (test code = 2859381494) 150 mg/dL 70-110 H Lab Interpretation (test code = Abnormal 88426-4) [facility] GLUCOSE (AUTOMATED)2022-05-08 09:18:28 Test Item Value Reference Range Interpretation Comments POCT GLU (test code = 8112112001) 160 mg/dL 70-110 H Lab Interpretation (test code = Abnormal 59366-5) [facility] GLUCOSE (AUTOMATED)2022-05-08 09:18:28 Test Item Value Reference Range Interpretation Comments POCT GLU (test code = 2491027037) 160 mg/dL 70-110 H Lab Interpretation (test code = Abnormal 17618-6) [facility] GLUCOSE (AUTOMATED)2022-05-08 09:18:28 Test Item Value Reference Range Interpretation Comments POCT GLU (test code = 6577072254) 160 mg/dL 70-110 H Lab Interpretation (test code = Abnormal 31344-4) [facility] GLUCOSE (AUTOMATED)2022-05-08 05:51:31 Test Item Value Reference Range Interpretation Comments POCT GLU (test code = 8893882034) 170 mg/dL 70-110 H Lab Interpretation (test code = Abnormal 84192-4) [facility] GLUCOSE (AUTOMATED)2022-05-08 05:51:31 Test Item Value Reference Range Interpretation Comments POCT GLU (test code = 3407757500) 170 mg/dL 70-110 H Lab Interpretation (test code = Abnormal 10008-6) [facility] GLUCOSE (AUTOMATED)2022-05-08 05:51:31 Test Item Value Reference Range Interpretation Comments POCT GLU (test code = 4322027482) 170 mg/dL 70-110 H Lab Interpretation (test code = Abnormal 40598-8) [facility] 00:43:21 Test Item Value Reference Range Interpretation Comments POCT GLU (test code = 9103758006) 270 mg/dL 70-110 H Lab Interpretation (test code = Abnormal 32813-9) [facility] GLUCOSE (AUTOMATED)2022-05-08 00:43:21 Test Item Value Reference Range Interpretation Comments POCT GLU (test code = 2047294175) 270 mg/dL 70-110 H Lab Interpretation (test code = Abnormal 10950-7) [facility] GLUCOSE (AUTOMATED)2022-05-08 00:43:21 Test Item Value Reference Range Interpretation Comments POCT GLU (test code = 5717276762) 270 mg/dL 70-110 H Lab Interpretation (test code = Abnormal 58666-8) [facility] GLUCOSE (AUTOMATED)2022-05-07 21:04:16 Test Item Value Reference Range Interpretation Comments POCT GLU (test code = 102 mg/dL 70-110 Notifi ed Provider [id number]) Lab Interpretation (test Normal code = 69953-0) [facility] GLUCOSE (AUTOMATED)2022-05-07 21:04:16 Test Item Value Reference Range Interpretation Comments POCT GLU (test code = 102 mg/dL 70-110 Notifi ed Provider [id number]) Lab Interpretation (test Normal code = 55730-3) [facility] GLUCOSE (AUTOMATED)2022-05-07 21:04:16 Test Item Value Reference Range Interpretation Comments POCT GLU (test code = 102 mg/dL 70-110 Notifi ed Provider [id number]) Lab Interpretation (test Normal code = 10659-9) [facility] GLUCOSE (AUTOMATED)2022-05-07 16:26:32 Test Item Value Reference Range Interpretation Comments POCT GLU (test code = 78 mg/dL 70-110 Notifi ed Provider [id number]) Lab Interpretation (test Normal code = 43815-5) [facility] GLUCOSE (AUTOMATED)2022-05-07 16:26:32 Test Item Value Reference Range Interpretation Comments POCT GLU (test code = 78 mg/dL 70-110 Notifi ed Provider [id number]) Lab Interpretation (test Normal code = 98716-7) [facility] GLUCOSE (AUTOMATED)2022-05-07 16:26:32 Test Item Value Reference Range Interpretation Comments POCT GLU (test code = 78 mg/dL 70-110 Notifi ed Provider [id number]) Lab Interpretation (test Normal code = 73713-9) [facility] GLUCOSE (AUTOMATED)2022-05-07 13:23:28 Test Item Value Reference Range Interpretation Comments POCT GLU (test code = 87 mg/dL 70-110 Notifi ed Provider [id number]) Lab Interpretation (test Normal code = 94603-1) [facility] 13:23:28 Test Item Value Reference Range Interpretation Comments POCT GLU (test code = 87 mg/dL 70-110 Notifi ed Provider [id number]) Lab Interpretation (test Normal code = 46845-2) [facility]20[facility]-07 13:23:28 Test Item Value Reference Range Interpretation Comments POCT GLU (test code = 87 mg/dL 70-110 Notifi ed Provider [id number]) Lab Interpretation (test Normal code = 36721-3) [facility]20[facility]-07 06:05:32 Test Item Value Reference Range Interpretation Comments POCT GLU (test code = 8493871376) 83 mg/dL 70-110 Lab Interpretation (test code = Normal 57802-0) [facility] 06:05:32 Test Item Value Reference Range Interpretation Comments POCT GLU (test code = 3047115124) 83 mg/dL 70-110 Lab Interpretation (test code = Normal 15113-8) [facility]2022-05-07 06:05:32 Test Item Value Reference Range Interpretation Comments POCT GLU (test code = 8828637307) 83 mg/dL 70-110 Lab Interpretation (test code = Normal 29400-5) [facility]2022-[facility]-07 02:42:29 Test Item Value Reference Range Interpretation Comments POCT GLU (test code = 9356847850) 89 mg/dL 70-110 Lab Interpretation (test code = Normal 13771-8) [facility]2022-[facility]-07 02:42:29 Test Item Value Reference Range Interpretation Comments POCT GLU (test code = 4910393291) 89 mg/dL 70-110 Lab Interpretation (test code = Normal 50209-4) [facility] 02:42:29 Test Item Value Reference Range Interpretation Comments POCT GLU (test code = 3801012006) 89 mg/dL 70-110 Lab Interpretation (test code = Normal 87351-0) [facility] 01:27:21 Test Item Value Reference Range Interpretation Comments POCT GLU (test code = 7714886459) 90 mg/dL 70-110 Lab Interpretation (test code = Normal 39129-4) [facility] 01:27:21 Test Item Value Reference Range Interpretation Comments POCT GLU (test code = 7670674880) 90 mg/dL 70-110 Lab Interpretation (test code = Normal 64378-3) [facility] 01:27:21 Test Item Value Reference Range Interpretation Comments POCT GLU (test code = 8626625626) 90 mg/dL 70-110 Lab Interpretation (test code = Normal 26207-0) [facility] GLUCOSE (AUTOMATED)2022-05-06 22:02:22 Test Item Value Reference Range Interpretation Comments POCT GLU (test code = 0818340226) 76 mg/dL 70-110 Lab Interpretation (test code = Normal 94276-5) [facility] 22:02:22 Test Item Value Reference Range Interpretation Comments POCT GLU (test code = 6674730328) 76 mg/dL 70-110 Lab Interpretation (test code = Normal 84647-9) [facility] 22:02:22 Test Item Value Reference Range Interpretation Comments POCT GLU (test code = 2067932685) 76 mg/dL 70-110 Lab Interpretation (test code = Normal 71003-5) [facility] 17:01:25 Test Item Value Reference Range Interpretation Comments POCT GLU (test code = 4946887934) 92 mg/dL 70-110 Lab Interpretation (test code = Normal 80662-4) [facility] 17:01:25 Test Item Value Reference Range Interpretation Comments POCT GLU (test code = 8790399400) 92 mg/dL 70-110 Lab Interpretation (test code = Normal 55459-3) [facility] 17:01:25 Test Item Value Reference Range Interpretation Comments POCT GLU (test code = 6131771215) 92 mg/dL 70-110 Lab Interpretation (test code = Normal 07069-2) [facility] GLUCOSE (AUTOMATED)2022-05-06 13:49:34 Test Item Value Reference Range Interpretation Comments POCT GLU (test code = 2292068718) 104 mg/dL 70-110 Lab Interpretation (test code = Normal 38396-9) [facility] GLUCOSE (AUTOMATED)2022-05-06 13:49:34 Test Item Value Reference Range Interpretation Comments POCT GLU (test code = 8671853395) 104 mg/dL 70-110 Lab Interpretation (test code = Normal 02979-6) [facility] GLUCOSE (AUTOMATED)2022-05-06 13:49:34 Test Item Value Reference Range Interpretation Comments POCT GLU (test code = 0558511851) 104 mg/dL 70-110 Lab Interpretation (test code = Normal 76564-9) [facility] GLUCOSE (AUTOMATED)2022-05-06 10:03:34 Test Item Value Reference Range Interpretation Comments POCT GLU (test code = 9327999578) 79 mg/dL 70-110 Lab Interpretation (test code = Normal 92535-8) [facility] GLUCOSE (AUTOMATED)2022-05-06 10:03:34 Test Item Value Reference Range Interpretation Comments POCT GLU (test code = 0201435335) 79 mg/dL 70-110 Lab Interpretation (test code = Normal 34991-7) [facility] GLUCOSE (AUTOMATED)2022-05-06 10:03:34 Test Item Value Reference Range Interpretation Comments POCT GLU (test code = 7749382231) 79 mg/dL 70-110 Lab Interpretation (test code = Normal 61005-3) [facility] GLUCOSE (AUTOMATED)2022-05-06 09:02:14 Test Item Value Reference Range Interpretation Comments POCT GLU (test code = 3650932233) 77 mg/dL 70-110 Lab Interpretation (test code = Normal 58405-8) [facility] GLUCOSE (AUTOMATED)2022-05-06 09:02:14 Test Item Value Reference Range Interpretation Comments POCT GLU (test code = 4357152919) 77 mg/dL 70-110 Lab Interpretation (test code = Normal 49498-7) [facility] 09:02:14 Test Item Value Reference Range Interpretation Comments POCT GLU (test code = 5094136555) 77 mg/dL 70-110 Lab Interpretation (test code = Normal 47872-1) [facility] 06:24:47 Test Item Value Reference Range Interpretation Comments POCT GLU (test code = 1012762351) 95 mg/dL 70-110 Lab Interpretation (test code = Normal 27111-0) [facility] 06:24:47 Test Item Value Reference Range Interpretation Comments POCT GLU (test code = 6396861374) 95 mg/dL 70-110 Lab Interpretation (test code = Normal 44393-5) [facility] GLUCOSE (AUTOMATED)2022-05-06 06:24:47 Test Item Value Reference Range Interpretation Comments POCT GLU (test code = 2947345113) 95 mg/dL 70-110 Lab Interpretation (test code = Normal 79368-6) [facility] GLUCOSE (AUTOMATED)2022-05-06 05:23:27 Test Item Value Reference Range Interpretation Comments POCT GLU (test code = 7400270560) 80 mg/dL 70-110 Lab Interpretation (test code = Normal 16473-6) [facility] GLUCOSE (AUTOMATED)2022-05-06 05:23:27 Test Item Value Reference Range Interpretation Comments POCT GLU (test code = 8452340467) 80 mg/dL 70-110 Lab Interpretation (test code = Normal 27460-8) [facility] 05:23:27 Test Item Value Reference Range Interpretation Comments POCT GLU (test code = 5233094900) 80 mg/dL 70-110 Lab Interpretation (test code = Normal 54864-9) [facility] 00:32:44 Test Item Value Reference Range Interpretation Comments POCT GLU (test code = 0172657207) 92 mg/dL 70-110 Lab Interpretation (test code = Normal 11290-1) [facility] GLUCOSE (AUTOMATED)2022-05-06 00:32:44 Test Item Value Reference Range Interpretation Comments POCT GLU (test code = 1843949425) 92 mg/dL 70-110 Lab Interpretation (test code = Normal 44493-3) [facility] GLUCOSE (AUTOMATED)2022-05-06 00:32:44 Test Item Value Reference Range Interpretation Comments POCT GLU (test code = 7272008420) 92 mg/dL 70-110 Lab Interpretation (test code = Normal 48535-4) [facility] GLUCOSE (AUTOMATED)2022-05-05 21:46:32 Test Item Value Reference Range Interpretation Comments POCT GLU (test code = 7731550385) 92 mg/dL 70-110 Lab Interpretation (test code = Normal 11889-5) [facility] GLUCOSE (AUTOMATED)2022-05-05 21:46:32 Test Item Value Reference Range Interpretation Comments POCT GLU (test code = 8297286685) 92 mg/dL 70-110 Lab Interpretation (test code = Normal 70160-5) [facility] GLUCOSE (AUTOMATED)2022-05-05 21:46:32 Test Item Value Reference Range Interpretation Comments POCT GLU (test code = 2068204456) 92 mg/dL 70-110 Lab Interpretation (test code = Normal 20923-5) [facility] GLUCOSE (AUTOMATED)2022-05-05 17:06:28 Test Item Value Reference Range Interpretation Comments POCT GLU (test code = 2247724105) 106 mg/dL 70-110 Lab Interpretation (test code = Normal 78666-3) [facility] GLUCOSE (AUTOMATED)2022-05-05 17:06:28 Test Item Value Reference Range Interpretation Comments POCT GLU (test code = 3833013739) 106 mg/dL 70-110 Lab Interpretation (test code = Normal 10421-3) [facility] GLUCOSE (AUTOMATED)2022-05-05 17:06:28 Test Item Value Reference Range Interpretation Comments POCT GLU (test code = 2234827326) 106 mg/dL 70-110 Lab Interpretation (test code = Normal 34883-4) [facility] GLUCOSE (AUTOMATED)2022-05-05 10:59:23 Test Item Value Reference Range Interpretation Comments POCT GLU (test code = 0789948262) 95 mg/dL 70-110 Lab Interpretation (test code = Normal 59335-6) [facility] GLUCOSE (AUTOMATED)2022-05-05 10:59:23 Test Item Value Reference Range Interpretation Comments POCT GLU (test code = 3791181954) 95 mg/dL 70-110 Lab Interpretation (test code = Normal 73599-9) [facility] GLUCOSE (AUTOMATED)2022-05-05 10:59:23 Test Item Value Reference Range Interpretation Comments POCT GLU (test code = 3967768341) 95 mg/dL 70-110 Lab Interpretation (test code = Normal 05824-2) [facility] GLUCOSE (AUTOMATED)2022-05-04 16:27:41 Test Item Value Reference Range Interpretation Comments POCT GLU (test code = 96 mg/dL 70-110 Notifi ed Provider [id number]) Lab Interpretation (test Normal code = 20319-5) [facility] GLUCOSE (AUTOMATED)2022-05-04 16:27:41 Test Item Value Reference Range Interpretation Comments POCT GLU (test code = 96 mg/dL 70-110 Notifi ed Provider [id number]) Lab Interpretation (test Normal code = 17376-3) [facility] GLUCOSE (AUTOMATED)2022-05-04 16:27:41 Test Item Value Reference Range Interpretation Comments POCT GLU (test code = 96 mg/dL 70-110 Notifi ed Provider [id number]) Lab Interpretation (test Normal code = 17200-8) [facility] METABOLIC PANEL (NA, K, CL, CO2, GLUCOSE, BUN, CREATININE, CA)2022-05-04 11:33:42 Test Item Value Reference Range Interpretation Comments NA (test code = 136 mmol/L 135-145 3317868804) K (test code = 3.2 mmol/L 3.5-5.0 L 0023532259) CL (test code = 114 mmol/L 98-108 H 7520982164) CO2 TOTAL (test code = 21 mmol/L 23-31 L 4596986589) AGAP (test code = 2-16 L 3447607177) BUN (test code = 2 mg/dL 7-23 L 8479766482) GLUCOSE (test code = 87 mg/dL 70-110 7181601876) CREATININE (test code = 0.38 mg/dL 0.50-1.04 L 3623624078) CALCIUM (test code = 7.3 mg/dL 8.6-10.6 L 2192587397) eGFR (test code = mL/min/1.73m2 7094284654) PARISH (test code = PARISH) Association of [...] tests). Lab Interpretation Abnormal (test code = 16577-3) [facility]:42 Test Item Value Reference Range Interpretation Comments MAGNESIUM (test code = 7812862672) 2.0 mg/dL 1.7-2.4 Lab Interpretation (test code = Normal 65376-4) [facility] 11:33:42 Test Item Value Reference Range Interpretation Comments PHOSPHORUS (test code = 4852838134) 2.8 mg/dL 2.5-5.0 Lab Interpretation (test code = Normal 69162-9) [facility] METABOLIC PANEL (NA, K, CL, CO2, GLUCOSE, BUN, CREATININE, CA)2022-05-04 11:33:42 Test Item Value Reference Range Interpretation Comments NA (test code = 136 mmol/L 135-145 9102772934) K (test code = 3.2 mmol/L 3.5-5.0 L 8290444356) CL (test code = 114 mmol/L 98-108 H 5556568908) CO2 TOTAL (test code = 21 mmol/L 23-31 L 4437190818) AGAP (test code = 2-16 L 0731598626) BUN (test code = 2 mg/dL 7-23 L 5322245605) GLUCOSE (test code = 87 mg/dL 70-110 3542769897) CREATININE (test code = 0.38 mg/dL 0.50-1.04 L 5286182572) CALCIUM (test code = 7.3 mg/dL 8.6-10.6 L 5888875844) eGFR (test code = mL/min/1.73m2 5742688484) PARISH (test code = PARISH) Association of [...] tests). Lab Interpretation Abnormal (test code = 05746-7) [facility] 11:33:42 Test Item Value Reference Range Interpretation Comments MAGNESIUM (test code = 7470688196) 2.0 mg/dL 1.7-2.4 Lab Interpretation (test code = Normal 97862-3) [facility] 11:33:42 Test Item Value Reference Range Interpretation Comments PHOSPHORUS (test code = 6149129293) 2.8 mg/dL 2.5-5.0 Lab Interpretation (test code = Normal 55080-4) [facility] (NA, K, CL, CO2, GLUCOSE, BUN, CREATININE, CA)2022-05-04 11:33:42 Test Item Value Reference Range Interpretation Comments NA (test code = 136 mmol/L 135-145 9109357637) K (test code = 3.2 mmol/L 3.5-5.0 L 4339793544) CL (test code = 114 mmol/L 98-108 H 2637616881) CO2 TOTAL (test code = 21 mmol/L 23-31 L 9595602870) AGAP (test code = 2-16 L 7370240499) BUN (test code = 2 mg/dL 7-23 L 3777612858) GLUCOSE (test code = 87 mg/dL 70-110 5061903860) CREATININE (test code = 0.38 mg/dL 0.50-1.04 L 0445797124) CALCIUM (test code = 7.3 mg/dL 8.6-10.6 L 2874980429) eGFR (test code = mL/min/1.73m2 6755652543) PARISH (test code = PARISH) Association of [...] tests). Lab Interpretation Abnormal (test code = 81897-8) [facility]42 Test Item Value Reference Range Interpretation Comments MAGNESIUM (test code = 7232097395) 2.0 mg/dL 1.7-2.4 Lab Interpretation (test code = Normal 87955-4) [facility] 11[facility]42 Test Item Value Reference Range Interpretation Comments PHOSPHORUS (test code = 7292023233) 2.8 mg/dL 2.5-5.0 Lab Interpretation (test code = Normal 46368-3) [facility] [id number] 11:16:42 Test Item Value Reference Range Interpretation Comments WBC (test code = See_Comment H [Automated 9690-2) message] The sy stem which generated this result transmitted reference range : 4.30 - 11.10 10*3/?L. The reference range was not used to interpret this result as normal/abnormal . RBC (test code = See_Comment L [Automated 089-8) message] The sy stem which generated this [...] (test code = 50.1 fL 39.0-49.9 H 76108-7) RDW-CV (test code = 16.1 % 12.0-15.5 H 788-0) PLT (test code = See_Comment H [Automated 777-3) message] The sy stem which generated this result transmitted reference range : 166 - 358 10*3/ ?L. The reference r meli was not used to interpret this result as normal/abnormal . MPV (test code = 9.5 fL 9.5-12.9 49033-5) NRBC/100 WBC (test See_Comment [Automat ed code = 4364260601) message] The system which generated this result transmitted reference range : 0.0 - 10.0 /100 WBCs. The refer ence range was not u sed to interpret th is result as normal/abnormal . NRBC x10^3 (test code See_Comment [Auto mated = 7191503656) message] The s ystem which generated this result transmitted reference range : 10*3/?L. The reference range was not used to interpret this result as normal/abnormal . GRAN MAT (NEUT) % 66.8 % (test code = 770-8) IMM GRAN % (test code 0.60 % = 8654198759) LYMPH % (test code = 19.5 % 736-9) MONO % (test code = 9.4 % 5905-5) EOS % (test code = 3.4 % 713-8) BASO % (test code = 0.3 % 706-2) GRAN MAT x10^3(ANC) 7.59 10*3/uL 1.88-7.09 H (test code = 7745181905) IMM GRAN x10^3 (test 0.07 10*3/uL 0.00-0.06 H code = 6625867185) LYMPH x10^3 (test code 2.21 10*3/uL 1.32-3.29 = 731-0) MONO x10^3 (test code 1.07 10*3/uL 0.33-0.92 H = 742-7) EOS x10^3 (test code = 0.39 10*3/uL 0.03-0.39 711-2) BASO x10^3 (test code 0.03 10*3/uL 0.01-0.07 = 704-7) Lab Interpretation Abnormal (test code = 97596-5) [facility] WITH [id number] 11:16:42 Test Item Value Reference Range Interpretation [...] (test code = 50.1 fL 39.0-49.9 H 45665-4) RDW-CV (test code = 16.1 % 12.0-15.5 H 788-0) PLT (test code = See_Comment H [Automated 777-3) message] The sy stem which generated this result transmitted reference range : 166 - 358 10*3/ ?L. The reference r meli was not used to interpret this result as normal/abnormal . MPV (test code = 9.5 fL 9.5-12.9 61188-8) NRBC/100 WBC (test See_Comment [Automat ed code = 4308674468) message] The system which generated this result transmitted reference range : 0.0 - 10.0 /100 WBCs. The refer ence range was not u sed to interpret th is result as normal/abnormal . NRBC x10^3 (test code See_Comment [Auto mated = 2423287475) message] The s ystem which generated this result transmitted reference range : 10*3/?L. The reference range was not used to interpret this result as normal/abnormal . GRAN MAT (NEUT) % 66.8 % (test code = 770-8) IMM GRAN % (test code 0.60 % = 1228414794) LYMPH % (test code = 19.5 % 736-9) MONO % (test code = 9.4 % 5905-5) EOS % (test code = 3.4 % 713-8) BASO % (test code = 0.3 % 706-2) GRAN MAT x10^3(ANC) 7.59 10*3/uL 1.88-7.09 H (test code = 3683840728) IMM GRAN x10^3 (test 0.07 10*3/uL 0.00-0.06 H code = 9026145911) LYMPH x10^3 (test code 2.21 10*3/uL 1.32-3.29 = 731-0) MONO x10^3 (test code 1.07 10*3/uL 0.33-0.92 H = 742-7) EOS x10^3 (test code = 0.39 10*3/uL 0.03-0.39 711-2) BASO x10^3 (test code 0.03 10*3/uL 0.01-0.07 = 704-7) Lab Interpretation Abnormal (test code = 22957-9) [facility] WITH [id number] 11:16:42 Test Item Value Reference Range Interpretation [...] (test code = 50.1 fL 39.0-49.9 H 15657-6) RDW-CV (test code = 16.1 % 12.0-15.5 H 788-0) PLT (test code = See_Comment H [Automated 777-3) message] The sy stem which generated this result transmitted reference range : 166 - 358 10*3/ ?L. The reference r meli was not used to interpret this result as normal/abnormal . MPV (test code = 9.5 fL 9.5-12.9 41262-1) NRBC/100 WBC (test See_Comment [Automat ed code = 4978115479) message] The system which generated this result transmitted reference range : 0.0 - 10.0 /100 WBCs. The refer ence range was not u sed to interpret th is result as normal/abnormal . NRBC x10^3 (test code See_Comment [Auto mated = 1640491872) message] The s ystem which generated this result transmitted reference range : 10*3/?L. The reference range was not used to interpret this result as normal/abnormal . GRAN MAT (NEUT) % 66.8 % (test code = 770-8) IMM GRAN % (test code 0.60 % = 0255513951) LYMPH % (test code = 19.5 % 736-9) MONO % (test code = 9.4 % 5905-5) EOS % (test code = 3.4 % 713-8) BASO % (test code = 0.3 % 706-2) GRAN MAT x10^3(ANC) 7.59 10*3/uL 1.88-7.09 H (test code = 8122563765) IMM GRAN x10^3 (test 0.07 10*3/uL 0.00-0.06 H code = 5799300667) LYMPH x10^3 (test code 2.21 10*3/uL 1.32-3.29 = 731-0) MONO x10^3 (test code 1.07 10*3/uL 0.33-0.92 H = 742-7) EOS x10^3 (test code = 0.39 10*3/uL 0.03-0.39 711-2) BASO x10^3 (test code 0.03 10*3/uL 0.01-0.07 = 704-7) Lab Interpretation Abnormal (test code = 81323-2) [facility] GLUCOSE (AUTOMATED)2022-05-04 11:04:17 Test Item Value Reference Range Interpretation Comments POCT GLU (test code = 6849447287) 83 mg/dL 70-110 Lab Interpretation (test code = Normal 76292-5) [facility] GLUCOSE (AUTOMATED)2022-05-04 11:04:17 Test Item Value Reference Range Interpretation Comments POCT GLU (test code = 4572800310) 83 mg/dL 70-110 Lab Interpretation (test code = Normal 43617-4) [facility] GLUCOSE (AUTOMATED)2022-05-04 11:04:17 Test Item Value Reference Range Interpretation Comments POCT GLU (test code = 4683226323) 83 mg/dL 70-110 Lab Interpretation (test code = Normal 78529-4) [facility] GLUCOSE (AUTOMATED)2022-05-03 23:19:53 Test Item Value Reference Range Interpretation Comments POCT GLU (test code = 115 mg/dL 70-110 H Notifi ed Provider [id number]) Lab Interpretation (test Abnormal code = 82081-2) [facility] GLUCOSE (AUTOMATED)2022-05-03 23:19:53 Test Item Value Reference Range Interpretation Comments POCT GLU (test code = 115 mg/dL 70-110 H Notifi ed Provider 7062234124) Lab Interpretation (test Abnormal code = 83132-4) [facility] GLUCOSE (AUTOMATED)2022-05-03 23:19:53 Test Item Value Reference Range Interpretation Comments POCT GLU (test code = 115 mg/dL 70-110 H Notifi ed Provider [id number]) Lab Interpretation (test Abnormal code = 25867-4) [facility] GLUCOSE (AUTOMATED)2022-05-03 16:29:24 Test Item Value Reference Range Interpretation Comments POCT GLU (test code = 86 mg/dL 70-110 Notifi ed Provider [id number]) Lab Interpretation (test Normal code = 21821-9) [facility] GLUCOSE (AUTOMATED)2022-05-03 16:29:24 Test Item Value Reference Range Interpretation Comments POCT GLU (test code = 86 mg/dL 70-110 Notifi ed Provider [id number]) Lab Interpretation (test Normal code = 39962-3) [facility] GLUCOSE (AUTOMATED)2022-05-03 16:29:24 Test Item Value Reference Range Interpretation Comments POCT GLU (test code = 86 mg/dL 70-110 Notifi ed Provider 8095024708) Lab Interpretation (test Normal code = 47465-5) [facility] GLUCOSE (AUTOMATED)2022-05-03 11:14:25 Test Item Value Reference Range Interpretation Comments POCT GLU (test code = 8700458393) 80 mg/dL 70-110 Lab Interpretation (test code = Normal 76560-5) [facility] GLUCOSE (AUTOMATED)2022-05-03 11:14:25 Test Item Value Reference Range Interpretation Comments POCT GLU (test code = 7563707960) 80 mg/dL 70-110 Lab Interpretation (test code = Normal 56068-9) [facility] GLUCOSE (AUTOMATED)2022-05-03 11:14:25 Test Item Value Reference Range Interpretation Comments POCT GLU (test code = 1498099395) 80 mg/dL 70-110 Lab Interpretation (test code = Normal 62000-8) [facility] 11:09:32 Test Item Value Reference Range Interpretation Comments PHOSPHORUS (test code = 8068399237) 2.8 mg/dL 2.5-5.0 Lab Interpretation (test code = Normal 08706-8) [facility] 11:09:32 Test Item Value Reference Range Interpretation Comments MAGNESIUM (test code = 8245411836) 2.0 mg/dL 1.7-2.4 Lab Interpretation (test code = Normal 26737-6) [facility] METABOLIC PANEL (NA, K, CL, CO2, GLUCOSE, BUN, CREATININE, CA)2022-05-03 11:09:32 Test Item Value Reference Range Interpretation Comments NA (test code = 133 mmol/L 135-145 L 9420980155) K (test code = 3.9 mmol/L 3.5-5.0 9859132578) CL (test code = 111 mmol/L 98-108 H 3947378737) CO2 TOTAL (test code = 20 mmol/L 23-31 L 9106681800) AGAP (test code = 2-16 2823053879) BUN (test code = 5 mg/dL 7-23 L 5303928941) GLUCOSE (test code = 64 mg/dL 70-110 L 9975826089) CREATININE (test code = 0.36 mg/dL 0.50-1.04 L 4866819383) CALCIUM (test code = 7.4 mg/dL 8.6-10.6 L 2123699829) eGFR (test code = mL/min/1.73m2 1996746067) PARISH (test code = PARISH) Association of [...] tests). Lab Interpretation Abnormal (test code = 13462-8) [facility] 11:09:32 Test Item Value Reference Range Interpretation Comments PHOSPHORUS (test code = 5992538614) 2.8 mg/dL 2.5-5.0 Lab Interpretation (test code = Normal 76795-8) [facility] 11:09:32 Test Item Value Reference Range Interpretation Comments MAGNESIUM (test code = 1643205605) 2.0 mg/dL 1.7-2.4 Lab Interpretation (test code = Normal 01713-5) [facility] (NA, K, CL, CO2, GLUCOSE, BUN, CREATININE, CA)2022-05-03 11:09:32 Test Item Value Reference Range Interpretation Comments NA (test code = 133 mmol/L 135-145 L 1901044038) K (test code = 3.9 mmol/L 3.5-5.0 3292705353) CL (test code = 111 mmol/L 98-108 H 7434869046) CO2 TOTAL (test code = 20 mmol/L 23-31 L 1645077434) AGAP (test code = 2-16 7201065569) BUN (test code = 5 mg/dL 7-23 L 4505440224) GLUCOSE (test code = 64 mg/dL 70-110 L 5949254766) CREATININE (test code = 0.36 mg/dL 0.50-1.04 L 8666773894) CALCIUM (test code = 7.4 mg/dL 8.6-10.6 L 0965973325) eGFR (test code = mL/min/1.73m2 2028669867) PARISH (test code = PARISH) Association of [...] tests). Lab Interpretation Abnormal (test code = 89297-2) [facility] 11:09:32 Test Item Value Reference Range Interpretation Comments PHOSPHORUS (test code = 9118927792) 2.8 mg/dL 2.5-5.0 Lab Interpretation (test code = Normal 33348-7) [facility] 11:09:32 Test Item Value Reference Range Interpretation Comments MAGNESIUM (test code = 5812056374) 2.0 mg/dL 1.7-2.4 Lab Interpretation (test code = Normal 99300-9) [facility] (NA, K, CL, CO2, GLUCOSE, BUN, CREATININE, CA)2022-05-03 11:09:32 Test Item Value Reference Range Interpretation Comments NA (test code = 133 mmol/L 135-145 L 5017902319) K (test code = 3.9 mmol/L 3.5-5.0 0477744275) CL (test code = 111 mmol/L 98-108 H 5623240047) CO2 TOTAL (test code = 20 mmol/L 23-31 L 1494974617) AGAP (test code = 2-16 7819193884) BUN (test code = 5 mg/dL 7-23 L 7029433430) GLUCOSE (test code = 64 mg/dL 70-110 L 4984581940) CREATININE (test code = 0.36 mg/dL 0.50-1.04 L 2315564494) CALCIUM (test code = 7.4 mg/dL 8.6-10.6 L 7827450028) eGFR (test code = mL/min/1.73m2 8492272290) PARISH (test code = PARISH) Association of [...] tests). Lab Interpretation Abnormal (test code = 98318-0) [facility] WITH [id number] 10:37:32 Test Item Value Reference Range Interpretation [...] (test code = 50.6 fL 39.0-49.9 H 85358-2) RDW-CV (test code = 16.4 % 12.0-15.5 H 788-0) PLT (test code = See_Comment H [Automated 777-3) message] The sy stem which generated this result transmitted reference range : 166 - 358 10*3/ ?L. The reference r meli was not used to interpret this result as normal/abnormal . MPV (test code = 9.4 fL 9.5-12.9 L 89629-0) NRBC/100 WBC (test See_Comment [Automat ed code = 0814047523) message] The system which generated this result transmitted reference range : 0.0 - 10.0 /100 WBCs. The refer ence range was not u sed to interpret th is result as normal/abnormal . NRBC x10^3 (test code See_Comment [Auto mated = 7965307068) message] The s ystem which generated this result transmitted reference range : 10*3/?L. The reference range was not used to interpret this result as normal/abnormal . GRAN MAT (NEUT) % 73.5 % (test code = 770-8) IMM GRAN % (test code 0.50 % = 6579145985) LYMPH % (test code = 15.5 % 736-9) MONO % (test code = 8.6 % 5905-5) EOS % (test code = 1.7 % 713-8) BASO % (test code = 0.2 % 706-2) GRAN MAT x10^3(ANC) 9.22 10*3/uL 1.88-7.09 H (test code = 5328574323) IMM GRAN x10^3 (test 0.06 10*3/uL 0.00-0.06 code = 7354226088) LYMPH x10^3 (test code 1.95 10*3/uL 1.32-3.29 = 731-0) MONO x10^3 (test code 1.08 10*3/uL 0.33-0.92 H = 742-7) EOS x10^3 (test code = 0.21 10*3/uL 0.03-0.39 711-2) BASO x10^3 (test code 0.03 10*3/uL 0.01-0.07 = 704-7) Lab Interpretation Abnormal (test code = 91798-1) [facility] WITH [id number] 10:37:32 Test Item Value Reference Range Interpretation Comments WBC (test code = See_Comment H [Automated 8690-2) message] The sy stem which generated this result transmitted reference range : 4.30 - 11.10 10*3/?L. The reference range was not used to interpret this result as normal/abnormal . RBC (test code = See_Comment L [Automated 759-8) message] The sy stem which generated this [...] (test code = 50.6 fL 39.0-49.9 H 92808-9) RDW-CV (test code = 16.4 % 12.0-15.5 H 788-0) PLT (test code = See_Comment H [Automated 777-3) message] The sy stem which generated this result transmitted reference range : 166 - 358 10*3/ ?L. The reference r meli was not used to interpret this result as normal/abnormal . MPV (test code = 9.4 fL 9.5-12.9 L 22439-5) NRBC/100 WBC (test See_Comment [Automat ed code = 7169401363) message] The system which generated this result transmitted reference range : 0.0 - 10.0 /100 WBCs. The refer ence range was not u sed to interpret th is result as normal/abnormal . NRBC x10^3 (test code See_Comment [Auto mated = 1780764568) message] The s ystem which generated this result transmitted reference range : 10*3/?L. The reference range was not used to interpret this result as normal/abnormal . GRAN MAT (NEUT) % 73.5 % (test code = 770-8) IMM GRAN % (test code 0.50 % = 0280037530) LYMPH % (test code = 15.5 % 736-9) MONO % (test code = 8.6 % 5905-5) EOS % (test code = 1.7 % 713-8) BASO % (test code = 0.2 % 706-2) GRAN MAT x10^3(ANC) 9.22 10*3/uL 1.88-7.09 H (test code = 1417261743) IMM GRAN x10^3 (test 0.06 10*3/uL 0.00-0.06 code = 9179865970) LYMPH x10^3 (test code 1.95 10*3/uL 1.32-3.29 = 731-0) MONO x10^3 (test code 1.08 10*3/uL 0.33-0.92 H = 742-7) EOS x10^3 (test code = 0.21 10*3/uL 0.03-0.39 711-2) BASO x10^3 (test code 0.03 10*3/uL 0.01-0.07 = 704-7) Lab Interpretation Abnormal (test code = 74601-4) [facility] WITH [id number] 10:37:32 Test Item Value Reference Range Interpretation [...] (test code = 50.6 fL 39.0-49.9 H 80801-1) RDW-CV (test code = 16.4 % 12.0-15.5 H 788-0) PLT (test code = See_Comment H [Automated 777-3) message] The sy stem which generated this result transmitted reference range : 166 - 358 10*3/ ?L. The reference r meli was not used to interpret this result as normal/abnormal . MPV (test code = 9.4 fL 9.5-12.9 L 89055-1) NRBC/100 WBC (test See_Comment [Automat ed code = 4556755163) message] The system which generated this result transmitted reference range : 0.0 - 10.0 /100 WBCs. The refer ence range was not u sed to interpret th is result as normal/abnormal . NRBC x10^3 (test code See_Comment [Auto mated = 1134169145) message] The s ystem which generated this result transmitted reference range : 10*3/?L. The reference range was not used to interpret this result as normal/abnormal . GRAN MAT (NEUT) % 73.5 % (test code = 770-8) IMM GRAN % (test code 0.50 % = 1037389679) LYMPH % (test code = 15.5 % 736-9) MONO % (test code = 8.6 % 5905-5) EOS % (test code = 1.7 % 713-8) BASO % (test code = 0.2 % 706-2) GRAN MAT x10^3(ANC) 9.22 10*3/uL 1.88-7.09 H (test code = 0648006183) IMM GRAN x10^3 (test 0.06 10*3/uL 0.00-0.06 code = 7718001423) LYMPH x10^3 (test code 1.95 10*3/uL 1.32-3.29 = 731-0) MONO x10^3 (test code 1.08 10*3/uL 0.33-0.92 H = 742-7) EOS x10^3 (test code = 0.21 10*3/uL 0.03-0.39 711-2) BASO x10^3 (test code 0.03 10*3/uL 0.01-0.07 = 704-7) Lab Interpretation Abnormal (test code = 47182-6) [facility] GLUCOSE (AUTOMATED)2022-05-03 06:13:59 Test Item Value Reference Range Interpretation Comments POCT GLU (test code = 9514857838) 64 mg/dL 70-110 L Lab Interpretation (test code = Abnormal 47324-8) [facility] GLUCOSE (AUTOMATED)2022-05-03 06:13:59 Test Item Value Reference Range Interpretation Comments POCT GLU (test code = 9962144780) 64 mg/dL 70-110 L Lab Interpretation (test code = Abnormal 57044-8) [facility] GLUCOSE (AUTOMATED)2022-05-03 06:13:59 Test Item Value Reference Range Interpretation Comments POCT GLU (test code = 0369073027) 64 mg/dL 70-110 L Lab Interpretation (test code = Abnormal 26972-2) [facility] GLUCOSE (AUTOMATED)2022-05-02 21:41:31 Test Item Value Reference Range Interpretation Comments POCT GLU (test code = 8858139377) 74 mg/dL 70-110 Lab Interpretation (test code = Normal 34272-0) [facility] GLUCOSE (AUTOMATED)2022-05-02 21:41:31 Test Item Value Reference Range Interpretation Comments POCT GLU (test code = 3865958663) 74 mg/dL 70-110 Lab Interpretation (test code = Normal 83832-0) [facility] GLUCOSE (AUTOMATED)2022-05-02 21:41:31 Test Item Value Reference Range Interpretation Comments POCT GLU (test code = 7953467439) 74 mg/dL 70-110 Lab Interpretation (test code = Normal 70003-0) [facility]CA2+[facility]-05-02 06:49:12 Test Item Value Reference Range Interpretation Comments PH (test code = 2) 7.35-7.45 PCO2 (test code = See_Comment L [Automate d message] 3214768310) The system [employer] generated this result transmit palma reference range : 35 - 45 mmHg. The reference range was not used to interpret this result as normal/abnormal . PO2 (test code = See_Comment H [Automated message] 3769511132) The system [employer] generated this result transmit palma reference range : 80 - 100 mmHg. The reference range was not used to interpret this result as normal/abnormal . HCO3 (test code = See_Comment L [Automate d message] 3190262837) The system [employer] generated this result transmit palma reference range : 22 - 26 mEq/L. The reference range was not used to interpret this result as normal/abnormal . BE (test code = See_Comment L [Automated message] 2053028843) The system [employer] generated this result transmit palma reference range : -3.0 - 3.0 mEq/ L. The reference r meli was not used to interpret this result as normal/abnormal . THB (test code = 8.2 g/dL 12.0-16.0 LL 3264893814) %O2HB (test code = 98.7 % 94.0-99.0 3246043119) %COHB ART (test code = 0.8 % 0.0-1.5 5498004339) %METHB ART (test code = 0.2 % 0.4-1.5 L 6938596893) VOL%O2 ART (test code = 12.0 % 15.0-23.0 L 6261799191) NA (test code = 135 mmol/L 135-145 2721179873) K+ (test code = 3.3 mmol/L 3.5-5.0 L 5772202393) AC CA IONZ (test code = 4.40 mg/dL 4.50-5.30 L 9315209488) GLUCOSE (test code = 97 mg/dL 70-110 6908680941) Lab Interpretation Abnormal (test code = 20246-6) [facility]CA2[facility]05-02 06:49:12 Test Item Value Reference Range Interpretation Comments PH (test code = 2) 7.35-7.45 PCO2 (test code = See_Comment L [Automate d message] 6492268580) The system [employer] generated this result transmit palma reference range : 35 - 45 mmHg. The reference range was not used to interpret this result as normal/abnormal . PO2 (test code = See_Comment H [Automated message] 6305642244) The system [employer] generated this result transmit palma reference range : 80 - 100 mmHg. The reference range was not used to interpret this result as normal/abnormal . HCO3 (test code = See_Comment L [Automate d message] 7042018448) The system [employer] generated this result transmit palma reference range : 22 - 26 mEq/L. The reference range was not used to interpret this result as normal/abnormal . BE (test code = See_Comment L [Automated message] 4740394034) The system [employer] generated this result transmit palma reference range : -3.0 - 3.0 mEq/ L. The reference r meli was not used to interpret this result as normal/abnormal . THB (test code = 8.2 g/dL 12.0-16.0 LL 6390662542) %O2HB (test code = 98.7 % 94.0-99.0 7727362910) %COHB ART (test code = 0.8 % 0.0-1.5 0672081327) %METHB ART (test code = 0.2 % 0.4-1.5 L 8829588117) VOL%O2 ART (test code = 12.0 % 15.0-23.0 L 7021330405) NA (test code = 135 mmol/L 135-145 0751472607) K+ (test code = 3.3 mmol/L 3.5-5.0 L 5987469604) AC CA IONZ (test code = 4.40 mg/dL 4.50-5.30 L 8098838775) GLUCOSE (test code = 97 mg/dL 70-110 6467439967) Lab Interpretation Abnormal (test code = 84450-4) [facility]CA2+[facility]-05-02 06:49:12 Test Item Value Reference Range Interpretation Comments PH (test code = 2) 7.35-7.45 PCO2 (test code = See_Comment L [Automate d message] 4021742226) The system [employer] generated this result transmit palma reference range : 35 - 45 mmHg. The reference range was not used to interpret this result as normal/abnormal . PO2 (test code = See_Comment H [Automated message] 6272355576) The system [employer] generated this result transmit palma reference range : 80 - 100 mmHg. The reference range was not used to interpret this result as normal/abnormal . HCO3 (test code = See_Comment L [Automate d message] 1424036075) The system [employer] generated this result transmit palma reference range : 22 - 26 mEq/L. The reference range was not used to interpret this result as normal/abnormal . BE (test code = See_Comment L [Automated message] 1080846771) The system [employer] generated this result transmit palma reference range : -3.0 - 3.0 mEq/ L. The reference r meli was not used to interpret this result as normal/abnormal . THB (test code = 8.2 g/dL 12.0-16.0 LL 7074643449) %O2HB (test code = 98.7 % 94.0-99.0 6949117882) %COHB ART (test code = 0.8 % 0.0-1.5 4672776859) %METHB ART (test code = 0.2 % 0.4-1.5 L [id number]) VOL%O2 ART (test code = 12.0 % 15.0-23.0 L 8640037679) NA (test code = 135 mmol/L 135-145 9557487603) K+ (test code = 3.3 mmol/L 3.5-5.0 L 0512696698) AC CA IONZ (test code = 4.40 mg/dL 4.50-5.30 L 1233611792) GLUCOSE (test code = 97 mg/dL 70-110 7405599781) Lab Interpretation Abnormal (test code = 23986-2) [facility] GLUCOSE (AUTOMATED)2022-05-01 23:26:08 Test Item Value Reference Range Interpretation Comments POCT GLU (test code = [id number]) 89 mg/dL 70-110 Lab Interpretation (test code = Normal 45780-1) [facility] GLUCOSE (AUTOMATED)2022-05-01 23:26:08 Test Item Value Reference Range Interpretation Comments POCT GLU (test code = [id number]) 89 mg/dL 70-110 Lab Interpretation (test code = Normal 86926-0) [facility] GLUCOSE (AUTOMATED)2022-05-01 23:26:08 Test Item Value Reference Range Interpretation Comments POCT GLU (test code = 4862185030) 89 mg/dL 70-110 Lab Interpretation (test code = Normal 40604-5) [facility] GLUCOSE (AUTOMATED)2022-05-01 23:06:28 Test Item Value Reference Range Interpretation Comments POCT GLU (test code = 9815506108) 78 mg/dL 70-110 Lab Interpretation (test code = Normal 15771-8) [facility] GLUCOSE (AUTOMATED)2022-05-01 23:06:28 Test Item Value Reference Range Interpretation Comments POCT GLU (test code = 2672186932) 78 mg/dL 70-110 Lab Interpretation (test code = Normal 53092-1) [facility] 23:06:28 Test Item Value Reference Range Interpretation Comments POCT GLU (test code = 3462077548) 78 mg/dL 70-110 Lab Interpretation (test code = Normal 40515-7) [facility] METABOLIC PANEL (NA, K, CL, CO2, GLUCOSE, BUN, CREATININE, CA)2022-05-01 09:30:04 Test Item Value Reference Range Interpretation Comments NA (test code = 137 mmol/L 135-145 3948470633) K (test code = 3.5 mmol/L 3.5-5.0 8403872167) CL (test code = 114 mmol/L 98-108 H 7421137317) CO2 TOTAL (test code = 22 mmol/L 23-31 L 3206480146) AGAP (test code = 2-16 L 0827326790) BUN (test code = 6 mg/dL 7-23 L 2133363060) GLUCOSE (test code = 103 mg/dL 70-110 3138732416) CREATININE (test code = 0.39 mg/dL 0.50-1.04 L 0332060187) CALCIUM (test code = 7.2 mg/dL 8.6-10.6 L 9634022820) eGFR (test code = mL/min/1.73m2 0234657513) PARISH (test code = PARISH) Association of [...] tests). Lab Interpretation Abnormal (test code = 40314-6) [facility] 09[facility]30[facility]04 Test Item Value Reference Range Interpretation Comments MAGNESIUM (test code = 9249028555) 1.9 mg/dL 1.7-2.4 Lab Interpretation (test code = Normal 57969-7) [facility] 09:30:04 Test Item Value Reference Range Interpretation Comments PHOSPHORUS (test code = 5717871271) 2.9 mg/dL 2.5-5.0 Lab Interpretation (test code = Normal 57956-5) [facility]26628[facility] (ALB,T.PRO,BILI T,BU/BC,ALT,AST,ALK PHOS)2022-05-01 09:30:04 Test Item Value Reference Range Interpretation Comments TOTAL BILI (test code = 4035340274) 0.2 mg/dL 0.1-1.1 BILI UNCON (test code = 5221336849) 0.0 mg/dL 0.1-1.1 L BILI CONJ (test code = 0111553589) 0.0 mg/dL 0.0-0.3 T PROTEIN (test code = 3235433983) 5.6 g/dL 6.3-8.2 L ALBUMIN (test code = 2891429655) 2.2 g/dL 3.5-5.0 L ALK PHOS (test code = 8136857393) 82 U/L 34-122 ALTv (test code = 1742-6) 13 U/L 5-35 AST(SGOT) (test code = 2722169243) 32 U/L 13-40 Lab Interpretation (test code = Abnormal 21143-7) [facility] METABOLIC PANEL (NA, K, CL, CO2, GLUCOSE, BUN, CREATININE, CA)2022-05-01 09:30:04 Test Item Value Reference Range Interpretation Comments NA (test code = 137 mmol/L 135-145 6077258742) K (test code = 3.5 mmol/L 3.5-5.0 0600791590) CL (test code = 114 mmol/L 98-108 H 7367388071) CO2 TOTAL (test code = 22 mmol/L 23-31 L 9344634746) AGAP (test code = 2-16 L 8582590541) BUN (test code = 6 mg/dL 7-23 L 2879606255) GLUCOSE (test code = 103 mg/dL 70-110 1609337702) CREATININE (test code = 0.39 mg/dL 0.50-1.04 L 0743057602) CALCIUM (test code = 7.2 mg/dL 8.6-10.6 L 9563816618) eGFR (test code = mL/min/1.73m2 9177777382) PARISH (test code = PARISH) Association of [...] tests). Lab Interpretation Abnormal (test code = 00777-2) [facility] 09[facility]30:04 Test Item Value Reference Range Interpretation Comments MAGNESIUM (test code = 4648864137) 1.9 mg/dL 1.7-2.4 Lab Interpretation (test code = Normal 96956-3) [facility] 09:30:04 Test Item Value Reference Range Interpretation Comments PHOSPHORUS (test code = 9213864875) 2.9 mg/dL 2.5-5.0 Lab Interpretation (test code = Normal 49021-0) [facility]31030[facility] (ALB,T.PRO,BILI T,BU/BC,ALT,AST,ALK PHOS)2022-05-01 09:30:04 Test Item Value Reference Range Interpretation Comments TOTAL BILI (test code = 1729319073) 0.2 mg/dL 0.1-1.1 BILI UNCON (test code = 0757257014) 0.0 mg/dL 0.1-1.1 L BILI CONJ (test code = 4589473014) 0.0 mg/dL 0.0-0.3 T PROTEIN (test code = 7343576188) 5.6 g/dL 6.3-8.2 L ALBUMIN (test code = 2261859759) 2.2 g/dL 3.5-5.0 L ALK PHOS (test code = 9953403269) 82 U/L 34-122 ALTv (test code = 1742-6) 13 U/L 5-35 AST(SGOT) (test code = 9146209993) 32 U/L 13-40 Lab Interpretation (test code = Abnormal 97225-3) [facility] (NA, K, CL, CO2, GLUCOSE, BUN, CREATININE, CA)2022-05-01 09:30:04 Test Item Value Reference Range Interpretation Comments NA (test code = 137 mmol/L 135-145 1916090238) K (test code = 3.5 mmol/L 3.5-5.0 2276851587) CL (test code = 114 mmol/L 98-108 H 0957600024) CO2 TOTAL (test code = 22 mmol/L 23-31 L 6214397341) AGAP (test code = 2-16 L 6556231466) BUN (test code = 6 mg/dL 7-23 L 0335733923) GLUCOSE (test code = 103 mg/dL 70-110 2380359861) CREATININE (test code = 0.39 mg/dL 0.50-1.04 L 8191144076) CALCIUM (test code = 7.2 mg/dL 8.6-10.6 L 1261160230) eGFR (test code = mL/min/1.73m2 0210478285) PARISH (test code = PARISH) Association of [...] tests). Lab Interpretation Abnormal (test code = 27763-9) [facility] 09:30:04 Test Item Value Reference Range Interpretation Comments MAGNESIUM (test code = 2602324038) 1.9 mg/dL 1.7-2.4 Lab Interpretation (test code = Normal 90058-7) [facility] 09:30:04 Test Item Value Reference Range Interpretation Comments PHOSPHORUS (test code = 5459526234) 2.9 mg/dL 2.5-5.0 Lab Interpretation (test code = Normal 08802-1) [facility] (93697) (ALB,T.PRO,BILI T,BU/BC,ALT,AST,ALK PHOS)2022-05-01 09:30:04 Test Item Value Reference Range Interpretation Comments TOTAL BILI (test code = 1299853231) 0.2 mg/dL 0.1-1.1 BILI UNCON (test code = 0621788912) 0.0 mg/dL 0.1-1.1 L BILI CONJ (test code = 0409630016) 0.0 mg/dL 0.0-0.3 T PROTEIN (test code = 3212018824) 5.6 g/dL 6.3-8.2 L ALBUMIN (test code = 9983588496) 2.2 g/dL 3.5-5.0 L ALK PHOS (test code = 3032889549) 82 U/L 34-122 ALTv (test code = 1742-6) 13 U/L 5-35 AST(SGOT) (test code = 0339545673) 32 U/L 13-40 Lab Interpretation (test code = Abnormal 61702-4) [facility] WITH [id number] 09:08:20 Test Item Value Reference Range Interpretation Comments WBC (test code = See_Comment H [Automated 2790-2) message] The sy stem which generated this result transmitted reference range : 4.30 - 11.10 10*3/?L. The reference range was not used to interpret this result as normal/abnormal . RBC (test code = See_Comment L [Automated 859-8) message] The sy stem which generated this [...] (test code = 52.8 fL 39.0-49.9 H 42280-4) RDW-CV (test code = 16.8 % 12.0-15.5 H 788-0) PLT (test code = See_Comment H [Automated 777-3) message] The sy stem which generated this result transmitted reference range : 166 - 358 10*3/ ?L. The reference r meli was not used to interpret this result as normal/abnormal . MPV (test code = 9.7 fL 9.5-12.9 32830-1) NRBC/100 WBC (test See_Comment [Automat ed code = 0080490983) message] The system which generated this result transmitted reference range : 0.0 - 10.0 /100 WBCs. The refer ence range was not u sed to interpret th is result as normal/abnormal . NRBC x10^3 (test code See_Comment [Auto mated = 3541938399) message] The s ystem which generated this result transmitted reference range : 10*3/?L. The reference range was not used to interpret this result as normal/abnormal . GRAN MAT (NEUT) % 70.8 % (test code = 770-8) IMM GRAN % (test code 0.50 % = 1013056325) LYMPH % (test code = 15.1 % 736-9) MONO % (test code = 9.6 % 5905-5) EOS % (test code = 3.8 % 713-8) BASO % (test code = 0.2 % 706-2) GRAN MAT x10^3(ANC) 9.13 10*3/uL 1.88-7.09 H (test code = 1909291698) IMM GRAN x10^3 (test 0.06 10*3/uL 0.00-0.06 code = 4787448748) LYMPH x10^3 (test code 1.94 10*3/uL 1.32-3.29 = 731-0) MONO x10^3 (test code 1.23 10*3/uL 0.33-0.92 H = 742-7) EOS x10^3 (test code = 0.49 10*3/uL 0.03-0.39 H 711-2) BASO x10^3 (test code 0.01-0.07 = 704-7) Lab Interpretation Abnormal (test code = 54176-8) [facility] WITH [id number] 09:08:20 Test Item Value Reference Range Interpretation [...] (test code = 52.8 fL 39.0-49.9 H 50425-1) RDW-CV (test code = 16.8 % 12.0-15.5 H 788-0) PLT (test code = See_Comment H [Automated 777-3) message] The sy stem which generated this result transmitted reference range : 166 - 358 10*3/ ?L. The reference r meli was not used to interpret this result as normal/abnormal . MPV (test code = 9.7 fL 9.5-12.9 53223-6) NRBC/100 WBC (test See_Comment [Automat ed code = 6749039373) message] The system which generated this result transmitted reference range : 0.0 - 10.0 /100 WBCs. The refer ence range was not u sed to interpret th is result as normal/abnormal . NRBC x10^3 (test code See_Comment [Auto mated = 0857666694) message] The s ystem which generated this result transmitted reference range : 10*3/?L. The reference range was not used to interpret this result as normal/abnormal . GRAN MAT (NEUT) % 70.8 % (test code = 770-8) IMM GRAN % (test code 0.50 % = 9692719004) LYMPH % (test code = 15.1 % 736-9) MONO % (test code = 9.6 % 5905-5) EOS % (test code = 3.8 % 713-8) BASO % (test code = 0.2 % 706-2) GRAN MAT x10^3(ANC) 9.13 10*3/uL 1.88-7.09 H (test code = 9048380659) IMM GRAN x10^3 (test 0.06 10*3/uL 0.00-0.06 code = 8048942527) LYMPH x10^3 (test code 1.94 10*3/uL 1.32-3.29 = 731-0) MONO x10^3 (test code 1.23 10*3/uL 0.33-0.92 H = 742-7) EOS x10^3 (test code = 0.49 10*3/uL 0.03-0.39 H 711-2) BASO x10^3 (test code 0.01-0.07 = 704-7) Lab Interpretation Abnormal (test code = 64825-0) [facility] WITH [id number] 09:08:20 Test Item Value Reference Range Interpretation [...] (test code = 52.8 fL 39.0-49.9 H 99507-3) RDW-CV (test code = 16.8 % 12.0-15.5 H 788-0) PLT (test code = See_Comment H [Automated 777-3) message] The sy stem which generated this result transmitted reference range : 166 - 358 10*3/ ?L. The reference r meli was not used to interpret this result as normal/abnormal . MPV (test code = 9.7 fL 9.5-12.9 90327-9) NRBC/100 WBC (test See_Comment [Automat ed code = 3609158946) message] The system which generated this result transmitted reference range : 0.0 - 10.0 /100 WBCs. The refer ence range was not u sed to interpret th is result as normal/abnormal . NRBC x10^3 (test code See_Comment [Auto mated = 4371625967) message] The s ystem which generated this result transmitted reference range : 10*3/?L. The reference range was not used to interpret this result as normal/abnormal . GRAN MAT (NEUT) % 70.8 % (test code = 770-8) IMM GRAN % (test code 0.50 % = 8136577493) LYMPH % (test code = 15.1 % 736-9) MONO % (test code = 9.6 % 5905-5) EOS % (test code = 3.8 % 713-8) BASO % (test code = 0.2 % 706-2) GRAN MAT x10^3(ANC) 9.13 10*3/uL 1.88-7.09 H (test code = 5619646431) IMM GRAN x10^3 (test 0.06 10*3/uL 0.00-0.06 code = 8109982535) LYMPH x10^3 (test code 1.94 10*3/uL 1.32-3.29 = 731-0) MONO x10^3 (test code 1.23 10*3/uL 0.33-0.92 H = 742-7) EOS x10^3 (test code = 0.49 10*3/uL 0.03-0.39 H 711-2) BASO x10^3 (test code 0.01-0.07 = 704-7) Lab Interpretation Abnormal (test code = 35587-6) [facility] GLUCOSE (AUTOMATED)2022-04-30 23:31:23 Test Item Value Reference Range Interpretation Comments POCT GLU (test code = 2420018092) 80 mg/dL 70-110 Lab Interpretation (test code = Normal 95181-9) [facility] GLUCOSE (AUTOMATED)2022-04-30 23:31:23 Test Item Value Reference Range Interpretation Comments POCT GLU (test code = 9365168038) 80 mg/dL 70-110 Lab Interpretation (test code = Normal 79369-5) [facility] GLUCOSE (AUTOMATED)2022-04-30 23:31:23 Test Item Value Reference Range Interpretation Comments POCT GLU (test code = 9708648657) 80 mg/dL 70-110 Lab Interpretation (test code = Normal 99912-0) [facility] [id number] 22:37:11 Test Item Value Reference Range Interpretation Comments TSH (test code = See_Comment H Biotin has been 0048508283) reported to cau se a negative bias, interpret resul ts relative to pat ient's use of biotin. [Automated mess age] The system [employer] generated this result transmitted ref erence range: 0.45 - 4 .70 mIU/L. The refe rence range was not u sed to interpret this result as normal/abnor mal. Lab Interpretation (test Abnormal code = 96860-9) [facility] [id number] 22:37:11 Test Item Value Reference Range Interpretation Comments TSH (test code = See_Comment H Biotin has been 7941832780) reported to cau se a negative bias, interpret resul ts relative to pat ient's use of biotin. [Automated mess age] The system [employer] generated this result transmitted ref erence range: 0.45 - 4 .70 mIU/L. The refe rence range was not u sed to interpret this result as normal/abnor mal. Lab Interpretation (test Abnormal code = 79157-5) [facility] [id number] 22:37:11 Test Item Value Reference Range Interpretation Comments TSH (test code = See_Comment H Biotin has been 1875504284) reported to cau se a negative bias, interpret resul ts relative to pat ient's use of biotin. [Automated mess age] The system [employer] generated this result transmitted ref erence range: 0.45 - 4 .70 mIU/L. The refe rence range was not u sed to interpret this result as normal/abnor mal. Lab Interpretation (test Abnormal code = 96010-6) [facility] [id number] 18:57:43 Test Item Value Reference Range Interpretation Comments Case Report (test Surgical Pathology ? code = 6598431361) ?Case: [id number] ? Authorizing Provider: ?Linda Hopkins MD ?Collected: ? 04/27/20222018 ?Ordering Location: ? ? [facility] ? ? Received: ?04/27/20222154 ? Center ? Pathologist: ? Keri Guptain, PhD ?Specimen: ? ?LARGE INTESTINE, SIGMOID COLON, sigmoid colon, stitch is distal ? Final Diagnosis f0jzeBZlGIVpy2koEIDblDUeZzI (test code = wMzNcZnRuYmpcdWMxIHtccnRmMV 6108903174) hyrCatKZGjTRUyGG0qxMrmsWd6b DhlVEVccsV3hTZgXBray0zxTFT2 g3bjfkvfJSAxRJofHl9wlYSyzFu wVtHyJRPcWAx3rC28HZNndE5ivJ IbLRu7XCOfbNJhauDpKnEsMMIyn SQdoDS6MQFfTG8ugmlzYZsgGMrr CYJncgK1QRVrnFQiV0SwKJTnFV7 wswtsKEH3MIhuSGBxAGK7QeXbZH Jrf8Zjpoo8CgZtjOGsKWvihGRpm lxmczIwXHBhciBBLiBMQVJHRSBJ OpXLS3ASHrGzHGZHO00FBHUfN71 EC79oOTWZO4HMDUzFBpgeuXZwCF AgICAtIERJVkVSVElDVUxJVElTI MtWCSplS9HKE4CQGRiOZURovqYg ZUSmUMROFEDKL0KOA53oOXPVL4d OUyBBUkUgVklBQkxFXHBhclxwYX JcZnMyMiBKdWFuIENhcmxvcyBBb QVsgnX6PR4pkyOwnazoCUVpFFQj LsE0NsQiBcUoJHL7KtLiCT0frMZ pOPPpAgPgBQgwHTD0m0pljTHiEZ RmuOCmFuFbTUBzAJXfu7lmTBVze GFuZzEwMzNcZnRuYmpcdWMxXGRl QbHye1eiu742uQDdd1ukUHKoFbE 9mRMcQDPyeVvcjxo1bYpqFkPyRP Hgg2phewAsNyCaUOGwRRJaHSQnt EWdH574KAKsIKcvf0yic8QhJIQs vKHwf4X3GAPIDPcbIxNyY249i4i pz5auriQisUV4IAZfZGZ7UMyeld JxeiS0EGueaBBtCiF2PFgaylLfZ LxozwWypoKeKbt6JUMgF861YTP6 vLewv6yvWWW9BWVdSXObMdbeFb5 deDAkH684VVJtFRDACJQkpDa5UM GgseLfwlNdsIWNp144D486v8ykA WOhwoPlfRzBcgfio8mjP671SIJs aXKmrbAfBuKlXCVyhAGsvWU4TMY nOR9mvfghFEbzFBqbOSVhvcI4FN NgrGSlR8RuRJDwJC7mvhsyWXT0T TjzBUFsXXP6RfMyZCEtc8Gclln3 VuMbfn0ekx24YLL8u7NkfEjaJDG 4LYN4KdTeHs5cfGWdIZVuAJ7oUv GkhDFcLZVrsd33fJccBWpiigArq E4sZwWqTLCjmNFpBSHzJY1bbSTw OBAgnP4egtedNIEqExOrzszaVKY plDhvhyXuSy7hbUruBDS1MAdhZ3 cpwS7cKjA4TNlpN9veeA5pGIi7O YkdkVJ2NUCbpS9vBZ9bynkes2kt GKafGRxbXAQwzoP8akH9MDBtmGJ zN9NslA0eEGDjYA0hopyht2nuTK Y7UJfmCCGdPYP4OjXvKZCqn9Ikl ve9OvSjv9FlsMGlULhaL27mc395 MTMgegLdF6kpdNRvqmaauFRmokf nSAjxnuQ1WRViFGVzFZhvQWSsDZ ZzMjBcbGFuZzEwMzNcaGljaFxmM JpzEwZzGMMcOQzaV3axEfPbB7Jb YKFiKaNdtTMrSXvkiHI3MQYrOOO oi94oiCf6EDIqnszid1QnFAMvfW KxgXHiiE6uzeEku2xnCMOrLBVxY LYnP0HgDCT9fGOjKKEmhPCfxBU0 KP7yacWoOH9oPOIdXtalrzQjfIQ wtyHvRMUoKMcjm5hcWY7dFWNitX rzkA4drAI4RYMkn5fuuOGxyONmx 4iwy3HitsGxAOpzZYQzUFtbZNWy DYFxEE2eFDGokYOptqTka0L6Hni rqMNykmevSdabziD9JRpsttvzEN VkUJglA0fiJsSbMOQesHnhSozqe 3OuTKZmEHOaUrikqWFrnR2= Clinical Layne Carvalho is a 72 Information (test year old code = 2934695157) femaleDiverticulitis large intestine w/o perforation or abscess w/bleeding [K57.33] Gross Description v8hjvMEuCWPhaOWuWFXdE0qkwdA (test code = dCBKjwLHxC8JlesndVHqmUD6vLH 8513378701) 4pdCsniIVrbHAvTRBzTlRev5ocf 062gCHog7zbAQOQbozpyZs6aHew J27fv2W5BzapQ41xpUPiSWF1UQN jZMLdyNHyUYXzRVP1CMXkyRJvI5 gmNZZnAE8xcgmcTSqsXCplFKVhr GI4FZPspNMhZ9UbGEFcJMneGMWe xzx4HbUoJq9prLPtgGypROnjOgv tjLiua4LynVPiCGphOALmUGBjFH glmjodBCw1DTTvFWvlwZAqCW6hl KciBptjqItld5EvyRDmGFgoPAMo DHYgYFqfPVIiJ1OUCRTyXsc9VHv 0UBFoDYv5HYbbX0XYYXNkZUUiTv D2XAQnXhG5TPi0JFVJEy5gPSY4U CJ9OKyrSGN9GPIeLJZrOHDuXhTl XGZsIFxcZiBBcmlhbCBcXGZzIDE eVRhupsO9OCJmblHlmZoqyC3wTk MiTRCBLPMCOP5IGtBOHINgiymjh zIyIFNwZWNpbWVuIEEgaXMgcmVj BZn0LKQbgH9tXs6oeFOpaC6tgTE eOMqgNMFuv8u0nBI8nJTduMH3mD LbxPypNlIwAT7ceTEnXJQRPA14j XXavzCgITMnJJZfEFZlloLpl3Gr zrRhSSHxN85mxSAxA13zk28uEVK nM50uoSEiP26ft21kLTE0cBJmyK QfxhUfbET1KJmdS5B4UQveFRDmd oAuX27pp1spgXLmb2LxLGO8OE4f cBhkxyDnYWVgLDSth6zevLClXNa vSQ56FRxtTp70MLLvLWpoACbbfj s6hRMbuPAeZaPyJa54ZSPhPNnmF ZCpMG6mnJEeMR1mOLPlEQTuYTwh BPAkw5GtpZXvHXD2MBKdFU5gHGH cd9zjiwM0gN7kOMXll1HcbZ0pQN WnYDMhZKWwr2CxrEQxmgMxXSQfN KUiARIoc9DxZZMhtDn7I1zcZNMv TZHrE7Kwt1i4pQYlrHXls4AlKJq gYeA4KU3faGZudO82UXN8sRJzfC GgYNBnMZUsiMIgub1gNYXjJMVsy y54oR1aeNXsKADgwP3wTQ7gXSDx GcAlE28hIiXbxLH0xLOuYWeqwYO sJK3wtazcsb9yKFPkVCYftFCeiC 4nlbAzlsQqsBShZSMidM4cwbR4E VSeMUWqaVJ7XO65OUn1pSWoVTSt hUqlTFS6uKTsHLLgxkgrXuOza33 wFv3liWKkRJHsS7IbLK7dnHTabO IsAeNeUUxaPF20W22aBLPoksUms DC0oNXuIVJlFELqhjcokTAtSCGf BHCjluo9aQKgENBftSCiBK2fGPv eHMTsyGDqk4QcwBWoGp7rWV49qL RpcGxlIGRpdmVydGljdWxhLCAxI Q1eXUmrrLPpTDdpFXDmoXdiEOT5 cWWqBHPrqbswAqPmw85mZeliT6z yGlDiIPjvuKJ8JQYsCPmxPJXWyx GxGVOdXDkyAEdrv5HhpQxtrECqu sDcYbdkGI6mNTNjeHTet0PsaBK6 oXMbLIGsB0Vki18vQPNlDDSptZX vrIF4BEJmeW7kYBEiCMMwBKaniu QiqLnjHRAOCAM5oH2eZODnKVE9W SfruuPfAGK8IWFks4FrwDIiBNJa mN9iBWTvHUYiL1CrXCBywFnxYCj 9CBlbvxAoYJX1NCKoa7lmuHKjNK 5ohqyclhokTM6zBkEcHLjgGD70v YLahSckmEYaSYZhPeZSeLT0ylJm DRJoYfMpeJzpbkJkvuYjCD93KXP vezEvyLPbKAB2ImVLrGHbgvGbL9 MjLGSgrJydNPPeq9t8cCJrKTTlT BLsy3uqMYXuG3MoUA4kyCRfhHVv HIAhhrZXVVknYRj6DIP4sTN3cBG uJOJvlTMyk5MzcOJ0sFNvTRUyai MSGyfuVKQwk3WlTNIlCQAtFCDvc qZunEv8DGfiwH2hMUWdabXNtBkv BFRER7pecVXuJYwkTOGSJUtFP4R DFJieFWIxT6RuG6BfthK4n1xfnC czu0ThiOHiMB3igTOirK== Disclaimer (test q3odmAVdABBso1beZZXzjZHjCeW code = [id number]) wMzNcZnRuYmpcdWMxIHtccnRmMV vrr8CvL5JsViIqACeicjTqAIYbT gzpedcwJDCbHEX3oyCkYZNzDNrn LCNwCJjyIv9lhRBczJikWeZtMMS eh4xcozKBJTgyHbUtV005MFFcVD ljo2zob4MxHWGhgAVbr4O8MNANy iujjId0uUhvS46nr7Q0HcgyI8md BVZvLLSiP0GkBY8vQTMnUlb3VJN 1FIW9LGPnQQTxX6HcNE6eXVGsnN UwORj0q6dtfBmgBSPjRLG6n5loW MdxbyQxGJ5gkv7cdRs8e1uizeWs KTBxEYSbgCMPTUWlB7YayFaeBb1 mlUd9pSnoAnubPIP3Vtr6CM7yun 32hmc5oWfcAKOnuolrAoW9WHxbQ KHdriwxAVf4UFnzJBBptVW7ICLu pYUgR9HxBAJxHF6ouqm8CNO7YCu kJRXiJaO6WOQosPEuTJQvxBzgJF ybk827YSM5RvVqLZ1cB7Qje6H1u E0gpQYfKLJhtLAxTwBaBINknd3q oDXqCQagu7AzAVY8ydT3rMMzoAD uYPAiSE67Flgsr5XvTbkdq1OtT4 0tbBM9JBari3gkQU0xQmL9uxZhA Kprr5tuuN5pRhL0MCamEV1dLV3e IUQttU0tqfpjYZJtQlEgctnbPWI fiNephxKaDd5mpZmcYGQ8CHdwP1 cziD7rOmF9OIoqC9wbxB9fHQw2C AowrZJ8KPJifG5jQP2sekkib1gz XRdcXPcsNAHzftI0eoI0QYJjsAD oS4IdcS0kUZLqZZ1yzkram8ybLT Q1XHtiWYKgUSD8BuWfBUMsw8Arc py7NgOsa6RcsFOxTZqnF95ca152 IIFmsjEmS7apyDOmxllovRXhoen dPQhbdcH3FMEelwEdu8PoTSJrCS R5PGhuNZzifRBwJTVxjMelk9sqB 3RscGFyXHBsYWluXGYxXGZzMjBc bGFuZzEwMzNcaGljaFxmMVxkYmN dTOSuMAxhH4bzWyJtL7VcTUZkNy MfpHRcB1kyZUkvzjWvPHTyytTiq UX6ZQprG9j3AJNqevFkrGx6mhGs JqTsYBJhOQF6VFckoHPhSPAtq0H yrxyrpMTsGs8xpTZkSQThhR3yDD IyUYHhPAbqCL6dcRv8XFYEgBQbo VBtGmJSGQDxXL32tnZeJTMWeozz u9O0AYwmEQIwe9BrgIMwU4nzv9O dNMMmg80qVL1nu4L2l3urRSN0ZS 0jz2AzLIWnfPYteVMtKDYtl9Zwp kdjg3MyBDUaqvLui9UeKYCljnRx oZIbZHMcahJuxr8hfwRgUWZxTQM pS6AisqfjaHmqewVrEYCnzt8imv NhFUE9VQATADJmDHBak2IncG2ol NRECGF6sGNvxt2ciwKJuEPfOGBu fp91ZQDdGJ4jZ7jfNUOhUEAsdvU urSIue9MgZRYhyHI5uUSnBX0PUp PAp04vCLSbWJYPyuCmHZHhxZxrn FZ0ccW9qV6xQHoUMQReDfq+IFRo EXCFNKXiKC1mfbOrh9HqgeMopZh eZKOvmMNif8EqmXTvy8LqmWrkm1 HauPHwaTYiET2wILMnhalvGYNfB GNGMqVKGJPdmeN1c0UbCFJqCSHp IVM1cDbezsx3FAQfsL6mCVHjT5i sbjptBOlkOSOol4HaaO6zqYPPfD Xvt6KcmVErdSNZhWTrWD3yrmKuW CkXHXjPLXM4nuDqQVHwx3LnMNsi C9rkW12ncTjdhWs2xWV1NUT1hN1 nLlx+IFxwYXJccGFyIEFwcHJvcH GzESJaeDoysgJgF0MsrePziW7um IJijnIhMY0eGU3jK1O9lUXiIKId jxNmb8cmZJtkmjNcGpMgegKiZMF hQFwiEHOet9UeXBzgNJU7NWwqyp BpbmNsdWRpbmcgSCZFLCBTcGVja RJiFOW6UMyokkZmhlBlYU6unP2d aJwprI1noBCqsYN2cjteIKCmDBT zuFyoBSPcJE0awVHpNYHgdiNXjP mgqNPmrB6dC9FqCRLhHDHdeb3nD ERjeN0aBSvci3LsfbuoKMYuMCJa BODqypAoca1xOCCezIPXHR5YPOp rsXZmu7XtlnPqT0vCXBH9ZVZoPg VuHwlqZNRabBStgADoLONyru37C JWraT7tkSksKBKcbT1zpX5veGwk uY0iWfBjBkYdOAojIZ0vDXVbZ8z yyQXtCDFuKIYtX0ldDqBizJ3unU ppTVcnSdSqHjWqMWxhQUK6fS== Embedded Images (test code = [id number]) [facility] CVLD3221-41-15 18:57:43 Test Item Value Reference Range Interpretation Comments Case Report (test Surgical Pathology ? code = [id number]) ?Case: [id number] ? Authorizing Provider: ?Lnida Hopkins MD ?Collected: ? 04/27/2022 2019 ?Ordering Location: ? ? [facility] ? ? Received: ?04/27/2022 2155 ? Center ? Pathologist: ? Gary Gupta MD PhD ?Specimen: ? ?LARGE INTESTINE, SIGMOID COLON, sigmoid colon, stitch is distal ? Final Diagnosis o5qsyXYjXIYzh7uiHVPfzZUjGyG (test code = wMzNcZnRuYmpcdWMxIHtccnRmMV [id number]) qqtMuzEUNnFLHeSW0rxAsqeDe8o SbwYOBkbqL3fYMuRVndh8nnEPJ3 y3hntdipNBMmHFxvNv2srMFqlYd kYlIoBZXuTBb4mJ81XTLxaP0phD VcVAp9SDQobSSqljVqAtPqZASzx DDkuHA5WNXoHN4vnfksDRicCDik SWKjpnD7CZGhdDKwR4UsYGJhDD9 pbspxKSP6QUwjTDZfJSN1BkLlNB Pkt7Ezakg8UnHikLJuXTprmACud lxmczIwXHBhciBBLiBMQVJHRSBJ TuWCC5YSUyYbKKQXR39QWHAwI26 EH76lJMTRV2RBFAzLImigdFNzBO AgICAtIERJVkVSVElDVUxJVElTI EsDXGumX3NGD5PSJFuEDPQujtSl MRMaWZJEIFGYP2QHS56zYTKWT7c OUyBBUkUgVklBQkxFXHBhclxwYX JcZnMyMiBKdWFuIENhcmxvcyBBb LKgdyH6SR4ufzCaaoccEBQtTOEz QlK2FmEuDeHePIB1FnAsTJ1fbYB zJYVyEaTcGOprIRS8f0earKRvPT XnaVQeQdUaJDHbXQEia6mgTBMtg GFuZzEwMzNcZnRuYmpcdWMxXGRl SiXyv5dxy157aAInx5dbKRIpRbC 1yZNbZCRxlXpbbif7sZgfToSjSI Rig2zgkiDiXeQoATXgHLMbJJOoa UDrQ811HDLyWWyac1znp1KzCHJx qWWxm1X2XXKSIOtoMnRvF784x4s dd8fclnLjeFM3MIZhOMP7RTnkzg QhnaQ4CFqnhOTnWsG4EYaazvQlP BcxzeFgptEaCem4HSBhB764LFB8 qNpci9vdWNJ4TMYxLEEtQptxPt2 ynJKrA291VMSgWOTKYPEycEf4YO AipvQtciNhxXIQn335K693v7ruW ENrupYhhEgLikudx8rmX498WQKe wOJnmvGoUfQjZHHysINscPZ4MBW bUF9iioiaPPbvCRyyTBYxjsB1KY DuyADqP2JkKPYkGV4cvptzVJT1L HqaYERsEYI6ExQxQHGok9Ugzza9 LlQtpn8kmi59ZOJ3r0QmfTgyVRI 5XID2AaEnHj3brRLgDEGzXU3nAy ZwaUGjZSTmrv06oJtnVOslkkGrr K9gSpGaLMNkwQMoRPJcCK6vdXSi THCkfK4otenwLPPtYaXbqwicXDG fqNwkncGkRn7uyAryNFR7LFneM8 vcjP8sXzR4HOqjA0ghkJ3wODm9I MudeNF9ZZYnnR2hOY5bytrrm7gc JTztVOqqFKLowaW0poH1EVKmlAP cJ1OahK6hZZUsJH8ozgsuw9gjVI X5WOgfFXXcKME9TsBvUWDzr2Qup ti3KjAur2VwsSNgEPqeM19sx336 JVJreaByQ4wbpMXnwecbmRXklqm hFXzsjhW1RQXcHEYfTLrgMNCvXZ ZzMjBcbGFuZzEwMzNcaGljaFxmM FxvOgKsULSdRKnrO1nxErMpY3Qx KOEcZwQsbRQzOZthsLK8JXXzWAI bg46ixLn7BLQdygbnx2QcNWZcdD AmoZBebG7dkqLwt9tsBTKdMUKaS NAkM5PwVKG4fPQtSHIwtWKjmXA7 IX0gruOrZL7hXODnHbmslwKovWU orkWxOTFhZGhyj3rzKF1uOUEtaZ rzgN2hxSW5XRCcl7plxHItmHVxb 3lth3VlpyQdUTglSUSiCMsvQVBc LIFyLC2eIGMekSFudtKro7I3Pmm bmMKqexsqRngyevQ6ESpxhjumUD UuRYkkC7egBmBfIFXshQqcMergt 7TpCBZzIESgUbhsvNDlsY6= Clinical Layne Carvalho is a 72 Information (test year old code = [id number]) femaleDiverticulitis large intestine w/o perforation or abscess w/bleeding [K57.33] Gross Description e8lqsPMbWSHqzPRxXVDcN1vawnI (test code = wCLAsoSIgX9AvmzqiGEmlUA3eDK [id number]) 8ssHdvtVLrvUVxDDQbVlUdw4hyw 002mLDmi7zzGVBUqaablTz2eTvu A01ff3S9SnunG09kjAFyBDM9ALU fZDMvqMBvLKHtQIS7CVJphJMdC7 xzQCHtEM2gazqzFLiqIQufGFSfx EJ2IIAetHFaE8CaBEAtZZogDJUe dws0SeEmNo0nnOGqnVzlDGafTws hrHbgd2VeqPJvRVluQXZmHWZkIM pfnjcmUOy1FTQhOBjskIKsVB8ce DacBigehLthg2SxpSLhZZvtXPSs MTQlETpzJQRdO0VHCWCuAgi0YIi 6MGJsFHu4ZNstV0BBRVBnKKEvBy E7SORlKdT6WMm4FAGASw9yGKL4P YP7LSwyJVA5RDCgIHKtLEMbZmGt XGZsIFxcZiBBcmlhbCBcXGZzIDE rVQqyjrA8YVOynhUpfLwgnQ0tCc KfUTBTEYBPIL4WDuZCXBDfcztmj zIyIFNwZWNpbWVuIEEgaXMgcmVj ITe7CIRvbO6wRs4pqFUmbR4coHX kBYagFWJgc0d6gJZ2iNDmuVW1uX NlpWuiIwPbKS9vnWYqOZNSNZ92d TMmvpTwETJfPEFwCFTtfiIlp7Nl eyCxXFUmV95huQEeY51aa12wFGE kN73ikBOaB95hk95qDQY0wVGiwC TqyaLpsWP9ZShwI8D3JHreBKPkx dCzP92gl6jisLBxw3TtQNF4PP4t yAlrkcZdHLYrTFLuf7kfsBObSQa mOA99NYjaQm87PXFrLGgbVSohfm v7sZBrdZWxVeWaTu16ZQJjJGmcO FHpGF9qgTDqGS4jARHoRSClXZyb HKNar7IrpEMaSPD8EAIiBP4qEXP sy6gmekH0rM6oQZJng5PifO2wEH StXXDvPSRvr9IbjFLjzdYaPYKiC TPnZMIfw3KdURTfcYw6G0ouWXOj AXZuO8Ion3i1yXMggOOtj0EpNMh dEaU4CK4sdBZnaD79AGU5bOLdkJ EwOPBcEABixILepc9dSYOlPJUil j08iK4ijXWrLZIviZ1mQA9zAMLv VcWvH49bExQbsAK3qWAmHHxjwPE yYY8ubtjsht4dRTQgFRXpyFGcdL 9brzUlcgNggPVtVTXrcZ7qkjE3U KTcUDVgdXT4WP55SKm7zVNgXGUm mNexBAM0tUSqOBYpelgwIiXuz10 gLg7zuUYfZAMgI0PxTD5ydVOoqK XrTqXoXBauET47Q90wCQIyqeHqm JA1qDFjBKTgJKMegufzpBNnDLIs ZNDhvbg2mZIiKABofEGxBK0oSPt eMJXrkJVit1OscFJjWe0lPK73dG RpcGxlIGRpdmVydGljdWxhLCAxI D7lVKreeFHtAHudNUXuxYrhQVB0 bYOwVLZxmnqvAzQjd21uAdpcD7a qZuSxCMzolWX2WOWzYPzyKUNAut ZyRNLmCFthFBytd6PmdVryjGOaw tOlTpzfHL3lDQBhvAYyf4JelAI1 zFBuPHIpK9Qqr83tMGNqNSTlbYJ mqMD8BTWgrF8dCONyHDUwBHcwzo FliVjdTHLHSXA1zA5fLKRjNGN0V FmnvlXwEHF5UWPli5QsnFEgVAQu iJ8cTYMpRLXjP7ToMYCkdWfpPAy 9XGaxumQgALZ8INZpk9ojoMQcVL 5xcnwkgovmWK8wLcJcDPdbJN63f SAhrPqpjRYrSXRmZtVJnRW6spGx OLKuAqHqkZpfjdJichUsHX81UHE ogvTunWHfITR5PyBCoIQlccMjE7 FzAUGauLvrTZZza8v3mDIuATIzQ LEmo9boNIOeR8GxWJ6wkPOmaTFb NLMyebGNXLhsQIs7OOT1mRN5pNI iZZTrsJIzv4MqfOH5eSVwVJLwmm SNHvlxCLTng4ImKRVbPPBvCRSsx wKhaSw1GLjamY6iUGHmwgGUjYaw JIQWP3ijzJDbAAipRHSHJQtAB4Z OFZpqJYZjN4BnT8XniyH2u4iccL uoh5FvlYNwFI3zhZSdfB== Disclaimer (test r5tuhQBaISJbn7hmSHPbpZIfGxT code = [id number]) wMzNcZnRuYmpcdWMxIHtccnRmMV vlx4UlZ9ObWnLgWMhxucTpKUQgS cxomiuwKVSuWTB8lyZbCUPvKLhs QHIjGEsmXn4ekIGwyBrtUqIaOTX vw1pifuRRGJczNdBmE618FMVtLL ppv3gla7TrLQNkpWEsz6G8LOVDn pbzoGr9jXrlE92gw1U8RzmlU2xe RLAuMMMvO5YhGF0vRZRzCav3EPG 5DHR0XQTxXPAyH4KvYQ7pQUUbfB OeJJn8y3jbeJzcWYIyCYD5c7ciD LrwgoKkKT6rmq8tkRe4u9dbeoAn PDFhKFPokTMPLLFtW4PazEybBl5 eoLu0qBxzBzohULG3Gzm4QG1rmo 06hyh0gXxxQKPnjxxzKhK9LTnbZ TLmleszUMy9SMdfTXNyeAN3JVFv uGEsI8LxSCGxPK1hyfy9IXS4JCu mVVTaKyA1VEGsbDWiMHQsqCooFF sps109CIC3VdOnAK1kY8Plq0G6l Z0bzCQoRYMtxPPlCtNtIXSgbz5a rFXhISpww9EnVWK2dyI5hXRdlWC zWGJxZE79Jwgep6AzQecnh7GwE5 1hhNZ6UGaif4ssQU9dXbU8ezWoQ Ulyl8npcR1wEpT6OCcwHU8nKQ5p PUQpqB8mwmfvGSFwBzTezlxwKCJ lbDgvvhCgHh5tfIzyNFL4WQduT0 llsE1sJsO7IAebS7xebZ8qPSd8A RmxvUU5LQRwkF1wUN4mjtgyp2bk KWusTKoeLHHbouI6hzS5VVBneDP gQ1BgfP1gXHTdTH4jtytin9ccWP Z4MUaoFDBwXQX1ShAfBJIxg3Ugb po7GeThe1IojCLqVPvxV57tw023 SDXkhiFjP2fwbTGvntnzwOEomnn tSJyadwS7SRYieyPec8TxMIWcPX F6IUvcKZorlPZeTUAcmTesh0mkP 3RscGFyXHBsYWluXGYxXGZzMjBc bGFuZzEwMzNcaGljaFxmMVxkYmN nSXZjHOylM5dkByGkU0TgGOTmXg GnhAOgV1qkDIjscmRwEZPycuTvl PE8LBnkL3q4VRHvtpYjxDt9xpLd LbFgILIaKWC3SLxenGOfPWEey8D odispdIVcPl0xhIQpEMZruO5lHD QkLOChEYavNG9fqEi9DZZVvGSsi XGbSiZGQZUvMU87udKhPQEKlbie a7U0TVldEZRrc4OtoRTfB2gtl6W gTZYrl93cMR2zm6F8f4ykAXE3FF 7an9OpEZAjvGOlvKIxAJOzc5Fwk vcii4ElPJHjqpNlc3IlHDLpiaEj dNQxHFRztyRirt3urgIeQNRfUIU lR3RldwbjoSwrdbBnHNUvvy8khz NlIYJ6KJQQIZHnSXBsp4PbwX1za GLPYWX4oVWogv1kisLTcVCzBMBb vt63OLEaYQ6sZ6fzIPFuZJFdzeO ybPAfw8ItXWEkcON6oERbPZ0OKw PZd88sFOWrXHGQftTpMJMdxRxhp XZ8mlD9lB4cQBzWMZGjKtf+IFRo SSGYZVBxGI2feqXnl1QmgiUjgCd dHDMynIEum0RfuQSvr3HciTkqt5 JxfJGqrYYuQD0sUFNsmrcoSDZxJ MWGZeFCGVFfynH9e8ZqOQPiWIJq DBB0dWdyytd9YEQpzW0bVNKkK3k fkgroHHjsZEHwl9IcgT5ogKTDkV Ikn3CykELwxOAOnKMtBR8evkHpD MdSAVyUDPN4gjKbMGSii0ChJEgj Z8mjP02urWxhfPx8rAW8OUX9vS4 nLlx+IFxwYXJccGFyIEFwcHJvcH RbALMgqEzaoxHmI5JexfCqiT8ty LHxwhRpNZ0mMT6sE0V4aGQbNWIo flMkm7lsHBtnxtUmLjQkmgZhRRP xQCtwVCCpu6ZnHUywCVP2YQcwgu BpbmNsdWRpbmcgSCZFLCBTcGVja FNvHCY5RZvgtoNzsqYoIU8xdG7j hVnkqX1lePAhrPO6ukjkXWPwWYE beHdkXGIaMK3hjPCrLPUnhsPDgW bbeJUngK9iQ3WhJLAwSRLnqa6aP CXrsV6eJOqne3FkaoujHUQmMBJc XMDtkiNkjz3iEBLraGUVSL7EIGa qyELcr2MaiyMtF4gZHJG5VCVgUc YiWvwuREXnnOKohJDiQJDrtt37A JPhpR8zmAwnXKOsbB9iuW5apJij cA2sGlGmGeDaNTulJX7gXCPhA3l npPDyCAXqIYLoN0ojZeNhkH8ugN blBEgoRvBoZoKsVUuvMTC8nE== Embedded Images (test code = [id number]) [facility] [id number] 18:57:43 Test Item Value Reference Range Interpretation Comments Case Report (test Surgical Pathology ? code = 6869252381) ?Case: [id number] ? Authorizing Provider: ?Linda Hopkins MD ?Collected: ? 04/27/20222018 ?Ordering Location: ? ? [facility] ? ? Received: ?04/27/20225 ? Center ? Pathologist: ? Gary Gupta MD PhD ?Specimen: ? ?LARGE INTESTINE, SIGMOID COLON, sigmoid colon, stitch is distal ? Final Diagnosis h2ivhZYrVDPku5vmBUYlnMBlPrD (test code = wMzNcZnRuYmpcdWMxIHtccnRmMV [id number]) uxcMakEKXwCOToUN2mxPbqrBi5f LllTHJrjyG8qVWkBKurb9cwXGO8 m8sqqzslBWUeNSaqLw7zkWSmcOq qWsHxBQQxXQf6lY88ZVGyiY2odB PhLZu9JVPxgLXmlhRdQdGgLFUxt PRjiQR1CDVuBS9hyhynRWklXStp CAXymhZ3DTVsvQKiB8InVQCaFH4 wjgwbROC0DJpkUQDrLLH0GeSgMA Ebw2Gvhgj8QfSkyDUmIWeelPBwd lxmczIwXHBhciBBLiBMQVJHRSBJ RuMDN4VLZgWsZJHZZ98AECOoR31 ZO25bSOHRB5VIDBjXPchjgKUvKZ AgICAtIERJVkVSVElDVUxJVElTI UjMWMwbQ4XVP8MHRGlAGJTyexXc IBZrKNUULXRME2KOH89eQFTKX6q OUyBBUkUgVklBQkxFXHBhclxwYX JcZnMyMiBKdWFuIENhcmxvcyBBb FCumgS2EC4sxgSlhhhvYORmPYUh KwV8StYpWbWxKTP9PoHvNM1crGC aOUXzQcTuKXtoYHI7e0rikQDsXJ WqyHSiVcMcHGFgPQTcg1ibATNvu GFuZzEwMzNcZnRuYmpcdWMxXGRl YcUjj7isl420iJOcn2gqMRMbNxM 6lKBmVUYfmSnzahm0eWzbTiEdXQ Fys7iyhsGmVhWeMOUoEOXjHJGur NShL481VMRvHPcsy1wqy1DoNSHj eELku1J4GHTZGSoyZyTdY735t7j xg7ttcdFjfWV9LQDzODA1QAymin JtunY3POykhSBxVpW2UOdvahBeR JcznpGhqzVfKih6CDPeF653SWV1 lYwmu1pqNMB0RZOaKRRoCcveCs9 awJXtQ544WYTaSSGMTDHawCg1ZS JmhfSjbsUhfKWBj485Z103h9rsJ FTzcvAgsHjVjvsny0dsD248PLVf dJVwvuVlCfMqAGZxkOBjeQY0ANV jOI1cxfoiRSxuWHuiVOFlddN6TK DmfCTlI2BgMDDfIV9vxacoLIT2T MzpAYXeESM5PoZyJXQvc9Ayyie2 FiBhlo3ool86CDS6m4SflRioJJO 9QHE8LxEeFo6kqVKbRDMrWX3eOq FfiQNsEDWqoz61kErfTFbqfqWsq G9lMpGbJIOpzXTcQYJqZI3bkEZm PVAehG7skhbdCEWyItHrjgroTZX trUilhwRiNq9xwKfpZGZ1HJumQ7 nngP2bWeN2KXzaM0xxmC6wJUn4O RbloEV9AVAcgB5bWW4cwtlyz2ln IKfrDAumBAFwhtY5ckQ2PBNoiHE yI4LknU1cKSKsZB2lkoplv9ziAT A3YOizPVXtSBW6PiYwESHje6Znq jv0TcTcg7ThoNSsLUvgA37yd873 UQAlwaBnU2pgnVVstoirdSEuwpc tDCpthoM2GOXpZZJiAAxcCUWzTQ ZzMjBcbGFuZzEwMzNcaGljaFxmM QalHtSdACOaBKqrH3ahCbDdN5Ed OQFfNzUhaAHuZNdyfTB3QFElVFD jw71inOs7ZBMqngpoz2JpZHQetX LwfKSrsQ7zfoGjl6ouRTGfCKDbS ZFsL8HkFIG4uBOuXMAhtZUmiEL4 OI4lyeEoZK2yPJYdTplsimRqvFM pfgFuOMJgDZmis4fxXK9vAOCxiF nxcV4pdZC8DRJrq4odaGUfvUWam 9iui1CmyoCwCXgmPKSzAGtcOVMu UFDfWM0hRCSonMZqokMht0H1Rtb ckJCygodeItpmyvG7KWvdwocdJP NsTQvbN1xhIqChNBQqaHfuBtnlo 8LlUVGgEZYoGnuyuSYxkU5= Clinical Layne Cortney Carvalho is a 72 Information (test year old code = [id number]) femaleDiverticulitis large intestine w/o perforation or abscess w/bleeding [K57.33] Gross Description p7lnjYReMMBspCSoCIFzY5obdgM (test code = pMIFvsQMuK9GjpogsIPsnRN6dWI [id number]) 2oqZcokTQyyYYqBLGvBvFvk5iqc 668eFOps5ruPUXXnlblbMq6dNeg Q48jc1H7SsjkR66xkYLrOXV5NSF sGGCqaSTtVPHzUGB9GWYeiBNkE0 zjJDPlTD3kcjlsDOtgCGoySSAig LD7UOXfsFMyD2AkHMNoEYnpDOSu teb4OmKuLa4rpSRvyPwnYGlyCpi ckVbar9XjoAAhQPfyWOAgBQJjAA onuabxSQk2TKHoKOrpvSTlPV8ck GmlXqwhvBryy3WuiTWqHBbxIVPc GJWrVZnzTWDvJ0CYPVZoLim6YFd 1LMYcRHo2CBsrG1ASPCChZSLdOt E9ZKWfZxD3NDv0IXBUUx0hLGH3L JA2BJllYMV4LHNxHFTbIRQtLqPj XGZsIFxcZiBBcmlhbCBcXGZzIDE mJLhxplX2SNKsfzUmzAjqaU5nFd GfKLSYQBNCWH8YEaZCICWeeizsi zIyIFNwZWNpbWVuIEEgaXMgcmVj QYw1TPIxoK2sGz4exSShvC2fdCB pHYzuZFXuh1k6hFM1gJItgOB2kM CrfLobCnMcUF1vuNYwNBRDWQ95y LBrvbMpWRPeTOHfFXShukWxd7Og idJxZWYjN91etUEfP12ze32tEFU jM09hsMEoR26dj59wUSQ3eIWveD CahuUdrJZ8CArtT0Y4IZrpJTYva uNjY16hd0zvtRPdh7UjCJA8LW6a rDpkdlKiNPWoOMNbf4gfyIQwDIc wWL84LFyvXf24FUZbZDtkVMyxko w6vISnaONrEoPfMx18YAExKLuiK ANtMW3pcOEgZC4nRLKeDSAtZXmv RNRhh5CioEOjMSW0TCScFW3qKNS gp9bujcR4gH2tRPJsx6LfdI3cNS QaUZJzCRFac9ZrgIRdncWpWWDaI EMkDLOvu3GfPBRcmEp2F7mlSOZr XGHkV3Jwh8l0cYKtfSQbl2IkBKp yBtV7QF8sqQNknX97LAZ4hWWvhS HkZHQwEIQwrLFawy7gXRFgQHBzd d98rA0axJTwXXHcyH2lVB1zYIJv VnAoL12jKvGixSE9jBCaYAknoTW pJR0wcgrkfm5jZPKnINXagLPfdD 4ufbUhudWapKHgYTOanD8jmiB4S ONnZELxlQX1RM79TLy8tBWlKOEl bVuwPFB8fLTlPIMtnopbLfAod67 mNw3sgTZxRWZiL5BeCN3saKQxmV ObLdLwTUugLT92V96vLUJlsrLlw SU3lFExOJOcEPRbtcagiBEyWVJf DTLkwnq3fIVwPJBzmKSaHF7zBOv zWUTzwYAct5ZelCOkXu8nYI81bF RpcGxlIGRpdmVydGljdWxhLCAxI X1kTTdhgFHlHGrvJLTefJknJZD2 gRAxDHXibompJlXoi46mWflkT3r gNxXrLBwsePH0ZORnPSdtBGTMjc DrLDDzCJqeAYtvl2UtoKbdqTKku nNfMahqCC4sCMZwmIWjb7CoePP6 mATmIEBxG7Yvf57tNKJaKODlnLA dkNG3LPOxuT8uQZGdOEGyDDqfwn ZhgYjiBWGHERR6xG5fOPCkBRH6Z JbqyqDyYAT4TOOvh3IbiELhAXBj cB2rLJSmXDLgC4ZeEQWrdRwzMEo 8GNfsxwXpGOA6BGFdp0qedTQpNU 9qemulapssAN7wGaAuXIxbME19h EYlbXfthXQpNBSlAeNUxVV5afMv RGBlXjHjeNwyeqVgvpOyRP80DPH qiaLqrYGbHCQ2UnEWhOIsebAfC8 PpFGHtmThlRHUko6j0oZGpFUReT TYdq7duOJMuM2DdAF3ijGGcjPMq YBBtnrOPNBvoNYr3VAA8lIG0sNI iYHSzlNDjh3OdpNV3iDNjQTBhtv OISjgoFYBds6ImVFQrPFMzFNQcu uUlyHe2SLjlcG4hDVLajaLAyMlg TYKJU2feyPUfPSduISSSBNaJK1D IAQllLQAdF5IfY3UoloQ0t4ryhR lfm4UwnJDjDZ4ssFTnmZ== Disclaimer (test r0sfyHJzYHWkn0wsMQIbfHWaKcW code = [id number]) wMzNcZnRuYmpcdWMxIHtccnRmMV iti5UvO2VcMfIvQEzizfFfBLDbZ ohwdihbUBCgUQL6hjDnYCAnZZcs FZUwIOhgVq1hhKCaePmbBpIqBVC oc3aqjoDEJNztCzQoY241PCJeOY wok0ads3UrAZGynKYxd6E0QGKVl nlgaVo1bQwjZ60wg1O5HbgwW7ef RVIePGGeM8NaGP6uQZNmVoh5YDA 4XFP1TJNsTPYwR3DsJU2cAIJjbV YoCYp1i1uxwQltDTThJPF0j8tiQ AwmaxSxAH3pkx9beLt4u7zlxvUd OGCbATJggTISEISoJ1MzdXnyWg7 iiTn4lEezOlmtGRX4Dkv4DV9khe 69plz2tRgbCHSygscsKtI1SUksJ PJkbgwqBRm0HTneDOBcoSJ9FFEl iMTeD4EnBPRvHA6bduj6SAV3TKw gCBQuTeM6JBIrwIKtUVMqzInbBL dnv962HOR9JqLxPT0aZ9Sgf4G1z F6mzIJcZYGrtGNrTvUuOERbxd4e oOStWPnfe4WwWUN9seU7xSPalRA sJLJoTI57Ijmil1TaTkhaw3LuV8 5miWT7UYrhb7ieWU1vJeF7juXwD Kuzz1jzfY3lMvT6TTiwXF0bQW3n TNSzrS6dqnzxINOvOpLgtybxCPM dhItnncIjBj2jvAycLQZ4XAddP1 ebaI0bSnR5FZubD2rcnL6dQJt9A TymyHD1GRKgtW4rNM3xjqgkh3ol PConDVesWRAfkhY8qiW6FDAduMD wH3MfsJ1yKGYxCD0bqyirj7ecKR U5SQsdLZVtEWX8SjBdFLEuf7Exu wy2HvVxb3IxiPUpUGpqS39os983 SHHvxoYkD1vebUYmcqzvaAMazvk cBHvokzN9SHYykpKvl7StSENjHR M0FNgqQJoywFRsUEZyuMmhi0liU 3RscGFyXHBsYWluXGYxXGZzMjBc bGFuZzEwMzNcaGljaFxmMVxkYmN nXWMjNPgkU5hyZuRuM9EoAINlEh XifFJtA7ikSDhpjnNuLYZbjlXzs BS3UXmxH2q6FYWcqdHaqLt8iwCi XtPxFYEoPLG8TMkfeGSvVPTdf0G bdghnxQKxDe6wgJOaEACsoN1vLP DnLFNmURlxPF7atAs9AQLUzEPpq SHtHwXEXELnYP85htAnUFTSpvpj u8K5PYrdFCMji5EdgCEjU1daa0D rVGWxx06nIJ7np3L4t3zpXMK2EP 5xz2UcWBEygIDofBYiHRCqo7Mux jxon1IhUPJyvqYdo9OfEREgccQo uAQdJSWijgKisj2jixZfJHXlRDZ pH3OrolfvrOsizxQwMEEebm2xqr GtNPG2UEITGMWeGMVfr0EmoW1le ZVLLOU4dZDbqx1bfoNWpDKqALIj pi19ENRmFS5pX5vmGRYuOKGojkX xeBUuk5WvHGUikYX8sXCrBX3BUf FPe55mBZZaWUYTjyBmLMBczHpjs WY6jkZ7pO9qLJmJXIIbUkd+IFRo MTWJIGHlRY1emgKzv5AfljPpxUb yTOPdtRDif0DgoPXjs1FduTxuh7 MixIYuoKWlRX0rNRMczmzuLRArC JUAPwKXNWTgnpA5k4TlGLCqTDBm PVO7pDlgyer7EDNbfL4bOANhP4x iycxfHUsbGKIuv4VesZ2ysSMXgM Wvo5MejMPujIZKqQIaDV6vbvQuY MgOFBgKFEP5siGeTMXpt4DjXIvd D6okZ32miJlxeNi4cHZ6ZUQ6vW5 nLlx+IFxwYXJccGFyIEFwcHJvcH RkCHQinIzwskHhM9FqopNltA4dz VIzqrJbRQ7zHP2rC4D0oHFhOBRv puFqi4khRSuzzxOlKtDuxyVzZSH iFSuvJQAdi4HeECjhARV1RXkqai BpbmNsdWRpbmcgSCZFLCBTcGVja UGyRUH7WModuvHozaViBB3eiR9b cBdnbA5ugRBtnFG6otguBOZiFZZ bcCbdLHVaGS6wfNNyXDYxbjMDeY wleCMrfR7rR3PnESNoIXZyex9hC SJiiX2zWFlga7EyhtjdSMXcYLAe MOQnbpQhlp9iQEVixOJHUX1LZRi aeSStn5NzaoDbX7jLDRV6NKDcCe VtWanyKZNurWNwqLMqHQEhsp72G VBbtF2ndPrfLUFlxM8xoL6hzBku pQ8hAaDxHpWkNKtjKZ1hIRGbR9w ymMKpWERwLRKbM2yiVjMllR4miD lgOHahQoKpFgQoIThpYWQ7eC== Embedded Images (test code = [id number]) [facility] Test Item Value Reference Range Interpretation Comments PHOSPHORUS (test code = 7495990216) 2.3 mg/dL 2.5-5.0 L Lab Interpretation (test code = Abnormal 97949-5) [facility] Test Item Value Reference Range Interpretation Comments MAGNESIUM (test code = 2198825377) 2.2 mg/dL 1.7-2.4 Lab Interpretation (test code = Normal 23100-8) [facility] (NA, K, CL, CO2, GLUCOSE, BUN, CREATININE, CA)2022-04-30 10:30:04 Test Item Value Reference Range Interpretation Comments NA (test code = 136 mmol/L 135-145 1956429781) K (test code = 3.1 mmol/L 3.5-5.0 L 9522989493) CL (test code = 111 mmol/L 98-108 H 0313928624) CO2 TOTAL (test code = 23 mmol/L 23-31 4143536153) AGAP (test code = 2-16 3787762409) BUN (test code = 8 mg/dL 7-23 6120521680) GLUCOSE (test code = 78 mg/dL 70-110 4760309008) CREATININE (test code = 0.41 mg/dL 0.50-1.04 L 9160137581) CALCIUM (test code = 7.4 mg/dL 8.6-10.6 L 2612331625) eGFR (test code = mL/min/1.73m2 6858091831) PARISH (test code = PARISH) Association of [...] tests). Lab Interpretation Abnormal (test code = 49592-4) [facility]:30:04 Test Item Value Reference Range Interpretation Comments PHOSPHORUS (test code = 8176242402) 2.3 mg/dL 2.5-5.0 L Lab Interpretation (test code = Abnormal 96923-1) [facility] 10:30:04 Test Item Value Reference Range Interpretation Comments MAGNESIUM (test code = 9858101941) 2.2 mg/dL 1.7-2.4 Lab Interpretation (test code = Normal 42704-4) [facility] METABOLIC PANEL (NA, K, CL, CO2, GLUCOSE, BUN, CREATININE, CA)2022-04-30 10:30:04 Test Item Value Reference Range Interpretation Comments NA (test code = 136 mmol/L 135-145 4786990714) K (test code = 3.1 mmol/L 3.5-5.0 L 4813924779) CL (test code = 111 mmol/L 98-108 H 7298649437) CO2 TOTAL (test code = 23 mmol/L 23-31 6502530441) AGAP (test code = 2-16 2156042126) BUN (test code = 8 mg/dL 7-23 7369861217) GLUCOSE (test code = 78 mg/dL 70-110 9516631820) CREATININE (test code = 0.41 mg/dL 0.50-1.04 L 9551154077) CALCIUM (test code = 7.4 mg/dL 8.6-10.6 L 6446978687) eGFR (test code = mL/min/1.73m2 9022028365) PARISH (test code = PARISH) Association of [...] tests). Lab Interpretation Abnormal (test code = 54085-4) [facility] Test Item Value Reference Range Interpretation Comments PHOSPHORUS (test code = 4055261422) 2.3 mg/dL 2.5-5.0 L Lab Interpretation (test code = Abnormal 89073-2) [facility] Test Item Value Reference Range Interpretation Comments MAGNESIUM (test code = 9286148590) 2.2 mg/dL 1.7-2.4 Lab Interpretation (test code = Normal 26502-6) [facility] (NA, K, CL, CO2, GLUCOSE, BUN, CREATININE, CA)2022-04-30 10:30:04 Test Item Value Reference Range Interpretation Comments NA (test code = 136 mmol/L 135-145 9709821011) K (test code = 3.1 mmol/L 3.5-5.0 L 2794887126) CL (test code = 111 mmol/L 98-108 H 7098402157) CO2 TOTAL (test code = 23 mmol/L 23-31 6664678832) AGAP (test code = 2-16 1147785911) BUN (test code = 8 mg/dL 7-23 9908858055) GLUCOSE (test code = 78 mg/dL 70-110 7867747099) CREATININE (test code = 0.41 mg/dL 0.50-1.04 L 6711914437) CALCIUM (test code = 7.4 mg/dL 8.6-10.6 L 1211587899) eGFR (test code = mL/min/1.73m2 8228857237) PARISH (test code = PARISH) Association of [...] tests). Lab Interpretation Abnormal (test code = 27485-6) [facility] WITH [id number] 09:49:41 Test Item Value Reference Range Interpretation Comments WBC (test code = See_Comment H [Automated 6391-2) message] The system which generated this result transmit palma reference range : 4.30 - 11.10 10*3/?L. The reference range was not used to interpret this result as normal/abnormal . RBC (test code = See_Comment L [Automated 599-8) message] The system which generated this result [...] (test code = 52.5 fL 39.0-49.9 H 07524-7) RDW-CV (test code = 17.1 % 12.0-15.5 H 788-0) PLT (test code = See_Comment H [Automated 777-3) message] The system which generated this result transmit palma reference range : 166 - 358 10*3/ ?L. The reference range was not u sed to interpret th is result as normal/abnormal . MPV (test code = 10.2 fL 9.5-12.9 32258-6) NRBC/100 WBC (test See_Comment [Automat ed code = 3685157920) message] The system which generated this result transmit palma reference range : 0.0 - 10.0 /100 WBCs. The reference range was not used to interpret this result as normal/abnormal . NRBC x10^3 (test code See_Comment [Auto mated = 3386544951) message] The system which generated this result transmit palma reference range : 10*3/?L. The reference range was not used to interpret this result as normal/abnormal . GRAN MAT (NEUT) % 80.6 % (test code = 770-8) IMM GRAN % (test code 0.40 % = 8195868132) LYMPH % (test code = 10.0 % 736-9) MONO % (test code = 6.9 % 5905-5) EOS % (test code = 2.0 % 713-8) BASO % (test code = 0.1 % 706-2) GRAN MAT x10^3(ANC) 14.40 10*3/uL 1.88-7.09 H (test code = 9853865131) IMM GRAN x10^3 (test 0.08 10*3/uL 0.00-0.06 H code = 2815905896) LYMPH x10^3 (test code 1.79 10*3/uL 1.32-3.29 = 731-0) MONO x10^3 (test code 1.24 10*3/uL 0.33-0.92 H = 742-7) EOS x10^3 (test code = 0.36 10*3/uL 0.03-0.39 711-2) BASO x10^3 (test code 0.01-0.07 = 704-7) Lab Interpretation Abnormal (test code = 79110-4) [facility] WITH [id number] 09:49:41 Test Item Value Reference Range Interpretation [...] (test code = 52.5 fL 39.0-49.9 H 59546-5) RDW-CV (test code = 17.1 % 12.0-15.5 H 788-0) PLT (test code = See_Comment H [Automated 777-3) message] The system which generated this result transmit palma reference range : 166 - 358 10*3/ ?L. The reference range was not u sed to interpret th is result as normal/abnormal . MPV (test code = 10.2 fL 9.5-12.9 45589-1) NRBC/100 WBC (test See_Comment [Automat ed code = 3839319817) message] The system which generated this result transmit palma reference range : 0.0 - 10.0 /100 WBCs. The reference range was not used to interpret this result as normal/abnormal . NRBC x10^3 (test code See_Comment [Auto mated = 9643914742) message] The system which generated this result transmit palma reference range : 10*3/?L. The reference range was not used to interpret this result as normal/abnormal . GRAN MAT (NEUT) % 80.6 % (test code = 770-8) IMM GRAN % (test code 0.40 % = 4784610321) LYMPH % (test code = 10.0 % 736-9) MONO % (test code = 6.9 % 5905-5) EOS % (test code = 2.0 % 713-8) BASO % (test code = 0.1 % 706-2) GRAN MAT x10^3(ANC) 14.40 10*3/uL 1.88-7.09 H (test code = 0824204204) IMM GRAN x10^3 (test 0.08 10*3/uL 0.00-0.06 H code = 1699741520) LYMPH x10^3 (test code 1.79 10*3/uL 1.32-3.29 = 731-0) MONO x10^3 (test code 1.24 10*3/uL 0.33-0.92 H = 742-7) EOS x10^3 (test code = 0.36 10*3/uL 0.03-0.39 711-2) BASO x10^3 (test code 0.01-0.07 = 704-7) Lab Interpretation Abnormal (test code = 97025-3) [facility] WITH [id number] 09:49:41 Test Item Value Reference Range Interpretation Comments WBC (test code = See_Comment H [Automated 7990-2) message] The system which generated this result transmit palma reference range : 4.30 - 11.10 10*3/?L. The reference range was not used to interpret this result as normal/abnormal . RBC (test code = See_Comment L [Automated 469-8) message] The system which generated this result [...] (test code = 52.5 fL 39.0-49.9 H 75743-9) RDW-CV (test code = 17.1 % 12.0-15.5 H 788-0) PLT (test code = See_Comment H [Automated 777-3) message] The system which generated this result transmit palma reference range : 166 - 358 10*3/ ?L. The reference range was not u sed to interpret th is result as normal/abnormal . MPV (test code = 10.2 fL 9.5-12.9 70784-2) NRBC/100 WBC (test See_Comment [Automat ed code = 8551743900) message] The system which generated this result transmit palma reference range : 0.0 - 10.0 /100 WBCs. The reference range was not used to interpret this result as normal/abnormal . NRBC x10^3 (test code See_Comment [Auto mated = 4442358920) message] The system which generated this result transmit palma reference range : 10*3/?L. The reference range was not used to interpret this result as normal/abnormal . GRAN MAT (NEUT) % 80.6 % (test code = 770-8) IMM GRAN % (test code 0.40 % = 0800578479) LYMPH % (test code = 10.0 % 736-9) MONO % (test code = 6.9 % 5905-5) EOS % (test code = 2.0 % 713-8) BASO % (test code = 0.1 % 706-2) GRAN MAT x10^3(ANC) 14.40 10*3/uL 1.88-7.09 H (test code = 2270808105) IMM GRAN x10^3 (test 0.08 10*3/uL 0.00-0.06 H code = 2463371758) LYMPH x10^3 (test code 1.79 10*3/uL 1.32-3.29 = 731-0) MONO x10^3 (test code 1.24 10*3/uL 0.33-0.92 H = 742-7) EOS x10^3 (test code = 0.36 10*3/uL 0.03-0.39 711-2) BASO x10^3 (test code 0.01-0.07 = 704-7) Lab Interpretation Abnormal (test code = 50731-2) [facility] GLUCOSE (AUTOMATED)2022-04-30 04:51:04 Test Item Value Reference Range Interpretation Comments POCT GLU (test code = 2722797986) 71 mg/dL 70-110 Lab Interpretation (test code = Normal 65500-5) [facility] GLUCOSE (AUTOMATED)2022-04-30 04:51:04 Test Item Value Reference Range Interpretation Comments POCT GLU (test code = 8713342362) 71 mg/dL 70-110 Lab Interpretation (test code = Normal 78294-7) [facility] GLUCOSE (AUTOMATED)2022-04-30 04:51:04 Test Item Value Reference Range Interpretation Comments POCT GLU (test code = 0146169230) 71 mg/dL 70-110 Lab Interpretation (test code = Normal 96501-5) [facility] GLUCOSE (AUTOMATED)2022-04-30 01:35:46 Test Item Value Reference Range Interpretation Comments POCT GLU (test code = 5980121512) 73 mg/dL 70-110 Lab Interpretation (test code = Normal 30316-5) [facility] GLUCOSE (AUTOMATED)2022-04-30 01:35:46 Test Item Value Reference Range Interpretation Comments POCT GLU (test code = 9972971692) 73 mg/dL 70-110 Lab Interpretation (test code = Normal 31608-2) [facility] GLUCOSE (AUTOMATED)2022-04-30 01:35:46 Test Item Value Reference Range Interpretation Comments POCT GLU (test code = 0059419110) 73 mg/dL 70-110 Lab Interpretation (test code = Normal 40535-5) [facility] GLUCOSE (AUTOMATED)2022-04-29 23:02:28 Test Item Value Reference Range Interpretation Comments POCT GLU (test code = 3359421655) 78 mg/dL 70-110 Lab Interpretation (test code = Normal 60288-1) [facility] GLUCOSE (AUTOMATED)2022-04-29 23:02:28 Test Item Value Reference Range Interpretation Comments POCT GLU (test code = 4641902846) 78 mg/dL 70-110 Lab Interpretation (test code = Normal 10075-1) [facility] GLUCOSE (AUTOMATED)2022-04-29 23:02:28 Test Item Value Reference Range Interpretation Comments POCT GLU (test code = 5005158569) 78 mg/dL 70-110 Lab Interpretation (test code = Normal 03054-9) [facility]:54 Test Item Value Reference Range Interpretation Comments PHOSPHORUS (test code = 3726586217) 2.4 mg/dL 2.5-5.0 L Lab Interpretation (test code = Abnormal 74844-7) [facility] 20:[facility]:54 Test Item Value Reference Range Interpretation Comments PHOSPHORUS (test code = 5469095824) 2.4 mg/dL 2.5-5.0 L Lab Interpretation (test code = Abnormal 01731-9) [facility] 20:[facility]:54 Test Item Value Reference Range Interpretation Comments PHOSPHORUS (test code = 5332606822) 2.4 mg/dL 2.5-5.0 L Lab Interpretation (test code = Abnormal 65586-5) [facility] (NA, K, CL, CO2, GLUCOSE, BUN, CREATININE, CA)2022-04-29 20:34:53 Test Item Value Reference Range Interpretation Comments NA (test code = 133 mmol/L 135-145 L 9907853381) K (test code = 3.5 mmol/L 3.5-5.0 4921668200) CL (test code = 110 mmol/L 98-108 H 1420379087) CO2 TOTAL (test code = 21 mmol/L 23-31 L 3393406648) AGAP (test code = 2-16 9981971910) BUN (test code = 10 mg/dL 7-23 4928962404) GLUCOSE (test code = 61 mg/dL 70-110 L 7813552761) CREATININE (test code = 0.39 mg/dL 0.50-1.04 L 6679687684) CALCIUM (test code = 7.5 mg/dL 8.6-10.6 L 0117221084) eGFR (test code = mL/min/1.73m2 8484487432) PARISH (test code = PARISH) Association of [...] tests). Lab Interpretation Abnormal (test code = 77686-2) [facility] 20:34:53 Test Item Value Reference Range Interpretation Comments MAGNESIUM (test code = 0812364969) 1.7 mg/dL 1.7-2.4 Lab Interpretation (test code = Normal 65763-8) [facility] (NA, K, CL, CO2, GLUCOSE, BUN, CREATININE, CA)2022-04-29 20:34:53 Test Item Value Reference Range Interpretation Comments NA (test code = 133 mmol/L 135-145 L 1817416381) K (test code = 3.5 mmol/L 3.5-5.0 7063744842) CL (test code = 110 mmol/L 98-108 H 2675111473) CO2 TOTAL (test code = 21 mmol/L 23-31 L 4473139416) AGAP (test code = 2-16 4118882943) BUN (test code = 10 mg/dL 7-23 6965834118) GLUCOSE (test code = 61 mg/dL 70-110 L 8083346403) CREATININE (test code = 0.39 mg/dL 0.50-1.04 L 3458543677) CALCIUM (test code = 7.5 mg/dL 8.6-10.6 L 6158264967) eGFR (test code = mL/min/1.73m2 6670778901) PARISH (test code = PARISH) Association of [...] tests). Lab Interpretation Abnormal (test code = 75803-2) [facility] Test Item Value Reference Range Interpretation Comments MAGNESIUM (test code = 3961916675) 1.7 mg/dL 1.7-2.4 Lab Interpretation (test code = Normal 74966-9) [facility] METABOLIC PANEL (NA, K, CL, CO2, GLUCOSE, BUN, CREATININE, CA)2022-04-29 20:34:53 Test Item Value Reference Range Interpretation Comments NA (test code = 133 mmol/L 135-145 L 0802149810) K (test code = 3.5 mmol/L 3.5-5.0 6787709788) CL (test code = 110 mmol/L 98-108 H 9972248660) CO2 TOTAL (test code = 21 mmol/L 23-31 L 7298839853) AGAP (test code = 2-16 8519705431) BUN (test code = 10 mg/dL 7-23 7970971780) GLUCOSE (test code = 61 mg/dL 70-110 L 7154049789) CREATININE (test code = 0.39 mg/dL 0.50-1.04 L 6662723470) CALCIUM (test code = 7.5 mg/dL 8.6-10.6 L 5390395772) eGFR (test code = mL/min/1.73m2 1793490757) PARISH (test code = PARISH) Association of [...] tests). Lab Interpretation Abnormal (test code = 54512-3) [facility] Test Item Value Reference Range Interpretation Comments MAGNESIUM (test code = 1298315731) 1.7 mg/dL 1.7-2.4 Lab Interpretation (test code = Normal 26412-9) [facility] [id number] 16:02:13 Test Item Value Reference Range Interpretation [...] (test code = 52.6 fL 39.0-49.9 H 68865-1) RDW-CV (test code = 16.9 % 12.0-15.5 H 788-0) PLT (test code = See_Comment H [Automated 777-3) message] The system which generated this result transmit palma reference range : 166 - 358 10*3/ ?L. The reference range was not u sed to interpret th is result as normal/abnormal . MPV (test code = 10.6 fL 9.5-12.9 90223-9) NRBC/100 WBC (test See_Comment [Automat ed code = 9210249766) message] The system which generated this result transmit palma reference range : 0.0 - 10.0 /100 WBCs. The reference range was not used to interpret this result as normal/abnormal . NRBC x10^3 (test code See_Comment [Auto mated = 8261931586) message] The system which generated this result transmit palma reference range : 10*3/?L. The reference range was not used to interpret this result as normal/abnormal . GRAN MAT (NEUT) % 88.1 % (test code = 770-8) IMM GRAN % (test code 0.70 % = 3976630536) LYMPH % (test code = 5.9 % 736-9) MONO % (test code = 5.1 % 5905-5) EOS % (test code = 0.1 % 713-8) BASO % (test code = 0.1 % 706-2) GRAN MAT x10^3(ANC) 25.64 10*3/uL 1.88-7.09 H (test code = 9413019985) IMM GRAN x10^3 (test 0.19 10*3/uL 0.00-0.06 H code = 2016826698) LYMPH x10^3 (test code 1.72 10*3/uL 1.32-3.29 = 731-0) MONO x10^3 (test code 1.50 10*3/uL 0.33-0.92 H = 742-7) EOS x10^3 (test code = 0.04 10*3/uL 0.03-0.39 711-2) BASO x10^3 (test code 0.04 10*3/uL 0.01-0.07 = 704-7) Lab Interpretation Abnormal (test code = 12385-5) [facility] WITH [id number] 16:02:13 Test Item Value Reference Range Interpretation [...] (test code = 52.6 fL 39.0-49.9 H 69628-9) RDW-CV (test code = 16.9 % 12.0-15.5 H 788-0) PLT (test code = See_Comment H [Automated 777-3) message] The system which generated this result transmit palma reference range : 166 - 358 10*3/ ?L. The reference range was not u sed to interpret th is result as normal/abnormal . MPV (test code = 10.6 fL 9.5-12.9 65688-5) NRBC/100 WBC (test See_Comment [Automat ed code = 9676694643) message] The system which generated this result transmit palma reference range : 0.0 - 10.0 /100 WBCs. The reference range was not used to interpret this result as normal/abnormal . NRBC x10^3 (test code See_Comment [Auto mated = 0881572291) message] The system which generated this result transmit palma reference range : 10*3/?L. The reference range was not used to interpret this result as normal/abnormal . GRAN MAT (NEUT) % 88.1 % (test code = 770-8) IMM GRAN % (test code 0.70 % = 1945798482) LYMPH % (test code = 5.9 % 736-9) MONO % (test code = 5.1 % 5905-5) EOS % (test code = 0.1 % 713-8) BASO % (test code = 0.1 % 706-2) GRAN MAT x10^3(ANC) 25.64 10*3/uL 1.88-7.09 H (test code = 5549599828) IMM GRAN x10^3 (test 0.19 10*3/uL 0.00-0.06 H code = 4573376931) LYMPH x10^3 (test code 1.72 10*3/uL 1.32-3.29 = 731-0) MONO x10^3 (test code 1.50 10*3/uL 0.33-0.92 H = 742-7) EOS x10^3 (test code = 0.04 10*3/uL 0.03-0.39 711-2) BASO x10^3 (test code 0.04 10*3/uL 0.01-0.07 = 704-7) Lab Interpretation Abnormal (test code = 01833-4) [facility] WITH [id number] 16:02:13 Test Item Value Reference Range Interpretation [...] (test code = 52.6 fL 39.0-49.9 H 41592-3) RDW-CV (test code = 16.9 % 12.0-15.5 H 788-0) PLT (test code = See_Comment H [Automated 777-3) message] The system which generated this result transmit palma reference range : 166 - 358 10*3/ ?L. The reference range was not u sed to interpret th is result as normal/abnormal . MPV (test code = 10.6 fL 9.5-12.9 47893-1) NRBC/100 WBC (test See_Comment [Automat ed code = 7678904074) message] The system which generated this result transmit palma reference range : 0.0 - 10.0 /100 WBCs. The reference range was not used to interpret this result as normal/abnormal . NRBC x10^3 (test code See_Comment [Auto mated = 3951472711) message] The system which generated this result transmit palma reference range : 10*3/?L. The reference range was not used to interpret this result as normal/abnormal . GRAN MAT (NEUT) % 88.1 % (test code = 770-8) IMM GRAN % (test code 0.70 % = 6726923989) LYMPH % (test code = 5.9 % 736-9) MONO % (test code = 5.1 % 5905-5) EOS % (test code = 0.1 % 713-8) BASO % (test code = 0.1 % 706-2) GRAN MAT x10^3(ANC) 25.64 10*3/uL 1.88-7.09 H (test code = 1236135980) IMM GRAN x10^3 (test 0.19 10*3/uL 0.00-0.06 H code = 2653747128) LYMPH x10^3 (test code 1.72 10*3/uL 1.32-3.29 = 731-0) MONO x10^3 (test code 1.50 10*3/uL 0.33-0.92 H = 742-7) EOS x10^3 (test code = 0.04 10*3/uL 0.03-0.39 711-2) BASO x10^3 (test code 0.04 10*3/uL 0.01-0.07 = 704-7) Lab Interpretation Abnormal (test code = 93285-9) [facility]:11:08 Test Item Value Reference Range Interpretation Comments PHOSPHORUS (test code = 0546451606) 2.8 mg/dL 2.5-5.0 Lab Interpretation (test code = Normal 31104-8) [facility] 09:11:08 Test Item Value Reference Range Interpretation Comments MAGNESIUM (test code = 0983933930) 2.0 mg/dL 1.7-2.4 Lab Interpretation (test code = Normal 39625-0) [facility] (NA, K, CL, CO2, GLUCOSE, BUN, CREATININE, CA)2022-04-29 09:11:08 Test Item Value Reference Range Interpretation Comments NA (test code = 136 mmol/L 135-145 1687071911) K (test code = 3.9 mmol/L 3.5-5.0 5292199029) CL (test code = 111 mmol/L 98-108 H 8295916068) CO2 TOTAL (test code = 22 mmol/L 23-31 L 8766982293) AGAP (test code = 2-16 0936186412) BUN (test code = 13 mg/dL 7-23 6650581272) GLUCOSE (test code = 94 mg/dL 70-110 3345006844) CREATININE (test code = 0.45 mg/dL 0.50-1.04 L 7990246814) CALCIUM (test code = 7.8 mg/dL 8.6-10.6 L 5681519513) eGFR (test code = mL/min/1.73m2 8181536669) PARISH (test code = PARISH) Association of [...] tests). Lab Interpretation Abnormal (test code = 74776-6) [facility] 09:11:08 Test Item Value Reference Range Interpretation Comments PHOSPHORUS (test code = 0692419206) 2.8 mg/dL 2.5-5.0 Lab Interpretation (test code = Normal 80949-5) [facility] 09:11:08 Test Item Value Reference Range Interpretation Comments MAGNESIUM (test code = 7920505570) 2.0 mg/dL 1.7-2.4 Lab Interpretation (test code = Normal 53093-0) [facility] (NA, K, CL, CO2, GLUCOSE, BUN, CREATININE, CA)2022-04-29 09:11:08 Test Item Value Reference Range Interpretation Comments NA (test code = 136 mmol/L 135-145 2860928056) K (test code = 3.9 mmol/L 3.5-5.0 5503305429) CL (test code = 111 mmol/L 98-108 H 7719381767) CO2 TOTAL (test code = 22 mmol/L 23-31 L 3207477943) AGAP (test code = 2-16 7245857380) BUN (test code = 13 mg/dL 7-23 6459704792) GLUCOSE (test code = 94 mg/dL 70-110 8664932861) CREATININE (test code = 0.45 mg/dL 0.50-1.04 L 9905531401) CALCIUM (test code = 7.8 mg/dL 8.6-10.6 L 6544151906) eGFR (test code = mL/min/1.73m2 0961870084) PARISH (test code = PARISH) Association of [...] tests). Lab Interpretation Abnormal (test code = 90948-3) [facility] 09:11:08 Test Item Value Reference Range Interpretation Comments PHOSPHORUS (test code = 3303548318) 2.8 mg/dL 2.5-5.0 Lab Interpretation (test code = Normal 22983-8) [facility] 09:11:08 Test Item Value Reference Range Interpretation Comments MAGNESIUM (test code = 1159939200) 2.0 mg/dL 1.7-2.4 Lab Interpretation (test code = Normal 36100-5) [facility] METABOLIC PANEL (NA, K, CL, CO2, GLUCOSE, BUN, CREATININE, CA)2022-04-29 09:11:08 Test Item Value Reference Range Interpretation Comments NA (test code = 136 mmol/L 135-145 3795826288) K (test code = 3.9 mmol/L 3.5-5.0 5165594227) CL (test code = 111 mmol/L 98-108 H 8297464131) CO2 TOTAL (test code = 22 mmol/L 23-31 L 3746338490) AGAP (test code = 2-16 5909895079) BUN (test code = 13 mg/dL 7-23 3468472359) GLUCOSE (test code = 94 mg/dL 70-110 7712019432) CREATININE (test code = 0.45 mg/dL 0.50-1.04 L 8349348321) CALCIUM (test code = 7.8 mg/dL 8.6-10.6 L 2894215795) eGFR (test code = mL/min/1.73m2 3999674387) PARISH (test code = PARISH) Association of [...] tests). Lab Interpretation Abnormal (test code = 79105-6) [facility] Packed RBC (in units), 1 Units 2022-04-29 01:44:36 Test Item Value Reference Range Interpretation Comments Cross Match Result Compatible (test code = 4409) ISBT Blood Type Code (test code = 360600) Unit Blood Type (test B Pos code = 4410) Unit Number (test [id number] code = 4411) Blood Expiration Date & Time (test code = 190465) Status Information Issued (test code = 4412) Product Red Blood Cells Identification (test code = 4413) Product Code (test F2702I06 Performed at [facility] code = 4414) Laboratory Services - [facility] Blood [address] Free: [phone] A No. [id number] [facility] Packed RBC (in units), 1 Units 2022-04-29 01:44:36 Test Item Value Reference Range Interpretation Comments Cross Match Result Compatible (test code = 4409) ISBT Blood Type Code (test code = 411130) Unit Blood Type (test B Pos code = 4410) Unit Number (test [id number] code = 4411) Blood Expiration Date & Time (test code = 374500) Status Information Issued (test code = 4412) Product Red Blood Cells Identification (test code = 4413) Product Code (test F0976D53 Performed at [facility] code = 4414) Laboratory Services - [facility] Blood [address] [place], [place] [address]Toll Free: [phone] A No. [id number] [facility] (in units), 1 Units 2022-04-29 01:44:36 Test Item Value Reference Range Interpretation Comments Cross Match Result Compatible (test code = 4409) ISBT Blood Type Code (test code = 004134) Unit Blood Type (test B Pos code = 4410) Unit Number (test [id number] code = 4411) Blood Expiration Date & Time (test code = 576148) Status Information Issued (test code = 4412) Product Red Blood Cells Identification (test code = 4413) Product Code (test Z7637P47 Performed at [facility] code = 4414) Laboratory Services - [facility] Blood [address] [place] [address]Smmu Free: [phone] A No. [id number] [facility] METABOLIC PANEL (NA, K, CL, CO2, GLUCOSE, BUN, CREATININE, CA)2022-04-28 20:46:48 Test Item Value Reference Range Interpretation Comments NA (test code = 138 mmol/L 135-145 4286876730) K (test code = 2.5 mmol/L 3.5-5.0 LL 6147586490) CL (test code = 123 mmol/L 98-108 H 7913745831) CO2 TOTAL (test code = 14 mmol/L 23-31 L 9297079372) AGAP (test code = 2-16 L 8853915794) BUN (test code = 10 mg/dL 7-23 9404972903) GLUCOSE (test code = 80 mg/dL 70-110 3592223321) CREATININE (test code = 0.33 mg/dL 0.50-1.04 L 8373077602) CALCIUM (test code = 5.4 mg/dL 8.6-10.6 LL 7712527671) eGFR (test code = mL/min/1.73m2 5731225553) PARISH (test code = PARISH) Association of [...] tests). Lab Interpretation Abnormal (test code = 10370-6) [facility] METABOLIC PANEL (NA, K, CL, CO2, GLUCOSE, BUN, CREATININE, CA)2022-04-28 20:46:48 Test Item Value Reference Range Interpretation Comments NA (test code = 138 mmol/L 135-145 1331930728) K (test code = 2.5 mmol/L 3.5-5.0 LL 4023325965) CL (test code = 123 mmol/L 98-108 H 7905067991) CO2 TOTAL (test code = 14 mmol/L 23-31 L 3603580041) AGAP (test code = 2-16 L 3996694593) BUN (test code = 10 mg/dL 7-23 3509072544) GLUCOSE (test code = 80 mg/dL 70-110 1704920820) CREATININE (test code = 0.33 mg/dL 0.50-1.04 L 4211880040) CALCIUM (test code = 5.4 mg/dL 8.6-10.6 LL 8564927345) eGFR (test code = mL/min/1.73m2 2933084089) PARISH (test code = PARISH) Association of [...] tests). Lab Interpretation Abnormal (test code = 20077-5) [facility] (NA, K, CL, CO2, GLUCOSE, BUN, CREATININE, CA)2022-04-28 20:46:48 Test Item Value Reference Range Interpretation Comments NA (test code = 138 mmol/L 135-145 0399271890) K (test code = 2.5 mmol/L 3.5-5.0 LL 1957286607) CL (test code = 123 mmol/L 98-108 H 2542014428) CO2 TOTAL (test code = 14 mmol/L 23-31 L 2924189412) AGAP (test code = 2-16 L 0519385197) BUN (test code = 10 mg/dL 7-23 6712671405) GLUCOSE (test code = 80 mg/dL 70-110 2204553742) CREATININE (test code = 0.33 mg/dL 0.50-1.04 L 1481854002) CALCIUM (test code = 5.4 mg/dL 8.6-10.6 LL 4480158917) eGFR (test code = mL/min/1.73m2 7273939863) PARISH (test code = PARISH) Association of [...] tests). Lab Interpretation Abnormal (test code = 16949-0) [facility]2022-10-18 20:35:16 Test Item Value Reference Range Interpretation Comments PHOSPHORUS (test code = 4723685797) 2.3 mg/dL 2.5-5.0 L Lab Interpretation (test code = Abnormal 25011-8) [facility]2022-10-18 20:35:16 Test Item Value Reference Range Interpretation Comments MAGNESIUM (test code = 1458505915) 1.3 mg/dL 1.7-2.4 L Lab Interpretation (test code = Abnormal 44731-8) [facility]2022-10-18 20:35:16 Test Item Value Reference Range Interpretation Comments PHOSPHORUS (test code = 4267927683) 2.3 mg/dL 2.5-5.0 L Lab Interpretation (test code = Abnormal 54929-0) [facility]2022-10-18 20:35:16 Test Item Value Reference Range Interpretation Comments MAGNESIUM (test code = 0847376729) 1.3 mg/dL 1.7-2.4 L Lab Interpretation (test code = Abnormal 82059-3) [facility] 20:35:16 Test Item Value Reference Range Interpretation Comments PHOSPHORUS (test code = 2513777626) 2.3 mg/dL 2.5-5.0 L Lab Interpretation (test code = Abnormal 13990-3) [facility] 20:35:16 Test Item Value Reference Range Interpretation Comments MAGNESIUM (test code = 1692051075) 1.3 mg/dL 1.7-2.4 L Lab Interpretation (test code = Abnormal 65675-4) [facility] GLUCOSE (AUTOMATED)2022-04-28 12:04:36 Test Item Value Reference Range Interpretation Comments POCT GLU (test code = 9408371646) 139 mg/dL 70-110 H Lab Interpretation (test code = Abnormal 60774-7) [facility] GLUCOSE (AUTOMATED)2022-04-28 12:04:36 Test Item Value Reference Range Interpretation Comments POCT GLU (test code = 3445536895) 139 mg/dL 70-110 H Lab Interpretation (test code = Abnormal 03712-8) [facility] GLUCOSE (AUTOMATED)2022-04-28 12:04:36 Test Item Value Reference Range Interpretation Comments POCT GLU (test code = 1902411278) 139 mg/dL 70-110 H Lab Interpretation (test code = Abnormal 62678-6) [facility] GLUCOSE (AUTOMATED)2022-04-28 12:04:36 Test Item Value Reference Range Interpretation Comments POCT GLU (test code = 7304104238) 139 mg/dL 70-110 H Lab Interpretation (test code = Abnormal 56904-7) [facility] WITH [id number] 09:47:25 Test Item Value Reference Range Interpretation [...] (test code = 53.9 fL 39-49.9 H 97458-4) RDW-CV (test code = 16.8 % 12-15.5 H 788-0) PLT (test code = See_Comment H [Automated 777-3) message] The system which generated this result transmit palma reference range : 166 - 358 10*3/ ?L. The reference range was not u sed to interpret th is result as normal/abnormal . MPV (test code = 10.0 fL 9.5-12.9 21604-3) NRBC/100 WBC (test See_Comment [Automat ed code = 1747322928) message] The system which generated this result transmit palma reference range : 0.0 - 10.0 /100 WBCs. The reference range was not used to interpret this result as normal/abnormal . NRBC x10^3 (test code See_Comment [Auto mated = 8359888351) message] The system which generated this result transmit palma reference range : 10*3/?L. The reference range was not used to interpret this result as normal/abnormal . GRAN MAT (NEUT) % 92.4 % (test code = 770-8) IMM GRAN % (test code 0.60 % = 7945389694) LYMPH % (test code = 3.5 % 736-9) MONO % (test code = 3.3 % 5905-5) EOS % (test code = 0.0 % 713-8) BASO % (test code = 0.2 % 706-2) GRAN MAT x10^3(ANC) 39.84 10*3/uL 1.88-7.09 H (test code = 3089544122) IMM GRAN x10^3 (test 0.24 10*3/uL 0-0.06 H code = 0706358965) LYMPH x10^3 (test code 1.53 10*3/uL 1.32-3.29 = 731-0) MONO x10^3 (test code 1.44 10*3/uL 0.33-0.92 H = 742-7) EOS x10^3 (test code = 0.03-0.39 L 711-2) BASO x10^3 (test code 0.08 10*3/uL 0.01-0.07 H = 704-7) BANDS (test code = Increased A 4485350816) Lab Interpretation Abnormal (test code = 66481-5) [facility] WITH [id number] 09:47:25 Test Item Value Reference Range Interpretation [...] (test code = 53.9 fL 39.0-49.9 H 98349-9) RDW-CV (test code = 16.8 % 12.0-15.5 H 788-0) PLT (test code = See_Comment H [Automated 777-3) message] The system which generated this result transmit palma reference range : 166 - 358 10*3/ ?L. The reference range was not u sed to interpret th is result as normal/abnormal . MPV (test code = 10.0 fL 9.5-12.9 60190-1) NRBC/100 WBC (test See_Comment [Automat ed code = 3040110894) message] The system which generated this result transmit palma reference range : 0.0 - 10.0 /100 WBCs. The reference range was not used to interpret this result as normal/abnormal . NRBC x10^3 (test code See_Comment [Auto mated = 1998090535) message] The system which generated this result transmit palma reference range : 10*3/?L. The reference range was not used to interpret this result as normal/abnormal . GRAN MAT (NEUT) % 92.4 % (test code = 770-8) IMM GRAN % (test code 0.60 % = 3038826519) LYMPH % (test code = 3.5 % 736-9) MONO % (test code = 3.3 % 5905-5) EOS % (test code = 0.0 % 713-8) BASO % (test code = 0.2 % 706-2) GRAN MAT x10^3(ANC) 39.84 10*3/uL 1.88-7.09 H (test code = 2916983963) IMM GRAN x10^3 (test 0.24 10*3/uL 0.00-0.06 H code = 9857371275) LYMPH x10^3 (test code 1.53 10*3/uL 1.32-3.29 = 731-0) MONO x10^3 (test code 1.44 10*3/uL 0.33-0.92 H = 742-7) EOS x10^3 (test code = 0.03-0.39 L 711-2) BASO x10^3 (test code 0.08 10*3/uL 0.01-0.07 H = 704-7) BANDS (test code = Increased A 6557807948) Lab Interpretation Abnormal (test code = 19669-4) [facility] WITH [id number] 09:47:25 Test Item Value Reference Range Interpretation [...] (test code = 53.9 fL 39.0-49.9 H 08020-6) RDW-CV (test code = 16.8 % 12.0-15.5 H 788-0) PLT (test code = See_Comment H [Automated 777-3) message] The system which generated this result transmit palma reference range : 166 - 358 10*3/ ?L. The reference range was not u sed to interpret th is result as normal/abnormal . MPV (test code = 10.0 fL 9.5-12.9 78502-6) NRBC/100 WBC (test See_Comment [Automat ed code = 2351869882) message] The system which generated this result transmit palma reference range : 0.0 - 10.0 /100 WBCs. The reference range was not used to interpret this result as normal/abnormal . NRBC x10^3 (test code See_Comment [Auto mated = 8595536910) message] The system which generated this result transmit palma reference range : 10*3/?L. The reference range was not used to interpret this result as normal/abnormal . GRAN MAT (NEUT) % 92.4 % (test code = 770-8) IMM GRAN % (test code 0.60 % = 7588969377) LYMPH % (test code = 3.5 % 736-9) MONO % (test code = 3.3 % 5905-5) EOS % (test code = 0.0 % 713-8) BASO % (test code = 0.2 % 706-2) GRAN MAT x10^3(ANC) 39.84 10*3/uL 1.88-7.09 H (test code = 9228718582) IMM GRAN x10^3 (test 0.24 10*3/uL 0.00-0.06 H code = 5917454685) LYMPH x10^3 (test code 1.53 10*3/uL 1.32-3.29 = 731-0) MONO x10^3 (test code 1.44 10*3/uL 0.33-0.92 H = 742-7) EOS x10^3 (test code = 0.03-0.39 L 711-2) BASO x10^3 (test code 0.08 10*3/uL 0.01-0.07 H = 704-7) BANDS (test code = Increased A 4842937211) Lab Interpretation Abnormal (test code = 65435-9) [facility] WITH [id number] 09:47:25 Test Item Value Reference Range Interpretation [...] (test code = 53.9 fL 39.0-49.9 H 37239-1) RDW-CV (test code = 16.8 % 12.0-15.5 H 788-0) PLT (test code = See_Comment H [Automated 777-3) message] The system which generated this result transmit palma reference range : 166 - 358 10*3/ ?L. The reference range was not u sed to interpret th is result as normal/abnormal . MPV (test code = 10.0 fL 9.5-12.9 17538-9) NRBC/100 WBC (test See_Comment [Automat ed code = 2896028269) message] The system which generated this result transmit palma reference range : 0.0 - 10.0 /100 WBCs. The reference range was not used to interpret this result as normal/abnormal . NRBC x10^3 (test code See_Comment [Auto mated = 6243040767) message] The system which generated this result transmit palma reference range : 10*3/?L. The reference range was not used to interpret this result as normal/abnormal . GRAN MAT (NEUT) % 92.4 % (test code = 770-8) IMM GRAN % (test code 0.60 % = 5858888187) LYMPH % (test code = 3.5 % 736-9) MONO % (test code = 3.3 % 5905-5) EOS % (test code = 0.0 % 713-8) BASO % (test code = 0.2 % 706-2) GRAN MAT x10^3(ANC) 39.84 10*3/uL 1.88-7.09 H (test code = 6628316195) IMM GRAN x10^3 (test 0.24 10*3/uL 0.00-0.06 H code = 2021307983) LYMPH x10^3 (test code 1.53 10*3/uL 1.32-3.29 = 731-0) MONO x10^3 (test code 1.44 10*3/uL 0.33-0.92 H = 742-7) EOS x10^3 (test code = 0.03-0.39 L 711-2) BASO x10^3 (test code 0.08 10*3/uL 0.01-0.07 H = 704-7) BANDS (test code = Increased A [id number]) Lab Interpretation Abnormal (test code = 54737-5) [facility] METABOLIC PANEL (NA, K, CL, CO2, GLUCOSE, BUN, CREATININE, CA)2022-04-28 09:18:41 Test Item Value Reference Range Interpretation Comments NA (test code = 135 mmol/L 135-145 9962482532) K (test code = 3.5 mmol/L 3.5-5 9437064914) CL (test code = 112 mmol/L 98-108 H 7825362931) CO2 TOTAL (test code = 19 mmol/L 23-31 L 1096200428) AGAP (test code = 2-16 6848683379) BUN (test code = 12 mg/dL 7-23 4877525173) GLUCOSE (test code = 115 mg/dL 70-110 H 5153682826) CREATININE (test code = 0.53 mg/dL 0.5-1.04 4995591141) CALCIUM (test code = 7.7 mg/dL 8.6-10.6 L 9806318487) eGFR (test code = mL/min/1.73m2 4211507204) PARISH (test code = PARISH) Association of [...] tests). Lab Interpretation Abnormal (test code = 88556-1) [facility] Test Item Value Reference Range Interpretation Comments MAGNESIUM (test code = 3572733809) 1.6 mg/dL 1.7-2.4 L Lab Interpretation (test code = Abnormal 41839-4) [facility] Test Item Value Reference Range Interpretation Comments PHOSPHORUS (test code = 7531230475) 3.9 mg/dL 2.5-5 Lab Interpretation (test code = Normal 22771-1) [facility] (NA, K, CL, CO2, GLUCOSE, BUN, CREATININE, CA)2022-04-28 09:18:41 Test Item Value Reference Range Interpretation Comments NA (test code = 135 mmol/L 135-145 4922347595) K (test code = 3.5 mmol/L 3.5-5.0 4450654144) CL (test code = 112 mmol/L 98-108 H 5460005912) CO2 TOTAL (test code = 19 mmol/L 23-31 L 1242089601) AGAP (test code = 2-16 8916755701) BUN (test code = 12 mg/dL 7-23 6942493658) GLUCOSE (test code = 115 mg/dL 70-110 H 5312693123) CREATININE (test code = 0.53 mg/dL 0.50-1.04 5146533224) CALCIUM (test code = 7.7 mg/dL 8.6-10.6 L 5215010073) eGFR (test code = mL/min/1.73m2 1996690874) PARISH (test code = PARISH) Association of [...] tests). Lab Interpretation Abnormal (test code = 72026-1) [facility] 09:18:41 Test Item Value Reference Range Interpretation Comments MAGNESIUM (test code = 8483045430) 1.6 mg/dL 1.7-2.4 L Lab Interpretation (test code = Abnormal 32087-4) [facility] 09:18:41 Test Item Value Reference Range Interpretation Comments PHOSPHORUS (test code = 5884091662) 3.9 mg/dL 2.5-5.0 Lab Interpretation (test code = Normal 35662-9) [facility] (NA, K, CL, CO2, GLUCOSE, BUN, CREATININE, CA)2022-04-28 09:18:41 Test Item Value Reference Range Interpretation Comments NA (test code = 135 mmol/L 135-145 1936663140) K (test code = 3.5 mmol/L 3.5-5.0 8100968881) CL (test code = 112 mmol/L 98-108 H 5757690860) CO2 TOTAL (test code = 19 mmol/L 23-31 L 7369663617) AGAP (test code = 2-16 3737686590) BUN (test code = 12 mg/dL 7-23 4982142721) GLUCOSE (test code = 115 mg/dL 70-110 H 8824733969) CREATININE (test code = 0.53 mg/dL 0.50-1.04 9945587860) CALCIUM (test code = 7.7 mg/dL 8.6-10.6 L 9426729066) eGFR (test code = mL/min/1.73m2 0202945606) PARISH (test code = PARISH) Association of [...] tests). Lab Interpretation Abnormal (test code = 72835-9) [facility] Test Item Value Reference Range Interpretation Comments MAGNESIUM (test code = 2453850938) 1.6 mg/dL 1.7-2.4 L Lab Interpretation (test code = Abnormal 69361-5) [facility] 09:18:41 Test Item Value Reference Range Interpretation Comments PHOSPHORUS (test code = 4898575304) 3.9 mg/dL 2.5-5.0 Lab Interpretation (test code = Normal 11827-6) [facility] METABOLIC PANEL (NA, K, CL, CO2, GLUCOSE, BUN, CREATININE, CA)2022-04-28 09:18:41 Test Item Value Reference Range Interpretation Comments NA (test code = 135 mmol/L 135-145 1318629104) K (test code = 3.5 mmol/L 3.5-5.0 8781517621) CL (test code = 112 mmol/L 98-108 H 0935826617) CO2 TOTAL (test code = 19 mmol/L 23-31 L 3306573629) AGAP (test code = 2-16 5642075613) BUN (test code = 12 mg/dL 7-23 8133997812) GLUCOSE (test code = 115 mg/dL 70-110 H 7610671262) CREATININE (test code = 0.53 mg/dL 0.50-1.04 1550013323) CALCIUM (test code = 7.7 mg/dL 8.6-10.6 L 0441914396) eGFR (test code = mL/min/1.73m2 0768212736) PARISH (test code = PARISH) Association of [...] tests). Lab Interpretation Abnormal (test code = 68798-9) [facility] 09:18:41 Test Item Value Reference Range Interpretation Comments MAGNESIUM (test code = 9688836326) 1.6 mg/dL 1.7-2.4 L Lab Interpretation (test code = Abnormal 32324-7) [facility] 09:18:41 Test Item Value Reference Range Interpretation Comments PHOSPHORUS (test code = 0195203190) 3.9 mg/dL 2.5-5.0 Lab Interpretation (test code = Normal 71542-4) [facility] 20 + Lactic [id number] 04:06:47 Test Item Value Reference Range Interpretation Comments PH (test code = 2) 7.35-7.45 PCO2 (test code = See_Comment L [Automate d 6645459120) message] The sy stem which generated this result transmitted reference range : 35 - 45 mmHg. The reference range was not used to interpret this result as normal/abnormal . PO2 (test code = See_Comment H [Automated 8407481237) message] The sy stem which generated this result transmitted reference range : 80 - 100 mmHg. The reference range was not used to interpret this result as normal/abnormal . HCO3 (test code = See_Comment L [Automate d 2746929204) message] The sy stem which generated this result transmitted reference range : 22 - 26 mEq/L. The reference range was not used to interpret this result as normal/abnormal . BE (test code = See_Comment L [Automated 8063548451) message] The sy stem which generated this result transmitted reference range : -3.0 - 3.0 mEq/ L. The reference r meli was not used to interpret this result as normal/abnormal . THB (test code = 9.1 g/dL 12-16 L 5362822723) %O2HB (test code = 98.7 % 94-99 1330172784) %COHB ART (test code = 0.2 % 0-1.5 1622402894) %METHB ART (test code = 0.3 % 0.4-1.5 L 2446024255) VOL%O2 ART (test code = 13.3 % 15-23 L 2854953733) NA (test code = 138 mmol/L 135-145 7321647707) K+ (test code = 3.5 mmol/L 3.5-5 2665224438) AC CA IONZ (test code = 4.60 mg/dL 4.5-5.3 9838602538) GLUCOSE (test code = 108 mg/dL 70-110 5277832478) LACTIC ACID (test code 1.38 mmol/L 0.5-2.2 = 3236735512) Lab Interpretation Abnormal (test code = 74475-3) [facility] + Lactic [id number] 04:06:47 Test Item Value Reference Range Interpretation Comments PH (test code = 2) 7.35-7.45 PCO2 (test code = See_Comment L [Automate d 7591066071) message] The sy stem which generated this result transmitted reference range : 35 - 45 mmHg. The reference range was not used to interpret this result as normal/abnormal . PO2 (test code = See_Comment H [Automated 9873446426) message] The sy stem which generated this result transmitted reference range : 80 - 100 mmHg. The reference range was not used to interpret this result as normal/abnormal . HCO3 (test code = See_Comment L [Automate d 6348750243) message] The sy stem which generated this result transmitted reference range : 22 - 26 mEq/L. The reference range was not used to interpret this result as normal/abnormal . BE (test code = See_Comment L [Automated 3890834457) message] The sy stem which generated this result transmitted reference range : -3.0 - 3.0 mEq/ L. The reference r meli was not used to interpret this result as normal/abnormal . THB (test code = 9.1 g/dL 12.0-16.0 L 7816266881) %O2HB (test code = 98.7 % 94.0-99.0 4909938908) %COHB ART (test code = 0.2 % 0.0-1.5 7520146102) %METHB ART (test code = 0.3 % 0.4-1.5 L 6239165635) VOL%O2 ART (test code = 13.3 % 15.0-23.0 L 6067633863) NA (test code = 138 mmol/L 135-145 7011853966) K+ (test code = 3.5 mmol/L 3.5-5.0 0242971049) AC CA IONZ (test code = 4.60 mg/dL 4.50-5.30 4141648606) GLUCOSE (test code = 108 mg/dL 70-110 2424965911) LACTIC ACID (test code 1.38 mmol/L 0.50-2.20 = 6266995287) Lab Interpretation Abnormal (test code = 98930-3) [facility] + Lactic [id number] 04:06:47 Test Item Value Reference Range Interpretation Comments PH (test code = 2) 7.35-7.45 PCO2 (test code = See_Comment L [Automate d 2162060016) message] The sy stem which generated this result transmitted reference range : 35 - 45 mmHg. The reference range was not used to interpret this result as normal/abnormal . PO2 (test code = See_Comment H [Automated 1627129766) message] The sy stem which generated this result transmitted reference range : 80 - 100 mmHg. The reference range was not used to interpret this result as normal/abnormal . HCO3 (test code = See_Comment L [Automate d 9930642718) message] The sy stem which generated this result transmitted reference range : 22 - 26 mEq/L. The reference range was not used to interpret this result as normal/abnormal . BE (test code = See_Comment L [Automated 6298035080) message] The sy stem which generated this result transmitted reference range : -3.0 - 3.0 mEq/ L. The reference r meli was not used to interpret this result as normal/abnormal . THB (test code = 9.1 g/dL 12.0-16.0 L 7357300238) %O2HB (test code = 98.7 % 94.0-99.0 5388462692) %COHB ART (test code = 0.2 % 0.0-1.5 2171284730) %METHB ART (test code = 0.3 % 0.4-1.5 L 8081563272) VOL%O2 ART (test code = 13.3 % 15.0-23.0 L 5331765074) NA (test code = 138 mmol/L 135-145 8585415059) K+ (test code = 3.5 mmol/L 3.5-5.0 3611168270) AC CA IONZ (test code = 4.60 mg/dL 4.50-5.30 4867825992) GLUCOSE (test code = 108 mg/dL 70-110 2337125748) LACTIC ACID (test code 1.38 mmol/L 0.50-2.20 = 3551461762) Lab Interpretation Abnormal (test code = 94663-6) [facility] + Lactic [id number] 04:06:47 Test Item Value Reference Range Interpretation Comments PH (test code = 2) 7.35-7.45 PCO2 (test code = See_Comment L [Automate d 4897718698) message] The sy stem which generated this result transmitted reference range : 35 - 45 mmHg. The reference range was not used to interpret this result as normal/abnormal . PO2 (test code = See_Comment H [Automated 5925367041) message] The sy stem which generated this result transmitted reference range : 80 - 100 mmHg. The reference range was not used to interpret this result as normal/abnormal . HCO3 (test code = See_Comment L [Automate d 9611177639) message] The sy stem which generated this result transmitted reference range : 22 - 26 mEq/L. The reference range was not used to interpret this result as normal/abnormal . BE (test code = See_Comment L [Automated 3037304057) message] The sy stem which generated this result transmitted reference range : -3.0 - 3.0 mEq/ L. The reference r meli was not used to interpret this result as normal/abnormal . THB (test code = 9.1 g/dL 12.0-16.0 L 3037590518) %O2HB (test code = 98.7 % 94.0-99.0 3421841114) %COHB ART (test code = 0.2 % 0.0-1.5 7964742756) %METHB ART (test code = 0.3 % 0.4-1.5 L 6372114178) VOL%O2 ART (test code = 13.3 % 15.0-23.0 L 0017646383) NA (test code = 138 mmol/L 135-145 8466092822) K+ (test code = 3.5 mmol/L 3.5-5.0 0320609367) AC CA IONZ (test code = 4.60 mg/dL 4.50-5.30 6842743861) GLUCOSE (test code = 108 mg/dL 70-110 0123893605) LACTIC ACID (test code 1.38 mmol/L 0.50-2.20 = 1861882647) Lab Interpretation Abnormal (test code = 17515-9) [facility] - ONCE [id number] 22:49:56 Test Item Value Reference Range Interpretation Comments ABO & RH (test code B Positive Performe d at [facility] = 20) Laboratory [facility] [place] [address] 523[address]Qrcn Free: [phone] A No. [id number] IAT (test code = Negative Performed a t [facility] 1185) Laboratory [facility] [place] [address] 17367Qglu Free: [phone] A No. [id number] [facility] - ONCE [id number] 22:49:56 Test Item Value Reference Range Interpretation Comments ABO & RH (test code B Positive Performe d at [facility] = 20) Laboratory [facility] [place] [address] 98377Dois Free: [phone] A No. [id number] IAT (test code = Negative Performed a t [facility] 1185) Laboratory [facility] Blood [place] [id number] Free: [phone] A No. [id number] [facility] - ONCE [id number] 22:49:56 Test Item Value Reference Range Interpretation Comments ABO & RH (test code B Positive Performe d at [facility] = 20) Laboratory [facility] Blood [place] [id number] Free: [phone] A No. [id number] IAT (test code = Negative Performed a t [facility] 1185) Laboratory [facility] Blood [place] [address]Toll Free: [phone] A No. [id number] [facility] - ONCE [id number] 22:49:56 Test Item Value Reference Range Interpretation Comments ABO & RH (test code B Positive Performe d at [facility] = 20) Laboratory [facility] Blood [place] [address]Toll Free: [phone] A No. [id number] IAT (test code = Negative Performed a t [facility] 1185) Laboratory [facility] Blood [place] [address]Toll Free: [phone] A No. [id number] [facility] WITH [id number] 16:17:23 Test Item Value Reference Range Interpretation Comments WBC (test code = See_Comment H [Automated 3790-2) message] The system which generated this result transmit palma reference range : 4.30 - 11.10 10*3/?L. The reference range was not used to interpret this result as normal/abnormal . RBC (test code = See_Comment L [Automated 9-8) message] The system which generated this result [...] (test code = 53.0 fL 39-49.9 H 74594-3) RDW-CV (test code = 16.3 % 12-15.5 H 788-0) PLT (test code = See_Comment H [Automated 777-3) message] The system which generated this result transmit palma reference range : 166 - 358 10*3/ ?L. The reference range was not u sed to interpret th is result as normal/abnormal . MPV (test code = 10.3 fL 9.5-12.9 08212-6) NRBC/100 WBC (test See_Comment [Automat ed code = 7221725862) message] The system which generated this result transmit palma reference range : 0.0 - 10.0 /100 WBCs. The reference range was not used to interpret this result as normal/abnormal . NRBC x10^3 (test code See_Comment [Auto mated = 1425028715) message] The system which generated this result transmit palma reference range : 10*3/?L. The reference range was not used to interpret this result as normal/abnormal . GRAN MAT (NEUT) % 71.6 % (test code = 770-8) IMM GRAN % (test code 0.60 % = 5546304259) LYMPH % (test code = 12.9 % 736-9) MONO % (test code = 10.4 % 5905-5) EOS % (test code = 4.0 % 713-8) BASO % (test code = 0.5 % 706-2) GRAN MAT x10^3(ANC) 10.42 10*3/uL 1.88-7.09 H (test code = 6205425255) IMM GRAN x10^3 (test 0.08 10*3/uL 0-0.06 H code = 8819548818) LYMPH x10^3 (test code 1.87 10*3/uL 1.32-3.29 = 731-0) MONO x10^3 (test code 1.51 10*3/uL 0.33-0.92 H = 742-7) EOS x10^3 (test code = 0.58 10*3/uL 0.03-0.39 H 711-2) BASO x10^3 (test code 0.07 10*3/uL 0.01-0.07 = 704-7) Lab Interpretation Abnormal (test code = 68138-8) [facility] Center[facility]OLIC PAN[facility] (82273)2022-04-20 15:45:18 Test Item Value Reference Range Interpretation Comments NA (test code = 138 mmol/L 135-145 7800638525) K (test code = 4.6 mmol/L 3.5-5 6822023818) CL (test code = 99 mmol/L 98-108 6860324996) CO2 TOTAL (test code = 25 mmol/L 23-31 2730538982) AGAP (test code = 2-16 0210541781) BUN (test code = 23 mg/dL 7-23 8100770374) GLUCOSE (test code = 129 mg/dL 70-110 H 0051396055) CREATININE (test code = 0.61 mg/dL 0.5-1.04 3495410493) TOTAL BILI (test code = 0.4 mg/dL 0.1-1.2 1430235014) CALCIUM (test code = 9.2 mg/dL 8.6-10.6 1039338570) T PROTEIN (test code = 7.3 g/dL 6.3-8.2 2817785693) ALBUMIN (test code = 3.4 g/dL 3.5-5 L 9256317540) ALK PHOS (test code = 130 U/L 34-122 H 6992930598) ALTv (test code = 15 U/L 5-35 1742-6) AST(SGOT) (test code = 26 U/L 13-40 8055558921) eGFR (test code = mL/min/1.73m2 7919940032) PARISH (test code = PARISH) Association of [...] tests). Lab Interpretation Abnormal (test code = 68714-4) [facility]
[2022-09-07 16:51] LABS: Absolute Lymphocytes (CBC) 3.1 K/uL (0.7-4.9); Hematocrit 30.8 % (36.0-45.0); Lymphocytes % 22.5 % (15.3-44.8); MCV 82.8 fL (80-100); MPV 8.8 fL (7.6-11.3); RBC Red Blood Cell Count 3.72 M/uL (3.86-4.86)
[2022-09-07 17:06] LABS: C-Reactive Protein 38.7 mg/L (<3.00); Potassium 3.6 mmol/L (3.5-5.1)
[2022-09-07] MEDS ORDERED: MORPHINE 4 MG/ML SYR ONE ×2 (17:12→20:08)
--- NOTE | 2022-09-07 17:57 | EDPHYS ---
Physician Documentation [facility] Name: Carolyn Cordoba Age: 72 yrs Sex: Female : 1950 Arrival Date: 09/07/2022 Time: 15:52 Bed 26 Private MD: ED Physician Wale Finley HPI: 09/07 15:53 This 72 yrs old Unknown Female presents to ER via Unassigned with complaints of tibial ms3 plate infection, right femur infection. 15:53 72-year-old female presents via [facility] for right tibia and right femur ms3 infections. Patient states her pain is a 10/10. Patient took [place] prior to EMS arrival. EMS administered 50 mcg of fentanyl in route to the hospital. Patient states she had tibia and femur surgery December 2020 at [facility].. Historical: - Allergies: 15:56 Xanax; mb9 - PMHx: 15:56 COPD; GERD; mb9 - PSHx: 15:56 Right tibia; Right femur; mb9 - Immunization history:: Adult Immunizations up to date. - Social history:: Smoking status: Patient/guardian denies using tobacco. ROS: 15:53 Constitutional: Negative for fever, and chills. Neck: Negative for injury, pain, and ms3 swelling, Cardiovascular: Negative for chest pain, and palpitations. Respiratory: Negative for shortness of breath, cough, wheezing, and pleuritic chest pain, Abdomen/GI: Negative for abdominal pain, nausea, vomiting, diarrhea, and constipation, Back: Negative for injury and pain. 15:53 Skin: Positive for ulceration. 15:53 All other systems are negative. Exam: 15:53 Constitutional: This is a well developed, well nourished patient who is awake, alert, ms3 and in no acute distress. Head/Face: Normocephalic, atraumatic. Neck: Trachea midline, no cervical lymphadenopathy. Supple, full range of motion without nuchal rigidity, or vertebral point tenderness. No Meningismus. Chest/axilla: Normal chest wall appearance and motion. Nontender with no deformity. Cardiovascular: Regular rate and rhythm with a normal S1 and S2. No gallops, murmurs, or rubs. Normal PMI, no JVD. No pulse deficits. Respiratory: Lungs have equal breath sounds bilaterally, clear to auscultation and percussion. No rales, rhonchi or wheezes noted. No increased work of breathing, no retractions or nasal flaring. Abdomen/GI: Soft, non-tender, with normal bowel sounds. No distension or tympany. No guarding or rebound. No evidence of tenderness throughout. 15:53 Skin: Right tibia ulceration with metal plate showing through ulcer. Right lateral thigh incision with exudative drainage.. Vital Signs: 15:53 BP 127 / 61; Pulse 73; Resp 20; Temp 96.9(O); Pulse Ox 99% on R/A; Weight 65.77 kg (R); mb9 Height 5 ft. 3 in. (160.02 cm) (R); Pain 8/10; 16:46 BP 122 / 67; Pulse 78; Resp 18; Pulse Ox 100% ; mb9 17:48 BP 129 / 66; Pulse 87; Resp 16; Pulse Ox 100% on R/A; mb9 18:56 BP 115 / 57; Pulse 78; Resp 16; Pulse Ox 100% ; mb9 20:09 BP 124 / 87; Pulse 76; Resp 16; Pulse Ox 100% ; mb9 15:53 Body Mass Index 25.69 (65.77 kg, 160.02 cm) mb9 MDM: 15:52 Patient medically screened. ms3 15:56 Differential diagnosis: Hardware infection vs thigh ulceration vs femur hardware ms3 infection. 19:17 Data reviewed: vital signs, nurses notes, lab test result(s), radiologic studies, and ms3 as a result, I will discharge patient. Consideration of Admission/Observation Escalation of care including admission/observation considered. Discussed case with Dr López at [facility] and he recommends outpatient follow up with his partner Dr Jack Durán. Patient to return to the ED if she becomes febrile or tachycardic. . 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 Patient to return to the ED if she becomes febrile or tachycardic. . I considered the following discharge prescriptions or medication management in the emergency department Medications were administered in the Emergency Department. See MAR. Independent interpretation of the following test(s) in the Emergency Department X-Ray: My interpretation is Right tibia images reviewed by me: No fx identified. Historians other than the Patient: EMS: [facility]. Counseling: I had a detailed discussion with the patient and/or guardian regarding: the historical points, exam findings, and any diagnostic results supporting the discharge/admit diagnosis, lab results, radiology results, the need for outpatient follow up, to return to the emergency department if symptoms worsen or persist or if there are any questions or concerns that arise at home. ED course: Discussed 's recommendations with patient. Patient understands and agrees with plan. Return precautions discussed to include fever, elevated heart rate, worsening condition, or any other concerns. Patient given Dr. Durán's contact phone number. On reevaluation patient is alert and oriented x4, no apparent distress, nontoxic-appearing.. 09/07 15:59 Order name: CBC with Diff ms3 09/07 15:59 Order name: BMP ms3 09/07 15:59 Order name: CRP ms3 09/07 17:04 Order name: CBC with Automated Diff; Complete Time: 17:07 EDMS 09/07 17:06 Order name: Basic Metabolic Panel; Complete Time: 17:07 EDMS 09/07 17:06 Order name: C-Reactive Protein; Complete Time: 17:07 EDMS 09/07 15:59 Order name: Tib Fib Right XRAY ms3 09/07 15:59 Order name: Femur Right XRAY ms3 09/07 17:57 Order name: SARS RAPID iw 09/07 18:14 Order name: RAD EDMS 09/07 18:18 Order name: RAD EDMS 09/07 18:42 Order name: SARS-COV-2 Antigen Rapid EDAK Administered Medications: 17:12 Drug: morphine 4 mg Route: IVP; Infused Over: 4 mins; Site: right forearm; mb9 17:42 Follow up: Response: No adverse reaction mb9 18:56 Drug: Meropenem 1 grams Route: IV; Rate: calculated rate; Site: right forearm; mb9 19:54 Follow up: Response: No adverse reaction; IV Status: Completed infusion mb9 19:54 Not Given (Physician Discretion): morphine 2 mg IVP once over 4 mins mb9 20:08 Drug: morphine 4 mg Route: IM; Site: left deltoid; mb9 20:08 Follow up: Response: No adverse reaction mb9 Disposition Summary: 09/07/22 19:16 Discharge Ordered Location: Home ms3 Condition: Stable(09/07/22 19:16) ms3 Diagnosis - Non-pressure chronic ulcer of unspecified part of right lower leg with unspecified ms3 severity - Tibial Hardware infection ms3 - Femoral Hardware infection ms3 Followup: ms3 - With: Wale Finley DO - When: 2 - 3 days - Reason: Recheck today's complaints, Dr Jack Durán Discharge Instructions: - Discharge Summary Sheet ms3 - Orthopedic Hardware Removal ms3 Forms: - Medication Reconciliation Form ms3 - Thank You Letter ms3 - Antibiotic Education ms3 - Prescription Opioid Use ms3 Signatures: Dispatcher [employer] EDMS Wale Finley DO DO ms3 Jan Hernandez MD MD sp3 Blanquita Andrew, RN RN kd3 Reema Mcclendon RN RN mb9 Corrections: (The following items were deleted from the chart) 19:12 17:57 ms3 ms3 19:12 17:57 [facility] ms3 ms3 19:12 17:57 Higher level of care ms3 ms3 19:12 17:57 Stable ms3 ms3 19:12 17:57 new ms3 ms3 19:12 17:57 are unchanged ms3 ms3 19:12 17:57 Tibial hardware infection ms3 ms3 19:12 17:57 Femoral igor infection ms3 ms3 19:12 17:57 Post operative incision infection ms3 ms3
--- NOTE | 2022-09-07 17:57 | ER ---
Nurse's Notes [facility] Name: Carolyn Cordoba Age: 72 yrs Sex: Female : 1950 Arrival Date: 09/07/2022 Time: 15:52 Bed 26 Private MD: Diagnosis: Non-pressure chronic ulcer of unspecified part of right lower leg with unspecified severity;Tibial Hardware infection;Femoral Hardware infection Presentation: 09/07 15:53 Chief complaint: EMS states: "pts wound care nurse sent her because they think her mb9 right tibia and right femur is infected from the surgery she had almost 2 years ago. Pt complain of pain in right buttocks and leg. Gave 50mcg of fentanyl IM in route". Coronavirus screen: Vaccine status: Patient reports receiving the 2nd dose of the covid vaccine. Ebola Screen: No symptoms or risks identified at this time. Initial Sepsis Screen: Does the patient meet any 2 criteria? No. Patient's initial sepsis screen is negative. Does the patient have a suspected source of infection? No. Patient's initial sepsis screen is negative. Risk Assessment: Do you want to hurt yourself or someone else? Patient reports no desire to harm self or others. 15:53 Method Of Arrival: EMS: [facility] mb9 15:53 Acuity: MADI 3 mb9 Triage Assessment: 15:57 General: Appears uncomfortable, Behavior is anxious. Pain: Complains of pain in right mb9 leg Pain radiates to right femur Pain currently is 8 out of 10 on a pain scale. Quality of pain is described as throbbing, Pain began gradually, Is continuous, Aggravated by exercise, increased activity, repositioning, weight bearing. Neuro: Wilson Agitation-Sedation Scale (RASS): 0 - Alert and Calm Level of Consciousness is awake, alert, obeys commands, Oriented to person, place, time, situation, Appropriate for age. Cardiovascular: Heart tones S1 S2 present Rhythm is regular. Respiratory: Airway is patent Respiratory effort is even, unlabored, Respiratory pattern is regular, symmetrical, Breath sounds are clear bilaterally. GI: Abdomen is round non-distended, Bowel sounds present X 4 quads. Abd is soft and non tender X 4 quads. : No signs and/or symptoms were reported regarding the genitourinary system. Musculoskeletal: Range of motion: limited in right hip, right knee and right ankle. 15:59 Derm: right femur with purulent drainage. Right tibia is inflammed, red, and plate is mb9 showing. Historical: - Allergies: 15:56 Xanax; mb9 - PMHx: 15:56 COPD; GERD; mb9 - PSHx: 15:56 Right tibia; Right femur; mb9 - Immunization history:: Adult Immunizations up to date. - Social history:: Smoking status: Patient/guardian denies using tobacco. Screenin:58 [facility] ED Fall Risk Assessment (Adult) History of falling in the last 3 months, mb9 including since admission No falls in past 3 months (0 pts) Confusion or Disorientation No (0 pts) Intoxicated or Sedated No (0 pts) Impaired Gait Yes (1 pt) Mobility Assist Device Used Yes (1 pt) Altered Elimination Yes (1 pt) Score/Fall Risk Level 3 or more points = High Risk Oriented to surroundings, Maintained a safe environment, Educated pt \\T\\ family on fall prevention, incl call for assistance when getting out of bed. Abuse screen: Denies threats or abuse. Nutritional screening: No deficits noted. Tuberculosis screening: No symptoms or risk factors identified. Assessment: 16:00 Reassessment: see triage assessment. mb9 17:49 Reassessment: No changes from previously documented assessment. Patient and/or family mb9 updated on plan of care and expected duration. Pain level reassessed. Patient is alert, oriented x 3, equal unlabored respirations, skin warm/dry/pink. 18:56 Reassessment: No changes from previously documented assessment. Patient and/or family mb9 updated on plan of care and expected duration. Pain level reassessed. Patient is alert, oriented x 3, equal unlabored respirations, skin warm/dry/pink. 19:45 Reassessment: No changes from previously documented assessment. Patient and/or family mb9 updated on plan of care and expected duration. Pain level reassessed. Patient is alert, oriented x 3, equal unlabored respirations, skin warm/dry/pink. Patient states feeling better. 20:08 Reassessment: Gave report to [facility]. mb9 Vital Signs: 15:53 BP 127 / 61; Pulse 73; Resp 20; Temp 96.9(O); Pulse Ox 99% on R/A; Weight 65.77 kg (R); mb9 Height 5 ft. 3 in. (160.02 cm) (R); Pain 8/10; 16:46 BP 122 / 67; Pulse 78; Resp 18; Pulse Ox 100% ; mb9 17:48 BP 129 / 66; Pulse 87; Resp 16; Pulse Ox 100% on R/A; mb9 18:56 BP 115 / 57; Pulse 78; Resp 16; Pulse Ox 100% ; mb9 20:09 BP 124 / 87; Pulse 76; Resp 16; Pulse Ox 100% ; mb9 15:53 Body Mass Index 25.69 (65.77 kg, 160.02 cm) mb9 ED Course: 15:52 Patient arrived in ED. ms3 15:52 Wale Finley DO is Attending Physician. ms3 15:53 Reema Mcclendon, ERNESTO is Primary Nurse. mb9 15:53 Arm band placed on. mb9 15:56 Triage completed. mb9 16:30 Inserted saline lock: 24 gauge in right forearm, using aseptic technique. mb9 16:58 Placed in gown. Bed in low position. Call light in reach. Side rails up X 1. Client mb9 placed on continuous cardiac and pulse oximetry monitoring. NIBP monitoring applied. 16:58 No provider procedures requiring assistance completed. mb9 18:01 initiated transfer to [facility]. bd 18:38 RAD In Process Unspecified. EDMS 18:38 RAD In Process Unspecified. EDMS 19:12 Wale Finley DO is Referral Physician. ms3 20:09 IV discontinued, intact, bleeding controlled, No redness/swelling at site. Pressure mb9 dressing applied. Administered Medications: 17:12 Drug: morphine 4 mg Route: IVP; Infused Over: 4 mins; Site: right forearm; mb9 17:42 Follow up: Response: No adverse reaction mb9 18:56 Drug: Meropenem 1 grams Route: IV; Rate: calculated rate; Site: right forearm; mb9 19:54 Follow up: Response: No adverse reaction; IV Status: Completed infusion mb9 19:54 Not Given (Physician Discretion): morphine 2 mg IVP once over 4 mins mb9 20:08 Drug: morphine 4 mg Route: IM; Site: left deltoid; mb9 20:08 Follow up: Response: No adverse reaction mb9 Medication: 16:58 VIS not applicable for this client. mb9 Outcome: 17:57 ER care complete, transfer ordered by MD. ms3 19:16 Discharge ordered by . ms3 20:09 Discharged to home via ambulance. mb9 20:09 Condition: stable 20:09 Discharge instructions given to patient, Instructed on discharge instructions, follow up and referral plans. Demonstrated understanding of instructions, follow-up care. 20:09 Patient left the ED. mb9 Signatures: Dispatcher [employer] EDMS Vi Uribe Marcus, DO DO ms3 Reema Mcclendon, RN RN mb9 Corrections: (The following items were deleted from the chart) 15:59 15:53 Chief complaint: EMS states: "pts wound care nurse sent her because they think mb9 her right tibia and right femur is infected from the surgery she had almost 2 years ago. Pt complain of pain in right buttocks and leg. Gave 50mg of fentanyl IM in route" mb9
--- NOTE | 2022-09-07 18:14 | RAD REPORT ---
EXAM DESCRIPTION: RAD - Tib Fib Right - 09/07/2022 5:31 pm CLINICAL HISTORY: Pain COMPARISON: None. FINDINGS: Two views of the left tibia and fibula. No fracture is identified. Revision total knee arthroplasty hardware in place. Lucency underlying the anterior and lateral tibial plateau components. Partially healed obliques midshaft fibular fracture with incomplete remodeling. Lateral mid to distal tibial plate and screw fixation in place, with some medial offset of the most proximal aspect of the fixation plate degenerative to the cortex. Distal f ibular/ lateral malleolar fixation plate and screws. No periscrew lucencies, although diffuse osteope jerome somewhat limits evaluation. No foreign body or other soft tissue abnormality. IMPRESSION: Lucencies underlying the anterior and lateral aspects of the tibial plateau component of the revision knee arthroplasty, raise concern for loosening or underlying infection. Please correlat e clinically. Healing midshaft fibular fracture. Other fixation hardware as above.
--- NOTE | 2022-09-07 18:17 | RAD REPORT ---
EXAM DESCRIPTION: RAD - Femur Right - 09/07/2022 5:31 pm CLINICAL HISTORY: Pain COMPARISON: None. FINDINGS: Two views of the right femur. Right femoral prosthesis in place. Right femoroacetabular component is present, with some crescentic lucencies underlying the superolateral aspect of the acetabular component. . No evidence of periprost atic fracture. Some heterotopic calcification medial to the proximal and distal femoral stem componen ts. No fracture is identified. There is no dislocation or periosteal reaction noted. No acute or susp icious bony finding. IMPRESSION: Osseous lucency underlying the superolateral aspect of the acetabular component, may be concerning for loosening or an underlying infection. Please correlate clinically.
[2022-09-07 18:41] LABS: SARS-CoV-2 Antigen Rapid Res Negative (Negative)
[2022-09-07] MEDS ORDERED: NA CHLORIDE 0.9% 100 ML ONE (18:53)
[2022-09-07] MEDS ORDERED: Meropenem 1000 MG/VIAL IV ONE (18:53)
[2022-09-07 20:41] VITALS: TEMP 96.9
[2022-09-07 20:42] VITALS: O2SAT 100
[2022-09-07 20:45] VITALS: BP 124/87
== END 2022-09-07 20:09 | disposition home or self-care (01) ==
LOC: ER 15:48
DX: L97.919 Non-pressure chronic ulcer of unspecified part of right lower leg with unspecified severity (principal); T84.7XXA Infection and inflammatory reaction due to other internal orthopedic prosthetic devices, implants and grafts, initial encounter; J44.9 Chronic obstructive pulmonary disease, unspecified; Z20.822 Contact with and (suspected) exposure to COVID-19; Z88.5 Allergy status to narcotic agent
CPT/HCPCS: 85025; 80048; 36415; 86140; 73552; 73590; 87811; J2185; 96365; 96372; 96375; 99284

== ENCOUNTER 2024-05-03 14:19 | Emergency (ER) | payer OTHER ==
--- OUTSIDE RECORDS SUMMARY | 2024-05-03 14:22 | XMS REPORT | Clinical Summary ---
Author Name Unknown Organization [facility] Address [address] [place] [address] Care Team Providers Care Investigative Reporter Name Role Phone Unavailable Primary Care Provider Unavailabl e Social History Tobacco Use Types Packs/Day Years Used Date Smoking Tobacco: Never Assessed Sex and Gender Information Value Date Recorded Sex Assigned at Not on file Gender Identity Not on file Sexual Orientation Not on file Plan of Treatment Health Maintenance Due Date Last Done Comments Pneumococcal Vaccine: 65+ Years (1 of 1 - PCV) 016 COVID-19 Vaccine (2023- season) 2024 Influenza Vaccine (#1) 2024
--- NOTE | 2024-05-03 15:29 | RAD REPORT ---
Exam:Foot Left 3 View CLINICAL HISTORY: Left foot pain FINDINGS: Lucencies are present within the upper posterior left calcaneus. Large plantar calcaneal spur. Osteoporosis Marked hallux valgus deformity. Lateral subluxation first proximal phalanx. IMPRESSION: Lucencies within the posterior calcaneus. This could represent fracture, osteomyelitis or prominent t rabecula. MRI would be helpful for further evaluation
[2024-05-03] MEDS ORDERED: HYDROCODONE/APAP 10/325 TAB ONE (15:38)
--- NOTE | 2024-05-03 16:03 | ER ---
Nurse's Notes [facility] Name: Carolyn Cordoba Age: 74 yrs Sex: Female : 1950 Arrival Date: 05/03/2024 Time: 14:19 Bed 17 Private MD: Diagnosis: Possible calcaneal fracture, closed, left foot Presentation: 05/03 14:18 Chief complaint: EMS states: STATES WAS TRANSFERRING FROM CAR TO WHEELCHAIR. HAS ONE db LEG. FELT A POP ON LEFT ANKLE AND SUDDEN PAIN. 75 MCG OF FENTANYL GIVEN BY EMS. Coronavirus screen: Client denies travel out of the [place] in the last 14 days. At this time, the client does not indicate any symptoms associated with coronavirus-19. Ebola Screen: Patient negative for fever greater than or equal to 101.5 degrees Fahrenheit, and additional compatible Ebola Virus Disease symptoms Patient denies exposure to infectious person. Patient denies travel to an Ebola-affected area in the 21 days before illness onset. No symptoms or risks identified at this time. Initial Sepsis Screen: Does the patient meet any 2 criteria? No. Patient's initial sepsis screen is negative. Does the patient have a suspected source of infection? No. Patient's initial sepsis screen is negative. Risk Assessment: Do you want to hurt yourself or someone else? Patient reports no desire to harm self or others. Onset of symptoms was May 03, 2024. 14:18 Method Of Arrival: EMS: [facility] db 14:18 Acuity: MADI 4 db 14:18 Care prior to arrival: Medication(s) given: FENTANYL 75 MCG IV IV initiated. 22 GA, in db the right hand. Triage Assessment: 14:18 General: Appears in no apparent distress. comfortable, Behavior is calm, cooperative. db Pain: Complains of pain in left leg. Musculoskeletal: Amputation of right leg. Circulation, motion, and sensation intact. Capillary refill < 3 seconds, Range of motion: limited in left ankle. Historical: - Allergies: 14:39 Xanax; db - PMHx: 14:39 COPD; GERD; db - PSHx: 14:39 Right femur; Right tibia; db - Immunization history:: Adult Immunizations unknown. - Infectious Disease History:: Denies. - Social history:: Smoking status: Patient denies any tobacco usage or history of. - Family history:: not pertinent. - Hospitalizations: : No recent hospitalization is reported. Assessment: 15:00 Reassessment: Patient appears in no apparent distress at this time. Patient and/or db family updated on plan of care and expected duration. Pain level reassessed. Patient is alert, oriented x 3, equal unlabored respirations, skin warm/dry/pink. 15:39 Reassessment: PATIENT REQUESTS PAIN MEDICATION. DR. VILLANUEVA NOTIFIED. NEW ORDER FOR db HYDROCODONE 10 MG RECEIVED. 15:40 Reassessment: Patient appears in no apparent distress at this time. Patient and/or db family updated on plan of care and expected duration. Pain level reassessed. Patient is alert, oriented x 3, equal unlabored respirations, skin warm/dry/pink. 16:40 Reassessment: Patient appears in no apparent distress at this time. Patient and/or jb4 family updated on plan of care and expected duration. Pain level reassessed. Patient is alert, oriented x 3, equal unlabored respirations, skin warm/dry/pink. boot placed on pt. Pt assisted into vehicle by nursing staff. Vital Signs: 14:18 BP 135 / 70; Pulse 73; Resp 16; Temp 98.9; Pulse Ox 96% ; Weight 90.72 kg; Height 5 ft. db 3 in. ; 14:18 Body Mass Index 35.43 (90.72 kg, 160.02 cm) db ED Course: 14:18 Arm band placed on Patient placed in an exam room. db 14:27 Patient arrived in ED. db 14:33 Aneudy Villanueva MD is Attending Physician. rn 14:39 Triage completed. db 14:40 Maintain EMS IV. Dressing intact. Good blood return noted. Site clean \T\ dry. Gauge \T\ db site: 22 G RIGHT HAND. 14:59 XRAY Foot LEFT 3 View In Process Unspecified. EDMS 15:39 Jen Villanueva, ERNESTO is Primary Nurse. db 16:40 No provider procedures requiring assistance completed. IV discontinued, intact, jb4 bleeding controlled, No redness/swelling at site. Pressure dressing applied. Administered Medications: 15:39 Drug: HYDROcodone-acetaminophen PO 10 mg-325 mg 1 tabs PO once Route: PO; db Outcome: 16:02 Discharge ordered by . rn 16:40 Discharged to home via wheelchair, kaylee 16:40 Condition: stable 16:40 Discharge instructions given to patient, Instructed on discharge instructions, follow up and referral plans. Demonstrated understanding of instructions, follow-up care, 16:41 Patient left the ED. jb4 Signatures: Dispatcher [employer] EDAneudy De Anda MD MD rn Bryson, James, RN RN jb4 Jen Villanueva RN ERNESTO db
--- NOTE | 2024-05-03 16:03 | EDPHYS ---
Physician Documentation [facility] Name: Carolyn Cordoba Age: 74 yrs Sex: Female : 1950 Arrival Date: 05/03/2024 Time: 14:19 Bed 17 Private MD: ED Physician Aneudy Villanueva HPI: 05/03 15:20 This 74 yrs old Female presents to ER via EMS with complaints of Ankle Injury. rn 15:20 The patient presents with an injury, pain. The complaints affect the left foot. Onset: rn The symptoms/episode began/occurred just prior to arrival. Modifying factors: The symptoms are alleviated by nothing, the symptoms are aggravated by weight bearing. Severity of symptoms: At their worst the symptoms were moderate, in the emergency department the symptoms are unchanged. The patient has not experienced similar symptoms in the past. Patient reports transferring, stepped on left foot, felt a pop and pain immediately in the heel of the left foot. Did not fall or have direct trauma to the left foot.. Historical: - Allergies: 14:39 Xanax; db - PMHx: 14:39 COPD; GERD; db - PSHx: 14:39 Right femur; Right tibia; db - Immunization history:: Adult Immunizations unknown. - Infectious Disease History:: Denies. - Social history:: Smoking status: Patient denies any tobacco usage or history of. - Family history:: not pertinent. - Hospitalizations: : No recent hospitalization is reported. ROS: 15:20 Constitutional: Negative for fever, chills, and weight loss, Cardiovascular: Negative rn for chest pain, palpitations, and edema, Respiratory: Negative for shortness of breath, cough, wheezing, and pleuritic chest pain, Abdomen/GI: Negative for abdominal pain, nausea, vomiting, diarrhea, and constipation, MS/Extremity: Positive for left foot injury and pain Skin: Negative for injury, rash, and discoloration, Neuro: Negative for headache, weakness, numbness, tingling, and seizure, Exam: 15:20 Constitutional: This is a well developed, well nourished patient who is awake, alert, rn and in no acute distress. MS/ Extremity: Pulses equal, no cyanosis. Neurovascular intact. Mild tenderness at the left calcaneus. Mild tenderness along Achilles tendon without ecchymosis or swelling. No bony tenderness from the ankle up to the knee or hip. No gross deformity noted. No open wounds. Vital Signs: 14:18 BP 135 / 70; Pulse 73; Resp 16; Temp 98.9; Pulse Ox 96% ; Weight 90.72 kg; Height 5 ft. db 3 in. ; 14:18 Body Mass Index 35.43 (90.72 kg, 160.02 cm) db MDM: 14:33 Medical Screening Exam initiated rn 16:00 Differential diagnosis: fracture, sprain, arthritis. Data reviewed: vital signs, nurses rn notes, radiologic studies, plain films, and as a result, I will discharge patient. Counseling: I had a detailed discussion with the patient and/or guardian regarding the historical points, exam findings, and any diagnostic results supporting the discharge/admit diagnosis, radiology results, the need for outpatient follow up, to return to the emergency department if symptoms worsen or persist or if there are any questions or concerns that arise at home. Special discussion: I discussed with the patient/guardian in detail that at this point there is no indication for admission to the hospital. It is understood, however, that if the symptoms persist or worsen the patient needs to return immediately for re-evaluation. Further emergent ED testing is not indicated at this point in time. I discussed with the patient/guardian in detail the need to arrange with the PCP or specialist further outpatient testing, MRI, Based on the history and exam findings, there is no indication for further emergent testing or inpatient evaluation. I discussed with the patient/guardian the need to see the orthopedic surgeon for further evaluation of the symptoms. ED course: Patient with questionable fracture of the foot. Radiologist reads is also possible osteo or just arthritis, recommended MRI, spoke with patient and recommended MRI today in emergency room, MRI ordered but patient is not sure if her hardware is MRI safe and would rather not get the MRI at this time. Will place patient in boot and treat as possible fracture and patient states will make an appointment with her orthopedist later this week or next week for further evaluation. Return precautions given and understood.. 16:02 ED course: Not likely osteomyelitis due to onset of pain was acute when patient was rn stepping on it and denies subacute or chronic symptoms.. 05/03 14:34 Order name: XRAY Foot LEFT 3 View; Complete Time: 15:44 rn 05/03 16:03 Order name: Walking boot; Complete Time: 16:40 rn Administered Medications: 15:39 Drug: HYDROcodone-acetaminophen PO 10 mg-325 mg 1 tabs PO once Route: PO; db Disposition Summary: 05/03/24 16:02 Discharge Ordered Notes: Location: Home rn Problem: new rn Symptoms: have improved rn Condition: Stable rn Diagnosis - Possible calcaneal fracture, closed, left foot rn Followup: rn - With: Private Physician - When: 2 - 3 days - Reason: Recheck today's complaints, Re-evaluation by your physician Discharge Instructions: - Discharge Summary Sheet rn - Foot Contusion rn - Foot Pain rn Forms: - Medication Reconciliation Form rn - Antibiotic glass furnace tender - Prescription Opioid Use rn - Patient Portal Instructions rn - Leadership Thank You Letter rn Signatures: Dispatcher [employer] Aneudy Javier MD MD rn Benton, Danielle, RN RN db
== END 2024-05-03 16:41 | disposition home or self-care (01) ==
LOC: ER 14:19
DX: M79.672 Pain in left foot (principal)
CPT/HCPCS: 99283